=== PATIENT | male | born 1960 | race Caucasian/White ===

== ENCOUNTER → 2016-05-01 | Outpatient (CLI) | payer MEDICARE, MEDICAID ==
[~2016-05-01] MED LIST: AC325T PO; ACET-93 PO; AMOX500C2 PO; ARIP10TA2 PO; BENZ2TAB6 PO; BETH50TA PO; CALC-671 PO; CALC500T7 PO; CLAR-19 PO; DESM0.2T2 PO; DIVA-20; DIVA250T12 PO; DIVA250T2; DIVA500T15 PO; DOCU100C PO; GUAI100S PO; HYDR-3812 PO; LACT1CAP39 PO; LORA10CA PO; LORA10TA2; LUBI24CA7; NAPR500T3 PO; NF-FLON16G NSEACH; NITR-65 PO; OMEP20CA12 PO; PNV1TABL61 PO; POLY17PO23 GT; POLY255P PO; PREG25CA PO; PREG50C PO; SENN1TAB76 PO; TRIH5TAB2 PO; [UNRECOGNIZED DRUG - CODE] PO; [UNRECOGNIZED DRUG - OTHER]; [UNRECOGNIZED DRUG - OTHER] OU
--- NOTE | 2016-05-01 11:20 | Diagnostic Imaging Report ---
PROCEDURE: US Gallbladder. TECHNIQUE: Multiple real-time grayscale images were obtained over the right upper quadrant in various projections. INDICATION: Abdominal pain. FINDINGS: The pancreas is obscured. The liver demonstrate no focal mass. Hepatopedal flow in the portal vein seen. The CBD is obscured by bowel gas. The gallbladder is not seen. This is uncertain if the gallbladder is obscured or potentially related to prior cholecystectomy. The patient is unable to give a history due to the mental condition. The right kidney is 14 CM in length. Cystic areas in the right kidney are seen. These are potentially in part related to renal cysts however hydronephrosis is not ruled out. No fluid collection is noted in the upper right abdomen. IMPRESSION: 1. The gallbladder is not seen. 2. Simple appearing cystic areas in the renal pelvis are favored to be related to parapelvic cysts rather than hydronephrosis. The distinction is uncertain based on this exam however. 3. Enhanced CT scan of the abdomen is recommended to further evaluate the gallbladder area and the right kidney. Report was faxed to office of Dr Noe by molly at 11:19 am. Dictated by: Dictated on workstation # [id number]
== END ==
LOC: RAD 09:38
PROVIDERS: ATTEND Family Medicine
DX: N28.1 Cyst of kidney, acquired (principal); R10.84 Generalized abdominal pain
CPT/HCPCS: 76705

== ENCOUNTER → 2016-05-06 | Outpatient (CLI) | payer MEDICARE, MEDICAID ==
--- NOTE | 2016-05-06 13:20 | Diagnostic Imaging Report ---
PROCEDURE: CT abdomen and pelvis without contrast. TECHNIQUE: Multiple contiguous axial images were obtained through the abdomen and pelvis without the use of intravenous contrast. INDICATION: Generalized abdominal pain with nausea and vomiting. COMPARISON: None. DISCUSSION: The visualized lung bases are unremarkable. Subsegmental atelectasis is present, incidental. Normal heart size. No pleural or pericardial fluid. Contracted stone-filled gallbladder. No secondary inflammatory changes are otherwise identified by CT. Examination of the liver is somewhat limited due to respiratory motion. The liver, stomach, spleen, pancreas, and adrenal glands are unremarkable. Severe bilateral hydronephrosis and hydroureter. The urinary bladder is markedly distended. Suspect postoperative changes of the prostate gland. No renal stone identified. The aorta is normal in caliber. Marked constipation is present. No obstruction, pneumatosis, or pneumoperitoneum. No ascites or pathologically enlarged lymph nodes identified. No acute osseous abnormality identified. Postoperative changes of the right hip are incompletely viewed. IMPRESSION: 1. Severe bilateral hydronephrosis and hydroureter with distention of the urinary bladder. Recommend clinical correlation. No stone identified. 2. Marked constipation. 3. Contracted stone-filled gallbladder. Dictated by: Dictated on workstation # [id number]
== END ==
LOC: RAD 12:00
PROVIDERS: ATTEND Family Medicine
DX: R10.11 Right upper quadrant pain (principal); R74.8 Abnormal levels of other serum enzymes
CPT/HCPCS: 74176

== ENCOUNTER 2016-05-30 11:28 | Emergency (ER) | payer MEDICARE, MEDICAID ==
[~2016-05-30] VITALS: Ht 167.6 cm; Wt 83.9 kg
[~2016-05-30 11:28] MED LIST changes: -ACET-93 PO; -AMOX500C2 PO; -CLAR-19 PO; -DIVA250T12 PO; -DIVA500T15 PO; -NITR-65 PO; -OMEP20CA12 PO; -POLY255P PO
[2016-05-30] MEDS ORDERED: NS IV 1000 ML 1,000 ML IV ONE (12:32)
[2016-05-30 12:37] LABS: BASOPHILS % (AUTO) 0 % (0-10); EOSINOPHILS # (AUTO) 0.1 10^3/uL (0.0-0.3); EOSINOPHILS % (AUTO) 3 % (0-10); LYMPHOCYTES # (AUTO) 0.5 X 10^3 (1.0-4.0); LYMPHOCYTES % (AUTO) 11 % (12-44); MEAN CORPUSCULAR HEMOGLOBIN 32 PG (25-34); MEAN CORPUSCULAR HGB CONC 34 G/DL (32-36); MEAN CORPUSCULAR VOLUME 96 FL (80-99); MEAN PLATELET VOLUME 10.5 FL (7.4-10.4); MONOCYTES # (AUTO) 0.6 X 10^3 (0.0-1.0); MONOCYTES % (AUTO) 12 % (0-12); NEUTROPHILS # (AUTO) 3.5 X 10^3 (1.8-7.8); NEUTROPHILS % (AUTO) 74 % (42-75); PLATELET COUNT 144 10^3/uL (130-400); RED BLOOD COUNT 3.37 10^6/uL (4.35-5.85); RED CELL DISTRIBUTION WIDTH 13.7 % (10.0-14.5); WHITE BLOOD COUNT 4.8 10^3/uL (4.3-11.0)
--- NOTE | 2016-05-30 12:46 | ED Abdominal Pain ---
General Chief Complaint: Abdominal/GI Problems Stated Complaint: DIARRHEA/ABD PAIN FEVER Nursing Triage Note: PT STAFF REPORTS PT WAS VOMITING AND COMPLAINING OF ABDOMINAL PAIN YESTERDAY. PT DENIES ABDOMINAL PAIN OR VOMITING TODAY BUT DOES HAVE LOW GRADE FEVER. PT IS SCHEDULED FOR GALLBLADDER REMOVAL NEXT FRIDAY DUE TO POSSIBLE GALLSTONES. Sepsis Screen: Possible Sepsis Risk History of Present Illness Time Seen By Provider: 12:30 Initial Comments Evaluation for diarrhea that began yesterday evening. Last episode approximately one hour prior to arrival. Patient is scheduled to have a cholecystectomy on 06/07/[address] Beatty. In addition the caregivers report that the left foot has been swollen today. They denies injury to the foot. Timing/Duration: 12-24 Hours Severity/Quality: Moderate Location: Generalized Abdomen Radiation: No Radiation Activities at Onset: None Modifying Factors: Improves With Lying down, Improves With Resting Associated Symptoms: Denies Symptoms Allergies and Home Medications Allergies Coded Allergies: lorazepam (Unverified Adverse Reaction, Intermediate, HYPERACTIVITY, 01/25) Home Medications Acetaminophen 325 Mg Tab, 500 MG PO PRN, (Reported) [place] 650 Mg Tablet, 650 MG PO QID, (Reported) Aripiprazole 10 Mg Tablet, 10 MG PO DAILY, (Reported) Benztropine Mesylate 2 Mg Tablet, 2 MG PO BID, (Reported) Bethanechol Chloride 50 Mg Tablet, 50 MG PO Q8H, (Reported) Calcium Carbonate 200 Mg Tab.chew, 200 MG PO PRN PRN for HEARBURN, (Reported) Calcium Carbonate/Vitamin D3 1 Each Tablet, (Reported) Desmopressin Acetate 0.2 Mg Tablet, 3 TAB PO HS, (Reported) Divalproex Sodium 500 Mg Tablet., (Reported) Divalproex Sodium 250 Mg Tablet., (Reported) Docusate Sodium 100 Mg Capsule, (Reported) Fluticasone Propionate 50 Mcg/16 G [place], 2 SPRAY NS HS PRN for PRN, (Reported) Lactobacillus Rhamnosus 1 Cap Capsule, 1 CAP PO DAILY PRN for stools, (Reported) Loratadine 10 Mg Capsule, 10 MG PO HS, (Reported) Naproxen 500 Mg Tablet, 500 MG PO BID, #20 Prescribed by: TONYA BLOOD on 10/25/15 1259 Nitrofurantoin Monohyd/M-Cryst 100 Mg Capsule, 1 TAB PO BID for 7 Days, #14 Prescribed by: GENE CASTORENA on 05/30/16 1532 Pnv With Ca,No.72/Iron,Carb/Fa 1 Each Tablet, 1 EACH PO DAILY, (Reported) Polyethylene Glycol 17 Gm Pack, 17 GM GT DAILY, (Reported) Pregabalin 50 Mg Capsule, 50 MG PO BID, (Reported) Pregabalin 25 Mg Capsule, 25 MG PO HS, (Reported) Senna 1 Tab Tablet, (Reported) Trihexyphenidyl Hcl 5 Mg Tablet, 5 MG PO DAILY, (Reported) [Opcon A Opthalmic] , 2 DROPS OU PRN, (Reported) Review of Systems Constitutional: no symptoms reported, see HPI EENTM: No Symptoms Reported, See HPI Respiratory: No Symptoms Reported, See HPI Cardiovascular: See HPI Gastrointestinal: See HPI, Abdomen Distended, Abdominal Pain, Diarrhea, Nausea , Poor Appetite, Denies Vomiting Genitourinary: No Symptoms Reported, See HPI Musculoskeletal: see HPI, joint swelling (left foot) Skin: no symptoms reported, see HPI Psychiatric/Neurological: No Symptoms Reported, See HPI Endocrine: No Symptoms Reported, See HPI Hematologic/Lymphatic: No Symptoms Reported, See HPI All Other Systems Reviewed Negative Unless Noted: Yes Past Vlklhux-Bomroz-Dhywye Hx Patient Social History Alcohol Use: Denies Use Recreational Drug Use: No Smoking Status: Never a Smoker Recent Foreign Travel: No Contact w/Someone Who Travel: No Recent Infectious Disease Expo: No Recent Hopitalizations: No Immunizations Up To Date Tetanus Booster (TDap): Less than 5yrs Date of Influenza Vaccine: Jan 08, 2016 Seasonal Allergies Seasonal Allergies: Yes Surgeries HX Surgeries: Yes (SURGERY ON ALL LEFT TOES, COLONOSCOPY) Surgeries: Orthopedic Respiratory Hx Respiratory Disorders: No Cardiovascular Hx Cardiac Disorders: No Neurological Hx 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, postpolio syndrome) Neurological Disorders: Developmental Disorder, Seizure Disorder Genitourinary Hx Genitourinary Disorders: No Gastrointestinal Hx Gastrointestinal Disorders: Yes Gastrointestinal Disorders: Chronic Constipation, Chronic Diarrhea Musculoskeletal Hx Musculoskeletal Disorders: Yes (POLIO) Endocrine Hx Endocrine Disorders: No HEENT HX ENT Disorders: No Cancer Hx Cancer: No Psychosocial Hx Psychiatric Problems: Yes (MR, SEVERE ADAPTIVE BEHAVIOR DISORDER, CONVULSIONS, DELUSIONAL DISORDER) Behavioral Health Disorders: Anxiety Integumentary HX Skin/Integumentary Disorder: No Blood Transfusions Hx Blood Disorders: No Adverse Reaction to a Blood Tr: No Physical Exam Vital Signs VS - Last 72 Hours, by Label 05/30/16 12:06 Temp 99.7 Pulse 108 Resp 20 B/P (MAP) 137/87 Pulse Ox 93 Capillary Refill : Less Than 3 Seconds General Appearance: WD/WN, no apparent distress HEENT: PERRL/EOMI, normal ENT inspection, TMs normal, pharynx normal Neck: non-tender, full range of motion, supple, normal inspection Respiratory: chest non-tender, lungs clear Cardiovascular: normal peripheral pulses, regular rate, rhythm, no murmur Gastrointestinal: normal bowel sounds, non tender, soft, distended, No guarding , No rebound, No tenderness, other (negative Farfan sign) Extremities: normal range of motion, non-tender Neurologic/Psychiatric: no motor/sensory deficits, alert Skin: normal color, warm/dry, other (up to 2+ pitting edema with moderate warmth, no erythema. No lacerations, ecchymosis or abrasions present. Sensation is intact and symmetric with the right foot) Progress/Results/Core Measures Results/Orders Lab Results Laboratory Tests Test 05/30/16 12:03 05/30/16 12:20 05/30/16 14:39 Range/Units White Blood Count 4.8 4.3-11.0 10^3/uL Red Blood Count 3.37 L 4.35-5.85 10^6/uL Hemoglobin 10.8 L 13.3-17.7 G/DL Hematocrit 32 L 40-54 % Mean Corpuscular Volume 96 80-99 FL Mean Corpuscular Hemoglobin 32 25-34 PG Mean Corpuscular Hemoglobin Concent 34 32-36 G/DL Red Cell Distribution Width 13.7 10.0-14.5 % Platelet Count 144 130-400 10^3/uL Mean Platelet Volume 10.5 H 7.4-10.4 FL Neutrophils (%) (Auto) 74 42-75 % Lymphocytes (%) (Auto) 11 L 12-44 % Monocytes (%) (Auto) 12 0-12 % Eosinophils (%) (Auto) 3 0-10 % Basophils (%) (Auto) 0 0-10 % Neutrophils # (Auto) 3.5 1.8-7.8 X 10^3 Lymphocytes # (Auto) 0.5 L 1.0-4.0 X 10^3 Monocytes # (Auto) 0.6 0.0-1.0 X 10^3 Eosinophils # (Auto) 0.1 0.0-0.3 10^3/uL Basophils # (Auto) 0.0 0.0-0.1 10^3/uL Erythrocyte Sedimentation Rate 45 H 0-30 MM/HR Sodium Level 143 135-145 MMOL/L Potassium Level 3.5 L 3.6-5.0 MMOL/L Chloride Level 105 98-107 MMOL/L Carbon Dioxide Level 30 21-32 MMOL/L Anion Gap 8 5-14 MMOL/L Blood Urea Nitrogen 25 H 7-18 MG/DL Creatinine 1.41 H 0.60-1.30 MG/DL Estimat Glomerular Filtration Rate 52 BUN/Creatinine Ratio 18 Glucose Level 111 H 70-105 MG/DL Calcium Level 8.1 L 8.5-10.1 MG/DL Total Bilirubin 0.5 0.1-1.0 MG/DL Aspartate Amino Transf (AST/SGOT) 54 H 5-34 U/L Alanine Aminotransferase (ALT/SGPT) 91 H 0-55 U/L Alkaline Phosphatase 146 H 40-136 U/L C-Reactive Protein High Sensitivity 15.00 H 0.00-0.50 MG/DL Total Protein 5.8 L 6.4-8.2 G/DL Albumin 3.2 3.2-4.5 G/DL Amylase Level 59 25-125 U/L Lipase 13 8-78 U/L Urine Color YELLOW Urine Clarity CLEAR Urine pH 6 5-9 Urine Specific [place] 1.010 L 1.016-1.022 Urine Protein 1+ H NEGATIVE Urine Glucose (UA) NEGATIVE NEGATIVE Urine Ketones NEGATIVE NEGATIVE Urine Nitrite NEGATIVE NEGATIVE Urine Bilirubin NEGATIVE NEGATIVE Urine Urobilinogen NORMAL NORMAL MG/DL Urine Leukocyte Esterase 2+ H NEGATIVE Urine RBC (Auto) 1+ H NEGATIVE Urine RBC RARE /HPF Urine WBC 10-25 H /HPF Urine Squamous Epithelial Cells 2-5 /HPF Urine Crystals NONE /LPF Urine Bacteria TRACE /HPF Urine Casts NONE /LPF Urine Mucus NEGATIVE /LPF Urine Culture Indicated YES My Orders Orders - GENE CASTORENA Amylase (05/30/16 12:32) Cbc With Automated Diff (05/30/16 12:32) Comprehensive Metabolic Panel (05/30/16 12:32) Hs C Reactive Protein (05/30/16 12:32) Lipase (05/30/16 12:32) Ua Culture If Indicated (05/30/16 12:32) Erythrocyte Sedimentation Rate (05/30/16 12:32) Saline Lock/Iv-Start (05/30/16 12:32) Ns Iv 1000 Ml (Sodium Chloride 0.9%) (05/30/16 12:32) Bismuth Subsalicylate Chew Tab (Pepto-Bi (05/30/16 13:45) Foot, Left, 3 Views (05/30/16 13:53) Urine Culture (05/30/16 14:39) Ceftriaxone Injection (Rocephin Injectio (05/30/16 15:30) Medications Given in ED Current Medications Medications Dose Ordered Sig/Ewelina Route Start Time Stop Time Status Last Admin Dose Admin Bismuth Subsalicylate 1 TAB Q1H PRN PO 05/30/16 13:45 05/30/16 16:48 DC 05/30/16 14:00 262 MG Ceftriaxone Sodium 1,000 mg ONCE ONCE IV 05/30/16 15:30 05/30/16 15:31 DC 05/30/16 15:37 1,000 MG Sodium Chloride 1,000 ml @ 0 mls/hr Q0M ONCE IV 05/30/16 12:32 05/30/16 12:34 DC 05/30/16 14:04 0 MLS/HR Vital Signs/I&O Vital Sign - Last 12Hours 05/30/16 12:06 Temp 99.7 Pulse 108 Resp 20 B/P (MAP) 137/87 Pulse Ox 93 Blood Pressure Mean: 104 Progress Note : Time: 12:30 Progress Note Initial evaluation completed, recommended labs and CT abdomen/pelvis 1245 WBC 4.8, hemoglobin 10.8, hematocrit 32, ESR 45. Sodium 143, potassium 3.5 , urine 25, creatinine 1.41, estimated GFR 52 glucose 111, C-reactive protein 15 , AST 54 a LT 91 alkaline phosphatase 146, amylase 59, lipase 13 1350 Pepto-Bismol one tab by mouth for diarrhea. 1400 x-ray of the left foot show no acute changes. Patient hasn't had no episodes diarrhea since admission to the emergency department. 1500 discussed the patient's laboratory findings and exam with Dr. Noe by phone. She reports that he was recently on Levaquin for urinary tract infection and treated by Dr. Keyes. Agreed with treatment plan of Rocephin 1 g IV prior to discharge and Macrobid 100 mg by mouth twice a day for outpatient treatment. She like to have him follow up next week with her, the patient's caregivers verbalized understanding. Pt had no vomiting or diarrhea throughout his ED visit. Diagnostic Imaging Diagonstic Imaging: Xray, CT, Ultrasound Plain Films/CT/US/NM/MRI: abdomen, pelvis, other (Left foot) Comments NAME: [facility] REC#: [id number] PT STATUS: REG CLI : 1960 PHYSICIAN: SETH NOE DO ADMIT DATE: 05/06/16/RAD Signed Date of Exam: 05/06/16 CT ABDOMEN/PELVIS WO PROCEDURE: CT abdomen and pelvis without contrast. TECHNIQUE: Multiple contiguous axial images were obtained through the abdomen and pelvis without the use of intravenous contrast. INDICATION: Generalized abdominal pain with nausea and vomiting. COMPARISON: None. DISCUSSION: The visualized lung bases are unremarkable. Subsegmental atelectasis is present, incidental. Normal heart size. No pleural or pericardial fluid. Contracted stone-filled gallbladder. No secondary inflammatory changes are otherwise identified by CT. Examination of the liver is somewhat limited due to respiratory motion. The liver, stomach, spleen, pancreas, and adrenal glands are unremarkable. Severe bilateral hydronephrosis and hydroureter. The urinary bladder is markedly distended. Suspect postoperative changes of the prostate gland. No renal stone identified. The aorta is normal in caliber. Marked constipation is present. No obstruction, pneumatosis, or pneumoperitoneum. No ascites or pathologically enlarged lymph nodes identified. No acute osseous abnormality identified. Postoperative changes of the right hip are incompletely viewed. IMPRESSION: 1. Severe bilateral hydronephrosis and hydroureter with distention of the urinary bladder. Recommend clinical correlation. No stone identified. 2. Marked constipation. 3. Contracted stone-filled gallbladder. Dictated by: Dictated on workstation # [id number] Dict: 05/06/16 1314 Trans: 05/06/16 1940 [id number] Interpreted by: RASHAD PALACIOS MD Electronically signed by:RASHAD PALACIOS MD 05/06/161942 NAME: [facility] REC#: [id number] PHYSICIAN: SETH NOE DO CC: SETH NOE DO; BRADLEY NAQVI MD Page 2 of 2 RADIOLOGY REPORT VIA [facility], [facility]. [place], [place] CC: SETH NOE DO; BRADLEY NAQVI MD Page 1 of 2 RADIOLOGY REPORT NAME: [facility] REC#: [id number] PT STATUS: REG CLI : 1960 PHYSICIAN: SETH NOE DO ADMIT DATE: 05/01/16/RAD Signed Date of Exam: 05/01/16 US GALLBLADDER [id number] PROCEDURE: US Gallbladder. TECHNIQUE: Multiple real-time grayscale images were obtained over the right upper quadrant in various projections. INDICATION: Abdominal pain. FINDINGS: The pancreas is obscured. The liver demonstrate no focal mass. Hepatopedal flow in the portal vein seen. The CBD is obscured by bowel gas. The gallbladder is not seen. This is uncertain if the gallbladder is obscured or potentially related to prior cholecystectomy. The patient is unable to give a history due to the mental condition. The right kidney is 14 CM in length. Cystic areas in the right kidney are seen. These are potentially in part related to renal cysts however hydronephrosis is not ruled out. No fluid collection is noted in the upper right abdomen. IMPRESSION: 1. The gallbladder is not seen. 2. Simple appearing cystic areas in the renal pelvis are favored to be related to parapelvic cysts rather than hydronephrosis. The distinction is uncertain based on this exam however. 3. Enhanced CT scan of the abdomen is recommended to further evaluate the gallbladder area and the right kidney. Report was faxed to office of Dr Noe by franco at 11:19 am. Dictated by: Dictated on workstation # [id number] Dict: 05/01/16 1103 Trans: 05/01/16 1123 FRANCO [id number] Interpreted by: BRADLEY NAQVI MD Electronically signed by:BRADLEY NAQVI MD 05/01/16 1126 NAME: [facility] REC#: [id number] PT STATUS: REG ER : 1960 PHYSICIAN: GENE CASTORENA ADMIT DATE: 05/30/16/ER Draft Date of Exam:05/30/16 FOOT, LEFT, 3 VIEWS INDICATION: Pain. Swelling. Fever. COMPARISON: 11/10/2015. FINDINGS: Three radiographic views of the left foot were obtained. There is diffuse soft tissue swelling. Old healed oblique fracture involving the distal margins of the second metatarsal is noted. No acute-appearing bony abnormalities are identified. Joint spaces are maintained. No lytic or blastic lesions are identified. Deformity of the fifth toe is also noted, but is chronic. No unexpected radiopaque foreign bodies are seen. IMPRESSION: 1. Moderate soft tissue swelling of the left foot, but no radiographic evidence of acute fracture or dislocation. 2. Old healed fracture of the second metatarsal. Dictated on workstation # [id number] Dict: 05/30/16 1422 Trans: 05/30/16 1431 [id number] Interpreted by: BRIAN FIORE Electronically signed by: Departure Impression Impression: Primary Impression: Urinary tract infection Qualified Codes: N30.01 - Acute cystitis with hematuria Additional Impression: Diarrhea Qualified Codes: R19.7 - Diarrhea, unspecified Disposition: HOME, SELF-CARE Condition: Improved Departure-Patient Inst. Decision time for Depature: 15:00 Referrals: SETH NOE DO (PCP/Family) Primary Care Physician Patient Instructions: Gastritis (DC), Urinary Tract Infection, Adult (DC) Add. Discharge Instructions: All discharge instructions reviewed with patient and/or family. Voiced understanding. Clear liquid diet 4 hours then a bland diet for 2 days. Return to emergency department or see Dr. NOE for changes in symptoms. Follow up on May [address] Noe. Keep at Walt wrap on left foot and ankle, keep elevated. Return to emergency department or seek care if left foot becomes more swollen, red, or painful. Scripts Nitrofurantoin Monohyd/M-Cryst (Macrobid 100 mg Capsule) 100 Mg Capsule 1 TAB PO BID for 7 Days, #14 CAP Prov: GENE CASTORENA 05/30/16 Copy Copies To 1: SETH NOE DO Copies To 2: ANGELA BEATTY MD, AMY ARNP May 30, 2016 12:46
[2016-05-30 12:50] LABS: ALBUMIN 3.2 G/DL (3.2-4.5); BILIRUBIN,TOTAL 0.5 MG/DL (0.1-1.0); CALCIUM 8.1 MG/DL (8.5-10.1); CREATININE SERUM 1.41 MG/DL (0.60-1.30); POTASSIUM 3.5 MMOL/L (3.6-5.0); TOTAL PROTEIN 5.8 G/DL (6.4-8.2)
[2016-05-30 13:07] LABS: ERYTHROCYTE SEDIMENTATION RATE 45 MM/HR (0-30)
[2016-05-30] MEDS ORDERED: BISMUTH SUBSALICYLATE 262 MG (PEPTO BISMOL) TABLET PO PRN (13:45)
--- NOTE | 2016-05-30 14:32 | Diagnostic Imaging Report ---
INDICATION: Pain. Swelling. Fever. COMPARISON: 11/10/2015. FINDINGS: Three radiographic views of the left foot were obtained. There is diffuse soft tissue swelling. Old healed oblique fracture involving the distal margins of the second metatarsal is noted. No acute-appearing bony abnormalities are identified. Joint spaces are maintained. No lytic or blastic lesions are identified. Deformity of the fifth toe is also noted, but is chronic. No unexpected radiopaque foreign bodies are seen. IMPRESSION: 1. Moderate soft tissue swelling of the left foot, but no radiographic evidence of acute fracture or dislocation. 2. Old healed fracture of the second metatarsal. Dictated by: Dictated on workstation # [id number]
[2016-05-30 14:45] LABS: BILIRUBIN,URINE NEGATIVE (NEGATIVE); KETONES,URINE NEGATIVE (NEGATIVE); LEUKOCYTE ESTERASE ,URINE 2+ (NEGATIVE); NITRITE,URINE NEGATIVE (NEGATIVE); PH,URINE 6 (5-9); PROTEIN,URINE 1+ (NEGATIVE); UROBILINOGEN,URINE NORMAL (NORMAL)
[2016-05-30] MEDS ORDERED: cefTRIAXone 1 GM (ROCEPHIN) VIAL IV ONE (15:30)
[2016-05-30] MEDS ORDERED: NITR-65 PO (15:32)
[2016-05-30 16:48] VITALS: BP 120/70
--- OUTSIDE RECORDS SUMMARY | 2016-06-23 06:13 | XMS REPORT ---
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 Problem Unspecified psychosis 298.9 Active Assessment Encounter for dental examination Z01.20 Active Problem Other dysfunctions of sleep stages or arousal from sleep 307.47 Active Problem Unspecified episodic mood disorder 296.90 Active Problem Encounter for dental examination Z01.20 Active Problem Acute pain due to trauma 338.11 Active Problem Unspecified mental retardation 319 Active Problem Delusional disorder 297.1 Active Problem Impulse control disorder, unspecified 312.30 Active Medications Medication Code System Code Instructions Start Date End Date Status Dosage Depakote [facility] [address]-82 250 MG Orally Once a day 1 tablet Bethanechol Chloride [facility] [address]-44 50 MG Orally 4 times a day 1 tablet on an empty stomach Calcium 600 + D [facility] 29322-36757 600-200 MG-UNIT Orally not defined Acetaminophen [facility] [address]-84 500 mg Nov 20, 2012 1 Tablet by Oral route q4hrs prn pain Opcon-A [facility] 16324-24157 0.53392-9.315 % Nov 20, 2012 1-2 drop by opthalmac route prn redness and swelling of eyes from allergies Lyrica [facility] [address]-60 50 MG Orally Three times a day 1 capsule Polyethylene Glycol 3350 [facility] [address]-59 17 gram Apr 14, 2014 2 times per day Xanax [facility] [address]-96 1 MG Orally Once a day prior to medical appts May 27, 2014 1 tablet Lyrica [facility] 53822828653 25 MG TAKE 1 CAPSULE ORALLY EVERY EVENING 1 Plus 1 NDC 0 not defined Loratadine [facility] [address]-49 10 mg Nov 20, 2011 1 Tablet by Oral route 1 time per day Culturelle [facility] 136[address]92 Apr 14, 2014 by oral route po qd prn for healthy BMs Nystatin [facility] [address]-80 840628 UNIT/GM Externally Twice a day 1 application to affected area Trihexyphenidyl HCl [facility] [address]-93 5 MG Orally 2 times a day 1 tablet with meals Abilify [facility] [address]-92 10 MG Orally Once a day 1 tablet Ketoconazole [facility] [address]-79 2 % Externally not defined Tums [facility] [address]-43 500 MG Orally Four times a day 1 tablet Docusate Sodium [facility] [address]-47 100 mg Nov 20, 2011 1 Capsule by Oral route 2 times per day Depakote [facility] [address]-15 500 MG Orally Twice a day 1 tablet Senna-S [facility] [address]-69 Orally 2 times a day Apr 14, 2014 2 tablets fluticasone [facility] [address]-73 50 mcg/actuation Apr 14, 2014 2 Nasal [place] by Nasal route 1 time per day [facility] Procedures Procedure Coding System Code Date PROPHYLAXIS - ADULT CPT-4 D1110 Mar 16, 2015 TOPICAL FLUORIDE VARNISH CPT-4 D1206 Mar 16, 2015 PERIODIC ORAL EXAMINATION CPT-4 D0120 Mar 16, 2015 Vital Signs Date/Time: Mar 16, 2015 Blood Pressure Diastolic 82 mmHg Blood Pressure Systolic 124 mmHg Cardiac Monitoring Heart Rate 95 bpm Results No Known Results Summary Purpose eClinicalWorks Submission
--- OUTSIDE RECORDS SUMMARY | 2016-06-23 06:13 | XMS REPORT ---
Author Author ARGENTINA BARKER [facility] eClinicalWorks Address Unknown Phone Unavailable Care Team Providers Care Platen Press Feeder Name Role Phone ARGENTINA BARKER CP Unavailable Allergies, Adverse Reactions, Alerts Substance Reaction Event Type Ativan "hyper" Drug Allergy Problems Problem Type Condition Code Onset Dates Condition Status Assessment Unspecified mood [affective] disorder F39 Active Problem Unspecified psychosis 298.9 Active Problem Encounter for long-term (current) use of other medications V58.69 Active Assessment Unspecified intellectual disabilities F79 Active Assessment Psychosis F29 Active Problem Unspecified episodic mood disorder 296.90 Active Problem Delusional disorder 297.1 Active Problem Other dysfunctions of sleep stages or arousal from sleep 307.47 Active Problem Unspecified mental retardation 319 Active Problem 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 [address]-24 250 MG Orally Once a day [address] [facility] [address]-01 10 MG Orally Once a day [address] [facility] 89426993760 25 MG TAKE 1 CAPSULE ORALLY EVERY EVENING Calcium 600 + D [facility] 36906-95256 600-200 MG-UNIT Orally not defined Polyethylene Glycol 3350 [facility] [address]-43 17 gram Apr 14, 2014 2 times per day Acetaminophen [facility] [address]-81 500 mg Nov 20, 2012 1 Tablet by Oral route q4hrs prn pain Lyrica [facility] [address]-28 50 MG Orally Three times a day [address] [facility] [address]-47 1 MG Orally Once a day prior to medical appts May 27, [address] [facility] [address]-50 5 MG Orally 2 times a day 1 tablet with meals Opcon-A [facility] 00668-[address]35 0.57473-5.315 % Nov 20, 2012 1-2 drop by opthalmac route prn redness and swelling of eyes from allergies Tums [facility] [address]-70 500 MG Orally Four times a day 1 tablet 1 Plus 1 NDC [address] [facility] [address]-79598 Apr 14, 2014 by oral route po qd prn for healthy BMs fluticasone [facility] [address]-91 50 mcg/actuation Apr 14, 2014 2 Nasal [place] by Nasal route 1 time per day qHS Bethanechol Chloride [facility] [address]-43 50 MG Orally 4 times a day 1 tablet on an empty stomach Loratadine [facility] [address]-58 10 mg Nov 20, 2011 1 Tablet by Oral route 1 time per day Ketoconazole [facility] [address]-09 2 % Externally not defined Tussin [facility] [address]609-38818 100 MG/5ML Orally every 4 hrs 10 ml as needed Senna-S [facility] [address]-46 Orally 2 times a day Apr 14, [address] [facility] [address]-66 500 MG Orally Twice a day [address] [facility] [address]-97 100 mg Nov 20, 2011 1 Capsule by Oral route 2 times per day Nystatin [facility] [address]-15 725542 UNIT/GM Externally Twice a day 1 application to affected area Procedures Procedure Coding System Code Date Office Visit, Est Pt., Level 3 CPT-4 30456 Dec 27, 2014 Vital Signs Date/Time: Dec 27, 2014 Blood Pressure Systolic 120 mmHg Cardiac Monitoring Heart Rate 80 bpm Height 70 in Blood Pressure Diastolic 80 mmHg Results No Known Results Summary Purpose eClinicalWorks Submission
--- OUTSIDE RECORDS SUMMARY | 2016-06-23 06:13 | XMS REPORT ---
Author Author JOVANNY BURGOS eClinicalWorks Address Unknown Phone Unavailable Care Team Providers Care Afterschool Name Role Phone JOVANNY BURGOS CP Unavailable Allergies No Known Allergies Problems Problem Type Condition ICD-9 Code Onset Dates Condition Status Assessment Dental examination V72.2 Active Problem Unspecified psychosis 298.9 Active Problem Encounter for long-term (current) use of other medications V58.69 Active Problem Unspecified episodic mood disorder 296.90 Active Problem Delusional disorder 297.1 Active Problem Other dysfunctions of sleep stages or arousal from sleep 307.47 Active Problem Unspecified mental retardation 319 Active Problem 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
--- OUTSIDE RECORDS SUMMARY | 2016-06-23 06:13 | XMS REPORT ---
Author Author ANNA MULLER Organization eClinicalWorks Address Unknown Phone Unavailable Care Team Providers Care Program Management Manager Name Role Phone ANNA MULLER CP Unavailable Allergies No Known Allergies Problems Problem Type Condition Code Onset Dates Condition Status Problem Unspecified psychosis 298.9 Active Problem Encounter [...] trauma 338.11 Active Medications No Known Medications Results No Known Results Summary Purpose eClinicalWorks Submission
--- OUTSIDE RECORDS SUMMARY | 2016-06-23 06:13 | XMS REPORT ---
Author TERRA Crawley [facility] eClinicalWorks Address Unknown Phone Unavailable Care Team Providers Care Public Health Director Name Role Phone TERRA GRAF CP Unavailable Allergies No Known Allergies Problems Problem Type Condition Code Onset Dates Condition Status Assessment Encounter for PPD test Z11.1 Active Problem Unspecified psychosis 298.9 Active Problem Encounter for long-term (current) use of other medications V58.69 Active Assessment Encounter for immunization Z23 Active Problem Unspecified episodic mood disorder 296.90 Active Problem Delusional disorder 297.1 Active Problem Other dysfunctions of sleep stages or arousal from sleep 307.47 Active Problem Unspecified mental retardation 319 Active Problem 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
--- OUTSIDE RECORDS SUMMARY | 2016-06-23 06:13 | XMS REPORT ---
Author TERRA Crawley [facility] eClinicalWorks Address Unknown Phone Unavailable Care Team Providers Care Motorcycle Mechanic Name Role Phone TERRA GRAF CP Unavailable Allergies No Known Allergies Problems Problem Type Condition Code Onset Dates Condition Status Assessment Encounter for immunization Z23 Active Problem Unspecified psychosis 298.9 Active Problem [...] Medications Procedures Procedure Coding System Code Date SINGLE IMMUNIZATION ADMIN CPT-4 72148 Mar 13, 2015 HEP B (ADULT) CPT-4 77364 Mar 13, 2015 Results No Known Results Immunizations Vaccine Administration Date HEP B (ADULT) Mar 13, 2015 Summary Purpose eClinicalWorks Submission
--- OUTSIDE RECORDS SUMMARY | 2016-06-23 06:14 | XMS REPORT ---
Author Author ARGENTINA BARKER Organization eClinicalWorks Address Unknown Phone Unavailable Care Team Providers Care Html Web Developer Name Role Phone ARGENTINA BARKER CP Unavailable Allergies No Known Allergies Problems Problem Type Condition ICD-9 Code Onset Dates Condition Status Problem Unspecified [...]
--- OUTSIDE RECORDS SUMMARY | 2016-06-23 06:14 | XMS REPORT ---
Author Author ARGENTINA BARKER Organization eClinicalWorks Address Unknown Phone Unavailable Care Team Providers Care Civil Lawyer Name Role Phone ARGENTINA BARKER Unavailable Allergies No Known Allergies Problems Problem [...] Instructions Start Date End Date Status Dosage Lyrica NDC [address]-11 25 MG TAKE 1 CAPSULE ORALLY EVERY EVENING Lyrica NDC [address]-70 50 MG TAKE 1 CAPSULE ORALLY EVERY MORNING Results No Known Results Summary Purpose eClinicalWorks Submission
--- OUTSIDE RECORDS SUMMARY | 2016-06-23 06:14 | XMS REPORT ---
Author JOVANNY Venegas eClinicalWorks Address Unknown Phone Unavailable Care Team Providers Care Councillor [employer] Name Role Phone JOVANNY BURGOS CP Unavailable [...] Instructions Start Date End Date Status Dosage Bethanechol Chloride [facility] [address]-04 50 MG Orally 4 times a day 1 tablet on an empty stomach Benztropine Mesylate [facility] [address]-07 2 MG Orally Once a day 1 tablet at bedtime fluticasone [facility] [address]-30 50 mcg/actuation Apr 14, 2014 2 Nasal [place] by Nasal route 1 time per day qHS [place] [facility] 15[address]-26052 650 MG Orally not defined Desmopressin Acetate [facility] [address]-15 0.2 MG Orally 3 times a day 1 tablet Calcium 600 + D [facility] 72607-38213 600-200 MG-UNIT Orally not defined Abilify [facility] [address]-09 10 mg Orally Once a day 1 tablet Senna-S [facility] [address]-20 Orally 2 times a day Apr 14, [address] [facility] [address]-27 2 % Externally not defined Polyethylene Glycol 3350 [place] 0 17 gram Apr 14, 2014 2 times per day Triple Antibiotic [facility] [address]-53 5-400-5000 Externally Once a day 1 application to affected area Benadryl [facility] [address]-70 25 MG Orally every 6 hrs 1 capsule as needed Pepto-Bismol [facility] 53281-70154 262 MG Orally 8 time(s) a day 2 tablets as needed Lyrica [facility] [address]-11 25 MG [place] to sign for Dr. Link TAKE 1 CAPSULE ORALLY EVERY EVENING Lyrica [facility] [address]-69 50 MG Orally Once a day in the AM 1 capsule Gold Rosario Foot Powder Max [facility] [address]605 Externally not defined Throat Lozenges ND 0 Mouth/Throat not defined Tums [facility] [address]-99 500 MG Orally Four times a day [address] [facility] 58393050481 250 MG Orally every 24 hours one [address] [facility] 65796827845 500 MG Orally Twice a day [address] [facility] [address]-16 0.5 % Externally Twice a day 1 application to affected area Tussin [facility] 26466-27297 100 MG/5ML Orally every 4 hrs 10 ml as needed Loratadine [facility] [address]-16 10 mg Nov 20, 2011 1 Tablet by Oral route 1 time per day Xanax [facility] [address]-33 1 MG Orally Once a day prior to medical appts May 27, 2014 1 tablet Opcon-A [facility] 78788-85426 0.23804-8.315 % Nov 20, 2012 1-2 drop by opthalmac route prn redness and swelling of eyes from allergies Calamine [facility] [address]-95 Externally not defined Mucinex [facility] [address]-31 600 MG Orally every 12 hrs 1 tablet as needed Culturelle [facility] 48815-40512 Apr 14, 2014 by oral route po qd prn for healthy BMs Docusate Sodium [facility] [address]-63 100 mg Nov 20, 2011 1 Capsule by Oral route 2 times per day Acetaminophen [facility] [address]-49 500 mg Nov 20, 2012 1 Tablet by Oral route q4hrs prn pain 1 Plus 1 NDC 0 not defined Procedures Procedure Coding System Code Date TOPICAL FLUORIDE VARNISH CPT-4 D1206 Dec 12, 2015 PROPHYLAXIS - ADULT CPT-4 D1110 Dec 12, 2015 Vital Signs Date/Time: Dec 12, 2015 Blood Pressure Diastolic 78 mmHg Blood Pressure Systolic 124 mmHg Results No Known Results Summary Purpose eClinicalWorks Submission
--- OUTSIDE RECORDS SUMMARY | 2016-06-23 06:14 | XMS REPORT ---
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
--- OUTSIDE RECORDS SUMMARY | 2016-06-23 06:15 | XMS REPORT ---
Author TERRA Crawley [facility] eClinicalWorks Address Unknown Phone Unavailable Care Team Providers Care Plumbing Service Technician Name Role Phone TERRA GRAF CP Unavailable [...] System Code Date SINGLE IMMUNIZATION ADMIN CPT-4 05929 Feb 22, 2015 HEP B (PED/ADOL, 3 DOSE) CPT-4 35361 Feb 22, 2015 Results No Known Results Immunizations Vaccine Administration Date HEP B (PED/ADOL, 3 DOSE) Feb 22, 2015 Summary Purpose eClinicalWorks Submission
--- OUTSIDE RECORDS SUMMARY | 2016-06-23 06:15 | XMS REPORT ---
Author Author DONY CHAMPION Organization eClinicalWorks Address Unknown Phone Unavailable Care Team Providers Care Garment Manufacturer Name Role Phone DONY CHAMPION CP Unavailable Allergies No Known Allergies Problems [...]
--- OUTSIDE RECORDS SUMMARY | 2016-06-23 06:15 | XMS REPORT ---
Author Author ARGENTINA BARKER Organization eClinicalWorks Address Unknown Phone Unavailable Care Team Providers Care Champagne Maker Name Role Phone ARGENTINA BARKER Unavailable Allergies [...] Instructions Start Date End Date Status Dosage Abilify [facility] [address]-77 10 MG Orally Once a day 1 tablet Depakote [facility] [address]-01 250 MG Orally Once a day 1 tablet Depakote [facility] [address]-08 500 MG Orally Twice a day 1 tablet Trihexyphenidyl HCl [facility] [address]-03 5 MG Orally 2 times a day 1 tablet with meals Results No Known Results Summary Purpose eClinicalWorks Submission
--- OUTSIDE RECORDS SUMMARY | 2016-06-23 06:15 | XMS REPORT ---
Author Author DONY CHAMPION Organization eClinicalWorks Address Unknown Phone Unavailable Care Team Providers Care Ivory Carver Name Role Phone DONY CHAMPION CP Unavailable [...] Instructions Start Date End Date Status Dosage Darnell [facility] [address]-87 10 mg Orally Once a day 1 tablet Results No Known Results Summary Purpose eClinicalWorks Submission
--- OUTSIDE RECORDS SUMMARY | 2016-06-23 06:15 | XMS REPORT | Continuity of Care Document ---
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 measurement by test strip 6 5- 9 Specific gravity of urine by test strip 1.010 1.016-1.022 Urine protein assay by test strip, semi-quantitative 1+ NEGATIVE Urine glucose detection by automated test strip NEGATIVE NEGATIVE Erythrocytes detection in urine sediment by light microscopy 1+ NEGATIVE Urine ketones detection by automated test strip NEGATIVE NEGATIVE Urine nitrite detection by test strip NEGATIVE NEGATIVE Urine total bilirubin detection by test strip NEGATIVE NEGATIVE Urine urobilinogen measurement by automated test strip (mass/volume) NORMAL NORMAL Urine leukocyte esterase detection by dipstick 2+ NEGATIVE Automated urine sediment erythrocyte count by microscopy (number/high power field) RARE NRG Automated urine sediment leukocyte count by microscopy (number/high power field ) [HPF] NRG Bacteria detection in urine sediment by light microscopy TRACE NRG Squamous epithelial cells detection in urine sediment by light microscopy 2-5 NRG Crystals detection in urine sediment by light microscopy NONE NRG Casts detection in urine sediment by light microscopy NONE NRG Mucus detection in urine sediment by light microscopy NEGATIVE NRG Complete urinalysis with reflex to culture YES NRG Bacterial urine culture - 05/30/16 14:39 Bacterial urine culture FOOTNOTE NRG Methicillin resistant Staphylococcus aureus (MRSA) screening culture - 13:10 Methicillin resistant Staphylococcus aureus (MRSA) screening culture NEG NRG Encounters ACCT No. Visit Date/Time Discharge Status Pt. Type Provider Facility Loc./Unit Complaint [id number] 05/27/2014 13:13:00 05/27/2014 23: 59:59 CLS Outpatient ARGENTINA BARKER APRN [id number] 04/14/2014 13:00:00 04/14/2014 23: 59:59 CLS Outpatient ARGENTINA BARKER APRN [id number] 11/24/2013 10:27:00 11/24/2013 23: 59:59 CLS Outpatient FREDDIE WALDRON DDS [id number] 10/12/2013 14:39:00 10/12/2013 23: 59:59 CLS Outpatient ARGENTINA BARKER APRN [id number] 09/29/2013 15:03:00 09/29/2013 23: 59:59 CLS Outpatient ANNA MULLER DDS [id number] 04/29/2013 11:39:00 04/29/2013 23: 59:59 CLS Outpatient BRANDON WALDRON DDS [id number] 04/19/2013 09:36:00 04/19/2013 23: 59:59 CLS Outpatient RASHAD GAN MD [id number] 11/20/2012 12:20:00 11/20/2012 23: 59:59 CLS Outpatient DAVID ALVES DO [id number] 04/17/2012 14:26:00 04/17/2012 23: 59:59 CLS Outpatient DAVID ALVES DO [id number] 03/20/2012 12:36:00 03/20/2012 23: 59:59 CLS Outpatient DAVID ALVES DO [id number] 03/20/2012 12:36:00 03/20/2012 23: 59:59 CLS Outpatient DAVID ALVES DO [id number] 02/27/2012 09:38:00 02/27/2012 23: 59:59 CLS Outpatient [id number] 01/21/2012 11:29:00 01/21/2012 23: 59:59 CLS Outpatient [id number] 07/01/2012 18:05:00 Document Registration
--- OUTSIDE RECORDS SUMMARY | 2016-06-23 06:15 | XMS REPORT ---
Author Author DONY CHAMPION Organization [employer] Address Unknown Phone Unavailable Care Team Providers Care Center Aisle Cashier Name Role Phone DONY CHAMPION CP Unavailable [...]
== END 2016-05-30 16:48 | disposition home or self-care (01) ==
LOC: EDUNIT# 11:28 → ER 11:31
DX: N39.0 Urinary tract infection, site not specified (principal); R19.7 Diarrhea, unspecified; K80.20 Calculus of gallbladder without cholecystitis without obstruction; K59.00 Constipation, unspecified; R93.49 Abnormal radiologic findings on diagnostic imaging of other urinary organs; Z79.899 Other long term (current) drug therapy
CPT/HCPCS: 36415; 73630; 80053; 81000; 82150; 83690; 85025; 85652; 86141; 87088; 96361; 96365

== ENCOUNTER 2016-06-03 12:49 | Outpatient (CLI) | payer MEDICARE, MEDICAID ==
[~2016-06-03] VITALS: Ht 167.6 cm; Wt 81.6 kg
[~2016-06-03 12:49] MED LIST changes: +NITR-65 PO
[2016-06-03 14:13] VITALS: BP 133/82
[2016-06-03] MEDS ORDERED: DIVA500T15 PO (14:13)
[2016-06-03] MEDS ORDERED: POLY255P PO (14:13)
[2016-06-03] MEDS ORDERED: ACET-93 PO (14:13)
[2016-06-03] MEDS ORDERED: DIVA250T12 PO (14:13)
== END 2016-06-03 13:10 | disposition home or self-care (01) ==
LOC: PREOP 12:49
PROVIDERS: ATTEND Surgery
DX: Z01.818 Encounter for other preprocedural examination (principal); Z11.2 Encounter for screening for other bacterial diseases; K80.20 Calculus of gallbladder without cholecystitis without obstruction
CPT/HCPCS: 87081

== ENCOUNTER 2016-06-07 06:30 | Day surgery (SDC) | payer MEDICARE, MEDICAID ==
[~2016-06-07] VITALS: Ht 167.6 cm; Wt 81.6 kg
[~2016-06-07 06:30] MED LIST changes: +ACET-93 PO; +DIVA250T12 PO; +DIVA500T15 PO; +POLY255P PO
[2016-06-07] MEDS ORDERED: fentaNYL INJECTION 100 MCG/2 ML AMP ONE (06:56)
[2016-06-07 07:00] VITALS: BP 139/85
[2016-06-07] MEDS ORDERED: BUP/EPI 0.25% 1:200,000 (MARCAINE) 30 ML VIAL ONE (07:12)
[2016-06-07] MEDS ORDERED: metroNIDAZOLE 500 MG/100 ML IVPB (PRE-MIX) IV ONE (07:15)
[2016-06-07] MEDS ORDERED: ceFAZolin 1 GM/NS 50 ML IVPB IV ONE ×2 (07:15)
[2016-06-07] MEDS ORDERED: LACTATED RINGERS 1,000 ML IV ONE ×3 (07:15→09:47)
[2016-06-07] MEDS ORDERED: CLAR-19 PO (07:53)
[2016-06-07] MEDS ORDERED: AMOX500C2 PO (07:53)
[2016-06-07] MEDS ORDERED: OMEP20CA12 PO (07:53)
[2016-06-07] MEDS ORDERED: LACTATED RINGERS 1,000 ML IV PRN (07:55)
[2016-06-07] MEDS ORDERED: FAMOTIDINE 20MG/2ML IV (PEPCID) IV ONE (08:00)
--- NOTE | 2016-06-07 08:12 | Progress Note-Pre Operative ---
Pre-Operative Progress Note H&P Reviewed The H&P was reviewed, patient examined and no changes noted. Date H&P Reviewed: Jun 07, 2016 Time H&P Reviewed: 08:12 Pre-Operative Diagnosis: Gallstones in a contracted gallbladder ANGELA BEATTY MD Jun 07, 2016 8:12 am
[2016-06-07] MEDS ORDERED: proPOfol 200 MG/20 ML (DIPRIVAN) VIAL IV ONE (08:14)
[2016-06-07] MEDS ORDERED: LIDOCAINE PF 2% 10 ML (XYLOCAINE) AMP ONE (08:14)
[2016-06-07] MEDS ORDERED: ONDANSETRON 4 MG/2 ML (SDV) Z0FRAN ONE (08:14)
[2016-06-07] MEDS ORDERED: LIDOCAINE JELLY 2% (XYLOCAINE) 5 ML TUBE ONE (08:14)
[2016-06-07] MEDS ORDERED: ROCURONIUM 50 MG/5 ML (ZEMURON) VIAL IV ONE (08:14)
[2016-06-07] MEDS ORDERED: MIDAZOLAM 2 MG/2 ML (VERSED) VIAL ONE (08:14)
[2016-06-07] MEDS ORDERED: SEVOFLURANE (ULTANE) 15 ML INHAL SOLN ONE ×3 (08:58→09:32)
[2016-06-07] MEDS ORDERED: MEPERIDINE (DEMEROL) INJ 50 MG/ML ONE (09:28)
[2016-06-07] MEDS ORDERED: morphine INJ 10 MG/ML 1ML (SYR OR VIAL) ONE ×2 (09:28)
[2016-06-07] MEDS ORDERED: HYDR-3812 PO (09:35)
--- NOTE | 2016-06-07 09:35 | Progress Note-Post Operative ---
Post-Operative Progess Note Surgeon (s)/Proposal Editor (s) Surgeon ANGELA BEATTY MD Proposal Editor: Candie Pre-Operative Diagnosis Gallstones in a contracted gallbladder Post-Operative Diagnosis Same Post-Op Procedure Note Date of Procedure: Jun 07, 2016 Name of Procedure Performed: Lap.Cholecystectomy Description of the Procedure: See op note Findings of the Procedure Thick and contracted GB Anesthesia Type G.A Estimated blood loss (mL): Minimal Specimen(s) collected/removed Gb ANGELA BEATTY MD Jun 07, 2016 9:35 am
--- NOTE | 2016-06-07 09:37 | Discharge Inst-Simple/Standard ---
Discharge Inst-Standard Discharge Medications New, Converted or Re-Newed RX: RX on Chart Patient Instructions/Follow Up Plan of Care/Instructions/FU: Dressings off in 48 hours. Incentive spirometry. F/U in 3 weeks Activity as Tolerated: Yes Discharge Diet: No Restrictions ANGELA BEATTY MD Jun 07, 2016 9:37 am
[2016-06-07] MEDS ORDERED: MEPERIDINE (DEMEROL) INJ 50 MG/ML IVP PRN (09:45)
[2016-06-07] MEDS ORDERED: GLYCOPYRROLATE 0.2 MG/ML (ROBINUL) 2 ML VIAL ONE (09:47)
[2016-06-07] MEDS ORDERED: NEOSTIGMINE (BLOXIVERZ ) 1 MG/1ML 10 ML VIAL ONE (09:47)
[2016-06-07] MEDS: morphine INJ 10 MG/ML 1ML (SYR OR VIAL) IVP PRN ×2 (10:19→10:23)
[2016-06-07 10:30] VITALS: BP 135/83
[2016-06-07 11:00] VITALS: BP 119/79
[2016-06-07 11:30] VITALS: BP 129/84
[2016-06-07 12:25] VITALS: BP 129/84
--- NOTE | 2016-06-07 13:45 | OPERATIVE REPORT ---
PROCEDURE PHYSICIAN: ANGELA BEATTY DATE OF PROCEDURE: 06/07/2016 PREOPERATIVE DIAGNOSES: 1. Gallstones. 2. Contracted gallbladder. 3. Chronic cholecystitis. 4. Chronic hepatitis POSTOPERATIVE DIAGNOSES: 1. Gallstones. 2. Contracted gallbladder. 3. Chronic cholecystitis. 4. Chronic hepatitis OPERATION: 1. Laparoscopic cholecystectomy. 2. Wedge biopsy of liver SURGEON: Dr. Beatty. ANESTHESIA: General anesthesia. BLOOD LOSS: Minimal. FLUIDS: 1 liter of crystalloids. TYPE OF WOUND: Type II (Clean-contaminant wound). INDICATION FOR THE PROCEDURE: This gentleman was found to have a contracted gallbladder with multiple stones. Preoperative endoscopic ultrasound was negative for common duct stones. Due to ongoing symptoms, it was felt reasonable to proceed with laparoscopic cholecystectomy. Informed consent was obtained after reviewing the operative details and complications of wound infection and postoperative bile leak, with his power of collections attorney. DESCRIPTION OF THE PROCEDURE: He was supine on the operative table and general anesthesia induced. A gram of Ancef and 500 mg of Flagyl were administered intravenously as prophylaxis against wound infection. Sequential compression devices were placed around his legs, to minimize the risk of venous thrombosis. Abdomen was prepared and draped in the usual sterile manner. A subumbilical incision was made and the linea alba incised vertically. A Larsen cannula was placed and carbon dioxide insufflated, to an intra-abdominal pressure of 15 mmHg. Anatomy was visualized using a 30 laparoscope. Under direct view, I placed a 5 mm trocar over the epigastric region, followed by 2 additional 5 mm trocars along the right side of the abdomen. The patient was then turned in reverse Trendelenburg position. Omentum was densely adherent to the body of the gallbladder. The fundus was retracted cephalad and omentum by a combination of blunt dissection and harmonic scalpel. The neck of the gallbladder was then isolated and the cystic duct transected. The stump was reinforced with two separate PDS Endoloops. A similar device was placed around the neck of the gallbladder to avoid spillage of stones during dissection. Cholecystomy was then completed using harmonic scalpel. Intra-abdominal pressure was reduced to 11 mmHg, looking for bleeding from the liver. A few areas were encountered and controlled easily using cautery. At the request of the gastroenterologists, a wedge of the liver along the inferior edge was excised for biopsy. It was removed via one of the 5 mm trocars. The gallbladder was then placed in an Endo Catch bag and removed via the subumbilical trocar site. The fascia over this incision was then closed using number 1 Vicryl. The skin was closed using 4-0 Vicryl, in a subcuticular fashion. 0.25% Marcaine with epinephrine was infiltrated along the incisions, both preemptively and at the conclusion of the operation. She tolerated the procedure well, was extubated in the operating room and taken to the recovery room in a stable condition. [place], sponges, and instruments were correct at the end of the operation. Job ID: [id number] Dictated Date: 06/07/2016 09:48:06 Break And Load Operator Date: 06/07/2016 13:39:22 / emy GILL
== END 2016-06-07 12:25 | disposition home or self-care (01) ==
LOC: SDC 06:30
PROVIDERS: ATTEND Surgery
DX: K80.10 Calculus of gallbladder with chronic cholecystitis without obstruction (principal); K73.9 Chronic hepatitis, unspecified
CPT/HCPCS: 88304; 88307

== ENCOUNTER 2016-10-23 06:08 | Outpatient (CLI) | payer MEDICARE, MEDICAID ==
[~2016-10-23] VITALS: Ht 175.3 cm; Wt 81.6 kg
[~2016-10-23 06:08] MED LIST changes: +AMOX500C2 PO; +CLAR-19 PO; -NAPR500T3 PO; +NAPR500T4 PO; +OMEP20CA12 PO
[2016-10-24] MEDS ORDERED: ARIP5TAB20 PO (08:20)
== END 2016-10-23 15:00 ==
LOC: PREOP 06:08
PROVIDERS: ATTEND Surgery
DX: Z01.818 Encounter for other preprocedural examination (principal); D50.9 Iron deficiency anemia, unspecified

== ENCOUNTER 2016-10-28 07:48 | Day surgery (SDC) | payer MEDICARE, MEDICAID ==
[~2016-10-28] VITALS: Ht 175.3 cm; Wt 81.6 kg
[~2016-10-28 07:48] MED LIST changes: +ARIP5TAB20 PO; +NAPR500T3 PO; -NAPR500T4 PO
[2016-10-28] MEDS ORDERED: HURRICAINE EXT TUBE (BENZOCAINE) XX PRN (08:00)
[2016-10-28 08:09] VITALS: BP 109/78
--- NOTE | 2016-10-28 08:18 | History & Physicial ---
History of Present Illness History of Present Illness Reason for visit/HPI initially scheduled to undergo an upper endoscopy and colonoscopy, to evaluate iron deficiency anemia. It has since transpired that he did not have any bowel movements, despite completing the bowel prep. Due to his mental status and chronic constipation, it is reasonable to reschedule colonoscopy after 2 or 3 days of bowel preparation. Date of Admission Date Seen by Provider: Oct 28, 2016 Time Seen by Provider: 08:15 I consulted on this patient on 10/28/16 08:14 Attending Physician Angela Jordan MD Admitting Physician Tish Noe DO Consult Allergies and Home Medications Allergies Coded Allergies: lorazepam (Unverified Adverse Reaction, Intermediate, HYPERACTIVITY, 01/25) Home Medications Acetaminophen 500 Mg Tablet, 500 MG PO Q6H PRN for pain/fever, (Reported) [place] 650 Mg Tablet, 650 MG PO QID, (Reported) Aripiprazole 5 Mg Tablet, 5 MG PO DAILY, (Reported) Benztropine Mesylate 2 Mg Tablet, 2 MG PO BID, (Reported) Bethanechol Chloride 50 Mg Tablet, 50 MG PO ACHS, (Reported) Calcium Carbonate 200 Mg Tab.chew, 200 MG PO PRN PRN for HEARBURN, (Reported) Calcium Carbonate/Vitamin D3 1 Each Tablet, 1 TAB PO DAILY, (Reported) Desmopressin Acetate 0.2 Mg Tablet, 0.6 MG PO HS, (Reported) take 3 (.2mg) tabs Divalproex Sodium 500 Mg Tab.er.24h, 500 MG PO BID, (Reported) Docusate Sodium 100 Mg Capsule, 100 MG PO BID, (Reported) Fluticasone Propionate 50 Mcg/16 G [place], 1 SPRAY NSEACH BID, (Reported) Lactobacillus Rhamnosus 1 Cap Capsule, 1 CAP PO DAILY PRN for stools, (Reported) Loratadine 10 Mg Capsule, 10 MG PO HS, (Reported) Pnv With Ca,No.72/Iron,Carb/Fa 1 Each Tablet, 1 EACH PO DAILY, (Reported) Polyethylene Glycol 3350 255 Gm Powder, 17 GM PO BID, (Reported) Pregabalin 50 Mg Capsule, 50 MG PO DAILY, (Reported) Pregabalin 25 Mg Capsule, 25 MG PO HS, (Reported) Senna 1 Tab Tablet, 2 TAB PO BID, (Reported) Past Onxnobj-Iexfdf-Rlabib Hx Patient Social History Marrital Status: single Employed/Student: unemployed Alcohol Use: Denies Use Recreational Drug Use: No Smoking Status: Never a Smoker Recent Foreign Travel: No Contact w/other who traveled: No Recent Hopitalizations: No Recent Infectious Disease Expo: No Immunizations Up To Date Tetanus Booster (TDap): Less than 5yrs Date of Pneumonia Vaccine: Jan 23, 2015 Date of Influenza Vaccine: Dec 05, 2015 Seasonal Allergies Seasonal Allergies: Yes Surgeries Gallbladder, Orthopedic Neurological Developmental Disorder, Seizure Disorder Gastrointestinal Chronic Constipation, Chronic Diarrhea Psychosocial Behavioral Health Disorders: Anxiety Blood Transfusions Adverse Reaction to a Blood Tr: No Constitutional: no symptoms reported EENTM: no symptoms reported Respiratory: no symptoms reported Cardiovascular: no symptoms reported Gastrointestinal: no symptoms reported, constipation Genitourinary: no symptoms reported Musculoskeletal: muscle weakness Skin: no symptoms reported Psychiatric/Neurological: Emotional Problems, Pre-Existing Deficit Physical Exam Vital Signs Vital Sign - Last 12Hours 10/28/16 08:09 Temp 97.1 Pulse 80 Resp 16 B/P (MAP) 109/78 Pulse Ox 98 O2 Delivery Room Air Capillary Refill : General Appearance: Anxious HEENT: Normal ENT Inspection Neck: Normal Inspection Respiratory: Lungs Clear Cardiovascular: Regular Rate, Rhythm Gastrointestinal: Non Tender, Soft Rectal: Deferred Extremity: Normal Inspection Neurologic/Psychiatric: Other Skin: Warm/Dry Assessment/Plan Assessment and Plan gentleman with decreased mental capacity. I and deficiency anemia. Poor bowel preparation. Upper endoscopy be completed today, colonoscopy to be rescheduled. Problems: ANGELA JORDAN MD Oct 28, 2016 8:17 am
--- NOTE | 2016-10-28 08:18 | Conscious Sedation/ASA ---
Conscious Sedation Pre-Proced Time Reviewed: 08:18 ASA Class: 3 Airway Mallampati Classification: ([place] appropriate class) I. II. III, IV Lungs Heart ASA score ASA 1: a normal healthy patient ASA 2: a patient with a mild systemic disease (mid diabetes, controlled hypertension, obesity ASA 3: a patient with a severe systemic disease that limits activity (angina , COPD, prior Myocardial infarction) ASA 4: a patient with an incapacitating disease that is a constant threat to life (CHF, renal failure) ASA 5: a moribund patient not expected to survive 24 hrs. (ruptured aneurysm) ASA 6: a declared brain patient whose organs are being harvested. For emergent operations, add the letter E after the classification Grade 2 Sedation Plan: Discussed options with patient/fam Note The patient is an appropriate candidate to undergo the planned procedure, sedation, and anesthesia. The patient immediately re-assessed prior to indication. ANGELA BEATTY MD Oct 28, 2016 8:18 am
[2016-10-28] MEDS ORDERED: NS IV 500 ML 500 ML IV PRN (08:30)
[2016-10-28] MEDS ORDERED: fentaNYL INJECTION 100 MCG/2 ML AMP ONE (08:47)
[2016-10-28] MEDS ORDERED: MIDAZOLAM 2 MG/2 ML (VERSED) VIAL ONE ×3 (08:47)
[2016-10-28] MEDS: fentaNYL INJECTION 100 MCG/2 ML AMP IVP PRN ×2 (09:10→09:15)
[2016-10-28] MEDS: MIDAZOLAM 2 MG/2 ML (VERSED) VIAL IVP PRN ×3 (09:11→09:18)
--- NOTE | 2016-10-28 09:37 | Endo Procedure Record ---
Endo Procedure Report Date of Procedure Oct 28, 2016 Surgeon (s) ANGELA BEATTY MD Post Procedure/Op Diagnosis 1.grade 1 esophageal varix involving the distal esophagus with no bleeding 2. Distal gastritis 3. Proximal duodenitis Procedure Performed upper endoscopy with antral biopsy Description of Procedure Anesthesia Type: Conscious Sedation Specimen(s) collected/removed antral mucosa for H. pylori Description of the Procedure Indication for procedure: This gentleman, who is a resident at a shelter due to decreased mental capacity, was found to have iron deficiency anemia. Therefore, he was scheduled to undergo an upper endoscopy with concomitant colonoscopy. During the immediate pre-endoscopy evaluation, it became evident that she did not respond to conventional bowel preparation. Therefore, it is felt reasonable to complete the upper endoscopy today and bring him back on a subsequent date with 2-3 days of bowel preparation. Informed consent was obtained from his guardian. Description of the procedure: He was placed in left lateral decubitus position and his vital signs were monitored. Conscious sedation was achieved using Versed and fentanyl. His oropharynx was anesthetized with Cetacaine spray and the flexible gastroscope introduced down the esophagus, past the stomach, into the proximal duodenum Findings: Esophagus:Quite tortuous possibly a normal anatomic variation with 1 column of varix at the distal end. The exact significance and etiology are unclear. There was obviously no bleeding. Stomach: Mild distal gastritis. Biopsy for H. pylori was obtained. Duodenum: Changes of severe duodenitis with found along the first part. There was no bud ulceration. He tolerated the procedure well and was taken back to the nursing area in a stable condition. Impression: iron deficiency anemia. incidental small esophageal varix with no bleeding. Gastritis and duodenitis. Helicobacter status pending. Colonoscopy will be rescheduled with increased bowel preparation. Copies To: SETH CANALES XAVIER M MD Oct 28, 2016 9:37 am
--- NOTE | 2016-10-28 09:40 | Discharge Inst-Simple/Standard ---
Discharge Inst-Standard Discharge Medications New, Converted or Re-Newed RX: Other Patient Instructions/Follow Up Plan of Care/Instructions/FU: Will reschedule colonoscopy Activity as Tolerated: Yes Discharge Diet: No Restrictions ANGELA BEATTY MD Oct 28, 2016 9:40 am
[2016-10-28 09:55] VITALS: BP 92/59
[2016-10-28] MEDS ORDERED: HURRICAINE EXT TUBE (BENZOCAINE) ONE (10:13)
[2016-10-28 10:25] VITALS: BP 111/73
[2016-10-28 10:40] VITALS: BP 111/73
== END 2016-10-28 10:40 | disposition home or self-care (01) ==
LOC: ENDO 07:48
PROVIDERS: ATTEND Surgery
DX: I85.00 Esophageal varices without bleeding (principal); K29.70 Gastritis, unspecified, without bleeding; K29.80 Duodenitis without bleeding; D50.9 Iron deficiency anemia, unspecified; F89 Unspecified disorder of psychological development; G40.909 Epilepsy, unspecified, not intractable, without status epilepticus; K59.09 Other constipation; F41.9 Anxiety disorder, unspecified

== ENCOUNTER → 2017-01-13 | Outpatient (CLI) | payer MEDICARE, MEDICAID ==
--- NOTE | 2017-01-13 10:32 | Diagnostic Imaging Report ---
EXAMINATION: Upper and lower extremity pressure measurements of ankle/brachial index and pulse volume recording at the ankle. INDICATION: Swelling cold legs FINDINGS: The ankle/brachial index on the right side is 1.15, (1.15 PT, and 0.98 DP) and on the left is 1.19 (1.19 PT, and 0.93 DP). Pulse volume recording waveforms no significant dampening. IMPRESSION: No evidence of significant peripheral arterial disease.. Dictated by: Dictated on workstation # [id number]
== END ==
LOC: RAD 08:56
PROVIDERS: ATTEND Nurse Practitioner Family
DX: R22.43 Localized swelling, mass and lump, lower limb, bilateral (principal)
CPT/HCPCS: 93922

== ENCOUNTER → 2017-04-07 | Outpatient (CLI) | payer MEDICARE, MEDICAID ==
[~2017-04-07] MED LIST changes: +ACHD5005 PO; -HYDR-3812 PO; -NAPR500T3 PO; +NAPR500T4 PO
== END ==
LOC: CARD 14:34
PROVIDERS: ATTEND Internal Medicine Cardiovascular Disease
DX: R60.9 Edema, unspecified (principal)
CPT/HCPCS: 93306

== ENCOUNTER 2017-05-01 13:55 | Emergency (ER) | payer MEDICARE, MEDICAID ==
[~2017-05-01] VITALS: Ht 172.7 cm; Wt 90.7 kg
[~2017-05-01 13:55] MED LIST changes: +NAPR-915 PO; -NAPR500T4 PO
--- OUTSIDE RECORDS SUMMARY | 2017-05-01 14:15 | XMS REPORT ---
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 64354729 Problem Acute pain due to trauma 338.11 Active 804290063 Problem Unspecified mental retardation 319 Active 89867886 Problem Delusional disorders F22 Active 52367794 Problem Intellectual disability F79 Active 78713639 Problem Unspecified episodic mood disorder 296.90 Active 939433595 Problem Delusional disorder 297.1 Active 45762912 Problem Severe intellectual disability F72 Active 50606806 Problem Encounter for dental examination Z01.20 Active 604922720 ALLERGIES Substance Reaction Event Type Date Status Ativan "hyper" Drug Allergy Apr, Active SOCIAL HISTORY Never Assessed PLAN OF CARE Activity Details Follow Up 4 Months Reason: VITAL SIGNS Height 70 in 2016-04-04 Weight 179.0 lbs 2016-04-04 Heart Rate 80 bpm 2016-04-04 Respiratory Rate 20 2016-04-04 BMI 25.68 kg/m2 2016-04-04 Blood pressure systolic 120 mmHg 2016-04-04 Blood pressure diastolic 80 mmHg 2016-04-04 MEDICATIONS Medication Instructions Dosage Frequency Start Date End Date Duration Status Benztropine Mesylate 2 MG Orally Once a day 1 tablet at bedtime 24h Active Benadryl 25 MG Orally every 6 hrs 1 capsule as needed 6h Active Depakote 250 MG Orally Once a day in the evening 1 tablet Mar, 31 days Active Desmopressin Acetate 0.2 MG Orally 3 times a day 1 tablet 8h Active Gold [place] Foot Powder Max St Active Abilify 10 mg Orally Once a day 1 tablet 24h Active fluticasone 50 mcg/actuation 2 Nasal [place] by Nasal route 1 time per day qHS Apr, Active Loratadine 10 mg 1 Tablet by Oral route 1 time per day Nov, Active Ketoconazole 2 % Active Divalproex Sodium 250 MG TAKE ONE TABLET ORALLY DAILY EACH EVENING Active Xanax 1 MG Orally Once a day prior to medical appts 1 tablet May, Active Opcon-A 0.84069-1.315 % 1-2 drop by opthalmac route prn redness and swelling of eyes from allergies Nov, Active Culturelle by oral route po qd prn for healthy BMs Apr, Active Lyrica 50 MG Orally Once a day in the AM 1 capsule Active Triple Antibiotic 5-400-5000 Externally Once a day 1 application to affected area 24h Active Calamine Active [place] 650 MG Active Tums 500 MG Orally Four times a day 1 tablet 6h Active Calcium 600 + D 600-200 MG-UNIT Active Pepto-Bismol 262 MG Orally 8 time(s) a day 2 tablets as needed Active Polyethylene Glycol 3350 17 gram 2 times per day Apr, Active Mucinex 600 MG Orally every 12 hrs 1 tablet as needed 12h Active Hydrocortisone 0.5 % Externally Twice a day 1 application to affected area 12h Active Tussin 100 MG/5ML Orally every 4 hrs 10 ml as needed 4h Active Bethanechol Chloride 50 MG Orally 4 times a day 1 tablet on an empty stomach 6h Active Lyrica 25 MG TAKE 1 CAPSULE ORALLY EVERY EVENING Active Depakote 500 MG Orally Twice a day 1 tablet 12h Active Acetaminophen 500 mg 1 Tablet by Oral route q4hrs prn pain Nov, Active Throat Lozenges Active 1 Plus 1 Active Docusate Sodium 100 mg 1 Capsule by Oral route 2 times per day Nov, Active Senna-S Orally 2 times a day 2 tablets 12h Apr, Active RESULTS No Results PROCEDURES Procedure Date Ordered Result Body Site [facility] VISIT ESTABLISHED PATIENT Apr 04, 2016 IMMUNIZATIONS No Known Immunizations MEDICAL (GENERAL) HISTORY Type Description Date Medical History Moderate IDD Medical History Severe Adaptive Behavior DO Medical History Convulsions Medical History Post-Polio Syndrome Medical History Mood DO Medical History Cerebral Palsy
--- OUTSIDE RECORDS SUMMARY | 2017-05-01 14:15 | XMS REPORT ---
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 79129344 Problem Acute pain due to trauma 338.11 Active 901116273 Problem Unspecified mental retardation 319 Active 91125431 Problem Delusional disorders F22 Active 22976922 Problem Intellectual disability F79 Active 47775414 Problem Unspecified episodic mood disorder 296.90 Active 056373141 Problem Delusional disorder 297.1 Active 86148519 Problem Severe intellectual disability F72 Active 13486816 Problem Encounter for dental examination Z01.20 Active 544594625 ALLERGIES Unknown Allergies SOCIAL HISTORY No smoking Hx information available PLAN OF CARE VITAL SIGNS MEDICATIONS Medication Instructions Dosage Frequency Start Date End Date Duration Status Depakote ER 250 MG Orally every 24 hours one tablet 31 Active Depakote 500 MG Orally Twice a day 1 tablet 12h 31 Active RESULTS No Results PROCEDURES No Known procedures IMMUNIZATIONS No Known Immunizations
--- OUTSIDE RECORDS SUMMARY | 2017-05-01 14:15 | XMS REPORT ---
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 46233698 Problem Acute pain due to trauma 338.11 Active 617994330 Problem Unspecified mental retardation 319 Active 45930252 Problem Delusional disorders F22 Active 33190203 Problem Intellectual disability F79 Active 02951193 Problem Unspecified episodic mood disorder 296.90 Active 275814912 Problem Delusional disorder 297.1 Active 60099746 Problem Severe intellectual disability F72 Active 48490761 Problem Encounter for dental examination Z01.20 Active 774747080 ALLERGIES Unknown Allergies SOCIAL HISTORY No smoking Hx information available PLAN OF CARE VITAL SIGNS MEDICATIONS Unknown Medications RESULTS No Results PROCEDURES No Known procedures IMMUNIZATIONS No Known Immunizations
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
--- NOTE | 2017-05-01 14:39 | ED General ---
General Chief Complaint: Altered Mental Status Stated Complaint: WEAK,UNAWARE,DIARRHEA Nursing Triage Note: PT PRESENTS TO ED WITH COMPLAINTS OF DIAHRREA, AMS, DECREASED APPETITE X 3 DAYS. Nursing Sepsis Screen: No Definite Risk Source of Information: Caregiver Exam Limitations: No Limitations History of Present Illness Date Seen by Provider: May 01, 2017 Time Seen by Provider: 14:36 Initial Comments Mentally retarded gentleman brought to ER by caregiver with reports of reduced appetite for 3 days. He is also had some diarrhea. No diarrhea today but he did have some yesterday and the day before. No measured fevers. He's not been eating much but he does drink. Timing/Duration: 2-3 Days Severity: Moderate Associated Systoms: Loss of Appetite Allergies and Home Medications Allergies Coded Allergies: lorazepam (Unverified Adverse Reaction, Intermediate, HYPERACTIVITY, 01/25) Home Medications Acetaminophen 500 Mg Tablet, 500 MG PO Q6H PRN for pain/fever, (Reported) Union 650 Mg Tablet, 650 MG PO QID, (Reported) Aripiprazole 5 Mg Tablet, 5 MG PO DAILY, (Reported) Benztropine Mesylate 2 Mg Tablet, 2 MG PO BID, (Reported) Bethanechol Chloride 50 Mg Tablet, 50 MG PO ACHS, (Reported) Calcium Carbonate 200 Mg Tab.chew, 200 MG PO PRN PRN for HEARBURN, (Reported) Calcium Carbonate/Vitamin D3 1 Each Tablet, 1 TAB PO DAILY, (Reported) Desmopressin Acetate 0.2 Mg Tablet, 0.6 MG PO HS, (Reported) take 3 (.2mg) tabs Divalproex Sodium 500 Mg Tab.er.24h, 500 MG PO BID, (Reported) Docusate Sodium 100 Mg Capsule, 100 MG PO BID, (Reported) Fluticasone Propionate 50 Mcg/16 G [place], 1 SPRAY NSEACH BID, (Reported) Lactobacillus Rhamnosus 1 Cap Capsule, 1 CAP PO DAILY PRN for stools, (Reported) Loratadine 10 Mg Capsule, 10 MG PO HS, (Reported) Pnv With Ca,No.72/Iron,Carb/Fa 1 Each Tablet, 1 EACH PO DAILY, (Reported) Polyethylene Glycol 3350 255 Gm Powder, 17 GM PO BID, (Reported) Pregabalin 50 Mg Capsule, 50 MG PO DAILY, (Reported) Pregabalin 25 Mg Capsule, 25 MG PO HS, (Reported) Senna 1 Tab Tablet, 2 TAB PO BID, (Reported) Constitutional: see HPI, malaise, weakness EENTM: see HPI Respiratory: no symptoms reported Cardiovascular: no symptoms reported Gastrointestinal: No abdominal pain, nausea, vomiting Genitourinary: no symptoms reported Musculoskeletal: no symptoms reported Skin: no symptoms reported Psychiatric/Neurological: No Symptoms Reported Past Qgzchka-Vzeenl-Vdumzy Hx Patient Social History Alcohol Use: Denies Use Recreational Drug Use: No Smoking Status: Never a Smoker Recent Foreign Travel: No Contact w/Someone Who Travel: No Recent Infectious Disease Expo: No Recent Hopitalizations: No Immunizations Up To Date Tetanus Booster (TDap): Less than 5yrs Date of Pneumonia Vaccine: Jan 23, 2015 Date of Influenza Vaccine: Dec 05, 2015 Seasonal Allergies Seasonal Allergies: Yes Surgeries History of Surgeries: Yes (SURGERY ON ALL LEFT TOES, COLONOSCOPY) Surgeries: Gallbladder, Orthopedic Respiratory History of Respiratory Disorde: No Cardiovascular History of Cardiac Disorders: No Neurological History of Neurological Disord: Yes (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, postpolio syndrome, convulsions) Neurological Disorders: Developmental Disorder, Seizure Disorder Gastrointestinal History of Gastrointestinal Di: Yes Gastrointestinal Disorders: Chronic Constipation, Chronic Diarrhea Musculoskeletal History of Musculoskeletal Dis: Yes (POLIO) Endocrine History of Endocrine Disorders: No Cancer History of Cancer: No Psychosocial History of Psychiatric Problem: Yes (MR, SEVERE ADAPTIVE BEHAVIOR DISORDER, CONVULSIONS, DELUSIONAL DISORDER) Behavioral Health Disorders: Anxiety Integumentary History of Skin or Integumenta: No Blood Transfusions History of Blood Disorders: No Adverse Reaction to a Blood Tr: No Physical Exam Vital Signs Vital Signs - First Documented 05/01/17 14:09 Temp 98.0 Pulse 104 Resp 20 B/P (MAP) 156/103 (120) Pulse Ox 96 Capillary Refill : Less Than 3 Seconds General Appearance: No Apparent Distress, WD/WN Eyes: Bilateral Eye Normal Inspection, Bilateral Eye PERRL, Bilateral Eye EOMI HEENT: PERRL/EOMI, TMs Normal Neck: Full Range of Motion, Normal Inspection Respiratory: Normal Breath Sounds, No Accessory Muscle Use, No Respiratory Distress Cardiovascular: Normal Peripheral Pulses, Tachycardia Gastrointestinal: Normal Bowel Sounds, Non Tender, Soft Extremity: Normal Capillary Refill, Normal Inspection Neurologic/Psychiatric: Alert, Oriented x3, No Motor/Sensory Deficits Skin: Normal Color, Warm/Dry Focused Exam Evaluation Lactate Level Laboratory Tests 05/01/17 15:43: Lactic Acid Level 1.06 Lactic Acid Level Laboratory Tests Test 05/01/17 15:43 Lactic Acid Level 1.06 MMOL/L (0.50-2.00) Progress/Results/Core Measures Suspected Sepsis Recent Fever Within 48 Hours: No Infection Criteria Present: None New/Unexplained Altered Menta: No Sepsis Screen: No Definite Risk Sepsis Diagnosis: SIRS Temperature:98.0 Pulse: 104 Respiratory Rate: 20 Laboratory Tests 05/01/17 14:34: White Blood Count 18.8H Blood Pressure 156 /103 Mean: 120 Laboratory Tests 05/01/17 15:43: Lactic Acid Level 1.06 Laboratory Tests 05/01/17 14:34: Creatinine 2.45H, Platelet Count 200, Total Bilirubin 0.4 Results/Orders Lab Results Laboratory Tests Test 05/01/17 14:34 05/01/17 15:43 Range/Units White Blood Count 18.8 H 4.3-11.0 10^3/uL Red Blood Count 3.36 L 4.35-5.85 10^6/uL Hemoglobin 11.2 L 13.3-17.7 G/DL Hematocrit 32 L 40-54 % Mean Corpuscular Volume 96 80-99 FL Mean Corpuscular Hemoglobin 33 25-34 PG Mean Corpuscular Hemoglobin Concent 35 32-36 G/DL Red Cell Distribution Width 14.5 10.0-14.5 % Platelet Count 200 130-400 10^3/uL Mean Platelet Volume 9.2 7.4-10.4 FL Neutrophils (%) (Auto) 87 H 42-75 % Lymphocytes (%) (Auto) 5 L 12-44 % Monocytes (%) (Auto) 8 0-12 % Eosinophils (%) (Auto) 0 0-10 % Basophils (%) (Auto) 0 0-10 % Neutrophils # (Auto) 16.3 H 1.8-7.8 X 10^3 Lymphocytes # (Auto) 1.0 1.0-4.0 X 10^3 Monocytes # (Auto) 1.6 H 0.0-1.0 X 10^3 Eosinophils # (Auto) 0.0 0.0-0.3 10^3/uL Basophils # (Auto) 0.0 0.0-0.1 10^3/uL Neutrophils % (Manual) 69 % Lymphocytes % (Manual) 7 % Monocytes % (Manual) 9 % Eosinophils % (Manual) 0 % Basophils % (Manual) 0 % Myelocytes % 1 % Band Neutrophils 14 % Anisocytosis SLIGHT Sodium Level 139 135-145 MMOL/L Potassium Level 4.0 3.6-5.0 MMOL/L Chloride Level 104 98-107 MMOL/L Carbon Dioxide Level 19 L 21-32 MMOL/L Anion Gap 16 H 5-14 MMOL/L Blood Urea Nitrogen 55 H 7-18 MG/DL Creatinine 2.45 H 0.60-1.30 MG/DL Estimat Glomerular Filtration Rate 28 BUN/Creatinine Ratio 22 Glucose Level 139 H 70-105 MG/DL Calcium Level 8.6 8.5-10.1 MG/DL Total Bilirubin 0.4 0.1-1.0 MG/DL Aspartate Amino Transf (AST/SGOT) 48 H 5-34 U/L Alanine Aminotransferase (ALT/SGPT) 53 0-55 U/L Alkaline Phosphatase 242 H 40-136 U/L Total Protein 6.5 6.4-8.2 GM/DL Albumin 3.2 3.2-4.5 GM/DL Valproic Acid (Depakene) Level 51.5 50.0-100.0 UG/ML Urine Color YELLOW Urine Clarity SLIGHTLY CLOUDY Urine pH 6 5-9 Urine Specific Cammal 1.010 L 1.016-1.022 Urine Protein 2+ H NEGATIVE Urine Glucose (UA) NEGATIVE NEGATIVE Urine Ketones NEGATIVE NEGATIVE Urine Nitrite NEGATIVE NEGATIVE Urine Bilirubin NEGATIVE NEGATIVE Urine Urobilinogen NORMAL NORMAL MG/DL Urine Leukocyte Esterase 3+ H NEGATIVE Urine RBC (Auto) 3+ H NEGATIVE Urine RBC 2-5 H /HPF Urine WBC TNTC H /HPF Urine Crystals NONE /LPF Urine Bacteria TRACE /HPF Urine Casts NONE /LPF Urine Mucus NEGATIVE /LPF Urine Culture Indicated YES Lactic Acid Level 1.06 0.50-2.00 MMOL/L My Orders Orders - DALI MURILLO [employer] Cbc With Automated Diff (05/01/17 14:25) Comprehensive Metabolic Panel (05/01/17 14:25) Ua Culture If Indicated (05/01/17 14:25) Chest Pa/Lat (2 View) (05/01/17 14:25) Saline Lock/Iv-Start (05/01/17 14:25) Valproic Acid (05/01/17 14:28) Ondansetron Injection (Zofran Injectio (05/01/17 14:45) Ns Iv 1000 Ml (Sodium Chloride 0.9%) (05/01/17 14:45) Manual Differential (05/01/17 14:34) Ct Abdomen/Pelvis Wo (05/01/17 14:50) Blood Culture (05/01/17 15:05) Lactic Acid Analyzer (05/01/17 15:05) Catheter(Urinary) To Dependent (05/01/17 15:07) Urine Culture (05/01/17 15:43) Piperacillin Sodium/Tazobactam (Zosyn Vi (05/01/17 16:30) Medications Given in ED Current Medications Medications Dose Ordered Sig/Ewelina Route Start Time Stop Time Status Last Admin Dose Admin Ondansetron HCl 4 mg ONCE ONCE IVP 05/01/17 14:45 05/01/17 14:46 DC 05/01/17 15:29 4 MG Vital Signs/I&O Vital Sign - Last 12Hours 05/01/17 14:09 Temp 98.0 Pulse 104 Resp 20 B/P (MAP) 156/103 (120) Pulse Ox 96 Capillary Refill : Less Than 3 Seconds Blood Pressure Mean: 120 Diagnostic Imaging Diagonstic Imaging: Xray Plain Films/CT/US/NM/MRI: chest Comments NAME: JASPAL DEL [facility] REC#: [id number] PT STATUS: REG ER : 1960 PHYSICIAN: DALI MURILLO APRN ADMIT DATE: 05/01/17/ER Draft Date of Exam:05/01/17 CHEST PA/LAT (2 VIEW) INDICATION: Decreased appetite and weakness for three days. PA and lateral chest. FINDINGS: Heart size and pulmonary vascularity are normal. There is some infiltrate and/or atelectasis at the left posteromedial lung base. Right lung is clear. IMPRESSION: Patchy consolidation in the left medial lung base could be atelectasis or pneumonia. Dictated on workstation # [id number] Dict: 05/01/17 1456 Trans: 05/01/17 1500 [id number] Interpreted by: ROSA RIGGINS MD Electronically signed by: NAME: [facility] [employer] REC#: [id number] PT STATUS: REG ER : 1960 PHYSICIAN: DALI MURILLO APRN ADMIT DATE: 05/01/17/ER Signed Date of Exam:05/01/17 CT ABDOMEN/PELVIS WO PROCEDURE: CT abdomen and pelvis without contrast. TECHNIQUE: Multiple contiguous axial images were obtained through the abdomen and pelvis without the use of intravenous contrast. INDICATION: Weakness, altered mental status, diarrhea. COMPARISON: 05/06/2016. FINDINGS: There are airspace and groundglass opacities in the left lower lobe which are new since the prior study. The heart is normal in size. There is no pericardial effusion. The interventricular septum is visible. There is motion artifact in this study. No focal lesions are seen in the liver. The spleen appears normal. The pancreas appears normal, although there is diffuse mesenteric edema and it is difficult to exclude peripancreatic edema. There is severe bilateral hydronephrosis, left worse than right, with the left renal collecting system measuring up to 11.1 x 8.5 cm. There is severe bilateral hydroureter. No renal calculi are seen. The urinary bladder is markedly distended, with peripheral trabeculation, which may be from chronic outlet obstruction. No stones are seen in the bilateral ureters or bladder. Postsurgical changes are noted at the prostate. The bowel loops are nondistended without evidence of obstruction. Moderate stool is seen throughout the colon. There is mild fluid in the pelvis and abdomen. No free air is seen. There is a dysplastic appearance of the right acetabulum and remodeling of the right femoral head with lateral subluxation at the right hip, stable since the prior study. Fixation hardware is noted in the proximal right femur. No acute fracture is seen. IMPRESSION: 1. Extreme bilateral hydroureteronephrosis, left worse than right with marked distention of the urinary bladder. No stones are seen. This is worsened since May 2016. 2. Moderate stool in the colon. 3. Anemia. 4. Small amount of free fluid in the abdomen and pelvis. Dictated by: Dictated on workstation # [id number] Dict: 05/01/17 1511 Trans: 05/01/17 1534 [id number] Interpreted by: JEN VEGA MD Electronically signed by: JEN VEGA MD 05/01/17 1534 Departure Communication (Admissions) Progress Notes 1621-spoke with Dr. Keyes from urology. He recommends treating the sepsis, Henry catheter to decompress the bladder and ureters and patient can be discharged once appropriate from hospitalist standpoint to follow up with him in the outpatient setting. He may need to place a suprapubic catheter. I then spoke with Dr. Nieves who is on-call for [facility]. She recommends transferring this patient since Dr. Keyes will be unavailable until Friday. 1627- I spoke with Dr. Tabares hospitalist at [facility] who has accepted the patient Impression Impression: Primary Impression: LLL pneumonia Additional Impressions: Sepsis Bladder outlet obstruction Azotemia Disposition: XF SHT-TRM HOSP Condition: Stable Departure-Patient Inst. Referrals: SETH CANALES DO (PCP/Family) Primary Care Physician DALI MURILLO APRN May 01, 2017 14:39
[2017-05-01 14:44] LABS: BASOPHILS % (AUTO) 0 % (0-10); EOSINOPHILS % (AUTO) 0 % (0-10); HEMATOCRIT 32 % (40-54); HEMOGLOBIN 11.2 G/DL (13.3-17.7); LYMPHOCYTES % (AUTO) 5 % (12-44); MEAN CORPUSCULAR HEMOGLOBIN 33 PG (25-34); MEAN CORPUSCULAR HGB CONC 35 G/DL (32-36); MEAN CORPUSCULAR VOLUME 96 FL (80-99); MEAN PLATELET VOLUME 9.2 FL (7.4-10.4); MONOCYTES # (AUTO) 1.6 X 10^3 (0.0-1.0); MONOCYTES % (AUTO) 8 % (0-12); NEUTROPHILS # (AUTO) 16.3 X 10^3 (1.8-7.8); NEUTROPHILS % (AUTO) 87 % (42-75); PLATELET COUNT 200 10^3/uL (130-400); RED BLOOD COUNT 3.36 10^6/uL (4.35-5.85); RED CELL DISTRIBUTION WIDTH 14.5 % (10.0-14.5); WHITE BLOOD COUNT 18.8 10^3/uL (4.3-11.0)
[2017-05-01] MEDS ORDERED: NS IV 1000 ML 1,000 ML IV SCH (14:45)
[2017-05-01] MEDS ORDERED: ONDANSETRON 4 MG/2 ML (SDV) Z0FRAN IVP ONE (14:45)
--- NOTE | 2017-05-01 15:01 | Diagnostic Imaging Report ---
INDICATION: Decreased appetite and weakness for three days. PA and lateral chest. FINDINGS: Heart size and pulmonary vascularity are normal. There is some infiltrate and/or atelectasis at the left posteromedial lung base. Right lung is clear. IMPRESSION: Patchy consolidation in the left medial lung base could be atelectasis or pneumonia. Dictated by: Dictated on workstation # [id number]
[2017-05-01 15:05] LABS: ALBUMIN 3.2 GM/DL (3.2-4.5); BILIRUBIN,TOTAL 0.4 MG/DL (0.1-1.0); CALCIUM 8.6 MG/DL (8.5-10.1); CREATININE SERUM 2.45 MG/DL (0.60-1.30); TOTAL PROTEIN 6.5 GM/DL (6.4-8.2)
[2017-05-01 15:09] LABS: BAND NEUTROPHILS 14 %; BASOPHILS % (MANUAL) 0 %; EOSINOPHILS % (MANUAL) 0 %; LYMPHOCYTES % (MANUAL) 7 %; MONOCYTES % (MANUAL) 9 %; MYELOCYTES % 1 %; NEUTROPHILS % (MANUAL) 69 %
[2017-05-01 15:10] LABS: ANISOCYTOSIS SLIGHT
[2017-05-01 15:11] LABS: VALPROIC ACID 51.5 UG/ML (50.0-100.0)
--- NOTE | 2017-05-01 15:25 | Diagnostic Imaging Report ---
PROCEDURE: CT abdomen and pelvis without contrast. TECHNIQUE: Multiple contiguous axial images were obtained through the abdomen and pelvis without the use of intravenous contrast. INDICATION: Weakness, altered mental status, diarrhea. COMPARISON: 05/06/2016. FINDINGS: There are airspace and groundglass opacities in the left lower lobe which are new since the prior study. The heart is normal in size. There is no pericardial effusion. The interventricular septum is visible. There is motion artifact in this study. No focal lesions are seen in the liver. The spleen appears normal. The pancreas appears normal, although there is diffuse mesenteric edema and it is difficult to exclude peripancreatic edema. There is severe bilateral hydronephrosis, left worse than right, with the left renal collecting system measuring up to 11.1 x 8.5 cm. There is severe bilateral hydroureter. No renal calculi are seen. The urinary bladder is markedly distended, with peripheral trabeculation, which may be from chronic outlet obstruction. No stones are seen in the bilateral ureters or bladder. Postsurgical changes are noted at the prostate. The bowel loops are nondistended without evidence of obstruction. Moderate stool is seen throughout the colon. There is mild fluid in the pelvis and abdomen. No free air is seen. There is a dysplastic appearance of the right acetabulum and remodeling of the right femoral head with lateral subluxation at the right hip, stable since the prior study. Fixation hardware is noted in the proximal right femur. No acute fracture is seen. IMPRESSION: 1. Extreme bilateral hydroureteronephrosis, left worse than right with marked distention of the urinary bladder. No stones are seen. This is worsened since May 2016. 2. Moderate stool in the colon. 3. Anemia. 4. Small amount of free fluid in the abdomen and pelvis. Dictated by: Dictated on workstation # [id number]
[2017-05-01 15:57] LABS: BILIRUBIN,URINE NEGATIVE (NEGATIVE); CLARITY,URINE SLIGHTLY CLOUDY; COLOR,URINE YELLOW; GLUCOSE, URINE (UA) NEGATIVE (NEGATIVE); KETONES,URINE NEGATIVE (NEGATIVE); LEUKOCYTE ESTERASE ,URINE 3+ (NEGATIVE); NITRITE,URINE NEGATIVE (NEGATIVE); PH,URINE 6 (5-9); PROTEIN,URINE 2+ (NEGATIVE); UROBILINOGEN,URINE NORMAL (NORMAL)
[2017-05-01 16:06] LABS: BACTERIA,URINE TRACE /HPF; WBC,URINE TNTC /HPF
[2017-05-01] MEDS ORDERED: PIPERACILLIN SODIUM/TAZOBACTAM 4.5 GM in NS (IVPB) 100 ML IV ONE (16:30)
[2017-05-01 17:43] VITALS: BP 152/94
== END 2017-05-01 17:43 | disposition short-term general hospital (02) ==
LOC: EDUNIT# 13:55 → ER 13:57
DX: J18.1 Lobar pneumonia, unspecified organism (principal); A41.9 Sepsis, unspecified organism; N32.0 Bladder-neck obstruction; R79.89 Other specified abnormal findings of blood chemistry; G40.909 Epilepsy, unspecified, not intractable, without status epilepticus; G14 Postpolio syndrome; F41.9 Anxiety disorder, unspecified; F22 Delusional disorders; Z87.19 Personal history of other diseases of the digestive system; Z88.8 Allergy status to other drugs, medicaments and biological substances; Z79.52 Long term (current) use of systemic steroids
CPT/HCPCS: 36415; 51702; 71046; 74176; 80053; 80164; 81000; 83605; 85007; 85027; 87040; 87088; 87186; 96361; 96365; 96375

== ENCOUNTER 2017-06-30 15:59 | Inpatient (IN) | payer MEDICARE, MEDICAID ==
[~2017-06-30] VITALS: Ht 175.3 cm; Wt 75.4 kg
--- OUTSIDE RECORDS SUMMARY | 2017-06-30 16:05 | XMS REPORT ---
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 Active 73620860 Problem Acute pain due to trauma 338.11 Active 301054128 Problem Delusional disorders F22 Active 42605527 Problem Intellectual disability F79 Active 82894477 Problem Delusional disorder 297.1 Active 92153540 Problem Unspecified psychosis 298.9 Active 80712907 Problem Severe intellectual disability F72 Active 48993374 Problem Unspecified episodic mood disorder 296.90 Active 282150780 ALLERGIES Substance Reaction Event Type Date Status Ativan "hyper" Drug Allergy Oct, Active ENCOUNTERS Encounter Location Date Diagnosis [facility] [id number] [place] [address] [phone] Jun, [facility] [id number] [place] [address] [phone] Jun, Dental caries K02.9 [facility] [address] [place] [address] [id number] May, Encounter for dental examination Z01.20 [facility] [id number] [place] [address] [phone]- 1545 Mar, [facility] [address] [place] [address] 62851- 7198 Mar, [facility] [address] [id number], [place] [address] 2696 Mar, Severe intellectual disability F72 [facility] [id number] [place] [address] [id number] Jan, Encounter for dental examination Z01.20 [facility] [address] [id number], [place] [address] 2786 Dec, Severe intellectual disability F72 [facility] [id number] [place] [address] [id number] Nov, Encounter for dental examination Z01.20 [facility] [address] [id number] [place] [address] 97298- 8996 Oct, [facility] [address] [facility] [id number] [place] [address] 54178- 4818 Oct, Severe intellectual disability F72 [facility] [address] [facility] [id number] [place] [address] 996562- 9912 Aug, [facility] [address] [facility] [id number] [place] [address] 53277- 2845 Aug, Severe intellectual disability F72 [facility] [address] [facility] [id number] [place] [address] 19668- 7311 Aug, Severe intellectual disability F72 [facility] [address] [place] [address] [id number] Aug, Dental examination Z01.20 [facility] [address] [facility] [id number] [place] [address] 77121- 0396 Aug, Mood disorder F39 and Unspecified intellectual disabilities F79 [facility] [address] [facility] [id number] [place] [address] 701748- 8483 Apr, Mood disorder F39 ; Delusional disorders F22 and Intellectual disability F79 [facility] [address] [facility] [id number] [place] [address] 89533- 0010 Mar, [facility] [id number] [place] [address] 16263- 7696 Mar, [facility] [address] [id number], [place] [address] 5705 Mar, [facility] [address] [address] Mar, Encounter for dental examination and cleaning without abnormal findings Z01.20 [facility] [address] [address] Dec, [facility] [id number] [place] [address] [id number] Dec, Encounter for dental examination Z01.20 [facility] [address] [place] [address] 21785- 2356 Aug, Encounter for jail current azathioprine therapy Z79.899 ; Unspecified mood [affective] disorder F39 ; Encounter for long-term ( current) use of other medications V58.69 ; Delusional disorder F22 ; Unspecified intellectual disabilities F79 and 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 [facility] [address] [id number] [address] 6703 Aug, Unspecified mood [affective] disorder F39 ; Delusional disorder F22 ; Unspecified intellectual disabilities F79 and 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 [facility] [address] [id number] [phone] July, Dental examination Z01.20 [facility] [address], [place] [address] 1456 July, Encounter for immunization Z23 [facility] [address] [address] 6837 July, [facility] [id number] [place] [address] 35509- 2538 Jun, [facility] [address], [place] [address] 8261 Jun, [facility] [address], [place] [address] 0754 May, [facility] [id number] [place] [address] 12535- 1763 May, [facility] [id number] [place] [address] 03856- 5793 May, 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 ; Mood disorder F39 ; Delusional disorder F22 and Unspecified intellectual disabilities F79 [facility] [id number] [place] [address] [id number] May, Dental examination Z01.20 [facility] [id number] [place] [address] 41120- 1823 May, [facility] [id number] [place] [address] 45764- 6299 Apr, Mood disorder F39 [facility] [id number] [place] [address] 48780- 5058 Apr, [facility] [id number] [place] [address] 75114- 5973 Apr, [facility] [id number] [place] [address] 34319- 4681 Apr, [facility] [address] [place] [address] 03796- 5278 Apr, [facility] [address] [place] [address] 02605- 1722 Apr, [facility] [address] [place] [address] [id number] Mar, Encounter for dental examination Z01.20 [facility] [id number] [place] [address] 726729- 9947 11 Mar, 2015 Encounter for immunization Z23 [facility] [id number] [place] [address] 47748741- 2699 Jan, [facility] [address], [place] [address]- 6365 Jan, Encounter for immunization Z23 [facility] [id number] [place] [address] 848876- 4326 Jan, Encounter for PPD test Z11.1 and Encounter for immunization Z23 [facility] [id number] [place] [address] 312745- 1605 Jan, [facility] [id number] [place] [address] 21449- 9177 Dec, Unspecified mood [affective] disorder F39 ; Psychosis F29 and Unspecified intellectual disabilities F79 [facility] [id number] [place] [address] 082270- 9483 Dec, [facility] [address], [place] [address]- 5343 Nov, [facility] [id number] [place] [address] [id number] Oct, Dental examination V72.2 [facility] [id number] [place] [address] 12294- 2002 Aug, Unspecified psychosis 298.9 ; Unspecified episodic mood disorder 296.90 ; Delusional disorder 297.1 and Unspecified mental retardation 319 [facility] [address], [place] [address]- 9310 Jun, [facility] [id number] [place] [address] 63234- 6600 Jun, [facility] [address], [place] [address]- 4065 May, [facility] [id number] [place] [address] 743763- 9861 May, [facility] [address] 7844 May, [facility] [id number] [place] [address]- 8334 May, [facility] [address] [id number] [place] [address]- 6963 Apr, 2014 [facility] [place] [facility] [address] [id number] [place] [address]- 5314 Apr, 2014 [facility] [address] [id number] [place] [address]- 6430 Apr, 2014 [facility] [place] [facility] [address] [id number] [place] [address]- 7319 Apr, 2014 [facility] [place] [facility] [address] [id number] [place] [address]- 4931 Apr, 2014 [facility] [address] [id number] [place] [address]- 5778 Apr, 2014 [facility] [place] [facility] [address] [id number] [place] [address]- 0434 Dec, [facility] [address] [id number] [place] [address]- 4398 Oct, [facility] [address] [id number] [place] [address]- 0396 Oct, [facility] [address] [id number] [place] [address]- 9943 Oct, [facility] [place] [facility] [address] [id number] [place] [address]- 0586 Oct, [facility] [address] [id number] [place] [address]- 1382 Oct, [facility] [address] [place] [id number] Oct [facility] [place] [facility] [address] [id number] [place] [address]- 1655 Oct, [facility] [address] [id number] [place] [address]- 9389 July, [facility] [address] [id number] [place] [address]- 5494 July, [facility] [place] [facility] [address] [id number] [place] [address]- 7054 July, [facility] [place] [facility] [address] [id number] [place]60 July, [facility] [place] [facility] [address] [id number] [place] [address]- 0600 Apr, [facility] [place] [facility] [address] [id number] [place] [address]- 8400 Apr, [facility] [place] [facility] [address] [id number] [place] [address]- 8681 Apr, [facility] [place] [facility] [address] [id number] [place] [address]- 3846 Apr, [facility] [place] [facility] [address] [id number] [place] [address]- 5150 Mar, [facility] [place] [facility] [address] [id number] [place] [address]- 2314 Mar, [facility] [place] [facility] [address] [facility] [id number], [place] [address]- 2717 Jan, [facility] [place] [facility] [address] [id number], [place] [address]- 8637 Jan, [facility] [place] [facility] [address] [id number], [place] [address]- 5011 Jan, [facility] [place] [facility] [address] [id number] [place] [address]- 9857 Jan, [facility] [place] [facility] [address] [id number] [place] [address]- 2489 Jan, [facility] [place] [facility] [address] [id number], [place] [address]- 4469 Jan, [facility] [place] [facility] [address] [id number], [place] [address]- 5243 Jan, [facility] [place] [facility] [address] [id number] [place] [address]- 1587 Jan, [facility] [place] [facility] [address] [id number] [place] [address]- 6836 Jan, [facility] [place] [facility] [address] [id number] [place] [address]- 3769 Jan, [facility] [place] [facility] [address] [id number] [place] [address]- 5294 Dec, [facility] [place] [facility] [address] [id number] [place] [address]- 6932 Dec, [facility] [place] [facility] [address] [id number] [place] [address]- 4298 Dec, [facility] [place] [facility] [address] [facility] [id number] [place] [address]- 6197 Dec, [facility] [place] [facility] [address] [id number] [place] [address]- 7445 Nov, [facility] [place] [facility] [address] [facility] [id number] [place] [address]- 5581 Nov, [facility] [place] [facility] [address] [facility] [id number] [place] [address]- 4094 Oct, [facility] [place] [facility] [address] [id number] [place] [address]- 8210 Oct, [facility] [place] [facility] [address] [id number], [place] [address]- 1218 Oct, [facility] [place] [facility] [address] [id number] [place] [address]- 0143 Oct, [facility] [place] [facility] [address] [facility] [id number] [place] [address]- 2013 Oct, [facility] [place] [facility] [address] [facility] [id number] [place] [address]- 7135 Aug, [facility] [place] [facility] [address] [id number] [place] [address]- 0242 Aug, [facility] [address] [id number] [place] [address]- 1570 Aug, [facility] [place] [facility] [address] [id number] [place] [address]- 5537 Aug, [facility] [place] [facility] [address] [id number] [place] [address]- 3428 July, [facility] [place] [facility] [address] [id number] [place] [address]- 2347 July, [facility] [place] [facility] [address] [id number] [place] [address]- 2421 July, [facility] [place] [facility] [address] [id number] [place] [address]- 6799 Jun, [facility] [place] [facility] [address] [id number] [place] [address]- 8900 Jun, [facility] [place] [facility] [address] [id number] [place] [address]- 5453 May, [facility] [place] [facility] [address] [id number] [place] [address]- 9479 Apr, [facility] [place] [facility] [address] [id number] [place] [address]- 4113 Apr, [facility] [place] [facility] [address] [id number] [place] [address]- 2735 Apr, [facility] [place] [facility] [address] [id number] [place] [address]- 4453 18 Apr, 2012 [facility] [place] [facility] [address] [id number] [place] [address]84 15 Apr, 2012 [facility] [place] [facility] [address] [id number] [place] [address]- 1182 Mar, [facility] [place] [facility] [address] [id number], [place] [address]- 4575 Mar, [facility] [id number], [place] [address]- 7048 Mar, [facility] [address], [place] [address]- 7903 Mar, [facility] [id number], [place] [address]- 6964 Jan, [facility] [address] 4032 Jan, [facility] [id number], [place] [address]- 5876 Jan, [facility] [address], [place] [address]- 0830 Jan, [facility] [address], [place] [address]- 9083 Nov, [facility] [id number], [place] [address]- 8371 Oct, IMMUNIZATIONS No Known Immunizations SOCIAL HISTORY Never Assessed REASON FOR VISIT f/u [place]ow PLAN OF CARE Activity Details Follow Up 2 Months Reason: VITAL SIGNS Height 70 in 2016-10-22 Weight 194 lbs 2016-10-22 Heart Rate 84 bpm 2016-10-22 Respiratory Rate 20 2016-10-22 BMI 27.83 kg/m2 2016-10-22 Blood pressure systolic 114 mmHg 2016-10-22 Blood pressure diastolic 70 mmHg 2016-10-22 MEDICATIONS Medication Instructions Dosage Frequency Start Date End Date Duration Status Xanax 1 MG Orally Once a day prior to medical appts 1 tablet May, Active Tums 500 MG Orally Four times a day 1 tablet 6h Active Benadryl 25 MG Orally every 6 hrs 1 capsule as needed 6h Active Acetaminophen 500 mg 1 Tablet by Oral route q4hrs prn pain Nov, Active Triple Antibiotic 5-400-5000 Externally Once a day 1 application to affected area 24h Active Lyrica 25 MG TAKE 1 CAPSULE ORALLY EVERY EVENING Active Calcium 600 + D 600-200 MG-UNIT Active Throat Lozenges Active Bethanechol Chloride 50 MG Orally 4 times a day 1 tablet on an empty stomach 6h Active Lyrica 50 MG Orally Once a day in the AM 1 capsule Active Abilify 5 MG Orally everynight 1 tablet 30 days Active Depakote 500 mg Orally Twice a day 1 tablet 12h 30 days Active Chowan 650 MG Active Culturelle by oral route po qd prn for healthy BMs Apr, Active Docusate Sodium 100 mg 1 Capsule by Oral route 2 times per day Nov, Active Opcon-A 0.09934-7.315 % 1-2 drop by opthalmac route prn redness and swelling of eyes from allergies Nov, Active Loratadine 10 mg 1 Tablet by Oral route 1 time per day Nov, Active Pepto-Bismol 262 MG Orally 8 time(s) a day 2 tablets as needed Active Ketoconazole 2 % Active 1 Plus 1 Active Polyethylene Glycol 3350 17 gram 2 times per day Apr, Active Calamine Active Mucinex 600 MG Orally every 12 hrs 1 tablet as needed 12h Active Desmopressin Acetate 0.2 MG Orally 3 times a day 1 tablet 8h Active Senna-S Orally 2 times a day 2 tablets 12h Apr, Active Gold Rosario Foot Powder Max St Active fluticasone 50 mcg/actuation 2 Nasal Funk by Nasal route 1 time per day qHS Apr, Active Benztropine Mesylate 2 MG Orally twice a day 1 tablet 12h 30 days Active Hydrocortisone 0.5 % Externally Twice a day 1 application to affected area 12h Active Tussin 100 MG/5ML Orally every 4 hrs 10 ml as needed 4h Active RESULTS No Results PROCEDURES Procedure Date Ordered Result Body Site [facility] VISIT ESTABLISHED PATIENT Oct 22, 2016 PSYTX COMPLEX INTERACTIVE Oct 22, 2016 INSTRUCTIONS MEDICATIONS ADMINISTERED No Known Medications MEDICAL (GENERAL) HISTORY Type Description Date Medical History Moderate IDD Medical History Severe Adaptive Behavior DO Medical History Convulsions Medical History Post-Polio Syndrome Medical History Mood DO Medical History Cerebral Palsy Hospitalization History [facility]- Weak, Unaware and diarrhea 2017
--- OUTSIDE RECORDS SUMMARY | 2017-06-30 16:09 | XMS REPORT | Continuity of Care Document ---
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 11/20/2011 BRANDON WALDRON DDS 298.9 P PSYCHOSIS NOS 11/20/2011 BRANDON WALDRON DDS 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 11/20/2011 WHITE DDS, BRANDON Perea 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 11/20/2011 MULLER DDS, ANNA 298.9 P PSYCHOSIS NOS 11/20/2011 MULLER DDS, ANNA 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 11/20/2011 MULLER DDS, ANNA 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 11/20/2011 MJ 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, [place] 298.9 P PSYCHOSIS NOS 11/20/2011 MJ 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, [place] 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 11/20/2011 MJ 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, [place] 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 11/20/2011 WHITE DDS, FREDDIE J 298.9 P PSYCHOSIS NOS 11/20/2011 WHITE DDS, FREDDIE J 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 11/20/2011 WHITE DDS, FREDDIE J 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 11/20/2011 298.9 P PSYCHOSIS NOS 11/20/2011 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 11/20/2011 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 11/20/2011 MJ 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, [place] 298.9 P PSYCHOSIS NOS 11/20/2011 MJ 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, [place] 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 11/20/2011 MJ 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, [place] 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 11/20/2011 MJ 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, [place] 298.9 P PSYCHOSIS NOS 11/20/2011 MJ 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, [place] 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 11/20/2011 MJ 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, [place] 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 02/27/2012 V58.69 high [...] ANNA V58.69 high risk medication 02/27/2012 MJ 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, [place] V58.69 high risk medication 02/27/2012 WHITE DDS, FREDDIE J V58.69 high risk medication 02/27/2012 MJ 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, [place] V58.69 high risk medication 02/27/2012 MJ 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, [place] V58.69 high risk medication 03/20/2012 DAVID [...] ACUTE PAIN DUE TO TRAUMA 03/20/2012 MJ 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, [place] 312.30 I IMPULSE CONTROL DISORDER NOS 03/20/2012 MJCARA NELSONN, [place] 338.11 PAIN - ACUTE PAIN DUE TO TRAUMA 03/20/2012 MJ 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, [place] 312.30 I IMPULSE CONTROL DISORDER NOS 03/20/2012 MJ 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, [place] 338.11 PAIN - ACUTE PAIN DUE [...] DDSANNA 307.47 SI DYSSOMNIA NOS 07/01/2012 MJ 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, [place] 296.90 MOOD DISORDER NOS 07/01/2012 MJ 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, [place] 307.47 SI DYSSOMNIA NOS 07/01/2012 WHITE DDS, FREDDIE J 296.90 MOOD DISORDER NOS 07/01/2012 WHITE DDS, FREDDIE J 307.47 SI DYSSOMNIA NOS 07/01/2012 MJ 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, [place] 296.90 MOOD DISORDER NOS 07/01/2012 MJ 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, [place] 307.47 SI DYSSOMNIA NOS 07/01/2012 MJ 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, [place] 296.90 MOOD DISORDER NOS 07/01/2012 MJ 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, [place] 307.47 SI DYSSOMNIA NOS 04/19/2013 RASHAD GAN MD 297.1 P DELUSIONAL DIS 04/19/2013 WHITE DDS BRANDON D 297.1 P DELUSIONAL DIS 04/19/2013 YOHANA HARRISSANNA 297.1 P DELUSIONAL DIS 04/19/2013 MJ 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, [place] 297.1 P DELUSIONAL DIS 04/19/2013 WHITE DDSFREDDIE J 297.1 P DELUSIONAL DIS 04/19/2013 MJ 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, [place] 297.1 P DELUSIONAL DIS 04/19/2013 MJ 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, [place] 297.1 P DELUSIONAL DIS 01/19/2014 Ot [...] TONYA BLOOD DO Ot Y92.193 BEDROOM IN [facility] RESIDENTIAL INSTITUTION A 10/25/2015 TONYA BLOOD DO [...] TONYA BLOOD DO Ot Y92.193 BEDROOM IN [facility] RESIDENTIAL INSTITUTION A 10/26/2015 TONYA BLOOD DO [...] PAIN IN LEFT FOOT 11/13/2015 TASHIA HURLEY 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 Ot R29.6 REPEATED FALLS 11/13/2015 TASHIA HURLEY APRN Ot R60.9 EDEMA, UNSPECIFIED 11/13/2015 TASHIA HURLEY APRN Ot Z79.899 OTHER BRIQUETTING MACHINE OPERATOR (CURRENT) DRUG THERAPY 12/04/2015 TASHIA HURLEY APRN Ot M25.572 PAIN IN LEFT ANKLE AND JOINTS OF LEFT FO 12/04/2015 TASHIA HURLEY APRN Ot M79.662 PAIN IN LEFT LOWER LEG 12/04/2015 TASHIA HURLEY APRN Ot M79.672 PAIN IN LEFT FOOT 12/04/2015 TASHIA HURLEY 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 Ot R29.6 REPEATED FALLS 12/04/2015 TASHIA HURLEY APRN Ot R60.9 EDEMA, UNSPECIFIED 12/04/2015 TASHIA HURLEY APRN Ot Z79.899 OTHER BRIQUETTING MACHINE OPERATOR (CURRENT) DRUG THERAPY 12/07/2015 TASHIA HURLEY APRN Ot M25.572 PAIN IN LEFT ANKLE AND JOINTS OF LEFT FO 12/07/2015 TASHIA HURLEY 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 Ot M79.662 PAIN IN LEFT LOWER LEG 12/07/2015 TASHIA HURLEY Buck DELA CRUZ Ot M79.672 PAIN IN LEFT FOOT 12/07/2015 TASHIA HURLEY Buck DELA CRUZ Ot R29.6 REPEATED FALLS 12/07/2015 TASHIA HURLEY Buck DELA CRUZ Ot R60.9 EDEMA, UNSPECIFIED 12/07/2015 TASHIA HURLEY Buck DELA CRUZ Ot Z79.899 OTHER BRIQUETTING MACHINE OPERATOR (CURRENT) DRUG THERAPY 05/01/2016 Ot 331.9 CEREB [...] HURLEY Buck DELA CRUZ Ot Z79.899 OTHER CUSTODIAL (CURRENT) DRUG THERAPY 05/02/2016 GABINONDER DOHENRIQUETISH S Ot N28.1 CYST OF KIDNEY, ACQUIRED 05/02/2016 ORENDER DO, TISH S Ot R10.84 GENERALIZED ABDOMINAL PAIN 05/03/2016 ORENDER DO, TISH S Ot N28.1 CYST OF KIDNEY, ACQUIRED 05/03/2016 ORENDER DO, TISH S Ot R10.84 GENERALIZED ABDOMINAL PAIN 05/03/2016 ORENDER DO, TISH S Ot N28.1 CYST OF KIDNEY, ACQUIRED 05/03/2016 ORENDER DO, TISH S Ot R10.84 GENERALIZED ABDOMINAL PAIN 05/08/2016 ORENDER DO, TISH S Ot R10.11 RIGHT UPPER QUADRANT PAIN 05/08/2016 TISH NOE DO Ot R74.8 ABNORMAL LEVELS OF OTHER SERUM ENZYMES 05/23/2016 TISH NOE DO Ot N28.1 CYST OF KIDNEY, ACQUIRED 05/23/2016 TISH NOE DO Ot R10.84 GENERALIZED ABDOMINAL PAIN 05/29/2016 TISH NOE DO Ot N28.1 CYST OF KIDNEY, ACQUIRED 05/29/2016 TISH NOE DO Ot R10.84 GENERALIZED ABDOMINAL PAIN 05/30/2016 KELL, GENE JEWELRY ENAMELER Ot K59.00 CONSTIPATION, UNSPECIFIED 05/30/2016 KELL, GENE JEWELRY ENAMELER Ot K80.20 CALCULUS OF GALLBLADDER W/O CHOLECYSTITI 05/30/2016 KELL, GENE JEWELRY ENAMELER Ot N39.0 URINARY TRACT INFECTION, SITE NOT SPECIF 05/30/2016 KELL, GENE JEWELRY ENAMELER Ot R19.7 DIARRHEA, UNSPECIFIED 05/30/2016 KELL, GENE JEWELRY ENAMELER Ot R93.49 ABN RADLGC FINDINGS ON DX IMAGING OF OT 05/30/2016 KELL, GENE JEWELRY ENAMELER Ot Z79.899 OTHER BRIQUETTING MACHINE OPERATOR (CURRENT) DRUG THERAPY 05/30/2016 TISH NOE DO Ot R10.11 RIGHT UPPER QUADRANT PAIN 05/30/2016 ITSH NOE DO Ot R74.8 ABNORMAL LEVELS OF OTHER SERUM ENZYMES 05/31/2016 KELL, GENE JEWELRY ENAMELER Ot K59.00 CONSTIPATION, UNSPECIFIED 05/31/2016 KELL, GENE JEWELRY ENAMELER Ot K80.20 CALCULUS OF GALLBLADDER W/O CHOLECYSTITI 05/31/2016 KELL, GENE JEWELRY ENAMELER Ot N39.0 URINARY TRACT INFECTION, SITE NOT SPECIF 05/31/2016 KELL, GENE JEWELRY ENAMELER Ot R19.7 DIARRHEA, UNSPECIFIED 05/31/2016 KELL, GENE JEWELRY ENAMELER Ot R93.49 ABN RADLGC FINDINGS ON DX IMAGING OF OT 05/31/2016 KELL, GENE JEWELRY ENAMELER Ot Z79.899 OTHER BRIQUETTING MACHINE OPERATOR (CURRENT) DRUG THERAPY 06/01/2016 KELL, GENE JEWELRY ENAMELER Ot K59.00 CONSTIPATION, UNSPECIFIED 06/01/2016 KELL, GENE JEWELRY ENAMELER Ot K80.20 CALCULUS OF GALLBLADDER W/O CHOLECYSTITI 06/01/2016 KELL, GENE JEWELRY ENAMELER Ot N39.0 URINARY TRACT INFECTION, SITE NOT SPECIF 06/01/2016 GENE CASTORENA Ot R19.7 DIARRHEA, UNSPECIFIED 06/01/2016 GENE CASTORENA Ot R93.49 ABN RADLGC FINDINGS ON DX IMAGING OF OTH 06/01/2016 GENE CASTORENA Ot Z79.899 OTHER BRIQUETTING MACHINE OPERATOR (CURRENT) DRUG THERAPY 06/03/2016 ORENDER DO, TISH S Ot R10.11 RIGHT UPPER QUADRANT PAIN 06/03/2016 ORENDER DO, TISH S Ot R74.8 ABNORMAL LEVELS OF OTHER [...] K59.09 OTHER CONSTIPATION 01/09/2017 JASON, FATUMA R 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 Ot R22.42 LOCALIZED SWELLING, MASS AND LUMP, LEFT 01/09/2017 JASON, FATUMA R 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 Ot R22.42 LOCALIZED SWELLING, MASS AND LUMP, LEFT 01/09/2017 JASON, FATUMA R 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 Ot R22.42 LOCALIZED SWELLING, MASS AND LUMP, LEFT 01/09/2017 JASON, FATUMA R 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 Ot G57.93 UNSPECIFIED MONONEUROPATHY OF BILATERAL 01/09/2017 JASON, FATUMA R 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 Ot R22.42 LOCALIZED SWELLING, MASS AND LUMP, LEFT 01/09/2017 Ot 331.9 CEREB DEGENERATION NOS 01/09/2017 Ot 780.93 MEMORY LOSS 01/09/2017 Ot V81.5 SCREEN FOR NEPHROPATHY 01/09/2017 Ot 719.45 JOINT PAIN- PELVIS 01/09/2017 Ot 780.97 ALTERED MENTAL STATUS 01/09/2017 Ot 719.45 JOINT PAIN- PELVIS 01/09/2017 WILTON PAUL DO Ot V72.84 EXAM PRE-OPERATIVE NOS 01/09/2017 TASHIA HURLEY 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 Ot M25.572 PAIN IN LEFT ANKLE AND JOINTS OF LEFT FO 01/09/2017 TASHIA HURLEY 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 Ot M79.662 PAIN IN LEFT LOWER LEG 01/09/2017 TASHIA HURLEY 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 Ot M79.672 PAIN IN LEFT FOOT 01/09/2017 TASHIA HURLEY 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 Ot R29.6 REPEATED FALLS 01/09/2017 TASHIA HURLEY 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 Ot R60.9 EDEMA, UNSPECIFIED 01/09/2017 TASHIA HURLEY 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 Ot Z79.899 OTHER BRIQUETTING MACHINE OPERATOR (CURRENT) DRUG THERAPY 01/09/2017 TISH NOE DO Ot N28.1 CYST OF KIDNEY, ACQUIRED 01/09/2017 TISH NOE DO Ot R10.84 GENERALIZED ABDOMINAL PAIN 01/09/2017 TISH NOE DO Ot R10.11 RIGHT UPPER QUADRANT PAIN 01/09/2017 TISH NOE DO Ot R74.8 ABNORMAL LEVELS OF OTHER SERUM ENZYMES 01/09/2017 MICHELLE GOMEZON R 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 Ot G57.93 UNSPECIFIED MONONEUROPATHY OF BILATERAL 01/09/2017 JASON, FATUMA R 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 Ot R22.42 LOCALIZED SWELLING, MASS AND LUMP, LEFT 01/10/2017 JASON, FATUMA R 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 Ot G57.93 UNSPECIFIED MONONEUROPATHY OF BILATERAL 01/10/2017 JASON, FATUMA R 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 Ot R22.42 LOCALIZED SWELLING, MASS AND LUMP, LEFT 01/31/2017 JASON, FATUMA R 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 Ot R22.43 LOCALIZED SWELLING, MASS AND LUMP, LOWER 04/08/2017 MUSA COLINDRES, FLOWER Finch Ot R60.9 EDEMA, UNSPECIFIED 04/18/2017 MUSA COLINDRES, FLOWER Finch Ot R60.9 EDEMA, UNSPECIFIED 04/21/2017 MUSA COLINDRES, FLOWER Finch Ot R60.9 EDEMA, UNSPECIFIED 04/21/2017 MUSA COLINDRES, FLOWER Finch Ot R60.9 EDEMA, UNSPECIFIED 05/01/2017 DALI MURILLO APRN Ot A41.9 SEPSIS, UNSPECIFIED ORGANISM 05/01/2017 DALI MURILLO APRN Ot F22 DELUSIONAL DISORDERS 05/01/2017 DALI MURILLO APRN Ot F41.9 ANXIETY DISORDER, UNSPECIFIED 05/01/2017 DALI MURILLO APRN Ot G14 POSTPOLIO SYNDROME 05/01/2017 DALI MURILLO APRN Ot G40.909 EPILEPSY, UNSP, NOT INTRACTABLE, WITHOUT 05/01/2017 DALI MURILLO APRN Ot J18.1 LOBAR PNEUMONIA, UNSPECIFIED ORGANISM 05/01/2017 DALI MURILLO APRN Ot N32.0 BLADDER-NECK OBSTRUCTION 05/01/2017 DALI MURILLO APRN Ot R63.0 ANOREXIA 05/01/2017 DALI MURILLO APRN Ot R79.89 OTHER SPECIFIED ABNORMAL FINDINGS OF BLO 05/01/2017 DALI MURILLO APRN Ot Z79.52 CUSTODIAL (CURRENT) USE OF SYSTEMIC STER 05/01/2017 DALI MURILLO APRN Ot Z87.19 PERSONAL HISTORY OF OTHER DISEASES OF TH 05/01/2017 DALI MURILLO APRN Ot Z88.8 ALLERGY STATUS TO OTH DRUG/MEDS/BIOL SUB 05/05/2017 DALI MURILLO APRN Ot A41.9 SEPSIS, UNSPECIFIED ORGANISM 05/05/2017 DALI MURILLO APRN Ot F22 DELUSIONAL DISORDERS 05/05/2017 DALI MURILLO APRN Ot F41.9 ANXIETY DISORDER, UNSPECIFIED 05/05/2017 DALI MURILLO APRN Ot G14 POSTPOLIO SYNDROME 05/05/2017 DALI MURILLO APRN Ot G40.909 EPILEPSY, UNSP, NOT INTRACTABLE, WITHOUT 05/05/2017 DALI MURILLO APRN Ot J18.1 LOBAR PNEUMONIA, UNSPECIFIED ORGANISM 05/05/2017 DALI MURILLO APRN Ot N32.0 BLADDER-NECK OBSTRUCTION 05/05/2017 DALI MURILLO APRN Ot R63.0 ANOREXIA 05/05/2017 DALI MURILLO APRN Ot R79.89 OTHER SPECIFIED ABNORMAL FINDINGS OF BLO 05/05/2017 DALI MURILLO APRN Ot Z79.52 BRIQUETTING MACHINE OPERATOR (CURRENT) USE OF SYSTEMIC STER 05/05/2017 DALI MURILLO APRN Ot Z87.19 PERSONAL HISTORY OF OTHER DISEASES OF TH 05/05/2017 DALI MURILLO APRN Ot Z88.8 ALLERGY STATUS TO OTH DRUG/MEDS/BIOL SUB 05/07/2017 DALI MURILLO APRN Ot A41.9 SEPSIS, UNSPECIFIED ORGANISM 05/07/2017 DALI MURILLO APRN Ot F22 DELUSIONAL DISORDERS 05/07/2017 DALI MURILLO APRN Ot F41.9 ANXIETY DISORDER, UNSPECIFIED 05/07/2017 DALI MURILLO APRN Ot G14 POSTPOLIO SYNDROME 05/07/2017 DALI MURILLO APRN Ot G40.909 EPILEPSY, UNSP, NOT INTRACTABLE, WITHOUT 05/07/2017 DALI MURILLO APRN Ot J18.1 LOBAR PNEUMONIA, UNSPECIFIED ORGANISM 05/07/2017 DALI MURILLO APRN Ot N32.0 BLADDER-NECK OBSTRUCTION 05/07/2017 DALI MURILLO APRN Ot R63.0 ANOREXIA 05/07/2017 DALI MURILLO APRN Ot R79.89 OTHER SPECIFIED ABNORMAL FINDINGS OF BLO 05/07/2017 DALI MURILLO APRN Ot Z79.52 BRIQUETTING MACHINE OPERATOR (CURRENT) USE OF SYSTEMIC STER 05/07/2017 DALI MURILLO APRN Ot Z87.19 PERSONAL HISTORY OF OTHER DISEASES OF TH 05/07/2017 DALI MURILLO APRN Ot Z88.8 ALLERGY STATUS TO [facility] DRUG/MEDS/BIOL SUB 05/07/2017 FLOWER VIGIL MD Ot R60.9 EDEMA, UNSPECIFIED 05/26/2017 FLOWER VIGIL MD, Ot R60.9 EDEMA, UNSPECIFIED 06/25/2017 CATRACHO EM Ot F22 DELUSIONAL DISORDERS 06/25/2017 CATRACHO EM Ot F41.9 ANXIETY DISORDER, UNSPECIFIED 06/25/2017 CATRACHO EM Ot G14 POSTPOLIO SYNDROME 06/25/2017 CATRACHO EM Ot G40.909 EPILEPSY, UNSP, NOT INTRACTABLE, WITHOUT 06/25/2017 CATRACHO EM Ot S01.81XA LACERATION W/O FOREIGN BODY OF OTH PART 06/25/2017 CATRACHO EM Ot S09.90XA UNSPECIFIED INJURY OF HEAD, INITIAL ENCO 06/25/2017 CATRACHO EM Ot W26.8XXA CONTACT WITH OTHER SHARP OBJECT(S), NEC, 06/25/2017 CATRACHO EM Ot Z79.52 BRIQUETTING MACHINE OPERATOR (CURRENT) USE OF SYSTEMIC STER 06/25/2017 CATRACHO EM Ot Z87.19 PERSONAL HISTORY OF OTHER DISEASES OF TH 06/25/2017 CATRACHO EM Ot Z87.440 PERSONAL HISTORY OF URINARY (TRACT) INFE Procedures Code Description [place] [address] PSYCH PHARM MGMT 01/22/2012 00049 ROUTINE VENIPUNCTURE 02/27/2012 05754 LIVER PANEL (LFT) 02/27/2012 37404 LIPID PANEL 02/27/20123585469 GFR CALC (RESULT ONLY) 02/27/2012 68790 VALPROIC ACID / DEPAKOTE 02/28/2012 98340 RENAL PROFILE 02/28/2012 44133 ROUTINE VENIPUNCTURE 03/20/2012 98397 UA LONG DIP 03/20/2012 06927 CBC 03/20/2012 30462 MRI BRAIN W/O CONTRAST 04/02/2012 82891 MRI EXTREMITY, LOWER RIGHT, W/O CONTRAST 04/02/2012 27536 CMP 12/04/2012 63600 LIPID PANEL 12/04/2012 99955 VALPROIC ACID / DEPAKOTE 12/04/2012 61593 CBC 12/04/2012 79425 VALPROIC ACID / DEPAKOTE 04/26/2013 77613 CBC 04/26/2013 08402 CMP 04/26/2013 24649 CMP 10/15/2013 19961 LIPID PANEL 10/15/2013 43801 CBC 10/15/2013 48133 VALPROIC ACID / DEPAKOTE 10/15/2013 Results Test [...] Complete urinalysis with reflex to culture YES NR Comprehensive metabolic panel - 11/10/15 14:00 Serum [...] culture - 11/10/15 14:00 Bacterial urine culture [id number] NRG COLONY COUNT <10,000 NRG FTX;REPORTABLE NO [...] susceptibility test by minimum inhibitory concentration - NR Complete blood count (CBC) with automated white [...] Staphylococcus aureus (MRSA) screening culture NEG NRG Complete blood count (CBC) with automated white blood cell (WBC) differential - 05/01/17 14:34 Blood leukocytes automated count (number/volume) 18.8 10*3/uL 4.3-11.0 Blood erythrocytes automated count (number/volume) 3.36 10*6/uL 4.35-5.85 Venous blood hemoglobin measurement (mass/volume) 11.2 g/dL 13.3-17.7 Blood hematocrit (volume fraction) 32 % 40-54 Automated erythrocyte mean corpuscular volume 96 [foz_us] 80-99 Automated erythrocyte mean corpuscular hemoglobin (mass per erythrocyte) 33 pg 25-34 Automated erythrocyte mean corpuscular hemoglobin concentration measurement ( mass/volume) 35 g/dL 32-36 Automated erythrocyte distribution width ratio 14.5 % 10.0-14.5 Automated blood platelet count (count/volume) 200 10*3/uL 130-400 Automated blood platelet mean volume measurement 9.2 [foz_us] 7.4-10.4 Automated blood neutrophils/100 leukocytes 87 % 42-75 Automated blood lymphocytes/100 leukocytes 5 % 12-44 Blood monocytes/100 leukocytes 8 % 0-12 Automated blood eosinophils/100 leukocytes 0 % 0-10 Automated blood basophils/100 leukocytes 0 % 0-10 Blood neutrophils automated count (number/volume) 16.3 10*3 1.8-7.8 Blood lymphocytes automated count (number/volume) 1.0 10*3 1.0-4.0 Blood monocytes automated count (number/volume) 1.6 10*3 0.0-1.0 Automated eosinophil count 0.0 10*3/uL 0.0-0.3 Automated blood basophil count (count/volume) 0.0 10*3/uL 0.0-0.1 Comprehensive metabolic panel - 05/01/17 14:34 Serum or plasma sodium measurement (moles/volume) 139 mmol/L 135-145 Serum or plasma potassium measurement (moles/volume) 4.0 mmol/L 3.6-5.0 Serum or plasma chloride measurement (moles/volume) 104 mmol/L 98-107 Carbon dioxide 19 mmol/L 21-32 Serum or plasma anion gap determination (moles/volume) 16 mmol/L 5-14 Serum or plasma urea nitrogen measurement (mass/volume) 55 mg/dL 7-18 Serum or plasma creatinine measurement (mass/volume) 2.45 mg/dL 0.60-1.30 Serum or plasma urea nitrogen/creatinine mass ratio 22 NRG Serum or plasma creatinine measurement with calculation of estimated glomerular filtration rate 28 NRG Serum or plasma glucose measurement (mass/volume) 139 mg/dL 70-105 Serum or plasma calcium measurement (mass/volume) 8.6 mg/dL 8.5-10.1 Serum or plasma total bilirubin measurement (mass/volume) 0.4 mg/dL 0.1-1.0 Serum or plasma alkaline phosphatase measurement (enzymatic activity/volume) 242 U/L 40-136 Serum or plasma aspartate aminotransferase measurement (enzymatic activity/ volume) 48 U/L 5-34 Serum or plasma alanine aminotransferase measurement (enzymatic activity/volume ) 53 U/L 0-55 Serum or plasma protein measurement (mass/volume) 6.5 g/dL 6.4-8.2 Serum or plasma albumin measurement (mass/volume) 3.2 g/dL 3.2-4.5 Blood manual differential performed detection - 05/01/17 14:34 Blood monocytes/100 leukocytes 9 % NRG Manual blood segmented neutrophils/100 leukocytes 69 % NRG Blood band neutrophils/100 leukocytes 14 % NRG Manual blood lymphocytes/100 leukocytes 7 % NRG Manual eosinophils/100 leukocytes in nose 0 % NRG Manual blood basophils/100 leukocytes 0 % NRG Blood anisocytosis detection by light microscopy SLIGHT NRG Manual blood myelocytes/100 leukocytes 1 % NRG [id number] - 05/01/17 14:34 [id number] 51.5 ug/mL 50.0-100.0 Bacterial blood culture - 05/01/17 15:05 Bacterial blood culture NG NRG Complete urinalysis with reflex to culture - 05/01/17 15:43 Urine color determination YELLOW NRG Urine clarity determination SLIGHTLY CLOUDY NRG Urine pH measurement by test strip 6 5-9 Specific gravity of urine by test strip 1.010 1.016- 1.022 Urine protein assay by test strip, semi-quantitative 2+ NEGATIVE Urine glucose detection by automated test strip NEGATIVE NEGATIVE Erythrocytes detection in urine sediment by light microscopy 3+ NEGATIVE Urine ketones detection by automated test [...] urine sediment by light microscopy TRACE NRG Crystals detection in urine sediment by light microscopy NONE NRG Casts detection in urine sediment by light microscopy NONE NRG Mucus detection in urine sediment by light microscopy NEGATIVE NRG Complete urinalysis with reflex to culture YES NRG Blood lactic acid measurement (moles/volume) - 05/01/17 15:43 Blood lactic acid measurement (moles/volume) 1.06 mmol/L 0.50-2.00 Bacterial urine culture - 05/01/17 15:43 Bacterial urine culture [id number] NRG COLONY COUNT 10,000/ML - 100,000/ML NRG FTX;REPORTABLE SENSITIVITY REPORTED 05/02 15:50 NRG FREE TEXT ENTRY 3 MIXED PORSCHE <10,000/ML NRG Bacterial blood culture - 05/01/17 15:43 QUANTITY OF GROWTH . NRG Bacterial blood culture SEE COMMEN NRG Bacterial susceptibility panel - 05/01/17 15:43 Oxacillin susceptibility test by minimum inhibitory concentration < = NRG Gentamicin susceptibility test by minimum inhibitory concentration < = NRG Trimethoprim/sulfamethoxazole susceptibility test by minimum inhibitoryconcentration S NRG Vancomycin susceptibility test by minimum inhibitory concentration < = NRG Levofloxacin susceptibility test by minimum inhibitory concentration <= NRG Rifampin susceptibility test by minimum inhibitory concentration <= NRG Tetracycline susceptibility test by minimum inhibitory concentration <= NRG Encounters ACCT No. Visit Date/Time Discharge Status Pt. Type Provider Facility Loc./Unit Complaint [id number] 05/27/2014 13:13:00 05/27/2014 23:59:59 CLS Outpatient ARGENTINA BARKER APRN [id number] 04/14/2014 13:00:00 04/14/2014 23:59:59 CLS Outpatient ARGENTINA BARKER APRN [id number] 11/24/2013 10:27:00 11/24/2013 23:59:59 CLS Outpatient CHIVO DDFREDDIE Zamudio [id number] 10/12/2013 14:39:00 10/12/2013 23:59:59 CLS Outpatient ARGENTINA BARKER APRN [id number] 09/29/2013 15:03:00 09/29/2013 23:59:59 CLS Outpatient YOHANA DDSANNA [id number] 04/29/2013 11:39:00 04/29/2013 23:59:59 CLS Outpatient CHIVO DDBRANDON Zamudio [id number] 04/19/2013 09:36:00 04/19/2013 23:59:59 CLS Outpatient RASHAD GAN MD [id number] 11/20/2012 12:20:00 11/20/2012 23:59:59 CLS Outpatient LORIDAVID HATCH DO [id number] 04/17/2012 14:26:00 04/17/2012 23:59:59 CLS Outpatient LORIGARCIA DAVID F [id number] 03/20/2012 12:36:00 03/20/2012 23:59:59 CLS Outpatient LORIDAVID HATCH DO [id number] 03/20/2012 12:36:00 03/20/2012 23:59:59 CLS Outpatient JOSELYN DO DAVID Erick [id number] 02/27/2012 09:38:00 02/27/2012 23:59:59 CLS Outpatient [id number] 01/21/2012 11:29:00 01/21/2012 23:59:59 CLS Outpatient [id number] 07/01/2012 18:05:00 Document Registration [id number] 06/23/2017 20:05:00 06/23/2017 22:52:00 DIS Outpatient CATRACHO EM [facility] ER FALL/HEAD LAC [id number] 05/01/2017 13:57:00 05/01/2017 17:43:00 DIS Emergency DALI MURILLO APRN [facility] ER WEAK,UNAWARE,DIARRHEA [id number] 04/07/2017 14:34:00 04/07/2017 23:59:59 CLS Outpatient FLOWER VIGIL MD [facility] CARD R60.9,M79.606 [id number] 01/13/2017 08:56:00 01/13/2017 23:59:59 CLS Outpatient 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 [facility] RAD SWOLLEN ERYTHEMIC COOL LOWER EXTRMETIES [id number] 10/28/2016 07:48:00 10/28/2016 23:59:59 CLS Outpatient ANGELA BEATTY MD [facility] ENDO IRON DEFICIENCY, ANEMIA [id number] 10/23/2016 06:08:00 10/23/2016 15:00:00 DIS Outpatient ANGELA BEATTY MD [facility] PREOP IRON DEFICIENCY/ ANEMIA [id number] 06/07/2016 06:30:00 06/07/2016 12:25:00 DIS Outpatient ANGELA BEATTY MD [facility] SDC GALLSTONES [id number] 06/03/2016 12:49:00 06/03/2016 13:10:00 DIS Outpatient ANGELA BEATTY MD [facility] PREOP GALLSTONES [id number] 05/30/2016 11:31:00 05/30/2016 16:48:00 DIS Emergency GENE CASTORENAP [facility] ER DIARRHEA/ABD PAIN FEVER [id number] 05/06/2016 12:00:00 05/06/2016 23:59:59 CLS Outpatient TISH NOE DO [facility] RAD R10.11,R74.8 [id number] 05/01/2016 09:38:00 05/01/2016 23:59:59 CLS Outpatient TISH NOE DO S [facility] RAD R46.89 [id number] 11/10/2015 13:21:00 11/10/2015 23:59:59 CLS Outpatient TASHIA HURLEY 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 [facility] RAD LT FT,ANKLE AND LOWER TIB PAIN,PEDAL EDEMA [id number] 10/25/2015 22:19:00 10/25/2015 23:34:00 DIS Emergency TONYA BLOOD DO [facility] ER FOOT INJ [id number] 10/06/2015 14:22:00 10/06/2015 16:00:00 DIS Outpatient HYUN COLINDRES, KWAN Dee [facility] WOUNDCARE WOUND CARE [id number] 09/26/2015 09:54:00 09/26/2015 12:40:00 DIS Emergency LIBRADO COLINDRES, CARMEN Garcia [facility] ER COSME TO RIGHT LEG [id number] 09/17/2014 01:38:00 09/17/2014 02:29:00 DIS Emergency ERNST VENTURA MD [facility] ER FALL-LAC ABOVE LEFT EYE [id number] 01/25/2014 12:38:00 01/25/2014 15:50:00 DIS Outpatient WILTON PAUL DO [facility] SDC SCREENING [id number] 01/20/2014 07:20:00 01/20/2014 23:59:59 CLS Outpatient WILTON PAUL DO [facility] PREOP SCREENING [id number] 01/19/2014 10:57:00 Document Registration [id number] 03/31/2012 12:50:00 Document Registration [id number] 03/26/2012 12:52:00 Document Registration [id number] 07/23/2011 15:53:00 Document Registration [id number] 09/05/2009 09:09:00 Document Registration 03/201509/26/2016 09:38:58 09/26/2016 23:59:59 CLS Outpatient Tish Noe [id number] 06/04/2017 12:00:00 06/04/2017 23:59:59 CLS Outpatient Tish Noe [facility]
--- NOTE | 2017-06-30 17:42 | Diagnostic Imaging Report ---
INDICATION: Right arm swelling. FINDINGS: There are degenerative changes of the radiocarpal joint. There is no acute fracture or dislocation. There are mild degenerative changes in the elbow. Soft tissues are unremarkable. IMPRESSION: Degenerative changes of the radiocarpal joint. Dedicated wrist films are recommended. Degenerative changes of the elbow as well. Dictated by: Dictated on workstation # [id number]
--- NOTE | 2017-06-30 17:44 | Diagnostic Imaging Report ---
INDICATION: Abdominal pain. Six views were obtained. FINDINGS: Bowel gas pattern is nonspecific. There is no free air. There are no abnormal abdominal calcifications. There is a moderate amount of retained fecal material which likely reflects some degree of constipation. IMPRESSION: Moderate amount of retained fecal material likely reflecting some degree of constipation, otherwise nonspecific bowel gas pattern. No free air. Dictated by: Dictated on workstation # [id number]
--- NOTE | 2017-06-30 17:53 | Diagnostic Imaging Report ---
INDICATION: Hand swelling. Three views were obtained. FINDINGS: There are degenerative changes of the DIP and PIP joints. There is no fracture or dislocation. There appears to be mild soft tissue swelling of the PIP joints. IMPRESSION: Mild degenerative changes of the DIP and PIP joints with some soft tissue swelling of the PIP joints. No fracture or dislocation. Dictated by: Dictated on workstation # [id number]
[2017-06-30 17:57] LABS: BILIRUBIN,URINE NEGATIVE (NEGATIVE); CLARITY,URINE VERY CLOUDY; COLOR,URINE YELLOW; GLUCOSE, URINE (UA) NEGATIVE (NEGATIVE); KETONES,URINE NEGATIVE (NEGATIVE); LEUKOCYTE ESTERASE ,URINE 3+ (NEGATIVE); NITRITE,URINE NEGATIVE (NEGATIVE); PH,URINE 7 (5-9); PROTEIN,URINE 2+ (NEGATIVE); UROBILINOGEN,URINE NORMAL (NORMAL)
[2017-06-30 18:09] LABS: BACTERIA,URINE LARGE /HPF; WBC,URINE TNTC /HPF
[2017-06-30 18:14] LABS: BASOPHILS % (AUTO) 0 % (0-10); EOSINOPHILS # (AUTO) 0.1 10^3/uL (0.0-0.3); EOSINOPHILS % (AUTO) 1 % (0-10); HEMATOCRIT 29 % (40-54); HEMOGLOBIN 10.6 G/DL (13.3-17.7); LYMPHOCYTES # (AUTO) 0.8 X 10^3 (1.0-4.0); LYMPHOCYTES % (AUTO) 11 % (12-44); MEAN CORPUSCULAR HEMOGLOBIN 32 PG (25-34); MEAN CORPUSCULAR HGB CONC 37 G/DL (32-36); MEAN CORPUSCULAR VOLUME 87 FL (80-99); MEAN PLATELET VOLUME 8.5 FL (7.4-10.4); MONOCYTES # (AUTO) 0.7 X 10^3 (0.0-1.0); MONOCYTES % (AUTO) 10 % (0-12); NEUTROPHILS # (AUTO) 5.6 X 10^3 (1.8-7.8); NEUTROPHILS % (AUTO) 78 % (42-75); PLATELET COUNT 348 10^3/uL (130-400); RED BLOOD COUNT 3.32 10^6/uL (4.35-5.85); RED CELL DISTRIBUTION WIDTH 12.5 % (10.0-14.5); WHITE BLOOD COUNT 7.3 10^3/uL (4.3-11.0)
[2017-06-30 18:32] LABS: ALANINE AMINOTRANSFERASE 22 U/L (0-55); ALBUMIN 3.3 GM/DL (3.2-4.5); ALKALINE PHOSPHATASE 98 U/L (40-136); BILIRUBIN,TOTAL 0.4 MG/DL (0.1-1.0); BUN/CREATININE RATIO 15; CALCIUM 8.6 MG/DL (8.5-10.1); CARBON DIOXIDE 25 MMOL/L (21-32); CHLORIDE 77 MMOL/L (98-107); CREATININE SERUM 0.75 MG/DL (0.60-1.30); GFR ESTIMATED > 60; GLUCOSE 90 MG/DL (70-105); POTASSIUM 4.3 MMOL/L (3.6-5.0); TOTAL PROTEIN 6.3 GM/DL (6.4-8.2)
[2017-06-30 18:39] LABS: SODIUM 111 MMOL/L (135-145)
[2017-06-30] MEDS ORDERED: cefTRIAXone INJECTION 1,000 MG in NS (IVPB) 100 ML IV ONE (19:00)
--- NOTE | 2017-06-30 19:08 | ED General ---
General Chief Complaint: Neurological Problems Stated Complaint: ABNORMAL BEHAVIOR/R HAND SWELLING;CONSTIPATION Nursing Triage Note: pt brought to ed via wheelchair haven support, accompanied by journeyman powerhouse operator and staff worker. journeyman powerhouse operator states pt has been unresposive to staff, not eating, and just hasn't "been himself". journeyman powerhouse operator also states pt has right hand swelling, hasn't had a bm in 6 days, and has hx of uti. pt appears to have some developmental delays, but pt was able to state name and correctly. journeyman powerhouse operator states pt's neurological status and cognition are better at this time than they have been recently. Nursing Sepsis Screen: No Definite Risk Source of Information: Caregiver Exam Limitations: Other (PT UNABLE TO GIVE ANY RELEVANT INFORMATION--CAN ANSWER A FEW YES/NO OR 1 WORD ANSWERS) History of Present Illness Date Seen by Provider: Jun 30, 2017 Time Seen by Provider: 16:37 Initial Comments PT ARRIVES VIA POV IN A WHEELCHAIR WITH 2 CARETAKERS- FROM [facility] SUPPORT [employer] D[employer]ITAL CONTROLS TECHNICAL OFFICER REPORTS THAT PT HAS BEEN UNRESPONSIVE TO STAFF ALL DAY--AWAKE BUT WOULD NOT TALK OR RESPOND IN ANY WAY. SHE STATES HE IS BETTER NOW AND MORE HIS NORMAL SELF SHE ALSO REPORTS THAT HE HAS HAD SWELLING TO RIGHT HAND, WRIST AND FOREARM TODAY --NO KNOWN INJURY. HAS BEEN EATING ALOT OF FAST FOOD THE LAST COUPLE OF DAYS ALSO C/O CONSTIPATION X 6 DAYS--LAST BM 6 DAYS AGO ALSO REPORTS THAT URINE HAS BEEN CLOUDY--PT HAS INDWELLING MARTINS CATHETER. NORMAL URINE OUTPUT PT HAS NOT BEEN EATING TODAY BUT HAS BEEN DRINKING WATER--1 CUP EVERY HOUR-- NORMAL FOR PT ONLY THING PT VERBALIZES IS "BETTER" WHEN ASKED ANY QUESTION. DOES INTERACT A LITTLE WITH CARETAKERS AND ER STAFF PT WAS HERE 05/01/17 FOR VITO PNEUMONIA PT HERE 06/23/17 FOR HEAD INJURY WITH FOREHEAD LACERATION AFTER FALLING OFF TOILET. 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 CANALES Allergies and Home Medications Allergies Coded Allergies: lorazepam (Unverified Adverse Reaction, Intermediate, HYPERACTIVITY, 01/25) Home Medications Acetaminophen 500 Mg Tablet, 500 MG PO Q6H PRN for pain/fever, (Reported) [place] 650 Mg Tablet, 650 MG PO QID, (Reported) Aripiprazole 5 Mg Tablet, 5 MG PO DAILY, (Reported) Benztropine Mesylate 2 Mg Tablet, 2 MG PO BID, (Reported) [place] Chloride 50 Mg Tablet, 50 MG PO ACHS, (Reported) Calcium Carbonate 200 Mg Tab.chew, 200 MG PO PRN PRN for HEARBURN, (Reported) Calcium Carbonate/Vitamin D3 1 Each Tablet, 1 TAB PO DAILY, (Reported) Desmopressin Acetate 0.2 Mg Tablet, 0.6 MG PO HS, (Reported) take 3 (.2mg) tabs Divalproex Sodium 500 Mg Tab.er.24h, 500 MG PO BID, (Reported) Docusate Sodium 100 Mg Capsule, 100 MG PO BID, (Reported) Fluticasone Propionate 50 Mcg/16 G [place], 1 SPRAY NSEACH BID, (Reported) Lactobacillus Rhamnosus 1 Cap Capsule, 1 CAP PO DAILY PRN for stools, (Reported) Loratadine 10 Mg Capsule, 10 MG PO HS, (Reported) Pnv With Ca,No.72/Iron,Carb/Fa 1 Each Tablet, 1 EACH PO DAILY, (Reported) Polyethylene Glycol 3350 255 Gm Powder, 17 GM PO BID, (Reported) Pregabalin 50 Mg Capsule, 50 MG PO DAILY, (Reported) Pregabalin 25 Mg Capsule, 25 MG PO HS, (Reported) Senna 1 Tab Tablet, 2 TAB PO BID, (Reported) Patient Home Medication List Home Medication List Reviewed: Yes Review of Systems Constitutional: no symptoms reported; No fever; malaise, weakness Gastrointestinal: see HPI, constipation Genitourinary: see HPI Psychiatric/Neurological: See HPI, Pre-Existing Deficit (LEFT SIDED CONTRACTURES, MR/DEVELOPMENTAL DISABILITY) Past Yschyug-Lypzen-Kolfoo Hx Patient Social History Alcohol Use: Denies Use Recreational Drug Use: No Smoking Status: Unknown if Ever Smoked Recent Foreign Travel: No Contact w/Someone Who Travel: No Recent Infectious Disease Expo: No Recent Hopitalizations: No Physical Abuse: No Sexual Abuse: No Immunizations Up To Date Tetanus Booster (TDap): Less than 5yrs Date of Pneumonia Vaccine: Jan 23, 2015 Date of Influenza Vaccine: Dec 05, 2015 Seasonal Allergies Seasonal Allergies: Yes Past Medical History Surgeries: Yes (SURGERY ON ALL LEFT TOES; EGD/COLONOSCOPIES; RIGHT FEMUR FX/ ORIF; PROSTATE SURGERY) Gallbladder, Orthopedic Respiratory: No Cardiac: No Neurological: Yes (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, postpolio syndrome, convulsions; LEFT ARM AND LEG CONTRACTURES) Developmental Disorder, Seizure Disorder Genitourinary: Yes (INDWELLING MARTINS CATHETER FOR BLADDER OUTLET OBSTRUCTION; PRIOR PROSTATE SURGERY) Prostate Problems, UTI-Chronic Gastrointestinal: Yes (S/P MATILDE) Chronic Constipation, Chronic Diarrhea, Gall Bladder Disease Musculoskeletal: Yes (POST POLIO SYNDROME WITH LEFT SIDED CONTRACTURES, 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-- ESSENTIALLY NON-AMBULATORY; RIGHT FEMUR FX/ORIF; 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) Contracture Endocrine: No HEENT: No Cancer: No Psychosocial: Yes (MR, SEVERE ADAPTIVE BEHAVIOR DISORDER, CONVULSIONS, DELUSIONAL DISORDER) Anxiety Nursing Suicide Risk Score: 0 Integumentary: No Blood Disorders: Yes (ANEMIA) Adverse Reaction/Blood Tranf: No Physical Exam Vital Signs Vital Signs - First Documented 06/30/17 16:03 Temp 97.4 Pulse 84 Resp 12 B/P (MAP) 146/86 (106) O2 Delivery Room Air Capillary Refill : Less Than 3 Seconds General Appearance: No Apparent Distress, WD/WN, Other (OBVIOUS MR) HEENT: Other (AMBLYOPIA) Neck: Full Range of Motion, Normal Inspection, Non Tender, Supple Respiratory: Normal Breath Sounds, No Accessory Muscle Use, No Respiratory Distress Cardiovascular: Regular Rate, Rhythm, No JVD, No Murmur, Normal Peripheral Pulses, Other (MILD EDEMA OF RIGHT HAND AND WRIST AND DISTAL FOREARM. FULL ROM. NON TENDER AND NO BRUISING OR SKIN DISCOLORATION OR EVIDENCE OF TRAUMA) Gastrointestinal: Non Tender, Soft Genital/Rectal: Other (INDWELLING MARTINS CATHETER) Extremity: Normal Capillary Refill, Other (CONTRACTURES LEFT ARM AND LEG, WITH MILDER CHANGES TO RIGHT HAND AND FOOT) Neurologic/Psychiatric: Alert, Other (OBVIOUS MR, SPEECH DIFFICULT TO UNDERSTAND BUT ANSWERS A FEW QUESTIONS WITH 1 WORD ANSWERS AND ANSWERS "BETTER" TO MOST QUESTIONS. DOES INTERACT A LITTLE WITH CARETAKERS AND ER STAFF.PT IS ESSENTIALLY AT NORMAL BASELINE, PER STAFF. ) Skin: Normal Color, Warm/Dry, Other (SCABBED WOUND ABOVE RIGHT BROW, WITH MILD RESIDUAL SWELLING, NO SIGNS OF INFECTION AND NO BRUISING. ) Progress/Results/Core Measures Suspected Sepsis Recent Fever Within 48 Hours: No Infection Criteria Present: None New/Unexplained Altered Menta: Yes Sepsis Screen: No Definite Risk SIRS Temperature:97.4 Pulse: 84 Respiratory Rate: 12 Laboratory Tests 06/30/17 18:00: White Blood Count 7.3 Blood Pressure 146 /86 Mean: 106 Laboratory Tests 06/30/17 18:00: Creatinine 0.75, Platelet Count 348, Total Bilirubin 0.4 Results/Orders Lab Results Laboratory Tests Test 06/30/17 17:44 06/30/17 18:00 Range/Units Urine Color YELLOW Urine Clarity VERY CLOUDY H Urine pH 7 5-9 Urine Specific [place] 1.010 L 1.016-1.022 Urine Protein 2+ H NEGATIVE Urine Glucose (UA) NEGATIVE NEGATIVE Urine Ketones NEGATIVE NEGATIVE Urine Nitrite NEGATIVE NEGATIVE Urine Bilirubin NEGATIVE NEGATIVE Urine Urobilinogen NORMAL NORMAL MG/DL Urine Leukocyte Esterase 3+ H NEGATIVE Urine RBC (Auto) 3+ H NEGATIVE Urine RBC 5-10 H /HPF Urine WBC TNTC H /HPF Urine Squamous Epithelial Cells NONE /HPF Urine Crystals NONE /LPF Urine Bacteria LARGE H /HPF Urine Casts NONE /LPF Urine Mucus NEGATIVE /LPF Urine Culture Indicated YES White Blood Count 7.3 4.3-11.0 10^3/uL Red Blood Count 3.32 L 4.35-5.85 10^6/uL Hemoglobin 10.6 L 13.3-17.7 G/DL Hematocrit 29 L 40-54 % Mean Corpuscular Volume 87 80-99 FL Mean Corpuscular Hemoglobin 32 25-34 PG Mean Corpuscular Hemoglobin Concent 37 H 32-36 G/DL Red Cell Distribution Width 12.5 10.0-14.5 % Platelet Count 348 130-400 10^3/uL Mean Platelet Volume 8.5 7.4-10.4 FL Neutrophils (%) (Auto) 78 H 42-75 % Lymphocytes (%) (Auto) 11 L 12-44 % Monocytes (%) (Auto) 10 0-12 % Eosinophils (%) (Auto) 1 0-10 % Basophils (%) (Auto) 0 0-10 % Neutrophils # (Auto) 5.6 1.8-7.8 X 10^3 Lymphocytes # (Auto) 0.8 L 1.0-4.0 X 10^3 Monocytes # (Auto) 0.7 0.0-1.0 X 10^3 Eosinophils # (Auto) 0.1 0.0-0.3 10^3/uL Basophils # (Auto) 0.0 0.0-0.1 10^3/uL Sodium Level 111 *L 135-145 MMOL/L Potassium Level 4.3 3.6-5.0 MMOL/L Chloride Level 77 L 98-107 MMOL/L Carbon Dioxide Level 25 21-32 MMOL/L Anion Gap 9 5-14 MMOL/L Blood Urea Nitrogen 11 7-18 MG/DL Creatinine 0.75 0.60-1.30 MG/DL Estimat Glomerular Filtration Rate > 60 BUN/Creatinine Ratio 15 Glucose Level 90 70-105 MG/DL Calcium Level 8.6 8.5-10.1 MG/DL Total Bilirubin 0.4 0.1-1.0 MG/DL Aspartate Amino Transf (AST/SGOT) 20 5-34 U/L Alanine Aminotransferase (ALT/SGPT) 22 0-55 U/L Alkaline Phosphatase 98 40-136 U/L Total Protein 6.3 L 6.4-8.2 GM/DL Albumin 3.3 3.2-4.5 GM/DL Valproic Acid (Depakene) Level 56.1 50.0-100.0 UG/ML My Orders Orders - JEREMITONYA K DO Saline Lock/Iv-Start (06/30/17 16:44) Comprehensive Metabolic Panel (06/30/17 16:44) Ua Culture If Indicated (06/30/17 16:44) Forearm, Right, 2 Views (06/30/17 16:44) Hand, Right, 3 Views (06/30/17 16:44) Abdomen, Flat & Upright/Decub (06/30/17 16:44) Cbc With Automated Diff (06/30/17 16:44) Urine Culture (06/30/17 17:44) Ceftriaxone Injection (Rocephin Injectio (06/30/17 19:00) Valproic Acid (06/30/17 18:47) Ct Head Wo (06/30/17 18:51) Chest 1 View, Ap/Pa Only (06/30/17 18:52) Ekg Tracing (06/30/17 19:36) Monitor-Rhythm Ecg Trace Only (06/30/17 19:36) Medications Given in ED Current Medications Medications Dose Ordered Sig/Ewelina Route Start Time Stop Time Status Last Admin Dose Admin Ceftriaxone Sodium 1000 mg/ Sodium Chloride 100 ml @ 200 mls/hr ONCE ONCE IV 06/30/17 19:00 06/30/17 19:29 DC 06/30/17 19:34 200 MLS/HR Vital Signs/I&O 06/30/17 16:03 Temp 97.4 Pulse 84 Resp 12 B/P (MAP) 146/86 (106) O2 Delivery Room Air Capillary Refill : Less Than 3 Seconds Blood Pressure Mean: 106 Progress Note : Progress Note UNEVENTFUL ER STAY NO DETERIORATION IN PT'S CONDITION PT CONTINUES TO BE INTERACTIVE WITH CARETAKERS AND STAFF--SAYING A FEW 1-3 WORD PHRASES WITH SPEECH VERY DIFFICULT TO UNDERSTAND ECG Initial ECG Impression Date: Jun 30, 2017 Initial ECG Impression Time: 19:44 Initial ECG Rate: 80 Initial ECG Rhythm: Normal Sinus (WITH MUCH ARTIFACT--LIMITED STUDY) Diagnostic Imaging Comments XRAYS: RIGHT HAND--NO ACUTE PROCESS RIGHT WRIST--NO ACUTE PROCESS RIGHT FOREARM--NO ACUTE PROCESS ALL WITH CHRONIC DEGENERATIVE CHANGES PER RADIOLOGIST REPORTS @ 1843 CT HEAD--NO ACUTE PROCESS, SLIGHTLY DILATED VENTRICLES CXR--LEFT BASE ATELECTASIS AND/OR PNEUMONITIS PER RADIOLOGIST REPORTS @ 1939 Reviewed: Reviewed by Me Departure Communication (Admissions) 1843--SPOKE WITH DR. CANALES, ACCEPTS PT FOR ADMIT. Impression Primary Impression: Altered mental status Additional Impressions: SEVERE HYPONATREMIA UTI (urinary tract infection) Constipation POST POLIO SYNDROME WITH LEFT SIDED CONTRACTURES 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 LLL ATELECTASIS/INFILTRATE Indwelling Martins catheter present Chronic anemia Disposition: ADMITTED INPATIENT Condition: Stable Admissions Decision to Admit Reason: Admit from ER (General) Decision to Admit/Date: Jun 30, 2017 Time/Decision to Admit Time: 18:45 Departure-Patient Inst. Referrals: SETH CANALES DO (PCP/Family) Primary Care Physician TONYA BLOOD DO Jun 30, 2017 19:08
--- NOTE | 2017-06-30 19:27 | Diagnostic Imaging Report ---
PROCEDURE: CT head without contrast. TECHNIQUE: Multiple contiguous axial images were obtained through the brain without the use of intravenous contrast. INDICATION: Abnormal behavior. Comparison is made with prior examination from 06/23/2017. FINDINGS: Ventricles remain slightly dilated out of proportion to the sulci. There is no midline shift. There is no intracranial mass, hemorrhage or extra-axial fluid collection. Calvarium is intact. The sinuses and mastoid air cells are clear. IMPRESSION: No acute intracranial abnormality Stable ventricular prominence since July 23, 2011 Dictated by: Dictated on workstation # [id number]
--- NOTE | 2017-06-30 19:27 | Diagnostic Imaging Report ---
INDICATION: Abnormal behavior and shortness of breath. Comparison made with prior examination from 05/01/2017. FINDINGS: Heart size is stable. There is some left basilar subsegmental atelectasis and/or pneumonitis. There is no pleural effusion or pneumothorax. Mediastinum is unremarkable. IMPRESSION: Left basilar subsegmental atelectasis and/or pneumonitis. Dictated by: Dictated on workstation # [id number]
--- OUTSIDE RECORDS SUMMARY | 2017-06-30 19:46 | XMS REPORT | Continuity of Care Document ---
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 11/20/2011 MJ TEST DESIGNER, [place] 298.9 P PSYCHOSIS NOS 11/20/2011 MJ TEST DESIGNER, [place] 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 11/20/2011 MJ TEST DESIGNER, [place] 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 11/20/2011 WHITE DDS, FREDDIE J 298.9 P PSYCHOSIS NOS 11/20/2011 WHITE DDS, FREDDIE J 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 11/20/2011 WHITE DDS, FREDDIE J 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 11/20/2011 298.9 P PSYCHOSIS NOS 11/20/2011 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 11/20/2011 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 11/20/2011 MJ TEST DESIGNER, [place] 298.9 P PSYCHOSIS NOS 11/20/2011 MJ TEST DESIGNER, [place] 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 11/20/2011 MJ TEST DESIGNER, [place] 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 11/20/2011 MJ TEST DESIGNER, [place] 298.9 P PSYCHOSIS NOS 11/20/2011 MJ TEST DESIGNER, [place] 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 11/20/2011 MJ TEST DESIGNER, [place] 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 02/27/2012 V58.69 high [...] ANNA V58.69 high risk medication 02/27/2012 MJ TEST DESIGNER, [place] V58.69 high risk medication 02/27/2012 WHITE DDS, FREDDIE J V58.69 high risk medication 02/27/2012 MJ TEST DESIGNER, [place] V58.69 high risk medication 02/27/2012 MJ TEST DESIGNER, [place] V58.69 high risk medication 03/20/2012 DAVID [...] ACUTE PAIN DUE TO TRAUMA 03/20/2012 MJ TEST DESIGNER, [place] 312.30 I IMPULSE CONTROL DISORDER NOS 03/20/2012 MJCARA NELSONN, [place] 338.11 PAIN - ACUTE PAIN DUE TO TRAUMA 03/20/2012 MJ TEST DESIGNER, [place] 312.30 I IMPULSE CONTROL DISORDER NOS 03/20/2012 MJ TEST DESIGNER, [place] 338.11 PAIN - ACUTE PAIN DUE [...] DDSANNA 307.47 SI DYSSOMNIA NOS 07/01/2012 MJ TEST DESIGNER, [place] 296.90 MOOD DISORDER NOS 07/01/2012 MJ TEST DESIGNER, [place] 307.47 SI DYSSOMNIA NOS 07/01/2012 WHITE DDS, FREDDIE J 296.90 MOOD DISORDER NOS 07/01/2012 WHITE DDS, FREDDIE J 307.47 SI DYSSOMNIA NOS 07/01/2012 MJ TEST DESIGNER, [place] 296.90 MOOD DISORDER NOS 07/01/2012 MJ TEST DESIGNER, [place] 307.47 SI DYSSOMNIA NOS 07/01/2012 MJ TEST DESIGNER, [place] 296.90 MOOD DISORDER NOS 07/01/2012 MJ TEST DESIGNER, [place] 307.47 SI DYSSOMNIA NOS 04/19/2013 RASHAD GAN MD 297.1 P DELUSIONAL DIS 04/19/2013 WHITE DDS BRANDON D 297.1 P DELUSIONAL DIS 04/19/2013 YOHANA HARRISSANNA 297.1 P DELUSIONAL DIS 04/19/2013 MJ TEST DESIGNER, [place] 297.1 P DELUSIONAL DIS 04/19/2013 WHITE DDSFREDDIE J 297.1 P DELUSIONAL DIS 04/19/2013 MJ TEST DESIGNER, [place] 297.1 P DELUSIONAL DIS 04/19/2013 MJ TEST DESIGNER, [place] 297.1 P DELUSIONAL DIS 01/19/2014 Ot [...] TONYA BLOOD DO Ot Y92.193 BEDROOM IN [facility] RESIDENTIAL INSTITUTION A 10/25/2015 TONYA [...] TONYA BLOOD DO Ot Y92.193 BEDROOM IN [facility] RESIDENTIAL INSTITUTION A 10/26/2015 TONYA [...] PAIN IN LEFT FOOT 11/13/2015 TASHIA HURLEY TEST DESIGNER Ot R29.6 REPEATED FALLS 11/13/2015 TASHIA HURLEY APRN Ot R60.9 EDEMA, UNSPECIFIED 11/13/2015 TASHIA HURLEY APRN Ot Z79.899 OTHER YOUTH DEVELOPMENT PROFESSIONAL (CURRENT) DRUG THERAPY 12/04/2015 TASHIA HURLEY APRN Ot M25.572 PAIN IN LEFT ANKLE AND JOINTS OF LEFT FO 12/04/2015 TASHIA HURLEY APRN Ot M79.662 PAIN IN LEFT LOWER LEG 12/04/2015 TASHIA HURLEY APRN Ot M79.672 PAIN IN LEFT FOOT 12/04/2015 TASHIA HURLEY TEST DESIGNER Ot R29.6 REPEATED FALLS 12/04/2015 TASHIA HURLEY APRN Ot R60.9 EDEMA, UNSPECIFIED 12/04/2015 TASHIA HURLEY APRN Ot Z79.899 OTHER YOUTH DEVELOPMENT PROFESSIONAL (CURRENT) DRUG THERAPY 12/07/2015 TASHIA HURLEY APRN Ot M25.572 PAIN IN LEFT ANKLE AND JOINTS OF LEFT FO 12/07/2015 TASHIA HURLEY TEST DESIGNER Ot M79.662 PAIN IN LEFT LOWER LEG 12/07/2015 TASHIA HURLEY Buck DELA CRUZ Ot M79.672 PAIN IN LEFT FOOT 12/07/2015 TASHIA HURLEY Buck DELA CRUZ Ot R29.6 REPEATED FALLS 12/07/2015 TASHIA HURLEY Buck DELA CRUZ Ot R60.9 EDEMA, UNSPECIFIED 12/07/2015 TASHIA HURLEY Buck DELA CRUZ Ot Z79.899 OTHER YOUTH DEVELOPMENT PROFESSIONAL (CURRENT) DRUG THERAPY 05/01/2016 Ot 331.9 CEREB [...] HURLEY Buck DELA CRUZ Ot Z79.899 OTHER HALFWAY (CURRENT) DRUG THERAPY 05/02/2016 GABINONDER DOHENRIQUETISH S [...] R10.84 GENERALIZED ABDOMINAL PAIN 05/30/2016 KELL, GENE SAW SHARPENER Ot K59.00 CONSTIPATION, UNSPECIFIED 05/30/2016 KELL, GENE SAW SHARPENER Ot K80.20 CALCULUS OF GALLBLADDER W/O CHOLECYSTITI 05/30/2016 KELL, GENE SAW SHARPENER Ot N39.0 URINARY TRACT INFECTION, SITE NOT SPECIF 05/30/2016 KELL, GENE SAW SHARPENER Ot R19.7 DIARRHEA, UNSPECIFIED 05/30/2016 KELL, GENE SAW SHARPENER Ot R93.49 ABN RADLGC FINDINGS ON DX IMAGING OF OT 05/30/2016 KELL, GENE SAW SHARPENER Ot Z79.899 OTHER YOUTH DEVELOPMENT PROFESSIONAL (CURRENT) DRUG THERAPY 05/30/2016 TISH NOE DO Ot R10.11 RIGHT UPPER QUADRANT PAIN 05/30/2016 TISH NOE DO Ot R74.8 ABNORMAL LEVELS OF OTHER SERUM ENZYMES 05/31/2016 KELL, GENE SAW SHARPENER Ot K59.00 CONSTIPATION, UNSPECIFIED 05/31/2016 KELL, GENE SAW SHARPENER Ot K80.20 CALCULUS OF GALLBLADDER W/O CHOLECYSTITI 05/31/2016 KELL, GENE SAW SHARPENER Ot N39.0 URINARY TRACT INFECTION, SITE NOT SPECIF 05/31/2016 KELL, GENE SAW SHARPENER Ot R19.7 DIARRHEA, UNSPECIFIED 05/31/2016 KELL, GENE SAW SHARPENER Ot R93.49 ABN RADLGC FINDINGS ON DX IMAGING OF OT 05/31/2016 KELL, GENE SAW SHARPENER Ot Z79.899 OTHER YOUTH DEVELOPMENT PROFESSIONAL (CURRENT) DRUG THERAPY 06/01/2016 KELL, GENE SAW SHARPENER Ot K59.00 CONSTIPATION, UNSPECIFIED 06/01/2016 KELL, GENE SAW SHARPENER Ot K80.20 CALCULUS OF GALLBLADDER W/O CHOLECYSTITI 06/01/2016 KELL, GENE SAW SHARPENER Ot N39.0 URINARY TRACT INFECTION, SITE NOT SPECIF 06/01/2016 GENE CASTORENA Ot R19.7 DIARRHEA, UNSPECIFIED 06/01/2016 GENE CASTORENA Ot R93.49 ABN RADLGC FINDINGS ON DX IMAGING OF OTH 06/01/2016 GENE CASTORENA Ot Z79.899 OTHER YOUTH DEVELOPMENT PROFESSIONAL (CURRENT) DRUG THERAPY 06/03/2016 ORENDER DO, TISH [...] FOR SCREENING FOR OTHER BACTER 06/04/2016 ANGELA BETATY MD Ot K80.20 CALCULUS OF GALLBLADDER W/O [...] K59.09 OTHER CONSTIPATION 01/09/2017 JASON, FATUMA R TEST DESIGNER Ot R22.42 LOCALIZED SWELLING, MASS AND LUMP, LEFT 01/09/2017 JASON, FATUMA R TEST DESIGNER Ot R22.42 LOCALIZED SWELLING, MASS AND LUMP, LEFT 01/09/2017 JASON, FATUMA R TEST DESIGNER Ot R22.42 LOCALIZED SWELLING, MASS AND LUMP, LEFT 01/09/2017 JASON, FATUMA R TEST DESIGNER Ot G57.93 UNSPECIFIED MONONEUROPATHY OF BILATERAL 01/09/2017 JASON, FATUMA R TEST DESIGNER Ot R22.42 LOCALIZED SWELLING, MASS AND LUMP, LEFT 01/09/2017 Ot 331.9 CEREB DEGENERATION NOS 01/09/2017 Ot 780.93 MEMORY LOSS 01/09/2017 Ot V81.5 SCREEN FOR NEPHROPATHY 01/09/2017 Ot 719.45 JOINT PAIN- PELVIS 01/09/2017 Ot 780.97 ALTERED MENTAL STATUS 01/09/2017 Ot 719.45 JOINT PAIN- PELVIS 01/09/2017 WILTON PAUL DO Ot V72.84 EXAM PRE-OPERATIVE NOS 01/09/2017 TASHIA HURLEY TEST DESIGNER Ot M25.572 PAIN IN LEFT ANKLE AND JOINTS OF LEFT FO 01/09/2017 TASHIA HURLEY TEST DESIGNER Ot M79.662 PAIN IN LEFT LOWER LEG 01/09/2017 TASHIA HURLEY TEST DESIGNER Ot M79.672 PAIN IN LEFT FOOT 01/09/2017 TASHIA HURLEY TEST DESIGNER Ot R29.6 REPEATED FALLS 01/09/2017 TASHIA HURLEY TEST DESIGNER Ot R60.9 EDEMA, UNSPECIFIED 01/09/2017 TASHIA HURLEY TEST DESIGNER Ot Z79.899 OTHER YOUTH DEVELOPMENT PROFESSIONAL (CURRENT) DRUG THERAPY 01/09/2017 TISH NOE DO Ot N28.1 CYST OF KIDNEY, ACQUIRED 01/09/2017 TISH NOE DO Ot R10.84 GENERALIZED ABDOMINAL PAIN 01/09/2017 TISH NOE DO Ot R10.11 RIGHT UPPER QUADRANT PAIN 01/09/2017 TISH NOE DO Ot R74.8 ABNORMAL LEVELS OF OTHER SERUM ENZYMES 01/09/2017 MICHELLE GOMEZON R TEST DESIGNER Ot G57.93 UNSPECIFIED MONONEUROPATHY OF BILATERAL 01/09/2017 JASON, FATUMA R TEST DESIGNER Ot R22.42 LOCALIZED SWELLING, MASS AND LUMP, LEFT 01/10/2017 JASON, FATUMA R TEST DESIGNER Ot G57.93 UNSPECIFIED MONONEUROPATHY OF BILATERAL 01/10/2017 JASON, FATUMA R TEST DESIGNER Ot R22.42 LOCALIZED SWELLING, MASS AND LUMP, LEFT 01/31/2017 JASON, FATUMA R TEST DESIGNER Ot R22.43 LOCALIZED SWELLING, MASS AND LUMP, [...] BLO 05/01/2017 DALI MURILLO APRN Ot Z79.52 HALFWAY (CURRENT) USE OF SYSTEMIC STER 05/01/2017 DALI [...] BLO 05/05/2017 DALI MURILLO APRN Ot Z79.52 YOUTH DEVELOPMENT PROFESSIONAL (CURRENT) USE OF SYSTEMIC STER 05/05/2017 DALI [...] BLO 05/07/2017 DALI MURILLO APRN Ot Z79.52 YOUTH DEVELOPMENT PROFESSIONAL (CURRENT) USE OF SYSTEMIC STER 05/07/2017 DALI MURILLO APRN Ot Z87.19 PERSONAL HISTORY OF OTHER DISEASES OF TH 05/07/2017 DALI MURILLO APRN Ot Z88.8 ALLERGY STATUS TO [facility] DRUG/MEDS/BIOL SUB 05/07/2017 FLOWER VIGIL [...] OBJECT(S), NEC, 06/25/2017 CATRACHO EM Ot Z79.52 YOUTH DEVELOPMENT PROFESSIONAL (CURRENT) USE OF SYSTEMIC STER 06/25/2017 CATRACHO EM Ot Z87.19 PERSONAL HISTORY OF OTHER DISEASES OF TH 06/25/2017 CATRACHO EM Ot Z87.440 PERSONAL HISTORY OF URINARY (TRACT) INFE Procedures Code Description [place] [address] PSYCH PHARM MGMT 01/22/2012 26204 ROUTINE VENIPUNCTURE 02/27/2012 99878 LIVER PANEL (LFT) 02/27/2012 85100 LIPID PANEL 02/27/20123176667 GFR CALC (RESULT ONLY) 02/27/2012 93953 VALPROIC ACID / DEPAKOTE 02/28/2012 24370 RENAL PROFILE 02/28/2012 21463 ROUTINE VENIPUNCTURE 03/20/2012 00938 UA LONG DIP 03/20/2012 72523 CBC 03/20/2012 96244 MRI BRAIN W/O CONTRAST 04/02/2012 30532 MRI EXTREMITY, LOWER RIGHT, W/O CONTRAST 04/02/2012 32183 CMP 12/04/2012 78795 LIPID PANEL 12/04/2012 42560 VALPROIC ACID / DEPAKOTE 12/04/2012 31306 CBC 12/04/2012 07547 VALPROIC ACID / DEPAKOTE 04/26/2013 45795 CBC 04/26/2013 91285 CMP 04/26/2013 41968 CMP 10/15/2013 81853 LIPID PANEL 10/15/2013 89760 CBC 10/15/2013 87552 VALPROIC ACID / DEPAKOTE 10/15/2013 Results Test [...] culture - 11/10/15 14:00 Bacterial urine culture [id number] NRG COLONY COUNT <10,000 NRG FTX;REPORTABLE NO [...] Manual blood myelocytes/100 leukocytes 1 % NRG [id number] - 05/01/17 14:34 [id number] 51.5 ug/mL 50.0-100.0 Bacterial blood culture - [...] culture - 05/01/17 15:43 Bacterial urine culture [id number] NRG COLONY COUNT 10,000/ML - 100,000/ML NRG [...] test by minimum inhibitory concentration <= NRG Complete urinalysis with reflex to culture - 06/30/17 17:44 Urine color determination YELLOW NRG Urine clarity determination VERY CLOUDY NRG Urine pH measurement by test strip 7 5-9 Specific gravity of urine by test [...] detection in urine sediment by light microscopy LARGE NRG Squamous epithelial cells detection in urine sediment by light microscopy NONE NRG Crystals detection in urine sediment by light microscopy NONE NRG Casts detection in urine sediment by light microscopy NONE NRG Mucus detection in urine sediment by light microscopy NEGATIVE NRG Complete urinalysis with reflex to culture YES NRG Complete blood count (CBC) with automated white blood cell (WBC) differential - 06/30/17 18:00 Blood leukocytes automated count (number/volume) 7.3 10*3/uL 4.3-11.0 Blood erythrocytes automated count (number/volume) 3.32 10*6/uL 4.35-5.85 Venous blood hemoglobin measurement (mass/volume) 10.6 g/dL 13.3-17.7 Blood hematocrit (volume fraction) 29 % 40-54 Automated erythrocyte mean corpuscular volume 87 [foz_us] 80-99 Automated erythrocyte mean corpuscular hemoglobin (mass per erythrocyte) 32 pg 25-34 Automated erythrocyte mean corpuscular hemoglobin concentration measurement ( mass/volume) 37 g/dL 32-36 Automated erythrocyte distribution width ratio 12.5 % 10.0-14.5 Automated blood platelet count (count/volume) 348 10*3/uL 130-400 Automated blood platelet mean volume measurement 8.5 [foz_us] 7.4-10.4 Automated blood neutrophils/100 leukocytes 78 % 42-75 Automated blood lymphocytes/100 leukocytes 11 % 12-44 Blood monocytes/100 leukocytes 10 % 0-12 Automated blood eosinophils/100 leukocytes 1 % 0-10 Automated blood basophils/100 leukocytes 0 % 0-10 Blood neutrophils automated count (number/volume) 5.6 10*3 1.8-7.8 Blood lymphocytes automated count (number/volume) 0.8 10*3 1.0-4.0 Blood monocytes automated count (number/volume) 0.7 10*3 0.0-1.0 Automated eosinophil count 0.1 10*3/uL 0.0-0.3 Automated blood basophil count (count/volume) 0.0 10*3/uL 0.0-0.1 Comprehensive metabolic panel - 06/30/17 18:00 Serum or plasma sodium measurement (moles/volume) 111 mmol/L 135-145 Serum or plasma potassium measurement (moles/volume) 4.3 mmol/L 3.6-5.0 Serum or plasma chloride measurement (moles/volume) 77 mmol/L 98-107 Carbon dioxide 25 mmol/L 21-32 Serum or plasma anion gap determination (moles/volume) 9 mmol/L 5-14 Serum or plasma urea nitrogen measurement (mass/volume) 11 mg/dL 7-18 Serum or plasma creatinine measurement (mass/volume) 0.75 mg/dL 0.60-1.30 Serum or plasma urea nitrogen/creatinine mass ratio 15 NRG Serum or plasma creatinine measurement with calculation of estimated glomerular filtration rate > NRG Serum or plasma glucose measurement (mass/volume) 90 mg/dL 70-105 Serum or plasma calcium measurement (mass/volume) 8.6 mg/dL 8.5-10.1 Serum or plasma total bilirubin measurement (mass/volume) 0.4 mg/dL 0.1-1.0 Serum or plasma alkaline phosphatase measurement (enzymatic activity/volume) 98 U/L 40-136 Serum or plasma aspartate aminotransferase measurement (enzymatic activity/ volume) 20 U/L 5-34 Serum or plasma alanine aminotransferase measurement (enzymatic activity/volume ) 22 U/L 0-55 Serum or plasma protein measurement (mass/volume) 6.3 g/dL 6.4-8.2 Serum or plasma albumin measurement (mass/volume) 3.3 g/dL 3.2-4.5 [id number] - 06/30/17 18:00 [id number] 56.1 ug/mL 50.0-100.0 Encounters ACCT No. Visit Date/Time Discharge Status Pt. Type Provider Facility Loc./Unit Complaint [id number] 05/27/2014 13:13:00 05/27/2014 23:59:59 CLS Outpatient ARGENTINA BARKER APRN [id number] 04/14/2014 13:00:00 04/14/2014 23:59:59 CLS Outpatient ARGENTINA BARKER APRN [id number] 11/24/2013 10:27:00 11/24/2013 23:59:59 CLS Outpatient WHITE DDSFREDDIE [id number] 10/12/2013 14:39:00 10/12/2013 23:59:59 CLS Outpatient ARGENTINA BARKER APRN [id number] 09/29/2013 15:03:00 09/29/2013 23:59:59 CLS Outpatient YOHANA DDSANNA [id number] 04/29/2013 11:39:00 04/29/2013 23:59:59 CLS Outpatient WHITE DDSBRANDON [id number] 04/19/2013 09:36:00 04/19/2013 23:59:59 CLS Outpatient ELVIA COLINDRES, RASHAD [id number] 11/20/2012 12:20:00 11/20/2012 23:59:59 CLS Outpatient JOSELYN DO DAVID F [id number] 04/17/2012 14:26:00 04/17/2012 23:59:59 CLS Outpatient JOSELYN DO DAVID Erick [id number] 03/20/2012 12:36:00 03/20/2012 23:59:59 CLS Outpatient LORIDAVID HATCH DO [id number] 03/20/2012 12:36:00 03/20/2012 23:59:59 CLS Outpatient JOSELYN CH DAVID Erick [id number] 02/27/2012 09:38:00 02/27/2012 23:59:59 CLS Outpatient [id number] 01/21/2012 11:29:00 01/21/2012 23:59:59 CLS Outpatient [id number] 07/01/2012 18:05:00 Document Registration [id number] 06/23/2017 20:05:00 06/23/2017 22:52:00 DIS Outpatient CATRACHO EM [facility] ER FALL/HEAD LAC [id number] 05/01/2017 13:57:00 05/01/2017 17:43:00 DIS Emergency DALI MURILLO APRN [facility] ER WEAK,UNAWARE,DIARRHEA [id number] 04/07/2017 14:34:00 04/07/2017 23:59:59 CLS Outpatient FLOWER VIGIL MD [facility] CARD R60.9,M79.606 [id number] 01/13/2017 08:56:00 01/13/2017 23:59:59 CLS Outpatient FATUMA GOMEZ TEST DESIGNER [facility] RAD SWOLLEN ERYTHEMIC COOL LOWER EXTRMETIES [id number] 10/28/2016 07:48:00 10/28/2016 23:59:59 CLS Outpatient ANGELA BEATTY MD [facility] ENDO IRON DEFICIENCY, ANEMIA [id number] 10/23/2016 06:08:00 10/23/2016 15:00:00 DIS Outpatient ANGELA BEATTY MD [facility] PREOP IRON DEFICIENCY/ ANEMIA [id number] 06/07/2016 06:30:00 06/07/2016 12:25:00 DIS [facility] [id number] 06/03/2016 12:49:00 06/03/2016 13:10:00 DIS Outpatient ANGELA BEATTY MD [facility] PREOP GALLSTONES [id number] 05/30/2016 11:31:00 05/30/2016 16:48:00 DIS Emergency GENE CASTORENA [facility] ER DIARRHEA/ABD PAIN FEVER [id number] 05/06/2016 12:00:00 05/06/2016 23:59:59 CLS Outpatient TISH NOE DO [facility] RAD R10.11,R74.8 [id number] 05/01/2016 09:38:00 05/01/2016 23:59:59 CLS Outpatient TISH NOE DO S [facility] RAD R46.89 [id number] 11/10/2015 13:21:00 11/10/2015 23:59:59 CLS Outpatient MEI TASHIA N TEST DESIGNER [facility] RAD LT FT,ANKLE AND LOWER TIB PAIN,PEDAL EDEMA [id number] 10/25/2015 22:19:00 10/25/2015 23:34:00 DIS Emergency TONYA BLOOD DO [facility] ER FOOT INJ [id number] 10/06/2015 14:22:00 10/06/2015 16:00:00 DIS Outpatient KWAN PURVIS MD [facility] WOUNDCARE WOUND CARE [id number] 09/26/2015 09:54:00 09/26/2015 12:40:00 DIS Emergency LIBRADO COLINDRES, CARMEN Garcia [facility] ER COSME TO RIGHT LEG [id number] 09/17/2014 01:38:00 09/17/2014 02:29:00 DIS Emergency LORENZO COLINDRES, ERNST Cherry [facility] ER FALL-LAC ABOVE LEFT EYE [id number] 01/25/2014 12:38:00 01/25/2014 15:50:00 DIS Outpatient WILTON PAUL DO [facility] SDC SCREENING [id number] 01/20/2014 07:20:00 01/20/2014 23:59:59 CLS Outpatient WILTON PAUL DO [facility] PREOP SCREENING [id number] 06/30/2017 18:10:00 Document Registration [id number] 01/19/2014 10:57:00 Document Registration [id number] 03/31/2012 12:50:00 Document Registration [id number] 03/26/2012 12:52:00 Document Registration [id number] 07/23/2011 15:53:00 Document Registration [id number] 09/05/2009 09:09:00 Document Registration 03/201509/26/2016 09:38:58 09/26/2016 23:59:59 CLS Outpatient Tish Noe [id number] 06/04/2017 12:00:00 06/04/2017 23:59:59 CLS Outpatient Tish Noe [facility]
[2017-06-30 20:44] VITALS: BP 128/79
[2017-06-30] MEDS ORDERED: CATHETER FLUSH 10 ML SYR IV PRN (21:30)
[2017-06-30] MEDS ORDERED: FLEET ENEMA ADULT 1 EA BTL PR PRN (21:30)
[2017-06-30] MEDS: CATHETER FLUSH 10 ML SYR IV SCH (22:00)
[2017-06-30] MEDS: POLYETHYLENE GLYCOL 17 GM (MIRALAX) PACK PO SCH (22:00)
[2017-06-30] MEDS: NS IV 1000 ML 1,000 ML IV SCH (22:00)
[2017-06-30 22:44] VITALS: BP 106/72
[2017-07-01] VITALS (8 sets, daily range): BP systolic 100–121; BP diastolic 58–80
[2017-07-01] MEDS: POLYETHYLENE GLYCOL 17 GM (MIRALAX) PACK PO SCH ×4 (03:45→21:46)
[2017-07-01] MEDS: CATHETER FLUSH 10 ML SYR IV SCH ×3 (03:46→21:55)
[2017-07-01 06:16] LABS: BASOPHILS % (AUTO) 0 % (0-10); EOSINOPHILS # (AUTO) 0.1 10^3/uL (0.0-0.3); EOSINOPHILS % (AUTO) 2 % (0-10); HEMATOCRIT 29 % (40-54); HEMOGLOBIN 10.5 G/DL (13.3-17.7); LYMPHOCYTES # (AUTO) 0.7 X 10^3 (1.0-4.0); LYMPHOCYTES % (AUTO) 17 % (12-44); MEAN CORPUSCULAR HEMOGLOBIN 32 PG (25-34); MEAN CORPUSCULAR HGB CONC 37 G/DL (32-36); MEAN CORPUSCULAR VOLUME 87 FL (80-99); MEAN PLATELET VOLUME 8.8 FL (7.4-10.4); MONOCYTES # (AUTO) 0.6 X 10^3 (0.0-1.0); MONOCYTES % (AUTO) 14 % (0-12); NEUTROPHILS # (AUTO) 2.9 X 10^3 (1.8-7.8); NEUTROPHILS % (AUTO) 67 % (42-75); PLATELET COUNT 328 10^3/uL (130-400); RED BLOOD COUNT 3.31 10^6/uL (4.35-5.85); RED CELL DISTRIBUTION WIDTH 12.2 % (10.0-14.5); WHITE BLOOD COUNT 4.3 10^3/uL (4.3-11.0)
[2017-07-01 06:41] LABS: ALANINE AMINOTRANSFERASE 20 U/L (0-55); ALBUMIN 2.9 GM/DL (3.2-4.5); ALKALINE PHOSPHATASE 88 U/L (40-136); BILIRUBIN,TOTAL 0.3 MG/DL (0.1-1.0); BUN/CREATININE RATIO 15; CALCIUM 8.3 MG/DL (8.5-10.1); CARBON DIOXIDE 23 MMOL/L (21-32); CHLORIDE 85 MMOL/L (98-107); CREATININE SERUM 0.75 MG/DL (0.60-1.30); GFR ESTIMATED > 60; GLUCOSE 65 MG/DL (70-105); POTASSIUM 3.9 MMOL/L (3.6-5.0); TOTAL PROTEIN 5.4 GM/DL (6.4-8.2)
[2017-07-01 06:45] LABS: SODIUM 118 MMOL/L (135-145)
[2017-07-01] MEDS: NS IV 1000 ML 1,000 ML IV SCH (08:27)
[2017-07-01] MEDS ORDERED: [UNRECOGNIZED DRUG - CODE] PO (08:31)
[2017-07-01] MEDS ORDERED: BENZ1TAB6 PO (08:45)
[2017-07-01] MEDS ORDERED: PNV1TABL72 PO (08:45)
[2017-07-01] MEDS ORDERED: ALPR1TAB7 PO (08:45)
[2017-07-01] MEDS ORDERED: DIVA500T7 PO (08:45)
[2017-07-01] MEDS ORDERED: DOCU100C37 PO ×2 (08:45)
[2017-07-01] MEDS ORDERED: LACT1CAP40 PO (08:45)
[2017-07-01] MEDS ORDERED: PREG50CA2 PO (08:45)
[2017-07-01] MEDS ORDERED: CALC-781 PO ×2 (08:45)
[2017-07-01] MEDS ORDERED: LORA10TA7 PO (08:45)
[2017-07-01] MEDS ORDERED: CALA177S11 TP (08:45)
[2017-07-01] MEDS ORDERED: FLUT16SP22 NS (08:45)
[2017-07-01] MEDS ORDERED: SENN1TAB8 PO (08:45)
[2017-07-01] MEDS ORDERED: CALC-9 PO ×2 (08:45)
[2017-07-01] MEDS ORDERED: KETO120S11 TP (08:45)
[2017-07-01] MEDS ORDERED: NAPH15DR6 OU (08:52)
[2017-07-01] MEDS ORDERED: GUAI600T43 PO ×2 (08:52)
[2017-07-01] MEDS ORDERED: [UNRECOGNIZED DRUG - CODE] TP (08:52)
[2017-07-01] MEDS ORDERED: HYDR28CR18 TP (08:52)
[2017-07-01] MEDS ORDERED: GUAI-585 PO (08:52)
[2017-07-01] MEDS ORDERED: MENT113P2 TP (08:52)
[2017-07-01] MEDS ORDERED: DIPH25CA6 PO ×2 (08:52)
[2017-07-01] MEDS ORDERED: BISM262O27 PO (08:52)
[2017-07-01] MEDS ORDERED: [UNRECOGNIZED DRUG - CODE] MM ×2 (08:52)
[2017-07-01] MEDS ORDERED: SODIUM CHLORIDE 3% 500 ML IV SCH (12:45)
[2017-07-01] MEDS ORDERED: NON-FORMULARY MEDICATION 1 EA EA (Acetaminophen 500 MG) PO PRN (12:45)
[2017-07-01] MEDS ORDERED: ACETAMINOPHEN 500 MG TAB (TYLENOL) PO PRN (13:00)
[2017-07-01] MEDS: BENZTROPINE MESYLATE 1 MG (COGENTIN) TAB PO SCH ×2 (14:19→21:54)
[2017-07-01] MEDS: DOCUSATE SODIUM 100 MG (COLACE) CAP PO SCH ×2 (14:19→21:46)
[2017-07-01] MEDS: DIVALPROEX 500 MG DELAYED RELEASE (DEPAKOTE) TAB PO SCH ×2 (14:20→21:54)
[2017-07-01] MEDS: PREGABALIN 50 MG (LYRICA) CAP PO SCH (14:20)
[2017-07-01] MEDS: ENOXAPARIN 40 MG/0.4 ML (LOVENOX) SYR SC SCH (18:48)
[2017-07-01] MEDS: MEROPENEM 500 MG in NS (IVPB) 100 ML IV SCH ×2 (18:49→23:22)
[2017-07-01] MEDS ORDERED: NON-FORMULARY MEDICATION 1 EA EA (Benztropine Mesylate 1 MG) PO SCH (21:00)
[2017-07-01] MEDS ORDERED: DOCUSATE SODIUM PO SCH (21:00)
[2017-07-01] MEDS ORDERED: NON-FORMULARY MEDICATION 1 EA EA (Polyethylene Glycol 3350 17 GM) PO SCH (21:00)
[2017-07-01] MEDS ORDERED: cefTRIAXone 1 GM/NS 100 ML IVPB IV SCH ×2 (21:00)
[2017-07-01] MEDS ORDERED: NON-FORMULARY MEDICATION 1 EA EA (Docusate Sodium 100 MG) PO SCH (21:00)
[2017-07-01] MEDS ORDERED: SENNOSIDES PO SCH (21:00)
[2017-07-01] MEDS ORDERED: NON-FORMULARY MEDICATION 1 EA EA (Divalproex Sodium 500 MG) PO SCH (21:00)
[2017-07-01] MEDS ORDERED: NON-FORMULARY MEDICATION 1 EA EA (Aripiprazole 5 MG) PO SCH (21:00)
--- NOTE | 2017-07-01 21:06 | History & Physicial ---
History of Present Illness History of Present Illness Reason for visit/HPI This is a 57 year old mentally disabled male with a chronic indwelling winchester catheter who was brought to the emergency room for unusual behavior and constipation. He was found to be hyponatremic with a sodium of 111 and to have a UTI. He will be admitted for treatment of his UTI as well as correction of his sodium. Date of Admission Jun 30, 2017 at 19:37 Date Seen by Provider: July 01, 2017 Time Seen by Provider: 12:30 I consulted on this patient on 07/01/17 20:59 Attending Physician Tish Noe DO Admitting Physician Tish Noe DO Consult Allergies and Home Medications Allergies Coded Allergies: lorazepam (Unverified Adverse Reaction, Intermediate, HYPERACTIVITY, 01/25) Home Medications Acetaminophen 500 Mg Tablet, 500 MG PO Q6H PRN for TEMPATURE OR MILD PAIN, ( Reported) Alprazolam 1 Mg Tablet, 1 MG PO DAILY PRN for PRIOR TO MEDICAL APPOINTMENTS, ( Reported) Aripiprazole 5 Mg Tablet, 5 MG PO HS, (Reported) Benztropine Mesylate 1 Mg Tablet, 1 MG PO BID, (Reported) Bismuth Subsalicylate 262 Mg/15 Ml Oral.susp, PO UD PRN for UPSET STOMACH/ INDIGESTION, (Reported) Calamine/Zinc Oxide 177 Ml Lotion, TP UD PRN for RASH, (Reported) Calcium Carb/Magnesium Hydrox 1 Each Tab.chew, 500-1,000 MG PO UD PRN for HEARTBURN, (Reported) Calcium Carbonate/Vitamin D3 1 Each Tablet, 1 TAB PO DAILY, (Reported) Desmopressin Acetate 0.2 Mg Tablet, 0.6 MG PO HS, (Reported) TAKES 3 (0.2MG) TABLETS Diphenhydramine HCl 25 Mg Capsule, 25 MG PO UD PRN for RASH, ITCH, AND ALLERGIES , (Reported) Divalproex Sodium 500 Mg Tablet.dr, 500 MG PO BID, (Reported) Docusate Sodium 100 Mg Capsule, 100 MG PO BID, (Reported) Fluticasone Propionate 16 Gm [place].susp, 1 SPRAY NS BID, (Reported) Guaifenesin 600 Mg Tab.er.12h, 600 MG PO UD PRN for CONGESTION, (Reported) Guaifenesin/D-Methorphan Hb/PE 118 Ml Liquid, PO UD PRN for COUGH/CONGESTION, ( Reported) Hydrocortisone 28 Gm Cream..g., TP UD PRN for RASH, ITCHING, (Reported) Ketoconazole 120 Ml Shampoo, TP SuWe, (Reported) APPLY TO FACE TWICE PER WEEK, USE ON HEAD IF NEEDED L. Rhamnosus GG/Inulin 1 Each Cap.sprink, 1 CAP PO DAILY PRN for HEALTHY BMS, ( Reported) Loratadine 10 Mg Tablet, 10 MG PO HS, (Reported) Menthol 113 Gm Powder, TP UD PRN for FOOT ODOR/WETNESS, (Reported) Menthol 4.8 Mg Lozenge, MM UD PRN for THROAT PAIN, (Reported) Naphazoline HCl/Pheniramine 15 Ml Drops, 1-2 DROPS OU PRN PRN for REDNESS/ SWELLING FROM ALLERGY, (Reported) Neomycin Dinh/Bacitrac Zn/Poly 28.4 Gm Oint...g., TP UD PRN for MINOR CUTS, SCRAPES, AND SORES, (Reported) Pnv with Ca,No.72/Iron/FA 1 Each Tablet, 1 TAB PO DAILY, (Reported) Polyethylene Glycol 3350 255 Gm Powder, 17 GM PO BID, (Reported) Pregabalin 25 Mg Capsule, 25 MG PO HS, (Reported) Pregabalin 50 Mg Capsule, 50 MG PO DAILY, (Reported) Sennosides/Docusate Sodium 1 Each Tablet, 2 TAB PO BID, (Reported) Patient Home Medication List Home Medication List Reviewed: Yes Past Lpifohb-Wszdfy-Hggtqr Hx Patient Social History Alcohol Use: Denies Use Recreational Drug Use: No Smoking Status: Never a Smoker Physical Abuse Screen: No Sexual Abuse: No Recent Foreign Travel: No Contact w/other who traveled: No Recent Hopitalizations: No Recent Infectious Disease Expo: No Immunizations Up To Date Tetanus Booster (TDap): Less than 5yrs Date of Pneumonia Vaccine: Jan 23, 2015 Date of Influenza Vaccine: Dec 05, 2015 Seasonal Allergies Seasonal Allergies: Yes Surgeries Yes Gallbladder, Orthopedic Respiratory No Cardiovascular No Neurological Yes Developmental Disorder, Seizure Disorder Genitourinary Yes Prostate Problems, UTI-Chronic Gastrointestinal Yes (S/P MATILDE) Chronic Constipation, Chronic Diarrhea, Gall Bladder Disease Musculoskeletal Yes Contracture Endocrine History of Endocrine Disorders: No HEENT History of HEENT Disorders: No Cancer No Psychosocial History of Psychiatric Problem: Yes (MR, SEVERE ADAPTIVE BEHAVIOR DISORDER, CONVULSIONS, DELUSIONAL DISORDER) Behavioral Health Disorders: Anxiety Integumentary History of Skin or Integumenta: No Blood Transfusions History of Blood Disorders: Yes (ANEMIA) Adverse Reaction to a Blood Tr: No Constitutional: weakness EENTM: No see HPI, No no symptoms reported, No ear discharge, No hearing loss, No ear pain, No blurred vision, No double vision, No eye pain, No tearing, No vision loss, No dental problems, No hoarseness, No mouth pain, No mouth swelling , No epistaxis, No nose congestion, No nose pain, No throat pain, No throat swelling, No other Respiratory: No no symptoms reported, No see HPI, No cough, No dyspnea on exertion, No hemoptysis, No orthopnea, No phlegm, No short of breath, No stridor , No wheezing, No other Cardiovascular: No no symptoms reported, No see HPI, No chest pain, No edema, No Hx of Intervention, No palpitations, No syncope, No vascular heart diseas, No other Gastrointestinal: constipation Genitourinary: No no symptoms reported, No see HPI, No decreased output, No discharge, No dysuria, No frequency, No hematuria, No hesitancy, No incontinence , No nocturia, No pain, No other Musculoskeletal: muscle stiffness, muscle weakness Skin: No no symptoms reported, No see HPI, No change in color, No change in hair/nails, No dryness, No hx of skin cancer, No lesions, No lumps, No pruritus , No rash, No other Psychiatric/Neurological: Emotional Problems, Weakness Physical Exam Vital Signs Vital Signs - First Documented 06/30/17 06/30/17 16:03 20:30 Temp 97.4 Pulse 84 Resp 12 B/P (MAP) 146/86 (106) Pulse Ox 98 O2 Delivery Room Air Capillary Refill : Less Than 3 Seconds General Appearance: No Apparent Distress HEENT: Normal ENT Inspection Neck: Supple Respiratory: Lungs Clear Cardiovascular: Regular Rate, Rhythm Gastrointestinal: Normal Bowel Sounds, Non Tender, Soft Rectal: Deferred Back: No CVA Tenderness Extremity: Non Tender, No Calf Tenderness, No Pedal Edema Neurologic/Psychiatric: Abnormal Gait (with contractures of limbs), Disoriented , Motor Weakness Skin: Warm/Dry Comments Laboratory Tests 07/01/17 05:25: White Blood Count 4.3, Red Blood Count 3.31L, Hemoglobin 10.5L, Hematocrit 29L, Mean Corpuscular Volume 87, Mean Corpuscular Hemoglobin 32, Mean Corpuscular Hemoglobin Concent 37H, Red Cell Distribution Width 12.2, Platelet Count 328, Mean Platelet Volume 8.8, Neutrophils (%) (Auto) 67, Lymphocytes (%) (Auto) 17, Monocytes (%) (Auto) 14H, Eosinophils (%) (Auto) 2, Basophils (%) (Auto) 0, Neutrophils # (Auto) 2.9, Lymphocytes # (Auto) 0.7L, Monocytes # (Auto) 0.6, Eosinophils # (Auto) 0.1, Basophils # (Auto) 0.0, Sodium Level 118*L, Potassium Level 3.9, Chloride Level 85L, Carbon Dioxide Level 23, Anion Gap 10, Blood Urea Nitrogen 11, Creatinine 0.75, Estimat Glomerular Filtration Rate > 60, BUN/ Creatinine Ratio 15, Glucose Level 65L, Calcium Level 8.3L, Total Bilirubin 0.3 , Aspartate Amino Transf (AST/SGOT) 16, Alanine Aminotransferase (ALT/SGPT) 20, Alkaline Phosphatase 88, Total Protein 5.4L, Albumin 2.9L Microbiology 06/30/17 Urine Culture - Preliminary, Resulted Escherichia coli Assessment/Plan Assessment and Plan 1. Severe Hyponatremia--switch to hypertonic saline and monitor Na 2. UTI with E. coli--ESBL positive--switch to meropenem 3. Developmentally Disabled with Behavior Disorder--resume home meds 4. Constipation--resume miralax and senokot--add MOM prn 5. History of Cerebral Palsy with contractures of limbs--chronic 6. History of Seizure Disorder--resume depakote Admission Diagnosis Admission Status: Inpatient Order (span 2 midnights) Reason for Inpatient Admission: Will need IV abx for UTI and IVF for correction of Na Clinical Quality Measures DVT/VTE Risk/Contraindication: Risk Factor Score Per Nursin RFS Level Per Nursing on Admit: 4+=Very High TISH NOE DO July 01, 2017 21:05
[2017-07-01] MEDS: SENNA W/DOCUSATE (SENOKOT S) TABLET PO SCH (21:46)
[2017-07-01] MEDS: ARIPIPRAZOLE 10 MG (ABILIFY) TAB PO SCH (21:54)
[2017-07-01 22:12] LABS: SODIUM URINE 24 HOUR 28 MMOL/L
[2017-07-01] MEDS: PREGABALIN 25 MG (LYRICA) NON-STOCK STRENGTH PO SCH (22:16)
[2017-07-01 22:22] LABS: COLLECTION TIME,URINE 24 HRS; SODIUM 24 HOUR URINE 197 MMOL/24H; TOTAL VOLUME,URINE 7050 ML
[2017-07-02] VITALS: BP 121/73
[2017-07-02 03:19] VITALS: BP 107/55
[2017-07-02] MEDS: MEROPENEM 500 MG in NS (IVPB) 100 ML IV SCH ×3 (05:33→17:25)
[2017-07-02] MEDS: CATHETER FLUSH 10 ML SYR IV SCH ×2 (05:33→12:19)
[2017-07-02 06:28] LABS: BASOPHILS % (AUTO) 1 % (0-10); EOSINOPHILS % (AUTO) 1 % (0-10); HEMATOCRIT 30 % (40-54); HEMOGLOBIN 10.3 G/DL (13.3-17.7); LYMPHOCYTES # (AUTO) 0.8 X 10^3 (1.0-4.0); LYMPHOCYTES % (AUTO) 20 % (12-44); MEAN CORPUSCULAR HEMOGLOBIN 32 PG (25-34); MEAN CORPUSCULAR HGB CONC 35 G/DL (32-36); MEAN CORPUSCULAR VOLUME 91 FL (80-99); MEAN PLATELET VOLUME 8.7 FL (7.4-10.4); MONOCYTES # (AUTO) 0.7 X 10^3 (0.0-1.0); MONOCYTES % (AUTO) 17 % (0-12); NEUTROPHILS # (AUTO) 2.4 X 10^3 (1.8-7.8); NEUTROPHILS % (AUTO) 61 % (42-75); PLATELET COUNT 302 10^3/uL (130-400); RED BLOOD COUNT 3.24 10^6/uL (4.35-5.85); RED CELL DISTRIBUTION WIDTH 13.2 % (10.0-14.5)
[2017-07-02 06:47] LABS: BUN/CREATININE RATIO 14; CALCIUM 8.6 MG/DL (8.5-10.1); CARBON DIOXIDE 23 MMOL/L (21-32); CHLORIDE 110 MMOL/L (98-107); CREATININE SERUM 0.77 MG/DL (0.60-1.30); GFR ESTIMATED > 60; GLUCOSE 79 MG/DL (70-105); POTASSIUM 4.1 MMOL/L (3.6-5.0); SODIUM 141 MMOL/L (135-145)
[2017-07-02 08:00] VITALS: BP 103/57
[2017-07-02] MEDS ORDERED: PREGABALIN 50 MG (LYRICA) CAP PO SCH (09:00)
[2017-07-02] MEDS ORDERED: NON-FORMULARY MEDICATION 1 EA EA (Pregabalin (Lyrica) 50 MG) PO SCH (09:00)
[2017-07-02] MEDS: BENZTROPINE MESYLATE 1 MG (COGENTIN) TAB PO SCH ×2 (09:32→20:43)
[2017-07-02] MEDS: DOCUSATE SODIUM 100 MG (COLACE) CAP PO SCH ×2 (09:32→20:43)
[2017-07-02] MEDS: POLYETHYLENE GLYCOL 17 GM (MIRALAX) PACK PO SCH ×2 (09:32→20:43)
[2017-07-02] MEDS: DIVALPROEX 500 MG DELAYED RELEASE (DEPAKOTE) TAB PO SCH ×2 (09:32→20:43)
[2017-07-02] MEDS: SENNA W/DOCUSATE (SENOKOT S) TABLET PO SCH ×2 (09:32→20:43)
[2017-07-02] MEDS: PREGABALIN 50 MG (LYRICA) CAP PO SCH (09:45)
[2017-07-02 12:00] VITALS: BP 114/53
[2017-07-02 14:29] LABS: BUN/CREATININE RATIO 15; CALCIUM 8.6 MG/DL (8.5-10.1); CARBON DIOXIDE 25 MMOL/L (21-32); CHLORIDE 106 MMOL/L (98-107); CREATININE SERUM 0.79 MG/DL (0.60-1.30); GFR ESTIMATED > 60; GLUCOSE 130 MG/DL (70-105); POTASSIUM 4.4 MMOL/L (3.6-5.0); SODIUM 138 MMOL/L (135-145)
[2017-07-02 16:01] VITALS: BP 126/71
[2017-07-02] MEDS: ENOXAPARIN 40 MG/0.4 ML (LOVENOX) SYR SC SCH (17:21)
--- NOTE | 2017-07-02 17:43 | Progress Note (SOAP) ---
Subjective Date Seen by Provider: July 02, 2017 Time Seen by Provider: 12:55 Subjective/Events-last exam Fwup hyponatremia, ESBL positive UTI, Constipation, Developmental delays with mood disorder, cerebral palsy. Acting more like himself today--more talkative. Had BM. Objective Exam Vital Signs Date Time Temp Pulse Resp B/P (MAP) Pulse Ox O2 Delivery O2 Flow Rate FiO2 07/02/17 16:01 96.7 94 18 126/71 (89) 98 Room Air 07/02/17 12:00 97.2 92 18 114/53 (73) 100 Room Air 07/02/17 09:00 100 Room Air 07/02/17 08:00 97.6 82 18 103/57 (72) 100 Room Air 07/02/17 07:00 90 07/02/17 03:19 97.0 75 17 107/55 (72) 96 Room Air 07/02/17 01:00 83 07/02/17 00:00 98.8 92 18 121/73 (89) 100 Room Air 07/01/17 19:50 98.5 89 16 120/73 (89) 98 07/01/17 19:00 96 I & O 07/02/17 07:00 Intake Total 2980 ml Output Total 5000 ml Balance -2020 ml Capillary Refill : Less Than 3 Seconds General Appearance: No Apparent Distress Neck: Supple Respiratory: Lungs Clear Cardiovascular: Regular Rate, Rhythm Gastrointestinal: normal bowel sounds, non tender, soft Extremity: Non Tender, No Calf Tenderness, No Pedal Edema Neurologic/Psychiatric: Alert Results Lab Laboratory Tests 07/02/17 05:02: Sodium Level 141, Potassium Level 4.1, Chloride Level 110#H, Carbon Dioxide Level 23, Anion Gap 8, Blood Urea Nitrogen 11, Creatinine 0.77, Estimat Glomerular Filtration Rate > 60, BUN/Creatinine Ratio 14, Glucose Level 79, Calcium Level 8.6 07/02/17 05:52: White Blood Count 4.0L, Red Blood Count 3.24L, Hemoglobin 10.3L, Hematocrit 30L , Mean Corpuscular Volume 91, Mean Corpuscular Hemoglobin 32, Mean Corpuscular Hemoglobin Concent 35, Red Cell Distribution Width 13.2, Platelet Count 302, Mean Platelet Volume 8.7, Neutrophils (%) (Auto) 61, Lymphocytes (%) (Auto) 20, Monocytes (%) (Auto) 17H, Eosinophils (%) (Auto) 1, Basophils (%) (Auto) 1, Neutrophils # (Auto) 2.4, Lymphocytes # (Auto) 0.8L, Monocytes # (Auto) 0.7, Eosinophils # (Auto) 0.0, Basophils # (Auto) 0.0 07/02/17 13:39: Sodium Level 138, Potassium Level 4.4, Chloride Level 106, Carbon Dioxide Level 25, Anion Gap 7, Blood Urea Nitrogen 12, Creatinine 0.79, Estimat Glomerular Filtration Rate > 60, BUN/Creatinine Ratio 15, Glucose Level 130H, Calcium Level 8.6 Microbiology 06/30/17 Urine Culture - Preliminary, Resulted Escherichia coli Yeast species Gram Negative Lamin Assessment/Plan Assessment/Plan Assess & Plan/Chief Complaint 1. Hyponatremia--improved 2. UTI with ESBL positive E. coli--will need at least 5 days of meropenem so will do SWING bed eval 3. Developmental delays with mood disorder--back on home meds 4. Cerebral palsy with contractures--start PT 5. Constipation--improved Clinical Quality Measures Admission Status Admission Dx 1. Severe Hyponatremia--switch to hypertonic saline and monitor Na 2. UTI with E. coli--ESBL positive--switch to meropenem 3. Developmentally Disabled with Behavior Disorder--resume home meds 4. Constipation--resume miralax and senokot--add MOM prn 5. History of Cerebral Palsy with contractures of limbs--chronic 6. History of Seizure Disorder--resume depakote DVT/VTE Risk/Contraindication: Risk Factor Score Per Nursin RFS Level Per Nursing on Admit: 4+=Very High SETH CANALES DO July 02, 2017 17:43
[2017-07-02 20:09] VITALS: BP 120/60
[2017-07-02] MEDS: ARIPIPRAZOLE 10 MG (ABILIFY) TAB PO SCH (20:43)
[2017-07-02] MEDS: PREGABALIN 25 MG (LYRICA) NON-STOCK STRENGTH PO SCH (20:51)
[2017-07-03] VITALS: BP 124/61
[2017-07-03] MEDS: MEROPENEM 500 MG in NS (IVPB) 100 ML IV SCH ×3 (00:26→11:23)
[2017-07-03] MEDS: CATHETER FLUSH 10 ML SYR IV SCH ×3 (00:26→12:24)
[2017-07-03 05:13] VITALS: BP 128/71
[2017-07-03 06:19] LABS: BASOPHILS % (AUTO) 1 % (0-10); EOSINOPHILS # (AUTO) 0.1 10^3/uL (0.0-0.3); EOSINOPHILS % (AUTO) 3 % (0-10); HEMATOCRIT 32 % (40-54); LYMPHOCYTES % (AUTO) 23 % (12-44); MEAN CORPUSCULAR HEMOGLOBIN 32 PG (25-34); MEAN CORPUSCULAR HGB CONC 35 G/DL (32-36); MEAN CORPUSCULAR VOLUME 93 FL (80-99); MEAN PLATELET VOLUME 8.2 FL (7.4-10.4); MONOCYTES # (AUTO) 0.7 X 10^3 (0.0-1.0); MONOCYTES % (AUTO) 15 % (0-12); NEUTROPHILS # (AUTO) 2.6 X 10^3 (1.8-7.8); NEUTROPHILS % (AUTO) 58 % (42-75); PLATELET COUNT 316 10^3/uL (130-400); RED BLOOD COUNT 3.44 10^6/uL (4.35-5.85); RED CELL DISTRIBUTION WIDTH 13.1 % (10.0-14.5); WHITE BLOOD COUNT 4.4 10^3/uL (4.3-11.0)
[2017-07-03 06:52] LABS: BUN/CREATININE RATIO 16; CALCIUM 9.1 MG/DL (8.5-10.1); CARBON DIOXIDE 23 MMOL/L (21-32); CHLORIDE 103 MMOL/L (98-107); CREATININE SERUM 0.82 MG/DL (0.60-1.30); GFR ESTIMATED > 60; GLUCOSE 79 MG/DL (70-105); POTASSIUM 4.4 MMOL/L (3.6-5.0); SODIUM 137 MMOL/L (135-145)
[2017-07-03] MEDS: DOCUSATE SODIUM 100 MG (COLACE) CAP PO SCH (08:32)
[2017-07-03] MEDS: POLYETHYLENE GLYCOL 17 GM (MIRALAX) PACK PO SCH (08:32)
[2017-07-03] MEDS: PREGABALIN 50 MG (LYRICA) CAP PO SCH (08:32)
[2017-07-03] MEDS: BENZTROPINE MESYLATE 1 MG (COGENTIN) TAB PO SCH (08:32)
[2017-07-03] MEDS: SENNA W/DOCUSATE (SENOKOT S) TABLET PO SCH (08:32)
[2017-07-03] MEDS: DIVALPROEX 500 MG DELAYED RELEASE (DEPAKOTE) TAB PO SCH (08:32)
[2017-07-03 09:52] VITALS: BP 128/70
--- NOTE | 2017-07-03 10:02 | Physical Therapy Evaluation ---
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 Patient propels w/c with feet PLOF PT Evaluation-Current Subjective Patient repeats, "Don't hurt me." Caregiver present and reports this is normal. Pain Numeric Pain Scale: 0-No Pain Location: No Pain Reported Objective Patient Orientation: MR Problem Solving: Poor indwelling catheter ROM/Strength ROM Lower Extremities bilateral LE PROM WFL/bilateral foot contractures noted Strength Lower Extremities 2/5 grossly bilaterally Integumentary/Posture Integumentary refer to nursing notes Bowel Incontinence: Yes Posture bilateral UE contractures with trunk flexed posture due to sitting majority of time Neuromuscular (Tone, Coordination, Reflexes) severely diminished with all due to medical/physical history Sensory Vision: Functional Hearing: Functional Sensation Right Lower Extremit: Impaired Sensation Left Lower Extremity: Impaired Transfers Functional [place] Measure 0=Not Assessed/NA 4=Minimal Assistance 1=Total Assistance 5=Supervision or Setup 2=Maximal Assistance 6=Modified [place] 3=Moderate Assistance 7=Complete [place] Transfers (B, C, W/C) (FIM): 1 Scootin Rollin Supine to/from Sit: 1 Sit to/from Stand: 1 bed t/f WC(FIM only if WC use): 1 dependent SPT bed to recliner with patient minimally assisting with stand Gait Mode of Locomotion: Wheelchair Anticipated Mode of Locomotion: Wheelchair Balance Sitting Static: Fair Sitting Dynamic: Poor Standing Static: Poor Standing Dynamic: Poor Assessment/Needs 57 y.o. male, will be seen short term by skilled PT to address functional mobility to [facility] with 100% caregiver assist. Rehab Potential: Guarded PT [employer] Team Lead Goals Detention Goals PT [employer] Team Lead Goals Time Frame: July 11, 2017 Transfers (B,C,W/C) (FIM): 2 PT Plan Problem List Problem List: Activity Tolerance, Functional Strength, Safety, Balance, Transfer, Bed Mobility Treatment/Plan Treatment Plan: Continue Plan of Care Treatment Plan: Bed Mobility, Education, Functional Activity [place], Functional Strength, Safety, Therapeutic Exercise, Transfers Treatment Duration: July 11, 2017 Frequency: 5 times per week Estimated Hrs Per Day: .25 hour per day Patient and/or Family Agrees t: Yes Time/GCodes Time In: 825 Time Out: 850 Total Billed Treatment Time: 25 Total Billed Treatment 1 visit [facility] 25 min JOCELYN PRESSLEY PT July 03, 2017 10:02
--- NOTE | 2017-07-03 19:12 | Discharge Summary ---
Diagnosis/Chief Complaint Date of Admission Jun 30, 2017 at 19:37 Date of Discharge July 03, 2017 at 12:49 Discharge Date: July 03, 2017 Discharge Diagnosis 1. Severe Hyponatremia--improved 2. UTI with ESBL positive E. coli--requiring meropenem 3. Constipation--improved 4. Developmentally Delayed with Behavior Disorder--stable 5. Cerebral Palsy with Limb Contractures and Gait Difficulty Reason Hospital Visit This is a 57 year old mentally disabled male with a chronic indwelling winchester catheter who was brought to the emergency room for unusual behavior and constipation. He was found to be hyponatremic with a sodium of 111 and to have a UTI. He will be admitted for treatment of his UTI as well as correction of his sodium. Discharge Summary Hospital Course Hospital Course This is a 57 year old mentally disabled male with a chronic indwelling winchester catheter who was brought to the emergency room for unusual behavior and constipation. He was found to be hyponatremic with a sodium of 111 and to have a UTI. He will be admitted for treatment of his UTI as well as correction of his sodium. He was initially started on rocephin but his urine culture came back with ESBL positive E. coli so his antibiotic was switched to meropenem. He was given NS initially on admission but his sodium was still 118 so he was started on hypertonic saline and by the following day, his Na was 140 so his IVFs were helplocked. Once his sodium level was improved he was much more awake and talkative like his normal baseline. PT was started to work on strengthening as well as getting him up to the chair and a SWING bed evaluation was obtained as he was going to need at least 5 days of IV meropenem. He did qualify for SWING bed and will be transferred to SWING bed with all of his current orders. Labs Laboratory Tests 06/30/17 21:40: 07/01/17 05:25: Red Blood Count 3.31L, Hemoglobin 10.5L, Hematocrit 29L, Mean Corpuscular Hemoglobin Concent 37H, Monocytes (%) (Auto) 14H, Lymphocytes # (Auto) 0.7L, Sodium Level 118*L, Chloride Level 85L, Glucose Level 65L, Calcium Level 8.3L, Total Protein 5.4L, Albumin 2.9L 07/02/17 05:02: Chloride Level 110#H 07/02/17 05:52: Red Blood Count 3.24L, Hemoglobin 10.3L, Hematocrit 30L, Monocytes (%) (Auto) 17H, Lymphocytes # (Auto) 0.8L, White Blood Count 4.0L 07/02/17 13:39: Glucose Level 130H 07/03/17 06:00: Red Blood Count 3.44L, Hemoglobin 11.0L, Hematocrit 32L, Monocytes (%) (Auto) 15H Procedures None. Discharge Physical Examination Allergies: Coded Allergies: lorazepam (Unverified Adverse Reaction, Intermediate, HYPERACTIVITY, 01/25) Vitals & I&Os Vital Signs Date Time Temp Pulse Resp B/P (MAP) Pulse Ox O2 Delivery O2 Flow Rate FiO2 07/03/17 09:52 95.1 79 18 128/70 (89) 99 Room Air General Appearance: Alert, Oriented X3, Cooperative, No Acute Distress Respiratory: Clear to Auscultation Cardiovascular: Regular Rate Extremities: No Clubbing, No Cyanosis, No Edema Psych/Mental Status: Mood NL Discharge Home Medications Reviewed and agree with Discharge Medication list on patient's Discharge Instruction sheet Instructions to Patient/Family Please see electronic discharge instructions given to patient. Clinical Quality Measures DVT/VTE Risk/Contraindication: Risk Factor Score Per Nursin RFS Level Per Nursing on Admit: 4+=Very High SETH CANALES DO July 03, 2017 19:12
--- NOTE | 2017-07-04 11:25 | Physician Query Clarification ---
PQ-Link Infection to Dev/Proc Admission/Discharge Admission Date: Jun 30, 2017 at 19:37 Discharge Date: July 03, 2017 at 12:49 The medical record reflects the following clinical scenario: History/Risk Factors: INDWELLING WINCHESTER CATHETER Clinical Findings: UTI Treatment: IV ANTIBIOTICS Question: Can you specify if the UTI is due to/associated with indwelling winchester catheter? Please document a response below. PHYSICIAN RESPONSE Specify if infection: Yes,due to/associated with device In responding to this query, please exercise your independent professional judgment. The purpose of this communication is to more accurately reflect the complexity of your patients condition. The fact that a question is asked does not imply that any particular answer is desired or expected. Thank you for your timely response to this clarification. Requestors name: [ ] Phone # [ ] THIS PHYSICIAN QUERY FORM IS A PERMANENT PART OF THE MEDICAL RECORD [facility] July 04, 2017 11:25 SETH CANALES DO July 07, 2017 12:33
== END 2017-07-03 12:49 | disposition swing bed (61) | DRG 699 ==
LOC: EDUNIT# 15:59 → ER 16:01 → 4TH 19:37
PROVIDERS: ADMIT Family Medicine; ATTEND Family Medicine
DX: T83.511A Infection and inflammatory reaction due to indwelling urethral catheter, initial encounter (principal); E87.1 Hypo-osmolality and hyponatremia; N39.0 Urinary tract infection, site not specified; B96.20 Unspecified Escherichia coli [E. coli] as the cause of diseases classified elsewhere; R41.82 Altered mental status, unspecified; K59.00 Constipation, unspecified; J98.11 Atelectasis; R91.8 Other nonspecific abnormal finding of lung field; N32.0 Bladder-neck obstruction; M79.89 Other specified soft tissue disorders; D64.9 Anemia, unspecified; G40.909 Epilepsy, unspecified, not intractable, without status epilepticus; F79 Unspecified intellectual disabilities; F22 Delusional disorders; F41.9 Anxiety disorder, unspecified; F91.8 Other conduct disorders; H53.009 Unspecified amblyopia, unspecified eye; G14 Postpolio syndrome; G80.9 Cerebral palsy, unspecified; Z16.12 Extended spectrum beta lactamase (ESBL) resistance
CPT/HCPCS: 36415; 70450; 71045; 73090; 73130; 74019; 80048; 80053; 80164; 81000; 84300; 85025; 87077; 87088; 87186; 93005; 96365

== ENCOUNTER 2017-07-03 12:55 | Inpatient (IN) | payer MEDICARE, MEDICAID ==
[~2017-07-03] VITALS: Ht 175.3 cm; Wt 74.4 kg
[~2017-07-03 12:55] MED LIST changes: +ALPR1TAB7 PO; +BENZ1TAB6 PO; +BISM262O27 PO; +CALA177S11 TP; +CALC-781 PO; +CALC-9 PO; +DIPH25CA6 PO; +DIVA500T7 PO; +DOCU100C37 PO; +FLUT16SP22 NS; +GUAI-585 PO; +GUAI600T43 PO; +HYDR28CR18 TP; +KETO120S11 TP; +LACT1CAP40 PO; +LORA10TA7 PO; +MENT113P2 TP; +NAPH15DR6 OU; +PNV1TABL72 PO; +PREG50CA2 PO; +SENN1TAB8 PO; +[UNRECOGNIZED DRUG - CODE] MM; +[UNRECOGNIZED DRUG - CODE] TP
[2017-07-03] MEDS ORDERED: ACETAMINOPHEN 500 MG TAB (TYLENOL) PO PRN (13:00)
[2017-07-03] MEDS ORDERED: CATHETER FLUSH 10 ML SYR IV PRN (13:00)
[2017-07-03] MEDS ORDERED: FLEET ENEMA ADULT 1 EA BTL PR PRN (13:00)
--- OUTSIDE RECORDS SUMMARY | 2017-07-03 14:01 | XMS REPORT | Continuity of Care Document ---
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 11/20/2011 MJ HONING MACHINE OPERATOR PRODUCTION, [place] 298.9 P PSYCHOSIS NOS 11/20/2011 MJ HONING MACHINE OPERATOR PRODUCTION, [place] 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 11/20/2011 MJ HONING MACHINE OPERATOR PRODUCTION, [place] 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 11/20/2011 WHITE DDS, FREDDIE J 298.9 P PSYCHOSIS NOS 11/20/2011 WHITE DDS, FREDDIE J 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 11/20/2011 WHITE DDS, FREDDIE J 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 11/20/2011 298.9 P PSYCHOSIS NOS 11/20/2011 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 11/20/2011 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 11/20/2011 MJ HONING MACHINE OPERATOR PRODUCTION, [place] 298.9 P PSYCHOSIS NOS 11/20/2011 MJ HONING MACHINE OPERATOR PRODUCTION, [place] 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 11/20/2011 MJ HONING MACHINE OPERATOR PRODUCTION, [place] 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 11/20/2011 MJ HONING MACHINE OPERATOR PRODUCTION, [place] 298.9 P PSYCHOSIS NOS 11/20/2011 MJ HONING MACHINE OPERATOR PRODUCTION, [place] 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 11/20/2011 MJ HONING MACHINE OPERATOR PRODUCTION, [place] 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 02/27/2012 V58.69 high [...] ANNA V58.69 high risk medication 02/27/2012 MJ HONING MACHINE OPERATOR PRODUCTION, [place] V58.69 high risk medication 02/27/2012 WHITE DDS, FREDDIE J V58.69 high risk medication 02/27/2012 MJ HONING MACHINE OPERATOR PRODUCTION, [place] V58.69 high risk medication 02/27/2012 MJ HONING MACHINE OPERATOR PRODUCTION, [place] V58.69 high risk medication 03/20/2012 DAVID [...] ACUTE PAIN DUE TO TRAUMA 03/20/2012 MJ HONING MACHINE OPERATOR PRODUCTION, [place] 312.30 I IMPULSE CONTROL DISORDER NOS 03/20/2012 MJCARA NELSONN, [place] 338.11 PAIN - ACUTE PAIN DUE TO TRAUMA 03/20/2012 MJ HONING MACHINE OPERATOR PRODUCTION, [place] 312.30 I IMPULSE CONTROL DISORDER NOS 03/20/2012 MJ HONING MACHINE OPERATOR PRODUCTION, [place] 338.11 PAIN - ACUTE PAIN DUE [...] DDSANNA 307.47 SI DYSSOMNIA NOS 07/01/2012 MJ HONING MACHINE OPERATOR PRODUCTION, [place] 296.90 MOOD DISORDER NOS 07/01/2012 MJ HONING MACHINE OPERATOR PRODUCTION, [place] 307.47 SI DYSSOMNIA NOS 07/01/2012 WHITE DDS, FREDDIE J 296.90 MOOD DISORDER NOS 07/01/2012 WHITE DDS, FREDDIE J 307.47 SI DYSSOMNIA NOS 07/01/2012 MJ HONING MACHINE OPERATOR PRODUCTION, [place] 296.90 MOOD DISORDER NOS 07/01/2012 MJ HONING MACHINE OPERATOR PRODUCTION, [place] 307.47 SI DYSSOMNIA NOS 07/01/2012 MJ HONING MACHINE OPERATOR PRODUCTION, [place] 296.90 MOOD DISORDER NOS 07/01/2012 MJ HONING MACHINE OPERATOR PRODUCTION, [place] 307.47 SI DYSSOMNIA NOS 04/19/2013 RASHAD GAN MD 297.1 P DELUSIONAL DIS 04/19/2013 WHITE DDS BRANDON D 297.1 P DELUSIONAL DIS 04/19/2013 YOHANA HARRISSANNA 297.1 P DELUSIONAL DIS 04/19/2013 MJ HONING MACHINE OPERATOR PRODUCTION, [place] 297.1 P DELUSIONAL DIS 04/19/2013 WHITE DDSFREDDIE J 297.1 P DELUSIONAL DIS 04/19/2013 MJ HONING MACHINE OPERATOR PRODUCTION, [place] 297.1 P DELUSIONAL DIS 04/19/2013 MJ HONING MACHINE OPERATOR PRODUCTION, [place] 297.1 P DELUSIONAL DIS 01/19/2014 Ot [...] TONYA BLOOD DO Ot Y92.193 BEDROOM IN [facility] RESIDENTIAL INSTITUTION A 10/25/2015 TONYA BLOOD DO Ot Y99.8 OTHER EXTERNAL CAUSE STATUS 10/26/2015 TONYA BLOOD DO Ot S90.32XA CONTUSION OF LEFT FOOT, INITIAL ENCOUNTE 10/26/2015 TONYA BLOOD DO Ot S93.402A SPRAIN OF UNSPECIFIED LIGAMENT OF LEFT A 10/26/2015 TONYA BLODO DO, Ot S99.922A UNSPECIFIED INJURY OF LEFT FOOT, INITIAL 10/26/2015 TONYA BLOOD DO Ot W22.03XA WALKED INTO FURNITURE, INITIAL ENCOUNTER 10/26/2015 TONYA BLOOD DO Ot Y92.193 BEDROOM IN [facility] RESIDENTIAL INSTITUTION A 10/26/2015 TONYA BLOOD [...] PAIN IN LEFT FOOT 11/13/2015 TASHIA HURLEY HONING MACHINE OPERATOR PRODUCTION Ot R29.6 REPEATED FALLS 11/13/2015 TASHIA HURLEY APRN Ot R60.9 EDEMA, UNSPECIFIED 11/13/2015 TASHIA HURLEY APRN Ot Z79.899 OTHER FIXTURE BUILDER (CURRENT) DRUG THERAPY 12/04/2015 TASHIA HURLEY APRN Ot M25.572 PAIN IN LEFT ANKLE AND JOINTS OF LEFT FO 12/04/2015 TASHIA HURLEY APRN Ot M79.662 PAIN IN LEFT LOWER LEG 12/04/2015 TASHIA HURLEY APRN Ot M79.672 PAIN IN LEFT FOOT 12/04/2015 TASHIA HURLEY HONING MACHINE OPERATOR PRODUCTION Ot R29.6 REPEATED FALLS 12/04/2015 TASHIA HURLEY APRN Ot R60.9 EDEMA, UNSPECIFIED 12/04/2015 TASHIA HURLEY APRN Ot Z79.899 OTHER FIXTURE BUILDER (CURRENT) DRUG THERAPY 12/07/2015 TASHIA HURLEY APRN Ot M25.572 PAIN IN LEFT ANKLE AND JOINTS OF LEFT FO 12/07/2015 TASHIA HURLEY HONING MACHINE OPERATOR PRODUCTION Ot M79.662 PAIN IN LEFT LOWER LEG 12/07/2015 TASHIA HURLEY Buck DELA CRUZ Ot M79.672 PAIN IN LEFT FOOT 12/07/2015 TASHIA HURLEY Buck DELA CRUZ Ot R29.6 REPEATED FALLS 12/07/2015 TASHIA HURLEY Buck DELA CRUZ Ot R60.9 EDEMA, UNSPECIFIED 12/07/2015 TASHIA HURLEY Buck DELA CRUZ Ot Z79.899 OTHER FIXTURE BUILDER (CURRENT) DRUG THERAPY 05/01/2016 Ot 331.9 CEREB [...] AND JOINTS OF LEFT FO 05/01/2016 SANTA HURLYENeymar Jane APRN Ot M79.662 PAIN IN LEFT LOWER LEG 05/01/2016 TASHIA HURLEY Buck NELSONN Ot M79.672 PAIN IN LEFT FOOT 05/01/2016 TASHIA HURLEY Buck DELA CRUZ Ot R29.6 REPEATED FALLS 05/01/2016 TASHIA HURLEY Buck DELA CRUZ Ot R60.9 EDEMA, UNSPECIFIED 05/01/2016 TASHIA HURLEY Buck DELA CRUZ Ot Z79.899 OTHER ALF (CURRENT) DRUG THERAPY 05/02/2016 GABINONDER DOHENRIQUETISH S [...] R10.84 GENERALIZED ABDOMINAL PAIN 05/30/2016 KELL, GENE SPREAD CUTTER Ot K59.00 CONSTIPATION, UNSPECIFIED 05/30/2016 KELL, GENE SPREAD CUTTER Ot K80.20 CALCULUS OF GALLBLADDER W/O CHOLECYSTITI 05/30/2016 KELL, GENE SPREAD CUTTER Ot N39.0 URINARY TRACT INFECTION, SITE NOT SPECIF 05/30/2016 KELL, GENE SPREAD CUTTER Ot R19.7 DIARRHEA, UNSPECIFIED 05/30/2016 KELL, GENE SPREAD CUTTER Ot R93.49 ABN RADLGC FINDINGS ON DX IMAGING OF OT 05/30/2016 KELL, GENE SPREAD CUTTER Ot Z79.899 OTHER FIXTURE BUILDER (CURRENT) DRUG THERAPY 05/30/2016 TISH NOE DO Ot R10.11 RIGHT UPPER QUADRANT PAIN 05/30/2016 TISH NOE DO Ot R74.8 ABNORMAL LEVELS OF OTHER SERUM ENZYMES 05/31/2016 KELL, GENE SPREAD CUTTER Ot K59.00 CONSTIPATION, UNSPECIFIED 05/31/2016 KELL, GENE SPREAD CUTTER Ot K80.20 CALCULUS OF GALLBLADDER W/O CHOLECYSTITI 05/31/2016 KELL, GENE SPREAD CUTTER Ot N39.0 URINARY TRACT INFECTION, SITE NOT SPECIF 05/31/2016 KELL, GENE SPREAD CUTTER Ot R19.7 DIARRHEA, UNSPECIFIED 05/31/2016 KELL, GENE SPREAD CUTTER Ot R93.49 ABN RADLGC FINDINGS ON DX IMAGING OF OT 05/31/2016 KELL, GENE SPREAD CUTTER Ot Z79.899 OTHER FIXTURE BUILDER (CURRENT) DRUG THERAPY 06/01/2016 KELL, GENE SPREAD CUTTER Ot K59.00 CONSTIPATION, UNSPECIFIED 06/01/2016 KELL, GENE SPREAD CUTTER Ot K80.20 CALCULUS OF GALLBLADDER W/O CHOLECYSTITI 06/01/2016 KELL, GENE SPREAD CUTTER Ot N39.0 URINARY TRACT INFECTION, SITE NOT SPECIF 06/01/2016 GENE CASTORENA Ot R19.7 DIARRHEA, UNSPECIFIED 06/01/2016 GENE CASTORENA Ot R93.49 ABN RADLGC FINDINGS ON DX IMAGING OF OTH 06/01/2016 GENE CASTORENA Ot Z79.899 OTHER FIXTURE BUILDER (CURRENT) DRUG THERAPY 06/03/2016 ORENDER DO, TISH S Ot R10.11 RIGHT UPPER QUADRANT PAIN 06/03/2016 ORENDER DO, TISH S Ot R74.8 ABNORMAL LEVELS OF OTHER SERUM ENZYMES 06/03/2016 ROGERIO COLINDRES, NAGELA Martinez Ot K80.20 CALCULUS OF GALLBLADDER W/O [...] K59.09 OTHER CONSTIPATION 01/09/2017 JASON, FATUMA R HONING MACHINE OPERATOR PRODUCTION Ot R22.42 LOCALIZED SWELLING, MASS AND LUMP, LEFT 01/09/2017 JASON, FATUMA R HONING MACHINE OPERATOR PRODUCTION Ot R22.42 LOCALIZED SWELLING, MASS AND LUMP, LEFT 01/09/2017 JASON, FATUMA R HONING MACHINE OPERATOR PRODUCTION Ot R22.42 LOCALIZED SWELLING, MASS AND LUMP, LEFT 01/09/2017 JASON, FATUMA R HONING MACHINE OPERATOR PRODUCTION Ot G57.93 UNSPECIFIED MONONEUROPATHY OF BILATERAL 01/09/2017 JASON, FATUMA R HONING MACHINE OPERATOR PRODUCTION Ot R22.42 LOCALIZED SWELLING, MASS AND LUMP, LEFT 01/09/2017 Ot 331.9 CEREB DEGENERATION NOS 01/09/2017 Ot 780.93 MEMORY LOSS 01/09/2017 Ot V81.5 SCREEN FOR NEPHROPATHY 01/09/2017 Ot 719.45 JOINT PAIN- PELVIS 01/09/2017 Ot 780.97 ALTERED MENTAL STATUS 01/09/2017 Ot 719.45 JOINT PAIN- PELVIS 01/09/2017 WILTON PAUL DO Ot V72.84 EXAM PRE-OPERATIVE NOS 01/09/2017 TASHIA HURLEY HONING MACHINE OPERATOR PRODUCTION Ot M25.572 PAIN IN LEFT ANKLE AND JOINTS OF LEFT FO 01/09/2017 TASHIA HURLEY HONING MACHINE OPERATOR PRODUCTION Ot M79.662 PAIN IN LEFT LOWER LEG 01/09/2017 TASHIA HURLEY HONING MACHINE OPERATOR PRODUCTION Ot M79.672 PAIN IN LEFT FOOT 01/09/2017 TASHIA HURLEY HONING MACHINE OPERATOR PRODUCTION Ot R29.6 REPEATED FALLS 01/09/2017 TASHIA HURLEY HONING MACHINE OPERATOR PRODUCTION Ot R60.9 EDEMA, UNSPECIFIED 01/09/2017 TASHIA HURLEY HONING MACHINE OPERATOR PRODUCTION Ot Z79.899 OTHER FIXTURE BUILDER (CURRENT) DRUG THERAPY 01/09/2017 TISH NOE DO Ot N28.1 CYST OF KIDNEY, ACQUIRED 01/09/2017 TISH NOE DO Ot R10.84 GENERALIZED ABDOMINAL PAIN 01/09/2017 TISH NOE DO Ot R10.11 RIGHT UPPER QUADRANT PAIN 01/09/2017 TISH NOE DO Ot R74.8 ABNORMAL LEVELS OF OTHER SERUM ENZYMES 01/09/2017 MICHELLE GOMEZON R HONING MACHINE OPERATOR PRODUCTION Ot G57.93 UNSPECIFIED MONONEUROPATHY OF BILATERAL 01/09/2017 JASON, FATUMA R HONING MACHINE OPERATOR PRODUCTION Ot R22.42 LOCALIZED SWELLING, MASS AND LUMP, LEFT 01/10/2017 JASON, FATUMA R HONING MACHINE OPERATOR PRODUCTION Ot G57.93 UNSPECIFIED MONONEUROPATHY OF BILATERAL 01/10/2017 JASON, FATUMA R HONING MACHINE OPERATOR PRODUCTION Ot R22.42 LOCALIZED SWELLING, MASS AND LUMP, LEFT 01/31/2017 JASON, FATUMA R HONING MACHINE OPERATOR PRODUCTION Ot R22.43 LOCALIZED SWELLING, MASS AND LUMP, [...] BLO 05/01/2017 DALI MURILLO APRN Ot Z79.52 ALF (CURRENT) USE OF SYSTEMIC STER 05/01/2017 DALI [...] BLO 05/05/2017 DALI MURILLO APRN Ot Z79.52 FIXTURE BUILDER (CURRENT) USE OF SYSTEMIC STER 05/05/2017 DALI [...] BLO 05/07/2017 DALI MURILLO APRN Ot Z79.52 FIXTURE BUILDER (CURRENT) USE OF SYSTEMIC STER 05/07/2017 DALI MURILLO APRN Ot Z87.19 PERSONAL HISTORY OF OTHER DISEASES OF TH 05/07/2017 DALI MURILLO APRN Ot Z88.8 ALLERGY STATUS TO [facility] DRUG/MEDS/BIOL SUB 05/07/2017 MUSA COLINDRES, FLOWER Finch Ot R60.9 EDEMA, UNSPECIFIED 05/26/2017 FLOWER VIGIL MD Ot R60.9 EDEMA, UNSPECIFIED 06/25/2017 CATRACHO EM Ot F22 DELUSIONAL DISORDERS 06/25/2017 CATRACHO EM Ot F41.9 ANXIETY DISORDER, UNSPECIFIED 06/25/2017 CATRACHO EM Ot G14 POSTPOLIO SYNDROME 06/25/2017 CATRACHO EM Ot G40.909 EPILEPSY, UNSP, NOT INTRACTABLE, WITHOUT 06/25/2017 CATRACHO EM Ot S01.81XA LACERATION W/O FOREIGN BODY OF OTH PART 06/25/2017 CATRACHO EM Ot S09.90XA UNSPECIFIED INJURY OF HEAD, INITIAL ENCO 06/25/2017 CATRCAHO EM Ot W26.8XXA CONTACT WITH OTHER SHARP OBJECT(S), NEC, 06/25/2017 CATRACHO EM Ot Z79.52 FIXTURE BUILDER (CURRENT) USE OF SYSTEMIC STER 06/25/2017 CATRACHO EM Ot Z87.19 PERSONAL HISTORY OF OTHER DISEASES OF TH 06/25/2017 CATRACHO EM Ot Z87.440 PERSONAL HISTORY OF URINARY (TRACT) INFE 06/29/2017 CATRACHO EM Ot F22 DELUSIONAL DISORDERS 06/29/2017 CATRACHO EM Ot F41.9 ANXIETY DISORDER, UNSPECIFIED 06/29/2017 CATRACHO EM Ot G14 POSTPOLIO SYNDROME 06/29/2017 ZITA PA, CATRACHO L Ot G40.909 EPILEPSY, UNSP, NOT INTRACTABLE, WITHOUT 06/29/2017 CATRACHO EM Ot S01.81XA LACERATION W/O FOREIGN BODY OF OTH PART 06/29/2017 CATRACHO EM Ot S09.90XA UNSPECIFIED INJURY OF HEAD, INITIAL ENCO 06/29/2017 CATRACHO EM Ot W26.8XXA CONTACT WITH OTHER SHARP OBJECT(S), NEC, 06/29/2017 CATRACHO EM Ot Z79.52 ALF (CURRENT) USE OF SYSTEMIC STER 06/29/2017 CATRACHO EM Ot Z87.19 PERSONAL HISTORY OF OTHER DISEASES OF TH 06/29/2017 CATRACHO EM Ot Z87.440 PERSONAL HISTORY OF URINARY (TRACT) INFE 07/02/2017 TISH NOE DO S Ot D64.9 ANEMIA, UNSPECIFIED 07/02/2017 GABINONDER OMARI CHLINE S Ot E87.1 HYPO-OSMOLALITY AND HYPONATREMIA 07/02/2017 OMARI NOE DOLINE S Ot F22 DELUSIONAL DISORDERS 07/02/2017 GABINONDER OMARI CHLINE S Ot F41.9 ANXIETY DISORDER, UNSPECIFIED 07/02/2017 GABINONDER OMARI CHLINE S Ot F79 UNSPECIFIED INTELLECTUAL DISABILITIES 07/02/2017 ADINER OMARI CHLINE S Ot F91.8 OTHER CONDUCT DISORDERS 07/02/2017 GABINONDER OMARI CHLINE S Ot G14 POSTPOLIO SYNDROME 07/02/2017 GABINONDOMARI MIN DOLINE S Ot G40.909 EPILEPSY, UNSP, NOT INTRACTABLE, WITHOUT 07/02/2017 GABINONDER OMARI CHLINE S Ot H53.009 UNSPECIFIED AMBLYOPIA, UNSPECIFIED EYE 07/02/2017 GABINONDER HENRIQUE CHTISH S Ot J98.11 ATELECTASIS 07/02/2017 GABINONDER HENRIQUE CHTISH S Ot K59.00 CONSTIPATION, UNSPECIFIED 07/02/2017 GABINONDER HENRIQUE CHTISH S Ot M79.89 OTHER SPECIFIED SOFT TISSUE DISORDERS 07/02/2017 GABINONDER OMARI CHLINE S Ot N32.0 BLADDER-NECK OBSTRUCTION 07/02/2017 GABINONDHENRIQUE MIN DOQUELINE S Ot N39.0 URINARY TRACT INFECTION, SITE NOT SPECIF 07/02/2017 GABINONDER TISH CH Ot R41.82 ALTERED MENTAL STATUS, UNSPECIFIED 07/02/2017 GABINONDER , TISH Zamudio Ot R91.8 OTHER NONSPECIFIC ABNORMAL FINDING OF ASHA 07/03/2017 ITSH NOE DO Ot D64.9 ANEMIA, UNSPECIFIED 07/03/2017 GABINONDMECHELLE CH TISH S Ot E87.1 HYPO-OSMOLALITY AND HYPONATREMIA 07/03/2017 ALLY CH TISH S Ot F22 DELUSIONAL DISORDERS 07/03/2017 GABINONDER , TISH S Ot F41.9 ANXIETY DISORDER, UNSPECIFIED 07/03/2017 GABINONDER , TISH S Ot F79 UNSPECIFIED INTELLECTUAL DISABILITIES 07/03/2017 GABINONDMECHELLE CH, TISH S Ot F91.8 OTHER CONDUCT DISORDERS 07/03/2017 ALLY CH TISH S Ot G14 POSTPOLIO SYNDROME 07/03/2017 ALLY CH TISH S Ot G40.909 EPILEPSY, UNSP, NOT INTRACTABLE, WITHOUT 07/03/2017 GABINONDER , TISH S Ot H53.009 UNSPECIFIED AMBLYOPIA, UNSPECIFIED EYE 07/03/2017 ALLY CH TISH S Ot J98.11 ATELECTASIS 07/03/2017 ALLY CH, TISH S Ot K59.00 CONSTIPATION, UNSPECIFIED 07/03/2017 GABINONDER , TISH S Ot M79.89 OTHER SPECIFIED SOFT TISSUE DISORDERS 07/03/2017 ALLY CH TISH Zamudio Ot N32.0 BLADDER-NECK OBSTRUCTION 07/03/2017 GABINONDER , TISH S Ot N39.0 URINARY TRACT INFECTION, SITE NOT SPECIF 07/03/2017 TISH NOE DO Ot R41.82 ALTERED MENTAL STATUS, UNSPECIFIED 07/03/2017 GABINONDMECHELLE CH, TISH S Ot R91.8 OTHER NONSPECIFIC ABNORMAL FINDING OF ASHA 07/03/2017 TISH NOE DO Ot D64.9 ANEMIA, UNSPECIFIED 07/03/2017 GABINONDER , TISH S Ot E87.1 HYPO-OSMOLALITY AND HYPONATREMIA 07/03/2017 GABINONDMECHELLE CH, TISH S Ot F22 DELUSIONAL DISORDERS 07/03/2017 ADIN TISH S Ot F41.9 ANXIETY DISORDER, UNSPECIFIED 07/03/2017 ADIN TISH CH Ot F79 UNSPECIFIED INTELLECTUAL DISABILITIES 07/03/2017 GABINOARMANDO TISH S Ot F91.8 OTHER CONDUCT DISORDERS 07/03/2017 ADIN TISH S Ot G14 POSTPOLIO SYNDROME 07/03/2017 GABINOARMANDO TISH S Ot G40.909 EPILEPSY, UNSP, NOT INTRACTABLE, WITHOUT 07/03/2017 GABINOIRISH CH TISH S Ot H53.009 UNSPECIFIED AMBLYOPIA, UNSPECIFIED EYE 07/03/2017 ADIN TISH CH Ot J98.11 ATELECTASIS 07/03/2017 ADIN TISH S Ot K59.00 CONSTIPATION, UNSPECIFIED 07/03/2017 GABINOARMANDO HENRIQUETISH S Ot M79.89 OTHER SPECIFIED SOFT TISSUE DISORDERS 07/03/2017 TISH NOE DO Ot N32.0 BLADDER-NECK OBSTRUCTION 07/03/2017 ADIN TISH S Ot N39.0 URINARY TRACT INFECTION, SITE NOT SPECIF 07/03/2017 GABINOIRISH CH TISH S Ot R41.82 ALTERED MENTAL STATUS, UNSPECIFIED 07/03/2017 GABINOARMANDO TISH S Ot R91.8 OTHER NONSPECIFIC ABNORMAL FINDING OF ASHA 07/03/2017 GABINOIRISH CHHENRIQUETISH S Ot D64.9 ANEMIA, UNSPECIFIED 07/03/2017 ADIN HENRIQUE CHITSH S Ot E87.1 HYPO-OSMOLALITY AND HYPONATREMIA 07/03/2017 GABINOIRISH HENRIQUE CHTISH S Ot F22 DELUSIONAL DISORDERS 07/03/2017 GABINOARMANDO HENRIQUETISH S Ot F41.9 ANXIETY DISORDER, UNSPECIFIED 07/03/2017 ADIN TISH CH Ot F79 UNSPECIFIED INTELLECTUAL DISABILITIES 07/03/2017 ADIN TISH S Ot F91.8 OTHER CONDUCT DISORDERS 07/03/2017 GABINOARMANDO HENRIQUETISH S Ot G14 POSTPOLIO SYNDROME 07/03/2017 ADIN DO TISH S Ot G40.909 EPILEPSY, UNSP, NOT INTRACTABLE, WITHOUT 07/03/2017 TISH NOE DO Ot H53.009 UNSPECIFIED AMBLYOPIA, UNSPECIFIED EYE 07/03/2017 TISH NOE DO Ot J98.11 ATELECTASIS 07/03/2017 TISH NOE DO Ot K59.00 CONSTIPATION, UNSPECIFIED 07/03/2017 TISH NOE DO Ot M79.89 OTHER SPECIFIED SOFT TISSUE DISORDERS 07/03/2017 TISH NOE DO Ot N32.0 BLADDER-NECK OBSTRUCTION 07/03/2017 TISH NOE DO Ot N39.0 URINARY TRACT INFECTION, SITE NOT SPECIF 07/03/2017 TISH NOE DO Ot R41.82 ALTERED MENTAL STATUS, UNSPECIFIED 07/03/2017 TISH NOE DO Ot R91.8 OTHER NONSPECIFIC ABNORMAL FINDING OF ASHA Procedures Code Description [place] [address] PSYCH PHARM MGMT 01/22/2012 31290 ROUTINE VENIPUNCTURE 02/27/2012 99309 LIVER PANEL (LFT) 02/27/2012 94316 LIPID PANEL 02/27/2012 [id number] GFR CALC (RESULT ONLY) 02/27/2012 82962 VALPROIC ACID / DEPAKOTE 02/28/2012 38566 RENAL PROFILE 02/28/2012 08426 ROUTINE VENIPUNCTURE 03/20/2012 46080 UA LONG DIP 03/20/2012 71393 CBC 03/20/2012 58462 MRI BRAIN W/O CONTRAST 04/02/2012 84670 MRI EXTREMITY, LOWER RIGHT, W/O CONTRAST 04/02/2012 30265 CMP 12/04/2012 54433 LIPID PANEL 12/04/2012 18889 VALPROIC ACID / DEPAKOTE 12/04/2012 73611 CBC 12/04/2012 66147 VALPROIC ACID / DEPAKOTE 04/26/2013 41690 CBC 04/26/2013 23850 CMP 04/26/2013 26397 CMP 10/15/2013 94897 LIPID PANEL 10/15/2013 09828 CBC 10/15/2013 47727 VALPROIC ACID / DEPAKOTE 10/15/2013 Results Test [...] culture - 11/10/15 14:00 Bacterial urine culture [id number] NRG COLONY COUNT <10,000 NRG FTX;REPORTABLE NO FURTHER STUDIES UNLESS REQUESTED NRG FREE TEXT ENTRY 2 LOW COLONY COUNT NR Bacterial susceptibility panel - 11/10/15 14:00 Gentamicin [...] test by minimum inhibitory concentration - [facility] Complete blood count (CBC) with automated white [...] Manual blood myelocytes/100 leukocytes 1 % NRG [id number] - 05/01/17 14:34 [id number] 51.5 ug/mL 50.0-100.0 Bacterial blood culture - [...] culture - 05/01/17 15:43 Bacterial urine culture [id number] NRG COLONY COUNT 10,000/ML - 100,000/ML NRG [...] culture YES NRG Bacterial urine culture - 06/30/17 17:44 Bacterial urine culture [id number] NRG COLONY COUNT 10,000/ML - 100,000/ML NRG FTX;REPORTABLE PROBABLE 2ND GNR COLONY NRG FREE TEXT ENTRY 2 ISOLATION IN PROGRESS NRG FREE TEXT ENTRY 3 IDENTIFIED NRG Bacterial susceptibility panel - 06/30/17 17:44 Gentamicin susceptibility test by minimum inhibitory concentration > = NRG Trimethoprim/sulfamethoxazole susceptibility test by minimum inhibitoryconcentration >= NRG Ampicillin susceptibility test by minimum inhibitory concentration > = NRG Tobramycin susceptibility test by minimum inhibitory concentration 8 NRG Cefazolin susceptibility test by minimum inhibitory concentration > = NRG Ceftriaxone susceptibility test by minimum inhibitory concentration R NRG Ampicillin/sulbactam susceptibility test by minimum inhibitory concentration R NRG Ciprofloxacin susceptibility test by minimum inhibitory concentration >= NRG Meropenem susceptibility test by minimum inhibitory concentration < = NRG Nitrofurantoin susceptibility test by minimum inhibitory concentration <= NRG Aztreonam susceptibility test by minimum inhibitory concentration R NRG Extended spectrum beta lactamase (ESBL) producing bacteria susceptibility test by minimum inhibitory concentration + NRG Cefepime susceptibility test by minimum inhibitory concentration R NRG Amikacin susceptibility test by minimum inhibitory concentration S NRG Complete blood count (CBC) with automated [...] plasma albumin measurement (mass/volume) 3.3 g/dL 3.2-4.5 [id number] - 06/30/17 18:00 [id number] 56.1 ug/mL 50.0-100.0 24 hour urine sodium measurement (mass/time) - 06/30/17 21:40 24 hour urine specimen volume measurement 7050 mL NRG Urine collection time duration 24 h NRG 24 hour urine sodium measurement (moles/time) 197 mmol NRG Complete blood count (CBC) with automated white blood cell (WBC) differential - 07/01/17 05:25 Blood leukocytes automated count (number/volume) 4.3 10*3/uL 4.3-11.0 Blood erythrocytes automated count (number/volume) 3.31 10*6/uL 4.35-5.85 Venous blood hemoglobin measurement (mass/volume) 10.5 g/dL 13.3-17.7 Blood hematocrit (volume fraction) 29 % 40-54 Automated erythrocyte mean corpuscular volume 87 [foz_us] 80-99 Automated erythrocyte mean corpuscular hemoglobin (mass per erythrocyte) 32 pg 25-34 Automated erythrocyte mean corpuscular hemoglobin concentration measurement ( mass/volume) 37 g/dL 32-36 Automated erythrocyte distribution width ratio 12.2 % 10.0-14.5 Automated blood platelet count (count/volume) 328 10*3/uL 130-400 Automated blood platelet mean volume measurement 8.8 [foz_us] 7.4-10.4 Automated blood neutrophils/100 leukocytes 67 % 42-75 Automated blood lymphocytes/100 leukocytes 17 % 12-44 Blood monocytes/100 leukocytes 14 % 0-12 Automated blood eosinophils/100 leukocytes 2 % 0-10 Automated blood basophils/100 leukocytes 0 % 0-10 Blood neutrophils automated count (number/volume) 2.9 10*3 1.8-7.8 Blood lymphocytes automated count (number/volume) 0.7 10*3 1.0-4.0 Blood monocytes automated count (number/volume) 0.6 10*3 0.0-1.0 Automated eosinophil count 0.1 10*3/uL 0.0-0.3 Automated blood basophil count (count/volume) 0.0 10*3/uL 0.0-0.1 Comprehensive metabolic panel - 07/01/17 05:25 Serum or plasma sodium measurement (moles/volume) 118 mmol/L 135-145 Serum or plasma potassium measurement (moles/volume) 3.9 mmol/L 3.6-5.0 Serum or plasma chloride measurement (moles/volume) 85 mmol/L 98-107 Carbon dioxide 23 mmol/L 21-32 Serum or plasma anion gap determination (moles/volume) 10 mmol/L 5-14 Serum or plasma urea nitrogen measurement (mass/volume) 11 mg/dL 7-18 Serum or plasma creatinine measurement (mass/volume) 0.75 mg/dL 0.60-1.30 Serum or plasma urea nitrogen/creatinine mass ratio 15 NRG Serum or plasma creatinine measurement with calculation of estimated glomerular filtration rate > NRG Serum or plasma glucose measurement (mass/volume) 65 mg/dL 70-105 Serum or plasma calcium measurement (mass/volume) 8.3 mg/dL 8.5-10.1 Serum or plasma total bilirubin measurement (mass/volume) 0.3 mg/dL 0.1-1.0 Serum or plasma alkaline phosphatase measurement (enzymatic activity/volume) 88 U/L 40-136 Serum or plasma aspartate aminotransferase measurement (enzymatic activity/ volume) 16 U/L 5-34 Serum or plasma alanine aminotransferase measurement (enzymatic activity/volume ) 20 U/L 0-55 Serum or plasma protein measurement (mass/volume) 5.4 g/dL 6.4-8.2 Serum or plasma albumin measurement (mass/volume) 2.9 g/dL 3.2-4.5 Whole blood basic metabolic panel - 07/02/17 05:02 Serum or plasma sodium measurement (moles/volume) 141 mmol/L 135-145 Serum or plasma potassium measurement (moles/volume) 4.1 mmol/L 3.6-5.0 Serum or plasma chloride measurement (moles/volume) 110 mmol/L 98-107 Carbon dioxide 23 mmol/L 21-32 Serum or plasma anion gap determination (moles/volume) 8 mmol/L 5-14 Serum or plasma urea nitrogen measurement (mass/volume) 11 mg/dL 7-18 Serum or plasma creatinine measurement (mass/volume) 0.77 mg/dL 0.60-1.30 Serum or plasma urea nitrogen/creatinine mass ratio 14 NRG Serum or plasma creatinine measurement with calculation of estimated glomerular filtration rate > NRG Serum or plasma glucose measurement (mass/volume) 79 mg/dL 70-105 Serum or plasma calcium measurement (mass/volume) 8.6 mg/dL 8.5-10.1 Complete blood count (CBC) with automated white blood cell (WBC) differential - 07/02/17 05:52 Blood leukocytes automated count (number/volume) 4.0 10*3/uL 4.3-11.0 Blood erythrocytes automated count (number/volume) 3.24 10*6/uL 4.35-5.85 Venous blood hemoglobin measurement (mass/volume) 10.3 g/dL 13.3-17.7 Blood hematocrit (volume fraction) 30 % 40-54 Automated erythrocyte mean corpuscular volume 91 [foz_us] 80-99 Automated erythrocyte mean corpuscular hemoglobin (mass per erythrocyte) 32 pg 25-34 Automated erythrocyte mean corpuscular hemoglobin concentration measurement ( mass/volume) 35 g/dL 32-36 Automated erythrocyte distribution width ratio 13.2 % 10.0-14.5 Automated blood platelet count (count/volume) 302 10*3/uL 130-400 Automated blood platelet mean volume measurement 8.7 [foz_us] 7.4-10.4 Automated blood neutrophils/100 leukocytes 61 % 42-75 Automated blood lymphocytes/100 leukocytes 20 % 12-44 Blood monocytes/100 leukocytes 17 % 0-12 Automated blood eosinophils/100 leukocytes 1 % 0-10 Automated blood basophils/100 leukocytes 1 % 0-10 Blood neutrophils automated count (number/volume) 2.4 10*3 1.8-7.8 Blood lymphocytes automated count (number/volume) 0.8 10*3 1.0-4.0 Blood monocytes automated count (number/volume) 0.7 10*3 0.0-1.0 Automated eosinophil count 0.0 10*3/uL 0.0-0.3 Automated blood basophil count (count/volume) 0.0 10*3/uL 0.0-0.1 Whole blood basic metabolic panel - 07/02/17 13:39 Serum or plasma sodium measurement (moles/volume) 138 mmol/L 135-145 Serum or plasma potassium measurement (moles/volume) 4.4 mmol/L 3.6-5.0 Serum or plasma chloride measurement (moles/volume) 106 mmol/L 98-107 Carbon dioxide 25 mmol/L 21-32 Serum or plasma anion gap determination (moles/volume) 7 mmol/L 5-14 Serum or plasma urea nitrogen measurement (mass/volume) 12 mg/dL 7-18 Serum or plasma creatinine measurement (mass/volume) 0.79 mg/dL 0.60-1.30 Serum or plasma urea nitrogen/creatinine mass ratio 15 NRG Serum or plasma creatinine measurement with calculation of estimated glomerular filtration rate > NRG Serum or plasma glucose measurement (mass/volume) 130 mg/dL 70-105 Serum or plasma calcium measurement (mass/volume) 8.6 mg/dL 8.5-10.1 Complete blood count (CBC) with automated white blood cell (WBC) differential - 07/03/17 06:00 Blood leukocytes automated count (number/volume) 4.4 10*3/uL 4.3-11.0 Blood erythrocytes automated count (number/volume) 3.44 10*6/uL 4.35-5.85 Venous blood hemoglobin measurement (mass/volume) 11.0 g/dL 13.3-17.7 Blood hematocrit (volume fraction) 32 % 40-54 Automated erythrocyte mean corpuscular volume 93 [foz_us] 80-99 Automated erythrocyte mean corpuscular hemoglobin (mass per erythrocyte) 32 pg 25-34 Automated erythrocyte mean corpuscular hemoglobin concentration measurement ( mass/volume) 35 g/dL 32-36 Automated erythrocyte distribution width ratio 13.1 % 10.0-14.5 Automated blood platelet count (count/volume) 316 10*3/uL 130-400 Automated blood platelet mean volume measurement 8.2 [foz_us] 7.4-10.4 Automated blood neutrophils/100 leukocytes 58 % 42-75 Automated blood lymphocytes/100 leukocytes 23 % 12-44 Blood monocytes/100 leukocytes 15 % 0-12 Automated blood eosinophils/100 leukocytes 3 % 0-10 Automated blood basophils/100 leukocytes 1 % 0-10 Blood neutrophils automated count (number/volume) 2.6 10*3 1.8-7.8 Blood lymphocytes automated count (number/volume) 1.0 10*3 1.0-4.0 Blood monocytes automated count (number/volume) 0.7 10*3 0.0-1.0 Automated eosinophil count 0.1 10*3/uL 0.0-0.3 Automated blood basophil count (count/volume) 0.0 10*3/uL 0.0-0.1 Whole blood basic metabolic panel - 07/03/17 06:00 Serum or plasma sodium measurement (moles/volume) 137 mmol/L 135-145 Serum or plasma potassium measurement (moles/volume) 4.4 mmol/L 3.6-5.0 Serum or plasma chloride measurement (moles/volume) 103 mmol/L 98-107 Carbon dioxide 23 mmol/L 21-32 Serum or plasma anion gap determination (moles/volume) 11 mmol/L 5-14 Serum or plasma urea nitrogen measurement (mass/volume) 13 mg/dL 7-18 Serum or plasma creatinine measurement (mass/volume) 0.82 mg/dL 0.60-1.30 Serum or plasma urea nitrogen/creatinine mass ratio 16 NRG Serum or plasma creatinine measurement with calculation of estimated glomerular filtration rate > NRG Serum or plasma glucose measurement (mass/volume) 79 mg/dL 70-105 Serum or plasma calcium measurement (mass/volume) 9.1 mg/dL 8.5-10.1 Encounters ACCT No. Visit Date/Time Discharge Status Pt. Type Provider Facility Loc./Unit Complaint [id number] 05/27/2014 13:13:00 05/27/2014 23:59:59 CLS Outpatient ARGENTINA BARKER APRN [id number] 04/14/2014 13:00:00 04/14/2014 23:59:59 CLS Outpatient ARGENTINA BARKER APRN [id number] 11/24/2013 10:27:00 11/24/2013 23:59:59 CLS Outpatient FREDDIE WALDRON DDS [id number] 10/12/2013 14:39:00 10/12/2013 23:59:59 CLS Outpatient ARGENTINA BARKER APRN [id number] 09/29/2013 15:03:00 09/29/2013 23:59:59 CLS Outpatient ANNA MULLER DDS [id number] 04/29/2013 11:39:00 04/29/2013 23:59:59 CLS Outpatient BRANDON WALDRON DDS [id number] 04/19/2013 09:36:00 04/19/2013 23:59:59 CLS Outpatient RASHAD GAN MD [id number] 11/20/2012 12:20:00 11/20/2012 23:59:59 CLS Outpatient DAVID ALVES DO [id number] 04/17/2012 14:26:00 04/17/2012 23:59:59 CLS Outpatient DAVID ALVES DO [id number] 03/20/2012 12:36:00 03/20/2012 23:59:59 CLS Outpatient DAVID ALVES DO [id number] 03/20/2012 12:36:00 03/20/2012 23:59:59 CLS Outpatient DAVID ALVES DO [id number] 02/27/2012 09:38:00 02/27/2012 23:59:59 CLS Outpatient [id number] 01/21/2012 11:29:00 01/21/2012 23:59:59 CLS Outpatient [id number] 07/01/2012 18:05:00 Document Registration [id number] 06/30/2017 19:37:00 07/03/2017 12:49:00 DIS Inpatient TISH NOE DO [facility] 4TH HYPONATREMIA;ALTERED MENTAL STATUS;CONSTIPATION;- [id number] 06/23/2017 20:05:00 06/23/2017 22:52:00 DIS Outpatient CATRACHO EM [facility] ER FALL/HEAD LAC [id number] 05/01/2017 13:57:00 05/01/2017 17:43:00 DIS Emergency DALI MURILLO HONING MACHINE OPERATOR PRODUCTION [facility] ER WEAK,UNAWARE,DIARRHEA [id number] 04/07/2017 14:34:00 04/07/2017 23:59:59 CLS Outpatient FLOWER VIGIL MD [facility] CARD R60.9,M79.606 [id number] 01/13/2017 08:56:00 01/13/2017 23:59:59 CLS Outpatient FATUMA GOMEZ APRN [facility] RAD SWOLLEN ERYTHEMIC COOL LOWER EXTRMETIES [id number] 10/28/2016 07:48:00 10/28/2016 23:59:59 CLS Outpatient ANGELA BEATTY MD [facility] ENDO IRON DEFICIENCY, ANEMIA [id number] 10/23/2016 06:08:00 10/23/2016 15:00:00 DIS Outpatient ANGELA BEATTY MD [facility] PREOP IRON DEFICIENCY/ ANEMIA [id number] 06/07/2016 06:30:00 06/07/2016 12:25:00 DIS Outpatient ANGELA BEATTY MD [facility] SDC GALLSTONES [id number] 06/03/2016 12:49:00 06/03/2016 13:10:00 DIS Outpatient ANGELA BEATTY MD [facility] PREOP GALLSTONES [id number] 05/30/2016 11:31:00 05/30/2016 16:48:00 DIS Emergency GENE CASTORENA [facility] ER DIARRHEA/ABD PAIN FEVER [id number] 05/06/2016 12:00:00 05/06/2016 23:59:59 CLS Outpatient TISH NOE DO [facility] RAD R10.11,R74.8 [id number] 05/01/2016 09:38:00 05/01/2016 23:59:59 CLS Outpatient TISH NOE DO [facility] RAD R46.89 [id number] 11/10/2015 13:21:00 11/10/2015 23:59:59 CLS Outpatient TASHIA HURLEY HONING MACHINE OPERATOR PRODUCTION [facility] RAD LT FT,ANKLE AND LOWER TIB PAIN,PEDAL EDEMA [id number] 10/25/2015 22:19:00 10/25/2015 23:34:00 DIS Emergency JEREMI TONYA [facility] ER FOOT INJ [id number] 10/06/2015 14:22:00 10/06/2015 16:00:00 DIS Outpatient HYUN COLINDRES, KWAN Dee [facility] WOUNDCARE WOUND CARE [id number] 09/26/2015 09:54:00 09/26/2015 12:40:00 DIS Emergency LIBRADO COLINDRES, CARMEN Garcia [facility] ER COSME TO RIGHT LEG [id number] 09/17/2014 01:38:00 09/17/2014 02:29:00 DIS Emergency LORENZO COLINDRES, ERNST Cherry [facility] ER FALL-LAC ABOVE LEFT EYE [id number] 01/25/2014 12:38:00 01/25/2014 15:50:00 DIS Outpatient WILTON PAUL DO [facility] SDC SCREENING [id number] 01/20/2014 07:20:00 01/20/2014 23:59:59 CLS Outpatient WILTON PAUL DO [facility] PREOP SCREENING [id number] 07/03/2017 12:55:00 ACT Inpatient TISH NOE DO [facility] 4TH SWB,EDBL POSITIVE UTI [id number] 01/19/2014 10:57:00 Document Registration [id number] 03/31/2012 12:50:00 Document Registration [id number] 03/26/2012 12:52:00 Document Registration [id number] 07/23/2011 15:53:00 Document Registration [id number] 09/05/2009 09:09:00 Document Registration 03/201509/26/2016 09:38:58 09/26/2016 23:59:59 CLS Outpatient Tish Noe [id number] 06/04/2017 12:00:00 06/04/2017 23:59:59 CLS Outpatient Tish Noe [facility]
[2017-07-03] MEDS: MEROPENEM 500 MG in NS (IVPB) 100 ML IV SCH ×2 (17:15→23:02)
[2017-07-03] MEDS: ENOXAPARIN 40 MG/0.4 ML (LOVENOX) SYR SC SCH (17:16)
[2017-07-03 18:00] VITALS: BP 115/79
[2017-07-03] MEDS: BENZTROPINE MESYLATE 1 MG (COGENTIN) TAB PO SCH (21:00)
[2017-07-03] MEDS ORDERED: PREGABALIN 25 MG (LYRICA) NON-STOCK STRENGTH PO ONE (21:00)
[2017-07-03] MEDS: POLYETHYLENE GLYCOL 17 GM (MIRALAX) PACK PO SCH (21:00)
[2017-07-03] MEDS: SENNA W/DOCUSATE (SENOKOT S) TABLET PO SCH (21:00)
[2017-07-03] MEDS: DIVALPROEX 500 MG DELAYED RELEASE (DEPAKOTE) TAB PO SCH (21:00)
[2017-07-03] MEDS: PREGABALIN 25 MG (LYRICA) NON-STOCK STRENGTH PO SCH (21:01)
[2017-07-03] MEDS: ARIPIPRAZOLE 10 MG (ABILIFY) TAB PO SCH (21:01)
[2017-07-03] MEDS: DOCUSATE SODIUM 100 MG (COLACE) CAP PO SCH (21:01)
[2017-07-03] MEDS: CATHETER FLUSH 10 ML SYR IV SCH (21:07)
[2017-07-04] MEDS: CATHETER FLUSH 10 ML SYR IV SCH ×3 (05:06→20:23)
[2017-07-04] MEDS: MEROPENEM 500 MG in NS (IVPB) 100 ML IV SCH ×4 (05:06→23:01)
[2017-07-04 06:20] VITALS: BP 120/76
--- NOTE | 2017-07-04 09:23 | Physical Therapy Evaluation ---
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/chronic subluxation right hip/seizures/delusions Current History SWB status Reviewed History: Yes Social History Home: [facility] Prior/[facility] Prior Level of Function Functional Bowler Measure 0=Not Assessed/NA 4=Minimal Assistance 1=Total Assistance 5=Supervision or Setup 2=Maximal Assistance 6=Modified Bowler 3=Moderate Assistance 7=Complete Bowler Bed Mobility: 1 Transfers (B,C,W/C) (FIM): 1 Wheelchair Mobility: 4 Patient is non ambulatory per [facility] staffing coordinator/Patient propels w/c with feet PLOF PT Evaluation-Current Subjective Patient agrees to up in chair. Pain Numeric Pain Scale: 0-No Pain Location: No Pain Reported Objective Patient Orientation: MR Problem Solving: Poor indwelling catheter ROM/Strength ROM Lower Extremities bilateral LE PROM WFL/bilateral foot contractures Strenght Lower Extremities 2/5 grossly bilaterally Integumentary/Posture Integumentary refer to nursing notes Bowel Incontinence: Yes Posture bilateral UE contractures with trunk flexed posture due to sitting majority of time Neuromuscular (Tone, Coordination, Reflexes) severely diminished with all due to physical debility Sensory Vision: Functional Hearing: Functional Sensation Right Lower Extremit: Impaired Sensation Left Lower Extremity: Impaired Transfers Functional Bowler Measure 0=Not Assessed/NA 4=Minimal Assistance 1=Total Assistance 5=Supervision or Setup 2=Maximal Assistance 6=Modified Bowler 3=Moderate Assistance 7=Complete Bowler Transfers (B, C, W/C) (FIM): 1 Scootin Rollin Supine to/from Sit: 1 Sit to/from Stand: 1 Sit to Lying (QC): 1 Lying to Sitting/Side of Bed(Q: 1 Sit to Stand (QC): 1 Chair/Ixd-jz-Rfoct Xfer(QC): 1 dependent assist x 2 with all mobility/SPT Gait Does the Patient Walk?: No and Walking Goal NOT indicated Mode of Locomotion: Wheelchair Anticipated Mode of Locomotion: Wheelchair Balance Sitting Static: Poor Sitting Dynamic: Poor Standing Static: Poor Standing Dynamic: Poor Treatment Patient sat EOB with minimal assist x 10 minutes with PT performing PROM bilateral LE. Sit to stand transfers x 3 sets with patient not assisting at all. Dependent assist x 2 with SPT bed to recliner. Assessment/Needs 57 y.o. male, will benefit from short term skilled PT to address functional strength and mobility to improve current LOF. Patient is unable to follow simple direction to perform exercises and requires continuous instruction and tactile cues to perform activity. Rehab Potential: Guarded PT Intermediate Goals Stone Crusher Operator Goals PT Intermediate Goals Time Frame: July 11, 2017 Transfers (B,C,W/C) (FIM): 2 Sit to Lying (QC): 2 Lying-Sitting on Side/Bed(QC): 2 Sit to Stand (QC): 2 Rollin Chair/Fgk-jr-Gllyt Xfer(QC): 2 Does the Patient Walk: No and Walking Goal NOT indicated PT Plan Problem List Problem List: Activity Tolerance, Functional Strength, Safety, Balance, Transfer, Bed Mobility Treatment/Plan Treatment Plan: Continue Plan of Care Treatment Plan: Bed Mobility, Education, Functional Activity Ranulfo, Functional Strength, Safety, Therapeutic Exercise, Transfers Treatment Duration: July 11, 2017 Frequency: 5 times per week Estimated Hrs Per Day: .25 hour per day Patient and/or Family Agrees t: Yes Time/GCodes Time In: 800 Time Out: 828 Total Billed Treatment Time: 28 Total Billed Treatment 1 visit Mary 13 min FA 15 min JOCELYN PRESSLEY PT July 04, 2017 09:23
[2017-07-04] MEDS: POLYETHYLENE GLYCOL 17 GM (MIRALAX) PACK PO SCH ×2 (09:25→20:21)
[2017-07-04] MEDS: PREGABALIN 50 MG (LYRICA) CAP PO SCH (09:25)
[2017-07-04] MEDS: BENZTROPINE MESYLATE 1 MG (COGENTIN) TAB PO SCH ×2 (09:25→20:20)
[2017-07-04] MEDS: DOCUSATE SODIUM 100 MG (COLACE) CAP PO SCH ×2 (09:25→20:21)
[2017-07-04] MEDS: SENNA W/DOCUSATE (SENOKOT S) TABLET PO SCH ×2 (09:25→20:21)
[2017-07-04] MEDS: DIVALPROEX 500 MG DELAYED RELEASE (DEPAKOTE) TAB PO SCH ×2 (09:25→20:21)
--- NOTE | 2017-07-04 10:11 | Progress Note (SOAP) ---
Subjective Date Seen by Provider: July 04, 2017 Time Seen by Provider: 10:07 Subjective/Events-last exam Fwup ESBL positive E. coli UTI, Hyponatremia, Constipation, Mood disorder. Up in chair this morning--alert and talkative. Objective Exam Vital Signs Date Time Temp Pulse Resp B/P (MAP) Pulse Ox O2 Delivery O2 Flow Rate FiO2 07/04/17 06:20 98.0 77 20 120/76 (91) 99 Room Air 07/04/17 01:00 69 07/03/17 19:00 82 07/03/17 18:00 97.0 82 20 115/79 (91) 99 Room Air 07/03/17 13:00 70 I & O 07/04/17 07:00 Intake Total 595 ml Output Total 1425 ml Balance -830 ml Capillary Refill : General Appearance: No Apparent Distress Neck: Supple Respiratory: Lungs Clear Cardiovascular: Regular Rate, Rhythm Gastrointestinal: normal bowel sounds, non tender, soft Extremity: Non Tender, No Calf Tenderness, No Pedal Edema Neurologic/Psychiatric: Alert, Oriented x3 Assessment/Plan Assessment/Plan Assess & Plan/Chief Complaint 1. ESBL positive E. coli UTI--on meropenem 2. Hyponatremia--resolved 3. Constipation--improved 4. Behavior Disorder--stable, back on home meds 5. Cerebral Palsy with limb contractures and gait abnormality--PT started Clinical Quality Measures DVT/VTE Risk/Contraindication: Risk Factor Score Per Nursin SETH CANALES DO July 04, 2017 10:11 am
[2017-07-04 16:58] VITALS: BP 116/69
[2017-07-04] MEDS: ENOXAPARIN 40 MG/0.4 ML (LOVENOX) SYR SC SCH (18:36)
[2017-07-04] MEDS: ARIPIPRAZOLE 10 MG (ABILIFY) TAB PO SCH (20:20)
[2017-07-04] MEDS: PREGABALIN 25 MG (LYRICA) NON-STOCK STRENGTH PO SCH (21:00)
[2017-07-05] MEDS: MEROPENEM 500 MG in NS (IVPB) 100 ML IV SCH ×3 (05:23→17:45)
[2017-07-05] MEDS: CATHETER FLUSH 10 ML SYR IV SCH ×3 (05:24→21:33)
[2017-07-05 06:03] VITALS: BP 107/70
--- NOTE | 2017-07-05 08:03 | Progress Note-Hospitalist ---
Subjective HPI/CC On Admission Date Seen by Provider: July 05, 2017 Time Seen by Provider: 07:30 Subjective/Events-last exam Patient doing well overall Once to go home badly Meropenem as tolerated well We'll check labs in morning Bowel movement this morning Eating and drinking well Review of Systems General: Fatigue Objective Exam Vital Signs Vital Signs Date Time Temp Pulse Resp B/P (MAP) Pulse Ox O2 Delivery O2 Flow Rate FiO2 07/05/17 06:03 97.6 73 16 107/70 (82) 96 Room Air Capillary Refill : General Appearance: No Apparent Distress, WD/WN, Chronically ill Respiratory: Lungs Clear, Normal Breath Sounds Cardiovascular: Regular Rate, Rhythm, No Edema Neurologic/Psychiatric: Alert, Other (CP hx) Results/Procedures Lab Patient resulted labs reviewed. Assessment/Plan Assessment and Plan Assess & Plan/Chief Complaint Assessment per Dr Noe: 1. ESBL positive E. coli UTI--on meropenem 2. Hyponatremia--resolved 3. Constipation--improved 4. Behavior Disorder--stable, back on home meds 5. Cerebral Palsy with limb contractures and gait abnormality--PT started Plan: Abx Monitor closely Swing bed Diagnosis/Problems Diagnosis/Problems (1) UTI due to extended-spectrum beta lactamase (ESBL) producing Escherichia coli Status: Acute (2) Hyponatremia Status: Resolved (3) Constipation Status: Resolved (4) Cerebral palsy Status: Chronic Qualifiers: Cerebral palsy type: unspecified type Qualified Codes: G80.9 - Cerebral palsy, unspecified Clinical Quality Measures DVT/VTE Risk/Contraindication: Risk Factor Score Per Nursin SAMANTHA HANLEY DO July 05, 2017 08:03
[2017-07-05] MEDS: DIVALPROEX 500 MG DELAYED RELEASE (DEPAKOTE) TAB PO SCH ×2 (08:32→21:33)
[2017-07-05] MEDS: POLYETHYLENE GLYCOL 17 GM (MIRALAX) PACK PO SCH ×2 (08:32→21:33)
[2017-07-05] MEDS: PREGABALIN 50 MG (LYRICA) CAP PO SCH (08:32)
[2017-07-05] MEDS: SENNA W/DOCUSATE (SENOKOT S) TABLET PO SCH ×2 (08:32→21:35)
[2017-07-05] MEDS: DOCUSATE SODIUM 100 MG (COLACE) CAP PO SCH ×2 (08:32→21:32)
[2017-07-05] MEDS: BENZTROPINE MESYLATE 1 MG (COGENTIN) TAB PO SCH ×2 (08:32→21:33)
[2017-07-05 17:16] VITALS: BP 105/67
[2017-07-05] MEDS: ENOXAPARIN 40 MG/0.4 ML (LOVENOX) SYR SC SCH (17:43)
[2017-07-05] MEDS ORDERED: PREGABALIN 25 MG (LYRICA) NON-STOCK STRENGTH PO ONE (21:00)
[2017-07-05] MEDS: PREGABALIN 25 MG (LYRICA) NON-STOCK STRENGTH PO SCH (21:30)
[2017-07-05] MEDS: ARIPIPRAZOLE 10 MG (ABILIFY) TAB PO SCH (21:33)
[2017-07-06] MEDS: MEROPENEM 500 MG in NS (IVPB) 100 ML IV SCH ×4 (00:03→19:06)
[2017-07-06 06:00] VITALS: BP 112/69
[2017-07-06] MEDS: CATHETER FLUSH 10 ML SYR IV SCH ×3 (06:25→21:47)
[2017-07-06 07:03] LABS: BASOPHILS % (AUTO) 1 % (0-10); EOSINOPHILS # (AUTO) 0.6 10^3/uL (0.0-0.3); EOSINOPHILS % (AUTO) 10 % (0-10); HEMATOCRIT 34 % (40-54); LYMPHOCYTES % (AUTO) 18 % (12-44); MEAN CORPUSCULAR HEMOGLOBIN 32 PG (25-34); MEAN CORPUSCULAR HGB CONC 33 G/DL (32-36); MEAN CORPUSCULAR VOLUME 96 FL (80-99); MEAN PLATELET VOLUME 8.1 FL (7.4-10.4); MONOCYTES # (AUTO) 0.7 X 10^3 (0.0-1.0); MONOCYTES % (AUTO) 12 % (0-12); NEUTROPHILS # (AUTO) 3.3 X 10^3 (1.8-7.8); NEUTROPHILS % (AUTO) 59 % (42-75); PLATELET COUNT 287 10^3/uL (130-400); RED BLOOD COUNT 3.49 10^6/uL (4.35-5.85); RED CELL DISTRIBUTION WIDTH 13.5 % (10.0-14.5); WHITE BLOOD COUNT 5.5 10^3/uL (4.3-11.0)
[2017-07-06 07:29] LABS: ALANINE AMINOTRANSFERASE 37 U/L (0-55); ALBUMIN 3.5 GM/DL (3.2-4.5); ALKALINE PHOSPHATASE 138 U/L (40-136); BILIRUBIN,TOTAL 0.3 MG/DL (0.1-1.0); BUN/CREATININE RATIO 23; CALCIUM 9.1 MG/DL (8.5-10.1); CARBON DIOXIDE 29 MMOL/L (21-32); CHLORIDE 102 MMOL/L (98-107); CREATININE SERUM 0.94 MG/DL (0.60-1.30); GFR ESTIMATED > 60; GLUCOSE 82 MG/DL (70-105); POTASSIUM 4.4 MMOL/L (3.6-5.0); SODIUM 140 MMOL/L (135-145); TOTAL PROTEIN 6.2 GM/DL (6.4-8.2)
[2017-07-06] MEDS: POLYETHYLENE GLYCOL 17 GM (MIRALAX) PACK PO SCH ×2 (09:58→21:34)
[2017-07-06] MEDS: PREGABALIN 50 MG (LYRICA) CAP PO SCH (09:58)
[2017-07-06] MEDS: SENNA W/DOCUSATE (SENOKOT S) TABLET PO SCH ×2 (09:58→21:34)
[2017-07-06] MEDS: BENZTROPINE MESYLATE 1 MG (COGENTIN) TAB PO SCH ×2 (09:58→21:34)
[2017-07-06] MEDS: DOCUSATE SODIUM 100 MG (COLACE) CAP PO SCH ×2 (09:58→21:34)
[2017-07-06] MEDS: DIVALPROEX 500 MG DELAYED RELEASE (DEPAKOTE) TAB PO SCH ×2 (10:09→21:45)
--- NOTE | 2017-07-06 12:06 | Progress Note-Hospitalist ---
Subjective HPI/CC On Admission Date Seen by Provider: July 06, 2017 Time Seen by Provider: 11:00 Subjective/Events-last exam Patient doing well Once to go home Caregivers at the bedside Labs reviewed Antibiotic tolerated Review of Systems General: Fatigue Objective Exam Vital Signs Vital Signs Date Time Temp Pulse Resp B/P (MAP) Pulse Ox O2 Delivery O2 Flow Rate FiO2 07/06/17 06:00 97.4 89 18 112/69 (83) 97 Room Air Capillary Refill : General Appearance: No Apparent Distress, WD/WN, Chronically ill Respiratory: Lungs Clear, Normal Breath Sounds Cardiovascular: Regular Rate, Rhythm, No Edema Neurologic/Psychiatric: Alert, No Motor/Sensory Deficits, Normal Mood/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 Assessment/Plan Assessment and Plan Assess & Plan/Chief Complaint Assessment per Dr Noe: 1. ESBL positive E. coli UTI--on meropenem 2. Hyponatremia--resolved 3. Constipation--improved 4. Behavior Disorder--stable, back on home meds 5. Cerebral Palsy with limb contractures and gait abnormality--PT started Plan: Abx Monitor closely Swing bed Diagnosis/Problems Diagnosis/Problems (1) UTI due to extended-spectrum beta lactamase (ESBL) producing Escherichia coli Status: Acute (2) Hyponatremia Status: Resolved (3) Constipation Status: Resolved (4) Cerebral palsy Status: Chronic Qualifiers: Cerebral palsy type: unspecified type Qualified Codes: G80.9 - Cerebral palsy, unspecified Clinical Quality Measures DVT/VTE Risk/Contraindication: Risk Factor Score Per Nursin SAMANTHA HANLEY DO July 06, 2017 12:06
[2017-07-06 17:58] VITALS: BP 120/70
[2017-07-06] MEDS: ENOXAPARIN 40 MG/0.4 ML (LOVENOX) SYR SC SCH (19:06)
[2017-07-06] MEDS ORDERED: PREGABALIN 25 MG (LYRICA) NON-STOCK STRENGTH PO SCH (21:00)
[2017-07-06] MEDS: ARIPIPRAZOLE 10 MG (ABILIFY) TAB PO SCH (21:45)
[2017-07-07] MEDS: MEROPENEM 500 MG in NS (IVPB) 100 ML IV SCH ×3 (00:16→12:23)
[2017-07-07 06:11] VITALS: BP 122/70
[2017-07-07] MEDS: CATHETER FLUSH 10 ML SYR IV SCH ×2 (06:31→12:23)
[2017-07-07] MEDS: BENZTROPINE MESYLATE 1 MG (COGENTIN) TAB PO SCH (09:08)
[2017-07-07] MEDS: DIVALPROEX 500 MG DELAYED RELEASE (DEPAKOTE) TAB PO SCH (09:08)
[2017-07-07] MEDS: DOCUSATE SODIUM 100 MG (COLACE) CAP PO SCH (09:08)
[2017-07-07] MEDS: SENNA W/DOCUSATE (SENOKOT S) TABLET PO SCH (09:08)
[2017-07-07] MEDS: PREGABALIN 50 MG (LYRICA) CAP PO SCH (09:08)
[2017-07-07] MEDS: POLYETHYLENE GLYCOL 17 GM (MIRALAX) PACK PO SCH (09:08)
[2017-07-07] MEDS ORDERED: NITR-65 PO ×2 (12:29)
--- NOTE | 2017-07-07 12:31 | Discharge Inst-Simple/Standard ---
Discharge Inst-Standard Discharge Medications New, Converted or Re-Newed RX: Transmitted to Pharmacy Patient Instructions/Follow Up Plan of Care/Instructions/FU: Fwup 1 week Chem 7 in 1 week Activity as Tolerated: Yes Discharge Diet: No Restrictions SETH CANALES DO July 07, 2017 12:31 pm
--- NOTE | 2017-07-07 13:43 | Therapy Team Discharge Summary ---
Therapy Discharge Summary Discharge Recommendations Date of Discharge Physical Therapy Patient to dismiss to [facility] for continued care. Patient requires dependent assist with all mobility and per staff report, patient has been declining and requiring more assistance for a while. Patient seen x 1 session to address strengthening and transfer training. Goals were address,however, not attained. PT Residential Goals Residential Goals PT Breaker Machine Tender Goals Time Frame: July 11, 2017 Transfers (B,C,W/C) (FIM): 2 Sit to Lying (QC): 2 Lying-Sitting on Side/Bed(QC): 2 Sit to Stand (QC): 2 Rollin Chair/Syi-be-Tceyr Xfer(QC): 2 Does the Patient Walk: No and Walking Goal NOT indicated OT Breaker Machine Tender Goals Breaker Machine Tender Goals 1=Demonstrate adherence to instructed precautions during ADL tasks. 2=Patient will verbalize/demonstrate understanding of assistive devices/ modifications for ADL. 3=Patient will improve strength/tolerance for activity to enable patient to perform ADL's. JOCELYN PRESSLEY PT July 07, 2017 13:43
--- NOTE | 2017-07-15 18:45 | Discharge Summary ---
Diagnosis/Chief Complaint Date of Admission July 03, 2017 at 12:55 Date of Discharge July 07, 2017 at 13:30 Discharge Date: July 07, 2017 Discharge Diagnosis 1. UTI with ESBL positive E. coli--requiring meropenem 2. Constipation--improved 3. Developmentally Delayed with Behavior Disorder--stable 4. Cerebral Palsy with Limb Contractures and Gait Difficulty 5. Recent hyponatremia--resolved 6. Urinary Retention from Neurogenic Bladder with Chronic indwelling winchester catheter Discharge Summary Hospital Course Hospital Course This is a ally disable male with a history of cerebral palsy and chronic indwelling winchester catheter who was admitted to acute care with severe hyponatremia and urinary tract infection. His hyponatremia resolved within the first 24hrs. His DDAVP was held and his sodium remained stable the rest of his hospital stay. His urine culture did grow out ESBL positive E. coli so he was started on meropenem and required a full 5 days of meropenem so he was transferred to SWING bed. By the time of discharge his mental status was back to his baseline, his appetite was good and his constipation was improved. He remained afebrile and his WBC count was normal. Procedures None. Discharge Physical Examination Allergies: Coded Allergies: lorazepam (Unverified Adverse Reaction, Intermediate, HYPERACTIVITY, 01/25) General Appearance: Alert, Oriented X3, No Acute Distress Respiratory: Clear to Auscultation Cardiovascular: Regular Rate Abdominal: Normal Bowel Sounds, Soft, No Tenderness Extremities: No Clubbing, No Cyanosis, No Edema Neuro: Other (asymmetric gait) Psych/Mental Status: Other (developmentally disabled) Discharge Home Medications Reviewed and agree with Discharge Medication list on patient's Discharge Instruction sheet Instructions to Patient/Family Please see electronic discharge instructions given to patient. Clinical Quality Measures DVT/VTE Risk/Contraindication: Risk Factor Score Per Nursin SETH CANALES DO July 15, 2017 18:45
== END 2017-07-07 13:30 | disposition home or self-care (01) | DRG 700 ==
LOC: 4TH 12:55
PROVIDERS: ADMIT Family Medicine; ATTEND Family Medicine
DX: T83.511A Infection and inflammatory reaction due to indwelling urethral catheter, initial encounter (principal); N39.0 Urinary tract infection, site not specified; B96.20 Unspecified Escherichia coli [E. coli] as the cause of diseases classified elsewhere; K59.00 Constipation, unspecified; G80.9 Cerebral palsy, unspecified; R26.9 Unspecified abnormalities of gait and mobility; F39 Unspecified mood [affective] disorder; Z16.12 Extended spectrum beta lactamase (ESBL) resistance
CPT/HCPCS: 36415; 80053; 85025

== ENCOUNTER → 2018-09-28 | Outpatient (CLI) | payer MEDICARE, MEDICAID ==
[~2018-09-28] VITALS: Ht 175.3 cm; Wt 81.7 kg
[~2018-09-28] MED LIST changes: +CEPH-507 PO; -DESM0.2T2 PO; +DESM0.2T29 PO; +DIVA-76 PO; -DIVA500T7 PO; +HYDR-3870 PO; -KETO120S11 TP; +KETO120S2 TP; +PNV1TABL PO; -PNV1TABL72 PO; +POLY17PO31 PO; -POLY255P PO; +POLY255P16 PO; +SENN-231 PO; -SENN1TAB8 PO
== END | disposition home or self-care (01) ==
LOC: PREOP 06:25
PROVIDERS: ATTEND Urology
DX: Z01.818 Encounter for other preprocedural examination (principal)

== ENCOUNTER → 2019-10-04 | Outpatient (CLI) | payer MEDICARE, MEDICAID ==
[~2019-10-04] MED LIST changes: -ARIP5TAB20 PO; +ARIP5TAB57 PO; -CLAR-19 PO; +CLAR-31 PO; +DIPH25CA48 PO; -DIPH25CA6 PO; +KETO120S13 TP; -KETO120S2 TP; -OMEP20CA12 PO; +OMEP20CA18 PO
[2019-10-04 14:37] LABS: HEMOGLOBIN 11.9 G/DL (13.3-17.7); MEAN PLATELET VOLUME 9.6 FL (7.4-10.4); RED CELL DISTRIBUTION WIDTH 16.4 % (10.0-14.5); WHITE BLOOD COUNT 4.2 10^3/uL (4.3-11.0)
--- NOTE | 2019-10-04 14:54 | Diagnostic Imaging Report ---
INDICATION: Left foot swelling. TIME OF EXAM: 2:49 PM FINDINGS: Three views of the left foot were obtained. There is moderate soft tissue swelling along the dorsum of the foot. Metatarsals appear to be intact. Phalanges are intact. Midfoot and hindfoot are unremarkable. No fractures are seen. No soft tissue gas is detected. IMPRESSION: 1. Moderate soft tissue swelling. No other significant abnormality is seen. Report faxed to MARIANA Joiner, at 2:53 PM 10/04/2019/wero Dictated by: Dictated on workstation # [id number]
[2019-10-04 14:57] LABS: ALANINE AMINOTRANSFERASE 495 U/L (0-55); ALBUMIN 3.4 GM/DL (3.2-4.5); ALKALINE PHOSPHATASE 435 U/L (40-136); BILIRUBIN,TOTAL 0.3 MG/DL (0.1-1.0); BUN/CREATININE RATIO 19; CALCIUM 9.1 MG/DL (8.5-10.1); CARBON DIOXIDE 25 MMOL/L (21-32); CHLORIDE 103 MMOL/L (98-107); CREATININE SERUM 1.02 MG/DL (0.60-1.30); GFR ESTIMATED > 60; GLUCOSE 114 MG/DL (70-105); POTASSIUM 4.6 MMOL/L (3.6-5.0); SODIUM 139 MMOL/L (135-145); TOTAL PROTEIN 6.8 GM/DL (6.4-8.2); URIC ACID 7.5 MG/DL (2.6-7.2)
[2019-10-04 18:26] LABS: FREE T4 (FREE THYROXINE) 1.1 NG/DL (0.70-1.48)
[2019-10-06 23:40] LABS: HEPATITIS C ANTIBODY C Non-Reactive (Non-Reactive)
== END ==
LOC: RAD 14:18
PROVIDERS: ATTEND Nurse Practitioner Family
DX: R94.5 Abnormal results of liver function studies (principal); M79.605 Pain in left leg; M79.89 Other specified soft tissue disorders
CPT/HCPCS: 36415; 73630; 80053; 80074; 82150; 83690; 83880; 84439; 84443; 84550; 85027; 85379; 86060

== ENCOUNTER → 2019-10-08 | Outpatient (CLI) | payer MEDICARE, MEDICAID ==
--- NOTE | 2019-10-08 08:59 | Diagnostic Imaging Report ---
PROCEDURE: US Gallbladder. TECHNIQUE: Multiple real-time grayscale images were obtained over the right upper quadrant in various projections. INDICATION: Elevated liver enzymes. Liver is normal in size 15.6 cm. No discrete liver mass is detected. The portal vein is patent and shows normal direction of flow. Gallbladder is very limited in evaluation. Patient was unable to understand breathing instructions. In addition, overlying bowel gas obscures anatomy. No definite gallstones or evidence of gallbladder wall thickening is seen. No bile duct dilatation is identified. Pancreas unremarkable. Aorta is nonaneurysmal. IVC is patent. Right kidney was not visualized. There is no ascites. IMPRESSION: Limited study but no gross abnormality is detected. Dictated by: Dictated on workstation # [id number]
== END ==
LOC: RAD 07:40
PROVIDERS: ATTEND Family Medicine
DX: R74.8 Abnormal levels of other serum enzymes (principal)
CPT/HCPCS: 76705

== ENCOUNTER 2020-12-30 20:07 | Inpatient (IN) | payer MEDICARE, MEDICAID ==
[~2020-12-30] VITALS: Ht 180 cm; Wt 83.5 kg
[~2020-12-30 20:07] MED LIST changes: -BETH50TA PO; +BETH50TA2 PO; -POLY17PO31 PO; +POLY17PO54 PO
[2020-12-30] MEDS ORDERED: LACTATED RINGERS 1,000 ML IV ONE (20:15)
[2020-12-30 20:28] LABS: BASOPHILS % (AUTO) 0 % (0-10); EOSINOPHILS # (AUTO) 0.1 10^3/uL (0.0-0.3); EOSINOPHILS % (AUTO) 2 % (0-10); HEMATOCRIT 36 % (40-54); HEMOGLOBIN 12.7 g/dL (13.3-17.7); LYMPHOCYTES % (AUTO) 12 % (12-44); MEAN CORPUSCULAR HEMOGLOBIN 32 pg (25-34); MEAN CORPUSCULAR HGB CONC 35 g/dL (32-36); MEAN CORPUSCULAR VOLUME 91 fL (80-99); MEAN PLATELET VOLUME 9.2 fL (9.0-12.2); MONOCYTES # (AUTO) 0.6 10^3/uL (0.0-1.0); MONOCYTES % (AUTO) 7 % (0-12); NEUTROPHILS # (AUTO) 6.4 10^3/uL (1.8-7.8); NEUTROPHILS % (AUTO) 78 % (42-75); PLATELET COUNT 243 10^3/uL (130-400); WHITE BLOOD COUNT 8.2 10^3/uL (4.3-11.0)
[2020-12-30 20:41] LABS: ALBUMIN 3.5 GM/DL (3.2-4.5)
[2020-12-30 20:42] LABS: CHLORIDE 86 MMOL/L (98-107); POTASSIUM 4.1 MMOL/L (3.6-5.0)
[2020-12-30 20:43] LABS: CALCIUM 8.1 MG/DL (8.5-10.1)
[2020-12-30 20:44] LABS: GLUCOSE 99 MG/DL (70-105); TOTAL PROTEIN 6.6 GM/DL (6.4-8.2)
[2020-12-30 20:45] LABS: CARBON DIOXIDE 23 MMOL/L (21-32)
[2020-12-30 20:47] LABS: ALKALINE PHOSPHATASE 187 U/L (40-136)
[2020-12-30 20:48] LABS: CREATININE SERUM 0.76 MG/DL (0.60-1.30); GFR ESTIMATED 105
[2020-12-30 20:49] LABS: BUN/CREATININE RATIO 32
[2020-12-30 20:50] LABS: MAGNESIUM 1.5 MG/DL (1.6-2.4)
[2020-12-30 20:51] LABS: ALANINE AMINOTRANSFERASE 68 U/L (0-55); CREATINE KINASE 238 U/L (30-200)
[2020-12-30 20:55] LABS: SODIUM 120 MMOL/L (135-145)
[2020-12-30] MEDS ORDERED: NS IV 1000 ML 1,000 ML IV SCH (21:00)
[2020-12-30] MEDS ORDERED: DIAZEPAM INJ 10 MG/2 ML (VALIUM) SYR ONE (21:02)
[2020-12-30 21:05] LABS: VALPROIC ACID < 2.0 UG/ML (50.0-100.0)
[2020-12-30] MEDS ORDERED: DIAZEPAM INJ 10 MG/2 ML (VALIUM) SYR IVP ONE (21:15)
[2020-12-30] MEDS ORDERED: cefTRIAXone 1,000 MG in WATER (STERILE) FOR INJECTION 10 ML IV ONE (21:30)
[2020-12-30 21:51] LABS: BILIRUBIN,URINE NEGATIVE (NEGATIVE); CLARITY,URINE CLEAR; COLOR,URINE YELLOW; GLUCOSE, URINE (UA) NEGATIVE (NEGATIVE); KETONES,URINE NEGATIVE (NEGATIVE); LEUKOCYTE ESTERASE ,URINE 2+ (NEGATIVE); NITRITE,URINE POSITIVE (NEGATIVE); PROTEIN,URINE NEGATIVE (NEGATIVE)
[2020-12-30 21:53] LABS: BACTERIA,URINE FEW /HPF; SQUAMOUS EPITHELIAL CELL,UR 0-2 /HPF
--- NOTE | 2020-12-30 23:07 | Diagnostic Imaging Report ---
EXAMINATION: Chest radiograph, portable AP view. DATE: 12/30/2020 10:57 PM INDICATION: 60-year-old male, seizure. COMPARISON: June 30, 2017. FINDINGS: Heart size and mediastinal contours are unchanged. There is no identified pneumothorax. There are streaky opacities in the left medial lung base. There are streaky opacities in the right medial lung base. This is very similar to the comparison study. There is no identified interval focal airspace consolidation. There is no identified sizable pleural effusion. IMPRESSION: No radiographically apparent interval acute cardiopulmonary abnormality. Streaky opacities in the lung bases appear fairly similar dating back to June 30, 2017. Dictated by: Dictated on workstation # [id number]
[2020-12-30 23:40] VITALS: BP 113/92
[2020-12-31] MEDS ORDERED: D5 1/2 NS W/KCL 20 MEQ/L 1,000 ML IV SCH (00:30)
[2020-12-31] MEDS ORDERED: DIAZEPAM INJ 10 MG/2 ML (VALIUM) SYR IV PRN (00:45)
[2020-12-31] MEDS ORDERED: D5 NS 1000 ML IV SOLUTION 1,000 ML IV SCH (01:00)
--- NOTE | 2020-12-31 04:04 | ED Neurological Problem ---
General Chief Complaint: Neurological Problems Stated Complaint: RECURRENT SEIZURES,HYPONATREMIA,UTI,TOUNGUE INJ Nursing Triage Note: PATIENT ARRIVED VIA EMS. STAFF AT [facility] REPORTED TO EMS THAT PATIENT HAD A SEIZURE AT 1730 AND AGAIN AT 1920. BOTH LASTING APPROX 30-45 SEC EACH. 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 STAFF MEMBER STATES HE HAS ABOUT 1 SEIZURE A MONTH, BUT HE HAS NEVER HAD SEIZURES THIS CLOSE TOGETHER PT HAS NOT VOMITED PT HAS CHRONIC INDWELLING SUPRAPUBIC CATHETER NO BOWEL INCONTINENCE WITH SEIZURE NO TONGUE INJURY FROM SEIZURE PT WAS STARTED ON AMOXIL ON 12/28/20 FOR A DENTAL INFECTION. NO FEVER OR OTHER RECENT ILLNESS, PER [facility] MEMBER. PT HAS NOT RECEIVED COVID-19 VACCINE. PCP: DR. CANALES Allergies and Home Medications Allergies Coded Allergies: lorazepam (Unverified Adverse Reaction, Intermediate, HYPERACTIVITY, 01/25/14) Patient Home Medication List Home Medication List Reviewed: Yes Acetaminophen (Acetaminophen) 500 Mg Tablet, 500 MG PO Q6H PRN for TEMPATURE OR MILD PAIN, (Reported) Entered as Reported by: HAROLDO STONE on 06/03/16 1413 Alprazolam (Alprazolam) 1 Mg Tablet, 1 MG PO DAILY PRN for PRIOR TO MEDICAL APPOINTMENTS, (Reported) Entered as Reported by: SREE MICHELLE on 07/01/17 0845 Aripiprazole (Aripiprazole) 5 Mg Tablet, 5 MG PO HS, (Reported) Entered as Reported by: HAROLDO STONE on 10/24/16 0820 Benztropine Mesylate (Benztropine Mesylate) 1 Mg Tablet, 1 MG PO BID, (Reported) Entered as Reported by: SREE MICHELLE on 07/01/17 0845 Bismuth Subsalicylate (Pepto-Bismol) 262 Mg/15 Ml Oral.susp, PO UD PRN for UPSET STOMACH/INDIGESTION, (Reported) Entered as Reported by: SREE MICHELLE on 07/01/17 08 Calamine/Zinc Oxide (Calamine Lotion) 177 Ml Lotion, TP UD PRN for RASH, (Reported) Entered as Reported by: SREE MICHELLE on 07/01/17 08 Cephalexin (Keflex) 500 Mg Capsule, 500 MG PO BID Prescribed by: GENE BENJAMIN on 09/29/18 1326 Divalproex Sodium (Divalproex Sodium) 500 Mg Tablet.dr, 500 MG PO BID, (Reported) Entered as Reported by: SREE MICHELLE on 07/01/17 08 Fluticasone Propionate (Fluticasone Propionate) 16 Gm [place].susp, 1 SPRAY NS BID, (Reported) Entered as Reported by: SREE MICHELLE on 07/01/17 08 Guaifenesin/D-Methorphan Hb/PE (Robitussin Cough-Cold Cf Liq) 118 Ml Liquid, PO UD PRN for COUGH/CONGESTION, (Reported) Entered as Reported by: SREE MICHELLE on 07/01/17 08 Hydrocodone/Acetaminophen (Lorcet 5-325 mg Tablet) 1 Each Tablet, 1-2 EACH PO Q4-6HR PRN for PAIN-MODERATE Prescribed by: GENE BENJAMIN on 09/29/18 1326 Hydrocortisone (Cortizone-10) 28 Gm Cream..g., TP UD PRN for RASH, ITCHING, (Reported) Entered as Reported by: SREE MICHELLE on 07/01/17 08 Ketoconazole (Ketoconazole) 120 Ml Shampoo, TP SuWe, (Reported) Entered as Reported by: SREE MICHELLE on 07/01/17 0845 L. Rhamnosus GG/Inulin (Culturelle Capsule) 1 Each Cap.sprink, 1 CAP PO DAILY PRN for HEALTHY BMS, (Reported) Entered as Reported by: SREE MICHELLE on 07/01/17 0845 Loratadine (Loratadine) 10 Mg Tablet, 10 MG PO HS, (Reported) Entered as Reported by: SREE MICHELLE on 07/01/17 0845 Menthol (Gold Rosario Medicated Foot) 113 Gm Powder, TP UD PRN for FOOT ODOR/WETNESS, (Reported) Entered as Reported by: SREE MICHELLE on 07/01/17 0852 Naphazoline HCl/Pheniramine (Opcon-A Eye Drops) 15 Ml Drops, 1-2 DROPS OU PRN PRN for REDNESS/SWELLING FROM ALLERGY, (Reported) Entered as Reported by: SREE MICHELLE on 07/01/17 0852 Neomycin Dinh/Bacitrac Zn/Poly (Gnp Triple Antibiotic Ointment) 28.4 Gm Oint...g., TP UD PRN for MINOR CUTS, SCRAPES, AND SORES, (Reported) Entered as Reported by: SREE MICHELLE on 07/01/17 0852 Nitrofurantoin Monohyd/M-Cryst (Macrobid 100 mg Capsule) 100 Mg Capsule, 1 TAB PO Q48H Prescribed by: SETH CANALES on 07/07/17 1229 Pnv with Ca,No.72/Iron/FA ( Plus Tablet) 1 Each Tablet, 1 TAB PO DAILY, (Reported) Entered as Reported by: SREE MICHELLE on 07/01/17 0845 Polyethylene Glycol 3350 (Polyethylene Glycol 3350) 17 Gm Powd.pack, 17 GM PO BID, (Reported) Entered as Reported by: IRASEMA HUMPHREY on 09/28/18 1428 Pregabalin (Lyrica) 25 Mg Capsule, 25 MG PO HS, (Reported) Entered as Reported by: GIDEON CALLOWAY on 10/25/15 2258 Pregabalin (Lyrica) 50 Mg Capsule, 50 MG PO DAILY, (Reported) Entered as Reported by: SREE MICHELLE on 07/01/17 0845 Sennosides/Docusate Sodium (Senexon-S Tablet) 1 Each Tablet, 2 TAB PO BID, (Reported) Entered as Reported by: SREE MICHELLE on 07/01/17 0845 Review of Systems Review of Systems Constitutional: No fever Ears, Nose, Mouth, Throat: see HPI Respiratory: No cough, No short of breath Gastrointestinal: No vomiting Genitourinary: see HPI Psychiatric/Neurological: See HPI, Tonic Clonic Seizures Past Ayxkqam-Qfjnpo-Jnkptm Hx Patient Social History Tobacco Use?: No Smoking Status: Never a Smoker Use of E-Cig and/or Vaping dev: No Substance use?: No Alcohol Use?: No Pt feels they are or have been: No Immunizations Up To Date Tetanus Booster (TDap): Less than 5yrs PED Vaccines UTD: No Influenza Vaccine Up-to-Date: No; Not Current Seasonal Allergies Seasonal Allergies: Yes Past Medical History Surgeries: Yes Gallbladder, Orthopedic Respiratory: No Cardiac: No Neurological: Yes Developmental Disorder, Seizure Disorder Sexually Transmitted Disease: No HIV/AIDS: No Genitourinary: Yes Prostate Problems, UTI-Chronic Gastrointestinal: Yes (S/P MATILDE) Chronic Constipation, Chronic Diarrhea, Gall Bladder Disease Musculoskeletal: Yes Fractures, Contracture Endocrine: No HEENT: No Loss of Vision: Denies Hearing Impairment: Denies Cancer: No Psychosocial: Yes (MR, SEVERE ADAPTIVE BEHAVIOR DISORDER, CONVULSIONS, DELUSIONAL DISORDER) Anxiety Integumentary: No Blood Disorders: Yes (ANEMIA) Adverse Reaction/Blood Tranf: No Family Medical History PAST SURGICAL HISTORY: -SURGERY ON ALL LEFT TOES -EGD'S/COLONSCOPIES -RIGHT FEMUR FX/ORIF -PROSTATE SURGERY ADDITIONAL PMH: -POST POLIO SYNDROME WITH LEFT SIDED CONTRACTURES, 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 1.0oz. 81.330222os; 25.46 BMI Method:Stated General Appearance: WD/WN, no apparent distress, other (PT AWAKE, LOOKING AROUND, BUT IS NOT TALKING OR FOLLOWING ANY COMMANDS ON ARRIVAL. ) HEENT: other (POOR DENTITION. ) Neck: normal inspection Respiratory: normal breath sounds, no respiratory distress, no accessory muscle use Cardiovascular: regular rate, rhythm, no murmur Gastrointestinal: soft Extremities: normal capillary refill, other (CONTRACTURES OF LEFT SIDE EXTREMITIES, WITH MILDER CONTRACTURES OF RIGHT HAND AND FOOT. ) Neurologic/Psychiatric: other (AWAKE AND LOOKING AROUND, BUT NOT TALKING OR FOLLOWING ANY COMMANDS) Skin: normal color, warm/dry Progress/Results/Core Measures Results/Orders Lab Results Laboratory Tests Test 12/30/20 20:21 Range/Units White Blood Count 8.2 4.3-11.0 10^3/uL Red Blood Count 4.00 L 4.30-5.52 10^6/uL Hemoglobin 12.7 L 13.3-17.7 g/dL Hematocrit 36 L 40-54 % Mean Corpuscular Volume 91 80-99 fL Mean Corpuscular Hemoglobin 32 25-34 pg Mean Corpuscular Hemoglobin Concent 35 32-36 g/dL Red Cell Distribution Width 12.2 10.0-14.5 % Platelet Count 243 130-400 10^3/uL Mean Platelet Volume 9.2 9.0-12.2 fL Immature Granulocyte % (Auto) 1 % Neutrophils (%) (Auto) 78 H 42-75 % Lymphocytes (%) (Auto) 12 12-44 % Monocytes (%) (Auto) 7 0-12 % Eosinophils (%) (Auto) 2 0-10 % Basophils (%) (Auto) 0 0-10 % Neutrophils # (Auto) 6.4 1.8-7.8 10^3/uL Lymphocytes # (Auto) 1.0 1.0-4.0 10^3/uL Monocytes # (Auto) 0.6 0.0-1.0 10^3/uL Eosinophils # (Auto) 0.1 0.0-0.3 10^3/uL Basophils # (Auto) 0.0 0.0-0.1 10^3/uL Immature Granulocyte # (Auto) 0.0 0.0-0.1 10^3/uL Sodium Level 120 *L 135-145 MMOL/L Potassium Level 4.1 3.6-5.0 MMOL/L Chloride Level 86 L 98-107 MMOL/L Carbon Dioxide Level 23 21-32 MMOL/L Anion Gap 11 5-14 MMOL/L Blood Urea Nitrogen 24 H 7-18 MG/DL Creatinine 0.76 0.60-1.30 MG/DL Estimat Glomerular Filtration Rate 105 BUN/Creatinine Ratio 32 Glucose Level 99 70-105 MG/DL Calcium Level 8.1 L 8.5-10.1 MG/DL Corrected Calcium 8.5 8.5-10.1 MG/DL Magnesium Level 1.5 L 1.6-2.4 MG/DL Total Bilirubin 1.0 0.1-1.0 MG/DL Aspartate Amino Transf (AST/SGOT) 49 H 5-34 U/L Alanine Aminotransferase (ALT/SGPT) 68 H 0-55 U/L Alkaline Phosphatase 187 H 40-136 U/L Total Creatine Kinase 238 H 30-200 U/L Myoglobin 878.4 H 10.0-92.0 NG/ML Total Protein 6.6 6.4-8.2 GM/DL Albumin 3.5 3.2-4.5 GM/DL Valproic Acid (Depakene) Level < 2.0 L 50.0-100.0 UG/ML My Orders Orders - TONYA BLOOD DO Ed Iv/Invasive Line Start (12/30/20 20:12) Monitor-Rhythm Ecg Trace Only (12/30/20 20:12) Cbc With Automated Diff (12/30/20 20:12) Comprehensive Metabolic Panel (12/30/20 20:12) Creatine Kinase (12/30/20 20:12) Magnesium (12/30/20 20:12) Ua Culture If Indicated (12/30/20 20:12) Myoglobin Serum (12/30/20 20:12) Ed Iv/Invasive Line Start (12/30/20 20:12) Lactated Ringers (Lr 1000 Ml Iv Solution (12/30/20 20:15) Valproic Acid (12/30/20 20:20) Ed Iv/Invasive Line Start (12/30/20 20:57) Ns Iv 1000 Ml (Sodium Chloride 0.9%) (12/30/20 21:00) Levetiracetam Injection (Keppra Injectio (12/30/20 21:15) Diazepam Injection (Valium Injection) (12/30/20 21:15) Levetiracetam Injection (Keppra Injectio (12/30/20 21:02) Diazepam Injection (Valium Injection) (12/30/20 21:02) Chest 1 View, Ap/Pa Only (12/30/20 21:12) Medications Given in ED Current Medications Medications Dose Ordered Sig/Ewelina Route Start Time Stop Time Status Last Admin Dose Admin Lactated Ringer's 1,000 ml @ 0 mls/hr Q0M ONCE IV 12/30/20 20:15 12/30/20 20:16 DC 12/30/20 21:10 999 MLS/HR Levetiracetam 500 mg STK-MED ONCE IV 12/30/20 21:02 12/30/20 21:05 DC 12/30/20 21:07 500 MG Vital Signs/I&O 12/30/20 12/30/20 20:07 20:15 Temp 36.2 36.4 Pulse 75 75 Resp 22 16 B/P (MAP) 134/84 (101) 125/82 Pulse Ox 98 98 O2 Delivery Room Air Blood Pressure Mean: 73 Progress Progress Note : Progress Note PT GIVEN IV FLUIDS 2100--PT HAD FULL TONIC-CLONIC SEIZURE LASTING 45 SECONDS, PT BIT TONGUE--MOSTLY ON RIGHT SIDE SEIZURE STOPPED ON IT'S OWN BEFORE VALIUM COULD BE GIVEN--PT HAS LORAZEPAM ALLERGY GIVEN KEPPRA NO FURTHER SEIZURE ACTIVITY DURING ER STAY NO HYPOXIA AT ANY TIME NO HYPOTENSION NO FEVER NO DYSPNEA NO TACHYCARDIA Diagnostic Imaging Comments CXR--PER RADIOLOGIST REPORT AT 2308 FINDINGS: Heart size and mediastinal contours are unchanged. There is no identified pneumothorax. There are streaky opacities in the left medial lung base. There are streaky opacities in the right medial lung base. This is very similar to the comparison study. There is no identified interval focal airspace consolidation. There is no identified sizable pleural effusion. IMPRESSION: No radiographically apparent interval acute cardiopulmonary abnormality. Streaky opacities in the lung bases appear fairly similar dating back to June 30, 2017. Reviewed: Reviewed by [place] Departure Communication (Admissions) 2112--SPOKE WITH DR. BURGOS, MANAGER EDITORIAL FOR DR. CANALES. ACCEPTS PT FOR ADMIT. ORDERS NOTED. 2122--CALLED TO GIVE REPORT TO E-ICU PHYSICIAN, THEY ARE WITH A PATIENT AT THIS TIME, THEY WILL CALL BACK. Impression Primary Impression: RECURRENT SEIZURES Additional Impressions: Hyponatremia UTI WITH SUPRAPUBIC CATHETER Tongue injury RECENT DENTAL INFECTION Developmental disability Post-polio syndrome NON-AMBULATORY Dehydration Hypomagnesemia Elevated CK Elevated myoglobin level Hypocalcemia Disposition: ADMITTED INPATIENT Condition: Stable Admissions Decision to Admit Reason: Admit from ER (General) Decision to Admit/Date: Dec 30, 2020 Time/Decision to Admit Time: 21:15 Departure-Patient Inst. Referrals: SETH CANALES DO (PCP) Primary Care Physician TONYA BLOOD DO Dec 31, 2020 04:03
[2020-12-31 04:59] LABS: BASOPHILS % (AUTO) 0 % (0-10); EOSINOPHILS % (AUTO) 0 % (0-10); HEMATOCRIT 35 % (40-54); HEMOGLOBIN 12.2 g/dL (13.3-17.7); LYMPHOCYTES # (AUTO) 1.4 10^3/uL (1.0-4.0); LYMPHOCYTES % (AUTO) 12 % (12-44); MEAN CORPUSCULAR HEMOGLOBIN 31 pg (25-34); MEAN CORPUSCULAR HGB CONC 35 g/dL (32-36); MEAN CORPUSCULAR VOLUME 91 fL (80-99); MEAN PLATELET VOLUME 9.5 fL (9.0-12.2); MONOCYTES # (AUTO) 0.9 10^3/uL (0.0-1.0); MONOCYTES % (AUTO) 8 % (0-12); NEUTROPHILS % (AUTO) 79 % (42-75); PLATELET COUNT 241 10^3/uL (130-400); WHITE BLOOD COUNT 11.4 10^3/uL (4.3-11.0)
[2020-12-31 05:15] LABS: ALBUMIN 3.2 GM/DL (3.2-4.5); POTASSIUM 4.3 MMOL/L (3.6-5.0)
[2020-12-31 05:16] LABS: CALCIUM 8.3 MG/DL (8.5-10.1)
[2020-12-31 05:20] LABS: PHOSPHORUS 3.4 MG/DL (2.3-4.7)
[2020-12-31 05:21] LABS: CREATININE SERUM 0.72 MG/DL (0.60-1.30)
[2020-12-31 05:24] LABS: MAGNESIUM 1.6 MG/DL (1.6-2.4)
[2020-12-31 05:34] LABS: CREATINE KINASE MB 8.4 NG/ML (<6.6)
[2020-12-31] MEDS ORDERED: KCL 20 MEQ TAB (K-DUR) PO SCH (06:00)
[2020-12-31] MEDS ORDERED: POTASSIUM CL 10MEQ/50ML IVPB 50 ML IV SCH (06:00)
[2020-12-31] MEDS ORDERED: MAGNESIUM 1 GM/100 ML IVPB 100 ML IV SCH (06:00)
[2020-12-31] MEDS ORDERED: LEVETIRACETAM 1,000 MG/NS 100 ML IVPB IV SCH ×2 (06:00)
[2020-12-31 06:02] LABS: BILIRUBIN,TOTAL 0.6 MG/DL (0.1-1.0)
[2020-12-31] MEDS ORDERED: FLU QUADRIvalent (3YOA+) 60 mcg/0.5 ml 2021-22(AFLURIA) IM ONE (07:15)
[2020-12-31] MEDS: MAGNESIUM 1 GM/100 ML IVPB 100 ML IV SCH ×2 (08:06→10:00)
--- NOTE | 2020-12-31 10:07 | Short Stay Summary ---
History of Present Illness History of Present Illness Reason for visit/HPI PT IS A 60 Y/O MALE OF DR. NOE'Lizz WHO WAS ADMITTED FOR SEIZURE ACTIVITY. PER STAFF REPORT, THE PT WAS TAKEN OFF OF DEPAKOTE ON 09/24/2019 DUE TO ELEVATED LIVER ENZYMES. HE HAS BEEN MAINTAINED ON LYRICA ONLY FOR THE PAST YEAR. THE STAFF MEMBER WHO RESPONDED TO PHONE CALLS THIS MORNING REPORTS HE DOES NOT KNOW IF JASPAL HAS BEEN SICK, BUT PER THE PATIENT, HE VOMITED AND THAT IS WHY HE END ED UP IN THE HOSPITAL. Date of Admission Dec 30, 2020 at 21:15 Date of Discharge 12/31/2020 Time Seen by Provider: 09:25 Attending Physician Seth Noe DO Admitting Physician TOBY BURGOS MD Consult Allergies and Home Medications Allergies Coded Allergies: lorazepam (Unverified Adverse Reaction, Intermediate, HYPERACTIVITY, 01/25/14) Patient Home Medication List Home Medication List Reviewed: Yes Acetaminophen (Acetaminophen) 500 Mg Tablet, 500 MG PO Q6H PRN for TEMPATURE OR MILD PAIN, (Reported) Entered as Reported by: HAROLDO STONE on 06/03/16 1413 Last Action: Reviewed Alprazolam (Alprazolam) 1 Mg Tablet, 1 MG PO DAILY PRN for PRIOR TO MEDICAL APPOINTMENTS, (Reported) Entered as Reported by: SREE MICHELLE on 07/01/1745 Last Action: Reviewed Bismuth Subsalicylate (Pepto-Bismol) 262 Mg/15 Ml Oral.susp, PO UD PRN for UPSET STOMACH/INDIGESTION, (Reported) Entered as Reported by: SREE MICHELLE on 07/01/17 0852 Last Action: Reviewed Calamine/Zinc Oxide (Calamine Lotion) 177 Ml Lotion, TP UD PRN for RASH, (Reported) Entered as Reported by: SREE MICHELLE on 07/01/1745 Last Action: Reviewed Citalopram Hydrobromide (Citalopram HBr) 40 Mg Tablet, 40 MG PO DAILY Prescribed by: TOBY BURGOS on 12/31/20 1015 Last Action: Reviewed Cranberry Extract (Cranberry) 425 Mg Capsule, 425 MG PO BID Prescribed by: TOBY BURGOS on 12/31/20 1015 Last Action: Reviewed Fluticasone Propionate (Fluticasone Propionate) 16 Gm Babb.susp, 1 SPRAY NS BID, (Reported) Entered as Reported by: SREE MICHELLE on 07/01/17844 Last Action: Reviewed Guaifenesin/D-Methorphan Hb/PE (Robitussin Cough-Cold Cf Liq) 118 Ml Liquid, PO UD PRN for COUGH/CONGESTION, (Reported) Entered as Reported by: SREE MICHELLE on 07/01/17851 Last Action: Reviewed Hydrocortisone (Cortizone-10) 28 Gm Cream..g., TP UD PRN for RASH, ITCHING, (Reported) Entered as Reported by: SREE MICHELLE on 07/01/17851 Last Action: Reviewed Ketoconazole (Ketoconazole) 120 Ml Shampoo, TP SuWe, (Reported) Entered as Reported by: SREE MICHELLE on 07/01/17844 Last Action: Reviewed L. Rhamnosus GG/Inulin (Culturelle Capsule) 1 Each Cap.sprink, 1 CAP PO DAILY PRN for HEALTHY BMS, (Reported) Entered as Reported by: SREE MICHELLE on 07/01/17844 Last Action: Reviewed Levetiracetam (Levetiracetam) 500 Mg Tablet, 500 MG PO BID Prescribed by: TOBY BURGOS on 12/31/20 1015 Last Action: Reviewed Loratadine (Loratadine) 10 Mg Tablet, 10 MG PO HS, (Reported) Entered as Reported by: SREE MICHELLE on 07/01/17844 Last Action: Reviewed Menthol (Gold Rosario Medicated Foot) 113 Gm Powder, TP UD PRN for FOOT OD OR/WETNESS, (Reported) Entered as Reported by: SREE MICHELLE on 07/01/17851 Last Action: Reviewed Mirtazapine (Mirtazapine) 15 Mg Tablet, 15 MG PO HS Prescribed by: TOBY BURGOS on 12/31/20 1015 Last Action: Reviewed Naphazoline HCl/Pheniramine (Opcon-A Eye Drops) 15 Ml Drops, 1-2 DROPS OU PRN PRN for REDNESS/SWELLING FROM ALLERGY, (Reported) Entered as Reported by: SREE MICHELLE on 07/01/17851 Last Action: Reviewed Neomycin Dinh/Bacitrac Zn/Poly (Gnp Triple Antibiotic Ointment) 28.4 Gm Oint...g., TP UD PRN for MINOR CUTS, SCRAPES, AND SORES, (Reported) Entered as Reported by: SREE MICHELLE on 07/01/17851 Last Action: Reviewed Pnv with Ca,No.72/Iron/FA ( Plus Tablet) 1 Each Tablet, 1 TAB PO DAILY, (Reported) Entered as Reported by: SREE MICHELLE on 07/01/17844 Last Action: Reviewed Polyethylene Glycol 3350 (Polyethylene Glycol 3350) 17 Gm Powd.pack, 17 GM PO BID, (Reported) Entered as Reported by: IRASEMA HUMPHREY on 09/28/18 1428 Last Action: Reviewed Pregabalin (Lyrica) 25 Mg Capsule, 25 MG PO HS, (Reported) Entered as Reported by: GIDEON CALLOWAY on 10/25/15 2113 Last Action: Reviewed Pregabalin (Lyrica) 50 Mg Capsule, 50 MG PO DAILY, (Reported) Entered as Reported by: SREE MICHELLE on 07/01/17844 Last Action: Reviewed Sennosides/Docusate Sodium (Senexon-S Tablet) 1 Each Tablet, 2 TAB PO BID, (Reported) Entered as Reported by: SREE MICHELLE on 07/01/17844 Last Action: Reviewed Discontinued Medications Aripiprazole (Aripiprazole) 5 Mg Tablet, 5 MG PO HS, (Reported) Entered as Reported by: HAROLDO STONE on 10/24/16 0820 Benztropine Mesylate (Benztropine Mesylate) 1 Mg Tablet, 1 MG PO BID, (Reported) Entered as Reported by: SREE MICHELLE on 07/01/17844 Cephalexin (Keflex) 500 Mg Capsule, 500 MG PO BID Prescribed by: GENE BENJAMIN on 09/29/18 1326 Divalproex Sodium (Divalproex Sodium) 500 Mg Tablet.dr, 500 MG PO BID, (Reported) Entered as Reported by: SREE MICHELLE on 07/01/17844 Hydrocodone/Acetaminophen (Lorcet 5-325 mg Tablet) 1 Each Tablet, 1-2 EACH PO Q4-6HR PRN for PAIN-MODERATE Prescribed by: GENE BENJAMIN on 09/29/18 1326 Nitrofurantoin Monohyd/M-Cryst (Macrobid 100 mg Capsule) 100 Mg Capsule, 1 TAB PO Q48H Prescribed by: SETH NOE on 07/07/17 1229 Past Gnoqbop-Dgwzhy-Jkejmk Hx Patient Social History Marrital Status: single Living Status: LIVES AT [facility] Employed/Student: unemployed Smoking Status: Never a Smoker 2nd Hand Smoke Exposure: No Recent Hopitalizations: No Have you traveled recently?: No Alcohol Use?: No Pt feels they are or have been: No Immunizations Up To Date Tetanus Booster (TDap): Less than 5yrs Pediatric: No Date of Pneumonia Vaccine: Jan 23, 2015 Date of Influenza Vaccine: Dec 08, 2017 Seasonal Allergies Seasonal Allergies: Yes Surgeries Yes Gallbladder, Orthopedic Respiratory No Cardiovascular No Neurological Yes Developmental Disorder, Seizure Disorder Reproductive System Sexually Transmitted Disease: No HIV/AIDS: No Genitourinary Yes Prostate Problems, UTI-Chronic Gastrointestinal Yes (S/P MATILDE) Chronic Constipation, Chronic Diarrhea, Gall Bladder Disease Musculoskeletal Yes Fractures, Contracture Endocrine History of Endocrine Disorders: No HEENT History of HEENT Disorders: No Loss of Vision: Denies Hearing Impairment: Denies Cancer No Psychosocial History of Psychiatric Problem: Yes (MR, SEVERE ADAPTIVE BEHAVIOR DISORDER, CONVULSIONS, DELUSIONAL DISORDER) Behavioral Health Disorders: Anxiety Integumentary History of Skin or Integumenta: No Blood Transfusions History of Blood Disorders: Yes (ANEMIA) Adverse Reaction to a Blood Tr: No Reviewed Nursing Assessment Reviewed/Agree w Nursing PMH: Yes Family Medical History Other Significan Family Hx: PAST SURGICAL HISTORY: -SURGERY ON ALL LEFT TOES -EGD'S/COLONSCOPIES -RIGHT FEMUR FX/ORIF -PROSTATE SURGERY ADDITIONAL PMH: -POST POLIO SYNDROME WITH LEFT SIDED CONTRACTURES, 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--PT IS NON-AMBULATORY -RIGHT FEMUR FX/ORIF WITH 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 OF HIP -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, MINIMAL VERBAL SKILLS -SEVERE ADAPTIVE BEHAVIOR DISORDER -DELUSIONAL DISORDER -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 Review of Systems Constitutional: No chills, No fever; weakness, other (DIFFICULT TO OBTAIN, REVIEWED CHART/ER, DISCUSSED WITH STAFF, PT IS UNABLE TO ANSWER QUESTIONS RELIABLY) EENTM: No throat pain Respiratory: No cough, No dyspnea on exertion, No short of breath Cardiovascular: No chest pain Gastrointestinal: No abdominal pain; nausea, vomiting (AT FACILITY PER PATIENT) Genitourinary: no symptoms reported Musculoskeletal: muscle weakness Psychiatric/Neurological: Pre-Existing Deficit, Seizure, Weakness Physical Exam Vital Signs Vital Signs - First Documented 12/30/20 12/30/20 20:07 23:40 Temp 36.2 Pulse 75 Resp 22 B/P (MAP) 134/84 (101) Pulse Ox 98 O2 Delivery Room Air O2 Flow Rate 2.00 Capillary Refill : Less Than 3 Seconds Height, Weight, BMI Height: 5'9.00" Weight: 180lbs. 1.0oz. 81.983036bn; 25.46 BMI Method:Stated General Appearance: No Apparent Distress (PT ATTEMPTING TO GET OUT OF HIS HOSPITAL BED, INSISTING HE WANTS TO LEAVE "I WANT TO GO HOME"), WD/WN HEENT: PERRL/EOMI Neck: Supple Respiratory: Chest Non Tender, Lungs Clear, Normal Breath Sounds, No Accessory Muscle Use, No Respiratory Distress Cardiovascular: Regular Rate, Rhythm, Normal Peripheral Pulses Gastrointestinal: Normal Bowel Sounds, Non Tender, Soft Rectal: Deferred Extremity: Other (ATROPHY OF ARMS, LEGS, HANDS) Neurologic/Psychiatric: Alert, Other (ORIENTED TO PERSON, NOT PLACE OR TIME) Skin: Warm/Dry Short Stay Diagnosis Discharge Diagnosis-Short Stay Admission Diagnosis: ACUTE SEIZURE ACTIVITY HYPONATREMIA CHRONIC SEIZURE DISORDER CHRONIC PHYSICAL AND MENTAL DEBILITY DEPRESSION CHRONICALLY ELEVATED LIVER ENZYMES Final Discharge Diagnosis: ACUTE SEIZURE ACTIVITY HYPONATREMIA CHRONIC SEIZURE DISORDER CHRONIC PHYSICAL AND MENTAL DEBILITY DEPRESSION Conclusion Labs Laboratory Tests 12/30/20 20:21: White Blood Count 8.2, Red Blood Count 4.00L, Hemoglobin 12.7L, Hematocrit 36L, Mean Corpuscular Volume 91, Mean Corpuscular Hemoglobin 32, Mean Corpuscular Hemoglobin Concent 35, Red Cell Distribution Width 12.2, Platelet Count 243, Mean Platelet Volume 9.2, Immature Granulocyte % (Auto) 1, Neutrophils (%) (Auto) 78H, Lymphocytes (%) (Auto) 12, Monocytes (%) (Auto) 7, Eosinophils (%) (Auto) 2, Basophils (%) (Auto) 0, Neutrophils # (Auto) 6.4, Lymphocytes # (Auto) 1.0, Monocytes # (Auto) 0.6, Eosinophils # (Auto) 0.1, Basophils # (Auto) 0.0, Immature Granulocyte # (Auto) 0.0, Sodium Level 120*L, Potassium Level 4.1, Chloride Level 86L, Carbon Dioxide Level 23, Anion Gap 11, Blood Urea Nitrogen 24H, Creatinine 0.76, Estimat Glomerular Filtration Rate 105, BUN/Creatinine Ratio 32, Glucose Level 99, Calcium Level 8.1L, Corrected Calcium 8.5, Magnesium Level 1.5L, Total Bilirubin 1.0, Aspartate Amino Transf (AST/SGOT) 49H, Alanine Aminotransferase (ALT/SGPT) 68H, Alkaline Phosphatase 187H, Total Creatine Kinase 238H, Myoglobin 878.4H, Total Protein 6.6, Albumin 3.5, Valproic Acid (Depakene) Level < 2.0L 12/30/20 21:25: Urine Color YELLOW, Urine Clarity CLEAR, Urine pH 6.0, Urine Specific [place] <=1.005, Urine Protein NEGATIVE, Urine Glucose (UA) NEGATIVE, Urine Ketones NEGATIVE, Urine Nitrite POSITIVEH, Urine Bilirubin NEGATIVE, Urine Urobilinogen 0.2, Urine Leukocyte Esterase 2+H, Urine RBC (Auto) 1+H, Urine RBC NONE, Urine WBC 10-25H, Urine Squamous Epithelial Cells 0-2, Urine Renal Epithelial Cells NONE, Urine Crystals NONE, Urine Bacteria FEWH, Urine Casts NONE, Urine Mucus NEGATIVE, Urine Culture Indicated YES 12/30/20 21:58: SARS-CoV-2 RNA (RT-PCR) Not Detected 12/31/20 04:20: White Blood Count 11.4H, Red Blood Count 3.88L, Hemoglobin 12.2L, Hematocrit 35L , Mean Corpuscular Volume 91, Mean Corpuscular Hemoglobin 31, Mean Corpuscular Hemoglobin Concent 35, Red Cell Distribution Width 12.2, Platelet Count 241, Mean Platelet Volume 9.5, Immature Granulocyte % (Auto) 1, Neutrophils (%) (Auto) 79H, Lymphocytes (%) (Auto) 12, Monocytes (%) (Auto) 8, Eosinophils (%) (Auto) 0, Basophils (%) (Auto) 0, Neutrophils # (Auto) 9.0H, Lymphocytes # (Auto) 1.4, Monocytes # (Auto) 0.9, Eosinophils # (Auto) 0.0, Basophils # (Auto) 0.0, Immature Granulocyte # (Auto) 0.1, Sodium Level 129L, Potassium Level 4.3, Chloride Level 97L, Carbon Dioxide Level 22, Anion Gap 10, Blood Urea Nitrogen 18, Creatinine 0.72, Estimat Glomerular Filtration Rate 112, BUN/Creatinine Ratio 25, Glucose Level 123H, Calcium Level 8.3L, Corrected Calcium 8.9, Magnesium Level 1.6, Total Bilirubin 0.6, Aspartate Amino Transf (AST/SGOT) 86H, Alanine Aminotransferase (ALT/SGPT) 96H, Alkaline Phosphatase 182H, Total Creatine Kinase 361H, Myoglobin 456.6H, Total Protein 6.0L, Albumin 3.2, Phosphorus Level 3.4, Creatine Kinase MB 8.4*H Conclusion/Plan ACUTE SEIZURE ACTIVITY HYPONATREMIA CHRONIC SEIZURE DISORDER CHRONIC PHYSICAL AND MENTAL DEBILITY DEPRESSION ACUTE SEIZURE ACTIVITY - PT HAS HISTORY OF SEIZURE ACTIVITY - HE WAS TAKEN OFF OF DEPAKOTE A YEAR AGO DUE TO ELEVATED LIVER ENZYMES. - PT ON LYRICA FOR SEIZURE TREATMENT - UNCERTAIN IF THIS WILL BE ENOUGH IN THE FUTURE - RESTART ANTI-SEIZURE MEDICATION - PT HAD SUCCESS WITH KEPPRA IN THE ER WITH CESSATION OF SEIZURES - WILL START KEPPRA 500MG TWICE DAILY, AND PT TO FOLLOW UP WITH DR. NOE FOR FURTHER MEDICATION ADJUSTMENTS ON DC. HYPONATREMIA - IMPROVED WITH FLUIDS - ADVISED POWERADE DAILY - REPEAT LABS PER DR. NOE NEXT WEEK CHRONIC PHYSICAL AND MENTAL DEBILITY WITH DEPRESSION - PT DISCHARGED BACK TO [facility] TOBY BURGOS MD Dec 31, 2020 10:07
[2020-12-31] MEDS ORDERED: CITA40TA11 PO (10:15)
[2020-12-31] MEDS ORDERED: CRAN425C2 PO (10:15)
[2020-12-31] MEDS ORDERED: LEVE500T6 PO (10:15)
[2020-12-31] MEDS ORDERED: MIRT-68 PO (10:15)
--- NOTE | 2020-12-31 10:18 | Discharge Inst-Simple/Standard ---
Discharge Inst-Standard Reconcile Patient Problems Problems Reviewed?: Yes Discharge Medications New, Converted or Re-Newed RX: Transmitted to Pharmacy ([facility] - [facility] RX SENT) Patient Instructions/Follow Up Plan of Care/Instructions/FU: POWERADE OR GATORADE 12 OUNCES TWICE DAILY [address] UP [address] [facility] Activity as Tolerated: Yes Discharge Diet: Regular Diet Health Concerns: ACUTE SEIZURE ACTIVITY HYPONATREMIA CHRONIC SEIZURE DISORDER CHRONIC PHYSICAL AND MENTAL DEBILITY DEPRESSION Return to The Hospital For: ANY CONCERN FOR RECURRENT SEIZURE ACTIVITY, OR OTHER LIFETHREATENING ILLNESS OR INJURY Medication List: Active Scripts Active Levetiracetam 500 Mg Tablet 500 Mg PO BID Mirtazapine 15 Mg Tablet 15 Mg PO HS Cranberry (Cranberry Extract) 425 Mg Capsule 425 Mg PO BID Citalopram HBr (Citalopram Hydrobromide) 40 Mg Tablet 40 Mg PO DAILY Reported Polyethylene Glycol 3350 17 Gm Powd.pack 17 Gm PO BID Robitussin Cough-Cold Cf Liq (Guaifenesin/D-Methorphan Hb/PE) 118 Ml Liquid PO UD PRN Pepto-Bismol (Bismuth Subsalicylate) 262 Mg/15 Ml Oral.susp PO UD PRN Opcon-A Eye Drops (Naphazoline HCl/Pheniramine) 15 Ml Drops 1-2 Drops OU PRN PRN Cortizone-10 (Hydrocortisone) 28 Gm Cream..g. TP UD PRN Gold Rosario Medicated Foot (Menthol) 113 Gm Powder TP UD PRN Gnp Triple Antibiotic Ointment (Neomycin Dinh/Bacitrac Zn/Poly) 28.4 Gm Oint...g. TP UD PRN Calamine Lotion (Calamine/Zinc Oxide) 177 Ml Lotion TP UD PRN Alprazolam 1 Mg Tablet 1 Mg PO DAILY PRN Lyrica (Pregabalin) 50 Mg Capsule 50 Mg PO DAILY Loratadine 10 Mg Tablet 10 Mg PO HS Ketoconazole 120 Ml Shampoo TP SUWE APPLY TO FACE TWICE PER WEEK, USE ON HEAD IF NEEDED Fluticasone Propionate 16 Gm Merrick.susp 1 Merrick NS BID Culturelle Capsule (L. Rhamnosus GG/Inulin) 1 Each Cap.sprink 1 Cap PO DAILY PRN Plus Tablet (Pnv with Ca,No.72/Iron/FA) 1 Each Tablet 1 Tab PO DAILY Senexon-S Tablet (Sennosides/Docusate Sodium) 1 Each Tablet 2 Tab PO BID Aripiprazole 10 Mg Tablet 10 Mg PO HS Acetaminophen 500 Mg Tablet 500 Mg PO Q6H PRN Lyrica (Pregabalin) 25 Mg Capsule 25 Mg PO HS Lab results: Laboratory Tests Test 12/30/20 20:21 12/30/20 21:25 12/30/20 21:58 12/31/20 04:20 Range/Units White Blood Count 8.2 11.4 H 4.3-11.0 10^3/uL Red Blood Count 4.00 L 3.88 L 4.30-5.52 10^6/uL Hemoglobin 12.7 L 12.2 L 13.3-17.7 g/dL Hematocrit 36 L 35 L 40-54 % Mean Corpuscular Volume 91 91 80-99 fL Mean Corpuscular Hemoglobin 32 31 25-34 pg Mean Corpuscular Hemoglobin Concent 35 35 32-36 g/dL Red Cell Distribution Width 12.2 12.2 10.0-14.5 % Platelet Count 243 241 130-400 10^3/uL Mean Platelet Volume 9.2 9.5 9.0-12.2 fL Immature Granulocyte % (Auto) 1 1 % Neutrophils (%) (Auto) 78 H 79 H 42-75 % Lymphocytes (%) (Auto) 12 12 12-44 % Monocytes (%) (Auto) 7 8 0-12 % Eosinophils (%) (Auto) 2 0 0-10 % Basophils (%) (Auto) 0 0 0-10 % Neutrophils # (Auto) 6.4 9.0 H 1.8-7.8 10^3/uL Lymphocytes # (Auto) 1.0 1.4 1.0-4.0 10^3/uL Monocytes # (Auto) 0.6 0.9 0.0-1.0 10^3/uL Eosinophils # (Auto) 0.1 0.0 0.0-0.3 10^3/uL Basophils # (Auto) 0.0 0.0 0.0-0.1 10^3/uL Immature Granulocyte # (Auto) 0.0 0.1 0.0-0.1 10^3/uL Sodium Level 120 *L 129 L 135-145 MMOL/L Potassium Level 4.1 4.3 3.6-5.0 MMOL/L Chloride Level 86 L 97 L 98-107 MMOL/L Carbon Dioxide Level 23 22 21-32 MMOL/L Anion Gap 11 10 5-14 MMOL/L Blood Urea Nitrogen 24 H 18 7-18 MG/DL Creatinine 0.76 0.72 0.60-1.30 MG/DL Estimat Glomerular Filtration Rate 105 112 BUN/Creatinine Ratio 32 25 Glucose Level 99 123 H 70-105 MG/DL Calcium Level 8.1 L 8.3 L 8.5-10.1 MG/DL Corrected Calcium 8.5 8.9 8.5-10.1 MG/DL Magnesium Level 1.5 L 1.6 1.6-2.4 MG/DL Total Bilirubin 1.0 0.6 0.1-1.0 MG/DL Aspartate Amino Transf (AST/SGOT) 49 H 86 H 5-34 U/L Alanine Aminotransferase (ALT/SGPT) 68 H 96 H 0-55 U/L Alkaline Phosphatase 187 H 182 H 40-136 U/L Total Creatine Kinase 238 H 361 H 30-200 U/L Myoglobin 878.4 H 456.6 H 10.0-92.0 NG/ML Total Protein 6.6 6.0 L 6.4-8.2 GM/DL Albumin 3.5 3.2 3.2-4.5 GM/DL Valproic Acid (Depakene) Level < 2.0 L 50.0-100.0 UG/ML Urine Color YELLOW Urine Clarity CLEAR Urine pH 6.0 5-9 Urine Specific [place] <=1.005 1.016-1.022 Urine Protein NEGATIVE NEGATIVE Urine Glucose (UA) NEGATIVE NEGATIVE Urine Ketones NEGATIVE NEGATIVE Urine Nitrite POSITIVE H NEGATIVE Urine Bilirubin NEGATIVE NEGATIVE Urine Urobilinogen 0.2 < = 1.0 MG/DL Urine Leukocyte Esterase 2+ H NEGATIVE Urine RBC (Auto) 1+ H NEGATIVE Urine RBC NONE /HPF Urine WBC 10-25 H /HPF Urine Squamous Epithelial Cells 0-2 /HPF Urine Renal Epithelial Cells NONE /HPF Urine Crystals NONE /LPF Urine Bacteria FEW H /HPF Urine Casts NONE /LPF Urine Mucus NEGATIVE /LPF Urine Culture Indicated YES SARS-CoV-2 RNA (RT-PCR) Not Detected Not Detecte Phosphorus Level 3.4 2.3-4.7 MG/DL Creatine Kinase MB 8.4 *H <6.6 NG/ML My orders: Orders - TOBY BURGOS MD Admission Order(Inpt,Obs,Sdc) (12/30/20 23:39) Code/Resuscitation (12/30/20:39) Ambulate 08,12,20 (12/30/20 23:39) Sequential Compression Device ONCE (12/30/20 23:39) Initiate Admission Nursing Pro .admission (12/30/20 23:39) Isolation Central Supply Req (12/30/20 23:39) Eicu: Use For Provider (12/30/20 23:39) Cbc With Automated Diff (12/31/20 05:00) Comprehensive Metabolic Panel (12/31/20 05:00) Magnesium (12/31/20 05:00) Phosphorus (12/31/20 05:00) Initiate Icu Iv E-Lyte Replace (12/30/20 05:00) Teleicu (12/30/20 23:39) Potassium Chloride (Tablet) (K Dur Table (12/31/20 06:00) Magnesium 1 Gm/100 Ml Ivpb (Magnesium Dinh (12/31/20 06:00) Potassium Cl 10meq/50ml Ivpb (Kcl 10 Meq (12/31/20 06:00) Mrsa Screen (Icu,Preop,Cath) (12/30/20 23:39) Mrsa Nursing Screening/Treatme .admit (12/30/20 23:39) Neurovascular Checks Q1HR (12/30/20 00:00) Nursing Communication (Order) (12/30/20 23:39) Oxygen-Administer 07,19 (12/30/20 23:39) Oxygen Delivery Set Up (12/30/20 23:39) Creatine Kinase (12/31/20 05:00) Creatine Kinase Mb (12/31/20 05:00) Myoglobin Serum (12/31/20 05:00) Seizure Precautions (12/30/20 23:39) Levetiracetam Injection (Keppra Injectio (12/31/20 06:00) Ceftriaxone (Rocephin) (12/31/20 21:00) Diazepam Injection (Valium Injection) (12/31/20 00:45) Magnesium 1 Gm/100 Ml Ivpb (Magnesium Dinh (12/31/20 07:30) General/Regular (12/31/20 Lunch) Attending Discharge Inpt/Inobs (12/31/20 10:08) TOBY BURGOS MD Dec 31, 2020 10:18
[2020-12-31] MEDS ORDERED: cefTRIAXone 1,000 MG/SWFI 10 ML IV PUSH IV SCH ×2 (21:00)
== END 2020-12-31 13:15 | disposition short-term general hospital (02) | DRG 101 ==
LOC: EDUNIT# 20:07 → ER 20:08 → ICU 21:15
PROVIDERS: ADMIT Family Medicine; ATTEND Family Medicine
DX: G40.909 Epilepsy, unspecified, not intractable, without status epilepticus (principal); E87.1 Hypo-osmolality and hyponatremia; F89 Unspecified disorder of psychological development; Z20.822 Contact with and (suspected) exposure to COVID-19; S09.93XA Unspecified injury of face, initial encounter; E83.42 Hypomagnesemia; E83.51 Hypocalcemia; F41.9 Anxiety disorder, unspecified; F79 Unspecified intellectual disabilities; R53.81 Other malaise; F32.A Depression, unspecified; Z79.899 Other long term (current) drug therapy
CPT/HCPCS: 36415; 71045; 80053; 80164; 81000; 82550; 82553; 83735; 83874; 84100; 85025; 87077; 87081; 87088; 87186; 87636; 93041

== ENCOUNTER 2021-04-23 11:52 | Emergency (ER) | payer MEDICARE, MEDICAID ==
[~2021-04-23] VITALS: Ht 175 cm; Wt 80.0 kg
[~2021-04-23 11:52] MED LIST changes: +CITA40TA13 PO; +CRAN425C2 PO; +LEVE500T6 PO; +MIRT-68 PO
--- NOTE | 2021-04-23 12:11 | ED Neurological Problem ---
General Stated Complaint: LETHARGIC/SEIZURE LIKE ACTIVITY Source: other ([facility] staff) Exam Limitations: physical impairment History of Present Illness Date Seen by Provider: Apr 23, 2021 Time Seen by Provider: 12:09 Initial Comments Patient is a 60-year-old male with a history of seizures, hypomagnesium, hyponatremia, frequent urinary tract infections, developmental disability, CP who presents ED by staff from [facility] for increased confusion, weakness and seizures. Increased seizures over the past 7 days. According to staff patient will not typically respond and start to stare during these seizures. Last episode right before arrival. Recently switched to Keppra 500 mg twice daily by his primary care physician Dr. Noe this past January. Noted sediment in his catheter bag. Decreased urine output. Recently recovered from Covid 2 weeks ago. Up-to-date on his Covid vaccine. No fever. Normal vital signs at the facility. Concerning for increased confusion and not responding to questions. Patient on arrival asking for candy. Denies of any current chest pain, shortness of breath, vomiting, diarrhea. Allergies and Home Medications Allergies Coded Allergies: lorazepam (Unverified Adverse Reaction, Intermediate, HYPERACTIVITY, 01/25/14) Patient Home Medication List Home Medication List Reviewed: Yes Acetaminophen (Acetaminophen) 500 Mg Tablet, 500 MG PO Q6H PRN for TEMPATURE OR MILD PAIN, (Reported) Entered as Reported by: HAROLDO STONE on 06/03/16 1413 Alprazolam (Alprazolam) 1 Mg Tablet, 1 MG PO DAILY PRN for PRIOR TO MEDICAL APPOINTMENTS, (Reported) Entered as Reported by: SREE MICHELLE on 07/01/17 0845 Bismuth Subsalicylate (Pepto-Bismol) 262 Mg/15 Ml Oral.susp, PO UD PRN for UPSET STOMACH/INDIGESTION, (Reported) Entered as Reported by: SREE MICHELLE on 07/01/17 0852 Calamine/Zinc Oxide (Calamine Lotion) 177 Ml Lotion, TP UD PRN for RASH, (Reported) Entered as Reported by: SREE MICHELEL on 07/01/17 0845 Cephalexin (Cephalexin) 500 Mg Tablet, 500 MG PO TID Prescribed by: LENA BARRIENTOS on 04/23/21 1525 Citalopram Hydrobromide (Citalopram HBr) 40 Mg Tablet, 40 MG PO DAILY Prescribed by: TOBY NIEVES on 12/31/20 101 Cranberry Extract (Cranberry) 425 Mg Capsule, 425 MG PO BID Prescribed by: TOBY NIEVES on 12/31/20 101 Fluticasone Propionate (Fluticasone Propionate) 16 Gm [place].susp, 1 SPRAY NS BID, (Reported) Entered as Reported by: SREE MICHELLE on 07/01/17 0845 Guaifenesin/D-Methorphan Hb/PE (Robitussin Cough-Cold Cf Liq) 118 Ml Liquid, PO UD PRN for COUGH/CONGESTION, (Reported) Entered as Reported by: SREE MICHELLE on 07/01/17 08 Hydrocortisone (Cortizone-10) 28 Gm Cream..g., TP UD PRN for RASH, ITCHING, (Reported) Entered as Reported by: SREE MICHELLE on 07/01/17 08 Ketoconazole (Ketoconazole) 120 Ml Shampoo, TP SuWe, (Reported) Entered as Reported by: SREE MICHELLE on 07/01/17844 L. Rhamnosus GG/Inulin (Culturelle Capsule) 1 Each Cap.sprink, 1 CAP PO DAILY PRN for HEALTHY BMS, (Reported) Entered as Reported by: SREE MICHELLE on 07/01/17 08 Levetiracetam (Levetiracetam) 500 Mg Tablet, 500 MG PO BID Prescribed by: TOBY NIEVES on 12/31/20 101 Levetiracetam (Keppra) 1,000 Mg Tablet, 1,000 MG PO BID Prescribed by: LENA BARRIENTOS on 04/23/21 1525 Loratadine (Loratadine) 10 Mg Tablet, 10 MG PO HS, (Reported) Entered as Reported by: SREE MICHELLE on 07/01/17 08 Menthol (Gold Rosario Medicated Foot) 113 Gm Powder, TP UD PRN for FOOT ODOR/WETNESS, (Reported) Entered as Reported by: SREE MICHELLE on 07/01/17 08 Mirtazapine (Mirtazapine) 15 Mg Tablet, 15 MG PO HS Prescribed by: TOBY NIEVES on 12/31/20 1015 Naphazoline HCl/Pheniramine (Opcon-A Eye Drops) 15 Ml Drops, 1-2 DROPS OU PRN PRN for REDNESS/SWELLING FROM ALLERGY, (Reported) Entered as Reported by: SREE MICHELLE on 07/01/17 0852 Neomycin Dinh/Bacitrac Zn/Poly (Gnp Triple Antibiotic Ointment) 28.4 Gm Oint...g., TP UD PRN for MINOR CUTS, SCRAPES, AND SORES, (Reported) Entered as Reported by: SREE MICHELLE on 07/01/17 0852 Pnv with Ca,No.72/Iron/FA ( Plus Tablet) 1 Each Tablet, 1 TAB PO DAILY, (Reported) Entered as Reported by: SREE MICHELLE on 07/01/17 0845 Polyethylene Glycol 3350 (Polyethylene Glycol 3350) 17 Gm Powd.pack, 17 GM PO BID, (Reported) Entered as Reported by: IRASEMA HUMPHREY on 09/28/18 1428 Pregabalin (Lyrica) 25 Mg Capsule, 25 MG PO HS, (Reported) Entered as Reported by: GIDEON CALLOWAY on 10/25/15 2258 Pregabalin (Lyrica) 50 Mg Capsule, 50 MG PO DAILY, (Reported) Entered as Reported by: SREE MICHELLE on 07/01/17 0845 Sennosides/Docusate Sodium (Senexon-S Tablet) 1 Each Tablet, 2 TAB PO BID, (Reported) Entered as Reported by: SREE MICHELLE on 07/01/17 0845 Review of Systems Review of Systems Constitutional: No chills, No fever; weakness Eyes: Denies Blindness, Denies Drainage, Denies Decreased Acuity, Denies Pain, Denies Photophobia Ears, Nose, Mouth, Throat: denies ear pain, denies nose discharge, denies throat swelling Respiratory: No cough, No short of breath Cardiovascular: No chest pain, No edema Gastrointestinal: No abdominal pain, No diarrhea, No nausea, No vomiting Genitourinary: No decreased output Musculoskeletal: No back pain, No joint pain Skin: No change in color, No change in hair/nails All Other Systems Reviewed Negative Unless Noted: Yes Past Mphzrqt-Afclxp-Hmyuav Hx Immunizations Up To Date Tetanus Booster (TDap): Less than 5yrs PED Vaccines UTD: No Seasonal Allergies Seasonal Allergies: Yes Past Medical History Surgeries: Yes Gallbladder, Orthopedic Respiratory: No Cardiac: No Neurological: Yes Developmental Disorder, Seizure Disorder Sexually Transmitted Disease: No HIV/AIDS: No Genitourinary: Yes Prostate Problems, UTI-Chronic Gastrointestinal: Yes (S/P MATILDE) Chronic Constipation, Chronic Diarrhea, Gall Bladder Disease Musculoskeletal: Yes Fractures, Contracture Endocrine: No HEENT: No Loss of Vision: Denies Hearing Impairment: Denies Cancer: No Psychosocial: Yes (MR, SEVERE ADAPTIVE BEHAVIOR DISORDER, CONVULSIONS, DELUSIONAL DISORDER) Anxiety Integumentary: No Blood Disorders: Yes (ANEMIA) Adverse Reaction/Blood Tranf: No Family Medical History PAST SURGICAL HISTORY: -SURGERY ON ALL LEFT TOES -EGD'S/COLONSCOPIES -RIGHT FEMUR FX/ORIF -PROSTATE SURGERY ADDITIONAL PMH: -POST POLIO SYNDROME WITH LEFT SIDED CONTRACTURES, 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 1.0oz. 81.947141lx; 25.46 BMI Method:Stated General Appearance: no apparent distress HEENT: PERRL/EOMI, normal ENT inspection, TMs normal Neck: non-tender, full range of motion Respiratory: chest non-tender, normal breath sounds Cardiovascular: regular rate, rhythm, no edema, no gallop Gastrointestinal: normal bowel sounds, non tender, soft, no organomegaly Back: normal inspection, no CVA tenderness Extremities: normal range of motion, non-tender, normal inspection Neurologic/Psychiatric: motor weakness (Lower extremity) Skin: normal color, warm/dry Progress/Results/Core Measures Results/Orders Lab Results Laboratory Tests Test 04/23/21 12:05 Range/Units White Blood Count 8.5 4.3-11.0 10^3/uL Red Blood Count 4.23 L 4.30-5.52 10^6/uL Hemoglobin 13.5 13.3-17.7 g/dL Hematocrit 39 L 40-54 % Mean Corpuscular Volume 92 80-99 fL Mean Corpuscular Hemoglobin 32 25-34 pg Mean Corpuscular Hemoglobin Concent 35 32-36 g/dL Red Cell Distribution Width 13.4 10.0-14.5 % Platelet Count 279 130-400 10^3/uL Mean Platelet Volume 10.1 9.0-12.2 fL Immature Granulocyte % (Auto) 0 % Neutrophils (%) (Auto) 72 42-75 % Lymphocytes (%) (Auto) 17 12-44 % Monocytes (%) (Auto) 11 0-12 % Eosinophils (%) (Auto) 0 0-10 % Basophils (%) (Auto) 0 0-10 % Neutrophils # (Auto) 6.1 1.8-7.8 10^3/uL Lymphocytes # (Auto) 1.5 1.0-4.0 10^3/uL Monocytes # (Auto) 0.9 0.0-1.0 10^3/uL Eosinophils # (Auto) 0.0 0.0-0.3 10^3/uL Basophils # (Auto) 0.0 0.0-0.1 10^3/uL Immature Granulocyte # (Auto) 0.0 0.0-0.1 10^3/uL Urine Color YELLOW Urine Clarity CLEAR Urine pH 7.0 5-9 Urine Specific [place] 1.010 L 1.016-1.022 Urine Protein NEGATIVE NEGATIVE Urine Glucose (UA) NEGATIVE NEGATIVE Urine Ketones NEGATIVE NEGATIVE Urine Nitrite NEGATIVE NEGATIVE Urine Bilirubin NEGATIVE NEGATIVE Urine Urobilinogen 0.2 < = 1.0 MG/DL Urine Leukocyte Esterase 3+ H NEGATIVE Urine RBC (Auto) TRACE-I H NEGATIVE Urine RBC NONE /HPF Urine WBC 25-50 H /HPF Urine Squamous Epithelial Cells RARE /HPF Urine Crystals NONE /LPF Urine Bacteria FEW H /HPF Urine Casts NONE /LPF Urine Mucus NEGATIVE /LPF Urine Yeast FEW H /HPF Urine Culture Indicated YES Sodium Level 133 L 135-145 MMOL/L Potassium Level 4.8 3.6-5.0 MMOL/L Chloride Level 100 98-107 MMOL/L Carbon Dioxide Level 22 21-32 MMOL/L Anion Gap 11 5-14 MMOL/L Blood Urea Nitrogen 25 H 7-18 MG/DL Creatinine 0.92 0.60-1.30 MG/DL Estimat Glomerular Filtration Rate 96 BUN/Creatinine Ratio 27 Glucose Level 102 70-105 MG/DL Calcium Level 8.9 8.5-10.1 MG/DL Corrected Calcium 9.1 8.5-10.1 MG/DL Magnesium Level 2.0 1.6-2.4 MG/DL Total Bilirubin 0.4 0.1-1.0 MG/DL Aspartate Amino Transf (AST/SGOT) 52 H 5-34 U/L Alanine Aminotransferase (ALT/SGPT) 71 H 0-55 U/L Alkaline Phosphatase 238 H 40-136 U/L Total Creatine Kinase 71 30-200 U/L Troponin I < 0.028 <0.028 NG/ML Total Protein 7.5 6.4-8.2 GM/DL Albumin 3.8 3.2-4.5 GM/DL Lipase 28 8-78 U/L My Orders Orders - FIFI WILKERSON Cbc With Automated Diff (04/23/21 12:11) Comprehensive Metabolic Panel (04/23/21 12:11) Lipase (04/23/21 12:11) Magnesium (04/23/21 12:11) Ekg Tracing (04/23/21 12:11) Troponin I Graves (04/23/21 12:11) Chest 1 View, Ap/Pa Only (04/23/21 12:11) Ct Head Wo (04/23/21 12:11) Levetiracetam Level (Keppra) (04/23/21 12:11) Creatine Kinase (04/23/21 12:11) Ua Culture If Indicated (04/23/21 12:11) Urine Culture (04/23/21 12:05) Ns Iv 500 Ml (Sodium Chloride 0.9%) (04/23/21 13:13) Ceftriaxone 1 Gm Pre-Mix (Rocephin 1 Gm (04/23/21 15:10) Levetiracetam Injection (Keppra Injectio (04/23/21 15:10) Vital Signs/I&O 04/23/21 11:56 Temp 36.3 Pulse 79 Resp 18 B/P (MAP) 119/77 (91) Pulse Ox 97 Comment Sinus rhythm, abnormal lateral Q waves, prolonged QT interval, 76 bpm, QRS duration 10 EMS, QTC 531 MS Departure Communication (Admissions) Increased seizures over the past 7 days. Recently switched from 500 mg twice daily to 750 mg twice daily. Patient was given dose of Keppra 500 mg here in the ED. Patient appears at his current baseline according to staff. Possible seizure right before arrival. Patient with indwelling catheter. Concerning for UTI. Replace catheter 11 days ago. Patient was given dose of Rocephin. Normal white blood count. Afebrile. Lab work was otherwise unremarkable besides hyponatremia 133. Was given 500 mill fluid. Recently recovered from Covid 2 weeks ago. Chest x-ray negative for pneumonia, pneumothorax. CT scan of the head unremarkable. Cardiac work-up unremarkable. Patient was observed here in the ED. No acute changes. Patient was wanting candy and the currently at his normal baseline according to staff. Will increase dose to 1000 mg twice daily after talking with Dr. Nieves on-call for Dr. NOE. Recommend discharge on Keflex and to follow-up with Dr. Kendall in the office. If any acute changes return back to ED for further evaluation peer Impression Primary Impression: Seizure Additional Impression: Cystitis Disposition: HOME, SELF-CARE Condition: Stable Departure-Patient Inst. Decision time for Depature: 15:24 Referrals: SETH NOE DO (PCP/Family) Primary Care Physician Patient Instructions: Urinary Tract Infection, Adult ED Scripts Levetiracetam (Keppra) 1,000 Mg Tablet 1000 MG PO BID, #30 TAB Prov: FIFI WILKERSON 04/23/21 Cephalexin (Cephalexin) 500 Mg Tablet 500 MG PO TID for 10 Days, #30 TAB Prov: FIFI WILKERSON 04/23/21 FIFI WILKERSON Apr 23, 2021 12:10
[2021-04-23 12:23] LABS: BASOPHILS % (AUTO) 0 % (0-10); EOSINOPHILS % (AUTO) 0 % (0-10); HEMATOCRIT 39 % (40-54); HEMOGLOBIN 13.5 g/dL (13.3-17.7); LYMPHOCYTES # (AUTO) 1.5 10^3/uL (1.0-4.0); LYMPHOCYTES % (AUTO) 17 % (12-44); MEAN CORPUSCULAR HEMOGLOBIN 32 pg (25-34); MEAN CORPUSCULAR HGB CONC 35 g/dL (32-36); MEAN CORPUSCULAR VOLUME 92 fL (80-99); MEAN PLATELET VOLUME 10.1 fL (9.0-12.2); MONOCYTES # (AUTO) 0.9 10^3/uL (0.0-1.0); MONOCYTES % (AUTO) 11 % (0-12); NEUTROPHILS # (AUTO) 6.1 10^3/uL (1.8-7.8); NEUTROPHILS % (AUTO) 72 % (42-75); PLATELET COUNT 279 10^3/uL (130-400); WHITE BLOOD COUNT 8.5 10^3/uL (4.3-11.0)
[2021-04-23 12:24] LABS: BILIRUBIN,URINE NEGATIVE (NEGATIVE); CLARITY,URINE CLEAR; COLOR,URINE YELLOW; GLUCOSE, URINE (UA) NEGATIVE (NEGATIVE); KETONES,URINE NEGATIVE (NEGATIVE); LEUKOCYTE ESTERASE ,URINE 3+ (NEGATIVE); NITRITE,URINE NEGATIVE (NEGATIVE); PROTEIN,URINE NEGATIVE (NEGATIVE)
[2021-04-23 12:31] LABS: BACTERIA,URINE FEW /HPF; SQUAMOUS EPITHELIAL CELL,UR RARE /HPF; WBC,URINE 25-50 /HPF; YEAST,URINE FEW /HPF
[2021-04-23 12:35] LABS: ALBUMIN 3.8 GM/DL (3.2-4.5); CHLORIDE 100 MMOL/L (98-107); POTASSIUM 4.8 MMOL/L (3.6-5.0); SODIUM 133 MMOL/L (135-145)
[2021-04-23 12:36] LABS: CALCIUM 8.9 MG/DL (8.5-10.1)
[2021-04-23 12:37] LABS: GLUCOSE 102 MG/DL (70-105)
[2021-04-23 12:38] LABS: TOTAL PROTEIN 7.5 GM/DL (6.4-8.2)
[2021-04-23 12:39] LABS: BILIRUBIN,TOTAL 0.4 MG/DL (0.1-1.0); CARBON DIOXIDE 22 MMOL/L (21-32)
[2021-04-23 12:41] LABS: ALKALINE PHOSPHATASE 238 U/L (40-136); CREATININE SERUM 0.92 MG/DL (0.60-1.30); GFR ESTIMATED 96
[2021-04-23 12:42] LABS: BUN/CREATININE RATIO 27
[2021-04-23 12:44] LABS: ALANINE AMINOTRANSFERASE 71 U/L (0-55)
--- NOTE | 2021-04-23 12:44 | Diagnostic Imaging Report ---
INDICATION: Chest pain and confusion. COMPARISON: 12/30/2020. TECHNIQUE: Single AP view of the chest is obtained. FINDINGS: Overall heart size and pulmonary vascularity are within normal limits. There is no pneumothorax or consolidation. No definite pleural fluid is seen. IMPRESSION: No acute abnormality or significant interval change. Dictated by: Dictated on workstation # [id number]
[2021-04-23 12:45] LABS: CREATINE KINASE 71 U/L (30-200); LIPASE 28 U/L (8-78)
[2021-04-23] MEDS ORDERED: NS IV 500 ML 500 ML IV STA (13:13)
--- NOTE | 2021-04-23 13:23 | Diagnostic Imaging Report ---
PROCEDURE: CT head without contrast. TECHNIQUE: Multiple contiguous axial images were obtained through the brain without the use of intravenous contrast. Auto Exposure Controls were utilized during the CT exam to meet ALARA standards for radiation dose reduction. INDICATION: Altered mental status. COMPARISON: CT head from 06/30/2017. FINDINGS: No intracranial hyperdense hemorrhage or space-occupying mass. No hydrocephalus or midline shift. Arana-white matter differentiation is well preserved. Mild prominence of the cerebral ventricles is unchanged. No acute calvarial abnormality. Mastoid air cells are clear. There is opacification of the left sphenoid sinus. IMPRESSION: 1. No acute intracranial process. 2. Left sphenoid sinus disease. Dictated by: Dictated on workstation # [id number]
[2021-04-23] MEDS ORDERED: cefTRIAXone 1 GM PRE-MIX 50 ML IV STA (15:10)
[2021-04-23] MEDS ORDERED: LEVE100015 PO (15:25)
[2021-04-23] MEDS ORDERED: CEPH500T PO (15:25)
[2021-04-23 16:30] VITALS: BP 104/72
== END 2021-04-23 16:30 | disposition home or self-care (01) ==
LOC: EDUNIT# 11:52 → ER 11:54
DX: G40.909 Epilepsy, unspecified, not intractable, without status epilepticus (principal); N30.90 Cystitis, unspecified without hematuria; F41.9 Anxiety disorder, unspecified; Z79.899 Other long term (current) drug therapy
CPT/HCPCS: 36415; 70450; 71045; 80053; 80177; 81000; 82550; 83690; 83735; 84484; 85025; 87077; 87088; 93005

== ENCOUNTER 2021-10-27 18:19 | Emergency (ER) | payer MEDICARE, MEDICAID ==
[~2021-10-27] VITALS: Ht 175.3 cm; Wt 78.9 kg
[~2021-10-27 18:19] MED LIST changes: -BETH50TA2 PO; +BETH50TA3 PO; +CEPH500T PO; +LEVE100015 PO; +[UNRECOGNIZED DRUG - CODE] TP; -[UNRECOGNIZED DRUG - CODE] TP
[2021-10-27 18:45] LABS: BASOPHILS % (AUTO) 0 % (0-10); EOSINOPHILS # (AUTO) 0.2 10^3/uL (0.0-0.3); EOSINOPHILS % (AUTO) 2 % (0-10); HEMATOCRIT 37 % (40-54); LYMPHOCYTES % (AUTO) 13 % (12-44); MEAN CORPUSCULAR HEMOGLOBIN 32 pg (25-34); MEAN CORPUSCULAR HGB CONC 33 g/dL (32-36); MEAN CORPUSCULAR VOLUME 98 fL (80-99); MEAN PLATELET VOLUME 10.1 fL (9.0-12.2); MONOCYTES # (AUTO) 0.3 10^3/uL (0.0-1.0); MONOCYTES % (AUTO) 4 % (0-12); NEUTROPHILS # (AUTO) 6.4 10^3/uL (1.8-7.8); NEUTROPHILS % (AUTO) 81 % (42-75); PLATELET COUNT 175 10^3/uL (130-400); WHITE BLOOD COUNT 7.9 10^3/uL (4.3-11.0)
[2021-10-27 18:52] LABS: ALBUMIN 3.6 GM/DL (3.2-4.5)
[2021-10-27 18:53] LABS: CALCIUM 8.9 MG/DL (8.5-10.1)
[2021-10-27 18:54] LABS: TOTAL PROTEIN 6.9 GM/DL (6.4-8.2)
[2021-10-27 18:56] LABS: BILIRUBIN,TOTAL 0.3 MG/DL (0.1-1.0)
[2021-10-27 18:58] LABS: CREATININE SERUM 0.9 MG/DL (0.60-1.30)
[2021-10-27] MEDS ORDERED: ACETAMINOPHEN 500 MG TAB (TYLENOL) PO ONE (19:15)
[2021-10-27] MEDS ORDERED: ASPIRIN 81 MG CHEW (CHILDREN'S ASA) PO ONE (19:15)
--- NOTE | 2021-10-27 19:16 | ED Neurological Problem ---
General Chief Complaint: Neurological Problems Stated Complaint: MULTIPLE SEIZURES/CHEST PAIN Source: patient Exam Limitations: no limitations History of Present Illness Date Seen by Provider: Oct 27, 2021 Time Seen by Provider: 19:00 Initial Comments Patient to the ER by private conveyance with his caregiver with chief complaint that today started having some increased focal seizures. He has a history of focal seizures previously on 2 g of Keppra daily. He was having slowed mentation, decreased mobility so they thought maybe his Keppra levels were too high and reduced him to 500 in the morning and 1000 mg of Keppra in the evening 2 weeks ago. Now today he is having troubles with shaking in his arm, eyes rol ling back. No grand mal seizures. No specific noticed postictal period. No fevers chills tachycardia. He has a suprapubic indwelling catheter. He is due to have his catheter changed tomorrow. Allergies and Home Medications Allergies Coded Allergies: lorazepam (Unverified Adverse Reaction, Intermediate, HYPERACTIVITY, 01/25/14) Patient Home Medication List Home Medication List Reviewed: Yes Acetaminophen (Acetaminophen) 500 Mg Tablet, 500 MG PO Q6H PRN for TEMPATURE OR MILD PAIN, (Reported) Entered as Reported by: HAROLDO STONE on 06/03/16 1413 Alprazolam (Alprazolam) 1 Mg Tablet, 1 MG PO DAILY PRN for PRIOR TO MEDICAL APPOINTMENTS, (Reported) Entered as Reported by: SREE MICHELLE on 07/01/17 0845 Bismuth Subsalicylate (Pepto-Bismol) 262 Mg/15 Ml Oral.susp, PO UD PRN for UPSET STOMACH/INDIGESTION, (Reported) Entered as Reported by: SREE MICHELLE on 07/01/17 0852 Calamine/Zinc Oxide (Calamine Lotion) 177 Ml Lotion, TP UD PRN for RASH, (Reported) Entered as Reported by: SREE MICHELLE on 07/01/17 0845 Cephalexin (Cephalexin) 500 Mg Tablet, 500 MG PO TID Prescribed by: LENA BARRIENTOS on 04/23/21 1525 Citalopram Hydrobromide (Citalopram HBr) 40 Mg Tablet, 40 MG PO DAILY Prescribed by: TOBY BURGOS on 12/31/20 1015 Cranberry Extract (Cranberry) 425 Mg Capsule, 425 MG PO BID Prescribed by: TOBY BURGOS on 12/31/20 1015 Fluticasone Propionate (Fluticasone Propionate) 16 Gm [place].susp, 1 SPRAY NS BID, (Reported) Entered as Reported by: SREE MICHELLE on 07/01/17 08 Guaifenesin/D-Methorphan Hb/PE (Robitussin Cough-Cold Cf Liq) 118 Ml Liquid, PO UD PRN for COUGH/CONGESTION, (Reported) Entered as Reported by: SREE MICHELLE on 07/01/17 08 Hydrocortisone (Cortizone-10) 28 Gm Cream..g., TP UD PRN for RASH, ITCHING, (Reported) Entered as Reported by: SREE MICHELLE on 07/01/17851 Ketoconazole (Ketoconazole) 120 Ml Shampoo, TP SuWe, (Reported) Entered as Reported by: SREE MICHELLE on 07/01/17844 L. Rhamnosus GG/Inulin (Culturelle Capsule) 1 Each Cap.sprink, 1 CAP PO DAILY PRN for HEALTHY BMS, (Reported) Entered as Reported by: SREE MICHELLE on 07/01/1745 Levetiracetam (Levetiracetam) 500 Mg Tablet, 500 MG PO BID Prescribed by: TOBY BURGOS on 12/31/20 101 Levetiracetam (Keppra) 1,000 Mg Tablet, 1,000 MG PO BID Prescribed by: LENA BARRIENTOS on 04/23/21 1525 Levetiracetam (Keppra) 250 Mg Tablet, 250 MG PO DAILY Prescribed by: OCHOA SABILLON on 10/27/21 2155 Loratadine (Loratadine) 10 Mg Tablet, 10 MG PO HS, (Reported) Entered as Reported by: SREE MICHELLE on 07/01/17844 Menthol (Gold Rosario Medicated Foot) 113 Gm Powder, TP UD PRN for FOOT ODOR/WETNESS, (Reported) Entered as Reported by: SREE MICHELLE on 07/01/17 08 Mirtazapine (Mirtazapine) 15 Mg Tablet, 15 MG PO HS Prescribed by: TOBY BURGOS on 12/31/20 1015 Naphazoline HCl/Pheniramine (Opcon-A Eye Drops) 15 Ml Drops, 1-2 DROPS OU PRN PRN for REDNESS/SWELLING FROM ALLERGY, (Reported) Entered as Reported by: SREE MICHELLE on 07/01/17 08 Neomycin Dinh/Bacitrac Zn/Poly (Gnp Triple Antibiotic Ointment) 28.4 Gm Oint...g., TP UD PRN for MINOR CUTS, SCRAPES, AND SORES, (Reported) Entered as Reported by: SREE MICHELLE on 07/01/17 08 Pnv with Ca,No.72/Iron/FA ( Plus Tablet) 1 Each Tablet, 1 TAB PO DAILY, (Reported) Entered as Reported by: SREE MICHELLE on 07/01/1745 Polyethylene Glycol 3350 (Polyethylene Glycol 3350) 17 Gm Powd.pack, 17 GM PO BID, (Reported) Entered as Reported by: IRASEMA HUMPHREY on 09/28/18 1428 Pregabalin (Lyrica) 25 Mg Capsule, 25 MG PO HS, (Reported) Entered as Reported by: GIDEON CALLOWAY on 10/25/15 2258 Pregabalin (Lyrica) 50 Mg Capsule, 50 MG PO DAILY, (Reported) Entered as Reported by: SREE MICHELLE on 07/01/17 0845 Sennosides/Docusate Sodium (Senexon-S Tablet) 1 Each Tablet, 2 TAB PO BID, ( Reported) Entered as Reported by: SREE MICHELLE on 07/01/1745 Review of Systems Review of Systems Constitutional: No chills, No diaphoresis Eyes: Denies Blindness, Denies Blurred Vision Ears, Nose, Mouth, Throat: denies ear pain, denies mouth pain Respiratory: No cough, No hemoptysis, No phlegm Cardiovascular: No chest pain, No Hx of Intervention, No palpitations Gastrointestinal: No abdominal pain, No constipation, No diarrhea, No nausea, No vomiting Genitourinary: No discharge, No dysuria Musculoskeletal: No back pain, No joint pain Skin: No pruritus, No rash All Other Systems Reviewed Negative Unless Noted: Yes Past Mtfpmyg-Tmochr-Qjycjl Hx Patient Social History Tobacco Use?: No Use of E-Cig and/or Vaping dev: No Substance use?: No Immunizations Up To Date Tetanus Booster (TDap): Less than 5yrs PED Vaccines UTD: No Seasonal Allergies Seasonal Allergies: Yes Past Medical History Surgeries: Yes Gallbladder, Orthopedic Respiratory: No Cardiac: No Neurological: Yes Developmental Disorder, Seizure Disorder Sexually Transmitted Disease: No HIV/AIDS: No Genitourinary: Yes Prostate Problems, UTI-Chronic Gastrointestinal: Yes (S/P MATILDE) Chronic Constipation, Chronic Diarrhea, Gall Bladder Disease Musculoskeletal: Yes Fractures, Contracture Endocrine: No HEENT: No Loss of Vision: Denies Hearing Impairment: Denies Cancer: No Psychosocial: Yes (MR, SEVERE ADAPTIVE BEHAVIOR DISORDER, CONVULSIONS, DELUSIONAL DISORDER) Anxiety Integumentary: No Blood Disorders: Yes (ANEMIA) Adverse Reaction/Blood Tranf: No Family Medical History PAST SURGICAL HISTORY: -SURGERY ON ALL LEFT TOES -EGD'S/COLONSCOPIES -RIGHT FEMUR FX/ORIF -PROSTATE SURGERY ADDITIONAL PMH: -POST POLIO SYNDROME WITH LEFT SIDED CONTRACTURES, 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 1.0oz. 81.713246zs; 26.00 BMI Method:Stated General Appearance: WD/WN, no apparent distress HEENT: PERRL/EOMI (Disconjugate gaze), pharynx normal (Tender anterior mandibular incisors without loose teeth. No mass.) Neck: full range of motion, supple Respiratory: chest non-tender, lungs clear, normal breath sounds, no respiratory distress, no accessory muscle use Cardiovascular: normal peripheral pulses, regular rate, rhythm, no edema Gastrointestinal: normal bowel sounds, non tender, soft Extremities: normal range of motion, non-tender, normal inspection, normal capillary refill Neurologic/Psychiatric: alert, normal mood/affect, oriented x 3 Crainal Nerves: normal hearing, normal speech, PERRL Skin: normal color, warm/dry Progress/Results/Core Measures Results/Orders Lab Results Laboratory Tests Test 10/27/21 18:33 10/27/21 19:38 Range/Units White Blood Count 7.9 4.3-11.0 10^3/uL Red Blood Count 3.74 L 4.30-5.52 10^6/uL Hemoglobin 12.0 L 13.3-17.7 g/dL Hematocrit 37 L 40-54 % Mean Corpuscular Volume 98 80-99 fL Mean Corpuscular Hemoglobin 32 25-34 pg Mean Corpuscular Hemoglobin Concent 33 32-36 g/dL Red Cell Distribution Width 14.1 10.0-14.5 % Platelet Count 175 130-400 10^3/uL Mean Platelet Volume 10.1 9.0-12.2 fL Immature Granulocyte % (Auto) 0 % Neutrophils (%) (Auto) 81 H 42-75 % Lymphocytes (%) (Auto) 13 12-44 % Monocytes (%) (Auto) 4 0-12 % Eosinophils (%) (Auto) 2 0-10 % Basophils (%) (Auto) 0 0-10 % Neutrophils # (Auto) 6.4 1.8-7.8 10^3/uL Lymphocytes # (Auto) 1.0 1.0-4.0 10^3/uL Monocytes # (Auto) 0.3 0.0-1.0 10^3/uL Eosinophils # (Auto) 0.2 0.0-0.3 10^3/uL Basophils # (Auto) 0.0 0.0-0.1 10^3/uL Immature Granulocyte # (Auto) 0.0 0.0-0.1 10^3/uL Sodium Level 135 135-145 MMOL/L Potassium Level 5.0 3.6-5.0 MMOL/L Chloride Level 103 98-107 MMOL/L Carbon Dioxide Level 21 21-32 MMOL/L Anion Gap 11 5-14 MMOL/L Blood Urea Nitrogen 31 H 7-18 MG/DL Creatinine 0.90 0.60-1.30 MG/DL Estimat Glomerular Filtration Rate 98 BUN/Creatinine Ratio 34 Glucose Level 115 H 70-105 MG/DL Calcium Level 8.9 8.5-10.1 MG/DL Corrected Calcium 9.2 8.5-10.1 MG/DL Magnesium Level 2.0 1.6-2.4 MG/DL Total Bilirubin 0.3 0.1-1.0 MG/DL Aspartate Amino Transf (AST/SGOT) 33 5-34 U/L Alanine Aminotransferase (ALT/SGPT) 60 H 0-55 U/L Alkaline Phosphatase 237 H 40-136 U/L Troponin I < 0.028 <0.028 NG/ML C-Reactive Protein High Sensitivity 0.54 H 0.00-0.50 MG/DL Total Protein 6.9 6.4-8.2 GM/DL Albumin 3.6 3.2-4.5 GM/DL Urine Color YELLOW Urine Clarity SL CLOUDY Urine pH 6.0 5-9 Urine Specific Addis <=1.005 1.016-1.022 Urine Protein NEGATIVE NEGATIVE Urine Glucose (UA) NEGATIVE NEGATIVE Urine Ketones NEGATIVE NEGATIVE Urine Nitrite POSITIVE H NEGATIVE Urine Bilirubin NEGATIVE NEGATIVE Urine Urobilinogen 0.2 < = 1.0 MG/DL Urine Leukocyte Esterase 3+ H NEGATIVE Urine RBC (Auto) TRACE-I H NEGATIVE Urine RBC NONE /HPF Urine WBC 10-25 H /HPF Urine Squamous Epithelial Cells NONE /HPF Urine Renal Epithelial Cells NONE /HPF Urine Crystals NONE /LPF Urine Bacteria LARGE H /HPF Urine Casts NONE /LPF Urine Mucus NEGATIVE /LPF Urine Culture Indicated YES My Orders Orders - OCHOA SABILLON Ekg Tracing (10/27/21 18:29) Cbc With Automated Diff (10/27/21 18:39) Comprehensive Metabolic Panel (10/27/21 18:39) Hs C Reactive Protein (10/27/21 18:39) Ua Culture If Indicated (10/27/21 19:10) Troponin I [place] (10/27/21 19:10) Magnesium (10/27/21 19:10) Acetaminophen Tablet (Tylenol Tablet) (10/27/21 19:15) Aspirin Chewable Tablet (Baby Aspirin Ch (10/27/21 19:15) Ct Head Wo (10/27/21 19:10) Chest 1 View, Ap/Pa Only (10/27/21 19:18) Urine Culture (10/27/21 19:38) Medications Given in ED Current Medications Medications Dose Ordered Sig/Ewelina Route Start Time Stop Time Status Last Admin Dose Admin Acetaminophen 1,000 mg ONCE ONCE PO 10/27/21 19:15 10/27/21 19:16 DC 10/27/21 19:37 1,000 MG Aspirin 324 mg ONCE ONCE PO 10/27/21 19:15 10/27/21 19:16 DC 10/27/21 19:37 324 MG Vital Signs/I&O 10/27/21 18:23 Temp 36.0 Pulse 71 Resp 18 B/P (MAP) 93/76 (82) Pulse Ox 95 Progress Progress Note #1: Time: 19:17 Progress Note Plan is to rule out superimposed infection as a cause of increased seizure-like activity versus the decrease in her dosage. He has had an indwelling suprapubic catheter due to be changed. He is has a septic vital signs. If his labs are okay then likely this is more medication related. If his labs are off then it may be better to start him on an antibiotic before making changes to his Keppra. Progress Note #2: Time: 21:48 Progress Note The patient is had no further focal seizures since I saw him. The patient probably is not having any infectious syndromes. We will culture his urine but is felt that this is commensals. Will increase his Keppra to 750 mg in the mo rning and at thousand at night. Follow-up in [address] Noe. Initial ECG Impression Date: Oct 27, 2021 Initial ECG Impression Time: 18:42 Initial ECG Rate: 70 Initial ECG Rhythm: Normal Sinus Initial ECG Intervals: Normal Initial ECG Impression: Normal, Nonspecific Changes Comment Normal sinus rhythm without clinically relevant ST elevation or depression. Small tremulous artifact noted. Diagnostic Imaging Diagonstic Imaging: Xray Plain Films/CT/US/NM/MRI: chest Comments [facility], [place] NAME: JASPAL DEL RIO [facility] REC#: [id number] PT STATUS: REG ER : 1960 PHYSICIAN: OCHOA SABILLON MD ADMIT DATE: 10/27/21/ER Signed Date of Exam:10/27/21 CHEST 1 VIEW, AP/PA ONLY EXAMINATION: Chest radiograph, portable AP view. DATE: 10/27/2021 8:17 PM INDICATION: 61-year-old male, seizure. COMPARISON: April 23, 2021. FINDINGS: There is a nodular opacity along the right mediastinal margin which appears similar to December 30, 2020. There is no identified pneumothorax. There is no large pleural effusion. There are streaky opacities in the left lung base. There are degenerative changes of the spine. IMPRESSION: Streaky opacities in the left lung base which may relate to atelectasis and/or infiltrate. Dictated by: Dictated on workstation # [id number] Dict: 10/27/212017 Trans: 10/27/212054 [facility] [id number] Interpreted by: ABDIEL RUIZ MD Electronically signed by: ABDIEL RUIZ MD 10/27/212054 Reviewed: Reviewed by Oh Diagonstic Imaging: CT Plain Films/CT/US/NM/MRI: head Comments [facility], [place] NAME: JASPAL DEL RIO [facility] REC#: [id number] PT STATUS: REG ER : 1960 PHYSICIAN: OCHOA SABILLON MD ADMIT DATE: 10/27/21/ER Signed Date of Exam:10/27/21 CT HEAD WO PROCEDURE: CT head without contrast. TECHNIQUE: Multiple contiguous axial images were obtained through the brain without the use of intravenous contrast. Auto Exposure Controls were utilized during the CT exam to meet ALARA standards for radiation dose reduction. DATE: October 27, 2021. COMPARISON: CT head April 23, 2021. INDICATION: 61-year-old male, seizure. FINDINGS: There is nonspecific opacification in the mastoid air cells, bilaterally, without destruction of mastoid air cell septa. This also opacification in the left middle ear. The frontal sinuses are hypoplastic, bilaterally. There is no identified skull fracture. There is disproportional prominence of the ventricles relative to additional CSF spaces. There is somewhat asymmetric prominence of the sulci on the left and asymmetric prominence of the left lateral ventricle relative to the right. There is no mass effect or midline shift. There is no acute intracranial hemorrhage. There is no abnormal extra-axial fluid collection. IMPRESSION: 1. No identified interval acute intracranial abnormality. 2. Nonspecific opacification in the bilateral mastoid air cells with additional nonspecific opacification in the left middle ear. 3. Cerebral volume loss. Dictated by: Dictated on workstation # [id number] Dict: 10/27/212026 Trans: 10/27/212055 [facility] [id number] Interpreted by: ABDIEL RUIZ MD Electronically signed by: ABDIEL RUIZ MD 10/27/212055 Reviewed: Reviewed by Me Departure Impression Primary Impression: Partial seizures Disposition: HOME, SELF-CARE Condition: Stable Departure-Patient Inst. Decision time for Depature: 21:53 Referrals: SETH NOE DO (PCP/Family) Primary Care Physician Patient Instructions: Epilepsy in Adults Add. Discharge Instructions: Take your Keppra 500 in the morning along with a 250 in the morning. Continue to take the 1 g of Keppra in the evening as scheduled. Plan to follow-up in the next 2 to 4 weeks with the primary care provider to see if symptoms are improving and he is tolerating the medication. Return to the ER for fevers, other worrisome symptoms. All discharge instructions reviewed with patient and/or family. Voiced understanding. Scripts Levetiracetam (Keppra) 250 Mg Tablet 250 MG PO DAILY for 30 Days, #30 TAB 0 Refills Prov: OCHOA SABILLON 10/27/21 Copy Copies To 1: SETH NOE TITUS J Oct 27, 2021 19:16
[2021-10-27 19:44] LABS: BILIRUBIN,URINE NEGATIVE (NEGATIVE); CLARITY,URINE SL CLOUDY; COLOR,URINE YELLOW; GLUCOSE, URINE (UA) NEGATIVE (NEGATIVE); KETONES,URINE NEGATIVE (NEGATIVE); LEUKOCYTE ESTERASE ,URINE 3+ (NEGATIVE); NITRITE,URINE POSITIVE (NEGATIVE); PROTEIN,URINE NEGATIVE (NEGATIVE)
[2021-10-27 19:51] LABS: BACTERIA,URINE LARGE /HPF
--- NOTE | 2021-10-27 20:28 | Diagnostic Imaging Report ---
EXAMINATION: Chest radiograph, portable AP view. DATE: 10/27/2021 8:17 PM INDICATION: 61-year-old male, seizure. COMPARISON: April 23, 2021. FINDINGS: There is a nodular opacity along the right mediastinal margin which appears similar to December 30, 2020. There is no identified pneumothorax. There is no large pleural effusion. There are streaky opacities in the left lung base. There are degenerative changes of the spine. IMPRESSION: Streaky opacities in the left lung base which may relate to atelectasis and/or infiltrate. Dictated by: Dictated on workstation # [id number]
--- NOTE | 2021-10-27 20:32 | Diagnostic Imaging Report ---
PROCEDURE: CT head without contrast. TECHNIQUE: Multiple contiguous axial images were obtained through the brain without the use of intravenous contrast. Auto Exposure Controls were utilized during the CT exam to meet ALARA standards for radiation dose reduction. DATE: October 27, 2021. COMPARISON: CT head April 23, 2021. INDICATION: 61-year-old male, seizure. FINDINGS: There is nonspecific opacification in the mastoid air cells, bilaterally, without destruction of mastoid air cell septa. This also opacification in the left middle ear. The frontal sinuses are hypoplastic, bilaterally. There is no identified skull fracture. There is disproportional prominence of the ventricles relative to additional CSF spaces. There is somewhat asymmetric prominence of the sulci on the left and asymmetric prominence of the left lateral ventricle relative to the right. There is no mass effect or midline shift. There is no acute intracranial hemorrhage. There is no abnormal extra-axial fluid collection. IMPRESSION: 1. No identified interval acute intracranial abnormality. 2. Nonspecific opacification in the bilateral mastoid air cells with additional nonspecific opacification in the left middle ear. 3. Cerebral volume loss. Dictated by: Dictated on workstation # [id number]
[2021-10-27] MEDS ORDERED: LEVE250T18 PO (21:55)
[2021-10-27 22:16] VITALS: BP 117/79
== END 2021-10-27 22:18 | disposition home or self-care (01) ==
LOC: EDUNIT# 18:19 → ER 18:21
DX: G40.909 Epilepsy, unspecified, not intractable, without status epilepticus (principal); Z28.310 Unvaccinated for COVID-19; Z79.899 Other long term (current) drug therapy
CPT/HCPCS: 36415; 70450; 71045; 80053; 81000; 83735; 84484; 85025; 86141; 87077; 87088; 93005

== ENCOUNTER 2021-11-12 05:38 | Outpatient (CLI) | payer MEDICARE, MEDICAID ==
[~2021-11-12] VITALS: Ht 175.3 cm; Wt 79.1 kg
[~2021-11-12 05:38] MED LIST changes: +LEVE250T18 PO
== END 2021-11-12 13:35 | disposition home or self-care (01) ==
LOC: PREOP 05:38
PROVIDERS: ATTEND Specialist
DX: Z01.818 Encounter for other preprocedural examination (principal)

== ENCOUNTER 2021-11-30 05:37 | Outpatient (CLI) | payer MEDICARE, MEDICAID ==
[~2021-11-30] VITALS: Ht 175.3 cm; Wt 79.1 kg
== END 2021-11-30 15:59 | disposition home or self-care (01) ==
LOC: PREOP 05:37
PROVIDERS: ATTEND Specialist
DX: Z01.818 Encounter for other preprocedural examination (principal)

== ENCOUNTER 2021-12-07 09:58 | Day surgery (SDC) | payer MEDICARE, MEDICAID ==
[2021-12-07] VITALS (9 sets, daily range): BP systolic 73–127; BP diastolic 46–81
[~2021-12-07] VITALS: Ht 175.3 cm; Wt 79.1 kg
[2021-12-07] MEDS ORDERED: MIDAZOLAM 2 MG/2 ML (VERSED) VIAL ONE (10:05)
[2021-12-07] MEDS ORDERED: TIMOLOL MALEATE 0.5% 5 ML (TIMOPTIC) BTL OU PRN (10:15)
[2021-12-07] MEDS ORDERED: MOXIFLOXACIN OPHTH SOLN 5 MG/ML 0.3 ML SYRINGE OP ONE (10:15)
[2021-12-07] MEDS ORDERED: POVIDONE (BETADINE) OPHTH SOLN 5% 30 ML OP ONE (10:15)
[2021-12-07] MEDS ORDERED: acetaZOLAMIDE ER 500 MG CAP (DIAMOX SEQUELS) PO ONE (10:15)
[2021-12-07] MEDS: TETRACAINE 0.5% OPHTH SOLN 4 ML BTL (SINGLE DOSE ONLY) OU PRN ×4 (10:22→10:42)
[2021-12-07] MEDS: TROPICAMIDE 1% OPH SOLN (MYDRIACYL) 15 ML BTL OP SCH ×3 (10:31→10:42)
[2021-12-07] MEDS: PHENYLEPHRINE 10% OPHTH (NEO-SYN) 5 ML BTL OU SCH ×3 (10:31→10:42)
[2021-12-07] MEDS ORDERED: proPOfol 200 MG/20 ML (DIPRIVAN) VIAL IV ONE (11:05)
[2021-12-07] MEDS ORDERED: SEVOFLURANE (ULTANE) 15 ML INHAL SOLN ONE (11:06)
--- NOTE | 2021-12-07 11:25 | Ophthalmologist Pre-Op Note ---
Pre-Operative Progress Note H&P Reviewed The H&P was reviewed, patient examined and no changes noted. Date H&P Reviewed: Dec 07, 2021 Time H&P Reviewed: 10:50 Pre-Op Dx Cataract, Left Eye FLEX WITT MD Dec 07, 2021 11:25
--- NOTE | 2021-12-07 11:26 | Ophthalmology Operative Report ---
Cataract removal/placement IOL PREOPERATIVE DIAGNOSIS: Cataract Left Eye POSTOPERATIVE DIAGNOSIS: Cataract Left Eye PROCEDURE: Cataract removal and placement of posterior chamber implant, left eye SURGEON: James Witt ANESTHESIA: Topical with sedation COMPLICATIONS: None ESTIMATED BLOOD LOSS: Minimal DESCRIPTION OF PROCEDURE: After proper informed consent was obtained, the patient, a 61 male, was taken to the Operating Room and the left eye was anesthetized with tetracaine. The left eye was then prepped and draped in the usual manner. A wire lid speculum was placed. A paracentesis was made at the left hand position. Preservative free lidocaine was injected into the anterior chamber followed by viscoelastic. A clear corneal incision was made in the temporal position. A capsulorrhexis was preformed and the central nuclear and cortical material were removed. The posterior capsule was polished and an Jn 13.0 AU00T0 was placed into the capsular bag. The residual viscoelastic was aspirated and balanced saline solution was injected into the anterior chamber. Moxifloxacin was injected into the anterior chamber. The wound was checked and found to be water tight. The patient tolerated the procedure well without complications. JAMES WITT MD Dec 07, 2021 11:26
--- NOTE | 2021-12-07 14:03 | Anesthesia-General Post-Op ---
MAC Patient Condition Mental Status/LOC: Same as Preop Cardiovascular: Satisfactory Nausea/Vomiting: Absent Respiratory: Satisfactory Pain: Controlled Complications: Absent Post Op Complications Complications None Follow Up Care/Instructions Patient Instructions None needed. Anesthesiology Discharge Order Discharge Order Patient is doing well, no complaints, stable vital signs, no apparent adverse anesthesia problems. No complications reported per nursing. INDU PETERSON CRNA Dec 07, 2021 14:03
== END 2021-12-07 13:10 | disposition home or self-care (01) ==
LOC: SDC 09:58
PROVIDERS: ATTEND Specialist
DX: H26.9 Unspecified cataract (principal)
CPT/HCPCS: 66984; V2632

== ENCOUNTER 2021-12-12 17:52 | Emergency (ER) | payer MEDICARE, MEDICAID ==
[~2021-12-12] VITALS: Ht 172 cm; Wt 79.3 kg
--- NOTE | 2021-12-12 18:12 | ED Neurological Problem ---
General Chief Complaint: Neurological Problems Stated Complaint: SEIZURE Nursing Triage Note: PT PRESENTS TO ED VIA EMS FROM [facility] WHERE HE HAD A WHITNESSED SEIZURE LASTING APROX 2 MIN. PT HAS HX OF SEIZURES BUT ACCORDING TO STAFF THEY USUALLY DONT LAST THAT LONG. PT HAS BLOOD AROUND MOUTH AND EMS REPORTS PT BIT HIS TONGUE DURRING THE SEIZURE. Source: patient Exam Limitations: no limitations (KWABENA RECINOS APRN) History of Present Illness Date Seen by Provider: Dec 12, 2021 Time Seen by Provider: 18:12 Initial Comments This is a 61 yo intellectually disabled adult who was brought to ER from home via [facility] for seizure lasting approximately 2 minutes. 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 He was noted to have bitten his tongue during seizure. He is on Keppra 500mg AM and 1000mg PM, has not had evening dose today. He does have indwelling catheter that is changed weekly. No recent illness, fever, cough. (KWABENA RECINOS APRN) Allergies and Home Medications Allergies Coded Allergies: lorazepam (Verified Adverse Reaction, Intermediate, HYPERACTIVITY, 12/07/21) Patient Home Medication List Home Medication List Reviewed: Yes (KWABENA RECINOS APRN) Acetaminophen (Acetaminophen) 500 Mg Tablet, 500 MG PO Q6H PRN for TEMPATURE OR MILD PAIN, (Reported) Entered as Reported by: HAROLDO STONE on 06/03/16 1413 Alprazolam (Alprazolam) 1 Mg Tablet, 1 MG PO DAILY PRN for PRIOR TO MEDICAL APPOINTMENTS, (Reported) Entered as Reported by: SREE MICHELLE on 07/01/17 0845 Bismuth Subsalicylate (Pepto-Bismol) 262 Mg/15 Ml Oral.susp, PO UD PRN for UPSET STOMACH/INDIGESTION, (Reported) Entered as Reported by: SREE MICHELLE on 07/01/17 0852 Calamine/Zinc Oxide (Calamine Lotion) 177 Ml Lotion, TP UD PRN for RASH, (Reported) Entered as Reported by: SREE MICHELLE on 07/01/17 0845 Cephalexin (Cephalexin) 500 Mg Tablet, 500 MG PO TID Prescribed by: LENA BARRIENTOS on 04/23/21 1525 Ciprofloxacin HCl (Ciprofloxacin HCl) 500 Mg Tablet, 500 MG PO BID Prescribed by: KWABENA RECINOS on 12/12/212010 Last Action: New Order Citalopram Hydrobromide (Citalopram HBr) 40 Mg Tablet, 40 MG PO DAILY Prescribed by: TOBY BURGOS on 12/31/20 1015 Cranberry Extract (Cranberry) 425 Mg Capsule, 425 MG PO BID Prescribed by: TOBY BURGOS on 12/31/20 1015 Fluticasone Propionate (Fluticasone Propionate) 16 Gm [place].susp, 1 SPRAY NS BID, (Reported) Entered as Reported by: SREE MICHELLE on 07/01/17 0845 Guaifenesin/D-Methorphan Hb/PE (Robitussin Cough-Cold Cf Liq) 118 Ml Liquid, PO UD PRN for COUGH/CONGESTION, (Reported) Entered as Reported by: SREE MICHELLE on 07/01/17 0852 Hydrocortisone (Cortizone-10) 28 Gm Cream..g., TP UD PRN for RASH, ITCHING, (Re ported) Entered as Reported by: SREE MICHELLE on 07/01/17 0852 Ketoconazole (Ketoconazole) 120 Ml Shampoo, TP SuWe, (Reported) Entered as Reported by: SREE MICHELLE on 07/01/17 0845 L. Rhamnosus GG/Inulin (Culturelle Capsule) 1 Each Cap.sprink, 1 CAP PO DAILY PRN for HEALTHY BMS, (Reported) Entered as Reported by: SREE MICHELLE on 07/01/17 0845 Levetiracetam (Levetiracetam) 500 Mg Tablet, 500 MG PO BID Prescribed by: TOBY BURGOS on 12/31/20 1015 Levetiracetam (Keppra) 1,000 Mg Tablet, 1,000 MG PO BID Prescribed by: LENA BARRIENTOS on 04/23/21 152 Levetiracetam (Keppra) 250 Mg Tablet, 250 MG PO DAILY Prescribed by: OCHOA SABILLON on 10/27/21 2155 Loratadine (Loratadine) 10 Mg Tablet, 10 MG PO HS, (Reported) Entered as Reported by: SREE MICHELLE on 07/01/17 0845 Menthol (Gold Rosario Medicated Foot) 113 Gm Powder, TP UD PRN for FOOT ODOR/WETNESS, (Reported) Entered as Reported by: SREE MICHELLE on 07/01/17 08 Mirtazapine (Mirtazapine) 15 Mg Tablet, 15 MG PO HS Prescribed by: TOBY BURGOS on 12/31/20 1015 Naphazoline HCl/Pheniramine (Opcon-A Eye Drops) 15 Ml Drops, 1-2 DROPS OU PRN PRN for REDNESS/SWELLING FROM ALLERGY, (Reported) Entered as Reported by: SREE MICHELLE on 07/01/17 08 Neomycin Dinh/Bacitrac Zn/Poly (Gnp Triple Antibiotic Ointment) 28.4 Gm Oint...g., TP UD PRN for MINOR CUTS, SCRAPES, AND SORES, (Reported) Entered as Reported by: SREE MICHELLE on 07/01/17851 Pnv with Ca,No.72/Iron/FA ( Plus Tablet) 1 Each Tablet, 1 TAB PO DAILY, (Reported) Entered as Reported by: SREE MICHELLE on 07/01/17844 Polyethylene Glycol 3350 (Polyethylene Glycol 3350) 17 Gm Powd.pack, 17 GM PO BID, (Reported) Entered as Reported by: IRASEMA HUMPHREY on 09/28/18 1428 Pregabalin (Lyrica) 25 Mg Capsule, 25 MG PO HS, (Reported) Entered as Reported by: GIDEON CALLOWAY on 10/25/15 2258 Pregabalin (Lyrica) 50 Mg Capsule, 50 MG PO DAILY, (Reported) Entered as Reported by: SREE MICHELLE on 07/01/17 0845 Sennosides/Docusate Sodium (Senexon-S Tablet) 1 Each Tablet, 2 TAB PO BID, (Reported) Entered as Reported by: SREE MICHELLE on 07/01/17 0845 Review of Systems Review of Systems Constitutional: see HPI (KWABENA RECINOS UTILITIES OPERATOR) Past Mggqywx-Jftxfq-Oeoamf Hx Patient Social History Tobacco Use?: No Substance use?: No Alcohol Use?: No Pt feels they are or have been: No (KWABENA RECINOS UTILITIES OPERATOR) Immunizations Up To Date Tetanus Booster (TDap): Less than 5yrs PED Vaccines UTD: No (KWABENA RECINOS APRN) Seasonal Allergies Seasonal Allergies: Yes (KWABENA RECINOS APRN) Past Medical History Surgery/Hospitalization HX: PMH: MOOD DISORDER, DEPRESSION, SLEEP DISORDER, SEIZURES, CHILDHOOD POLIO, FAROESE MEASLES, MR, CONSTIPATION Surgeries: Yes Gallbladder, Orthopedic Respiratory: No Currently Using CPAP: No Currently Using BIPAP: No Cardiac: No Neurological: Yes Developmental Disorder, Seizure Disorder Sexually Transmitted Disease: No HIV/AIDS: No Genitourinary: Yes Prostate Problems, UTI-Chronic Gastrointestinal: Yes (S/P MATILDE) Chronic Constipation, Chronic Diarrhea, Gall Bladder Disease Musculoskeletal: Yes Fractures, Contracture Endocrine: No HEENT: No Loss of Vision: Denies Hearing Impairment: Denies Cancer: No Psychosocial: Yes (MR, SEVERE ADAPTIVE BEHAVIOR DISORDER, CONVULSIONS, DELUSION AL DISORDER) Anxiety Integumentary: No Blood Disorders: Yes (ANEMIA) Adverse Reaction/Blood Tranf: No (KWABENA RECINOS APRN) Family Medical History PAST SURGICAL HISTORY: -SURGERY ON ALL LEFT TOES -EGD'S/COLONSCOPIES -RIGHT FEMUR FX/ORIF -PROSTATE SURGERY ADDITIONAL PMH: -POST POLIO SYNDROME WITH LEFT SIDED CONTRACTURES, 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--PT IS NON-AMBULATORY -RIGHT FEMUR FX/ORIF WITH 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 OF HIP -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, MINIMAL VERBAL SKILLS -SEVERE ADAPTIVE BEHAVIOR DISORDER -DELUSIONAL DISORDER -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 (KWABENA RECINOS APRN) Physical Exam Vital Signs Vital Signs - First Documented 12/12/21 12/12/21 17:54 20:14 Temp 35.4 Pulse 85 Resp 18 B/P (MAP) 119/82 (94) Pulse Ox 92 O2 Delivery Room Air (CARMEN PAVON MD) Vital Signs Capillary Refill : Less Than 3 Seconds (KWABENA RECINOS APRN) Height, Weight, BMI Height: 5'9.00" Weight: 180lbs. 1.0oz. 81.683761yd; 26.00 BMI Method:Stated General Appearance: no apparent distress HEENT: PERRL/EOMI (Disconjugate gaze); No normal ENT inspection (limited, unwilling to open mouth) Neck: full range of motion, normal inspection Respiratory: lungs clear, normal breath sounds, no respiratory distress Cardiovascular: regular rate, rhythm Gastrointestinal: soft Extremities: non-tender, normal inspection; No swelling Neurologic/Psychiatric: No oriented x 3 (non verbal ); depressed affect Motor/Sensory: other (chronic bilateral and lower extremity weakness ) Skin: normal color, warm/dry (KWABENA RECINOS APRN) Progress/Results/Core Measures Results/Orders Lab Results Laboratory Tests Test 12/12/21 18:03 12/12/21 18:24 Range/Units White Blood Count 9.6 4.3-11.0 10^3/uL Red Blood Count 4.02 L 4.30-5.52 10^6/uL Hemoglobin 13.0 L 13.3-17.7 g/dL Hematocrit 40 40-54 % Mean Corpuscular Volume 98 80-99 fL Mean Corpuscular Hemoglobin 32 25-34 pg Mean Corpuscular Hemoglobin Concent 33 32-36 g/dL Red Cell Distribution Width 14.1 10.0-14.5 % Platelet Count 143 130-400 10^3/uL Mean Platelet Volume 10.9 9.0-12.2 fL Immature Granulocyte % (Auto) 2 % Neutrophils (%) (Auto) 71 42-75 % Lymphocytes (%) (Auto) 21 12-44 % Monocytes (%) (Auto) 5 0-12 % Eosinophils (%) (Auto) 2 0-10 % Basophils (%) (Auto) 0 0-10 % Neutrophils # (Auto) 6.8 1.8-7.8 10^3/uL Lymphocytes # (Auto) 2.0 1.0-4.0 10^3/uL Monocytes # (Auto) 0.4 0.0-1.0 10^3/uL Eosinophils # (Auto) 0.2 0.0-0.3 10^3/uL Basophils # (Auto) 0.0 0.0-0.1 10^3/uL Immature Granulocyte # (Auto) 0.2 H 0.0-0.1 10^3/uL Percent Immature Platelet Fraction 5.6 0.0-7.6 % Sodium Level 139 135-145 MMOL/L Potassium Level 5.1 H 3.6-5.0 MMOL/L Chloride Level 111 H 98-107 MMOL/L Carbon Dioxide Level 20 L 21-32 MMOL/L Anion Gap 8 5-14 MMOL/L Blood Urea Nitrogen 36 H 7-18 MG/DL Creatinine 0.94 0.60-1.30 MG/DL Estimat Glomerular Filtration Rate 93 BUN/Creatinine Ratio 38 Glucose Level 146 H 70-105 MG/DL Calcium Level 8.8 8.5-10.1 MG/DL Corrected Calcium 9.0 8.5-10.1 MG/DL Magnesium Level 2.2 1.6-2.4 MG/DL Total Bilirubin 0.3 0.1-1.0 MG/DL Aspartate Amino Transf (AST/SGOT) 64 H 5-34 U/L Alanine Aminotransferase (ALT/SGPT) 82 H 0-55 U/L Alkaline Phosphatase 293 H 40-136 U/L Total Protein 7.2 6.4-8.2 GM/DL Albumin 3.7 3.2-4.5 GM/DL Urine Color YELLOW Urine Clarity SL CLOUDY Urine pH 6.0 5-9 Urine Specific [place] 1.015 L 1.016-1.022 Urine Protein NEGATIVE NEGATIVE Urine Glucose (UA) NEGATIVE NEGATIVE Urine Ketones NEGATIVE NEGATIVE Urine Nitrite NEGATIVE NEGATIVE Urine Bilirubin NEGATIVE NEGATIVE Urine Urobilinogen 0.2 < = 1.0 MG/DL Urine Leukocyte Esterase 2+ H NEGATIVE Urine RBC (Auto) 1+ H NEGATIVE Urine RBC NONE /HPF Urine WBC 5-10 H /HPF Urine Squamous Epithelial Cells 2-5 /HPF Urine Renal Epithelial Cells NONE /HPF Urine Crystals NONE /LPF Urine Bacteria LARGE H /HPF Urine Casts NONE /LPF Urine Mucus NEGATIVE /LPF Urine Culture Indicated YES Influenza Type A (RT-PCR) Not Detected Not Detecte Influenza Type B (RT-PCR) Not Detected Not Detecte SARS-CoV-2 RNA (RT-PCR) Not Detected Not Detecte (CARMEN PAVON MD) Micro Results Microbiology 12/12/21 Urine Culture - Preliminary, Resulted Slight Growth Present (CARMEN PAVON MD) Vital Signs/I&O 12/12/21 12/12/21 17:54 20:14 Temp 35.4 Pulse 85 77 Resp 18 20 B/P (MAP) 119/82 (94) 109/92 Pulse Ox 92 98 O2 Delivery Room Air (CARMEN PAVON MD) Blood Pressure Mean: 94 Progress Progress Note : Progress Note Patient examined, he is sleepy but at his baseline per staff at bedside. Has not had his evening dose of Keppra, given his recent seizure we will hold oral medications and give IV. His labs are at his baseline, UTI appreciated, his previous visit he was noted to have a urinary tract infection and had increased seizure activity. We will go ahead and give Rocephin IV and Rx medication to pharmacy. No additional seizures appreciated in emergency department. He does respond his baseline to verbal stimuli. Instructed staff to return to the emergency department if he has any additional seizures, any new or concerning symptoms. Verbalized understanding. (KWABENA RECINOS APRN) Diagnostic Imaging Diagonstic Imaging: Xray Plain Films/CT/US/NM/MRI: chest Comments [facility] [place] NAME: JASPLA DEL RIO [facility] REC#: [id number] PT STATUS: REG ER : 1960 PHYSICIAN: KWABENA RECINOS APRN ADMIT DATE: 12/12/21/ER Signed Date of Exam:12/12/21 CHEST 1 VIEW, AP/PA ONLY EXAMINATION: Chest 1 view. HISTORY: Seizure. COMPARISON: 10/27/2021. FINDINGS: The lungs are hyperinflated with scattered areas of scarring. There is no edema or pneumonia. No pleural effusion or pneumothorax. Heart size is normal. IMPRESSION: Hyperinflated lungs with scattered areas of scarring. No edema or pneumonia. Dictated by: Dictated on workstation # [id number] Dict: [id number] Trans: 12/12/211936 [facility] [id number] Interpreted by: YAMILEX CHAMPION MD Electronically signed by: YAMILEX CHAMPION MD 12/12/211936 (KWABENA RECINOS APRN) Departure Impression Primary Impression: UTI (urinary tract infection) Additional Impressions: Seizure Seizure disorder Disposition: 01 HOME, SELF-CARE Condition: Improved Departure-Patient Inst. Decision time for Depature: 20:07 (KWABENA RECINOS APRN) Referrals: SETH CANALES DO (PCP/Family) Primary Care Physician Patient Instructions: Seizures Add. Discharge Instructions: Plan: 1. Given Rocephin 1 g in the emergency department tonight, will send home with prescription for additional antibiotics for his urinary tract infection. We will culture his urine and if there is any need to change antibiotics you will be notified via telephone. 2. Continue to encourage plenty of fluids to stay hydrated. 3. He was given levetiracetam 1000 mg IV in the ER, hold his evening dose tonight. I recommend holding his evening medications tonight if he is still drowsy. 4. If he has persistent recurrent seizures he may need medication adjustment, contact his primary care provider. 5. Return to the ER if he has any new, concerning, worsening symptoms. 6. He did bite his tongue, unable to examine full extent of injury due to unwillingness to open his mouth however he has no active bleeding at time of discharge. You can encourage broths or salty drinks for comfort as he is unable to swish and spit salt water. All discharge instructions reviewed with patient and/or family. Voiced understanding. Scripts Ciprofloxacin HCl (Ciprofloxacin HCl) 500 Mg Tablet 500 MG PO BID for 7 Days, #14 TAB 0 Refills Prov: KWABENA RECINOS APRN 12/12/21 ATTENDING PHYSICIAN NOTE: I was physically present as attending physician in the emergency department during the care of this patient, but I was not directly involved in the decision making or delivery of care for this patient. (CARMEN PAVON MD) KWABENA RECINOS APRN Dec 12, 2021 18:12 CARMEN PAVON MD Dec 14, 2021 15:36
[2021-12-12 18:26] LABS: ALBUMIN 3.7 GM/DL (3.2-4.5)
[2021-12-12 18:27] LABS: POTASSIUM 5.1 MMOL/L (3.6-5.0)
[2021-12-12 18:28] LABS: CALCIUM 8.8 MG/DL (8.5-10.1)
[2021-12-12 18:29] LABS: TOTAL PROTEIN 7.2 GM/DL (6.4-8.2)
[2021-12-12 18:31] LABS: BILIRUBIN,TOTAL 0.3 MG/DL (0.1-1.0)
[2021-12-12 18:32] LABS: CREATININE SERUM 0.94 MG/DL (0.60-1.30)
[2021-12-12 18:32] LABS: BILIRUBIN,URINE NEGATIVE (NEGATIVE); CLARITY,URINE SL CLOUDY; COLOR,URINE YELLOW; GLUCOSE, URINE (UA) NEGATIVE (NEGATIVE); KETONES,URINE NEGATIVE (NEGATIVE); LEUKOCYTE ESTERASE ,URINE 2+ (NEGATIVE); NITRITE,URINE NEGATIVE (NEGATIVE); PROTEIN,URINE NEGATIVE (NEGATIVE)
[2021-12-12 18:34] LABS: BASOPHILS % (AUTO) 0 % (0-10); MEAN PLATELET VOLUME 10.9 fL (9.0-12.2)
[2021-12-12 18:35] LABS: MAGNESIUM 2.2 MG/DL (1.6-2.4)
[2021-12-12 18:36] LABS: EOSINOPHILS # (AUTO) 0.2 10^3/uL (0.0-0.3); EOSINOPHILS % (AUTO) 2 % (0-10); HEMATOCRIT 40 % (40-54); LYMPHOCYTES % (AUTO) 21 % (12-44); MEAN CORPUSCULAR HEMOGLOBIN 32 pg (25-34); MEAN CORPUSCULAR HGB CONC 33 g/dL (32-36); MEAN CORPUSCULAR VOLUME 98 fL (80-99); MONOCYTES # (AUTO) 0.4 10^3/uL (0.0-1.0); MONOCYTES % (AUTO) 5 % (0-12); NEUTROPHILS # (AUTO) 6.8 10^3/uL (1.8-7.8); NEUTROPHILS % (AUTO) 71 % (42-75); PLATELET COUNT 143 10^3/uL (130-400); WHITE BLOOD COUNT 9.6 10^3/uL (4.3-11.0)
[2021-12-12 18:43] LABS: BACTERIA,URINE LARGE /HPF
--- NOTE | 2021-12-12 18:48 | Diagnostic Imaging Report ---
EXAMINATION: Chest 1 view. HISTORY: Seizure. COMPARISON: 10/27/2021. FINDINGS: The lungs are hyperinflated with scattered areas of scarring. There is no edema or pneumonia. No pleural effusion or pneumothorax. Heart size is normal. IMPRESSION: Hyperinflated lungs with scattered areas of scarring. No edema or pneumonia. Dictated by: Dictated on workstation # [id number]
[2021-12-12] MEDS ORDERED: NS IV 500 ML 500 ML IV ONE (19:30)
[2021-12-12] MEDS ORDERED: cefTRIAXone 1 GM PRE-MIX 50 ML IV ONE (19:30)
[2021-12-12] MEDS ORDERED: CIPR500T5 PO (20:11)
[2021-12-12 20:14] VITALS: BP 109/92
== END 2021-12-12 20:27 | disposition home or self-care (01) ==
LOC: EDUNIT# 17:52 → ER 17:53
DX: G40.909 Epilepsy, unspecified, not intractable, without status epilepticus (principal); N39.0 Urinary tract infection, site not specified; Z79.899 Other long term (current) drug therapy; Z20.822 Contact with and (suspected) exposure to COVID-19
CPT/HCPCS: 36415; 71045; 80053; 81000; 83735; 85025; 87088; 87636

== ENCOUNTER 2021-12-14 13:17 | Outpatient (CLI) | payer MEDICARE, MEDICAID ==
[~2021-12-14 13:17] MED LIST changes: +CIPR500T5 PO
== END 2021-12-18 12:16 | disposition home or self-care (01) ==
LOC: PREOP 13:17
PROVIDERS: ATTEND Specialist
DX: Z01.818 Encounter for other preprocedural examination (principal)

== ENCOUNTER 2021-12-21 09:48 | Inpatient (IN) | payer MEDICARE, MEDICAID ==
[~2021-12-21] VITALS: Ht 175.2 cm; Wt 88.0 kg
[2021-12-21 10:09] LABS: BILIRUBIN,URINE NEGATIVE (NEGATIVE); CLARITY,URINE CLEAR; COLOR,URINE YELLOW; GLUCOSE, URINE (UA) NEGATIVE (NEGATIVE); KETONES,URINE NEGATIVE (NEGATIVE); LEUKOCYTE ESTERASE ,URINE 2+ (NEGATIVE); NITRITE,URINE NEGATIVE (NEGATIVE); PH,URINE 8.5 (5-9); PROTEIN,URINE NEGATIVE (NEGATIVE)
[2021-12-21] MEDS ORDERED: NS IV 1000 ML 1,000 ML IV STA ×2 (10:18→11:33)
[2021-12-21] MEDS ORDERED: ACETAMINOPHEN 650 MG SUPP (TYLENOL) PR STA (10:18)
[2021-12-21 10:21] LABS: BACTERIA,URINE FEW /HPF
--- NOTE | 2021-12-21 10:24 | ED General ---
General Chief Complaint: Fever-Adult/Adol Stated Complaint: CLOUDY URINE Source of Information: Jail Records Exam Limitations: Physical Impairments History of Present Illness Date Seen by Provider: Dec 21, 2021 Time Seen by Provider: 10:12 Initial Comments This is a 61-year-old male with a history of cerebral palsy from a local long term with a chief complaint of depressed mental status. He is normally up, conversant and interactive in his wheelchair, feeds himself and was last "normal" around dinnertime yesterday evening. Staff states that he was a little sleepier than normal but did fine. Reportedly he got up once in the night to vomit. When staff went in to check on him this morning he was quite somnolent, not following commands not really opening his eyes or moving around much. No reported falls or trauma. He does have a history of seizure disorder with frequent seizures. He is maintained on Keppra currently but is being transitioned to Depakote according to staff at the bedside. He started his Depakote earlier this week. No reported sick contacts at the facility. He is not normally maintained on oxygen at the facility. He does have suprapubic indwelling catheter. Patient is not able to participate in HPI, review of systems, etc. due to current clinical condition. No staff immediately available on arrival by EMS for further history. Allergies and Home Medications Allergies Coded Allergies: lorazepam (Verified Adverse Reaction, Intermediate, HYPERACTIVITY, 12/07/21) Patient Home Medication List Home Medication List Reviewed: Yes Acetaminophen (Acetaminophen) 500 Mg Tablet, 500 MG PO Q6H PRN for PAIN-MILD (1- 4) OR TEMPATURE, (Reported) Entered as Reported by: HAROLDO STONE on 06/03/16 1413 Last Action: Reviewed Aripiprazole (Aripiprazole) 10 Mg Tablet, 10 MG PO 1999, (Reported) Entered as Reported by: MAHENDRA SANTOS on 12/21/21 1542 Last Action: Continued Ascorbic Acid (Vitamin C) 500 Mg Tablet, 500 MG PO DAILY, (Reported) Entered as Reported by: MAHENDRA SANTOS on 12/21/21 154 Last Action: Reviewed Bismuth Subsalicylate (Pepto-Bismol) 262 Mg/15 Ml Oral.susp, PO UD PRN for UPSET STOMACH/INDIGESTION, (Reported) Entered as Reported by: SREE MICHELLE on 07/01/17851 Last Action: Reviewed Calamine/Zinc Oxide (Calamine Lotion) 177 Ml Lotion, TP UD PRN for RASH, (Reported) Entered as Reported by: SREE MICHELLE on 07/01/17844 Last Action: Reviewed Ciclopirox (Ciclopirox) 8 % Solution, 1 APPLIC TP 1999, (Reported) Entered as Reported by: MAHENDRA SANTOS on 12/21/211541 Last Action: Reviewed Citalopram Hydrobromide (Citalopram HBr) 40 Mg Tablet, 40 MG PO DAILY, (Reported) Entered as Reported by: MAHENDRA SANTOS on 12/21/211541 Last Action: Converted Cranberry Extract (Cranberry) 425 Mg Capsule, 425 MG PO BID, (Reported) Entered as Reported by: MAHENDRA SANTOS on 12/21/211541 Last Action: Reviewed Divalproex Sodium (Divalproex Sodium) 250 Mg Tablet.dr, 250 MG PO BID, (Reported) Entered as Reported by: MAHENDRA SANTOS on 12/21/211541 Last Action: Continued Fluticasone Propionate (Fluticasone Propionate) 16 Gm Boyds.susp, 1 SPRAY NS BID, (Reported) Entered as Reported by: SREE MICHELLE on 07/01/17844 Last Action: Continued Guaifenesin/D-Methorphan Hb/PE (Robitussin Cough-Cold Cf Liq) 118 Ml Liquid, PO UD PRN for COUGH/CONGESTION, (Reported) Entered as Reported by: SREE MICHELLE on 07/01/17851 Last Action: Reviewed Hydrocortisone (Hydrocortisone) 1 % Cream..g., 1 APPLIC TP UD PRN for RASH AND ITCHING, (Reported) Entered as Reported by: MAHENDRA SANTOS on 12/21/211541 Last Action: Reviewed Ketoconazole (Ketoconazole) 2 % Shampoo, 1 APPLIC TOP FRI,FRI, (Reported) Entered as Reported by: MAHENDRA SANTOS on 12/21/211541 Last Action: Reviewed L. Rhamnosus GG/Inulin (Culturelle Capsule) 10 Billion Cell-200 Mg Cap.sprink, 1 CAP PO DAILY, (Reported) Entered as Reported by: SREE MICHELLE on 07/01/17844 Last Action: Converted Levetiracetam (Levetiracetam) 1,000 Mg Tablet, 1,000 MG PO 1999, (Reported) Entered as Reported by: MAHENDRA SANTOS on 12/21/211541 Last Action: Continued Levetiracetam (Levetiracetam) 500 Mg Tablet, 500 MG PO DAILY, (Reported) Entered as Reported by: MAHENDRA SANTOS on 12/21/211541 Last Action: Continued Loratadine (Loratadine) 10 Mg Tablet, 10 MG PO 1999, (Reported) Entered as Reported by: SREE MICHELLE on 07/01/17844 Last Action: Reviewed Melatonin (Melatonin) 5 Mg Tablet, 5 MG PO 1999, (Reported) Entered as Reported by: MAHENDRA SANTOS on 12/21/211541 Last Action: Converted Menthol (Gold Rosario Medicated Body) 0.8 % Powder, 1 APPLIC TP UD PRN for FOOT ODOR AND WETNESS, (Reported) Entered as Reported by: MAHENDRA SANTOS on 12/21/211541 Last Action: Reviewed Metronidazole (Metronidazole) 0.75 % Lotion, 1 APPLIC TOP 1999, (Reported) Entered as Reported by: MAHENDRA SANTOS on 12/21/211541 Last Action: Reviewed Mirtazapine (Mirtazapine) 15 Mg Tablet, 15 MG PO 1999, (Reported) Entered as Reported by: MAHENDRA SANTOS on 12/21/211541 Last Action: Converted Naphazoline HCl/Pheniramine (Opcon-A Eye Drops) 0.81136 %-0.315 % Drops, 1-2 DROPS OU UD PRN for REDNESS/SWELLING FROM ALLERGY, (Reported) Entered as Reported by: SREE MICHELLE on 07/01/17851 Last Action: Reviewed Neomycin Dinh/Bacitrac Zn/Poly (Gnp Triple Antibiotic Ointment) 28.4 Gm Oint...g., TP UD PRN for MINOR CUTS, SCRAPES, AND SORES, (Reported) Entered as Reported by: SREE MICHELLE on 07/01/17851 Last Action: Reviewed Nystatin (Nystatin) 100,000 Unit/Gram Cream..g., 1 APPLIC TOP BID PRN for SCALING RASH, (Reported) Entered as Reported by: MAHENDRA SANTOS on 12/21/211541 Last Action: Reviewed Pnv with Ca,No.72/Iron/FA ( Plus Tablet) 27 Mg Iron-1 Mg Tablet, 1 EA PO DAILY, (Reported) Entered as Reported by: MAHENDRA SANTOS on 12/21/211541 Last Action: Reviewed Polyethylene Glycol 3350 (Polyethylene Glycol 3350) 17 Gm Powd.pack, 17 GM PO BID, (Reported) Entered as Reported by: IRASEMA HUMPHREY on 09/28/18 1428 Last Action: Reviewed Prednisolone Acetate (Prednisolone Acetate) 1 % Drops.susp, 1 DROP OS QID, (Reported) Entered as Reported by: MHAENDRA SANTOS on 12/21/211541 Last Action: Continued Pregabalin (Lyrica) 25 Mg Capsule, 25 MG PO HS, (Reported) Entered as Reported by: GIDEON CALLOWAY on 10/25/15 0637 Last Action: Continued Pregabalin (Lyrica) 50 Mg Capsule, 50 MG PO DAILY, (Reported) Entered as Reported by: SREE MICHELLE on 07/01/1745 Last Action: Continued Sennosides/Docusate Sodium (Stimulant Laxative Plus Tablet) 8.6 Mg-50 Mg Tablet, 2 EA PO BID, (Reported) Entered as Reported by: MAHENDRA SANTOS on 12/21/211541 Last Action: Continued Discontinued Medications Alprazolam (Alprazolam) 1 Mg Tablet, 1 MG PO DAILY PRN for PRIOR TO MEDICAL APPOINTMENTS, (Reported) Discontinued Reason: No Longer Taking Entered as Reported by: SREE MICHELLE on 07/01/1745 Last Action: Discontinued Cephalexin (Cephalexin) 500 Mg Tablet, 500 MG PO TID Discontinued Reason: No Longer Taking Prescribed by: LENA BARRIENTOS on 04/23/21 1525 Last Action: Discontinued Ciprofloxacin HCl (Ciprofloxacin HCl) 500 Mg Tablet, 500 MG PO BID Discontinued Reason: No Longer Taking Prescribed by: KWABENA RECINOS on 12/12/212010 Last Action: Discontinued Citalopram Hydrobromide (Citalopram HBr) 40 Mg Tablet, 40 MG PO DAILY Discontinued Reason: Duplicate Order Prescribed by: TOBY BURGOS on 12/31/20 1015 Last Action: Discontinued Cranberry Extract (Cranberry) 425 Mg Capsule, 425 MG PO BID Discontinued Reason: Duplicate Order Prescribed by: TOBY BURGOS on 12/31/20 101 Last Action: Discontinued Hydrocortisone (Cortizone-10) 28 Gm Cream..g., TP UD PRN for RASH, ITCHING, (Reported) Discontinued Reason: Duplicate Order Entered as Reported by: SREE MICHELLE on 07/01/17851 Last Action: Discontinued Ketoconazole (Ketoconazole) 120 Ml Shampoo, TP SuWe, (Reported) Discontinued Reason: Duplicate Order Entered as Reported by: SREE MICHELLE on 07/01/17844 Last Action: Discontinued Levetiracetam (Levetiracetam) 500 Mg Tablet, 500 MG PO BID Discontinued Reason: No Longer Taking Prescribed by: TOBY BURGOS on 12/31/20 101 Last Action: Discontinued Levetiracetam (Keppra) 1,000 Mg Tablet, 1,000 MG PO BID Discontinued Reason: No Longer Taking Prescribed by: LENA BARRIENTOS on 04/23/21 1525 Last Action: Discontinued Levetiracetam (Keppra) 250 Mg Tablet, 250 MG PO DAILY Discontinued Reason: No Longer Taking Prescribed by: OCHOA SABILLON on 10/27/21 215 Last Action: Discontinued Menthol (Gold Rosario Medicated Foot) 113 Gm Powder, TP UD PRN for FOOT ODOR/WETNESS, (Reported) Discontinued Reason: Duplicate Order Entered as Reported by: SREE MICHELLE on 07/01/17851 Last Action: Discontinued Mirtazapine (Mirtazapine) 15 Mg Tablet, 15 MG PO HS Discontinued Reason: Duplicate Order Prescribed by: TOBY BURGOS on 12/31/20 101 Last Action: Discontinued Pnv with Ca,No.72/Iron/FA ( Plus Tablet) 1 Each Tablet, 1 TAB PO DAILY, (Reported) Discontinued Reason: Duplicate Order Entered as Reported by: SREE MICHELLE on 07/01/17844 Last Action: Discontinued Sennosides/Docusate Sodium (Senexon-S Tablet) 1 Each Tablet, 2 TAB PO BID, (Reported) Discontinued Reason: Duplicate Order Entered as Reported by: SREE MICHELLE on 07/01/17844 Last Action: Discontinued Review of Systems Review of Systems Constitutional: see HPI Unable to obtain from patient due to clinical condition/underlying cognitive disability Past Qldiivw-Dlmaoy-Pooubl Hx Immunizations Up To Date Tetanus Booster (TDap): Less than 5yrs PED Vaccines UTD: No Seasonal Allergies Seasonal Allergies: Yes Past Medical History Surgery/Hospitalization HX: PMH: MOOD DISORDER, DEPRESSION, SLEEP DISORDER, SEIZURES, CHILDHOOD POLIO, ITALIAN MEASLES, MR, CONSTIPATION Surgeries: Yes Gallbladder, Orthopedic Respiratory: No Currently Using CPAP: No Currently Using BIPAP: No Cardiac: No Neurological: Yes Developmental Disorder, Seizure Disorder Sexually Transmitted Disease: No HIV/AIDS: No Genitourinary: Yes Prostate Problems, UTI-Chronic Gastrointestinal: Yes (S/P MATILDE) Chronic Constipation, Chronic Diarrhea, Gall Bladder Disease Musculoskeletal: Yes Fractures, Contracture Endocrine: No HEENT: No Loss of Vision: Denies Hearing Impairment: Denies Cancer: No Psychosocial: Yes (MR, SEVERE ADAPTIVE BEHAVIOR DISORDER, CONVULSIONS, DELUSIONAL DISORDER) Anxiety Integumentary: No Blood Disorders: Yes (ANEMIA) Adverse Reaction/Blood Tranf: No Family Medical History PAST SURGICAL HISTORY: -SURGERY ON ALL LEFT TOES -EGD'S/COLONSCOPIES -RIGHT FEMUR FX/ORIF -PROSTATE SURGERY ADDITIONAL PMH: -POST POLIO SYNDROME WITH LEFT SIDED CONTRACTURES, 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 1.0oz. 81.037639up; 26.00 BMI Method:Stated General Appearance: No Apparent Distress, Other (somnolent, responds to noxious stimuli - eyes closed) HEENT: Other (moist oral mucosa; dental plaques - no intraoral lesions) Neck: Normal Inspection Respiratory: Lungs Clear, Normal Breath Sounds, No Accessory Muscle Use, No Respiratory Distress, Other (Oxygen sats 91% on RA - no distress) Cardiovascular: Regular Rate, Rhythm, Normal Peripheral Pulses, Tachycardia Gastrointestinal: Normal Bowel Sounds, Non Tender, Soft, Other (suprapubic catheter in place) Rectal: Other (No perirectal mass, lesions, rashes) Back: Normal Inspection Extremity: Normal Inspection, Other (contractured hands and feet - edema bilateral feet) Neurologic/Psychiatric: Other (Grimaces to noxious stimuli; on oral examination he does try to push out the tongue depressor. Protect his airway. Slightly disconjugate gaze/roving gaze pupils approximately 3 mm and equal) Skin: Normal Color, Warm/Dry, Other (small patchy scattered areas to anterior abdominal wall -= erythematous, petechial - not raised) Focused Exam Lactate Level 12/21/21 10:05: Lactic Acid Level 0.73 Lactic Acid Level Laboratory Tests Test 12/21/21 10:05 Lactic Acid Level 0.73 MMOL/L (0.50-2.00) Progress/Results/Core Measures Suspected Sepsis Recent Fever Within 48 Hours: Yes Infection Criteria Present: Suspected New Infection New/Unexplained Altered Menta: Yes Within 3hrs of presentation: Admin fluids, Admin ABX, Blood cultures prior to ABX's, Lactate level SIRS Temperature: Pulse: Respiratory Rate: Laboratory Tests 12/21/21 10:05: White Blood Count 15.9H Blood Pressure / Mean: 12/21/21 10:05: Lactic Acid Level 0.73 Laboratory Tests 12/21/21 10:05: INR Comment 1.1, Platelet Count 170, Total Bilirubin 0.5 Results/Orders Lab Results Laboratory Tests Test 12/21/21 10:02 12/21/21 10:05 12/21/21 11:17 12/21/21 11:50 Range/Units Urine Color YELLOW Urine Clarity CLEAR Urine pH 8.5 5-9 Urine Specific [place] 1.010 L 1.016-1.022 Urine Protein NEGATIVE NEGATIVE Urine Glucose (UA) NEGATIVE NEGATIVE Urine Ketones NEGATIVE NEGATIVE Urine Nitrite NEGATIVE NEGATIVE Urine Bilirubin NEGATIVE NEGATIVE Urine Urobilinogen 0.2 < = 1.0 MG/DL Urine Leukocyte Esterase 2+ H NEGATIVE Urine RBC (Auto) 3+ H NEGATIVE Urine RBC 10-25 H /HPF Urine WBC 5-10 H /HPF Urine Crystals NONE /LPF Urine Bacteria FEW H /HPF Urine Casts NONE /LPF Urine Mucus NEGATIVE /LPF Urine Culture Indicated YES White Blood Count 15.9 H 4.3-11.0 10^3/uL Red Blood Count 3.42 L 4.30-5.52 10^6/uL Hemoglobin 11.1 L 13.3-17.7 g/dL Hematocrit 32 L 40-54 % Mean Corpuscular Volume 94 80-99 fL Mean Corpuscular Hemoglobin 33 25-34 pg Mean Corpuscular Hemoglobin Concent 35 32-36 g/dL Red Cell Distribution Width 14.0 10.0-14.5 % Platelet Count 170 130-400 10^3/uL Mean Platelet Volume 10.7 9.0-12.2 fL Immature Granulocyte % (Auto) 1 % Neutrophils (%) (Auto) 83 H 42-75 % Lymphocytes (%) (Auto) 9 L 12-44 % Monocytes (%) (Auto) 6 0-12 % Eosinophils (%) (Auto) 0 0-10 % Basophils (%) (Auto) 0 0-10 % Neutrophils # (Auto) 13.2 H 1.8-7.8 10^3/uL Lymphocytes # (Auto) 1.5 1.0-4.0 10^3/uL Monocytes # (Auto) 1.0 0.0-1.0 10^3/uL Eosinophils # (Auto) 0.1 0.0-0.3 10^3/uL Basophils # (Auto) 0.0 0.0-0.1 10^3/uL Immature Granulocyte # (Auto) 0.1 0.0-0.1 10^3/uL Neutrophils % (Manual) 81 % Lymphocytes % (Manual) 8 % Monocytes % (Manual) 6 % Band Neutrophils 5 % Blood Morphology Comment NORMAL Prothrombin Time 14.6 12.2-14.7 SEC INR Comment 1.1 0.8-1.4 Activated Partial Thromboplast Time 35 24-35 SEC Sodium Level 138 135-145 MMOL/L Potassium Level 6.0 H 3.6-5.0 MMOL/L Chloride Level 108 H 98-107 MMOL/L Carbon Dioxide Level 22 21-32 MMOL/L Anion Gap 8 5-14 MMOL/L Blood Urea Nitrogen 41 H 7-18 MG/DL Creatinine 1.30 0.60-1.30 MG/DL Estimat Glomerular Filtration Rate 63 BUN/Creatinine Ratio 32 Glucose Level 74 70-105 MG/DL Lactic Acid Level 0.73 0.50-2.00 MMOL/L Calcium Level 8.1 L 8.5-10.1 MG/DL Corrected Calcium 8.9 8.5-10.1 MG/DL Total Bilirubin 0.5 0.1-1.0 MG/DL Aspartate Amino Transf (AST/SGOT) 765 H 5-34 U/L Alanine Aminotransferase (ALT/SGPT) 685 H 0-55 U/L Alkaline Phosphatase 789 H 40-136 U/L C-Reactive Protein High Sensitivity 3.84 H 0.00-0.50 MG/DL Total Protein 6.1 L 6.4-8.2 GM/DL Albumin 3.0 L 3.2-4.5 GM/DL Lipase 175 H 8-78 U/L Procalcitonin 1.32 H <0.10 NG/ML Valproic Acid (Depakene) Level 8.6 L 50.0-100.0 UG/ML Influenza Type A (RT-PCR) Not Detected Not Detecte Influenza Type B (RT-PCR) Not Detected Not Detecte SARS-CoV-2 RNA (RT-PCR) Not Detected Not Detecte Ammonia 38 H 11-32 UMOL/L Blood Gas Puncture Site RW Blood Gas Patient Temperature 37.2 Arterial Blood pH 7.44 H 7.37-7.43 Arterial Blood Partial Pressure CO2 33 L 35-45 MMHG Arterial Blood Partial Pressure O2 119 H 79-93 MMHG Arterial Blood HCO3 22 L 23-27 MMOL/L Arterial Blood Total CO2 23.1 21.0-31.0 MMOL/L Arterial Blood Oxygen Saturation 97 94-100 % Arterial Blood Base Excess -1.5 -2.5-2.5 MMOL/L Blake Test NA Blood Gas Ventilator Setting NA Blood Gas Inspired Oxygen NA Micro Results Microbiology 12/21/21 Blood Culture - Preliminary, Resulted Gram Positive Cocci in Cluster 12/21/21 Blood Culture - Preliminary, Resulted No growth 12/21/21 Urine Culture - Final, Complete NO GROWTH My Orders Orders - DARNELL RODRIGUEZ MD Ua Culture If Indicated (12/21/21 09:52) Cbc With Automated Diff (12/21/21 10:18) Comprehensive Metabolic Panel (12/21/21 10:18) Blood Culture (12/21/21 10:18) Sputum Culture (12/21/21 10:18) Protime With Inr (12/21/21 10:18) Partial Thromboplastin Time (12/21/21 10:18) Chest 1 View, Ap/Pa Only (12/21/21 10:18) Ed Iv/Invasive Line Start (12/21/21 10:18) Ed Iv/Invasive Line Start (12/21/21 10:18) Vital Signs Adult Sepsis Patie Q15M (12/21/21 10:18) O2 (12/21/21 10:18) Remove Rings In Anticipation O (12/21/21 10:18) Lactic Acid Analyzer (12/21/21 10:18) Hs C Reactive Protein (12/21/21 10:18) Procalcitonin (Pct) (12/21/21 10:18) Covid 19 Inhouse Test (12/21/21 10:18) Influenza A And B By Pcr (12/21/21 10:18) Isolation Central Supply Req (12/21/21 10:18) Ns Iv 1000 Ml (Sodium Chloride 0.9%) (12/21/21 10:18) Acetaminophen Suppository (Tylenol Suppo (12/21/21 10:18) Urine Culture (12/21/21 10:02) Manual Differential (12/21/21 10:05) Lipase (12/21/21 11:07) Valproic Acid (12/21/21 11:07) Ammonia (12/21/21 11:12) Naloxone Injection (Narcan Injection) (12/21/21 11:30) Naloxone Injection (Narcan Injection) (12/21/21 11:30) Arterial Blood Gas (12/21/21 11:24) Naloxone Injection (Narcan Injection) (12/21/21 11:23) D50w (Emergency) Syringe (Dextrose 50% 5 (12/21/21 11:45) Insulin (Regular) Human (Novolin R (Per (12/21/21 11:45) Sodium Bicarbonate 8.4% Syr (Sodium Bica (12/21/21 11:45) Ns Iv 1000 Ml (Sodium Chloride 0.9%) (12/21/21 11:33) Medications Given in ED Vital Signs/I&O 12/21/21 12/21/21 12/21/21 09:55 10:45 10:45 Temp 38.1 38.2 Pulse 111 Resp 20 B/P (MAP) 101/65 (77) Pulse Ox 93 95 O2 Delivery Room Air Nasal Cannula O2 Flow Rate 2.00 Capillary Refill : Progress Note #1: Time: 11:26 Progress Note RE-eval patient - sats 89-91% on RA, added 2L pnc. He is still a little tachy - HR 106. LFT's through the roof - this, in lijght of recently starting depakote, raises suspicion for depakote toxicity. Narcan ordered and given x4mg. Will add 2nd liter of IVF and treat his hyperkalemia as well with standard dosing. ABG is ordered. Anticipate admission to ICU for monitoring. Will wait on ammonia level and discussion with admitting provider before ordering carnitine. Progress Note #2: Time: 12:20 Progress Note Discussed with Dr. Noe. We will start some broad-spectrum antibiotics, Zosy n. No specific etiology of the fever/source of infection. He has had prior cholecystectomy. His Depakote level is nontoxic. His ABG looks good. He is a little hyperkalemic, this has been treated. He has been given 2 L of IV fluids. Tylenol suppository has brought his temperature down. No ICU beds available at this time, I talked to the electrician helper powerhouse we will put him on cardiac stepdown for the moment with seizure precautions and transition to ICU for overnight once a bed becomes available. Dr. Noe states that she will see him within 1 to 2 hours. Diagnostic Imaging Diagonstic Imaging: Xray Plain Films/CT/US/NM/MRI: chest Comments [facility] [place], [place] NAME: JASPAL DEL RIO [facility] REC#: [id number] PT STATUS: REG ER : 1960 PHYSICIAN: DARNELL RODRIGUEZ MD ADMIT DATE: 12/21/21/ER Draft Date of Exam:12/21/21 CHEST 1 VIEW, AP/PA ONLY INDICATION: Fever and altered mental status. Frontal chest obtained at 11:07 a.m. compared to 12/12/2021 Heart is borderline in size. There is central vascular congestion. There is chronic appearing increased interstitial prominence. There is no focal infiltrate or pneumothorax or pleural fluid. IMPRESSION: Cardiomegaly and mild central vascular prominence with chronic appearing increased interstitial markings. No acute consolidation or pleural fluid. Dictated on workstation # [id number] Dict: 12/21/21 1111 Trans: 12/21/21 1113 [id number] Interpreted by: HÉCTOR ANTUNEZ MD Electronically signed by: Departure Communication (Admissions) Time/Spoke to Admitting Phy: 11:[address] Noe; I will do bridge orders Impression Primary Impression: Altered mental status Qualified Codes: R40.0 - Somnolence Additional Impressions: Fever Qualified Codes: R50.9 - Fever, unspecified Transaminitis Pancreatitis Qualified Codes: K85.90 - Acute pancreatitis without necrosis or infection, unspecified Seizure disorder Disposition: ADMITTED INPATIENT Condition: Stable Admissions Decision to Admit Reason: Admit from ER (General) Decision to Admit/Date: Dec 21, 2021 Time/Decision to Admit Time: 11:01 Departure-Patient Inst. Referrals: SETH NOE DO (PCP/Family) Primary Care Physician DARNELL RODRIGUEZ MD Dec 21, 2021 10:24
[2021-12-21 10:28] LABS: BASOPHILS % (AUTO) 0 % (0-10); EOSINOPHILS # (AUTO) 0.1 10^3/uL (0.0-0.3); EOSINOPHILS % (AUTO) 0 % (0-10); HEMATOCRIT 32 % (40-54); HEMOGLOBIN 11.1 g/dL (13.3-17.7); LYMPHOCYTES # (AUTO) 1.5 10^3/uL (1.0-4.0); LYMPHOCYTES % (AUTO) 9 % (12-44); MEAN CORPUSCULAR HEMOGLOBIN 33 pg (25-34); MEAN CORPUSCULAR HGB CONC 35 g/dL (32-36); MEAN CORPUSCULAR VOLUME 94 fL (80-99); MEAN PLATELET VOLUME 10.7 fL (9.0-12.2); MONOCYTES % (AUTO) 6 % (0-12); NEUTROPHILS # (AUTO) 13.2 10^3/uL (1.8-7.8); NEUTROPHILS % (AUTO) 83 % (42-75); PLATELET COUNT 170 10^3/uL (130-400); WHITE BLOOD COUNT 15.9 10^3/uL (4.3-11.0)
[2021-12-21 10:33] LABS: INR 1.1 (0.8-1.4); PROTHROMBIN TIME PATIENT 14.6 SEC (12.2-14.7)
[2021-12-21 10:34] LABS: CALCIUM 8.1 MG/DL (8.5-10.1)
[2021-12-21 10:35] LABS: TOTAL PROTEIN 6.1 GM/DL (6.4-8.2)
[2021-12-21 10:37] LABS: BILIRUBIN,TOTAL 0.5 MG/DL (0.1-1.0)
[2021-12-21 10:39] LABS: CREATININE SERUM 1.3 MG/DL (0.60-1.30)
[2021-12-21 10:59] LABS: BAND NEUTROPHILS 5 %; LYMPHOCYTES % (MANUAL) 8 %; MONOCYTES % (MANUAL) 6 %; NEUTROPHILS % (MANUAL) 81 %
[2021-12-21 11:00] LABS: RBC MORPH NORMAL
--- NOTE | 2021-12-21 11:14 | Diagnostic Imaging Report ---
INDICATION: Fever and altered mental status. Frontal chest obtained at 11:07 a.m. compared to 12/12/2021 Heart is borderline in size. There is central vascular congestion. There is chronic appearing increased interstitial prominence. There is no focal infiltrate or pneumothorax or pleural fluid. IMPRESSION: Cardiomegaly and mild central vascular prominence with chronic appearing increased interstitial markings. No acute consolidation or pleural fluid. Dictated by: Dictated on workstation # [id number]
[2021-12-21] MEDS ORDERED: NALOXONE 2 MG/2 ML (NARCAN) SYR ONE (11:23)
[2021-12-21] MEDS ORDERED: NALOXONE 2 MG/2 ML (NARCAN) SYR IV ONE ×2 (11:30)
[2021-12-21 11:31] LABS: VALPROIC ACID 8.6 UG/ML (50.0-100.0)
[2021-12-21] MEDS ORDERED: DEXTROSE 50% 50 ML (IMS) SYR IV ONE ×3 (11:45→17:00)
[2021-12-21] MEDS ORDERED: SODIUM BICARB 8.4% 50 MEQ/50 ML (ABBOTT) SYR IV ONE (11:45)
[2021-12-21] MEDS ORDERED: inSUlin (REGULAR) HUMAN 1 UNIT/0.01 ML (CHARGE PER UNIT) SC ONE (11:45)
[2021-12-21 11:56] LABS: ABG BASE EXCESS -1.5 MMOL/L (-2.5-2.5); ABG OXYGEN SATURATION 97 % (94-100); ABG PCO2 33 MMHG (35-45); ABG PH 7.44 (7.37-7.43); ABG PO2 119 MMHG (79-93); ABG TCO2 23.1 MMOL/L (21.0-31.0)
[2021-12-21 11:58] LABS: PATIENT TEMP 37.2
[2021-12-21] MEDS ORDERED: PIPERACILLIN SODIUM/TAZOBACTAM 4.5 GM in NS (IVPB) 100 ML IV ONE (12:15)
[2021-12-21] MEDS ORDERED: ONDANSETRON 4 MG/2 ML (SDV) Z0FRAN IVP PRN (13:45)
--- NOTE | 2021-12-21 13:45 | History & Physical ---
History of Present Illness History of Present Illness Reason for visit/HPI This is a 61-year-old male with a history of cerebral palsy and developmental delays from a local residential with a chief complaint of depressed mental status. He is normally up, conversant and interactive in his wheelchair, feeds himself and was last "normal" around dinnertime yesterday evening. Staff states that he was a little sleepier than normal but did fine. Reportedly he got up on ce in the night to vomit. When staff went in to check on him this morning he was quite somnolent, not following commands not really opening his eyes or moving around much. No reported falls or trauma. He does have a history of seizure disorder with frequent seizures. He is maintained on Keppra currently but is being transitioned to Depakote according to staff at the bedside. He started his Depakote earlier this week. He has a chronic indwelling martins catheter with frequent UTIs and just finished cipro, which was prescribed at his last ER visit, yesterday. Date of Admission Dec 21, 2021 at 11:58 Date Seen by a Provider: Dec 21, 2021 Time Seen by a Provider: 13:39 I consulted on this patient on 12/21/21 13:39 Attending Physician Seth Noe DO Admitting Physician Admitting Physician: Seth Noe DO Attending Physician: Seth Noe DO Consult Allergies and Home Medications Allergies Coded Allergies: lorazepam (Verified Adverse Reaction, Intermediate, HYPERACTIVITY, 12/07/21) Patient Home Medication List Home Medication List Reviewed: Yes Acetaminophen (Acetaminophen) 500 Mg Tablet, 500 MG PO Q6H PRN for TEMPATURE OR MILD PAIN, (Reported) Entered as Reported by: HAROLDO STONE on 06/03/16 1413 Alprazolam (Alprazolam) 1 Mg Tablet, 1 MG PO DAILY PRN for PRIOR TO MEDICAL APPOINTMENTS, (Reported) Entered as Reported by: SREE MICHELLE on 07/01/17 0845 Bismuth Subsalicylate (Pepto-Bismol) 262 Mg/15 Ml Oral.susp, PO UD PRN for UPSET STOMACH/INDIGESTION, (Reported) Entered as Reported by: SREE MICHELLE on 07/01/17 0852 Calamine/Zinc Oxide (Calamine Lotion) 177 Ml Lotion, TP UD PRN for RASH, (Reported) Entered as Reported by: SREE MICHELLE on 07/01/17 0845 Cephalexin (Cephalexin) 500 Mg Tablet, 500 MG PO TID Prescribed by: LENA BARRIENTOS on 04/23/21 152 Ciprofloxacin HCl (Ciprofloxacin HCl) 500 Mg Tablet, 500 MG PO BID Prescribed by: KWABENA RECINOS on 12/12/212010 Citalopram Hydrobromide (Citalopram HBr) 40 Mg Tablet, 40 MG PO DAILY Prescribed by: TOBY BURGOS on 12/31/20 101 Cranberry Extract (Cranberry) 425 Mg Capsule, 425 MG PO BID Prescribed by: TOBY BURGOS on 12/31/20 101 Fluticasone Propionate (Fluticasone Propionate) 16 Gm [place].susp, 1 SPRAY NS BID, (Reported) Entered as Reported by: SREE MICHELLE on 07/01/17 0845 Guaifenesin/D-Methorphan Hb/PE (Robitussin Cough-Cold Cf Liq) 118 Ml Liquid, PO UD PRN for COUGH/CONGESTION, (Reported) Entered as Reported by: SREE MICHELLE on 07/01/17 0852 Hydrocortisone (Cortizone-10) 28 Gm Cream..g., TP UD PRN for RASH, ITCHING, (Reported) Entered as Reported by: SREE MICHELLE on 07/01/17 0852 Ketoconazole (Ketoconazole) 120 Ml Shampoo, TP SuWe, (Reported) Entered as Reported by: SREE MICHELLE on 07/01/17 0845 L. Rhamnosus GG/Inulin (Culturelle Capsule) 1 Each Cap.sprink, 1 CAP PO DAILY PRN for HEALTHY BMS, (Reported) Entered as Reported by: SREE MICHELLE on 07/01/17 0845 Levetiracetam (Levetiracetam) 500 Mg Tablet, 500 MG PO BID Prescribed by: TOBY BURGOS on 12/31/20 101 Levetiracetam (Keppra) 1,000 Mg Tablet, 1,000 MG PO BID Prescribed by: LENA BARRIENTOS on 04/23/21 152 Levetiracetam (Keppra) 250 Mg Tablet, 250 MG PO DAILY Prescribed by: OCHOA SABILLON on 10/27/21 215 Loratadine (Loratadine) 10 Mg Tablet, 10 MG PO HS, (Reported) Entered as Reported by: SREE MICHELLE on 07/01/17 0845 Menthol (Gold Rosario Medicated Foot) 113 Gm Powder, TP UD PRN for FOOT ODOR/WETNESS, (Reported) Entered as Reported by: SREE MICHELLE on 07/01/17 0852 Mirtazapine (Mirtazapine) 15 Mg Tablet, 15 MG PO HS Prescribed by: TOBY BURGOS on 12/31/20 1015 Naphazoline HCl/Pheniramine (Opcon-A Eye Drops) 15 Ml Drops, 1-2 DROPS OU PRN PRN for REDNESS/SWELLING FROM ALLERGY, (Reported) Entered as Reported by: SREE MICHELLE on 07/01/17 0852 Neomycin Dinh/Bacitrac Zn/Poly (Gnp Triple Antibiotic Ointment) 28.4 Gm Oint...g., TP UD PRN for MINOR CUTS, SCRAPES, AND SORES, (Reported) Entered as Reported by: SREE MICHELLE on 07/01/17 0852 Pnv with Ca,No.72/Iron/FA ( Plus Tablet) 1 Each Tablet, 1 TAB PO DAILY, (Reported) Entered as Reported by: SREE MICHELLE on 07/01/17 0845 Polyethylene Glycol 3350 (Polyethylene Glycol 3350) 17 Gm Powd.pack, 17 GM PO BID, (Reported) Entered as Reported by: IRASEMA HUMPHREY on 09/28/18 1428 Pregabalin (Lyrica) 25 Mg Capsule, 25 MG PO HS, (Reported) Entered as Reported by: GIDEON CALLOWAY on 10/25/15 2258 Pregabalin (Lyrica) 50 Mg Capsule, 50 MG PO DAILY, (Reported) Entered as Reported by: SREE MICHELLE on 07/01/17 0845 Sennosides/Docusate Sodium (Senexon-S Tablet) 1 Each Tablet, 2 TAB PO BID, (Reported) Entered as Reported by: SREE MICHELLE on 07/01/17 0845 Past Akisflv-Wswmhp-Tdevhx Hx Patient Social History Tobacco Use?: No Use of E-Cig and/or Vaping dev: No Substance use?: No Alcohol Use?: No Pt feels they are or have been: No Immunizations Up To Date Date of Influenza Vaccine: Dec 08, 2017 PED Vaccines UTD: No Date of Pneumonia Vaccine: Jan 23, 2015 Seasonal Allergies Seasonal Allergies: Yes Current Status Primary Language: Irish Preferred Spoken Language: Irish Past Medical History Surgeries: Gallbladder, Orthopedic Currently Using CPAP: No Currently Using BIPAP: No Developmental Disorder, Seizure Disorder Sexually Transmitted Disease: No HIV/AIDS: No Prostate Problems, UTI-Chronic Chronic Constipation, Chronic Diarrhea, Gall Bladder Disease Fractures, Contracture Loss of Vision: Denies Hearing Impairment: Denies Anxiety Blood Disorders: Yes (ANEMIA) Adverse Reaction/Blood Tranf: No Family Medical History PAST SURGICAL HISTORY: -SURGERY ON ALL LEFT TOES -EGD'S/COLONSCOPIES -RIGHT FEMUR FX/ORIF -PROSTATE SURGERY ADDITIONAL PMH: -POST POLIO SYNDROME WITH LEFT SIDED CONTRACTURES, 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--PT IS NON-AMBULATORY -RIGHT FEMUR FX/ORIF WITH 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 OF HIP -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, MINIMAL VERBAL SKILLS -SEVERE ADAPTIVE BEHAVIOR DISORDER -DELUSIONAL DISORDER -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 Review of Systems Constitutional: fever, malaise, weakness EENTM: No see HPI, No no symptoms reported, No ear discharge, No hearing loss, No ear pain, No blurred vision, No double vision, No eye pain, No tearing, No vision loss, No dental problems, No hoarseness, No mouth pain, No mouth swelling, No epistaxis, No nose congestion, No nose pain, No throat pain, No throat swelling, No other Respiratory: No no symptoms reported, No see HPI, No cough, No dyspnea on exertion, No hemoptysis, No orthopnea, No phlegm, No short of breath, No stridor, No wheezing, No other Cardiovascular: No no symptoms reported, No see HPI, No chest pain, No edema, No Hx of Intervention, No palpitations, No syncope, No vascular heart diseas, No other Gastrointestinal: vomiting Genitourinary: other (indwelling martins catheter, recent UTI) Musculoskeletal: muscle weakness Skin: other (left eye bruise and blisters to heel) Psychiatric/Neurological: Seizure, Weakness, Other (lethargy) Physical Exam Vital Signs Vital Signs - First Documented 12/21/21 12/21/21 09:55 10:45 Temp 38.1 Pulse 111 Resp 20 B/P (MAP) 101/65 (77) Pulse Ox 93 O2 Delivery Room Air O2 Flow Rate 2.00 Capillary Refill : Less Than 3 Seconds Height, Weight, BMI Height: 5'9.00" Weight: 180lbs. 1.0oz. 81.589520ds; 25.00 BMI Method:Stated General Appearance: Other (Somnolent--will open eyes but does not verbalize) HEENT: Other (MM dry) Respiratory: Lungs Clear Cardiovascular: Tachycardia Gastrointestinal: Normal Bowel Sounds, Non Tender, Soft, Other (suprapubic catheter) Rectal: Deferred Back: No CVA Tenderness Extremity: Non Tender, No Calf Tenderness, No Pedal Edema Neurologic/Psychiatric: Motor Weakness (chronic contractures of hands), Other (somnolent) Skin: Ecchymosis (left eyelid), Other (blisters to both heels) Comments Laboratory Tests 12/21/21 10:02: Urine Color YELLOW, Urine Clarity CLEAR, Urine pH 8.5, Urine Specific [place] 1.010L, Urine Protein NEGATIVE, Urine Glucose (UA) NEGATIVE, Urine Ketones NEGATIVE, Urine Nitrite NEGATIVE, Urine Bilirubin NEGATIVE, Urine Urobilinogen 0.2, Urine Leukocyte Esterase 2+H, Urine RBC (Auto) 3+H, Urine RBC 10-25H, Urine WBC 5-10H, Urine Crystals NONE, Urine Bacteria FEWH, Urine Casts NONE, Urine Mucus NEGATIVE, Urine Culture Indicated YES 12/21/21 10:05: White Blood Count 15.9H, Red Blood Count 3.42L, Hemoglobin 11.1L, Hematocrit 32L , Mean Corpuscular Volume 94, Mean Corpuscular Hemoglobin 33, Mean Corpuscular Hemoglobin Concent 35, Red Cell Distribution Width 14.0, Platelet Count 170, Mean Platelet Volume 10.7, Immature Granulocyte % (Auto) 1, Neutrophils (%) (Auto) 83H, Lymphocytes (%) (Auto) 9L, Monocytes (%) (Auto) 6, Eosinophils (%) (Auto) 0, Basophils (%) (Auto) 0, Neutrophils # (Auto) 13.2H, Lymphocytes # (Auto) 1.5, Monocytes # (Auto) 1.0, Eosinophils # (Auto) 0.1, Basophils # (Auto) 0.0, Immature Granulocyte # (Auto) 0.1, Neutrophils % (Manual) 81, Lymphocytes % (Manual) 8, Monocytes % (Manual) 6, Band Neutrophils 5, Blood Morphology Comment NORMAL, Prothrombin Time 14.6, INR Comment 1.1, Activated Partial Thromboplast Time 35, Sodium Level 138, Potassium Level 6.0H, Chloride Level 108H, Carbon Dioxide Level 22, Anion Gap 8, Blood Urea Nitrogen 41H, Creatinine 1.30, Estimat Glomerular Filtration Rate 63, BUN/Creatinine Ratio 32, Glucose Level 74, Lactic Acid Level 0.73, Calcium Level 8.1L, Corrected Calcium 8.9, Total Bilirubin 0.5, Aspartate Amino Transf (AST/SGOT) 765H, Alanine Aminotransferase (ALT/SGPT) 685H , Alkaline Phosphatase 789H, C-Reactive Protein High Sensitivity 3.84H, Total Protein 6.1L, Albumin 3.0L, Lipase 175H, Procalcitonin 1.32H, Valproic Acid (Depakene) Level 8.6L, Influenza Type A (RT-PCR) Not Detected, Influenza Type B (RT-PCR) Not Detected, SARS-CoV-2 RNA (RT-PCR) Not Detected 12/21/21 11:17: Ammonia 38H 12/21/21 11:50: Blood Gas Puncture Site RW, Blood Gas Patient Temperature 37.2, Arterial Blood pH 7.44H, Arterial Blood Partial Pressure CO2 33L, Arterial Blood Partial Pressure O2 119H, Arterial Blood HCO3 22L, Arterial Blood Total CO2 23.1, Arterial Blood Oxygen Saturation 97, Arterial Blood Base Excess -1.5, Blake Test NA, Blood Gas Ventilator Setting NA, Blood Gas Inspired Oxygen NA Assessment/Plan Assessment and Plan 1. Altered Mental Status--likely from infection/dehydration 2. Febrile Illness/Sepsis--given 2L of IVFs in ER--will continue with aggressive hydration, cover with zosyn until cultures available, tylenol prn, add lovenox 3. Acute Pancreatitis/Elevated Liver Enzymes--hydrate and monitor, NPO, start IV protonix, IV zofran prn 4. Hyperkalemia--treated in ER with D5 bolus and insulin 5. History of Seizure Disorder--Will give IV Keppra 500mg IV BID for now due to elevated LFTs 6. Chronic Indwelling Martins Catheter with history of recurrent UTIs--cover with zosyn, await urine and blood cultures 7. Cerebral Palsy/Developmental Delays--patient is nonambulatory but is generally verbal and interactive so expect return to baseline with hydration and treatment of infection Admission Diagnosis Admission Status: Inpatient Order (span 2 midnights) Reason for Inpatient Admission: Will need aggressive IVFs, seizure precaution, await blood cultures SETH NOE DO Dec 21, 2021 13:45
[2021-12-21] MEDS ORDERED: PANTOPRAZOLE 40 MG (PROTONIX) VIAL IV NR (14:00)
[2021-12-21] MEDS ORDERED: ACETAMINOPHEN 650 MG SUPP (TYLENOL) PR PRN (14:00)
[2021-12-21 14:58] LABS: POTASSIUM 5.1 MMOL/L (3.6-5.0)
[2021-12-21 14:59] LABS: CALCIUM 8.1 MG/DL (8.5-10.1)
[2021-12-21 15:03] LABS: CREATININE SERUM 1.19 MG/DL (0.60-1.30)
[2021-12-21] MEDS ORDERED: DEXTROSE 50% 50 ML (IMS) SYR ONE (15:19)
[2021-12-21] MEDS: ENOXAPARIN 40 MG/0.4 ML (LOVENOX) SYR SC SCH (15:24)
[2021-12-21] MEDS ORDERED: D5 1/2 NS 1000 ML IV SOLUTION 1,000 ML IV SCH (15:30)
[2021-12-21] MEDS ORDERED: LEVE500T6 PO (15:42)
[2021-12-21] MEDS ORDERED: MELA5TAB14 PO (15:42)
[2021-12-21] MEDS ORDERED: MENT113P8 TP (15:42)
[2021-12-21] MEDS ORDERED: LEVE10006 PO (15:42)
[2021-12-21] MEDS ORDERED: CRAN425C2 PO (15:42)
[2021-12-21] MEDS ORDERED: DIVA-74 PO (15:42)
[2021-12-21] MEDS ORDERED: ARIP10TA55 PO (15:42)
[2021-12-21] MEDS ORDERED: MIRT-68 PO (15:42)
[2021-12-21] MEDS ORDERED: ASCO500T17 PO (15:42)
[2021-12-21] MEDS ORDERED: PRED5DRO17 OS (15:42)
[2021-12-21] MEDS ORDERED: METR59LO TOP (15:42)
[2021-12-21] MEDS ORDERED: CICL6.6S22 TP (15:42)
[2021-12-21] MEDS ORDERED: CITA40TA13 PO (15:42)
[2021-12-21] MEDS ORDERED: KETO120S13 TOP (15:42)
[2021-12-21] MEDS ORDERED: PNV1TABL PO (15:42)
[2021-12-21] MEDS ORDERED: NYST15CR35 TOP (15:42)
[2021-12-21] MEDS ORDERED: SENN-117 PO (15:42)
[2021-12-21] MEDS ORDERED: HYDR453. TP (15:42)
[2021-12-21 15:48] VITALS: BP 101/65
[2021-12-21 16:00] VITALS: BP 113/80
[2021-12-21] MEDS ORDERED: RT-ALBUTEROL SULF 2.5 MG/3 ML PRE-MIX VIAL INH PRN (16:00)
[2021-12-21] MEDS ORDERED: FLU QUADRIvalent (6 months+) 60 mcg/0.5 ml 2022-23 (Fluzone) IM ONE (17:45)
[2021-12-21] MEDS: DEXTROSE 10% IV SOLUTION 1,000 ML IV SCH (17:57)
[2021-12-21 19:51] VITALS: BP 108/81
[2021-12-21 20:00] VITALS: BP 118/78
[2021-12-22] VITALS (7 sets, daily range): BP systolic 126–145; BP diastolic 72–92
[2021-12-22] MEDS: DEXTROSE 10% IV SOLUTION 1,000 ML IV SCH ×2 (04:31→11:49)
[2021-12-22 05:25] LABS: BASOPHILS % (AUTO) 0 % (0-10); EOSINOPHILS # (AUTO) 0.2 10^3/uL (0.0-0.3); HEMOGLOBIN 10.1 g/dL (13.3-17.7); LYMPHOCYTES % (AUTO) 26 % (12-44); MEAN CORPUSCULAR HEMOGLOBIN 32 pg (25-34)
[2021-12-22 05:27] LABS: EOSINOPHILS % (AUTO) 5 % (0-10); HEMATOCRIT 30 % (40-54); LYMPHOCYTES # (AUTO) 1.3 10^3/uL (1.0-4.0); MEAN CORPUSCULAR HGB CONC 33 g/dL (32-36); MEAN CORPUSCULAR VOLUME 97 fL (80-99); MEAN PLATELET VOLUME 10.3 fL (9.0-12.2); MONOCYTES # (AUTO) 0.4 10^3/uL (0.0-1.0); MONOCYTES % (AUTO) 8 % (0-12); NEUTROPHILS # (AUTO) 3.1 10^3/uL (1.8-7.8); NEUTROPHILS % (AUTO) 61 % (42-75); PLATELET COUNT 124 10^3/uL (130-400); WHITE BLOOD COUNT 5.2 10^3/uL (4.3-11.0)
[2021-12-22 05:41] LABS: ALBUMIN 2.9 GM/DL (3.2-4.5); POTASSIUM 4.7 MMOL/L (3.6-5.0)
[2021-12-22 05:42] LABS: CALCIUM 8.5 MG/DL (8.5-10.1)
[2021-12-22 05:44] LABS: TOTAL PROTEIN 6.4 GM/DL (6.4-8.2)
[2021-12-22 05:45] LABS: BILIRUBIN,TOTAL 0.8 MG/DL (0.1-1.0)
[2021-12-22 05:47] LABS: CREATININE SERUM 1.05 MG/DL (0.60-1.30)
[2021-12-22] MEDS ORDERED: PIPERACILLIN SODIUM/TAZOBACTAM 4.5 GM in NS (IVPB) 100 ML IV ONE (09:00)
[2021-12-22] MEDS: PANTOPRAZOLE 40 MG (PROTONIX) VIAL IV SCH (09:48)
--- NOTE | 2021-12-22 10:42 | Progress Note - Hospitalist ---
Subjective HPI/CC On Admission Date Seen by Provider: Dec 22, 2021 Subjective/Events-last exam Pt reports doing ok. NO complaints. Asks to see my watch and then asks for a watch. No other concerns or questions. Focused Exam Lactate Level 12/21/21 10:05: Lactic Acid Level 0.73 Objective Exam Vital Signs Vital Signs Date Time Temp Pulse Resp B/P (MAP) Pulse Ox O2 Delivery O2 Flow Rate FiO2 12/22/21 07:46 92 Room Air 0.00 12/22/21 07:45 37.0 81 11 139/92 (108) 12/21/21 15:48 21 Capillary Refill : Less Than 3 Seconds General Appearance: No Apparent Distress, Chronically ill Respiratory: Lungs Clear Cardiovascular: Regular Rate, Rhythm, No Murmur Neurologic/Psychiatric: Alert, Normal Mood/Affect Results/Procedures Lab Laboratory Tests 12/21/21 14:35 12/22/21 04:53 12/22/21 04:55 Patient resulted labs reviewed. Assessment/Plan Assessment and Plan Assess & Plan/Chief Complaint 1. Altered Mental Status--improves, appears to be near his baseline 2. Febrile Illness/Severe Sepsis (POA)--BP improved, await cultures, blood cultures with GPC, awaiting sensitivities, most recent Urine Culture with pseudomonas so will continue Zosyn 3. Acute Pancreatitis/Elevated Liver Enzymes--LFTs mildly improved, advance , continue IVF 4. Hyperkalemia--resolved 5. History of Seizure Disorder--Continue IV Keppra 6. Chronic Indwelling Henry Catheter with history of recurrent UTIs--cover with zosyn, await urine and blood cultures as above 7. Cerebral Palsy/Developmental Delays--patient is nonambulatory but is generally verbal and interactive, PT/OT 8. hypoglycemia- improved, change accu checks to ACHS 9. MARIS- POA, now improved with IVF DARIN FREEMAN MD Dec 22, 2021 10:42
--- NOTE | 2021-12-22 11:32 | Physical Therapy Progress Note ---
Therapy Progress Note Received PT orders, performed chart review and discussed treatment with nurse. Patient is not appropriate for Skilled Physical therapy evaluation/treatment at this time as patient is at [facility]. Before admission he was w/c bound and unable to ambulate. Patient has CP, developmental delay and per nurse does not follow commands. He lives in a fci and has caretakers that perform all ADLs for him. Patient will be D/C from PT treatment. YAMILEX MORA PT Dec 22, 2021 11:32
[2021-12-22] MEDS: ENOXAPARIN 40 MG/0.4 ML (LOVENOX) SYR SC SCH (13:56)
[2021-12-22] MEDS: prednisoLONE 1% OPTH (PRED FORTE) 5 ML BTL OS SCH ×3 (13:56→20:32)
[2021-12-22] MEDS: PIPERACILLIN SODIUM/TAZOBACTAM 4.5 GM in NS (IVPB) 100 ML IV SCH (17:15)
[2021-12-22] MEDS: MIRTAZAPINE 15 MG (REMERON) TAB PO SCH (20:32)
[2021-12-22] MEDS: PREGABALIN 25 MG (LYRICA) CAPSULE PO SCH (20:32)
[2021-12-22] MEDS: DIVALPROEX 250 MG DELAYED RELEASE (DEPAKOTE) TAB PO SCH (20:32)
[2021-12-22] MEDS: SENNA W/DOCUSATE (SENOKOT S) TABLET PO SCH (20:32)
[2021-12-22] MEDS: FLUTICASONE NASAL SPRAY (FLONASE) 16 GM BTL NS SCH (20:32)
[2021-12-22] MEDS: MELATONIN 10 MG TABLET PO SCH (20:32)
[2021-12-23] MEDS: PIPERACILLIN SODIUM/TAZOBACTAM 4.5 GM in NS (IVPB) 100 ML IV SCH ×3 (00:51→17:21)
[2021-12-23] MEDS: DEXTROSE 10% IV SOLUTION 1,000 ML IV SCH (03:09)
[2021-12-23 03:42] VITALS: BP 133/92
[2021-12-23 05:57] LABS: HEMOGLOBIN 10.3 g/dL (13.3-17.7); MEAN PLATELET VOLUME 9.9 fL (9.0-12.2); WHITE BLOOD COUNT 4.9 10^3/uL (4.3-11.0)
[2021-12-23 06:17] LABS: POTASSIUM 4.3 MMOL/L (3.6-5.0)
[2021-12-23 06:18] LABS: CALCIUM 8.7 MG/DL (8.5-10.1)
[2021-12-23 06:23] LABS: CREATININE SERUM 1.15 MG/DL (0.60-1.30)
[2021-12-23 08:00] VITALS: BP 162/82
[2021-12-23] MEDS: LACTOBACILLUS ACIDOPHILUS (PROBIOTIC) CAPSULE PO SCH (08:09)
[2021-12-23] MEDS: DIVALPROEX 250 MG DELAYED RELEASE (DEPAKOTE) TAB PO SCH ×2 (08:10→19:58)
[2021-12-23] MEDS: SENNA W/DOCUSATE (SENOKOT S) TABLET PO SCH ×2 (08:10→19:59)
[2021-12-23] MEDS: FLUTICASONE NASAL SPRAY (FLONASE) 16 GM BTL NS SCH ×2 (08:10→19:59)
[2021-12-23] MEDS: PANTOPRAZOLE 40 MG (PROTONIX) VIAL IV SCH (08:10)
[2021-12-23] MEDS: PREGABALIN 50 MG (LYRICA) CAP PO SCH (08:10)
[2021-12-23] MEDS: prednisoLONE 1% OPTH (PRED FORTE) 5 ML BTL OS SCH ×4 (08:11→19:59)
--- NOTE | 2021-12-23 10:25 | Progress Note - Hospitalist ---
Subjective HPI/CC On Admission Date Seen by Provider: Dec 23, 2021 Subjective/Events-last exam Pt reports doing well. Asks multipel times to go home. Caregiver at bedside. I explain blood culture results and need to keep one more night for further testing on it. Focused Exam Lactate Level 12/21/21 10:05: Lactic Acid Level 0.73 Objective Exam Vital Signs Vital Signs Date Time Temp Pulse Resp B/P (MAP) Pulse Ox O2 Delivery O2 Flow Rate FiO2 12/23/21 08:00 37.0 92 20 162/82 (108) 91 Room Air 12/22/21 07:46 0.00 12/21/21 15:48 21 Capillary Refill : Less Than 3 Seconds General Appearance: No Apparent Distress, WD/WN Respiratory: Lungs Clear, No Respiratory Distress Cardiovascular: Regular Rate, Rhythm, No Murmur Neurologic/Psychiatric: Alert, Oriented x3 Results/Procedures Lab Laboratory Tests 12/23/21 05:48 Patient resulted labs reviewed. Assessment/Plan Assessment and Plan Assess & Plan/Chief Complaint 1. Altered Mental Status--improvesd to his baseline 2. Febrile Illness/Severe Sepsis (POA)--BP improved, await cultures, blood cultures with GPC, awaiting ID/sensitivities, most recent Urine Culture with pseudomonas so will continue Zosyn 3. Acute Pancreatitis/Elevated Liver Enzymes--LFTs mildly improved, advance d iet, continue IVF 4. Hyperkalemia--resolved 5. History of Seizure Disorder--Continue home meds 6. Chronic Indwelling Henry Catheter with history of recurrent UTIs--cover with zosyn, await urine and blood cultures as above 7. Cerebral Palsy/Developmental Delays--patient is nonambulatory but is ge nerally verbal and interactive, PT/OT 8. hypoglycemia- decreased rate yesterday, BS ok. Will DC dextrose today and monitor for recurrent hypoglycemia 9. MARIS- resolved DARIN FREEMAN MD Dec 23, 2021 10:25
[2021-12-23 11:45] VITALS: BP 160/82
[2021-12-23] MEDS: ENOXAPARIN 40 MG/0.4 ML (LOVENOX) SYR SC SCH (13:28)
[2021-12-23 15:53] VITALS: BP 143/89
[2021-12-23 19:23] VITALS: BP 156/87
[2021-12-23] MEDS: MIRTAZAPINE 15 MG (REMERON) TAB PO SCH (19:58)
[2021-12-23] MEDS: PREGABALIN 25 MG (LYRICA) CAPSULE PO SCH (19:58)
[2021-12-23] MEDS: MELATONIN 10 MG TABLET PO SCH (19:58)
[2021-12-24 00:09] VITALS: BP 139/81
[2021-12-24] MEDS: PIPERACILLIN SODIUM/TAZOBACTAM 4.5 GM in NS (IVPB) 100 ML IV SCH ×2 (00:59→09:02)
[2021-12-24 03:59] VITALS: BP 141/82
[2021-12-24 05:57] LABS: HEMATOCRIT 34 % (40-54); HEMOGLOBIN 11.4 g/dL (13.3-17.7); MEAN CORPUSCULAR HEMOGLOBIN 33 pg (25-34); MEAN CORPUSCULAR HGB CONC 34 g/dL (32-36); MEAN CORPUSCULAR VOLUME 96 fL (80-99); MEAN PLATELET VOLUME 9.8 fL (9.0-12.2); PLATELET COUNT 148 10^3/uL (130-400); WHITE BLOOD COUNT 5.1 10^3/uL (4.3-11.0)
[2021-12-24 06:06] LABS: ALBUMIN 3.1 GM/DL (3.2-4.5); POTASSIUM 3.9 MMOL/L (3.6-5.0)
[2021-12-24 06:07] LABS: CALCIUM 8.8 MG/DL (8.5-10.1)
[2021-12-24 06:09] LABS: TOTAL PROTEIN 6.5 GM/DL (6.4-8.2)
[2021-12-24 06:10] LABS: BILIRUBIN,TOTAL 0.7 MG/DL (0.1-1.0)
[2021-12-24 06:12] LABS: CREATININE SERUM 1.18 MG/DL (0.60-1.30)
--- NOTE | 2021-12-24 07:23 | Progress Note ---
LEANNE CHANEY 12/24/21 0723: Subjective Date Seen by a Provider: Dec 24, 2021 Time Seen by a Provider: 08:00 Subjective/Events-last exam Patient is talkative and in good spirits this morning He is hungry and wants breakfast No complaints of pain this morning Fluids are currently on hold Wants to go home Labs reviewed Focused Exam Lactate Level 12/21/21 10:05: Lactic Acid Level 0.73 Objective Exam Last Set of Vital Signs Vital Signs Date Time Temp Pulse Resp B/P (MAP) Pulse Ox O2 Delivery O2 Flow Rate FiO2 12/24/21 03:59 36.6 81 16 141/82 (101) 96 Room Air 12/24/21 03:28 21 12/23/21 08:00 0.00 Capillary Refill : Less Than 3 Seconds I&O Intake and Output 12/24/21 00:00 Intake Total 970 ml Output Total 3550 ml Balance -2580 ml Intake Oral 770 ml IV Total 200 ml Output Urine Total 3550 ml General: Alert, Cooperative, No Acute Distress HEENT: Atraumatic Neck: Supple, No JVD Lungs: Clear to Auscultation Heart: Regular Rate, No Murmurs Abdomen: Normal Bowel Sounds, Soft Extremities: No Clubbing, No Cyanosis Skin: No Rashes, No Breakdown Neuro: Normal Tone, Sensation Intact Psych/Mental Status: Mental Status NL Results Lab Laboratory Tests 12/23/21 15:31: Glucometer 178H 12/23/21 20:11: Glucometer 139H 12/24/21 05:28: White Blood Count 5.1, Red Blood Count 3.49L, Hemoglobin 11.4L, Hematocrit 34L, Mean Corpuscular Volume 96, Mean Corpuscular Hemoglobin 33, Mean Corpuscular Hemoglobin Concent 34, Red Cell Distribution Width 14.0, Platelet Count 148, Mean Platelet Volume 9.8, Sodium Level 143, Potassium Level 3.9, Chloride Level 109H, Carbon Dioxide Level 22, Anion Gap 12, Blood Urea Nitrogen 18, Creatinine 1.18, Estimat Glomerular Filtration Rate 71, BUN/Creatinine Ratio 15, Glucose Level 75, Calcium Level 8.8, Corrected Calcium 9.5, Total Bilirubin 0.7, Aspartate Amino Transf (AST/SGOT) 177H, Alanine Aminotransferase (ALT/SGPT) 484H , Alkaline Phosphatase 562H, Total Protein 6.5, Albumin 3.1L Microbiology 12/21/21 Blood Culture - Preliminary, Resulted Staphylococcus hominis 12/21/21 Urine Culture - Final, Complete NO GROWTH Assessment/Plan Assessment/Plan Assess & Plan/Chief Complaint Altered Mental Status--improved to his baseline Febrile Illness/Severe Sepsis (POA)--BP improved, most recent Urine Culture with pseudomonas so will continue Zosyn Blood culture grew staph hominis-continue Zosyn Acute Pancreatitis/Elevated Liver Enzymes LFTs improved, advance diet Hyperkalemia--resolved History of Seizure Disorder Continue home meds Chronic Indwelling Henry Catheter with history of recurrent UTIs Cover with zosyn, blood cultures as above Urine culture no growth Cerebral Palsy/Developmental Delays Patient is non-ambulatory but is generally verbal and interactive Continue PT/OT Hypoglycemia Dextrose has been DC, sugars have been running lower Continue to monitor MARIS- resolved SETH CANALES DO 12/24/21 1308: Supervisory-Addendum Brief Verification & Attestation Participated in pt care: history, physical Personally performed: exam, history, supervision of care Care discussed with: Medical Student Procedures: n/a Results interpretation: Verified all documentation Patient seen and assessed. See DC summary. LEANNE CHANEY Dec 24, 2021 07:23 SETH CANALES DO Dec 24, 2021 13:08
[2021-12-24 07:50] VITALS: BP 136/76
[2021-12-24] MEDS ORDERED: DIVA500T PO (08:32)
[2021-12-24] MEDS ORDERED: AMOX-355 PO (08:32)
[2021-12-24] MEDS ORDERED: LEVE500T6 PO (08:32)
--- NOTE | 2021-12-24 08:51 | Discharge Summary ---
LEANNE CHANEY 12/24/21 0851: Diagnosis/Chief Complaint Date of Admission Dec 21, 2021 at 11:58 Date of Discharge 12-24-2021 Discharge Date: Dec 24, 2021 Admission Diagnosis Admission Diagnosis Altered mental status Somnolence Fever Acute pancreatitis without necrosis or infection, unspecified Seizure disorder Discharge Diagnosis Altered Mental Status--improved to his baseline Febrile Illness/Severe Sepsis (POA)--BP improved, most recent Urine Culture with pseudomonas so will continue Zosyn Blood culture grew staph hominis-start augmentin Acute Pancreatitis/Elevated Liver Enzymes-Much improved LFTs improved, advance diet Hyperkalemia--resolved History of Seizure Disorder Continue home meds Increase Depakote Decrease Keppra Chronic Indwelling Henry Catheter with history of recurrent UTIs Covered with zosyn, blood cultures as above Urine culture no growth Cerebral Palsy/Developmental Delays Patient is non-ambulatory but is generally verbal and interactive Continue PT/OT Hypoglycemia Dextrose has been DC, sugars have been running lower Continue to monitor MARIS- resolved Discharge Summary Hospital Course Was the Problem List Reviewed?: Yes Hospital Course Patient is a 61-year-old male with a history of cerebral palsy from a local intermediate came to the ER on 03-23-2021 with a chief complaint of depressed mental status. He is normally up, conversant and interactive in his wheelchair, feeds himself and was last "normal" around dinnertime on 12-20-2021. Staff states that he was a little sleepier than normal but did fine. Reportedly he got up once in the night to vomit. When staff went in to check on him that morning he was quite somnolent, not following commands not really opening his eyes or moving around much. No reported falls or trauma. He does have a history of seizure disorder with frequent seizures. He is maintained on Keppra currently but is being transitioned to Depakote according to staff at the bedside. He started his Depakote earlier this week. He does have suprapubic indwelling catheter. He was subsequently admitted for altered mental status, and febrile illness. His lipase and liver enzymes were elevated upon admission. He chest x-ray showed no consolidation or pleural fluid. His prior uti grew pseudomonas and was thus started on Zosyn. His currently urine culture did not grow anything but was positive for leukocytes esterase. His blood culture grew staphylococcus hominis, and was maintained on zosyn. He was given fluids to help with his acute pancreatits, which helped his LFTs and lipase decreased throughout his stay. His IV fluids where stopped on 12-23-2021 and had some lower blood sugars of 100 and 90, but nothing below that. He was not very motivated to eat during his stay but was able to. He will be discharged with a decrease his dose of keppra and a increase in his depakote. Today (12-24-2021) patient was in good spirits and had no complaints of pain. Was able to eat breakfast and was ready to go home. Labs Laboratory Tests 12/21/21 10:02: Urine Specific [place] 1.010L, Urine Leukocyte Esterase 2+H, Urine RBC (Auto) 3+H, Urine RBC 10-25H, Urine WBC 5-10H, Urine Bacteria FEWH 12/21/21 10:05: White Blood Count 15.9H, Red Blood Count 3.42L, Hemoglobin 11.1L, Hematocrit 32L , Neutrophils (%) (Auto) 83H, Lymphocytes (%) (Auto) 9L, Neutrophils # (Auto) 13.2H, Potassium Level 6.0H, Chloride Level 108H, Blood Urea Nitrogen 41H, Calcium Level 8.1L, Aspartate Amino Transf (AST/SGOT) 765H, Alanine Aminotransferase (ALT/SGPT) 685H, Alkaline Phosphatase 789H, C-Reactive Protein High Sensitivity 3.84H, Total Protein 6.1L, Albumin 3.0L, Lipase 175H, Procal citonin 1.32H, Valproic Acid (Depakene) Level 8.6L 12/21/21 11:17: Ammonia 38H 12/21/21 11:50: Arterial Blood pH 7.44H, Arterial Blood Partial Pressure CO2 33L, Arterial Blood Partial Pressure O2 119H, Arterial Blood HCO3 22L 12/21/21 14:35: Potassium Level 5.1H, Chloride Level 112H, Anion Gap 4L, Blood Urea Nitrogen 38H , Glucose Level 40*L, Calcium Level 8.1L 12/21/21 16:48: Glucometer 56*L 12/21/21 18:05: 12/22/21 00:25: 12/22/21 04:53: Red Blood Count 3.14L, Hemoglobin 10.1L, Hematocrit 30L, Platelet Count 124L 12/22/21 04:55: Chloride Level 110H, Blood Urea Nitrogen 27H, Aspartate Amino Transf (AST/SGOT) 609H, Alanine Aminotransferase (ALT/SGPT) 706#H, Alkaline Phosphatase 660H, Albumin 2.9L 12/22/21 10:37: 12/22/21 16:08: Glucometer 214H 12/23/21 01:52: 12/23/21 03:45: Glucometer 134H 12/23/21 05:35: Glucometer 124H 12/23/21 05:48: Red Blood Count 3.16L, Hemoglobin 10.3L, Hematocrit 31L, Chloride Level 109H, Blood Urea Nitrogen 21H, Glucose Level 118H 12/23/21 15:31: Glucometer 178H 12/23/21 20:11: Glucometer 139H 12/24/21 05:28: Red Blood Count 3.49L, Hemoglobin 11.4L, Hematocrit 34L, Chloride Level 109H, Aspartate Amino Transf (AST/SGOT) 177H, Alanine Aminotransferase (ALT/SGPT) 484H , Alkaline Phosphatase 562H, Albumin 3.1L Procedures None. Discharge Physical Examination Allergies: Coded Allergies: lorazepam (Verified Adverse Reaction, Intermediate, HYPERACTIVITY, 12/07/21) Vitals & I&Os Vital Signs Date Time Temp Pulse Resp B/P (MAP) Pulse Ox O2 Delivery O2 Flow Rate FiO2 12/24/21 07:50 36.1 74 18 136/76 (96) 96 Room Air 12/24/21 03:28 21 12/23/21 08:00 0.00 General Appearance: Alert, Cooperative, No Acute Distress HEENT: Atraumatic Respiratory: Clear to Auscultation Cardiovascular: Regular Rate, Normal S1 Abdominal: Normal Bowel Sounds, Soft Extremities: No Clubbing, No Cyanosis Skin: No Rashes, No Breakdown Neuro: Normal Tone, Sensation Intact Psych/Mental Status: Mental Status NL Discharge Home Medications Reviewed and agree with Discharge Medication list on patient's Discharge Instruction sheet Instructions to Patient/Family Please see electronic discharge instructions given to patient. SETH CANALES DO 12/24/21 1315: Discharge Summary Discharge Physical Examination Allergies: Coded Allergies: lorazepam (Verified Adverse Reaction, Intermediate, HYPERACTIVITY, 12/07/21) Supervisory-Addendum Brief Verification & Attestation Participated in pt care: history, physical Personally performed: exam, history, supervision of care Care discussed with: Medical Student Procedures: n/a Results interpretation: Verified all documentation Patient seen and assessed. Will DC back to intermediate on 5 more days of antibiotics as well as increasing depakote and decreasing keppra and fwup in 1 week LEANNE CHANEY Dec 24, 2021 08:51 SETH CANALES DO Dec 24, 2021 13:15
[2021-12-24 09:01] VITALS: BP 136/76
[2021-12-24] MEDS: PANTOPRAZOLE 40 MG (PROTONIX) VIAL IV SCH (09:01)
[2021-12-24] MEDS: LACTOBACILLUS ACIDOPHILUS (PROBIOTIC) CAPSULE PO SCH (09:02)
[2021-12-24] MEDS: PREGABALIN 50 MG (LYRICA) CAP PO SCH (09:02)
[2021-12-24] MEDS: DIVALPROEX 250 MG DELAYED RELEASE (DEPAKOTE) TAB PO SCH (09:02)
[2021-12-24] MEDS: FLUTICASONE NASAL SPRAY (FLONASE) 16 GM BTL NS SCH (09:02)
[2021-12-24] MEDS: SENNA W/DOCUSATE (SENOKOT S) TABLET PO SCH (09:02)
[2021-12-24] MEDS: prednisoLONE 1% OPTH (PRED FORTE) 5 ML BTL OS SCH (09:02)
[2021-12-24] MEDS ORDERED: FLU QUADRIvalent (6 months+) 60 mcg/0.5 ml 2022-23 (Fluzone) IM ONE ×2 (12:00→12:15)
[2021-12-24 12:03] VITALS: BP 133/72
[2021-12-24 13:19] VITALS: BP 133/72
--- NOTE | 2021-12-24 18:57 | Physician Query Clarification ---
Physician Query-General Query to Physician: The medical record reflects the following clinical scenario: The patient, in the setting of History/Risk factors, history of cerebral palsy and developmental delays, Sepsis with acute pancreatitis Clinical Findings Documentation of "chief complaint of depressed mental status. He is normally up, conversant and interactive in his wheelchair, feeds himself and was last "normal" around dinnertime yesterday evening.", GCS on admission per nursing 4, improved to 15 and Documentation by attending of "improved to his baseline". Treatment Sepsis treated with IV Fluids, and IV ABX IV Zosyn, neuro assessments, Question: Can you further specify Altered Mental Status per the clinical indica tors above? Please document your response in the Progress Notes or Discharge Summary. 1. Acute Metabolic Encephalopathy, present on admission now resolved 2. Other, with explanation of clinical findings 3. Clinically undetermined, no explanation for clinical findings Please clarify and document your clinical opinion in the Progress Notes and Discharge Summary including the definitive and/or presumptive diagnosis, (suspected or probable), related to the above clinical findings. Please include clinical findings supporting your diagnosis. In responding to this query, please exercise your independent professional judgment. The purpose of this communication is to more accurately reflect the complexity of your patients condition. The fact that a question is asked does not imply that any particular answer is desired or expected. Thank you for timely response to this clarification. Alix Jeffery RN, MSN Clinical Activity Leader [phone] [email or web address] PHYSICIAN RESPONSE: Based on the clinical findings in the record, please respond to the query above on this document as an addendum. Physician Response: Physician Response From Sepsis If you have questions please contact: Wound Care Nurse: Ext: Thank you for your time and cooperation. Clinical Activity Leader/Wound Care Nurse This is a permanent part of the medical record ALIX JEFFERY Dec 24, 2021 18:57 SETH CANALES DO Dec 25, 2021 12:36
== END 2021-12-24 12:45 | disposition home or self-care (01) | DRG 871 ==
LOC: EDUNIT# 09:48 → ER 09:48 → CSD 11:58 → 4TH 12-22 11:31
PROVIDERS: ADMIT Family Medicine; ATTEND Family Medicine
DX: A41.9 Sepsis, unspecified organism (principal); G93.41 Metabolic encephalopathy; K85.90 Acute pancreatitis without necrosis or infection, unspecified; N17.9 Acute kidney failure, unspecified; F32.A Depression, unspecified; G47.9 Sleep disorder, unspecified; G40.909 Epilepsy, unspecified, not intractable, without status epilepticus; F89 Unspecified disorder of psychological development; F41.9 Anxiety disorder, unspecified; Z20.822 Contact with and (suspected) exposure to COVID-19; E86.0 Dehydration; E87.5 Hyperkalemia; G80.9 Cerebral palsy, unspecified; E16.2 Hypoglycemia, unspecified; R62.50 Unspecified lack of expected normal physiological development in childhood
CPT/HCPCS: 36415; 71045; 80048; 80053; 80164; 81000; 82140; 82805; 82947; 83605; 83690; 84145; 85007; 85025; 85027; 85610; 85730; 86141; 87040; 87077; 87088; 87636; 90686

== ENCOUNTER 2021-12-30 11:07 | Emergency (ER) | payer MEDICARE, MEDICAID ==
[~2021-12-30 11:07] MED LIST changes: +AMOX-355 PO; +ARIP10TA55 PO; +ASCO500T17 PO; +CICL6.6S22 TP; +DIVA-74 PO; +DIVA500T PO; +HYDR453. TP; +KETO120S13 TOP; +LEVE10006 PO; +MELA5TAB14 PO; +MENT113P8 TP; +METR59LO TOP; +NYST15CR35 TOP; +PRED5DRO17 OS; +SENN-117 PO
--- NOTE | 2021-12-30 11:57 | ED General ---
General Chief Complaint: Neurological Problems Stated Complaint: SEIZURES Nursing Triage Note: Pt here with seizure activity; pt does have seizure hx and has been having his meds changed from Keppra to Depakote and has been recently ill with an infection. Pt is on abx. Source of Information: Caregiver, Old Records Exam Limitations: Physical Impairments History of Present Illness Date Seen by Provider: Dec 30, 2021 Time Seen by Provider: 11:45 Initial Comments Patient is a 61-year-old male with a past medical history of developmental delay, cerebral palsy, and seizure disorder who presents to the emergency department for evaluation of reported intermittent decreased level of consciousness and concern for increased seizure activity over the past few days. Patient was recently admitted to this hospital from 12/21-12/24 where he was diagnosed with bacteremia requiring IV antibiotics were transitioned to oral antibiotics upon discharge. Caregiver states patient has finished his oral antibiotics as of yesterday. She states patient has not had any return of the symptomology that led him to present prior to his previous admission. He has been seen a PCP since his discharge. He is currently being weaned off of Keppra and onto Depakote. His previous admission, patient was noted to have transaminitis. He was also hyperkalemic and had intermittent hypoglycemia during his admission. Caregiver states patient has otherwise been doing well. He has been eating and drinking without issue. Patient is currently living in a alf. Patient has not had a fever. No other symptoms outside of the intermittent decreased LOC noted. Patient is scheduled to follow-up with PCP later this week for another Depakote level to be checked. Allergies and Home Medications Allergies Coded Allergies: lorazepam (Verified Adverse Reaction, Intermediate, HYPERACTIVITY, 12/07/21) Patient Home Medication List Home Medication List Reviewed: Yes Acetaminophen (Acetaminophen) 500 Mg Tablet, 500 MG PO Q6H PRN for PAIN-MILD (1- 4) OR TEMPATURE, (Reported) Entered as Reported by: HAROLDO STONE on 06/03/16 1413 Amoxicillin/Potassium Clav (Augmentin 500-125 Tablet) 500 Mg-125 Mg Tablet, 1 EACH PO BID Prescribed by: SETH CANALES on 12/24/21 0832 Aripiprazole (Aripiprazole) 10 Mg Tablet, 10 MG PO 1999, (Reported) Entered as Reported by: MAHENDRA SANTOS on 12/21/21 1542 Bismuth Subsalicylate (Pepto-Bismol) 262 Mg/15 Ml Oral.susp, PO UD PRN for UPSET STOMACH/INDIGESTION, (Reported) Entered as Reported by: SREE MICHELLE on 07/01/17 08 Calamine/Zinc Oxide (Calamine Lotion) 177 Ml Lotion, TP UD PRN for RASH, (Reported) Entered as Reported by: SREE MICHELLE on 07/01/17 08 Ciclopirox (Ciclopirox) 8 % Solution, 1 APPLIC TP 2000, (Reported) Entered as Reported by: MAHENDRA SANTOS on 12/21/21 154 Citalopram Hydrobromide (Citalopram HBr) 40 Mg Tablet, 40 MG PO DAILY, (Reported) Entered as Reported by: MAHENDRA SANTOS on 12/21/211541 Cranberry Extract (Cranberry) 425 Mg Capsule, 425 MG PO BID, (Reported) Entered as Reported by: MAHENDRA SANTOS on 12/21/21 154 Divalproex Sodium (Depakote) 500 Mg Tablet.dr, 500 MG PO BID Prescribed by: SETH CANALES on 12/24/21 0832 Fluticasone Propionate (Fluticasone Propionate) 16 Gm Mcgregor.susp, 1 SPRAY NS BID, (Reported) Entered as Reported by: SREE MICHELLE on 07/01/17 08 Guaifenesin/D-Methorphan Hb/PE (Robitussin Cough-Cold Cf Liq) 118 Ml Liquid, PO UD PRN for COUGH/CONGESTION, (Reported) Entered as Reported by: SREE MICHELLE on 07/01/17 08 Hydrocortisone (Hydrocortisone) 1 % Cream..g., 1 APPLIC TP UD PRN for RASH AND ITCHING, (Reported) Entered as Reported by: MAHENDRA SANTOS on 12/21/21 154 Ketoconazole (Ketoconazole) 2 % Shampoo, 1 APPLIC TOP TU,FRI, (Reported) Entered as Reported by: MAHENDRA SANTOS on 12/21/21 154 L. Rhamnosus GG/Inulin (Culturelle Capsule) 10 Billion Cell-200 Mg Cap.sprink, 1 CAP PO DAILY, (Reported) Entered as Reported by: SREE MICHELLE on 07/01/17 0845 Levetiracetam (Levetiracetam) 500 Mg Tablet, 500 MG PO BID Prescribed by: SETH CANALES on 12/24/21 0832 Loratadine (Loratadine) 10 Mg Tablet, 10 MG PO 1999, (Reported) Entered as Reported by: SREE MICHELLE on 07/01/17 0845 Menthol (Gold Rosario Medicated Body) 0.8 % Powder, 1 APPLIC TP UD PRN for FOOT ODOR AND WETNESS, (Reported) Entered as Reported by: MAHENDRA SANTOS on 12/21/21 154 Metronidazole (Metronidazole) 0.75 % Lotion, 1 APPLIC TOP 1999, (Reported) Entered as Reported by: MAHENDRA SANTOS on 12/21/21 154 Mirtazapine (Mirtazapine) 15 Mg Tablet, 15 MG PO 1999, (Reported) Entered as Reported by: MAHENDRA SANTOS on 12/21/21 154 Naphazoline HCl/Pheniramine (Opcon-A Eye Drops) 0.97698 %-0.315 % Drops, 1-2 DROPS OU UD PRN for REDNESS/SWELLING FROM ALLERGY, (Reported) Entered as Reported by: SREE MICHELLE on 07/01/17 0852 Neomycin Dinh/Bacitrac Zn/Poly (Gnp Triple Antibiotic Ointment) 28.4 Gm Oint...g., TP UD PRN for MINOR CUTS, SCRAPES, AND SORES, (Reported) Entered as Reported by: SREE MICHELLE on 07/01/17 0852 Nystatin (Nystatin) 100,000 Unit/Gram Cream..g., 1 APPLIC TOP BID PRN for SCALING RASH, (Reported) Entered as Reported by: MAHENDRA SANTOS on 12/21/21 154 Pnv with Ca,No.72/Iron/FA ( Plus Tablet) 27 Mg Iron-1 Mg Tablet, 1 EA PO DAILY, (Reported) Entered as Reported by: MAHENDRA SANTOS on 12/21/21 154 Polyethylene Glycol 3350 (Polyethylene Glycol 3350) 17 Gm Powd.pack, 17 GM PO BID, (Reported) Entered as Reported by: IRASEMA HUMPHREY on 09/28/18 1428 Prednisolone Acetate (Prednisolone Acetate) 1 % Drops.susp, 1 DROP OS QID, (Reported) Entered as Reported by: MAHENDRA SANTOS on 12/21/21 154 Pregabalin (Lyrica) 50 Mg Capsule, 50 MG PO DAILY, (Reported) Entered as Reported by: SREE MICHELLE on 07/01/17 0845 Sennosides/Docusate Sodium (Stimulant Laxative Plus Tablet) 8.6 Mg-50 Mg Tablet, 2 EA PO BID, (Reported) Entered as Reported by: MAHENDRA SANTOS on 12/21/21 154 Discontinued Medications Ascorbic Acid (Vitamin C) 500 Mg Tablet, 500 MG PO DAILY, (Reported) Entered as Reported by: MAHENDRA SANTOS on 12/21/21 154 Divalproex Sodium (Divalproex Sodium) 250 Mg Tablet.dr, 250 MG PO BID, (Reported) Entered as Reported by: MAHENDRA SANTOS on 12/21/211541 Levetiracetam (Levetiracetam) 1,000 Mg Tablet, 1,000 MG PO 1999, (Reported) Entered as Reported by: MAHENDRA SANTOS on 12/21/211541 Melatonin (Melatonin) 5 Mg Tablet, 5 MG PO 1999, (Reported) Entered as Reported by: MAHENDRA SANTOS on 12/21/211541 Pregabalin (Lyrica) 25 Mg Capsule, 25 MG PO HS, (Reported) Entered as Reported by: GIDEON CALLOWAY on 10/25/15 5998 Review of Systems Review of Systems Constitutional: see HPI EENTM: no symptoms reported Respiratory: no symptoms reported Cardiovascular: no symptoms reported Gastrointestinal: no symptoms reported Genitourinary: no symptoms reported Musculoskeletal: no symptoms reported Skin: no symptoms reported Psychiatric/Neurological: See HPI Past Ihfqwfv-Oqrbbe-Dovtpm Hx Immunizations Up To Date Tetanus Booster (TDap): Less than 5yrs PED Vaccines UTD: No Seasonal Allergies Seasonal Allergies: Yes Past Medical History Surgery/Hospitalization HX: PMH: MOOD DISORDER, DEPRESSION, SLEEP DISORDER, SEIZURES, CHILDHOOD POLIO, PALESTINIAN MEASLES, MR, CONSTIPATION Surgeries: Yes Gallbladder, Orthopedic Respiratory: No Currently Using CPAP: No Currently Using BIPAP: No Cardiac: No Neurological: Yes Developmental Disorder, Seizure Disorder Sexually Transmitted Disease: No HIV/AIDS: No Genitourinary: Yes Prostate Problems, UTI-Chronic Gastrointestinal: Yes (S/P MATILDE) Chronic Constipation, Chronic Diarrhea, Gall Bladder Disease Musculoskeletal: Yes Fractures, Contracture Endocrine: No HEENT: No Loss of Vision: Denies Hearing Impairment: Denies Cancer: No Psychosocial: Yes (MR, SEVERE ADAPTIVE BEHAVIOR DISORDER, CONVULSIONS, DELUSIONAL DISORDER) Anxiety Integumentary: No Blood Disorders: Yes (ANEMIA) Adverse Reaction/Blood Tranf: No Family Medical History PAST SURGICAL HISTORY: -SURGERY ON ALL LEFT TOES -EGD'S/COLONSCOPIES -RIGHT FEMUR FX/ORIF -PROSTATE SURGERY ADDITIONAL PMH: -POST POLIO SYNDROME WITH LEFT SIDED CONTRACTURES, 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 1.0oz. 81.628919mm; 28.66 BMI Method:Stated General Appearance: No Apparent Distress, WD/WN HEENT: PERRL/EOMI, TMs Normal, Normal ENT Inspection, Pharynx Normal Neck: Full Range of Motion, Normal Inspection, Non Tender, Supple Respiratory: Chest Non Tender, Lungs Clear, Normal Breath Sounds, No Accessory Muscle Use, No Respiratory Distress Cardiovascular: Regular Rate, Rhythm, No Edema, No Gallop, No JVD, No Murmur, Normal Peripheral Pulses Gastrointestinal: Normal Bowel Sounds, No Organomegaly, No Pulsatile Mass, Non Tender, Soft Back: Normal Inspection, No Vertebral Tenderness Extremity: Normal Capillary Refill, Normal Inspection, Normal Range of Motion, Non Tender, No Calf Tenderness Neurologic/Psychiatric: Alert Skin: Normal Color, Warm/Dry (patient awake and responds to questions, suprapubic catheter in place draining clear urine to BSB) Progress/Results/Core Measures Suspected Sepsis SIRS Temperature: Pulse: 94 Respiratory Rate: 16 Laboratory Tests 12/30/21 12:20: White Blood Count 6.0 Blood Pressure 128 /77 Mean: 94 Laboratory Tests 12/30/21 12:20: Creatinine 0.85, Platelet Count 196, Total Bilirubin 0.2 Results/Orders Lab Results Laboratory Tests Test 12/30/21 12:10 12/30/21 12:20 Range/Units Urine Color YELLOW Urine Clarity CLEAR Urine pH 6.0 5-9 Urine Specific [place] <=1.005 1.016-1.022 Urine Protein NEGATIVE NEGATIVE Urine Glucose (UA) NEGATIVE NEGATIVE Urine Ketones NEGATIVE NEGATIVE Urine Nitrite NEGATIVE NEGATIVE Urine Bilirubin NEGATIVE NEGATIVE Urine Urobilinogen 0.2 < = 1.0 MG/DL Urine Leukocyte Esterase 1+ H NEGATIVE Urine RBC (Auto) NEGATIVE NEGATIVE Urine RBC RARE /HPF Urine WBC 2-5 /HPF Urine Squamous Epithelial Cells RARE /HPF Urine Crystals NONE /LPF Urine Bacteria NEGATIVE /HPF Urine Casts NONE /LPF Urine Mucus NEGATIVE /LPF Urine Culture Indicated NO White Blood Count 6.0 4.3-11.0 10^3/uL Red Blood Count 3.60 L 4.30-5.52 10^6/uL Hemoglobin 11.6 L 13.3-17.7 g/dL Hematocrit 35 L 40-54 % Mean Corpuscular Volume 97 80-99 fL Mean Corpuscular Hemoglobin 32 25-34 pg Mean Corpuscular Hemoglobin Concent 33 32-36 g/dL Red Cell Distribution Width 13.9 10.0-14.5 % Platelet Count 196 130-400 10^3/uL Mean Platelet Volume 9.6 9.0-12.2 fL Immature Granulocyte % (Auto) 1 % Neutrophils (%) (Auto) 63 42-75 % Lymphocytes (%) (Auto) 23 12-44 % Monocytes (%) (Auto) 8 0-12 % Eosinophils (%) (Auto) 5 0-10 % Basophils (%) (Auto) 1 0-10 % Neutrophils # (Auto) 3.8 1.8-7.8 10^3/uL Lymphocytes # (Auto) 1.4 1.0-4.0 10^3/uL Monocytes # (Auto) 0.5 0.0-1.0 10^3/uL Eosinophils # (Auto) 0.3 0.0-0.3 10^3/uL Basophils # (Auto) 0.0 0.0-0.1 10^3/uL Immature Granulocyte # (Auto) 0.0 0.0-0.1 10^3/uL Sodium Level 139 135-145 MMOL/L Potassium Level 5.0 3.6-5.0 MMOL/L Chloride Level 104 98-107 MMOL/L Carbon Dioxide Level 25 21-32 MMOL/L Anion Gap 10 5-14 MMOL/L Blood Urea Nitrogen 26 H 7-18 MG/DL Creatinine 0.85 0.60-1.30 MG/DL Estimat Glomerular Filtration Rate 100 BUN/Creatinine Ratio 31 Glucose Level 80 70-105 MG/DL Calcium Level 8.8 8.5-10.1 MG/DL Corrected Calcium 9.4 8.5-10.1 MG/DL Total Bilirubin 0.2 0.1-1.0 MG/DL Aspartate Amino Transf (AST/SGOT) 44 H 5-34 U/L Alanine Aminotransferase (ALT/SGPT) 141 H 0-55 U/L Alkaline Phosphatase 399 H 40-136 U/L Total Protein 6.4 6.4-8.2 GM/DL Albumin 3.2 3.2-4.5 GM/DL Lipase 33 8-78 U/L Valproic Acid (Depakene) Level 59.1 50.0-100.0 UG/ML My Orders Orders - JAYDON CASILLAS APRN Cbc With Automated Diff (12/30/21 11:54) Comprehensive Metabolic Panel (12/30/21 11:54) Lipase (12/30/21 11:54) Iv/Invasive Line Insertion .IV INSERT (12/30/21 11:54) Ua Culture If Indicated (12/30/21 11:54) Valproic Acid (12/30/21 11:54) Vital Signs/I&O 12/30/21 11:37 Temp 34.6 Pulse 94 Resp 16 B/P (MAP) 128/77 (94) Pulse Ox 94 O2 Delivery Room Air Capillary Refill : Less Than 3 Seconds Blood Pressure Mean: 94 Progress Note : Progress Note Patient is nontoxic and well-hydrated on exam. Vital signs are relatively reassuring. Patient is somewhat hypothermic however this temperature was checked axillary. He has warm and dry skin. He is awake and answers questions appropriately although he is difficult to understand. His caregiver states he is much more like his baseline now compared to how he was earlier today when he was seemingly more sleepy and less responsive. Staff at the alf have not noticed any specific seizure activity but they do state he does have episodic periods of not responding like normal and then being very tired thereafter. His exam is overall reassuring without any focal abnormalities. Laboratory evaluation very unremarkable. Patient has no leukocytosis. Patient does have mild transaminitis that is markedly improved from his previous admission. Lipase is no longer elevated. Depakote levels are within therapeutic range. He is not hypoglycemic. He has remained awake for the entirety of his ED visit. No indication for further diagnostic studies or admission at this time. It is possible that patient may be having an increased frequency of [place] or partial seizures that could be causing the episodic symptomology. Discussed importance of close follow-up with PCP in 24 to 48 hours if possible. Strict return precautions for urgent symptomology discussed. Caregiver verbalized understanding. Departure Impression Primary Impression: Increasing frequency of seizure activity Additional Impression: Decreased alertness Disposition: 01 HOME, SELF-CARE Condition: Improved Departure-Patient Inst. Decision time for Depature: 13:00 Referrals: SETH CANALES DO (PCP/Family) Primary Care Physician Patient Instructions: Seizures, Adult (DC) Add. Discharge Instructions: Follow-up with PCP in the next 24-48 hours if possible. If symptoms markedly worsen please return to the ED for further evaluation. All discharge instructions reviewed with patient and/or family. Voiced understanding. JAYDON CASILLAS APRN Dec 30, 2021 11:57
[2021-12-30 12:17] LABS: BILIRUBIN,URINE NEGATIVE (NEGATIVE); CLARITY,URINE CLEAR; COLOR,URINE YELLOW; GLUCOSE, URINE (UA) NEGATIVE (NEGATIVE); KETONES,URINE NEGATIVE (NEGATIVE); LEUKOCYTE ESTERASE ,URINE 1+ (NEGATIVE); NITRITE,URINE NEGATIVE (NEGATIVE); PROTEIN,URINE NEGATIVE (NEGATIVE)
[2021-12-30 12:29] LABS: BASOPHILS % (AUTO) 1 % (0-10); EOSINOPHILS # (AUTO) 0.3 10^3/uL (0.0-0.3); EOSINOPHILS % (AUTO) 5 % (0-10); HEMATOCRIT 35 % (40-54); HEMOGLOBIN 11.6 g/dL (13.3-17.7); LYMPHOCYTES # (AUTO) 1.4 10^3/uL (1.0-4.0); LYMPHOCYTES % (AUTO) 23 % (12-44); MEAN CORPUSCULAR HEMOGLOBIN 32 pg (25-34); MEAN CORPUSCULAR HGB CONC 33 g/dL (32-36); MEAN CORPUSCULAR VOLUME 97 fL (80-99); MEAN PLATELET VOLUME 9.6 fL (9.0-12.2); MONOCYTES # (AUTO) 0.5 10^3/uL (0.0-1.0); MONOCYTES % (AUTO) 8 % (0-12); NEUTROPHILS # (AUTO) 3.8 10^3/uL (1.8-7.8); NEUTROPHILS % (AUTO) 63 % (42-75); PLATELET COUNT 196 10^3/uL (130-400)
[2021-12-30 12:29] LABS: BACTERIA,URINE NEGATIVE /HPF; RBC,URINE RARE /HPF; SQUAMOUS EPITHELIAL CELL,UR RARE /HPF
[2021-12-30 12:40] LABS: ALBUMIN 3.2 GM/DL (3.2-4.5)
[2021-12-30 12:41] LABS: CALCIUM 8.8 MG/DL (8.5-10.1)
[2021-12-30 12:43] LABS: TOTAL PROTEIN 6.4 GM/DL (6.4-8.2)
[2021-12-30 12:44] LABS: BILIRUBIN,TOTAL 0.2 MG/DL (0.1-1.0)
[2021-12-30 12:46] LABS: CREATININE SERUM 0.85 MG/DL (0.60-1.30)
[2021-12-30 12:55] LABS: VALPROIC ACID 59.1 UG/ML (50.0-100.0)
[2021-12-30 13:16] VITALS: BP 128/77
== END 2021-12-30 13:17 | disposition home or self-care (01) ==
LOC: EDUNIT# 11:07 → ER 11:09
DX: G40.909 Epilepsy, unspecified, not intractable, without status epilepticus (principal); R74.01 Elevation of levels of liver transaminase levels
CPT/HCPCS: 36415; 80053; 80164; 81000; 83690; 85025

== ENCOUNTER 2022-01-07 12:37 | Inpatient (IN) | payer MEDICARE, MEDICAID ==
[~2022-01-07] VITALS: Ht 175.3 cm; Wt 80.0 kg
[2022-01-07] MEDS ORDERED: DEXTROSE 50% 50 ML (IMS) SYR IV ONE (13:15)
[2022-01-07 13:20] LABS: BASOPHILS % (AUTO) 1 % (0-10); EOSINOPHILS # (AUTO) 0.1 10^3/uL (0.0-0.3); EOSINOPHILS % (AUTO) 2 % (0-10); HEMATOCRIT 38 % (40-54); HEMOGLOBIN 12.4 g/dL (13.3-17.7); LYMPHOCYTES # (AUTO) 1.3 10^3/uL (1.0-4.0); LYMPHOCYTES % (AUTO) 18 % (12-44); MEAN CORPUSCULAR HEMOGLOBIN 32 pg (25-34); MEAN CORPUSCULAR HGB CONC 32 g/dL (32-36); MEAN CORPUSCULAR VOLUME 99 fL (80-99); MEAN PLATELET VOLUME 10.1 fL (9.0-12.2); MONOCYTES # (AUTO) 0.7 10^3/uL (0.0-1.0); MONOCYTES % (AUTO) 10 % (0-12); NEUTROPHILS # (AUTO) 5.2 10^3/uL (1.8-7.8); NEUTROPHILS % (AUTO) 70 % (42-75); PLATELET COUNT 248 10^3/uL (130-400); WHITE BLOOD COUNT 7.5 10^3/uL (4.3-11.0)
[2022-01-07 13:22] LABS: ALBUMIN 3.3 GM/DL (3.2-4.5)
[2022-01-07 13:23] LABS: POTASSIUM 5.3 MMOL/L (3.6-5.0)
[2022-01-07 13:24] LABS: CALCIUM 9.2 MG/DL (8.5-10.1)
[2022-01-07 13:25] LABS: TOTAL PROTEIN 6.8 GM/DL (6.4-8.2)
[2022-01-07 13:27] LABS: BILIRUBIN,TOTAL 0.6 MG/DL (0.1-1.0)
[2022-01-07 13:29] LABS: CREATININE SERUM 1.15 MG/DL (0.60-1.30)
[2022-01-07 13:37] LABS: VALPROIC ACID 2.3 UG/ML (50.0-100.0)
[2022-01-07 13:45] LABS: BILIRUBIN,URINE NEGATIVE (NEGATIVE); CLARITY,URINE CLEAR; COLOR,URINE YELLOW; GLUCOSE, URINE (UA) NEGATIVE (NEGATIVE); KETONES,URINE 2+ (NEGATIVE); LEUKOCYTE ESTERASE ,URINE 1+ (NEGATIVE); NITRITE,URINE POSITIVE (NEGATIVE); PH,URINE 5.5 (5-9); PROTEIN,URINE NEGATIVE (NEGATIVE)
[2022-01-07] MEDS ORDERED: NS IV 1000 ML 1,000 ML IV SCH (13:45)
--- NOTE | 2022-01-07 13:46 | ED General ---
General Chief Complaint: COVID19 Suspect/Confirmed Stated Complaint: COUGH Nursing Triage Note: PT TO ED WITH CAREGIVER WITH C/O DEEP COUGH AND DECREASED APPETITE SINCE FRIDAY. PT REPORTS HE IS NORMALLY A TWO PERSON ASSIST, BUT IS ABLE TO HELP STAND. PT HAS NOT BEEN TALKING MUCH OVER THE LAST FEW DAYS AND STAYED IN BED YESTERDAY AND TODAY. Source of Information: Patient, Family, Long-Term Records Exam Limitations: Physical Impairments History of Present Illness Date Seen by Provider: Jan 07, 2022 Time Seen by Provider: 12:52 Initial Comments This 61-year-old gentleman is a resident of a [facility] senior living and is brought to the emergency room by a staff member due to a deep productive cough and lethargy over the past 48 hours. He is not responding as usual and is not talking. No fever, vomiting or diarrhea. He is severely debilitated from polio and other comorbidities. BS was 45 during assessment and level of alertne ss improved after D50. He was still not at baseline according to staff. He had an admission and ER visit in December for altered mental status and frequent seizures. He was taken off of Depakote and placed on higher doses of Keppra. He currently takes Keppra 1000 mg twice daily. No seizure activity has been observed the last 2 days. He has a suprapubic catheter. Dr. Noe is his primary care provider. There is bruising noted on his left lateral hip but staff is not aware of any trauma. Allergies and Home Medications Allergies Coded Allergies: lorazepam (Verified Adverse Reaction, Intermediate, HYPERACTIVITY, 12/07/21) Patient Home Medication List Home Medication List Reviewed: Yes Acetaminophen (Acetaminophen) 500 Mg Tablet, 500 MG PO Q6H PRN for PAIN-MILD (1- 4) OR TEMPATURE, (Reported) Entered as Reported by: HAROLDO STONE on 06/03/16 1413 Amoxicillin/Potassium Clav (Augmentin 500-125 Tablet) 500 Mg-125 Mg Tablet, 1 EACH PO BID Prescribed by: SETH NOE on 12/24/21 0832 Aripiprazole (Aripiprazole) 10 Mg Tablet, 10 MG PO 1999, (Reported) Entered as Reported by: MAHENDRA SANTOS on 12/21/21 1542 Bismuth Subsalicylate (Pepto-Bismol) 262 Mg/15 Ml Oral.susp, PO UD PRN for UPSET STOMACH/INDIGESTION, (Reported) Entered as Reported by: SREE MICHELLE on 07/01/17 08 Calamine/Zinc Oxide (Calamine Lotion) 177 Ml Lotion, TP UD PRN for RASH, (Reported) Entered as Reported by: SREE MICHELLE on 07/01/17 08 Ciclopirox (Ciclopirox) 8 % Solution, 1 APPLIC TP 2000, (Reported) Entered as Reported by: MAHENDRA SANTOS on 12/21/21 154 Citalopram Hydrobromide (Citalopram HBr) 40 Mg Tablet, 40 MG PO DAILY, (Reported) Entered as Reported by: MAHENDRA SANTOS on 12/21/211541 Cranberry Extract (Cranberry) 425 Mg Capsule, 425 MG PO BID, (Reported) Entered as Reported by: MAHENDRA SANTOS on 12/21/211541 Divalproex Sodium (Depakote) 500 Mg Tablet.dr, 500 MG PO BID Prescribed by: SETH NOE on 12/24/21 08 Fluticasone Propionate (Fluticasone Propionate) [address] [place] [address]susp, 1 SPRAY NS BID, (Reported) Entered as Reported by: SREE MICHELLE on 07/01/17 08 Guaifenesin/D-Methorphan Hb/PE (Robitussin Cough-Cold Cf Liq) 118 Ml Liquid, PO UD PRN for COUGH/CONGESTION, (Reported) Entered as Reported by: SREE MICHELLE on 07/01/17 08 Hydrocortisone (Hydrocortisone) 1 % Cream..g., 1 APPLIC TP UD PRN for RASH AND ITCHING, (Reported) Entered as Reported by: MAHENDRA SANTOS on 12/21/21 154 Ketoconazole (Ketoconazole) 2 % Shampoo, 1 APPLIC TOP FRI,FRI, (Reported) Entered as Reported by: MAHENDRA SANTOS on 12/21/21 154 L. Rhamnosus GG/Inulin (Culturelle Capsule) 10 Billion Cell-200 Mg Cap.sprink, 1 CAP PO DAILY, (Reported) Entered as Reported by: SREE MICHELLE on 07/01/17 08 Levetiracetam (Levetiracetam) 500 Mg Tablet, 500 MG PO BID Prescribed by: SETH NOE on 12/24/21 0832 Loratadine (Loratadine) 10 Mg Tablet, 10 MG PO 1999, (Reported) Entered as Reported by: SREE MICHELLE on 07/01/17 0845 Menthol (Gold Rosario Medicated Body) 0.8 % Powder, 1 APPLIC TP UD PRN for FOOT ODOR AND WETNESS, (Reported) Entered as Reported by: MAHENDRA SANTOS on 12/21/21 154 Metronidazole (Metronidazole) 0.75 % Lotion, 1 APPLIC TOP 1999, (Reported) Entered as Reported by: MAHENDRA SANTOS on 12/21/21 154 Mirtazapine (Mirtazapine) 15 Mg Tablet, 15 MG PO 1999, (Reported) Entered as Reported by: MAHENDRA SANTOS on 12/21/211541 Naphazoline HCl/Pheniramine (Opcon-A Eye Drops) 0.52601 %-0.315 % Drops, 1-2 DROPS OU UD PRN for REDNESS/SWELLING FROM ALLERGY, (Reported) Entered as Reported by: SREE MICHELLE on 07/01/17 0852 Neomycin Dinh/Bacitrac Zn/Poly (Gnp Triple Antibiotic Ointment) 28.4 Gm Oint...g., TP UD PRN for MINOR CUTS, SCRAPES, AND SORES, (Reported) Entered as Reported by: SREE MICHELLE on 07/01/17 0852 Nystatin (Nystatin) 100,000 Unit/Gram Cream..g., 1 APPLIC TOP BID PRN for SCALING RASH, (Reported) Entered as Reported by: MAHENDRA SANTOS on 12/21/21 154 Pnv with Ca,No.72/Iron/FA ( Plus Tablet) 27 Mg Iron-1 Mg Tablet, 1 EA PO DAILY, (Reported) Entered as Reported by: MAHENDRA SANTOS on 12/21/21 154 Polyethylene Glycol 3350 (Polyethylene Glycol 3350) 17 Gm Powd.pack, 17 GM PO BID, (Reported) Entered as Reported by: IRASEMA HUMPHREY on 09/28/18 1428 Prednisolone Acetate (Prednisolone Acetate) 1 % Drops.susp, 1 DROP OS QID, (Reported) Entered as Reported by: MAHENDRA SANTOS on 12/21/21 1542 Pregabalin (Lyrica) 50 Mg Capsule, 50 MG PO DAILY, (Reported) Entered as Reported by: SREE MICHELLE on 07/01/17 0845 Sennosides/Docusate Sodium (Stimulant Laxative Plus Tablet) 8.6 Mg-50 Mg Tablet, 2 EA PO BID, (Reported) Entered as Reported by: MAHENDRA SANTOS on 12/21/21 1542 Review of Systems Review of Systems Constitutional: see HPI EENTM: no symptoms reported Respiratory: see HPI Cardiovascular: no symptoms reported Gastrointestinal: other (Poor oral intake) Genitourinary: see HPI Musculoskeletal: no symptoms reported Skin: no symptoms reported Psychiatric/Neurological: See HPI Hematologic/Lymphatic: No Symptoms Reported Immunological/Allergic: no symptoms reported Past Lagpyih-Iwobls-Dsfhaz Hx Patient Social History Tobacco Use?: No Use of E-Cig and/or Vaping dev: No Substance use?: No Alcohol Use?: No Pt feels they are or have been: No Immunizations Up To Date Tetanus Booster (TDap): Less than 5yrs PED Vaccines UTD: No Influenza Vaccine Up-to-Date: Yes; Up-to-Date Seasonal Allergies Seasonal Allergies: Yes Past Medical History Surgery/Hospitalization HX: PMH: MOOD DISORDER, DEPRESSION, SLEEP DISORDER, SEIZURES, CHILDHOOD POLIO, KINYARWANDA MEASLES, MR, CONSTIPATION Surgeries: Yes Eye Surgery (Cataracts), Gallbladder, Orthopedic Respiratory: No Currently Using CPAP: No Currently Using BIPAP: No Cardiac: No Neurological: Yes (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) Developmental Disorder, Seizure Disorder Sexually Transmitted Disease: No HIV/AIDS: No Genitourinary: Yes Prostate Problems, UTI-Chronic Gastrointestinal: Yes (S/P MATILDE) Chronic Constipation, Chronic Diarrhea, Gall Bladder Disease Musculoskeletal: Yes Fractures, Contracture Endocrine: No HEENT: No Loss of Vision: Denies Hearing Impairment: Denies Cancer: No Psychosocial: Yes (MR, SEVERE ADAPTIVE BEHAVIOR DISORDER, CONVULSIONS, DELUSIONAL DISORDER) Anxiety Integumentary: No Blood Disorders: Yes (ANEMIA) Adverse Reaction/Blood Tranf: No Family Medical History PAST SURGICAL HISTORY: -SURGERY ON ALL LEFT TOES -EGD'S/COLONSCOPIES -RIGHT FEMUR FX/ORIF -PROSTATE SURGERY ADDITIONAL PMH: -POST POLIO SYNDROME WITH LEFT SIDED CONTRACTURES, 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 1.0oz. 81.603771rv; 26.00 BMI Method:Stated General Appearance: No Apparent Distress, Other (Lethargic) HEENT: PERRL/EOMI, Normal ENT Inspection, Pharynx Normal, Other (Strabismus) Neck: Normal Inspection Respiratory: No Accessory Muscle Use, No Respiratory Distress, Decreased Breath Sounds, Rhonci; No Wheezing Cardiovascular: Regular Rate, Rhythm, No Edema, Normal Peripheral Pulses Gastrointestinal: Normal Bowel Sounds, Non Tender, Soft Extremity: Non Tender, No Pedal Edema, Other (Bruising on the left hip) Neurologic/Psychiatric: Other (Decreased level of alertness. Minimal movement of extremities. Alertness improving after D50. Severe debility is at baseline from history of polio and measles) Skin: Normal Color, Warm/Dry, Ecchymosis (left hip) Progress/Results/Core Measures Suspected Sepsis SIRS Temperature: Pulse: 83 Respiratory Rate: 13 Laboratory Tests 01/07/22 13:00: White Blood Count 7.5 Blood Pressure 123 /80 Mean: 94 Laboratory Tests 01/07/22 13:00: Creatinine 1.15, INR Comment 1.0, Platelet Count 248, Total Bilirubin 0.6 Results/Orders Lab Results Laboratory Tests Test 01/07/22 13:00 01/07/22 13:05 01/07/22 13:14 01/07/22 13:46 Range/Units White Blood Count 7.5 4.3-11.0 10^3/uL Red Blood Count 3.90 L 4.30-5.52 10^6/uL Hemoglobin 12.4 L 13.3-17.7 g/dL Hematocrit 38 L 40-54 % Mean Corpuscular Volume 99 80-99 fL Mean Corpuscular Hemoglobin 32 25-34 pg Mean Corpuscular Hemoglobin Concent 32 32-36 g/dL Red Cell Distribution Width 14.4 10.0-14.5 % Platelet Count 248 130-400 10^3/uL Mean Platelet Volume 10.1 9.0-12.2 fL Immature Granulocyte % (Auto) 1 % Neutrophils (%) (Auto) 70 42-75 % Lymphocytes (%) (Auto) 18 12-44 % Monocytes (%) (Auto) 10 0-12 % Eosinophils (%) (Auto) 2 0-10 % Basophils (%) (Auto) 1 0-10 % Neutrophils # (Auto) 5.2 1.8-7.8 10^3/uL Lymphocytes # (Auto) 1.3 1.0-4.0 10^3/uL Monocytes # (Auto) 0.7 0.0-1.0 10^3/uL Eosinophils # (Auto) 0.1 0.0-0.3 10^3/uL Basophils # (Auto) 0.0 0.0-0.1 10^3/uL Immature Granulocyte # (Auto) 0.1 0.0-0.1 10^3/uL Prothrombin Time 13.3 12.2-14.7 SEC INR Comment 1.0 0.8-1.4 Activated Partial Thromboplast Time 39 H 24-35 SEC Urine Color YELLOW Urine Clarity CLEAR Urine pH 5.5 5-9 Urine Specific [place] 1.020 1.016-1.022 Urine Protein NEGATIVE NEGATIVE Urine Glucose (UA) NEGATIVE NEGATIVE Urine Ketones 2+ H NEGATIVE Urine Nitrite POSITIVE H NEGATIVE Urine Bilirubin NEGATIVE NEGATIVE Urine Urobilinogen 0.2 < = 1.0 MG/DL Urine Leukocyte Esterase 1+ H NEGATIVE Urine RBC (Auto) NEGATIVE NEGATIVE Urine RBC NONE /HPF Urine WBC 2-5 /HPF Urine Squamous Epithelial Cells NONE /HPF Urine Crystals NONE /LPF Urine Bacteria FEW H /HPF Urine Casts NONE /LPF Urine Mucus NEGATIVE /LPF Urine Culture Indicated YES Sodium Level 140 135-145 MMOL/L Potassium Level 5.3 H 3.6-5.0 MMOL/L Chloride Level 103 98-107 MMOL/L Carbon Dioxide Level 22 21-32 MMOL/L Anion Gap 15 H 5-14 MMOL/L Blood Urea Nitrogen 25 H 7-18 MG/DL Creatinine 1.15 0.60-1.30 MG/DL Estimat Glomerular Filtration Rate 73 BUN/Creatinine Ratio 22 Glucose Level 43 *L 70-105 MG/DL Calcium Level 9.2 8.5-10.1 MG/DL Corrected Calcium 9.8 8.5-10.1 MG/DL Magnesium Level 1.7 1.6-2.4 MG/DL Total Bilirubin 0.6 0.1-1.0 MG/DL Aspartate Amino Transf (AST/SGOT) 37 H 5-34 U/L Alanine Aminotransferase (ALT/SGPT) 56 H 0-55 U/L Alkaline Phosphatase 297 H 40-136 U/L Myoglobin 405.9 H 10.0-92.0 NG/ML Troponin I < 0.028 <0.028 NG/ML C-Reactive Protein High Sensitivity 3.97 H 0.00-0.50 MG/DL Total Protein 6.8 6.4-8.2 GM/DL Albumin 3.3 3.2-4.5 GM/DL Valproic Acid (Depakene) Level 2.3 L 50.0-100.0 UG/ML Glucometer 45 *L 154 H 70-110 MG/DL Influenza Type A (RT-PCR) Not Detected Not Detecte Influenza Type B (RT-PCR) Not Detected Not Detecte SARS-CoV-2 RNA (RT-PCR) Not Detected Not Detecte My Orders Orders - CARMEN PAVON MD D50w (Emergency) Syringe (Dextrose 50% 5 (01/07/22 13:15) Cbc With Automated Diff (01/07/22 13:13) Comprehensive Metabolic Panel (01/07/22 13:13) Hs C Reactive Protein (01/07/22 13:13) Ua Culture If Indicated (01/07/22 13:13) Valproic Acid (01/07/22 13:13) Covid 19 Inhouse Test (01/07/22 13:14) Influenza A And B By Pcr (01/07/22 13:14) Chest 1 View, Ap/Pa Only (01/07/22 13:19) Pelvis With Left Hip 2-3 Views (01/07/22 13:19) Accucheck Stat ONCE (01/07/22 13:43) Accucheck Stat ONCE (01/07/22 13:43) Ns Iv 1000 Ml (Sodium Chloride 0.9%) (01/07/22 13:45) Magnesium (01/07/22 13:43) Ekg Tracing (01/07/22 13:43) Myoglobin Serum (01/07/22 13:43) Protime With Inr (01/07/22 13:43) Partial Thromboplastin Time (01/07/22 13:43) Monitor-Rhythm Ecg Trace Only (01/07/22 13:43) Lipid Panel (01/08/22 06:00) Troponin I [place] (01/07/22 13:43) Urine Culture (01/07/22 13:00) D5 1/2 Ns 1000 Ml Iv Solution (Dextrose (01/07/22 14:15) Ceftriaxone 1 Gm Pre-Mix (Rocephin 1 Gm (01/07/22 15:34) Medications Given in ED Current Medications Medications Dose Ordered Sig/Ewelina Route Start Time Stop Time Status Last Admin Dose Admin Dextrose 50 ml ONCE ONCE IV 01/07/22 13:15 01/07/22 13:16 DC 01/07/22 13:11 50 ML Dextrose/Sodium Chloride 1,000 ml @ 200 mls/hr Q5H ONCE IV 01/07/22 14:15 01/07/22 19:14 01/07/22 14:34 200 MLS/HR Vital Signs/I&O 01/07/22 12:50 Temp 35.9 Pulse 83 Resp 13 B/P (MAP) 123/80 (94) Pulse Ox 94 O2 Delivery Room Air Capillary Refill : Less Than 3 Seconds Blood Pressure Mean: 94 Progress Note : Progress Note Blood sugar was checked on initial assessment, and he was found to be hypoglycemic. D50 was administered with notable improvement in his mental status. However, he was still not back to baseline. No definite source of infection was identified but urinalysis was weakly suggestive of pyuria. Patient also had a productive cough without evidence of pneumonia on chest x- ray. Rocephin was given for these possible etiologies of his altered mental status. He was hydrated with a liter of normal saline followed by D5 half- normal saline at 200 mL/h. Admission was appropriate to monitor the status of his blood sugars and mental status during treatment. Patient also complained of chest pain to nursing staff. He reported this started at home. Troponin and EKG were unremarkable. ECG Initial ECG Impression Date: Jan 07, 2022 Initial ECG Impression Time: 14:32 Initial ECG Rate: 78 Initial ECG Rhythm: Normal Sinus Initial ECG Intervals: Normal Initial ECG Impression: Normal Comment Normal sinus rhythm with no ST elevation or depression. No abnormal intervals or axis deviation. Diagnostic Imaging Diagonstic Imaging: Xray Plain Films/CT/US/NM/MRI: chest Comments NAME: [facility] REC#: [id number] PT STATUS: REG ER : 1960 PHYSICIAN: CARMEN PAVON MD ADMIT DATE: 01/07/22/ER Signed Date of Exam:01/07/22 CHEST 1 VIEW, AP/PA ONLY Indication: Cough Portable chest 2:20 PM Heart size and pulmonary vascularity are normal. Lungs are clear. There are no effusions or pneumothoraces. IMPRESSION: No acute abnormalities in the chest Dictated by: Dictated on workstation # [id number] Dict: 01/07/22 1428 Trans: 01/07/22 142 TCB [id number] Interpreted by: ROSA RIGGINS MD Electronically signed by: ROSA RIGGINS MD 01/07/22 1425 Diagonstic Imaging: Xray Plain Films/CT/US/NM/MRI: pelvis, hip Comments NAME: [facility] REC#: [id number] PT STATUS: REG ER : 1960 PHYSICIAN: CARMEN PAVON MD ADMIT DATE: 01/07/22/ER Signed Date of Exam:01/07/22 PELVIS WITH LEFT HIP 2-3 VIEWS INDICATION: Left hip pain AP view pelvis and 2 views of left hip show postsurgical changes from internal fixation of the right hip with chronic superior subluxation. There are degenerative changes of left hip with flattening of the dome of left femoral head. There is no acute fracture seen. IMPRESSION: No acute abnormality seen in the pelvis or left hip. Dictated by: Dictated on workstation # [id number] Dict: 01/07/22 1435 Trans: 01/07/22 1455 CVB [id number] Interpreted by: ROSA RIGGINS MD Electronically signed by: ROSA RIGGINS MD 01/07/22 1450 Departure Communication (Admissions) Time/Spoke to Admitting Phy: 15:35 Dr. Noe Impression Primary Impression: Altered mental status Qualified Codes: R41.82 - Altered mental status, unspecified Additional Impressions: Cough Qualified Codes: R05.1 - Acute cough Hypoglycemia Urinary tract infection Qualified Codes: N39.0 - Urinary tract infection, site not specified Chest pain Qualified Codes: R07.9 - Chest pain, unspecified Disposition: ADMITTED INPATIENT Condition: Improved Admissions Decision to Admit Reason: Admit from ER (General) Decision to Admit/Date: Jan 07, 2022 Time/Decision to Admit Time: 15:35 Departure-Patient Inst. Referrals: SETH NOE DO (PCP) Primary Care Physician Copy Copies To 1: SETH NOE JOSHUA T MD Jan 07, 2022 13:46
[2022-01-07 13:58] LABS: BACTERIA,URINE FEW /HPF; PROTHROMBIN TIME PATIENT 13.3 SEC (12.2-14.7)
[2022-01-07 14:05] LABS: MAGNESIUM 1.7 MG/DL (1.6-2.4)
[2022-01-07] MEDS ORDERED: D5 1/2 NS 1000 ML IV SOLUTION 1,000 ML IV ONE (14:15)
--- NOTE | 2022-01-07 14:30 | Diagnostic Imaging Report ---
Indication: Cough Portable chest 2:20 PM Heart size and pulmonary vascularity are normal. Lungs are clear. There are no effusions or pneumothoraces. IMPRESSION: No acute abnormalities in the chest Dictated by: Dictated on workstation # [id number]
--- NOTE | 2022-01-07 14:39 | Diagnostic Imaging Report ---
INDICATION: Left hip pain AP view pelvis and 2 views of left hip show postsurgical changes from internal fixation of the right hip with chronic superior subluxation. There are degenerative changes of left hip with flattening of the dome of left femoral head. There is no acute fracture seen. IMPRESSION: No acute abnormality seen in the pelvis or left hip. Dictated by: Dictated on workstation # [id number]
[2022-01-07] MEDS ORDERED: cefTRIAXone 1 GM PRE-MIX 50 ML IV STA (15:34)
[2022-01-07 17:00] VITALS: BP 138/80
[2022-01-07] MEDS ORDERED: RT-ALBUTEROL SULF 2.5 MG/3 ML PRE-MIX VIAL INH PRN (17:00)
[2022-01-07 17:11] VITALS: BP 123/80
[2022-01-07] MEDS ORDERED: ONDANSETRON 4 MG/2 ML (SDV) Z0FRAN IV PRN (17:30)
[2022-01-07] MEDS: LEVETIRACETAM 1,000 MG/NS 100 ML IVPB IV SCH ×2 (18:48)
[2022-01-07 19:16] VITALS: BP 160/91
[2022-01-07] MEDS: RT-ALBUTEROL SULF 2.5 MG/3 ML PRE-MIX VIAL INH SCH (20:33)
[2022-01-08] VITALS (7 sets, daily range): BP systolic 93–159; BP diastolic 54–89
[2022-01-08] MEDS: RT-ALBUTEROL SULF 2.5 MG/3 ML PRE-MIX VIAL INH SCH ×4 (02:44→21:45)
[2022-01-08] MEDS: D5 1/2 NS 1000 ML IV SOLUTION 1,000 ML IV SCH ×6 (03:03→23:09)
[2022-01-08 05:51] LABS: BASOPHILS % (AUTO) 1 % (0-10); EOSINOPHILS # (AUTO) 0.1 10^3/uL (0.0-0.3); EOSINOPHILS % (AUTO) 3 % (0-10); HEMATOCRIT 34 % (40-54); HEMOGLOBIN 11.1 g/dL (13.3-17.7); LYMPHOCYTES # (AUTO) 1.1 10^3/uL (1.0-4.0); LYMPHOCYTES % (AUTO) 25 % (12-44); MEAN CORPUSCULAR HEMOGLOBIN 32 pg (25-34); MEAN CORPUSCULAR HGB CONC 33 g/dL (32-36); MEAN CORPUSCULAR VOLUME 97 fL (80-99); MEAN PLATELET VOLUME 9.8 fL (9.0-12.2); MONOCYTES # (AUTO) 0.6 10^3/uL (0.0-1.0); MONOCYTES % (AUTO) 14 % (0-12); NEUTROPHILS # (AUTO) 2.6 10^3/uL (1.8-7.8); NEUTROPHILS % (AUTO) 57 % (42-75); PLATELET COUNT 210 10^3/uL (130-400); WHITE BLOOD COUNT 4.6 10^3/uL (4.3-11.0)
[2022-01-08] MEDS: LEVETIRACETAM 1,000 MG/NS 100 ML IVPB IV SCH ×4 (05:55→17:42)
[2022-01-08 05:57] LABS: POTASSIUM 4.5 MMOL/L (3.6-5.0)
[2022-01-08 05:59] LABS: CALCIUM 8.8 MG/DL (8.5-10.1)
[2022-01-08 06:03] LABS: CREATININE SERUM 0.96 MG/DL (0.60-1.30)
[2022-01-08] MEDS: CEFEPIME 1,000 MG/NS 50 ML IVPB IV SCH ×6 (08:09→20:13)
--- NOTE | 2022-01-08 08:51 | Diagnostic Imaging Report ---
INDICATION: Cough, upper respiratory infection. UTI EXAMINATION: Chest 01/08/2022 COMPARISON: 01/07/2022. FINDINGS: The heart is stable. Pulmonary vasculature unremarkable. There are no infiltrates or effusions. No pneumothorax. IMPRESSION: 1. Unremarkable chest. Dictated by: Dictated on workstation # [id number]
[2022-01-08] MEDS ORDERED: PREG25CA19 PO (11:33)
[2022-01-08] MEDS ORDERED: WITC1MED3 TP (11:33)
[2022-01-08] MEDS ORDERED: ASCO-262 PO (11:33)
[2022-01-08] MEDS ORDERED: LAMO100T5 PO (11:52)
[2022-01-08] MEDS ORDERED: LEVE10006 PO (12:01)
[2022-01-08] MEDS ORDERED: PANTOPRAZOLE 40 MG (PROTONIX) VIAL IV NR (13:15)
--- NOTE | 2022-01-08 14:15 | Speech Therapy Progress Note ---
Therapy Progress Note The clinician received contact from Radiology regarding a modified barium swallow for this patient. At this time, speech pathology does not have an order for the modified (two orders are placed at the time of a modified barium swallow- one for radiology and one for speech pathology). The RN for the patient was contacted and stated the physician does request a modified barium swallow, not a clinical bedside swallowing evaluation. The speech pathologist requested placement of an order for speech pathology to complete the modified barium swallow. Additionally, speech pathology scheduled the evaluation for 929 on 01/09/2022 (first available). As the patient will not be evaluated at bedside by the clinician, if the patient is inappropriate for completion (lethargy, decreased cooperation, agitation, etc), please contact the speech pathologist for rescheduling. Thank you. IRASEMA MCKEON Jan 08, 2022 14:15
[2022-01-08] MEDS ORDERED: cefTRIAXone 1 GM/50 ML (PRE-MIX) IV SCH (17:00)
--- NOTE | 2022-01-08 19:08 | History & Physical ---
History of Present Illness History of Present Illness Reason for visit/HPI This is a 61 year old developmentally disabled male with a history of seizure disorder who was brought to the emergency room by data support specialist from his fdc due to lethargy and cough for 48hrs. He was noted to be hypoglycemic with a blood sugar of 43. He was also found to be dehydrated with a UTI and URI. The staff reports that he does cough a lot with eating and may have had an asp iration episode a few nights ago while eating in bed. He was given IV dextrose in the emergency room adn will be admitted on IVFs of D51/2NS. He will also be treated with cefepime for both UTI and URI etiology. His flu and COVID swabs are negative. Date of Admission Jan 07, 2022 at 15:42 Date Seen by a Provider: Jan 08, 2022 Time Seen by a Provider: 12:45 I consulted on this patient on 01/08/22 19:02 Attending Physician Seth Noe DO Admitting Physician Admitting Physician: Seth Noe DO Attending Physician: Seth Noe DO Consult Allergies and Home Medications Allergies Coded Allergies: lorazepam (Verified Adverse Reaction, Intermediate, HYPERACTIVITY, 12/07/21) Patient Home Medication List Home Medication List Reviewed: Yes Acetaminophen (Acetaminophen) 500 Mg Tablet, 500 MG PO Q6H PRN for PAIN-MILD (1- 4) OR TEMPATURE, (Reported) Entered as Reported by: HAROLDO STONE on 06/03/16 1413 Last Action: Reviewed Aripiprazole (Aripiprazole) 10 Mg Tablet, 10 MG PO 2100, (Reported) Entered as Reported by: MAHENDRA SANTOS on 12/21/21 1542 Last Action: Reviewed Ascorbate Calcium (Vitamin C) 500 Mg Tablet, 500 MG PO DAILY, (Reported) Entered as Reported by: MAHENDRA SANTOS on 01/08/22 1133 Last Action: Reviewed Bismuth Subsalicylate (Pepto-Bismol) 262 Mg/15 Ml Oral.susp, PO UD PRN for UPSET STOMACH/INDIGESTION, (Reported) Entered as Reported by: SREE MICHELLE on 07/01/17 0808 Last Action: Reviewed Calamine/Zinc Oxide (Calamine Lotion) 177 Ml Lotion, TP UD PRN for RASH, (Reported) Entered as Reported by: SREE MICHELLE on 07/01/17844 Last Action: Reviewed Ciclopirox (Ciclopirox) 8 % Solution, 1 APPLIC TP 2100, (Reported) Entered as Reported by: MAHENDRA SANTOS on 12/21/211541 Last Action: Reviewed Citalopram Hydrobromide (Citalopram HBr) 40 Mg Tablet, 40 MG PO DAILY, (Reported) Entered as Reported by: MAHENDRA SANTOS on 12/21/211541 Last Action: Reviewed Cranberry Extract (Cranberry) 425 Mg Capsule, 425 MG PO BID, (Reported) Entered as Reported by: MAHENDRA SANTOS on 12/21/211541 Last Action: Reviewed Fluticasone Propionate (Fluticasone Propionate) 16 Gm [place].susp, 1 SPRAY NS BID, (Reported) Entered as Reported by: SREE MICHELLE on 07/01/17844 Last Action: Reviewed Guaifenesin/D-Methorphan Hb/PE (Robitussin Cough-Cold Cf Liq) 118 Ml Liquid, PO UD PRN for COUGH/CONGESTION, (Reported) Entered as Reported by: SREE MICHELLE on 07/01/17851 Last Action: Reviewed Hydrocortisone (Hydrocortisone) 1 % Cream..g., 1 APPLIC TP UD PRN for RASH AND ITCHING, (Reported) Entered as Reported by: MAHENDRA SANTOS on 12/21/211541 Last Action: Reviewed Ketoconazole (Ketoconazole) 2 % Shampoo, 1 APPLIC TOP TWICE WEEKLY, (Reported) Entered as Reported by: MAHENDRA SANTOS on 12/21/211541 Last Action: Reviewed L. Rhamnosus GG/Inulin (Culturelle Capsule) 10 Billion Cell-200 Mg Cap.sprink, 1 CAP PO DAILY, (Reported) Entered as Reported by: SREE MICHELLE on 07/01/17844 Last Action: Reviewed Lamotrigine (Lamotrigine) 100 Mg Tablet, 100 MG PO DAILY, (Reported) Entered as Reported by: MAHENDRA SANTOS on 01/08/221151 Last Action: Reviewed Levetiracetam (Levetiracetam) 1,000 Mg Tablet, 1,000 MG PO BID, (Reported) Entered as Reported by: MAHENDRA SANTOS on 01/08/22 1201 Last Action: Reviewed Loratadine (Loratadine) 10 Mg Tablet, 10 MG PO 2100, (Reported) Entered as Reported by: SREE MICHELLE on 07/01/17844 Last Action: Reviewed Menthol (Gold Rosario Medicated Body) 0.8 % Powder, 1 APPLIC TP UD PRN for FOOT ODOR AND WETNESS, (Reported) Entered as Reported by: MAHENDRA SANTOS on 12/21/211541 Last Action: Reviewed Metronidazole (Metronidazole) 0.75 % Lotion, 1 APPLIC TOP 2100, (Reported) Entered as Reported by: MAHENDRA SANTOS on 12/21/211541 Last Action: Reviewed Mirtazapine (Mirtazapine) 15 Mg Tablet, 15 MG PO 2100, (Reported) Entered as Reported by: MAHENDRA SANTOS on 12/21/211541 Last Action: Reviewed Naphazoline HCl/Pheniramine (Opcon-A Eye Drops) 0.37774 %-0.315 % Drops, 1-2 DROPS OU UD PRN for REDNESS/SWELLING FROM ALLERGY, (Reported) Entered as Reported by: SREE MICHELLE on 07/01/17851 Last Action: Reviewed Neomycin Dinh/Bacitrac Zn/Poly (Gnp Triple Antibiotic Ointment) 28.4 Gm Oint...g., TP UD PRN for MINOR CUTS, SCRAPES, AND SORES, (Reported) Entered as Reported by: SREE MICHELLE on 07/01/17851 Last Action: Reviewed Nystatin (Nystatin) 100,000 Unit/Gram Cream..g., 1 APPLIC TOP BID PRN for SCALING RASH, (Reported) Entered as Reported by: MAHENDRA SANTOS on 12/21/211541 Last Action: Reviewed Pnv with Ca,No.72/Iron/FA ( Plus Tablet) 27 Mg Iron-1 Mg Tablet, 1 EA PO DAILY, (Reported) Entered as Reported by: MAHENDRA SANTOS on 12/21/211541 Last Action: Reviewed Polyethylene Glycol 3350 (Polyethylene Glycol 3350) 17 Gm Powd.pack, 17 GM PO BID, (Reported) Entered as Reported by: IRASEMA HUMPHREY on 09/28/18 1989 Last Action: Reviewed Sennosides/Docusate Sodium (Stimulant Laxative Plus Tablet) 8.6 Mg-50 Mg Tablet, 2 EA PO BID, (Reported) Entered as Reported by: MAHENDRA SANTOS on 12/21/211541 Last Action: Reviewed [place] (Tucks) 50 % Med..pad, 1 EACH TP QID PRN for HEMMORRHOID DISCOMFORT, (Reported) Entered as Reported by: MAHENDRA SANTOS on 01/08/221132 Last Action: Reviewed Discontinued Medications Amoxicillin/Potassium Clav (Augmentin 500-125 Tablet) 500 Mg-125 Mg Tablet, 1 EACH PO BID Discontinued Reason: No Longer Taking Prescribed by: SETH NOE on 12/24/21831 Last Action: Discontinued Divalproex Sodium (Depakote) 500 Mg Tablet.dr, 500 MG PO BID Discontinued Reason: No Longer Taking Prescribed by: SETH NOE on 12/24/21831 Last Action: Discontinued Levetiracetam (Levetiracetam) 500 Mg Tablet, 500 MG PO BID Discontinued Reason: Duplicate Order Prescribed by: SETH NOE on 12/24/21831 Last Action: Discontinued Prednisolone Acetate (Prednisolone Acetate) 1 % Drops.susp, 1 DROP OS QID, (Reported) Discontinued Reason: No Longer Taking Entered as Reported by: MAHENDRA SANTOS on 12/21/211541 Last Action: Discontinued Past Vjlltgy-Hlmqmx-Usjchy Hx Patient Social History Tobacco Use?: No Use of E-Cig and/or Vaping dev: No Substance use?: No Alcohol Use?: No Pt feels they are or have been: No Immunizations Up To Date Date of Influenza Vaccine: Dec 08, 2017 Tetanus Booster (TDap): More Than 5 Years Hepatitis B: Yes PED Vaccines UTD: No Date of Pneumonia Vaccine: Jan 23, 2015 Seasonal Allergies Seasonal Allergies: Yes Current Status Communicates: Verbally Primary Language: Afghan Preferred Spoken Language: Afghan Is interpretation needed?: No Past Medical History Surgeries: Eye Surgery (Cataracts), Gallbladder, Orthopedic Currently Using CPAP: No Currently Using BIPAP: No Developmental Disorder, Seizure Disorder Sexually Transmitted Disease: No HIV/AIDS: No Prostate Problems, UTI-Chronic Chronic Constipation, Chronic Diarrhea, Gall Bladder Disease Fractures, Contracture Loss of Vision: Denies Hearing Impairment: Denies Anxiety Blood Disorders: Yes (ANEMIA) Adverse Reaction/Blood Tranf: No Family Medical History PAST SURGICAL HISTORY: -SURGERY ON ALL LEFT TOES -EGD'S/COLONSCOPIES -RIGHT FEMUR FX/ORIF -PROSTATE SURGERY ADDITIONAL PMH: -POST POLIO SYNDROME WITH LEFT SIDED CONTRACTURES, 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--PT IS NON-AMBULATORY -RIGHT FEMUR FX/ORIF WITH 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 OF HIP -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, MINIMAL VERBAL SKILLS -SEVERE ADAPTIVE BEHAVIOR DISORDER -DELUSIONAL DISORDER -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 1.0oz. 81.990117bg; 26.03 BMI Method:Stated General Appearance: No Apparent Distress HEENT: Normal ENT Inspection Neck: Supple Respiratory: Decreased Breath Sounds Cardiovascular: Regular Rate, Rhythm Gastrointestinal: Normal Bowel Sounds, Non Tender, Soft Rectal: Deferred Back: No CVA Tenderness Extremity: Non Tender, No Calf Tenderness, No Pedal Edema Neurologic/Psychiatric: Alert Skin: Warm/Dry Assessment/Plan Assessment and Plan 1. Altered Mental Status--likely from dehydration, hypoglycemia and infection 2. Hypoglycemia/Dehydration--admit and hydrate with D51/2NS--monitor blood sugar 3. Cough/Possible aspiration--cover with cefepime for both URI etiology and UTI 4. UTI/Chronic Indwelling Martins Catheter/History of recurrent UTIs--cefepime 5. Seizure Disorder--resume IV Keppra Admission Diagnosis Admission Status: Inpatient Order (span 2 midnights) Reason for Inpatient Admission: Will need IVFs and IV abx for at least 48hrs SETH NOE DO Jan 08, 2022 19:08
[2022-01-09] MEDS: CEFEPIME 1,000 MG/NS 50 ML IVPB IV SCH ×2 (02:40)
[2022-01-09 03:24] VITALS: BP 157/86
[2022-01-09 06:05] LABS: POTASSIUM 4.2 MMOL/L (3.6-5.0)
[2022-01-09 06:06] LABS: CALCIUM 8.8 MG/DL (8.5-10.1)
[2022-01-09 06:08] LABS: TOTAL PROTEIN 6.2 GM/DL (6.4-8.2)
[2022-01-09 06:09] LABS: BILIRUBIN,TOTAL 0.5 MG/DL (0.1-1.0)
[2022-01-09 06:11] LABS: CREATININE SERUM 0.99 MG/DL (0.60-1.30)
[2022-01-09] MEDS: LEVETIRACETAM 1,000 MG/NS 100 ML IVPB IV SCH ×4 (06:22→17:26)
[2022-01-09] MEDS: D5 1/2 NS 1000 ML IV SOLUTION 1,000 ML IV SCH ×3 (06:42→22:10)
[2022-01-09 07:36] VITALS: BP 157/77
[2022-01-09] MEDS: RT-ALBUTEROL SULF 2.5 MG/3 ML PRE-MIX VIAL INH SCH ×2 (08:18→15:12)
[2022-01-09] MEDS ORDERED: cefTRIAXone 1 GM PRE-MIX 50 ML IV SCH (09:00)
[2022-01-09] MEDS ORDERED: MEROPENEM 1,000 MG in NS (IVPB) 100 ML IV SCH (10:00)
[2022-01-09] MEDS: PANTOPRAZOLE 40 MG (PROTONIX) VIAL IV SCH (10:11)
[2022-01-09] MEDS: MEROPENEM 500 MG/NS 100 ML IVPB IV SCH ×6 (10:12→22:10)
--- NOTE | 2022-01-09 10:20 | Speech Therapy Progress Note ---
Therapy Progress Note Speech pathology has completed the modified barium swallow evaluation at this time. The recommendations are below with a full, detailed report to follow. The RN has been contacted with the results. Recommendations: - MM5 (Minced and Moist, previously known as Dysphagia Two) with moderately thick liquids (previously known as honey-thick liquids), as tolerated. - Fully upright and alert for P.O. intake. - Full feeding support and supervision. - Small, single bites and sips. - Monitor for s/s of suspected aspiration with P.O. intake. If demonstrated, contact the referring physician or the treating speech pathologist. - As the patient is unable to consistently follow verbal instructions provided by the clinician for swallowing strategies, maneuvers, or exercises, the patient is not appropriate for skilled speech pathology intervention at this time and will be discharged from services. IRASEMA MCKEON Jan 09, 2022 10:20
--- NOTE | 2022-01-09 10:37 | ST Mod Barium Swallow ---
Speech Evaluation-General Medical Diagnosis Altered Mental Status Onset Date: Jan 07, 2022 Therapy Diagnosis Therapy Diagnosis: Oropharyngeal Dysphagia Precautions Precautions: Fall, Pressure Ulcer, Aspiration, Seizure Precautions/Isolations: Contact Isolation, Aspiration, Seizure, Fall Prevention, Pressure Ulcer Referral Referring Physician: Dr. Noe Reason for Referral: Evaluation/Treatment Medical History Current History The patient is a 61 year old male with a past medical history of a seizure disorder, chronic UTI, post polio syndrome (left sided contracture), developmental disabilities (minimally verbal), and cerebral palsy, who presented to [facility] from his long-term with complaints of increased lethargy and cough. Per staff, the patient does display a cough throughout P.O. intake and may have experienced an aspiration event recently. The patient was found to have a UTI and URI. CXR: 01/08/2022: Unremarkable chest. Social History Home: [facility] Speech Mod Barium Swallow Prior Level of Function Per chart review, the patient was previously consuming a regular consistency diet with thin liquids. At this time, the patient is receiving a clear liquid diet (thin liquids). Due to the patient's developmental disability, he is unable to provide additional information regarding his prior level of intake. Oral Motor Skills Dentition Comments: The patient displays sparse, natural dentition. Voluntary Cough: Yes Can Clear Throat Volitionally: Yes Textures-Lateral View Lateral View Food Presentation: [place] Liquid via Spoon, Honey Liquid via Spoon, Pureed Solids, Regular Solids Oral Phase Labial Closure: Mild Impairment Bolus Formation Pooling L/R: Moderate Impairment Bolus Formation Placement: Mild Impairment Mastication Rotary Chew: Moderate Impairment A/P Lingual Propulsion: Minimal Impairment Lingual Movement: Minimal Impairment Oral Phase Residue: Mild Impairment The patient displayed a moderate impairment of the oral phase of the swallow function. The patient was able to appropriately draw material from the teaspoon. Mild anterior bolus loss was appreciated from the right labial side with the patient's secretions throughout the study. Disorganized bolus formation and placement were visualized, as well as, multiple lingual pumping attempts to transfer the bolus material posterior in the oral cavity. Prolonged mastication was present with solid consistencies tested. Piece meal deglutition was observed with all consistencies. Complete posterior bolus loss of all consistencies, with pooling visualized in the pyriform sinuses prior to initiation of the pharyngeal swallow. Pharyngeal Phase Swallow Response: Moderate Impairment Base of Tongue: No Impairment (WFL) Epiglottic Movement: No Impairment (WFL) Laryngeal Elevation: No Impairment (WFL) Vallecular Residue: Mild Pharyngeal Wall Residue: Mild Piriform Sinus Residue: Mild Laryngeal Penetration: Moderate (Mildly thick (nectar)) Aspiration Observations: Mild (Mildly thick (nectar)) The patient displayed a moderate impairment to the pharyngeal phase of the swallow function. Onset of the pharyngeal swallow occurred as bolus material reached and pooled in the pyriform sinuses. Upon initiation of the pharyngeal swallow, mildly thick (nectar-thick liquid) flowed from the pyriform sinuses, displaying deep laryngeal penetration and aspiration during the swallow. A significantly delayed cough was displayed by the patient which did minimize the aspirate from the proximal trachea, however, a mild amount remained lining the anterior surface. No laryngeal penetration or aspiration occurred with moderately thick liquids (honey-thick), puree, or solid consistencies tested. Intact hyo-laryngeal excursion, laryngeal elevation, epiglottic inversion, base of tongue retraction, and pharyngeal contractions were appreciated. Minimal residual material was visualized coating the pharyngeal structures following the initial swallow. Adequate and timely clearance of bolus material throughout the cricopharyngeal region was visualized. Summary/Impressions The patient displayed moderate oropharyngeal dysphagia characterized by decreased labial and lingual coordination and a delayed onset of the pharyngeal swallow. Overall, the disorganization of the swallow function resulted in deep laryngeal penetration and aspiration of mildly thick liquids (nectar-thick) during the swallow. A significantly delayed cough was displayed by the patient which did minimize the aspirate from the proximal trachea, however, a mild amount remained lining the anterior surface. No laryngeal penetration or aspiration occurred with moderately thick liquids (honey-thick), puree, or solid consistencies tested. Recommendations: - MM5 (Minced and Moist, previously known as Dysphagia Two) with moderately thick liquids (previously known as honey-thick liquids), as tolerated. - Fully upright and alert for P.O. intake. - Full feeding support and supervision. - Small, single bites and sips. - Monitor for s/s of suspected aspiration with P.O. intake. If demonstrated, contact the referring physician or the treating speech pathologist. - As the patient is unable to consistently follow verbal instructions provided by the clinician for swallowing strategies, maneuvers, or exercises, the patient is not appropriate for skilled speech pathology intervention at this time and will be discharged from services. The RN was contacted with the results and placed the appropriate diet consistency in the patient's medical chart following the assessment. Speech-Plan Treatment Plan Speech Therapy Treatment Plan: Discontinue ST Treatment Duration: Jan 09, 2022 Frequency: 1 time per week Estimated Hrs Per Day: .5 hour per day Rehab Potential: Poor Safety Risks/Education Teaching Recipient: Patient Teaching Methods: Discussion Response to Teaching: Unable to Comprehend Education Topics Provided: Results, Recommendations, Plan of Care Discharge Recommendations 24 Hour Supervision Time Speech Therapy Time In: 09:30 Speech Therapy Time Out: 10:00 DATE: Jan 09, 2022 Total Billed Time: 30 Billed Treatment Time 1, MOD, DYST IRASEMA MCKEON Jan 09, 2022 10:37
[2022-01-09 11:23] VITALS: BP 131/83
--- NOTE | 2022-01-09 11:38 | Diagnostic Imaging Report ---
EXAMINATION: Modified barium swallow. INDICATION: Difficulty swallowing. This study was performed in the presence of the speech pathologistBlessing. There are no prior studies available for comparison. FINDINGS: Initially, the patient was given nectar consistency barium to swallow. He immediately aspirated. The aspiration did produce a significantly delayed cough. The patient was subsequently given barium in honey consistency applesauce and on a solid cracker. He was able to swallow these materials without aspiration or penetration, but there was considerable spillover of the ingested material. IMPRESSION: The swallowing mechanism is compromised as there was aspiration with the nectar consistency barium. There was also a significantly delayed cough with the aspiration. Dictated by: Dictated on workstation # [id number]
[2022-01-09 16:00] VITALS: BP 113/79
--- NOTE | 2022-01-09 18:56 | Progress Note ---
Subjective Date Seen by a Provider: Jan 09, 2022 Time Seen by a Provider: 08:30 Subjective/Events-last exam Fwup hypoglycemia, UTI, dehydration, seizure disorder. Awake and more alert today. Awaiting swallow evaluation. Objective Exam Vital Signs Date Time Temp Pulse Resp B/P (MAP) Pulse Ox O2 Delivery O2 Flow Rate FiO2 01/09/22 16:00 37.0 98 16 113/79 (90) 95 Room Air 01/09/22 15:12 96 Room Air 01/09/22 13:13 86 01/09/22 11:23 36.6 88 18 131/83 (99) 94 Room Air 01/09/22 09:29 95 Room Air 01/09/22 08:18 95 Room Air 01/09/22 07:36 36.8 91 16 157/77 (103) 98 Room Air 01/09/22 07:04 92 01/09/22 03:24 36.5 91 16 157/86 (109) 95 Room Air 01/09/22 01:00 90 01/08/22 23:37 36.3 92 16 149/89 (109) 100 Room Air 01/08/22 21:45 96 Room Air 01/08/22 20:00 92 Room Air 01/08/22 19:13 36.4 99 16 122/73 (89) 100 Room Air 01/08/22 19:00 100 I & O 01/09/22 07:00 Intake Total 2730 ml Output Total 3975 ml Balance -1245 ml Capillary Refill : Less Than 3 Seconds General Appearance: No Apparent Distress Neck: Supple Respiratory: Lungs Clear Cardiovascular: Regular Rate, Rhythm Gastrointestinal: normal bowel sounds, non tender, soft Extremity: Non Tender, No Calf Tenderness, No Pedal Edema Neurologic/Psychiatric: Alert Results Lab Laboratory Tests 01/08/22 19:15: Glucometer 243H 01/08/22 23:43: Glucometer 140H 01/09/22 03:27: Glucometer 105 01/09/22 05:42: Sodium Level 138, Potassium Level 4.2, Chloride Level 105, Carbon Dioxide Level 23, Anion Gap 10, Blood Urea Nitrogen 13, Creatinine 0.99, Estimat Glomerular Filtration Rate 88, BUN/Creatinine Ratio 13, Glucose Level 131H, Calcium Level 8.8, Corrected Calcium 9.6, Total Bilirubin 0.5, Aspartate Amino Transf (AST/SGOT) 28, Alanine Aminotransferase (ALT/SGPT) 48, Alkaline Phosphatase 282H , Total Protein 6.2L, Albumin 3.0L 01/09/22 07:36: Glucometer 135H 01/09/22 11:22: Glucometer 133H 01/09/22 16:26: Glucometer 177H Microbiology 01/07/22 Urine Culture - Final, Complete Escherichia coli Assessment/Plan Assessment/Plan Assess & Plan/Chief Complaint 1. Hypoglycemia--resolved 2. Dehydration--improved 3. UTI--growing out ESBLpositive E. coli--switch to meropenem 4. Seizure Disorder--on Ketracyra 5. Dysphagia--Modified Barium Swallow today Clinical Quality Measures Admission Status Admission Dx 1. Altered Mental Status--likely from dehydration, hypoglycemia and infection 2. Hypoglycemia/Dehydration--admit and hydrate with D51/2NS--monitor blood sugar 3. Cough/Possible aspiration--cover with cefepime for both URI etiology and UTI 4. UTI/Chronic Indwelling Henry Catheter/History of recurrent UTIs--cefepime 5. Seizure Disorder--resume IV SETH Wylie DO Jan 09, 2022 18:56
[2022-01-09 20:10] VITALS: BP 146/84
[2022-01-10] VITALS: BP 139/85
[2022-01-10] MEDS: RT-ALBUTEROL SULF 2.5 MG/3 ML PRE-MIX VIAL INH SCH ×5 (01:03→21:28)
[2022-01-10 04:00] VITALS: BP 128/71
[2022-01-10] MEDS: MEROPENEM 500 MG/NS 100 ML IVPB IV SCH ×8 (05:21→22:13)
[2022-01-10] MEDS: D5 1/2 NS 1000 ML IV SOLUTION 1,000 ML IV SCH ×3 (05:23→18:18)
[2022-01-10] MEDS: LEVETIRACETAM 1,000 MG/NS 100 ML IVPB IV SCH ×4 (05:23→18:18)
[2022-01-10 08:01] VITALS: BP 102/51
[2022-01-10] MEDS: PANTOPRAZOLE 40 MG (PROTONIX) VIAL IV SCH (09:09)
[2022-01-10 11:32] VITALS: BP 115/59
[2022-01-10 15:55] VITALS: BP 123/79
--- NOTE | 2022-01-10 17:56 | Progress Note ---
Subjective Date Seen by a Provider: Jan 10, 2022 Time Seen by a Provider: 12:00 Subjective/Events-last exam Fwup UTI, AMS, Hypoglycemia, Dehdyration, Sepsis, Seizure Disorder. Resting in bed. Objective Exam Vital Signs Date Time Temp Pulse Resp B/P (MAP) Pulse Ox O2 Delivery O2 Flow Rate FiO2 01/10/22 16:41 94 Room Air 01/10/22 15:55 36.6 89 18 123/79 (94) 96 Room Air 01/10/22 13:15 81 01/10/22 11:32 36.5 88 18 115/59 (77) 93 Room Air 01/10/22 08:01 36.3 92 18 102/51 (68) 92 Room Air 01/10/22 08:00 Room Air 01/10/22 07:47 92 Room Air 01/10/22 07:39 77 01/10/22 04:00 37.3 65 16 128/71 (90) 92 Room Air 01/10/22 02:57 96 Room Air 01/10/22 00:37 74 01/10/22 00:00 37.2 89 18 139/85 (103) 94 Room Air 01/09/22 20:10 37.0 98 18 146/84 (104) 94 Room Air 01/09/22 20:00 92 Room Air 01/09/22 19:11 106 01/09/22 18:55 93 Room Air I & O 01/10/22 07:00 Intake Total 1170 ml Output Total 3050 ml Balance -1880 ml Capillary Refill : Less Than 3 Seconds General Appearance: No Apparent Distress Respiratory: Lungs Clear Cardiovascular: Regular Rate, Rhythm Gastrointestinal: normal bowel sounds, non tender, soft Extremity: Non Tender, No Calf Tenderness, No Pedal Edema Neurologic/Psychiatric: Alert, Oriented x3 Skin: Warm/Dry Results Lab Laboratory Tests 01/09/22 19:42: Glucometer 143H 01/10/22 06:21: Glucometer 111H 01/10/22 08:07: Glucometer 121H 01/10/22 15:54: Glucometer 102 Microbiology 01/07/22 Urine Culture - Final, Complete Escherichia coli Assessment/Plan Assessment/Plan Assess & Plan/Chief Complaint 1. Hypoglycemia--resolved 2. Dehydration--improved 3. UTI--growing out ESBLpositive E. coli--on meropenem 4. Seizure Disorder--on Keppra 5. Dysphagia--Modified Barium Swallow done yesterday and started on Dysphagia diet Plan Dc for tomorrow Clinical Quality Measures Admission Status Admission Dx 1. Altered Mental Status--likely from dehydration, hypoglycemia and infection 2. Hypoglycemia/Dehydration--admit and hydrate with D51/2NS--monitor blood sugar 3. Cough/Possible aspiration--cover with cefepime for both URI etiology and UTI 4. UTI/Chronic Indwelling Henry Catheter/History of recurrent UTIs--cefepime 5. Seizure Disorder--resume IV SETH Wylie DO Jan 10, 2022 17:56
[2022-01-10] MEDS ORDERED: MIRTAZAPINE 15 MG (REMERON) TAB PO SCH (21:00)
[2022-01-10] MEDS ORDERED: NON-FORMULARY MEDICATION 1 EA EA (Mirtazapine 15 MG) PO SCH (21:00)
[2022-01-11] MEDS: D5 1/2 NS 1000 ML IV SOLUTION 1,000 ML IV SCH ×2 (01:49→08:40)
[2022-01-11] MEDS: RT-ALBUTEROL SULF 2.5 MG/3 ML PRE-MIX VIAL INH SCH ×2 (03:14→10:00)
[2022-01-11] MEDS: MEROPENEM 500 MG/NS 100 ML IVPB IV SCH ×4 (04:00→10:05)
[2022-01-11] MEDS: LEVETIRACETAM 1,000 MG/NS 100 ML IVPB IV SCH ×2 (06:28)
[2022-01-11 08:13] VITALS: BP 178/81
[2022-01-11] MEDS ORDERED: NON-FORMULARY MEDICATION 1 EA EA (Citalopram Hydrobromide (Citalopram HBr) 40 MG) PO SCH (09:00)
[2022-01-11] MEDS: PANTOPRAZOLE 40 MG (PROTONIX) VIAL IV SCH (09:16)
[2022-01-11] MEDS ORDERED: OMEP40CA6 PO (10:11)
[2022-01-11] MEDS ORDERED: NITR-65 PO (10:12)
[2022-01-11] MEDS ORDERED: NITROFURANTOIN 100 MG (MACROBID) CAPSULE PO NR (10:30)
[2022-01-11 11:48] VITALS: BP 143/76
--- NOTE | 2022-01-11 13:01 | Discharge Summary ---
Diagnosis/Chief Complaint Date of Admission Jan 09, 2022 at 13:05 Date of Discharge Discharge Date: Jan 11, 2022 Discharge Diagnosis 1. Hypoglycemia--resolved 2. Dehydration--improved 3. UTI--growing out ESBLpositive E. coli--switched to oral macrobid 4. Seizure Disorder--on Keppra 5. Dysphagia--on dyshagia 1 diet Reason Hospital Visit This is a 61 year old developmentally disabled male with a history of seizure disorder who was brought to the emergency room by credit support counselor from his nursing home due to lethargy and cough for 48hrs. He was noted to be hypoglycemic with a blood sugar of 43. He was also found to be dehydrated with a UTI and URI. The staff reports that he does cough a lot with eating and may have had an aspiration episode a few nights ago while eating in bed. He was given IV dextrose in the emergency room adn will be admitted on IVFs of D51/2NS. He will also be treated with cefepime for both UTI and URI etiology. His flu and COVID swabs are negative. Discharge Summary Hospital Course Was the Problem List Reviewed?: Yes Hospital Course This is a 61 year old developmentally disabled male with a history of seizure disorder who was brought to the emergency room by credit support counselor from his nursing home due to lethargy and cough for 48hrs. He was noted to be hypoglycemic with a blood sugar of 43. He was also found to be dehydrated with a UTI and URI. The staff reports that he does cough a lot with eating and may have had an aspiration episode a few nights ago while eating in bed. He was given IV dextrose in the emergency room adn will be admitted on IVFs of D51/2NS. He will also be treated with cefepime for both UTI and URI etiology. His flu and COVID swabs are negative. He was admitted to the medical floor. He was treated with IV maxipime, however, his urine culture came back ESBL positive E. Coli so he was switched to meropenem. His blood sugar stabilized after admission. By the time of discharge he is awake and alert and back to his baseline. He pulled out his IV and removed his holter monitor and would not allow staff to restart an IV. He was switched to oral keppra and oral macrobid on the morning of discharge due to pulling out his IV. He did undergo a swallow evaluation with speech therapy and is on a dysphagia 1 diet with honey consistency liquids. He will be discharged back to his nursing home on oral macrobid, oral keppra and the dysphagia 1 diet. He will follow up with me in my office in 1 week. Labs Laboratory Tests 01/08/22 15:55: Glucometer 131H 01/08/22 19:15: Glucometer 243H 01/08/22 23:43: Glucometer 140H 01/09/22 03:27: 01/09/22 05:42: Glucose Level 131H, Alkaline Phosphatase 282H, Total Protein 6.2L, Albumin 3.0L 01/09/22 07:36: Glucometer 135H 01/09/22 11:22: Glucometer 133H 01/09/22 16:26: Glucometer 177H 01/09/22 19:42: Glucometer 143H 01/10/22 06:21: Glucometer 111H 01/10/22 08:07: Glucometer 121H 01/10/22 15:54: 01/11/22 08:10: 01/11/22 11:34: Glucometer 146H Procedures None. Discharge Physical Examination Allergies: Coded Allergies: lorazepam (Verified Adverse Reaction, Intermediate, HYPERACTIVITY, 12/07/21) Vitals & I&Os Vital Signs Date Time Temp Pulse Resp B/P (MAP) Pulse Ox O2 Delivery O2 Flow Rate FiO2 01/11/22 11:48 36.8 89 18 143/76 (98) 95 Room Air 01/11/22 03:14 0.00 01/07/22 17:11 21 General Appearance: Alert Respiratory: Clear to Auscultation Cardiovascular: Regular Rate Abdominal: Normal Bowel Sounds, Soft, No Tenderness Psych/Mental Status: Mental Status NL (back to baseline) Discharge Home Medications Reviewed and agree with Discharge Medication list on patient's Discharge Instruction sheet Instructions to Patient/Family Please see electronic discharge instructions given to patient. SETH CANALES DO Jan 11, 2022 13:01
[2022-01-12] MEDS ORDERED: PANTOPRAZOLE 40 MG (PROTONIX) TAB PO SCH (09:00)
== END 2022-01-11 13:10 | disposition home or self-care (01) | DRG 699 ==
LOC: EDUNIT# 12:37 → ER 12:39 → UNDOADMOB 15:42 → 4TH 15:42 → ER 16:32 → OBSVTOIN 01-09 13:05
PROVIDERS: ADMIT Family Medicine; ATTEND Family Medicine
DX: T83.518A Infection and inflammatory reaction due to other urinary catheter, initial encounter (principal); N39.0 Urinary tract infection, site not specified; Z16.12 Extended spectrum beta lactamase (ESBL) resistance; E16.2 Hypoglycemia, unspecified; G40.909 Epilepsy, unspecified, not intractable, without status epilepticus; J06.9 Acute upper respiratory infection, unspecified; E86.0 Dehydration; R13.12 Dysphagia, oropharyngeal phase; F79 Unspecified intellectual disabilities; N32.0 Bladder-neck obstruction; Z20.822 Contact with and (suspected) exposure to COVID-19; M24.541 Contracture, right hand; M24.574 Contracture, right foot; M16.7 Other unilateral secondary osteoarthritis of hip; M24.451 Recurrent dislocation, right hip; B91 Sequelae of poliomyelitis; B96.20 Unspecified Escherichia coli [E. coli] as the cause of diseases classified elsewhere; Z79.52 Long term (current) use of systemic steroids
CPT/HCPCS: 36415; 71045; 74230; 80048; 80053; 80164; 81000; 82947; 83735; 83874; 84484; 85025; 85610; 85730; 86141; 87077; 87088; 87186; 87636; 93005; 93041; 94640; 94760; G0378

== ENCOUNTER → 2022-01-15 | Outpatient (CLI) | payer MEDICARE, MEDICAID ==
[~2022-01-15] MED LIST changes: +ASCO-262 PO; +LAMO100T5 PO; +OMEP40CA6 PO; +PREG25CA19 PO; +WITC1MED3 TP
== END | disposition home or self-care (01) ==
LOC: PREOP 05:29
PROVIDERS: ATTEND Specialist
DX: Z01.818 Encounter for other preprocedural examination (principal)

== ENCOUNTER 2022-01-18 11:20 | Day surgery (SDC) | payer MEDICARE, MEDICAID ==
[~2022-01-18] VITALS: Ht 175.3 cm; Wt 80.0 kg
[2022-01-18] VITALS (8 sets, daily range): BP systolic 71–135; BP diastolic 42–84
[2022-01-18] MEDS ORDERED: POVIDONE (BETADINE) OPHTH SOLN 5% 30 ML OP ONE (12:00)
[2022-01-18] MEDS ORDERED: TIMOLOL MALEATE 0.5% 5 ML (TIMOPTIC) BTL OU PRN (12:00)
[2022-01-18] MEDS ORDERED: MOXIFLOXACIN OPHTH SOLN 5 MG/ML 0.3 ML SYRINGE OP ONE (12:00)
[2022-01-18] MEDS: TETRACAINE 0.5% OPHTH SOLN 4 ML BTL (SINGLE DOSE ONLY) OU PRN ×4 (12:08→12:26)
[2022-01-18] MEDS: TROPICAMIDE 1% OPH SOLN (MYDRIACYL) 15 ML BTL OP SCH ×3 (12:15→12:26)
[2022-01-18] MEDS ORDERED: LACTATED RINGERS 1,000 ML IV ONE (12:15)
[2022-01-18] MEDS: PHENYLEPHRINE 10% OPHTH (NEO-SYN) 5 ML BTL OU SCH ×3 (12:15→12:26)
[2022-01-18] MEDS ORDERED: acetaZOLAMIDE ER 500 MG CAP (DIAMOX SEQUELS) PO ONE (13:00)
--- NOTE | 2022-01-18 13:08 | Ophthalmologist Pre-Op Note ---
Pre-Operative Progress Note H&P Reviewed The H&P was reviewed, patient examined and no changes noted. Date H&P Reviewed: Jan 18, 2022 Time H&P Reviewed: 13:08 Pre-Op Dx Cataract, Right Eye FLEX WITT MD Jan 18, 2022 13:08
--- NOTE | 2022-01-18 13:38 | Ophthalmology Operative Report ---
Cataract removal/placement IOL PREOPERATIVE DIAGNOSIS: Cataract Right Eye POSTOPERATIVE DIAGNOSIS: Cataract Right Eye PROCEDURE: Cataract removal and placement of posterior chamber implant, right eye SURGEON: James Witt ANESTHESIA: Topical with sedation COMPLICATIONS: None ESTIMATED BLOOD LOSS: Minimal DESCRIPTION OF PROCEDURE: After proper informed consent was obtained, the patient, a 61 male, was taken to the Operating Room and the right eye was anesthetized with tetracaine. The right eye was then prepped and draped in the usual manner. A wire lid speculum was placed. A paracentesis was made at the left hand position. Preservative free lidocaine was injected into the anterior chamber followed by viscoelastic. A clear corneal incision was made in the temporal position. A capsulorrhexis was preformed and the central nuclear and cortical material were removed. The posterior capsule was polished and Jn [id number] 13.0 IOL was placed into the capsular bag. The residual viscoelastic was aspirated and balanced saline solution was injected into the anterior chamber. Moxifloxacin was injected into the anterior chamber. The wound was checked and found to be water tight. The patient tolerated the procedure well without complications. JAMES WITT MD Jan 18, 2022 13:38
--- NOTE | 2022-01-18 14:09 | Anesthesia-General Post-Op ---
MAC Patient Condition Mental Status/LOC: Same as Preop Cardiovascular: Satisfactory Nausea/Vomiting: Absent Respiratory: Satisfactory Pain: Controlled Complications: Absent Post Op Complications Complications None Follow Up Care/Instructions Patient Instructions None needed. Anesthesiology Discharge Order Discharge Order Patient is doing well, no complaints, stable vital signs, no apparent adverse anesthesia problems. No complications reported per nursing. JERZY RODRIGUEZ CRNA Jan 18, 2022 14:09
== END 2022-01-18 15:20 | disposition home or self-care (01) ==
LOC: SDC 11:20
PROVIDERS: ATTEND Specialist
DX: H25.9 Unspecified age-related cataract (principal)
CPT/HCPCS: 66984; V2632

== ENCOUNTER 2022-01-25 08:10 | Emergency (ER) | payer MEDICARE, MEDICAID ==
[~2022-01-25] VITALS: Ht 175 cm; Wt 80.0 kg
[2022-01-25 09:06] LABS: BASOPHILS % (AUTO) 1 % (0-10); EOSINOPHILS # (AUTO) 0.1 10^3/uL (0.0-0.3); EOSINOPHILS % (AUTO) 4 % (0-10); HEMATOCRIT 35 % (40-54); HEMOGLOBIN 11.8 g/dL (13.3-17.7); LYMPHOCYTES # (AUTO) 0.8 10^3/uL (1.0-4.0); LYMPHOCYTES % (AUTO) 22 % (12-44); MEAN CORPUSCULAR HEMOGLOBIN 32 pg (25-34); MEAN CORPUSCULAR HGB CONC 34 g/dL (32-36); MEAN CORPUSCULAR VOLUME 96 fL (80-99); MEAN PLATELET VOLUME 9.7 fL (9.0-12.2); MONOCYTES # (AUTO) 0.3 10^3/uL (0.0-1.0); MONOCYTES % (AUTO) 8 % (0-12); NEUTROPHILS # (AUTO) 2.3 10^3/uL (1.8-7.8); NEUTROPHILS % (AUTO) 65 % (42-75); PLATELET COUNT 179 10^3/uL (130-400); WHITE BLOOD COUNT 3.5 10^3/uL (4.3-11.0)
[2022-01-25 09:07] LABS: BILIRUBIN,URINE NEGATIVE (NEGATIVE); CLARITY,URINE CLEAR; COLOR,URINE YELLOW; GLUCOSE, URINE (UA) NEGATIVE (NEGATIVE); KETONES,URINE NEGATIVE (NEGATIVE); LEUKOCYTE ESTERASE ,URINE TRACE (NEGATIVE); NITRITE,URINE NEGATIVE (NEGATIVE); PH,URINE 5.5 (5-9); PROTEIN,URINE NEGATIVE (NEGATIVE)
--- NOTE | 2022-01-25 09:09 | Diagnostic Imaging Report ---
Indication: Cough, seizure Frontal chest obtained at 8:52 a.m. and compared with 01/08/2022. Heart and mediastinal silhouette are normal in appearance. The lungs are clear. There is no pneumothorax or pleural fluid. IMPRESSION: No acute process in the chest. Dictated by: Dictated on workstation # [id number]
--- NOTE | 2022-01-25 09:11 | Diagnostic Imaging Report ---
EXAMINATION: Abdomen 1 view HISTORY: abdomen pain COMPARISON: 06/30/2017 FINDINGS: There is a moderate amount of gas and stool throughout the colon. Nonobstructive bowel gas pattern. No radiopaque foreign body. The lung bases are clear. Degenerative changes of the hips and spine. Osseous structures are otherwise intact. Surgical and congenital or degenerative changes of the right hip. IMPRESSION: Moderate stool burden without other acute abnormality in the abdomen. Dictated by: Dictated on workstation # [id number]
[2022-01-25 09:32] LABS: BACTERIA,URINE FEW /HPF; WBC,URINE 0-2 /HPF
[2022-01-25 09:50] LABS: ALBUMIN 3.2 GM/DL (3.2-4.5); POTASSIUM 4.6 MMOL/L (3.6-5.0)
[2022-01-25 09:51] LABS: CALCIUM 9.1 MG/DL (8.5-10.1)
[2022-01-25 09:52] LABS: TOTAL PROTEIN 6.6 GM/DL (6.4-8.2)
[2022-01-25 09:54] LABS: BILIRUBIN,TOTAL 0.3 MG/DL (0.1-1.0)
[2022-01-25 09:56] LABS: CREATININE SERUM 0.82 MG/DL (0.60-1.30)
[2022-01-25 10:19] LABS: TSH (THYROID ANALYZER) 4.93 UIU/ML (0.35-4.94)
[2022-01-25] MEDS ORDERED: LEVE500T99 PO (11:34)
--- NOTE | 2022-01-25 11:34 | ED Neurological Problem ---
General Chief Complaint: Neurological Problems Stated Complaint: SEIZURE Nursing Triage Note: PT OUT OF CAR BY STAFF, PT IS A CLIENT OF [facility] AND PT HAS HAD A SEIZURE THAT STAFF STATES LASTED 5 MIN. NO FALL OR INJURY FROM SEIZURE PT WAS SITTING UP IN CHAIR, STAFF STATES HANDS STARTED SHAKING, HEAD TURNED IN SHOULDER, NOT ALERT AND DROOLING, PT IS AWAKE AND ALERT AT THIS X. PT HAS MR BUT WHEN ASKED IF DOING OK SHOOK HIS HEAD YES. NO POSTICTAL ACT NOTED. PT IS TOTAL LIFT. PT HAS A MARTINS CATH IN PLACE Allergies and Home Medications Allergies Coded Allergies: lorazepam (Verified Adverse Reaction, Intermediate, HYPERACTIVITY, 12/07/21) Patient Home Medication List Acetaminophen (Acetaminophen) 500 Mg Tablet, 500 MG PO Q6H PRN for PAIN-MILD (1- 4) OR TEMPATURE, (Reported) Entered as Reported by: HAROLDO STONE on 06/03/16 1413 Aripiprazole (Aripiprazole) 10 Mg Tablet, 10 MG PO 2100, (Reported) Entered as Reported by: MAHENDRA SANTOS on 12/21/21 1542 Ascorbate Calcium (Vitamin C) 500 Mg Tablet, 500 MG PO DAILY, (Reported) Entered as Reported by: MAHENDRA SANTOS on 01/08/22 1133 Bismuth Subsalicylate (Pepto-Bismol) 262 Mg/15 Ml Oral.susp, PO UD PRN for UPSET STOMACH/INDIGESTION, (Reported) Entered as Reported by: SREE MICHELLE on 07/01/17 0852 Calamine/Zinc Oxide (Calamine Lotion) 177 Ml Lotion, TP UD PRN for RASH, (Reported) Entered as Reported by: SREE MICHELLE on 07/01/17 0845 Ciclopirox (Ciclopirox) 8 % Solution, 1 APPLIC TP 2100, (Reported) Entered as Reported by: MAHENDRA SANTOS on 12/21/21 1542 Citalopram Hydrobromide (Citalopram HBr) 40 Mg Tablet, 40 MG PO DAILY, (Reported) Entered as Reported by: MAHENDRA SANTOS on 12/21/21 1542 Cranberry Extract (Cranberry) 425 Mg Capsule, 425 MG PO BID, (Reported) Entered as Reported by: MAHENDRA SANTOS on 12/21/21 1542 Fluticasone Propionate (Fluticasone Propionate) 16 Gm [place].susp, 1 SPRAY NS BID, (Reported) Entered as Reported by: SREE MICHELLE on 07/01/17 0845 Guaifenesin/D-Methorphan Hb/PE (Robitussin Cough-Cold Cf Liq) 118 Ml Liquid, PO UD PRN for COUGH/CONGESTION, (Reported) Entered as Reported by: SREE MICHELLE on 07/01/17 0852 Hydrocortisone (Hydrocortisone) 1 % Cream..g., 1 APPLIC TP UD PRN for RASH AND ITCHING, (Reported) Entered as Reported by: MAHENDRA SANTOS on 12/21/21 154 Ketoconazole (Ketoconazole) 2 % Shampoo, 1 APPLIC TOP TWICE WEEKLY, (Reported) Entered as Reported by: MAHENDRA SANTOS on 12/21/21 154 L. Rhamnosus GG/Inulin (Culturelle Capsule) 10 Billion Cell-200 Mg Cap.sprink, 1 CAP PO DAILY, (Reported) Entered as Reported by: SREE MICHELLE on 07/01/17 0845 Levetiracetam (Levetiracetam) 1,000 Mg Tablet, 1,000 MG PO BID, (Reported) Entered as Reported by: MAHENDRA SANTOS on 01/08/22 1201 Loratadine (Loratadine) 10 Mg Tablet, 10 MG PO 2100, (Reported) Entered as Reported by: SREE MICHELLE on 07/01/17 08 Menthol (Gold Rosario Medicated Body) 0.8 % Powder, 1 APPLIC TP UD PRN for FOOT ODOR AND WETNESS, (Reported) Entered as Reported by: MAHENDRA SANTOS on 12/21/21 154 Metronidazole (Metronidazole) 0.75 % Lotion, 1 APPLIC TOP 2100, (Reported) Entered as Reported by: MAHENDRA SANTOS on 12/21/21 154 Mirtazapine (Mirtazapine) 15 Mg Tablet, 15 MG PO 2100, (Reported) Entered as Reported by: MAHENDRA SANTOS on 12/21/21 154 Naphazoline HCl/Pheniramine (Opcon-A Eye Drops) 0.24918 %-0.315 % Drops, 1-2 DROPS OU UD PRN for REDNESS/SWELLING FROM ALLERGY, (Reported) Entered as Reported by: SREE MICHELLE on 07/01/17 0852 Neomycin Dinh/Bacitrac Zn/Poly (Gnp Triple Antibiotic Ointment) 28.4 Gm Oint...g., TP UD PRN for MINOR CUTS, SCRAPES, AND SORES, (Reported) Entered as Reported by: SREE MICHELLE on 07/01/17 0852 Nitrofurantoin Monohyd/M-Cryst (Macrobid 100 mg Capsule) 100 Mg Capsule, 1 TAB PO BID Prescribed by: SETH CANLAES on 01/11/22 1012 Nystatin (Nystatin) 100,000 Unit/Gram Cream..g., 1 APPLIC TOP BID PRN for SCALING RASH, (Reported) Entered as Reported by: MAHENDRA SANTOS on 12/21/21 1542 Omeprazole (Omeprazole) 40 Mg Capsule.dr, 40 MG PO DAILY Prescribed by: SETH CANALES on 01/11/22 1011 Pnv with Ca,No.72/Iron/FA ( Plus Tablet) 27 Mg Iron-1 Mg Tablet, 1 EA PO DAILY, (Reported) Entered as Reported by: MAHENDRA SANTOS on 12/21/21 1542 Polyethylene Glycol 3350 (Polyethylene Glycol 3350) 17 Gm Powd.pack, 17 GM PO BID, (Reported) Entered as Reported by: IRASEMA HUMPHREY on 09/28/18 1428 Sennosides/Docusate Sodium (Stimulant Laxative Plus Tablet) 8.6 Mg-50 Mg Tablet, 2 EA PO BID, (Reported) Entered as Reported by: MAHENDRA SANTOS on 12/21/21 1542 [place] (Andrew) 50 % Med..pad, 1 EACH TP QID PRN for HEMMORRHOID DISCOMFORT, (Reported) Entered as Reported by: MAHENDRA SANTOS on 01/08/22 1133 Past Mepckzv-Ocncve-Ooswbx Hx Patient Social History Tobacco Use?: No Use of E-Cig and/or Vaping dev: No Substance use?: No Alcohol Use?: No Pt feels they are or have been: No Immunizations Up To Date Tetanus Booster (TDap): Less than 5yrs PED Vaccines UTD: No Seasonal Allergies Seasonal Allergies: Yes Past Medical History Surgery/Hospitalization HX: PMH: MOOD DISORDER, DEPRESSION, SLEEP DISORDER, SEIZURES, CHILDHOOD POLIO, CHINESE MEASLES, MR, CONSTIPATION Surgeries: Yes Eye Surgery, Gallbladder, Orthopedic Respiratory: No Currently Using CPAP: No Currently Using BIPAP: No Cardiac: No Neurological: Yes (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) Developmental Disorder, Seizure Disorder Sexually Transmitted Disease: No HIV/AIDS: No Genitourinary: Yes Prostate Problems, UTI-Chronic Gastrointestinal: Yes (S/P MATILDE) Chronic Constipation, Chronic Diarrhea, Gall Bladder Disease Musculoskeletal: Yes Fractures, Contracture Endocrine: No HEENT: No Loss of Vision: Denies Hearing Impairment: Denies Cancer: No Psychosocial: Yes (MR, SEVERE ADAPTIVE BEHAVIOR DISORDER, CONVULSIONS, DELUSIONAL DISORDER) Anxiety Integumentary: No Blood Disorders: Yes (ANEMIA) Adverse Reaction/Blood Tranf: No Family Medical History PAST SURGICAL HISTORY: -SURGERY ON ALL LEFT TOES -EGD'S/COLONSCOPIES -RIGHT FEMUR FX/ORIF -PROSTATE SURGERY ADDITIONAL PMH: -POST POLIO SYNDROME WITH LEFT SIDED CONTRACTURES, 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 1.0oz. 81.830730ls; 26.00 BMI Method:Stated Progress/Results/Core Measures Results/Orders Lab Results Laboratory Tests Test 01/25/22 08:55 01/25/22 08:59 01/25/22 09:36 Range/Units White Blood Count 3.5 L 4.3-11.0 10^3/uL Red Blood Count 3.67 L 4.30-5.52 10^6/uL Hemoglobin 11.8 L 13.3-17.7 g/dL Hematocrit 35 L 40-54 % Mean Corpuscular Volume 96 80-99 fL Mean Corpuscular Hemoglobin 32 25-34 pg Mean Corpuscular Hemoglobin Concent 34 32-36 g/dL Red Cell Distribution Width 14.4 10.0-14.5 % Platelet Count 179 130-400 10^3/uL Mean Platelet Volume 9.7 9.0-12.2 fL Immature Granulocyte % (Auto) 1 % Neutrophils (%) (Auto) 65 42-75 % Lymphocytes (%) (Auto) 22 12-44 % Monocytes (%) (Auto) 8 0-12 % Eosinophils (%) (Auto) 4 0-10 % Basophils (%) (Auto) 1 0-10 % Neutrophils # (Auto) 2.3 1.8-7.8 10^3/uL Lymphocytes # (Auto) 0.8 L 1.0-4.0 10^3/uL Monocytes # (Auto) 0.3 0.0-1.0 10^3/uL Eosinophils # (Auto) 0.1 0.0-0.3 10^3/uL Basophils # (Auto) 0.0 0.0-0.1 10^3/uL Immature Granulocyte # (Auto) 0.0 0.0-0.1 10^3/uL Urine Color YELLOW Urine Clarity CLEAR Urine pH 5.5 5-9 Urine Specific [place] >=1.030 1.016-1.022 Urine Protein NEGATIVE NEGATIVE Urine Glucose (UA) NEGATIVE NEGATIVE Urine Ketones NEGATIVE NEGATIVE Urine Nitrite NEGATIVE NEGATIVE Urine Bilirubin NEGATIVE NEGATIVE Urine Urobilinogen 0.2 < = 1.0 MG/DL Urine Leukocyte Esterase TRACE H NEGATIVE Urine RBC (Auto) NEGATIVE NEGATIVE Urine RBC NONE /HPF Urine WBC 0-2 /HPF Urine Crystals NONE /LPF Urine Bacteria FEW H /HPF Urine Casts NONE /LPF Urine Mucus NEGATIVE /LPF Urine Culture Indicated YES Sodium Level 139 135-145 MMOL/L Potassium Level 4.6 3.6-5.0 MMOL/L Chloride Level 106 98-107 MMOL/L Carbon Dioxide Level 24 21-32 MMOL/L Anion Gap 9 5-14 MMOL/L Blood Urea Nitrogen 23 H 7-18 MG/DL Creatinine 0.82 0.60-1.30 MG/DL Estimat Glomerular Filtration Rate 101 BUN/Creatinine Ratio 28 Glucose Level 79 70-105 MG/DL Calcium Level 9.1 8.5-10.1 MG/DL Corrected Calcium 9.7 8.5-10.1 MG/DL Magnesium Level 2.0 1.6-2.4 MG/DL Total Bilirubin 0.3 0.1-1.0 MG/DL Aspartate Amino Transf (AST/SGOT) 30 5-34 U/L Alanine Aminotransferase (ALT/SGPT) 60 H 0-55 U/L Alkaline Phosphatase 281 H 40-136 U/L Total Protein 6.6 6.4-8.2 GM/DL Albumin 3.2 3.2-4.5 GM/DL TSH [place] Testing 4.93 0.35-4.94 UIU/ML My Orders Orders - CARMEN PAVON MD Cbc With Automated Diff (01/25/22 08:41) Comprehensive Metabolic Panel (01/25/22 08:41) Magnesium (01/25/22 08:41) Thyroid Analyzer (01/25/22 08:41) Ua Culture If Indicated (01/25/22 08:41) Chest 1 View, Ap/Pa Only (01/25/22 08:41) Abdomen/Kub 1[place] (01/25/22 08:41) Ed Iv/Invasive Line Start (01/25/22 08:43) Urine Culture (01/25/22 08:59) Levetiracetam Tablet (Keppra Tablet) (01/25/22 11:30) Vital Signs/I&O 01/25/22 08:10 Temp 36.6 Pulse 68 Resp 18 B/P (MAP) 117/89 (98) Pulse Ox 97 O2 Delivery Room Air Blood Pressure Mean: 98 Departure Impression Primary Impression: Seizure Disposition: 01 HOME, SELF-CARE Condition: Improved Departure-Patient Inst. Decision time for Depature: 11:32 Referrals: SETH CANALES DO (PCP/Family) Primary Care Physician Patient Instructions: Seizures, Adult ED Add. Discharge Instructions: Because seizures seem to be uncontrolled at this time, I suggest continuing to titrate up on Keppra dosing. Continue taking Keppra 1000 mg morning and evening. Add Keppra 500 mg at noon. Follow-up with the primary care provider soon as possible. There is a moderate amount of stool in the colon on x-ray. This may be bordering on constipation. Treatment with MiraLAX or stool softener such as Colace would be acceptable to help with bowel movements. Return to care if symptoms are worsening despite following these instructions. All discharge instructions reviewed with patient and/or family. Voiced unde rstanding. Scripts Levetiracetam (Keppra) 500 Mg Tablet 500 MG PO DAILY, #30 TAB Take at noon in addition to the Keppra 1000 mg morning and evening. Prov: CARMEN PAVON MD 01/25/22 CARMEN PAVON MD Jan 25, 2022 11:34
[2022-01-25 11:42] VITALS: BP 117/89
== END 2022-01-25 11:42 | disposition home or self-care (01) ==
LOC: EDUNIT# 08:10 → ER 08:12
DX: G40.909 Epilepsy, unspecified, not intractable, without status epilepticus (principal)
CPT/HCPCS: 36415; 71045; 74018; 80053; 81000; 83735; 84443; 85025; 87077; 87088; 87186; 99283

== ENCOUNTER → 2022-02-04 | Outpatient (CLI) | payer MEDICARE, MEDICAID ==
[~2022-02-04] MED LIST changes: +LEVE500T99 PO
--- NOTE | 2022-02-04 15:51 | Diagnostic Imaging Report ---
INDICATION: CONSTIPATION ABDOMINAL DISTENTION COMPARISON: 01/25/2022 FINDINGS: 2 frontal radiographic views of the abdomen were obtained and demonstrate nondistended loops of small bowel. There is no large collection of free peritoneal air. Moderate air and stool are seen scattered throughout the colon. No unexpected extraosseous calcifications or radiopaque foreign bodies are seen. Bony structures show no gross acute abnormalities. IMPRESSION: 1. Nonobstructed small bowel gas pattern. 2. Moderate colonic air and stool. Please correlate for constipation Dictated by: Dictated on workstation # [id number]
== END ==
LOC: RAD 15:26
PROVIDERS: ATTEND Family Medicine
DX: K59.00 Constipation, unspecified (principal); R14.0 Abdominal distension (gaseous)
CPT/HCPCS: 74018

== ENCOUNTER 2022-02-09 19:29 | Emergency (ER) | payer MEDICARE, MEDICAID ==
[~2022-02-09] VITALS: Ht 170.2 cm; Wt 77.0 kg
[2022-02-09] MEDS ORDERED: NS IV 1000 ML 1,000 ML IV SCH (19:45)
[2022-02-09] MEDS ORDERED: ONDANSETRON 4 MG/2 ML (SDV) Z0FRAN IVP ONE (19:45)
--- NOTE | 2022-02-09 19:45 | ED General ---
General Chief Complaint: Neurological Problems Stated Complaint: SEIZURE Nursing Triage Note: PT TO [facility] FROM [facility]. EMS REPORTS PT EXPERIENCED APPROX 5 MIN SEIZURE. PT'S KEPPRA DOSE HAS RECENTLY BEEN CHANGED, PT ALERT, VOMITING DURING TRIAGE. CC EMS INITIATED 22G L HAND SL PATENT UPON ARRIVAL TO ED. Source of Information: Patient Exam Limitations: No Limitations History of Present Illness Date Seen by Provider: Feb 09, 2022 Time Seen by Provider: 19:30 Initial Comments Here by EMS with report of seizure lasting 5 minutes tonight. Patient has known seizures and he is on Keppra but that dose is apparently been changed down recently and has had more seizure problems since. EMS was summoned due to the seizure and he did bite his tongue. Have initiated a 22-gauge IV to the left hand. They did note that he was coughing in route and his O2 saturations were 88%. They did put him on O2 via nasal cannula at 6 L and that brought it up into the low 90s. Patient coughing and vomiting on arrival. He is essentially nonverbal and is unable to provide any history or answer any questions but does say he is sick. Does not seem to be any pain. O2 saturation improved on 2 L after suctioning on arrival. Now in the upper 90s. No report of recent illness. Timing/Duration: 1/2 Hour Severity: Moderate Associated Systoms: Cough, Seizure Allergies and Home Medications Allergies Coded Allergies: lorazepam (Verified Adverse Reaction, Intermediate, HYPERACTIVITY, 12/07/21) Patient Home Medication List Home Medication List Reviewed: Yes Acetaminophen (Acetaminophen) 500 Mg Tablet, 500 MG PO Q6H PRN for PAIN-MILD (1- 4) OR TEMPATURE, (Reported) Entered as Reported by: HAROLDO STONE on 06/03/16 1413 Aripiprazole (Aripiprazole) 10 Mg Tablet, 10 MG PO 2100, (Reported) Entered as Reported by: MAHENDRA SANTOS on 12/21/21 1542 Ascorbate Calcium (Vitamin C) 500 Mg Tablet, 500 MG PO DAILY, (Reported) Entered as Reported by: MAHENDRA SANTOS on 01/08/22 1133 Bismuth Subsalicylate (Pepto-Bismol) 262 Mg/15 Ml Oral.susp, PO UD PRN for UPSET STOMACH/INDIGESTION, (Reported) Entered as Reported by: SREE MICHELLE on 07/01/17 08 Calamine/Zinc Oxide (Calamine Lotion) 177 Ml Lotion, TP UD PRN for RASH, (Reported) Entered as Reported by: SREE MICHELLE on 07/01/17 0845 Ciclopirox (Ciclopirox) 8 % Solution, 1 APPLIC TP 2100, (Reported) Entered as Reported by: MAHENDRA SANTOS on 12/21/21 154 Citalopram Hydrobromide (Citalopram HBr) 40 Mg Tablet, 40 MG PO DAILY, (Reported) Entered as Reported by: MAHENDRA SANTOS on 12/21/21 154 Cranberry Extract (Cranberry) 425 Mg Capsule, 425 MG PO BID, (Reported) Entered as Reported by: MAHENDRA SANTOS on 12/21/21 154 Fluticasone Propionate (Fluticasone Propionate) 16 Gm [place].susp, 1 SPRAY NS BID, (Reported) Entered as Reported by: SREE MICHELLE on 07/01/17 08 Guaifenesin/D-Methorphan Hb/PE (Robitussin Cough-Cold Cf Liq) 118 Ml Liquid, PO UD PRN for COUGH/CONGESTION, (Reported) Entered as Reported by: SREE MICHELLE on 07/01/17 08 Hydrocortisone (Hydrocortisone) 1 % Cream..g., 1 APPLIC TP UD PRN for RASH AND ITCHING, (Reported) Entered as Reported by: MAHENDRA SANTOS on 12/21/21 154 Ketoconazole (Ketoconazole) 2 % Shampoo, 1 APPLIC TOP TWICE WEEKLY, (Reported) Entered as Reported by: MAHENDRA SANTOS on 12/21/21 154 L. Rhamnosus GG/Inulin (Culturelle Capsule) 10 Billion Cell-200 Mg Cap.sprink, 1 CAP PO DAILY, (Reported) Entered as Reported by: SREE MICHELLE on 07/01/17 08 Levetiracetam (Levetiracetam) 1,000 Mg Tablet, 1,000 MG PO BID, (Reported) Entered as Reported by: MAHENDRA SANTOS on 01/08/22 1201 Levetiracetam (Keppra) 500 Mg Tablet, 500 MG PO DAILY Prescribed by: CARMEN KING on 01/25/22 1134 Loratadine (Loratadine) 10 Mg Tablet, 10 MG PO 2100, (Reported) Entered as Reported by: SREE MICHELLE on 07/01/17 0845 Menthol (Gold Rosario Medicated Body) 0.8 % Powder, 1 APPLIC TP UD PRN for FOOT ODOR AND WETNESS, (Reported) Entered as Reported by: MAHENDRA SANTOS on 12/21/21 154 Metronidazole (Metronidazole) 0.75 % Lotion, 1 APPLIC TOP 2100, (Reported) Entered as Reported by: MAHENDRA SANTOS on 12/21/21 154 Mirtazapine (Mirtazapine) 15 Mg Tablet, 15 MG PO 2100, (Reported) Entered as Reported by: MAHENDRA SANTOS on 12/21/21 154 Naphazoline HCl/Pheniramine (Opcon-A Eye Drops) 0.26065 %-0.315 % Drops, 1-2 DROPS OU UD PRN for REDNESS/SWELLING FROM ALLERGY, (Reported) Entered as Reported by: SREE MICHELLE on 07/01/17 0852 Neomycin Dinh/Bacitrac Zn/Poly (Gnp Triple Antibiotic Ointment) 28.4 Gm Oint...g., TP UD PRN for MINOR CUTS, SCRAPES, AND SORES, (Reported) Entered as Reported by: SREE MICHELLE on 07/01/17 0852 Nitrofurantoin Monohyd/M-Cryst (Macrobid 100 mg Capsule) 100 Mg Capsule, 1 TAB PO BID Prescribed by: SETH NOE on 01/11/22 1012 Nystatin (Nystatin) 100,000 Unit/Gram Cream..g., 1 APPLIC TOP BID PRN for SCALING RASH, (Reported) Entered as Reported by: MAHENDRA SANTOS on 12/21/21 154 Omeprazole (Omeprazole) 40 Mg Capsule.dr, 40 MG PO DAILY Prescribed by: SETH NOE on 01/11/22 1011 Pnv with Ca,No.72/Iron/FA ( Plus Tablet) 27 Mg Iron-1 Mg Tablet, 1 EA PO DAILY, (Reported) Entered as Reported by: MAHENDRA SANTOS on 12/21/21 154 Polyethylene Glycol 3350 (Polyethylene Glycol 3350) 17 Gm Powd.pack, 17 GM PO BID, (Reported) Entered as Reported by: IRASEMA HUMPHREY on 09/28/18 1428 Sennosides/Docusate Sodium (Stimulant Laxative Plus Tablet) 8.6 Mg-50 Mg Tablet, 2 EA PO BID, (Reported) Entered as Reported by: MAHENDRA SANTOS on 12/21/21 1542 [place] Locke (Tucks) 50 % Med..pad, 1 EACH TP QID PRN for HEMMORRHOID DISCOMFORT, (Reported) Entered as Reported by: MAHENDRA SANTOS on 01/08/22 1133 Review of Systems Review of Systems Constitutional: see HPI; No fever Respiratory: cough Gastrointestinal: vomiting Psychiatric/Neurological: Seizure Unable to complete review of systems due to underlying MR. 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) Developmental Disorder, Seizure Disorder Sexually Transmitted Disease: No HIV/AIDS: No Genitourinary: Yes Prostate Problems, UTI-Chronic Gastrointestinal: Yes (S/P MATILDE) Chronic Constipation, Chronic Diarrhea, Gall Bladder Disease Musculoskeletal: Yes Fractures, Contracture Endocrine: No HEENT: No Loss of Vision: Denies Hearing Impairment: Denies Cancer: No Psychosocial: Yes (MR, SEVERE ADAPTIVE BEHAVIOR DISORDER, CONVULSIONS, DELUSIONAL DISORDER) Anxiety Nursing Suicide Risk Notes: UNABLE TO ASSESS PT RISK D/T MENTAL STATUS Integumentary: No Blood Disorders: Yes (ANEMIA) Adverse Reaction/Blood Tranf: No Family Medical History Reviewed Nursing Family Hx PAST SURGICAL HISTORY: -SURGERY ON ALL LEFT TOES -EGD'S/COLONSCOPIES -RIGHT FEMUR FX/ORIF -PROSTATE SURGERY ADDITIONAL PMH: -POST POLIO SYNDROME WITH LEFT SIDED CONTRACTURES, 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--PT IS NON-AMBULATORY -RIGHT FEMUR FX/ORIF WITH 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 OF HIP -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, MINIMAL VERBAL SKILLS -SEVERE ADAPTIVE BEHAVIOR DISORDER -DELUSIONAL DISORDER -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 Physical Exam-Suspected Sepsis Physical Exam Vital Signs Vital Signs - First Documented 02/09/22 19:30 Temp 36.4 Pulse 103 Resp 24 B/P (MAP) 155/116 (129) Pulse Ox 98 O2 Delivery Nasal Cannula O2 Flow Rate 2.00 Capillary Refill : Less Than 3 Seconds Blood Pressure Mean: 129 Height, Weight, BMI Height: 5'9.00" Weight: 180lbs. 1.0oz. 81.410729jd; 26.00 BMI Method:Stated General Appearance: WD/WN, Mild Distress HEENT: PERRL/EOMI, Pharynx Normal Neck: Non Tender, Supple Respiratory: Crackles (Few bilateral basilar); No Wheezing Cardiovascular: No Murmur, Tachycardia Gastrointestinal: Non Tender, Soft Back: No CVA Tenderness, Other (Contractures hands and feet) Extremity: Pedal Edema (1-2+ bilateral lower extremities up to mid tibia), Other (Contractures noted and limited movement of lower extremities and to a lesser extent the upper extremities) Neurologic/Psychiatric: Alert, Other (Coughing and awake. Patient is vomiting. Minimal verbal at baseline.) Skin: normal color, warm/dry; No rash Focused Exam Lactate Level 02/09/22 20:55: Lactic Acid Level 1.39 Lactic Acid Level Laboratory Tests Test 02/09/22 20:55 Lactic Acid Level 1.39 MMOL/L (0.50-2.00) Progress/Results/Core Measures Suspected Sepsis SIRS Temperature: Pulse: 103 Respiratory Rate: 24 Laboratory Tests 02/09/22 19:35: White Blood Count 6.8 Blood Pressure 155 /116 Mean: 129 02/09/22 20:55: Lactic Acid Level 1.39 Laboratory Tests 02/09/22 19:35: INR Comment 0.9, Platelet Count 190 02/09/22 20:55: Creatinine 0.90, Total Bilirubin 0.3 Results/Orders Lab Results Laboratory Tests Test 02/09/22 19:35 02/09/22 19:40 02/09/22 20:55 Range/Units White Blood Count 6.8 4.3-11.0 10^3/uL Red Blood Count 3.54 L 4.30-5.52 10^6/uL Hemoglobin 11.5 L 13.3-17.7 g/dL Hematocrit 35 L 40-54 % Mean Corpuscular Volume 98 80-99 fL Mean Corpuscular Hemoglobin 33 25-34 pg Mean Corpuscular Hemoglobin Concent 33 32-36 g/dL Red Cell Distribution Width 14.4 10.0-14.5 % Platelet Count 190 130-400 10^3/uL Mean Platelet Volume 10.2 9.0-12.2 fL Immature Granulocyte % (Auto) 1 % Neutrophils (%) (Auto) 51 42-75 % Lymphocytes (%) (Auto) 40 12-44 % Monocytes (%) (Auto) 7 0-12 % Eosinophils (%) (Auto) 2 0-10 % Basophils (%) (Auto) 0 0-10 % Neutrophils # (Auto) 3.4 1.8-7.8 10^3/uL Lymphocytes # (Auto) 2.7 1.0-4.0 10^3/uL Monocytes # (Auto) 0.5 0.0-1.0 10^3/uL Eosinophils # (Auto) 0.1 0.0-0.3 10^3/uL Basophils # (Auto) 0.0 0.0-0.1 10^3/uL Immature Granulocyte # (Auto) 0.1 0.0-0.1 10^3/uL Prothrombin Time 12.2 12.2-14.7 SEC INR Comment 0.9 0.8-1.4 Activated Partial Thromboplast Time 30 24-35 SEC Influenza Type A (RT-PCR) Not Detected Not Detecte Influenza Type B (RT-PCR) Not Detected Not Detecte SARS-CoV-2 RNA (RT-PCR) Not Detected Not Detecte Sodium Level 139 135-145 MMOL/L Potassium Level 4.7 3.6-5.0 MMOL/L Chloride Level 102 98-107 MMOL/L Carbon Dioxide Level 25 21-32 MMOL/L Anion Gap 12 5-14 MMOL/L Blood Urea Nitrogen 22 H 7-18 MG/DL Creatinine 0.90 0.60-1.30 MG/DL Estimat Glomerular Filtration Rate 98 BUN/Creatinine Ratio 24 Glucose Level 112 H 70-105 MG/DL Lactic Acid Level 1.39 0.50-2.00 MMOL/L Calcium Level 8.7 8.5-10.1 MG/DL Corrected Calcium 9.2 8.5-10.1 MG/DL Total Bilirubin 0.3 0.1-1.0 MG/DL Aspartate Amino Transf (AST/SGOT) 69 H 5-34 U/L Alanine Aminotransferase (ALT/SGPT) 87 H 0-55 U/L Alkaline Phosphatase 426 H 40-136 U/L C-Reactive Protein High Sensitivity 3.05 H 0.00-0.50 MG/DL Total Protein 6.8 6.4-8.2 GM/DL Albumin 3.4 3.2-4.5 GM/DL Procalcitonin 0.06 <0.10 NG/ML My Orders Orders - ROSA AVILA MD Cbc With Automated Diff (02/09/22 19:37) Blood Culture (02/09/22 19:37) Sputum Culture (02/09/22:37) Protime With Inr (02/09/22:37) Partial Thromboplastin Time (02/09/22:37) Chest 1 View, Ap/Pa Only (02/09/22 19:37) Ed Iv/Invasive Line Start (02/09/22 19:37) Ed Iv/Invasive Line Start (02/09/22 19:37) Vital Signs Adult Sepsis Patie Q15M (02/09/22 19:37) O2 (02/09/22 19:37) Remove Rings In Anticipation O (02/09/22 19:37) Influenza A And B By Pcr (02/09/22 19:37) Covid 19 Inhouse Test (02/09/22 19:37) Levetiracetam Injection (Keppra Injectio (02/09/22 19:37) Ns Iv 1000 Ml (Sodium Chloride 0.9%) (02/09/22 19:45) Ondansetron Injection (Zofran Injectio (02/09/22 19:45) Levetiracetam Level (Keppra) (02/09/22 20:09) Comprehensive Metabolic Panel (02/09/22 UNK) Hs C Reactive Protein (02/09/22 UNK) Procalcitonin (Pct) (02/09/22 UNK) Lactic Acid Analyzer (02/09/22 UNK) Medications Given in ED Current Medications Medications Dose Ordered Sig/Ewelina Route Start Time Stop Time Status Last Admin Dose Admin Ondansetron HCl 4 mg ONCE ONCE IVP 02/09/22 19:45 02/09/22 19:46 DC 02/09/22 19:49 4 MG Vital Signs/I&O 02/09/22 19:30 Temp 36.4 Pulse 103 Resp 24 B/P (MAP) 155/116 (129) Pulse Ox 98 O2 Delivery Nasal Cannula O2 Flow Rate 2.00 Capillary Refill : Less Than 3 Seconds Blood Pressure Mean: 129 Progress Note : Progress Note Seen and evaluated. IV by EMS. We will check CBC, CMP, CRP and procalcitonin as well as COVID and influenza. We will check chest x-ray. Normal saline 500 mL bolus, Zofran 4 mg IV and Keppra 500 mg IV ordered. Patient is on 2 L via nasal cannula and is at 99%. He is coughing and gagging but that is improved with oral suctioning. 2100: No new seizures. Chest x-ray negative on my interpretation pending final results. We have DC'd the oxygen. Monitor patient. 0: We have monitored the patient throughout the stay. O2 sats 100% on room air. His coughing has resolved. No new seizures. We do have Keppra level pending which is a send out. I will send a copy of the chart to Dr. Noe to follow that. No indication for admission or transfer at this point. He is in an assisted living situation. He does have care attendance with him. Believe he is safe for home now. Discharged back to home with return precautions. morgue attendant verbalized understanding instructions and agreement with plan. Diagnostic Imaging Diagonstic Imaging: Xray Plain Films/CT/US/NM/MRI: chest Comments Single view chest x-ray shows no acute findings on my interpretation. See radiology report below [facility], [place] NAME: JASPAL DEL [facility]IO [facility] REC#: [id number] PT STATUS: REG ER : 1960 PHYSICIAN: ROSA AVILA MD ADMIT DATE: 02/09/22/ER Signed Date of Exam:12/10/22 CHEST 1 VIEW, AP/PA ONLY INDICATION: Cough. COMPARISON: Prior examination from 01/25/2022. FINDINGS: The heart size, mediastinal configuration, and pulmonary vascularity are within normal limits. There is no pleural effusion, pneumothorax, or pneumonia. The osseous structures are unremarkable. IMPRESSION: No acute cardiopulmonary abnormality. Dictated by: Dictated on workstation # [id number] Dict: 02/09/222022 Trans: 02/09/222028 [id number] Interpreted by: BALJEET JIMÉNEZ MD Electronically signed by: BALJEET JIMÉNEZ MD 02/09/222028 Departure Impression Primary Impression: Seizure Additional Impression: Vomiting Qualified Codes: R11.10 - Vomiting, unspecified Disposition: HOME, SELF-CARE Condition: Improved Departure-Patient Inst. Decision time for Depature: 22:04 Referrals: SETH NOE DO (PCP/Family) Primary Care Physician Patient Instructions: Seizures, Adult ED, Nausea and Vomiting, Adult Add. Discharge Instructions: All discharge instructions reviewed with patient and/or family. Voiced understanding. Continue home medications as previously prescribed. Follow-up with Dr. Noe on Friday. Call her office for appointment and to discuss medication adjustment. Let her know that there is a Keppra level pending from the hospital that she can follow-up on. Return for repeat seizures, breathing problems, weakness, vomiting, fever or other concerns as needed. Copy Copies To 1: SETH NOE TIMOTHY D MD Feb 09, 2022 19:45
[2022-02-09 19:49] LABS: BASOPHILS % (AUTO) 0 % (0-10); EOSINOPHILS # (AUTO) 0.1 10^3/uL (0.0-0.3); EOSINOPHILS % (AUTO) 2 % (0-10); HEMATOCRIT 35 % (40-54); HEMOGLOBIN 11.5 g/dL (13.3-17.7); LYMPHOCYTES # (AUTO) 2.7 10^3/uL (1.0-4.0); LYMPHOCYTES % (AUTO) 40 % (12-44); MEAN CORPUSCULAR HEMOGLOBIN 33 pg (25-34); MEAN CORPUSCULAR HGB CONC 33 g/dL (32-36); MEAN CORPUSCULAR VOLUME 98 fL (80-99); MEAN PLATELET VOLUME 10.2 fL (9.0-12.2); MONOCYTES # (AUTO) 0.5 10^3/uL (0.0-1.0); MONOCYTES % (AUTO) 7 % (0-12); NEUTROPHILS # (AUTO) 3.4 10^3/uL (1.8-7.8); NEUTROPHILS % (AUTO) 51 % (42-75); PLATELET COUNT 190 10^3/uL (130-400); WHITE BLOOD COUNT 6.8 10^3/uL (4.3-11.0)
[2022-02-09 19:59] LABS: INR 0.9 (0.8-1.4); PROTHROMBIN TIME PATIENT 12.2 SEC (12.2-14.7)
--- NOTE | 2022-02-09 20:28 | Diagnostic Imaging Report ---
INDICATION: Cough. COMPARISON: Prior examination from 01/25/2022. FINDINGS: The heart size, mediastinal configuration, and pulmonary vascularity are within normal limits. There is no pleural effusion, pneumothorax, or pneumonia. The osseous structures are unremarkable. IMPRESSION: No acute cardiopulmonary abnormality. Dictated by: Dictated on workstation # [id number]
[2022-02-09 21:22] LABS: ALBUMIN 3.4 GM/DL (3.2-4.5); BILIRUBIN,TOTAL 0.3 MG/DL (0.1-1.0); CALCIUM 8.7 MG/DL (8.5-10.1); CREATININE SERUM 0.9 MG/DL (0.60-1.30); POTASSIUM 4.7 MMOL/L (3.6-5.0); TOTAL PROTEIN 6.8 GM/DL (6.4-8.2)
[2022-02-09 22:24] VITALS: BP 159/118
== END 2022-02-09 22:24 | disposition home or self-care (01) ==
LOC: EDUNIT# 19:29 → ER 19:32
DX: G40.909 Epilepsy, unspecified, not intractable, without status epilepticus (principal); R11.10 Vomiting, unspecified; Z79.899 Other long term (current) drug therapy; Z20.822 Contact with and (suspected) exposure to COVID-19
CPT/HCPCS: 36415; 71045; 80053; 80177; 83605; 84145; 85025; 85610; 85730; 86141; 87040; 87636

== ENCOUNTER → 2022-02-20 | Outpatient (CLI) | payer MEDICARE, MEDICAID ==
--- NOTE | 2022-02-20 08:47 | Diagnostic Imaging Report ---
PROCEDURE: US Hepatic (Liver). TECHNIQUE: Multiple real-time grayscale images were obtained over the right upper quadrant in various projections. INDICATION: Elevated liver enzymes. FINDINGS: Liver is normal in size at 14.5 cm. Portal vein is patent and shows normal direction of flow. No liver mass is identified. Gallbladder is surgically absent. No definite biliary ductal dilatation is seen. Pancreas was obscured by overlying bowel gas. Aorta is nonaneurysmal. IVC is patent. Right kidney is without calculi or hydronephrosis. There is no ascites. IMPRESSION: Status post cholecystectomy. No significant abnormality is detected. Dictated by: Dictated on workstation # [id number]
== END ==
LOC: RAD 07:15
PROVIDERS: ATTEND Family Medicine
DX: R74.8 Abnormal levels of other serum enzymes (principal); Z90.49 Acquired absence of other specified parts of digestive tract
CPT/HCPCS: 76705

== ENCOUNTER 2022-03-16 12:37 | Inpatient (IN) | payer MEDICARE, MEDICAID ==
[~2022-03-16] VITALS: Ht 175.2 cm; Wt 85.9 kg
[2022-03-16] MEDS ORDERED: NS IV 1000 ML 1,000 ML ONE (12:57)
[2022-03-16 13:14] LABS: BASOPHILS # (AUTO) 0.1 10^3/uL (0.0-0.1); BASOPHILS % (AUTO) 0 % (0-10); EOSINOPHILS % (AUTO) 0 % (0-10); HEMATOCRIT 31 % (40-54); HEMOGLOBIN 10.3 g/dL (13.3-17.7); LYMPHOCYTES # (AUTO) 1.1 10^3/uL (1.0-4.0); LYMPHOCYTES % (AUTO) 6 % (12-44); MEAN CORPUSCULAR HEMOGLOBIN 33 pg (25-34); MEAN CORPUSCULAR HGB CONC 34 g/dL (32-36); MEAN CORPUSCULAR VOLUME 97 fL (80-99); MEAN PLATELET VOLUME 10.6 fL (9.0-12.2); MONOCYTES # (AUTO) 0.7 10^3/uL (0.0-1.0); MONOCYTES % (AUTO) 4 % (0-12); NEUTROPHILS # (AUTO) 18.5 10^3/uL (1.8-7.8); NEUTROPHILS % (AUTO) 90 % (42-75); PLATELET COUNT 169 10^3/uL (130-400); WHITE BLOOD COUNT 20.5 10^3/uL (4.3-11.0)
[2022-03-16] MEDS ORDERED: NS IV 1000 ML 1,000 ML IV SCH ×3 (13:15→14:30)
[2022-03-16 13:23] LABS: PROTHROMBIN TIME PATIENT 13.7 SEC (12.2-14.7)
[2022-03-16 13:33] LABS: ALANINE AMINOTRANSFERASE 34 U/L (0-55); ALBUMIN 3.1 GM/DL (3.2-4.5); ALKALINE PHOSPHATASE 298 U/L (40-136); BILIRUBIN,TOTAL 0.5 MG/DL (0.1-1.0); BUN/CREATININE RATIO 17; CALCIUM 8.7 MG/DL (8.5-10.1); CARBON DIOXIDE 23 MMOL/L (21-32); CHLORIDE 106 MMOL/L (98-107); CREATININE SERUM 1.29 MG/DL (0.60-1.30); GFR ESTIMATED 64; GLUCOSE 80 MG/DL (70-105); POTASSIUM 4.9 MMOL/L (3.6-5.0); SODIUM 139 MMOL/L (135-145); TOTAL PROTEIN 6.2 GM/DL (6.4-8.2)
--- NOTE | 2022-03-16 13:39 | Diagnostic Imaging Report ---
EXAMINATION: Chest 1 view HISTORY: Altered mental status. Possible seizure. COMPARISON: 02/09/2022. FINDINGS: Patchy and consolidative opacities are seen in the left apex. Additional opacities are seen in the lung bases. No pleural effusion or pneumothorax. Stable cardiac silhouette. IMPRESSION: 1. Patchy and consolidative opacities in the left upper lobe with additional opacities in the lung bases. Findings are concerning for multifocal pneumonia. Dictated by: Dictated on workstation # [id number]
[2022-03-16] MEDS ORDERED: NOREPINEPHRINE 8 MG/250 ML 250 ML IV STA (13:59)
[2022-03-16] MEDS ORDERED: CEFEPIME INJECTION 1,000 MG in NS (IVPB) 50 ML IV ONE (14:00)
[2022-03-16 14:02] LABS: ANISOCYTOSIS SLIGHT; BAND NEUTROPHILS 26 %; BASOPHILS % (MANUAL) 0 %; EOSINOPHILS % (MANUAL) 0 %; LYMPHOCYTES % (MANUAL) 6 %; MONOCYTES % (MANUAL) 1 %; NEUTROPHILS % (MANUAL) 65 %; POLYCHROMASIA SLIGHT
--- NOTE | 2022-03-16 14:16 | ED General ---
General Chief Complaint: Neurological Problems Stated Complaint: SEIZURE Nursing Triage Note: CAREGIVER STATES THE PATIENT HAS HAD A CHANGE IN MENTAL STATUS THIS MORNING SINCE HE WOKE UP, IS CONCERNED THAT HE MAY HAVE HAD A SEIZURE AT SOME POINT LAST NIGHT. PT APPARENTLY DID NOT SLEEP ALL NIGHT AND IS NOW NOT DRINKING OR EATING ANYTHING, HAS BEEN VERY LETHARGIC THIS AM. NORMALLY THE PATIENT CAN EAT AND DRINK NORMALLY AND IS YELLING AND TALKING. HAD FEVER THIS AM AND WAS GIVEN TYLENOL History of Present Illness Date Seen by Provider: Mar 16, 2022 Time Seen by Provider: 12:41 Initial Comments 61 year old male brought by caregiver at [facility]. Concerned that he had seizures through the night or this morning, but none were witnessed. He may have vomited but again unwitnessed. Night staff reports he yelled a lot, he was sleeping when this tech arrived, so she let him rest. Patient is non-verbal. B/P this am was 120/70, he was able to stand. Fever of 102 this am, was given Tylenol and is afebrile now. He has been more lethargic over the last hour and was brought here. Concern his b/p is 78/50. Spoke to NORBERTO Owens and he is to continue as full code. Timing/Duration: 4-6 Hours Associated Systoms: No Cough; Fever/Chills (earlier today) Allergies and Home Medications Allergies Coded Allergies: lorazepam (Verified Adverse Reaction, Intermediate, HYPERACTIVITY, 12/07/21) Patient Home Medication List Home Medication List Reviewed: Yes Acetaminophen (Acetaminophen) 500 Mg Tablet, 500 MG PO Q6H PRN for PAIN-MILD (1- 4) OR TEMPATURE, (Reported) Entered as Reported by: HAROLDO STONE on 06/03/16 1413 Aripiprazole (Aripiprazole) 10 Mg Tablet, 10 MG PO 2100, (Reported) Entered as Reported by: MAHENDRA SANTOS on 12/21/21 1542 Ascorbate Calcium (Vitamin C) 500 Mg Tablet, 500 MG PO DAILY, (Reported) Entered as Reported by: MAHENDRA SANTOS on 01/08/22 1133 Bismuth Subsalicylate (Pepto-Bismol) 262 Mg/15 Ml Oral.susp, PO UD PRN for UPSET STOMACH/INDIGESTION, (Reported) Entered as Reported by: SREE MICHELLE on 07/01/17 0852 Calamine/Zinc Oxide (Calamine Lotion) 177 Ml Lotion, TP UD PRN for RASH, (Reported) Entered as Reported by: SREE MICHELLE on 07/01/17 0845 Ciclopirox (Ciclopirox) 8 % Solution, 1 APPLIC TP 2100, (Reported) Entered as Reported by: MAHENDRA SANTOS on 12/21/21 154 Citalopram Hydrobromide (Citalopram HBr) 40 Mg Tablet, 40 MG PO DAILY, (Reported) Entered as Reported by: MAHENDRA SANTOS on 12/21/21 154 Cranberry Extract (Cranberry) 425 Mg Capsule, 425 MG PO BID, (Reported) Entered as Reported by: MAHENDRA SANTOS on 12/21/21 154 Fluticasone Propionate (Fluticasone Propionate) 16 Gm [place].susp, 1 SPRAY NS BID, (Reported) Entered as Reported by: SREE MICHELLE on 07/01/17 08 Guaifenesin/D-Methorphan Hb/PE (Robitussin Cough-Cold Cf Liq) 118 Ml Liquid, PO UD PRN for COUGH/CONGESTION, (Reported) Entered as Reported by: SREE MICHELLE on 07/01/17 08 Hydrocortisone (Hydrocortisone) 1 % Cream..g., 1 APPLIC TP UD PRN for RASH AND ITCHING, (Reported) Entered as Reported by: MAHENDRA SANTOS on 12/21/21 154 Ketoconazole (Ketoconazole) 2 % Shampoo, 1 APPLIC TOP TWICE WEEKLY, (Reported) Entered as Reported by: MAHENDRA SANTOS on 12/21/21 154 L. Rhamnosus GG/Inulin (Culturelle Capsule) 10 Billion Cell-200 Mg Cap.sprink, 1 CAP PO DAILY, (Reported) Entered as Reported by: SREE MICHELLE on 07/01/17 0845 Levetiracetam (Levetiracetam) 1,000 Mg Tablet, 1,000 MG PO BID, (Reported) Entered as Reported by: MAHENDRA SANTOS on 01/08/22 1201 Levetiracetam (Keppra) 500 Mg Tablet, 500 MG PO DAILY Prescribed by: CARMEN KING on 01/25/22 1134 Loratadine (Loratadine) 10 Mg Tablet, 10 MG PO 2100, (Reported) Entered as Reported by: SREE MICHELLE on 07/01/17 0845 Menthol (Gold Rosario Medicated Body) 0.8 % Powder, 1 APPLIC TP UD PRN for FOOT ODOR AND WETNESS, (Reported) Entered as Reported by: MAHENDRA SANTOS on 12/21/21 154 Metronidazole (Metronidazole) 0.75 % Lotion, 1 APPLIC TOP 2100, (Reported) Entered as Reported by: MAHENDRA SANTOS on 12/21/21 154 Mirtazapine (Mirtazapine) 15 Mg Tablet, 15 MG PO 2100, (Reported) Entered as Reported by: MAHENDRA SANTOS on 12/21/21 154 Naphazoline HCl/Pheniramine (Opcon-A Eye Drops) 0.15050 %-0.315 % Drops, 1-2 DROPS OU UD PRN for REDNESS/SWELLING FROM ALLERGY, (Reported) Entered as Reported by: SREE MICHELLE on 07/01/17 0852 Neomycin Dinh/Bacitrac Zn/Poly (Gnp Triple Antibiotic Ointment) 28.4 Gm Oint...g., TP UD PRN for MINOR CUTS, SCRAPES, AND SORES, (Reported) Entered as Reported by: SREE MICHELLE on 07/01/17 0852 Nitrofurantoin Monohyd/M-Cryst (Macrobid 100 mg Capsule) 100 Mg Capsule, 1 TAB PO BID Prescribed by: SETH NOE on 01/11/22 1012 Nystatin (Nystatin) 100,000 Unit/Gram Cream..g., 1 APPLIC TOP BID PRN for SCALING RASH, (Reported) Entered as Reported by: MAHENDRA SANTOS on 12/21/21 154 Omeprazole (Omeprazole) 40 Mg Capsule.dr, 40 MG PO DAILY Prescribed by: SETH NOE on 01/11/22 1011 Pnv with Ca,No.72/Iron/FA ( Plus Tablet) 27 Mg Iron-1 Mg Tablet, 1 EA PO DAILY, (Reported) Entered as Reported by: MAHENDRA SANTOS on 12/21/21 154 Polyethylene Glycol 3350 (Polyethylene Glycol 3350) 17 Gm Powd.pack, 17 GM PO BID, (Reported) Entered as Reported by: IRASEMA HUMPHREY on 09/28/18 1428 Sennosides/Docusate Sodium (Stimulant Laxative Plus Tablet) 8.6 Mg-50 Mg Tablet, 2 EA PO BID, (Reported) Entered as Reported by: MAHENDRA SANTOS on 12/21/21 1542 [place] (Tucks) 50 % Med..pad, 1 EACH TP QID PRN for HEMMORRHOID DISCOMFORT, (Reported) Entered as Reported by: MAHENDRA SANTOS on 01/08/22 1133 Review of Systems Review of Systems Constitutional: see HPI, fever, weakness EENTM: see HPI Respiratory: no symptoms reported, see HPI Cardiovascular: no symptoms reported, see HPI Gastrointestinal: see HPI, vomiting (possibly through the night) Genitourinary: see HPI, other (suprapubic catheter) Skin: no symptoms reported, see HPI Psychiatric/Neurological: See HPI, Seizure (not witnessed) All Other Systems Reviewed Negative Unless Noted: Yes Past Iuvdehg-Gfhoec-Ntiwqc Hx Patient Social History Tobacco Use?: No Substance use?: No Alcohol Use?: No Pt feels they are or have been: No Immunizations Up To Date Tetanus Booster (TDap): Less than 5yrs PED Vaccines UTD: No Seasonal Allergies Seasonal Allergies: Yes Past Medical History Surgery/Hospitalization HX: PMH: MOOD DISORDER, DEPRESSION, SLEEP DISORDER, SEIZURES, CHILDHOOD POLIO, LEBANESE MEASLES, MR, CONSTIPATION, CHF Surgeries: Yes Eye Surgery, Gallbladder, Orthopedic Respiratory: No Currently Using CPAP: No Currently Using BIPAP: No Cardiac: No Neurological: Yes (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) Developmental Disorder, Seizure Disorder Sexually Transmitted Disease: No HIV/AIDS: No Genitourinary: Yes Prostate Problems, UTI-Chronic Gastrointestinal: Yes (S/P MATILDE) Chronic Constipation, Chronic Diarrhea, Gall Bladder Disease Musculoskeletal: Yes Fractures, Contracture Endocrine: No HEENT: No Loss of Vision: Denies Hearing Impairment: Denies Cancer: No Psychosocial: Yes (MR, SEVERE ADAPTIVE BEHAVIOR DISORDER, CONVULSIONS, DELUSIONAL DISORDER) Anxiety Integumentary: No Blood Disorders: Yes (ANEMIA) Adverse Reaction/Blood Tranf: No Family Medical History Reviewed Nursing Family Hx PAST SURGICAL HISTORY: -SURGERY ON ALL LEFT TOES -EGD'S/COLONSCOPIES -RIGHT FEMUR FX/ORIF -PROSTATE SURGERY ADDITIONAL PMH: -POST POLIO SYNDROME WITH LEFT SIDED CONTRACTURES, 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--PT IS NON-AMBULATORY -RIGHT FEMUR FX/ORIF WITH 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 1.0oz. 81.422823jo; 26.00 BMI Method:Stated General Appearance: WD/WN, Mild Distress Eyes: Bilateral Eye Normal Inspection, Bilateral Eye PERRL HEENT: PERRL/EOMI, TMs Normal, Normal ENT Inspection, Pharynx Normal Neck: Limited Range of Motion (held in flexed position) Respiratory: Chest Non Tender, No Accessory Muscle Use, No Respiratory Distress, Decreased Breath Sounds Cardiovascular: Regular Rate, Rhythm, No Murmur, Normal Peripheral Pulses Gastrointestinal: Normal Bowel Sounds, Non Tender, Soft, Distended; No Tenderness Back: Normal Inspection; No No CVA Tenderness, No No Vertebral Tenderness Extremity: Normal Capillary Refill, Normal Inspection, Pedal Edema (support stockings in place) Neurologic/Psychiatric: Alert (eyes open, follows voice. Does not follow simple commands. ), Normal Mood/Affect (at baseline per caregiver ) Skin: normal color, warm/dry; No rash, No ulcerations Focused Exam Lactate Level 03/16/22 12:57: Lactic Acid Level 0.86 Time of Focused Exam: 14:00 Respiratory: Chest Non Tender, No Accessory Muscle Use, Decreased Breath Sounds Cardiovascular: Regular Rate, Rhythm, No Murmur, Normal Peripheral Pulses Capillary Refill: Less Than 3 Seconds Skin: normal color, warm/dry Lactic Acid Level Laboratory Tests Test 03/16/22 12:57 Lactic Acid Level 0.86 MMOL/L (0.50-2.00) Within 3hrs of presentation: Admin fluids, Admin 30ml/kg IBW due to BMI>30, Admin ABX, Blood cultures prior to ABX's, Focus exam, Lactate level, Vasopressin therapy Progress/Results/Core Measures Suspected Sepsis Recent Fever Within 48 Hours: Yes Infection Criteria Present: Suspected New Infection Within 3hrs of presentation: Admin fluids, Admin 30ml/kg IBW due to BMI>30, Admin ABX, Blood cultures prior to ABX's, Focus exam, Lactate level, Vasopressin therapy SIRS Temperature: Pulse: 81 Respiratory Rate: 16 Laboratory Tests 03/16/22 12:57: White Blood Count 20.5H Blood Pressure 67 /30 Mean: 42 03/16/22 12:57: Lactic Acid Level 0.86 Laboratory Tests 03/16/22 12:57: Creatinine 1.29, INR Comment 1.0, Platelet Count 169, Total Bilirubin 0.5 Results/Orders Lab Results Laboratory Tests Test 03/16/22 12:57 03/16/22 13:06 03/16/22 15:35 Range/Units White Blood Count 20.5 H 4.3-11.0 10^3/uL Red Blood Count 3.16 L 4.30-5.52 10^6/uL Hemoglobin 10.3 L 13.3-17.7 g/dL Hematocrit 31 L 40-54 % Mean Corpuscular Volume 97 80-99 fL Mean Corpuscular Hemoglobin 33 25-34 pg Mean Corpuscular Hemoglobin Concent 34 32-36 g/dL Red Cell Distribution Width 15.3 H 10.0-14.5 % Platelet Count 169 130-400 10^3/uL Mean Platelet Volume 10.6 9.0-12.2 fL Immature Granulocyte % (Auto) 0 % Neutrophils (%) (Auto) 90 H 42-75 % Lymphocytes (%) (Auto) 6 L 12-44 % Monocytes (%) (Auto) 4 0-12 % Eosinophils (%) (Auto) 0 0-10 % Basophils (%) (Auto) 0 0-10 % Neutrophils # (Auto) 18.5 H 1.8-7.8 10^3/uL Lymphocytes # (Auto) 1.1 1.0-4.0 10^3/uL Monocytes # (Auto) 0.7 0.0-1.0 10^3/uL Eosinophils # (Auto) 0.0 0.0-0.3 10^3/uL Basophils # (Auto) 0.1 0.0-0.1 10^3/uL Immature Granulocyte # (Auto) 0.1 0.0-0.1 10^3/uL Neutrophils % (Manual) 65 % Lymphocytes % (Manual) 6 % Monocytes % (Manual) 1 % Eosinophils % (Manual) 0 % Basophils % (Manual) 0 % Band Neutrophils 26 % Polychromasia SLIGHT Anisocytosis SLIGHT Prothrombin Time 13.7 12.2-14.7 SEC INR Comment 1.0 0.8-1.4 Activated Partial Thromboplast Time 39 H 24-35 SEC Sodium Level 139 135-145 MMOL/L Potassium Level 4.9 3.6-5.0 MMOL/L Chloride Level 106 98-107 MMOL/L Carbon Dioxide Level 23 21-32 MMOL/L Anion Gap 10 5-14 MMOL/L Blood Urea Nitrogen 22 H 7-18 MG/DL Creatinine 1.29 0.60-1.30 MG/DL Estimat Glomerular Filtration Rate 64 BUN/Creatinine Ratio 17 Glucose Level 80 70-105 MG/DL Lactic Acid Level 0.86 0.50-2.00 MMOL/L Calcium Level 8.7 8.5-10.1 MG/DL Corrected Calcium 9.4 8.5-10.1 MG/DL Total Bilirubin 0.5 0.1-1.0 MG/DL Aspartate Amino Transf (AST/SGOT) 31 5-34 U/L Alanine Aminotransferase (ALT/SGPT) 34 0-55 U/L Alkaline Phosphatase 298 H 40-136 U/L Troponin I < 0.028 <0.028 NG/ML Total Protein 6.2 L 6.4-8.2 GM/DL Albumin 3.1 L 3.2-4.5 GM/DL Influenza Type A (RT-PCR) Not Detected Not Detecte Influenza Type B (RT-PCR) Not Detected Not Detecte SARS-CoV-2 RNA (RT-PCR) Not Detected Not Detecte Urine Color YELLOW Urine Clarity SL CLOUDY Urine pH 6.0 5-9 Urine Specific [place] <=1.005 1.016-1.022 Urine Protein NEGATIVE NEGATIVE Urine Glucose (UA) NEGATIVE NEGATIVE Urine Ketones NEGATIVE NEGATIVE Urine Nitrite POSITIVE H NEGATIVE Urine Bilirubin NEGATIVE NEGATIVE Urine Urobilinogen 0.2 < = 1.0 MG/DL Urine Leukocyte Esterase 3+ H NEGATIVE Urine RBC (Auto) 1+ H NEGATIVE Urine RBC 0-2 /HPF Urine WBC 50-100 H /HPF Urine Crystals NONE /LPF Urine Bacteria LARGE H /HPF Urine Casts NONE /LPF Urine Mucus NEGATIVE /LPF Urine Culture Indicated YES My Orders Orders - KELLGENE Scanlon Ns Iv 1000 Ml (Sodium Chloride 0.9%) (03/16/22 12:57) Cbc With Automated Diff (03/16/22 13:02) Comprehensive Metabolic Panel (03/16/22 13:02) Blood Culture (03/16/22 13:02) Urinalysis (03/16/22 13:02) Urine Culture (03/16/22 13:02) Protime With Inr (03/16/22 13:02) Partial Thromboplastin Time (03/16/22 13:02) Chest 1 View, Ap/Pa Only (03/16/22 13:02) Ed Iv/Invasive Line Start (03/16/22 13:02) Troponin I Michael (03/16/22 13:02) Vital Signs Adult Sepsis Patie Q15M (03/16/22 13:02) O2 (03/16/22 13:02) Lactic Acid Analyzer (03/16/22 13:02) Influenza A And B By Pcr (03/16/22 13:02) Ns Iv 1000 Ml (Sodium Chloride 0.9%) (03/16/22 13:15) Covid 19 Inhouse Test (03/16/22 13:02) Manual Differential (03/16/22 12:57) Ed Iv/Invasive Line Start (03/16/22 13:21) Ns Iv 1000 Ml (Sodium Chloride 0.9%) (03/16/22 13:30) Cefepime Injection (Maxipime Injection) (03/16/22 14:00) Norepinephrine 8 Mg/250 Ml (Norepinephri (03/16/22 13:59) Prolactin (03/16/22 14:04) Procalcitonin (Pct) (03/16/22 14:04) Ed Iv/Invasive Line Start (03/16/22 14:27) Ns Iv 1000 Ml (Sodium Chloride 0.9%) (03/16/22 14:30) Urine Culture (03/16/22 15:35) Vital Signs/I&O 03/16/22 03/16/22 03/16/22 03/16/22 12:41 14:25 15:09 15:24 Temp 35.4 Pulse 81 75 76 Resp 16 B/P (MAP) 67/30 (42) 70/45 111/64 Pulse Ox 90 96 95 O2 Delivery Room Air Room Air Room Air 03/16/22 03/16/22 03/16/22 03/16/22 15:30 15:42 15:42 15:48 Temp 35.4 Pulse 77 78 78 81 Resp 14 B/P (MAP) 119/62 (81) 119/62 Pulse Ox 94 90 O2 Delivery Room Air FiO2 21 03/16/22 03/16/22 03/16/22 16:00 16:00 16:10 Temp 36.2 Pulse 74 73 Resp 15 B/P (MAP) 104/65 (78) 104/65 Pulse Ox 94 O2 Delivery Room Air Capillary Refill : Blood Pressure Mean: 42 Progress Note : Time: 12:41 Progress Note sepsis protocol, start NS 1 L IV. Monitor B/P. Spoke to Dr. Braxton, central line will be placed for pressors. [address] Noe, agreeable with plan of care, will update as labs become available. Hx of recurrent UTIs and aspiration, swallow study in Nov. Possibly aspirated through night. 1315 start 2nd liter of NS. No change in B/P70-80/30-40s. No fever and not tachy. [address], elizabeth start Norepi drip, BP labile 70-80/30-50. Continues with no fever and Pulse 70-80, not taking any cardiac meds to control HR. Cefepime for antibiotic coverage. Catheter clamped since he arrived, no urine to send for UA/Culture. 1430 B/P improved 110/70 at starting rate. Will not titrate. Receiving NS at 175/hr. Spoke to Dr. Noe, agreeable with ICU admission. Diagnostic Imaging Diagonstic Imaging: Xray Plain Films/CT/US/NM/MRI: chest Comments NAME: JASPAL DEL RIO MED REC#: [id number] PT STATUS: REG ER : 1960 PHYSICIAN: GENE CASTORENAP ADMIT DATE: 03/16/22/ER Signed Date of Exam:03/16/22 CHEST 1 VIEW, AP/PA ONLY EXAMINATION: Chest 1 view HISTORY: Altered mental status. Possible seizure. COMPARISON: 02/09/2022. FINDINGS: Patchy and consolidative opacities are seen in the left apex. Additional opacities are seen in the lung bases. No pleural effusion or pneumothorax. Stable cardiac silhouette. IMPRESSION: 1. Patchy and consolidative opacities in the left upper lobe with additional opacities in the lung bases. Findings are concerning for multifocal pneumonia. Dictated by: Dictated on workstation # [id number] Dict: 03/16/22 1337 Trans: 03/16/22 1354 [facility] [id number] Interpreted by: MARTIN CHOWDHURY DO Electronically signed by: MARTIN CHOWDHURY DO 03/16/22 1354 Departure Impression Primary Impression: Sepsis Qualified Codes: A41.9 - Sepsis, unspecified organism Additional Impressions: Pneumonia Qualified Codes: J69.0 - Pneumonitis due to inhalation of food and vomit Seizure disorder Disposition: ADMITTED INPATIENT Condition: Critical Admissions Decision to Admit/Date: Mar 16, 2022 Time/Decision to Admit Time: 13:15 Departure-Patient Inst. Referrals: SETH NOE DO (PCP/Family) Primary Care Physician Copy Copies To 1: SETH NOE AMY ARNP Mar 16, 2022 14:16
[2022-03-16 15:48] VITALS: BP 67/30
[2022-03-16 15:56] LABS: BILIRUBIN,URINE NEGATIVE (NEGATIVE); CLARITY,URINE SL CLOUDY; COLOR,URINE YELLOW; GLUCOSE, URINE (UA) NEGATIVE (NEGATIVE); KETONES,URINE NEGATIVE (NEGATIVE); LEUKOCYTE ESTERASE ,URINE 3+ (NEGATIVE); NITRITE,URINE POSITIVE (NEGATIVE); PROTEIN,URINE NEGATIVE (NEGATIVE)
[2022-03-16 15:59] LABS: BACTERIA,URINE LARGE /HPF; RBC,URINE 0-2 /HPF; WBC,URINE 50-100 /HPF
[2022-03-16] MEDS ORDERED: EPINEPHrine 1 MG INJECTION 4 MG in NS (IVPB) 248 ML IV SCH (16:00)
--- NOTE | 2022-03-16 16:07 | Tele-ICU Consult ---
History of Present Illness History of Present Illness Date Seen by Provider: Mar 16, 2022 Time Seen by Provider: 16:05 Date of Admission (Tele-ICU Physician , consultation as per request of PCP Service provided via interactive audio and video telecommunications E-CARE system to a patient admitted to ICU bed in [facility]. Available chart/ vitals / labs / Images reviewed H&P is from ER notes Patient's information available about PMH, Shx, Fhx allergy reviewed inEMR. ROS as per chart and RN report Now in ICU, hemodynamically stable Video assessment done using teleICU camera, rest of exam as per RN Discussed with RN. Consultants: Hospital course: A/P SEPSIS WITH SHOCK - received 2 L in ER - on levo , to wean - presumed PNA PNA - presumed aspiration with Sz - cont rocephin and z amax Dysphagia, known -aspiration with the nectar consistency barium - resume mofified diet Sx dz - to resume keppra Anemia - no bleeding , follow s/p suprapubic cathetr - UA pending, making urine Lines : fem line 03/16 , (Central Line Necessity Reviewed) Martins: SPB in place OG: Nutrition: npo Analgesia: Anxiety/ delirium VTE Prophylaxis: hep Stress Ulcer Prophylaxis: ppi Plans in collaboration with bedside consultants and IM MDs. Discussed with RN to reach out if any questions or concerns A total of33 minutes of critical care time was devoted to this patient today, required to treat and/or prevent further deterioration of critical care condition ( as above ) . I am remotely monitoring this patient from another state. I am unable to do the bedside exam, and history/physical and pertinent information is taken from other notes in the computer and bedside staff. . Allergies and Home Medications Allergies Coded Allergies: lorazepam (Verified Adverse Reaction, Intermediate, HYPERACTIVITY, 12/07/21) Home Medications Acetaminophen 500 Mg Tablet, 500 MG PO Q6H PRN for PAIN-MILD (1-4) OR TEMPATURE, (Reported) Aripiprazole 10 Mg Tablet, 10 MG PO 2100, (Reported) Ascorbate Calcium 500 Mg Tablet, 500 MG PO DAILY, (Reported) Bismuth Subsalicylate 262 Mg/15 Ml Oral.susp, PO UD PRN for UPSET STOMACH/INDIGESTION, (Reported) Calamine/Zinc Oxide 177 Ml Lotion, TP UD PRN for RASH, (Reported) Ciclopirox 8 % Solution, 1 APPLIC TP 2100, (Reported) APPLY TO AFFECTED TOENAILS Citalopram Hydrobromide 40 Mg Tablet, 40 MG PO DAILY, (Reported) Cranberry Extract 425 Mg Capsule, 425 MG PO BID, (Reported) Fluticasone Propionate 16 Gm [place].susp, 1 SPRAY NS BID, (Reported) Guaifenesin/D-Methorphan Hb/PE 118 Ml Liquid, PO UD PRN for COUGH/CONGESTION, (R eported) Hydrocortisone 1 % Cream..g., 1 APPLIC TP UD PRN for RASH AND ITCHING, (Reported) Ketoconazole 2 % Shampoo, 1 APPLIC TOP TWICE WEEKLY, (Reported) APPLY TO FACE L. Rhamnosus GG/Inulin 10 Billion Cell-200 Mg Cap.sprink, 1 CAP PO DAILY, (Reported) Levetiracetam 1,000 Mg Tablet, 1,000 MG PO BID, (Reported) Levetiracetam 500 Mg Tablet, 500 MG PO DAILY Take at noon in addition to the Keppra 1000 mg morning and evening. Prescribed by: CARMEN KING on 01/25/22 1134 Loratadine 10 Mg Tablet, 10 MG PO 2100, (Reported) Menthol 0.8 % Powder, 1 APPLIC TP UD PRN for FOOT ODOR AND WETNESS, (Reported) Metronidazole 0.75 % Lotion, 1 APPLIC TOP 2100, (Reported) APPLY TO FACE Mirtazapine 15 Mg Tablet, 15 MG PO 2100, (Reported) Naphazoline HCl/Pheniramine 0.10210 %-0.315 % Drops, 1-2 DROPS OU UD PRN for REDNESS/SWELLING FROM ALLERGY, (Reported) Neomycin Dinh/Bacitrac Zn/Poly 28.4 Gm Oint...g., TP UD PRN for MINOR CUTS, SCRAPES, AND SORES, (Reported) Nitrofurantoin Monohyd/M-Cryst 100 Mg Capsule, 1 TAB PO BID Prescribed by: SETH CANALES on 01/11/22 1012 Nystatin 100,000 Unit/Gram Cream..g., 1 APPLIC TOP BID PRN for SCALING RASH, (Reported) Omeprazole 40 Mg Capsule.dr, 40 MG PO DAILY Prescribed by: SETH CANALES on 01/11/22 1011 Pnv with Ca,No.72/Iron/FA 27 Mg Iron-1 Mg Tablet, 1 EA PO DAILY, (Reported) Polyethylene Glycol 3350 17 Gm Powd.pack, 17 GM PO BID, (Reported) Sennosides/Docusate Sodium 8.6 Mg-50 Mg Tablet, 2 EA PO BID, (Reported) Witch [place] 50 % Med..pad, 1 EACH TP QID PRN for HEMMORRHOID DISCOMFORT, (Reported) Past Medical/Social/Family Hx Patient Social History Tobacco Use?: No Substance use?: No Alcohol Use?: No Pt stated abuse/neglect: No Immunizations Up To Date Influenza Vaccine Up-to-Date: No; Not Current Tetanus Booster (TDap): More Than 5 Years Hepatitis B: Yes TB Skin Test: Negative Date of Pneumonia Vaccine: Jan 23, 2015 Current Status Advance Directives: Yes Advance Directive Location: Copy placed in chart Communicates: Verbally Primary Language: Croatian Preferred Spoken Language: Croatian Is interpretation needed?: No Sensory deficits: Vision impairment Implanted or Applied Medical D: None Family Medical History Family Hx: PAST SURGICAL HISTORY: -SURGERY ON ALL LEFT TOES -EGD'S/COLONSCOPIES -RIGHT FEMUR FX/ORIF -PROSTATE SURGERY ADDITIONAL PMH: -POST POLIO SYNDROME WITH LEFT SIDED CONTRACTURES, 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 1.0oz. 81.078348od; 25.41 BMI Method:Stated Respiratory: Decreased Breath Sounds Cardiovascular: Other Peripheral Pulses: 1+ Femoral (L) Skin: normal color Lactic Acid Level Laboratory Tests Test 03/16/22 12:57 Lactic Acid Level 0.86 MMOL/L (0.50-2.00) Within 3hrs of presentation: Admin fluids, Admin 30ml/kg IBW due to BMI>30, Admin ABX, Blood cultures prior to ABX's, Focus exam, Lactate level, Vasopressin therapy Exam Exam Patient acknowledged, consented, and participated in this virtual visit which was conducted using real time audio/video Vital Signs Date Time Temp Pulse Resp B/P (MAP) Pulse Ox O2 Delivery O2 Flow Rate FiO2 03/16/22 16:00 36.2 03/16/22 15:48 35.4 81 90 21 03/16/22 15:42 78 119/62 03/16/22 15:42 78 03/16/22 15:30 77 14 119/62 (81) 94 Room Air 03/16/22 15:24 76 111/64 95 Room Air 03/16/22 14:25 75 70/45 03/16/22 12:41 35.4 81 16 67/30 (42) 90 Room Air Height & Weight Height: 5'9.00" Weight: 180lbs. 1.0oz. 81.520301bw; 25.41 BMI Method:Stated General Appearance: No Apparent Distress Results Lab Laboratory Tests 03/16/22 12:57 Assessment/Plan Assessment/Plan 1 CARMEN DENISE MD Mar 16, 2022 16:07
[2022-03-16] MEDS: VASOPRESSIN INJECTION 20 UNIT in NS (IVPB) 100 ML IV SCH (16:10)
[2022-03-16] MEDS: NOREPINEPHRINE 8 MG/250 ML 250 ML IV SCH (16:10)
[2022-03-16] MEDS: NS IV 1000 ML 1,000 ML IV SCH ×2 (16:11→22:48)
[2022-03-16] MEDS: AZITHROMYCIN INJECTION 500 MG in NS (IVPB) 250 ML IV SCH (16:14)
[2022-03-16] MEDS ORDERED: PREG50CA65 PO (16:44)
[2022-03-16] MEDS ORDERED: LAMO100T5 PO (16:44)
[2022-03-16] MEDS ORDERED: RT-ALBUTEROL SULF 2.5 MG/3 ML PRE-MIX VIAL INH PRN (17:00)
[2022-03-16] MEDS ORDERED: NS IV 500 ML 500 ML IV PRN (17:00)
[2022-03-16] MEDS: inSUlin ASPART (NovoLOG) 1 UNIT/0.01 ML (CHARGE PER UNIT) SC SCH (17:50)
[2022-03-16] MEDS: cefTRIAXone 1 GM PRE-MIX 50 ML IV SCH (21:22)
[2022-03-16] MEDS: RT-ALBUTEROL SULF 2.5 MG/3 ML PRE-MIX VIAL INH SCH (21:38)
[2022-03-17] MEDS: VASOPRESSIN INJECTION 20 UNIT in NS (IVPB) 100 ML IV SCH ×2 (03:07→14:16)
[2022-03-17 05:25] LABS: BASOPHILS % (AUTO) 0 % (0-10); EOSINOPHILS # (AUTO) 0.1 10^3/uL (0.0-0.3); EOSINOPHILS % (AUTO) 1 % (0-10); HEMATOCRIT 27 % (40-54); LYMPHOCYTES # (AUTO) 1.2 10^3/uL (1.0-4.0); LYMPHOCYTES % (AUTO) 10 % (12-44); MEAN CORPUSCULAR HEMOGLOBIN 32 pg (25-34); MEAN CORPUSCULAR HGB CONC 33 g/dL (32-36); MEAN CORPUSCULAR VOLUME 98 fL (80-99); MEAN PLATELET VOLUME 10.8 fL (9.0-12.2); MONOCYTES # (AUTO) 0.5 10^3/uL (0.0-1.0); MONOCYTES % (AUTO) 4 % (0-12); NEUTROPHILS # (AUTO) 10.4 10^3/uL (1.8-7.8); NEUTROPHILS % (AUTO) 85 % (42-75); PLATELET COUNT 114 10^3/uL (130-400); WHITE BLOOD COUNT 12.3 10^3/uL (4.3-11.0)
[2022-03-17 05:35] LABS: POTASSIUM 4.7 MMOL/L (3.6-5.0)
[2022-03-17 05:36] LABS: CALCIUM 8.5 MG/DL (8.5-10.1)
[2022-03-17 05:40] LABS: CREATININE SERUM 1.05 MG/DL (0.60-1.30); PHOSPHORUS 3.1 MG/DL (2.3-4.7)
[2022-03-17 05:42] LABS: MAGNESIUM 1.9 MG/DL (1.6-2.4)
[2022-03-17] MEDS: NS IV 1000 ML 1,000 ML IV SCH ×3 (05:45→18:43)
[2022-03-17] MEDS: POTASSIUM CL 10MEQ/50ML IVPB 50 ML IV SCH (06:00)
[2022-03-17] MEDS: KCL 20 MEQ TAB (K-DUR) PO SCH (06:00)
[2022-03-17] MEDS: MAGNESIUM 1 GM/100 ML IVPB 100 ML IV SCH (06:00)
[2022-03-17] MEDS: inSUlin ASPART (NovoLOG) 1 UNIT/0.01 ML (CHARGE PER UNIT) SC SCH ×5 (06:00→23:31)
[2022-03-17] MEDS: PANTOPRAZOLE 40 MG (PROTONIX) VIAL IVP SCH (08:07)
[2022-03-17] MEDS: RT-ALBUTEROL SULF 2.5 MG/3 ML PRE-MIX VIAL INH SCH ×2 (08:26→21:52)
[2022-03-17] MEDS: NOREPINEPHRINE 8 MG/250 ML 250 ML IV SCH (09:07)
--- NOTE | 2022-03-17 09:28 | Tele-ICU Progress Note ---
Subjective Date Seen by a Provider: Mar 17, 2022 Subjective/Events-last exam This virtual visit was conducted using real time audio/video. Thank you for asking us to see this patient for respiratory insufficiency due to asp pna. Also septic shock, UTI. Recent events: Now off Levo. BC + for GPC. PMH: Developmentally disabled, behavioral disorder, seizure disorder. PE: Appears comfortable. VSS. O2 sat 96% on RA. HEENT: No obvious masses, adenopathy or JVD. Chest: clear to auscultation. CV: RRR S1 S2 No murmur or added sounds. Abd: Non-tender. Bowel sounds Y. : Unremarkable. Suprapubic cath. RAIL DIRECTOR/psychiatric: Grossly intact. No obvious focal findings. Extremities: 1+ edema. Capillary refill < 3 seconds. Skin: unremarkable. Results: Elevated WCC 12.3, improving. Decreased Hb 9.0. CXR: VITO infilt. Available chart/ vitals / labs / images reviewed. Video assessment done using teleICU camera, rest of exam as per RN. A/P: Critical Care: critically ill, but improving patient. Cont.abx, PPI, Hep., Keppra, SSI. Discussed with RN Rama. Asked RN to reach out to eICU if any questions or concerns later. Time spent with patient/coordination of care with other health professionals (mins): 20 Sepsis Event Evaluation Height, Weight, BMI Height: 5'9.00" Weight: 180lbs. 1.0oz. 81.814562gx; 28.83 BMI Method:Stated Focused Exam Lactate Level 03/16/22 12:57: Lactic Acid Level 0.86 Time of Focused Exam: 14:00 Exam Exam Patient acknowledged, consented, and participated in this virtual visit which was conducted using real time audio/video Vital Signs Date Time Temp Pulse Resp B/P (MAP) Pulse Ox O2 Delivery O2 Flow Rate FiO2 03/17/22 09:00 98 14 147/84 (105) 95 Room Air 03/17/22 08:27 100 Room Air 03/17/22 08:00 87 18 122/67 (85) 93 Room Air 03/17/22 07:26 36.8 96 23 139/73 (95) 94 Room Air 03/17/22 07:00 99 03/17/22 07:00 96 18 139/73 (95) 97 Room Air 03/17/22 06:00 89 9 131/79 (96) 95 Room Air 03/17/22 05:00 73 16 127/69 (88) 91 Room Air 03/17/22 04:00 36.1 03/17/22 04:00 78 15 146/77 (100) 97 Room Air 03/17/22 04:00 96 Room Air 03/17/22 03:00 80 11 131/81 (98) 97 Room Air 03/17/22 02:00 79 15 133/83 (100) 97 Room Air 03/17/22 01:00 77 03/17/22 01:00 73 12 125/75 (92) 99 Room Air 03/17/22 00:15 74 133/82 03/17/22 00:00 77 14 132/81 (98) 99 Room Air 03/17/22 00:00 35.9 03/16/22 23:59 97 Room Air 03/16/22 23:00 80 12 131/79 (96) 99 Room Air 03/16/22 22:00 83 32 122/74 (90) 97 Room Air 03/16/22 21:38 98 Room Air 03/16/22 21:00 70 13 123/75 (91) 95 Room Air 03/16/22 20:00 36.3 03/16/22 20:00 95 Room Air 03/16/22 20:00 73 14 120/75 (90) 95 Room Air 03/16/22 19:00 79 8 106/68 (81) 95 Room Air 03/16/22 19:00 76 03/16/22 18:00 69 14 98/61 (73) 98 Room Air 03/16/22 17:00 75 14 89/55 (66) 97 Room Air 03/16/22 16:10 73 104/65 03/16/22 16:00 36.2 03/16/22 16:00 74 15 104/65 (78) 94 Room Air 03/16/22 15:48 35.4 81 90 21 03/16/22 15:42 78 119/62 03/16/22 15:42 78 03/16/22 15:30 77 14 119/62 (81) 94 Room Air 03/16/22 15:24 76 111/64 95 Room Air 03/16/22 15:09 96 Room Air 03/16/22 14:25 75 70/45 03/16/22 12:41 35.4 81 16 67/30 (42) 90 Room Air I & O 03/17/22 07:00 Intake Total 5070 ml Output Total 1780 ml Balance 3290 ml Height & Weight Height: 5'9.00" Weight: 180lbs. 1.0oz. 81.351622vu; 28.83 BMI Method:Stated General Appearance: WD/WN, Mild Distress HEENT: PERRL/EOMI, TMs Normal, Normal ENT Inspection, Pharynx Normal Neck: Limited Range of Motion (held in flexed position) Respiratory: Chest Non Tender, No Accessory Muscle Use, Decreased Breath Sounds Cardiovascular: Regular Rate, Rhythm, No Murmur, Normal Peripheral Pulses Capillary Refill: Less Than 3 Seconds Peripheral Pulses: 1+ Femoral (L) Extremity: Normal Capillary Refill, Normal Inspection, Pedal Edema (support stockings in place) Neurologic/Psychiatric: Alert (eyes open, follows voice. Does not follow simple commands. ), Normal Mood/Affect (at baseline per caregiver ) Results Lab Laboratory Tests 03/16/22 12:57 03/17/22 05:15 Assessment/Plan Assessment/Plan See free text. Critical Care: Critically Ill Patient NICOLAS FLYNN MD Mar 17, 2022 09:28
[2022-03-17] MEDS ORDERED: ONDANSETRON 4 MG/2 ML (SDV) Z0FRAN IVP PRN (11:15)
--- NOTE | 2022-03-17 13:31 | History & Physical ---
History of Present Illness History of Present Illness Reason for visit/HPI This is a 61 year old male with a history of developmental disabilities and seizures who was brought to the emergency room after having a night of yelling out. There was concern by his residential staff that he may have aspirated. Upon examination in the emergency room he was found to be hypotensive with septic shock. He had a central line placed and was started on a norepinephrine drip as well as aggressive IVFs. His CXR did show a left upper lobe infiltrate and there was also concern about underlying UTI due to his chronic indwelling martins catheter. He was given a dose of cefepime in the ER. He will be admitted to the ICU on a norepinephrine drip as well as rocephin and zithromax. He will be continued on keppra and his lamictal will also be restarted. Date of Admission Mar 16, 2022 at 13:00 Date Seen by a Provider: Mar 17, 2022 Time Seen by a Provider: 11:25 I consulted on this patient on 03/17/22 13:26 Attending Physician Seth Noe DO Admitting Physician Admitting Physician: Seth Noe DO Attending Physician: Seth Noe DO Consult Allergies and Home Medications Allergies Coded Allergies: lorazepam (Verified Adverse Reaction, Intermediate, HYPERACTIVITY, 12/07/21) Patient Home Medication List Home Medication List Reviewed: Yes Acetaminophen (Acetaminophen) 500 Mg Tablet, 500 MG PO Q6H PRN for PAIN-MILD (1- 4) OR TEMPATURE, (Reported) Entered as Reported by: HAROLDO STONE on 06/03/16 1413 Last Action: Reviewed Aripiprazole (Aripiprazole) 10 Mg Tablet, 10 MG PO 2100, (Reported) Entered as Reported by: MAHENDRA SANTOS on 12/21/21 1542 Last Action: Reviewed Bismuth Subsalicylate (Pepto-Bismol) 262 Mg/15 Ml Oral.susp, PO UD PRN for UPSET STOMACH/INDIGESTION, (Reported) Entered as Reported by: SREE MICHELLE on 07/01/17 1951 Last Action: Reviewed Calamine/Zinc Oxide (Calamine Lotion) 177 Ml Lotion, TP UD PRN for RASH, (Reported) Entered as Reported by: SREE MICHELLE on 07/01/17844 Last Action: Reviewed Ciclopirox (Ciclopirox) 8 % Solution, 1 APPLIC TP 2100, (Reported) Entered as Reported by: MAHENDRA SANTOS on 12/21/211541 Last Action: Reviewed Citalopram Hydrobromide (Citalopram HBr) 40 Mg Tablet, 40 MG PO DAILY, (Reported) Entered as Reported by: MAHENDRA SANTOS on 12/21/211541 Last Action: Reviewed Cranberry Extract (Cranberry) 425 Mg Capsule, 425 MG PO BID, (Reported) Entered as Reported by: MAHENDRA SANTOS on 12/21/211541 Last Action: Reviewed Fluticasone Propionate (Fluticasone Propionate) 16 Gm [place].susp, 1 SPRAY NS BID, (Reported) Entered as Reported by: SREE MICHELLE on 07/01/17844 Last Action: Reviewed Guaifenesin/D-Methorphan Hb/PE (Robitussin Cough-Cold Cf Liq) 118 Ml Liquid, PO UD PRN for COUGH/CONGESTION, (Reported) Entered as Reported by: SREE MICHELLE on 07/01/17851 Last Action: Reviewed Hydrocortisone (Hydrocortisone) 1 % Cream..g., 1 APPLIC TP UD PRN for RASH AND ITCHING, (Reported) Entered as Reported by: MAHENDRA SANTOS on 12/21/211541 Last Action: Reviewed Ketoconazole (Ketoconazole) 2 % Shampoo, 1 APPLIC TOP TWICE WEEKLY, (Reported) Entered as Reported by: MAHENDRA SANTOS on 12/21/211541 Last Action: Reviewed L. Rhamnosus GG/Inulin (Culturelle Capsule) 10 Billion Cell-200 Mg Cap.sprink, 1 CAP PO DAILY, (Reported) Entered as Reported by: SREE MICHELLE on 07/01/17844 Last Action: Reviewed Lamotrigine (Lamotrigine) 100 Mg Tablet, 100 MG PO BID, (Reported) Entered as Reported by: JUANITA VILLAGRAN on 03/16/22 1644 Last Action: Reviewed Levetiracetam (Levetiracetam) 1,000 Mg Tablet, 1,000 MG PO BID, (Reported) Entered as Reported by: MAHENDRA SANTOS on 01/08/22 1201 Last Action: Reviewed Loratadine (Loratadine) 10 Mg Tablet, 10 MG PO 2100, (Reported) Entered as Reported by: SREE MICHELLE on 07/01/17844 Last Action: Reviewed Menthol (Gold Rosario Medicated Body) 0.8 % Powder, 1 APPLIC TP UD PRN for FOOT ODOR AND WETNESS, (Reported) Entered as Reported by: MAHENDRA SANTOS on 12/21/211541 Last Action: Reviewed Metronidazole (Metronidazole) 0.75 % Lotion, 1 APPLIC TOP 2100, (Reported) Entered as Reported by: MAHENDRA SANTOS on 12/21/211541 Last Action: Reviewed Mirtazapine (Mirtazapine) 15 Mg Tablet, 15 MG PO 2100, (Reported) Entered as Reported by: MAHENDRA SANTOS on 12/21/211541 Last Action: Reviewed Naphazoline HCl/Pheniramine (Opcon-A Eye Drops) 0.92469 %-0.315 % Drops, 1-2 DROPS OU UD PRN for REDNESS/SWELLING FROM ALLERGY, (Reported) Entered as Reported by: SREE MICHELLE on 07/01/17851 Last Action: Reviewed Neomycin Dinh/Bacitrac Zn/Poly (Gnp Triple Antibiotic Ointment) 28.4 Gm Oint...g., TP UD PRN for MINOR CUTS, SCRAPES, AND SORES, (Reported) Entered as Reported by: SREE MICHELLE on 07/01/17851 Last Action: Reviewed Nystatin (Nystatin) 100,000 Unit/Gram Cream..g., 1 APPLIC TOP BID PRN for SCALING RASH, (Reported) Entered as Reported by: MAEHNDRA SANTOS on 12/21/211541 Last Action: Reviewed Omeprazole (Omeprazole) 40 Mg Capsule.dr, 40 MG PO DAILY Prescribed by: SETH NOE on 01/11/22 1011 Last Action: Reviewed Pnv with Ca,No.72/Iron/FA ( Plus Tablet) 27 Mg Iron-1 Mg Tablet, 1 EA PO DAILY, (Reported) Entered as Reported by: MAHENDRA SANTOS on 12/21/211541 Last Action: Reviewed Polyethylene Glycol 3350 (Polyethylene Glycol 3350) 17 Gm Powd.pack, 17 GM PO BID, (Reported) Entered as Reported by: IRASEMA HUMPHREY on 09/28/18 1428 Last Action: Reviewed Pregabalin (Pregabalin) 50 Mg Capsule, 50 MG PO DAILY, (Reported) Entered as Reported by: JUANITA VILLAGRAN on 03/16/22 1644 Last Action: Reviewed Sennosides/Docusate Sodium (Stimulant Laxative Plus Tablet) 8.6 Mg-50 Mg Tablet, 2 EA PO BID, (Reported) Entered as Reported by: MAHENDRA SANTOS on 12/21/21 1542 Last Action: Reviewed [place] (Tucks) 50 % Med..pad, 1 EACH TP QID PRN for HEMMORRHOID DISCOMFORT, (Reported) Entered as Reported by: MAHENDRA SANTOS on 01/08/22 113 Last Action: Reviewed Discontinued Medications Ascorbate Calcium (Vitamin C) 500 Mg Tablet, 500 MG PO DAILY, (Reported) Discontinued Reason: No Longer Taking Entered as Reported by: MAHENDRA SANTOS on 01/08/22 113 Last Action: Discontinued Levetiracetam (Keppra) 500 Mg Tablet, 500 MG PO DAILY Discontinued Reason: No Longer Taking Prescribed by: CARMEN KING on 01/25/22 1134 Last Action: Discontinued Nitrofurantoin Monohyd/M-Cryst (Macrobid 100 mg Capsule) 100 Mg Capsule, 1 TAB PO BID Discontinued Reason: No Longer Taking Prescribed by: SETH NOE on 01/11/22 1012 Last Action: Discontinued Past Nwbwnyn-Bojuiu-Ttqvtc Hx Patient Social History Tobacco Use?: No Substance use?: No Alcohol Use?: No Pt feels they are or have been: No Immunizations Up To Date Date of Influenza Vaccine: Dec 24, 2021 Tetanus Booster (TDap): More Than 5 Years Hepatitis B: Yes PED Vaccines UTD: No Date of Pneumonia Vaccine: Jan 23, 2015 Seasonal Allergies Seasonal Allergies: Yes Current Status Advance Directives: Yes Advance Directive Location: Copy placed in chart Communicates: Verbally Primary Language: Icelandic Preferred Spoken Language: Icelandic Is interpretation needed?: No Sensory deficits: Vision impairment Implanted or Applied Medical D: None Past Medical History Surgeries: Eye Surgery, Gallbladder, Orthopedic Currently Using CPAP: No Currently Using BIPAP: No Developmental Disorder, Seizure Disorder Sexually Transmitted Disease: No HIV/AIDS: No Prostate Problems, UTI-Chronic Chronic Constipation, Chronic Diarrhea, Gall Bladder Disease Fractures, Contracture Loss of Vision: Denies Hearing Impairment: Denies Anxiety Blood Disorders: Yes (ANEMIA) Adverse Reaction/Blood Tranf: No Family Medical History Reviewed Nursing Family Hx PAST SURGICAL HISTORY: -SURGERY ON ALL LEFT TOES -EGD'S/COLONSCOPIES -RIGHT FEMUR FX/ORIF -PROSTATE SURGERY ADDITIONAL PMH: -POST POLIO SYNDROME WITH LEFT SIDED CONTRACTURES, 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--PT IS NON-AMBULATORY -RIGHT FEMUR FX/ORIF WITH 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 OF HIP -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, MINIMAL VERBAL SKILLS -SEVERE ADAPTIVE BEHAVIOR DISORDER -DELUSIONAL DISORDER -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 Review of Systems Constitutional: weakness EENTM: No see HPI, No no symptoms reported, No ear discharge, No hearing loss, No ear pain, No blurred vision, No double vision, No eye pain, No tearing, No vision loss, No dental problems, No hoarseness, No mouth pain, No mouth swelling, No epistaxis, No nose congestion, No nose pain, No throat pain, No throat swelling, No other Respiratory: phlegm Cardiovascular: No no symptoms reported, No see HPI, No chest pain, No edema, No Hx of Intervention, No palpitations, No syncope, No vascular heart diseas, No other Gastrointestinal: constipation Genitourinary: other (chronic martins catheter) Musculoskeletal: muscle weakness Psychiatric/Neurological: Pre-Existing Deficit Physical Exam Vital Signs Vital Signs - First Documented 03/16/22 03/16/22 12:41 15:48 Temp 35.4 Pulse 81 Resp 16 B/P (MAP) 67/30 (42) Pulse Ox 90 O2 Delivery Room Air FiO2 21 Capillary Refill : Less Than 3 Seconds Height, Weight, BMI Height: 5'9.00" Weight: 180lbs. 1.0oz. 81.720935zy; 28.83 BMI Method:Stated General Appearance: No Apparent Distress HEENT: Normal ENT Inspection Neck: Supple Respiratory: Lungs Clear Cardiovascular: Regular Rate, Rhythm Gastrointestinal: Normal Bowel Sounds, Non Tender, Distended Rectal: Deferred Back: No CVA Tenderness Extremity: Non Tender, No Calf Tenderness, No Pedal Edema Neurologic/Psychiatric: Alert Skin: Warm/Dry Comments Laboratory Tests 03/16/22 15:35: Urine Color YELLOW, Urine Clarity SL CLOUDY, Urine pH 6.0, Urine Specific [place] <=1.005, Urine Protein NEGATIVE, Urine Glucose (UA) NEGATIVE, Urine Ketones NEGATIVE, Urine Nitrite POSITIVEH, Urine Bilirubin NEGATIVE, Urine Urobilinogen 0.2, Urine Leukocyte Esterase 3+H, Urine RBC (Auto) 1+H, Urine RBC 0-2, Urine WBC 50-100H, Urine Crystals NONE, Urine Bacteria LARGEH, Urine Casts NONE, Urine Mucus NEGATIVE, Urine Culture Indicated YES 03/16/22 17:47: Glucometer 86 03/16/22 21:30: Procalcitonin 5.96H, Prolactin [Pending] 03/16/22 23:51: Glucometer 117H 03/17/22 05:15: White Blood Count 12.3H, Red Blood Count 2.79L, Hemoglobin 9.0L, Hematocrit 27L, Mean Corpuscular Volume 98, Mean Corpuscular Hemoglobin 32, Mean Corpuscular Hemoglobin Concent 33, Red Cell Distribution Width 15.6H, Platelet Count 114L, Mean Platelet Volume 10.8, Immature Granulocyte % (Auto) 0, Neutrophils (%) (Auto) 85H, Lymphocytes (%) (Auto) 10L, Monocytes (%) (Auto) 4, Eosinophils (%) (Auto) 1, Basophils (%) (Auto) 0, Neutrophils # (Auto) 10.4H, Lymphocytes # (Auto) 1.2, Monocytes # (Auto) 0.5, Eosinophils # (Auto) 0.1, Basophils # (Auto) 0.0, Immature Granulocyte # (Auto) 0.0, Sodium Level 141, Potassium Level 4.7, Chloride Level 112H, Carbon Dioxide Level 20L, Anion Gap 9, Blood Urea Nitrogen 18, Creatinine 1.05, Estimat Glomerular Filtration Rate 82, BUN/Creatinine Ratio 17, Glucose Level 55*L, Calcium Level 8.5, Phosphorus Level 3.1, Magnesium Level 1.9 03/17/22 06:32: Glucometer 82 03/17/22 11:21: Glucometer 49*L 03/17/22 11:52: Glucometer 114H Microbiology 03/16/22 Urine Culture - Preliminary, Resulted Gram Negative Bacillus 1 03/16/22 Blood Culture - Preliminary, Resulted Gram Positive Cocci in Chains Gram Negative Bacillus 1 Assessment/Plan Assessment and Plan 1. Septic Shock--admitted to ICU on norephinephrine drip and IVFs--BP improved and is currently off norephinephrine 2. Left Sided Pneumonia--on rocephin/zithromax 3. History of recurrent UTIs with chronic indwelling martins catheter--above antibiotics until urine culture obtained 4. Seizure Disorder--restart Keppra and Lamictal 5. Developmental Delays/Behavior Disorder--resume home meds 6. Aspiration Risk--patient had swallow study done back in January and will be started on a Mixed Moist 5 diet with moderately thickened liquids Admission Diagnosis Admission Status: Inpatient Order (span 2 midnights) Reason for Inpatient Admission: Will need at least 48hrs of IV abx SETH NOE DO Mar 17, 2022 13:31
[2022-03-17] MEDS ORDERED: SENNA W/DOCUSATE (SENOKOT S) TABLET PO NR (14:00)
[2022-03-17] MEDS: AZITHROMYCIN INJECTION 500 MG in NS (IVPB) 250 ML IV SCH (16:09)
[2022-03-17] MEDS: cefTRIAXone 1 GM PRE-MIX 50 ML IV SCH (20:20)
[2022-03-17] MEDS: SENNA W/DOCUSATE (SENOKOT S) TABLET PO SCH (20:21)
[2022-03-17] MEDS: ACETAMINOPHEN 325 MG TABLET PO PRN (20:21)
[2022-03-18] MEDS: VASOPRESSIN INJECTION 20 UNIT in NS (IVPB) 100 ML IV SCH ×2 (01:21→12:37)
[2022-03-18] MEDS: NS IV 1000 ML 1,000 ML IV SCH ×3 (02:10→15:17)
[2022-03-18] MEDS: NOREPINEPHRINE 8 MG/250 ML 250 ML IV SCH (02:12)
[2022-03-18 03:55] LABS: MEAN CORPUSCULAR VOLUME 99 fL (80-99)
[2022-03-18 03:57] LABS: BASOPHILS % (AUTO) 1 % (0-10); EOSINOPHILS # (AUTO) 0.1 10^3/uL (0.0-0.3); EOSINOPHILS % (AUTO) 2 % (0-10); HEMATOCRIT 25 % (40-54); HEMOGLOBIN 8.2 g/dL (13.3-17.7); LYMPHOCYTES # (AUTO) 1.4 10^3/uL (1.0-4.0); LYMPHOCYTES % (AUTO) 24 % (12-44); MEAN CORPUSCULAR HEMOGLOBIN 32 pg (25-34); MEAN CORPUSCULAR HGB CONC 32 g/dL (32-36); MEAN PLATELET VOLUME 10.2 fL (9.0-12.2); MONOCYTES # (AUTO) 0.4 10^3/uL (0.0-1.0); MONOCYTES % (AUTO) 8 % (0-12); NEUTROPHILS # (AUTO) 3.8 10^3/uL (1.8-7.8); NEUTROPHILS % (AUTO) 66 % (42-75); PLATELET COUNT 106 10^3/uL (130-400); WHITE BLOOD COUNT 5.7 10^3/uL (4.3-11.0)
[2022-03-18 04:24] LABS: POTASSIUM 4.3 MMOL/L (3.6-5.0)
[2022-03-18 04:25] LABS: CALCIUM 8.5 MG/DL (8.5-10.1)
[2022-03-18 04:29] LABS: PHOSPHORUS 3.5 MG/DL (2.3-4.7)
[2022-03-18 04:30] LABS: CREATININE SERUM 1.09 MG/DL (0.60-1.30)
[2022-03-18 04:32] LABS: MAGNESIUM 1.8 MG/DL (1.6-2.4)
[2022-03-18] MEDS: inSUlin ASPART (NovoLOG) 1 UNIT/0.01 ML (CHARGE PER UNIT) SC SCH ×4 (06:00→23:41)
[2022-03-18] MEDS: KCL 20 MEQ TAB (K-DUR) PO SCH (06:00)
[2022-03-18] MEDS: POTASSIUM CL 10MEQ/50ML IVPB 50 ML IV SCH (06:00)
[2022-03-18] MEDS: MAGNESIUM 1 GM/100 ML IVPB 100 ML IV SCH (06:00)
[2022-03-18] MEDS: RT-ALBUTEROL SULF 2.5 MG/3 ML PRE-MIX VIAL INH SCH ×2 (07:35→21:06)
[2022-03-18] MEDS: PANTOPRAZOLE 40 MG (PROTONIX) VIAL IVP SCH (08:12)
[2022-03-18] MEDS: SENNA W/DOCUSATE (SENOKOT S) TABLET PO SCH ×2 (08:12→20:16)
[2022-03-18] MEDS ORDERED: polyethylene glycoL POWDER 17 GM (MIRALAX) PACK PO NR (10:30)
--- NOTE | 2022-03-18 10:34 | Tele-ICU Progress Note ---
Subjective Date Seen by a Provider: Mar 18, 2022 Time Seen by a Provider: 10:34 Subjective/Events-last exam (Tele-ICU Physician , Progress Note ) Service provided via interactive audio and video telecommunications E-CARE system to a patient admitted to ICU bed in [facility]. Patient is seen today due to persistent need of ICU care Available chart/ vitals / labs / Images reviewed Video assessment done using teleICU camera, rest of exam as per RN Discussed with RN Events overnight : Afebrile hemodynamically stable Respiratory - I/O = Drips: Pressors- no Consultants: Hospital course: A/P Hypoxia - itermittent - ? mucous plug., ? miccroaspiration - refused O2 , recovered spontaneously - increase br dailator SEPSIS WITH SHOCK - levo OFF , - stop IVF PNA - presumed aspiration with Sz - cont rocephin and z amax Dysphagia, known -aspiration with the nectar consistency barium / 22 - resume mofified diet Sx dz - to resume keppra Anemia - no bleeding - ? delutional ? follow s/p suprapubic catheter - UA pending, making urine Thrombocytopenia - delutional suspected - will not start w/up no , stop IVF - follow Lines : fem line 03/16 , (Central Line Necessity Reviewed) Henry: SPB in place OG: Nutrition: npo Analgesia: Anxiety/ delirium VTE Prophylaxis: emory Stress Ulcer Prophylaxis: ppi Plans in collaboration with bedside consultants and IM MDs. Discussed with RN to reach out if any questions or concerns A total of 25 minutes of critical care time was devoted to this patient today, required to treat and/or prevent further deterioration of critical care condition ( as above ) . I am remotely monitoring this patient from another state. I am unable to do the bedside exam, and history/physical and pertinent information is taken from other notes in the computer and bedside staff. . Sepsis Event Evaluation Height, Weight, BMI Height: 5'9.00" Weight: 180lbs. 1.0oz. 81.288276ro; 29.25 BMI Method:Stated Focused Exam Lactate Level 03/16/22 12:57: Lactic Acid Level 0.86 Time of Focused Exam: 14:00 Exam Exam Patient acknowledged, consented, and participated in this virtual visit which was conducted using real time audio/video Vital Signs Date Time Temp Pulse Resp B/P (MAP) Pulse Ox O2 Delivery O2 Flow Rate FiO2 03/18/22 09:00 87 22 146/106 (119) 91 Room Air 03/18/22 08:00 90 Room Air 03/18/22 08:00 82 16 157/95 (115) 90 Room Air 03/18/22 07:50 37.0 03/18/22 07:35 92 Room Air 03/18/22 07:01 85 03/18/22 07:00 87 15 157/93 (114) 89 Room Air 03/18/22 06:00 80 21 148/91 (110) 90 Room Air 03/18/22 05:00 85 26 163/92 (115) Room Air 03/18/22 04:00 93 Room Air 03/18/22 04:00 37.1 03/18/22 04:00 81 15 146/83 (104) 91 Room Air 03/18/22 03:00 84 19 132/86 (101) 89 Room Air 03/18/22 02:00 85 22 136/81 (99) 88 Room Air 03/18/22 01:00 86 03/18/22 01:00 86 21 127/71 (89) Room Air 03/18/22 00:00 90 11 127/74 (91) Room Air 03/17/22 23:59 38.0 03/17/22 23:59 90 Room Air 03/17/22 23:00 94 19 124/72 (89) 89 Room Air 03/17/22 22:00 98 27 124/77 (93) 95 Room Air 03/17/22 21:56 96 Room Air 03/17/22 21:00 98 26 122/73 (89) 92 Room Air 03/17/22 20:51 38.0 03/17/22 20:21 38.2 03/17/22 20:00 92 Room Air 03/17/22 20:00 101 26 121/68 (85) 91 Room Air 03/17/22 19:50 38.2 03/17/22 19:00 102 03/17/22 19:00 102 20 127/65 (85) 91 Room Air 03/17/22 18:00 100 22 142/87 (105) 92 Room Air 03/17/22 17:00 98 22 127/77 (94) 92 Room Air 03/17/22 16:22 37.8 03/17/22 16:00 93 24 130/72 (91) 93 Room Air 03/17/22 15:59 38.0 03/17/22 15:57 93 Room Air 03/17/22 15:00 98 25 126/73 (90) 93 Room Air 03/17/22 14:00 90 20 104/65 (78) 90 Room Air 03/17/22 13:00 102 23 124/73 (90) 94 Room Air 03/17/22 12:43 92 03/17/22 12:00 95 20 125/63 (83) 92 Room Air 03/17/22 11:49 95 Room Air 03/17/22 11:16 36.8 03/17/22 11:00 92 20 128/82 (97) 96 Room Air I & O 03/18/22 06:59 Intake Total 4805 ml Output Total 2900 ml Balance 1905 ml Height & Weight Height: 5'9.00" Weight: 180lbs. 1.0oz. 81.348535zj; 29.25 BMI Method:Stated General Appearance: No Apparent Distress HEENT: Normal ENT Inspection Neck: Supple Respiratory: Lungs Clear Cardiovascular: Regular Rate, Rhythm Capillary Refill: Less Than 3 Seconds Peripheral Pulses: 1+ Femoral (L) Extremity: Non Tender, No Calf Tenderness, No Pedal Edema Neurologic/Psychiatric: Alert Skin: Warm/Dry Results Lab Laboratory Tests 03/16/22 12:57 03/17/22 05:15 03/18/22 03:48 Assessment/Plan Assessment/Plan 1 CARMEN DENISE MD Mar 18, 2022 10:34
[2022-03-18] MEDS ORDERED: OMEP40CA6 PO (11:43)
[2022-03-18] MEDS: ENOXAPARIN 40 MG/0.4 ML (LOVENOX) SYR SC SCH (12:55)
[2022-03-18] MEDS: AZITHROMYCIN INJECTION 500 MG in NS (IVPB) 250 ML IV SCH (16:22)
--- NOTE | 2022-03-18 17:52 | Progress Note ---
Subjective Date Seen by a Provider: Mar 18, 2022 Time Seen by a Provider: 08:35 Subjective/Events-last exam Fwup septic shock, pneumonia, recurrent UTIs with chronic indwelling winchester catheter, seizure disorder, devevelopmental delays with behavior disorder. Sitting up in bed asking to go home. Oxygen saturation high 80s on RA. Focused Exam Lactate Level 03/16/22 12:57: Lactic Acid Level 0.86 Time of Focused Exam: 14:00 Objective Exam Vital Signs Date Time Temp Pulse Resp B/P (MAP) Pulse Ox O2 Delivery O2 Flow Rate FiO2 03/18/22 16:03 Room Air 03/18/22 14:00 79 13 175/108 (130) 92 Room Air 03/18/22 13:26 81 03/18/22 13:00 86 23 158/114 (129) 91 Room Air 03/18/22 12:37 87 146/106 03/18/22 12:00 37.3 03/18/22 12:00 93 Room Air 03/18/22 12:00 77 17 164/99 (120) 91 Room Air 03/18/22 11:00 84 17 172/110 (130) 92 Room Air 03/18/22 10:00 94 26 183/102 (129) 91 Room Air 03/18/22 09:00 87 22 146/106 (119) 91 Room Air 03/18/22 08:00 90 Room Air 03/18/22 08:00 82 16 157/95 (115) 90 Room Air 03/18/22 07:50 37.0 03/18/22 07:35 92 Room Air 03/18/22 07:01 85 03/18/22 07:00 87 15 157/93 (114) 89 Room Air 03/18/22 06:00 80 21 148/91 (110) 90 Room Air 03/18/22 05:00 85 26 163/92 (115) Room Air 03/18/22 04:00 93 Room Air 03/18/22 04:00 37.1 03/18/22 04:00 81 15 146/83 (104) 91 Room Air 03/18/22 03:00 84 19 132/86 (101) 89 Room Air 03/18/22 02:00 85 22 136/81 (99) 88 Room Air 03/18/22 01:00 86 03/18/22 01:00 86 21 127/71 (89) Room Air 03/18/22 00:00 90 11 127/74 (91) Room Air 03/17/22 23:59 38.0 03/17/22 23:59 90 Room Air 03/17/22 23:00 94 19 124/72 (89) 89 Room Air 03/17/22 22:00 98 27 124/77 (93) 95 Room Air 03/17/22 21:56 96 Room Air 03/17/22 21:00 98 26 122/73 (89) 92 Room Air 03/17/22 20:51 38.0 03/17/22 20:21 38.2 03/17/22 20:00 92 Room Air 03/17/22 20:00 101 26 121/68 (85) 91 Room Air 03/17/22 19:50 38.2 03/17/22 19:00 102 03/17/22 19:00 102 20 127/65 (85) 91 Room Air 03/17/22 18:00 100 22 142/87 (105) 92 Room Air I & O 03/18/22 07:00 Intake Total 4805 ml Output Total 2900 ml Balance 1905 ml Capillary Refill : Less Than 3 Seconds General Appearance: Mild Distress Neck: Supple Respiratory: Decreased Breath Sounds (can't follow command to take deep breaths) Cardiovascular: Regular Rate, Rhythm Gastrointestinal: non tender, soft, distended Extremity: Non Tender, No Calf Tenderness, No Pedal Edema Neurologic/Psychiatric: Alert Skin: Warm/Dry Results Lab Laboratory Tests 03/17/22 20:53: Glucometer 113H 03/17/22 23:28: Glucometer 101 03/18/22 03:48: White Blood Count 5.7, Red Blood Count 2.56L, Hemoglobin 8.2L, Hematocrit 25L, Mean Corpuscular Volume 99, Mean Corpuscular Hemoglobin 32, Mean Corpuscular Hemoglobin Concent 32, Red Cell Distribution Width 15.5H, Platelet Count 106L, Mean Platelet Volume 10.2, Immature Granulocyte % (Auto) 1, Neutrophils (%) (Auto) 66, Lymphocytes (%) (Auto) 24, Monocytes (%) (Auto) 8, Eosinophils (%) (Auto) 2, Basophils (%) (Auto) 1, Neutrophils # (Auto) 3.8, Lymphocytes # (Auto) 1.4, Monocytes # (Auto) 0.4, Eosinophils # (Auto) 0.1, Basophils # (Auto) 0.0, Immature Granulocyte # (Auto) 0.1, Percent Immature Platelet Fraction 3.1, Sodium Level 143, Potassium Level 4.3, Chloride Level 115H, Carbon Dioxide Level 18L, Anion Gap 10, Blood Urea Nitrogen 18, Creatinine 1.09, Estimat Glomerular Filtration Rate 78, BUN/Creatinine Ratio 17, Glucose Level 74, Calcium Level 8.5, Phosphorus Level 3.5, Magnesium Level 1.8 03/18/22 10:50: Glucometer 171H Microbiology 03/16/22 Urine Culture - Preliminary, Resulted Klebsiella oxytoca Enterobacter cloacae complex Susceptibility To Follow 03/16/22 MRSA Screen - Final, Complete MRSA not isolated 03/16/22 Blood Culture - Preliminary, Resulted Enterococcus faecalis Escherichia coli Susceptibility To Follow Staphylococcus caprae No Susceptibility Performed Assessment/Plan Assessment/Plan Assess & Plan/Chief Complaint 1. Septic Shock--improved, off pressors and BP stable 2. Pneumonia/Recurrent UTIs with chronic indwelling winchester catheter--on ro cephin/zithromax, preliminary cultures growing out Klebsiella oxytoca and Enterobacter cloacae in urine and Enterococcus facaelis, E coli and Staph caprae in blood 3. Seizure Disorder--back on keppra/lamictal 4. Hypoxia--patient became combative when nursing attempted oxygen via NC 5. Developmental Delays with Behavior Disorder--resume abilify 6. Will move to medical floor if oxygen sat stabilizes Clinical Quality Measures Admission Status Admission Dx 1. Septic Shock--admitted to ICU on norephinephrine drip and IVFs--BP improved and is currently off norephinephrine 2. Left Sided Pneumonia--on rocephin/zithromax 3. History of recurrent UTIs with chronic indwelling winchester catheter--above antibiotics until urine culture obtained 4. Seizure Disorder--restart Keppra and Lamictal 5. Developmental Delays/Behavior Disorder--resume home meds 6. Aspiration Risk--patient had swallow study done back in January and will be started on a Mixed Moist 5 diet with moderately thickened liquids SETH CANALES DO Mar 18, 2022 17:52
[2022-03-18] MEDS ORDERED: MEROPENEM 1,000 MG in NS (IVPB) 100 ML IV SCH (18:00)
[2022-03-18] MEDS: MEROPENEM 500 MG/NS 100 ML IVPB IV SCH ×4 (18:54→23:40)
[2022-03-18 19:50] VITALS: BP 155/80
[2022-03-18] MEDS ORDERED: polyethylene glycoL POWDER 17 GM (MIRALAX) PACK PO SCH (21:00)
[2022-03-18 23:12] VITALS: BP 152/74
[2022-03-19 03:41] VITALS: BP 155/87
[2022-03-19] MEDS: inSUlin ASPART (NovoLOG) 1 UNIT/0.01 ML (CHARGE PER UNIT) SC SCH ×4 (05:39→23:26)
[2022-03-19] MEDS: MEROPENEM 500 MG/NS 100 ML IVPB IV SCH ×8 (05:39→23:26)
[2022-03-19 05:50] LABS: HEMOGLOBIN 9.6 g/dL (13.3-17.7); MEAN CORPUSCULAR VOLUME 97 fL (80-99)
[2022-03-19 05:52] LABS: BASOPHILS % (AUTO) 0 % (0-10); EOSINOPHILS # (AUTO) 0.1 10^3/uL (0.0-0.3); EOSINOPHILS % (AUTO) 1 % (0-10); HEMATOCRIT 29 % (40-54); LYMPHOCYTES # (AUTO) 1.2 10^3/uL (1.0-4.0); LYMPHOCYTES % (AUTO) 16 % (12-44); MEAN CORPUSCULAR HEMOGLOBIN 32 pg (25-34); MEAN CORPUSCULAR HGB CONC 33 g/dL (32-36); MONOCYTES # (AUTO) 0.5 10^3/uL (0.0-1.0); MONOCYTES % (AUTO) 7 % (0-12); NEUTROPHILS # (AUTO) 5.5 10^3/uL (1.8-7.8); NEUTROPHILS % (AUTO) 75 % (42-75); PLATELET COUNT 144 10^3/uL (130-400); WHITE BLOOD COUNT 7.3 10^3/uL (4.3-11.0)
[2022-03-19 06:07] LABS: POTASSIUM 4.1 MMOL/L (3.6-5.0)
[2022-03-19] MEDS: POTASSIUM CL 10MEQ/50ML IVPB 50 ML IV SCH (06:08)
[2022-03-19] MEDS: KCL 20 MEQ TAB (K-DUR) PO SCH (06:09)
[2022-03-19 06:12] LABS: PHOSPHORUS 3.9 MG/DL (2.3-4.7)
[2022-03-19 06:14] LABS: MAGNESIUM 1.7 MG/DL (1.6-2.4)
[2022-03-19] MEDS: MAGNESIUM 1 GM/100 ML IVPB 100 ML IV SCH ×3 (06:20→08:51)
[2022-03-19 07:33] VITALS: BP 170/92
[2022-03-19] MEDS: PANTOPRAZOLE 40 MG (PROTONIX) VIAL IVP SCH (08:46)
[2022-03-19] MEDS: SENNA W/DOCUSATE (SENOKOT S) TABLET PO SCH ×2 (08:46→20:55)
[2022-03-19] MEDS: RT-ALBUTEROL SULF 2.5 MG/3 ML PRE-MIX VIAL INH SCH ×2 (09:58→22:25)
[2022-03-19] MEDS: NS IV 1000 ML 1,000 ML IV SCH (11:19)
[2022-03-19 11:24] VITALS: BP 170/91
[2022-03-19] MEDS: ENOXAPARIN 40 MG/0.4 ML (LOVENOX) SYR SC SCH (14:44)
[2022-03-19 16:00] VITALS: BP 172/95
--- NOTE | 2022-03-19 17:07 | Progress Note ---
Subjective Date Seen by a Provider: Mar 19, 2022 Time Seen by a Provider: 12:45 Subjective/Events-last exam Fwup septic shock, pneumonia, recurrent UTIs with chronic indwelling winchester catheter, seizure disorder, devevelopmental delays with behavior disorder. Patient keeps asking to go home. Caregiver states he is not sleeping well at night so tired today. Focused Exam Time of Focused Exam: 14:00 Objective Exam Vital Signs Date Time Temp Pulse Resp B/P (MAP) Pulse Ox O2 Delivery O2 Flow Rate FiO2 03/19/22 16:00 36.7 96 18 172/95 (120) 90 Room Air 03/19/22 11:24 36.7 94 18 170/91 (117) 91 Room Air 03/19/22 09:58 99 90 21 03/19/22 09:58 90 Room Air 03/19/22 08:00 Room Air 03/19/22 07:33 36.6 87 18 170/92 (118) 92 Room Air 03/19/22 03:41 36.4 76 16 155/87 (109) 92 Room Air 03/18/22 23:12 36.8 89 16 152/74 (100) 92 Room Air 03/18/22 21:06 94 Room Air 03/18/22 20:20 Room Air 03/18/22 19:50 36.3 77 16 155/80 (105) 91 Room Air I & O 03/19/22 07:00 Intake Total 2080 ml Output Total 2250 ml Balance -170 ml Capillary Refill : Less Than 3 Seconds General Appearance: No Apparent Distress Respiratory: Lungs Clear, Decreased Breath Sounds Cardiovascular: Regular Rate, Rhythm Gastrointestinal: normal bowel sounds, non tender, distended Extremity: Non Tender, No Calf Tenderness, No Pedal Edema Neurologic/Psychiatric: Alert Results Lab Laboratory Tests 03/18/22 18:20: Glucometer 128H 03/18/22 23:41: Glucometer 100 03/19/22 05:34: Glucometer 93 03/19/22 05:40: White Blood Count 7.3, Red Blood Count 3.03L, Hemoglobin 9.6L, Hematocrit 29L, Mean Corpuscular Volume 97, Mean Corpuscular Hemoglobin 32, Mean Corpuscular Hemoglobin Concent 33, Red Cell Distribution Width 15.3H, Platelet Count 144, Mean Platelet Volume 10.0, Immature Granulocyte % (Auto) 2, Neutrophils (%) (Auto) 75, Lymphocytes (%) (Auto) 16, Monocytes (%) (Auto) 7, Eosinophils (%) (Auto) 1, Basophils (%) (Auto) 0, Neutrophils # (Auto) 5.5, Lymphocytes # (Auto) 1.2, Monocytes # (Auto) 0.5, Eosinophils # (Auto) 0.1, Basophils # (Auto) 0.0, Immature Granulocyte # (Auto) 0.1, Percent Immature Platelet Fraction 3.0, Sodium Level 142, Potassium Level 4.1, Chloride Level 111H, Carbon Dioxide Level 19L, Anion Gap 12, Blood Urea Nitrogen 18, Creatinine 1.00, Estimat Glomerular Filtration Rate 87, BUN/Creatinine Ratio 18, Glucose Level 92, Calcium Level 9.0, Phosphorus Level 3.9, Magnesium Level 1.7 03/19/22 11:22: Glucometer 139H Microbiology 03/16/22 Urine Culture - Final, Complete Klebsiella oxytoca Enterobacter cloacae complex 03/16/22 MRSA Screen - Final, Complete MRSA not isolated 03/16/22 Blood Culture - Preliminary, Resulted Enterococcus faecalis Escherichia coli Staphylococcus caprae Assessment/Plan Assessment/Plan Assess & Plan/Chief Complaint 1. Septic Shock--improved, off pressors and BP stable 2. Pneumonia/Recurrent UTIs with chronic indwelling winchester catheter--on meropenem, culture growing out Klebsiella oxytoca and Enterobacter cloacae in urine and Enterococcus facaelis, Resitant E coli and Staph caprae in blood, explained to event set up specialist that he needs at least 5 full days of IV meropenem due to resistant E coli in blood culture so that will be through Friday 3. Seizure Disorder--back on keppra/lamictal 4. Hypoxia--improved 5. Developmental Delays with Behavior Disorder--abilify restarted 6. Insomnia--will give trazadone to see if helps 7. Constipation--chronic, some mild distention this morning so will increase senokot-S and miralax to BID dosing as well Clinical Quality Measures Admission Status Admission Dx 1. Septic Shock--admitted to ICU on norephinephrine drip and IVFs--BP improved and is currently off norephinephrine 2. Left Sided Pneumonia--on rocephin/zithromax 3. History of recurrent UTIs with chronic indwelling winchester catheter--above antibiotics until urine culture obtained 4. Seizure Disorder--restart Keppra and Lamictal 5. Developmental Delays/Behavior Disorder--resume home meds 6. Aspiration Risk--patient had swallow study done back in January and will be started on a Mixed Moist 5 diet with moderately thickened liquids SETH CANALES DO Mar 19, 2022 17:07
[2022-03-19] MEDS: AZITHROMYCIN INJECTION 500 MG in NS (IVPB) 250 ML IV SCH (17:15)
[2022-03-19 19:28] VITALS: BP 171/92
[2022-03-19] MEDS: traZODone 50 MG (DESYREL) TAB PO SCH (20:55)
[2022-03-19] MEDS: polyethylene glycoL POWDER 17 GM (MIRALAX) PACK PO SCH (20:55)
[2022-03-20 00:08] VITALS: BP 144/82
[2022-03-20 03:31] VITALS: BP 143/78
[2022-03-20] MEDS: inSUlin ASPART (NovoLOG) 1 UNIT/0.01 ML (CHARGE PER UNIT) SC SCH ×3 (05:30→18:18)
[2022-03-20] MEDS: MEROPENEM 500 MG/NS 100 ML IVPB IV SCH ×8 (05:30→23:55)
[2022-03-20 05:36] LABS: BASOPHILS % (AUTO) 0 % (0-10); EOSINOPHILS # (AUTO) 0.1 10^3/uL (0.0-0.3); EOSINOPHILS % (AUTO) 2 % (0-10); HEMATOCRIT 29 % (40-54); LYMPHOCYTES # (AUTO) 1.3 10^3/uL (1.0-4.0); LYMPHOCYTES % (AUTO) 19 % (12-44); MEAN CORPUSCULAR HEMOGLOBIN 33 pg (25-34); MEAN CORPUSCULAR HGB CONC 34 g/dL (32-36); MEAN CORPUSCULAR VOLUME 95 fL (80-99); MEAN PLATELET VOLUME 9.6 fL (9.0-12.2); MONOCYTES # (AUTO) 0.6 10^3/uL (0.0-1.0); MONOCYTES % (AUTO) 9 % (0-12); NEUTROPHILS # (AUTO) 4.8 10^3/uL (1.8-7.8); NEUTROPHILS % (AUTO) 68 % (42-75); PLATELET COUNT 150 10^3/uL (130-400)
[2022-03-20 05:50] LABS: POTASSIUM 3.7 MMOL/L (3.6-5.0)
[2022-03-20 05:51] LABS: CALCIUM 8.8 MG/DL (8.5-10.1)
[2022-03-20] MEDS: KCL 20 MEQ TAB (K-DUR) PO SCH (05:52)
[2022-03-20] MEDS: POTASSIUM CL 10MEQ/50ML IVPB 50 ML IV SCH (05:52)
[2022-03-20 05:55] LABS: PHOSPHORUS 3.5 MG/DL (2.3-4.7)
[2022-03-20 05:56] LABS: CREATININE SERUM 0.86 MG/DL (0.60-1.30)
[2022-03-20 05:59] LABS: MAGNESIUM 1.7 MG/DL (1.6-2.4)
[2022-03-20] MEDS: MAGNESIUM 1 GM/100 ML IVPB 100 ML IV SCH ×3 (06:02→08:53)
[2022-03-20] MEDS: RT-ALBUTEROL SULF 2.5 MG/3 ML PRE-MIX VIAL INH SCH ×2 (07:04→21:53)
[2022-03-20 07:37] VITALS: BP 148/78
--- NOTE | 2022-03-20 08:12 | Diagnostic Imaging Report ---
EXAMINATION: Chest 2 view HISTORY: Pneumonia COMPARISON: 03/16/2022 FINDINGS: There has been progression of the moderate bilateral airspace opacities. There are small bilateral pleural effusions. No pneumothorax. Heart size is normal. IMPRESSION: 1. Progression of moderate bilateral airspace opacities. Dictated by: Dictated on workstation # [id number]
[2022-03-20] MEDS: SENNA W/DOCUSATE (SENOKOT S) TABLET PO SCH ×2 (08:53→21:18)
[2022-03-20] MEDS: PANTOPRAZOLE 40 MG (PROTONIX) VIAL IVP SCH (08:53)
[2022-03-20] MEDS: polyethylene glycoL POWDER 17 GM (MIRALAX) PACK PO SCH ×2 (08:53→21:18)
[2022-03-20] MEDS: busPIRone 5 MG (BUSPAR) TAB PO SCH ×2 (10:41→21:17)
[2022-03-20 11:29] VITALS: BP 140/75
[2022-03-20] MEDS: ENOXAPARIN 40 MG/0.4 ML (LOVENOX) SYR SC SCH (13:31)
[2022-03-20] MEDS: NS IV 1000 ML 1,000 ML IV SCH ×2 (15:04→21:24)
[2022-03-20 15:35] VITALS: BP 135/81
[2022-03-20] MEDS: AZITHROMYCIN INJECTION 500 MG in NS (IVPB) 250 ML IV SCH (17:05)
[2022-03-20 19:29] VITALS: BP 156/89
[2022-03-20] MEDS: traZODone 50 MG (DESYREL) TAB PO SCH (21:18)
--- NOTE | 2022-03-20 23:12 | Progress Note ---
Subjective Subjective Date Seen by Provider: Mar 20, 2022 Time Seen by Provider: 09:00 Pt states that he wants to go home. He apparently perpetrated self abuse and was hitting at himself this morning/last night. Staff reprots that they feel as if he has been choking on his medications frequently at the longterm. Review of Systems General: No Chills; Fatigue, Malaise Pulmonary: Dyspnea, Cough Cardiovascular: Orthopnea; No: Chest Pain Gastrointestinal: Nausea, Abdominal Pain Genitourinary: No Dysuria Neurological: Weakness; No: Confusion All Other Systems Reviewed All Other Systems Reviewed: Yes Objective Exam Vital Signs Vital Signs Date Time Temp Pulse Resp B/P (MAP) Pulse Ox O2 Delivery O2 Flow Rate FiO2 03/20/22 21:54 94 Room Air 03/20/22 19:29 37.4 93 19 156/89 (111) 92 Room Air 03/20/22 15:35 36.4 88 16 135/81 (99) 92 Room Air 03/20/22 11:29 36.6 89 18 140/75 (96) 92 Room Air 03/20/22 08:00 Room Air 03/20/22 07:37 36.6 85 20 148/78 (101) 90 Room Air 03/20/22 07:05 92 Room Air 03/20/22 03:31 36.9 89 18 143/78 (99) 92 Room Air 03/20/22 00:08 36.8 88 18 144/82 (102) 92 Room Air I & O 03/20/22 07:00 Intake Total 1295 ml Output Total 2125 ml Balance -830 ml General Appearance: No Apparent Distress Eyes: Bilateral Eye Normal Inspection, Bilateral Eye PERRL HEENT: Normal ENT Inspection Neck: Supple Respiratory: Lungs Clear, Decreased Breath Sounds Cardiovascular: Regular Rate, Rhythm Gastrointestinal: Normal Bowel Sounds, Non Tender, Distended Rectal: Deferred Back: No CVA Tenderness Extremity: Non Tender, No Calf Tenderness, No Pedal Edema Neurologic/Psychiatric: Alert Skin: Warm/Dry Results Lab Laboratory Tests 03/19/22 23:24: Glucometer 147H 03/20/22 05:27: Glucometer 105 03/20/22 05:30: White Blood Count 7.0, Red Blood Count 3.07L, Hemoglobin 10.0L, Hematocrit 29L, Mean Corpuscular Volume 95, Mean Corpuscular Hemoglobin 33, Mean Corpuscular Hemoglobin Concent 34, Red Cell Distribution Width 15.1H, Platelet Count 150, Mean Platelet Volume 9.6, Immature Granulocyte % (Auto) 2, Neutrophils (%) (Auto) 68, Lymphocytes (%) (Auto) 19, Monocytes (%) (Auto) 9, Eosinophils (%) (Auto) 2, Basophils (%) (Auto) 0, Neutrophils # (Auto) 4.8, Lymphocytes # (Auto) 1.3, Monocytes # (Auto) 0.6, Eosinophils # (Auto) 0.1, Basophils # (Auto) 0.0, Immature Granulocyte # (Auto) 0.2H, Sodium Level 140, Potassium Level 3.7, Chloride Level 108H, Carbon Dioxide Level 19L, Anion Gap 13, Blood Urea Nitrogen 17, Creatinine 0.86, Estimat Glomerular Filtration Rate 100, BUN/Creatinine Ratio 20, Glucose Level 105, Calcium Level 8.8, Phosphorus Level 3.5, Magnesium Level 1.7 03/20/22 11:15: Glucometer 141H Microbiology 03/16/22 Urine Culture - Final, Complete Klebsiella oxytoca Enterobacter cloacae complex 03/16/22 MRSA Screen - Final, Complete MRSA not isolated 03/16/22 Blood Culture - Final, Complete Enterococcus faecalis Escherichia coli Staphylococcus caprae Assessment/Plan Assessment/Plan Assessment and Plan Septic Shock urinary tract infection - recurrent, hx of multiorganism infection with extensive resistance pattern Pneumonia Indwelling winchester Seizure disorder Dysphagia Developmental disorder/delay. Pt was taken off of pressors, out of ICU to 4th floor, continue with supportive care and monitoring. Recurrent UTI - multidrug resistant pt to be on current antibiotic regimen of Meropenem for another 3 days. Seizure d/o - having dysphagia - change from keppra pills to liquid Keppra. Developmental delay, bipolar mood d/o TOBY BURGOS MD Mar 20, 2022 23:12
[2022-03-21 00:01] VITALS: BP 121/76
[2022-03-21] MEDS: inSUlin ASPART (NovoLOG) 1 UNIT/0.01 ML (CHARGE PER UNIT) SC SCH ×4 (00:40→18:07)
[2022-03-21 03:23] VITALS: BP 127/76
[2022-03-21 03:36] LABS: BASOPHILS % (AUTO) 0 % (0-10); EOSINOPHILS # (AUTO) 0.5 10^3/uL (0.0-0.3); EOSINOPHILS % (AUTO) 10 % (0-10); HEMATOCRIT 28 % (40-54); HEMOGLOBIN 9.5 g/dL (13.3-17.7); LYMPHOCYTES # (AUTO) 1.3 10^3/uL (1.0-4.0); LYMPHOCYTES % (AUTO) 27 % (12-44); MEAN CORPUSCULAR HEMOGLOBIN 33 pg (25-34); MEAN CORPUSCULAR HGB CONC 34 g/dL (32-36); MEAN CORPUSCULAR VOLUME 96 fL (80-99); MEAN PLATELET VOLUME 9.8 fL (9.0-12.2); MONOCYTES # (AUTO) 0.5 10^3/uL (0.0-1.0); MONOCYTES % (AUTO) 11 % (0-12); NEUTROPHILS # (AUTO) 2.3 10^3/uL (1.8-7.8); NEUTROPHILS % (AUTO) 50 % (42-75); PLATELET COUNT 161 10^3/uL (130-400); WHITE BLOOD COUNT 4.6 10^3/uL (4.3-11.0)
[2022-03-21 03:39] LABS: CALCIUM 8.5 MG/DL (8.5-10.1)
[2022-03-21 03:43] LABS: CREATININE SERUM 0.8 MG/DL (0.60-1.30); PHOSPHORUS 4.1 MG/DL (2.3-4.7)
[2022-03-21 03:46] LABS: MAGNESIUM 1.8 MG/DL (1.6-2.4)
[2022-03-21] MEDS: KCL 20 MEQ TAB (K-DUR) PO SCH (05:19)
[2022-03-21] MEDS: MAGNESIUM 1 GM/100 ML IVPB 100 ML IV SCH (05:19)
[2022-03-21] MEDS: POTASSIUM CL 10MEQ/50ML IVPB 50 ML IV SCH (05:19)
[2022-03-21] MEDS: MEROPENEM 500 MG/NS 100 ML IVPB IV SCH ×8 (05:25→23:11)
[2022-03-21] MEDS: RT-ALBUTEROL SULF 2.5 MG/3 ML PRE-MIX VIAL INH SCH (07:27)
[2022-03-21 08:00] VITALS: BP 133/84
[2022-03-21] MEDS: polyethylene glycoL POWDER 17 GM (MIRALAX) PACK PO SCH ×2 (08:36→20:03)
[2022-03-21] MEDS: busPIRone 5 MG (BUSPAR) TAB PO SCH ×2 (08:37→20:03)
[2022-03-21] MEDS: SENNA W/DOCUSATE (SENOKOT S) TABLET PO SCH ×2 (08:37→20:03)
[2022-03-21] MEDS: PANTOPRAZOLE 40 MG (PROTONIX) TAB PO SCH (08:37)
--- NOTE | 2022-03-21 08:54 | Progress Note ---
Subjective Subjective Date Seen by Provider: Mar 21, 2022 Time Seen by Provider: 08:50 Pt's caregiver state that he is much better today compared to yesterday after starting on the buspirone. She notes that he still has not had a bowel movement, he is more distended, belched a lot yesterday on the commode, she also notes that he is much more himself, talking more, seems happier Review of Systems General: No Chills; Appetite (improved) Pulmonary: Dyspnea, Cough Cardiovascular: Orthopnea; No: Chest Pain Gastrointestinal: Nausea, Abdominal Pain, Constipation Genitourinary: No Dysuria Neurological: Weakness, Confusion (chronic) All Other Systems Reviewed All Other Systems Reviewed: Yes Objective Exam Vital Signs Vital Signs Date Time Temp Pulse Resp B/P (MAP) Pulse Ox O2 Delivery O2 Flow Rate FiO2 03/21/22 07:32 90 Room Air 03/21/22 03:23 36.4 82 18 127/76 (93) 91 Room Air 03/21/22 00:01 36.3 81 18 121/76 (91) 92 Room Air 03/20/22 21:54 94 Room Air 03/20/22 21:20 Room Air 03/20/22 19:29 37.4 93 19 156/89 (111) 92 Room Air 03/20/22 15:35 36.4 88 16 135/81 (99) 92 Room Air 03/20/22 11:29 36.6 89 18 140/75 (96) 92 Room Air I & O 03/21/22 06:59 Intake Total 735 ml Output Total 1780 ml Balance -1045 ml General Appearance: No Apparent Distress Eyes: Bilateral Eye Normal Inspection, Bilateral Eye PERRL HEENT: Normal ENT Inspection Neck: Supple Respiratory: Lungs Clear, Decreased Breath Sounds Cardiovascular: Regular Rate, Rhythm Gastrointestinal: Normal Bowel Sounds, Non Tender, Distended (tympanitic) Rectal: Deferred Back: No CVA Tenderness Extremity: Non Tender, No Calf Tenderness, No Pedal Edema Neurologic/Psychiatric: Alert Skin: Warm/Dry Results Lab Laboratory Tests 03/20/22 11:15: Glucometer 141H 03/21/22 00:01: Glucometer 119H 03/21/22 03:22: White Blood Count 4.6, Red Blood Count 2.92L, Hemoglobin 9.5L, Hematocrit 28L, Mean Corpuscular Volume 96, Mean Corpuscular Hemoglobin 33, Mean Corpuscular Hemoglobin Concent 34, Red Cell Distribution Width 15.1H, Platelet Count 161, Mean Platelet Volume 9.8, Immature Granulocyte % (Auto) 2, Neutrophils (%) (Auto) 50, Lymphocytes (%) (Auto) 27, Monocytes (%) (Auto) 11, Eosinophils (%) (Auto) 10, Basophils (%) (Auto) 0, Neutrophils # (Auto) 2.3, Lymphocytes # (Auto) 1.3, Monocytes # (Auto) 0.5, Eosinophils # (Auto) 0.5H, Basophils # (Auto) 0.0, Immature Granulocyte # (Auto) 0.1, Sodium Level 141, Potassium Level 4.0, Chloride Level 109H, Carbon Dioxide Level 21, Anion Gap 11, Blood Urea Nitrogen 16, Creatinine 0.80, Estimat Glomerular Filtration Rate 102, BUN/Creatinine Ratio 20, Glucose Level 91, Calcium Level 8.5, Phosphorus Level 4.1, Magnesium Level 1.8 Microbiology 03/16/22 Urine Culture - Final, Complete Klebsiella oxytoca Enterobacter cloacae complex 03/16/22 MRSA Screen - Final, Complete MRSA not isolated 03/16/22 Blood Culture - Final, Complete Enterococcus faecalis Escherichia coli Staphylococcus caprae Assessment/Plan Assessment/Plan Assessment and Plan Septic Shock urinary tract infection - recurrent, hx of multiorganism infection with extensive resistance pattern Pneumonia Indwelling winchester Seizure disorder Dysphagia Developmental disorder/delay. Pt was taken off of pressors, out of ICU to 4th floor, continue with supportive care and monitoring. Recurrent UTI - multidrug resistant pt to be on current antibiotic regimen of Meropenem for another 2 days. - discussed with pharmacist - may be able to get Steve out on IV ertapenem for a few more days as outpatient for completion of treatment Seizure d/o - having dysphagia - changed from keppra pills to liquid Keppra. mood changes - added buspirone with improved symptoms. Constipation with bloating - added simethicone, dulcolax suppository and will monitor output Developmental delay, bipolar mood d/o TOBY BURGOS MD Mar 21, 2022 08:54
[2022-03-21] MEDS ORDERED: ERTA1VIA4 IV (09:54)
[2022-03-21] MEDS ORDERED: BISACODYL 10 MG SUPP (DULCOLAX) PR NR (10:00)
[2022-03-21 12:16] VITALS: BP 141/88
[2022-03-21] MEDS: SIMETHICONE 80 MG (MYLICON) CHEW PO SCH ×4 (12:19→20:03)
[2022-03-21] MEDS: ENOXAPARIN 40 MG/0.4 ML (LOVENOX) SYR SC SCH (13:16)
[2022-03-21 15:22] VITALS: BP 119/68
[2022-03-21 19:23] VITALS: BP 130/63
[2022-03-21] MEDS: traZODone 50 MG (DESYREL) TAB PO SCH (20:03)
[2022-03-22 00:23] VITALS: BP 127/75
[2022-03-22] MEDS: inSUlin ASPART (NovoLOG) 1 UNIT/0.01 ML (CHARGE PER UNIT) SC SCH ×4 (00:43→21:15)
[2022-03-22 03:28] LABS: BASOPHILS % (AUTO) 1 % (0-10); EOSINOPHILS # (AUTO) 0.6 10^3/uL (0.0-0.3); EOSINOPHILS % (AUTO) 10 % (0-10); HEMATOCRIT 30 % (40-54); LYMPHOCYTES # (AUTO) 1.7 10^3/uL (1.0-4.0); LYMPHOCYTES % (AUTO) 29 % (12-44); MEAN CORPUSCULAR HEMOGLOBIN 33 pg (25-34); MEAN CORPUSCULAR HGB CONC 34 g/dL (32-36); MEAN CORPUSCULAR VOLUME 96 fL (80-99); MEAN PLATELET VOLUME 9.6 fL (9.0-12.2); MONOCYTES # (AUTO) 0.7 10^3/uL (0.0-1.0); MONOCYTES % (AUTO) 11 % (0-12); NEUTROPHILS # (AUTO) 2.8 10^3/uL (1.8-7.8); NEUTROPHILS % (AUTO) 48 % (42-75); PLATELET COUNT 215 10^3/uL (130-400); WHITE BLOOD COUNT 5.8 10^3/uL (4.3-11.0)
[2022-03-22 03:41] LABS: CALCIUM 8.6 MG/DL (8.5-10.1)
[2022-03-22 03:45] LABS: PHOSPHORUS 4.2 MG/DL (2.3-4.7)
[2022-03-22 03:46] LABS: CREATININE SERUM 0.83 MG/DL (0.60-1.30)
[2022-03-22 03:48] LABS: MAGNESIUM 1.7 MG/DL (1.6-2.4)
[2022-03-22] MEDS: POTASSIUM CL 10MEQ/50ML IVPB 50 ML IV SCH (03:57)
[2022-03-22] MEDS: MAGNESIUM 1 GM/100 ML IVPB 100 ML IV SCH ×3 (04:15→06:29)
[2022-03-22] MEDS: KCL 20 MEQ TAB (K-DUR) PO SCH (04:27)
[2022-03-22] MEDS: MEROPENEM 500 MG/NS 100 ML IVPB IV SCH ×8 (05:19→23:39)
--- NOTE | 2022-03-22 07:19 | Progress Note ---
Subjective Subjective Date Seen by Provider: Mar 22, 2022 Time Seen by Provider: 07:17 Patient is being followed up for Septic shock, UTI, Pneumonia, Seizure Disorder, and Developmental Delay. Today patient is awake. He is a bit irritated. Nurse reports he did not sleep at all last night. He was talking to himself all night. Review of Systems General: No Chills; Appetite (improved) Pulmonary: Dyspnea, Cough Cardiovascular: Orthopnea; No: Chest Pain Gastrointestinal: Nausea, Abdominal Pain, Constipation Genitourinary: No Dysuria Neurological: Weakness, Confusion (chronic) All Other Systems Reviewed All Other Systems Reviewed: Yes Objective Exam Vital Signs Vital Signs Date Time Temp Pulse Resp B/P (MAP) Pulse Ox O2 Delivery O2 Flow Rate FiO2 03/22/22 00:23 36.6 81 20 127/75 (92) 92 Room Air 03/21/22 20:05 Room Air 03/21/22 19:23 36.6 82 20 130/63 (85) 93 Room Air 03/21/22 18:33 99 90 21 03/21/22 15:22 36.0 80 20 119/68 (85) 92 Room Air 03/21/22 12:16 36.3 77 19 141/88 (105) 94 Room Air 03/21/22 08:00 36.0 77 19 133/84 (100) 93 Room Air 03/21/22 08:00 Room Air 03/21/22 07:32 90 Room Air I & O 03/22/22 07:00 Intake Total 1672 ml Output Total 2100 ml Balance -428 ml General Appearance: No Apparent Distress Eyes: Bilateral Eye Normal Inspection, Bilateral Eye PERRL HEENT: Normal ENT Inspection Neck: Supple Respiratory: Lungs Clear, Decreased Breath Sounds Cardiovascular: Regular Rate, Rhythm Gastrointestinal: Normal Bowel Sounds, Non Tender, Distended (tympanitic) Rectal: Deferred Back: No CVA Tenderness Extremity: Non Tender, No Calf Tenderness, No Pedal Edema Neurologic/Psychiatric: Alert Skin: Warm/Dry Results Lab Laboratory Tests 03/21/22 11:34: Glucometer 104 03/21/22 18:05: Glucometer 120H 03/22/22 00:23: Glucometer 91 03/22/22 03:15: White Blood Count 5.8, Red Blood Count 3.07L, Hemoglobin 10.0L, Hematocrit 30L, Mean Corpuscular Volume 96, Mean Corpuscular Hemoglobin 33, Mean Corpuscular Hemoglobin Concent 34, Red Cell Distribution Width 15.1H, Platelet Count 215, Mean Platelet Volume 9.6, Immature Granulocyte % (Auto) 2, Neutrophils (%) (Auto) 48, Lymphocytes (%) (Auto) 29, Monocytes (%) (Auto) 11, Eosinophils (%) (Auto) 10, Basophils (%) (Auto) 1, Neutrophils # (Auto) 2.8, Lymphocytes # (Auto) 1.7, Monocytes # (Auto) 0.7, Eosinophils # (Auto) 0.6H, Basophils # (Auto) 0.0, Immature Granulocyte # (Auto) 0.1, Sodium Level 137, Potassium Level 4.0, Chloride Level 106, Carbon Dioxide Level 21, Anion Gap 10, Blood Urea Nitrogen 16, Creatinine 0.83, Estimat Glomerular Filtration Rate 101, BUN/Creatinine Ratio 19, Glucose Level 95, Calcium Level 8.6, Phosphorus Level 4.2, Magnesium Level 1.7 Microbiology 03/16/22 Urine Culture - Final, Complete Klebsiella oxytoca Enterobacter cloacae complex 03/16/22 MRSA Screen - Final, Complete MRSA not isolated 03/16/22 Blood Culture - Final, Complete Enterococcus faecalis Escherichia coli Staphylococcus caprae Assessment/Plan Assessment/Plan Assessment and Plan Septic Shock urinary tract infection - recurrent, hx of multiorganism infection with extensive resistance pattern Pneumonia Indwelling winchester Seizure disorder Dysphagia Developmental disorder/delay. Pt was taken off of pressors, out of ICU to 4th floor, continue with supportive care and monitoring. Recurrent UTI - multidrug resistant pt to be on current antibiotic regimen of Meropenem for another day. - discussed with pharmacist - may be able to get Steve out on IV ertapenem for a few more days as outpatient for completion of treatment Seizure d/o - having dysphagia - changed from keppra pills to liquid Keppra. mood changes - added buspirone with improved symptoms. Constipation with bloating - added simethicone, dulcolax suppository and will monitor output Developmental delay, bipolar mood d/o Supervisory-Addendum Brief Verification & Attestation Participated in pt care: history, MDM, physical Personally performed: exam, history, MDM, supervision of care Care discussed with: Medical Student Procedures: n/a Results interpretation: Verified all documentation Septic Shock urinary tract infection - recurrent, hx of multiorganism infection with extensive resistance pattern Pneumonia Indwelling winchester Seizure disorder Dysphagia Developmental disorder/delay. Pt was taken off of pressors, out of ICU to 4th floor, continue with supportive care and monitoring. Recurrent UTI - multidrug resistant pt to be on current antibiotic regimen of M eropenem for another 2 days. - discussed with pharmacist - Pt unable to get the IV antibiotics outpatient fast enough to make any sense getting the pt out of the hospital (earliest delivery would be Friday). Seizure d/o - having dysphagia - changed from keppra pills to liquid Keppra. mood changes - added buspirone with improved symptoms. Constipation with bloating - added simethicone, dulcolax suppository and pt had excellent output per staff report. Developmental delay, bipolar mood d/o KENDALL MARTINEZ Mar 22, 2022 07:19 TOBY BURGOS MD Mar 22, 2022 17:28
[2022-03-22 08:30] VITALS: BP 148/93
[2022-03-22] MEDS: SIMETHICONE 80 MG (MYLICON) CHEW PO SCH ×4 (08:47→20:00)
[2022-03-22] MEDS: SENNA W/DOCUSATE (SENOKOT S) TABLET PO SCH ×2 (08:47→20:01)
[2022-03-22] MEDS: ACETAMINOPHEN 325 MG TABLET PO PRN (08:47)
[2022-03-22] MEDS: busPIRone 5 MG (BUSPAR) TAB PO SCH ×2 (08:47→20:01)
[2022-03-22] MEDS: PANTOPRAZOLE 40 MG (PROTONIX) TAB PO SCH (08:47)
[2022-03-22] MEDS: polyethylene glycoL POWDER 17 GM (MIRALAX) PACK PO SCH ×2 (08:48→20:02)
[2022-03-22] MEDS: NS IV 1000 ML 1,000 ML IV SCH (13:59)
[2022-03-22] MEDS: ENOXAPARIN 40 MG/0.4 ML (LOVENOX) SYR SC SCH (13:59)
[2022-03-22 15:43] VITALS: BP 122/77
[2022-03-22] MEDS ORDERED: inSUlin ASPART (NovoLOG) 1 UNIT/0.01 ML (CHARGE PER UNIT) SC SCH (16:00)
[2022-03-22] MEDS: traZODone 50 MG (DESYREL) TAB PO SCH (20:01)
[2022-03-23 00:08] VITALS: BP 131/76
[2022-03-23 04:29] VITALS: BP 127/82
[2022-03-23] MEDS: MEROPENEM 500 MG/NS 100 ML IVPB IV SCH ×8 (05:21→23:58)
[2022-03-23] MEDS: inSUlin ASPART (NovoLOG) 1 UNIT/0.01 ML (CHARGE PER UNIT) SC SCH ×4 (05:29→21:26)
[2022-03-23 06:52] LABS: CALCIUM 8.7 MG/DL (8.5-10.1); CREATININE SERUM 0.79 MG/DL (0.60-1.30); MAGNESIUM 1.9 MG/DL (1.6-2.4); PHOSPHORUS 4.2 MG/DL (2.3-4.7)
[2022-03-23] MEDS: POTASSIUM CL 10MEQ/50ML IVPB 50 ML IV SCH (06:59)
[2022-03-23] MEDS: MAGNESIUM 1 GM/100 ML IVPB 100 ML IV SCH (07:00)
[2022-03-23] MEDS: KCL 20 MEQ TAB (K-DUR) PO SCH (07:02)
[2022-03-23 07:29] VITALS: BP 94/53
[2022-03-23] MEDS: SENNA W/DOCUSATE (SENOKOT S) TABLET PO SCH ×2 (09:42→21:26)
[2022-03-23] MEDS: SIMETHICONE 80 MG (MYLICON) CHEW PO SCH ×4 (09:43→21:26)
[2022-03-23] MEDS: polyethylene glycoL POWDER 17 GM (MIRALAX) PACK PO SCH ×2 (09:43→21:26)
[2022-03-23] MEDS: PANTOPRAZOLE 40 MG (PROTONIX) TAB PO SCH (09:43)
[2022-03-23] MEDS: busPIRone 5 MG (BUSPAR) TAB PO SCH ×2 (09:43→21:26)
[2022-03-23 11:41] VITALS: BP 124/79
[2022-03-23] MEDS: ENOXAPARIN 40 MG/0.4 ML (LOVENOX) SYR SC SCH (13:30)
--- NOTE | 2022-03-23 13:53 | Progress Note - Hospitalist ---
Subjective HPI/CC On Admission Date Seen by Provider: Mar 23, 2022 Time Seen by Provider: 11:20 Subjective/Events-last exam He is laying in bed. He asks if he is going home today. He showed me his balloons. Focused Exam Time of Focused Exam: 14:00 Objective Exam Vital Signs Vital Signs Date Time Temp Pulse Resp B/P (MAP) Pulse Ox O2 Delivery O2 Flow Rate FiO2 03/23/22 11:41 36.3 77 18 124/79 (94) 92 Room Air 03/21/22 18:33 21 Capillary Refill : Less Than 3 Seconds General Appearance: No Apparent Distress, Chronically ill Respiratory: Lungs Clear, No Respiratory Distress Cardiovascular: Regular Rate, Rhythm, No Murmur Gastrointestinal: Normal Bowel Sounds, Soft Extremity: Normal Inspection, No Pedal Edema Neurologic/Psychiatric: Alert, Normal Mood/Affect Skin: Normal Color, Warm/Dry Results/Procedures Lab Laboratory Tests 03/23/22 06:05 Patient resulted labs reviewed. Imaging: Reviewed Imaging Report Assessment/Plan Assessment and Plan Assess & Plan/Chief Complaint Septic Shock, resolved Klebsiella and Enterobacter UTI ESBL E coli bacteremia Pneumonia Indwelling winchester catheter Seizure disorder Dysphagia Developmental disorder/delay. Continue Merrem Repeat blood culture to ensure clearance from port Diagnosis/Problems Diagnosis/Problems (1) Septic shock Status: Resolved Resolution Date/Time: 03/23/22 @ 14:00 (2) Infection due to ESBL-producing Escherichia coli Status: Acute (3) Bacteremia Status: Acute (4) UTI due to Klebsiella species Status: Acute (5) Infection due to Enterobacter cloacae Status: Acute (6) Pneumonia Status: Acute Qualifiers: Pneumonia type: aspiration pneumonia Aspiration pneumonia type: due to vomit Laterality: left Lung location: upper lobe of lung Qualified Codes: J69.0 - Pneumonitis due to inhalation of food and vomit (7) Seizure disorder Status: Chronic (8) Developmental disability Status: Chronic BUTCH AMBRIZ MD Mar 23, 2022 13:53
[2022-03-23 15:39] VITALS: BP 134/69
[2022-03-23] MEDS: NS IV 1000 ML 1,000 ML IV SCH (16:38)
[2022-03-23] MEDS: traZODone 50 MG (DESYREL) TAB PO SCH (21:26)
[2022-03-24 00:14] VITALS: BP 102/60
[2022-03-24] MEDS: NS IV 1000 ML 1,000 ML IV SCH (02:06)
[2022-03-24 04:02] VITALS: BP 121/68
[2022-03-24] MEDS: MEROPENEM 500 MG/NS 100 ML IVPB IV SCH ×8 (05:18→23:46)
[2022-03-24] MEDS: inSUlin ASPART (NovoLOG) 1 UNIT/0.01 ML (CHARGE PER UNIT) SC SCH ×4 (05:29→21:21)
[2022-03-24 07:13] LABS: CALCIUM 8.7 MG/DL (8.5-10.1); CREATININE SERUM 0.78 MG/DL (0.60-1.30); MAGNESIUM 1.8 MG/DL (1.6-2.4); PHOSPHORUS 4.1 MG/DL (2.3-4.7); POTASSIUM 4.1 MMOL/L (3.6-5.0)
[2022-03-24 07:20] VITALS: BP 124/76
[2022-03-24] MEDS: MAGNESIUM 1 GM/100 ML IVPB 100 ML IV SCH (07:23)
[2022-03-24] MEDS: KCL 20 MEQ TAB (K-DUR) PO SCH (07:23)
[2022-03-24] MEDS: POTASSIUM CL 10MEQ/50ML IVPB 50 ML IV SCH (07:23)
[2022-03-24] MEDS: SIMETHICONE 80 MG (MYLICON) CHEW PO SCH ×4 (08:38→21:21)
[2022-03-24] MEDS: SENNA W/DOCUSATE (SENOKOT S) TABLET PO SCH ×2 (08:38→21:21)
[2022-03-24] MEDS: polyethylene glycoL POWDER 17 GM (MIRALAX) PACK PO SCH ×2 (08:38→21:21)
[2022-03-24] MEDS: PANTOPRAZOLE 40 MG (PROTONIX) TAB PO SCH (08:38)
[2022-03-24] MEDS: busPIRone 5 MG (BUSPAR) TAB PO SCH ×2 (08:38→21:21)
[2022-03-24] MEDS: ENOXAPARIN 40 MG/0.4 ML (LOVENOX) SYR SC SCH (13:58)
[2022-03-24 15:57] VITALS: BP 131/72
--- NOTE | 2022-03-24 17:31 | Progress Note - Hospitalist ---
Subjective HPI/CC On Admission Date Seen by Provider: Mar 24, 2022 Time Seen by Provider: 11:40 Subjective/Events-last exam He appears happy. He has no complaints. He gave us a thumbs up. Focused Exam Time of Focused Exam: 14:00 Objective Exam Vital Signs Vital Signs Date Time Temp Pulse Resp B/P (MAP) Pulse Ox O2 Delivery O2 Flow Rate FiO2 03/24/22 15:57 36.0 69 18 131/72 (91) 95 Room Air 03/21/22 18:33 21 Capillary Refill : Less Than 3 Seconds General Appearance: No Apparent Distress, WD/WN Respiratory: Lungs Clear, No Respiratory Distress Cardiovascular: Regular Rate, Rhythm, No Murmur Gastrointestinal: Normal Bowel Sounds, Soft Extremity: Normal Inspection, No Pedal Edema Neurologic/Psychiatric: Alert, Disoriented, Other (spasticity) Skin: Normal Color, Warm/Dry Results/Procedures Lab Laboratory Tests 03/24/22 06:24 Patient resulted labs reviewed. Imaging: Reviewed Imaging Report Assessment/Plan Assessment and Plan Assess & Plan/Chief Complaint Septic Shock, resolved Klebsiella and Enterobacter UTI ESBL E coli bacteremia Pneumonia Indwelling winchester catheter Seizure disorder Dysphagia Developmental disorder/delay. Continue Merrem Repeat blood cultures no growth Diagnosis/Problems Diagnosis/Problems (1) Septic shock Status: Resolved Resolution Date/Time: 03/23/22 @ 14:00 (2) Infection due to ESBL-producing Escherichia coli Status: Acute (3) Bacteremia Status: Acute (4) UTI due to Klebsiella species Status: Acute (5) Infection due to Enterobacter cloacae Status: Acute (6) Pneumonia Status: Acute Qualifiers: Pneumonia type: aspiration pneumonia Aspiration pneumonia type: due to vomit Laterality: left Lung location: upper lobe of lung Qualified Codes: J69.0 - Pneumonitis due to inhalation of food and vomit (7) Seizure disorder Status: Chronic (8) Developmental disability Status: Chronic BUTCH AMBRIZ MD Mar 24, 2022 17:31
[2022-03-24 19:40] VITALS: BP 117/66
[2022-03-24] MEDS: traZODone 50 MG (DESYREL) TAB PO SCH (21:21)
[2022-03-24 23:39] VITALS: BP 134/70
[2022-03-25 04:21] VITALS: BP 121/67
[2022-03-25] MEDS: MEROPENEM 500 MG/NS 100 ML IVPB IV SCH ×4 (05:41→11:20)
[2022-03-25] MEDS: inSUlin ASPART (NovoLOG) 1 UNIT/0.01 ML (CHARGE PER UNIT) SC SCH ×2 (05:42→11:12)
[2022-03-25 05:48] LABS: CREATININE SERUM 0.8 MG/DL (0.60-1.30); MAGNESIUM 1.9 MG/DL (1.6-2.4); PHOSPHORUS 4.2 MG/DL (2.3-4.7); POTASSIUM 4.1 MMOL/L (3.6-5.0)
[2022-03-25] MEDS: POTASSIUM CL 10MEQ/50ML IVPB 50 ML IV SCH (06:11)
[2022-03-25] MEDS: MAGNESIUM 1 GM/100 ML IVPB 100 ML IV SCH (06:12)
[2022-03-25] MEDS: KCL 20 MEQ TAB (K-DUR) PO SCH (06:12)
[2022-03-25 07:12] VITALS: BP 137/65
[2022-03-25] MEDS: PANTOPRAZOLE 40 MG (PROTONIX) TAB PO SCH (07:48)
[2022-03-25] MEDS: SIMETHICONE 80 MG (MYLICON) CHEW PO SCH (07:48)
[2022-03-25] MEDS: SENNA W/DOCUSATE (SENOKOT S) TABLET PO SCH (07:48)
[2022-03-25] MEDS: polyethylene glycoL POWDER 17 GM (MIRALAX) PACK PO SCH (07:48)
[2022-03-25] MEDS: busPIRone 5 MG (BUSPAR) TAB PO SCH (07:48)
--- NOTE | 2022-03-25 08:34 | Discharge Summary ---
Diagnosis/Chief Complaint Date of Admission Mar 16, 2022 at 13:00 Date of Discharge Discharge Date: Mar 25, 2022 Discharge Time: 10:30 Admission Diagnosis Admission Diagnosis Septic Shock urinary tract infection - recurrent, hx of multiorganism infection with extensive resistance pattern Pneumonia Indwelling w[place]ster Seizure disorder Dysphagia Developmental disorder/delay. Bipolar mood disorder Contractures of hands/feet Discharge Diagnosis Septic Shock urinary tract infection - recurrent, hx of multiorganism infection with extensive resistance pattern Pneumonia Indwelling winchester Seizure disorder Dysphagia Developmental disorder/delay. 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 There was concern by his senior living staff that he may have aspirated. Upon examination in the emergency room he was found to be hypotensive with se ptic shock. He had a central line placed and was started on a norepinephrine drip as well as aggressive IVFs. His CXR did show a left upper lobe infiltrate and there was also concern about underlying UTI due to his chronic indwelling winchester catheter. He was given a dose of cefepime in the ER. He will be admitted to the ICU on a norepinephrine drip as well as rocephin and zithromax. He will be continued on keppra and his lamictal will also be restarted. Discharge Summary Discharge Physical Examination Allergies: Coded Allergies: lorazepam (Verified Adverse Reaction, Intermediate, HYPERACTIVITY, 12/07/21) Vitals & I&Os Vital Signs Date Time Temp Pulse Resp B/P (MAP) Pulse Ox O2 Delivery O2 Flow Rate FiO2 03/25/22 13:30 36.3 78 18 137/65 96 Room Air 03/21/22 18:33 21 General Appearance: Alert, Cooperative Respiratory: Clear to Auscultation, Normal Air Movement Cardiovascular: Regular Rate Abdominal: Normal Bowel Sounds, Soft, No Tenderness Extremities: No Cyanosis Skin: No Significant Lesion Neuro: Other (chronic developmental cognitive and physical debility with contractures of hands and feet, garbled speech) Hospital Course Was the Problem List Reviewed?: Yes Septic Shock urinary tract infection - recurrent, hx of multiorganism infection with extensive resistance pattern Pneumonia Indwelling w[place]ster Seizure disorder Dysphagia Developmental disorder/delay. 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 Recurrent UTI - multidrug resistant pt to be on current antibiotic regimen of Meropenem with completion of antibiotic therapy on 03/24/22. Seizure d/o - having dysphagia - changed from keppra pills to liquid Keppra - He is tolerating the liquid keppra without choking as was witnessed on the Keppra tablets (unable to cut or crush the keppra) mood changes - added buspirone with improved symptoms. Constipation with bloating - added simethicone, dulcolax suppository and his bloating has improved. Developmental delay, bipolar mood d/o - continue home regimen. Discharge to his facility with chronic indwelling winchester catheter with home health ordered - for labs and therapy. Pending Labs Discharge Condition at discharge improved Instructions to patient/family Please see electronic discharge instructions given to patient. Discharge Medications Reviewed and agree with Discharge Medication list on patient's Discharge Instruction sheet TOBY BURGOS MD Mar 25, 2022 08:34
[2022-03-25] MEDS ORDERED: BUSP5TAB59 PO (10:16)
[2022-03-25] MEDS ORDERED: LEVETIRACETAM PO (10:16)
[2022-03-25] MEDS ORDERED: SIME80TA16 PO (10:16)
--- NOTE | 2022-03-25 10:19 | D/C HH Face to Face Order ---
D/C Face to Face Orders Reconcile Patient Problems Problems Reviewed?: Yes Instructions for Patient Via [employer], Patient Instructions/FollowUp: [address] CANALES'S OFFICE Physician to follow Patient: ALLY Discharge Diet for Home: other diet (DIET TOLERATED AT HOME) Patient Problems: SEIZURE DISORDER DEVELOPMENTAL DISORDER RECURRENT URINARY TRACT INFECTION RECENT HX SEPSIS FROM UTI Patient Data-Allergies,Ht & Wt Patient Allergies: Coded Allergies: lorazepam (Verified Adverse Reaction, Intermediate, HYPERACTIVITY, 12/07/21) Height (Feet): 5 Height (Inches): 9.00 Weight (Pounds): 180 Weight (Ounces): 1.0 Home Health Need/Face to Face Date of Face to Face: Mar 25, 2022 Clinical Findings: Generalized weakness and fatigue, Non or partial weight bearing I have seen Pt [id number]: Yes Discharged To: Home Diagnosis/Conditions: SEIZURE DISORDER DEVELOPMENTAL DISORDER RECURRENT URINARY TRACT INFECTION RECENT HX SEPSIS FROM UTI Patient is Homebound due to: CognItive deficits, Non-weight bearing Homebound Status Due to the above stated illness, injury or surgical procedure (medical condition or diagnosis) and associated clinical findings, the patient is homebound because of his/her inability to leave home except with aid of a supportive device and/or person AND leaving the home requires a considerable and taxing effort or is medically contraindicated. Pt req the following assistanc: Wheelchair Home Health Nursing Orders Home Health Services Order: Nursing Services, Physical Therapy-Evaluate & Treat THERAPY FOR STRENGTHENING/RANGE OF MOTION NURSING FOR CHECK OF LABS, CBC, CMP, KEPPRA LEVEL IN 2 WKS FROM [facility] Therapy Line Start Date: Mar 16, 2022 Therapy Orders Therapy Orders: PT to assess for OT Therapy Specific Orders: Increase strength/endurance, Provider maintenance therapy Certify Stmt I certify that this patient is under my care and that I, a nurse practitioner or a physician; a medical research assistant working with me, had a face to face encounter that - meets the physician face to face encounter requirements with this patient as dated. TOBY BURGOS MD Mar 25, 2022 10:18
[2022-03-25 13:30] VITALS: BP 137/65
== END 2022-03-25 13:33 | disposition home health service (06) | DRG 698 ==
LOC: EDUNIT# 12:37 → ER 12:38 → ICU 13:00 → 4TH 03-18 14:55
PROVIDERS: ADMIT Family Medicine; ATTEND Family Medicine
DX: T83.511A Infection and inflammatory reaction due to indwelling urethral catheter, initial encounter (principal); A41.1 Sepsis due to other specified staphylococcus; A41.51 Sepsis due to Escherichia coli [E. coli]; A41.81 Sepsis due to Enterococcus; R65.21 Severe sepsis with septic shock; J69.0 Pneumonitis due to inhalation of food and vomit; Z16.12 Extended spectrum beta lactamase (ESBL) resistance; F72 Severe intellectual disabilities; R13.10 Dysphagia, unspecified; Z20.822 Contact with and (suspected) exposure to COVID-19; D64.9 Anemia, unspecified; F31.9 Bipolar disorder, unspecified; D69.6 Thrombocytopenia, unspecified; G40.909 Epilepsy, unspecified, not intractable, without status epilepticus; F41.9 Anxiety disorder, unspecified; B91 Sequelae of poliomyelitis; M24.541 Contracture, right hand; M24.574 Contracture, right foot; N32.0 Bladder-neck obstruction; K59.00 Constipation, unspecified; G47.00 Insomnia, unspecified; H54.7 Unspecified visual loss; B96.1 Klebsiella pneumoniae [K. pneumoniae] as the cause of diseases classified elsewhere; Z88.8 Allergy status to other drugs, medicaments and biological substances
CPT/HCPCS: 36415; 71045; 71046; 80048; 80053; 81000; 82947; 83605; 83735; 84100; 84145; 84146; 84484; 85007; 85025; 85027; 85610; 85730; 87040; 87077; 87081; 87088; 87184; 87186; 87636; 94640; 94760; 96361; 96365; 96367; 96368

== ENCOUNTER 2022-04-01 19:27 | Emergency (ER) | payer MEDICARE, MEDICAID ==
[~2022-04-01 19:27] MED LIST changes: +BUSP5TAB59 PO; +ERTA1VIA4 IV; +LEVETIRACETAM PO; +PREG50CA65 PO; +SIME80TA16 PO
[2022-04-01] MEDS ORDERED: SUCCINYLCHOLINE INJ 20 MG/1 ML 10 ML VIAL INJ ONE (19:29)
[2022-04-01] MEDS ORDERED: MIDAZOLAM 5 MG/5 ML (VERSED) VIAL IJ ONE (19:29)
[2022-04-01] MEDS ORDERED: LACTATED RINGERS 1,000 ML IV ONE (19:45)
[2022-04-01] MEDS: LIDOCAINE UROJET 2% GEL 10 ML PKG TOP ONE ×2 (19:53→20:12)
[2022-04-01 19:58] LABS: LYMPHOCYTES # (AUTO) 1.9 10^3/uL (1.0-4.0); MEAN CORPUSCULAR VOLUME 100 fL (80-99)
[2022-04-01 20:00] LABS: BASOPHILS % (AUTO) 1 % (0-10); EOSINOPHILS # (AUTO) 0.1 10^3/uL (0.0-0.3); EOSINOPHILS % (AUTO) 2 % (0-10); HEMATOCRIT 33 % (40-54); HEMOGLOBIN 10.5 g/dL (13.3-17.7); LYMPHOCYTES % (AUTO) 34 % (12-44); MEAN CORPUSCULAR HEMOGLOBIN 32 pg (25-34); MEAN CORPUSCULAR HGB CONC 32 g/dL (32-36); MEAN PLATELET VOLUME 10.1 fL (9.0-12.2); MONOCYTES # (AUTO) 0.4 10^3/uL (0.0-1.0); MONOCYTES % (AUTO) 6 % (0-12); NEUTROPHILS # (AUTO) 3.2 10^3/uL (1.8-7.8); NEUTROPHILS % (AUTO) 57 % (42-75); PLATELET COUNT 269 10^3/uL (130-400); WHITE BLOOD COUNT 5.6 10^3/uL (4.3-11.0)
--- NOTE | 2022-04-01 20:11 | ED General ---
General Chief Complaint: Neurological Problems Stated Complaint: SEIZURE Nursing Triage Note: TO ED VIA [facility] FROM [facility] TYPE LIVING SITUATION AFTER HE HAD A SEIZURE. PT HAS HX OF SEIZURES AND HAS BEEN SEEN IN THIS ER MX TIMES FOR SAME COMPLAINTS. PT JUST RELEASED FROM THIS HOSPITAL 03/25/22. Source of Information: Old Records (ALL PMH IS FROM OLD RECORDS) Exam Limitations: Other (PT IS NON-VERBAL) History of Present Illness Date Seen by Provider: Apr 01, 2022 Time Seen by Provider: 19:33 Initial Comments PT ARRIVES VIA EMS FROM [facility] PT HAS LONGSTANDING HISTORY OF SEIZURES, AND TONIGHT AFTER HE SHOWERED, HE HAD A SEIZURE NO DETAILS OF SEIZURE ARE KNOWN NO OTHER INFORMATION IS AVAILABLE AT THIS TIME PT WAS HOSPITALIZED FROM 03/16/22-03/25/22 FOR SEIZURE WITH SEPSIS, UTI AND ASPIRATION PNEUMONIA PT'S BASELINE--MINIMAL VERBALIZATION, M.R., NON-MOBILE WITH CONTRACTURES, POST- POLIO SYNDROME. THERE IS A CAREGIVER THAT ARRIVES, AND ONLY INFORMATION THAT CAREGIVER CAN GIVES IS THAT HE WAS SITTING ON A SHOWER CHAIR WHEN HE HAD SEIZURE. NO OTHER DETAILS ARE KNOWN. PCP: DR. CANALES Allergies and Home Medications Allergies Coded Allergies: lorazepam (Verified Adverse Reaction, Intermediate, HYPERACTIVITY, 12/07/21) Patient Home Medication List Home Medication List Reviewed: Yes Acetaminophen (Acetaminophen) 500 Mg Tablet, 500 MG PO Q6H PRN for PAIN-MILD (1- 4) OR TEMPATURE, (Reported) Entered as Reported by: HAROLDO STONE on 06/03/16 1413 Aripiprazole (Aripiprazole) 10 Mg Tablet, 10 MG PO HS, (Reported) Entered as Reported by: MAHENDRA SANTOS on 12/21/21 1542 Bismuth Subsalicylate (Pepto-Bismol) 262 Mg/15 Ml Oral.susp, PO UD PRN for UPSET STOMACH/INDIGESTION, (Reported) Entered as Reported by: SREE MICHELLE on 07/01/17 0852 Buspirone HCl (Buspirone HCl) 5 Mg Tablet, 5 MG PO BID Prescribed by: TOBY BURGOS on 03/25/22 1016 Calamine/Zinc Oxide (Calamine Lotion) 177 Ml Lotion, TP UD PRN for RASH, (Reported) Entered as Reported by: SREE MICHELLE on 07/01/17844 Ciclopirox (Ciclopirox) 8 % Solution, 1 APPLIC TP HS, (Reported) Entered as Reported by: MAHENDRA SANTOS on 12/21/211541 Citalopram Hydrobromide (Citalopram HBr) 40 Mg Tablet, 40 MG PO DAILY, (Reported) Entered as Reported by: MAHENDRA SANTOS on 12/21/211541 Cranberry Extract (Cranberry) 425 Mg Capsule, 425 MG PO BID, (Reported) Entered as Reported by: MAHENDRA SANTOS on 12/21/211541 Fluticasone Propionate (Fluticasone Propionate) 16 Gm Dale.susp, 1 SPRAY NS BI D, (Reported) Entered as Reported by: SREE MICHELLE on 07/01/17844 Guaifenesin/D-Methorphan Hb/PE (Robitussin Cough-Cold Cf Liq) 118 Ml Liquid, PO UD PRN for COUGH/CONGESTION, (Reported) Entered as Reported by: SREE MICHELLE on 07/01/17851 Hydrocortisone (Hydrocortisone) 1 % Cream..g., 1 APPLIC TP UD PRN for RASH AND ITCHING, (Reported) Entered as Reported by: MAHENDRA SANTOS on 12/21/211541 Ketoconazole (Ketoconazole) 2 % Shampoo, 1 APPLIC TOP TWICE WEEKLY, (Reported) Entered as Reported by: MAHENDRA SANTOS on 12/21/211541 L. Rhamnosus GG/Inulin (Culturelle Capsule) 10 Billion Cell-200 Mg Cap.sprink, 1 CAP PO DAILY, (Reported) Entered as Reported by: SREE MICHELLE on 07/01/17844 Loratadine (Loratadine) 10 Mg Tablet, 10 MG PO HS, (Reported) Entered as Reported by: SREE MICHELLE on 07/01/17844 Menthol (Gold Rosario Medicated Body) 0.8 % Powder, 1 APPLIC TP UD PRN for FOOT ODOR AND WETNESS, (Reported) Entered as Reported by: MAHENDRA SANTOS on 12/21/211541 Metronidazole (Metronidazole) 0.75 % Lotion, 1 APPLIC TOP HS PRN for SKIN IRRITATION, (Reported) Entered as Reported by: MAHENDRA SANTOS on 12/21/211541 Mirtazapine (Mirtazapine) 15 Mg Tablet, 15 MG PO HS, (Reported) Entered as Reported by: MAHENDRA SANTOS on 12/21/21 154 Naphazoline HCl/Pheniramine (Opcon-A Eye Drops) 0.67120 %-0.315 % Drops, 1-2 DROPS OU UD PRN for REDNESS/SWELLING FROM ALLERGY, (Reported) Entered as Reported by: SREE MICHELLE on 07/01/17 0852 Neomycin Dinh/Bacitrac Zn/Poly (Gnp Triple Antibiotic Ointment) 28.4 Gm Oint...g., TP UD PRN for MINOR CUTS, SCRAPES, AND SORES, (Reported) Entered as Reported by: SREE MICHELLE on 07/01/17851 Nystatin (Nystatin) 100,000 Unit/Gram Cream..g., 1 APPLIC TOP BID PRN for SCALING RASH, (Reported) Entered as Reported by: MAHENDRA SANTOS on 12/21/21 154 Omeprazole (Omeprazole) 40 Mg Capsule.dr, 40 MG PO DAILY, (Reported) Entered as Reported by: MAHENDRA SANTOS on 03/18/22 1143 Pnv with Ca,No.72/Iron/FA ( Plus Tablet) 27 Mg Iron-1 Mg Tablet, 1 EA PO DAILY, (Reported) Entered as Reported by: MAHENDRA SANTOS on 12/21/21 154 Polyethylene Glycol 3350 (Polyethylene Glycol 3350) 17 Gm Powd.pack, 17 GM PO BID, (Reported) Entered as Reported by: IRASEMA HUMPHREY on 09/28/18 1428 Pregabalin (Pregabalin) 50 Mg Capsule, 50 MG PO DAILY, (Reported) Entered as Reported by: JUANITA VILLAGRAN on 03/16/22 1644 Sennosides/Docusate Sodium (Stimulant Laxative Plus Tablet) 8.6 Mg-50 Mg Tablet, 2 EA PO BID, (Reported) Entered as Reported by: MAHENDRA SANTOS on 12/21/21 154 Simethicone (Simethicone) 80 Mg Tab.chew, 80 MG PO PCHS Prescribed by: TOBY BURGOS on 03/25/22 1016 [place] Locke (Andrew) 50 % Med..pad, 1 EACH TP QID PRN for HEMMORRHOID DISCOMFORT, (Reported) Entered as Reported by: MAHENDRA SANTOS on 01/08/22 1133 [LevETIRAcetam ORAL SOLUTION] 100 MG/ML SOLN, 1,000 MG PO BID Prescribed by: TOBY BURGOS on 03/25/22 1016 Review of Systems Review of Systems Constitutional: see HPI Psychiatric/Neurological: See HPI Past Rwlcymw-Scngxz-Jcapqq Hx Immunizations Up To Date Tetanus Booster (TDap): Less than 5yrs PED Vaccines UTD: No Seasonal Allergies Seasonal Allergies: Yes Past Medical History Surgery/Hospitalization HX: PMH: MOOD DISORDER, DEPRESSION, SLEEP DISORDER, SEIZURES, CHILDHOOD POLIO, BANGLADESHI MEASLES, MR, CONSTIPATION, CHF Surgeries: Yes Eye Surgery, Gallbladder, Orthopedic Respiratory: No Currently Using CPAP: No Currently Using BIPAP: No Neurological: Yes (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;MR; POST POLIO) Developmental Disorder, Seizure Disorder Sexually Transmitted Disease: No HIV/AIDS: No Genitourinary: Yes Prostate Problems, UTI-Chronic Gastrointestinal: Yes (S/P MATILDE) Chronic Constipation, Chronic Diarrhea, Gall Bladder Disease Musculoskeletal: Yes (CONTRACTURES OF HANDS AND FEET; NON-AMBULATORY) Fractures, Contracture Endocrine: No HEENT: No Loss of Vision: Denies Hearing Impairment: Denies Cancer: No Psychosocial: Yes (MR, SEVERE ADAPTIVE BEHAVIOR DISORDER, CONVULSIONS, DELUSIONAL DISORDER) Anxiety Integumentary: No Blood Disorders: Yes (ANEMIA) Adverse Reaction/Blood Tranf: No Family Medical History PAST SURGICAL HISTORY: -SURGERY ON ALL LEFT TOES -EGD'S/COLONSCOPIES -RIGHT FEMUR FX/ORIF -PROSTATE SURGERY ADDITIONAL PMH: -POST POLIO SYNDROME WITH LEFT SIDED CONTRACTURES, 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 1.0oz. 81.307843kf; 27.98 BMI Method:Stated General Appearance: No Apparent Distress, WD/WN, Other (PT MAKING GUTTERAL NOISES. NOT ANSWERING QUESTIONS OR FOLLOWING COMMADS, PT DOES SLOWLY OPEN EYES TO VOICE; PT WITH GENERALIZED CONTRACTURES, AND HEAD AND BODY ARE SIDEBENT TO RIGHT) HEENT: Other (DOES APPEAR TO HAVE MINOR ABRASIONS TO TONGUE AND INSIDE OF LOWER LIP. NO ACTIVE BLEEDING AT THIS TIME. ) Neck: Normal Inspection Respiratory: Normal Breath Sounds, No Accessory Muscle Use, No Respiratory Distress Cardiovascular: Regular Rate, Rhythm, No Murmur Gastrointestinal: Soft, Other (SUPRAPUBIC CATHETER IN PLACE) Extremity: Pedal Edema (3+ EDEMA TO FEET AND LOWER LEGS, WITH SOME EDEMA TO HANDS), Other (SEVERE FLEXION CONTRACTURES OF ALL EXTREMITES, LEFT > RIGHT SIDE, AND OF TRUNK AND NECK) Neurologic/Psychiatric: Other ( ABOVE. ) Skin: Normal Color, Warm/Dry, Other (NO EXTERNAL EVIDENCE OF TRAUMA ANYWHERE; DOES HAVE SOME ERYTHEMA WITH POSSIBLE EARLY BLISTERING TO HEELS. ) Focused Exam Sepsis Stage: Sepsis Reason for ruling out sepsis: POSSIBLE Possible Source: Other (URINARY AND PULMONARY) Lactate Level 04/01/22 21:31: Lactic Acid Level 4.49*H 04/01/22 23:19: Lactic Acid Level 1.62 Time of Focused Exam: 20:55 Respiratory: Normal Breath Sounds, No Accessory Muscle Use, No Respiratory Distress Cardiovascular: Regular Rate, Rhythm, No Murmur Capillary Refill: Less Than 3 Seconds Skin: normal color, warm/dry Lactic Acid Level Laboratory Tests Test 04/01/22 21:31 04/01/22 23:19 Lactic Acid Level 4.49 MMOL/L (0.50-2.00) *H 1.62 MMOL/L (0.50-2.00) Within 3hrs of presentation: Admin fluids, Admin ABX, Blood cultures prior to ABX's, Focus exam, Lactate level Procedures/Interventions Date of ETT Placement: Apr 01, 2022 Intubation Method: orotracheal Medications: Propofol, Succinylcholine, Versed Positive End Tide CO2: Yes Breath Sounds after Intubation: bilateral-equal Intubation Complications: no complications Post Intubation Xray: Yes SEE NURSING NOTES FOR DETAILS. DIFFICULT INTUBATION DUE TO PT'S CONTRACTURES, WITH HEAD AND NECK SIDEBENT TO RIGHT Progress/Results/Core Measures Suspected Sepsis SIRS Temperature: Pulse: 80 Respiratory Rate: 16 Laboratory Tests 04/01/22 19:39: White Blood Count 5.6 Blood Pressure 138 /106 Mean: 117 04/01/22 21:31: Lactic Acid Level 4.49*H 04/01/22 23:19: Lactic Acid Level 1.62 Laboratory Tests 04/01/22 19:39: Creatinine 0.82, Platelet Count 269, Total Bilirubin 0.3 04/01/22 19:46: INR Comment 0.9 Results/Orders Lab Results Laboratory Tests Test 04/01/22 19:36 04/01/22 19:39 04/01/22 19:46 04/01/22 21:31 Range/Units Urine Color YELLOW Urine Clarity CLOUDY Urine pH 5.5 5-9 Urine Specific [place] >=1.030 1.016-1.022 Urine Protein 2+ H NEGATIVE Urine Glucose (UA) NEGATIVE NEGATIVE Urine Ketones NEGATIVE NEGATIVE Urine Nitrite POSITIVE H NEGATIVE Urine Bilirubin NEGATIVE NEGATIVE Urine Urobilinogen 0.2 < = 1.0 MG/DL Urine Leukocyte Esterase 3+ H NEGATIVE Urine RBC (Auto) TRACE-I H NEGATIVE Urine RBC 25-50 H /HPF Urine WBC TNTC H /HPF Urine Crystals NONE /LPF Urine Bacteria MODERATE H /HPF Urine Casts NONE /LPF Urine Mucus NEGATIVE /LPF Urine Culture Indicated YES White Blood Count 5.6 4.3-11.0 10^3/uL Red Blood Count 3.27 L 4.30-5.52 10^6/uL Hemoglobin 10.5 L 13.3-17.7 g/dL Hematocrit 33 L 40-54 % Mean Corpuscular Volume 100 H 80-99 fL Mean Corpuscular Hemoglobin 32 25-34 pg Mean Corpuscular Hemoglobin Concent 32 32-36 g/dL Red Cell Distribution Width 14.6 H 10.0-14.5 % Platelet Count 269 130-400 10^3/uL Mean Platelet Volume 10.1 9.0-12.2 fL Immature Granulocyte % (Auto) 1 % Neutrophils (%) (Auto) 57 42-75 % Lymphocytes (%) (Auto) 34 12-44 % Monocytes (%) (Auto) 6 0-12 % Eosinophils (%) (Auto) 2 0-10 % Basophils (%) (Auto) 1 0-10 % Neutrophils # (Auto) 3.2 1.8-7.8 10^3/uL Lymphocytes # (Auto) 1.9 1.0-4.0 10^3/uL Monocytes # (Auto) 0.4 0.0-1.0 10^3/uL Eosinophils # (Auto) 0.1 0.0-0.3 10^3/uL Basophils # (Auto) 0.0 0.0-0.1 10^3/uL Immature Granulocyte # (Auto) 0.1 0.0-0.1 10^3/uL Percent Immature Platelet Fraction 2.7 0.0-7.6 % Sodium Level 137 135-145 MMOL/L Potassium Level 4.6 3.6-5.0 MMOL/L Chloride Level 105 98-107 MMOL/L Carbon Dioxide Level 19 L 21-32 MMOL/L Anion Gap 13 5-14 MMOL/L Blood Urea Nitrogen 18 7-18 MG/DL Creatinine 0.82 0.60-1.30 MG/DL Estimat Glomerular Filtration Rate 101 BUN/Creatinine Ratio 22 Glucose Level 172 H 70-105 MG/DL Calcium Level 8.4 L 8.5-10.1 MG/DL Corrected Calcium 9.2 8.5-10.1 MG/DL Magnesium Level 2.3 1.6-2.4 MG/DL Total Bilirubin 0.3 0.1-1.0 MG/DL Aspartate Amino Transf (AST/SGOT) 30 5-34 U/L Alanine Aminotransferase (ALT/SGPT) 39 0-55 U/L Alkaline Phosphatase 335 H 40-136 U/L Total Creatine Kinase 48 30-200 U/L Creatine Kinase MB 6.7 *H <6.6 NG/ML Myoglobin 106.2 H 10.0-92.0 NG/ML Troponin I < 0.028 <0.028 NG/ML B-Type Natriuretic Peptide 116.2 H <100.0 PG/ML Total Protein 6.6 6.4-8.2 GM/DL Albumin 3.0 L 3.2-4.5 GM/DL Prothrombin Time 12.3 12.2-14.7 SEC INR Comment 0.9 0.8-1.4 Activated Partial Thromboplast Time 23 L 24-35 SEC Lactic Acid Level 4.49 *H 0.50-2.00 MMOL/L Test 1/30/23 21:37 04/01/22 22:37 04/01/22 23:19 Range/Units Influenza Type A (RT-PCR) Not Detected Not Detecte Influenza Type B (RT-PCR) Not Detected Not Detecte SARS-CoV-2 RNA (RT-PCR) Not Detected Not Detecte Blood Gas Puncture Site RIGHT RADIAL Blood Gas Patient Temperature 33.5 Arterial Blood pH 7.42 7.37-7.43 Arterial Blood Partial Pressure CO2 37 35-45 MMHG Arterial Blood Partial Pressure O2 241 H 79-93 MMHG Arterial Blood HCO3 25 23-27 MMOL/L Arterial Blood Total CO2 26.3 21.0-31.0 MMOL/L Arterial Blood Oxygen Saturation 100 94-100 % Arterial Blood Base Excess 0.3 -2.5-2.5 MMOL/L Blake Test YES-POS Blood Gas Ventilator Setting YES Blood Gas Inspired Oxygen 100% Lactic Acid Level 1.62 0.50-2.00 MMOL/L My Orders Orders - TONYA BLOOD DO Cbc With Automated Diff (04/01/22 19:36) Comprehensive Metabolic Panel (04/01/22 19:36) Creatine Kinase (04/01/22 19:36) Creatine Kinase Mb (04/01/22 19:36) Magnesium (04/01/22 19:36) Ua Culture If Indicated (04/01/22 19:36) Myoglobin Serum (04/01/22 19:36) Monitor-Rhythm Ecg Trace Only (04/01/22 19:36) Ed Iv/Invasive Line Start (04/01/22 19:36) Lactated Ringers (Lr 1000 Ml Iv Solution (04/01/22 19:45) Levetiracetam Injection (Keppra Injectio (04/01/22 21:00) Lidocaine 2% (Urojet) (Xylocaine Urojet) (04/01/22 19:45) Chest 1 View, Ap/Pa Only (04/01/22 19:39) Levetiracetam Injection (Keppra Injectio (04/01/22 19:45) Diazepam Injection (Valium Injection) (04/01/22 20:30) Diazepam Injection (Valium Injection) (04/01/22 20:31) Ekg Tracing (04/01/22 20:38) O2 (04/01/22 20:38) Urine Culture (04/01/22 19:36) Blood Culture (04/01/22 20:56) Protime With Inr (04/01/22 20:56) Partial Thromboplastin Time (04/01/22 20:56) Ed Iv/Invasive Line Start (04/01/22 20:56) Vital Signs Adult Sepsis Patie Q15M (04/01/22 20:56) O2 (04/01/22 20:56) Remove Rings In Anticipation O (04/01/22 20:56) Lactic Acid Analyzer (04/01/22 20:56) Cefepime Injection (Maxipime Injection) (04/01/22 21:00) Ed Iv/Invasive Line Start (04/01/22 20:56) Ns Iv 1000 Ml (Sodium Chloride 0.9%) (04/01/22 21:00) Meropenem (Merrem 1000 Mg) (04/01/22 21:15) Fosphenytoin Injection (Cerebyx Injectio (04/01/22 21:15) Chest 1 View, Ap/Pa Only (04/01/22 21:33) Propofol Drip (Icu) (Diprivan Drip (Icu) (04/01/22 21:45) Covid 19 Inhouse Test (04/01/22 21:36) Influenza A And B By Pcr (04/01/22 21:36) Isolation Central Supply Req (04/01/22 21:36) Ng Tube Insert & Assessment (04/01/22 21:37) Bnp Marin (04/01/22 21:52) Troponin I Michael (04/01/22 21:52) Furosemide Injection (Lasix Injection) (04/01/22 22:00) Arterial Blood Gas (04/01/22 22:24) Norepinephrine 8 Mg/250 Ml (Norepinephri (04/01/22 23:00) Medications Given in ED Current Medications Medications Dose Ordered Sig/Ewelina Route Start Time Stop Time Status Last Admin Dose Admin Diazepam 5 mg ONCE ONCE IVP 04/01/22 20:30 04/01/22 20:31 DC 04/01/22 20:40 5 MG Furosemide 80 mg ONCE ONCE IVP 04/01/22 22:00 04/01/22 22:01 DC 04/01/22 21:58 80 MG Lactated Ringer's 1,000 ml @ 0 mls/hr Q0M ONCE IV 04/01/22 19:45 04/01/22 19:46 DC 04/01/22 19:53 999 MLS/HR Levetiracetam 1000 mg/Sodium Chloride 110 ml @ 440 mls/hr ONCE ONCE IV 04/01/22 19:45 04/01/22 19:59 DC 04/01/22 19:53 440 MLS/HR Meropenem 1000 mg/ Sodium Chloride 100 ml @ 200 mls/hr ONCE ONCE IV 04/01/22 21:15 04/01/22 21:44 DC 04/01/22 21:52 200 MLS/HR Vital Signs/I&O 04/01/22 04/01/22 04/01/22 04/01/22 19:29 19:29 20:31 21:54 Temp 33.8 Pulse 80 92 Resp 16 B/P (MAP) 138/106 (117) Pulse Ox 97 O2 Delivery Room Air Room Air OxyMask O2 Flow Rate 10.00 04/01/22 04/01/22 04/01/22 04/02/22 22:12 23:21 23:29 00:16 Temp 34.3 36.3 Pulse 90 86 56 Resp 21 B/P (MAP) 88/60 125/66 (85) Pulse Ox 94 O2 Delivery Mechanical Ventilator O2 Flow Rate 80.00 FiO2 100 04/02/22 04/02/22 01:05 01:44 Temp 36.3 36.7 Pulse 70 91 Resp 20 B/P (MAP) 115/62 (79) 109/79 Pulse Ox 97 99 O2 Delivery FI02 Mechanical Ventilator O2 Flow Rate 80.00 80.00 04/02/22 00:00 Intake Total 2210 ml Output Total 250 ml Balance 1960 ml Capillary Refill : Less Than 3 Seconds Blood Pressure Mean: 117 Progress Note : Progress Note O2 SATS UPPER 90'S-100% ON ROOM AIR ON ARRIVAL NO HYPOTENSION OR TACHYCARDIA ON ARRIVAL NO FEVER--TEMP IS LOW--91 DEGREES F NO DYSPNEA ALL PMH IS FROM OLD RECORDS, WHICH WERE REVIEWED--INCLUDING PRIOR ER VISITS, ADMITS, H&P'S, CONSULTS, TESTS/PROCEDURES, AND DISCHARGE SUMMARIES PT HAS BEEN A FULL CODE ON ALL PRIOR ADMITS, INCLUDING THE ADMIT THIS MONTH. PT HAS A LEGAL GUARDIAN. GIVEN: -IV FLUIDS -KEPPRA -VALIUM GIVEN AFTER SEIZURES X 2 DOSES -RSI MEDICATIONS, AND PROPOFOL DRIP -LASIX FOR FLUID OVERLOAD -MEROPENEM FOR UTI WITH HX OF MULTIPLE DRUG RESISTANT ORGANISMS NOTED ON MOST RECENT URINE CULTURE. WELL FOR PNEUMONIA -LEVOPHED DRIP 2029--PT HAD FULL TONIC-CLONIC SEIZURE THAT LASTED LESS THAN 1 MINUTE DID HAVE DROP IN O2 SATS DOWN TO 68%--NASAL TRUMPET PLACED IN RIGHT NARE, AND PLACED ON O2 NRB AT 15L AND O2 SATS UP TO 98% 2100--PT HAD ANOTHER SEIZURE, LASTING 1 1/2 MINUTES. PT'S SATS DROPPED AGAIN TO 60'S, AND REQUIRED BAGGING. PT REQUIRED INTUBATION AT THIS POINT. SEPSIS PROTOCOL WAS INITIATED, AND PT HAS SUSPECTED SEPSIS, BASED ON HYPOTHERMIA, ELEVATED LACTIC ACID, IN PRESENCE OF UTI AND PNEUMONIA PT WAS FOUND TO BE IN CHF ON FIRST CXR, PT WAS GIVEN FLUIDS BUT NOT AGGRESSIVELY, AND GIVEN LASIX AFTER INTUBATION, BP SLOWLY TRENDED DOWNWARD, AND PT WAS STARTED ON LEVOPHED. COMPLEX MANAGEMENT, DUE TO MULTIPLE ISSUES AND CO-MORBIDITIES. OVERALL PROGNOSIS IS GUARDED AT THIS TIME, PT'S BASELINE FUNCTION IS LOW WITH IMMOBILITY, CONTRACTURES, WITH SEVERE MR, AND ESSENTIALLY NON-VERBAL. VITALS AT TIME OF TRANSFER: HR 89, BP 115/62, O2 SAT 100% ON VENTILATOR CAREGIVER WAS HERE FOR NEARLY ALL OF PT'S VISIT, AND WAS UPDATED ON PT'S CONDITION THROUGHOUT ER STAY. ECG Initial ECG Impression Date: Apr 01, 2022 Initial ECG Impression Time: 21:40 Initial ECG Rate: 83 Initial ECG Rhythm: Normal Sinus Initial ECG Impression: Nonspecific Changes Initial ECG Comparisson: Unchanged (NO CHANGE FROM 01/14/22) Comment INTERPRETED BY ME Diagnostic Imaging Comments CXR--PER RADIOLOGIST REPORT AT 2150 FINDINGS: There is cardiomegaly. There is moderate central pulmonary venous congestion. There is no pleural effusion or pneumothorax. IMPRESSION: Cardiomegaly and moderate central pulmonary venous congestion. CXR POST INTUBATION--PER RADIOLOGIST REPORT AT 2204 FINDINGS: The endotracheal tube has its tip at the thoracic inlet. Nasogastric tube is below the diaphragm. There is cardiomegaly. There is venous congestion. There is a right upper lobe infiltrate. IMPRESSION: The endotracheal tube appears to be at the thoracic inlet within the nasogastric tube below the diaphragm. Cardiomegaly and some venous congestion with a right upper lobe infiltrate suspect for pneumonia. Reviewed: Reviewed by Me Critical Care Note Critical Care Start Time: 19:33 Stop Time: 01:12 Total Time (minutes) 310 Departure Communication (Admissions) 2058--SPOKE WITH DR. CANALES, ACCEPTS PT FOR ADMIT 2106--CALLED E-ICU PHYSICIAN, WHO RECOMMENDS TRANSFER TO HIGHER LEVEL OF CARE WITH NEUROLOGY SERVICES 2109--SPOKE WITH DR. CANALES, AND SHE AGREES WITH TRANSFER. 2124--HAVE JUST BEEN INFORMED THAT WE NO LONGER HAVE ANY ICU BEDS HERE, SO PT WILL REQUIRE TRANSFER REGARDLESS. 2132--CALLED [facility]. THEY WILL PAGE TECHNOLOGY PROGRAM MANAGER AND CALL BACK. 2217--[facility] CALLED BACK. THEIR TECHNOLOGY PROGRAM MANAGER AND NEUROLOGIST DECLINE, AND ADVISE HIGHER LEVEL OF CARE THAT CAN PROVIDE CONTINUOUS EEG MONITORING. [facility] DOES NOT HAVE IN-HOUSE NEUROLOGIST AT THIS TIME. 2218--CALLED [facility]. THEY WILL CALL BACK. 2309--[facility] CALLED BACK FOR ADDITIONAL INFORMATION ABOUT PT, THEY WILL CALL BACK. 2348--[facility] CALLED BACK. DR. MADY MAYES HAS ACCEPTED PT FOR ADMIT/TRANSFER. [facility] CONTACTED FOR TRANSPORT 2355--[facility] WILL NOT BE ABLE TO TRANSPORT PATIENT UNTIL SOMETIME TOMORROW MORNING. 2358--[facility] BEING CONTACTED AT THIS TIME. 0017--[facility] WILL BE HERE TO TRANSPORT PATIENT. ETA 39 MINUTES. 0059--CALLED NUMBER FOR [employer] [facility], PT'S GUARDIAN, MESSAGE LEFT ON MACHINE 0112--[facility] HERE. 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 Referrals: SETH CANALES DO (PCP/Family) Primary Care Physician TONYA BLOOD DO Apr 01, 2022 20:11
[2022-04-01 20:27] LABS: BILIRUBIN,URINE NEGATIVE (NEGATIVE); CLARITY,URINE CLOUDY; COLOR,URINE YELLOW; GLUCOSE, URINE (UA) NEGATIVE (NEGATIVE); KETONES,URINE NEGATIVE (NEGATIVE); LEUKOCYTE ESTERASE ,URINE 3+ (NEGATIVE); NITRITE,URINE POSITIVE (NEGATIVE); PH,URINE 5.5 (5-9); PROTEIN,URINE 2+ (NEGATIVE)
[2022-04-01 20:48] LABS: BILIRUBIN,TOTAL 0.3 MG/DL (0.1-1.0); CALCIUM 8.4 MG/DL (8.5-10.1); CREATININE SERUM 0.82 MG/DL (0.60-1.30); MAGNESIUM 2.3 MG/DL (1.6-2.4); POTASSIUM 4.6 MMOL/L (3.6-5.0); TOTAL PROTEIN 6.6 GM/DL (6.4-8.2)
[2022-04-01 20:55] LABS: BACTERIA,URINE MODERATE /HPF; RBC,URINE 25-50 /HPF; WBC,URINE TNTC /HPF
[2022-04-01] MEDS ORDERED: CEFEPIME INJECTION 1,000 MG in NS (IVPB) 50 ML IV ONE (21:00)
[2022-04-01] MEDS ORDERED: NS IV 1000 ML 1,000 ML IV SCH (21:00)
--- NOTE | 2022-04-01 21:12 | Diagnostic Imaging Report ---
INDICATION: Cough and seizure. COMPARISON is made with prior exam of 03/16/2022 FINDINGS: There is cardiomegaly. There is moderate central pulmonary venous congestion. There is no pleural effusion or pneumothorax. IMPRESSION: Cardiomegaly and moderate central pulmonary venous congestion. Dictated by: Dictated on workstation # [id number]
[2022-04-01 21:14] LABS: INR 0.9 (0.8-1.4); PROTHROMBIN TIME PATIENT 12.3 SEC (12.2-14.7)
[2022-04-01] MEDS ORDERED: MEROPENEM 1,000 MG in NS (IVPB) 100 ML IV ONE (21:15)
[2022-04-01] MEDS ORDERED: FOSPHENYTOIN 50 MG/ML 2 ML (cereBYX) VIAL IV ONE (21:15)
[2022-04-01 21:22] LABS: CREATINE KINASE MB 6.7 NG/ML (<6.6)
[2022-04-01] MEDS ORDERED: PROPOFOL DRIP (ICU) 100 ML IV SCH (21:45)
[2022-04-01] MEDS ORDERED: FUROSEMIDE 40 MG/4 ML INJ (LASIX) IVP ONE (22:00)
--- NOTE | 2022-04-01 22:04 | Diagnostic Imaging Report ---
INDICATION: Intubation. FINDINGS: The endotracheal tube has its tip at the thoracic inlet. Nasogastric tube is below the diaphragm. There is cardiomegaly. There is venous congestion. There is a right upper lobe infiltrate. IMPRESSION: The endotracheal tube appears to be at the thoracic inlet within the nasogastric tube below the diaphragm. Cardiomegaly and some venous congestion with a right upper lobe infiltrate suspect for pneumonia. Dictated by: Dictated on workstation # [id number]
[2022-04-01 22:43] LABS: ABG BASE EXCESS 0.3 MMOL/L (-2.5-2.5); ABG OXYGEN SATURATION 100 % (94-100); ABG PCO2 37 MMHG (35-45); ABG PH 7.42 (7.37-7.43); ABG PO2 241 MMHG (79-93); ABG TCO2 26.3 MMOL/L (21.0-31.0); ALLENS TEST YES-POS; INSPIRED O2 100%; PATIENT TEMP 33.5; VENTILATOR YES
[2022-04-01] MEDS ORDERED: NOREPINEPHRINE 8 MG/250 ML 250 ML IV SCH (23:00)
[2022-04-02 01:44] VITALS: BP 109/79
== END 2022-04-02 01:55 | disposition short-term general hospital (02) ==
LOC: EDUNIT# 19:27 → ER 19:28
DX: G40.401 Other generalized epilepsy and epileptic syndromes, not intractable, with status epilepticus (principal); A41.9 Sepsis, unspecified organism; J96.00 Acute respiratory failure, unspecified whether with hypoxia or hypercapnia; I50.9 Heart failure, unspecified; J18.9 Pneumonia, unspecified organism; N39.0 Urinary tract infection, site not specified; D64.9 Anemia, unspecified; G14 Postpolio syndrome; I95.9 Hypotension, unspecified; F79 Unspecified intellectual disabilities; R73.9 Hyperglycemia, unspecified; M62.40 Contracture of muscle, unspecified site; Z88.8 Allergy status to other drugs, medicaments and biological substances; Z20.822 Contact with and (suspected) exposure to COVID-19
CPT/HCPCS: 31500; 36415; 71045; 80053; 81000; 82550; 82553; 82805; 83605; 83735; 83874; 83880; 84484; 85025; 85610; 85730; 87040; 87077; 87088; 87636; 93005; 93041; 94002; 99291

== ENCOUNTER 2022-07-03 07:06 | Inpatient (IN) | payer MEDICARE, MEDICAID ==
[~2022-07-03] VITALS: Ht 180 cm; Wt 83.3 kg
[~2022-07-03 07:06] MED LIST changes: -BENZ1TAB6 PO; +BENZ1TAB74 PO; +BENZ2TAB PO; -BENZ2TAB6 PO; +DIPH-1122 PO; -DIPH25CA48 PO
[2022-07-03] MEDS ORDERED: levETIRAcetam 1000 mg/NS 100ml 100 ML IV STA (07:15)
[2022-07-03] MEDS ORDERED: RT-ALBUTEROL/IPRATROPIUM 3 ML (DUONEB) VIAL ONE (07:42)
--- NOTE | 2022-07-03 09:20 | Diagnostic Imaging Report ---
CHEST 1 VIEW, AP/PA ONLY Indication: Shortness of air Comparison: 04/01/2022 Findings: Right basilar heterogeneous consolidations have developed. Retrocardiac opacities are also present in the left lung base. No pleural effusion or pneumothorax. Heart is normal in size. Mediastinal contours are normal. Impression: 1. New bibasilar pulmonary opacities could be due to atelectasis, multifocal pneumonia or aspiration. Dictated by: Dictated on workstation # [id number]
--- NOTE | 2022-07-03 11:04 | ED General ---
General Chief Complaint: Respiratory Problems Stated Complaint: SOA Nursing Triage Note: AR[facility]IVED VIA EMS FROM [facility]. FOUND WITH SHALLOW RESP AND EMS CALLED. FIRE REPORTS A SEIZURE UPON THEIR ARRIVAL. EMS REPORTS A PULSE OX LOW 80'S ON ROOM AIR ET 90'S WITH A NRB. UPON ARRIVAL PT POSTICTAL ET NO RESPONSE WHEN TALKED TO. Source of Information: EMS, Old Records Exam Limitations: Physical Impairments History of Present Illness Date Seen by Provider: July 03, 2022 Time Seen by Provider: 07:08 Initial Comments This 62-year-old gentleman is a patient of [place] who presents to the emergency room via EMS after having a seizure this morning. He is hypoxic with oxygen saturation in the 80s on room air after the seizure. O2 saturations resuscitated to the 90s with a nonrebreather mask. He is quite postictal at th is time. No recent acute illnesses were reported but it is noted in the patient's chart that he started Augmentin yesterday. Patient does have a significant history of prior seizures and admissions to the hospital. He has significant disabilities and has a suprapubic catheter. Fingerstick blood sugar was 73 for EMS. Allergies and Home Medications Allergies Coded Allergies: lorazepam (Verified Adverse Reaction, Intermediate, HYPERACTIVITY, 12/07/21) Patient Home Medication List Home Medication List Reviewed: Yes Acetaminophen (Acetaminophen) 500 Mg Tablet, 500 MG PO Q6H PRN for PAIN-MILD (1- 4) OR TEMPATURE, (Reported) Entered as Reported by: HAROLDO STONE on 06/03/16 1413 Aripiprazole (Aripiprazole) 10 Mg Tablet, 10 MG PO HS, (Reported) Entered as Reported by: MAHENDRA SANTOS on 12/21/21 1542 Bismuth Subsalicylate (Pepto-Bismol) 262 Mg/15 Ml Oral.susp, PO UD PRN for UPSET STOMACH/INDIGESTION, (Reported) Entered as Reported by: SREE MICHELLE on 07/01/17 0852 Buspirone HCl (Buspirone HCl) 5 Mg Tablet, 5 MG PO BID Prescribed by: TOBY BURGOS on 03/25/22 1016 Calamine/Zinc Oxide (Calamine Lotion) 177 Ml Lotion, TP UD PRN for RASH, (Reported) Entered as Reported by: SREE MICHELLE on 07/01/17844 Ciclopirox (Ciclopirox) 8 % Solution, 1 APPLIC TP HS, (Reported) Entered as Reported by: MAHENDRA SANTOS on 12/21/211541 Citalopram Hydrobromide (Citalopram HBr) 40 Mg Tablet, 40 MG PO DAILY, (Reported) Entered as Reported by: MAHENDRA SANTOS on 12/21/211541 Cranberry Extract (Cranberry) 425 Mg Capsule, 425 MG PO BID, (Reported) Entered as Reported by: MAHENDRA SANTOS on 12/21/211541 Fluticasone Propionate (Fluticasone Propionate) 16 Gm [place].susp, 1 SPRAY NS BID, (Reported) Entered as Reported by: SREE MICHELLE on 07/01/17844 Guaifenesin/D-Methorphan Hb/PE (Robitussin Cough-Cold Cf Liq) 118 Ml Liquid, PO UD PRN for COUGH/CONGESTION, (Reported) Entered as Reported by: SREE MICHELLE on 07/01/17851 Hydrocortisone (Hydrocortisone) 1 % Cream..g., 1 APPLIC TP UD PRN for RASH AND ITCHING, (Reported) Entered as Reported by: MAHENDRA SANTOS on 12/21/211541 Ketoconazole (Ketoconazole) 2 % Shampoo, 1 APPLIC TOP TWICE WEEKLY, (Reported) Entered as Reported by: MAHENDRA SANTOS on 12/21/211541 L. Rhamnosus GG/Inulin (Culturelle Capsule) 10 Billion Cell-200 Mg Cap.sprink, 1 CAP PO DAILY, (Reported) Entered as Reported by: SREE MICHELLE on 07/01/17844 Loratadine (Loratadine) 10 Mg Tablet, 10 MG PO HS, (Reported) Entered as Reported by: SREE MICHELLE on 07/01/17844 Menthol (Gold Rosario Medicated Body) 0.8 % Powder, 1 APPLIC TP UD PRN for FOOT ODOR AND WETNESS, (Reported) Entered as Reported by: MAHENDRA SANTOS on 12/21/211541 Metronidazole (Metronidazole) 0.75 % Lotion, 1 APPLIC TOP HS PRN for SKIN IRRITATION, (Reported) Entered as Reported by: MAHENDRA SANTOS on 10/21/22 1542 Mirtazapine (Mirtazapine) 15 Mg Tablet, 15 MG PO HS, (Reported) Entered as Reported by: MAHENDRA SANTOS on 12/21/21 1542 Naphazoline HCl/Pheniramine (Opcon-A Eye Drops) 0.56685 %-0.315 % Drops, 1-2 DROPS OU UD PRN for REDNESS/SWELLING FROM ALLERGY, (Reported) Entered as Reported by: SREE MICHELLE on 07/01/17 0852 Neomycin Dinh/Bacitrac Zn/Poly (Gnp Triple Antibiotic Ointment) 28.4 Gm Oint...g., TP UD PRN for MINOR CUTS, SCRAPES, AND SORES, (Reported) Entered as Reported by: SREE MICHELLE on 07/01/17 0852 Nystatin (Nystatin) 100,000 Unit/Gram Cream..g., 1 APPLIC TOP BID PRN for SCALING RASH, (Reported) Entered as Reported by: MAHENDRA SANTOS on 12/21/21 1542 Omeprazole (Omeprazole) 40 Mg Capsule.dr, 40 MG PO DAILY, (Reported) Entered as Reported by: MAHENDRA SANTOS on 03/18/22 1143 Pnv with Ca,No.72/Iron/FA ( Plus Tablet) 27 Mg Iron-1 Mg Tablet, 1 EA PO DAILY, (Reported) Entered as Reported by: MAHENDRA SANTOS on 12/21/21 1542 Polyethylene Glycol 3350 (Polyethylene Glycol 3350) 17 Gm Powd.pack, 17 GM PO BID, (Reported) Entered as Reported by: IRASEMA HUMPHREY on 09/28/18 1428 Pregabalin (Pregabalin) 50 Mg Capsule, 50 MG PO DAILY, (Reported) Entered as Reported by: JUANITA VILLAGRAN on 03/16/22 1644 Sennosides/Docusate Sodium (Stimulant Laxative Plus Tablet) 8.6 Mg-50 Mg Tablet, 2 EA PO BID, (Reported) Entered as Reported by: MAHENDRA SANTOS on 12/21/21 1542 Simethicone (Simethicone) 80 Mg Tab.chew, 80 MG PO PCHS Prescribed by: TOBY BURGOS on 03/25/22 1016 [place] (Tucks) 50 % Med..pad, 1 EACH TP QID PRN for HEMMORRHOID DISCOMFORT, (Reported) Entered as Reported by: MAHENDRA SANTOS on 01/08/22 1133 [LevETIRAcetam ORAL SOLUTION] 100 MG/ML SOLN, 1,000 MG PO BID Prescribed by: TOBY BURGOS on 03/25/22 1016 Review of Systems Review of Systems EENTM: no symptoms reported Respiratory: see HPI Cardiovascular: no symptoms reported Gastrointestinal: no symptoms reported Genitourinary: see HPI Musculoskeletal: no symptoms reported Skin: no symptoms reported Psychiatric/Neurological: See HPI Hematologic/Lymphatic: No Symptoms Reported Past Zojqtez-Nqqfmj-Pozjgv Hx Patient Social History Smokeless Tobacco Frequency: Unknown if Ever Used Use of E-Cig and/or Vaping [place]: Unknown if Ever Used Alcohol Use?: Unable to obtain Immunizations Up To Date Tetanus Booster (TDap): Less than 5yrs PED Vaccines UTD: No Seasonal Allergies Seasonal Allergies: Yes Past Medical History Surgery/Hospitalization HX: PMH: MOOD DISORDER, DEPRESSION, SLEEP DISORDER, SEIZURES, CHILDHOOD POLIO, [facility] [employer] MEASLES, MR, CONSTIPATION, CHF Surgeries: Yes Eye Surgery, Gallbladder, Orthopedic Respiratory: No Currently Using CPAP: No Currently Using BIPAP: No Neurological: Yes (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;MR; PO ST POLIO) Developmental Disorder, Seizure Disorder Sexually Transmitted Disease: No HIV/AIDS: No Genitourinary: Yes Prostate Problems, UTI-Chronic Gastrointestinal: Yes (S/P MATILDE) Chronic Constipation, Chronic Diarrhea, Gall Bladder Disease Musculoskeletal: Yes (CONTRACTURES OF HANDS AND FEET; NON-AMBULATORY) Fractures, Contracture Endocrine: No HEENT: No Loss of Vision: Denies Hearing Impairment: Denies Cancer: No Psychosocial: Yes (MR, SEVERE ADAPTIVE BEHAVIOR DISORDER, CONVULSIONS, DELUSIONAL DISORDER) Anxiety Integumentary: No Blood Disorders: Yes (ANEMIA) Adverse Reaction/Blood Tranf: No Family Medical History PAST SURGICAL HISTORY: -SURGERY ON ALL LEFT TOES -EGD'S/COLONSCOPIES -RIGHT FEMUR FX/ORIF -PROSTATE SURGERY ADDITIONAL PMH: -POST POLIO SYNDROME WITH LEFT SIDED CONTRACTURES, 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--PT IS NON-AMBULATORY -RIGHT FEMUR FX/ORIF WITH 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 OF HIP -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, MINIMAL VERBAL SKILLS -SEVERE ADAPTIVE BEHAVIOR DISORDER -DELUSIONAL DISORDER -CHRONIC INDWELLING SUPRAPUBIC CATHETER FOR BLADDER OUTLET OBSTRUCTION Physical Exam-Suspected Sepsis Physical Exam Vital Signs Vital Signs - First Documented 07/03/22 07/03/22 07/03/22 07:06 07:36 11:56 Temp 35.2 Pulse 105 Resp 16 B/P (MAP) 102/96 (98) Pulse Ox 89 O2 Delivery Non Rebreather O2 Flow Rate 15.00 FiO2 100 Capillary Refill : Less Than 3 Seconds Blood Pressure Mean: 98 Height, Weight, BMI Height: 5'9.00" Weight: 180lbs. 1.0oz. 81.245119tz; 24.00 BMI Method:Stated Focused Exam Lactate Level 07/03/22 07:32: Procedures/Interventions Date of ETT Placement: Apr 01, 2022 Time of ETT Placement: 2126 Progress/Results/Core Measures Suspected Sepsis SIRS Temperature: Pulse: 105 Respiratory Rate: 16 Laboratory Tests 07/03/22 07:12: White Blood Count 8.0 Blood Pressure 102 /96 Mean: 98 07/03/22 07:32: Laboratory Tests 07/03/22 07:12: Platelet Count 108L 07/03/22 07:32: Creatinine 0.89, INR Comment 1.0, Total Bilirubin 0.4 Results/Orders Lab Results Laboratory Tests Test 07/03/22 07:12 07/03/22 07:32 07/03/22 11:35 Range/Units White Blood Count 8.0 4.3-11.0 10^3/uL Red Blood Count 3.93 L 4.30-5.52 10^6/uL Hemoglobin 12.6 L 13.3-17.7 g/dL Hematocrit 37 L 40-54 % Mean Corpuscular Volume 95 80-99 fL Mean Corpuscular Hemoglobin 32 25-34 pg Mean Corpuscular Hemoglobin Concent 34 32-36 g/dL Red Cell Distribution Width 15.9 H 10.0-14.5 % Platelet Count 108 L 130-400 10^3/uL Mean Platelet Volume 11.5 9.0-12.2 fL Immature Granulocyte % (Auto) 0 % Neutrophils (%) (Auto) 94 H 42-75 % Lymphocytes (%) (Auto) 4 L 12-44 % Monocytes (%) (Auto) 2 0-12 % Eosinophils (%) (Auto) 0 0-10 % Basophils (%) (Auto) 0 0-10 % Neutrophils # (Auto) 7.6 1.8-7.8 10^3/uL Lymphocytes # (Auto) 0.3 L 1.0-4.0 10^3/uL Monocytes # (Auto) 0.1 0.0-1.0 10^3/uL Eosinophils # (Auto) 0.0 0.0-0.3 10^3/uL Basophils # (Auto) 0.0 0.0-0.1 10^3/uL Immature Granulocyte # (Auto) 0.0 0.0-0.1 10^3/uL Neutrophils % (Manual) 71 % Lymphocytes % (Manual) 2 % Monocytes % (Manual) 2 % Metamyelocytes % 4 % Band Neutrophils 21 % Toxic Granulation 1+ Percent Immature Platelet Fraction 7.7 H 0.0-7.6 % Anisocytosis SLIGHT Glucometer 82 70-110 MG/DL Prothrombin Time 13.8 12.2-14.7 SEC INR Comment 1.0 0.8-1.4 Activated Partial Thromboplast Time 49 H 24-35 SEC D-Dimer 2.25 H 0.00-0.49 UG/ML Sodium Level 144 135-145 MMOL/L Potassium Level 4.3 3.6-5.0 MMOL/L Chloride Level 107 98-107 MMOL/L Carbon Dioxide Level 26 21-32 MMOL/L Anion Gap 11 5-14 MMOL/L Blood Urea Nitrogen 23 H 7-18 MG/DL Creatinine 0.89 0.60-1.30 MG/DL Estimat Glomerular Filtration Rate 98 BUN/Creatinine Ratio 26 Glucose Level 83 70-105 MG/DL Calcium Level 8.9 8.5-10.1 MG/DL Corrected Calcium 9.5 8.5-10.1 MG/DL Magnesium Level 1.7 1.6-2.4 MG/DL Total Bilirubin 0.4 0.1-1.0 MG/DL Aspartate Amino Transf (AST/SGOT) 51 H 5-34 U/L Alanine Aminotransferase (ALT/SGPT) 54 0-55 U/L Alkaline Phosphatase 368 H 40-136 U/L C-Reactive Protein High Sensitivity 12.93 H 0.00-0.50 MG/DL B-Type Natriuretic Peptide 137.4 H <100.0 PG/ML Total Protein 6.5 6.4-8.2 GM/DL Albumin 3.3 3.2-4.5 GM/DL Urine Color YELLOW Urine Clarity CLEAR Urine pH 5.5 5-9 Urine Specific [place] 1.025 H 1.016-1.022 Urine Protein TRACE H NEGATIVE Urine Glucose (UA) NEGATIVE NEGATIVE Urine Ketones NEGATIVE NEGATIVE Urine Nitrite POSITIVE H NEGATIVE Urine Bilirubin NEGATIVE NEGATIVE Urine Urobilinogen 0.2 < = 1.0 MG/DL Urine Leukocyte Esterase 2+ H NEGATIVE Urine RBC (Auto) TRACE-I H NEGATIVE Urine RBC 0-2 /HPF Urine WBC 50-100 H /HPF Urine Squamous Epithelial Cells RARE /HPF Urine Crystals NONE /LPF Urine Bacteria MODERATE H /HPF Urine Casts NONE /LPF Urine Mucus NEGATIVE /LPF Urine Culture Indicated YES My Orders Orders - CARMEN PAVON MD [facility] [place] (07/03/22 07:12) Cbc With Automated Diff (07/03/22 07:12) Comprehensive Metabolic Panel (07/03/22 07:12) Hs C Reactive Protein (07/03/22 07:12) Magnesium (07/03/22 07:12) Ua Culture If Indicated (07/03/22 07:12) Accucheck Stat ONCE (07/03/22 07:12) Chest 1 View, Ap/Pa Only (07/03/22 07:15) Levetiracetam 1000 Mg/Ns 100ml (Keppra I (07/03/22 07:15) Levetiracetam Injection (Keppra Injectio (07/03/22 07:15) Albuterol/Ipra Inhalation Soln (Duoneb I (07/03/22 07:42) Fibrin Degradation Products (07/03/22 11:09) Manual Differential (07/03/22 07:12) Urine Culture (07/03/22 11:35) Blood Culture (07/03/22 12:01) Sputum Culture (07/03/22 12:01) Protime With Inr (07/03/22 12:01) Partial Thromboplastin Time (07/03/22 12:01) Vital Signs Adult Sepsis Patie Q15M (07/03/22 12:01) O2 (07/03/22 12:01) Remove Rings In Anticipation O (07/03/22 12:01) Lactic Acid Analyzer (07/03/22 12:01) Ceftriaxone Iv/Im (Rocephin Iv/Im) (07/03/22 12:01) Ct Angio Chest W (R/O Pe) (07/03/22 12:01) Iohexol Injection (Omnipaque 350 Mg/Ml 1 (07/03/22 12:15) Received Contrast (Hold Metformin- Contr (07/03/22 12:15) Ns (Ivpb) (Sodium Chloride 0.9% Ivpb Bag (07/03/22 12:15) Lactated Ringers (Lr 1000 Ml Iv Solution (07/03/22 12:15) Medications Given in ED Current Medications Medications Dose Ordered Sig/Ewelina Route Start Time Stop Time Status Last Admin Dose Admin Albuterol/ Ipratropium 3 ml STK-MED ONCE .ROUTE 07/03/22 07:42 07/03/22 09:05 DC 07/03/22 07:36 3 ML Lactated Ringer's 1,000 ml @ 0 mls/hr Q0M ONCE IV 07/03/22 12:15 07/03/22 12:16 DC 07/03/22 12:39 0 MLS/HR Vital Signs/I&O 07/03/22 07/03/22 07/03/22 07:06 07:36 11:56 Temp 35.2 Pulse 105 Resp 16 B/P (MAP) 102/96 (98) Pulse Ox 89 85 97 O2 Delivery Non Rebreather Non Rebreather Vapotherm O2 Flow Rate 15.00 40.00 FiO2 100 Capillary Refill : Less Than 3 Seconds Blood Pressure Mean: 98 Point of Care Testing Finger Stick Blood Glucose: 82 Blood Glucose Action Taken: RN notified Progress Note : Time: 12:48 Departure Communication (Admissions) Time/Spoke to Admitting Phy: 12:07 Dr. Noe Impression Primary Impression: Acute respiratory failure Qualified Codes: J96.01 - Acute respiratory failure with hypoxia Additional Impressions: Sepsis Qualified Codes: A41.9 - Sepsis, unspecified organism Urinary tract infection Qualified Codes: N39.0 - Urinary tract infection, site not specified Seizure Elevated d-dimer Disposition: ADMITTED INPATIENT Condition: Improved Admissions Decision to Admit Reason: Admit from ER (General) Decision to Admit/Date: July 03, 2022 Time/Decision to Admit Time: 12:07 Departure-Patient Inst. Referrals: SETH NOE DO (PCP/Family) Primary Care Physician CARMEN PAVON MD July 03, 2022 11:04
[2022-07-03 11:24] LABS: ALBUMIN 3.3 GM/DL (3.2-4.5); BILIRUBIN,TOTAL 0.4 MG/DL (0.1-1.0); CALCIUM 8.9 MG/DL (8.5-10.1); CREATININE SERUM 0.89 MG/DL (0.60-1.30); MAGNESIUM 1.7 MG/DL (1.6-2.4); POTASSIUM 4.3 MMOL/L (3.6-5.0); TOTAL PROTEIN 6.5 GM/DL (6.4-8.2)
[2022-07-03 11:39] LABS: BAND NEUTROPHILS 21 %; BASOPHILS % (AUTO) 0 % (0-10); EOSINOPHILS % (AUTO) 0 % (0-10); HEMATOCRIT 37 % (40-54); HEMOGLOBIN 12.6 g/dL (13.3-17.7); LYMPHOCYTES # (AUTO) 0.3 10^3/uL (1.0-4.0); LYMPHOCYTES % (AUTO) 4 % (12-44); LYMPHOCYTES % (MANUAL) 2 %; MEAN CORPUSCULAR HEMOGLOBIN 32 pg (25-34); MEAN CORPUSCULAR HGB CONC 34 g/dL (32-36); MEAN CORPUSCULAR VOLUME 95 fL (80-99); MEAN PLATELET VOLUME 11.5 fL (9.0-12.2); METAMYELOCYTES % 4 %; MONOCYTES # (AUTO) 0.1 10^3/uL (0.0-1.0); MONOCYTES % (AUTO) 2 % (0-12); MONOCYTES % (MANUAL) 2 %; NEUTROPHILS # (AUTO) 7.6 10^3/uL (1.8-7.8); NEUTROPHILS % (AUTO) 94 % (42-75); NEUTROPHILS % (MANUAL) 71 %; PLATELET COUNT 108 10^3/uL (130-400)
[2022-07-03 11:40] LABS: ANISOCYTOSIS SLIGHT; TOXIC GRANULATION/VACUOLAZATIO 1+
[2022-07-03 11:50] LABS: BILIRUBIN,URINE NEGATIVE (NEGATIVE); CLARITY,URINE CLEAR; COLOR,URINE YELLOW; GLUCOSE, URINE (UA) NEGATIVE (NEGATIVE); KETONES,URINE NEGATIVE (NEGATIVE); LEUKOCYTE ESTERASE ,URINE 2+ (NEGATIVE); NITRITE,URINE POSITIVE (NEGATIVE); PH,URINE 5.5 (5-9); PROTEIN,URINE TRACE (NEGATIVE)
[2022-07-03 11:54] LABS: BACTERIA,URINE MODERATE /HPF; RBC,URINE 0-2 /HPF; SQUAMOUS EPITHELIAL CELL,UR RARE /HPF; WBC,URINE 50-100 /HPF
[2022-07-03] MEDS ORDERED: cefTRIAXone IV/IM 1,000 MG in NS (IVPB) 50 ML IV STA (12:01)
[2022-07-03] MEDS ORDERED: IOHEXOL 350 MG/ML 100 ML (OMNIPAQUE 350) VIAL IV ONE (12:15)
[2022-07-03] MEDS ORDERED: HOLD METFORMIN - RECEIVED CONTRAST 20 ML VIAL IV SCH (12:15)
[2022-07-03] MEDS ORDERED: LACTATED RINGERS 1,000 ML IV ONE (12:15)
[2022-07-03] MEDS ORDERED: NS 100 ML (IVPB) BAG IV ONE (12:15)
[2022-07-03 12:22] LABS: PROTHROMBIN TIME PATIENT 13.8 SEC (12.2-14.7)
--- OUTSIDE RECORDS SUMMARY | 2022-07-03 13:14 | XMS REPORT ---
Author Author [facility] Address Unknown Phone Unavailable Care Team Providers Care Sisal Picker Name Role Phone DEB AVILEZ Unavailable PROBLEMS Type Condition ICD9-CM Code [id number] Code Onset Dates Condition S tatus W/U Status Risk SNOMED Code Notes Problem Mood disorder F39 confirmed [id number] Problem Neurocognitive disorder, unspecified F99 confirmed [id number] Problem Delusional disorders F22 confirmed [id number] Problem Severe intellectual disability F72 confir med [id number] Problem Intellectual disability F79 confirmed [id number] ALLERGIES Allergen (clinical drug ingredient) Drug/Non Drug Allergy do cumented on EMR Reaction Allergy Type Onset Date Status lorazepam Ativan([facility] Code:[address]-56) "hyper" Drug Allergy Active ENCOUNTERS from 1962 to 2022-06-26 Encounter Location Date Provider Diagnosis [facility] [address] [facility] [id number], [place] [address] July, DEB AVILEZ IMMUNIZATIONS Vaccine Route Administration Date Status PRIVATE HEP B (PEDS/ADOLESCENT, 3-DOSE) IM Intramuscular Jan Administered PRIVATE HEP B (ADULT) IM Intramuscular Jan 23, 2015 Administ ered PRIVATE PCV 13 (PREVNAR) IM Intramuscular Jan 23, 2015 Admin istered PRIVATE HEP B (ADULT) IM Intramuscular July 24, 2015 Administe red PRIVATE HEP B (ADULT) IM Intramuscular Mar 13, 2015 Administ ered SOCIAL HISTORY Sex Assigned At : Social History Observation Description Sex Assigned At Unknown Alcohol Screen (Audit-C) Question Answer Notes Did you have a drink containing alcohol in the past year? No Points 0 Interpretation Negative Drug and Alcohol (Do not use) Question Answer Notes Total Score: 0 Interpretation: No problems reported REASON FOR REFERRAL No Information VITAL SIGNS No information MEDICATIONS Medication SIG (Take, Route, Frequency, Duration) Notes Start Da te End Date Status Magic Mouthwash Dip cotton swab into medicat ion Apply medicated swab to sore areas of the mouth to numb the pain As needed for 7 days Dec, Active PrePLUS 27-1 MG 1 tablet Orally Once a day for 30 day(s) Active Vitamin C 500 MG 1 tablet Orally Once a day Active Acetaminophen 500 mg 1 Tablet by Oral route q4hrs prn pain PRN Nov, Active Calamine Externally PRN Active Senna Plus 8.6-50 MG 2 capsules Orally twice a day Active Cranberry 425 MG [address] Wali Aviles tinavin Triple Antibiotic 5-400-5000 1 application to affected area Externally Once a day PRN Active Mirtazapine 15 MG TAKE 1 TABLET BY MOUTH DAILY AT BEDTIME for 31 Active Opcon-A 0.61054-6.315 % 1-2 drop by opthalmac route prn redness and swelling of eyes from allergies PRN Nov, Active Gold Rosario Foot Powder Max St Externally PRN Active Amoxicillin 500 MG 1 capsule Orally Twice a day for 10 day(s) Dec, Active Senexon-S 8.6-50 MG 2 tablets Orally twice a day for constipation Active Culturelle by oral route po qd prn for healthy BMs PRN Apr, Active Pepto-Bismol 262 MG 2 tablets as needed Orally 8 time(s) a day PRN Active Robitussin Cough/Cold CF Active Pregabalin 50 MG 1 capsule Orally Twice a day Active Hydrocortisone 1 % 1 application Externally Once a day Active Polyethylene Glycol 3350 17 gram 2 times per day Apr, 015 Active fluticasone 50 mcg/actuation 2 Nasal [place] by Nasal route 1 time per day qHS Apr, Active Loratadine 10 mg 1 Tablet by Oral route 1 time per day Nov, Active Ketoconazole 2 % Externally 1x a week Active Citalopram Hydrobromide 40 MG TAKE ONE TABLET BY MOUTH ONCE DAILY for 31 Active ARIPiprazole 10 MG TAKE 1 TABLET BY MOUTH DAILY AT BEDTIME for 31 Active Lyrica 25 MG 1 capsule Orally Once a day in the AM Active PROCEDURES No Information RESULTS No Results REASON FOR VISIT Refill MEDICAL (GENERAL) HISTORY Type Description Date Medical History Severe ID Medical History Convulsions Medical History Post-Polio Syndrome Medical History Mood DO Medical History Cerebral Palsy Medical History shingles Surgical History super pubic catheter 2019 Hospitalization History [facility]- Weak, Unaware and d iarrhea 05/01/2017 Goals Section No Information Health Concerns No Information MEDICAL EQUIPMENT No Information MENTAL STATUS No Information FUNCTIONAL STATUS No Information ASSESSMENTS No Information PLAN OF TREATMENT Medication Medication Name Sig Start Date Stop Date Citalopram Hydrobromide 40 MG TAKE ONE TABLET BY MOUTH ONCE CAPRICE Y for 31 ARIPiprazole 10 MG TAKE 1 TABLET BY MOUTH DAILY AT BEDTIME for 3 1 Amoxicillin 500 MG 1 capsule Orally Twice a day for 10 day(s) Dec, Mirtazapine 15 MG TAKE 1 TABLET BY MOUTH DAILY AT BEDTIME for 31 Magic Mouthwash Dip cotton swab into medicat ion Apply medicated swab to sore areas of the mouth to numb the pain As needed for 7 days Dec, Insurance Providers Payer Name Payer Address Payer Phone Insured Name Patient Relati onship to Insured Coverage Start Date Coverage End Date Subscriber Number Group Nu mber [employer] [facility] [address] [address] [facility] [phone] Steve Diez Self - patient is the insured [id number] [employer] MEDICARE Part A [address] [facility] [phone] Steve Diez Self - patient is the insured [id number]
--- OUTSIDE RECORDS SUMMARY | 2022-07-03 13:14 | XMS REPORT | Clinical Summary ---
Author Author [facility] Organization [facility] Address Unknown Phone Unavailable Care Team Providers Care Drywall Stripper Helper Name Role Phone Tish Noe MD PCP Source Comments Some departments are not documenting in the electronic medical record. If you d o not see the information that you expected, contact Release of Information in [facility] [employer] Information Management department at [phone] for further assistan ce in locating additional records.[facility] Allergies Comments Active Allergy Reactions Severity Noted Date Hyperactivity Lorazepam SEE COMMENTS Low 04/02/2022 Seasonal Allergies UNKNOWN Low 04/02/2022 Medications End Date Status Medication Sig Dispensed Refills Start Date Active ARIPiprazole (ABILIFY) 10 Take 10 mg by 0 mg tablet mouth at bedtime daily. Active busPIRone (BUSPAR) 5 mg Take 5 mg by 0 tablet mouth twice daily. Active ciclopirox (PENLAC) 8 % Apply 0 topical solution topically to affected area at bedtime daily. Apply to affected toenails every night or 8 hours before washing. Active citalopram (CELEXA) 40 mg Take 40 mg by 0 tablet mouth daily. Active Cranberry Extract 425 mg Take 1 0 cap capsule by mouth twice daily. Active lactobacillus rhamnosus Take 1 0 (GG) (CULTURELLE) 10 capsule by billion cell capsule mouth daily. Active fluticasone propionate Apply 1 spray 0 (FLONASE) 50 to each mcg/actuation nasal nostril as spray, suspension directed twice daily. Shake bottle gently before using. Active ketoconazole (NIZORAL) 2 Apply 0 % topical shampoo topically to affected area once. Apply to face twice pre week. Sundays and Wednesdays. Active loratadine (CLARITIN) 10 Take 10 mg by 0 mg tablet mouth every morning. Active metroNIDAZOLE Apply 0 (METROLOTION) 0.75 % lotn topically to affected area. Apply topically every evening to face. Active mirtazapine (REMERON) 15 Take 15 mg by 0 mg tablet mouth at bedtime daily. Active omeprazole DR (PRILOSEC) Take 40 mg by 0 40 mg capsule mouth daily before breakfast. Active polyethylene glycol 3350 Take 17 g by 0 (MIRALAX) 17 g packet mouth daily. Drink 17 grams mixed into 8 ozs of juice or water twice a day. Active pregabalin (LYRICA) 50 mg Take 50 mg by 0 capsule mouth daily. Active senna/docusate Take 2 0 (SENOKOT-S) 8.6/50 mg tablets by tablet mouth twice daily. Active simethicone (MYLICON) 80 Chew 80 mg by 0 mg chew tablet mouth every 6 hours as needed for Flatulence. After each meal and at bedtime. Active vitamins, w/iron Take 1 tablet 0 & folate 27-1 mg tablet by mouth daily. Active acetaminophen (TYLENOL Take 500 mg 0 EXTRA STRENGTH) 500 mg by mouth tablet every 6 hours as needed for Pain. Max of 4,000 mg of acetaminophen in 24 hours. Active calamine lotn topical Apply 0 lotion topically to affected area as Needed. Use as directed for rash. Active diphenhydrAMINE HCL Take 25 mg by 0 (BENADRYL) 25 mg capsule mouth every 6 hours as needed. Active neomycin/bacitracin/polym Apply 0 yxinB (NEOSPORIN) topically to 3.5-400-5,000 affected area [id number]-[id number]-vhleg/g topical twice daily. ointment Use as directed for minor cuts, scrapes and sores as needed. Active Menthol (MEDICATED FOOT Apply 0 POWDER(MENTHOL)) 1 % powd topically to affected area. Use as directed for foot odor and wetness. Active hydrocortisone Apply 0 (CORTIZONE-10) 1 % topically to topical cream affected area. Use as directed for rash and itching as needed. Active nystatin (MYCOSTATIN) Apply 0 100,000 unit/g topical topically to cream affected area twice daily. Apply topically twice a day to lateral foot josie for two weeks and as need for scaling rash. Active Naphazoline-Pheniramine Place into 0 (OPCON-A) 0.02983-6.315 % or around drop eye(s). Instill 2 drops in each eye as needed. Active bismuth subsalicylate Use as 0 (PEPTO-BISMOL) 262 mg directed for chewable tablet upset stomach and indigestion as needed. Active guaifenesin/DM/pseudoephe Take by 0 drine (ROBITUSSIN-CF PO) mouth. Use as directed pre package as needed for cough and congestion. Active Witch Cornelia 50 % padm Apply 0 topically to affected area. Apply four times a day as needed as directed. Active levETIRAcetam (KEPPRA) Take 15 mL by 473 mL 3 0 100 mg/mL oral solution mouth twice 3 daily. Take 15 mL (1500 mg) by mouth twice a day. Active Problems Problem Noted Date Seizure disorder 04/11/2022 Mood disorder 04/02/2022 Developmental delay 04/02/2022 Chronic heart failure 04/02/2022 GERD (gastroesophageal reflux disease) 04/02/2022 Bladder outlet obstruction 04/02/2022 Suprapubic catheter 04/02/2022 Resolved Problems Problem Noted Date Resolved Date Seizure 04/02/2022 04/11/2022 Severe sepsis 04/02/2022 04/08/2022 Acute respiratory failure with hypoxia 04/02/2022 04/08/2022 Urinary tract infection associated with cystostomy catheter 04/02/2022 04/11/2022 Shock 04/02/2022 04/08/2022 Encounters Care Team Description Date Type Specialty Herberth Smallwood DO Sharpe, Matthew R, MD Thomas, Laura A, MD Mood disorder (HCC) 04/02/2022 Hospital Intensive Care - Encounter 04/11/2022 from Last 3 Months Medical History Medical History Date Comments Mood disorder (HCC) Depression Sleep disorder Seizures (HCC) History of poliomyelitis Heart failure (HCC) Post-polio syndrome UTI (urinary tract infection) Developmental delay Bladder outlet obstruction Suprapubic catheter ([facility]) Social History Date Tobacco Use Types Packs/Day Years Used Smoking Tobacco: Never Assessed Sex Assigned at Date Recorded Male 04/05/2022 9:48 AM [employer]OTHERM[employer] POWERPLANT MECHANIC HELPER Obstetrics History Last Filed Vital Signs Reading Time Taken Comments Vital Sign 98/72 04/11/2022 12:19 PM [employer]OTHER[employer] POWERPLANT MECHANIC HELPER Blood Pressure 79 04/11/2022 8:00 AM GEOTHERMAL POWERPLANT MECHANIC HELPER Pulse 37 C (98.6 F) 04/11/2022 8:00 AM [employer]OTHERM[employer] POWERPLANT MECHANIC HELPER Temperature - - Respiratory Rate 97% 04/11/2022 12:19 PM [employer]OTHERM[employer] POWERPLANT MECHANIC HELPER Oxygen Saturation - - Inhaled Oxygen Concentration 81.7 kg (180 lb 1.9 oz) 04/07/2022 1:00 AM [employer]OTHER[employer] POWERPLANT MECHANIC HELPER Weight 167.6 cm (5' 6") 04/02/2022 3:16 AM GEOTHERMAL POWERPLANT MECHANIC HELPER estimate Height 29.07 04/02/2022 3:16 AM [employer]OTHER[employer] POWERPLANT MECHANIC HELPER Body Mass Index Plan of Treatment Health Maintenance Due Date Last Done Comments MEDICARE ANNUAL WELLNESS 1960 VISIT COVID-19 VACCINE (#1) 1962 PNEUMOCOCCAL VACCINE 0-64 1968 01/23/2015 YRS (1 - PCV) HIV SCREENING 1977 HEPATITIS C SCREENING 1980 PHYSICAL (COMPREHENSIVE) 1980 EXAM COLORECTAL CANCER 05/22/2007 SCREENING SHINGLES RECOMBINANT 2012 VACCINE (1 of 2) DEPRESSION SCREENING 03/03/2022 DTAP/TDAP VACCINES (2 - 09/17/2024 09/17/2014 Td or Tdap) INFLUENZA VACCINE Completed 12/24/2021 Procedures Comments Procedure Name Priority Date/Time Associated Diag nosis HC CBC,AUTOMATED Routine 04/11/2022 2:30 AM GEOTHERMAL POWERPLANT MECHANIC HELPER HC COMPREHENSIVE Routine 04/11/2022 METABOLIC PANEL 2:30 AM GEOTHERM[employer] POWERPLANT MECHANIC HELPER HC PHOSPHOROUS, SERUM Routine 04/11/2022 (PO4CT) 2:30 AM GEOTHERMAL POWERPLANT MECHANIC HELPER HC MAGNESIUM (MGCT) Routine 04/11/2022 2:30 AM GEOTHERMAL POWERPLANT MECHANIC HELPER SWALLOW MOTION SERIES Routine 04/10/2022 10:44 AM GEOTHERMAL POWERPLANT MECHANIC HELPER HC COMPREHENSIVE Routine 04/10/2022 METABOLIC PANEL 3:46 AM GEOTHERMAL POWERPLANT MECHANIC HELPER HC CBC W/ AUTOMATED DIFF Routine 04/10/2022 3:46 AM GEOTHERMAL POWERPLANT MECHANIC HELPER HC PHOSPHOROUS, SERUM Routine 04/10/2022 (PO4CT) 3:46 AM GEOTHERMAL POWERPLANT MECHANIC HELPER HC MAGNESIUM (MGCT) Routine 04/10/2022 3:46 AM GEOTHERMAL POWERPLANT MECHANIC HELPER HC COMPREHENSIVE Routine 04/09/2022 METABOLIC PANEL 2:43 AM GEOTHERMAL POWERPLANT MECHANIC HELPER HC CBC W/ AUTOMATED DIFF Routine 04/09/2022 2:43 AM GEOTHERMAL POWERPLANT MECHANIC HELPER HC PHOSPHOROUS, SERUM Routine 04/09/2022 (PO4CT) 2:43 AM GEOTHERMAL POWERPLANT MECHANIC HELPER HC MAGNESIUM (MGCT) Routine 04/09/2022 2:43 AM GEOTHERMAL POWERPLANT MECHANIC HELPER HC COMPREHENSIVE Routine 04/08/2022 METABOLIC PANEL 2:06 AM GEOTHERMAL POWERPLANT MECHANIC HELPER HC CBC W/ AUTOMATED DIFF Routine 04/08/2022 2:06 AM GEOTHERMAL POWERPLANT MECHANIC HELPER HC PHOSPHOROUS, SERUM Routine 04/08/2022 (PO4CT) 2:06 AM GEOTHERMAL POWERPLANT MECHANIC HELPER HC MAGNESIUM (MGCT) Routine 04/08/2022 2:06 AM GEOTHERMAL POWERPLANT MECHANIC HELPER HC COMPREHENSIVE Routine 04/07/2022 METABOLIC PANEL 1:56 AM GEOTHERMAL POWERPLANT MECHANIC HELPER HC CBC W/ AUTOMATED DIFF Routine 04/07/2022 1:56 AM GEOTHERMAL POWERPLANT MECHANIC HELPER HC PHOSPHOROUS, SERUM Routine 04/07/2022 (PO4CT) 1:56 AM GEOTHERMAL POWERPLANT MECHANIC HELPER HC MAGNESIUM (MGCT) Routine 04/07/2022 1:56 AM GEOTHERMAL POWERPLANT MECHANIC HELPER FEEDING TUBE PLCMNT Routine 04/06/2022 (ABD/CHEST LMTD) 2:01 PM GEOTHERMAL POWERPLANT MECHANIC HELPER HC COMPREHENSIVE Routine 04/06/2022 METABOLIC PANEL 2:10 AM GEOTHERMAL POWERPLANT MECHANIC HELPER HC CBC W/ AUTOMATED DIFF Routine 04/06/2022 2:10 AM GEOTHERMAL POWERPLANT MECHANIC HELPER HC BLOOD Routine 04/06/2022 GASES;(CALCULATED 02) 2:10 AM GEOTHERMAL POWERPLANT MECHANIC HELPER HC PHOSPHOROUS, SERUM Routine 04/06/2022 (PO4CT) 2:10 AM GEOTHERMAL POWERPLANT MECHANIC HELPER HC MAGNESIUM (MGCT) Routine 04/06/2022 2:10 AM GEOTHERMAL POWERPLANT MECHANIC HELPER HC BLOOD Routine 04/05/2022 GASES;(CALCULATED 02) 10:56 AM GEOTHERMAL POWERPLANT MECHANIC HELPER POC GLUCOSE 04/05/2022 3:04 AM GEOTHERMAL POWERPLANT MECHANIC HELPER HC BLOOD Routine 04/05/2022 GASES;(CALCULATED 02) 3:03 AM GEOTHERMAL POWERPLANT MECHANIC HELPER HC PHOSPHOROUS, SERUM Routine 04/05/2022 (PO4CT) 3:03 AM GEOTHERMAL POWERPLANT MECHANIC HELPER HC MAGNESIUM (MGCT) Routine 04/05/2022 3:03 AM GEOTHERMAL POWERPLANT MECHANIC HELPER HC COMPREHENSIVE Routine 04/05/2022 METABOLIC PANEL 3:03 AM GEOTHERMAL POWERPLANT MECHANIC HELPER HC CBC W/ AUTOMATED DIFF Routine 04/05/2022 3:03 AM GEOTHERMAL POWERPLANT MECHANIC HELPER from Last 3 Months Results * (ABNORMAL) PHOSPHORUS CELLULAR THERAPEUTICS (04/11/2022 2:30 AM GEOTHERMAL POWERPLANT MECHANIC HELPER) Only the most recent of 7 results within the time period is included. Pathologist Signature Component Value Ref Test Method Analysis Performed A t Range Time Phosphorus 5.0 (H) 2.0 - 04/11/2022 [facility] DEPT PAT H AND 4.5 3:18 AM LAB MEDICINE MG/DL GEOTHER[employer] POWERPLANT MECHANIC HELPER Anatomical Location / Laterality Collection Method / Volume Radha ection Time Received Time Specimen (Source) BLOOD / Unknown 04/11/2022 2:30 AM GEOTHER[employer]AL POWERPLANT MECHANIC HELPER 04/11/19 23 2:36 AM GEOTHERMAL POWERPLANT MECHANIC HELPER Herberth Smallwood LABORATORY ORDERABLES DO City/State/ZIP Code Phone Number Performing [place] [address] [facility] AND [address] [facility] LAB MEDICINE * MAGNESIUM CELLULAR THERAPEUTICS (04/11/2022 2:30 AM GEOTHERMAL POWERPLANT MECHANIC HELPER) Only the most recent of 7 results within the time period is included. Pathologist Signature Component Value Ref Test Method Analysis Performed A t Range Time Magnesium 2.0 1.6 - 04/11/2022 [facility] DEPT PAT H AND 2.6 3:18 AM LAB MEDICINE mg/dL GEOTHERMAL POWERPLANT MECHANIC HELPER Anatomical Location / Laterality Collection Method / Volume Radha ection Time Received Time Specimen (Source) BLOOD / Unknown 04/11/2022 2:30 AM GEOTHERMAL POWERPLANT MECHANIC HELPER 04/11/19 2:36 AM GEOTHERMAL POWERPLANT MECHANIC HELPER Herberth Smallwood LABORATORY ORDERABLES DO City/State/ZIP Code Phone Number [place]forming [place] [address] [facility] DEPT PATH AND [address] [facility]. LAB MEDICINE * (ABNORMAL) CBC (04/11/2022 2:30 AM GEOTHERMAL POWERPLANT MECHANIC HELPER) Pathologist Signature Component Value Ref Test Method Analysis Performed A t Range Time White Blood Cells 7.6 4.5 - 04/11/2022 [facility] DE PT PATH AND 11.0 2:54 AM LAB MEDICINE K/UL GEOTHER[employer] POWERPLANT MECHANIC HELPER RBC 3.21 (L) 4.4 - 04/11/2022 [facility] DEPT PAT H AND 5.5 M/UL 2:54 AM LAB MEDICINE [employer] POWERPLANT MECHANIC HELPER Hemoglobin 10.5 (L) 13.5 - 04/11/2022 [facility] DEPT PAT H AND 16.5 2:54 AM LAB MEDICINE GM/DL [employer]OWERPLANT MECHANIC HELPER Hematocrit 31.1 (L) 40 - 50 04/11/2022 [facility] DEPT PAT H AND % 2:54 AM LAB MEDICINE GEOTHER[employer]AL POWERPLANT MECHANIC HELPER MCV 97.1 80 - 100 04/11/2022 [facility] DEPT PAT H AND FL 2:54 AM LAB MEDICINE [employer]OTHER[employer] POWERPLANT MECHANIC HELPER MCH 32.6 26 - 34 04/11/2022 [facility] DEPT PAT H AND PG 2:54 AM LAB MEDICINE GEOTHERMAL POWERPLANT MECHANIC HELPER MCHC 33.6 32.0 - 04/11/2022 [facility] DEPT PAT H AND 36.0 2:54 AM LAB MEDICINE G/DL GEOTHERMAL POWERPLANT MECHANIC HELPER RDW 14.9 11 - 15 04/11/2022 [facility] DEPT PAT H AND % 2:54 AM LAB MEDICINE GEOTHERMAL POWERPLANT MECHANIC HELPER Platelet Count 317 150 - 04/11/2022 [facility] DEPT PATH AND 400 K/UL 2:54 AM LAB MEDICINE GEOTHERMAL POWERPLANT MECHANIC HELPER MPV 7.5 7 - 11 04/11/2022 [facility] DEPT PAT H AND FL 2:54 AM LAB MEDICINE GEOTHERMAL POWERPLANT MECHANIC HELPER Anatomical Location / Laterality Collection Method / Volume Radha ection Time Received Time Specimen (Source) BLOOD / Unknown 04/11/2022 2:30 AM GEOTHERMAL POWERPLANT MECHANIC HELPER 04/11/19 2:36 AM GEOTHERMAL POWERPLANT MECHANIC HELPER Karma M Krahl LABORATORY ORDERABLES MERCHANDISE MARKER-TRAUMA MANAGER City/State/ZIP Code Phone Number [place]forming [place] [address] [facility] DEPT PATH AND [address] [facility] LAB MEDICINE * (ABNORMAL) COMPREHENSIVE METABOLIC PANEL (04/11/2022 2:30 AM GEOTHERMAL POWERPLANT MECHANIC HELPER) Only the most recent of 7 results within the time period is included. Pathologist Signature Component Value Ref Test Method Analysis Performed A t Range Time Sodium 135 (L) 137 - 04/11/2022 [facility] DEPT PAT H AND 147 3:18 AM LAB MEDICINE MMOL/L GEOTHER[employer] POWERPLANT MECHANIC HELPER Potassium 4.0 3.5 - 04/11/2022 [facility] DEPT PAT H AND 5.1 3:18 AM LAB MEDICINE MMOL/L GEOTHERMAL POWERPLANT MECHANIC HELPER Chloride 97 (L) 98 - 110 04/11/2022 [facility] DEPT PAT H AND MMOL/L 3:18 AM LAB MEDICINE GEOTHERMAL POWERPLANT MECHANIC HELPER Glucose 92 70 - 100 04/11/2022 [facility] DEPT PAT H AND MG/DL 3:18 AM LAB MEDICINE GEOTHERMAL POWERPLANT MECHANIC HELPER Blood Urea Nitrogen 30 (H) 7 - 25 04/11/2022 [facility] DEPT PATH AND MG/DL 3:18 AM LAB MEDICINE GEOTHERMAL POWERPLANT MECHANIC HELPER Creatinine 0.87 0.4 - 04/11/2022 [facility] DEPT PAT H AND 1.24 3:18 AM LAB MEDICINE MG/DL GEOTHERMAL POWERPLANT MECHANIC HELPER Calcium 9.2 8.5 - 04/11/2022 [facility] DEPT PAT H AND 10.6 3:18 AM LAB MEDICINE MG/DL GEOTHERMAL POWERPLANT MECHANIC HELPER Total Protein 7.2 6.0 - 04/11/2022 [facility] DEPT P ATH AND 8.0 G/DL 3:18 AM LAB MEDICINE GEOTHERMAL POWERPLANT MECHANIC HELPER Total Bilirubin 0.5 0.3 - 04/11/2022 [facility] DEPT PATH AND 1.2 3:18 AM LAB MEDICINE MG/DL GEOTHERMAL POWERPLANT MECHANIC HELPER Albumin 3.6 3.5 - 04/11/2022 [facility] DEPT PAT H AND 5.0 G/DL 3:18 AM LAB MEDICINE GEOTHERMAL POWERPLANT MECHANIC HELPER Alk Phosphatase 372 (H) 25 - 110 04/11/2022 [facility] DEPT PATH AND U/L 3:18 AM LAB MEDICINE GEOTHERMAL POWERPLANT MECHANIC HELPER AST (SGOT) 21 7 - 40 04/11/2022 [facility] DEPT PAT H AND U/L 3:18 AM LAB MEDICINE GEOTHERMAL POWERPLANT MECHANIC HELPER CO2 28 21 - 30 04/11/2022 [facility] DEPT PAT H AND MMOL/L 3:18 AM LAB MEDICINE GEOTHERMAL POWERPLANT MECHANIC HELPER ALT (SGPT) 26 7 - 56 04/11/2022 [facility] DEPT PAT H AND U/L 3:18 AM LAB MEDICINE GEOTHERMAL POWERPLANT MECHANIC HELPER Anion Gap 10 3 - 12 04/11/2022 [facility] DEPT PAT H AND 3:18 AM LAB MEDICINE GEOTHERMAL POWERPLANT MECHANIC HELPER eGFR >60 >60 04/11/2022 [facility] DEPT PAT H AND mL/min 3:18 AM LAB MEDICINE GEOTHERMAL POWERPLANT MECHANIC HELPER Comment: eGFR calculated using the CKD-[id number]_R equation Anatomical Location / Laterality Collection Method / Volume Radha ection Time Received Time Specimen (Source) BLOOD / Unknown 04/11/2022 2:30 AM GEOTHERMAL POWERPLANT MECHANIC HELPER 04/11/19 2:36 AM GEOTHERMAL POWERPLANT MECHANIC HELPER Karma M Adolfo LABORATORY ORDERABLES MERCHANDISE MARKER-TRAUMA MANAGER City/State/ZIP Code Phone Number [place]forming [place] [address] [facility] DEPT PATH AND [address] [facility] LAB MEDICINE * SWALLOW MOTION SERIES (04/10/2022 10:44 AM GEOTHERMAL POWERPLANT MECHANIC HELPER) Modality Anatomical Region Laterality Radio Fluoroscopy NECK Anatomical Location / Laterality Collection Method / Volume Radha ection Time Received Time Specimen (Source) 04/10/2022 11:07 AM GEOTHERMAL POWERPLANT MECHANIC HELPER Impressions 04/10/2022 11:13 AM GEOTHERMAL POWERPLANT MECHANIC HELPER 1. No evidence of laryngeal penetration or aspiration with all tested consistencies of barium. 2. Please see separately dictated report from the Department of Speech Pathology for further description. By my electronic signature, I attest that I have personally reviewed the images for this examination and formulated the interpretations and opinions expressed in this report Finalized by Janelle Cassidy M.D. on 04/10/2022 11:13 AM. Dictated by Francisco J Nix MD on 04/10/2022 11:07 AM. Narrative 04/10/2022 11:13 AM GEOTHERMAL POWERPLANT MECHANIC HELPER SWALLOW MOTION SERIES CLINICAL HISTORY: Dysphagia. TECHNIQUE: The procedure was performed in conjunction with members of the department of speech pathology. Video fluoroscopy was performed during swallowing of various consistencies of barium. The patient tolerated the procedure well and left the department in stable condition. TOTAL FLUOROSCOPY TIME:102 seconds FINDINGS: No evidence of laryngeal penetration or aspiration with all tested consistencies of barium. Procedure Note Janelle Cassidy MD - 04/10/2022 SWALLOW MOTION SERIES CLINICAL HISTORY: Dysphagia. TECHNIQUE: The procedure was performed in conjunction with members of the department of speech pathology. Video fluoroscopy was performed during swallowing of various consistencies of barium. The patient tolerated the procedure well and left the department in stable condition. TOTAL FLUOROSCOPY TIME:102 seconds FINDINGS: No evidence of laryngeal penetration or aspiration with all tested consistencies of barium. IMPRESSION 1. No evidence of laryngeal penetration or aspiration with all tested consistencies of barium. 2. Please see separately dictated report from the Department of Speech Pathology for further description. By my electronic signature, I attest that I have personally reviewed the images for this examination and formulated the interpretations and opinions expressed in this report Finalized by Janelle Cassidy M.D. on 04/10/2022 11:13 AM. Dictated by Francisco J Nix MD on 04/10/2022 11:07 AM. Karma Mata FLUOROSCOPY ORDERABLES MERCHANDISE MARKER-TRAUMA MANAGER * (ABNORMAL) CBC AND DIFF (04/10/2022 3:46 AM GEOTHERMAL POWERPLANT MECHANIC HELPER) Only the most recent of 6 results within the time period is included. Pathologist Signature Component Value Ref Test Method Analysis Performed A t Range Time White Blood Cells 6.8 4.5 - 04/10/2022 [facility] DE PT PATH AND 11.0 4:20 AM LAB MEDICINE K/UL GEOTHERMAL POWERPLANT MECHANIC HELPER RBC 3.24 (L) 4.4 - 04/10/2022 [facility] DEPT PAT H AND 5.5 M/UL 4:20 AM LAB MEDICINE GEOTHERMAL POWERPLANT MECHANIC HELPER Hemoglobin 10.6 (L) 13.5 - 04/10/2022 [facility] DEPT PAT H AND 16.5 4:20 AM LAB MEDICINE GM/DL GEOTHERMAL POWERPLANT MECHANIC HELPER Hematocrit 31.5 (L) 40 - 50 04/10/2022 [facility] DEPT PAT H AND % 4:20 AM LAB MEDICINE GEOTHERMAL POWERPLANT MECHANIC HELPER MCV 97.3 80 - 100 04/10/2022 [facility] DEPT PAT H AND FL 4:20 AM LAB MEDICINE GEOTHERMAL POWERPLANT MECHANIC HELPER MCH 32.8 26 - 34 04/10/2022 [facility] DEPT PAT H AND PG 4:20 AM LAB MEDICINE GEOTHERMAL POWERPLANT MECHANIC HELPER MCHC 33.7 32.0 - 04/10/2022 [facility] DEPT PAT H AND 36.0 4:20 AM LAB MEDICINE G/DL GEOTHERMAL POWERPLANT MECHANIC HELPER RDW 15.1 (H) 11 - 15 04/10/2022 [facility] DEPT PAT H AND % 4:20 AM LAB MEDICINE GEOTHERMAL POWERPLANT MECHANIC HELPER Platelet Count 373 150 - 04/10/2022 [facility] DEPT PATH AND 400 K/UL 4:20 AM LAB MEDICINE GEOTHERMAL POWERPLANT MECHANIC HELPER MPV 7.7 7 - 11 04/10/2022 [facility] DEPT PAT H AND FL 4:20 AM LAB MEDICINE GEOTHERMAL POWERPLANT MECHANIC HELPER Nucleated RBCs 1 K/UL 04/10/2022 [facility] DEPT PATH AND 7:02 AM LAB MEDICINE GEOTHERMAL POWERPLANT MECHANIC HELPER Segmented 58 41 - 77 04/10/2022 [facility] DEPT PAT H AND Neutrophils % 7:02 AM LAB MEDICINE GEOTHERMAL POWERPLANT MECHANIC HELPER Lymphocytes 29 24 - 44 04/10/2022 [facility] DEPT PAT H AND % 7:02 AM LAB MEDICINE GEOTHERMAL POWERPLANT MECHANIC HELPER Monocytes 9 4 - 12 % 04/10/2022 [facility] DEPT PAT H AND 7:02 AM LAB MEDICINE GEOTHERMAL POWERPLANT MECHANIC HELPER Eosinophil 1 0 - 5 % 04/10/2022 [facility] DEPT PAT H AND 7:02 AM LAB MEDICINE GEOTHERMAL POWERPLANT MECHANIC HELPER Metamyelocyte 1 % 04/10/2022 [facility] DEPT P ATH AND 7:02 AM LAB MEDICINE GEOTHERMAL POWERPLANT MECHANIC HELPER Myelocyte 2 % 04/10/2022 [facility] DEPT PAT H AND 7:02 AM LAB MEDICINE GEOTHERMAL POWERPLANT MECHANIC HELPER ANISO PRESENT 04/10/2022 [facility] DEPT PATH AND 7:02 AM LAB MEDICINE GEOTHERMAL POWERPLANT MECHANIC HELPER Platelet Estimate NORMAL 04/10/2022 [facility] DEPT P ATH AND 7:02 AM LAB MEDICINE GEOTHERMAL POWERPLANT MECHANIC HELPER Absolute Neutrophil 3.94 1.8 - 04/10/2022 [facility] DEPT PATH AND Count Manual 7.0 K/UL 7:02 AM LAB MEDICINE GEOTHERMAL POWERPLANT MECHANIC HELPER Anatomical Location / Laterality Collection Method / Volume Radha ection Time Received Time Specimen (Source) BLOOD / Unknown 04/10/2022 3:46 AM GEOTHERMAL POWERPLANT MECHANIC HELPER 04/10/19 4:01 AM GEOTHERMAL POWERPLANT MECHANIC HELPER Karma Mata LABORATORY ORDERABLES MERCHANDISE MARKER-TRAUMA MANAGER City/State/ZIP Code Phone Number [place] [address] [facility] DEPT PATH AND [address] [facility] LAB MEDICINE * FEEDING TUBE PLCMNT (ABD/CHEST LMTD) (04/06/2022 2:01 PM GEOTHERMAL POWERPLANT MECHANIC HELPER) Modality Anatomical Region Laterality Computed Radiography CHEST, Abdomen Anatomical Location / Laterality Collection Method / Volume Radha ection Time Received Time Specimen (Source) 04/06/2022 3:06 PM GEOTHERMAL POWERPLANT MECHANIC HELPER Impressions 04/06/2022 3:07 PM GEOTHERMAL POWERPLANT MECHANIC HELPER FINDINGS/IMPRESSION: Feeding tube appears coiled on itself within the stomach. Stylette remains. Scattered bowel gas without evidence of small bowel obstruction. Right convex curvature of the lumbar spine. Finalized by Percy Segura MD on 04/06/2022 3:07 PM. Dictated by Percy Segura MD on 04/06/2022 3:06 PM. Narrative 04/06/2022 3:07 PM GEOTHERMAL POWERPLANT MECHANIC HELPER FEEDING TUBE PLCMNT (ABD/CHEST LMTD) Clinical Indication: Post Feeding Tube Placement. Comparison: Chest radiograph 04/04/2021 Procedure Note Percy Segura MD - 04/06/2022 FEEDING TUBE PLCMNT (ABD/CHEST LMTD) Clinical Indication: Post Feeding Tube Placement. Comparison: Chest radiograph 04/04/2021 IMPRESSION FINDINGS/IMPRESSION: Feeding tube appears coiled on itself within the stomach. Stylette remains. Scattered bowel gas without evidence of small bowel obstruction. Right convex curvature of the lumbar spine. Finalized by Percy Segura MD on 04/06/2022 3:07 PM. Dictated by Percy Segura MD on 04/06/2022 3:06 PM. [facility] ORDERABL ES MERCHANDISE MARKER-TRAUMA MANAGER * (ABNORMAL) BLOOD GASES, PERIPHERAL VENOUS (04/06/2022 2:10 AM GEOTHERMAL POWERPLANT MECHANIC HELPER) Only the most recent of 3 results within the time period is included. Pathologist Signature Component Value Ref Test Method Analysis Performed A t Range Time pH-Venous 7.42 (H) 7.30 - 04/06/2022 [facility] DEPT PAT H AND 7.40 2:20 AM LAB MEDICINE GEOTHERMAL POWERPLANT MECHANIC HELPER PCO2-Venous 48 36 - 50 04/06/2022 [facility] DEPT PAT H AND [facility] 2:20 AM LAB MEDICINE GEOTHERMAL POWERPLANT MECHANIC HELPER PO2-Venous 77 (H) 33 - 48 04/06/2022 [facility] DEPT PAT H AND [facility] 2:20 AM LAB MEDICINE GEOTHERMAL POWERPLANT MECHANIC HELPER Base Excess-Venous 6.0 MMOL/L 04/06/2022 [facility] D EPT PATH AND 2:20 AM LAB MEDICINE GEOTHERMAL POWERPLANT MECHANIC HELPER O2 Sat-Venous 94.8 (H) 55 - 71 04/06/2022 [facility] DEPT P ATH AND % 2:20 AM LAB MEDICINE GEOTHERMAL POWERPLANT MECHANIC HELPER [id number] 29.8 MMOL/L 04/06/2022 [facility] DEPT PATH AND 2:20 AM LAB MEDICINE GEOTHERMAL POWERPLANT MECHANIC HELPER Anatomical Location / Laterality Collection Method / Volume Radha ection Time Received Time Specimen (Source) BLOOD / Unknown 04/06/2022 2:10 AM GEOTHERMAL POWERPLANT MECHANIC HELPER 04/06/19 2:18 AM GEOTHERMAL POWERPLANT MECHANIC HELPER Blood, Venous Brian Schmitt OTHER LABORATORY MERCHANDISE MARKER-TRAUMA MANAGER City/State/ZIP Code Phone Number [place] [address] [facility] DEPT PATH AND [address] LAB MEDICINE * (ABNORMAL) POC GLUCOSE (04/05/2022 3:04 AM GEOTHERMAL POWERPLANT MECHANIC HELPER) Pathologist Signature Component Value Ref Test Method Analysis Performed A t Range Time Glucose, POC 113 (H) 70 - 100 04/05/2022 [facility] DEPT PA TH AND MG/DL 3:08 AM LAB MEDICINE POC GEOTHERMAL POWERPLANT MECHANIC HELPER Anatomical Location / Laterality Collection Method / Volume Radha ection Time Received Time Specimen (Source) 04/05/2022 3:04 AM GEOTHERMAL POWERPLANT MECHANIC HELPER 04/05/19 3:08 AM GEOTHERMAL POWERPLANT MECHANIC HELPER Eliezer Camacho MD OTHER LABORATORY City/State/ZIP Code Phone Number Performing [place] [address] [facility] AND [address] LAB MEDICINE POC from Last 3 Months Insurance Type Payer Benefit Subscriber ID Effective Phone Address Plan / Dates Group Medicare MEDICARE MEDICARE [id number] 1982-P [phone] [address] [place] [address] [employer] MEDICAID [employer] [id number] 2018-P [phone] [address] [place] [id number] [place] [phone] Advance Directives Date Inactivated Comments Code Status Date Activated 04/11/2022 4:36 PM Full Code 04/02/2022 7:58 AM Comments Question Answer Provider has No, more discussion needed discussed Code Status w/Patient or Family? Date Inactivated Comments Code Status Date Activated 04/02/2022 7:58 AM Full Code 04/02/2022 4:17 AM Comments Question Answer Provider has No, more discussion needed discussed Code Status w/Patient or Family? 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
--- NOTE | 2022-07-03 13:15 | Diagnostic Imaging Report ---
TECHNIQUE: CTA of the chest was performed with contrast bolus timing optimized for evaluation of the pulmonary arteries. 3-D reformats were obtained and reviewed. Dose reduction techniques were utilized. COMPARISON: Chest radiograph performed earlier the same date. Reason for exam: Respiratory failure. Shortness of breath. FINDINGS: This is a suboptimal CTA of the chest. No large central pulmonary emboli are seen. The heart size is normal. No pericardial effusion. No evidence of dissection or aneurysm in the thoracic aorta. Mildly prominent mediastinal lymph nodes are seen. Consolidative opacities are seen in the lung bases. Small bilateral pleural effusions are seen. No pneumothorax. No central endobronchial obstructing lesions. No acute osseous abnormalities are seen in the chest. The upper abdomen is unremarkable. IMPRESSION: 1. Suboptimal CTA of the chest. No central pulmonary emboli are seen. No evidence of right heart strain. 2. Consolidative opacities in the lung bases with small bilateral pleural effusions. Dictated by: Dictated on workstation # [id number]
--- OUTSIDE RECORDS SUMMARY | 2022-07-03 13:15 | XMS REPORT | CCD ---
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 Inactive OUT OF REFILLS Lyrica 50 mg capsule RxNorm: 523976 Capsule(s) Oral GM E 1 CAPSULE BY MOUTH EACH MORNING 02/10/2020 06/12/2020 Inactive Lyrica 25 mg capsule RxNorm: 772391 TAKE 1 CAPSULE BY M OUTH DAILY AT BEDTIME Capsule(s) Oral 02/10/2020 06/08/2020 Inactive Senna-S 8.6 mg-50 mg tablet RxNorm: 900046 TAKE 2 TABLETS BY MO UT TWICE DAILY 01/13/2020 04/09/2020 Inactive PLEASE NEW RX+REFILL S FOR 31 DAYS. THANKS Miralax 17 gram oral powder packet RxNorm: 408786 TAKE 17 GRAMS MIXED INTO 8 OZS. OF JUICE OR WATER TWICE DAILY 01/10/2020 06/26/2020 Inactive OUT OF REFILLS Miralax 17 gram oral powder packet RxNorm: 643818 TAKE 17 GRAMS MIXED INTO 8 OZS. OF JUICE OR WATER TWICE DAILY 12/15/2019 01/09/2020 Inactive OUT OF REFILLS ketoconazole 2 % shampoo RxNorm: 578187 APPLY TO FACE TWICE PER WEE K 12/09/2019 03/21/2020 Inactive OUT OF REFILLS Plus 27 mg-1 mg tablet RxNorm: 1 Tablet(s) PO Q D 1 Tablet(s) Oral QD 11/17/2019 05/09/2020 Inactive loratadine 10 mg tablet RxNorm: 352903 TAKE 1 TABLET BY MOUTH DAILY 11/17/2019 04/09/2020 Inactive PLEASE NEW RX+REFILLS FOR 31 DAYS. THANKS Lyrica 50 mg capsule RxNorm: 314801 Capsule(s) Oral GM E 1 CAPSULE BY MOUTH EACH MORNING 10/18/2019 02/08/2020 Inactive Lyrica 25 mg capsule RxNorm: 493193 TAKE 1 CAPSULE BY OUTH DAILY AT BEDTIME Capsule(s) Oral 10/18/2019 02/13/2020 Inactive Senna-S 8.6 mg-50 mg tablet RxNorm: 204693 TAKE 2 TABLETS BY [facility] TWICE DAILY 10/18/2019 01/12/2020 Inactive PLEASE NEW RX+REFILL S FOR 31 DAYS. THANKS Bactrim DS 800 mg-160 mg tablet RxNorm: 129009 1 Tablet(s) Oral two times a day 10/04/2019 10/10/2019 Inactive Vitamin C 500 mg tablet RxNorm: 428915 1 Tablet(s) Oral QD 09/22/19 20 12/31/2021 Inactive citalopram 10 mg tablet RxNorm: 040098 1 Tablet(s) Oral QD 09/22/19 20 02/04/2021 Inactive omeprazole 40 mg capsule,delayed release RxNorm: 521530 1 Capsule(s) Oral QD for reflux 08/16/2019 09/21/2019 Inactive Clindagel 1 % topical gel, once daily RxNorm: 883294 Ap plication Topical QPM to face rash or prn for rosacea 07/21/2019 12/13/2020 Inactive loratadine 10 mg tablet RxNorm: 937780 TAKE 1 TABLET BY MOUTH DAILY 07/19/2019 11/15/2019 Inactive PLEASE NEW RX+REFILLS FOR 31 DAYS. THANKS Senna-S 8.6 mg-50 mg tablet RxNorm: 777219 TAKE 2 TABLETS BY MO UTH TWICE A DAY 07/19/2019 10/17/2019 Inactive PLEASE NEW RX+REFILL S FOR 31 DAYS. THANKS fluticasone propionate 50 mcg/actuation nasal spray,suspensi on RxNorm: 5853578 USE 1 SPRAY IN EACH NOSTRIL TWICE DAILY 07/01/2019 06/05/2020 Inactive OUT OF REFILLS Lyrica 50 mg capsule RxNorm: 189881 Capsule(s) Oral GM E 1 CAPSULE BY MOUTH EACH MORNING 06/16/2019 10/16/2019 Inactive Lyrica 25 mg capsule RxNorm: 129933 TAKE 1 CAPSULE BY M OUTH DAILY AT BEDTIME Capsule(s) Oral 06/16/2019 10/12/2019 Inactive Plus 27 mg-1 mg tablet RxNorm: 1 Tablet(s) PO Q D 1 Tablet(s) Oral QD 2019 11/16/2019 Inactive triamcinolone acetonide 0.025 % topical cream RxNorm: 945030 4 1 Application Topical two times a day apply thin layer to cheeks 05/03/2019 0 Inactive Lyrica 50 mg capsule RxNorm: 487143 Capsule(s) TAKE 1 C APSULE BY MOUTH EACH MORNING 02/22/2019 06/25/2019 Inactive Lyrica 25 mg capsule RxNorm: 557574 TAKE 1 CAPSULE BY MOUTH DOMINICK LY AT BEDTIME 02/22/2019 06/21/2019 Inactive loratadine 10 mg tablet RxNorm: 735758 TAKE 1 TABLET BY MOUTH DAILY 01/21/2019 03/23/2019 Inactive PLEASE NEW RX+REFILLS FOR 31 DAYS. THANKS Senna-S 8.6 mg-50 mg tablet RxNorm: 415743 TAKE 2 TABLETS BY [facility] TWICE A DAY 01/21/2019 07/18/2019 Inactive PLEASE NEW RX+REFILL S FOR 31 DAYS. THANKS Macrobid 100 mg capsule RxNorm: 345511 1 Capsule(s) Oral two ti mes a day 01/11/2019 01/10/2019 Inactive Macrobid 100 mg capsule RxNorm: 262187 1 Capsule(s) Oral two ti mes a day 01/11/2019 01/21/2019 Inactive Cipro 250 mg tablet RxNorm: 423035 1 Tablet(s) Oral two times a day 01/05/2019 01/12/2019 Inactive Senna-S 8.6 mg-50 mg tablet RxNorm: 320287 TAKE 2 TABLETS BY [facility] TWICE A DAY 12/21/2018 01/20/2019 Inactive NEED A NEW RX+REFILL S PLEASE FOR 31 DAYS. THANKS Plus 27 mg-1 mg tablet RxNorm: 1 Tablet(s) PO QD 11/0205/20/2019 Inactive doxycycline hyclate 100 mg capsule RxNorm: 0616914 1 Cap edison(s) Oral two times a day 11/23/2018 11/30/2018 Inactive doxycycline hyclate 100 mg capsule RxNorm: 1859675 1 Cap edison(s) Oral two times a day 11/23/2018 11/22/2018 Inactive loratadine 10 mg tablet RxNorm: 361458 1 Tablet(s) PO QD 11/23/201803/22/2018 Inactive doxycycline hyclate 100 mg capsule RxNorm: 9000191 1 Cap edison(s) Oral two times a day 11/23/2018 11/22/2018 Inactive Macrobid 100 mg capsule RxNorm: 968895 1 Capsule(s) PO BID 11/05/1911/10/2018 Inactive Macrobid 100 mg capsule RxNorm: 510522 1 Capsule(s) PO BID 11/05/1911/03/2018 Inactive Bactrim DS 800 mg-160 mg tablet RxNorm: 564431 1 Tablet(s) PO BID 0 10/29/2018 10/28/2018 Inactive Bactrim DS 800 mg-160 mg tablet RxNorm: 655482 1 Tablet(s) PO BID 0 10/29/2018 11/03/2018 Inactive Miralax 17 gram oral powder packet RxNorm: 526526 TAKE 17 GRAMS MIXED INTO 8 OZS. OF JUICE OR WATER TWICE DAILY 10/15/2018 01/15/2019 Inactive OUT OF REFILLS fluconazole 100 mg tablet RxNorm: 950735 1 Tablet(s) PO QD 10/13/19 19 10/18/2018 Inactive clotrimazole-betamethasone 1 %-0.05 % topical cream RxNorm: 411654 Application TOP BID to foot rash for 1-2 weeks 10/12/2018 09/21/2019 Inactive fluticasone propionate 50 mcg/actuation nasal spray,suspensi on RxNorm: 3190542 USE 1 SPRAY IN EACH NOSTRIL TWICE DAILY 09/01/2018 12/29/2018 Inactive Senna-S 8.6 mg-50 mg tablet RxNorm: 936897 TAKE 2 TABLETS BY [facility] TWICE A DAY 08/19/2018 12/20/2018 Inactive nystatin 100,000 unit/gram topical cream RxNorm: 247089 1 Gram( s) TOP BID 08/10/2018 08/09/2018 Inactive acyclovir 800 mg tablet RxNorm: 672800 1 Tablet(s) PO 5x day 201808/09/2018 Inactive nystatin 100,000 unit/gram topical cream RxNorm: 207641 1 Gram( s) TOP BID 08/10/2018 08/19/2018 Inactive acyclovir 800 mg tablet RxNorm: 866511 1 Tablet(s) PO 5x day 201808/16/2018 Inactive Miralax 17 gram oral powder packet RxNorm: 175511 TAKE 17 GRAMS MIXED INTO 8 OZS. OF JUICE OR WATER TWICE DAILY 07/31/2018 10/14/2018 Inactive Lyrica 25 mg capsule RxNorm: 534361 TAKE 1 CAPSULE BY MOUTH DOMINICK LY AT BEDTIME 07/16/2018 08/14/2018 Inactive nystatin 100,000 unit/gram topical powder RxNorm: 825553 1 Application TOP BID to upper thighs for 14 days 06/29/2018 07/12/2018 Inactive nystatin 100,000 unit/gram topical powder RxNorm: 954241 1 Application TOP BID to upper thighs for 14 days 06/29/2018 06/28/2018 Inactive Plus 27 mg-1 mg tablet RxNorm: 1 Tablet(s) PO QD 06/0111/22/2018 Inactive loratadine 10 mg tablet RxNorm: 282024 1 Tablet(s) PO QD 06/16/2018 0 11/22/2018 Inactive Miralax 17 gram oral powder packet RxNorm: 905315 TAKE 17 GRAMS MIXED INTO 8 OZS. OF JUICE OR WATER TWICE DAILY 05/19/2018 07/30/2018 Inactive ketoconazole 2 % shampoo RxNorm: 908770 APPLY TO FACE TWICE PER WEE K 05/04/2018 11/29/2018 Inactive Macrobid 100 mg capsule RxNorm: 466435 1 Capsule(s) PO BID 04/17/1904/16/2018 Inactive Macrobid 100 mg capsule RxNorm: 928864 1 Capsule(s) PO BID 04/17/1904/26/2018 Inactive Zithromax Z-Vu 250 mg tablet RxNorm: 791151 Tablet(s) PO As Di rected 02/26/2018 03/02/2018 Inactive Tessalon Perles 100 mg capsule RxNorm: 433488 1 Capsule (s) PO TID as needed for cough 02/26/2018 01/04/2019 Inactive Senna-S 8.6 mg-50 mg tablet RxNorm: 866104 2 Tablet(s) PO BID 02/1608/14/2018 Inactive Miralax 17 gram oral powder packet RxNorm: 145355 TAKE 17 GRAMS MIXED INTO 8 OZS. OF JUICE OR WATER TWICE DAILY 01/08/2018 04/10/2018 Inactive Miralax 17 gram oral powder packet RxNorm: 831381 1 Tab let(s) PO BID TAKE 17 GRAMS MIXED INTO 8 OZS. OF JUICE OR WATER TWICE DAILY 11/17/20172017 Inactive Miralax 17 gram oral powder packet RxNorm: 250999 1 Tab let(s) PO QD TAKE 17 GRAMS MIXED INTO 8 OZS. OF JUICE OR WATER once DAILY 11/04/2017 021 Inactive polymyxin B sulfate 10,000 unit-trimethoprim 1 mg/mL eye bandar ps RxNorm: 204779 2 Drop(s) ophthalmic (eye) Q4H while awake 10/29/2017 11/04/2017 Inactiv e Lyrica 25 mg capsule RxNorm: 040625 TAKE 1 CAPSULE BY MOUTH EAC H EVENING 10/20/2017 07/16/2018 Inactive Senna-S 8.6 mg-50 mg tablet RxNorm: 351283 2 Tablet(s) PO BID 10/2002/15/2018 Inactive Lyrica 50 mg capsule RxNorm: 333826 TAKE 1 CAPSULE BY MOUTH EAC H MORNING 10/20/2017 01/20/2018 Inactive loratadine 10 mg tablet RxNorm: 443516 Tablet(s) TAKE 1 TABLET BY MOUTH DAILY 10/20/2017 06/16/2018 Inactive Plus 27 mg-1 mg tablet RxNorm: Tablet(s) TAKE 1 TABLET BY MOUTH DAILY 10/20/2017 06/16/2018 Inactive nystatin 100,000 unit/gram topical cream RxNorm: 972394 Gram(s) TOP BID for 2 weeks 09/16/2017 09/21/2019 Inactive loratadine 10 mg tablet RxNorm: 875216 TAKE 1 TABLET BY MOUTH DAILY 08/18/2017 10/20/2017 Inactive Plus 27 mg-1 mg tablet RxNorm: TAKE 1 TABLET BY MOUTH DAILY 08/18/2017 10/20/2017 Inactive Miralax 17 gram oral powder packet RxNorm: 391189 1 Tab let(s) PO BID TAKE 17 GRAMS MIXED INTO 8 OZS. OF JUICE OR WATER TWICE DAILY 06/13/20172017 Inactive Miralax 17 gram oral powder packet RxNorm: 765038 1 Tab let(s) PO BID TAKE 17 GRAMS MIXED INTO 8 OZS. OF JUICE OR WATER TWICE DAILY 06/13/20172020 Inactive doxycycline hyclate 100 mg capsule RxNorm: 8380461 1 Capsule(s) PO BID 06/06/2017 06/05/2017 Inactive Cipro 250 mg tablet RxNorm: 223119 1 Tablet(s) PO BID 06/06/201706/01 Inactive Cipro 250 mg tablet RxNorm: 450963 1 Tablet(s) PO BID 06/06/201707/2017 Inactive doxycycline hyclate 100 mg capsule RxNorm: 6800701 1 Capsule(s) PO BID 06/06/2017 06/12/2017 Inactive Senna-S 8.6 mg-50 mg tablet RxNorm: 609271 2 Tablet(s) PO BID 05/1910/20/2017 Inactive Miralax 17 gram oral powder packet RxNorm: 140014 1 Tab let(s) PO BID TAKE 17 GRAMS MIXED INTO 8 OZS. OF JUICE OR WATER TWICE DAILY 01/06/20172017 Inactive Senna-S 8.6 mg-50 mg tablet RxNorm: 330622 2 Tablet(s) PO BID 12/1105/19/2017 Inactive Abilify 5 mg tablet RxNorm: 791852 1 Tablet(s) PO QHS 11/21/201612/01 Inactive docusate sodium 100 mg capsule RxNorm: 7115762 1 Capsule(s) PO BID 09/17/2016 09/21/2019 Inactive [AttnRPh: Saving apply/adjud icate RxGRP:SG20 RxBIN:[id number] RxPCN: ID#:[id number]] loratadine 10 mg tablet RxNorm: 874721 1 Tablet(s) PO QD 09/17/2016 0 08/17/2017 Inactive [AttnRPh: Saving apply/adjudicate RxGRP: SG20 RxBIN:[id number] RxPCN: ID#:[id number]] Plus 27 mg-1 mg tablet RxNorm: 1 Tablet(s) PO QD 08/3108/17/2017 Inactive [AttnRPh: Saving apply/adjud icate RxGRP:SG20 RxBIN:[id number] RxPCN: ID#:[id number]] Calcium + D 600 mg (1,500 mg)-200 unit tablet RxNorm: 321647 1 Tablet(s) PO QD 09/17/2016 09/21/2019 Inactive ketoconazole 2 % shampoo RxNorm: 592098 APPLY TO FACE TWICE PER WEE K 08/26/2016 02/21/2017 Inactive fluticasone propionate 50 mcg/actuation nasal spray,suspensi on RxNorm: 2111133 [place] USE 1 SPRAY IN EACH NOSTRIL TWICE A DAY 07/30/2016 01/25/2017 In active Miralax 17 gram oral powder packet RxNorm: 520873 TAKE 17 GRAMS MIXED INTO 8 OZS. OF JUICE OR WATER TWICE DAILY 07/30/2016 01/06/2017 Inactive Senna-S 8.6 mg-50 mg tablet RxNorm: 375116 2 Tablet(s) PO BID 07/1512/10/2016 Inactive Lyrica 50 mg capsule RxNorm: 133040 TAKE 1 CAPSULE BY MOUTH EAC H MORNING 07/11/2016 08/09/2016 Inactive Miralax 17 gram oral powder packet RxNorm: 374797 TAKE 17 GRAMS MIXED INTO 8 OZS. OF JUICE OR WATER TWICE DAILY 07/04/2016 07/29/2016 Inactive Miralax 17 gram oral powder packet RxNorm: 135205 TAKE 17 GRAMS MIXED INTO 8 OZS. OF JUICE OR WATER TWICE DAILY 07/04/2016 08/03/2016 Inactive Miralax 17 gram oral powder packet RxNorm: 343077 TAKE 17 GRAMS MIXED INTO 8 OZS. OF JUICE OR WATER TWICE DAILY 06/13/2016 07/03/2016 Inactive benztropine 2 mg tablet RxNorm: 704932 1 Tablet(s) PO BID 04/15/2016 09/21/2019 Inactive ketoconazole 2 % shampoo RxNorm: 340008 APPLY TO FACE TWICE PER WEE K 04/01/2016 08/25/2016 Inactive ketoconazole 2 % shampoo RxNorm: 744321 APPLY TO FACE TWICE PER WEE K 04/01/2016 12/13/2020 Inactive Miralax 17 gram oral powder packet RxNorm: 722731 TAKE 17 GRAMS MIXED INTO 8 OZS. OF JUICE OR WATER TWICE DAILY 03/29/2016 06/12/2016 Inactive calcium carbonate 600 mg calcium (1,500 mg)-vit D3 1,0 00 unit capsule RxNorm: 5237310 1 Capsule(s) PO QD 03/15/2016 09/17/2016 Inactive fluticasone 50 mcg/actuation nasal spray,suspension RxNorm: 2915786 [place] USE 1 SPRAY IN EACH NOSTRIL TWICE A DAY 03/04/2016 07/29/2016 Inactive Miralax 17 gram oral powder packet RxNorm: 922662 1 Uni t Dose PO BID in 6-8oz water daily 02/28/2016 03/28/2016 Inactive attnrph: saving apply/adjudicate rxgrp:sg20 rxbin:[id number] rxpcn:ht id#:[id number] Senna-S 8.6 mg-50 mg tablet RxNorm: 343886 TAKE TWO TABLETS ORA EVELINA TWICE A DAY 01/18/2016 07/15/2016 Inactive ketoconazole 2 % shampoo RxNorm: 262290 APPLY TO FACE TWICE PER WEE K 12/04/2015 03/31/2016 Inactive benztropine 2 mg tablet RxNorm: 257848 1 Tablet(s) PO BID 11/20/2015 04/14/2016 Inactive cefuroxime axetil 250 mg tablet RxNorm: 976542 1 Tablet(s) PO BID 0 11/13/2015 11/19/2015 Inactive cefuroxime axetil 250 mg tablet RxNorm: 205543 1 Tablet(s) PO BID 0 11/13/2015 11/12/2015 Inactive ketoconazole 2 % shampoo RxNorm: 355334 APPLY TO FACE TWICE PER WEE K 11/08/2015 12/03/2015 Inactive loratadine 10 mg tablet RxNorm: 565631 1 Tablet(s) PO QD 10/16/2015 0 09/16/2016 Inactive [AttnRPh: Saving apply/adjudicate RxGRP: SG20 RxBIN:[id number] RxPCN: ID#:[id number]] docusate sodium 100 mg capsule RxNorm: 9739218 1 Capsule(s) PO BID 10/16/2015 09/17/2016 Inactive [AttnRPh: Saving apply/adjud icate RxGRP:SG20 RxBIN:[id number] RxPCN:HT ID#:[id number]] Plus 27 mg-1 mg tablet RxNorm: 1 Tablet(s) PO QD 10/0109/16/2016 Inactive [AttnRPh: Saving apply/adjud icate RxGRP:SG20 RxBIN:[id number] RxPCN:HT ID#:[id number]] Miralax 17 gram oral powder packet RxNorm: 070995 1 Uni t Dose PO BID in 6-8oz water daily 09/29/2015 09/28/2015 Inactive attnrph: saving apply/adjudicate rxgrp:sg20 rxbin:[id number] rxpcn:ht id#:[id number] fluticasone 50 mcg/actuation nasal spray,suspension RxNorm: 8446592 USE 1 SPRAY IN EACH NOSTRIL TWICE A DAY 09/12/2015 03/04/2016 Inactive benztropine 2 mg tablet RxNorm: 315422 1 Tablet(s) PO BID 09/11/2015 11/20/2015 Inactive benztropine 2 mg tablet RxNorm: 116674 1 Tablet(s) PO BID 07/25/2015 09/10/2015 Inactive ketoconazole 2 % shampoo RxNorm: 435252 APPLY TO FACE TWICE PER WEE K 07/24/2015 11/07/2015 Inactive Senna-S 8.6 mg-50 mg tablet RxNorm: 769973 TAKE TWO TABLETS ORA LLY TWICE A DAY 07/13/2015 01/14/2016 Inactive ketoconazole 2 % shampoo RxNorm: 220749 APPLY TO FACE TWICE PER WEE K 06/30/2015 07/23/2015 Inactive Miralax 17 gram oral powder packet RxNorm: 507746 1 Uni t Dose PO BID in 6-8oz water daily 06/19/2015 09/29/2015 Inactive attnrph: saving apply/adjudicate rxgrp:sg20 rxbin:[id number] rxpcn: id#:[id number] fluticasone 50 mcg/actuation nasal spray,suspension RxNorm: 362732 1 [place] NASAL BID 05/29/2015 09/11/2015 Inactive Opcon-A 0.67206 %-0.315 % eye drops RxNorm: 8519189 2 Drop(s) OP H PRN as needed 04/26/2015 04/25/2015 Inactive Culturelle 10 billion cell capsule RxNorm: 044403 1 Capsule(s) PO QD prn 04/26/2015 09/21/2019 Inactive calcium carbonate-vitamin D3 600 mg (1,500 mg)-1,000 u nit capsule RxNorm: 7245090 1 Capsule(s) PO QD 04/24/2015 07/06/2015 Inactive Senna-S 8.6 mg-50 mg tablet RxNorm: 315338 TAKE TWO TABLETS ORA LLY TWICE A DAY 04/24/2015 07/12/2015 Inactive ketoconazole 2 % shampoo RxNorm: 506982 1 Application TOP twice weekly to face 04/11/2015 06/29/2015 Inactive Senna-S 8.6 mg-50 mg tablet RxNorm: 917966 2 Tablet(s) PO QD TAKE 2 TABLETS ORALLY TWICE A DAY 01/20/2015 04/23/2015 Inactive out of refill s Miralax 17 gram oral powder packet RxNorm: 193097 1 Uni t Dose PO BID in 6-8oz water daily 11/21/2014 12/13/2020 Inactive attnrph: saving apply/adjudicate rxgrp:sg20 rxbin:[id number] rxpcn:ht id#:[id number] Flonase Allergy Relief 50 mcg/actuation nasal spray,suspensi on RxNorm: 2 [place] NASAL QHS 11/21/2014 07/22/2016 Inactive azithromycin 250 mg tablet RxNorm: 612522 2 Tablet(s) P O on day one, then one tablet on days 2 - 5 11/18/2014 12/20/2014 Inactive azithromycin 250 mg tablet RxNorm: 284277 2 Tablet(s) P O on day one, then one tablet on days 2 - 5 11/17/2014 11/17/2014 Inactive fluticasone 50 mcg/actuation nasal spray,suspension RxNorm: 667247 1 [place] NASAL BID 11/09/2014 11/08/2014 Inactive Plus 27 mg-1 mg tablet RxNorm: 1 Tablet(s) PO QD 10/0110/13/2015 Inactive [AttnRPh: Saving apply/adjud icate RxGRP:SG20 RxBIN:[id number] RxPCN:HT ID#:[id number]] Plus 27 mg-1 mg tablet RxNorm: 1 Tablet(s) PO QD 09/0110/18/2014 Inactive [AttnRPh: Saving apply/adjud icate RxGRP:SG20 RxBIN:[id number] RxPCN:HT ID#:[id number]] nystatin-triamcinolone 100,000 unit/g-0.1 % topical cream RxNorm : 8163544 BID 09/26/2014 10/09/2014 Inactive docusate sodium 100 mg capsule RxNorm: 6776589 1 Capsule(s) PO BID 09/26/2014 10/15/2015 Inactive [AttnRPh: Saving apply/adjud icate RxGRP:SG20 RxBIN:[id number] RxPCN:HT ID#:[id number]] trihexyphenidyl 2 mg tablet RxNorm: 062555 1 Tablet(s) PO BID 09/2612/20/2014 Inactive Miralax 17 gram oral powder packet RxNorm: 576280 1 Uni t Dose PO BID in 6-8oz water daily 09/26/2014 11/20/2014 Inactive attnrph: saving apply/adjudicate rxgrp:sg20 rxbin:[id number] rxpcn:ht id#:[id number] loratadine 10 mg tablet RxNorm: 724170 Tablet(s) 1 Tabl et(s) PO QD 1 Tablet(s) PO QD 09/26/2014 10/16/2015 Inactive [AttnRPh: Saving apply/adjudicate RxGRP:SG20 RxBIN:[id number] RxPCN:HT ID#:[id number]] ketoconazole 2 % shampoo RxNorm: 376789 1 BIW lather and rinse after 10 min 09/26/2014 04/10/2015 Inactive Calcium + D 600 mg (1,500 mg)-200 unit tablet RxNorm: 952735 1 Tablet(s) PO QD 09/26/2014 09/19/2015 Inactive Senna-S 8.6 mg-50 mg tablet RxNorm: 965081 2 Tablet(s) PO QD TAKE 2 TABLETS ORALLY TWICE A DAY 09/26/2014 01/19/2015 Inactive out of refill s Senna-S 8.6 mg-50 mg tablet RxNorm: 122480 2 Tablet(s) PO QD TAKE 2 TABLETS ORALLY TWICE A DAY 07/20/2014 09/25/2014 Inactive out of refill s [AttnRPh: Saving apply/adjudicate RxGRP:SG20 RxBIN:[id number] RxPCN:HT ID#:[id number]] loratadine 10 mg tablet RxNorm: 019568 1 Tablet(s) PO QD 1 Tabl et(s) PO QD 04/25/2014 09/25/2014 Inactive [AttnRPh: Saving deyanira ly/adjudicate RxGRP:SG20 RxBIN:[id number] RxPCN:HT ID#:[id number]] docusate sodium 100 mg capsule RxNorm: 7536310 1 Capsule(s) PO BID 04/04/2014 09/25/2014 Inactive [AttnRPh: Saving apply/adjud icate RxGRP:SG20 RxBIN:[id number] RxPCN:HT ID#:[id number]] Senna-S 8.6 mg-50 mg tablet RxNorm: 481041 2 Tablet(s) PO QD TAKE 2 TABLETS ORALLY TWICE A DAY 03/15/2014 07/19/2014 Inactive OUT OF REFILL S [AttnRPh: Saving apply/adjudicate RxGRP:SG20 RxBIN:[id number] RxPCN:HT ID#:[id number]] nystatin 100,000 unit/gram topical cream RxNorm: 908048 Applica tion TOP BID 03/15/2014 07/22/2016 Inactive [AttnRPh: Saving deyanira ly/adjudicate RxGRP:SG20 RxBIN:[id number] RxPCN:HT ID#:[id number]] Miralax 17 gram oral powder packet RxNorm: 238035 1 Uni t Dose PO BID in 6-8oz water daily 03/15/2014 09/25/2014 Inactive AttnRPh: Saving apply/adjudicate RxGRP:SG20 RxBIN:[id number] RxPCN: ID#:[id number] [AttnRPh: Saving apply/adjudicate RxGRP:SG20 RxBIN:[id number] RxPCN:HT ID#:[id number]] Senna-S 8.6 mg-50 mg tablet RxNorm: 897141 2 Tablet(s) PO QD TAKE 2 TABLETS ORALLY TWICE A DAY 03/09/2014 03/14/2014 Inactive OUT OF REFILL S loratadine 10 mg tablet RxNorm: 103206 1 Tablet(s) PO QD 1 Tabl et(s) PO QD 10/28/2013 04/24/2014 Inactive [AttnRPh: Saving deyanira ly/adjudicate RxGRP:SG20 RxBIN:[id number] RxPCN:HT ID#:[id number]] docusate sodium 100 mg capsule RxNorm: 4546410 1 Capsule(s) PO BID 10/21/2013 04/03/2014 Inactive [AttnRPh: Saving apply/adjud icate RxGRP:SG20 RxBIN:[id number] RxPCN: ID#:[id number]] Plus 27 mg-1 mg tablet RxNorm: 1 Tablet(s) PO QD 06/201309/25/2014 Inactive [AttnRPh: Saving apply/adjud icate RxGRP:SG20 RxBIN:[id number] RxPCN: ID#:[id number]] Calcium + D 600 mg (1,500)-200 unit tablet RxNorm: 705700 1 Tab let(s) PO QD 09/21/2013 09/25/2014 Inactive loratadine 10 mg tablet RxNorm: 147774 1 Tablet(s) PO QD 1 Tabl et(s) PO QD 07/06/2013 10/28/2013 Inactive docusate sodium 100 mg capsule RxNorm: 8248732 1 Capsule(s) PO BID 04/12/2013 10/21/2013 Inactive Senna-S 8.6 mg-50 mg tablet RxNorm: 567407 2 Tablet(s) PO BID 01/0503/09/2014 Inactive loratadine 10 mg tablet RxNorm: 225928 1 Tablet(s) PO QD 01/04/2013 0 07/06/2013 Inactive Senna-S 8.6 mg-50 mg tablet RxNorm: 958834 2 Tablet(s) PO BID 01/0401/04/2013 Inactive loratadine 10 mg tablet RxNorm: 0120374 1 Tablet(s) PO QD 10/05/2012 01/04/2013 Inactive Senna-S 8.6 mg-50 mg tablet RxNorm: 027186 2 Tablet(s) PO BID 10/0501/04/2013 Inactive Calcium + D 600 mg (1,500)-200 unit tablet RxNorm: 154108 1 Tab let(s) PO QD 09/11/2012 09/21/2013 Inactive docusate sodium 100 mg capsule RxNorm: 4072426 1 Capsule(s) PO BID 09/10/2012 03/08/2013 Inactive Plus 27 mg-1 mg tablet RxNorm: 1 Tablet(s) PO QD 08/3109/04/2013 Inactive Senna-S 8.6 mg-50 mg tablet RxNorm: 944272 2 Tablet(s) PO BID 09/1010/04/2012 Inactive loratadine 10 mg tablet RxNorm: 1616675 1 Tablet(s) PO QD 09/10/2012 09/09/2012 Active divalproex ER 500 mg tablet,extended release 24 hr RxNorm: 1 956239 1 Tablet(s) PO BID 09/10/2012 09/21/2019 Inactive Nasonex 50 mcg/actuation [place] RxNorm: 354669 1 [place] NASAL BID 07/22/2016 Inactive Depakote 500 mg tablet,delayed release RxNorm: 2024230 1 Tablet( s) PO BID 08/10/2012 12/20/2014 Inactive loratadine 10 mg tablet RxNorm: 7447138 1 Tablet(s) PO QD 06/29/2012 09/09/2012 Inactive docusate sodium 100 mg capsule RxNorm: 3581812 1 Capsule(s) PO BID 06/29/2012 09/09/2012 Inactive divalproex 250 mg tablet,delayed release RxNorm: 5874274 1 Table t(s) PO QPM 06/08/2012 09/21/2019 Inactive Depakote 500 mg tablet,delayed release RxNorm: 1914315 1 Tablet( s) PO BID 04/13/2012 07/11/2012 Inactive Senna-S 8.6 mg-50 mg tablet RxNorm: 981164 2 Tablet(s) PO BID 03/1604/14/2012 Inactive Plus 27 mg-1 mg tablet RxNorm: 1 Tablet(s) PO QD 01/3109/09/2012 Inactive divalproex ER 500 mg tablet,extended release 24 hr RxNorm: 1 002263 1 Tablet(s) PO BID 02/10/2012 04/09/2012 Inactive divalproex 250 mg tablet,delayed release RxNorm: 3864743 1 Table t(s) PO QPM 09/30/2011 04/26/2012 Inactive Nasonex 50 mcg/actuation [place] RxNorm: 6456134 1 [place] NASAL BID 03/13/2012 Inactive Depakote 500 mg tablet,delayed release RxNorm: 7068081 1 Tablet( s) PO BID 08/14/2011 02/09/2012 Inactive divalproex ER 500 mg tablet,extended release 24 hr RxNorm: 1 012916 1 Tablet(s) PO BID 06/17/2011 08/15/2011 Inactive Benadryl 25 mg Cap RxNorm: 5219904 1 Capsule(s) PO QHS as needed for sinus drainage. May cause drowsiness. 05/23/2011 11/29/2013 Inactive divalproex ER 500 mg 24 hr Tab RxNorm: 1327392 1 Tablet(s) PO BID 0 04/15/2011 06/13/2011 Inactive Nasonex 50 mcg/actuation [place] RxNorm: 3849717 1 [place] NASAL BID 09/15/2011 Inactive Amitiza 24 mcg Cap RxNorm: 764689 1 Capsule(s) PO BID 03/19/201105/01 Inactive Sennalax-S 8.6 mg-50 mg Tab RxNorm: 973613 2 Tablet(s) PO BID 03/1907/16/2011 Inactive Nasonex 50 mcg/Actuation [place] RxNorm: 4155091 1 [place] NASAL BID 03/24/2011 Inactive divalproex 250 mg Tab, Delayed Release RxNorm: 3086415 1 Tablet( s) PO QPM 02/27/2011 09/24/2011 Inactive Plus 27 mg-1 mg tablet RxNorm: 1 Tablet(s) PO QD 02/0105/20/2011 Inactive divalproex ER 500 mg 24 hr Tab RxNorm: 4030662 1 Tablet(s) PO BID 1 04/15/2010 04/12/2011 Inactive Amitiza 24 mcg Cap RxNorm: 833649 1 Capsule(s) PO BID 01/14/201103/03 Inactive Nasonex 50 mcg/Actuation [place] RxNorm: 7590766 1 [place] NASAL BID 03/16/2011 Inactive Depakote 500 mg Tab RxNorm: 2462840 1 Tablet(s) PO BID 09/18/2010 Inactive divalproex 250 mg Tab, Delayed Release RxNorm: 4201739 1 Tablet( s) PO QPM 07/31/2010 02/25/2011 Inactive Amitiza 24 mcg Cap RxNorm: 795307 1 Capsule(s) PO BID 06/19/201001/01 Inactive divalproex ER 500 mg 24 hr Tab RxNorm: 3973699 1 Tablet(s) PO BID 0 03/27/2010 09/22/2010 Inactive Amitiza 24 mcg Cap RxNorm: 969419 1 Capsule(s) PO BID 03/20/201006/01 Inactive Sennalax-S 8.6 mg-50 mg Tab RxNorm: 685260 2 Tablet(s) PO BID 03/2007/17/2010 Inactive divalproex 250 mg Tab, Delayed Release RxNorm: 1046578 1 Tablet( s) PO QPM 03/06/2010 07/30/2010 Inactive Amitiza 24 mcg Cap RxNorm: 574971 1 Capsule(s) PO BID 12/27/200903/03 Inactive Abilify 5 mg Tab RxNorm: 383724 1 Tablet(s) PO QD 12/13/2009 01/01/20 10 Inactive Abilify 5 mg Tab RxNorm: 557532 1 Tablet(s) PO QD 11/23/2009 12/13/19 10 Inactive Nasonex 50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 10/04/2013 Visit Plan: Continue current meds and in crease fiber daily Change dulcolax to miralax and increase water intake 04/27/2013 Appointment: Tish Noe WPtel: [address] [place], [place] [phone] Annual Well Visit 04/27/2013 Patient Education: Patient Medication Summary Completed 04/27/2013 Patient Education: [facility] - Saving AutoInj - 18+ - Dynamic Portal ID Completed 04/27/2013 Appointment: Tish Noe WPtel: [address] [place], [place] [phone] ACUTE ILLNESS 04/22/2013 Visit Plan: Rx written for wheelchair an d depends Continue current meds Pt has labs q 6mos 04/06/2013 Appointment: Tish Noe WPtel: [address] [place], [place] [phone] 04/01 hung up when tried to verify ACUTE ILLNESS 04/06/2013 Patient Education: Patient Medication Summary Completed 04/06/2013 Appointment: Tish Noe WPtel: [address] [place] [phone] Insurance coverage issues left without being seen ACUTE ILLNESS 12/30/2012 Appointment: Tish Noe WPtel: [address] [place], [place] [phone] FOLLOW UP 03/31/2012 Appointment: Tish Noe WPtel: [phone] [place] Tried to reach to reschedule; no working phone numbers 02/27 mailed letter to patient /2 - rescheduled appt 01/14/13 - will call back and reschedule when [employer] goes into effect New Have called moved appt up FOLLOW UP 03/16/2012 Visit Plan: Continue current meds 12/02/2011 Appointment: Tish Noe WPtel: [phone] CHECK UP 12/02/2011 Patient Education: Patient Medication Summary Completed 12/02/2011 Visit Plan: No evidence of parkinson's t remor on exam--discussed parkinson's symptoms with direct sales representative 10/01/2011 Appointment: Tish Noe WPtel: [address] [place], [place] [phone] FOLLOW UP 10/01/2011 Patient Education: Patient Medication Summary Completed 10/01/2011 Visit Plan: Proceed with hearing evaluat ion Proceed with repeat CT of head DC Amitiza 07/22/2011 Appointment: Tish Noe WPtel: [address] [place], [place] [phone] ACUTE ILLNESS 07/22/2011 Patient Education: Patient Medication Summary Completed 07/22/2011 Visit Plan: will continue Loratidine. an d will use Azithromycin. Will notify if no improvement. Benadryl at bedtime PRN. 05/23/2011 Appointment: Kiley Wilson WPtel: [address] [place], [place] [phone] ACUTE ILLNESS 05/23/2011 Patient Education: Patient Medication Summary Completed 05/23/2011 Visit Plan: Continue claritin Add Z-pack 11/22/2010 Appointment: Tish Noe WPtel: [address] [place], [place] [phone] FOLLOW UP 11/22/2010 Patient Education: Patient Medication Summary Completed 11/22/2010 Appointment: Tish Noetel: [address] [place], [place] [phone] [facility] 08/03/2010 Patient Education: Patient Medication Summary Completed 08/03/2010 Appointment: Tish Noe WPtel: [address] [place], [place] [phone] [facility] 07/23/2010 Patient Education: Patient Medication Summary Completed 07/23/2010 Visit Plan: Cont current meds Repeat lab in 6mos 05/24/2010 Appointment: Tish Noetel: [address] [place], [place] [phone] FOLLOW UP 05/24/2010 Patient Education: Patient Medication Summary Completed 05/24/2010 Appointment: Tish Noe WPtel: [address] [place], [place] [phone] [facility] 01/01/2010 Patient Education: Patient Medication Summary Completed 01/01/2010 Appointment: Tish Noetel: [address] [place], [place] [phone] FOLLOW UP 11/23/2009 Patient Education: Patient Medication Summary Completed 11/23/2009 Visit Plan: Check CMP, CBC, TSH, Free T4 , Depakote level, Vit D, B12, Lipids Start Abilify 5mg QD See Psych 10/24/2009 Appointment: Tish Noe WPtel: [address] [place], [place] [phone] ESTABLISHED PATIENT 10/24/2009 Patient Education: Patient Medication Summary Completed 10/24/2009 Visit Plan: Caregiver present states the pt. has not complained of pain or other symptoms. Swelling is present on left upper cheek. Caregiver states the pt. has eaten normally over the last few days. Pt. reports pain with eating. Instructed cardiac care unit nurse to seek re-eval if symptoms persist or fever appears. OTC Tylenol or Motrin for discomfort recommended. 06/23/2009 Appointment: Kiley Wilson WPtel: [phone] ACUTE ILLNESS 06/23/2009 Patient Education: Patient Medication Summary Completed 06/23/2009 Referral: Yajaira Corea WPtel: [phone] [address] [place] Referral Initiated Referral: Gilbert Covarrubias WPtel: [address] [address] [place] Referral Initiated Referral: Earl Jordan WPtel: [address] Referral Initiated Instructions Comment Date . Supportive care. Rest, Fluids, Tyleno l/Motrin prn fever or bodyaches. Notify if worsening symptoms. 02/26/2018 . Supportive care. Rest, Fluids, Tyleno l/Motrin prn fever or bodyaches. Notify if worsening symptoms. 03/25/2017 . Check CBC, CMP, Depakote, TSH, Free T4 , B12 and UA Dr. Covarrubias has started Levaquin Will need CT scan if does not improve or WATKINS persists 12/20/2015 . Proceed with lightweight wheelchair Proceed with PT 12/04/2015 . Sign at check out for ER records Discussed POC with Dr Noe - labs to be done - cbc, cmp, depakote level, UA Will repeat imaging for ankle, foot and tib/fib to re-evaluate his continued pain complaints Will call with results 11/08/2015 . Continue current meds Check fasting lab next month 10/18/2015 . Continue current meds Fwup with Dr. Rashid and Wali as scheduled Fasting lab and fwup in 6mos 07/05/2015 . Patient to see Dr. Rashid next week Continue current meds Due for repeat lab in 03/28/2015 . Continue current meds Check lab 12/21/2014 . Z-vu Robitussin DM every 4 hours as needed for cough Resume daily anti-histamine Monitor for fever or increased SOB Follow-up if symptoms worsen. 11/17/2014 . Ketoconazole shampoo to scalp twice we ekly as directed Nystatin/triamcinolone cream to facial rash bid x 14-21 days. Follow-up if no improvement Refill routine medications. 09/26/2014 . Continue current meds and observe stools 04/13/2014 . Increase miralax to BID dosing Continue other meds Check lab then fwup in 1mo 03/15/2014 . Increase loratadine to 10mg po BID for 2weeks then decrease back to once daily Tussin prn for cough Notify if worsens or persists 11/30/2013 . Continue current meds Stomach much better per staff since addition of miralax and decreasing spicy foods 10/05/2013 . Continue current meds and increase fib er daily Change dulcolax to miralax and increase water intake 04/27/2013 . Rx written for wheelchair and depends Continue current meds Pt has labs q 6mos 04/06/2013 . Continue current meds 12/02/2011 . No evidence of parkinson's tremor on e xam--discussed parkinson's symptoms with direct sales representative 10/01/2011 . Proceed with hearing evaluation Proceed with repeat CT of head DC Amitiza 07/22/2011 . will continue Loratidine. and will use Azithromycin. Will notify if no improvement. Benadryl at bedtime PRN. 05/23/2011 . Continue claritin Add Z-pack 11/22/2010 . Cont current meds Repeat lab in 6mos 05/24/2010 . Check CMP, CBC, TSH, Free T4, Depakote level, Vit D, B12, Lipids Start Abilify 5mg QD See Psych 10/24/2009 . Caregiver present states the pt. has n ot complained of pain or other symptoms. Swelling is present on left upper cheek. Caregiver states the pt. has eaten normally over the last few days. Pt. reports pain with eating. Instructed cardiac care unit nurse to seek re-eval if symptoms persist or fever appears. OTC Tylenol or Motrin for discomfort recommended. 06/23/2009 Medical Equipment No Medical Equipment data Health Concerns Section Health Concerns data not found Goals Section Goals data not found Interventions Section Interventions data not found Health Status Evaluations/Outcomes Section Health Status Evaluations/Outcomes data not found Advance Directives No Advance Directive data
--- OUTSIDE RECORDS SUMMARY | 2022-07-03 13:15 | XMS REPORT | CCD ---
Author Author Steve Noe D.O. Organization [facility] Address [address] [place] [address] Phone Care Team Providers Care Environmental Analyst Name Role Phone Tish [facility]e D[facility] PP Unavailable CCM Unavailable Summary Purpose Interface Exchange Insurance Providers Payer name Policy type / Coverage type Covered republican ID Effective Begin Date Effective End Date WPS MEDICARE PART B [place] Medicare Part B [id number] 2018 Unknown AETNA [facility] Medicare Part B [id number] Unknown Family history Father Diagnosis Age At Onset *Denies any medical problems Unknown Mother Diagnosis Age At Onset *Denies any medical problems Unknown Social History Social History Element Codes Description Effective Dates Tobacco history SNOMED CT: 541345074 Never smoker 11/17/2014 Marital status Unknown Single [...] Start Date Stop Date Status Fill Instructions Keppra 100 mg/mL oral solution RxNorm: 940144 Take 15 M illiliter(s) Oral two times a day 07/01/2022 12/27/2022 Active levofloxacin 500 mg tablet RxNorm: 259028 Take 1 Tablet(s) Oral QD 06/25/2022 07/01/2022 Inactive levofloxacin 500 mg tablet RxNorm: 890461 1 Tablet(s) Oral QD 06/2506/25/2022 Inactive polyethylene glycol 3350 17 gram/dose oral powder RxNorm: 87 6193 DRINK 17 GRAMS MIXED INTO 8 OZS. OF JUICE OR WATER TWICE DAILY 06/24/2022 08/22/2022 Active loratadine 10 mg tablet RxNorm: 458297 TAKE 1 TABLET BY MOUTH DAILY 06/12/2022 12/14/2022 Active PLEASE NEW RX+REFILLS FOR 31 DAYS THANKS Twyla 10 billion cell capsule RxNorm: 493603 Take 1 Capsul e(s) Oral QD 06/06/2022 08/04/2022 Active tetracycline 500 mg capsule RxNorm: 133180 Take 1 Capsu le(s) Oral four times a day 2022 05/30/2022 Inactive tetracycline 500 mg capsule RxNorm: 919307 1 Capsule(s) Oral fo ur times a day 2022 2022 Inactive Macrobid 100 mg capsule RxNorm: 017206 Take 1 Capsule(s) Oral t wo times a day 05/20/2022 05/20/2022 Inactive Macrobid 100 mg capsule RxNorm: 533329 1 Capsule(s) Oral two ti mes a day 05/20/2022 05/20/2022 Inactive pregabalin 50 mg capsule RxNorm: 320896 Take 1 Capsule(s) Oral QAM 05/15/2022 05/15/2022 Inactive Stimulant Laxative Plus 8.6 mg-50 mg tablet RxNorm: 875546 TAKE 2 TABLETS BY MOUTH TWICE DAILY 05/13/2022 08/13/2022 Active PLEASE NEW RX+ REFILLS FOR 31 DAYS THANKS Cipro 250 mg tablet RxNorm: 863171 Take 1 Tablet(s) Oral two ti mes a day 04/29/2022 05/08/2022 Inactive Cipro 250 mg tablet RxNorm: 603257 1 Tablet(s) Oral two times a day 04/29/2022 04/29/2022 Inactive Keppra 100 mg/mL oral solution RxNorm: 363850 Take 15 M illiliter(s) Oral two times a day 04/22/2022 04/22/2022 Inactive omeprazole 40 mg capsule,delayed release RxNorm: 567784 Take 1 Capsule(s) Oral QD 04/15/2022 10/11/2022 Active RX QTT LEFT NOT ENOUGH FOR 93 DAYS PLEASE NEW RX+REFILLS THANKS ketoconazole 2 % shampoo RxNorm: 926843 APPLY TO FACE TWICE PER WEE K 04/10/2022 05/09/2022 Inactive ciclopirox 8 % topical solution RxNorm: 071730 APPLY TO AFFECTED TOENAILS EVERY NIGHT AT BEDTIME OR 8 HOURS BEFORE WASHING 03/26/2022 04/24/2022 Inact dalia aripiprazole 10 mg tablet RxNorm: 451892 Take 1 Tablet(s) Oral HS 0 03/25/2022 05/25/2022 Inactive RX NEED A NEW RX+REF ILLS FOR 93 DAYS THANKS mirtazapine 15 mg tablet RxNorm: 231712 Take 1 Tablet(s) Oral HS 05/25/2022 Inactive RX NEED A NEW RX+REF ILLS FOR 93 DAYS THANKS citalopram 40 mg tablet RxNorm: 185786 Take 1 Tablet(s) Oral QD 05/25/2022 Inactive RX NEED A NEW RX+REF ILLS FOR 93 DAYS THANKS polyethylene glycol 3350 17 gram/dose oral powder RxNorm: 87 6193 DRINK 17 GRAMS MIXED INTO 8 OZS. OF JUICE OR WATER TWICE DAILY 03/25/2022 06/22/2022 Inactive Keppra 100 mg/mL oral solution RxNorm: 283796 Take 10 M illiliter(s) Oral two times a day 03/25/2022 03/25/2022 Inactive Keppra 100 mg/mL oral solution RxNorm: 493396 Take 10 M illiliter(s) Oral two times a day 03/25/2022 04/21/2022 Inactive lamotrigine 100 mg tablet RxNorm: 004043 Take 1 Tablet(s) Oral two times a day 03/18/2022 04/21/2022 Inactive PLEASE NEW RX+REFIIL S FOR 93 DAYS THANKS PrePlus 27 mg iron-1 mg tablet RxNorm: Take 1 Tablet(s) Oral Q D 03/13/2022 03/19/2023 Active PLEASE NEW RX+REFIILS FOR 93 DAYS THANKS loratadine 10 mg tablet RxNorm: 545819 Take 1 Tablet(s) Oral QD 05/20/2022 Inactive Lamictal 100 mg tablet RxNorm: 121953 Take 1 Tablet(s) Oral two times a day 02/20/2022 02/20/2022 Inactive Keppra 1,000 mg tablet RxNorm: 101499 Take 1 Tablet(s) Oral two times a day 02/18/2022 04/21/2022 Inactive loratadine 10 mg tablet RxNorm: 028272 TAKE 1 TABLET BY MOUTH 2 TIMES DAILY Take 1 Tablet(s) Oral two times a day 02/18/2022 02/19/2022 Inactive PLEASE NEW RX+REFILLS FOR 31 DAYS THANKS cephalexin 500 mg capsule RxNorm: 336163 Take 1 Capsule (s) Oral three times a day 02/18/2022 02/24/2022 Inactive fluticasone propionate 50 mcg/actuation nasal spray,suspensi on RxNorm: 6506949 SPRAY 1 SPRAY INTO EACH NOSTRIL TWICE DAILY 02/12/2022 08/10/2022 Acti ve omeprazole 40 mg capsule,delayed release RxNorm: 611192 Take 1 Capsule(s) Oral QD 02/12/2022 02/12/2022 Inactive Patient reques ts 90 days supply Stimulant Laxative Plus 8.6 mg-50 mg tablet RxNorm: 107698 TAKE 2 TABLETS BY MOUTH TWICE DAILY 02/12/2022 04/21/2022 Inactive PLEASE NEW RX+ REFILLS FOR 31 DAYS THANKS Lamictal 100 mg tablet RxNorm: 500779 Take 1 Tablet(s) Oral two times a day 02/11/2022 02/11/2022 Inactive Lamictal 100 mg tablet RxNorm: 338803 1 Tablet(s) Oral two time s a day 02/11/2022 02/11/2022 Inactive omeprazole 40 mg capsule,delayed release RxNorm: 535288 Take 1 Capsule(s) Oral QD 02/07/2022 02/07/2022 Inactive Patient reques ts 90 days supply Culturelle 10 billion cell capsule RxNorm: 492477 Take 1 Capsul e(s) Oral QD 02/05/2022 02/05/2022 Inactive Keppra 500 mg tablet RxNorm: 692582 Take 1 Tablet(s) Oral QD 202102/17/2022 Inactive Benadryl Allergy 25 mg tablet RxNorm: 6846319 Take 1 Tab let(s) Oral Every 6 hours as needed for hives 01/17/2022 No Stop Date Active pregabalin 50 mg capsule RxNorm: 815011 Take 1 Capsule(s) Oral QAM 01/01/2022 02/04/2022 Inactive pregabalin 25 mg capsule RxNorm: 635928 Take 1 Capsule(s) Oral QAM 01/01/2022 01/01/2022 Inactive Lamictal 100 mg tablet RxNorm: 370764 Take 1 Tablet(s) Oral QD 03/202102/04/2022 Inactive levetiracetam 250 mg tablet RxNorm: 474563 Take 1 Table t(s) Oral two times a day 01/01/2022 01/01/2022 Inactive Keppra 1,000 mg tablet RxNorm: 160789 Take 1 Tablet(s) Oral two times a day replaces 500mg dose 01/01/2022 02/17/2022 Inactive Depakote 500 mg tablet,delayed release RxNorm: 9401474 T willi 1 Tablet(s) Oral two times a day 01/01/2022 01/01/2022 Inactive Augmentin 500 mg-125 mg tablet RxNorm: 739094 1 Tablet(s) Oral two times a day 12/25/2021 12/25/2021 Inactive Augmentin 500 mg-125 mg tablet RxNorm: 001474 Take 1 Ta blet(s) Oral two times a day 12/25/2021 12/29/2021 Inactive Depakote 250 mg tablet,delayed release RxNorm: 7683621 T willi 1 Tablet(s) Oral two times a day for seizure 12/17/2021 12/31/2021 Inactive pregabalin 50 mg capsule RxNorm: 713358 TAKE 1 CAPSULE BY MOUTH EACH MORNING 12/12/2021 12/31/2021 Inactive PLEASE NEW RX+REFILL S FOR 31 DAYS. THANKS pregabalin 25 mg capsule RxNorm: 719641 Take 1 Capsule(s) Oral two times a day 12/12/2021 12/31/2021 Inactive loratadine 10 mg tablet RxNorm: 648199 TAKE 1 TABLET BY MOUTH DAILY 12/08/2021 12/08/2021 Inactive PLEASE NEW RX+REFILLS FOR 31 DAYS THANKS fluticasone propionate 50 mcg/actuation nasal spray,suspensi on RxNorm: 6809433 SPRAY 1 SPRAY INTO EACH NOSTRIL TWICE DAILY 12/04/2021 12/04/2021 Inac tive levetiracetam 1,000 mg tablet RxNorm: 806375 Take 1 Tablet(s) O ral QPM 12/04/2021 12/11/2021 Inactive levetiracetam 750 mg tablet RxNorm: 832779 Take 1 Tablet(s) Oral QA M 12/04/2021 12/11/2021 Inactive levetiracetam 750 mg tablet RxNorm: 205322 Take 1 Tablet(s) Oral QA M 11/26/2021 11/26/2021 Inactive levetiracetam 1,000 mg tablet RxNorm: 807243 Take 1 Tablet(s) O ral QPM 11/26/2021 11/26/2021 Inactive levetiracetam 750 mg tablet RxNorm: 012340 Take 1 Tablet(s) Oral QA M 11/26/2021 12/31/2021 Inactive levetiracetam 1,000 mg tablet RxNorm: 611681 Take 1 Tablet(s) O ral QPM 11/26/2021 12/31/2021 Inactive levetiracetam 750 mg tablet RxNorm: 427148 Take 1 Tablet(s) Oral QA M 11/19/2021 11/26/2021 Inactive melatonin 5 mg tablet RxNorm: 613705 TAKE 1 TABLET BY M OUTH DAILY IN THE EVENING NEEDED FOR SLEEP 11/06/2021 11/06/2021 Inactive melatonin 5 mg tablet RxNorm: 777466 Take 1 Tablet(s) O ral every night at bedtime 11/06/2021 12/31/2021 Inactive Senna Plus 8.6 mg-50 mg tablet RxNorm: 406436 Take 1 Ta blet(s) Oral two times a day 10/16/2021 11/14/2021 Inactive nystatin 100,000 unit/gram topical cream RxNorm: 209335 Apply Application Topical two times a day to lateral foot rash for 2 weeks and as needed for scaling rash 10/16/2021 No Stop Date Active metronidazole 0.75 % lotion RxNorm: 010539 Take Application Top ical QPM to face 10/16/2021 No Stop Date Active pregabalin 25 mg capsule RxNorm: 526039 Take 1 Capsule(s) Oral two times a day 10/16/2021 12/12/2021 Inactive levetiracetam 1,000 mg tablet RxNorm: 304071 Take 1 Tablet(s) O ral QPM 10/16/2021 10/16/2021 Inactive RX QTY LEFT NOT ENOU GH FOR 31 DAYS PLEASE NEW RX+REFILLS THANKS Keppra 500 mg tablet RxNorm: 341765 Take 1 Tablet(s) Or al QAM replaces 1000mg AM dose 10/16/2021 11/26/2021 Inactive polyethylene glycol 3350 17 gram/dose oral powder RxNorm: 87 6193 DRINK 17 GRAMS MIXED INTO 8 OZS. OF JUICE OR WATER TWICE DAILY 10/12/2021 10/12/2021 Inactive ketoconazole 2 % shampoo RxNorm: 477086 APPLY TO FACE TWICE PER WEE K 09/19/2021 09/19/2021 Inactive PrePlus 27 mg iron-1 mg tablet RxNorm: Take 1 Tablet(s) Oral Q D 09/12/2021 11/10/2021 Inactive RX QTY LEFT NOT ENOUGH FOR 9 3 DAYS PLEASE NEW RX+REFILLS THANKS Shantelllle 10 billion cell capsule RxNorm: 553838 Take 1 Capsul e(s) Oral QD 09/10/2021 09/10/2021 Inactive Stimulant Laxative Plus 8.6 mg-50 mg tablet RxNorm: 764291 TAKE 2 TABLETS BY MOUTH TWICE DAILY 08/14/2021 10/15/2021 Inactive PLEASE NEW RX+ REFILLS FOR 31 DAYS THANKS pregabalin 50 mg capsule RxNorm: 890695 TAKE 1 CAPSULE BY MOUTH EACH MORNING 07/15/2021 10/15/2021 Inactive PLEASE NEW RX+REFILL S FOR 31 DAYS. THANKS pregabalin 25 mg capsule RxNorm: 869266 Take 1 Capsule(s) Oral HS 0 07/15/2021 10/15/2021 Inactive PLEASE NEW RX+REFILLS FOR 31 DAYS. THANKS levetiracetam 1,000 mg tablet RxNorm: 828764 Take 1 Tab let(s) Oral two times a day 06/11/2021 10/15/2021 Inactive RX QTY LEFT NOT ENOUGH FOR 31 DAYS PLEASE NEW RX+REFILLS THANKS loratadine 10 mg tablet RxNorm: 817420 TAKE 1 TABLET BY MOUTH DAILY 06/11/2021 06/11/2021 Inactive PLEASE NEW RX+REFILLS FOR 31 DAYS. THANKS Keppra 1,000 mg tablet RxNorm: 195395 Take 1 Tablet(s) Oral two times a day 05/08/2021 05/08/2021 Inactive Keppra 1,000 mg tablet RxNorm: 596490 Take 1 Tablet(s) Oral two times a day 05/08/2021 05/07/2021 Inactive ciclopirox 8 % topical solution RxNorm: 588739 Take Top ical QD to the affected area(s)preferably at bedtime or 8 hours before washing--to toenails 05/08/2021 10/15/2021 Inactive melatonin 5 mg capsule RxNorm: 736760 Take 1 Capsule(s) Oral QPM as needed for sleep 04/25/2021 10/21/2021 Inactive polyethylene glycol 3350 17 gram/dose oral powder RxNorm: 87 6193 DRINK 17 GRAMS MIXED INTO 8 OZS. OF JUICE OR WATER TWICE DAILY 04/24/2021 04/24/2021 Inactive Culturelle 10 billion cell capsule RxNorm: 758066 Take 1 Capsul e(s) Oral QD 04/16/2021 04/16/2021 Inactive pregabalin 25 mg capsule RxNorm: 726357 Take 1 Capsule(s) Oral HS 0 04/13/2021 04/13/2021 Inactive PLEASE NEW RX+REFILLS FOR 31 DAYS. THANKS pregabalin 50 mg capsule RxNorm: 293844 TAKE 1 CAPSULE BY MOUTH EACH MORNING 04/13/2021 04/13/2021 Inactive PLEASE NEW RX+REFILL S FOR 31 DAYS. THANKS fluticasone propionate 50 mcg/actuation nasal spray,suspensi on RxNorm: 2248259 SPRAY 1 SPRAY INTO EACH NOSTRIL TWICE DAILY 03/13/2021 03/13/2021 Inac tive polyethylene glycol 3350 17 gram/dose oral powder RxNorm: 87 6193 DRINK 17 GRAMS MIXED INTO 8 OZS. OF JUICE OR WATER TWICE DAILY 03/05/2021 04/03/2021 Inactive Gavilax 17 gram/dose oral powder RxNorm: 888802 DRINK 1 7 GRAMS MIXED INTO 8 OZS. OF JUICE OR WATER TWICE DAILY 02/27/2021 02/27/2021 Inactive Stimulant Laxative Plus 8.6 mg-50 mg tablet RxNorm: 466180 TAKE 2 TABLETS BY MOUTH TWICE DAILY 02/16/2021 02/16/2021 Inactive Tucks (witch juanita) 50 % topical pads RxNorm: 384370 Ta ke Application Topical four times a day as needed 02/05/2021 No Stop Date Active citalopram 40 mg tablet RxNorm: 534723 Take 1 Tablet(s) Oral QD 08/202003/25/2022 Inactive Culturelle 10 billion cell capsule RxNorm: 899560 Take 1 Capsul e(s) Oral QD 02/05/2021 04/16/2021 Inactive melatonin 5 mg capsule RxNorm: 811293 Take 1 Capsule(s) Oral QPM as needed for sleep 02/05/2021 02/05/2021 Inactive Keppra 750 mg tablet RxNorm: 772689 Take 1 Tablet(s) Or al two times a day replaces 500mg dose 02/05/2021 05/07/2021 Inactive Keppra 500 mg tablet RxNorm: 467950 Take 1 Tablet(s) Oral two t imes a day 01/17/2021 02/04/2021 Inactive Keppra 500 mg tablet RxNorm: 235134 Take 1 Tablet(s) Oral two t imes a day 01/17/2021 01/17/2021 Inactive Culturelle 10 billion cell capsule RxNorm: 117963 Take 1 Capsule(s) Oral QD as needed 01/16/2021 02/04/2021 Inactive levofloxacin 250 mg tablet RxNorm: 470493 Take 1 Tablet(s) Oral QD 01/04/2021 01/13/2021 Inactive cranberry 450 mg tablet RxNorm: Take 1 Tablet(s) Oral tw o times a day 12/14/2020 No Stop Date Active Gold Rosario Medicated 0.8 %-5 % topical powder RxNorm: 498431 Top ical as needed 12/14/2020 No Stop Date Active hydrocortisone 1 % topical cream RxNorm: 231941 Topical as needed 1 No Stop Date Active Gavilax 17 gram/dose oral powder RxNorm: 947298 Give 17 Gram(s) Oral two times a day in 8 ounces of juice/water 12/14/2020 10/15/2021 Inactive Culturelle 10 billion cell capsule RxNorm: 107309 Take 1 Capsule(s) Oral QD as needed 12/14/2020 01/16/2021 Inactive mirtazapine 15 mg tablet RxNorm: 168174 Take 1 Tablet(s ) Oral every night at bedtime 12/14/2020 03/25/2022 Inactive aripiprazole 10 mg tablet RxNorm: 604263 Take 1 Tablet(s) Oral QD 1 03/25/2022 Inactive pregabalin 25 mg capsule RxNorm: 294904 Take 1 Capsule(s) Oral HS 1 12/13/2020 Inactive loratadine 10 mg tablet RxNorm: 319762 TAKE 1 TABLET BY MOUTH DAILY 12/13/2020 12/13/2020 Inactive pregabalin 50 mg capsule RxNorm: 199425 TAKE 1 CAPSULE BY MOUTH EACH MORNING 12/13/2020 12/13/2020 Inactive Gavilax 17 gram/dose oral powder RxNorm: 544930 DRINK 1 7 GRAMS MIXED INTO 8 OZS. OF JUICE OR WATER TWICE DAILY 12/05/2020 12/13/2020 Inactive fluticasone propionate 50 mcg/actuation nasal spray,suspensi on RxNorm: 9369342 USE 1 SPRAY IN EACH NOSTRIL TWICE DAILY 11/16/2020 11/16/2020 Inactive pregabalin 25 mg capsule RxNorm: 163850 Take 1 Capsule(s) Oral HS 0 11/12/2020 11/12/2020 Inactive pregabalin 50 mg capsule RxNorm: 516576 TAKE 1 CAPSULE BY MOUTH EACH MORNING 11/12/2020 11/12/2020 Inactive Gavilax 17 gram/dose oral powder RxNorm: 921059 DRINK 1 7 GRAMS MIXED INTO 8 OZS. OF JUICE OR WATER TWICE DAILY 10/16/2020 11/14/2020 Inactive PrePlus 27 mg iron-1 mg tablet RxNorm: Take 1 Tablet(s) Oral Q D 10/12/2020 11/11/2020 Inactive pregabalin 50 mg capsule RxNorm: 023709 TAKE 1 CAPSULE BY MOUTH EACH MORNING 10/12/2020 10/12/2020 Inactive Stimulant Laxative Plus 8.6 mg-50 mg tablet RxNorm: 173301 TAKE 2 TABLETS BY MOUTH TWICE DAILY 10/12/2020 10/12/2020 Inactive pregabalin 25 mg capsule RxNorm: 769729 Take 1 Capsule(s) Oral HS 0 10/12/2020 10/12/2020 Inactive loratadine 10 mg tablet RxNorm: 220515 TAKE 1 TABLET BY MOUTH DAILY 09/12/2020 09/12/2020 Inactive ketoconazole 2 % shampoo RxNorm: 854214 1 Application T opical twice weekly to face 07/20/2020 07/20/2020 Inactive OUT OF REFILLS Senna-S 8.6 mg-50 mg tablet RxNorm: 360293 TAKE 2 TABLETS BY [facility] TWICE DAILY 07/17/2020 07/17/2020 Inactive PLEASE NEW RX+REFILL S FOR 31 DAYS. THANKS Miralax 17 gram oral powder packet RxNorm: 948225 TAKE 17 GRAMS MIXED INTO 8 OZS. OF JUICE OR WATER TWICE DAILY 06/27/2020 12/13/2020 Inactive OUT OF REFILLS Lyrica 25 mg capsule RxNorm: 115962 TAKE 1 CAPSULE BY M OUTH DAILY AT BEDTIME Capsule(s) Oral 06/14/2020 06/14/2020 Inactive Lyrica 50 mg capsule RxNorm: 616077 Capsule(s) Oral GM E 1 CAPSULE BY MOUTH EACH MORNING 06/14/2020 06/14/2020 Inactive fluticasone propionate 50 mcg/actuation nasal spray,suspensi on RxNorm: 2638837 1 [place] Nasal two times a day 06/06/2020 06/06/2020 Inactive OUT OF REFILLS Plus 27 mg-1 mg tablet RxNorm: 1 Tablet(s) PO Q D 1 Tablet(s) Oral QD 05/10/2020 10/15/2021 Inactive Senna-S 8.6 mg-50 mg tablet RxNorm: 774394 TAKE 2 TABLETS BY MO UTH TWICE DAILY 04/10/2020 07/11/2020 Inactive PLEASE NEW RX+REFILL S FOR 31 DAYS. THANKS loratadine 10 mg tablet RxNorm: 358110 TAKE 1 TABLET BY MOUTH DAILY 04/10/2020 04/10/2020 Inactive PLEASE NEW RX+REFILLS FOR 31 DAYS. THANKS ketoconazole 2 % shampoo RxNorm: 012576 1 Application T opical twice weekly to face 03/22/2020 07/19/2020 Inactive OUT OF REFILLS Lyrica 50 mg capsule RxNorm: 789189 Capsule(s) Oral GM E 1 CAPSULE BY MOUTH EACH MORNING 02/10/2020 06/12/2020 Inactive Lyrica 25 mg capsule RxNorm: 086508 TAKE 1 CAPSULE BY M OUTH DAILY AT BEDTIME Capsule(s) Oral 02/10/2020 06/08/2020 Inactive Senna-S 8.6 mg-50 mg tablet RxNorm: 790950 TAKE 2 TABLETS BY MO UTH TWICE DAILY 01/13/2020 04/09/2020 Inactive PLEASE NEW RX+REFILL S FOR 31 DAYS. THANKS Miralax 17 gram oral powder packet RxNorm: 083274 TAKE 17 GRAMS MIXED INTO 8 OZS. OF JUICE OR WATER TWICE DAILY 01/10/2020 06/26/2020 Inactive OUT OF REFILLS Miralax 17 gram oral powder packet RxNorm: 382593 TAKE 17 GRAMS MIXED INTO 8 OZS. OF JUICE OR WATER TWICE DAILY 12/15/2019 01/09/2020 Inactive OUT OF REFILLS ketoconazole 2 % shampoo RxNorm: 044226 APPLY TO FACE TWICE PER WEE K 12/09/2019 03/21/2020 Inactive OUT OF REFILLS Plus 27 mg-1 mg tablet RxNorm: 1 Tablet(s) PO Q D 1 Tablet(s) Oral QD 11/17/2019 05/09/2020 Inactive loratadine 10 mg tablet RxNorm: 842401 TAKE 1 TABLET BY MOUTH DAILY 11/17/2019 04/09/2020 Inactive PLEASE NEW RX+REFILLS FOR 31 DAYS. THANKS Lyrica 50 mg capsule RxNorm: 945558 Capsule(s) Oral GM E 1 CAPSULE BY MOUTH EACH MORNING 10/18/2019 02/08/2020 Inactive Lyrica 25 mg capsule RxNorm: 107675 TAKE 1 CAPSULE BY M OUT DAILY AT BEDTIME Capsule(s) Oral 10/18/2019 02/13/2020 Inactive Senna-S 8.6 mg-50 mg tablet RxNorm: 530694 TAKE 2 TABLETS BY MO UTH TWICE DAILY 10/18/2019 01/12/2020 Inactive PLEASE NEW RX+REFILL S FOR 31 DAYS. THANKS Bactrim DS 800 mg-160 mg tablet RxNorm: 140602 1 Tablet(s) Oral two times a day 10/04/2019 10/10/2019 Inactive Vitamin C 500 mg tablet RxNorm: 950228 1 Tablet(s) Oral QD 09/22/1912/31/2021 Inactive citalopram 10 mg tablet RxNorm: 179934 1 Tablet(s) Oral QD 09/22/1902/04/2021 Inactive omeprazole 40 mg capsule,delayed release RxNorm: 621991 1 Capsule(s) Oral QD for reflux 08/16/2019 09/21/2019 Inactive Clindagel 1 % topical gel, once daily RxNorm: 061656 Ap plication Topical QPM to face rash or prn for rosacea 07/21/2019 12/13/2020 Inactive loratadine 10 mg tablet RxNorm: 147385 TAKE 1 TABLET BY MOUTH DAILY 07/19/2019 11/15/2019 Inactive PLEASE NEW RX+REFILLS FOR 31 DAYS. THANKS Senna-S 8.6 mg-50 mg tablet RxNorm: 080950 TAKE 2 TABLETS BY MO [facility] TWICE A DAY 07/19/2019 10/17/2019 Inactive PLEASE NEW RX+REFILL S FOR 31 DAYS. THANKS fluticasone propionate 50 mcg/actuation nasal spray,suspensi on RxNorm: 8160572 USE 1 SPRAY IN EACH NOSTRIL TWICE DAILY 07/01/2019 06/05/2020 Inactive OUT OF REFILLS Lyrica 50 mg capsule RxNorm: 664454 Capsule(s) Oral GM E 1 CAPSULE BY MOUTH EACH MORNING 06/16/2019 10/16/2019 Inactive Lyrica 25 mg capsule RxNorm: 980074 TAKE 1 CAPSULE BY M OUT DAILY AT BEDTIME Capsule(s) Oral 06/16/2019 10/12/2019 Inactive Plus 27 mg-1 mg tablet RxNorm: 1 Tablet(s) PO Q D 1 Tablet(s) Oral QD 2019 11/16/2019 Inactive triamcinolone acetonide 0.025 % topical cream RxNorm: 886709 4 1 Application Topical two times a day apply thin layer to cheeks 05/03/2019 0 Inactive Lyrica 50 mg capsule RxNorm: 647991 Capsule(s) TAKE 1 C APSULE BY MOUTH EACH MORNING 02/22/2019 06/25/2019 Inactive Lyrica 25 mg capsule RxNorm: 611656 TAKE 1 CAPSULE BY MOUTH DOMINICK LY AT BEDTIME 02/22/2019 06/21/2019 Inactive loratadine 10 mg tablet RxNorm: 896984 TAKE 1 TABLET BY MOUTH DAILY 01/21/2019 03/23/2019 Inactive PLEASE NEW RX+REFILLS FOR 31 DAYS. THANKS Senna-S 8.6 mg-50 mg tablet RxNorm: 561196 TAKE 2 TABLETS BY MO [facility] TWICE A DAY 01/21/2019 07/18/2019 Inactive PLEASE NEW RX+REFILL S FOR 31 DAYS. THANKS Macrobid 100 mg capsule RxNorm: 861961 1 Capsule(s) Oral two ti mes a day 01/11/2019 01/10/2019 Inactive Macrobid 100 mg capsule RxNorm: 104392 1 Capsule(s) Oral two ti mes a day 01/11/2019 01/21/2019 Inactive Cipro 250 mg tablet RxNorm: 928307 1 Tablet(s) Oral two times a day 01/05/2019 01/12/2019 Inactive Senna-S 8.6 mg-50 mg tablet RxNorm: 964114 TAKE 2 TABLETS BY [facility] TWICE A DAY 12/21/2018 01/20/2019 Inactive NEED A NEW RX+REFILL S PLEASE FOR 31 DAYS. THANKS Plus 27 mg-1 mg tablet RxNorm: 1 Tablet(s) PO QD 11/0205/20/2019 Inactive doxycycline hyclate 100 mg capsule RxNorm: 5337174 1 Cap edison(s) Oral two times a day 11/23/2018 11/30/2018 Inactive doxycycline hyclate 100 mg capsule RxNorm: 7641501 1 Cap edison(s) Oral two times a day 11/23/2018 11/22/2018 Inactive loratadine 10 mg tablet RxNorm: 035493 1 Tablet(s) PO QD 11/23/201803/22/2018 Inactive doxycycline hyclate 100 mg capsule RxNorm: 9372354 1 Cap edison(s) Oral two times a day 11/23/2018 11/22/2018 Inactive Macrobid 100 mg capsule RxNorm: 141600 1 Capsule(s) PO BID 11/05/1911/10/2018 Inactive Macrobid 100 mg capsule RxNorm: 764129 1 Capsule(s) PO BID 11/05/1911/03/2018 Inactive Bactrim DS 800 mg-160 mg tablet RxNorm: 673562 1 Tablet(s) PO BID 0 10/29/2018 10/28/2018 Inactive Bactrim DS 800 mg-160 mg tablet RxNorm: 144375 1 Tablet(s) PO BID 0 10/29/2018 11/03/2018 Inactive Miralax 17 gram oral powder packet RxNorm: 033838 TAKE 17 GRAMS MIXED INTO 8 OZS. OF JUICE OR WATER TWICE DAILY 10/15/2018 01/15/2019 Inactive OUT OF REFILLS fluconazole 100 mg tablet RxNorm: 136556 1 Tablet(s) PO QD 10/13/19 10/18/2018 Inactive clotrimazole-betamethasone 1 %-0.05 % topical cream RxNorm: 703637 Application TOP BID to foot rash for 1-2 weeks 10/12/2018 09/21/2019 Inactive fluticasone propionate 50 mcg/actuation nasal spray,suspensi on RxNorm: 0352850 USE 1 SPRAY IN EACH NOSTRIL TWICE DAILY 09/01/2018 12/29/2018 Inactive Senna-S 8.6 mg-50 mg tablet RxNorm: 405440 TAKE 2 TABLETS BY [facility] TWICE A DAY 08/19/2018 12/20/2018 Inactive nystatin 100,000 unit/gram topical cream RxNorm: 378420 1 Gram( s) TOP BID 08/10/2018 08/09/2018 Inactive acyclovir 800 mg tablet RxNorm: 578248 1 Tablet(s) PO 5x day 201808/09/2018 Inactive nystatin 100,000 unit/gram topical cream RxNorm: 050451 1 Gram( s) TOP BID 08/10/2018 08/19/2018 Inactive acyclovir 800 mg tablet RxNorm: 192359 1 Tablet(s) PO 5x day 201808/16/2018 Inactive Miralax 17 gram oral powder packet RxNorm: 135544 TAKE 17 GRAMS MIXED INTO 8 OZS. OF JUICE OR WATER TWICE DAILY 07/31/2018 10/14/2018 Inactive Lyrica 25 mg capsule RxNorm: 570434 TAKE 1 CAPSULE BY MOUTH DOMINICK LY AT BEDTIME 07/16/2018 08/14/2018 Inactive nystatin 100,000 unit/gram topical powder RxNorm: 056537 1 Application TOP BID to upper thighs for 14 days 06/29/2018 07/12/2018 Inactive nystatin 100,000 unit/gram topical powder RxNorm: 278376 1 Application TOP BID to upper thighs for 14 days 06/29/2018 06/28/2018 Inactive Plus 27 mg-1 mg tablet RxNorm: 1 Tablet(s) PO QD 06/0111/22/2018 Inactive loratadine 10 mg tablet RxNorm: 532449 1 Tablet(s) PO QD 06/16/2018 0 11/22/2018 Inactive Miralax 17 gram oral powder packet RxNorm: 657041 TAKE 17 GRAMS MIXED INTO 8 OZS. OF JUICE OR WATER TWICE DAILY 05/19/2018 07/30/2018 Inactive ketoconazole 2 % shampoo RxNorm: 591266 APPLY TO FACE TWICE PER WEE K 05/04/2018 11/29/2018 Inactive Macrobid 100 mg capsule RxNorm: 779608 1 Capsule(s) PO BID 04/17/1904/16/2018 Inactive Macrobid 100 mg capsule RxNorm: 665728 1 Capsule(s) PO BID 04/17/1904/26/2018 Inactive Zithromax Z-Vu 250 mg tablet RxNorm: 954169 Tablet(s) PO As Di rected 02/26/2018 03/02/2018 Inactive Tessalon Perles 100 mg capsule RxNorm: 116882 1 Capsule (s) PO TID as needed for cough 02/26/2018 01/04/2019 Inactive Senna-S 8.6 mg-50 mg tablet RxNorm: 368338 2 Tablet(s) PO BID 02/1608/14/2018 Inactive Miralax 17 gram oral powder packet RxNorm: 956210 TAKE 17 GRAMS MIXED INTO 8 OZS. OF JUICE OR WATER TWICE DAILY 01/08/2018 04/10/2018 Inactive Miralax 17 gram oral powder packet RxNorm: 574714 1 Tab let(s) PO BID TAKE 17 GRAMS MIXED INTO 8 OZS. OF JUICE OR WATER TWICE DAILY 11/17/20172017 Inactive Miralax 17 gram oral powder packet RxNorm: 375008 1 Tab let(s) PO QD TAKE 17 GRAMS MIXED INTO 8 OZS. OF JUICE OR WATER once DAILY 11/04/2017 021 Inactive polymyxin B sulfate 10,000 unit-trimethoprim 1 mg/mL eye bandar ps RxNorm: 615553 2 Drop(s) ophthalmic (eye) Q4H while awake 10/29/2017 11/04/2017 Inactiv e Lyrica 25 mg capsule RxNorm: 618353 TAKE 1 CAPSULE BY MOUTH EAC H EVENING 10/20/2017 07/16/2018 Inactive Senna-S 8.6 mg-50 mg tablet RxNorm: 288849 2 Tablet(s) PO BID 10/2002/15/2018 Inactive Lyrica 50 mg capsule RxNorm: 212068 TAKE 1 CAPSULE BY MOUTH EAC H MORNING 10/20/2017 01/20/2018 Inactive loratadine 10 mg tablet RxNorm: 449443 Tablet(s) TAKE 1 TABLET BY MOUTH DAILY 10/20/2017 06/16/2018 Inactive Plus 27 mg-1 mg tablet RxNorm: Tablet(s) TAKE 1 TABLET BY MOUTH DAILY 10/20/2017 06/16/2018 Inactive nystatin 100,000 unit/gram topical cream RxNorm: 267403 Gram(s) TOP BID for 2 weeks 09/16/2017 09/21/2019 Inactive loratadine 10 mg tablet RxNorm: 588558 TAKE 1 TABLET BY MOUTH DAILY 08/18/2017 10/20/2017 Inactive Plus 27 mg-1 mg tablet RxNorm: TAKE 1 TABLET BY MOUTH DAILY 08/18/2017 10/20/2017 Inactive Miralax 17 gram oral powder packet RxNorm: 741686 1 Tab let(s) PO BID TAKE 17 GRAMS MIXED INTO 8 OZS. OF JUICE OR WATER TWICE DAILY 06/13/20172017 Inactive Miralax 17 gram oral powder packet RxNorm: 690842 1 Tab let(s) PO BID TAKE 17 GRAMS MIXED INTO 8 OZS. OF JUICE OR WATER TWICE DAILY 06/13/20172020 Inactive doxycycline hyclate 100 mg capsule RxNorm: 5747834 1 Capsule(s) PO BID 06/06/2017 06/05/2017 Inactive Cipro 250 mg tablet RxNorm: 403743 1 Tablet(s) PO BID 06/06/201706/01 Inactive Cipro 250 mg tablet RxNorm: 767024 1 Tablet(s) PO BID 06/06/20170 07/2017 Inactive doxycycline hyclate 100 mg capsule RxNorm: 0972534 1 Capsule(s) PO BID 06/06/2017 06/12/2017 Inactive Senna-S 8.6 mg-50 mg tablet RxNorm: 076199 2 Tablet(s) PO BID 05/1910/20/2017 Inactive Miralax 17 gram oral powder packet RxNorm: 715660 1 Tab let(s) PO BID TAKE 17 GRAMS MIXED INTO 8 OZS. OF JUICE OR WATER TWICE DAILY 01/06/20172017 Inactive Senna-S 8.6 mg-50 mg tablet RxNorm: 364111 2 Tablet(s) PO BID 12/1105/19/2017 Inactive Abilify 5 mg tablet RxNorm: 509418 1 Tablet(s) PO QHS 11/21/201612/01 Inactive docusate sodium 100 mg capsule RxNorm: 1181325 1 Capsule(s) PO BID 09/17/2016 09/21/2019 Inactive [AttnRPh: Saving apply/adjud icate RxGRP:SG20 RxBIN:[id number] RxPCN:HT ID#:[id number]] loratadine 10 mg tablet RxNorm: 070248 1 Tablet(s) PO QD 09/17/2016 0 08/17/2017 Inactive [AttnRPh: Saving apply/adjudicate RxGRP: SG20 RxBIN:[id number] RxPCN:HT ID#:[id number]] Plus 27 mg-1 mg tablet RxNorm: 1 Tablet(s) PO QD 08/3108/17/2017 Inactive [AttnRPh: Saving apply/adjud icate RxGRP:SG20 RxBIN:[id number] RxPCN:HT ID#:[id number]] Calcium + D 600 mg (1,500 mg)-200 unit tablet RxNorm: 693547 1 Tablet(s) PO QD 09/17/2016 09/21/2019 Inactive ketoconazole 2 % shampoo RxNorm: 720435 APPLY TO FACE TWICE PER WEE K 08/26/2016 02/21/2017 Inactive fluticasone propionate 50 mcg/actuation nasal spray,suspensi on RxNorm: 1023817 [facility] USE 1 SPRAY IN EACH NOSTRIL TWICE A DAY 07/30/2016 01/25/2017 In active Miralax 17 gram oral powder packet RxNorm: 839526 TAKE 17 GRAMS MIXED INTO 8 OZS. OF JUICE OR WATER TWICE DAILY 07/30/2016 01/06/2017 Inactive Senna-S 8.6 mg-50 mg tablet RxNorm: 830647 2 Tablet(s) PO BID 07/1512/10/2016 Inactive Lyrica 50 mg capsule RxNorm: 921877 TAKE 1 CAPSULE BY MOUTH EAC H MORNING 07/11/2016 08/09/2016 Inactive Miralax 17 gram oral powder packet RxNorm: 660172 TAKE 17 GRAMS MIXED INTO 8 OZS. OF JUICE OR WATER TWICE DAILY 07/04/2016 07/29/2016 Inactive Miralax 17 gram oral powder packet RxNorm: 323796 TAKE 17 GRAMS MIXED INTO 8 OZS. OF JUICE OR WATER TWICE DAILY 07/04/2016 08/03/2016 Inactive Miralax 17 gram oral powder packet RxNorm: 594785 TAKE 17 GRAMS MIXED INTO 8 OZS. OF JUICE OR WATER TWICE DAILY 06/13/2016 07/03/2016 Inactive benztropine 2 mg tablet RxNorm: 223820 1 Tablet(s) PO BID 04/15/2016 09/21/2019 Inactive ketoconazole 2 % shampoo RxNorm: 709491 APPLY TO FACE TWICE PER WEE K 04/01/2016 08/25/2016 Inactive ketoconazole 2 % shampoo RxNorm: 683558 APPLY TO FACE TWICE PER WEE K 04/01/2016 12/13/2020 Inactive Miralax 17 gram oral powder packet RxNorm: 545569 TAKE 17 GRAMS MIXED INTO 8 OZS. OF JUICE OR WATER TWICE DAILY 03/29/2016 06/12/2016 Inactive calcium carbonate 600 mg calcium (1,500 mg)-vit D3 1,0 00 unit capsule RxNorm: 7794072 1 Capsule(s) PO QD 03/15/2016 09/17/2016 Inactive fluticasone 50 mcg/actuation nasal spray,suspension RxNorm: 1417351 [facility] USE 1 SPRAY IN EACH NOSTRIL TWICE A DAY 03/04/2016 07/29/2016 Inactive Miralax 17 gram oral powder packet RxNorm: 578222 1 Uni t Dose PO BID in 6-8oz water daily 02/28/2016 03/28/2016 Inactive attnrph: saving apply/adjudicate rxgrp:sg20 rxbin:[id number] rxpcn: id#:[id number] Senna-S 8.6 mg-50 mg tablet RxNorm: 640028 TAKE TWO TABLETS ORA LLY TWICE A DAY 01/18/2016 07/15/2016 Inactive ketoconazole 2 % shampoo RxNorm: 027890 APPLY TO FACE TWICE PER WEE K 12/04/2015 03/31/2016 Inactive benztropine 2 mg tablet RxNorm: 519561 1 Tablet(s) PO BID 11/20/2015 04/14/2016 Inactive cefuroxime axetil 250 mg tablet RxNorm: 662361 1 Tablet(s) PO BID 0 11/13/2015 11/19/2015 Inactive cefuroxime axetil 250 mg tablet RxNorm: 439655 1 Tablet(s) PO BID 0 11/13/2015 11/12/2015 Inactive ketoconazole 2 % shampoo RxNorm: 473718 APPLY TO FACE TWICE PER SADIE K 11/08/2015 12/03/2015 Inactive loratadine 10 mg tablet RxNorm: 610938 1 Tablet(s) PO QD 10/16/2015 0 09/16/2016 Inactive [AttnRPh: Saving apply/adjudicate RxGRP: SG20 RxBIN:[id number] RxPCN:HT ID#:[id number]] docusate sodium 100 mg capsule RxNorm: 4054587 1 Capsule(s) PO BID 10/16/2015 09/17/2016 Inactive [AttnRPh: Saving apply/adjud icate RxGRP:SG20 RxBIN:[id number] RxPCN:HT ID#:[id number]] Plus 27 mg-1 mg tablet RxNorm: 1 Tablet(s) PO QD 10/0109/16/2016 Inactive [AttnRPh: Saving apply/adjud icate RxGRP:SG20 RxBIN:[id number] RxPCN:HT ID#:[id number]] Miralax 17 gram oral powder packet RxNorm: 195917 1 Uni t Dose PO BID in 6-8oz water daily 09/29/2015 09/28/2015 Inactive attnrph: saving apply/adjudicate rxgrp:sg20 rxbin:[id number] rxpcn:ht id#:[id number] fluticasone 50 mcg/actuation nasal spray,suspension RxNorm: 3409789 USE 1 SPRAY IN EACH NOSTRIL TWICE A DAY 09/12/2015 03/04/2016 Inactive benztropine 2 mg tablet RxNorm: 869664 1 Tablet(s) PO BID 09/11/2015 11/20/2015 Inactive benztropine 2 mg tablet RxNorm: 109581 1 Tablet(s) PO BID 07/25/2015 09/10/2015 Inactive ketoconazole 2 % shampoo RxNorm: 052731 APPLY TO FACE TWICE PER WEE K 07/24/2015 11/07/2015 Inactive Senna-S 8.6 mg-50 mg tablet RxNorm: 417833 TAKE TWO TABLETS ORA LLY TWICE A DAY 07/13/2015 01/14/2016 Inactive ketoconazole 2 % shampoo RxNorm: 440339 APPLY TO FACE TWICE PER WEE K 06/30/2015 07/23/2015 Inactive Miralax 17 gram oral powder packet RxNorm: 386484 1 Uni t Dose PO BID in 6-8oz water daily 06/19/2015 09/29/2015 Inactive attnrph: saving apply/adjudicate rxgrp:sg20 rxbin:[id number] rxpcn: id#:[id number] fluticasone 50 mcg/actuation nasal spray,suspension RxNorm: 030955 1 [facility] NASAL BID 05/29/2015 09/11/2015 Inactive Opcon-A 0.69920 %-0.315 % eye drops RxNorm: 6637454 2 Drop(s) OP H PRN as needed 04/26/2015 04/25/2015 Inactive Culturelle 10 billion cell capsule RxNorm: 335164 1 Capsule(s) PO QD prn 04/26/2015 09/21/2019 Inactive calcium carbonate-vitamin D3 600 mg (1,500 mg)-1,000 u nit capsule RxNorm: 0071966 1 Capsule(s) PO QD 04/24/2015 07/06/2015 Inactive Senna-S 8.6 mg-50 mg tablet RxNorm: 767556 TAKE TWO TABLETS ORA LLY TWICE A DAY 04/24/2015 07/12/2015 Inactive ketoconazole 2 % shampoo RxNorm: 837265 1 Application TOP twice weekly to face 04/11/2015 06/29/2015 Inactive Senna-S 8.6 mg-50 mg tablet RxNorm: 432888 2 Tablet(s) PO QD TAKE 2 TABLETS ORALLY TWICE A DAY 01/20/2015 04/23/2015 Inactive out of refill s Miralax 17 gram oral powder packet RxNorm: 694245 1 Uni t Dose PO BID in 6-8oz water daily 11/21/2014 12/13/2020 Inactive attnrph: saving apply/adjudicate rxgrp:sg20 rxbin:[id number] rxpcn: id#:[id number] Flonase Allergy Relief 50 mcg/actuation nasal spray,suspensi on RxNorm: 2 [facility] NASAL QHS 11/21/2014 07/22/2016 Inactive azithromycin 250 mg tablet RxNorm: 236174 2 Tablet(s) P O on day one, then one tablet on days 2 - 5 11/18/2014 12/20/2014 Inactive azithromycin 250 mg tablet RxNorm: 861326 2 Tablet(s) P O on day one, then one tablet on days 2 - 5 11/17/2014 11/17/2014 Inactive fluticasone 50 mcg/actuation nasal spray,suspension RxNorm: 056929 1 [facility] NASAL BID 11/09/2014 11/08/2014 Inactive Plus 27 mg-1 mg tablet RxNorm: 1 Tablet(s) PO QD 10/0110/13/2015 Inactive [AttnRPh: Saving apply/adjud icate RxGRP:SG20 RxBIN:[id number] RxPCN: ID#:[id number]] Plus 27 mg-1 mg tablet RxNorm: 1 Tablet(s) PO QD 09/0110/18/2014 Inactive [AttnRPh: Saving apply/adjud icate RxGRP:SG20 RxBIN:[id number] RxPCN:HT ID#:[id number]] nystatin-triamcinolone 100,000 unit/g-0.1 % topical cream RxNorm : 2008167 BID 09/26/2014 10/09/2014 Inactive docusate sodium 100 mg capsule RxNorm: 1762800 1 Capsule(s) PO BID 09/26/2014 10/15/2015 Inactive [AttnRPh: Saving apply/adjud icate RxGRP:SG20 RxBIN:[id number] RxPCN:HT ID#:[id number]] trihexyphenidyl 2 mg tablet RxNorm: 016276 1 Tablet(s) PO BID 09/2612/20/2014 Inactive Miralax 17 gram oral powder packet RxNorm: 388699 1 Uni t Dose PO BID in 6-8oz water daily 09/26/2014 11/20/2014 Inactive attnrph: saving apply/adjudicate rxgrp:sg20 rxbin:[id number] rxpcn:ht id#:[id number] loratadine 10 mg tablet RxNorm: 035739 Tablet(s) 1 Tabl et(s) PO QD 1 Tablet(s) PO QD 09/26/2014 10/16/2015 Inactive [AttnRPh: Saving apply/adjudicate RxGRP:SG20 RxBIN:289863 RxPCN:HT ID#:[id number]] ketoconazole 2 % shampoo RxNorm: 900609 1 BIW lather and rinse after 10 min 09/26/2014 04/10/2015 Inactive Calcium + D 600 mg (1,500 mg)-200 unit tablet RxNorm: 541513 1 Tablet(s) PO QD 09/26/2014 09/19/2015 Inactive Senna-S 8.6 mg-50 mg tablet RxNorm: 994694 2 Tablet(s) PO QD TAKE 2 TABLETS ORALLY TWICE A DAY 09/26/2014 01/19/2015 Inactive out of refill s Senna-S 8.6 mg-50 mg tablet RxNorm: 260073 2 Tablet(s) PO QD TAKE 2 TABLETS ORALLY TWICE A DAY 07/20/2014 09/25/2014 Inactive out of refill s [AttnRPh: Saving apply/adjudicate RxGRP:SG20 RxBIN:[id number] RxPCN:HT ID#:[id number]] loratadine 10 mg tablet RxNorm: 383707 1 Tablet(s) PO QD 1 Tabl et(s) PO QD 04/25/2014 09/25/2014 Inactive [AttnRPh: Saving deyanira ly/adjudicate RxGRP:SG20 RxBIN:[id number] RxPCN:HT ID#:[id number]] docusate sodium 100 mg capsule RxNorm: 9830785 1 Capsule(s) PO BID 04/04/2014 09/25/2014 Inactive [AttnRPh: Saving apply/adjud icate RxGRP:SG20 RxBIN:[id number] RxPCN:HT ID#:[id number]] Senna-S 8.6 mg-50 mg tablet RxNorm: 726867 2 Tablet(s) PO QD TAKE 2 TABLETS ORALLY TWICE A DAY 03/15/2014 07/19/2014 Inactive OUT OF REFILL S [AttnRPh: Saving apply/adjudicate RxGRP:SG20 RxBIN:[id number] RxPCN:HT ID#:[id number]] nystatin 100,000 unit/gram topical cream RxNorm: 306608 Applica tion TOP BID 03/15/2014 07/22/2016 Inactive [AttnRPh: Saving deyanira ly/adjudicate RxGRP:SG20 RxBIN:[id number] RxPCN:HT ID#:[id number]] Miralax 17 gram oral powder packet RxNorm: 701993 1 Uni t Dose PO BID in 6-8oz water daily 03/15/2014 09/25/2014 Inactive AttnRPh: Saving apply/adjudicate RxGRP:SG20 RxBIN:[id number] RxPCN:HT ID#:[id number] [AttnRPh: Saving apply/adjudicate RxGRP:SG20 RxBIN:265308 RxPCN:HT ID#:[id number]] Senna-S 8.6 mg-50 mg tablet RxNorm: 542638 2 Tablet(s) PO QD TAKE 2 TABLETS ORALLY TWICE A DAY 03/09/2014 03/14/2014 Inactive OUT OF REFILL S loratadine 10 mg tablet RxNorm: 886229 1 Tablet(s) PO QD 1 Tabl et(s) PO QD 10/28/2013 04/24/2014 Inactive [AttnRPh: Saving deyanira ly/adjudicate RxGRP:SG20 RxBIN:665461 RxPCN:HT ID#:[id number]] docusate sodium 100 mg capsule RxNorm: 5791759 1 Capsule(s) PO BID 10/21/2013 04/03/2014 Inactive [AttnRPh: Saving apply/adjud icate RxGRP:SG20 RxBIN:912421 RxPCN:HT ID#:[id number]] Plus 27 mg-1 mg tablet RxNorm: 1 Tablet(s) PO QD 06/201309/25/2014 Inactive [AttnRPh: Saving apply/adjud icate RxGRP:SG20 RxBIN:840306 RxPCN:HT ID#:[id number]] Calcium + D 600 mg (1,500)-200 unit tablet RxNorm: 449125 1 Tab let(s) PO QD 09/21/2013 09/25/2014 Inactive loratadine 10 mg tablet RxNorm: 320861 1 Tablet(s) PO QD 1 Tabl et(s) PO QD 07/06/2013 10/28/2013 Inactive docusate sodium 100 mg capsule RxNorm: 9366006 1 Capsule(s) PO BID 04/12/2013 10/21/2013 Inactive Senna-S 8.6 mg-50 mg tablet RxNorm: 481934 2 Tablet(s) PO BID 01/0503/09/2014 Inactive loratadine 10 mg tablet RxNorm: 011871 1 Tablet(s) PO QD 01/04/2013 0 07/06/2013 Inactive Senna-S 8.6 mg-50 mg tablet RxNorm: 182991 2 Tablet(s) PO BID 01/0401/04/2013 Inactive loratadine 10 mg tablet RxNorm: 9242921 1 Tablet(s) PO QD 10/05/2012 01/04/2013 Inactive Senna-S 8.6 mg-50 mg tablet RxNorm: 512161 2 Tablet(s) PO BID 10/0501/04/2013 Inactive Calcium + D 600 mg (1,500)-200 unit tablet RxNorm: 115463 1 Tab let(s) PO QD 09/11/2012 09/21/2013 Inactive docusate sodium 100 mg capsule RxNorm: 0051030 1 Capsule(s) PO BID 09/10/2012 03/08/2013 Inactive Plus 27 mg-1 mg tablet RxNorm: 1 Tablet(s) PO QD 08/3109/04/2013 Inactive Senna-S 8.6 mg-50 mg tablet RxNorm: 676571 2 Tablet(s) PO BID 09/1010/04/2012 Inactive loratadine 10 mg tablet RxNorm: 4029799 1 Tablet(s) PO QD 09/10/2012 09/09/2012 Active divalproex ER 500 mg tablet,extended release 24 hr RxNorm: 1 080630 1 Tablet(s) PO BID 09/10/2012 09/21/2019 Inactive Nasonex 50 mcg/actuation [facility] RxNorm: 473289 1 [facility] NASAL BID 07/22/2016 Inactive Depakote 500 mg tablet,delayed release RxNorm: 4355735 1 Tablet( s) PO BID 08/10/2012 12/20/2014 Inactive loratadine 10 mg tablet RxNorm: 5441191 1 Tablet(s) PO QD 06/29/2012 09/09/2012 Inactive docusate sodium 100 mg capsule RxNorm: 6598270 1 Capsule(s) PO BID 06/29/2012 09/09/2012 Inactive divalproex 250 mg tablet,delayed release RxNorm: 1671274 1 Table t(s) PO QPM 06/08/2012 09/21/2019 Inactive Depakote 500 mg tablet,delayed release RxNorm: 7722402 1 Tablet( s) PO BID 04/13/2012 07/11/2012 Inactive Senna-S 8.6 mg-50 mg tablet RxNorm: 315947 2 Tablet(s) PO BID 03/1604/14/2012 Inactive Plus 27 mg-1 mg tablet RxNorm: 1 Tablet(s) PO QD 01/3109/09/2012 Inactive divalproex ER 500 mg tablet,extended release 24 hr RxNorm: 1 367873 1 Tablet(s) PO BID 02/10/2012 04/09/2012 Inactive divalproex 250 mg tablet,delayed release RxNorm: 8345336 1 Table t(s) PO QPM 09/30/2011 04/26/2012 Inactive Nasonex 50 mcg/actuation [facility] RxNorm: 9485356 1 [facility] NASAL BID 03/13/2012 Inactive Depakote 500 mg tablet,delayed release RxNorm: 0915781 1 Tablet( s) PO BID 08/14/2011 02/09/2012 Inactive divalproex ER 500 mg tablet,extended release 24 hr RxNorm: 1 907011 1 Tablet(s) PO BID 06/17/2011 08/15/2011 Inactive Benadryl 25 mg Cap RxNorm: 6639273 1 Capsule(s) PO QHS as needed for sinus drainage. May cause drowsiness. 05/23/2011 11/29/2013 Inactive divalproex ER 500 mg 24 hr Tab RxNorm: 3332990 1 Tablet(s) PO BID 0 04/15/2011 06/13/2011 Inactive Nasonex 50 mcg/actuation [facility] RxNorm: 8615284 1 [facility] NASAL BID 09/15/2011 Inactive Amitiza 24 mcg Cap RxNorm: 836408 1 Capsule(s) PO BID 03/19/201105/01 Inactive Sennalax-S 8.6 mg-50 mg Tab RxNorm: 391625 2 Tablet(s) PO BID 03/1907/16/2011 Inactive Nasonex 50 mcg/Actuation [facility] RxNorm: 8860484 1 [facility] NASAL BID 03/24/2011 Inactive divalproex 250 mg Tab, Delayed Release RxNorm: 8192044 1 Tablet( s) PO QPM 02/27/2011 09/24/2011 Inactive Plus 27 mg-1 mg tablet RxNorm: 1 Tablet(s) PO QD 02/0105/20/2011 Inactive divalproex ER 500 mg 24 hr Tab RxNorm: 7001678 1 Tablet(s) PO BID 1 04/15/2010 04/12/2011 Inactive Amitiza 24 mcg Cap RxNorm: 046720 1 Capsule(s) PO BID 01/14/201103/03 Inactive Nasonex 50 mcg/Actuation [facility] RxNorm: 1015423 1 [facility] NASAL BID 03/16/2011 Inactive Depakote 500 mg Tab RxNorm: 3478060 1 Tablet(s) PO BID 09/18/2010 Inactive divalproex 250 mg Tab, Delayed Release RxNorm: 4711883 1 Tablet( s) PO QPM 07/31/2010 02/25/2011 Inactive Amitiza 24 mcg Cap RxNorm: 120295 1 Capsule(s) PO BID 06/19/201001/01 Inactive divalproex ER 500 mg 24 hr Tab RxNorm: 8337456 1 Tablet(s) PO BID 0 03/27/2010 09/22/2010 Inactive Amitiza 24 mcg Cap RxNorm: 948714 1 Capsule(s) PO BID 03/20/201006/01 Inactive Sennalax-S 8.6 mg-50 mg Tab RxNorm: 798896 2 Tablet(s) PO BID 03/2007/17/2010 Inactive divalproex 250 mg Tab, Delayed Release RxNorm: 3385251 1 Tablet( s) PO QPM 03/06/2010 07/30/2010 Inactive Amitiza 24 mcg Cap RxNorm: 499118 1 Capsule(s) PO BID 12/27/200903/03 Inactive Abilify 5 mg Tab RxNorm: 953929 1 Tablet(s) PO QD 12/13/2009 01/01/20 10 Inactive Abilify 5 mg Tab RxNorm: 225041 1 Tablet(s) PO QD 11/23/2009 12/13/19 10 Inactive Nasonex 50 mcg/Actuation [facility] RxNorm: 2551162 1 [facility] NASAL BID 11/06/2009 Active Divalproex 250 mg Tab, Delayed Release RxNorm: 1149218 1 Tablet( s) PO QHS 10/26/2009 12/31/2009 Inactive Divalproex 250 mg Tab, Delayed Release RxNorm: 5575796 1 Tablet( s) PO QHS 10/26/2009 10/25/2009 Inactive Fluoxetine 10 mg Tab RxNorm: 812955 1 Tablet(s) PO QD 10/26/200912/03 Inactive Abilify 5 mg Tab RxNorm: 323647 1 Tablet(s) PO QD 10/24/2009 11/23/19 10 Inactive Amitiza 24 mcg Cap RxNorm: 494191 1 Capsule(s) PO BID 09/28/200910/02 Inactive divalproex SR 500 mg 24 hr Tab RxNorm: 1127066 1 Tablet(s) PO BID 0 08/31/2009 10/29/2009 Inactive Divalproex SR 500 mg 24 hr Tab RxNorm: 0462087 1 Tablet(s) PO BID 0 08/23/2009 08/30/2009 Inactive Sennalax-S 8.6 mg-50 mg Tab RxNorm: 537493 2 Tablet(s) PO BID 08/1709/15/2009 Inactive Divalproex SR 500 mg 24 hr Tab RxNorm: 3734829 1 Tablet(s) PO BID 0 07/20/2009 08/18/2009 Inactive Clindamycin 300 mg Cap RxNorm: 409303 1 Capsule(s) PO BID 06/23/2009 06/29/2009 Inactive Tylenol Extra Strength 500 mg Tab RxNorm: 537912 Tablet(s) PO PRN Active Pepto-Bismol 262 mg chewable tablet RxNorm: 622437 Tablet(s) PO as needed 07/07/2015 Active Robitussin Cough-Congestion 100 mg/5 mL syrup RxNorm: 594992 Milliliter(s) PO as needed 07/07/2015 Active alprazolam 1 mg tablet RxNorm: 447870 1 Tablet(s) PO QD as needed 0 07/07/2015 12/13/2020 Inactive Opcon-A 0.71922 %-0.315 % Eye Drops RxNorm: 4898160 Drop(s) OPH PRN 04/26/2015 04/25/2015 Inactive Amitiza 24 mcg Cap RxNorm: 232633 1 Capsule(s) PO BID 09/28/200909/01 Inactive Depakote 250 mg Tab RxNorm: 2024151 1 Tablet(s) PO QPM 01/01/2010 Inactive fluticasone 50 mcg/actuation nasal spray,suspension RxNorm: 402605 1 [facility] NASAL BID 11/09/2014 11/08/2014 Inactive Mucinex 600 mg tablet, extended release RxNorm: 701109 Tablet(s ) PO as needed 07/07/2015 12/13/2020 Inactive Depakote 500 mg Tab RxNorm: 7606597 1 Tablet(s) PO BID 09/18/2010 Inactive Ketoconazole 2 % Shampoo RxNorm: 172177 1 TOP PRN 09/26/2014 015 Inactive alfalfa 650 mg tablet RxNorm: 397477 1 Tablet(s) PO QID 09/22/2019 Inactive Culturelle 10 billion cell capsule RxNorm: 562133 Capsule(s) PO as needed 09/22/2019 09/21/2019 Inactive bethanechol chloride 50 mg tablet RxNorm: 277068 1 Tablet(s) PO AC & HS 09/22/2019 09/21/2019 Inactive loratadine 10 mg tablet RxNorm: 6602474 1 Tablet(s) PO QD 06/29/2012 06/28/2012 Inactive Senna Concentrate Oral RxNorm: Oral 03/20/2010 03/20/2010 Inact dalia desmopressin 0.2 mg tablet RxNorm: 204360 3 Tablet(s) PO QHS 201707/13/2017 Inactive Fluoxetine 10 mg Tab RxNorm: 465586 1 Tablet(s) PO QD 10/26/200910/02 Inactive azithromycin 250 mg Tab RxNorm: 461683 Tablet(s) PO gm e 2 tablets on day one and one tablet on days 2-5. 10/01/2011 09/30/2011 Inactive Lyrica 25 mg capsule RxNorm: 120071 1 Capsule(s) PO QPM 10/20/2017 Inactive docusate sodium 100 mg capsule RxNorm: 7793544 1 Capsule(s) PO BID 06/29/2012 06/28/2012 Inactive Senna-S 8.6 mg-50 mg tablet RxNorm: 593554 Tablet(s) PO 03/16/2012 Inactive Zithromax Z-Vu 250 mg Tab RxNorm: 316586 Tablet(s) PO 10/01/2011 Inactive as directed ketoconazole 2 % shampoo RxNorm: 272079 1 Application TOP twice weekly to face 04/11/2015 04/10/2015 Inactive Abilify 10 mg Tab RxNorm: 074933 1 Tablet(s) PO QD 11/21/2016 017 Inactive Lyrica 50 mg capsule RxNorm: 838822 1 Capsule(s) PO QAM 07/11/2016 Inactive divalproex 250 mg Tab, Delayed Release RxNorm: 3804503 1 Tablet( s) PO QPM 03/06/2010 03/05/2010 Inactive Flonase 50 mcg/Actuation Nasal [facility] RxNorm: 3923576 1 [facility] JOSE AL BID 11/22/2010 11/21/2010 Inactive Cerovite Advanced Formula Oral RxNorm: Oral 12/02/2011 12/01/19 12 Inactive trihexyphenidyl 2 mg tablet RxNorm: 595886 1 Tablet(s) PO BID 09/2609/25/2014 Inactive Culturelle 10 billion cell Cap RxNorm: 138983 1 Capsule(s) PO QD pr n 04/26/2015 04/25/2015 Inactive Flonase Allergy Relief 50 mcg/actuation nasal spray,suspensi on RxNorm: 2 [facility] NASAL QHS 11/21/2014 11/20/2014 Inactive trihexyphenidyl 5 mg tablet RxNorm: 434009 1 Tablet(s) PO BID 09/2109/21/2019 Inactive Amitiza 24 mcg Cap RxNorm: 653304 1 Capsule(s) PO QAM 12/27/200912/02 Inactive Milk of Magnesia 400 mg/5 mL oral suspension RxNorm: 500623 30 Milliliter(s) PO QD as needed 06/30/2017 12/13/2020 Inactive Miralax 17 gram oral powder packet RxNorm: 189048 1 Uni t Dose PO QD in 6-8oz water daily 03/15/2014 03/14/2014 Inactive AttnRPh: Saving apply/adjudicate RxGRP:SG20 RxBIN:[id number] RxPCN: ID#:[id number] Calcium + D 600 mg (1,500)-200 unit tablet RxNorm: 144454 1 Tab let(s) PO QD 09/11/2012 09/10/2012 Inactive Flonase 50 mcg/actuation nasal spray,suspension RxNorm: 8963 23 2 [facility] NASAL QHS 11/09/2014 11/09/2014 Inactive Benadryl 25 mg capsule RxNorm: 4454789 Capsule(s) PO as needed 08/201512/13/2020 Inactive Nasonex 50 mcg/Actuation [facility] RxNorm: 0664069 1 NASAL PRN 010 11/06/2009 Inactive benztropine 2 mg tablet RxNorm: 996827 1 Tablet(s) PO BID 07/25/2015 07/24/2015 Inactive Lamisil AT 1 % topical cream RxNorm: 988009 1 Applicati on TOP BID for 2-4 weeks for athletes foot 07/07/2015 07/06/2015 Inactive Medication Administered No Medication Administered data Immunizations Vaccine Codes Dose Date Status Influenza (Adult) CVX: 141 11/23/2009 Results Observation Observation Code Item Item Code Result Date S ervice Location CANCEL [id number] CANCEL FOOTNOTE 07/25/2010 Unknown Procedures Procedure Codes Date URINALYSIS NONAUTO W/O SCOPE CPT-4: 41504 10/04/2019 [facility] URINE CULTURE/ COLONY COUNT CPT-4: 96794 10/04/19 20 PPPS, subseq visit CPT-4: G0439 09/22/2019 [facility] URINE CULTURE/ COLONY COUNT CPT-4: 68472 01/06/20 19 URINALYSIS NONAUTO W/O SCOPE CPT-4: 11965 01/05/2019 URINALYSIS NONAUTO W/O SCOPE CPT-4: 04864 10/29/2018 [facility] URINE CULTURE/ COLONY COUNT CPT-4: 81343 10/30/19 19 PPPS, subseq visit CPT-4: G0439 09/17/2018 PPPS, subseq visit CPT-4: G0439 08/25/2017 PPPS, subseq visit CPT-4: G0439 03/28/2015 PRESCRIP TRANSMIT VIA ERX SY CPT-4: G8553 11/17/2014 DESTRUCT PREMALG LESION (Cryosurgery) CPT-4: 63803 PRESCRIP TRANSMIT VIA ERX SY CPT-4: G8553 09/26/2014 PRESCRIP TRANSMIT VIA ERX SY CPT-4: G8553 03/15/2014 PPPS, subseq visit CPT-4: G0439 04/27/2013 PRESCRIP TRANSMIT VIA ERX SY CPT-4: G8553 05/23/2011 PRESCRIP TRANSMIT VIA ERX SY CPT-4: G8553 11/22/2010 [facility] URINE CULTURE/ COLONY COUNT CPT-4: 14829 08/04/19 11 [facility] URINE CULTURE/ COLONY COUNT CPT-4: 27918 07/24/19 11 URINALYSIS NONAUTO W/O SCOPE CPT-4: 14425 07/23/2010 IMMUNIZATION ADMIN CPT-4: 69284 01/01/2010 TDAP VACCINE 7 YRS/> IM CPT-4: 07248 01/01/2010 FLU VACCINE 3 YRS & > IM UP 64 CPT-4: 10794 0 ADMIN INFLUENZA VIRUS VAC CPT-4: G0008 11/23/2009 PRESCRIP TRANSMIT VIA ERX SY CPT-4: G8553 11/23/2009 Vital Signs Date Vital 04/22/2022 Blood Pressure 1: 126/74 Code: 8480-6 Heart Rate 1: 75 bpm Respiratory Rate: 20 bpm SpO2: 96% Temperature: 36.3 (C) / 97.3 (F) We ight: 174 lbs Code: 03923-7 02/18/2022 Blood Pressure 1: 130/72 Code: 8480-6 Heart Rate 1: 72 bpm Height: 5'9" Code: 8302-2 SpO2: 95% Temperature: 36.3 (C) / 97.3 (F) 02/04/2022 Blood Pressure 1: 117/68 Code: 8480-6 Heart Rate 1: 51 bpm Height: Code: 8302-2 SpO2: 100% Temperature: 35.9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 increase water intake 04/27/2013 Appointment: Tish Noe WPtel: [address] [place], [place] [phone] Annual Well Visit 04/27/2013 Patient Education: Patient Medication Summary Completed 04/27/2013 Patient Education: [facility] - Saving AutoInj - 18+ - Dynamic Portal ID Completed 04/27/2013 Appointment: Tish Noe WPtel: [address] [place], [place] [phone] ACUTE ILLNESS 04/22/2013 Visit Plan: Rx written for wheelchair an d depends Continue current meds Pt has labs q 6mos 04/06/2013 Appointment: Tish Noe WPtel: [address] [place], [place] [phone] 04/01 hung up when tried to verify ACUTE ILLNESS 04/06/2013 Patient Education: Patient Medication Summary Completed 04/06/2013 Appointment: Tish Noe WPtel: [address] [place], [place] [phone] Insurance coverage issues left without being seen ACUTE ILLNESS 12/30/2012 Appointment: Tish Noe WPtel: [address] [place], [place] [phone] FOLLOW UP 03/31/2012 Appointment: Tish Noe WPtel: [address] [place], [place] [phone] Tried to reach to reschedule; no working phone numbers 02/27 mailed letter to patient /2 - rescheduled appt 01/14/13 - will call back and reschedule when [employer] goes into effect New Have called moved appt up FOLLOW UP 03/16/2012 Visit Plan: Continue current meds 12/02/2011 Appointment: Tish Noe WPtel: [address] [place], [place] [phone] CHECK UP 12/02/2011 Patient Education: Patient Medication Summary Completed 12/02/2011 Visit Plan: No evidence of parkinson's t remor on exam--discussed parkinson's symptoms with engineering designer 10/01/2011 Appointment: Tish Noe WPtel: [address] [place], [place] [phone] FOLLOW UP 10/01/2011 Patient Education: Patient Medication Summary Completed 10/01/2011 Visit Plan: Proceed with hearing evaluat ion Proceed with repeat CT of head DC Amitiza 07/22/2011 Appointment: Tish Noe WPtel: [address] [place], [place] [phone] ACUTE ILLNESS 07/22/2011 Patient Education: Patient Medication Summary Completed 07/22/2011 Visit Plan: will continue Loratidine. an d will use Azithromycin. Will notify if no improvement. Benadryl at bedtime PRN. 05/23/2011 Appointment: Kiley Wilson WPtel: [address] [place], [place] [phone] ACUTE ILLNESS 05/23/2011 Patient Education: Patient Medication Summary Completed 05/23/2011 Visit Plan: Continue claritin Add Z-pack 11/22/2010 Appointment: Tish Noe WPtel: [address] [place], [place] [phone] FOLLOW UP 11/22/2010 Patient Education: Patient Medication Summary Completed 11/22/2010 Appointment: Tish Noe WPtel: [address] [place], [place] [phone] [facility] 08/03/2010 Patient Education: Patient Medication Summary Completed 08/03/2010 Appointment: Tish Noe WPtel: [address] [place], [place] [phone] [facility] 07/23/2010 Patient Education: Patient Medication Summary Completed 07/23/2010 Visit Plan: Cont current meds Repeat lab in 6mos 05/24/2010 Appointment: Tish Noe WPtel: [address] [place], [place] [phone] FOLLOW UP 05/24/2010 Patient Education: Patient Medication Summary Completed 05/24/2010 Appointment: Tish Noe WPtel: [address] [place], [place] [phone] [facility] 01/01/2010 Patient Education: Patient Medication Summary Completed 01/01/2010 Appointment: Tish Noe WPtel: [address] [place], [place] [phone] FOLLOW UP 11/23/2009 Patient Education: Patient Medication Summary Completed 11/23/2009 Visit Plan: Check CMP, CBC, TSH, Free T4 , Depakote level, Vit D, B12, Lipids Start Abilify 5mg QD See Psych 10/24/2009 Appointment: Tish Noe WPtel: [address] [place], [place] [phone] ESTABLISHED PATIENT 10/24/2009 Patient Education: Patient Medication Summary Completed 10/24/2009 Visit Plan: Caregiver present states the pt. has not complained of pain or other symptoms. Swelling is present on left upper cheek. Caregiver states the pt. has eaten normally over the last few days. Pt. reports pain with eating. Instructed intensive care unit registered nurse to seek re-eval if symptoms persist or fever appears. OTC Tylenol or Motrin for discomfort recommended. 06/23/2009 Appointment: Kiley Wilson WPtel: [address] [place], [place] [phone] ACUTE ILLNESS 06/23/2009 Patient Education: Patient Medication Summary Completed 06/23/2009 Referral: Yajaira Corea WPtel: [phone] [id number] [place] Referral Initiated Referral: Gilbert Covarrubias WPtel: [phone] [id number] [place] Referral Initiated Referral: Earl Jordan WPtel: [address] [id number] [place] Referral Initiated Instructions Comment Date . Supportive [...] tremor on e xam--discussed parkinson's symptoms with engineering designer 10/01/2011 . Proceed with hearing evaluation Proceed [...] days. Pt. reports pain with eating. Instructed intensive care unit registered nurse to seek re-eval if symptoms persist [...]
--- OUTSIDE RECORDS SUMMARY | 2022-07-03 13:16 | XMS REPORT | CCD ---
Author Author Steve Noe D.O. Organization [facility] Address [address] [place] [address] Phone Care Team Providers Care Chlorinator Name Role Phone Tish Noe D.O., PP Unavailable CCM Unavailable Summary Purpose Interface Exchange Insurance Providers Payer name Policy type / Coverage type Covered republican ID Effective Begin Date Effective End Date WPS MEDICARE PART B [place] Medicare Part B [id number] [address] [facility] Medicare Part B [id number] Unknown Family history Father Diagnosis Age At Onset *Denies any medical problems Unknown Mother Diagnosis Age At Onset *Denies any medical problems Unknown Social History Social History Element Codes Description Effective Dates Tobacco history SNOMED CT: 792544612 Never smoker 11/17/2014 Marital status Unknown Single [...] Start Date Stop Date Status Fill Instructions levofloxacin 500 mg tablet RxNorm: 440138 Take 1 Tablet(s) Oral QD 06/25/2022 07/01/2022 Active levofloxacin 500 mg tablet RxNorm: 400537 1 Tablet(s) Oral QD 06/2506/25/2022 Inactive polyethylene glycol 3350 17 gram/dose oral powder RxNorm: 87 6193 DRINK 17 GRAMS MIXED INTO 8 OZS. OF JUICE OR WATER TWICE DAILY 06/24/2022 08/22/2022 Active loratadine 10 mg tablet RxNorm: 407289 TAKE 1 TABLET BY MOUTH DAILY 06/12/2022 12/14/2022 Active PLEASE NEW RX+REFILLS FOR 31 DAYS THANKS Culturelle 10 billion cell capsule RxNorm: 582960 Take 1 Capsul e(s) Oral QD 06/06/2022 08/04/2022 Active tetracycline 500 mg capsule RxNorm: 003935 Take 1 Capsu le(s) Oral four times a day 2022 05/30/2022 Inactive tetracycline 500 mg capsule RxNorm: 192489 1 Capsule(s) Oral fo ur times a day 2022 2022 Inactive Macrobid 100 mg capsule RxNorm: 826614 Take 1 Capsule(s) Oral t wo times a day 05/20/2022 05/20/2022 Inactive Macrobid 100 mg capsule RxNorm: 912437 1 Capsule(s) Oral two ti mes a day 05/20/2022 05/20/2022 Inactive pregabalin 50 mg capsule RxNorm: 016599 Take 1 Capsule(s) Oral QAM 05/15/2022 05/15/2022 Inactive Stimulant Laxative Plus 8.6 mg-50 mg tablet RxNorm: 103697 TAKE 2 TABLETS BY MOUTH TWICE DAILY 05/13/2022 08/13/2022 Active PLEASE NEW RX+ REFILLS FOR 31 DAYS THANKS Cipro 250 mg tablet RxNorm: 370860 Take 1 Tablet(s) Oral two ti mes a day 04/29/2022 05/08/2022 Inactive Cipro 250 mg tablet RxNorm: 161911 1 Tablet(s) Oral two times a day 04/29/2022 04/29/2022 Inactive Keppra 100 mg/mL oral solution RxNorm: 959689 Take 15 M illiliter(s) Oral two times a day 04/22/2022 08/19/2022 Active omeprazole 40 mg capsule,delayed release RxNorm: 694411 Take 1 Capsule(s) Oral QD 04/15/2022 10/11/2022 Active RX QTT LEFT NOT ENOUGH FOR 93 DAYS PLEASE NEW RX+REFILLS THANKS ketoconazole 2 % shampoo RxNorm: 396077 APPLY TO FACE TWICE PER WEE K 04/10/2022 05/09/2022 Inactive ciclopirox 8 % topical solution RxNorm: 976456 APPLY TO AFFECTED TOENAILS EVERY NIGHT AT BEDTIME OR 8 HOURS BEFORE WASHING 03/26/2022 04/24/2022 Inact dalia aripiprazole 10 mg tablet RxNorm: 813486 Take 1 Tablet(s) Oral HS 0 03/25/2022 05/25/2022 Inactive RX NEED A NEW RX+REF ILLS FOR 93 DAYS THANKS mirtazapine 15 mg tablet RxNorm: 006404 Take 1 Tablet(s) Oral HS 05/25/2022 Inactive RX NEED A NEW RX+REF ILLS FOR 93 DAYS THANKS citalopram 40 mg tablet RxNorm: 093688 Take 1 Tablet(s) Oral QD 05/25/2022 Inactive RX NEED A NEW RX+REF ILLS FOR 93 DAYS THANKS polyethylene glycol 3350 17 gram/dose oral powder RxNorm: 87 6193 DRINK 17 GRAMS MIXED INTO 8 OZS. OF JUICE OR WATER TWICE DAILY 03/25/2022 06/22/2022 Inactive Keppra 100 mg/mL oral solution RxNorm: 594287 Take 10 M illiliter(s) Oral two times a day 03/25/2022 03/25/2022 Inactive Keppra 100 mg/mL oral solution RxNorm: 849811 Take 10 M illiliter(s) Oral two times a day 03/25/2022 04/21/2022 Inactive lamotrigine 100 mg tablet RxNorm: 589317 Take 1 Tablet(s) Oral two times a day 03/18/2022 04/21/2022 Inactive PLEASE NEW RX+REFIIL S FOR 93 DAYS THANKS PrePlus 27 mg iron-1 mg tablet RxNorm: Take 1 Tablet(s) Oral Q D 03/13/2022 03/19/2023 Active PLEASE NEW RX+REFIILS FOR 93 DAYS THANKS loratadine 10 mg tablet RxNorm: 956229 Take 1 Tablet(s) Oral QD 05/20/2022 Inactive Lamictal 100 mg tablet RxNorm: 256755 Take 1 Tablet(s) Oral two times a day 02/20/2022 02/20/2022 Inactive Keppra 1,000 mg tablet RxNorm: 266152 Take 1 Tablet(s) Oral two times a day 02/18/2022 04/21/2022 Inactive loratadine 10 mg tablet RxNorm: 854479 TAKE 1 TABLET BY MOUTH 2 TIMES DAILY Take 1 Tablet(s) Oral two times a day 02/18/2022 02/19/2022 Inactive PLEASE NEW RX+REFILLS FOR 31 DAYS THANKS cephalexin 500 mg capsule RxNorm: 873281 Take 1 Capsule (s) Oral three times a day 02/18/2022 02/24/2022 Inactive fluticasone propionate 50 mcg/actuation nasal spray,suspensi on RxNorm: 4408464 SPRAY 1 SPRAY INTO EACH NOSTRIL TWICE DAILY 02/12/2022 08/10/2022 Acti ve omeprazole 40 mg capsule,delayed release RxNorm: 471874 Take 1 Capsule(s) Oral QD 02/12/2022 02/12/2022 Inactive Patient reques ts 90 days supply Stimulant Laxative Plus 8.6 mg-50 mg tablet RxNorm: 348952 TAKE 2 TABLETS BY MOUTH TWICE DAILY 02/12/2022 04/21/2022 Inactive PLEASE NEW RX+ REFILLS FOR 31 DAYS THANKS Lamictal 100 mg tablet RxNorm: 699576 Take 1 Tablet(s) Oral two times a day 02/11/2022 02/11/2022 Inactive Lamictal 100 mg tablet RxNorm: 084050 1 Tablet(s) Oral two time s a day 02/11/2022 02/11/2022 Inactive omeprazole 40 mg capsule,delayed release RxNorm: 540516 Take 1 Capsule(s) Oral QD 02/07/2022 02/07/2022 Inactive Patient reques ts 90 days supply Culturelle 10 billion cell capsule RxNorm: 637236 Take 1 Capsul e(s) Oral QD 02/05/2022 02/05/2022 Inactive Keppra 500 mg tablet RxNorm: 866223 Take 1 Tablet(s) Oral QD 202102/17/2022 Inactive Benadryl Allergy 25 mg tablet RxNorm: 0396410 Take 1 Tab let(s) Oral Every 6 hours as needed for hives 01/17/2022 No Stop Date Active pregabalin 50 mg capsule RxNorm: 695814 Take 1 Capsule(s) Oral QAM 01/01/2022 02/04/2022 Inactive pregabalin 25 mg capsule RxNorm: 011354 Take 1 Capsule(s) Oral QAM 01/01/2022 01/01/2022 Inactive Lamictal 100 mg tablet RxNorm: 940824 Take 1 Tablet(s) Oral QD 03/202102/04/2022 Inactive levetiracetam 250 mg tablet RxNorm: 849803 Take 1 Table t(s) Oral two times a day 01/01/2022 01/01/2022 Inactive Keppra 1,000 mg tablet RxNorm: 939207 Take 1 Tablet(s) Oral two times a day replaces 500mg dose 01/01/2022 02/17/2022 Inactive Depakote 500 mg tablet,delayed release RxNorm: 4860534 T willi 1 Tablet(s) Oral two times a day 01/01/2022 01/01/2022 Inactive Augmentin 500 mg-125 mg tablet RxNorm: 521215 1 Tablet(s) Oral two times a day 12/25/2021 12/25/2021 Inactive Augmentin 500 mg-125 mg tablet RxNorm: 205110 Take 1 Ta blet(s) Oral two times a day 12/25/2021 12/29/2021 Inactive Depakote 250 mg tablet,delayed release RxNorm: 7262228 T willi 1 Tablet(s) Oral two times a day for seizure 12/17/2021 12/31/2021 Inactive pregabalin 50 mg capsule RxNorm: 851688 TAKE 1 CAPSULE BY MOUTH EACH MORNING 12/12/2021 12/31/2021 Inactive PLEASE NEW RX+REFILL S FOR 31 DAYS. THANKS pregabalin 25 mg capsule RxNorm: 573698 Take 1 Capsule(s) Oral two times a day 12/12/2021 12/31/2021 Inactive loratadine 10 mg tablet RxNorm: 744535 TAKE 1 TABLET BY MOUTH DAILY 12/08/2021 12/08/2021 Inactive PLEASE NEW RX+REFILLS FOR 31 DAYS THANKS fluticasone propionate 50 mcg/actuation nasal spray,suspensi on RxNorm: 0527167 SPRAY 1 SPRAY INTO EACH NOSTRIL TWICE DAILY 12/04/2021 12/04/2021 Inac tive levetiracetam 1,000 mg tablet RxNorm: 599868 Take 1 Tablet(s) O ral QPM 12/04/2021 12/11/2021 Inactive levetiracetam 750 mg tablet RxNorm: 815932 Take 1 Tablet(s) Oral QA M 12/04/2021 12/11/2021 Inactive levetiracetam 750 mg tablet RxNorm: 908586 Take 1 Tablet(s) Oral QA M 11/26/2021 11/26/2021 Inactive levetiracetam 1,000 mg tablet RxNorm: 713447 Take 1 Tablet(s) O ral QPM 11/26/2021 11/26/2021 Inactive levetiracetam 750 mg tablet RxNorm: 964423 Take 1 Tablet(s) Oral QA M 11/26/2021 12/31/2021 Inactive levetiracetam 1,000 mg tablet RxNorm: 951879 Take 1 Tablet(s) O ral QPM 11/26/2021 12/31/2021 Inactive levetiracetam 750 mg tablet RxNorm: 764669 Take 1 Tablet(s) Oral QA M 11/19/2021 11/26/2021 Inactive melatonin 5 mg tablet RxNorm: 687501 TAKE 1 TABLET BY M OUTH DAILY IN THE EVENING NEEDED FOR SLEEP 11/06/2021 11/06/2021 Inactive melatonin 5 mg tablet RxNorm: 945377 Take 1 Tablet(s) O ral every night at bedtime 11/06/2021 12/31/2021 Inactive Senna Plus 8.6 mg-50 mg tablet RxNorm: 185161 Take 1 Ta blet(s) Oral two times a day 10/16/2021 11/14/2021 Inactive nystatin 100,000 unit/gram topical cream RxNorm: 040039 Apply Application Topical two times a day to lateral foot rash for 2 weeks and as needed for scaling rash 10/16/2021 No Stop Date Active metronidazole 0.75 % lotion RxNorm: 806796 Take Application Top ical QPM to face 10/16/2021 No Stop Date Active pregabalin 25 mg capsule RxNorm: 195115 Take 1 Capsule(s) Oral two times a day 10/16/2021 12/12/2021 Inactive levetiracetam 1,000 mg tablet RxNorm: 475006 Take 1 Tablet(s) O ral QPM 10/16/2021 10/16/2021 Inactive RX QTY LEFT NOT ENOU GH FOR 31 DAYS PLEASE NEW RX+REFILLS THANKS Keppra 500 mg tablet RxNorm: 412166 Take 1 Tablet(s) Or al QAM replaces 1000mg AM dose 10/16/2021 11/26/2021 Inactive polyethylene glycol 3350 17 gram/dose oral powder RxNorm: 87 6193 DRINK 17 GRAMS MIXED INTO 8 OZS. OF JUICE OR WATER TWICE DAILY 10/12/2021 10/12/2021 Inactive ketoconazole 2 % shampoo RxNorm: 200303 APPLY TO FACE TWICE PER WEE K 09/19/2021 09/19/2021 Inactive PrePlus 27 mg iron-1 mg tablet RxNorm: Take 1 Tablet(s) Oral Q D 09/12/2021 11/10/2021 Inactive RX QTY LEFT NOT ENOUGH FOR 9 3 DAYS PLEASE NEW RX+REFILLS THANKS Culturelle 10 billion cell capsule RxNorm: 271775 Take 1 Capsul e(s) Oral QD 09/10/2021 09/10/2021 Inactive Stimulant Laxative Plus 8.6 mg-50 mg tablet RxNorm: 666892 TAKE 2 TABLETS BY MOUTH TWICE DAILY 08/14/2021 10/15/2021 Inactive PLEASE NEW RX+ REFILLS FOR 31 DAYS THANKS pregabalin 50 mg capsule RxNorm: 019541 TAKE 1 CAPSULE BY MOUTH EACH MORNING 07/15/2021 10/15/2021 Inactive PLEASE NEW RX+REFILL S FOR 31 DAYS. THANKS pregabalin 25 mg capsule RxNorm: 340270 Take 1 Capsule(s) Oral HS 0 07/15/2021 10/15/2021 Inactive PLEASE NEW RX+REFILLS FOR 31 DAYS. THANKS levetiracetam 1,000 mg tablet RxNorm: 362283 Take 1 Tab let(s) Oral two times a day 06/11/2021 10/15/2021 Inactive RX QTY LEFT NOT ENOUGH FOR 31 DAYS PLEASE NEW RX+REFILLS THANKS loratadine 10 mg tablet RxNorm: 712327 TAKE 1 TABLET BY MOUTH DAILY 06/11/2021 06/11/2021 Inactive PLEASE NEW RX+REFILLS FOR 31 DAYS. THANKS Keppra 1,000 mg tablet RxNorm: 883537 Take 1 Tablet(s) Oral two times a day 05/08/2021 05/08/2021 Inactive Keppra 1,000 mg tablet RxNorm: 291176 Take 1 Tablet(s) Oral two times a day 05/08/2021 05/07/2021 Inactive ciclopirox 8 % topical solution RxNorm: 270782 Take Top ical QD to the affected area(s)preferably at bedtime or 8 hours before washing--to toenails 05/08/2021 10/15/2021 Inactive melatonin 5 mg capsule RxNorm: 657578 Take 1 Capsule(s) Oral QPM as needed for sleep 04/25/2021 10/21/2021 Inactive polyethylene glycol 3350 17 gram/dose oral powder RxNorm: 87 6193 DRINK 17 GRAMS MIXED INTO 8 OZS. OF JUICE OR WATER TWICE DAILY 04/24/2021 04/24/2021 Inactive Culturelle 10 billion cell capsule RxNorm: 941124 Take 1 Capsul e(s) Oral QD 04/16/2021 04/16/2021 Inactive pregabalin 25 mg capsule RxNorm: 161123 Take 1 Capsule(s) Oral HS 0 04/13/2021 04/13/2021 Inactive PLEASE NEW RX+REFILLS FOR 31 DAYS. THANKS pregabalin 50 mg capsule RxNorm: 088420 TAKE 1 CAPSULE BY MOUTH EACH MORNING 04/13/2021 04/13/2021 Inactive PLEASE NEW RX+REFILL S FOR 31 DAYS. THANKS fluticasone propionate 50 mcg/actuation nasal spray,suspensi on RxNorm: 4792771 SPRAY 1 SPRAY INTO EACH NOSTRIL TWICE DAILY 03/13/2021 03/13/2021 Inac tive polyethylene glycol 3350 17 gram/dose oral powder RxNorm: 87 6193 DRINK 17 GRAMS MIXED INTO 8 OZS. OF JUICE OR WATER TWICE DAILY 03/05/2021 04/03/2021 Inactive Gavilax 17 gram/dose oral powder RxNorm: 842830 DRINK 1 7 GRAMS MIXED INTO 8 OZS. OF JUICE OR WATER TWICE DAILY 02/27/2021 02/27/2021 Inactive Stimulant Laxative Plus 8.6 mg-50 mg tablet RxNorm: 067908 TAKE 2 TABLETS BY MOUTH TWICE DAILY 02/16/2021 02/16/2021 Inactive Tucks (diana grant) 50 % topical pads RxNorm: 017401 Ta ke Application Topical four times a day as needed 02/05/2021 No Stop Date Active citalopram 40 mg tablet RxNorm: 388996 Take 1 Tablet(s) Oral QD 08/202003/25/2022 Inactive Culturelle 10 billion cell capsule RxNorm: 227937 Take 1 Capsul e(s) Oral QD 02/05/2021 04/16/2021 Inactive melatonin 5 mg capsule RxNorm: 744207 Take 1 Capsule(s) Oral QPM as needed for sleep 02/05/2021 02/05/2021 Inactive Keppra 750 mg tablet RxNorm: 595805 Take 1 Tablet(s) Or al two times a day replaces 500mg dose 02/05/2021 05/07/2021 Inactive Keppra 500 mg tablet RxNorm: 450183 Take 1 Tablet(s) Oral two t imes a day 01/17/2021 02/04/2021 Inactive Keppra 500 mg tablet RxNorm: 020437 Take 1 Tablet(s) Oral two t imes a day 01/17/2021 01/17/2021 Inactive Culturelle 10 billion cell capsule RxNorm: 527569 Take 1 Capsule(s) Oral QD as needed 01/16/2021 02/04/2021 Inactive levofloxacin 250 mg tablet RxNorm: 763599 Take 1 Tablet(s) Oral QD 01/04/2021 01/13/2021 Inactive cranberry 450 mg tablet RxNorm: Take 1 Tablet(s) Oral tw o times a day 12/14/2020 No Stop Date Active Gold Rosario Medicated 0.8 %-5 % topical powder RxNorm: 941810 Top ical as needed 12/14/2020 No Stop Date Active hydrocortisone 1 % topical cream RxNorm: 703151 Topical as needed 1 No Stop Date Active Gavilax 17 gram/dose oral powder RxNorm: 401801 Give 17 Gram(s) Oral two times a day in 8 ounces of juice/water 12/14/2020 10/15/2021 Inactive Culturelle 10 billion cell capsule RxNorm: 003044 Take 1 Capsule(s) Oral QD as needed 12/14/2020 01/16/2021 Inactive mirtazapine 15 mg tablet RxNorm: 265661 Take 1 Tablet(s ) Oral every night at bedtime 12/14/2020 03/25/2022 Inactive aripiprazole 10 mg tablet RxNorm: 896381 Take 1 Tablet(s) Oral QD 1 03/25/2022 Inactive pregabalin 25 mg capsule RxNorm: 248469 Take 1 Capsule(s) Oral HS 1 12/13/2020 Inactive loratadine 10 mg tablet RxNorm: 159172 TAKE 1 TABLET BY MOUTH DAILY 12/13/2020 12/13/2020 Inactive pregabalin 50 mg capsule RxNorm: 718311 TAKE 1 CAPSULE BY MOUTH EACH MORNING 12/13/2020 12/13/2020 Inactive Gavilax 17 gram/dose oral powder RxNorm: 121484 DRINK 1 7 GRAMS MIXED INTO 8 OZS. OF JUICE OR WATER TWICE DAILY 12/05/2020 12/13/2020 Inactive fluticasone propionate 50 mcg/actuation nasal spray,suspensi on RxNorm: 7745943 USE 1 SPRAY IN EACH NOSTRIL TWICE DAILY 11/16/2020 11/16/2020 Inactive pregabalin 25 mg capsule RxNorm: 278788 Take 1 Capsule(s) Oral HS 0 11/12/2020 11/12/2020 Inactive pregabalin 50 mg capsule RxNorm: 292264 TAKE 1 CAPSULE BY MOUTH EACH MORNING 11/12/2020 11/12/2020 Inactive Gavilax 17 gram/dose oral powder RxNorm: 769235 DRINK 1 7 GRAMS MIXED INTO 8 OZS. OF JUICE OR WATER TWICE DAILY 10/16/2020 11/14/2020 Inactive PrePlus 27 mg iron-1 mg tablet RxNorm: Take 1 Tablet(s) Oral Q D 10/12/2020 11/11/2020 Inactive pregabalin 50 mg capsule RxNorm: 493484 TAKE 1 CAPSULE BY MOUTH EACH MORNING 10/12/2020 10/12/2020 Inactive Stimulant Laxative Plus 8.6 mg-50 mg tablet RxNorm: 863377 TAKE 2 TABLETS BY MOUTH TWICE DAILY 10/12/2020 10/12/2020 Inactive pregabalin 25 mg capsule RxNorm: 132448 Take 1 Capsule(s) Oral HS 0 10/12/2020 10/12/2020 Inactive loratadine 10 mg tablet RxNorm: 217565 TAKE 1 TABLET BY MOUTH DAILY 09/12/2020 09/12/2020 Inactive ketoconazole 2 % shampoo RxNorm: 592084 1 Application T opical twice weekly to face 07/20/2020 07/20/2020 Inactive OUT OF REFILLS Senna-S 8.6 mg-50 mg tablet RxNorm: 921893 TAKE 2 TABLETS BY MO [facility] TWICE DAILY 07/17/2020 07/17/2020 Inactive PLEASE NEW RX+REFILL S FOR 31 DAYS. THANKS Miralax 17 gram oral powder packet RxNorm: 409007 TAKE 17 GRAMS MIXED INTO 8 OZS. OF JUICE OR WATER TWICE DAILY 06/27/2020 12/13/2020 Inactive OUT OF REFILLS Lyrica 25 mg capsule RxNorm: 319854 TAKE 1 CAPSULE BY M OUTH DAILY AT BEDTIME Capsule(s) Oral 06/14/2020 06/14/2020 Inactive Lyrica 50 mg capsule RxNorm: 960305 Capsule(s) Oral GM E 1 CAPSULE BY MOUTH EACH MORNING 06/14/2020 06/14/2020 Inactive fluticasone propionate 50 mcg/actuation nasal spray,suspensi on RxNorm: 6099981 1 [place] Nasal two times a day 06/06/2020 06/06/2020 Inactive OUT OF REFILLS Plus 27 mg-1 mg tablet RxNorm: 1 Tablet(s) PO Q D 1 Tablet(s) Oral QD 05/10/2020 10/15/2021 Inactive Senna-S 8.6 mg-50 mg tablet RxNorm: 438160 TAKE 2 TABLETS BY MO UTH TWICE DAILY 04/10/2020 07/11/2020 Inactive PLEASE NEW RX+REFILL S FOR 31 DAYS. THANKS loratadine 10 mg tablet RxNorm: 917189 TAKE 1 TABLET BY MOUTH DAILY 04/10/2020 04/10/2020 Inactive PLEASE NEW RX+REFILLS FOR 31 DAYS. THANKS ketoconazole 2 % shampoo RxNorm: 265435 1 Application T opical twice weekly to face 03/22/2020 07/19/2020 Inactive OUT OF REFILLS Lyrica 50 mg capsule RxNorm: 286197 Capsule(s) Oral GM E 1 CAPSULE BY MOUTH EACH MORNING 02/10/2020 06/12/2020 Inactive Lyrica 25 mg capsule RxNorm: 077699 TAKE 1 CAPSULE BY M OUTH DAILY AT BEDTIME Capsule(s) Oral 02/10/2020 06/08/2020 Inactive Senna-S 8.6 mg-50 mg tablet RxNorm: 795700 TAKE 2 TABLETS BY MO UTH TWICE DAILY 01/13/2020 04/09/2020 Inactive PLEASE NEW RX+REFILL S FOR 31 DAYS. THANKS Miralax 17 gram oral powder packet RxNorm: 398714 TAKE 17 GRAMS MIXED INTO 8 OZS. OF JUICE OR WATER TWICE DAILY 01/10/2020 06/26/2020 Inactive OUT OF REFILLS Miralax 17 gram oral powder packet RxNorm: 938176 TAKE 17 GRAMS MIXED INTO 8 OZS. OF JUICE OR WATER TWICE DAILY 12/15/2019 01/09/2020 Inactive OUT OF REFILLS ketoconazole 2 % shampoo RxNorm: 618832 APPLY TO FACE TWICE PER WEE K 12/09/2019 03/21/2020 Inactive OUT OF REFILLS Plus 27 mg-1 mg tablet RxNorm: 1 Tablet(s) PO Q D 1 Tablet(s) Oral QD 11/17/2019 05/09/2020 Inactive loratadine 10 mg tablet RxNorm: 613852 TAKE 1 TABLET BY MOUTH DAILY 11/17/2019 04/09/2020 Inactive PLEASE NEW RX+REFILLS FOR 31 DAYS. THANKS Lyrica 50 mg capsule RxNorm: 096396 Capsule(s) Oral GM E 1 CAPSULE BY MOUTH EACH MORNING 10/18/2019 02/08/2020 Inactive Lyrica 25 mg capsule RxNorm: 205154 TAKE 1 CAPSULE BY M OUTH DAILY AT BEDTIME Capsule(s) Oral 10/18/2019 02/13/2020 Inactive Senna-S 8.6 mg-50 mg tablet RxNorm: 004549 TAKE 2 TABLETS BY MO UTH TWICE DAILY 10/18/2019 01/12/2020 Inactive PLEASE NEW RX+REFILL S FOR 31 DAYS. THANKS Bactrim DS 800 mg-160 mg tablet RxNorm: 765491 1 Tablet(s) Oral two times a day 10/04/2019 10/10/2019 Inactive Vitamin C 500 mg tablet RxNorm: 598750 1 Tablet(s) Oral QD 09/22/19 20 12/31/2021 Inactive citalopram 10 mg tablet RxNorm: 369025 1 Tablet(s) Oral QD 09/22/19 20 02/04/2021 Inactive omeprazole 40 mg capsule,delayed release RxNorm: 172557 1 Capsule(s) Oral QD for reflux 08/16/2019 09/21/2019 Inactive Clindagel 1 % topical gel, once daily RxNorm: 265033 Ap plication Topical QPM to face rash or prn for rosacea 07/21/2019 12/13/2020 Inactive loratadine 10 mg tablet RxNorm: 426286 TAKE 1 TABLET BY MOUTH DAILY 07/19/2019 11/15/2019 Inactive PLEASE NEW RX+REFILLS FOR 31 DAYS. THANKS Senna-S 8.6 mg-50 mg tablet RxNorm: 894612 TAKE 2 TABLETS BY [facility] TWICE A DAY 07/19/2019 10/17/2019 Inactive PLEASE NEW RX+REFILL S FOR 31 DAYS. THANKS fluticasone propionate 50 mcg/actuation nasal spray,suspensi on RxNorm: 2147061 USE 1 SPRAY IN EACH NOSTRIL TWICE DAILY 07/01/2019 06/05/2020 Inactive OUT OF REFILLS Lyrica 50 mg capsule RxNorm: 896822 Capsule(s) Oral GM E 1 CAPSULE BY MOUTH EACH MORNING 06/16/2019 10/16/2019 Inactive Lyrica 25 mg capsule RxNorm: 798966 TAKE 1 CAPSULE BY OUT DAILY AT BEDTIME Capsule(s) Oral 06/16/2019 10/12/2019 Inactive Plus 27 mg-1 mg tablet RxNorm: 1 Tablet(s) PO Q D 1 Tablet(s) Oral QD 2019 11/16/2019 Inactive triamcinolone acetonide 0.025 % topical cream RxNorm: 292937 4 1 Application Topical two times a day apply thin layer to cheeks 05/03/2019 0 Inactive Lyrica 50 mg capsule RxNorm: 171851 Capsule(s) TAKE 1 C APSULE BY MOUTH EACH MORNING 02/22/2019 06/25/2019 Inactive Lyrica 25 mg capsule RxNorm: 703680 TAKE 1 CAPSULE BY MOUTH DOMINICK LY AT BEDTIME 02/22/2019 06/21/2019 Inactive loratadine 10 mg tablet RxNorm: 611643 TAKE 1 TABLET BY MOUTH DAILY 01/21/2019 03/23/2019 Inactive PLEASE NEW RX+REFILLS FOR 31 DAYS. THANKS Senna-S 8.6 mg-50 mg tablet RxNorm: 019867 TAKE 2 TABLETS BY [facility] TWICE A DAY 01/21/2019 07/18/2019 Inactive PLEASE NEW RX+REFILL S FOR 31 DAYS. THANKS Macrobid 100 mg capsule RxNorm: 009149 1 Capsule(s) Oral two ti mes a day 01/11/2019 01/10/2019 Inactive Macrobid 100 mg capsule RxNorm: 499283 1 Capsule(s) Oral two ti mes a day 01/11/2019 01/21/2019 Inactive Cipro 250 mg tablet RxNorm: 458467 1 Tablet(s) Oral two times a day 01/05/2019 01/12/2019 Inactive Senna-S 8.6 mg-50 mg tablet RxNorm: 183151 TAKE 2 TABLETS BY [facility] TWICE A DAY 12/21/2018 01/20/2019 Inactive NEED A NEW RX+REFILL S PLEASE FOR 31 DAYS. THANKS Plus 27 mg-1 mg tablet RxNorm: 1 Tablet(s) PO QD 11/0205/20/2019 Inactive doxycycline hyclate 100 mg capsule RxNorm: 5203598 1 Cap edison(s) Oral two times a day 11/23/2018 11/30/2018 Inactive doxycycline hyclate 100 mg capsule RxNorm: 0621156 1 Cap edison(s) Oral two times a day 11/23/2018 11/22/2018 Inactive loratadine 10 mg tablet RxNorm: 270942 1 Tablet(s) PO QD 11/23/201803/22/2018 Inactive doxycycline hyclate 100 mg capsule RxNorm: 2033917 1 Cap edison(s) Oral two times a day 11/23/2018 11/22/2018 Inactive Macrobid 100 mg capsule RxNorm: 454681 1 Capsule(s) PO BID 11/05/1911/10/2018 Inactive Macrobid 100 mg capsule RxNorm: 567043 1 Capsule(s) PO BID 11/05/1911/03/2018 Inactive Bactrim DS 800 mg-160 mg tablet RxNorm: 193741 1 Tablet(s) PO BID 0 10/29/2018 10/28/2018 Inactive Bactrim DS 800 mg-160 mg tablet RxNorm: 448331 1 Tablet(s) PO BID 0 10/29/2018 11/03/2018 Inactive Miralax 17 gram oral powder packet RxNorm: 848975 TAKE 17 GRAMS MIXED INTO 8 OZS. OF JUICE OR WATER TWICE DAILY 10/15/2018 01/15/2019 Inactive OUT OF REFILLS fluconazole 100 mg tablet RxNorm: 811923 1 Tablet(s) PO QD 10/13/19 19 10/18/2018 Inactive clotrimazole-betamethasone 1 %-0.05 % topical cream RxNorm: 084895 Application TOP BID to foot rash for 1-2 weeks 10/12/2018 09/21/2019 Inactive fluticasone propionate 50 mcg/actuation nasal spray,suspensi on RxNorm: 1076505 USE 1 SPRAY IN EACH NOSTRIL TWICE DAILY 09/01/2018 12/29/2018 Inactive Senna-S 8.6 mg-50 mg tablet RxNorm: 104448 TAKE 2 TABLETS BY [facility] TWICE A DAY 08/19/2018 12/20/2018 Inactive nystatin 100,000 unit/gram topical cream RxNorm: 562245 1 Gram( s) TOP BID 08/10/2018 08/09/2018 Inactive acyclovir 800 mg tablet RxNorm: 234256 1 Tablet(s) PO 5x day 201808/09/2018 Inactive nystatin 100,000 unit/gram topical cream RxNorm: 467758 1 Gram( s) TOP BID 08/10/2018 08/19/2018 Inactive acyclovir 800 mg tablet RxNorm: 309588 1 Tablet(s) PO 5x day 201808/16/2018 Inactive Miralax 17 gram oral powder packet RxNorm: 841273 TAKE 17 GRAMS MIXED INTO 8 OZS. OF JUICE OR WATER TWICE DAILY 07/31/2018 10/14/2018 Inactive Lyrica 25 mg capsule RxNorm: 534991 TAKE 1 CAPSULE BY MOUTH DOMINICK LY AT BEDTIME 07/16/2018 08/14/2018 Inactive nystatin 100,000 unit/gram topical powder RxNorm: 346505 1 Application TOP BID to upper thighs for 14 days 06/29/2018 07/12/2018 Inactive nystatin 100,000 unit/gram topical powder RxNorm: 730688 1 Application TOP BID to upper thighs for 14 days 06/29/2018 06/28/2018 Inactive Plus 27 mg-1 mg tablet RxNorm: 1 Tablet(s) PO QD 06/0111/22/2018 Inactive loratadine 10 mg tablet RxNorm: 750375 1 Tablet(s) PO QD 06/16/2018 0 11/22/2018 Inactive Miralax 17 gram oral powder packet RxNorm: 375483 TAKE 17 GRAMS MIXED INTO 8 OZS. OF JUICE OR WATER TWICE DAILY 05/19/2018 07/30/2018 Inactive ketoconazole 2 % shampoo RxNorm: 315135 APPLY TO FACE TWICE PER WEE K 05/04/2018 11/29/2018 Inactive Macrobid 100 mg capsule RxNorm: 208240 1 Capsule(s) PO BID 04/17/19 19 04/16/2018 Inactive Macrobid 100 mg capsule RxNorm: 740285 1 Capsule(s) PO BID 04/17/19 19 04/26/2018 Inactive Zithromax Z-Vu 250 mg tablet RxNorm: 727252 Tablet(s) PO As Di rected 02/26/2018 03/02/2018 Inactive Tessalon Perles 100 mg capsule RxNorm: 877730 1 Capsule (s) PO TID as needed for cough 02/26/2018 01/04/2019 Inactive Senna-S 8.6 mg-50 mg tablet RxNorm: 995753 2 Tablet(s) PO BID 02/1608/14/2018 Inactive Miralax 17 gram oral powder packet RxNorm: 042168 TAKE 17 GRAMS MIXED INTO 8 OZS. OF JUICE OR WATER TWICE DAILY 01/08/2018 04/10/2018 Inactive Miralax 17 gram oral powder packet RxNorm: 923421 1 Tab let(s) PO BID TAKE 17 GRAMS MIXED INTO 8 OZS. OF JUICE OR WATER TWICE DAILY 11/17/20172017 Inactive Miralax 17 gram oral powder packet RxNorm: 550684 1 Tab let(s) PO QD TAKE 17 GRAMS MIXED INTO 8 OZS. OF JUICE OR WATER once DAILY 11/04/2017 021 Inactive polymyxin B sulfate 10,000 unit-trimethoprim 1 mg/mL eye bandar ps RxNorm: 228107 2 Drop(s) ophthalmic (eye) Q4H while awake 10/29/2017 11/04/2017 Inactiv e Lyrica 25 mg capsule RxNorm: 718811 TAKE 1 CAPSULE BY MOUTH EAC H EVENING 10/20/2017 07/16/2018 Inactive Senna-S 8.6 mg-50 mg tablet RxNorm: 746462 2 Tablet(s) PO BID 10/2002/15/2018 Inactive Lyrica 50 mg capsule RxNorm: 143210 TAKE 1 CAPSULE BY MOUTH EAC H MORNING 10/20/2017 01/20/2018 Inactive loratadine 10 mg tablet RxNorm: 186330 Tablet(s) TAKE 1 TABLET BY MOUTH DAILY 10/20/2017 06/16/2018 Inactive Plus 27 mg-1 mg tablet RxNorm: Tablet(s) TAKE 1 TABLET BY MOUTH DAILY 10/20/2017 06/16/2018 Inactive nystatin 100,000 unit/gram topical cream RxNorm: 509368 Gram(s) TOP BID for 2 weeks 09/16/2017 09/21/2019 Inactive loratadine 10 mg tablet RxNorm: 338388 TAKE 1 TABLET BY MOUTH DAILY 08/18/2017 10/20/2017 Inactive Plus 27 mg-1 mg tablet RxNorm: TAKE 1 TABLET BY MOUTH DAILY 08/18/2017 10/20/2017 Inactive Miralax 17 gram oral powder packet RxNorm: 197102 1 Tab let(s) PO BID TAKE 17 GRAMS MIXED INTO 8 OZS. OF JUICE OR WATER TWICE DAILY 06/13/20172017 Inactive Miralax 17 gram oral powder packet RxNorm: 407847 1 Tab let(s) PO BID TAKE 17 GRAMS MIXED INTO 8 OZS. OF JUICE OR WATER TWICE DAILY 06/13/20172020 Inactive doxycycline hyclate 100 mg capsule RxNorm: 3424269 1 Capsule(s) PO BID 06/06/2017 06/05/2017 Inactive Cipro 250 mg tablet RxNorm: 437285 1 Tablet(s) PO BID 06/06/201706/01 Inactive Cipro 250 mg tablet RxNorm: 257160 1 Tablet(s) PO BID 06/06/201707/2017 Inactive doxycycline hyclate 100 mg capsule RxNorm: 5653056 1 Capsule(s) PO BID 06/06/2017 06/12/2017 Inactive Senna-S 8.6 mg-50 mg tablet RxNorm: 012276 2 Tablet(s) PO BID 05/1910/20/2017 Inactive Miralax 17 gram oral powder packet RxNorm: 879520 1 Tab let(s) PO BID TAKE 17 GRAMS MIXED INTO 8 OZS. OF JUICE OR WATER TWICE DAILY 01/06/20172017 Inactive Senna-S 8.6 mg-50 mg tablet RxNorm: 230098 2 Tablet(s) PO BID 12/1105/19/2017 Inactive Abilify 5 mg tablet RxNorm: 098840 1 Tablet(s) PO QHS 11/21/201612/01 Inactive docusate sodium 100 mg capsule RxNorm: 8360466 1 Capsule(s) PO BID 09/17/2016 09/21/2019 Inactive [AttnRPh: Saving apply/adjud icate RxGRP:SG20 RxBIN:[id number] RxPCN:HT ID#:[id number]] loratadine 10 mg tablet RxNorm: 203923 1 Tablet(s) PO QD 09/17/2016 0 08/17/2017 Inactive [AttnRPh: Saving apply/adjudicate RxGRP: SG20 RxBIN:[id number] RxPCN:HT ID#:[id number]] Plus 27 mg-1 mg tablet RxNorm: 1 Tablet(s) PO QD 08/3108/17/2017 Inactive [AttnRPh: Saving apply/adjud icate RxGRP:SG20 RxBIN:[id number] RxPCN:HT ID#:[id number]] Calcium + D 600 mg (1,500 mg)-200 unit tablet RxNorm: 994650 1 Tablet(s) PO QD 09/17/2016 09/21/2019 Inactive ketoconazole 2 % shampoo RxNorm: 907609 APPLY TO FACE TWICE PER WEE K 08/26/2016 02/21/2017 Inactive fluticasone propionate 50 mcg/actuation nasal spray,suspensi on RxNorm: 1308462 [facility] USE 1 SPRAY IN EACH NOSTRIL TWICE A DAY 07/30/2016 01/25/2017 In active Miralax 17 gram oral powder packet RxNorm: 249477 TAKE 17 GRAMS MIXED INTO 8 OZS. OF JUICE OR WATER TWICE DAILY 07/30/2016 01/06/2017 Inactive Senna-S 8.6 mg-50 mg tablet RxNorm: 358469 2 Tablet(s) PO BID 07/1512/10/2016 Inactive Lyrica 50 mg capsule RxNorm: 849191 TAKE 1 CAPSULE BY MOUTH EAC H MORNING 07/11/2016 08/09/2016 Inactive Miralax 17 gram oral powder packet RxNorm: 395860 TAKE 17 GRAMS MIXED INTO 8 OZS. OF JUICE OR WATER TWICE DAILY 07/04/2016 07/29/2016 Inactive Miralax 17 gram oral powder packet RxNorm: 033029 TAKE 17 GRAMS MIXED INTO 8 OZS. OF JUICE OR WATER TWICE DAILY 07/04/2016 08/03/2016 Inactive Miralax 17 gram oral powder packet RxNorm: 036364 TAKE 17 GRAMS MIXED INTO 8 OZS. OF JUICE OR WATER TWICE DAILY 06/13/2016 07/03/2016 Inactive benztropine 2 mg tablet RxNorm: 776592 1 Tablet(s) PO BID 04/15/2016 09/21/2019 Inactive ketoconazole 2 % shampoo RxNorm: 797113 APPLY TO FACE TWICE PER WEE K 04/01/2016 08/25/2016 Inactive ketoconazole 2 % shampoo RxNorm: 188553 APPLY TO FACE TWICE PER WEE K 04/01/2016 12/13/2020 Inactive Miralax 17 gram oral powder packet RxNorm: 269067 TAKE 17 GRAMS MIXED INTO 8 OZS. OF JUICE OR WATER TWICE DAILY 03/29/2016 06/12/2016 Inactive calcium carbonate 600 mg calcium (1,500 mg)-vit D3 1,0 00 unit capsule RxNorm: 1095380 1 Capsule(s) PO QD 03/15/2016 09/17/2016 Inactive fluticasone 50 mcg/actuation nasal spray,suspension RxNorm: 0286763 [facility] USE 1 SPRAY IN EACH NOSTRIL TWICE A DAY 03/04/2016 07/29/2016 Inactive Miralax 17 gram oral powder packet RxNorm: 686258 1 Uni t Dose PO BID in 6-8oz water daily 02/28/2016 03/28/2016 Inactive attnrph: saving apply/adjudicate rxgrp:sg20 rxbin:[id number] rxpcn: id#:[id number] Senna-S 8.6 mg-50 mg tablet RxNorm: 438150 TAKE TWO TABLETS ORA LLY TWICE A DAY 01/18/2016 07/15/2016 Inactive ketoconazole 2 % shampoo RxNorm: 422518 APPLY TO FACE TWICE PER WEE K 12/04/2015 03/31/2016 Inactive benztropine 2 mg tablet RxNorm: 977777 1 Tablet(s) PO BID 11/20/2015 04/14/2016 Inactive cefuroxime axetil 250 mg tablet RxNorm: 308780 1 Tablet(s) PO BID 0 11/13/2015 11/19/2015 Inactive cefuroxime axetil 250 mg tablet RxNorm: 987129 1 Tablet(s) PO BID 0 11/13/2015 11/12/2015 Inactive ketoconazole 2 % shampoo RxNorm: 666313 APPLY TO FACE TWICE PER WEE K 11/08/2015 12/03/2015 Inactive loratadine 10 mg tablet RxNorm: 364361 1 Tablet(s) PO QD 10/16/2015 0 09/16/2016 Inactive [AttnRPh: Saving apply/adjudicate RxGRP: SG20 RxBIN:[id number] RxPCN: ID#:[id number]] docusate sodium 100 mg capsule RxNorm: 6274481 1 Capsule(s) PO BID 10/16/2015 09/17/2016 Inactive [AttnRPh: Saving apply/adjud icate RxGRP:SG20 RxBIN:[id number] RxPCN: ID#:[id number]] Plus 27 mg-1 mg tablet RxNorm: 1 Tablet(s) PO QD 10/0109/16/2016 Inactive [AttnRPh: Saving apply/adjud icate RxGRP:SG20 RxBIN:[id number] RxPCN: ID#:[id number]] Miralax 17 gram oral powder packet RxNorm: 512100 1 Uni t Dose PO BID in 6-8oz water daily 09/29/2015 09/28/2015 Inactive attnrph: saving apply/adjudicate rxgrp:sg20 rxbin:[id number] rxpcn: id#:[id number] fluticasone 50 mcg/actuation nasal spray,suspension RxNorm: 8184939 USE 1 SPRAY IN EACH NOSTRIL TWICE A DAY 09/12/2015 03/04/2016 Inactive benztropine 2 mg tablet RxNorm: 312228 1 Tablet(s) PO BID 09/11/2015 11/20/2015 Inactive benztropine 2 mg tablet RxNorm: 684473 1 Tablet(s) PO BID 07/25/2015 09/10/2015 Inactive ketoconazole 2 % shampoo RxNorm: 649992 APPLY TO FACE TWICE PER WEE K 07/24/2015 11/07/2015 Inactive Senna-S 8.6 mg-50 mg tablet RxNorm: 257022 TAKE TWO TABLETS ORA LLY TWICE A DAY 07/13/2015 01/14/2016 Inactive ketoconazole 2 % shampoo RxNorm: 761000 APPLY TO FACE TWICE PER WEE K 06/30/2015 07/23/2015 Inactive Miralax 17 gram oral powder packet RxNorm: 033674 1 Uni t Dose PO BID in 6-8oz water daily 06/19/2015 09/29/2015 Inactive attnrph: saving apply/adjudicate rxgrp:sg20 rxbin:[id number] rxpcn: id#:[id number] fluticasone 50 mcg/actuation nasal spray,suspension RxNorm: 851959 1 [facility] NASAL BID 05/29/2015 09/11/2015 Inactive Opcon-A 0.80549 %-0.315 % eye drops RxNorm: 9312395 2 Drop(s) OP H PRN as needed 04/26/2015 04/25/2015 Inactive Culturelle 10 billion cell capsule RxNorm: 780945 1 Capsule(s) PO QD prn 04/26/2015 09/21/2019 Inactive calcium carbonate-vitamin D3 600 mg (1,500 mg)-1,000 u nit capsule RxNorm: 1400806 1 Capsule(s) PO QD 04/24/2015 07/06/2015 Inactive Senna-S 8.6 mg-50 mg tablet RxNorm: 578854 TAKE TWO TABLETS ORA LLY TWICE A DAY 04/24/2015 07/12/2015 Inactive ketoconazole 2 % shampoo RxNorm: 878468 1 Application TOP twice weekly to face 04/11/2015 06/29/2015 Inactive Senna-S 8.6 mg-50 mg tablet RxNorm: 696053 2 Tablet(s) PO QD TAKE 2 TABLETS ORALLY TWICE A DAY 01/20/2015 04/23/2015 Inactive out of refill s Miralax 17 gram oral powder packet RxNorm: 831536 1 Uni t Dose PO BID in 6-8oz water daily 11/21/2014 12/13/2020 Inactive attnrph: saving apply/adjudicate rxgrp:sg20 rxbin:[id number] rxpcn: id#:[id number] Flonase Allergy Relief 50 mcg/actuation nasal spray,suspensi on RxNorm: 2 [facility] NASAL QHS 11/21/2014 07/22/2016 Inactive azithromycin 250 mg tablet RxNorm: 059700 2 Tablet(s) P O on day one, then one tablet on days 2 - 5 11/18/2014 12/20/2014 Inactive azithromycin 250 mg tablet RxNorm: 826960 2 Tablet(s) P O on day one, then one tablet on days 2 - 5 11/17/2014 11/17/2014 Inactive fluticasone 50 mcg/actuation nasal spray,suspension RxNorm: 579163 1 [facility] NASAL BID 11/09/2014 11/08/2014 Inactive Plus 27 mg-1 mg tablet RxNorm: 1 Tablet(s) PO QD 10/0110/13/2015 Inactive [AttnRPh: Saving apply/adjud icate RxGRP:SG20 RxBIN:[id number] RxPCN: ID#:[id number]] Plus 27 mg-1 mg tablet RxNorm: 1 Tablet(s) PO QD 09/0110/18/2014 Inactive [AttnRPh: Saving apply/adjud icate RxGRP:SG20 RxBIN:284702 RxPCN: ID#:[id number]] nystatin-triamcinolone 100,000 unit/g-0.1 % topical cream RxNorm : 7354746 BID 09/26/2014 10/09/2014 Inactive docusate sodium 100 mg capsule RxNorm: 7656151 1 Capsule(s) PO BID 09/26/2014 10/15/2015 Inactive [AttnRPh: Saving apply/adjud icate RxGRP:SG20 RxBIN:596135 RxPCN:HT ID#:[id number]] trihexyphenidyl 2 mg tablet RxNorm: 454661 1 Tablet(s) PO BID 09/2612/20/2014 Inactive Miralax 17 gram oral powder packet RxNorm: 126492 1 Uni t Dose PO BID in 6-8oz water daily 09/26/2014 11/20/2014 Inactive attnrph: saving apply/adjudicate rxgrp:sg20 rxbin:339757 rxpcn: id#:[id number] loratadine 10 mg tablet RxNorm: 509113 Tablet(s) 1 Tabl et(s) PO QD 1 Tablet(s) PO QD 09/26/2014 10/16/2015 Inactive [AttnRPh: Saving apply/adjudicate RxGRP:SG20 RxBIN:[id number] RxPCN:HT ID#:[id number]] ketoconazole 2 % shampoo RxNorm: 521136 1 BIW lather and rinse after 10 min 09/26/2014 04/10/2015 Inactive Calcium + D 600 mg (1,500 mg)-200 unit tablet RxNorm: 388803 1 Tablet(s) PO QD 09/26/2014 09/19/2015 Inactive Senna-S 8.6 mg-50 mg tablet RxNorm: 586843 2 Tablet(s) PO QD TAKE 2 TABLETS ORALLY TWICE A DAY 09/26/2014 01/19/2015 Inactive out of refill s Senna-S 8.6 mg-50 mg tablet RxNorm: 465620 2 Tablet(s) PO QD TAKE 2 TABLETS ORALLY TWICE A DAY 07/20/2014 09/25/2014 Inactive out of refill s [AttnRPh: Saving apply/adjudicate RxGRP:SG20 RxBIN:[id number] RxPCN: ID#:[id number]] loratadine 10 mg tablet RxNorm: 029126 1 Tablet(s) PO QD 1 Tabl et(s) PO QD 04/25/2014 09/25/2014 Inactive [AttnRPh: Saving deyanira ly/adjudicate RxGRP:SG20 RxBIN:[id number] RxPCN: ID#:[id number]] docusate sodium 100 mg capsule RxNorm: 1851032 1 Capsule(s) PO BID 04/04/2014 09/25/2014 Inactive [AttnRPh: Saving apply/adjud icate RxGRP:SG20 RxBIN:519972 RxPCN:HT ID#:[id number]] Senna-S 8.6 mg-50 mg tablet RxNorm: 426078 2 Tablet(s) PO QD TAKE 2 TABLETS ORALLY TWICE A DAY 03/15/2014 07/19/2014 Inactive OUT OF REFILL S [AttnRPh: Saving apply/adjudicate RxGRP:SG20 RxBIN:828494 RxPCN:HT ID#:[id number]] nystatin 100,000 unit/gram topical cream RxNorm: 500055 Applica tion TOP BID 03/15/2014 07/22/2016 Inactive [AttnRPh: Saving deyanira ly/adjudicate RxGRP:SG20 RxBIN:[id number] RxPCN:HT ID#:[id number]] Miralax 17 gram oral powder packet RxNorm: 217722 1 Uni t Dose PO BID in 6-8oz water daily 03/15/2014 09/25/2014 Inactive AttnRPh: Saving apply/adjudicate RxGRP:SG20 RxBIN:147231 RxPCN:HT ID#:[id number] [AttnRPh: Saving apply/adjudicate RxGRP:SG20 RxBIN:209384 RxPCN:HT ID#:[id number]] Senna-S 8.6 mg-50 mg tablet RxNorm: 329091 2 Tablet(s) PO QD TAKE 2 TABLETS ORALLY TWICE A DAY 03/09/2014 03/14/2014 Inactive OUT OF REFILL S loratadine 10 mg tablet RxNorm: 393152 1 Tablet(s) PO QD 1 Tabl et(s) PO QD 10/28/2013 04/24/2014 Inactive [AttnRPh: Saving deyanira ly/adjudicate RxGRP:SG20 RxBIN:138498 RxPCN:HT ID#:[id number]] docusate sodium 100 mg capsule RxNorm: 9611256 1 Capsule(s) PO BID 10/21/2013 04/03/2014 Inactive [AttnRPh: Saving apply/adjud icate RxGRP:SG20 RxBIN:[id number] RxPCN:HT ID#:[id number]] Plus 27 mg-1 mg tablet RxNorm: 1 Tablet(s) PO QD 06/201309/25/2014 Inactive [AttnRPh: Saving apply/adjud icate RxGRP:SG20 RxBIN:100038 RxPCN:HT ID#:[id number]] Calcium + D 600 mg (1,500)-200 unit tablet RxNorm: 161676 1 Tab let(s) PO QD 09/21/2013 09/25/2014 Inactive loratadine 10 mg tablet RxNorm: 741637 1 Tablet(s) PO QD 1 Tabl et(s) PO QD 07/06/2013 10/28/2013 Inactive docusate sodium 100 mg capsule RxNorm: 7008528 1 Capsule(s) PO BID 04/12/2013 10/21/2013 Inactive Senna-S 8.6 mg-50 mg tablet RxNorm: 049683 2 Tablet(s) PO BID 01/0503/09/2014 Inactive loratadine 10 mg tablet RxNorm: 503875 1 Tablet(s) PO QD 01/04/2013 0 07/06/2013 Inactive Senna-S 8.6 mg-50 mg tablet RxNorm: 882803 2 Tablet(s) PO BID 01/0401/04/2013 Inactive loratadine 10 mg tablet RxNorm: 1563774 1 Tablet(s) PO QD 10/05/2012 01/04/2013 Inactive Senna-S 8.6 mg-50 mg tablet RxNorm: 135074 2 Tablet(s) PO BID 10/0501/04/2013 Inactive Calcium + D 600 mg (1,500)-200 unit tablet RxNorm: 901953 1 Tab let(s) PO QD 09/11/2012 09/21/2013 Inactive docusate sodium 100 mg capsule RxNorm: 9008059 1 Capsule(s) PO BID 09/10/2012 03/08/2013 Inactive Plus 27 mg-1 mg tablet RxNorm: 1 Tablet(s) PO QD 08/3109/04/2013 Inactive Senna-S 8.6 mg-50 mg tablet RxNorm: 290661 2 Tablet(s) PO BID 09/1010/04/2012 Inactive loratadine 10 mg tablet RxNorm: 6220612 1 Tablet(s) PO QD 09/10/2012 09/09/2012 Active divalproex ER 500 mg tablet,extended release 24 hr RxNorm: 1 648423 1 Tablet(s) PO BID 09/10/2012 09/21/2019 Inactive Nasonex 50 mcg/actuation [facility] RxNorm: 859966 1 [facility] NASAL BID 07/22/2016 Inactive Depakote 500 mg tablet,delayed release RxNorm: 2874258 1 Tablet( s) PO BID 08/10/2012 12/20/2014 Inactive loratadine 10 mg tablet RxNorm: 6228199 1 Tablet(s) PO QD 06/29/2012 09/09/2012 Inactive docusate sodium 100 mg capsule RxNorm: 4723853 1 Capsule(s) PO BID 06/29/2012 09/09/2012 Inactive divalproex 250 mg tablet,delayed release RxNorm: 3183137 1 Table t(s) PO QPM 06/08/2012 09/21/2019 Inactive Depakote 500 mg tablet,delayed release RxNorm: 3282670 1 Tablet( s) PO BID 04/13/2012 07/11/2012 Inactive Senna-S 8.6 mg-50 mg tablet RxNorm: 251471 2 Tablet(s) PO BID 03/1604/14/2012 Inactive Plus 27 mg-1 mg tablet RxNorm: 1 Tablet(s) PO QD 01/3109/09/2012 Inactive divalproex ER 500 mg tablet,extended release 24 hr RxNorm: 1 651087 1 Tablet(s) PO BID 02/10/2012 04/09/2012 Inactive divalproex 250 mg tablet,delayed release RxNorm: 5921145 1 Table t(s) PO QPM 09/30/2011 04/26/2012 Inactive Nasonex 50 mcg/actuation [facility] RxNorm: 8027466 1 [facility] NASAL BID 03/13/2012 Inactive Depakote 500 mg tablet,delayed release RxNorm: 8324016 1 Tablet( s) PO BID 08/14/2011 02/09/2012 Inactive divalproex ER 500 mg tablet,extended release 24 hr RxNorm: 1 624827 1 Tablet(s) PO BID 06/17/2011 08/15/2011 Inactive Benadryl 25 mg Cap RxNorm: 6619390 1 Capsule(s) PO QHS as needed for sinus drainage. May cause drowsiness. 05/23/2011 11/29/2013 Inactive divalproex ER 500 mg 24 hr Tab RxNorm: 8091562 1 Tablet(s) PO BID 0 04/15/2011 06/13/2011 Inactive Nasonex 50 mcg/actuation [facility] RxNorm: 5435871 1 [facility] NASAL BID 09/15/2011 Inactive Amitiza 24 mcg Cap RxNorm: 948523 1 Capsule(s) PO BID 03/19/201105/01 Inactive Sennalax-S 8.6 mg-50 mg Tab RxNorm: 774880 2 Tablet(s) PO BID 03/1907/16/2011 Inactive Nasonex 50 mcg/Actuation [facility] RxNorm: 0092208 1 [facility] NASAL BID 03/24/2011 Inactive divalproex 250 mg Tab, Delayed Release RxNorm: 8953649 1 Tablet( s) PO QPM 02/27/2011 09/24/2011 Inactive Plus 27 mg-1 mg tablet RxNorm: 1 Tablet(s) PO QD 02/0105/20/2011 Inactive divalproex ER 500 mg 24 hr Tab RxNorm: 3801324 1 Tablet(s) PO BID 1 04/15/2010 04/12/2011 Inactive Amitiza 24 mcg Cap RxNorm: 252289 1 Capsule(s) PO BID 01/14/201103/03 Inactive Nasonex 50 mcg/Actuation [facility] RxNorm: 8030653 1 [facility] NASAL BID 03/16/2011 Inactive Depakote 500 mg Tab RxNorm: 3105893 1 Tablet(s) PO BID 09/18/2010 Inactive divalproex 250 mg Tab, Delayed Release RxNorm: 1472675 1 Tablet( s) PO QPM 07/31/2010 02/25/2011 Inactive Amitiza 24 mcg Cap RxNorm: 892520 1 Capsule(s) PO BID 06/19/201001/01 Inactive divalproex ER 500 mg 24 hr Tab RxNorm: 6438627 1 Tablet(s) PO BID 0 03/27/2010 09/22/2010 Inactive Amitiza 24 mcg Cap RxNorm: 364361 1 Capsule(s) PO BID 03/20/201006/01 Inactive Sennalax-S 8.6 mg-50 mg Tab RxNorm: 011730 2 Tablet(s) PO BID 03/2007/17/2010 Inactive divalproex 250 mg Tab, Delayed Release RxNorm: 3599896 1 Tablet( s) PO QPM 03/06/2010 07/30/2010 Inactive Amitiza 24 mcg Cap RxNorm: 679654 1 Capsule(s) PO BID 12/27/200903/03 Inactive Abilify 5 mg Tab RxNorm: 789895 1 Tablet(s) PO QD 12/13/2009 01/01/20 10 Inactive Abilify 5 mg Tab RxNorm: 314721 1 Tablet(s) PO QD 11/23/2009 12/13/19 10 Inactive Nasonex 50 mcg/Actuation [facility] RxNorm: 0152593 1 [facility] NASAL BID 11/06/2009 Active Divalproex 250 mg Tab, Delayed Release RxNorm: 3440057 1 Tablet( s) PO QHS 10/26/2009 12/31/2009 Inactive Divalproex 250 mg Tab, Delayed Release RxNorm: 5820791 1 Tablet( s) PO QHS 10/26/2009 10/25/2009 Inactive Fluoxetine 10 mg Tab RxNorm: 286345 1 Tablet(s) PO QD 10/26/200912/03 Inactive Abilify 5 mg Tab RxNorm: 720791 1 Tablet(s) PO QD 10/24/2009 11/23/19 10 Inactive Amitiza 24 mcg Cap RxNorm: 044204 1 Capsule(s) PO BID 09/28/200910/02 Inactive divalproex SR 500 mg 24 hr Tab RxNorm: 2865699 1 Tablet(s) PO BID 0 08/31/2009 10/29/2009 Inactive Divalproex SR 500 mg 24 hr Tab RxNorm: 5100815 1 Tablet(s) PO BID 0 08/23/2009 08/30/2009 Inactive Sennalax-S 8.6 mg-50 mg Tab RxNorm: 313225 2 Tablet(s) PO BID 08/1709/15/2009 Inactive Divalproex SR 500 mg 24 hr Tab RxNorm: 0211624 1 Tablet(s) PO BID 0 07/20/2009 08/18/2009 Inactive Clindamycin 300 mg Cap RxNorm: 861819 1 Capsule(s) PO BID 06/23/2009 06/29/2009 Inactive Tylenol Extra Strength 500 mg Tab RxNorm: 092821 Tablet(s) PO PRN Active Pepto-Bismol 262 mg chewable tablet RxNorm: 268309 Tablet(s) PO as needed 07/07/2015 Active Robitussin Cough-Congestion 100 mg/5 mL syrup RxNorm: 153968 Milliliter(s) PO as needed 07/07/2015 Active alprazolam 1 mg tablet RxNorm: 618032 1 Tablet(s) PO QD as needed 0 07/07/2015 12/13/2020 Inactive Opcon-A 0.31689 %-0.315 % Eye Drops RxNorm: 4618009 Drop(s) OPH PRN 04/26/2015 04/25/2015 Inactive Amitiza 24 mcg Cap RxNorm: 900819 1 Capsule(s) PO BID 09/28/200909/01 Inactive Depakote 250 mg Tab RxNorm: 2739765 1 Tablet(s) PO QPM 01/01/2010 Inactive fluticasone 50 mcg/actuation nasal spray,suspension RxNorm: 965454 1 [facility] NASAL BID 11/09/2014 11/08/2014 Inactive Mucinex 600 mg tablet, extended release RxNorm: 744232 Tablet(s ) PO as needed 07/07/2015 12/13/2020 Inactive Depakote 500 mg Tab RxNorm: 3559578 1 Tablet(s) PO BID 09/18/2010 Inactive Ketoconazole 2 % Shampoo RxNorm: 293948 1 TOP PRN 09/26/2014 015 Inactive alfalfa 650 mg tablet RxNorm: 403883 1 Tablet(s) PO QID 09/22/2019 Inactive Culturelle 10 billion cell capsule RxNorm: 918822 Capsule(s) PO as needed 09/22/2019 09/21/2019 Inactive bethanechol chloride 50 mg tablet RxNorm: 229336 1 Tablet(s) PO AC & HS 09/22/2019 09/21/2019 Inactive loratadine 10 mg tablet RxNorm: 9129536 1 Tablet(s) PO QD 06/29/2012 06/28/2012 Inactive Senna Concentrate Oral RxNorm: Oral 03/20/2010 03/20/2010 Inact dalia desmopressin 0.2 mg tablet RxNorm: 725098 3 Tablet(s) PO QHS 201707/13/2017 Inactive Fluoxetine 10 mg Tab RxNorm: 467097 1 Tablet(s) PO QD 10/26/200910/02 Inactive azithromycin 250 mg Tab RxNorm: 983236 Tablet(s) PO gm e 2 tablets on day one and one tablet on days 2-5. 10/01/2011 09/30/2011 Inactive Lyrica 25 mg capsule RxNorm: 178921 1 Capsule(s) PO QPM 10/20/2017 Inactive docusate sodium 100 mg capsule RxNorm: 2010377 1 Capsule(s) PO BID 06/29/2012 06/28/2012 Inactive Senna-S 8.6 mg-50 mg tablet RxNorm: 740380 Tablet(s) PO 03/16/2012 Inactive Zithromax Z-Vu 250 mg Tab RxNorm: 228374 Tablet(s) PO 10/01/2011 Inactive as directed ketoconazole 2 % shampoo RxNorm: 552137 1 Application TOP twice weekly to face 04/11/2015 04/10/2015 Inactive Abilify 10 mg Tab RxNorm: 567722 1 Tablet(s) PO QD 11/21/2016 017 Inactive Lyrica 50 mg capsule RxNorm: 970227 1 Capsule(s) PO QAM 07/11/2016 Inactive divalproex 250 mg Tab, Delayed Release RxNorm: 1790080 1 Tablet( s) PO QPM 03/06/2010 03/05/2010 Inactive Flonase 50 mcg/Actuation Nasal [facility] RxNorm: 9421575 1 [facility] JOSE AL BID 11/22/2010 11/21/2010 Inactive Cerovite Advanced Formula Oral RxNorm: Oral 12/02/2011 12/01/19 12 Inactive trihexyphenidyl 2 mg tablet RxNorm: 636984 1 Tablet(s) PO BID 09/2609/25/2014 Inactive Culturelle 10 billion cell Cap RxNorm: 382122 1 Capsule(s) PO QD pr n 04/26/2015 04/25/2015 Inactive Flonase Allergy Relief 50 mcg/actuation nasal spray,suspensi on RxNorm: 2 [facility] NASAL QHS 11/21/2014 11/20/2014 Inactive trihexyphenidyl 5 mg tablet RxNorm: 878386 1 Tablet(s) PO BID 09/2109/21/2019 Inactive Amitiza 24 mcg Cap RxNorm: 639924 1 Capsule(s) PO QAM 12/27/200912/02 Inactive Milk of Magnesia 400 mg/5 mL oral suspension RxNorm: 695577 30 Milliliter(s) PO QD as needed 06/30/2017 12/13/2020 Inactive Miralax 17 gram oral powder packet RxNorm: 162949 1 Uni t Dose PO QD in 6-8oz water daily 03/15/2014 03/14/2014 Inactive AttnRPh: Saving apply/adjudicate RxGRP:SG20 RxBIN:[id number] RxPCN: ID#:[id number] Calcium + D 600 mg (1,500)-200 unit tablet RxNorm: 642700 1 Tab let(s) PO QD 09/11/2012 09/10/2012 Inactive Flonase 50 mcg/actuation nasal spray,suspension RxNorm: 8963 23 2 [facility] NASAL QHS 11/09/2014 11/09/2014 Inactive Benadryl 25 mg capsule RxNorm: 9854962 Capsule(s) PO as needed 05/08/201512/13/2020 Inactive Nasonex 50 mcg/Actuation [facility] RxNorm: 4439912 1 NASAL PRN 010 11/06/2009 Inactive benztropine 2 mg tablet RxNorm: 959422 1 Tablet(s) PO BID 07/25/2015 07/24/2015 Inactive Lamisil AT 1 % topical cream RxNorm: 621002 1 Applicati on TOP BID for 2-4 weeks for athletes foot 07/07/2015 07/06/2015 Inactive Medication Administered No Medication Administered data Immunizations Vaccine Codes Dose Date Status Influenza (Adult) CVX: 141 11/23/2009 Results Observation Observation Code Item Item Code Result Date S ervice Location CANCEL [id number] CANCEL FOOTNOTE 07/25/2010 Unknown Procedures Procedure Codes Date URINALYSIS NONAUTO W/O SCOPE CPT-4: 70587 10/04/2019 [facility] URINE CULTURE/ COLONY COUNT CPT-4: 82463 10/04/19 20 PPPS, subseq visit CPT-4: G0439 09/22/2019 [facility] URINE CULTURE/ COLONY COUNT CPT-4: 26901 01/06/20 19 URINALYSIS NONAUTO W/O SCOPE CPT-4: 99837 01/05/2019 URINALYSIS NONAUTO W/O SCOPE CPT-4: 83607 10/29/2018 [facility] URINE CULTURE/ COLONY COUNT CPT-4: 54882 10/30/19 19 PPPS, subseq visit CPT-4: G0439 09/17/2018 PPPS, subseq visit CPT-4: G0439 08/25/2017 PPPS, subseq visit CPT-4: G0439 03/28/2015 PRESCRIP TRANSMIT VIA ERX SY CPT-4: G8553 11/17/2014 DESTRUCT PREMALG LESION (Cryosurgery) CPT-4: 45439 PRESCRIP TRANSMIT VIA ERX SY CPT-4: G8553 09/26/2014 PRESCRIP TRANSMIT VIA ERX SY CPT-4: G8553 03/15/2014 PPPS, subseq visit CPT-4: G0439 04/27/2013 PRESCRIP TRANSMIT VIA ERX SY CPT-4: G8553 05/23/2011 PRESCRIP TRANSMIT VIA ERX SY CPT-4: G8553 11/22/2010 [facility] URINE CULTURE/ COLONY COUNT CPT-4: 74645 08/04/19 11 [facility] URINE CULTURE/ COLONY COUNT CPT-4: 69379 07/24/19 11 URINALYSIS NONAUTO W/O SCOPE CPT-4: 54290 07/23/2010 IMMUNIZATION ADMIN CPT-4: 60495 01/01/2010 TDAP VACCINE 7 YRS/> IM CPT-4: 56983 01/01/2010 FLU VACCINE 3 YRS & > IM UP 64 CPT-4: 32592 0 ADMIN INFLUENZA VIRUS VAC CPT-4: G0008 11/23/2009 PRESCRIP TRANSMIT VIA ERX SY CPT-4: G8553 11/23/2009 Vital Signs Date Vital 04/22/2022 Blood Pressure 1: 126/74 Code: 8480-6 Heart Rate 1: 75 bpm Respiratory Rate: 20 bpm SpO2: 96% Temperature: 36.3 (C) / 97.3 (F) We ight: 174 lbs Code: 25434-0 02/18/2022 Blood Pressure 1: 130/72 Code: 8480-6 Heart Rate 1: 72 bpm Height: 5'9" Code: 8302-2 SpO2: 95% Temperature: 36.3 (C) / 97.3 (F) 02/04/2022 Blood Pressure 1: 117/68 Code: 8480-6 Heart Rate 1: 51 bpm Height: Code: 8302-2 SpO2: 100% Temperature: 35.9 (C) / 96.7 (F) Weight: Code: 53300-8 01/17/2022 Blood Pressure 1: 113/71 Code: 8480-6 BMI: 25.7 Code: 57460-4 Heart Rate 1: 64 bpm Height: 5'9" Code: 8302-2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 04/27/2013 Patient Education: Patient Medication Summary Completed 04/27/2013 Patient Education: [facility] - Saving AutoInj - 18+ - Dynamic Portal ID Completed 04/27/2013 Appointment: Tish Noe WPtel: [address] [place], [place] [phone] ACUTE ILLNESS 04/22/2013 Visit Plan: Rx written for wheelchair an d depends Continue current meds Pt has labs q 6mos 04/06/2013 Appointment: Tish Noe WPtel: [address] [place], [place] [phone] 04/01 hung up when tried to verify ACUTE ILLNESS 04/06/2013 Patient Education: Patient Medication Summary Completed 04/06/2013 Appointment: Tish Noe WPtel: [address] [place], [place] [phone] Insurance coverage issues left without being seen ACUTE ILLNESS 12/30/2012 Appointment: Tish Noe WPtel: [address] [place], [place] [phone] FOLLOW UP 03/31/2012 Appointment: Tish Noe WPtel: [address] [place], [place] [phone] [place] Tried to reach to reschedule; no working phone numbers 02/27 mailed letter to patient /2 - rescheduled appt 01/14/13 - will call back and reschedule when [employer] goes into effect New Have called moved appt up FOLLOW UP 03/16/2012 Visit Plan: Continue current meds 12/02/2011 Appointment: Tish Noe WPtel: [address] [place], [place] [phone] CHECK UP 12/02/2011 Patient Education: Patient Medication Summary Completed 12/02/2011 Visit Plan: No evidence of parkinson's t remor on exam--discussed parkinson's symptoms with dog license officer supervisor 10/01/2011 Appointment: Tish Noe WPtel: [address] [place], [place] [phone] FOLLOW UP 10/01/2011 Patient Education: Patient Medication Summary Completed 10/01/2011 Visit Plan: Proceed with hearing evaluat ion Proceed with repeat CT of head DC Amitiza 07/22/2011 Appointment: Tish Noe WPtel: [address] [place], [place] [phone] ACUTE ILLNESS 07/22/2011 Patient Education: Patient Medication Summary Completed 07/22/2011 Visit Plan: will continue Loratidine. an d will use Azithromycin. Will notify if no improvement. Benadryl at bedtime PRN. 05/23/2011 Appointment: Kiley Wilson WPtel: [address] [place], [place] [phone] ACUTE ILLNESS 05/23/2011 Patient Education: Patient Medication Summary Completed 05/23/2011 Visit Plan: Continue claritin Add Z-pack 11/22/2010 Appointment: Tish Noe WPtel: [address] [place], [place] [phone] FOLLOW UP 11/22/2010 Patient Education: Patient Medication Summary Completed 11/22/2010 Appointment: Tish Noe WPtel: [address] [place], [place] [phone] UA 08/03/2010 Patient Education: Patient Medication Summary Completed 08/03/2010 Appointment: Tish Noe WPtel: [address] [place], [place] [phone] UA 07/23/2010 Patient Education: Patient Medication Summary Completed 07/23/2010 Visit Plan: Cont current meds Repeat lab in 6mos 05/24/2010 Appointment: Tish Noe WPtel: [address] [place], [place] [phone] FOLLOW UP 05/24/2010 Patient Education: Patient Medication Summary Completed 05/24/2010 Appointment: Tish Noe WPtel: [address] [place], [place] [phone] SPORTS PHYSICAL 01/01/2010 Patient Education: Patient Medication Summary Completed 01/01/2010 Appointment: Tish Noe WPtel: [address] [place], [place] [phone] FOLLOW UP 11/23/2009 Patient Education: Patient Medication Summary Completed 11/23/2009 Visit Plan: Check CMP, CBC, TSH, Free T4 , Depakote level, Vit D, B12, Lipids Start Abilify 5mg QD See Psych 10/24/2009 Appointment: Tish Noe WPtel: [address] [place], [place] [phone] ESTABLISHED PATIENT 10/24/2009 Patient Education: Patient Medication Summary Completed 10/24/2009 Visit Plan: Caregiver present states the pt. has not complained of pain or other symptoms. Swelling is present on left upper cheek. Caregiver states the pt. has eaten normally over the last few days. Pt. reports pain with eating. Instructed care asst to seek re-eval if symptoms persist or fever appears. OTC Tylenol or Motrin for discomfort recommended. 06/23/2009 Appointment: Kiley Wilson WPtel: [address] [place] [address] ACUTE ILLNESS 06/23/2009 Patient Education: Patient Medication Summary Completed 06/23/2009 Referral: Yajaira Corea WPtel: [address] [place] [address] Referral Initiated Referral: Gilbert Covarrubias WPtel: [phone] [id number] [place] Referral Initiated Referral: Jordan, Earl Richter WPtel: [phone] [id number] [place] Referral Initiated Instructions Comment Date . [...] tremor on e xam--discussed parkinson's symptoms with dog license officer supervisor 10/01/2011 . Proceed with hearing evaluation Proceed [...] days. Pt. reports pain with eating. Instructed care asst to seek re-eval if symptoms persist or [...]
--- OUTSIDE RECORDS SUMMARY | 2022-07-03 13:16 | XMS REPORT | CCD ---
Author Author Steve Noe D.O. Organization TISH NOE DO [facility] Address [address] [place] [address] Phone Care Team Providers Care Manipulative Therapy Specialist Name Role Phone Tish Noe D.O., PP Unavailable CCM Unavailable Summary Purpose Interface Exchange Insurance Providers Payer name Policy type / Coverage type Covered alliance party ID Effective Begin Date Effective End Date WPS MEDICARE PART B [place] Medicare Part B [id number] 2018 Unknown AETNA [facility] Medicare Part B [id number] Unknown Family history Father Diagnosis Age At Onset *Denies any medical problems Unknown Mother Diagnosis Age At Onset *Denies any medical problems Unknown Social History Social History Element Codes Description Effective Dates Tobacco history SNOMED CT: 194661403 Never smoker 11/17/2014 Marital status Unknown Single [...] Start Date Stop Date Status Fill Instructions polyethylene glycol 3350 17 gram/dose oral powder RxNorm: 87 6193 DRINK 17 GRAMS MIXED INTO 8 OZS. OF JUICE OR WATER TWICE DAILY 06/24/2022 08/22/2022 Active loratadine 10 mg tablet RxNorm: 758841 TAKE 1 TABLET BY MOUTH DAILY 06/12/2022 12/14/2022 Active PLEASE NEW RX+REFILLS FOR 31 DAYS THANKS Culturelle 10 billion cell capsule RxNorm: 667727 Take 1 Capsul e(s) Oral QD 06/06/2022 08/04/2022 Active tetracycline 500 mg capsule RxNorm: 074530 Take 1 Capsu le(s) Oral four times a day 2022 05/30/2022 Inactive tetracycline 500 mg capsule RxNorm: 378917 1 Capsule(s) Oral fo ur times a day 2022 2022 Inactive Macrobid 100 mg capsule RxNorm: 946119 Take 1 Capsule(s) Oral t wo times a day 05/20/2022 05/20/2022 Inactive Macrobid 100 mg capsule RxNorm: 335449 1 Capsule(s) Oral two ti mes a day 05/20/2022 05/20/2022 Inactive pregabalin 50 mg capsule RxNorm: 603106 Take 1 Capsule(s) Oral QAM 05/15/2022 05/15/2022 Inactive Stimulant Laxative Plus 8.6 mg-50 mg tablet RxNorm: 601537 TAKE 2 TABLETS BY MOUTH TWICE DAILY 05/13/2022 08/13/2022 Active PLEASE NEW RX+ REFILLS FOR 31 DAYS THANKS Cipro 250 mg tablet RxNorm: 395657 Take 1 Tablet(s) Oral two ti mes a day 04/29/2022 05/08/2022 Inactive Cipro 250 mg tablet RxNorm: 156377 1 Tablet(s) Oral two times a day 04/29/2022 04/29/2022 Inactive Keppra 100 mg/mL oral solution RxNorm: 973170 Take 15 M illiliter(s) Oral two times a day 04/22/2022 08/19/2022 Active omeprazole 40 mg capsule,delayed release RxNorm: 688658 Take 1 Capsule(s) Oral QD 04/15/2022 10/11/2022 Active RX QTT LEFT NOT ENOUGH FOR 93 DAYS PLEASE NEW RX+REFILLS THANKS ketoconazole 2 % shampoo RxNorm: 903715 APPLY TO FACE TWICE PER WEE K 04/10/2022 05/09/2022 Inactive ciclopirox 8 % topical solution RxNorm: 015897 APPLY TO AFFECTED TOENAILS EVERY NIGHT AT BEDTIME OR 8 HOURS BEFORE WASHING 03/26/2022 04/24/2022 Inact dalia aripiprazole 10 mg tablet RxNorm: 105033 Take 1 Tablet(s) Oral HS 0 03/25/2022 05/25/2022 Inactive RX NEED A NEW RX+REF ILLS FOR 93 DAYS THANKS mirtazapine 15 mg tablet RxNorm: 243299 Take 1 Tablet(s) Oral HS 05/25/2022 Inactive RX NEED A NEW RX+REF ILLS FOR 93 DAYS THANKS citalopram 40 mg tablet RxNorm: 183992 Take 1 Tablet(s) Oral QD 05/25/2022 Inactive RX NEED A NEW RX+REF ILLS FOR 93 DAYS THANKS polyethylene glycol 3350 17 gram/dose oral powder RxNorm: 87 6193 DRINK 17 GRAMS MIXED INTO 8 OZS. OF JUICE OR WATER TWICE DAILY 03/25/2022 06/22/2022 Inactive Keppra 100 mg/mL oral solution RxNorm: 433204 Take 10 M illiliter(s) Oral two times a day 03/25/2022 03/25/2022 Inactive Keppra 100 mg/mL oral solution RxNorm: 819458 Take 10 M illiliter(s) Oral two times a day 03/25/2022 04/21/2022 Inactive lamotrigine 100 mg tablet RxNorm: 920446 Take 1 Tablet(s) Oral two times a day 03/18/2022 04/21/2022 Inactive PLEASE NEW RX+REFIIL S FOR 93 DAYS THANKS PrePlus 27 mg iron-1 mg tablet RxNorm: Take 1 Tablet(s) Oral Q D 03/13/2022 03/19/2023 Active PLEASE NEW RX+REFIILS FOR 93 DAYS THANKS loratadine 10 mg tablet RxNorm: 145698 Take 1 Tablet(s) Oral QD 05/20/2022 Inactive Lamictal 100 mg tablet RxNorm: 345204 Take 1 Tablet(s) Oral two times a day 02/20/2022 02/20/2022 Inactive Keppra 1,000 mg tablet RxNorm: 543548 Take 1 Tablet(s) Oral two times a day 02/18/2022 04/21/2022 Inactive loratadine 10 mg tablet RxNorm: 734373 TAKE 1 TABLET BY MOUTH 2 TIMES DAILY Take 1 Tablet(s) Oral two times a day 02/18/2022 02/19/2022 Inactive PLEASE NEW RX+REFILLS FOR 31 DAYS THANKS cephalexin 500 mg capsule RxNorm: 292620 Take 1 Capsule (s) Oral three times a day 02/18/2022 02/24/2022 Inactive fluticasone propionate 50 mcg/actuation nasal spray,suspensi on RxNorm: 8050687 SPRAY 1 SPRAY INTO EACH NOSTRIL TWICE DAILY 02/12/2022 08/10/2022 Acti ve omeprazole 40 mg capsule,delayed release RxNorm: 401449 Take 1 Capsule(s) Oral QD 02/12/2022 02/12/2022 Inactive Patient reques ts 90 days supply Stimulant Laxative Plus 8.6 mg-50 mg tablet RxNorm: 086881 TAKE 2 TABLETS BY MOUTH TWICE DAILY 02/12/2022 04/21/2022 Inactive PLEASE NEW RX+ REFILLS FOR 31 DAYS THANKS Lamictal 100 mg tablet RxNorm: 275537 Take 1 Tablet(s) Oral two times a day 02/11/2022 02/11/2022 Inactive Lamictal 100 mg tablet RxNorm: 580467 1 Tablet(s) Oral two time s a day 02/11/2022 02/11/2022 Inactive omeprazole 40 mg capsule,delayed release RxNorm: 599970 Take 1 Capsule(s) Oral QD 02/07/2022 02/07/2022 Inactive Patient reques ts 90 days supply Culturelle 10 billion cell capsule RxNorm: 390227 Take 1 Capsul e(s) Oral QD 02/05/2022 02/05/2022 Inactive Keppra 500 mg tablet RxNorm: 242497 Take 1 Tablet(s) Oral QD 202102/17/2022 Inactive Benadryl Allergy 25 mg tablet RxNorm: 0447251 Take 1 Tab let(s) Oral Every 6 hours as needed for hives 01/17/2022 No Stop Date Active pregabalin 50 mg capsule RxNorm: 944317 Take 1 Capsule(s) Oral QAM 01/01/2022 02/04/2022 Inactive pregabalin 25 mg capsule RxNorm: 485218 Take 1 Capsule(s) Oral QAM 01/01/2022 01/01/2022 Inactive Lamictal 100 mg tablet RxNorm: 442759 Take 1 Tablet(s) Oral QD 03/202102/04/2022 Inactive levetiracetam 250 mg tablet RxNorm: 517629 Take 1 Table t(s) Oral two times a day 01/01/2022 01/01/2022 Inactive Keppra 1,000 mg tablet RxNorm: 966014 Take 1 Tablet(s) Oral two times a day replaces 500mg dose 01/01/2022 02/17/2022 Inactive Depakote 500 mg tablet,delayed release RxNorm: 0251794 T willi 1 Tablet(s) Oral two times a day 01/01/2022 01/01/2022 Inactive Augmentin 500 mg-125 mg tablet RxNorm: 975455 1 Tablet(s) Oral two times a day 12/25/2021 12/25/2021 Inactive Augmentin 500 mg-125 mg tablet RxNorm: 393275 Take 1 Ta blet(s) Oral two times a day 12/25/2021 12/29/2021 Inactive Depakote 250 mg tablet,delayed release RxNorm: 9516852 T willi 1 Tablet(s) Oral two times a day for seizure 12/17/2021 12/31/2021 Inactive pregabalin 50 mg capsule RxNorm: 194986 TAKE 1 CAPSULE BY MOUTH EACH MORNING 12/12/2021 12/31/2021 Inactive PLEASE NEW RX+REFILL S FOR 31 DAYS. THANKS pregabalin 25 mg capsule RxNorm: 410178 Take 1 Capsule(s) Oral two times a day 12/12/2021 12/31/2021 Inactive loratadine 10 mg tablet RxNorm: 210077 TAKE 1 TABLET BY MOUTH DAILY 12/08/2021 12/08/2021 Inactive PLEASE NEW RX+REFILLS FOR 31 DAYS THANKS fluticasone propionate 50 mcg/actuation nasal spray,suspensi on RxNorm: 1321639 SPRAY 1 SPRAY INTO EACH NOSTRIL TWICE DAILY 12/04/2021 12/04/2021 Inac tive levetiracetam 1,000 mg tablet RxNorm: 963497 Take 1 Tablet(s) O ral QPM 12/04/2021 12/11/2021 Inactive levetiracetam 750 mg tablet RxNorm: 171926 Take 1 Tablet(s) Oral QA M 12/04/2021 12/11/2021 Inactive levetiracetam 750 mg tablet RxNorm: 208315 Take 1 Tablet(s) Oral QA M 11/26/2021 11/26/2021 Inactive levetiracetam 1,000 mg tablet RxNorm: 718820 Take 1 Tablet(s) O ral QPM 11/26/2021 11/26/2021 Inactive levetiracetam 750 mg tablet RxNorm: 123552 Take 1 Tablet(s) Oral QA M 11/26/2021 12/31/2021 Inactive levetiracetam 1,000 mg tablet RxNorm: 175526 Take 1 Tablet(s) O ral QPM 11/26/2021 12/31/2021 Inactive levetiracetam 750 mg tablet RxNorm: 739472 Take 1 Tablet(s) Oral QA M 11/19/2021 11/26/2021 Inactive melatonin 5 mg tablet RxNorm: 238935 TAKE 1 TABLET BY M OUTH DAILY IN THE EVENING NEEDED FOR SLEEP 11/06/2021 11/06/2021 Inactive melatonin 5 mg tablet RxNorm: 032622 Take 1 Tablet(s) O ral every night at bedtime 11/06/2021 12/31/2021 Inactive Senna Plus 8.6 mg-50 mg tablet RxNorm: 034298 Take 1 Ta blet(s) Oral two times a day 10/16/2021 11/14/2021 Inactive nystatin 100,000 unit/gram topical cream RxNorm: 116414 Apply Application Topical two times a day to lateral foot rash for 2 weeks and as needed for scaling rash 10/16/2021 No Stop Date Active metronidazole 0.75 % lotion RxNorm: 328829 Take Application Top ical QPM to face 10/16/2021 No Stop Date Active pregabalin 25 mg capsule RxNorm: 475389 Take 1 Capsule(s) Oral two times a day 10/16/2021 12/12/2021 Inactive levetiracetam 1,000 mg tablet RxNorm: 761155 Take 1 Tablet(s) O ral QPM 10/16/2021 10/16/2021 Inactive RX QTY LEFT NOT ENOU GH FOR 31 DAYS PLEASE NEW RX+REFILLS THANKS Keppra 500 mg tablet RxNorm: 633931 Take 1 Tablet(s) Or al QAM replaces 1000mg AM dose 10/16/2021 11/26/2021 Inactive polyethylene glycol 3350 17 gram/dose oral powder RxNorm: 87 6193 DRINK 17 GRAMS MIXED INTO 8 OZS. OF JUICE OR WATER TWICE DAILY 10/12/2021 10/12/2021 Inactive ketoconazole 2 % shampoo RxNorm: 855352 APPLY TO FACE TWICE PER WEE K 09/19/2021 09/19/2021 Inactive PrePlus 27 mg iron-1 mg tablet RxNorm: Take 1 Tablet(s) Oral Q D 09/12/2021 11/10/2021 Inactive RX QTY LEFT NOT ENOUGH FOR 9 3 DAYS PLEASE NEW RX+REFILLS THANKS Culturelle 10 billion cell capsule RxNorm: 995000 Take 1 Capsul e(s) Oral QD 09/10/2021 09/10/2021 Inactive Stimulant Laxative Plus 8.6 mg-50 mg tablet RxNorm: 067781 TAKE 2 TABLETS BY MOUTH TWICE DAILY 08/14/2021 10/15/2021 Inactive PLEASE NEW RX+ REFILLS FOR 31 DAYS THANKS pregabalin 50 mg capsule RxNorm: 542447 TAKE 1 CAPSULE BY MOUTH EACH MORNING 07/15/2021 10/15/2021 Inactive PLEASE NEW RX+REFILL S FOR 31 DAYS. THANKS pregabalin 25 mg capsule RxNorm: 417337 Take 1 Capsule(s) Oral HS 0 07/15/2021 10/15/2021 Inactive PLEASE NEW RX+REFILLS FOR 31 DAYS. THANKS levetiracetam 1,000 mg tablet RxNorm: 511306 Take 1 Tab let(s) Oral two times a day 06/11/2021 10/15/2021 Inactive RX QTY LEFT NOT ENOUGH FOR 31 DAYS PLEASE NEW RX+REFILLS THANKS loratadine 10 mg tablet RxNorm: 879943 TAKE 1 TABLET BY MOUTH DAILY 06/11/2021 06/11/2021 Inactive PLEASE NEW RX+REFILLS FOR 31 DAYS. THANKS Keppra 1,000 mg tablet RxNorm: 831875 Take 1 Tablet(s) Oral two times a day 05/08/2021 05/08/2021 Inactive Keppra 1,000 mg tablet RxNorm: 597608 Take 1 Tablet(s) Oral two times a day 05/08/2021 05/07/2021 Inactive ciclopirox 8 % topical solution RxNorm: 386114 Take Top ical QD to the affected area(s)preferably at bedtime or 8 hours before washing--to toenails 05/08/2021 10/15/2021 Inactive melatonin 5 mg capsule RxNorm: 689815 Take 1 Capsule(s) Oral QPM as needed for sleep 04/25/2021 10/21/2021 Inactive polyethylene glycol 3350 17 gram/dose oral powder RxNorm: 87 6193 DRINK 17 GRAMS MIXED INTO 8 OZS. OF JUICE OR WATER TWICE DAILY 04/24/2021 04/24/2021 Inactive Culturelle 10 billion cell capsule RxNorm: 776618 Take 1 Capsul e(s) Oral QD 04/16/2021 04/16/2021 Inactive pregabalin 25 mg capsule RxNorm: 096544 Take 1 Capsule(s) Oral HS 0 04/13/2021 04/13/2021 Inactive PLEASE NEW RX+REFILLS FOR 31 DAYS. THANKS pregabalin 50 mg capsule RxNorm: 508604 TAKE 1 CAPSULE BY MOUTH EACH MORNING 04/13/2021 04/13/2021 Inactive PLEASE NEW RX+REFILL S FOR 31 DAYS. THANKS fluticasone propionate 50 mcg/actuation nasal spray,suspensi on RxNorm: 7338967 SPRAY 1 SPRAY INTO EACH NOSTRIL TWICE DAILY 03/13/2021 03/13/2021 Inac tive polyethylene glycol 3350 17 gram/dose oral powder RxNorm: 87 6193 DRINK 17 GRAMS MIXED INTO 8 OZS. OF JUICE OR WATER TWICE DAILY 03/05/2021 04/03/2021 Inactive Gavilax 17 gram/dose oral powder RxNorm: 943846 DRINK 1 7 GRAMS MIXED INTO 8 OZS. OF JUICE OR WATER TWICE DAILY 02/27/2021 02/27/2021 Inactive Stimulant Laxative Plus 8.6 mg-50 mg tablet RxNorm: 870823 TAKE 2 TABLETS BY MOUTH TWICE DAILY 02/16/2021 02/16/2021 Inactive Tucks (diana grant) 50 % topical pads RxNorm: 143436 Ta ke Application Topical four times a day as needed 02/05/2021 No Stop Date Active citalopram 40 mg tablet RxNorm: 221852 Take 1 Tablet(s) Oral QD 08/202003/25/2022 Inactive Culturelle 10 billion cell capsule RxNorm: 508014 Take 1 Capsul e(s) Oral QD 02/05/2021 04/16/2021 Inactive melatonin 5 mg capsule RxNorm: 648402 Take 1 Capsule(s) Oral QPM as needed for sleep 02/05/2021 02/05/2021 Inactive Keppra 750 mg tablet RxNorm: 912727 Take 1 Tablet(s) Or al two times a day replaces 500mg dose 02/05/2021 05/07/2021 Inactive Keppra 500 mg tablet RxNorm: 525627 Take 1 Tablet(s) Oral two t imes a day 01/17/2021 02/04/2021 Inactive Keppra 500 mg tablet RxNorm: 099943 Take 1 Tablet(s) Oral two t imes a day 01/17/2021 01/17/2021 Inactive Culturelle 10 billion cell capsule RxNorm: 956078 Take 1 Capsule(s) Oral QD as needed 01/16/2021 02/04/2021 Inactive levofloxacin 250 mg tablet RxNorm: 788309 Take 1 Tablet(s) Oral QD 01/04/2021 01/13/2021 Inactive cranberry 450 mg tablet RxNorm: Take 1 Tablet(s) Oral tw o times a day 12/14/2020 No Stop Date Active Gold Rosario Medicated 0.8 %-5 % topical powder RxNorm: 088790 Top ical as needed 12/14/2020 No Stop Date Active hydrocortisone 1 % topical cream RxNorm: 851273 Topical as needed 1 No Stop Date Active Gavilax 17 gram/dose oral powder RxNorm: 940667 Give 17 Gram(s) Oral two times a day in 8 ounces of juice/water 12/14/2020 10/15/2021 Inactive Culturelle 10 billion cell capsule RxNorm: 280009 Take 1 Capsule(s) Oral QD as needed 12/14/2020 01/16/2021 Inactive mirtazapine 15 mg tablet RxNorm: 275199 Take 1 Tablet(s ) Oral every night at bedtime 12/14/2020 03/25/2022 Inactive aripiprazole 10 mg tablet RxNorm: 737198 Take 1 Tablet(s) Oral QD 1 03/25/2022 Inactive pregabalin 25 mg capsule RxNorm: 777896 Take 1 Capsule(s) Oral HS 1 12/13/2020 Inactive loratadine 10 mg tablet RxNorm: 036884 TAKE 1 TABLET BY MOUTH DAILY 12/13/2020 12/13/2020 Inactive pregabalin 50 mg capsule RxNorm: 931737 TAKE 1 CAPSULE BY MOUTH EACH MORNING 12/13/2020 12/13/2020 Inactive Gavilax 17 gram/dose oral powder RxNorm: 481212 DRINK 1 7 GRAMS MIXED INTO 8 OZS. OF JUICE OR WATER TWICE DAILY 12/05/2020 12/13/2020 Inactive fluticasone propionate 50 mcg/actuation nasal spray,suspensi on RxNorm: 4004065 USE 1 SPRAY IN EACH NOSTRIL TWICE DAILY 11/16/2020 11/16/2020 Inactive pregabalin 25 mg capsule RxNorm: 397005 Take 1 Capsule(s) Oral HS 0 11/12/2020 11/12/2020 Inactive pregabalin 50 mg capsule RxNorm: 960794 TAKE 1 CAPSULE BY MOUTH EACH MORNING 11/12/2020 11/12/2020 Inactive Gavilax 17 gram/dose oral powder RxNorm: 857507 DRINK 1 7 GRAMS MIXED INTO 8 OZS. OF JUICE OR WATER TWICE DAILY 10/16/2020 11/14/2020 Inactive PrePlus 27 mg iron-1 mg tablet RxNorm: Take 1 Tablet(s) Oral Q D 10/12/2020 11/11/2020 Inactive pregabalin 50 mg capsule RxNorm: 156181 TAKE 1 CAPSULE BY MOUTH EACH MORNING 10/12/2020 10/12/2020 Inactive Stimulant Laxative Plus 8.6 mg-50 mg tablet RxNorm: 099790 TAKE 2 TABLETS BY MOUTH TWICE DAILY 10/12/2020 10/12/2020 Inactive pregabalin 25 mg capsule RxNorm: 586811 Take 1 Capsule(s) Oral HS 0 10/12/2020 10/12/2020 Inactive loratadine 10 mg tablet RxNorm: 337122 TAKE 1 TABLET BY MOUTH DAILY 09/12/2020 09/12/2020 Inactive ketoconazole 2 % shampoo RxNorm: 179049 1 Application T opical twice weekly to face 07/20/2020 07/20/2020 Inactive OUT OF REFILLS Senna-S 8.6 mg-50 mg tablet RxNorm: 388852 TAKE 2 TABLETS BY MO UTH TWICE DAILY 07/17/2020 07/17/2020 Inactive PLEASE NEW RX+REFILL S FOR 31 DAYS. THANKS Miralax 17 gram oral powder packet RxNorm: 115527 TAKE 17 GRAMS MIXED INTO 8 OZS. OF JUICE OR WATER TWICE DAILY 06/27/2020 12/13/2020 Inactive OUT OF REFILLS Lyrica 25 mg capsule RxNorm: 405115 TAKE 1 CAPSULE BY M OUTH DAILY AT BEDTIME Capsule(s) Oral 06/14/2020 06/14/2020 Inactive Lyrica 50 mg capsule RxNorm: 958614 Capsule(s) Oral GM E 1 CAPSULE BY MOUTH EACH MORNING 06/14/2020 06/14/2020 Inactive fluticasone propionate 50 mcg/actuation nasal spray,suspensi on RxNorm: 1430931 1 [place] Nasal two times a day 06/06/2020 06/06/2020 Inactive OUT OF REFILLS Plus 27 mg-1 mg tablet RxNorm: 1 Tablet(s) PO Q D 1 Tablet(s) Oral QD 05/10/2020 10/15/2021 Inactive Senna-S 8.6 mg-50 mg tablet RxNorm: 700525 TAKE 2 TABLETS BY MO [facility] TWICE DAILY 04/10/2020 07/11/2020 Inactive PLEASE NEW RX+REFILL S FOR 31 DAYS. THANKS loratadine 10 mg tablet RxNorm: 158981 TAKE 1 TABLET BY MOUTH DAILY 04/10/2020 04/10/2020 Inactive PLEASE NEW RX+REFILLS FOR 31 DAYS. THANKS ketoconazole 2 % shampoo RxNorm: 549923 1 Application T opical twice weekly to face 03/22/2020 07/19/2020 Inactive OUT OF REFILLS Lyrica 50 mg capsule RxNorm: 448101 Capsule(s) Oral GM E 1 CAPSULE BY MOUTH EACH MORNING 02/10/2020 06/12/2020 Inactive Lyrica 25 mg capsule RxNorm: 224234 TAKE 1 CAPSULE BY [facility] DAILY AT BEDTIME Capsule(s) Oral 02/10/2020 06/08/2020 Inactive Senna-S 8.6 mg-50 mg tablet RxNorm: 773075 TAKE 2 TABLETS BY MO [facility] TWICE DAILY 01/13/2020 04/09/2020 Inactive PLEASE NEW RX+REFILL S FOR 31 DAYS. THANKS Miralax 17 gram oral powder packet RxNorm: 110523 TAKE 17 GRAMS MIXED INTO 8 OZS. OF JUICE OR WATER TWICE DAILY 01/10/2020 06/26/2020 Inactive OUT OF REFILLS Miralax 17 gram oral powder packet RxNorm: 667817 TAKE 17 GRAMS MIXED INTO 8 OZS. OF JUICE OR WATER TWICE DAILY 12/15/2019 01/09/2020 Inactive OUT OF REFILLS ketoconazole 2 % shampoo RxNorm: 916380 APPLY TO FACE TWICE PER WEE K 12/09/2019 03/21/2020 Inactive OUT OF REFILLS Plus 27 mg-1 mg tablet RxNorm: 1 Tablet(s) PO Q D 1 Tablet(s) Oral QD 11/17/2019 05/09/2020 Inactive loratadine 10 mg tablet RxNorm: 009496 TAKE 1 TABLET BY MOUTH DAILY 11/17/2019 04/09/2020 Inactive PLEASE NEW RX+REFILLS FOR 31 DAYS. THANKS Lyrica 50 mg capsule RxNorm: 291984 Capsule(s) Oral GM E 1 CAPSULE BY MOUTH EACH MORNING 10/18/2019 02/08/2020 Inactive Lyrica 25 mg capsule RxNorm: 835322 TAKE 1 CAPSULE BY OUTH DAILY AT BEDTIME Capsule(s) Oral 10/18/2019 02/13/2020 Inactive Senna-S 8.6 mg-50 mg tablet RxNorm: 310640 TAKE 2 TABLETS BY MO [place] TWICE DAILY 10/18/2019 01/12/2020 Inactive PLEASE NEW RX+REFILL S FOR 31 DAYS. THANKS Bactrim DS 800 mg-160 mg tablet RxNorm: 101130 1 Tablet(s) Oral two times a day 10/04/2019 10/10/2019 Inactive Vitamin C 500 mg tablet RxNorm: 706896 1 Tablet(s) Oral QD 09/22/19 20 12/31/2021 Inactive citalopram 10 mg tablet RxNorm: 200340 1 Tablet(s) Oral QD 09/22/19 20 02/04/2021 Inactive omeprazole 40 mg capsule,delayed release RxNorm: 362176 1 Capsule(s) Oral QD for reflux 08/16/2019 09/21/2019 Inactive Clindagel 1 % topical gel, once daily RxNorm: 647334 Ap plication Topical QPM to face rash or prn for rosacea 07/21/2019 12/13/2020 Inactive loratadine 10 mg tablet RxNorm: 911216 TAKE 1 TABLET BY MOUTH DAILY 07/19/2019 11/15/2019 Inactive PLEASE NEW RX+REFILLS FOR 31 DAYS. THANKS Senna-S 8.6 mg-50 mg tablet RxNorm: 136776 TAKE 2 TABLETS BY MO UT TWICE A DAY 07/19/2019 10/17/2019 Inactive PLEASE NEW RX+REFILL S FOR 31 DAYS. THANKS fluticasone propionate 50 mcg/actuation nasal spray,suspensi on RxNorm: 7925256 USE 1 SPRAY IN EACH NOSTRIL TWICE DAILY 07/01/2019 06/05/2020 Inactive OUT OF REFILLS Lyrica 50 mg capsule RxNorm: 300142 Capsule(s) Oral GM E 1 CAPSULE BY MOUTH EACH MORNING 06/16/2019 10/16/2019 Inactive Lyrica 25 mg capsule RxNorm: 237744 TAKE 1 CAPSULE BY M OUTH DAILY AT BEDTIME Capsule(s) Oral 06/16/2019 10/12/2019 Inactive Plus 27 mg-1 mg tablet RxNorm: 1 Tablet(s) PO Q D 1 Tablet(s) Oral QD 2019 11/16/2019 Inactive triamcinolone acetonide 0.025 % topical cream RxNorm: 014176 4 1 Application Topical two times a day apply thin layer to cheeks 05/03/2019 0 Inactive Lyrica 50 mg capsule RxNorm: 191269 Capsule(s) TAKE 1 C APSULE BY MOUTH EACH MORNING 02/22/2019 06/25/2019 Inactive Lyrica 25 mg capsule RxNorm: 565793 TAKE 1 CAPSULE BY MOUTH DOMINICK LY AT BEDTIME 02/22/2019 06/21/2019 Inactive loratadine 10 mg tablet RxNorm: 259874 TAKE 1 TABLET BY MOUTH DAILY 01/21/2019 03/23/2019 Inactive PLEASE NEW RX+REFILLS FOR 31 DAYS. THANKS Senna-S 8.6 mg-50 mg tablet RxNorm: 730453 TAKE 2 TABLETS BY [facility] TWICE A DAY 01/21/2019 07/18/2019 Inactive PLEASE NEW RX+REFILL S FOR 31 DAYS. THANKS Macrobid 100 mg capsule RxNorm: 256893 1 Capsule(s) Oral two ti mes a day 01/11/2019 01/10/2019 Inactive Macrobid 100 mg capsule RxNorm: 555368 1 Capsule(s) Oral two ti mes a day 01/11/2019 01/21/2019 Inactive Cipro 250 mg tablet RxNorm: 455692 1 Tablet(s) Oral two times a day 01/05/2019 01/12/2019 Inactive Senna-S 8.6 mg-50 mg tablet RxNorm: 128972 TAKE 2 TABLETS BY MO [facility] TWICE A DAY 12/21/2018 01/20/2019 Inactive NEED A NEW RX+REFILL S PLEASE FOR 31 DAYS. THANKS Plus 27 mg-1 mg tablet RxNorm: 1 Tablet(s) PO QD 11/0205/20/2019 Inactive doxycycline hyclate 100 mg capsule RxNorm: 3775216 1 Cap edison(s) Oral two times a day 11/23/2018 11/30/2018 Inactive doxycycline hyclate 100 mg capsule RxNorm: 3269437 1 Cap edison(s) Oral two times a day 11/23/2018 11/22/2018 Inactive loratadine 10 mg tablet RxNorm: 318907 1 Tablet(s) PO QD 11/23/2018 1 03/22/2018 Inactive doxycycline hyclate 100 mg capsule RxNorm: 4558783 1 Cap edison(s) Oral two times a day 11/23/2018 11/22/2018 Inactive Macrobid 100 mg capsule RxNorm: 274159 1 Capsule(s) PO BID 11/05/1911/10/2018 Inactive Macrobid 100 mg capsule RxNorm: 017059 1 Capsule(s) PO BID 11/05/19 19 11/03/2018 Inactive Bactrim DS 800 mg-160 mg tablet RxNorm: 730893 1 Tablet(s) PO BID 0 10/29/2018 10/28/2018 Inactive Bactrim DS 800 mg-160 mg tablet RxNorm: 458483 1 Tablet(s) PO BID 0 10/29/2018 11/03/2018 Inactive Miralax 17 gram oral powder packet RxNorm: 288658 TAKE 17 GRAMS MIXED INTO 8 OZS. OF JUICE OR WATER TWICE DAILY 10/15/2018 01/15/2019 Inactive OUT OF REFILLS fluconazole 100 mg tablet RxNorm: 882833 1 Tablet(s) PO QD 10/13/19 19 10/18/2018 Inactive clotrimazole-betamethasone 1 %-0.05 % topical cream RxNorm: 421682 Application TOP BID to foot rash for 1-2 weeks 10/12/2018 09/21/2019 Inactive fluticasone propionate 50 mcg/actuation nasal spray,suspensi on RxNorm: 3795493 USE 1 SPRAY IN EACH NOSTRIL TWICE DAILY 09/01/2018 12/29/2018 Inactive Senna-S 8.6 mg-50 mg tablet RxNorm: 894775 TAKE 2 TABLETS BY [facility] TWICE A DAY 08/19/2018 12/20/2018 Inactive nystatin 100,000 unit/gram topical cream RxNorm: 088471 1 Gram( s) TOP BID 08/10/2018 08/09/2018 Inactive acyclovir 800 mg tablet RxNorm: 094842 1 Tablet(s) PO 5x day 201808/09/2018 Inactive nystatin 100,000 unit/gram topical cream RxNorm: 640544 1 Gram( s) TOP BID 08/10/2018 08/19/2018 Inactive acyclovir 800 mg tablet RxNorm: 081484 1 Tablet(s) PO 5x day 201808/16/2018 Inactive Miralax 17 gram oral powder packet RxNorm: 409276 TAKE 17 GRAMS MIXED INTO 8 OZS. OF JUICE OR WATER TWICE DAILY 07/31/2018 10/14/2018 Inactive Lyrica 25 mg capsule RxNorm: 320627 TAKE 1 CAPSULE BY MOUTH DOMINICK LY AT BEDTIME 07/16/2018 08/14/2018 Inactive nystatin 100,000 unit/gram topical powder RxNorm: 981754 1 Application TOP BID to upper thighs for 14 days 06/29/2018 07/12/2018 Inactive nystatin 100,000 unit/gram topical powder RxNorm: 381977 1 Application TOP BID to upper thighs for 14 days 06/29/2018 06/28/2018 Inactive Plus 27 mg-1 mg tablet RxNorm: 1 Tablet(s) PO QD 06/0111/22/2018 Inactive loratadine 10 mg tablet RxNorm: 955384 1 Tablet(s) PO QD 06/16/2018 0 11/22/2018 Inactive Miralax 17 gram oral powder packet RxNorm: 499300 TAKE 17 GRAMS MIXED INTO 8 OZS. OF JUICE OR WATER TWICE DAILY 05/19/2018 07/30/2018 Inactive ketoconazole 2 % shampoo RxNorm: 537999 APPLY TO FACE TWICE PER WEE K 05/04/2018 11/29/2018 Inactive Macrobid 100 mg capsule RxNorm: 551766 1 Capsule(s) PO BID 04/17/19 19 04/16/2018 Inactive Macrobid 100 mg capsule RxNorm: 337662 1 Capsule(s) PO BID 04/17/1904/26/2018 Inactive Zithromax Z-Vu 250 mg tablet RxNorm: 051532 Tablet(s) PO As Di rected 02/26/2018 03/02/2018 Inactive Tessaljasvir Perles 100 mg capsule RxNorm: 771988 1 Capsule (s) PO TID as needed for cough 02/26/2018 01/04/2019 Inactive Senna-S 8.6 mg-50 mg tablet RxNorm: 072588 2 Tablet(s) PO BID 02/1608/14/2018 Inactive Miralax 17 gram oral powder packet RxNorm: 701828 TAKE 17 GRAMS MIXED INTO 8 OZS. OF JUICE OR WATER TWICE DAILY 01/08/2018 04/10/2018 Inactive Miralax 17 gram oral powder packet RxNorm: 643365 1 Tab let(s) PO BID TAKE 17 GRAMS MIXED INTO 8 OZS. OF JUICE OR WATER TWICE DAILY 11/17/20172017 Inactive Miralax 17 gram oral powder packet RxNorm: 248628 1 Tab let(s) PO QD TAKE 17 GRAMS MIXED INTO 8 OZS. OF JUICE OR WATER once DAILY 11/04/2017 021 Inactive polymyxin B sulfate 10,000 unit-trimethoprim 1 mg/mL eye bandar ps RxNorm: 736238 2 Drop(s) ophthalmic (eye) Q4H while awake 10/29/2017 11/04/2017 Inactiv e Lyrica 25 mg capsule RxNorm: 776619 TAKE 1 CAPSULE BY MOUTH EAC H EVENING 10/20/2017 07/16/2018 Inactive Senna-S 8.6 mg-50 mg tablet RxNorm: 710681 2 Tablet(s) PO BID 10/2002/15/2018 Inactive Lyrica 50 mg capsule RxNorm: 122800 TAKE 1 CAPSULE BY MOUTH EAC H MORNING 10/20/2017 01/20/2018 Inactive loratadine 10 mg tablet RxNorm: 623835 Tablet(s) TAKE 1 TABLET BY MOUTH DAILY 10/20/2017 06/16/2018 Inactive Plus 27 mg-1 mg tablet RxNorm: Tablet(s) TAKE 1 TABLET BY MOUTH DAILY 10/20/2017 06/16/2018 Inactive nystatin 100,000 unit/gram topical cream RxNorm: 602730 Gram(s) TOP BID for 2 weeks 09/16/2017 09/21/2019 Inactive loratadine 10 mg tablet RxNorm: 969106 TAKE 1 TABLET BY MOUTH DAILY 08/18/2017 10/20/2017 Inactive Plus 27 mg-1 mg tablet RxNorm: TAKE 1 TABLET BY MOUTH DAILY 08/18/2017 10/20/2017 Inactive Miralax 17 gram oral powder packet RxNorm: 716139 1 Tab let(s) PO BID TAKE 17 GRAMS MIXED INTO 8 OZS. OF JUICE OR WATER TWICE DAILY 06/13/20172017 Inactive Miralax 17 gram oral powder packet RxNorm: 366432 1 Tab let(s) PO BID TAKE 17 GRAMS MIXED INTO 8 OZS. OF JUICE OR WATER TWICE DAILY 06/13/20172020 Inactive doxycycline hyclate 100 mg capsule RxNorm: 8650975 1 Capsule(s) PO BID 06/06/2017 06/05/2017 Inactive Cipro 250 mg tablet RxNorm: 646419 1 Tablet(s) PO BID 06/06/201706/01 Inactive Cipro 250 mg tablet RxNorm: 414312 1 Tablet(s) PO BID 06/06/201707/2017 Inactive doxycycline hyclate 100 mg capsule RxNorm: 7734868 1 Capsule(s) PO BID 06/06/2017 06/12/2017 Inactive Senna-S 8.6 mg-50 mg tablet RxNorm: 350809 2 Tablet(s) PO BID 05/1910/20/2017 Inactive Miralax 17 gram oral powder packet RxNorm: 618736 1 Tab let(s) PO BID TAKE 17 GRAMS MIXED INTO 8 OZS. OF JUICE OR WATER TWICE DAILY 01/06/20172017 Inactive Senna-S 8.6 mg-50 mg tablet RxNorm: 824213 2 Tablet(s) PO BID 12/1105/19/2017 Inactive Abilify 5 mg tablet RxNorm: 395934 1 Tablet(s) PO QHS 11/21/201612/01 Inactive docusate sodium 100 mg capsule RxNorm: 1995478 1 Capsule(s) PO BID 09/17/2016 09/21/2019 Inactive [AttnRPh: Saving apply/adjud icate RxGRP:SG20 RxBIN:[id number] RxPCN:HT ID#:[id number]] loratadine 10 mg tablet RxNorm: 745905 1 Tablet(s) PO QD 09/17/2016 0 08/17/2017 Inactive [AttnRPh: Saving apply/adjudicate RxGRP: SG20 RxBIN:[id number] RxPCN:HT ID#:[id number]] Plus 27 mg-1 mg tablet RxNorm: 1 Tablet(s) PO QD 08/3108/17/2017 Inactive [AttnRPh: Saving apply/adjud icate RxGRP:SG20 RxBIN:[id number] RxPCN:HT ID#:[id number]] Calcium + D 600 mg (1,500 mg)-200 unit tablet RxNorm: 369888 1 Tablet(s) PO QD 09/17/2016 09/21/2019 Inactive ketoconazole 2 % shampoo RxNorm: 021064 APPLY TO FACE TWICE PER WEE K 08/26/2016 02/21/2017 Inactive fluticasone propionate 50 mcg/actuation nasal spray,suspensi on RxNorm: 7857673 [place] USE 1 SPRAY IN EACH NOSTRIL TWICE A DAY 07/30/2016 01/25/2017 In active Miralax 17 gram oral powder packet RxNorm: 128586 TAKE 17 GRAMS MIXED INTO 8 OZS. OF JUICE OR WATER TWICE DAILY 07/30/2016 01/06/2017 Inactive Senna-S 8.6 mg-50 mg tablet RxNorm: 514797 2 Tablet(s) PO BID 07/1512/10/2016 Inactive Lyrica 50 mg capsule RxNorm: 907653 TAKE 1 CAPSULE BY MOUTH EAC H MORNING 07/11/2016 08/09/2016 Inactive Miralax 17 gram oral powder packet RxNorm: 840133 TAKE 17 GRAMS MIXED INTO 8 OZS. OF JUICE OR WATER TWICE DAILY 07/04/2016 07/29/2016 Inactive Miralax 17 gram oral powder packet RxNorm: 108060 TAKE 17 GRAMS MIXED INTO 8 OZS. OF JUICE OR WATER TWICE DAILY 07/04/2016 08/03/2016 Inactive Miralax 17 gram oral powder packet RxNorm: 711771 TAKE 17 GRAMS MIXED INTO 8 OZS. OF JUICE OR WATER TWICE DAILY 06/13/2016 07/03/2016 Inactive benztropine 2 mg tablet RxNorm: 958288 1 Tablet(s) PO BID 04/15/2016 09/21/2019 Inactive ketoconazole 2 % shampoo RxNorm: 562284 APPLY TO FACE TWICE PER WEE K 04/01/2016 08/25/2016 Inactive ketoconazole 2 % shampoo RxNorm: 448865 APPLY TO FACE TWICE PER WEE K 04/01/2016 12/13/2020 Inactive Miralax 17 gram oral powder packet RxNorm: 077275 TAKE 17 GRAMS MIXED INTO 8 OZS. OF JUICE OR WATER TWICE DAILY 03/29/2016 06/12/2016 Inactive calcium carbonate 600 mg calcium (1,500 mg)-vit D3 1,0 00 unit capsule RxNorm: 9414886 1 Capsule(s) PO QD 03/15/2016 09/17/2016 Inactive fluticasone 50 mcg/actuation nasal spray,suspension RxNorm: 2538152 [place] USE 1 SPRAY IN EACH NOSTRIL TWICE A DAY 03/04/2016 07/29/2016 Inactive Miralax 17 gram oral powder packet RxNorm: 999602 1 Uni t Dose PO BID in 6-8oz water daily 02/28/2016 03/28/2016 Inactive attnrph: saving apply/adjudicate rxgrp:sg20 rxbin:[id number] rxpcn: id#:[id number] Senna-S 8.6 mg-50 mg tablet RxNorm: 026091 TAKE TWO TABLETS ORA LLY TWICE A DAY 01/18/2016 07/15/2016 Inactive ketoconazole 2 % shampoo RxNorm: 190554 APPLY TO FACE TWICE PER WEE K 12/04/2015 03/31/2016 Inactive benztropine 2 mg tablet RxNorm: 099718 1 Tablet(s) PO BID 11/20/2015 04/14/2016 Inactive cefuroxime axetil 250 mg tablet RxNorm: 207209 1 Tablet(s) PO BID 0 11/13/2015 11/19/2015 Inactive cefuroxime axetil 250 mg tablet RxNorm: 996716 1 Tablet(s) PO BID 0 11/13/2015 11/12/2015 Inactive ketoconazole 2 % shampoo RxNorm: 578305 APPLY TO FACE TWICE PER WEE K 11/08/2015 12/03/2015 Inactive loratadine 10 mg tablet RxNorm: 504033 1 Tablet(s) PO QD 10/16/2015 0 09/16/2016 Inactive [AttnRPh: Saving apply/adjudicate RxGRP: SG20 RxBIN:[id number] RxPCN:HT ID#:[id number]] docusate sodium 100 mg capsule RxNorm: 5793663 1 Capsule(s) PO BID 10/16/2015 09/17/2016 Inactive [AttnRPh: Saving apply/adjud icate RxGRP:SG20 RxBIN:[id number] RxPCN:HT ID#:[id number]] Plus 27 mg-1 mg tablet RxNorm: 1 Tablet(s) PO QD 10/0109/16/2016 Inactive [AttnRPh: Saving apply/adjud icate RxGRP:SG20 RxBIN:[id number] RxPCN:HT ID#:[id number]] Miralax 17 gram oral powder packet RxNorm: 640791 1 Uni t Dose PO BID in 6-8oz water daily 09/29/2015 09/28/2015 Inactive attnrph: saving apply/adjudicate rxgrp:sg20 rxbin:[id number] rxpcn: id#:[id number] fluticasone 50 mcg/actuation nasal spray,suspension RxNorm: 1327749 USE 1 SPRAY IN EACH NOSTRIL TWICE A DAY 09/12/2015 03/04/2016 Inactive benztropine 2 mg tablet RxNorm: 245068 1 Tablet(s) PO BID 09/11/2015 11/20/2015 Inactive benztropine 2 mg tablet RxNorm: 109124 1 Tablet(s) PO BID 07/25/2015 09/10/2015 Inactive ketoconazole 2 % shampoo RxNorm: 945823 APPLY TO FACE TWICE PER WEE K 07/24/2015 11/07/2015 Inactive Senna-S 8.6 mg-50 mg tablet RxNorm: 587969 TAKE TWO TABLETS ORA LLY TWICE A DAY 07/13/2015 01/14/2016 Inactive ketoconazole 2 % shampoo RxNorm: 850834 APPLY TO FACE TWICE PER WEE K 06/30/2015 07/23/2015 Inactive Miralax 17 gram oral powder packet RxNorm: 936507 1 Uni t Dose PO BID in 6-8oz water daily 06/19/2015 09/29/2015 Inactive attnrph: saving apply/adjudicate rxgrp:sg20 rxbin:[id number] rxpcn:ht id#:[id number] fluticasone 50 mcg/actuation nasal spray,suspension RxNorm: 837017 1 [place] NASAL BID 05/29/2015 09/11/2015 Inactive Opcon-A 0.80992 %-0.315 % eye drops RxNorm: 6553609 2 Drop(s) OP H PRN as needed 04/26/2015 04/25/2015 Inactive Culturelle 10 billion cell capsule RxNorm: 076730 1 Capsule(s) PO QD prn 04/26/2015 09/21/2019 Inactive calcium carbonate-vitamin D3 600 mg (1,500 mg)-1,000 u nit capsule RxNorm: 8877476 1 Capsule(s) PO QD 04/24/2015 07/06/2015 Inactive Senna-S 8.6 mg-50 mg tablet RxNorm: 147425 TAKE TWO TABLETS ORA LLY TWICE A DAY 04/24/2015 07/12/2015 Inactive ketoconazole 2 % shampoo RxNorm: 415527 1 Application TOP twice weekly to face 04/11/2015 06/29/2015 Inactive Senna-S 8.6 mg-50 mg tablet RxNorm: 019704 2 Tablet(s) PO QD TAKE 2 TABLETS ORALLY TWICE A DAY 01/20/2015 04/23/2015 Inactive out of refill s Miralax 17 gram oral powder packet RxNorm: 048016 1 Uni t Dose PO BID in 6-8oz water daily 11/21/2014 12/13/2020 Inactive attnrph: saving apply/adjudicate rxgrp:sg20 rxbin:967174 rxpcn:ht id#:[id number] Flonase Allergy Relief 50 mcg/actuation nasal spray,suspensi on RxNorm: 2 [place] NASAL QHS 11/21/2014 07/22/2016 Inactive azithromycin 250 mg tablet RxNorm: 999135 2 Tablet(s) P O on day one, then one tablet on days 2 - 5 11/18/2014 12/20/2014 Inactive azithromycin 250 mg tablet RxNorm: 331297 2 Tablet(s) P O on day one, then one tablet on days 2 - 5 11/17/2014 11/17/2014 Inactive fluticasone 50 mcg/actuation nasal spray,suspension RxNorm: 078678 1 [place] NASAL BID 11/09/2014 11/08/2014 Inactive Plus 27 mg-1 mg tablet RxNorm: 1 Tablet(s) PO QD 10/0110/13/2015 Inactive [AttnRPh: Saving apply/adjud icate RxGRP:SG20 RxBIN:[id number] RxPCN: ID#:[id number]] Plus 27 mg-1 mg tablet RxNorm: 1 Tablet(s) PO QD 09/0110/18/2014 Inactive [AttnRPh: Saving apply/adjud icate RxGRP:SG20 RxBIN:[id number] RxPCN: ID#:[id number]] nystatin-triamcinolone 100,000 unit/g-0.1 % topical cream RxNorm : 1375795 BID 09/26/2014 10/09/2014 Inactive docusate sodium 100 mg capsule RxNorm: 8606350 1 Capsule(s) PO BID 09/26/2014 10/15/2015 Inactive [AttnRPh: Saving apply/adjud icate RxGRP:SG20 RxBIN:[id number] RxPCN:HT ID#:[id number]] trihexyphenidyl 2 mg tablet RxNorm: 529758 1 Tablet(s) PO BID 09/2612/20/2014 Inactive Miralax 17 gram oral powder packet RxNorm: 032625 1 Uni t Dose PO BID in 6-8oz water daily 09/26/2014 11/20/2014 Inactive attnrph: saving apply/adjudicate rxgrp:sg20 rxbin:[id number] rxpcn: id#:[id number] loratadine 10 mg tablet RxNorm: 526724 Tablet(s) 1 Tabl et(s) PO QD 1 Tablet(s) PO QD 09/26/2014 10/16/2015 Inactive [AttnRPh: Saving apply/adjudicate RxGRP:SG20 RxBIN:[id number] RxPCN:HT ID#:[id number]] ketoconazole 2 % shampoo RxNorm: 517874 1 BIW lather and rinse after 10 min 09/26/2014 04/10/2015 Inactive Calcium + D 600 mg (1,500 mg)-200 unit tablet RxNorm: 832658 1 Tablet(s) PO QD 09/26/2014 09/19/2015 Inactive Senna-S 8.6 mg-50 mg tablet RxNorm: 420572 2 Tablet(s) PO QD TAKE 2 TABLETS ORALLY TWICE A DAY 09/26/2014 01/19/2015 Inactive out of refill s Senna-S 8.6 mg-50 mg tablet RxNorm: 473997 2 Tablet(s) PO QD TAKE 2 TABLETS ORALLY TWICE A DAY 07/20/2014 09/25/2014 Inactive out of refill s [AttnRPh: Saving apply/adjudicate RxGRP:SG20 RxBIN:[id number] RxPCN:HT ID#:[id number]] loratadine 10 mg tablet RxNorm: 885896 1 Tablet(s) PO QD 1 Tabl et(s) PO QD 04/25/2014 09/25/2014 Inactive [AttnRPh: Saving deyanira ly/adjudicate RxGRP:SG20 RxBIN:[id number] RxPCN:HT ID#:[id number]] docusate sodium 100 mg capsule RxNorm: 7288098 1 Capsule(s) PO BID 04/04/2014 09/25/2014 Inactive [AttnRPh: Saving apply/adjud icate RxGRP:SG20 RxBIN:[id number] RxPCN:HT ID#:[id number]] Senna-S 8.6 mg-50 mg tablet RxNorm: 130294 2 Tablet(s) PO QD TAKE 2 TABLETS ORALLY TWICE A DAY 03/15/2014 07/19/2014 Inactive OUT OF REFILL S [AttnRPh: Saving apply/adjudicate RxGRP:SG20 RxBIN:517261 RxPCN:HT ID#:[id number]] nystatin 100,000 unit/gram topical cream RxNorm: 778782 Applica tion TOP BID 03/15/2014 07/22/2016 Inactive [AttnRPh: Saving deyanira ly/adjudicate RxGRP:SG20 RxBIN:034351 RxPCN:HT ID#:[id number]] Miralax 17 gram oral powder packet RxNorm: 072476 1 Uni t Dose PO BID in 6-8oz water daily 03/15/2014 09/25/2014 Inactive AttnRPh: Saving apply/adjudicate RxGRP:SG20 RxBIN:055936 RxPCN:HT ID#:[id number] [AttnRPh: Saving apply/adjudicate RxGRP:SG20 RxBIN:489101 RxPCN:HT ID#:[id number]] Senna-S 8.6 mg-50 mg tablet RxNorm: 568431 2 Tablet(s) PO QD TAKE 2 TABLETS ORALLY TWICE A DAY 03/09/2014 03/14/2014 Inactive OUT OF REFILL S loratadine 10 mg tablet RxNorm: 765768 1 Tablet(s) PO QD 1 Tabl et(s) PO QD 10/28/2013 04/24/2014 Inactive [AttnRPh: Saving deyanira ly/adjudicate RxGRP:SG20 RxBIN:803060 RxPCN:HT ID#:[id number]] docusate sodium 100 mg capsule RxNorm: 2902892 1 Capsule(s) PO BID 10/21/2013 04/03/2014 Inactive [AttnRPh: Saving apply/adjud icate RxGRP:SG20 RxBIN:794114 RxPCN:HT ID#:[id number]] Plus 27 mg-1 mg tablet RxNorm: 1 Tablet(s) PO QD 06/201309/25/2014 Inactive [AttnRPh: Saving apply/adjud icate RxGRP:SG20 RxBIN:584187 RxPCN:HT ID#:[id number]] Calcium + D 600 mg (1,500)-200 unit tablet RxNorm: 884297 1 Tab let(s) PO QD 09/21/2013 09/25/2014 Inactive loratadine 10 mg tablet RxNorm: 531729 1 Tablet(s) PO QD 1 Tabl et(s) PO QD 07/06/2013 10/28/2013 Inactive docusate sodium 100 mg capsule RxNorm: 6589522 1 Capsule(s) PO BID 04/12/2013 10/21/2013 Inactive Senna-S 8.6 mg-50 mg tablet RxNorm: 052992 2 Tablet(s) PO BID 01/0503/09/2014 Inactive loratadine 10 mg tablet RxNorm: 522364 1 Tablet(s) PO QD 01/04/2013 0 07/06/2013 Inactive Senna-S 8.6 mg-50 mg tablet RxNorm: 077507 2 Tablet(s) PO BID 01/0401/04/2013 Inactive loratadine 10 mg tablet RxNorm: 2154592 1 Tablet(s) PO QD 10/05/2012 01/04/2013 Inactive Senna-S 8.6 mg-50 mg tablet RxNorm: 964050 2 Tablet(s) PO BID 10/0501/04/2013 Inactive Calcium + D 600 mg (1,500)-200 unit tablet RxNorm: 740067 1 Tab let(s) PO QD 09/11/2012 09/21/2013 Inactive docusate sodium 100 mg capsule RxNorm: 5966555 1 Capsule(s) PO BID 09/10/2012 03/08/2013 Inactive Plus 27 mg-1 mg tablet RxNorm: 1 Tablet(s) PO QD 08/3109/04/2013 Inactive Senna-S 8.6 mg-50 mg tablet RxNorm: 063946 2 Tablet(s) PO BID 09/1010/04/2012 Inactive loratadine 10 mg tablet RxNorm: 9530713 1 Tablet(s) PO QD 09/10/2012 09/09/2012 Active divalproex ER 500 mg tablet,extended release 24 hr RxNorm: 1 710159 1 Tablet(s) PO BID 09/10/2012 09/21/2019 Inactive Nasonex 50 mcg/actuation [place] RxNorm: 583073 1 [place] NASAL BID 07/22/2016 Inactive Depakote 500 mg tablet,delayed release RxNorm: 7316696 1 Tablet( s) PO BID 08/10/2012 12/20/2014 Inactive loratadine 10 mg tablet RxNorm: 4929639 1 Tablet(s) PO QD 06/29/2012 09/09/2012 Inactive docusate sodium 100 mg capsule RxNorm: 8524883 1 Capsule(s) PO BID 06/29/2012 09/09/2012 Inactive divalproex 250 mg tablet,delayed release RxNorm: 7870948 1 Table t(s) PO QPM 06/08/2012 09/21/2019 Inactive Depakote 500 mg tablet,delayed release RxNorm: 8863153 1 Tablet( s) PO BID 04/13/2012 07/11/2012 Inactive Senna-S 8.6 mg-50 mg tablet RxNorm: 308112 2 Tablet(s) PO BID 03/1604/14/2012 Inactive Plus 27 mg-1 mg tablet RxNorm: 1 Tablet(s) PO QD 01/3109/09/2012 Inactive divalproex ER 500 mg tablet,extended release 24 hr RxNorm: 1 275956 1 Tablet(s) PO BID 02/10/2012 04/09/2012 Inactive divalproex 250 mg tablet,delayed release RxNorm: 0403810 1 Table t(s) PO QPM 09/30/2011 04/26/2012 Inactive Nasonex 50 mcg/actuation [place] RxNorm: 6139333 1 [place] NASAL BID 03/13/2012 Inactive Depakote 500 mg tablet,delayed release RxNorm: 8213922 1 Tablet( s) PO BID 08/14/2011 02/09/2012 Inactive divalproex ER 500 mg tablet,extended release 24 hr RxNorm: 1 924833 1 Tablet(s) PO BID 06/17/2011 08/15/2011 Inactive Benadryl 25 mg Cap RxNorm: 8330533 1 Capsule(s) PO QHS as needed for sinus drainage. May cause drowsiness. 05/23/2011 11/29/2013 Inactive divalproex ER 500 mg 24 hr Tab RxNorm: 6937346 1 Tablet(s) PO BID 0 04/15/2011 06/13/2011 Inactive Nasonex 50 mcg/actuation [place] RxNorm: 5010893 1 [place] NASAL BID 09/15/2011 Inactive Amitiza 24 mcg Cap RxNorm: 003368 1 Capsule(s) PO BID 03/19/201105/01 Inactive Sennalax-S 8.6 mg-50 mg Tab RxNorm: 477325 2 Tablet(s) PO BID 03/1907/16/2011 Inactive Nasonex 50 mcg/Actuation [place] RxNorm: 6477814 1 [place] NASAL BID 03/24/2011 Inactive divalproex 250 mg Tab, Delayed Release RxNorm: 4919112 1 Tablet( s) PO QPM 02/27/2011 09/24/2011 Inactive Plus 27 mg-1 mg tablet RxNorm: 1 Tablet(s) PO QD 02/0105/20/2011 Inactive divalproex ER 500 mg 24 hr Tab RxNorm: 9262425 1 Tablet(s) PO BID 1 04/15/2010 04/12/2011 Inactive Amitiza 24 mcg Cap RxNorm: 893808 1 Capsule(s) PO BID 01/14/201103/03 Inactive Nasonex 50 mcg/Actuation [place] RxNorm: 6693693 1 [place] NASAL BID 03/16/2011 Inactive Depakote 500 mg Tab RxNorm: 4058267 1 Tablet(s) PO BID 09/18/2010 Inactive divalproex 250 mg Tab, Delayed Release RxNorm: 0964726 1 Tablet( s) PO QPM 07/31/2010 02/25/2011 Inactive Amitiza 24 mcg Cap RxNorm: 811685 1 Capsule(s) PO BID 06/19/201001/01 Inactive divalproex ER 500 mg 24 hr Tab RxNorm: 8286362 1 Tablet(s) PO BID 0 03/27/2010 09/22/2010 Inactive Amitiza 24 mcg Cap RxNorm: 205153 1 Capsule(s) PO BID 03/20/201006/01 Inactive Sennalax-S 8.6 mg-50 mg Tab RxNorm: 371436 2 Tablet(s) PO BID 03/2007/17/2010 Inactive divalproex 250 mg Tab, Delayed Release RxNorm: 8679422 1 Tablet( s) PO QPM 03/06/2010 07/30/2010 Inactive Amitiza 24 mcg Cap RxNorm: 298269 1 Capsule(s) PO BID 12/27/200903/03 Inactive Abilify 5 mg Tab RxNorm: 273780 1 Tablet(s) PO QD 12/13/2009 01/01/20 10 Inactive Abilify 5 mg Tab RxNorm: 880963 1 Tablet(s) PO QD 11/23/2009 12/13/19 10 Inactive Nasonex 50 mcg/Actuation [place] RxNorm: 2327320 1 [place] NASAL BID 11/06/2009 Active Divalproex 250 mg Tab, Delayed Release RxNorm: 0184678 1 Tablet( s) PO QHS 10/26/2009 12/31/2009 Inactive Divalproex 250 mg Tab, Delayed Release RxNorm: 2343826 1 Tablet( s) PO QHS 10/26/2009 10/25/2009 Inactive Fluoxetine 10 mg Tab RxNorm: 443315 1 Tablet(s) PO QD 10/26/200912/03 Inactive Abilify 5 mg Tab RxNorm: 916051 1 Tablet(s) PO QD 10/24/2009 11/23/19 10 Inactive Amitiza 24 mcg Cap RxNorm: 295922 1 Capsule(s) PO BID 09/28/200910/02 Inactive divalproex SR 500 mg 24 hr Tab RxNorm: 3718409 1 Tablet(s) PO BID 0 08/31/2009 10/29/2009 Inactive Divalproex SR 500 mg 24 hr Tab RxNorm: 0586699 1 Tablet(s) PO BID 0 08/23/2009 08/30/2009 Inactive Sennalax-S 8.6 mg-50 mg Tab RxNorm: 438711 2 Tablet(s) PO BID 08/1709/15/2009 Inactive Divalproex SR 500 mg 24 hr Tab RxNorm: 9347247 1 Tablet(s) PO BID 0 07/20/2009 08/18/2009 Inactive Clindamycin 300 mg Cap RxNorm: 113913 1 Capsule(s) PO BID 06/23/2009 06/29/2009 Inactive Tylenol Extra Strength 500 mg Tab RxNorm: 128299 Tablet(s) PO PRN Active Pepto-Bismol 262 mg chewable tablet RxNorm: 091045 Tablet(s) PO as needed 07/07/2015 Active Robitussin Cough-Congestion 100 mg/5 mL syrup RxNorm: 574952 Milliliter(s) PO as needed 07/07/2015 Active alprazolam 1 mg tablet RxNorm: 769817 1 Tablet(s) PO QD as needed 0 07/07/2015 12/13/2020 Inactive Opcon-A 0.55746 %-0.315 % Eye Drops RxNorm: 0655964 Drop(s) OPH PRN 04/26/2015 04/25/2015 Inactive Amitiza 24 mcg Cap RxNorm: 056577 1 Capsule(s) PO BID 09/28/200909/01 Inactive Depakote 250 mg Tab RxNorm: 5937088 1 Tablet(s) PO QPM 01/01/2010 Inactive fluticasone 50 mcg/actuation nasal spray,suspension RxNorm: 060706 1 [place] NASAL BID 11/09/2014 11/08/2014 Inactive Mucinex 600 mg tablet, extended release RxNorm: 137204 Tablet(s ) PO as needed 07/07/2015 12/13/2020 Inactive Depakote 500 mg Tab RxNorm: 7510238 1 Tablet(s) PO BID 09/18/2010 Inactive Ketoconazole 2 % Shampoo RxNorm: 924661 1 TOP PRN 09/26/2014 015 Inactive alfalfa 650 mg tablet RxNorm: 506220 1 Tablet(s) PO QID 09/22/2019 Inactive Culturelle 10 billion cell capsule RxNorm: 659246 Capsule(s) PO as needed 09/22/2019 09/21/2019 Inactive bethanechol chloride 50 mg tablet RxNorm: 277158 1 Tablet(s) PO AC & HS 09/22/2019 09/21/2019 Inactive loratadine 10 mg tablet RxNorm: 9220304 1 Tablet(s) PO QD 06/29/2012 06/28/2012 Inactive Senna Concentrate Oral RxNorm: Oral 03/20/2010 03/20/2010 Inact dalia desmopressin 0.2 mg tablet RxNorm: 940093 3 Tablet(s) PO QHS 201707/13/2017 Inactive Fluoxetine 10 mg Tab RxNorm: 378349 1 Tablet(s) PO QD 10/26/200910/02 Inactive azithromycin 250 mg Tab RxNorm: 347436 Tablet(s) PO gm e 2 tablets on day one and one tablet on days 2-5. 10/01/2011 09/30/2011 Inactive Lyrica 25 mg capsule RxNorm: 021799 1 Capsule(s) PO QPM 10/20/2017 Inactive docusate sodium 100 mg capsule RxNorm: 8860590 1 Capsule(s) PO BID 06/29/2012 06/28/2012 Inactive Senna-S 8.6 mg-50 mg tablet RxNorm: 654682 Tablet(s) PO 03/16/2012 Inactive Zithromax Z-Vu 250 mg Tab RxNorm: 012397 Tablet(s) PO 10/01/2011 Inactive as directed ketoconazole 2 % shampoo RxNorm: 174281 1 Application TOP twice weekly to face 04/11/2015 04/10/2015 Inactive Abilify 10 mg Tab RxNorm: 605777 1 Tablet(s) PO QD 11/21/2016 017 Inactive Lyrica 50 mg capsule RxNorm: 898179 1 Capsule(s) PO QAM 07/11/2016 Inactive divalproex 250 mg Tab, Delayed Release RxNorm: 1381034 1 Tablet( s) PO QPM 03/06/2010 03/05/2010 Inactive Flonase 50 mcg/Actuation Nasal [place] RxNorm: 4530648 1 [place] JOSE AL BID 11/22/2010 11/21/2010 Inactive Cerovite Advanced Formula Oral RxNorm: Oral 12/02/2011 12/01/19 12 Inactive trihexyphenidyl 2 mg tablet RxNorm: 324935 1 Tablet(s) PO BID 09/2609/25/2014 Inactive Culturelle 10 billion cell Cap RxNorm: 445073 1 Capsule(s) PO QD pr n 04/26/2015 04/25/2015 Inactive Flonase Allergy Relief 50 mcg/actuation nasal spray,suspensi on RxNorm: 2 [place] NASAL QHS 11/21/2014 11/20/2014 Inactive trihexyphenidyl 5 mg tablet RxNorm: 267704 1 Tablet(s) PO BID 09/2109/21/2019 Inactive Amitiza 24 mcg Cap RxNorm: 873943 1 Capsule(s) PO QAM 12/27/200912/02 Inactive Milk of Magnesia 400 mg/5 mL oral suspension RxNorm: 652322 30 Milliliter(s) PO QD as needed 06/30/2017 12/13/2020 Inactive Miralax 17 gram oral powder packet RxNorm: 323572 1 Uni t Dose PO QD in 6-8oz water daily 03/15/2014 03/14/2014 Inactive AttnRPh: Saving apply/adjudicate RxGRP:SG20 RxBIN:[id number] RxPCN: ID#:[id number] Calcium + D 600 mg (1,500)-200 unit tablet RxNorm: 447607 1 Tab let(s) PO QD 09/11/2012 09/10/2012 Inactive Flonase 50 mcg/actuation nasal spray,suspension RxNorm: 8963 23 2 [place] NASAL QHS 11/09/2014 11/09/2014 Inactive Benadryl 25 mg capsule RxNorm: 6726854 Capsule(s) PO as needed 08/201512/13/2020 Inactive Nasonex 50 mcg/Actuation [place] RxNorm: 5551301 1 NASAL PRN 010 11/06/2009 Inactive benztropine 2 mg tablet RxNorm: 591469 1 Tablet(s) PO BID 07/25/2015 07/24/2015 Inactive Lamisil AT 1 % topical cream RxNorm: 568616 1 Applicati on TOP BID for 2-4 weeks for athletes foot 07/07/2015 07/06/2015 Inactive Medication Administered No Medication Administered data Immunizations Vaccine Codes Dose Date Status Influenza (Adult) CVX: 141 11/23/2009 Results Observation Observation Code Item Item Code Result Date S ervice Location CANCEL [id number] CANCEL FOOTNOTE 07/25/2010 Unknown Procedures Procedure Codes Date URINALYSIS NONAUTO W/O SCOPE CPT-4: 79390 10/04/2019 [facility] URINE CULTURE/ COLONY COUNT CPT-4: 12285 10/04/19 20 PPPS, subseq visit CPT-4: G0439 09/22/2019 [facility] URINE CULTURE/ COLONY COUNT CPT-4: 70619 01/06/20 19 URINALYSIS NONAUTO W/O SCOPE CPT-4: 92699 01/05/2019 URINALYSIS NONAUTO W/O SCOPE CPT-4: 39311 10/29/2018 [facility] URINE CULTURE/ COLONY COUNT CPT-4: 27354 10/30/19 19 PPPS, subseq visit CPT-4: G0439 09/17/2018 PPPS, subseq visit CPT-4: G0439 08/25/2017 PPPS, subseq visit CPT-4: G0439 03/28/2015 PRESCRIP TRANSMIT VIA ERX SY CPT-4: G8553 11/17/2014 DESTRUCT PREMALG LESION (Cryosurgery) CPT-4: 79107 PRESCRIP TRANSMIT VIA ERX SY CPT-4: G8553 09/26/2014 PRESCRIP TRANSMIT VIA ERX SY CPT-4: G8553 03/15/2014 PPPS, subseq visit CPT-4: G0439 04/27/2013 PRESCRIP TRANSMIT VIA ERX SY CPT-4: G8553 05/23/2011 PRESCRIP TRANSMIT VIA ERX SY CPT-4: G8553 11/22/2010 RML URINE CULTURE/ COLONY COUNT CPT-4: 79756 08/04/19 11 [facility] URINE CULTURE/ COLONY COUNT CPT-4: 29346 07/24/19 11 URINALYSIS NONAUTO W/O SCOPE CPT-4: 98702 07/23/2010 IMMUNIZATION ADMIN CPT-4: 08861 01/01/2010 TDAP VACCINE 7 YRS/> IM CPT-4: 32046 01/01/2010 FLU VACCINE 3 YRS & > IM UP 64 CPT-4: 79796 0 ADMIN INFLUENZA VIRUS VAC CPT-4: G0008 11/23/2009 PRESCRIP TRANSMIT VIA ERX SY CPT-4: G8553 11/23/2009 Vital Signs Date Vital 04/22/2022 Blood Pressure 1: 126/74 Code: 8480-6 Heart Rate 1: 75 bpm Respiratory Rate: 20 bpm SpO2: 96% Temperature: 36.3 (C) / 97.3 (F) We ight: 174 lbs Code: 73894-9 02/18/2022 Blood Pressure 1: 130/72 Code: 8480-6 Heart Rate 1: 72 bpm Height: 5'9" Code: 8302-2 SpO2: 95% Temperature: 36.3 (C) / 97.3 (F) 02/04/2022 Blood Pressure 1: 117/68 Code: 8480-6 Heart Rate 1: 51 bpm Height: Code: 8302-2 SpO2: 100% Temperature: 35.9 (C) / 96.7 (F) Weight: Code: 06004-3 01/17/2022 Blood Pressure 1: 113/71 Code: 8480-6 BMI: 25.7 Code: 26165-3 Heart Rate 1: 64 bpm Height: 5'9" Code: 8302-2 SpO2: 99% Temperature: 3 6.3 (C) / 97.3 (F) Weight: 174 lbs Code: 75025-7 01/01/2022 Blood Pressure 1: 132/74 Code: 8480-6 BMI: 25.7 Code: 04295-6 Heart Rate 1: 66 bpm Height: 5'9"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 [facility] - Saving AutoInj - 18+ - Dynamic Portal ID Completed 04/27/2013 Appointment: Tish Noe WPtel: [address] [place], [place] [phone] ACUTE ILLNESS 04/22/2013 Visit Plan: Rx written for wheelchair an d depends Continue current meds Pt has labs q 6mos 04/06/2013 Appointment: Tish Noe WPtel: [address] [place], [place] [phone] 04/01 hung up when tried to verify ACUTE ILLNESS 04/06/2013 Patient Education: Patient Medication Summary Completed 04/06/2013 Appointment: Tish Noe WPtel: [address] [place] [phone] Insurance coverage issues left without being seen ACUTE ILLNESS 12/30/2012 Appointment: Tish Noe WPtel: [address] [place], [place] [phone] FOLLOW UP 03/31/2012 Appointment: Tish Noe WPtel: [address] [place], [place] [phone] Tried to reach to reschedule; no working phone numbers 02/27 mailed letter to patient /2 - rescheduled appt 01/14/13 - will call back and reschedule when [employer] goes into effect New Have called moved appt up FOLLOW UP 03/16/2012 Visit Plan: Continue current meds 12/02/2011 Appointment: Tish Noe WPtel: [phone] CHECK UP 12/02/2011 Patient Education: Patient Medication Summary Completed 12/02/2011 Visit Plan: No evidence of parkinson's t remor on exam--discussed parkinson's symptoms with coal pulverizing operator 10/01/2011 Appointment: Tish Noe WPtel: [address] [place], [place] [phone] FOLLOW UP 10/01/2011 Patient Education: Patient Medication Summary Completed 10/01/2011 Visit Plan: Proceed with hearing evaluat ion Proceed with repeat CT of head DC Amitiza 07/22/2011 Appointment: Tish Noe WPtel: [address] [place], [place] [phone] ACUTE ILLNESS 07/22/2011 Patient Education: Patient Medication Summary Completed 07/22/2011 Visit Plan: will continue Loratidine. an d will use Azithromycin. Will notify if no improvement. Benadryl at bedtime PRN. 05/23/2011 Appointment: Kiley Wilson WPtel: [address] [place], [place] [phone] ACUTE ILLNESS 05/23/2011 Patient Education: Patient Medication Summary Completed 05/23/2011 Visit Plan: Continue claritin Add Z-pack 11/22/2010 Appointment: Tish Noe WPtel: [address] [place], [place] [phone] FOLLOW UP 11/22/2010 Patient Education: Patient Medication Summary Completed 11/22/2010 Appointment: Tish Noe WPtel: [address] [place], [place] [phone] [facility] 08/03/2010 Patient Education: Patient Medication Summary Completed 08/03/2010 Appointment: Tish Noe WPtel: [address] [place], [place] [phone] [facility] 07/23/2010 Patient Education: Patient Medication Summary Completed 07/23/2010 Visit Plan: Cont current meds Repeat lab in 6mos 05/24/2010 Appointment: Tish Noe WPtel: [address] [place], [place] [phone] FOLLOW UP 05/24/2010 Patient Education: Patient Medication Summary Completed 05/24/2010 Appointment: Tish Noe WPtel: [address] [place], [place] [phone] [facility] 01/01/2010 Patient Education: Patient Medication Summary Completed 01/01/2010 Appointment: Tish Noe WPtel: [address] [place], [place] [phone] FOLLOW UP 11/23/2009 Patient Education: Patient Medication Summary Completed 11/23/2009 Visit Plan: Check CMP, CBC, TSH, Free T4 , Depakote level, Vit D, B12, Lipids Start Abilify 5mg QD See Psych 10/24/2009 Appointment: Tish Noe WPtel: [address] [place], [place] [phone] ESTABLISHED PATIENT 10/24/2009 Patient Education: Patient Medication Summary Completed 10/24/2009 Visit Plan: Caregiver present states the pt. has not complained of pain or other symptoms. Swelling is present on left upper cheek. Caregiver states the pt. has eaten normally over the last few days. Pt. reports pain with eating. Instructed care specialist to seek re-eval if symptoms persist or fever appears. OTC Tylenol or Motrin for discomfort recommended. 06/23/2009 Appointment: Kiley Wilson WPtel: [address] [place], [place] [phone] ACUTE ILLNESS 06/23/2009 Patient Education: Patient Medication Summary Completed 06/23/2009 Referral: Yajaira Corea WPtel: [facility] [place] [address] [place] Referral Initiated Referral: Gilbert Covarrubias WPtel: [address] [place] [address] [place] Referral Initiated Referral: Earl Jordan WPtel: [phone] [place] [address] [place] Referral Initiated Instructions Comment Date . [...] tremor on e xam--discussed parkinson's symptoms with coal pulverizing operator 10/01/2011 . Proceed with hearing evaluation Proceed [...] Pt. reports pain with eating. Instructed care specialist to seek re-eval if symptoms persist or [...]
--- OUTSIDE RECORDS SUMMARY | 2022-07-03 13:17 | XMS REPORT | CCD ---
Author Author Steve Noe D.O. Organization [facility] Address [address] [place] [address] Phone Care Team Providers Care Program Evaluation Consultant Name Role Phone [facility] PP Unavailable CCM Unavailable Summary Purpose Interface Exchange Insurance Providers Payer name Policy type / Coverage type Covered libertarian ID Effective Begin Date Effective End Date WPS MEDICARE PART B [place] Medicare Part B [id number] 2018 Unknown AETNA [facility] Medicare Part B [id number] Unknown Family history Father Diagnosis Age At Onset *Denies any medical problems Unknown Mother Diagnosis Age At Onset *Denies any medical problems Unknown Social History Social History Element Codes Description Effective Dates Tobacco history SNOMED CT: 646454061 Never smoker 11/17/2014 Marital status Unknown Single [...] Start Date Stop Date Status Fill Instructions tetracycline 500 mg capsule RxNorm: 772952 Take 1 Capsu le(s) Oral four times a day 2022 05/30/2022 Active tetracycline 500 mg capsule RxNorm: 633346 1 Capsule(s) Oral fo ur times a day 2022 2022 Inactive Macrobid 100 mg capsule RxNorm: 868364 Take 1 Capsule(s) Oral t wo times a day 05/20/2022 05/20/2022 Inactive Macrobid 100 mg capsule RxNorm: 062799 1 Capsule(s) Oral two ti mes a day 05/20/2022 05/20/2022 Inactive pregabalin 50 mg capsule RxNorm: 563165 Take 1 Capsule(s) Oral QAM 05/15/2022 05/15/2022 Inactive Stimulant Laxative Plus 8.6 mg-50 mg tablet RxNorm: 813359 TAKE 2 TABLETS BY MOUTH TWICE DAILY 05/13/2022 08/13/2022 Active PLEASE NEW RX+ REFILLS FOR 31 DAYS THANKS Cipro 250 mg tablet RxNorm: 973707 Take 1 Tablet(s) Oral two ti mes a day 04/29/2022 05/08/2022 Inactive Cipro 250 mg tablet RxNorm: 109683 1 Tablet(s) Oral two times a day 04/29/2022 04/29/2022 Inactive Keppra 100 mg/mL oral solution RxNorm: 955188 Take 15 M illiliter(s) Oral two times a day 04/22/2022 08/19/2022 Active omeprazole 40 mg capsule,delayed release RxNorm: 500032 Take 1 Capsule(s) Oral QD 04/15/2022 10/11/2022 Active RX QTT LEFT NOT ENOUGH FOR 93 DAYS PLEASE NEW RX+REFILLS THANKS ketoconazole 2 % shampoo RxNorm: 125712 APPLY TO FACE TWICE PER WEE K 04/10/2022 05/09/2022 Inactive ciclopirox 8 % topical solution RxNorm: 094532 APPLY TO AFFECTED TOENAILS EVERY NIGHT AT BEDTIME OR 8 HOURS BEFORE WASHING 03/26/2022 04/24/2022 Inact dalia aripiprazole 10 mg tablet RxNorm: 269237 Take 1 Tablet(s) Oral HS 0 03/25/2022 05/25/2022 Active RX NEED A NEW RX+REF ILLS FOR 93 DAYS THANKS mirtazapine 15 mg tablet RxNorm: 363386 Take 1 Tablet(s) Oral HS 05/25/2022 Active RX NEED A NEW RX+REF ILLS FOR 93 DAYS THANKS polyethylene glycol 3350 17 gram/dose oral powder RxNorm: 87 6193 DRINK 17 GRAMS MIXED INTO 8 OZS. OF JUICE OR WATER TWICE DAILY 03/25/2022 06/22/2022 Active citalopram 40 mg tablet RxNorm: 691930 Take 1 Tablet(s) Oral QD 05/25/2022 Active RX NEED A NEW RX+REF ILLS FOR 93 DAYS THANKS Keppra 100 mg/mL oral solution RxNorm: 236040 Take 10 M illiliter(s) Oral two times a day 03/25/2022 03/25/2022 Inactive Keppra 100 mg/mL oral solution RxNorm: 017400 Take 10 M illiliter(s) Oral two times a day 03/25/2022 04/21/2022 Inactive lamotrigine 100 mg tablet RxNorm: 978807 Take 1 Tablet(s) Oral two times a day 03/18/2022 04/21/2022 Inactive PLEASE NEW RX+REFIIL S FOR 93 DAYS THANKS PrePlus 27 mg iron-1 mg tablet RxNorm: Take 1 Tablet(s) Oral Q D 03/13/2022 03/19/2023 Active PLEASE NEW RX+REFIILS FOR 93 DAYS THANKS loratadine 10 mg tablet RxNorm: 204190 Take 1 Tablet(s) Oral QD 12/ 05/20/2022 Inactive Lamictal 100 mg tablet RxNorm: 865515 Take 1 Tablet(s) Oral two times a day 02/20/2022 02/20/2022 Inactive Keppra 1,000 mg tablet RxNorm: 964015 Take 1 Tablet(s) Oral two times a day 02/18/2022 04/21/2022 Inactive loratadine 10 mg tablet RxNorm: 480390 TAKE 1 TABLET BY MOUTH 2 TIMES DAILY Take 1 Tablet(s) Oral two times a day 02/18/2022 02/19/2022 Inactive PLEASE NEW RX+REFILLS FOR 31 DAYS THANKS cephalexin 500 mg capsule RxNorm: 404509 Take 1 Capsule (s) Oral three times a day 02/18/2022 02/24/2022 Inactive fluticasone propionate 50 mcg/actuation nasal spray,suspensi on RxNorm: 3671729 SPRAY 1 SPRAY INTO EACH NOSTRIL TWICE DAILY 02/12/2022 08/10/2022 Acti ve omeprazole 40 mg capsule,delayed release RxNorm: 043168 Take 1 Capsule(s) Oral QD 02/12/2022 02/12/2022 Inactive Patient reques ts 90 days supply Stimulant Laxative Plus 8.6 mg-50 mg tablet RxNorm: 526181 TAKE 2 TABLETS BY MOUTH TWICE DAILY 02/12/2022 04/21/2022 Inactive PLEASE NEW RX+ REFILLS FOR 31 DAYS THANKS Lamictal 100 mg tablet RxNorm: 807138 Take 1 Tablet(s) Oral two times a day 02/11/2022 02/11/2022 Inactive Lamictal 100 mg tablet RxNorm: 260825 1 Tablet(s) Oral two time s a day 02/11/2022 02/11/2022 Inactive omeprazole 40 mg capsule,delayed release RxNorm: 174250 Take 1 Capsule(s) Oral QD 02/07/2022 02/07/2022 Inactive Patient reques ts 90 days supply Culturelle 10 billion cell capsule RxNorm: 619283 Take 1 Capsul e(s) Oral QD 02/05/2022 04/05/2022 Inactive Keppra 500 mg tablet RxNorm: 820670 Take 1 Tablet(s) Oral QD 12/05/ 2022 02/17/2022 Inactive Benadryl Allergy 25 mg tablet RxNorm: 9956540 Take 1 Tab let(s) Oral Every 6 hours as needed for hives 01/17/2022 No Stop Date Active pregabalin 50 mg capsule RxNorm: 275726 Take 1 Capsule(s) Oral QAM 01/01/2022 02/04/2022 Inactive pregabalin 25 mg capsule RxNorm: 583290 Take 1 Capsule(s) Oral QAM 01/01/2022 01/01/2022 Inactive Lamictal 100 mg tablet RxNorm: 796469 Take 1 Tablet(s) Oral QD 03/202102/04/2022 Inactive levetiracetam 250 mg tablet RxNorm: 264498 Take 1 Table t(s) Oral two times a day 01/01/2022 01/01/2022 Inactive Keppra 1,000 mg tablet RxNorm: 327217 Take 1 Tablet(s) Oral two times a day replaces 500mg dose 01/01/2022 02/17/2022 Inactive Depakote 500 mg tablet,delayed release RxNorm: 5591886 T willi 1 Tablet(s) Oral two times a day 01/01/2022 01/01/2022 Inactive Augmentin 500 mg-125 mg tablet RxNorm: 234054 1 Tablet(s) Oral two times a day 12/25/2021 12/25/2021 Inactive Augmentin 500 mg-125 mg tablet RxNorm: 788022 Take 1 Ta blet(s) Oral two times a day 12/25/2021 12/29/2021 Inactive Depakote 250 mg tablet,delayed release RxNorm: 6067352 T willi 1 Tablet(s) Oral two times a day for seizure 12/17/2021 12/31/2021 Inactive pregabalin 50 mg capsule RxNorm: 707380 TAKE 1 CAPSULE BY MOUTH EACH MORNING 12/12/2021 12/31/2021 Inactive PLEASE NEW RX+REFILL S FOR 31 DAYS. THANKS pregabalin 25 mg capsule RxNorm: 754254 Take 1 Capsule(s) Oral two times a day 12/12/2021 12/31/2021 Inactive loratadine 10 mg tablet RxNorm: 117315 TAKE 1 TABLET BY MOUTH DAILY 12/08/2021 12/08/2021 Inactive PLEASE NEW RX+REFILLS FOR 31 DAYS THANKS fluticasone propionate 50 mcg/actuation nasal spray,suspensi on RxNorm: 0361622 SPRAY 1 SPRAY INTO EACH NOSTRIL TWICE DAILY 12/04/2021 12/04/2021 Inac tive levetiracetam 1,000 mg tablet RxNorm: 850085 Take 1 Tablet(s) O ral QPM 12/04/2021 12/11/2021 Inactive levetiracetam 750 mg tablet RxNorm: 405344 Take 1 Tablet(s) Oral QA M 12/04/2021 12/11/2021 Inactive levetiracetam 750 mg tablet RxNorm: 363863 Take 1 Tablet(s) Oral QA M 11/26/2021 11/26/2021 Inactive levetiracetam 1,000 mg tablet RxNorm: 090771 Take 1 Tablet(s) O ral QPM 11/26/2021 11/26/2021 Inactive levetiracetam 750 mg tablet RxNorm: 807222 Take 1 Tablet(s) Oral QA M 11/26/2021 12/31/2021 Inactive levetiracetam 1,000 mg tablet RxNorm: 002374 Take 1 Tablet(s) O ral QPM 11/26/2021 12/31/2021 Inactive levetiracetam 750 mg tablet RxNorm: 623646 Take 1 Tablet(s) Oral QA M 11/19/2021 11/26/2021 Inactive melatonin 5 mg tablet RxNorm: 159090 TAKE 1 TABLET BY M OUTH DAILY IN THE EVENING NEEDED FOR SLEEP 11/06/2021 11/06/2021 Inactive melatonin 5 mg tablet RxNorm: 589843 Take 1 Tablet(s) O ral every night at bedtime 11/06/2021 12/31/2021 Inactive Senna Plus 8.6 mg-50 mg tablet RxNorm: 875127 Take 1 Ta blet(s) Oral two times a day 10/16/2021 11/14/2021 Inactive nystatin 100,000 unit/gram topical cream RxNorm: 577529 Apply Application Topical two times a day to lateral foot rash for 2 weeks and as needed for scaling rash 10/16/2021 No Stop Date Active metronidazole 0.75 % lotion RxNorm: 548885 Take Application Top ical QPM to face 10/16/2021 No Stop Date Active pregabalin 25 mg capsule RxNorm: 302512 Take 1 Capsule(s) Oral two times a day 10/16/2021 12/12/2021 Inactive levetiracetam 1,000 mg tablet RxNorm: 109456 Take 1 Tablet(s) O ral QPM 10/16/2021 10/16/2021 Inactive RX QTY LEFT NOT ENOU GH FOR 31 DAYS PLEASE NEW RX+REFILLS THANKS Keppra 500 mg tablet RxNorm: 208624 Take 1 Tablet(s) Or al QAM replaces 1000mg AM dose 10/16/2021 11/26/2021 Inactive polyethylene glycol 3350 17 gram/dose oral powder RxNorm: 87 6193 DRINK 17 GRAMS MIXED INTO 8 OZS. OF JUICE OR WATER TWICE DAILY 10/12/2021 10/12/2021 Inactive ketoconazole 2 % shampoo RxNorm: 035953 APPLY TO FACE TWICE PER WEE K 09/19/2021 09/19/2021 Inactive PrePlus 27 mg iron-1 mg tablet RxNorm: Take 1 Tablet(s) Oral Q D 09/12/2021 11/10/2021 Inactive RX QTY LEFT NOT ENOUGH FOR 9 3 DAYS PLEASE NEW RX+REFILLS THANKS Culturelle 10 billion cell capsule RxNorm: 182733 Take 1 Capsul e(s) Oral QD 09/10/2021 09/10/2021 Inactive Stimulant Laxative Plus 8.6 mg-50 mg tablet RxNorm: 440617 TAKE 2 TABLETS BY MOUTH TWICE DAILY 08/14/2021 10/15/2021 Inactive PLEASE NEW RX+ REFILLS FOR 31 DAYS THANKS pregabalin 50 mg capsule RxNorm: 193875 TAKE 1 CAPSULE BY MOUTH EACH MORNING 07/15/2021 10/15/2021 Inactive PLEASE NEW RX+REFILL S FOR 31 DAYS. THANKS pregabalin 25 mg capsule RxNorm: 706389 Take 1 Capsule(s) Oral HS 0 07/15/2021 10/15/2021 Inactive PLEASE NEW RX+REFILLS FOR 31 DAYS. THANKS levetiracetam 1,000 mg tablet RxNorm: 532734 Take 1 Tab let(s) Oral two times a day 06/11/2021 10/15/2021 Inactive RX QTY LEFT NOT ENOUGH FOR 31 DAYS PLEASE NEW RX+REFILLS THANKS loratadine 10 mg tablet RxNorm: 596889 TAKE 1 TABLET BY MOUTH DAILY 06/11/2021 06/11/2021 Inactive PLEASE NEW RX+REFILLS FOR 31 DAYS. THANKS Keppra 1,000 mg tablet RxNorm: 983431 Take 1 Tablet(s) Oral two times a day 05/08/2021 05/08/2021 Inactive Keppra 1,000 mg tablet RxNorm: 981560 Take 1 Tablet(s) Oral two times a day 05/08/2021 05/07/2021 Inactive ciclopirox 8 % topical solution RxNorm: 195497 Take Top ical QD to the affected area(s)preferably at bedtime or 8 hours before washing--to toenails 05/08/2021 10/15/2021 Inactive melatonin 5 mg capsule RxNorm: 773686 Take 1 Capsule(s) Oral QPM as needed for sleep 04/25/2021 10/21/2021 Inactive polyethylene glycol 3350 17 gram/dose oral powder RxNorm: 87 6193 DRINK 17 GRAMS MIXED INTO 8 OZS. OF JUICE OR WATER TWICE DAILY 04/24/2021 04/24/2021 Inactive Culturelle 10 billion cell capsule RxNorm: 689003 Take 1 Capsul e(s) Oral QD 04/16/2021 04/16/2021 Inactive pregabalin 25 mg capsule RxNorm: 955103 Take 1 Capsule(s) Oral HS 0 04/13/2021 04/13/2021 Inactive PLEASE NEW RX+REFILLS FOR 31 DAYS. THANKS pregabalin 50 mg capsule RxNorm: 632610 TAKE 1 CAPSULE BY MOUTH EACH MORNING 04/13/2021 04/13/2021 Inactive PLEASE NEW RX+REFILL S FOR 31 DAYS. THANKS fluticasone propionate 50 mcg/actuation nasal spray,suspensi on RxNorm: 5024216 SPRAY 1 SPRAY INTO EACH NOSTRIL TWICE DAILY 03/13/2021 03/13/2021 Inac tive polyethylene glycol 3350 17 gram/dose oral powder RxNorm: 87 6193 DRINK 17 GRAMS MIXED INTO 8 OZS. OF JUICE OR WATER TWICE DAILY 03/05/2021 04/03/2021 Inactive Gavilax 17 gram/dose oral powder RxNorm: 609819 DRINK 1 7 GRAMS MIXED INTO 8 OZS. OF JUICE OR WATER TWICE DAILY 02/27/2021 02/27/2021 Inactive Stimulant Laxative Plus 8.6 mg-50 mg tablet RxNorm: 412186 TAKE 2 TABLETS BY MOUTH TWICE DAILY 02/16/2021 02/16/2021 Inactive Tucks (diana juanita) 50 % topical pads RxNorm: 721670 Ta ke Application Topical four times a day as needed 02/05/2021 No Stop Date Active citalopram 40 mg tablet RxNorm: 765373 Take 1 Tablet(s) Oral QD 08/202003/25/2022 Inactive Culturelle 10 billion cell capsule RxNorm: 532975 Take 1 Capsul e(s) Oral QD 02/05/2021 04/16/2021 Inactive melatonin 5 mg capsule RxNorm: 155326 Take 1 Capsule(s) Oral QPM as needed for sleep 02/05/2021 02/05/2021 Inactive Keppra 750 mg tablet RxNorm: 989431 Take 1 Tablet(s) Or al two times a day replaces 500mg dose 02/05/2021 05/07/2021 Inactive Keppra 500 mg tablet RxNorm: 144165 Take 1 Tablet(s) Oral two t imes a day 01/17/2021 02/04/2021 Inactive Keppra 500 mg tablet RxNorm: 121957 Take 1 Tablet(s) Oral two t imes a day 01/17/2021 01/17/2021 Inactive Culturelle 10 billion cell capsule RxNorm: 633245 Take 1 Capsule(s) Oral QD as needed 01/16/2021 02/04/2021 Inactive levofloxacin 250 mg tablet RxNorm: 344695 Take 1 Tablet(s) Oral QD 01/04/2021 01/13/2021 Inactive cranberry 450 mg tablet RxNorm: Take 1 Tablet(s) Oral tw o times a day 12/14/2020 No Stop Date Active Gold Rosario Medicated 0.8 %-5 % topical powder RxNorm: 204967 Top ical as needed 12/14/2020 No Stop Date Active hydrocortisone 1 % topical cream RxNorm: 002854 Topical as needed 1 No Stop Date Active Gavilax 17 gram/dose oral powder RxNorm: 343442 Give 17 Gram(s) Oral two times a day in 8 ounces of juice/water 12/14/2020 10/15/2021 Inactive Culturelle 10 billion cell capsule RxNorm: 877458 Take 1 Capsule(s) Oral QD as needed 12/14/2020 01/16/2021 Inactive mirtazapine 15 mg tablet RxNorm: 262049 Take 1 Tablet(s ) Oral every night at bedtime 12/14/2020 03/25/2022 Inactive aripiprazole 10 mg tablet RxNorm: 962595 Take 1 Tablet(s) Oral QD 1 03/25/2022 Inactive pregabalin 25 mg capsule RxNorm: 851330 Take 1 Capsule(s) Oral HS 1 12/13/2020 Inactive loratadine 10 mg tablet RxNorm: 100475 TAKE 1 TABLET BY MOUTH DAILY 12/13/2020 12/13/2020 Inactive pregabalin 50 mg capsule RxNorm: 357122 TAKE 1 CAPSULE BY MOUTH EACH MORNING 12/13/2020 12/13/2020 Inactive Gavilax 17 gram/dose oral powder RxNorm: 691420 DRINK 1 7 GRAMS MIXED INTO 8 OZS. OF JUICE OR WATER TWICE DAILY 12/05/2020 12/13/2020 Inactive fluticasone propionate 50 mcg/actuation nasal spray,suspensi on RxNorm: 8332053 USE 1 SPRAY IN EACH NOSTRIL TWICE DAILY 11/16/2020 11/16/2020 Inactive pregabalin 25 mg capsule RxNorm: 560844 Take 1 Capsule(s) Oral HS 0 11/12/2020 11/12/2020 Inactive pregabalin 50 mg capsule RxNorm: 991725 TAKE 1 CAPSULE BY MOUTH EACH MORNING 11/12/2020 11/12/2020 Inactive Gavilax 17 gram/dose oral powder RxNorm: 277289 DRINK 1 7 GRAMS MIXED INTO 8 OZS. OF JUICE OR WATER TWICE DAILY 10/16/2020 11/14/2020 Inactive PrePlus 27 mg iron-1 mg tablet RxNorm: Take 1 Tablet(s) Oral Q D 10/12/2020 11/11/2020 Inactive pregabalin 50 mg capsule RxNorm: 016349 TAKE 1 CAPSULE BY MOUTH EACH MORNING 10/12/2020 10/12/2020 Inactive Stimulant Laxative Plus 8.6 mg-50 mg tablet RxNorm: 479602 TAKE 2 TABLETS BY MOUTH TWICE DAILY 10/12/2020 10/12/2020 Inactive pregabalin 25 mg capsule RxNorm: 967548 Take 1 Capsule(s) Oral HS 0 10/12/2020 10/12/2020 Inactive loratadine 10 mg tablet RxNorm: 052639 TAKE 1 TABLET BY MOUTH DAILY 09/12/2020 09/12/2020 Inactive ketoconazole 2 % shampoo RxNorm: 513408 1 Application T opical twice weekly to face 07/20/2020 07/20/2020 Inactive OUT OF REFILLS Senna-S 8.6 mg-50 mg tablet RxNorm: 260080 TAKE 2 TABLETS BY MO UTH TWICE DAILY 07/17/2020 07/17/2020 Inactive PLEASE NEW RX+REFILL S FOR 31 DAYS. THANKS Miralax 17 gram oral powder packet RxNorm: 233995 TAKE 17 GRAMS MIXED INTO 8 OZS. OF JUICE OR WATER TWICE DAILY 06/27/2020 12/13/2020 Inactive OUT OF REFILLS Lyrica 25 mg capsule RxNorm: 440990 TAKE 1 CAPSULE BY M OUTH DAILY AT BEDTIME Capsule(s) Oral 06/14/2020 06/14/2020 Inactive Lyrica 50 mg capsule RxNorm: 596945 Capsule(s) Oral GM E 1 CAPSULE BY MOUTH EACH MORNING 06/14/2020 06/14/2020 Inactive fluticasone propionate 50 mcg/actuation nasal spray,suspensi on RxNorm: 7532759 1 [place] Nasal two times a day 06/06/2020 06/06/2020 Inactive OUT OF REFILLS Plus 27 mg-1 mg tablet RxNorm: 1 Tablet(s) PO Q D 1 Tablet(s) Oral QD 05/10/2020 10/15/2021 Inactive Senna-S 8.6 mg-50 mg tablet RxNorm: 987403 TAKE 2 TABLETS BY MO [facility] TWICE DAILY 04/10/2020 07/11/2020 Inactive PLEASE NEW RX+REFILL S FOR 31 DAYS. THANKS loratadine 10 mg tablet RxNorm: 879579 TAKE 1 TABLET BY MOUTH DAILY 04/10/2020 04/10/2020 Inactive PLEASE NEW RX+REFILLS FOR 31 DAYS. THANKS ketoconazole 2 % shampoo RxNorm: 652569 1 Application T opical twice weekly to face 03/22/2020 07/19/2020 Inactive OUT OF REFILLS Lyrica 50 mg capsule RxNorm: 298654 Capsule(s) Oral GM E 1 CAPSULE BY MOUTH EACH MORNING 02/10/2020 06/12/2020 Inactive Lyrica 25 mg capsule RxNorm: 682331 TAKE 1 CAPSULE BY [facility] DAILY AT BEDTIME Capsule(s) Oral 02/10/2020 06/08/2020 Inactive Senna-S 8.6 mg-50 mg tablet RxNorm: 895930 TAKE 2 TABLETS BY [facility] TWICE DAILY 01/13/2020 04/09/2020 Inactive PLEASE NEW RX+REFILL S FOR 31 DAYS. THANKS Miralax 17 gram oral powder packet RxNorm: 512750 TAKE 17 GRAMS MIXED INTO 8 OZS. OF JUICE OR WATER TWICE DAILY 01/10/2020 06/26/2020 Inactive OUT OF REFILLS Miralax 17 gram oral powder packet RxNorm: 553151 TAKE 17 GRAMS MIXED INTO 8 OZS. OF JUICE OR WATER TWICE DAILY 12/15/2019 01/09/2020 Inactive OUT OF REFILLS ketoconazole 2 % shampoo RxNorm: 733173 APPLY TO FACE TWICE PER WEE K 12/09/2019 03/21/2020 Inactive OUT OF REFILLS Plus 27 mg-1 mg tablet RxNorm: 1 Tablet(s) PO Q D 1 Tablet(s) Oral QD 11/17/2019 05/09/2020 Inactive loratadine 10 mg tablet RxNorm: 209810 TAKE 1 TABLET BY MOUTH DAILY 11/17/2019 04/09/2020 Inactive PLEASE NEW RX+REFILLS FOR 31 DAYS. THANKS Lyrica 50 mg capsule RxNorm: 864720 Capsule(s) Oral GM E 1 CAPSULE BY MOUTH EACH MORNING 10/18/2019 02/08/2020 Inactive Lyrica 25 mg capsule RxNorm: 033131 TAKE 1 CAPSULE BY M OUTH DAILY AT BEDTIME Capsule(s) Oral 10/18/2019 02/13/2020 Inactive Senna-S 8.6 mg-50 mg tablet RxNorm: 036239 TAKE 2 TABLETS BY MO UTH TWICE DAILY 10/18/2019 01/12/2020 Inactive PLEASE NEW RX+REFILL S FOR 31 DAYS. THANKS Bactrim DS 800 mg-160 mg tablet RxNorm: 988255 1 Tablet(s) Oral two times a day 10/04/2019 10/10/2019 Inactive Vitamin C 500 mg tablet RxNorm: 668559 1 Tablet(s) Oral QD 09/22/1912/31/2021 Inactive citalopram 10 mg tablet RxNorm: 144475 1 Tablet(s) Oral QD 09/22/1902/04/2021 Inactive omeprazole 40 mg capsule,delayed release RxNorm: 812295 1 Capsule(s) Oral QD for reflux 08/16/2019 09/21/2019 Inactive Clindagel 1 % topical gel, once daily RxNorm: 954069 Ap plication Topical QPM to face rash or prn for rosacea 07/21/2019 12/13/2020 Inactive loratadine 10 mg tablet RxNorm: 051397 TAKE 1 TABLET BY MOUTH DAILY 07/19/2019 11/15/2019 Inactive PLEASE NEW RX+REFILLS FOR 31 DAYS. THANKS Senna-S 8.6 mg-50 mg tablet RxNorm: 626168 TAKE 2 TABLETS BY [facility] TWICE A DAY 07/19/2019 10/17/2019 Inactive PLEASE NEW RX+REFILL S FOR 31 DAYS. THANKS fluticasone propionate 50 mcg/actuation nasal spray,suspensi on RxNorm: 1695753 USE 1 SPRAY IN EACH NOSTRIL TWICE DAILY 07/01/2019 06/05/2020 Inactive OUT OF REFILLS Lyrica 50 mg capsule RxNorm: 316018 Capsule(s) Oral GM E 1 CAPSULE BY MOUTH EACH MORNING 06/16/2019 10/16/2019 Inactive Lyrica 25 mg capsule RxNorm: 981200 TAKE 1 CAPSULE BY M OUTH DAILY AT BEDTIME Capsule(s) Oral 06/16/2019 10/12/2019 Inactive Plus 27 mg-1 mg tablet RxNorm: 1 Tablet(s) PO Q D 1 Tablet(s) Oral QD 2019 11/16/2019 Inactive triamcinolone acetonide 0.025 % topical cream RxNorm: 210386 4 1 Application Topical two times a day apply thin layer to cheeks 05/03/2019 0 Inactive Lyrica 50 mg capsule RxNorm: 984123 Capsule(s) TAKE 1 C APSULE BY MOUTH EACH MORNING 02/22/2019 06/25/2019 Inactive Lyrica 25 mg capsule RxNorm: 879204 TAKE 1 CAPSULE BY MOUTH DOMINICK LY AT BEDTIME 02/22/2019 06/21/2019 Inactive loratadine 10 mg tablet RxNorm: 769145 TAKE 1 TABLET BY MOUTH DAILY 01/21/2019 03/23/2019 Inactive PLEASE NEW RX+REFILLS FOR 31 DAYS. THANKS Senna-S 8.6 mg-50 mg tablet RxNorm: 879900 TAKE 2 TABLETS BY MO [place] TWICE A DAY 01/21/2019 07/18/2019 Inactive PLEASE NEW RX+REFILL S FOR 31 DAYS. THANKS Macrobid 100 mg capsule RxNorm: 344517 1 Capsule(s) Oral two ti mes a day 01/11/2019 01/10/2019 Inactive Macrobid 100 mg capsule RxNorm: 007582 1 Capsule(s) Oral two ti mes a day 01/11/2019 01/21/2019 Inactive Cipro 250 mg tablet RxNorm: 741847 1 Tablet(s) Oral two times a day 01/05/2019 01/12/2019 Inactive Senna-S 8.6 mg-50 mg tablet RxNorm: 233203 TAKE 2 TABLETS BY [facility] TWICE A DAY 12/21/2018 01/20/2019 Inactive NEED A NEW RX+REFILL S PLEASE FOR 31 DAYS. THANKS Plus 27 mg-1 mg tablet RxNorm: 1 Tablet(s) PO QD 11/0205/20/2019 Inactive doxycycline hyclate 100 mg capsule RxNorm: 6819664 1 Cap edison(s) Oral two times a day 11/23/2018 11/30/2018 Inactive doxycycline hyclate 100 mg capsule RxNorm: 5751391 1 Cap edison(s) Oral two times a day 11/23/2018 11/22/2018 Inactive loratadine 10 mg tablet RxNorm: 983469 1 Tablet(s) PO QD 11/23/2018 1 03/22/2018 Inactive doxycycline hyclate 100 mg capsule RxNorm: 8500258 1 Cap edsion(s) Oral two times a day 11/23/2018 11/22/2018 Inactive Macrobid 100 mg capsule RxNorm: 514824 1 Capsule(s) PO BID 11/05/1911/10/2018 Inactive Macrobid 100 mg capsule RxNorm: 225798 1 Capsule(s) PO BID 11/05/1911/03/2018 Inactive Bactrim DS 800 mg-160 mg tablet RxNorm: 829296 1 Tablet(s) PO BID 0 10/29/2018 10/28/2018 Inactive Bactrim DS 800 mg-160 mg tablet RxNorm: 718110 1 Tablet(s) PO BID 0 10/29/2018 11/03/2018 Inactive Miralax 17 gram oral powder packet RxNorm: 680758 TAKE 17 GRAMS MIXED INTO 8 OZS. OF JUICE OR WATER TWICE DAILY 10/15/2018 01/15/2019 Inactive OUT OF REFILLS fluconazole 100 mg tablet RxNorm: 502751 1 Tablet(s) PO QD 10/13/19 19 10/18/2018 Inactive clotrimazole-betamethasone 1 %-0.05 % topical cream RxNorm: 390028 Application TOP BID to foot rash for 1-2 weeks 10/12/2018 09/21/2019 Inactive fluticasone propionate 50 mcg/actuation nasal spray,suspensi on RxNorm: 5430662 USE 1 SPRAY IN EACH NOSTRIL TWICE DAILY 09/01/2018 12/29/2018 Inactive Senna-S 8.6 mg-50 mg tablet RxNorm: 608683 TAKE 2 TABLETS BY [facility] TWICE A DAY 08/19/2018 12/20/2018 Inactive nystatin 100,000 unit/gram topical cream RxNorm: 637426 1 Gram( s) TOP BID 08/10/2018 08/09/2018 Inactive acyclovir 800 mg tablet RxNorm: 069711 1 Tablet(s) PO 5x day 201808/09/2018 Inactive nystatin 100,000 unit/gram topical cream RxNorm: 105119 1 Gram( s) TOP BID 08/10/2018 08/19/2018 Inactive acyclovir 800 mg tablet RxNorm: 419219 1 Tablet(s) PO 5x day 201808/16/2018 Inactive Miralax 17 gram oral powder packet RxNorm: 338689 TAKE 17 GRAMS MIXED INTO 8 OZS. OF JUICE OR WATER TWICE DAILY 07/31/2018 10/14/2018 Inactive Lyrica 25 mg capsule RxNorm: 763672 TAKE 1 CAPSULE BY MOUTH DOMINICK LY AT BEDTIME 07/16/2018 08/14/2018 Inactive nystatin 100,000 unit/gram topical powder RxNorm: 148273 1 Application TOP BID to upper thighs for 14 days 06/29/2018 07/12/2018 Inactive nystatin 100,000 unit/gram topical powder RxNorm: 629150 1 Application TOP BID to upper thighs for 14 days 06/29/2018 06/28/2018 Inactive Plus 27 mg-1 mg tablet RxNorm: 1 Tablet(s) PO QD 06/0111/22/2018 Inactive loratadine 10 mg tablet RxNorm: 164163 1 Tablet(s) PO QD 06/16/2018 0 11/22/2018 Inactive Miralax 17 gram oral powder packet RxNorm: 143503 TAKE 17 GRAMS MIXED INTO 8 OZS. OF JUICE OR WATER TWICE DAILY 05/19/2018 07/30/2018 Inactive ketoconazole 2 % shampoo RxNorm: 636719 APPLY TO FACE TWICE PER WEE K 05/04/2018 11/29/2018 Inactive Macrobid 100 mg capsule RxNorm: 342478 1 Capsule(s) PO BID 04/17/19 19 04/16/2018 Inactive Macrobid 100 mg capsule RxNorm: 605244 1 Capsule(s) PO BID 04/17/19 19 04/26/2018 Inactive Zithromax Z-Vu 250 mg tablet RxNorm: 414062 Tablet(s) PO As Di rected 02/26/2018 03/02/2018 Inactive Tessalon Perles 100 mg capsule RxNorm: 323191 1 Capsule (s) PO TID as needed for cough 02/26/2018 01/04/2019 Inactive Senna-S 8.6 mg-50 mg tablet RxNorm: 752556 2 Tablet(s) PO BID 02/1608/14/2018 Inactive Miralax 17 gram oral powder packet RxNorm: 221747 TAKE 17 GRAMS MIXED INTO 8 OZS. OF JUICE OR WATER TWICE DAILY 01/08/2018 04/10/2018 Inactive Miralax 17 gram oral powder packet RxNorm: 139297 1 Tab let(s) PO BID TAKE 17 GRAMS MIXED INTO 8 OZS. OF JUICE OR WATER TWICE DAILY 11/17/20172017 Inactive Miralax 17 gram oral powder packet RxNorm: 841646 1 Tab let(s) PO QD TAKE 17 GRAMS MIXED INTO 8 OZS. OF JUICE OR WATER once DAILY 11/04/2017 021 Inactive polymyxin B sulfate 10,000 unit-trimethoprim 1 mg/mL eye bandar ps RxNorm: 829235 2 Drop(s) ophthalmic (eye) Q4H while awake 10/29/2017 11/04/2017 Inactiv e Lyrica 25 mg capsule RxNorm: 056865 TAKE 1 CAPSULE BY MOUTH EAC H EVENING 10/20/2017 07/16/2018 Inactive Senna-S 8.6 mg-50 mg tablet RxNorm: 390433 2 Tablet(s) PO BID 10/2002/15/2018 Inactive Lyrica 50 mg capsule RxNorm: 030344 TAKE 1 CAPSULE BY MOUTH EAC H MORNING 10/20/2017 01/20/2018 Inactive loratadine 10 mg tablet RxNorm: 221578 Tablet(s) TAKE 1 TABLET BY MOUTH DAILY 10/20/2017 06/16/2018 Inactive Plus 27 mg-1 mg tablet RxNorm: Tablet(s) TAKE 1 TABLET BY MOUTH DAILY 10/20/2017 06/16/2018 Inactive nystatin 100,000 unit/gram topical cream RxNorm: 393233 Gram(s) TOP BID for 2 weeks 09/16/2017 09/21/2019 Inactive loratadine 10 mg tablet RxNorm: 060217 TAKE 1 TABLET BY MOUTH DAILY 08/18/2017 10/20/2017 Inactive Plus 27 mg-1 mg tablet RxNorm: TAKE 1 TABLET BY MOUTH DAILY 08/18/2017 10/20/2017 Inactive Miralax 17 gram oral powder packet RxNorm: 475888 1 Tab let(s) PO BID TAKE 17 GRAMS MIXED INTO 8 OZS. OF JUICE OR WATER TWICE DAILY 06/13/20172017 Inactive Miralax 17 gram oral powder packet RxNorm: 855867 1 Tab let(s) PO BID TAKE 17 GRAMS MIXED INTO 8 OZS. OF JUICE OR WATER TWICE DAILY 06/13/20172020 Inactive doxycycline hyclate 100 mg capsule RxNorm: 7275625 1 Capsule(s) PO BID 06/06/2017 06/05/2017 Inactive Cipro 250 mg tablet RxNorm: 033081 1 Tablet(s) PO BID 06/06/201706/01 Inactive Cipro 250 mg tablet RxNorm: 259190 1 Tablet(s) PO BID 06/06/201707/2017 Inactive doxycycline hyclate 100 mg capsule RxNorm: 0221774 1 Capsule(s) PO BID 06/06/2017 06/12/2017 Inactive Senna-S 8.6 mg-50 mg tablet RxNorm: 043610 2 Tablet(s) PO BID 05/1910/20/2017 Inactive Miralax 17 gram oral powder packet RxNorm: 741983 1 Tab let(s) PO BID TAKE 17 GRAMS MIXED INTO 8 OZS. OF JUICE OR WATER TWICE DAILY 01/06/20172017 Inactive Senna-S 8.6 mg-50 mg tablet RxNorm: 994951 2 Tablet(s) PO BID 12/1105/19/2017 Inactive Abilify 5 mg tablet RxNorm: 756888 1 Tablet(s) PO QHS 11/21/201612/01 Inactive docusate sodium 100 mg capsule RxNorm: 3766233 1 Capsule(s) PO BID 09/17/2016 09/21/2019 Inactive [AttnRPh: Saving apply/adjud icate RxGRP:SG20 RxBIN:[id number] RxPCN:HT ID#:[id number]] loratadine 10 mg tablet RxNorm: 816805 1 Tablet(s) PO QD 09/17/2016 0 08/17/2017 Inactive [AttnRPh: Saving apply/adjudicate RxGRP: SG20 RxBIN:[id number] RxPCN:HT ID#:[id number]] Plus 27 mg-1 mg tablet RxNorm: 1 Tablet(s) PO QD 08/3108/17/2017 Inactive [AttnRPh: Saving apply/adjud icate RxGRP:SG20 RxBIN:[id number] RxPCN: ID#:[id number]] Calcium + D 600 mg (1,500 mg)-200 unit tablet RxNorm: 135186 1 Tablet(s) PO QD 09/17/2016 09/21/2019 Inactive ketoconazole 2 % shampoo RxNorm: 221423 APPLY TO FACE TWICE PER WEE K 08/26/2016 02/21/2017 Inactive fluticasone propionate 50 mcg/actuation nasal spray,suspensi on RxNorm: 8698095 [place] USE 1 SPRAY IN EACH NOSTRIL TWICE A DAY 07/30/2016 01/25/2017 In active Miralax 17 gram oral powder packet RxNorm: 238774 TAKE 17 GRAMS MIXED INTO 8 OZS. OF JUICE OR WATER TWICE DAILY 07/30/2016 01/06/2017 Inactive Senna-S 8.6 mg-50 mg tablet RxNorm: 592822 2 Tablet(s) PO BID 07/1512/10/2016 Inactive Lyrica 50 mg capsule RxNorm: 210448 TAKE 1 CAPSULE BY MOUTH EAC H MORNING 07/11/2016 08/09/2016 Inactive Miralax 17 gram oral powder packet RxNorm: 522249 TAKE 17 GRAMS MIXED INTO 8 OZS. OF JUICE OR WATER TWICE DAILY 07/04/2016 07/29/2016 Inactive Miralax 17 gram oral powder packet RxNorm: 853790 TAKE 17 GRAMS MIXED INTO 8 OZS. OF JUICE OR WATER TWICE DAILY 07/04/2016 08/03/2016 Inactive Miralax 17 gram oral powder packet RxNorm: 735792 TAKE 17 GRAMS MIXED INTO 8 OZS. OF JUICE OR WATER TWICE DAILY 06/13/2016 07/03/2016 Inactive benztropine 2 mg tablet RxNorm: 779744 1 Tablet(s) PO BID 04/15/2016 09/21/2019 Inactive ketoconazole 2 % shampoo RxNorm: 996677 APPLY TO FACE TWICE PER WEE K 04/01/2016 08/25/2016 Inactive ketoconazole 2 % shampoo RxNorm: 905851 APPLY TO FACE TWICE PER WEE K 04/01/2016 12/13/2020 Inactive Miralax 17 gram oral powder packet RxNorm: 514452 TAKE 17 GRAMS MIXED INTO 8 OZS. OF JUICE OR WATER TWICE DAILY 03/29/2016 06/12/2016 Inactive calcium carbonate 600 mg calcium (1,500 mg)-vit D3 1,0 00 unit capsule RxNorm: 0065125 1 Capsule(s) PO QD 03/15/2016 09/17/2016 Inactive fluticasone 50 mcg/actuation nasal spray,suspension RxNorm: 9860782 [place] USE 1 SPRAY IN EACH NOSTRIL TWICE A DAY 03/04/2016 07/29/2016 Inactive Miralax 17 gram oral powder packet RxNorm: 887768 1 Uni t Dose PO BID in 6-8oz water daily 02/28/2016 03/28/2016 Inactive attnrph: saving apply/adjudicate rxgrp:sg20 rxbin:[id number] rxpcn: id#:[id number] Senna-S 8.6 mg-50 mg tablet RxNorm: 208485 TAKE TWO TABLETS ORA LLY TWICE A DAY 01/18/2016 07/15/2016 Inactive ketoconazole 2 % shampoo RxNorm: 974778 APPLY TO FACE TWICE PER WEE K 12/04/2015 03/31/2016 Inactive benztropine 2 mg tablet RxNorm: 591689 1 Tablet(s) PO BID 11/20/2015 04/14/2016 Inactive cefuroxime axetil 250 mg tablet RxNorm: 366833 1 Tablet(s) PO BID 0 11/13/2015 11/19/2015 Inactive cefuroxime axetil 250 mg tablet RxNorm: 490100 1 Tablet(s) PO BID 0 11/13/2015 11/12/2015 Inactive ketoconazole 2 % shampoo RxNorm: 213568 APPLY TO FACE TWICE PER WEE K 11/08/2015 12/03/2015 Inactive loratadine 10 mg tablet RxNorm: 107857 1 Tablet(s) PO QD 10/16/2015 0 09/16/2016 Inactive [AttnRPh: Saving apply/adjudicate RxGRP: SG20 RxBIN:[id number] RxPCN:HT ID#:[id number]] docusate sodium 100 mg capsule RxNorm: 1088960 1 Capsule(s) PO BID 10/16/2015 09/17/2016 Inactive [AttnRPh: Saving apply/adjud icate RxGRP:SG20 RxBIN:014565 RxPCN:HT ID#:[id number]] Plus 27 mg-1 mg tablet RxNorm: 1 Tablet(s) PO QD 10/0109/16/2016 Inactive [AttnRPh: Saving apply/adjud icate RxGRP:SG20 RxBIN:116954 RxPCN:HT ID#:[id number]] Miralax 17 gram oral powder packet RxNorm: 062160 1 Uni t Dose PO BID in 6-8oz water daily 09/29/2015 09/28/2015 Inactive attnrph: saving apply/adjudicate rxgrp:sg20 rxbin:198575 rxpcn:ht id#:[id number] fluticasone 50 mcg/actuation nasal spray,suspension RxNorm: 0769747 USE 1 SPRAY IN EACH NOSTRIL TWICE A DAY 09/12/2015 03/04/2016 Inactive benztropine 2 mg tablet RxNorm: 381794 1 Tablet(s) PO BID 09/11/2015 11/20/2015 Inactive benztropine 2 mg tablet RxNorm: 467791 1 Tablet(s) PO BID 07/25/2015 09/10/2015 Inactive ketoconazole 2 % shampoo RxNorm: 691176 APPLY TO FACE TWICE PER WEE K 07/24/2015 11/07/2015 Inactive Senna-S 8.6 mg-50 mg tablet RxNorm: 429214 TAKE TWO TABLETS ORA LLY TWICE A DAY 07/13/2015 01/14/2016 Inactive ketoconazole 2 % shampoo RxNorm: 123255 APPLY TO FACE TWICE PER WEE K 06/30/2015 07/23/2015 Inactive Miralax 17 gram oral powder packet RxNorm: 644023 1 Uni t Dose PO BID in 6-8oz water daily 06/19/2015 09/29/2015 Inactive attnrph: saving apply/adjudicate rxgrp:sg20 rxbin:[id number] rxpcn:ht id#:[id number] fluticasone 50 mcg/actuation nasal spray,suspension RxNorm: 393826 1 [place] NASAL BID 05/29/2015 09/11/2015 Inactive Opcon-A 0.93964 %-0.315 % eye drops RxNorm: 5118557 2 Drop(s) OP H PRN as needed 04/26/2015 04/25/2015 Inactive Culturelle 10 billion cell capsule RxNorm: 520200 1 Capsule(s) PO QD prn 04/26/2015 09/21/2019 Inactive calcium carbonate-vitamin D3 600 mg (1,500 mg)-1,000 u nit capsule RxNorm: 5518089 1 Capsule(s) PO QD 04/24/2015 07/06/2015 Inactive Senna-S 8.6 mg-50 mg tablet RxNorm: 536282 TAKE TWO TABLETS ORA LLY TWICE A DAY 04/24/2015 07/12/2015 Inactive ketoconazole 2 % shampoo RxNorm: 678439 1 Application TOP twice weekly to face 04/11/2015 06/29/2015 Inactive Senna-S 8.6 mg-50 mg tablet RxNorm: 601464 2 Tablet(s) PO QD TAKE 2 TABLETS ORALLY TWICE A DAY 01/20/2015 04/23/2015 Inactive out of refill s Miralax 17 gram oral powder packet RxNorm: 453127 1 Uni t Dose PO BID in 6-8oz water daily 11/21/2014 12/13/2020 Inactive attnrph: saving apply/adjudicate rxgrp:sg20 rxbin:[id number] rxpcn: id#:[id number] Flonase Allergy Relief 50 mcg/actuation nasal spray,suspensi on RxNorm: 2 [place] NASAL QHS 11/21/2014 07/22/2016 Inactive azithromycin 250 mg tablet RxNorm: 013818 2 Tablet(s) P O on day one, then one tablet on days 2 - 5 11/18/2014 12/20/2014 Inactive azithromycin 250 mg tablet RxNorm: 036437 2 Tablet(s) P O on day one, then one tablet on days 2 - 5 11/17/2014 11/17/2014 Inactive fluticasone 50 mcg/actuation nasal spray,suspension RxNorm: 555724 1 [place] NASAL BID 11/09/2014 11/08/2014 Inactive Plus 27 mg-1 mg tablet RxNorm: 1 Tablet(s) PO QD 10/0110/13/2015 Inactive [AttnRPh: Saving apply/adjud icate RxGRP:SG20 RxBIN:[id number] RxPCN:HT ID#:[id number]] Plus 27 mg-1 mg tablet RxNorm: 1 Tablet(s) PO QD 09/0110/18/2014 Inactive [AttnRPh: Saving apply/adjud icate RxGRP:SG20 RxBIN:634932 RxPCN:HT ID#:[id number]] nystatin-triamcinolone 100,000 unit/g-0.1 % topical cream RxNorm : 3495480 BID 09/26/2014 10/09/2014 Inactive docusate sodium 100 mg capsule RxNorm: 7802839 1 Capsule(s) PO BID 09/26/2014 10/15/2015 Inactive [AttnRPh: Saving apply/adjud icate RxGRP:SG20 RxBIN:[id number] RxPCN:HT ID#:[id number]] trihexyphenidyl 2 mg tablet RxNorm: 880826 1 Tablet(s) PO BID 09/2612/20/2014 Inactive Miralax 17 gram oral powder packet RxNorm: 491314 1 Uni t Dose PO BID in 6-8oz water daily 09/26/2014 11/20/2014 Inactive attnrph: saving apply/adjudicate rxgrp:sg20 rxbin:748004 rxpcn:ht id#:[id number] loratadine 10 mg tablet RxNorm: 626780 Tablet(s) 1 Tabl et(s) PO QD 1 Tablet(s) PO QD 09/26/2014 10/16/2015 Inactive [AttnRPh: Saving apply/adjudicate RxGRP:SG20 RxBIN:[id number] RxPCN:HT ID#:[id number]] ketoconazole 2 % shampoo RxNorm: 400299 1 BIW lather and rinse after 10 min 09/26/2014 04/10/2015 Inactive Calcium + D 600 mg (1,500 mg)-200 unit tablet RxNorm: 238208 1 Tablet(s) PO QD 09/26/2014 09/19/2015 Inactive Senna-S 8.6 mg-50 mg tablet RxNorm: 758427 2 Tablet(s) PO QD TAKE 2 TABLETS ORALLY TWICE A DAY 09/26/2014 01/19/2015 Inactive out of refill s Senna-S 8.6 mg-50 mg tablet RxNorm: 759620 2 Tablet(s) PO QD TAKE 2 TABLETS ORALLY TWICE A DAY 07/20/2014 09/25/2014 Inactive out of refill s [AttnRPh: Saving apply/adjudicate RxGRP:SG20 RxBIN:575018 RxPCN:HT ID#:[id number]] loratadine 10 mg tablet RxNorm: 515969 1 Tablet(s) PO QD 1 Tabl et(s) PO QD 04/25/2014 09/25/2014 Inactive [AttnRPh: Saving deyanira ly/adjudicate RxGRP:SG20 RxBIN:678295 RxPCN:HT ID#:[id number]] docusate sodium 100 mg capsule RxNorm: 0375342 1 Capsule(s) PO BID 04/04/2014 09/25/2014 Inactive [AttnRPh: Saving apply/adjud icate RxGRP:SG20 RxBIN:798093 RxPCN:HT ID#:[id number]] Senna-S 8.6 mg-50 mg tablet RxNorm: 941737 2 Tablet(s) PO QD TAKE 2 TABLETS ORALLY TWICE A DAY 03/15/2014 07/19/2014 Inactive OUT OF REFILL S [AttnRPh: Saving apply/adjudicate RxGRP:SG20 RxBIN:240970 RxPCN:HT ID#:[id number]] nystatin 100,000 unit/gram topical cream RxNorm: 941022 Applica tion TOP BID 03/15/2014 07/22/2016 Inactive [AttnRPh: Saving deyanira ly/adjudicate RxGRP:SG20 RxBIN:881544 RxPCN:HT ID#:[id number]] Miralax 17 gram oral powder packet RxNorm: 501611 1 Uni t Dose PO BID in 6-8oz water daily 03/15/2014 09/25/2014 Inactive AttnRPh: Saving apply/adjudicate RxGRP:SG20 RxBIN:534603 RxPCN:HT ID#:[id number] [AttnRPh: Saving apply/adjudicate RxGRP:SG20 RxBIN:343339 RxPCN: ID#:[id number]] Senna-S 8.6 mg-50 mg tablet RxNorm: 922990 2 Tablet(s) PO QD TAKE 2 TABLETS ORALLY TWICE A DAY 03/09/2014 03/14/2014 Inactive OUT OF REFILL S loratadine 10 mg tablet RxNorm: 005681 1 Tablet(s) PO QD 1 Tabl et(s) PO QD 10/28/2013 04/24/2014 Inactive [AttnRPh: Saving deyanira ly/adjudicate RxGRP:SG20 RxBIN:694397 RxPCN:HT ID#:[id number]] docusate sodium 100 mg capsule RxNorm: 4740484 1 Capsule(s) PO BID 10/21/2013 04/03/2014 Inactive [AttnRPh: Saving apply/adjud icate RxGRP:SG20 RxBIN:622327 RxPCN:HT ID#:[id number]] Plus 27 mg-1 mg tablet RxNorm: 1 Tablet(s) PO QD 06/201309/25/2014 Inactive [AttnRPh: Saving apply/adjud icate RxGRP:SG20 RxBIN:219106 RxPCN: ID#:[id number]] Calcium + D 600 mg (1,500)-200 unit tablet RxNorm: 995261 1 Tab let(s) PO QD 09/21/2013 09/25/2014 Inactive loratadine 10 mg tablet RxNorm: 344610 1 Tablet(s) PO QD 1 Tabl et(s) PO QD 07/06/2013 10/28/2013 Inactive docusate sodium 100 mg capsule RxNorm: 2351365 1 Capsule(s) PO BID 04/12/2013 10/21/2013 Inactive Senna-S 8.6 mg-50 mg tablet RxNorm: 519267 2 Tablet(s) PO BID 01/0503/09/2014 Inactive loratadine 10 mg tablet RxNorm: 452472 1 Tablet(s) PO QD 01/04/2013 0 07/06/2013 Inactive Senna-S 8.6 mg-50 mg tablet RxNorm: 938184 2 Tablet(s) PO BID 01/0401/04/2013 Inactive loratadine 10 mg tablet RxNorm: 0180054 1 Tablet(s) PO QD 10/05/2012 01/04/2013 Inactive Senna-S 8.6 mg-50 mg tablet RxNorm: 680976 2 Tablet(s) PO BID 10/0501/04/2013 Inactive Calcium + D 600 mg (1,500)-200 unit tablet RxNorm: 378010 1 Tab let(s) PO QD 09/11/2012 09/21/2013 Inactive docusate sodium 100 mg capsule RxNorm: 4995074 1 Capsule(s) PO BID 09/10/2012 03/08/2013 Inactive Plus 27 mg-1 mg tablet RxNorm: 1 Tablet(s) PO QD 08/3109/04/2013 Inactive Senna-S 8.6 mg-50 mg tablet RxNorm: 419961 2 Tablet(s) PO BID 09/1010/04/2012 Inactive loratadine 10 mg tablet RxNorm: 9971213 1 Tablet(s) PO QD 09/10/2012 09/09/2012 Active divalproex ER 500 mg tablet,extended release 24 hr RxNorm: 1 757334 1 Tablet(s) PO BID 09/10/2012 09/21/2019 Inactive Nasonex 50 mcg/actuation [place] RxNorm: 478420 1 [place] NASAL BID 07/22/2016 Inactive Depakote 500 mg tablet,delayed release RxNorm: 3362062 1 Tablet( s) PO BID 08/10/2012 12/20/2014 Inactive loratadine 10 mg tablet RxNorm: 6775475 1 Tablet(s) PO QD 06/29/2012 09/09/2012 Inactive docusate sodium 100 mg capsule RxNorm: 2250399 1 Capsule(s) PO BID 06/29/2012 09/09/2012 Inactive divalproex 250 mg tablet,delayed release RxNorm: 7983396 1 Table t(s) PO QPM 06/08/2012 09/21/2019 Inactive Depakote 500 mg tablet,delayed release RxNorm: 4165583 1 Tablet( s) PO BID 04/13/2012 07/11/2012 Inactive Senna-S 8.6 mg-50 mg tablet RxNorm: 002673 2 Tablet(s) PO BID 03/1604/14/2012 Inactive Plus 27 mg-1 mg tablet RxNorm: 1 Tablet(s) PO QD 01/3109/09/2012 Inactive divalproex ER 500 mg tablet,extended release 24 hr RxNorm: 1 451383 1 Tablet(s) PO BID 02/10/2012 04/09/2012 Inactive divalproex 250 mg tablet,delayed release RxNorm: 0240647 1 Table t(s) PO QPM 09/30/2011 04/26/2012 Inactive Nasonex 50 mcg/actuation [place] RxNorm: 1111994 1 [place] NASAL BID 03/13/2012 Inactive Depakote 500 mg tablet,delayed release RxNorm: 1262352 1 Tablet( s) PO BID 08/14/2011 02/09/2012 Inactive divalproex ER 500 mg tablet,extended release 24 hr RxNorm: 1 222641 1 Tablet(s) PO BID 06/17/2011 08/15/2011 Inactive Benadryl 25 mg Cap RxNorm: 6445337 1 Capsule(s) PO QHS as needed for sinus drainage. May cause drowsiness. 05/23/2011 11/29/2013 Inactive divalproex ER 500 mg 24 hr Tab RxNorm: 6694332 1 Tablet(s) PO BID 0 04/15/2011 06/13/2011 Inactive Nasonex 50 mcg/actuation [place] RxNorm: 0207024 1 [place] NASAL BID 09/15/2011 Inactive Amitiza 24 mcg Cap RxNorm: 522615 1 Capsule(s) PO BID 03/19/201105/01 Inactive Sennalax-S 8.6 mg-50 mg Tab RxNorm: 021500 2 Tablet(s) PO BID 03/1907/16/2011 Inactive Nasonex 50 mcg/Actuation [place] RxNorm: 3201418 1 [place] NASAL BID 03/24/2011 Inactive divalproex 250 mg Tab, Delayed Release RxNorm: 7931906 1 Tablet( s) PO QPM 02/27/2011 09/24/2011 Inactive Plus 27 mg-1 mg tablet RxNorm: 1 Tablet(s) PO QD 02/0105/20/2011 Inactive divalproex ER 500 mg 24 hr Tab RxNorm: 4737935 1 Tablet(s) PO BID 1 04/15/2010 04/12/2011 Inactive Amitiza 24 mcg Cap RxNorm: 042838 1 Capsule(s) PO BID 01/14/201103/03 Inactive Nasonex 50 mcg/Actuation [place] RxNorm: 3744401 1 [place] NASAL BID 03/16/2011 Inactive Depakote 500 mg Tab RxNorm: 9314907 1 Tablet(s) PO BID 09/18/2010 Inactive divalproex 250 mg Tab, Delayed Release RxNorm: 3748952 1 Tablet( s) PO QPM 07/31/2010 02/25/2011 Inactive Amitiza 24 mcg Cap RxNorm: 687327 1 Capsule(s) PO BID 06/19/201001/01 Inactive divalproex ER 500 mg 24 hr Tab RxNorm: 4510581 1 Tablet(s) PO BID 0 03/27/2010 09/22/2010 Inactive Amitiza 24 mcg Cap RxNorm: 754065 1 Capsule(s) PO BID 03/20/201006/01 Inactive Sennalax-S 8.6 mg-50 mg Tab RxNorm: 717859 2 Tablet(s) PO BID 03/2007/17/2010 Inactive divalproex 250 mg Tab, Delayed Release RxNorm: 8723881 1 Tablet( s) PO QPM 03/06/2010 07/30/2010 Inactive Amitiza 24 mcg Cap RxNorm: 000653 1 Capsule(s) PO BID 12/27/200903/03 Inactive Abilify 5 mg Tab RxNorm: 565728 1 Tablet(s) PO QD 12/13/2009 01/01/20 10 Inactive Abilify 5 mg Tab RxNorm: 119271 1 Tablet(s) PO QD 11/23/2009 12/13/19 10 Inactive Nasonex 50 mcg/Actuation [place] RxNorm: 2813093 1 [place] NASAL BID 11/06/2009 Active Divalproex 250 mg Tab, Delayed Release RxNorm: 8858975 1 Tablet( s) PO QHS 10/26/2009 12/31/2009 Inactive Divalproex 250 mg Tab, Delayed Release RxNorm: 1460881 1 Tablet( s) PO QHS 10/26/2009 10/25/2009 Inactive Fluoxetine 10 mg Tab RxNorm: 801907 1 Tablet(s) PO QD 10/26/200912/03 Inactive Abilify 5 mg Tab RxNorm: 274472 1 Tablet(s) PO QD 10/24/2009 11/23/19 Inactive Amitiza 24 mcg Cap RxNorm: 188605 1 Capsule(s) PO BID 09/28/200910/02 Inactive divalproex SR 500 mg 24 hr Tab RxNorm: 7824493 1 Tablet(s) PO BID 0 08/31/2009 10/29/2009 Inactive Divalproex SR 500 mg 24 hr Tab RxNorm: 0713202 1 Tablet(s) PO BID 0 08/23/2009 08/30/2009 Inactive Sennalax-S 8.6 mg-50 mg Tab RxNorm: 086139 2 Tablet(s) PO BID 08/1709/15/2009 Inactive Divalproex SR 500 mg 24 hr Tab RxNorm: 4927101 1 Tablet(s) PO BID 0 07/20/2009 08/18/2009 Inactive Clindamycin 300 mg Cap RxNorm: 542201 1 Capsule(s) PO BID 06/23/2009 06/29/2009 Inactive Tylenol Extra Strength 500 mg Tab RxNorm: 586567 Tablet(s) PO PRN Active Pepto-Bismol 262 mg chewable tablet RxNorm: 632226 Tablet(s) PO as needed 07/07/2015 Active Robitussin Cough-Congestion 100 mg/5 mL syrup RxNorm: 342407 Milliliter(s) PO as needed 07/07/2015 Active alprazolam 1 mg tablet RxNorm: 875249 1 Tablet(s) PO QD as needed 0 07/07/2015 12/13/2020 Inactive Opcon-A 0.02278 %-0.315 % Eye Drops RxNorm: 9878064 Drop(s) OPH PRN 04/26/2015 04/25/2015 Inactive Amitiza 24 mcg Cap RxNorm: 339032 1 Capsule(s) PO BID 09/28/200909/01 Inactive Depakote 250 mg Tab RxNorm: 6143982 1 Tablet(s) PO QPM 01/01/2010 Inactive fluticasone 50 mcg/actuation nasal spray,suspension RxNorm: 643628 1 [place] NASAL BID 11/09/2014 11/08/2014 Inactive Mucinex 600 mg tablet, extended release RxNorm: 507060 Tablet(s ) PO as needed 07/07/2015 12/13/2020 Inactive Depakote 500 mg Tab RxNorm: 8224420 1 Tablet(s) PO BID 09/18/2010 Inactive Ketoconazole 2 % Shampoo RxNorm: 353492 1 TOP PRN 09/26/2014 015 Inactive alfalfa 650 mg tablet RxNorm: 164252 1 Tablet(s) PO QID 09/22/2019 Inactive Culturelle 10 billion cell capsule RxNorm: 142534 Capsule(s) PO as needed 09/22/2019 09/21/2019 Inactive bethanechol chloride 50 mg tablet RxNorm: 857667 1 Tablet(s) PO AC & HS 09/22/2019 09/21/2019 Inactive loratadine 10 mg tablet RxNorm: 5198750 1 Tablet(s) PO QD 06/29/2012 06/28/2012 Inactive Senna Concentrate Oral RxNorm: Oral 03/20/2010 03/20/2010 Inact dalia desmopressin 0.2 mg tablet RxNorm: 707269 3 Tablet(s) PO QHS 201707/13/2017 Inactive Fluoxetine 10 mg Tab RxNorm: 967426 1 Tablet(s) PO QD 10/26/200910/02 Inactive azithromycin 250 mg Tab RxNorm: 741848 Tablet(s) PO gm e 2 tablets on day one and one tablet on days 2-5. 10/01/2011 09/30/2011 Inactive Lyrica 25 mg capsule RxNorm: 657934 1 Capsule(s) PO QPM 10/20/2017 Inactive docusate sodium 100 mg capsule RxNorm: 0534602 1 Capsule(s) PO BID 06/29/2012 06/28/2012 Inactive Senna-S 8.6 mg-50 mg tablet RxNorm: 240627 Tablet(s) PO 03/16/2012 Inactive Zithromax Z-Vu 250 mg Tab RxNorm: 672623 Tablet(s) PO 10/01/2011 Inactive as directed ketoconazole 2 % shampoo RxNorm: 580705 1 Application TOP twice weekly to face 04/11/2015 04/10/2015 Inactive Abilify 10 mg Tab RxNorm: 133900 1 Tablet(s) PO QD 11/21/2016 017 Inactive Lyrica 50 mg capsule RxNorm: 908777 1 Capsule(s) PO QAM 07/11/2016 Inactive divalproex 250 mg Tab, Delayed Release RxNorm: 5489865 1 Tablet( s) PO QPM 03/06/2010 03/05/2010 Inactive Flonase 50 mcg/Actuation Nasal [place] RxNorm: 1416737 1 [place] JOSE AL BID 11/22/2010 11/21/2010 Inactive Cerovite Advanced Formula Oral RxNorm: Oral 12/02/2011 12/01/19 Inactive trihexyphenidyl 2 mg tablet RxNorm: 285048 1 Tablet(s) PO BID 09/2609/25/2014 Inactive Culturelle 10 billion cell Cap RxNorm: 187113 1 Capsule(s) PO QD pr n 04/26/2015 04/25/2015 Inactive Flonase Allergy Relief 50 mcg/actuation nasal spray,suspensi on RxNorm: 2 [place] NASAL QHS 11/21/2014 11/20/2014 Inactive trihexyphenidyl 5 mg tablet RxNorm: 657467 1 Tablet(s) PO BID 09/2109/21/2019 Inactive Amitiza 24 mcg Cap RxNorm: 791949 1 Capsule(s) PO QAM 12/27/200912/02 Inactive Milk of Magnesia 400 mg/5 mL oral suspension RxNorm: 647993 30 Milliliter(s) PO QD as needed 06/30/2017 12/13/2020 Inactive Miralax 17 gram oral powder packet RxNorm: 377026 1 Uni t Dose PO QD in 6-8oz water daily 03/15/2014 03/14/2014 Inactive AttnRPh: Saving apply/adjudicate RxGRP:SG20 RxBIN:[id number] RxPCN: ID#:[id number] Calcium + D 600 mg (1,500)-200 unit tablet RxNorm: 830592 1 Tab let(s) PO QD 09/11/2012 09/10/2012 Inactive Flonase 50 mcg/actuation nasal spray,suspension RxNorm: 8963 23 2 [place] NASAL QHS 11/09/2014 11/09/2014 Inactive Benadryl 25 mg capsule RxNorm: 0587363 Capsule(s) PO as needed 08/201512/13/2020 Inactive Nasonex 50 mcg/Actuation [place] RxNorm: 5202725 1 NASAL PRN 010 11/06/2009 Inactive benztropine 2 mg tablet RxNorm: 015244 1 Tablet(s) PO BID 07/25/2015 07/24/2015 Inactive Lamisil AT 1 % topical cream RxNorm: 553646 1 Applicati on TOP BID for 2-4 weeks for athletes foot 07/07/2015 07/06/2015 Inactive Medication Administered No Medication Administered data Immunizations Vaccine Codes Dose Date Status Influenza (Adult) CVX: 141 11/23/2009 Results Observation Observation Code Item Item Code Result Date S ervice Location CANCEL [id number] CANCEL FOOTNOTE 07/25/2010 Unknown Procedures Procedure Codes Date URINALYSIS NONAUTO W/O SCOPE CPT-4: 92631 10/04/2019 [facility] URINE CULTURE/ COLONY COUNT CPT-4: 57027 10/04/19 20 PPPS, subseq visit CPT-4: G0439 09/22/2019 [facility] URINE CULTURE/ COLONY COUNT CPT-4: 33869 01/06/20 19 URINALYSIS NONAUTO W/O SCOPE CPT-4: 91623 01/05/2019 URINALYSIS NONAUTO W/O SCOPE CPT-4: 49621 10/29/2018 [facility] URINE CULTURE/ COLONY COUNT CPT-4: 90961 10/30/19 19 PPPS, subseq visit CPT-4: G0439 09/17/2018 PPPS, subseq visit CPT-4: G0439 08/25/2017 PPPS, subseq visit CPT-4: G0439 03/28/2015 PRESCRIP TRANSMIT VIA ERX SY CPT-4: G8553 11/17/2014 DESTRUCT PREMALG LESION (Cryosurgery) CPT-4: 35967 PRESCRIP TRANSMIT VIA ERX SY CPT-4: G8553 09/26/2014 PRESCRIP TRANSMIT VIA ERX SY CPT-4: G8553 03/15/2014 PPPS, subseq visit CPT-4: G0439 04/27/2013 PRESCRIP TRANSMIT VIA ERX SY CPT-4: G8553 05/23/2011 PRESCRIP TRANSMIT VIA ERX SY CPT-4: G8553 11/22/2010 R[facility] URINE CULTURE/ COLONY COUNT CPT-4: 39256 08/04/19 11 RML URINE CULTURE/ COLONY COUNT CPT-4: 39486 07/24/19 11 URINALYSIS NONAUTO W/O SCOPE CPT-4: 38723 07/23/2010 IMMUNIZATION ADMIN CPT-4: 68599 01/01/2010 TDAP VACCINE 7 YRS/> IM CPT-4: 33152 01/01/2010 FLU VACCINE 3 YRS & > IM UP 64 CPT-4: 77444 0 ADMIN INFLUENZA VIRUS VAC CPT-4: G0008 11/23/2009 PRESCRIP TRANSMIT VIA ERX SY CPT-4: G8553 11/23/2009 Vital Signs Date Vital 04/22/2022 Blood Pressure 1: 126/74 Code: 8480-6 Heart Rate 1: 75 bpm Respiratory Rate: 20 bpm SpO2: 96% Temperature: 36.3 (C) / 97.3 (F) We ight: 174 lbs Code: 73795-4 02/18/2022 Blood Pressure 1: 130/72 Code: 8480-6 Heart Rate 1: 72 bpm Height: 5'9" Code: 8302-2 SpO2: 95% Temperature: 36.3 (C) / 97.3 (F) 02/04/2022 Blood Pressure 1: 117/68 Code: 8480-6 Heart Rate 1: 51 bpm Height: Code: 8302-2 SpO2: 100% Temperature: 35.9 (C) / 96.7 (F) Weight: Code: 63325-2 01/17/2022 Blood Pressure 1: 113/71 Code: 8480-6 BMI: 25.7 Code: 88093-1 Heart Rate 1: 64 bpm Height: 5'9" Code: 8302-2 SpO2: 99% Temperature: 3 6.3 (C) / 97.3 (F) Weight: 174 lbs Code: 71181-9 01/01/2022 Blood Pressure 1: 132/74 Code: 8480-6 BMI: 25.7 Code: 29286-2 Heart Rate 1: 66 bpm Height: 5'9" Code: 8302-2 SpO2: 98% Temperature: 3 6.6 (C) / 97.8 (F) Weight: 174 lbs Code: 87250-5 12/17/2021 Blood Pressure 1: 110/68 Code: 8480-6 BMI: 25.7 Code: 25005-0 Heart Rate 1: 59 bpm Height: 5'9" Code: 8302-2 SpO2: 100% Temperature: 3 6.2 (C) / 97.1 (F) Weight: 174 lbs Code: 59248-2 11/19/2021 Blood Pressure 1: 114/68 Code: 8480-6 Heart Rate 1: 60 bpm Respiratory Rate: 16 bpm SpO2: 96% Temperature: 36.7 (C) / 98.1 (F) We ight: 206 lbs Code: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 01/14/13 - will call back and reschedule when [employer] goes into effect New Have called moved appt up FOLLOW UP 03/16/2012 Visit Plan: Continue current meds 12/02/2011 Appointment: Tish Noetel: [address] [place], [place] [phone] CHECK UP 12/02/2011 Patient Education: Patient Medication Summary Completed 12/02/2011 Visit Plan: No evidence of parkinson's t remor on exam--discussed parkinson's symptoms with 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 10/01/2011 Appointment: Tish Noetel: [address] [place], [place] [phone] FOLLOW UP 10/01/2011 Patient Education: Patient Medication Summary Completed 10/01/2011 Visit Plan: Proceed with hearing evaluat ion Proceed with repeat CT of head DC Amitiza 07/22/2011 Appointment: Tish Noetel: [phone] ACUTE ILLNESS 07/22/2011 Patient Education: Patient Medication Summary Completed 07/22/2011 Visit Plan: will continue Loratidine. an d will use Azithromycin. Will notify if no improvement. Benadryl at bedtime PRN. 05/23/2011 Appointment: Kiley Wilson WPtel: [address] [place], [place] [phone] ACUTE ILLNESS 05/23/2011 Patient Education: Patient Medication Summary Completed 05/23/2011 Visit Plan: Continue claritin Add Z-pack 11/22/2010 Appointment: Tish Noe WPtel: [address] [place], [place] [phone] FOLLOW UP 11/22/2010 Patient Education: Patient Medication Summary Completed 11/22/2010 Appointment: Tish Noe WPtel: [address] [place], [place] [phone] [facility] 08/03/2010 Patient Education: Patient Medication Summary Completed 08/03/2010 Appointment: Tish Noe WPtel: [address] [place], [place] [phone] [facility] 07/23/2010 Patient Education: Patient Medication Summary Completed 07/23/2010 Visit Plan: Cont current meds Repeat lab in 6mos 05/24/2010 Appointment: Tish Noe WPtel: [address] [place], [place] [phone] FOLLOW UP 05/24/2010 Patient Education: Patient Medication Summary Completed 05/24/2010 Appointment: Tish Noe WPtel: [address] [place], [place] [phone] [facility] 01/01/2010 Patient Education: Patient Medication Summary Completed 01/01/2010 Appointment: Tish Noe WPtel: [address] [place], [place] [phone] FOLLOW UP 11/23/2009 Patient Education: Patient Medication Summary Completed 11/23/2009 Visit Plan: Check CMP, CBC, TSH, Free T4 , Depakote level, Vit D, B12, Lipids Start Abilify 5mg QD See Psych 10/24/2009 Appointment: Tish Noe WPtel: [address] [place] [address] ESTABLISHED PATIENT 10/24/2009 Patient Education: Patient Medication Summary Completed 10/24/2009 Visit Plan: Caregiver present states the pt. has not complained of pain or other symptoms. Swelling is present on left upper cheek. Caregiver states the pt. has eaten normally over the last few days. Pt. reports pain with eating. Instructed associate director career services to seek re-eval if symptoms persist or fever appears. OTC Tylenol or Motrin for discomfort recommended. 06/23/2009 Appointment: Kiley Wilson WPtel: [address] [place] [address] ACUTE ILLNESS 06/23/2009 Patient Education: Patient Medication Summary Completed 06/23/2009 Referral: Yajaira Corea WPtel: [address] [place] [address] Referral Initiated Referral: Gilbert Covarrubias WPtel: [address] [place] [address] Referral Initiated Referral: Earl Jordan WPtel: [address] [facility] [address] Referral Initiated Instructions Comment Date . Supportive [...] tremor on e xam--discussed parkinson's symptoms with 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 10/01/2011 . Proceed with hearing evaluation Proceed with repeat CT of head DC Stanleyza 07/22/2011 . will continue Loratidine. and will [...] days. Pt. reports pain with eating. Instructed associate director career services to seek re-eval if symptoms persist or [...]
--- OUTSIDE RECORDS SUMMARY | 2022-07-03 13:17 | XMS REPORT | CCD ---
Author Author Steve Noe D.O. Organization [facility] Address [address] [place] [address] Phone Care Team Providers Care Health Screener Name Role Phone Tish Noe D.O., PP Unavailable CCM Unavailable Summary Purpose Interface Exchange Insurance Providers Payer name Policy type / Coverage type Covered libertarian ID Effective Begin Date Effective End Date WPS MEDICARE PART B [place] Medicare Part B [id number] 2018 Unknown [employer] [facility] Medicare Part B [id number] Unknown Family history Father Diagnosis Age At Onset *Denies any medical problems Unknown Mother Diagnosis Age At Onset *Denies any medical problems Unknown Social History Social History Element Codes Description Effective Dates Tobacco history SNOMED CT: 373857728 Never smoker 11/17/2014 Marital status Unknown Single [...] Start Date Stop Date Status Fill Instructions loratadine 10 mg tablet RxNorm: 103818 TAKE 1 TABLET BY MOUTH DAILY 06/12/2022 12/14/2022 Active PLEASE NEW RX+REFILLS FOR 31 DAYS THANKS Culturelle 10 billion cell capsule RxNorm: 590961 Take 1 Capsul e(s) Oral QD 06/06/2022 08/04/2022 Active tetracycline 500 mg capsule RxNorm: 607802 Take 1 Capsu le(s) Oral four times a day 2022 05/30/2022 Inactive tetracycline 500 mg capsule RxNorm: 614433 1 Capsule(s) Oral fo ur times a day 2022 2022 Inactive Macrobid 100 mg capsule RxNorm: 005961 Take 1 Capsule(s) Oral t wo times a day 05/20/2022 05/20/2022 Inactive Macrobid 100 mg capsule RxNorm: 319183 1 Capsule(s) Oral two ti mes a day 05/20/2022 05/20/2022 Inactive pregabalin 50 mg capsule RxNorm: 840376 Take 1 Capsule(s) Oral QAM 05/15/2022 05/15/2022 Inactive Stimulant Laxative Plus 8.6 mg-50 mg tablet RxNorm: 807378 TAKE 2 TABLETS BY MOUTH TWICE DAILY 05/13/2022 08/13/2022 Active PLEASE NEW RX+ REFILLS FOR 31 DAYS THANKS Cipro 250 mg tablet RxNorm: 671076 Take 1 Tablet(s) Oral two ti mes a day 04/29/2022 05/08/2022 Inactive Cipro 250 mg tablet RxNorm: 533871 1 Tablet(s) Oral two times a day 04/29/2022 04/29/2022 Inactive Keppra 100 mg/mL oral solution RxNorm: 245252 Take 15 M illiliter(s) Oral two times a day 04/22/2022 08/19/2022 Active omeprazole 40 mg capsule,delayed release RxNorm: 607855 Take 1 Capsule(s) Oral QD 04/15/2022 10/11/2022 Active RX QTT LEFT NOT ENOUGH FOR 93 DAYS PLEASE NEW RX+REFILLS THANKS ketoconazole 2 % shampoo RxNorm: 567270 APPLY TO FACE TWICE PER WEE K 04/10/2022 05/09/2022 Inactive ciclopirox 8 % topical solution RxNorm: 664645 APPLY TO AFFECTED TOENAILS EVERY NIGHT AT BEDTIME OR 8 HOURS BEFORE WASHING 03/26/2022 04/24/2022 Inact dalia aripiprazole 10 mg tablet RxNorm: 732907 Take 1 Tablet(s) Oral HS 0 03/25/2022 05/25/2022 Inactive RX NEED A NEW RX+REF ILLS FOR 93 DAYS THANKS mirtazapine 15 mg tablet RxNorm: 782562 Take 1 Tablet(s) Oral HS 05/25/2022 Inactive RX NEED A NEW RX+REF ILLS FOR 93 DAYS THANKS polyethylene glycol 3350 17 gram/dose oral powder RxNorm: 87 6193 DRINK 17 GRAMS MIXED INTO 8 OZS. OF JUICE OR WATER TWICE DAILY 03/25/2022 06/22/2022 Active citalopram 40 mg tablet RxNorm: 526943 Take 1 Tablet(s) Oral QD 05/25/2022 Inactive RX NEED A NEW RX+REF ILLS FOR 93 DAYS THANKS Keppra 100 mg/mL oral solution RxNorm: 835528 Take 10 M illiliter(s) Oral two times a day 03/25/2022 03/25/2022 Inactive Keppra 100 mg/mL oral solution RxNorm: 897715 Take 10 M illiliter(s) Oral two times a day 03/25/2022 04/21/2022 Inactive lamotrigine 100 mg tablet RxNorm: 011734 Take 1 Tablet(s) Oral two times a day 03/18/2022 04/21/2022 Inactive PLEASE NEW RX+REFIIL S FOR 93 DAYS THANKS PrePlus 27 mg iron-1 mg tablet RxNorm: Take 1 Tablet(s) Oral Q D 03/13/2022 03/19/2023 Active PLEASE NEW RX+REFIILS FOR 93 DAYS THANKS loratadine 10 mg tablet RxNorm: 195840 Take 1 Tablet(s) Oral QD 05/20/2022 Inactive Lamictal 100 mg tablet RxNorm: 971699 Take 1 Tablet(s) Oral two times a day 02/20/2022 02/20/2022 Inactive Keppra 1,000 mg tablet RxNorm: 771329 Take 1 Tablet(s) Oral two times a day 02/18/2022 04/21/2022 Inactive loratadine 10 mg tablet RxNorm: 153132 TAKE 1 TABLET BY MOUTH 2 TIMES DAILY Take 1 Tablet(s) Oral two times a day 02/18/2022 02/19/2022 Inactive PLEASE NEW RX+REFILLS FOR 31 DAYS THANKS cephalexin 500 mg capsule RxNorm: 089012 Take 1 Capsule (s) Oral three times a day 02/18/2022 02/24/2022 Inactive fluticasone propionate 50 mcg/actuation nasal spray,suspensi on RxNorm: 0495722 SPRAY 1 SPRAY INTO EACH NOSTRIL TWICE DAILY 02/12/2022 08/10/2022 Acti ve omeprazole 40 mg capsule,delayed release RxNorm: 157525 Take 1 Capsule(s) Oral QD 02/12/2022 02/12/2022 Inactive Patient reques ts 90 days supply Stimulant Laxative Plus 8.6 mg-50 mg tablet RxNorm: 773083 TAKE 2 TABLETS BY MOUTH TWICE DAILY 02/12/2022 04/21/2022 Inactive PLEASE NEW RX+ REFILLS FOR 31 DAYS THANKS Lamictal 100 mg tablet RxNorm: 933719 Take 1 Tablet(s) Oral two times a day 02/11/2022 02/11/2022 Inactive Lamictal 100 mg tablet RxNorm: 745425 1 Tablet(s) Oral two time s a day 02/11/2022 02/11/2022 Inactive omeprazole 40 mg capsule,delayed release RxNorm: 323802 Take 1 Capsule(s) Oral QD 02/07/2022 02/07/2022 Inactive Patient reques ts 90 days supply Culturelle 10 billion cell capsule RxNorm: 581779 Take 1 Capsul e(s) Oral QD 02/05/2022 02/05/2022 Inactive Keppra 500 mg tablet RxNorm: 231809 Take 1 Tablet(s) Oral QD 202102/17/2022 Inactive Benadryl Allergy 25 mg tablet RxNorm: 1912695 Take 1 Tab let(s) Oral Every 6 hours as needed for hives 01/17/2022 No Stop Date Active pregabalin 50 mg capsule RxNorm: 084672 Take 1 Capsule(s) Oral QAM 01/01/2022 02/04/2022 Inactive pregabalin 25 mg capsule RxNorm: 864006 Take 1 Capsule(s) Oral QAM 01/01/2022 01/01/2022 Inactive Lamictal 100 mg tablet RxNorm: 992557 Take 1 Tablet(s) Oral QD 03/202102/04/2022 Inactive levetiracetam 250 mg tablet RxNorm: 955967 Take 1 Table t(s) Oral two times a day 01/01/2022 01/01/2022 Inactive Keppra 1,000 mg tablet RxNorm: 331187 Take 1 Tablet(s) Oral two times a day replaces 500mg dose 01/01/2022 02/17/2022 Inactive Depakote 500 mg tablet,delayed release RxNorm: 6041280 T willi 1 Tablet(s) Oral two times a day 01/01/2022 01/01/2022 Inactive Augmentin 500 mg-125 mg tablet RxNorm: 689123 1 Tablet(s) Oral two times a day 12/25/2021 12/25/2021 Inactive Augmentin 500 mg-125 mg tablet RxNorm: 416654 Take 1 Ta blet(s) Oral two times a day 12/25/2021 12/29/2021 Inactive Depakote 250 mg tablet,delayed release RxNorm: 2270283 T willi 1 Tablet(s) Oral two times a day for seizure 12/17/2021 12/31/2021 Inactive pregabalin 50 mg capsule RxNorm: 161051 TAKE 1 CAPSULE BY MOUTH EACH MORNING 12/12/2021 12/31/2021 Inactive PLEASE NEW RX+REFILL S FOR 31 DAYS. THANKS pregabalin 25 mg capsule RxNorm: 978221 Take 1 Capsule(s) Oral two times a day 12/12/2021 12/31/2021 Inactive loratadine 10 mg tablet RxNorm: 450466 TAKE 1 TABLET BY MOUTH DAILY 12/08/2021 12/08/2021 Inactive PLEASE NEW RX+REFILLS FOR 31 DAYS THANKS fluticasone propionate 50 mcg/actuation nasal spray,suspensi on RxNorm: 6209900 SPRAY 1 SPRAY INTO EACH NOSTRIL TWICE DAILY 12/04/2021 12/04/2021 Inac tive levetiracetam 1,000 mg tablet RxNorm: 970622 Take 1 Tablet(s) O ral QPM 12/04/2021 12/11/2021 Inactive levetiracetam 750 mg tablet RxNorm: 912296 Take 1 Tablet(s) Oral QA M 12/04/2021 12/11/2021 Inactive levetiracetam 750 mg tablet RxNorm: 735072 Take 1 Tablet(s) Oral QA M 11/26/2021 11/26/2021 Inactive levetiracetam 1,000 mg tablet RxNorm: 277275 Take 1 Tablet(s) O ral QPM 11/26/2021 11/26/2021 Inactive levetiracetam 750 mg tablet RxNorm: 315734 Take 1 Tablet(s) Oral QA M 11/26/2021 12/31/2021 Inactive levetiracetam 1,000 mg tablet RxNorm: 787571 Take 1 Tablet(s) O ral QPM 11/26/2021 12/31/2021 Inactive levetiracetam 750 mg tablet RxNorm: 610955 Take 1 Tablet(s) Oral QA M 11/19/2021 11/26/2021 Inactive melatonin 5 mg tablet RxNorm: 716392 TAKE 1 TABLET BY M OUTH DAILY IN THE EVENING NEEDED FOR SLEEP 11/06/2021 11/06/2021 Inactive melatonin 5 mg tablet RxNorm: 221127 Take 1 Tablet(s) O ral every night at bedtime 11/06/2021 12/31/2021 Inactive Senna Plus 8.6 mg-50 mg tablet RxNorm: 308645 Take 1 Ta blet(s) Oral two times a day 10/16/2021 11/14/2021 Inactive nystatin 100,000 unit/gram topical cream RxNorm: 309446 Apply Application Topical two times a day to lateral foot rash for 2 weeks and as needed for scaling rash 10/16/2021 No Stop Date Active metronidazole 0.75 % lotion RxNorm: 965124 Take Application Top ical QPM to face 10/16/2021 No Stop Date Active pregabalin 25 mg capsule RxNorm: 067077 Take 1 Capsule(s) Oral two times a day 10/16/2021 12/12/2021 Inactive levetiracetam 1,000 mg tablet RxNorm: 995905 Take 1 Tablet(s) O ral QPM 10/16/2021 10/16/2021 Inactive RX QTY LEFT NOT ENOU GH FOR 31 DAYS PLEASE NEW RX+REFILLS THANKS Keppra 500 mg tablet RxNorm: 728853 Take 1 Tablet(s) Or al QAM replaces 1000mg AM dose 10/16/2021 11/26/2021 Inactive polyethylene glycol 3350 17 gram/dose oral powder RxNorm: 87 6193 DRINK 17 GRAMS MIXED INTO 8 OZS. OF JUICE OR WATER TWICE DAILY 10/12/2021 10/12/2021 Inactive ketoconazole 2 % shampoo RxNorm: 490274 APPLY TO FACE TWICE PER WEE K 09/19/2021 09/19/2021 Inactive PrePlus 27 mg iron-1 mg tablet RxNorm: Take 1 Tablet(s) Oral Q D 09/12/2021 11/10/2021 Inactive RX QTY LEFT NOT ENOUGH FOR 9 3 DAYS PLEASE NEW RX+REFILLS THANKS Culturelle 10 billion cell capsule RxNorm: 330175 Take 1 Capsul e(s) Oral QD 09/10/2021 09/10/2021 Inactive Stimulant Laxative Plus 8.6 mg-50 mg tablet RxNorm: 963068 TAKE 2 TABLETS BY MOUTH TWICE DAILY 08/14/2021 10/15/2021 Inactive PLEASE NEW RX+ REFILLS FOR 31 DAYS THANKS pregabalin 50 mg capsule RxNorm: 699147 TAKE 1 CAPSULE BY MOUTH EACH MORNING 07/15/2021 10/15/2021 Inactive PLEASE NEW RX+REFILL S FOR 31 DAYS. THANKS pregabalin 25 mg capsule RxNorm: 180471 Take 1 Capsule(s) Oral HS 0 07/15/2021 10/15/2021 Inactive PLEASE NEW RX+REFILLS FOR 31 DAYS. THANKS levetiracetam 1,000 mg tablet RxNorm: 506263 Take 1 Tab let(s) Oral two times a day 06/11/2021 10/15/2021 Inactive RX QTY LEFT NOT ENOUGH FOR 31 DAYS PLEASE NEW RX+REFILLS THANKS loratadine 10 mg tablet RxNorm: 006271 TAKE 1 TABLET BY MOUTH DAILY 06/11/2021 06/11/2021 Inactive PLEASE NEW RX+REFILLS FOR 31 DAYS. THANKS Keppra 1,000 mg tablet RxNorm: 247393 Take 1 Tablet(s) Oral two times a day 05/08/2021 05/08/2021 Inactive Keppra 1,000 mg tablet RxNorm: 252144 Take 1 Tablet(s) Oral two times a day 05/08/2021 05/07/2021 Inactive ciclopirox 8 % topical solution RxNorm: 312010 Take Top ical QD to the affected area(s)preferably at bedtime or 8 hours before washing--to toenails 05/08/2021 10/15/2021 Inactive melatonin 5 mg capsule RxNorm: 963006 Take 1 Capsule(s) Oral QPM as needed for sleep 04/25/2021 10/21/2021 Inactive polyethylene glycol 3350 17 gram/dose oral powder RxNorm: 87 6193 DRINK 17 GRAMS MIXED INTO 8 OZS. OF JUICE OR WATER TWICE DAILY 04/24/2021 04/24/2021 Inactive Culturelle 10 billion cell capsule RxNorm: 105815 Take 1 Capsul e(s) Oral QD 04/16/2021 04/16/2021 Inactive pregabalin 25 mg capsule RxNorm: 677365 Take 1 Capsule(s) Oral HS 0 04/13/2021 04/13/2021 Inactive PLEASE NEW RX+REFILLS FOR 31 DAYS. THANKS pregabalin 50 mg capsule RxNorm: 138817 TAKE 1 CAPSULE BY MOUTH EACH MORNING 04/13/2021 04/13/2021 Inactive PLEASE NEW RX+REFILL S FOR 31 DAYS. THANKS fluticasone propionate 50 mcg/actuation nasal spray,suspensi on RxNorm: 4788838 SPRAY 1 SPRAY INTO EACH NOSTRIL TWICE DAILY 03/13/2021 03/13/2021 Inac tive polyethylene glycol 3350 17 gram/dose oral powder RxNorm: 87 6193 DRINK 17 GRAMS MIXED INTO 8 OZS. OF JUICE OR WATER TWICE DAILY 03/05/2021 04/03/2021 Inactive Gavilax 17 gram/dose oral powder RxNorm: 153188 DRINK 1 7 GRAMS MIXED INTO 8 OZS. OF JUICE OR WATER TWICE DAILY 02/27/2021 02/27/2021 Inactive Stimulant Laxative Plus 8.6 mg-50 mg tablet RxNorm: 129294 TAKE 2 TABLETS BY MOUTH TWICE DAILY 02/16/2021 02/16/2021 Inactive Tucks (witch juanita) 50 % topical pads RxNorm: 681197 Ta ke Application Topical four times a day as needed 02/05/2021 No Stop Date Active citalopram 40 mg tablet RxNorm: 751245 Take 1 Tablet(s) Oral QD 08/202003/25/2022 Inactive Culturelle 10 billion cell capsule RxNorm: 044483 Take 1 Capsul e(s) Oral QD 02/05/2021 04/16/2021 Inactive melatonin 5 mg capsule RxNorm: 889501 Take 1 Capsule(s) Oral QPM as needed for sleep 02/05/2021 02/05/2021 Inactive Keppra 750 mg tablet RxNorm: 307735 Take 1 Tablet(s) Or al two times a day replaces 500mg dose 02/05/2021 05/07/2021 Inactive Keppra 500 mg tablet RxNorm: 500960 Take 1 Tablet(s) Oral two t imes a day 01/17/2021 02/04/2021 Inactive Keppra 500 mg tablet RxNorm: 950337 Take 1 Tablet(s) Oral two t imes a day 01/17/2021 01/17/2021 Inactive Culturelle 10 billion cell capsule RxNorm: 052938 Take 1 Capsule(s) Oral QD as needed 01/16/2021 02/04/2021 Inactive levofloxacin 250 mg tablet RxNorm: 309100 Take 1 Tablet(s) Oral QD 01/04/2021 01/13/2021 Inactive cranberry 450 mg tablet RxNorm: Take 1 Tablet(s) Oral tw o times a day 12/14/2020 No Stop Date Active Gold Rosario Medicated 0.8 %-5 % topical powder RxNorm: 343719 Top ical as needed 12/14/2020 No Stop Date Active hydrocortisone 1 % topical cream RxNorm: 463739 Topical as needed 1 No Stop Date Active Gavilax 17 gram/dose oral powder RxNorm: 755596 Give 17 Gram(s) Oral two times a day in 8 ounces of juice/water 12/14/2020 10/15/2021 Inactive Culturelle 10 billion cell capsule RxNorm: 899018 Take 1 Capsule(s) Oral QD as needed 12/14/2020 01/16/2021 Inactive mirtazapine 15 mg tablet RxNorm: 618916 Take 1 Tablet(s ) Oral every night at bedtime 12/14/2020 03/25/2022 Inactive aripiprazole 10 mg tablet RxNorm: 928099 Take 1 Tablet(s) Oral QD 1 03/25/2022 Inactive pregabalin 25 mg capsule RxNorm: 002568 Take 1 Capsule(s) Oral HS 1 12/13/2020 Inactive loratadine 10 mg tablet RxNorm: 843442 TAKE 1 TABLET BY MOUTH DAILY 12/13/2020 12/13/2020 Inactive pregabalin 50 mg capsule RxNorm: 235091 TAKE 1 CAPSULE BY MOUTH EACH MORNING 12/13/2020 12/13/2020 Inactive Gavilax 17 gram/dose oral powder RxNorm: 306440 DRINK 1 7 GRAMS MIXED INTO 8 OZS. OF JUICE OR WATER TWICE DAILY 12/05/2020 12/13/2020 Inactive fluticasone propionate 50 mcg/actuation nasal spray,suspensi on RxNorm: 0551610 USE 1 SPRAY IN EACH NOSTRIL TWICE DAILY 11/16/2020 11/16/2020 Inactive pregabalin 25 mg capsule RxNorm: 051657 Take 1 Capsule(s) Oral HS 0 11/12/2020 11/12/2020 Inactive pregabalin 50 mg capsule RxNorm: 408828 TAKE 1 CAPSULE BY MOUTH EACH MORNING 11/12/2020 11/12/2020 Inactive Gavilax 17 gram/dose oral powder RxNorm: 186384 DRINK 1 7 GRAMS MIXED INTO 8 OZS. OF JUICE OR WATER TWICE DAILY 10/16/2020 11/14/2020 Inactive PrePlus 27 mg iron-1 mg tablet RxNorm: Take 1 Tablet(s) Oral Q D 10/12/2020 11/11/2020 Inactive pregabalin 50 mg capsule RxNorm: 655624 TAKE 1 CAPSULE BY MOUTH EACH MORNING 10/12/2020 10/12/2020 Inactive Stimulant Laxative Plus 8.6 mg-50 mg tablet RxNorm: 073397 TAKE 2 TABLETS BY MOUTH TWICE DAILY 10/12/2020 10/12/2020 Inactive pregabalin 25 mg capsule RxNorm: 662585 Take 1 Capsule(s) Oral HS 0 10/12/2020 10/12/2020 Inactive loratadine 10 mg tablet RxNorm: 638750 TAKE 1 TABLET BY MOUTH DAILY 09/12/2020 09/12/2020 Inactive ketoconazole 2 % shampoo RxNorm: 885366 1 Application T opical twice weekly to face 07/20/2020 07/20/2020 Inactive OUT OF REFILLS Senna-S 8.6 mg-50 mg tablet RxNorm: 415393 TAKE 2 TABLETS BY MO UTH TWICE DAILY 07/17/2020 07/17/2020 Inactive PLEASE NEW RX+REFILL S FOR 31 DAYS. THANKS Miralax 17 gram oral powder packet RxNorm: 068080 TAKE 17 GRAMS MIXED INTO 8 OZS. OF JUICE OR WATER TWICE DAILY 06/27/2020 12/13/2020 Inactive OUT OF REFILLS Lyrica 25 mg capsule RxNorm: 919404 TAKE 1 CAPSULE BY M OUTH DAILY AT BEDTIME Capsule(s) Oral 06/14/2020 06/14/2020 Inactive Lyrica 50 mg capsule RxNorm: 655710 Capsule(s) Oral GM E 1 CAPSULE BY MOUTH EACH MORNING 06/14/2020 06/14/2020 Inactive fluticasone propionate 50 mcg/actuation nasal spray,suspensi on RxNorm: 6861170 [address] Nasal two times a day 06/06/2020 06/06/2020 Inactive OUT OF REFILLS Plus 27 mg-1 mg tablet RxNorm: 1 Tablet(s) PO Q D 1 Tablet(s) Oral QD 05/10/2020 10/15/2021 Inactive Senna-S 8.6 mg-50 mg tablet RxNorm: 029805 TAKE 2 TABLETS BY [facility] TWICE DAILY 04/10/2020 07/11/2020 Inactive PLEASE NEW RX+REFILL S FOR 31 DAYS. THANKS loratadine 10 mg tablet RxNorm: 608617 TAKE 1 TABLET BY MOUTH DAILY 04/10/2020 04/10/2020 Inactive PLEASE NEW RX+REFILLS FOR 31 DAYS. THANKS ketoconazole 2 % shampoo RxNorm: 118857 1 Application T opical twice weekly to face 03/22/2020 07/19/2020 Inactive OUT OF REFILLS Lyrica 50 mg capsule RxNorm: 861051 Capsule(s) Oral GM E 1 CAPSULE BY MOUTH EACH MORNING 02/10/2020 06/12/2020 Inactive Lyrica 25 mg capsule RxNorm: 715928 TAKE 1 CAPSULE BY [facility] DAILY AT BEDTIME Capsule(s) Oral 02/10/2020 06/08/2020 Inactive Senna-S 8.6 mg-50 mg tablet RxNorm: 918711 TAKE 2 TABLETS BY [facility] TWICE DAILY 01/13/2020 04/09/2020 Inactive PLEASE NEW RX+REFILL S FOR 31 DAYS. THANKS Miralax 17 gram oral powder packet RxNorm: 206157 TAKE 17 GRAMS MIXED INTO 8 OZS. OF JUICE OR WATER TWICE DAILY 01/10/2020 06/26/2020 Inactive OUT OF REFILLS Miralax 17 gram oral powder packet RxNorm: 369717 TAKE 17 GRAMS MIXED INTO 8 OZS. OF JUICE OR WATER TWICE DAILY 12/15/2019 01/09/2020 Inactive OUT OF REFILLS ketoconazole 2 % shampoo RxNorm: 013634 APPLY TO FACE TWICE PER WEE K 12/09/2019 03/21/2020 Inactive OUT OF REFILLS Plus 27 mg-1 mg tablet RxNorm: 1 Tablet(s) PO Q D 1 Tablet(s) Oral QD 11/17/2019 05/09/2020 Inactive loratadine 10 mg tablet RxNorm: 945018 TAKE 1 TABLET BY MOUTH DAILY 11/17/2019 04/09/2020 Inactive PLEASE NEW RX+REFILLS FOR 31 DAYS. THANKS Lyrica 50 mg capsule RxNorm: 131508 Capsule(s) Oral GM E 1 CAPSULE BY MOUTH EACH MORNING 10/18/2019 02/08/2020 Inactive Lyrica 25 mg capsule RxNorm: 794036 TAKE 1 CAPSULE BY M OUTH DAILY AT BEDTIME Capsule(s) Oral 10/18/2019 02/13/2020 Inactive Senna-S 8.6 mg-50 mg tablet RxNorm: 749132 TAKE 2 TABLETS BY MO [place] TWICE DAILY 10/18/2019 01/12/2020 Inactive PLEASE NEW RX+REFILL S FOR 31 DAYS. THANKS Bactrim DS 800 mg-160 mg tablet RxNorm: 084083 1 Tablet(s) Oral two times a day 10/04/2019 10/10/2019 Inactive Vitamin C 500 mg tablet RxNorm: 427917 1 Tablet(s) Oral QD 09/22/19 20 12/31/2021 Inactive citalopram 10 mg tablet RxNorm: 439675 1 Tablet(s) Oral QD 09/22/19 20 02/04/2021 Inactive omeprazole 40 mg capsule,delayed release RxNorm: 119850 1 Capsule(s) Oral QD for reflux 08/16/2019 09/21/2019 Inactive Clindagel 1 % topical gel, once daily RxNorm: 450910 Ap plication Topical QPM to face rash or prn for rosacea 07/21/2019 12/13/2020 Inactive loratadine 10 mg tablet RxNorm: 799929 TAKE 1 TABLET BY MOUTH DAILY 07/19/2019 11/15/2019 Inactive PLEASE NEW RX+REFILLS FOR 31 DAYS. THANKS Senna-S 8.6 mg-50 mg tablet RxNorm: 761530 TAKE 2 TABLETS BY MO UTH TWICE A DAY 07/19/2019 10/17/2019 Inactive PLEASE NEW RX+REFILL S FOR 31 DAYS. THANKS fluticasone propionate 50 mcg/actuation nasal spray,suspensi on RxNorm: 9654484 USE 1 SPRAY IN EACH NOSTRIL TWICE DAILY 07/01/2019 06/05/2020 Inactive OUT OF REFILLS Lyrica 50 mg capsule RxNorm: 267633 Capsule(s) Oral GM E 1 CAPSULE BY MOUTH EACH MORNING 06/16/2019 10/16/2019 Inactive Lyrica 25 mg capsule RxNorm: 001129 TAKE 1 CAPSULE BY M OUTH DAILY AT BEDTIME Capsule(s) Oral 06/16/2019 10/12/2019 Inactive Plus 27 mg-1 mg tablet RxNorm: 1 Tablet(s) PO Q D 1 Tablet(s) Oral QD 2019 11/16/2019 Inactive triamcinolone acetonide 0.025 % topical cream RxNorm: 470410 4 1 Application Topical two times a day apply thin layer to cheeks 05/03/2019 0 Inactive Lyrica 50 mg capsule RxNorm: 213292 Capsule(s) TAKE 1 C APSULE BY MOUTH EACH MORNING 02/22/2019 06/25/2019 Inactive Lyrica 25 mg capsule RxNorm: 071691 TAKE 1 CAPSULE BY MOUTH DOMINICK LY AT BEDTIME 02/22/2019 06/21/2019 Inactive loratadine 10 mg tablet RxNorm: 042843 TAKE 1 TABLET BY MOUTH DAILY 01/21/2019 03/23/2019 Inactive PLEASE NEW RX+REFILLS FOR 31 DAYS. THANKS Senna-S 8.6 mg-50 mg tablet RxNorm: 423889 TAKE 2 TABLETS BY MO UTH TWICE A DAY 01/21/2019 07/18/2019 Inactive PLEASE NEW RX+REFILL S FOR 31 DAYS. THANKS Macrobid 100 mg capsule RxNorm: 605556 1 Capsule(s) Oral two ti mes a day 01/11/2019 01/10/2019 Inactive Macrobid 100 mg capsule RxNorm: 974632 1 Capsule(s) Oral two ti mes a day 01/11/2019 01/21/2019 Inactive Cipro 250 mg tablet RxNorm: 738628 1 Tablet(s) Oral two times a day 01/05/2019 01/12/2019 Inactive Senna-S 8.6 mg-50 mg tablet RxNorm: 252412 TAKE 2 TABLETS BY MO UTH TWICE A DAY 12/21/2018 01/20/2019 Inactive NEED A NEW RX+REFILL S PLEASE FOR 31 DAYS. THANKS Plus 27 mg-1 mg tablet RxNorm: 1 Tablet(s) PO QD 11/0205/20/2019 Inactive doxycycline hyclate 100 mg capsule RxNorm: 3205285 1 Cap edison(s) Oral two times a day 11/23/2018 11/30/2018 Inactive doxycycline hyclate 100 mg capsule RxNorm: 5884230 1 Cap edison(s) Oral two times a day 11/23/2018 11/22/2018 Inactive loratadine 10 mg tablet RxNorm: 478285 1 Tablet(s) PO QD 11/23/201803/22/2018 Inactive doxycycline hyclate 100 mg capsule RxNorm: 7248336 1 Cap edison(s) Oral two times a day 11/23/2018 11/22/2018 Inactive Macrobid 100 mg capsule RxNorm: 455551 1 Capsule(s) PO BID 11/05/1911/10/2018 Inactive Macrobid 100 mg capsule RxNorm: 838712 1 Capsule(s) PO BID 11/05/1911/03/2018 Inactive Bactrim DS 800 mg-160 mg tablet RxNorm: 700607 1 Tablet(s) PO BID 0 10/29/2018 10/28/2018 Inactive Bactrim DS 800 mg-160 mg tablet RxNorm: 144415 1 Tablet(s) PO BID 0 10/29/2018 11/03/2018 Inactive Miralax 17 gram oral powder packet RxNorm: 231199 TAKE 17 GRAMS MIXED INTO 8 OZS. OF JUICE OR WATER TWICE DAILY 10/15/2018 01/15/2019 Inactive OUT OF REFILLS fluconazole 100 mg tablet RxNorm: 086174 1 Tablet(s) PO QD 10/13/1910/18/2018 Inactive clotrimazole-betamethasone 1 %-0.05 % topical cream RxNorm: 397058 Application TOP BID to foot rash for 1-2 weeks 10/12/2018 09/21/2019 Inactive fluticasone propionate 50 mcg/actuation nasal spray,suspensi on RxNorm: 0877011 USE 1 SPRAY IN EACH NOSTRIL TWICE DAILY 09/01/2018 12/29/2018 Inactive Senna-S 8.6 mg-50 mg tablet RxNorm: 455916 TAKE 2 TABLETS BY [facility] TWICE A DAY 08/19/2018 12/20/2018 Inactive nystatin 100,000 unit/gram topical cream RxNorm: 487947 1 Gram( s) TOP BID 08/10/2018 08/09/2018 Inactive acyclovir 800 mg tablet RxNorm: 308745 1 Tablet(s) PO 5x day 201808/09/2018 Inactive nystatin 100,000 unit/gram topical cream RxNorm: 728735 1 Gram( s) TOP BID 08/10/2018 08/19/2018 Inactive acyclovir 800 mg tablet RxNorm: 027701 1 Tablet(s) PO 5x day 201808/16/2018 Inactive Miralax 17 gram oral powder packet RxNorm: 883513 TAKE 17 GRAMS MIXED INTO 8 OZS. OF JUICE OR WATER TWICE DAILY 07/31/2018 10/14/2018 Inactive Lyrica 25 mg capsule RxNorm: 048184 TAKE 1 CAPSULE BY MOUTH DOMINICK LY AT BEDTIME 07/16/2018 08/14/2018 Inactive nystatin 100,000 unit/gram topical powder RxNorm: 841945 1 Application TOP BID to upper thighs for 14 days 06/29/2018 07/12/2018 Inactive nystatin 100,000 unit/gram topical powder RxNorm: 754390 1 Application TOP BID to upper thighs for 14 days 06/29/2018 06/28/2018 Inactive Plus 27 mg-1 mg tablet RxNorm: 1 Tablet(s) PO QD 06/0111/22/2018 Inactive loratadine 10 mg tablet RxNorm: 085850 1 Tablet(s) PO QD 06/16/2018 0 11/22/2018 Inactive Miralax 17 gram oral powder packet RxNorm: 930248 TAKE 17 GRAMS MIXED INTO 8 OZS. OF JUICE OR WATER TWICE DAILY 05/19/2018 07/30/2018 Inactive ketoconazole 2 % shampoo RxNorm: 275885 APPLY TO FACE TWICE PER WEE K 05/04/2018 11/29/2018 Inactive Macrobid 100 mg capsule RxNorm: 942265 1 Capsule(s) PO BID 04/17/1904/16/2018 Inactive Macrobid 100 mg capsule RxNorm: 007306 1 Capsule(s) PO BID 04/17/1904/26/2018 Inactive Zithromax Z-Vu 250 mg tablet RxNorm: 175192 Tablet(s) PO As Di rected 02/26/2018 03/02/2018 Inactive Tessalon Perles 100 mg capsule RxNorm: 686545 1 Capsule (s) PO TID as needed for cough 02/26/2018 01/04/2019 Inactive Senna-S 8.6 mg-50 mg tablet RxNorm: 964547 2 Tablet(s) PO BID 02/1608/14/2018 Inactive Miralax 17 gram oral powder packet RxNorm: 254362 TAKE 17 GRAMS MIXED INTO 8 OZS. OF JUICE OR WATER TWICE DAILY 01/08/2018 04/10/2018 Inactive Miralax 17 gram oral powder packet RxNorm: 802477 1 Tab let(s) PO BID TAKE 17 GRAMS MIXED INTO 8 OZS. OF JUICE OR WATER TWICE DAILY 11/17/20172017 Inactive Miralax 17 gram oral powder packet RxNorm: 330507 1 Tab let(s) PO QD TAKE 17 GRAMS MIXED INTO 8 OZS. OF JUICE OR WATER once DAILY 11/04/2017 021 Inactive polymyxin B sulfate 10,000 unit-trimethoprim 1 mg/mL eye bandar ps RxNorm: 236842 2 Drop(s) ophthalmic (eye) Q4H while awake 10/29/2017 11/04/2017 Inactiv e Lyrica 25 mg capsule RxNorm: 864333 TAKE 1 CAPSULE BY MOUTH EAC H EVENING 10/20/2017 07/16/2018 Inactive Senna-S 8.6 mg-50 mg tablet RxNorm: 150403 2 Tablet(s) PO BID 10/2002/15/2018 Inactive Lyrica 50 mg capsule RxNorm: 931821 TAKE 1 CAPSULE BY MOUTH EAC H MORNING 10/20/2017 01/20/2018 Inactive loratadine 10 mg tablet RxNorm: 836752 Tablet(s) TAKE 1 TABLET BY MOUTH DAILY 10/20/2017 06/16/2018 Inactive Plus 27 mg-1 mg tablet RxNorm: Tablet(s) TAKE 1 TABLET BY MOUTH DAILY 10/20/2017 06/16/2018 Inactive nystatin 100,000 unit/gram topical cream RxNorm: 236342 Gram(s) TOP BID for 2 weeks 09/16/2017 09/21/2019 Inactive loratadine 10 mg tablet RxNorm: 073385 TAKE 1 TABLET BY MOUTH DAILY 08/18/2017 10/20/2017 Inactive Plus 27 mg-1 mg tablet RxNorm: TAKE 1 TABLET BY MOUTH DAILY 08/18/2017 10/20/2017 Inactive Miralax 17 gram oral powder packet RxNorm: 440621 1 Tab let(s) PO BID TAKE 17 GRAMS MIXED INTO 8 OZS. OF JUICE OR WATER TWICE DAILY 06/13/20172017 Inactive Miralax 17 gram oral powder packet RxNorm: 524977 1 Tab let(s) PO BID TAKE 17 GRAMS MIXED INTO 8 OZS. OF JUICE OR WATER TWICE DAILY 06/13/20172020 Inactive doxycycline hyclate 100 mg capsule RxNorm: 8698125 1 Capsule(s) PO BID 06/06/2017 06/05/2017 Inactive Cipro 250 mg tablet RxNorm: 198017 1 Tablet(s) PO BID 06/06/201706/01 Inactive Cipro 250 mg tablet RxNorm: 710272 1 Tablet(s) PO BID 06/06/201707/2017 Inactive doxycycline hyclate 100 mg capsule RxNorm: 1148288 1 Capsule(s) PO BID 06/06/2017 06/12/2017 Inactive Senna-S 8.6 mg-50 mg tablet RxNorm: 733788 2 Tablet(s) PO BID 05/1910/20/2017 Inactive Miralax 17 gram oral powder packet RxNorm: 760921 1 Tab let(s) PO BID TAKE 17 GRAMS MIXED INTO 8 OZS. OF JUICE OR WATER TWICE DAILY 01/06/20172017 Inactive Senna-S 8.6 mg-50 mg tablet RxNorm: 389051 2 Tablet(s) PO BID 12/1105/19/2017 Inactive Abilify 5 mg tablet RxNorm: 399383 1 Tablet(s) PO QHS 11/21/201612/01 Inactive docusate sodium 100 mg capsule RxNorm: 0073170 1 Capsule(s) PO BID 09/17/2016 09/21/2019 Inactive [AttnRPh: Saving apply/adjud icate RxGRP:SG20 RxBIN:[id number] RxPCN: ID#:[id number]] loratadine 10 mg tablet RxNorm: 344515 1 Tablet(s) PO QD 09/17/2016 0 08/17/2017 Inactive [AttnRPh: Saving apply/adjudicate RxGRP: SG20 RxBIN:[id number] RxPCN: ID#:[id number]] Plus 27 mg-1 mg tablet RxNorm: 1 Tablet(s) PO QD 08/3108/17/2017 Inactive [AttnRPh: Saving apply/adjud icate RxGRP:SG20 RxBIN:[id number] RxPCN: ID#:[id number]] Calcium + D 600 mg (1,500 mg)-200 unit tablet RxNorm: 320864 1 Tablet(s) PO QD 09/17/2016 09/21/2019 Inactive ketoconazole 2 % shampoo RxNorm: 596504 APPLY TO FACE TWICE PER WEE K 08/26/2016 02/21/2017 Inactive fluticasone propionate 50 mcg/actuation nasal spray,suspensi on RxNorm: 1916423 [address] USE 1 SPRAY IN EACH NOSTRIL TWICE A DAY 07/30/2016 01/25/2017 In active Miralax 17 gram oral powder packet RxNorm: 402451 TAKE 17 GRAMS MIXED INTO 8 OZS. OF JUICE OR WATER TWICE DAILY 07/30/2016 01/06/2017 Inactive Senna-S 8.6 mg-50 mg tablet RxNorm: 766796 2 Tablet(s) PO BID 07/1512/10/2016 Inactive Lyrica 50 mg capsule RxNorm: 636255 TAKE 1 CAPSULE BY MOUTH EAC H MORNING 07/11/2016 08/09/2016 Inactive Miralax 17 gram oral powder packet RxNorm: 643190 TAKE 17 GRAMS MIXED INTO 8 OZS. OF JUICE OR WATER TWICE DAILY 07/04/2016 07/29/2016 Inactive Miralax 17 gram oral powder packet RxNorm: 289678 TAKE 17 GRAMS MIXED INTO 8 OZS. OF JUICE OR WATER TWICE DAILY 07/04/2016 08/03/2016 Inactive Miralax 17 gram oral powder packet RxNorm: 067826 TAKE 17 GRAMS MIXED INTO 8 OZS. OF JUICE OR WATER TWICE DAILY 06/13/2016 07/03/2016 Inactive benztropine 2 mg tablet RxNorm: 208670 1 Tablet(s) PO BID 04/15/2016 09/21/2019 Inactive ketoconazole 2 % shampoo RxNorm: 751139 APPLY TO FACE TWICE PER WEE K 04/01/2016 08/25/2016 Inactive ketoconazole 2 % shampoo RxNorm: 732063 APPLY TO FACE TWICE PER WEE K 04/01/2016 12/13/2020 Inactive Miralax 17 gram oral powder packet RxNorm: 331347 TAKE 17 GRAMS MIXED INTO 8 OZS. OF JUICE OR WATER TWICE DAILY 03/29/2016 06/12/2016 Inactive calcium carbonate 600 mg calcium (1,500 mg)-vit D3 1,0 00 unit capsule RxNorm: 5201780 1 Capsule(s) PO QD 03/15/2016 09/17/2016 Inactive fluticasone 50 mcg/actuation nasal spray,suspension RxNorm: 9504875 [address] USE 1 SPRAY IN EACH NOSTRIL TWICE A DAY 03/04/2016 07/29/2016 Inactive Miralax 17 gram oral powder packet RxNorm: 716263 1 Uni t Dose PO BID in 6-8oz water daily 02/28/2016 03/28/2016 Inactive attnrph: saving apply/adjudicate rxgrp:sg20 rxbin:[id number] rxpcn: id#:[id number] Senna-S 8.6 mg-50 mg tablet RxNorm: 959469 TAKE TWO TABLETS ORA LLY TWICE A DAY 01/18/2016 07/15/2016 Inactive ketoconazole 2 % shampoo RxNorm: 511387 APPLY TO FACE TWICE PER WEE K 12/04/2015 03/31/2016 Inactive benztropine 2 mg tablet RxNorm: 847921 1 Tablet(s) PO BID 11/20/2015 04/14/2016 Inactive cefuroxime axetil 250 mg tablet RxNorm: 862841 1 Tablet(s) PO BID 0 11/13/2015 11/19/2015 Inactive cefuroxime axetil 250 mg tablet RxNorm: 537184 1 Tablet(s) PO BID 0 11/13/2015 11/12/2015 Inactive ketoconazole 2 % shampoo RxNorm: 322827 APPLY TO FACE TWICE PER WEE K 11/08/2015 12/03/2015 Inactive loratadine 10 mg tablet RxNorm: 085586 1 Tablet(s) PO QD 10/16/2015 0 09/16/2016 Inactive [AttnRPh: Saving apply/adjudicate RxGRP: SG20 RxBIN:[id number] RxPCN: ID#:[id number]] docusate sodium 100 mg capsule RxNorm: 9560293 1 Capsule(s) PO BID 10/16/2015 09/17/2016 Inactive [AttnRPh: Saving apply/adjud icate RxGRP:SG20 RxBIN:[id number] RxPCN:HT ID#:[id number]] Plus 27 mg-1 mg tablet RxNorm: 1 Tablet(s) PO QD 10/0109/16/2016 Inactive [AttnRPh: Saving apply/adjud icate RxGRP:SG20 RxBIN:[id number] RxPCN: ID#:[id number]] Miralax 17 gram oral powder packet RxNorm: 959436 1 Uni t Dose PO BID in 6-8oz water daily 09/29/2015 09/28/2015 Inactive attnrph: saving apply/adjudicate rxgrp:sg20 rxbin:[id number] rxpcn: id#:[id number] fluticasone 50 mcg/actuation nasal spray,suspension RxNorm: 7287317 USE 1 SPRAY IN EACH NOSTRIL TWICE A DAY 09/12/2015 03/04/2016 Inactive benztropine 2 mg tablet RxNorm: 072173 1 Tablet(s) PO BID 09/11/2015 11/20/2015 Inactive benztropine 2 mg tablet RxNorm: 588830 1 Tablet(s) PO BID 07/25/2015 09/10/2015 Inactive ketoconazole 2 % shampoo RxNorm: 122555 APPLY TO FACE TWICE PER WEE K 07/24/2015 11/07/2015 Inactive Senna-S 8.6 mg-50 mg tablet RxNorm: 885481 TAKE TWO TABLETS ORA LLY TWICE A DAY 07/13/2015 01/14/2016 Inactive ketoconazole 2 % shampoo RxNorm: 503164 APPLY TO FACE TWICE PER WEE K 06/30/2015 07/23/2015 Inactive Miralax 17 gram oral powder packet RxNorm: 716715 1 Uni t Dose PO BID in 6-8oz water daily 06/19/2015 09/29/2015 Inactive attnrph: saving apply/adjudicate rxgrp:sg20 rxbin:[id number] rxpcn: id#:[id number] fluticasone 50 mcg/actuation nasal spray,suspension RxNorm: 251454 [address] NASAL BID 05/29/2015 09/11/2015 Inactive Opcon-A 0.97988 %-0.315 % eye drops RxNorm: 4741935 2 Drop(s) OP H PRN as needed 04/26/2015 04/25/2015 Inactive Culturelle 10 billion cell capsule RxNorm: 355009 1 Capsule(s) PO QD prn 04/26/2015 09/21/2019 Inactive calcium carbonate-vitamin D3 600 mg (1,500 mg)-1,000 u nit capsule RxNorm: 6106900 1 Capsule(s) PO QD 04/24/2015 07/06/2015 Inactive Senna-S 8.6 mg-50 mg tablet RxNorm: 757925 TAKE TWO TABLETS ORA LLY TWICE A DAY 04/24/2015 07/12/2015 Inactive ketoconazole 2 % shampoo RxNorm: 769241 1 Application TOP twice weekly to face 04/11/2015 06/29/2015 Inactive Senna-S 8.6 mg-50 mg tablet RxNorm: 288918 2 Tablet(s) PO QD TAKE 2 TABLETS ORALLY TWICE A DAY 01/20/2015 04/23/2015 Inactive out of refill s Miralax 17 gram oral powder packet RxNorm: 729116 1 Uni t Dose PO BID in 6-8oz water daily 11/21/2014 12/13/2020 Inactive attnrph: saving apply/adjudicate rxgrp:sg20 rxbin:085495 rxpcn: id#:[id number] Flonase Allergy Relief 50 mcg/actuation nasal spray,suspensi on RxNorm: [address] NASAL QHS 11/21/2014 07/22/2016 Inactive azithromycin 250 mg tablet RxNorm: 266814 2 Tablet(s) P O on day one, then one tablet on days 2 - 5 11/18/2014 12/20/2014 Inactive azithromycin 250 mg tablet RxNorm: 271064 2 Tablet(s) P O on day one, then one tablet on days 2 - 5 11/17/2014 11/17/2014 Inactive fluticasone 50 mcg/actuation nasal spray,suspension RxNorm: 619236 [address] NASAL BID 11/09/2014 11/08/2014 Inactive Plus 27 mg-1 mg tablet RxNorm: 1 Tablet(s) PO QD 10/0110/13/2015 Inactive [AttnRPh: Saving apply/adjud icate RxGRP:SG20 RxBIN:[id number] RxPCN:HT ID#:[id number]] Plus 27 mg-1 mg tablet RxNorm: 1 Tablet(s) PO QD 09/0110/18/2014 Inactive [AttnRPh: Saving apply/adjud icate RxGRP:SG20 RxBIN:[id number] RxPCN:HT ID#:[id number]] nystatin-triamcinolone 100,000 unit/g-0.1 % topical cream RxNorm : 2127126 BID 09/26/2014 10/09/2014 Inactive docusate sodium 100 mg capsule RxNorm: 6463317 1 Capsule(s) PO BID 09/26/2014 10/15/2015 Inactive [AttnRPh: Saving apply/adjud icate RxGRP:SG20 RxBIN:[id number] RxPCN:HT ID#:[id number]] trihexyphenidyl 2 mg tablet RxNorm: 169165 1 Tablet(s) PO BID 09/2612/20/2014 Inactive Miralax 17 gram oral powder packet RxNorm: 820630 1 Uni t Dose PO BID in 6-8oz water daily 09/26/2014 11/20/2014 Inactive attnrph: saving apply/adjudicate rxgrp:sg20 rxbin:818139 rxpcn:ht id#:[id number] loratadine 10 mg tablet RxNorm: 883730 Tablet(s) 1 Tabl et(s) PO QD 1 Tablet(s) PO QD 09/26/2014 10/16/2015 Inactive [AttnRPh: Saving apply/adjudicate RxGRP:SG20 RxBIN:[id number] RxPCN:HT ID#:[id number]] ketoconazole 2 % shampoo RxNorm: 417607 1 BIW lather and rinse after 10 min 09/26/2014 04/10/2015 Inactive Calcium + D 600 mg (1,500 mg)-200 unit tablet RxNorm: 104215 1 Tablet(s) PO QD 09/26/2014 09/19/2015 Inactive Senna-S 8.6 mg-50 mg tablet RxNorm: 819179 2 Tablet(s) PO QD TAKE 2 TABLETS ORALLY TWICE A DAY 09/26/2014 01/19/2015 Inactive out of refill s Senna-S 8.6 mg-50 mg tablet RxNorm: 700314 2 Tablet(s) PO QD TAKE 2 TABLETS ORALLY TWICE A DAY 07/20/2014 09/25/2014 Inactive out of refill s [AttnRPh: Saving apply/adjudicate RxGRP:SG20 RxBIN:[id number] RxPCN: ID#:[id number]] loratadine 10 mg tablet RxNorm: 659959 1 Tablet(s) PO QD 1 Tabl et(s) PO QD 04/25/2014 09/25/2014 Inactive [AttnRPh: Saving deyanira ly/adjudicate RxGRP:SG20 RxBIN:166348 RxPCN:HT ID#:[id number]] docusate sodium 100 mg capsule RxNorm: 2328554 1 Capsule(s) PO BID 04/04/2014 09/25/2014 Inactive [AttnRPh: Saving apply/adjud icate RxGRP:SG20 RxBIN:994725 RxPCN:HT ID#:[id number]] Senna-S 8.6 mg-50 mg tablet RxNorm: 250982 2 Tablet(s) PO QD TAKE 2 TABLETS ORALLY TWICE A DAY 03/15/2014 07/19/2014 Inactive OUT OF REFILL S [AttnRPh: Saving apply/adjudicate RxGRP:SG20 RxBIN:384279 RxPCN:HT ID#:[id number]] nystatin 100,000 unit/gram topical cream RxNorm: 740330 Applica tion TOP BID 03/15/2014 07/22/2016 Inactive [AttnRPh: Saving deyanira ly/adjudicate RxGRP:SG20 RxBIN:[id number] RxPCN:HT ID#:[id number]] Miralax 17 gram oral powder packet RxNorm: 727698 1 Uni t Dose PO BID in 6-8oz water daily 03/15/2014 09/25/2014 Inactive AttnRPh: Saving apply/adjudicate RxGRP:SG20 RxBIN:[id number] RxPCN:HT ID#:[id number] [AttnRPh: Saving apply/adjudicate RxGRP:SG20 RxBIN:107726 RxPCN:HT ID#:[id number]] Senna-S 8.6 mg-50 mg tablet RxNorm: 023457 2 Tablet(s) PO QD TAKE 2 TABLETS ORALLY TWICE A DAY 03/09/2014 03/14/2014 Inactive OUT OF REFILL S loratadine 10 mg tablet RxNorm: 925694 1 Tablet(s) PO QD 1 Tabl et(s) PO QD 10/28/2013 04/24/2014 Inactive [AttnRPh: Saving deyanira ly/adjudicate RxGRP:SG20 RxBIN:189698 RxPCN:HT ID#:[id number]] docusate sodium 100 mg capsule RxNorm: 6335279 1 Capsule(s) PO BID 10/21/2013 04/03/2014 Inactive [AttnRPh: Saving apply/adjud icate RxGRP:SG20 RxBIN:[id number] RxPCN:HT ID#:[id number]] Plus 27 mg-1 mg tablet RxNorm: 1 Tablet(s) PO QD 06/201309/25/2014 Inactive [AttnRPh: Saving apply/adjud icate RxGRP:SG20 RxBIN:513169 RxPCN:HT ID#:[id number]] Calcium + D 600 mg (1,500)-200 unit tablet RxNorm: 660465 1 Tab let(s) PO QD 09/21/2013 09/25/2014 Inactive loratadine 10 mg tablet RxNorm: 174876 1 Tablet(s) PO QD 1 Tabl et(s) PO QD 07/06/2013 10/28/2013 Inactive docusate sodium 100 mg capsule RxNorm: 9799845 1 Capsule(s) PO BID 04/12/2013 10/21/2013 Inactive Senna-S 8.6 mg-50 mg tablet RxNorm: 675698 2 Tablet(s) PO BID 01/0503/09/2014 Inactive loratadine 10 mg tablet RxNorm: 966232 1 Tablet(s) PO QD 01/04/2013 0 07/06/2013 Inactive Senna-S 8.6 mg-50 mg tablet RxNorm: 275969 2 Tablet(s) PO BID 01/0401/04/2013 Inactive loratadine 10 mg tablet RxNorm: 8594986 1 Tablet(s) PO QD 10/05/2012 01/04/2013 Inactive Senna-S 8.6 mg-50 mg tablet RxNorm: 490055 2 Tablet(s) PO BID 10/0501/04/2013 Inactive Calcium + D 600 mg (1,500)-200 unit tablet RxNorm: 444541 1 Tab let(s) PO QD 09/11/2012 09/21/2013 Inactive docusate sodium 100 mg capsule RxNorm: 4859438 1 Capsule(s) PO BID 09/10/2012 03/08/2013 Inactive Plus 27 mg-1 mg tablet RxNorm: 1 Tablet(s) PO QD 08/3109/04/2013 Inactive Senna-S 8.6 mg-50 mg tablet RxNorm: 899574 2 Tablet(s) PO BID 09/1010/04/2012 Inactive loratadine 10 mg tablet RxNorm: 0667273 1 Tablet(s) PO QD 09/10/2012 09/09/2012 Active divalproex ER 500 mg tablet,extended release 24 hr RxNorm: 1 810615 1 Tablet(s) PO BID 09/10/2012 09/21/2019 Inactive Nasonex 50 mcg/actuation [address] RxNorm: 479799 [address] NASAL BID 07/22/2016 Inactive Depakote 500 mg tablet,delayed release RxNorm: 4715712 1 Tablet( s) PO BID 08/10/2012 12/20/2014 Inactive loratadine 10 mg tablet RxNorm: 9445213 1 Tablet(s) PO QD 06/29/2012 09/09/2012 Inactive docusate sodium 100 mg capsule RxNorm: 1200522 1 Capsule(s) PO BID 06/29/2012 09/09/2012 Inactive divalproex 250 mg tablet,delayed release RxNorm: 8359967 1 Table t(s) PO QPM 06/08/2012 09/21/2019 Inactive Depakote 500 mg tablet,delayed release RxNorm: 4137443 1 Tablet( s) PO BID 04/13/2012 07/11/2012 Inactive Senna-S 8.6 mg-50 mg tablet RxNorm: 917327 2 Tablet(s) PO BID 03/1604/14/2012 Inactive Plus 27 mg-1 mg tablet RxNorm: 1 Tablet(s) PO QD 01/3109/09/2012 Inactive divalproex ER 500 mg tablet,extended release 24 hr RxNorm: 1 661347 1 Tablet(s) PO BID 02/10/2012 04/09/2012 Inactive divalproex 250 mg tablet,delayed release RxNorm: 2930296 1 Table t(s) PO QPM 09/30/2011 04/26/2012 Inactive Nasonex 50 mcg/actuation [address] RxNorm: 1204087 [address] NASAL BID 03/13/2012 Inactive Depakote 500 mg tablet,delayed release RxNorm: 5871398 1 Tablet( s) PO BID 08/14/2011 02/09/2012 Inactive divalproex ER 500 mg tablet,extended release 24 hr RxNorm: 1 216253 1 Tablet(s) PO BID 06/17/2011 08/15/2011 Inactive Benadryl 25 mg Cap RxNorm: 7708793 1 Capsule(s) PO QHS as needed for sinus drainage. May cause drowsiness. 05/23/2011 11/29/2013 Inactive divalproex ER 500 mg 24 hr Tab RxNorm: 2111628 1 Tablet(s) PO BID 0 04/15/2011 06/13/2011 Inactive Nasonex 50 mcg/actuation [address] RxNorm: 6434470 [address] NASAL BID 09/15/2011 Inactive Amitiza 24 mcg Cap RxNorm: 296311 1 Capsule(s) PO BID 03/19/201105/01 Inactive Sennalax-S 8.6 mg-50 mg Tab RxNorm: 141586 2 Tablet(s) PO BID 03/1907/16/2011 Inactive Nasonex 50 mcg/Actuation [address] RxNorm: 2299927 [address] NASAL BID 03/24/2011 Inactive divalproex 250 mg Tab, Delayed Release RxNorm: 5570270 1 Tablet( s) PO QPM 02/27/2011 09/24/2011 Inactive Plus 27 mg-1 mg tablet RxNorm: 1 Tablet(s) PO QD 02/0105/20/2011 Inactive divalproex ER 500 mg 24 hr Tab RxNorm: 1142294 1 Tablet(s) PO BID 1 04/15/2010 04/12/2011 Inactive Amitiza 24 mcg Cap RxNorm: 708922 1 Capsule(s) PO BID 01/14/201103/03 Inactive Nasonex 50 mcg/Actuation [address] RxNorm: 9591291 [address] NASAL BID 03/16/2011 Inactive Depakote 500 mg Tab RxNorm: 4487483 1 Tablet(s) PO BID 09/18/2010 Inactive divalproex 250 mg Tab, Delayed Release RxNorm: 6776520 1 Tablet( s) PO QPM 07/31/2010 02/25/2011 Inactive Amitiza 24 mcg Cap RxNorm: 584749 1 Capsule(s) PO BID 06/19/201001/01 Inactive divalproex ER 500 mg 24 hr Tab RxNorm: 2152291 1 Tablet(s) PO BID 0 03/27/2010 09/22/2010 Inactive Amitiza 24 mcg Cap RxNorm: 792214 1 Capsule(s) PO BID 03/20/201006/01 Inactive Sennalax-S 8.6 mg-50 mg Tab RxNorm: 304877 2 Tablet(s) PO BID 03/2007/17/2010 Inactive divalproex 250 mg Tab, Delayed Release RxNorm: 2322688 1 Tablet( s) PO QPM 03/06/2010 07/30/2010 Inactive Amitiza 24 mcg Cap RxNorm: 834653 1 Capsule(s) PO BID 12/27/200903/03 Inactive Abilify 5 mg Tab RxNorm: 798656 1 Tablet(s) PO QD 12/13/2009 01/01/20 Inactive Abilify 5 mg Tab RxNorm: 248898 1 Tablet(s) PO QD 11/23/2009 12/13/19 10 Inactive Nasonex 50 mcg/Actuation [address] RxNorm: 7135269 [address] NASAL BID 11/06/2009 Active Divalproex 250 mg Tab, Delayed Release RxNorm: 7611748 1 Tablet( s) PO QHS 10/26/2009 12/31/2009 Inactive Divalproex 250 mg Tab, Delayed Release RxNorm: 7548032 1 Tablet( s) PO QHS 10/26/2009 10/25/2009 Inactive Fluoxetine 10 mg Tab RxNorm: 288448 1 Tablet(s) PO QD 10/26/200912/03 Inactive Abilify 5 mg Tab RxNorm: 361038 1 Tablet(s) PO QD 10/24/2009 11/23/19 10 Inactive Amitiza 24 mcg Cap RxNorm: 253192 1 Capsule(s) PO BID 09/28/200910/02 Inactive divalproex SR 500 mg 24 hr Tab RxNorm: 6191408 1 Tablet(s) PO BID 0 08/31/2009 10/29/2009 Inactive Divalproex SR 500 mg 24 hr Tab RxNorm: 3841977 1 Tablet(s) PO BID 0 08/23/2009 08/30/2009 Inactive Sennalax-S 8.6 mg-50 mg Tab RxNorm: 228883 2 Tablet(s) PO BID 08/1709/15/2009 Inactive Divalproex SR 500 mg 24 hr Tab RxNorm: 1719886 1 Tablet(s) PO BID 0 07/20/2009 08/18/2009 Inactive Clindamycin 300 mg Cap RxNorm: 688253 1 Capsule(s) PO BID 06/23/2009 06/29/2009 Inactive Tylenol Extra Strength 500 mg Tab RxNorm: 699471 Tablet(s) PO PRN Active Pepto-Bismol 262 mg chewable tablet RxNorm: 814805 Tablet(s) PO as needed 07/07/2015 Active Robitussin Cough-Congestion 100 mg/5 mL syrup RxNorm: 132100 Milliliter(s) PO as needed 07/07/2015 Active alprazolam 1 mg tablet RxNorm: 350037 1 Tablet(s) PO QD as needed 0 07/07/2015 12/13/2020 Inactive Opcon-A 0.69007 %-0.315 % Eye Drops RxNorm: 2973169 Drop(s) OPH PRN 04/26/2015 04/25/2015 Inactive Amitiza 24 mcg Cap RxNorm: 586194 1 Capsule(s) PO BID 09/28/200909/01 Inactive Depakote 250 mg Tab RxNorm: 9450038 1 Tablet(s) PO QPM 01/01/2010 Inactive fluticasone 50 mcg/actuation nasal spray,suspension RxNorm: 095653 [address] NASAL BID 11/09/2014 11/08/2014 Inactive Mucinex 600 mg tablet, extended release RxNorm: 275647 Tablet(s ) PO as needed 07/07/2015 12/13/2020 Inactive Depakote 500 mg Tab RxNorm: 0547867 1 Tablet(s) PO BID 09/18/2010 Inactive Ketoconazole 2 % Shampoo RxNorm: 100488 1 TOP PRN 09/26/2014 015 Inactive alfalfa 650 mg tablet RxNorm: 288446 1 Tablet(s) PO QID 09/22/2019 Inactive Culturelle 10 billion cell capsule RxNorm: 022598 Capsule(s) PO as needed 09/22/2019 09/21/2019 Inactive bethanechol chloride 50 mg tablet RxNorm: 464399 1 Tablet(s) PO AC & HS 09/22/2019 09/21/2019 Inactive loratadine 10 mg tablet RxNorm: 6110922 1 Tablet(s) PO QD 06/29/2012 06/28/2012 Inactive Senna Concentrate Oral RxNorm: Oral 03/20/2010 03/20/2010 Inact dalia desmopressin 0.2 mg tablet RxNorm: 366194 3 Tablet(s) PO QHS 201707/13/2017 Inactive Fluoxetine 10 mg Tab RxNorm: 793538 1 Tablet(s) PO QD 10/26/200910/02 Inactive azithromycin 250 mg Tab RxNorm: 457689 Tablet(s) PO gm e 2 tablets on day one and one tablet on days 2-5. 10/01/2011 09/30/2011 Inactive Lyrica 25 mg capsule RxNorm: 769019 1 Capsule(s) PO QPM 10/20/2017 Inactive docusate sodium 100 mg capsule RxNorm: 8005969 1 Capsule(s) PO BID 06/29/2012 06/28/2012 Inactive Senna-S 8.6 mg-50 mg tablet RxNorm: 341989 Tablet(s) PO 03/16/2012 Inactive Zithromax Z-Vu 250 mg Tab RxNorm: 681873 Tablet(s) PO 10/01/2011 Inactive as directed ketoconazole 2 % shampoo RxNorm: 314477 1 Application TOP twice weekly to face 04/11/2015 04/10/2015 Inactive Abilify 10 mg Tab RxNorm: 238320 1 Tablet(s) PO QD 11/21/2016 017 Inactive Lyrica 50 mg capsule RxNorm: 827962 1 Capsule(s) PO QAM 07/11/2016 Inactive divalproex 250 mg Tab, Delayed Release RxNorm: 9538835 1 Tablet( s) PO QPM 03/06/2010 03/05/2010 Inactive Flonase 50 mcg/Actuation Nasal [address] RxNorm: 0371310 [address] JOES AL BID 11/22/2010 11/21/2010 Inactive Cerovite Advanced Formula Oral RxNorm: Oral 12/02/2011 12/01/19 12 Inactive trihexyphenidyl 2 mg tablet RxNorm: 811918 1 Tablet(s) PO BID 09/2609/25/2014 Inactive Culturelle 10 billion cell Cap RxNorm: 320583 1 Capsule(s) PO QD pr n 04/26/2015 04/25/2015 Inactive Flonase Allergy Relief 50 mcg/actuation nasal spray,suspensi on RxNorm: [address] NASAL QHS 11/21/2014 11/20/2014 Inactive trihexyphenidyl 5 mg tablet RxNorm: 263546 1 Tablet(s) PO BID 09/2109/21/2019 Inactive Amitiza 24 mcg Cap RxNorm: 453420 1 Capsule(s) PO QAM 12/27/200912/02 Inactive Milk of Magnesia 400 mg/5 mL oral suspension RxNorm: 233902 30 Milliliter(s) PO QD as needed 06/30/2017 12/13/2020 Inactive Miralax 17 gram oral powder packet RxNorm: 680673 1 Uni t Dose PO QD in 6-8oz water daily 03/15/2014 03/14/2014 Inactive AttnRPh: Saving apply/adjudicate RxGRP:SG20 RxBIN:[id number] RxPCN: ID#:[id number] Calcium + D 600 mg (1,500)-200 unit tablet RxNorm: 140805 1 Tab let(s) PO QD 09/11/2012 09/10/2012 Inactive Flonase 50 mcg/actuation nasal spray,suspension RxNorm: [address] NASAL QHS 11/09/2014 11/09/2014 Inactive Benadryl 25 mg capsule RxNorm: 5530920 Capsule(s) PO as needed 08/201512/13/2020 Inactive Nasonex 50 mcg/Actuation [address] RxNorm: 2480105 1 NASAL PRN 010 11/06/2009 Inactive benztropine 2 mg tablet RxNorm: 734687 1 Tablet(s) PO BID 07/25/2015 07/24/2015 Inactive Lamisil AT 1 % topical cream RxNorm: 985379 1 Applicati on TOP BID for 2-4 weeks for athletes foot 07/07/2015 07/06/2015 Inactive Medication Administered No Medication Administered data Immunizations Vaccine Codes Dose Date Status Influenza (Adult) CVX: 141 11/23/2009 Results Observation Observation Code Item Item Code Result Date S ervice Location CANCEL [id number] CANCEL FOOTNOTE 07/25/2010 Unknown Procedures Procedure Codes Date URINALYSIS NONAUTO W/O SCOPE CPT-4: 23830 10/04/2019 [facility] URINE CULTURE/ COLONY COUNT CPT-4: 12347 10/04/19 20 PPPS, subseq visit CPT-4: G0439 09/22/2019 [facility] URINE CULTURE/ COLONY COUNT CPT-4: 99487 01/06/20 19 URINALYSIS NONAUTO W/O SCOPE CPT-4: 52392 01/05/2019 URINALYSIS NONAUTO W/O SCOPE CPT-4: 61910 10/29/2018 [facility] URINE CULTURE/ COLONY COUNT CPT-4: 81131 10/30/19 19 PPPS, subseq visit CPT-4: G0439 09/17/2018 PPPS, subseq visit CPT-4: G0439 08/25/2017 PPPS, subseq visit CPT-4: G0439 03/28/2015 PRESCRIP TRANSMIT VIA ERX SY CPT-4: G8553 11/17/2014 DESTRUCT PREMALG LESION (Cryosurgery) CPT-4: 82228 PRESCRIP TRANSMIT VIA ERX SY CPT-4: G8553 09/26/2014 PRESCRIP TRANSMIT VIA ERX SY CPT-4: G8553 03/15/2014 PPPS, subseq visit CPT-4: G0439 04/27/2013 PRESCRIP TRANSMIT VIA ERX SY CPT-4: G8553 05/23/2011 PRESCRIP TRANSMIT VIA ERX SY CPT-4: G8553 11/22/2010 R[facility] URINE CULTURE/ COLONY COUNT CPT-4: 66520 08/04/19 11 RML URINE CULTURE/ COLONY COUNT CPT-4: 72985 07/24/19 11 URINALYSIS NONAUTO W/O SCOPE CPT-4: 37434 07/23/2010 IMMUNIZATION ADMIN CPT-4: 08611 01/01/2010 TDAP VACCINE 7 YRS/> IM CPT-4: 66349 01/01/2010 FLU VACCINE 3 YRS & > IM UP 64 CPT-4: 45852 0 ADMIN INFLUENZA VIRUS VAC CPT-4: G0008 11/23/2009 PRESCRIP TRANSMIT VIA ERX SY CPT-4: G8553 11/23/2009 Vital Signs Date Vital 04/22/2022 Blood Pressure 1: 126/74 Code: 8480-6 Heart Rate 1: 75 bpm Respiratory Rate: 20 bpm SpO2: 96% Temperature: 36.3 (C) / 97.3 (F) We ight: 174 lbs Code: 07594-6 02/18/2022 Blood Pressure 1: 130/72 Code: 8480-6 Heart Rate 1: 72 bpm Height: 5'9" Code: 8302-2 SpO2: 95% Temperature: 36.3 (C) / 97.3 (F) 02/04/2022 Blood Pressure 1: 117/68 Code: 8480-6 Heart Rate 1: 51 bpm Height: Code: 8302-2 SpO2: 100% Temperature: 35.9 (C) / 96.7 (F) Weight: Code: 08307-6 01/17/2022 Blood Pressure 1: 113/71 Code: 8480-6 BMI: 25.7 Code: 58343-8 Heart Rate 1: 64 bpm Height: 5'9" Code: 8302-2 SpO2: 99% Temperature: 3 6.3 (C) / 97.3 (F) Weight: 174 lbs Code: 30945-5 01/01/2022 Blood Pressure 1: 132/74 Code: 8480-6 BMI: 25.7 Code: 91684-7 Heart Rate 1: 66 bpm Height: 5'9" Code: 8302-2 SpO2: 98% Temperature: 3 6.6 (C) / 97.8 (F) Weight: 174 lbs Code: 82410-3 12/17/2021 Blood Pressure 1: 110/68 Code: 8480-6 BMI: 25.7 Code: 56674-3 Heart Rate 1: 59 bpm Height: 5'9" Code: 8302-2 SpO2: 100%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 Education: Patient Medication Summary Completed 05/23/2011 Visit Plan: Continue claritin Add Z-pack 11/22/2010 Appointment: Tish Noe WPtel: [address] [place], [place] [phone] FOLLOW UP 11/22/2010 Patient Education: Patient Medication Summary Completed 11/22/2010 Appointment: Tish Noe WPtel: [address] [place], [place] [phone] [facility] 08/03/2010 Patient Education: Patient Medication Summary Completed 08/03/2010 Appointment: Tish Noe WPtel: [address] [place], [place] [phone] [facility] 07/23/2010 Patient Education: Patient Medication Summary Completed 07/23/2010 Visit Plan: Cont current meds Repeat lab in 6mos 05/24/2010 Appointment: Tish Noe WPtel: [address] [place], [place] [phone] FOLLOW UP 05/24/2010 Patient Education: Patient Medication Summary Completed 05/24/2010 Appointment: Tish Noe WPtel: [address] [place], [place] [phone] [facility] 01/01/2010 Patient Education: Patient Medication Summary Completed 01/01/2010 Appointment: Tish Noe WPtel: [address] [place], [place] [phone] FOLLOW UP 11/23/2009 Patient Education: Patient Medication Summary Completed 11/23/2009 Visit Plan: Check CMP, CBC, TSH, Free T4 , Depakote level, Vit D, B12, Lipids Start Abilify 5mg QD See Psych 10/24/2009 Appointment: Tish Noe WPtel: [address] [place], [place] [phone] ESTABLISHED PATIENT 10/24/2009 Patient Education: Patient Medication Summary Completed 10/24/2009 Visit Plan: Caregiver present states the pt. has not complained of pain or other symptoms. Swelling is present on left upper cheek. Caregiver states the pt. has eaten normally over the last few days. Pt. reports pain with eating. Instructed medicare coordinator to seek re-eval if symptoms persist or fever appears. OTC Tylenol or Motrin for discomfort recommended. 06/23/2009 Appointment: Kiley Wilson WPtel: [address] [place] [phone] ACUTE ILLNESS 06/23/2009 Patient Education: Patient Medication Summary Completed 06/23/2009 Referral: Yajaira Corea WPtel: [address] [place] [address] [place] Referral Initiated Referral: Gilbert Covarrubias WPtel: [address] [place] [address] [place] Referral Initiated Referral: Earl Jordan WPtel: [phone] [place] [id number] [place] Referral Initiated Instructions Comment Date . [...] tremor on e xam--discussed parkinson's symptoms with concession manager 10/01/2011 . Proceed with hearing evaluation Proceed [...] days. Pt. reports pain with eating. Instructed medicare coordinator to seek re-eval if symptoms persist or [...]
--- OUTSIDE RECORDS SUMMARY | 2022-07-03 13:17 | XMS REPORT | CCD ---
Author Author Steve Noe D.O. Organization [facility] Address [address] [place] [address] Phone Care Team Providers Care Wind Up Operator Name Role Phone Tish Noe D.O., PP Unavailable CCM Unavailable Summary Purpose Interface Exchange Insurance Providers Payer name Policy type / Coverage type Covered green party ID Effective Begin Date Effective End Date WPS MEDICARE PART B [place] Medicare Part B [id number] 2018 Unknown AETNA [facility] Medicare Part B [id number] Unknown Family history Father Diagnosis Age At Onset *Denies any medical problems Unknown Mother Diagnosis Age At Onset *Denies any medical problems Unknown Social History Social History Element Codes Description Effective Dates Tobacco history SNOMED CT: 778456939 Never smoker 11/17/2014 Marital status Unknown Single [...] Start Date Stop Date Status Fill Instructions Culturelle 10 billion cell capsule RxNorm: 238667 Take 1 Capsul e(s) Oral QD 06/06/2022 08/04/2022 Active tetracycline 500 mg capsule RxNorm: 519614 Take 1 Capsu le(s) Oral four times a day 2022 05/30/2022 Inactive tetracycline 500 mg capsule RxNorm: 288915 1 Capsule(s) Oral fo ur times a day 2022 2022 Inactive Macrobid 100 mg capsule RxNorm: 036457 Take 1 Capsule(s) Oral t wo times a day 05/20/2022 05/20/2022 Inactive Macrobid 100 mg capsule RxNorm: 053301 1 Capsule(s) Oral two ti mes a day 05/20/2022 05/20/2022 Inactive pregabalin 50 mg capsule RxNorm: 693957 Take 1 Capsule(s) Oral QAM 05/15/2022 05/15/2022 Inactive Stimulant Laxative Plus 8.6 mg-50 mg tablet RxNorm: 853963 TAKE 2 TABLETS BY MOUTH TWICE DAILY 05/13/2022 08/13/2022 Active PLEASE NEW RX+ REFILLS FOR 31 DAYS THANKS Cipro 250 mg tablet RxNorm: 510424 Take 1 Tablet(s) Oral two ti mes a day 04/29/2022 05/08/2022 Inactive Cipro 250 mg tablet RxNorm: 783767 1 Tablet(s) Oral two times a day 04/29/2022 04/29/2022 Inactive Keppra 100 mg/mL oral solution RxNorm: 191088 Take 15 M illiliter(s) Oral two times a day 04/22/2022 08/19/2022 Active omeprazole 40 mg capsule,delayed release RxNorm: 101478 Take 1 Capsule(s) Oral QD 04/15/2022 10/11/2022 Active RX QTT LEFT NOT ENOUGH FOR 93 DAYS PLEASE NEW RX+REFILLS THANKS ketoconazole 2 % shampoo RxNorm: 663802 APPLY TO FACE TWICE PER WEE K 04/10/2022 05/09/2022 Inactive ciclopirox 8 % topical solution RxNorm: 983309 APPLY TO AFFECTED TOENAILS EVERY NIGHT AT BEDTIME OR 8 HOURS BEFORE WASHING 03/26/2022 04/24/2022 Inact dalia aripiprazole 10 mg tablet RxNorm: 190109 Take 1 Tablet(s) Oral HS 0 03/25/2022 05/25/2022 Inactive RX NEED A NEW RX+REF ILLS FOR 93 DAYS THANKS mirtazapine 15 mg tablet RxNorm: 447008 Take 1 Tablet(s) Oral HS 05/25/2022 Inactive RX NEED A NEW RX+REF ILLS FOR 93 DAYS THANKS polyethylene glycol 3350 17 gram/dose oral powder RxNorm: 87 6193 DRINK 17 GRAMS MIXED INTO 8 OZS. OF JUICE OR WATER TWICE DAILY 03/25/2022 06/22/2022 Active citalopram 40 mg tablet RxNorm: 024984 Take 1 Tablet(s) Oral QD 05/25/2022 Inactive RX NEED A NEW RX+REF ILLS FOR 93 DAYS THANKS Keppra 100 mg/mL oral solution RxNorm: 206100 Take 10 M illiliter(s) Oral two times a day 03/25/2022 03/25/2022 Inactive Keppra 100 mg/mL oral solution RxNorm: 406028 Take 10 M illiliter(s) Oral two times a day 03/25/2022 04/21/2022 Inactive lamotrigine 100 mg tablet RxNorm: 012194 Take 1 Tablet(s) Oral two times a day 03/18/2022 04/21/2022 Inactive PLEASE NEW RX+REFIIL S FOR 93 DAYS THANKS PrePlus 27 mg iron-1 mg tablet RxNorm: Take 1 Tablet(s) Oral Q D 03/13/2022 03/19/2023 Active PLEASE NEW RX+REFIILS FOR 93 DAYS THANKS loratadine 10 mg tablet RxNorm: 972026 Take 1 Tablet(s) Oral QD 05/20/2022 Inactive Lamictal 100 mg tablet RxNorm: 378950 Take 1 Tablet(s) Oral two times a day 02/20/2022 02/20/2022 Inactive Keppra 1,000 mg tablet RxNorm: 959425 Take 1 Tablet(s) Oral two times a day 02/18/2022 04/21/2022 Inactive loratadine 10 mg tablet RxNorm: 047206 TAKE 1 TABLET BY MOUTH 2 TIMES DAILY Take 1 Tablet(s) Oral two times a day 02/18/2022 02/19/2022 Inactive PLEASE NEW RX+REFILLS FOR 31 DAYS THANKS cephalexin 500 mg capsule RxNorm: 151135 Take 1 Capsule (s) Oral three times a day 02/18/2022 02/24/2022 Inactive fluticasone propionate 50 mcg/actuation nasal spray,suspensi on RxNorm: 1630336 SPRAY 1 SPRAY INTO EACH NOSTRIL TWICE DAILY 02/12/2022 08/10/2022 Acti ve omeprazole 40 mg capsule,delayed release RxNorm: 507376 Take 1 Capsule(s) Oral QD 02/12/2022 02/12/2022 Inactive Patient reques ts 90 days supply Stimulant Laxative Plus 8.6 mg-50 mg tablet RxNorm: 904051 TAKE 2 TABLETS BY MOUTH TWICE DAILY 02/12/2022 04/21/2022 Inactive PLEASE NEW RX+ REFILLS FOR 31 DAYS THANKS Lamictal 100 mg tablet RxNorm: 301475 Take 1 Tablet(s) Oral two times a day 02/11/2022 02/11/2022 Inactive Lamictal 100 mg tablet RxNorm: 882879 1 Tablet(s) Oral two time s a day 02/11/2022 02/11/2022 Inactive omeprazole 40 mg capsule,delayed release RxNorm: 501235 Take 1 Capsule(s) Oral QD 02/07/2022 02/07/2022 Inactive Patient reques ts 90 days supply Culturelle 10 billion cell capsule RxNorm: 156795 Take 1 Capsul e(s) Oral QD 02/05/2022 02/05/2022 Inactive Keppra 500 mg tablet RxNorm: 822488 Take 1 Tablet(s) Oral QD 202102/17/2022 Inactive Benadryl Allergy 25 mg tablet RxNorm: 3796306 Take 1 Tab let(s) Oral Every 6 hours as needed for hives 01/17/2022 No Stop Date Active pregabalin 50 mg capsule RxNorm: 818047 Take 1 Capsule(s) Oral QAM 01/01/2022 02/04/2022 Inactive pregabalin 25 mg capsule RxNorm: 702211 Take 1 Capsule(s) Oral QAM 01/01/2022 01/01/2022 Inactive Lamictal 100 mg tablet RxNorm: 029258 Take 1 Tablet(s) Oral QD 03/202102/04/2022 Inactive levetiracetam 250 mg tablet RxNorm: 557783 Take 1 Table t(s) Oral two times a day 01/01/2022 01/01/2022 Inactive Keppra 1,000 mg tablet RxNorm: 462067 Take 1 Tablet(s) Oral two times a day replaces 500mg dose 01/01/2022 02/17/2022 Inactive Depakote 500 mg tablet,delayed release RxNorm: 5793343 T willi 1 Tablet(s) Oral two times a day 01/01/2022 01/01/2022 Inactive Augmentin 500 mg-125 mg tablet RxNorm: 378594 1 Tablet(s) Oral two times a day 12/25/2021 12/25/2021 Inactive Augmentin 500 mg-125 mg tablet RxNorm: 311758 Take 1 Ta blet(s) Oral two times a day 12/25/2021 12/29/2021 Inactive Depakote 250 mg tablet,delayed release RxNorm: 0478087 T willi 1 Tablet(s) Oral two times a day for seizure 12/17/2021 12/31/2021 Inactive pregabalin 50 mg capsule RxNorm: 880930 TAKE 1 CAPSULE BY MOUTH EACH MORNING 12/12/2021 12/31/2021 Inactive PLEASE NEW RX+REFILL S FOR 31 DAYS. THANKS pregabalin 25 mg capsule RxNorm: 662683 Take 1 Capsule(s) Oral two times a day 12/12/2021 12/31/2021 Inactive loratadine 10 mg tablet RxNorm: 356520 TAKE 1 TABLET BY MOUTH DAILY 12/08/2021 12/08/2021 Inactive PLEASE NEW RX+REFILLS FOR 31 DAYS THANKS fluticasone propionate 50 mcg/actuation nasal spray,suspensi on RxNorm: 0824353 SPRAY 1 SPRAY INTO EACH NOSTRIL TWICE DAILY 12/04/2021 12/04/2021 Inac tive levetiracetam 1,000 mg tablet RxNorm: 217145 Take 1 Tablet(s) O ral QPM 12/04/2021 12/11/2021 Inactive levetiracetam 750 mg tablet RxNorm: 206655 Take 1 Tablet(s) Oral QA M 12/04/2021 12/11/2021 Inactive levetiracetam 750 mg tablet RxNorm: 922638 Take 1 Tablet(s) Oral QA M 11/26/2021 11/26/2021 Inactive levetiracetam 1,000 mg tablet RxNorm: 356216 Take 1 Tablet(s) O ral QPM 11/26/2021 11/26/2021 Inactive levetiracetam 750 mg tablet RxNorm: 229035 Take 1 Tablet(s) Oral QA M 11/26/2021 12/31/2021 Inactive levetiracetam 1,000 mg tablet RxNorm: 340378 Take 1 Tablet(s) O ral QPM 11/26/2021 12/31/2021 Inactive levetiracetam 750 mg tablet RxNorm: 655171 Take 1 Tablet(s) Oral QA M 11/19/2021 11/26/2021 Inactive melatonin 5 mg tablet RxNorm: 830081 TAKE 1 TABLET BY M OUTH DAILY IN THE EVENING NEEDED FOR SLEEP 11/06/2021 11/06/2021 Inactive melatonin 5 mg tablet RxNorm: 694210 Take 1 Tablet(s) O ral every night at bedtime 11/06/2021 12/31/2021 Inactive Senna Plus 8.6 mg-50 mg tablet RxNorm: 008453 Take 1 Ta blet(s) Oral two times a day 10/16/2021 11/14/2021 Inactive nystatin 100,000 unit/gram topical cream RxNorm: 487509 Apply Application Topical two times a day to lateral foot rash for 2 weeks and as needed for scaling rash 10/16/2021 No Stop Date Active metronidazole 0.75 % lotion RxNorm: 550935 Take Application Top ical QPM to face 10/16/2021 No Stop Date Active pregabalin 25 mg capsule RxNorm: 065435 Take 1 Capsule(s) Oral two times a day 10/16/2021 12/12/2021 Inactive levetiracetam 1,000 mg tablet RxNorm: 054619 Take 1 Tablet(s) O ral QPM 10/16/2021 10/16/2021 Inactive RX QTY LEFT NOT ENOU GH FOR 31 DAYS PLEASE NEW RX+REFILLS THANKS Keppra 500 mg tablet RxNorm: 679719 Take 1 Tablet(s) Or al QAM replaces 1000mg AM dose 10/16/2021 11/26/2021 Inactive polyethylene glycol 3350 17 gram/dose oral powder RxNorm: 87 6193 DRINK 17 GRAMS MIXED INTO 8 OZS. OF JUICE OR WATER TWICE DAILY 10/12/2021 10/12/2021 Inactive ketoconazole 2 % shampoo RxNorm: 573222 APPLY TO FACE TWICE PER WEE K 09/19/2021 09/19/2021 Inactive PrePlus 27 mg iron-1 mg tablet RxNorm: Take 1 Tablet(s) Oral Q D 09/12/2021 11/10/2021 Inactive RX QTY LEFT NOT ENOUGH FOR 9 3 DAYS PLEASE NEW RX+REFILLS THANKS Culturelle 10 billion cell capsule RxNorm: 256534 Take 1 Capsul e(s) Oral QD 09/10/2021 09/10/2021 Inactive Stimulant Laxative Plus 8.6 mg-50 mg tablet RxNorm: 452862 TAKE 2 TABLETS BY MOUTH TWICE DAILY 08/14/2021 10/15/2021 Inactive PLEASE NEW RX+ REFILLS FOR 31 DAYS THANKS pregabalin 50 mg capsule RxNorm: 267201 TAKE 1 CAPSULE BY MOUTH EACH MORNING 07/15/2021 10/15/2021 Inactive PLEASE NEW RX+REFILL S FOR 31 DAYS. THANKS pregabalin 25 mg capsule RxNorm: 609227 Take 1 Capsule(s) Oral HS 0 07/15/2021 10/15/2021 Inactive PLEASE NEW RX+REFILLS FOR 31 DAYS. THANKS levetiracetam 1,000 mg tablet RxNorm: 062380 Take 1 Tab let(s) Oral two times a day 06/11/2021 10/15/2021 Inactive RX QTY LEFT NOT ENOUGH FOR 31 DAYS PLEASE NEW RX+REFILLS THANKS loratadine 10 mg tablet RxNorm: 833434 TAKE 1 TABLET BY MOUTH DAILY 06/11/2021 06/11/2021 Inactive PLEASE NEW RX+REFILLS FOR 31 DAYS. THANKS Keppra 1,000 mg tablet RxNorm: 738029 Take 1 Tablet(s) Oral two times a day 05/08/2021 05/08/2021 Inactive Keppra 1,000 mg tablet RxNorm: 289618 Take 1 Tablet(s) Oral two times a day 05/08/2021 05/07/2021 Inactive ciclopirox 8 % topical solution RxNorm: 220818 Take Top ical QD to the affected area(s)preferably at bedtime or 8 hours before washing--to toenails 05/08/2021 10/15/2021 Inactive melatonin 5 mg capsule RxNorm: 442561 Take 1 Capsule(s) Oral QPM as needed for sleep 04/25/2021 10/21/2021 Inactive polyethylene glycol 3350 17 gram/dose oral powder RxNorm: 87 6193 DRINK 17 GRAMS MIXED INTO 8 OZS. OF JUICE OR WATER TWICE DAILY 04/24/2021 04/24/2021 Inactive Culturelle 10 billion cell capsule RxNorm: 668011 Take 1 Capsul e(s) Oral QD 04/16/2021 04/16/2021 Inactive pregabalin 25 mg capsule RxNorm: 105412 Take 1 Capsule(s) Oral HS 0 04/13/2021 04/13/2021 Inactive PLEASE NEW RX+REFILLS FOR 31 DAYS. THANKS pregabalin 50 mg capsule RxNorm: 736859 TAKE 1 CAPSULE BY MOUTH EACH MORNING 04/13/2021 04/13/2021 Inactive PLEASE NEW RX+REFILL S FOR 31 DAYS. THANKS fluticasone propionate 50 mcg/actuation nasal spray,suspensi on RxNorm: 3838092 SPRAY 1 SPRAY INTO EACH NOSTRIL TWICE DAILY 03/13/2021 03/13/2021 Inac tive polyethylene glycol 3350 17 gram/dose oral powder RxNorm: 87 6193 DRINK 17 GRAMS MIXED INTO 8 OZS. OF JUICE OR WATER TWICE DAILY 03/05/2021 04/03/2021 Inactive Gavilax 17 gram/dose oral powder RxNorm: 003737 DRINK 1 7 GRAMS MIXED INTO 8 OZS. OF JUICE OR WATER TWICE DAILY 02/27/2021 02/27/2021 Inactive Stimulant Laxative Plus 8.6 mg-50 mg tablet RxNorm: 763599 TAKE 2 TABLETS BY MOUTH TWICE DAILY 02/16/2021 02/16/2021 Inactive Tucks (witch juanita) 50 % topical pads RxNorm: 471426 Ta ke Application Topical four times a day as needed 02/05/2021 No Stop Date Active citalopram 40 mg tablet RxNorm: 059996 Take 1 Tablet(s) Oral QD 08/202003/25/2022 Inactive Culturelle 10 billion cell capsule RxNorm: 434769 Take 1 Capsul e(s) Oral QD 02/05/2021 04/16/2021 Inactive melatonin 5 mg capsule RxNorm: 761144 Take 1 Capsule(s) Oral QPM as needed for sleep 02/05/2021 02/05/2021 Inactive Keppra 750 mg tablet RxNorm: 274019 Take 1 Tablet(s) Or al two times a day replaces 500mg dose 02/05/2021 05/07/2021 Inactive Keppra 500 mg tablet RxNorm: 321579 Take 1 Tablet(s) Oral two t imes a day 01/17/2021 02/04/2021 Inactive Keppra 500 mg tablet RxNorm: 702776 Take 1 Tablet(s) Oral two t imes a day 01/17/2021 01/17/2021 Inactive Culturelle 10 billion cell capsule RxNorm: 507664 Take 1 Capsule(s) Oral QD as needed 01/16/2021 02/04/2021 Inactive levofloxacin 250 mg tablet RxNorm: 049800 Take 1 Tablet(s) Oral QD 01/04/2021 01/13/2021 Inactive cranberry 450 mg tablet RxNorm: Take 1 Tablet(s) Oral tw o times a day 12/14/2020 No Stop Date Active Gold Rosario Medicated 0.8 %-5 % topical powder RxNorm: 776692 Top ical as needed 12/14/2020 No Stop Date Active hydrocortisone 1 % topical cream RxNorm: 315563 Topical as needed 1 No Stop Date Active Gavilax 17 gram/dose oral powder RxNorm: 235965 Give 17 Gram(s) Oral two times a day in 8 ounces of juice/water 12/14/2020 10/15/2021 Inactive Culturelle 10 billion cell capsule RxNorm: 868224 Take 1 Capsule(s) Oral QD as needed 12/14/2020 01/16/2021 Inactive mirtazapine 15 mg tablet RxNorm: 096921 Take 1 Tablet(s ) Oral every night at bedtime 12/14/2020 03/25/2022 Inactive aripiprazole 10 mg tablet RxNorm: 583800 Take 1 Tablet(s) Oral QD 1 03/25/2022 Inactive pregabalin 25 mg capsule RxNorm: 544477 Take 1 Capsule(s) Oral HS 1 12/13/2020 Inactive loratadine 10 mg tablet RxNorm: 994734 TAKE 1 TABLET BY MOUTH DAILY 12/13/2020 12/13/2020 Inactive pregabalin 50 mg capsule RxNorm: 487030 TAKE 1 CAPSULE BY MOUTH EACH MORNING 12/13/2020 12/13/2020 Inactive Gavilax 17 gram/dose oral powder RxNorm: 359085 DRINK 1 7 GRAMS MIXED INTO 8 OZS. OF JUICE OR WATER TWICE DAILY 12/05/2020 12/13/2020 Inactive fluticasone propionate 50 mcg/actuation nasal spray,suspensi on RxNorm: 8507689 USE 1 SPRAY IN EACH NOSTRIL TWICE DAILY 11/16/2020 11/16/2020 Inactive pregabalin 25 mg capsule RxNorm: 690020 Take 1 Capsule(s) Oral HS 0 11/12/2020 11/12/2020 Inactive pregabalin 50 mg capsule RxNorm: 692459 TAKE 1 CAPSULE BY MOUTH EACH MORNING 11/12/2020 11/12/2020 Inactive Gavilax 17 gram/dose oral powder RxNorm: 718590 DRINK 1 7 GRAMS MIXED INTO 8 OZS. OF JUICE OR WATER TWICE DAILY 10/16/2020 11/14/2020 Inactive PrePlus 27 mg iron-1 mg tablet RxNorm: Take 1 Tablet(s) Oral Q D 10/12/2020 11/11/2020 Inactive pregabalin 50 mg capsule RxNorm: 146436 TAKE 1 CAPSULE BY MOUTH EACH MORNING 10/12/2020 10/12/2020 Inactive Stimulant Laxative Plus 8.6 mg-50 mg tablet RxNorm: 181627 TAKE 2 TABLETS BY MOUTH TWICE DAILY 10/12/2020 10/12/2020 Inactive pregabalin 25 mg capsule RxNorm: 389740 Take 1 Capsule(s) Oral HS 0 10/12/2020 10/12/2020 Inactive loratadine 10 mg tablet RxNorm: 474955 TAKE 1 TABLET BY MOUTH DAILY 09/12/2020 09/12/2020 Inactive ketoconazole 2 % shampoo RxNorm: 006812 1 Application T opical twice weekly to face 07/20/2020 07/20/2020 Inactive OUT OF REFILLS Senna-S 8.6 mg-50 mg tablet RxNorm: 412877 TAKE 2 TABLETS BY MO UTH TWICE DAILY 07/17/2020 07/17/2020 Inactive PLEASE NEW RX+REFILL S FOR 31 DAYS. THANKS Miralax 17 gram oral powder packet RxNorm: 325832 TAKE 17 GRAMS MIXED INTO 8 OZS. OF JUICE OR WATER TWICE DAILY 06/27/2020 12/13/2020 Inactive OUT OF REFILLS Lyrica 25 mg capsule RxNorm: 371230 TAKE 1 CAPSULE BY M OUTH DAILY AT BEDTIME Capsule(s) Oral 06/14/2020 06/14/2020 Inactive Lyrica 50 mg capsule RxNorm: 387000 Capsule(s) Oral GM E 1 CAPSULE BY MOUTH EACH MORNING 06/14/2020 06/14/2020 Inactive fluticasone propionate 50 mcg/actuation nasal spray,suspensi on RxNorm: 1400729 1 [place] Nasal two times a day 06/06/2020 06/06/2020 Inactive OUT OF REFILLS Plus 27 mg-1 mg tablet RxNorm: 1 Tablet(s) PO Q D 1 Tablet(s) Oral QD 05/10/2020 10/15/2021 Inactive Senna-S 8.6 mg-50 mg tablet RxNorm: 563965 TAKE 2 TABLETS BY MO UTH TWICE DAILY 04/10/2020 07/11/2020 Inactive PLEASE NEW RX+REFILL S FOR 31 DAYS. THANKS loratadine 10 mg tablet RxNorm: 165319 TAKE 1 TABLET BY MOUTH DAILY 04/10/2020 04/10/2020 Inactive PLEASE NEW RX+REFILLS FOR 31 DAYS. THANKS ketoconazole 2 % shampoo RxNorm: 506394 1 Application T opical twice weekly to face 03/22/2020 07/19/2020 Inactive OUT OF REFILLS Lyrica 50 mg capsule RxNorm: 689583 Capsule(s) Oral GM E 1 CAPSULE BY MOUTH EACH MORNING 02/10/2020 06/12/2020 Inactive Lyrica 25 mg capsule RxNorm: 353310 TAKE 1 CAPSULE BY OUTH DAILY AT BEDTIME Capsule(s) Oral 02/10/2020 06/08/2020 Inactive Senna-S 8.6 mg-50 mg tablet RxNorm: 738985 TAKE 2 TABLETS BY MO RUST TWICE DAILY 01/13/2020 04/09/2020 Inactive PLEASE NEW RX+REFILL S FOR 31 DAYS. THANKS Miralax 17 gram oral powder packet RxNorm: 244316 TAKE 17 GRAMS MIXED INTO 8 OZS. OF JUICE OR WATER TWICE DAILY 01/10/2020 06/26/2020 Inactive OUT OF REFILLS Miralax 17 gram oral powder packet RxNorm: 299045 TAKE 17 GRAMS MIXED INTO 8 OZS. OF JUICE OR WATER TWICE DAILY 12/15/2019 01/09/2020 Inactive OUT OF REFILLS ketoconazole 2 % shampoo RxNorm: 099962 APPLY TO FACE TWICE PER WEE K 12/09/2019 03/21/2020 Inactive OUT OF REFILLS Plus 27 mg-1 mg tablet RxNorm: 1 Tablet(s) PO Q D 1 Tablet(s) Oral QD 11/17/2019 05/09/2020 Inactive loratadine 10 mg tablet RxNorm: 963457 TAKE 1 TABLET BY MOUTH DAILY 11/17/2019 04/09/2020 Inactive PLEASE NEW RX+REFILLS FOR 31 DAYS. THANKS Lyrica 50 mg capsule RxNorm: 798032 Capsule(s) Oral GM E 1 CAPSULE BY MOUTH EACH MORNING 10/18/2019 02/08/2020 Inactive Lyrica 25 mg capsule RxNorm: 629712 TAKE 1 CAPSULE BY [facility] DAILY AT BEDTIME Capsule(s) Oral 10/18/2019 02/13/2020 Inactive Senna-S 8.6 mg-50 mg tablet RxNorm: 749577 TAKE 2 TABLETS BY [facility] TWICE DAILY 10/18/2019 01/12/2020 Inactive PLEASE NEW RX+REFILL S FOR 31 DAYS. THANKS Bactrim DS 800 mg-160 mg tablet RxNorm: 148159 1 Tablet(s) Oral two times a day 10/04/2019 10/10/2019 Inactive Vitamin C 500 mg tablet RxNorm: 350825 1 Tablet(s) Oral QD 09/22/1912/31/2021 Inactive citalopram 10 mg tablet RxNorm: 051816 1 Tablet(s) Oral QD 09/22/1902/04/2021 Inactive omeprazole 40 mg capsule,delayed release RxNorm: 231640 1 Capsule(s) Oral QD for reflux 08/16/2019 09/21/2019 Inactive Clindagel 1 % topical gel, once daily RxNorm: 682258 Ap plication Topical QPM to face rash or prn for rosacea 07/21/2019 12/13/2020 Inactive loratadine 10 mg tablet RxNorm: 613468 TAKE 1 TABLET BY MOUTH DAILY 07/19/2019 11/15/2019 Inactive PLEASE NEW RX+REFILLS FOR 31 DAYS. THANKS Senna-S 8.6 mg-50 mg tablet RxNorm: 933314 TAKE 2 TABLETS BY [facility] TWICE A DAY 07/19/2019 10/17/2019 Inactive PLEASE NEW RX+REFILL S FOR 31 DAYS. THANKS fluticasone propionate 50 mcg/actuation nasal spray,suspensi on RxNorm: 3858977 USE 1 SPRAY IN EACH NOSTRIL TWICE DAILY 07/01/2019 06/05/2020 Inactive OUT OF REFILLS Lyrica 50 mg capsule RxNorm: 378419 Capsule(s) Oral GM E 1 CAPSULE BY MOUTH EACH MORNING 06/16/2019 10/16/2019 Inactive Lyrica 25 mg capsule RxNorm: 611158 TAKE 1 CAPSULE BY [facility] DAILY AT BEDTIME Capsule(s) Oral 06/16/2019 10/12/2019 Inactive Plus 27 mg-1 mg tablet RxNorm: 1 Tablet(s) PO Q D 1 Tablet(s) Oral QD 2019 11/16/2019 Inactive triamcinolone acetonide 0.025 % topical cream RxNorm: 247051 4 1 Application Topical two times a day apply thin layer to cheeks 05/03/2019 0 Inactive Lyrica 50 mg capsule RxNorm: 388608 Capsule(s) TAKE 1 C APSULE BY MOUTH EACH MORNING 02/22/2019 06/25/2019 Inactive Lyrica 25 mg capsule RxNorm: 688384 TAKE 1 CAPSULE BY MOUTH DOMINICK LY AT BEDTIME 02/22/2019 06/21/2019 Inactive loratadine 10 mg tablet RxNorm: 677324 TAKE 1 TABLET BY MOUTH DAILY 01/21/2019 03/23/2019 Inactive PLEASE NEW RX+REFILLS FOR 31 DAYS. THANKS Senna-S 8.6 mg-50 mg tablet RxNorm: 835142 TAKE 2 TABLETS BY MO UT TWICE A DAY 01/21/2019 07/18/2019 Inactive PLEASE NEW RX+REFILL S FOR 31 DAYS. THANKS Macrobid 100 mg capsule RxNorm: 660530 1 Capsule(s) Oral two ti mes a day 01/11/2019 01/10/2019 Inactive Macrobid 100 mg capsule RxNorm: 176315 1 Capsule(s) Oral two ti mes a day 01/11/2019 01/21/2019 Inactive Cipro 250 mg tablet RxNorm: 294796 1 Tablet(s) Oral two times a day 01/05/2019 01/12/2019 Inactive Senna-S 8.6 mg-50 mg tablet RxNorm: 233064 TAKE 2 TABLETS BY MO UT TWICE A DAY 12/21/2018 01/20/2019 Inactive NEED A NEW RX+REFILL S PLEASE FOR 31 DAYS. THANKS Plus 27 mg-1 mg tablet RxNorm: 1 Tablet(s) PO QD 11/0205/20/2019 Inactive doxycycline hyclate 100 mg capsule RxNorm: 6797462 1 Cap edison(s) Oral two times a day 11/23/2018 11/30/2018 Inactive doxycycline hyclate 100 mg capsule RxNorm: 6481410 1 Cap edison(s) Oral two times a day 11/23/2018 11/22/2018 Inactive loratadine 10 mg tablet RxNorm: 915807 1 Tablet(s) PO QD 11/23/2018 1 03/22/2018 Inactive doxycycline hyclate 100 mg capsule RxNorm: 0026158 1 Cap edison(s) Oral two times a day 11/23/2018 11/22/2018 Inactive Macrobid 100 mg capsule RxNorm: 931333 1 Capsule(s) PO BID 11/05/19 19 11/10/2018 Inactive Macrobid 100 mg capsule RxNorm: 085382 1 Capsule(s) PO BID 11/05/19 19 11/03/2018 Inactive Bactrim DS 800 mg-160 mg tablet RxNorm: 414838 1 Tablet(s) PO BID 0 10/29/2018 10/28/2018 Inactive Bactrim DS 800 mg-160 mg tablet RxNorm: 728848 1 Tablet(s) PO BID 0 10/29/2018 11/03/2018 Inactive Miralax 17 gram oral powder packet RxNorm: 582457 TAKE 17 GRAMS MIXED INTO 8 OZS. OF JUICE OR WATER TWICE DAILY 10/15/2018 01/15/2019 Inactive OUT OF REFILLS fluconazole 100 mg tablet RxNorm: 393346 1 Tablet(s) PO QD 10/13/19 19 10/18/2018 Inactive clotrimazole-betamethasone 1 %-0.05 % topical cream RxNorm: 519225 Application TOP BID to foot rash for 1-2 weeks 10/12/2018 09/21/2019 Inactive fluticasone propionate 50 mcg/actuation nasal spray,suspensi on RxNorm: 3754349 USE 1 SPRAY IN EACH NOSTRIL TWICE DAILY 09/01/2018 12/29/2018 Inactive Senna-S 8.6 mg-50 mg tablet RxNorm: 037165 TAKE 2 TABLETS BY [facility] TWICE A DAY 08/19/2018 12/20/2018 Inactive nystatin 100,000 unit/gram topical cream RxNorm: 484026 1 Gram( s) TOP BID 08/10/2018 08/09/2018 Inactive acyclovir 800 mg tablet RxNorm: 642429 1 Tablet(s) PO 5x day 201808/09/2018 Inactive nystatin 100,000 unit/gram topical cream RxNorm: 113548 1 Gram( s) TOP BID 08/10/2018 08/19/2018 Inactive acyclovir 800 mg tablet RxNorm: 766916 1 Tablet(s) PO 5x day 201808/16/2018 Inactive Miralax 17 gram oral powder packet RxNorm: 824097 TAKE 17 GRAMS MIXED INTO 8 OZS. OF JUICE OR WATER TWICE DAILY 07/31/2018 10/14/2018 Inactive Lyrica 25 mg capsule RxNorm: 362159 TAKE 1 CAPSULE BY MOUTH DOMINICK LY AT BEDTIME 07/16/2018 08/14/2018 Inactive nystatin 100,000 unit/gram topical powder RxNorm: 593073 1 Application TOP BID to upper thighs for 14 days 06/29/2018 07/12/2018 Inactive nystatin 100,000 unit/gram topical powder RxNorm: 395708 1 Application TOP BID to upper thighs for 14 days 06/29/2018 06/28/2018 Inactive Plus 27 mg-1 mg tablet RxNorm: 1 Tablet(s) PO QD 06/0111/22/2018 Inactive loratadine 10 mg tablet RxNorm: 163278 1 Tablet(s) PO QD 06/16/2018 0 11/22/2018 Inactive Miralax 17 gram oral powder packet RxNorm: 763359 TAKE 17 GRAMS MIXED INTO 8 OZS. OF JUICE OR WATER TWICE DAILY 05/19/2018 07/30/2018 Inactive ketoconazole 2 % shampoo RxNorm: 580035 APPLY TO FACE TWICE PER WEE K 05/04/2018 11/29/2018 Inactive Macrobid 100 mg capsule RxNorm: 026739 1 Capsule(s) PO BID 04/17/1904/16/2018 Inactive Macrobid 100 mg capsule RxNorm: 885326 1 Capsule(s) PO BID 04/17/1904/26/2018 Inactive Zithromax Z-Vu 250 mg tablet RxNorm: 510278 Tablet(s) PO As Di rected 02/26/2018 03/02/2018 Inactive Tessalon Perles 100 mg capsule RxNorm: 614950 1 Capsule (s) PO TID as needed for cough 02/26/2018 01/04/2019 Inactive Senna-S 8.6 mg-50 mg tablet RxNorm: 832439 2 Tablet(s) PO BID 02/1608/14/2018 Inactive Miralax 17 gram oral powder packet RxNorm: 849937 TAKE 17 GRAMS MIXED INTO 8 OZS. OF JUICE OR WATER TWICE DAILY 01/08/2018 04/10/2018 Inactive Miralax 17 gram oral powder packet RxNorm: 386097 1 Tab let(s) PO BID TAKE 17 GRAMS MIXED INTO 8 OZS. OF JUICE OR WATER TWICE DAILY 11/17/20172017 Inactive Miralax 17 gram oral powder packet RxNorm: 946287 1 Tab let(s) PO QD TAKE 17 GRAMS MIXED INTO 8 OZS. OF JUICE OR WATER once DAILY 11/04/2017 021 Inactive polymyxin B sulfate 10,000 unit-trimethoprim 1 mg/mL eye bandar ps RxNorm: 487970 2 Drop(s) ophthalmic (eye) Q4H while awake 10/29/2017 11/04/2017 Inactiv e Lyrica 25 mg capsule RxNorm: 866014 TAKE 1 CAPSULE BY MOUTH EAC H EVENING 10/20/2017 07/16/2018 Inactive Senna-S 8.6 mg-50 mg tablet RxNorm: 990062 2 Tablet(s) PO BID 10/2002/15/2018 Inactive Lyrica 50 mg capsule RxNorm: 635310 TAKE 1 CAPSULE BY MOUTH EAC H MORNING 10/20/2017 01/20/2018 Inactive loratadine 10 mg tablet RxNorm: 744833 Tablet(s) TAKE 1 TABLET BY MOUTH DAILY 10/20/2017 06/16/2018 Inactive Plus 27 mg-1 mg tablet RxNorm: Tablet(s) TAKE 1 TABLET BY MOUTH DAILY 10/20/2017 06/16/2018 Inactive nystatin 100,000 unit/gram topical cream RxNorm: 750234 Gram(s) TOP BID for 2 weeks 09/16/2017 09/21/2019 Inactive loratadine 10 mg tablet RxNorm: 211747 TAKE 1 TABLET BY MOUTH DAILY 08/18/2017 10/20/2017 Inactive Plus 27 mg-1 mg tablet RxNorm: TAKE 1 TABLET BY MOUTH DAILY 08/18/2017 10/20/2017 Inactive Miralax 17 gram oral powder packet RxNorm: 104864 1 Tab let(s) PO BID TAKE 17 GRAMS MIXED INTO 8 OZS. OF JUICE OR WATER TWICE DAILY 06/13/20172017 Inactive Miralax 17 gram oral powder packet RxNorm: 233921 1 Tab let(s) PO BID TAKE 17 GRAMS MIXED INTO 8 OZS. OF JUICE OR WATER TWICE DAILY 06/13/20172020 Inactive doxycycline hyclate 100 mg capsule RxNorm: 1268196 1 Capsule(s) PO BID 06/06/2017 06/05/2017 Inactive Cipro 250 mg tablet RxNorm: 884868 1 Tablet(s) PO BID 06/06/201706/01 Inactive Cipro 250 mg tablet RxNorm: 979766 1 Tablet(s) PO BID 06/06/201707/2017 Inactive doxycycline hyclate 100 mg capsule RxNorm: 8614666 1 Capsule(s) PO BID 06/06/2017 06/12/2017 Inactive Senna-S 8.6 mg-50 mg tablet RxNorm: 357395 2 Tablet(s) PO BID 05/1910/20/2017 Inactive Miralax 17 gram oral powder packet RxNorm: 318312 1 Tab let(s) PO BID TAKE 17 GRAMS MIXED INTO 8 OZS. OF JUICE OR WATER TWICE DAILY 01/06/20172017 Inactive Senna-S 8.6 mg-50 mg tablet RxNorm: 087415 2 Tablet(s) PO BID 12/1105/19/2017 Inactive Abilify 5 mg tablet RxNorm: 997027 1 Tablet(s) PO QHS 11/21/201612/01 Inactive docusate sodium 100 mg capsule RxNorm: 1915709 1 Capsule(s) PO BID 09/17/2016 09/21/2019 Inactive [AttnRPh: Saving apply/adjud icate RxGRP:SG20 RxBIN:[id number] RxPCN: ID#:[id number]] loratadine 10 mg tablet RxNorm: 615094 1 Tablet(s) PO QD 09/17/2016 0 08/17/2017 Inactive [AttnRPh: Saving apply/adjudicate RxGRP: SG20 RxBIN:[id number] RxPCN: ID#:[id number]] Plus 27 mg-1 mg tablet RxNorm: 1 Tablet(s) PO QD 08/3108/17/2017 Inactive [AttnRPh: Saving apply/adjud icate RxGRP:SG20 RxBIN:[id number] RxPCN:HT ID#:[id number]] Calcium + D 600 mg (1,500 mg)-200 unit tablet RxNorm: 100418 1 Tablet(s) PO QD 09/17/2016 09/21/2019 Inactive ketoconazole 2 % shampoo RxNorm: 352895 APPLY TO FACE TWICE PER WEE K 08/26/2016 02/21/2017 Inactive fluticasone propionate 50 mcg/actuation nasal spray,suspensi on RxNorm: 9947884 [place] USE 1 SPRAY IN EACH NOSTRIL TWICE A DAY 07/30/2016 01/25/2017 In active Miralax 17 gram oral powder packet RxNorm: 299583 TAKE 17 GRAMS MIXED INTO 8 OZS. OF JUICE OR WATER TWICE DAILY 07/30/2016 01/06/2017 Inactive Senna-S 8.6 mg-50 mg tablet RxNorm: 539060 2 Tablet(s) PO BID 07/1512/10/2016 Inactive Lyrica 50 mg capsule RxNorm: 381094 TAKE 1 CAPSULE BY MOUTH EAC H MORNING 07/11/2016 08/09/2016 Inactive Miralax 17 gram oral powder packet RxNorm: 978192 TAKE 17 GRAMS MIXED INTO 8 OZS. OF JUICE OR WATER TWICE DAILY 07/04/2016 07/29/2016 Inactive Miralax 17 gram oral powder packet RxNorm: 934482 TAKE 17 GRAMS MIXED INTO 8 OZS. OF JUICE OR WATER TWICE DAILY 07/04/2016 08/03/2016 Inactive Miralax 17 gram oral powder packet RxNorm: 562244 TAKE 17 GRAMS MIXED INTO 8 OZS. OF JUICE OR WATER TWICE DAILY 06/13/2016 07/03/2016 Inactive benztropine 2 mg tablet RxNorm: 616143 1 Tablet(s) PO BID 04/15/2016 09/21/2019 Inactive ketoconazole 2 % shampoo RxNorm: 849881 APPLY TO FACE TWICE PER WEE K 04/01/2016 08/25/2016 Inactive ketoconazole 2 % shampoo RxNorm: 037774 APPLY TO FACE TWICE PER WEE K 04/01/2016 12/13/2020 Inactive Miralax 17 gram oral powder packet RxNorm: 074126 TAKE 17 GRAMS MIXED INTO 8 OZS. OF JUICE OR WATER TWICE DAILY 03/29/2016 06/12/2016 Inactive calcium carbonate 600 mg calcium (1,500 mg)-vit D3 1,0 00 unit capsule RxNorm: 8464849 1 Capsule(s) PO QD 03/15/2016 09/17/2016 Inactive fluticasone 50 mcg/actuation nasal spray,suspension RxNorm: 5426886 [place] USE 1 SPRAY IN EACH NOSTRIL TWICE A DAY 03/04/2016 07/29/2016 Inactive Miralax 17 gram oral powder packet RxNorm: 825787 1 Uni t Dose PO BID in 6-8oz water daily 02/28/2016 03/28/2016 Inactive attnrph: saving apply/adjudicate rxgrp:sg20 rxbin:[id number] rxpcn: id#:[id number] Senna-S 8.6 mg-50 mg tablet RxNorm: 080720 TAKE TWO TABLETS ORA LLY TWICE A DAY 01/18/2016 07/15/2016 Inactive ketoconazole 2 % shampoo RxNorm: 412434 APPLY TO FACE TWICE PER WEE K 12/04/2015 03/31/2016 Inactive benztropine 2 mg tablet RxNorm: 253782 1 Tablet(s) PO BID 11/20/2015 04/14/2016 Inactive cefuroxime axetil 250 mg tablet RxNorm: 586024 1 Tablet(s) PO BID 0 11/13/2015 11/19/2015 Inactive cefuroxime axetil 250 mg tablet RxNorm: 379335 1 Tablet(s) PO BID 0 11/13/2015 11/12/2015 Inactive ketoconazole 2 % shampoo RxNorm: 846946 APPLY TO FACE TWICE PER WEE K 11/08/2015 12/03/2015 Inactive loratadine 10 mg tablet RxNorm: 870521 1 Tablet(s) PO QD 10/16/2015 0 09/16/2016 Inactive [AttnRPh: Saving apply/adjudicate RxGRP: SG20 RxBIN:[id number] RxPCN:HT ID#:[id number]] docusate sodium 100 mg capsule RxNorm: 2761584 1 Capsule(s) PO BID 10/16/2015 09/17/2016 Inactive [AttnRPh: Saving apply/adjud icate RxGRP:SG20 RxBIN:[id number] RxPCN:HT ID#:[id number]] Plus 27 mg-1 mg tablet RxNorm: 1 Tablet(s) PO QD 10/0109/16/2016 Inactive [AttnRPh: Saving apply/adjud icate RxGRP:SG20 RxBIN:469114 RxPCN:HT ID#:[id number]] Miralax 17 gram oral powder packet RxNorm: 724840 1 Uni t Dose PO BID in 6-8oz water daily 09/29/2015 09/28/2015 Inactive attnrph: saving apply/adjudicate rxgrp:sg20 rxbin:[id number] rxpcn: id#:[id number] fluticasone 50 mcg/actuation nasal spray,suspension RxNorm: 4835924 USE 1 SPRAY IN EACH NOSTRIL TWICE A DAY 09/12/2015 03/04/2016 Inactive benztropine 2 mg tablet RxNorm: 144448 1 Tablet(s) PO BID 09/11/2015 11/20/2015 Inactive benztropine 2 mg tablet RxNorm: 044875 1 Tablet(s) PO BID 07/25/2015 09/10/2015 Inactive ketoconazole 2 % shampoo RxNorm: 282836 APPLY TO FACE TWICE PER WEE K 07/24/2015 11/07/2015 Inactive Senna-S 8.6 mg-50 mg tablet RxNorm: 017059 TAKE TWO TABLETS ORA LLY TWICE A DAY 07/13/2015 01/14/2016 Inactive ketoconazole 2 % shampoo RxNorm: 191522 APPLY TO FACE TWICE PER WEE K 06/30/2015 07/23/2015 Inactive Miralax 17 gram oral powder packet RxNorm: 423707 1 Uni t Dose PO BID in 6-8oz water daily 06/19/2015 09/29/2015 Inactive attnrph: saving apply/adjudicate rxgrp:sg20 rxbin:[id number] rxpcn:ht id#:[id number] fluticasone 50 mcg/actuation nasal spray,suspension RxNorm: 476451 1 [place] NASAL BID 05/29/2015 09/11/2015 Inactive Opcon-A 0.48967 %-0.315 % eye drops RxNorm: 3215588 2 Drop(s) OP H PRN as needed 04/26/2015 04/25/2015 Inactive Culturelle 10 billion cell capsule RxNorm: 670319 1 Capsule(s) PO QD prn 04/26/2015 09/21/2019 Inactive calcium carbonate-vitamin D3 600 mg (1,500 mg)-1,000 u nit capsule RxNorm: 7121700 1 Capsule(s) PO QD 04/24/2015 07/06/2015 Inactive Senna-S 8.6 mg-50 mg tablet RxNorm: 986554 TAKE TWO TABLETS ORA LLY TWICE A DAY 04/24/2015 07/12/2015 Inactive ketoconazole 2 % shampoo RxNorm: 468079 1 Application TOP twice weekly to face 04/11/2015 06/29/2015 Inactive Senna-S 8.6 mg-50 mg tablet RxNorm: 064551 2 Tablet(s) PO QD TAKE 2 TABLETS ORALLY TWICE A DAY 01/20/2015 04/23/2015 Inactive out of refill s Miralax 17 gram oral powder packet RxNorm: 289744 1 Uni t Dose PO BID in 6-8oz water daily 11/21/2014 12/13/2020 Inactive attnrph: saving apply/adjudicate rxgrp:sg20 rxbin:678772 rxpcn: id#:[id number] Flonase Allergy Relief 50 mcg/actuation nasal spray,suspensi on RxNorm: 2 [place] NASAL QHS 11/21/2014 07/22/2016 Inactive azithromycin 250 mg tablet RxNorm: 051247 2 Tablet(s) P O on day one, then one tablet on days 2 - 5 11/18/2014 12/20/2014 Inactive azithromycin 250 mg tablet RxNorm: 284998 2 Tablet(s) P O on day one, then one tablet on days 2 - 5 11/17/2014 11/17/2014 Inactive fluticasone 50 mcg/actuation nasal spray,suspension RxNorm: 063033 1 [place] NASAL BID 11/09/2014 11/08/2014 Inactive Plus 27 mg-1 mg tablet RxNorm: 1 Tablet(s) PO QD 10/0110/13/2015 Inactive [AttnRPh: Saving apply/adjud icate RxGRP:SG20 RxBIN:[id number] RxPCN:HT ID#:[id number]] Plus 27 mg-1 mg tablet RxNorm: 1 Tablet(s) PO QD 09/0110/18/2014 Inactive [AttnRPh: Saving apply/adjud icate RxGRP:SG20 RxBIN:[id number] RxPCN:HT ID#:[id number]] nystatin-triamcinolone 100,000 unit/g-0.1 % topical cream RxNorm : 2599962 BID 09/26/2014 10/09/2014 Inactive docusate sodium 100 mg capsule RxNorm: 2708782 1 Capsule(s) PO BID 09/26/2014 10/15/2015 Inactive [AttnRPh: Saving apply/adjud icate RxGRP:SG20 RxBIN:[id number] RxPCN:HT ID#:[id number]] trihexyphenidyl 2 mg tablet RxNorm: 656116 1 Tablet(s) PO BID 09/2612/20/2014 Inactive Miralax 17 gram oral powder packet RxNorm: 795663 1 Uni t Dose PO BID in 6-8oz water daily 09/26/2014 11/20/2014 Inactive attnrph: saving apply/adjudicate rxgrp:sg20 rxbin:457145 rxpcn:ht id#:[id number] loratadine 10 mg tablet RxNorm: 869973 Tablet(s) 1 Tabl et(s) PO QD 1 Tablet(s) PO QD 09/26/2014 10/16/2015 Inactive [AttnRPh: Saving apply/adjudicate RxGRP:SG20 RxBIN:622339 RxPCN:HT ID#:[id number]] ketoconazole 2 % shampoo RxNorm: 170526 1 BIW lather and rinse after 10 min 09/26/2014 04/10/2015 Inactive Calcium + D 600 mg (1,500 mg)-200 unit tablet RxNorm: 306790 1 Tablet(s) PO QD 09/26/2014 09/19/2015 Inactive Senna-S 8.6 mg-50 mg tablet RxNorm: 633137 2 Tablet(s) PO QD TAKE 2 TABLETS ORALLY TWICE A DAY 09/26/2014 01/19/2015 Inactive out of refill s Senna-S 8.6 mg-50 mg tablet RxNorm: 606643 2 Tablet(s) PO QD TAKE 2 TABLETS ORALLY TWICE A DAY 07/20/2014 09/25/2014 Inactive out of refill s [AttnRPh: Saving apply/adjudicate RxGRP:SG20 RxBIN:[id number] RxPCN: ID#:[id number]] loratadine 10 mg tablet RxNorm: 942930 1 Tablet(s) PO QD 1 Tabl et(s) PO QD 04/25/2014 09/25/2014 Inactive [AttnRPh: Saving deyanira ly/adjudicate RxGRP:SG20 RxBIN:475703 RxPCN: ID#:[id number]] docusate sodium 100 mg capsule RxNorm: 1382956 1 Capsule(s) PO BID 04/04/2014 09/25/2014 Inactive [AttnRPh: Saving apply/adjud icate RxGRP:SG20 RxBIN:501262 RxPCN: ID#:[id number]] Senna-S 8.6 mg-50 mg tablet RxNorm: 564913 2 Tablet(s) PO QD TAKE 2 TABLETS ORALLY TWICE A DAY 03/15/2014 07/19/2014 Inactive OUT OF REFILL S [AttnRPh: Saving apply/adjudicate RxGRP:SG20 RxBIN:091255 RxPCN: ID#:[id number]] nystatin 100,000 unit/gram topical cream RxNorm: 248479 Applica tion TOP BID 03/15/2014 07/22/2016 Inactive [AttnRPh: Saving deyanira ly/adjudicate RxGRP:SG20 RxBIN:970754 RxPCN: ID#:[id number]] Miralax 17 gram oral powder packet RxNorm: 284390 1 Uni t Dose PO BID in 6-8oz water daily 03/15/2014 09/25/2014 Inactive AttnRPh: Saving apply/adjudicate RxGRP:SG20 RxBIN:[id number] RxPCN:HT ID#:[id number] [AttnRPh: Saving apply/adjudicate RxGRP:SG20 RxBIN:924773 RxPCN:HT ID#:[id number]] Senna-S 8.6 mg-50 mg tablet RxNorm: 763584 2 Tablet(s) PO QD TAKE 2 TABLETS ORALLY TWICE A DAY 03/09/2014 03/14/2014 Inactive OUT OF REFILL S loratadine 10 mg tablet RxNorm: 270521 1 Tablet(s) PO QD 1 Tabl et(s) PO QD 10/28/2013 04/24/2014 Inactive [AttnRPh: Saving deyanira ly/adjudicate RxGRP:SG20 RxBIN:693231 RxPCN:HT ID#:[id number]] docusate sodium 100 mg capsule RxNorm: 7718986 1 Capsule(s) PO BID 10/21/2013 04/03/2014 Inactive [AttnRPh: Saving apply/adjud icate RxGRP:SG20 RxBIN:071091 RxPCN:HT ID#:[id number]] Plus 27 mg-1 mg tablet RxNorm: 1 Tablet(s) PO QD 06/201309/25/2014 Inactive [AttnRPh: Saving apply/adjud icate RxGRP:SG20 RxBIN:833843 RxPCN: ID#:[id number]] Calcium + D 600 mg (1,500)-200 unit tablet RxNorm: 033609 1 Tab let(s) PO QD 09/21/2013 09/25/2014 Inactive loratadine 10 mg tablet RxNorm: 151710 1 Tablet(s) PO QD 1 Tabl et(s) PO QD 07/06/2013 10/28/2013 Inactive docusate sodium 100 mg capsule RxNorm: 4147833 1 Capsule(s) PO BID 04/12/2013 10/21/2013 Inactive Senna-S 8.6 mg-50 mg tablet RxNorm: 164692 2 Tablet(s) PO BID 01/0503/09/2014 Inactive loratadine 10 mg tablet RxNorm: 805408 1 Tablet(s) PO QD 01/04/2013 0 07/06/2013 Inactive Senna-S 8.6 mg-50 mg tablet RxNorm: 044703 2 Tablet(s) PO BID 01/0401/04/2013 Inactive loratadine 10 mg tablet RxNorm: 3998806 1 Tablet(s) PO QD 10/05/2012 01/04/2013 Inactive Senna-S 8.6 mg-50 mg tablet RxNorm: 702666 2 Tablet(s) PO BID 10/0501/04/2013 Inactive Calcium + D 600 mg (1,500)-200 unit tablet RxNorm: 520343 1 Tab let(s) PO QD 09/11/2012 09/21/2013 Inactive docusate sodium 100 mg capsule RxNorm: 7998736 1 Capsule(s) PO BID 09/10/2012 03/08/2013 Inactive Plus 27 mg-1 mg tablet RxNorm: 1 Tablet(s) PO QD 08/3109/04/2013 Inactive Senna-S 8.6 mg-50 mg tablet RxNorm: 279512 2 Tablet(s) PO BID 09/1010/04/2012 Inactive loratadine 10 mg tablet RxNorm: 7933499 1 Tablet(s) PO QD 09/10/2012 09/09/2012 Active divalproex ER 500 mg tablet,extended release 24 hr RxNorm: 1 890528 1 Tablet(s) PO BID 09/10/2012 09/21/2019 Inactive Nasonex 50 mcg/actuation [place] RxNorm: 063660 1 [place] NASAL BID 07/22/2016 Inactive Depakote 500 mg tablet,delayed release RxNorm: 4875352 1 Tablet( s) PO BID 08/10/2012 12/20/2014 Inactive loratadine 10 mg tablet RxNorm: 5997957 1 Tablet(s) PO QD 06/29/2012 09/09/2012 Inactive docusate sodium 100 mg capsule RxNorm: 9521838 1 Capsule(s) PO BID 06/29/2012 09/09/2012 Inactive divalproex 250 mg tablet,delayed release RxNorm: 5703149 1 Table t(s) PO QPM 06/08/2012 09/21/2019 Inactive Depakote 500 mg tablet,delayed release RxNorm: 3607651 1 Tablet( s) PO BID 04/13/2012 07/11/2012 Inactive Senna-S 8.6 mg-50 mg tablet RxNorm: 849123 2 Tablet(s) PO BID 03/1604/14/2012 Inactive Plus 27 mg-1 mg tablet RxNorm: 1 Tablet(s) PO QD 01/3109/09/2012 Inactive divalproex ER 500 mg tablet,extended release 24 hr RxNorm: 1 338781 1 Tablet(s) PO BID 02/10/2012 04/09/2012 Inactive divalproex 250 mg tablet,delayed release RxNorm: 4391281 1 Table t(s) PO QPM 09/30/2011 04/26/2012 Inactive Nasonex 50 mcg/actuation [place] RxNorm: 0441213 1 [place] NASAL BID 03/13/2012 Inactive Depakote 500 mg tablet,delayed release RxNorm: 3916659 1 Tablet( s) PO BID 08/14/2011 02/09/2012 Inactive divalproex ER 500 mg tablet,extended release 24 hr RxNorm: 1 126496 1 Tablet(s) PO BID 06/17/2011 08/15/2011 Inactive Benadryl 25 mg Cap RxNorm: 0056787 1 Capsule(s) PO QHS as needed for sinus drainage. May cause drowsiness. 05/23/2011 11/29/2013 Inactive divalproex ER 500 mg 24 hr Tab RxNorm: 6205244 1 Tablet(s) PO BID 0 04/15/2011 06/13/2011 Inactive Nasonex 50 mcg/actuation [place] RxNorm: 9165297 1 [place] NASAL BID 09/15/2011 Inactive Amitiza 24 mcg Cap RxNorm: 005319 1 Capsule(s) PO BID 03/19/201105/01 Inactive Sennalax-S 8.6 mg-50 mg Tab RxNorm: 667230 2 Tablet(s) PO BID 03/1907/16/2011 Inactive Nasonex 50 mcg/Actuation [place] RxNorm: 7893875 1 [place] NASAL BID 03/24/2011 Inactive divalproex 250 mg Tab, Delayed Release RxNorm: 2767550 1 Tablet( s) PO QPM 02/27/2011 09/24/2011 Inactive Plus 27 mg-1 mg tablet RxNorm: 1 Tablet(s) PO QD 02/0105/20/2011 Inactive divalproex ER 500 mg 24 hr Tab RxNorm: 9405017 1 Tablet(s) PO BID 1 04/15/2010 04/12/2011 Inactive Amitiza 24 mcg Cap RxNorm: 238599 1 Capsule(s) PO BID 01/14/201103/03 Inactive Nasonex 50 mcg/Actuation [place] RxNorm: 6001174 1 [place] NASAL BID 03/16/2011 Inactive Depakote 500 mg Tab RxNorm: 1919599 1 Tablet(s) PO BID 09/18/2010 Inactive divalproex 250 mg Tab, Delayed Release RxNorm: 7539918 1 Tablet( s) PO QPM 07/31/2010 02/25/2011 Inactive Amitiza 24 mcg Cap RxNorm: 366139 1 Capsule(s) PO BID 06/19/201001/01 Inactive divalproex ER 500 mg 24 hr Tab RxNorm: 8958795 1 Tablet(s) PO BID 0 03/27/2010 09/22/2010 Inactive Amitiza 24 mcg Cap RxNorm: 022593 1 Capsule(s) PO BID 03/20/201006/01 Inactive Sennalax-S 8.6 mg-50 mg Tab RxNorm: 204889 2 Tablet(s) PO BID 03/2007/17/2010 Inactive divalproex 250 mg Tab, Delayed Release RxNorm: 1483085 1 Tablet( s) PO QPM 03/06/2010 07/30/2010 Inactive Amitiza 24 mcg Cap RxNorm: 040496 1 Capsule(s) PO BID 12/27/200903/03 Inactive Abilify 5 mg Tab RxNorm: 151417 1 Tablet(s) PO QD 12/13/2009 01/01/20 10 Inactive Abilify 5 mg Tab RxNorm: 870733 1 Tablet(s) PO QD 11/23/2009 12/13/19 10 Inactive Nasonex 50 mcg/Actuation [place] RxNorm: 5247471 1 [place] NASAL BID 11/06/2009 Active Divalproex 250 mg Tab, Delayed Release RxNorm: 8497763 1 Tablet( s) PO QHS 10/26/2009 12/31/2009 Inactive Divalproex 250 mg Tab, Delayed Release RxNorm: 2314263 1 Tablet( s) PO QHS 10/26/2009 10/25/2009 Inactive Fluoxetine 10 mg Tab RxNorm: 630731 1 Tablet(s) PO QD 10/26/200912/03 Inactive Abilify 5 mg Tab RxNorm: 943609 1 Tablet(s) PO QD 10/24/2009 11/23/19 Inactive Amitiza 24 mcg Cap RxNorm: 830829 1 Capsule(s) PO BID 09/28/200910/02 Inactive divalproex SR 500 mg 24 hr Tab RxNorm: 0440328 1 Tablet(s) PO BID 0 08/31/2009 10/29/2009 Inactive Divalproex SR 500 mg 24 hr Tab RxNorm: 8457920 1 Tablet(s) PO BID 0 08/23/2009 08/30/2009 Inactive Sennalax-S 8.6 mg-50 mg Tab RxNorm: 524632 2 Tablet(s) PO BID 08/1709/15/2009 Inactive Divalproex SR 500 mg 24 hr Tab RxNorm: 1849918 1 Tablet(s) PO BID 0 07/20/2009 08/18/2009 Inactive Clindamycin 300 mg Cap RxNorm: 951812 1 Capsule(s) PO BID 06/23/2009 06/29/2009 Inactive Tylenol Extra Strength 500 mg Tab RxNorm: 893727 Tablet(s) PO PRN Active Pepto-Bismol 262 mg chewable tablet RxNorm: 280537 Tablet(s) PO as needed 07/07/2015 Active Robitussin Cough-Congestion 100 mg/5 mL syrup RxNorm: 676884 Milliliter(s) PO as needed 07/07/2015 Active alprazolam 1 mg tablet RxNorm: 100130 1 Tablet(s) PO QD as needed 0 07/07/2015 12/13/2020 Inactive Opcon-A 0.86279 %-0.315 % Eye Drops RxNorm: 3456523 Drop(s) OPH PRN 04/26/2015 04/25/2015 Inactive Amitiza 24 mcg Cap RxNorm: 765131 1 Capsule(s) PO BID 09/28/200909/01 Inactive Depakote 250 mg Tab RxNorm: 3333647 1 Tablet(s) PO QPM 01/01/2010 Inactive fluticasone 50 mcg/actuation nasal spray,suspension RxNorm: 313240 1 [place] NASAL BID 11/09/2014 11/08/2014 Inactive Mucinex 600 mg tablet, extended release RxNorm: 113017 Tablet(s ) PO as needed 07/07/2015 12/13/2020 Inactive Depakote 500 mg Tab RxNorm: 1424184 1 Tablet(s) PO BID 09/18/2010 Inactive Ketoconazole 2 % Shampoo RxNorm: 794892 1 TOP PRN 09/26/2014 015 Inactive alfalfa 650 mg tablet RxNorm: 236020 1 Tablet(s) PO QID 09/22/2019 Inactive Culturelle 10 billion cell capsule RxNorm: 165138 Capsule(s) PO as needed 09/22/2019 09/21/2019 Inactive bethanechol chloride 50 mg tablet RxNorm: 706416 1 Tablet(s) PO AC & HS 09/22/2019 09/21/2019 Inactive loratadine 10 mg tablet RxNorm: 4645666 1 Tablet(s) PO QD 06/29/2012 06/28/2012 Inactive Senna Concentrate Oral RxNorm: Oral 03/20/2010 03/20/2010 Inact dalia desmopressin 0.2 mg tablet RxNorm: 476104 3 Tablet(s) PO QHS 201707/13/2017 Inactive Fluoxetine 10 mg Tab RxNorm: 737333 1 Tablet(s) PO QD 10/26/200910/02 Inactive azithromycin 250 mg Tab RxNorm: 417072 Tablet(s) PO gm e 2 tablets on day one and one tablet on days 2-5. 10/01/2011 09/30/2011 Inactive Lyrica 25 mg capsule RxNorm: 350315 1 Capsule(s) PO QPM 10/20/2017 Inactive docusate sodium 100 mg capsule RxNorm: 7258242 1 Capsule(s) PO BID 06/29/2012 06/28/2012 Inactive Senna-S 8.6 mg-50 mg tablet RxNorm: 331045 Tablet(s) PO 03/16/2012 Inactive Zithromax Z-Vu 250 mg Tab RxNorm: 577753 Tablet(s) PO 10/01/2011 Inactive as directed ketoconazole 2 % shampoo RxNorm: 063908 1 Application TOP twice weekly to face 04/11/2015 04/10/2015 Inactive Abilify 10 mg Tab RxNorm: 592485 1 Tablet(s) PO QD 11/21/2016 017 Inactive Lyrica 50 mg capsule RxNorm: 421518 1 Capsule(s) PO QAM 07/11/2016 Inactive divalproex 250 mg Tab, Delayed Release RxNorm: 9443448 1 Tablet( s) PO QPM 03/06/2010 03/05/2010 Inactive Flonase 50 mcg/Actuation Nasal [place] RxNorm: 3800520 1 [place] JOSE AL BID 11/22/2010 11/21/2010 Inactive Cerovite Advanced Formula Oral RxNorm: Oral 12/02/2011 12/01/19 12 Inactive trihexyphenidyl 2 mg tablet RxNorm: 004248 1 Tablet(s) PO BID 09/2609/25/2014 Inactive Culturelle 10 billion cell Cap RxNorm: 350156 1 Capsule(s) PO QD pr n 04/26/2015 04/25/2015 Inactive Flonase Allergy Relief 50 mcg/actuation nasal spray,suspensi on RxNorm: 2 [place] NASAL QHS 11/21/2014 11/20/2014 Inactive trihexyphenidyl 5 mg tablet RxNorm: 944153 1 Tablet(s) PO BID 09/2109/21/2019 Inactive Amitiza 24 mcg Cap RxNorm: 114492 1 Capsule(s) PO QAM 12/27/200912/02 Inactive Milk of Magnesia 400 mg/5 mL oral suspension RxNorm: 005881 30 Milliliter(s) PO QD as needed 06/30/2017 12/13/2020 Inactive Miralax 17 gram oral powder packet RxNorm: 184661 1 Uni t Dose PO QD in 6-8oz water daily 03/15/2014 03/14/2014 Inactive AttnRPh: Saving apply/adjudicate RxGRP:SG20 RxBIN:[id number] RxPCN:HT ID#:[id number] Calcium + D 600 mg (1,500)-200 unit tablet RxNorm: 729761 1 Tab let(s) PO QD 09/11/2012 09/10/2012 Inactive Flonase 50 mcg/actuation nasal spray,suspension RxNorm: 8963 23 2 [place] NASAL QHS 11/09/2014 11/09/2014 Inactive Benadryl 25 mg capsule RxNorm: 2921701 Capsule(s) PO as needed 08/201512/13/2020 Inactive Nasonex 50 mcg/Actuation [place] RxNorm: 4492204 1 NASAL PRN 010 11/06/2009 Inactive benztropine 2 mg tablet RxNorm: 000510 1 Tablet(s) PO BID 07/25/2015 07/24/2015 Inactive Lamisil AT 1 % topical cream RxNorm: 565276 1 Applicati on TOP BID for 2-4 weeks for athletes foot 07/07/2015 07/06/2015 Inactive Medication Administered No Medication Administered data Immunizations Vaccine Codes Dose Date Status Influenza (Adult) CVX: 141 11/23/2009 Results Observation Observation Code Item Item Code Result Date S ervice Location CANCEL [id number] CANCEL FOOTNOTE 07/25/2010 Unknown Procedures Procedure Codes Date URINALYSIS NONAUTO W/O SCOPE CPT-4: 07931 10/04/2019 [facility] URINE CULTURE/ COLONY COUNT CPT-4: 76089 10/04/19 20 PPPS, subseq visit CPT-4: G0439 09/22/2019 [facility] URINE CULTURE/ COLONY COUNT CPT-4: 84223 01/06/20 19 URINALYSIS NONAUTO W/O SCOPE CPT-4: 55067 01/05/2019 URINALYSIS NONAUTO W/O SCOPE CPT-4: 70250 10/29/2018 [facility] URINE CULTURE/ COLONY COUNT CPT-4: 55619 10/30/19 19 PPPS, subseq visit CPT-4: G0439 09/17/2018 PPPS, subseq visit CPT-4: G0439 08/25/2017 PPPS, subseq visit CPT-4: G0439 03/28/2015 PRESCRIP TRANSMIT VIA ERX SY CPT-4: G8553 11/17/2014 DESTRUCT PREMALG LESION (Cryosurgery) CPT-4: 24493 PRESCRIP TRANSMIT VIA ERX SY CPT-4: G8553 09/26/2014 PRESCRIP TRANSMIT VIA ERX SY CPT-4: G8553 03/15/2014 PPPS, subseq visit CPT-4: G0439 04/27/2013 PRESCRIP TRANSMIT VIA ERX SY CPT-4: G8553 05/23/2011 PRESCRIP TRANSMIT VIA ERX SY CPT-4: G8553 11/22/2010 [facility] URINE CULTURE/ COLONY COUNT CPT-4: 69013 08/04/19 11 [facility] URINE CULTURE/ COLONY COUNT CPT-4: 46645 07/24/19 11 URINALYSIS NONAUTO W/O SCOPE CPT-4: 52678 07/23/2010 IMMUNIZATION ADMIN CPT-4: 96426 01/01/2010 TDAP VACCINE 7 YRS/> IM CPT-4: 06201 01/01/2010 FLU VACCINE 3 YRS & > IM UP 64 CPT-4: 53106 0 ADMIN INFLUENZA VIRUS VAC CPT-4: G0008 11/23/2009 PRESCRIP TRANSMIT VIA ERX SY CPT-4: G8553 11/23/2009 Vital Signs Date Vital 04/22/2022 Blood Pressure 1: 126/74 Code: 8480-6 Heart Rate 1: 75 bpm Respiratory Rate: 20 bpm SpO2: 96% Temperature: 36.3 (C) / 97.3 (F) We ight: 174 lbs Code: 73777-0 02/18/2022 Blood Pressure 1: 130/72 Code: 8480-6 Heart Rate 1: 72 bpm Height: 5'9" Code: 8302-2 SpO2: 95% Temperature: 36.3 (C) / 97.3 (F) 02/04/2022 Blood Pressure 1: 117/68 Code: 8480-6 Heart Rate 1: 51 bpm Height: Code: 8302-2 SpO2: 100% Temperature: 35.9 (C) / 96.7 (F) Weight: Code: 29090-4 01/17/2022 Blood Pressure 1: 113/71 Code: 8480-6 BMI: 25.7 Code: 85098-1 Heart Rate 1: 64 bpm Height: 5'9" Code: 8302-2 SpO2: 99% Temperature: 3 6.3 (C) / 97.3 (F) Weight: 174 lbs Code: 89467-6 01/01/2022 Blood Pressure 1: 132/74 Code: 8480-6 BMI: 25.7 Code: 85641-0 Heart Rate 1: 66 bpm Height: 5'9" Code: 8302-2 SpO2: 98% Temperature: 3 6.6 (C) / 97.8 (F) Weight: 174 lbs Code: 29493-9 12/17/2021 Blood Pressure 1: 110/68 Code: 8480-6 BMI: 25.7 Code: 76764-4 Heart Rate 1: 59 bpm Height: 5'9" Code: 8302-2 SpO2: 100% Temperature: 3 6.2 (C) / 97.1 (F) Weight: 174 lbs Code: 98104-5 11/19/2021 Blood Pressure 1: 114/68 Code: 8480-6 Heart Rate 1: 60 bpm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 [place], [place] [phone] CHECK UP 12/02/2011 Patient Education: Patient Medication Summary Completed 12/02/2011 Visit Plan: No evidence of parkinson's t remor on exam--discussed parkinson's symptoms with hardwood floor refinisher 10/01/2011 Appointment: Tish Noetel: [phone] [phone] FOLLOW UP 10/01/2011 Patient Education: Patient Medication Summary Completed 10/01/2011 Visit Plan: Proceed with hearing evaluat ion Proceed with repeat CT of head DC Amitiza 07/22/2011 Appointment: Tish Noe WPtel: [address] [place], [place] [phone] ACUTE ILLNESS 07/22/2011 Patient Education: Patient Medication Summary Completed 07/22/2011 Visit Plan: will continue Loratidine. an d will use Azithromycin. Will notify if no improvement. Benadryl at bedtime PRN. 05/23/2011 Appointment: Kiley Wilson WPtel: [address] [place], [place] [phone] ACUTE ILLNESS 05/23/2011 Patient Education: Patient Medication Summary Completed 05/23/2011 Visit Plan: Continue claritin Add Z-pack 11/22/2010 Appointment: Tish Noe WPtel: [address] [place], [place] [phone] FOLLOW UP 11/22/2010 Patient Education: Patient Medication Summary Completed 11/22/2010 Appointment: Tish Noe WPtel: [address] [place], [place] [phone] [facility] 08/03/2010 Patient Education: Patient Medication Summary Completed 08/03/2010 Appointment: Tish Noe WPtel: [address] [place], [place] [phone] [facility] 07/23/2010 Patient Education: Patient Medication Summary Completed 07/23/2010 Visit Plan: Cont current meds Repeat lab in 6mos 05/24/2010 Appointment: Tish Noe WPtel: [address] [place], [place] [phone] FOLLOW UP 05/24/2010 Patient Education: Patient Medication Summary Completed 05/24/2010 Appointment: Tish Noe WPtel: [address] [place], [place] [phone] [facility] 01/01/2010 Patient Education: Patient Medication Summary Completed 01/01/2010 Appointment: Tish Noe WPtel: [address] [place], [place] [phone] FOLLOW UP 11/23/2009 Patient Education: Patient Medication Summary Completed 11/23/2009 Visit Plan: Check CMP, CBC, TSH, Free T4 , Depakote level, Vit D, B12, Lipids Start Abilify 5mg QD See Psych 10/24/2009 Appointment: Tish Noe WPtel: [address] [place], [place] [phone] ESTABLISHED PATIENT 10/24/2009 Patient Education: Patient Medication Summary Completed 10/24/2009 Visit Plan: Caregiver present states the pt. has not complained of pain or other symptoms. Swelling is present on left upper cheek. Caregiver states the pt. has eaten normally over the last few days. Pt. reports pain with eating. Instructed geriatric personal care aide to seek re-eval if symptoms persist or fever appears. OTC Tylenol or Motrin for discomfort recommended. 06/23/2009 Appointment: Kiley Wilson WPtel: [address] [place] [phone] ACUTE ILLNESS 06/23/2009 Patient Education: Patient Medication Summary Completed 06/23/2009 Referral: Yajaira Corea WPtel: [address] [place] [address] [place] Referral Initiated Referral: Gilbert Covarrubias WPtel: [phone] [place] [address] [place] Referral Initiated Referral: Earl Jordan WPtel: [phone] [place] [address] [place] Referral Initiated Instructions Comment Date . [...] tremor on e xam--discussed parkinson's symptoms with hardwood floor refinisher 10/01/2011 . Proceed with hearing evaluation Proceed [...] days. Pt. reports pain with eating. Instructed geriatric personal care aide to seek re-eval if symptoms persist or [...]
--- OUTSIDE RECORDS SUMMARY | 2022-07-03 13:18 | XMS REPORT | CCD ---
Author Author Steve Noe D.O. 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 Role Phone T[facility] D[facility] PP Unavailable CCM Unavailable Summary Purpose Interface Exchange Insurance Providers Payer name Policy type / Coverage type Covered democrat ID Effective Begin Date Effective End Date WPS MEDICARE PART B [place] Medicare Part B [id number] 2018 Unknown AETNA [facility] Medicare Part B [id number] Unknown Family history Father Diagnosis Age At Onset *Denies any medical problems Unknown Mother Diagnosis Age At Onset *Denies any medical problems Unknown Social History Social History Element Codes Description Effective Dates Tobacco history SNOMED CT: 715095520 Never smoker 11/17/2014 Marital status Unknown Single [...] Start Date Stop Date Status Fill Instructions pregabalin 50 mg capsule RxNorm: 595370 Take 1 Capsule(s) Oral QAM 05/15/2022 05/15/2022 Inactive Stimulant Laxative Plus 8.6 mg-50 mg tablet RxNorm: 527853 TAKE 2 TABLETS BY MOUTH TWICE DAILY 05/13/2022 08/13/2022 Active PLEASE NEW RX+ REFILLS FOR 31 DAYS THANKS Cipro 250 mg tablet RxNorm: 980274 Take 1 Tablet(s) Oral two ti mes a day 04/29/2022 05/08/2022 Inactive Cipro 250 mg tablet RxNorm: 674291 1 Tablet(s) Oral two times a day 04/29/2022 04/29/2022 Inactive Keppra 100 mg/mL oral solution RxNorm: 491419 Take 15 M illiliter(s) Oral two times a day 04/22/2022 08/19/2022 Active omeprazole 40 mg capsule,delayed release RxNorm: 694050 Take 1 Capsule(s) Oral QD 04/15/2022 10/11/2022 Active RX QTT LEFT NOT ENOUGH FOR 93 DAYS PLEASE NEW RX+REFILLS THANKS ketoconazole 2 % shampoo RxNorm: 391772 APPLY TO FACE TWICE PER WEE K 04/10/2022 05/09/2022 Inactive ciclopirox 8 % topical solution RxNorm: 091399 APPLY TO AFFECTED TOENAILS EVERY NIGHT AT BEDTIME OR 8 HOURS BEFORE WASHING 03/26/2022 04/24/2022 Inact dalia aripiprazole 10 mg tablet RxNorm: 254215 Take 1 Tablet(s) Oral HS 0 03/25/2022 05/25/2022 Active RX NEED A NEW RX+REF ILLS FOR 93 DAYS THANKS mirtazapine 15 mg tablet RxNorm: 682343 Take 1 Tablet(s) Oral HS 05/25/2022 Active RX NEED A NEW RX+REF ILLS FOR 93 DAYS THANKS polyethylene glycol 3350 17 gram/dose oral powder RxNorm: 87 6193 DRINK 17 GRAMS MIXED INTO 8 OZS. OF JUICE OR WATER TWICE DAILY 03/25/2022 06/22/2022 Active citalopram 40 mg tablet RxNorm: 214313 Take 1 Tablet(s) Oral QD 05/25/2022 Active RX NEED A NEW RX+REF ILLS FOR 93 DAYS THANKS Keppra 100 mg/mL oral solution RxNorm: 043200 Take 10 M illiliter(s) Oral two times a day 03/25/2022 03/25/2022 Inactive Keppra 100 mg/mL oral solution RxNorm: 422067 Take 10 M illiliter(s) Oral two times a day 03/25/2022 04/21/2022 Inactive lamotrigine 100 mg tablet RxNorm: 331481 Take 1 Tablet(s) Oral two times a day 03/18/2022 04/21/2022 Inactive PLEASE NEW RX+REFIIL S FOR 93 DAYS THANKS PrePlus 27 mg iron-1 mg tablet RxNorm: Take 1 Tablet(s) Oral Q D 03/13/2022 03/19/2023 Active PLEASE NEW RX+REFIILS FOR 93 DAYS THANKS loratadine 10 mg tablet RxNorm: 735855 Take 1 Tablet(s) Oral QD 05/20/2022 Active Lamictal 100 mg tablet RxNorm: 851732 Take 1 Tablet(s) Oral two times a day 02/20/2022 02/20/2022 Inactive Keppra 1,000 mg tablet RxNorm: 498200 Take 1 Tablet(s) Oral two times a day 02/18/2022 04/21/2022 Inactive loratadine 10 mg tablet RxNorm: 999142 TAKE 1 TABLET BY MOUTH 2 TIMES DAILY Take 1 Tablet(s) Oral two times a day 02/18/2022 02/19/2022 Inactive PLEASE NEW RX+REFILLS FOR 31 DAYS THANKS cephalexin 500 mg capsule RxNorm: 669110 Take 1 Capsule (s) Oral three times a day 02/18/2022 02/24/2022 Inactive fluticasone propionate 50 mcg/actuation nasal spray,suspensi on RxNorm: 6532637 SPRAY 1 SPRAY INTO EACH NOSTRIL TWICE DAILY 02/12/2022 08/10/2022 Acti ve omeprazole 40 mg capsule,delayed release RxNorm: 403539 Take 1 Capsule(s) Oral QD 02/12/2022 02/12/2022 Inactive Patient reques ts 90 days supply Stimulant Laxative Plus 8.6 mg-50 mg tablet RxNorm: 719969 TAKE 2 TABLETS BY MOUTH TWICE DAILY 02/12/2022 04/21/2022 Inactive PLEASE NEW RX+ REFILLS FOR 31 DAYS THANKS Lamictal 100 mg tablet RxNorm: 896463 Take 1 Tablet(s) Oral two times a day 02/11/2022 02/11/2022 Inactive Lamictal 100 mg tablet RxNorm: 404499 1 Tablet(s) Oral two time s a day 02/11/2022 02/11/2022 Inactive omeprazole 40 mg capsule,delayed release RxNorm: 947356 Take 1 Capsule(s) Oral QD 02/07/2022 02/07/2022 Inactive Patient reques ts 90 days supply Culturelle 10 billion cell capsule RxNorm: 529309 Take 1 Capsul e(s) Oral QD 02/05/2022 04/05/2022 Inactive Keppra 500 mg tablet RxNorm: 461475 Take 1 Tablet(s) Oral QD 202102/17/2022 Inactive Benadryl Allergy 25 mg tablet RxNorm: 1804484 Take 1 Tab let(s) Oral Every 6 hours as needed for hives 01/17/2022 No Stop Date Active pregabalin 50 mg capsule RxNorm: 278363 Take 1 Capsule(s) Oral QAM 01/01/2022 02/04/2022 Inactive pregabalin 25 mg capsule RxNorm: 242462 Take 1 Capsule(s) Oral QAM 01/01/2022 01/01/2022 Inactive Lamictal 100 mg tablet RxNorm: 279834 Take 1 Tablet(s) Oral QD 03/202102/04/2022 Inactive levetiracetam 250 mg tablet RxNorm: 776300 Take 1 Table t(s) Oral two times a day 01/01/2022 01/01/2022 Inactive Keppra 1,000 mg tablet RxNorm: 765381 Take 1 Tablet(s) Oral two times a day replaces 500mg dose 01/01/2022 02/17/2022 Inactive Depakote 500 mg tablet,delayed release RxNorm: 7845150 T willi 1 Tablet(s) Oral two times a day 01/01/2022 01/01/2022 Inactive Augmentin 500 mg-125 mg tablet RxNorm: 585035 1 Tablet(s) Oral two times a day 12/25/2021 12/25/2021 Inactive Augmentin 500 mg-125 mg tablet RxNorm: 090652 Take 1 Ta blet(s) Oral two times a day 12/25/2021 12/29/2021 Inactive Depakote 250 mg tablet,delayed release RxNorm: 5672690 T willi 1 Tablet(s) Oral two times a day for seizure 12/17/2021 12/31/2021 Inactive pregabalin 50 mg capsule RxNorm: 083949 TAKE 1 CAPSULE BY MOUTH EACH MORNING 12/12/2021 12/31/2021 Inactive PLEASE NEW RX+REFILL S FOR 31 DAYS. THANKS pregabalin 25 mg capsule RxNorm: 846303 Take 1 Capsule(s) Oral two times a day 12/12/2021 12/31/2021 Inactive loratadine 10 mg tablet RxNorm: 561978 TAKE 1 TABLET BY MOUTH DAILY 12/08/2021 12/08/2021 Inactive PLEASE NEW RX+REFILLS FOR 31 DAYS THANKS fluticasone propionate 50 mcg/actuation nasal spray,suspensi on RxNorm: 7946861 SPRAY 1 SPRAY INTO EACH NOSTRIL TWICE DAILY 12/04/2021 12/04/2021 Inac tive levetiracetam 1,000 mg tablet RxNorm: 030241 Take 1 Tablet(s) O ral QPM 12/04/2021 12/11/2021 Inactive levetiracetam 750 mg tablet RxNorm: 307855 Take 1 Tablet(s) Oral QA M 12/04/2021 12/11/2021 Inactive levetiracetam 750 mg tablet RxNorm: 438948 Take 1 Tablet(s) Oral QA M 11/26/2021 11/26/2021 Inactive levetiracetam 1,000 mg tablet RxNorm: 061115 Take 1 Tablet(s) O ral QPM 11/26/2021 11/26/2021 Inactive levetiracetam 750 mg tablet RxNorm: 998873 Take 1 Tablet(s) Oral QA M 11/26/2021 12/31/2021 Inactive levetiracetam 1,000 mg tablet RxNorm: 743271 Take 1 Tablet(s) O ral QPM 11/26/2021 12/31/2021 Inactive levetiracetam 750 mg tablet RxNorm: 195126 Take 1 Tablet(s) Oral QA M 11/19/2021 11/26/2021 Inactive melatonin 5 mg tablet RxNorm: 961876 TAKE 1 TABLET BY M OUTH DAILY IN THE EVENING NEEDED FOR SLEEP 11/06/2021 11/06/2021 Inactive melatonin 5 mg tablet RxNorm: 347925 Take 1 Tablet(s) O ral every night at bedtime 11/06/2021 12/31/2021 Inactive Senna Plus 8.6 mg-50 mg tablet RxNorm: 075909 Take 1 Ta blet(s) Oral two times a day 10/16/2021 11/14/2021 Inactive nystatin 100,000 unit/gram topical cream RxNorm: 071668 Apply Application Topical two times a day to lateral foot rash for 2 weeks and as needed for scaling rash 10/16/2021 No Stop Date Active metronidazole 0.75 % lotion RxNorm: 104943 Take Application Top ical QPM to face 10/16/2021 No Stop Date Active pregabalin 25 mg capsule RxNorm: 317044 Take 1 Capsule(s) Oral two times a day 10/16/2021 12/12/2021 Inactive levetiracetam 1,000 mg tablet RxNorm: 588899 Take 1 Tablet(s) O ral QPM 10/16/2021 10/16/2021 Inactive RX QTY LEFT NOT ENOU GH FOR 31 DAYS PLEASE NEW RX+REFILLS THANKS Keppra 500 mg tablet RxNorm: 121806 Take 1 Tablet(s) Or al QAM replaces 1000mg AM dose 10/16/2021 11/26/2021 Inactive polyethylene glycol 3350 17 gram/dose oral powder RxNorm: 87 6193 DRINK 17 GRAMS MIXED INTO 8 OZS. OF JUICE OR WATER TWICE DAILY 10/12/2021 10/12/2021 Inactive ketoconazole 2 % shampoo RxNorm: 140690 APPLY TO FACE TWICE PER WEE K 09/19/2021 09/19/2021 Inactive PrePlus 27 mg iron-1 mg tablet RxNorm: Take 1 Tablet(s) Oral Q D 09/12/2021 11/10/2021 Inactive RX QTY LEFT NOT ENOUGH FOR 9 3 DAYS PLEASE NEW RX+REFILLS THANKS Culturelle 10 billion cell capsule RxNorm: 538660 Take 1 Capsul e(s) Oral QD 09/10/2021 09/10/2021 Inactive Stimulant Laxative Plus 8.6 mg-50 mg tablet RxNorm: 669547 TAKE 2 TABLETS BY MOUTH TWICE DAILY 08/14/2021 10/15/2021 Inactive PLEASE NEW RX+ REFILLS FOR 31 DAYS THANKS pregabalin 50 mg capsule RxNorm: 218502 TAKE 1 CAPSULE BY MOUTH EACH MORNING 07/15/2021 10/15/2021 Inactive PLEASE NEW RX+REFILL S FOR 31 DAYS. THANKS pregabalin 25 mg capsule RxNorm: 814603 Take 1 Capsule(s) Oral HS 0 07/15/2021 10/15/2021 Inactive PLEASE NEW RX+REFILLS FOR 31 DAYS. THANKS levetiracetam 1,000 mg tablet RxNorm: 251324 Take 1 Tab let(s) Oral two times a day 06/11/2021 10/15/2021 Inactive RX QTY LEFT NOT ENOUGH FOR 31 DAYS PLEASE NEW RX+REFILLS THANKS loratadine 10 mg tablet RxNorm: 356998 TAKE 1 TABLET BY MOUTH DAILY 06/11/2021 06/11/2021 Inactive PLEASE NEW RX+REFILLS FOR 31 DAYS. THANKS Keppra 1,000 mg tablet RxNorm: 131065 Take 1 Tablet(s) Oral two times a day 05/08/2021 05/08/2021 Inactive Keppra 1,000 mg tablet RxNorm: 150395 Take 1 Tablet(s) Oral two times a day 05/08/2021 05/07/2021 Inactive ciclopirox 8 % topical solution RxNorm: 250621 Take Top ical QD to the affected area(s)preferably at bedtime or 8 hours before washing--to toenails 05/08/2021 10/15/2021 Inactive melatonin 5 mg capsule RxNorm: 919150 Take 1 Capsule(s) Oral QPM as needed for sleep 04/25/2021 10/21/2021 Inactive polyethylene glycol 3350 17 gram/dose oral powder RxNorm: 87 6193 DRINK 17 GRAMS MIXED INTO 8 OZS. OF JUICE OR WATER TWICE DAILY 04/24/2021 04/24/2021 Inactive Culturelle 10 billion cell capsule RxNorm: 242876 Take 1 Capsul e(s) Oral QD 04/16/2021 04/16/2021 Inactive pregabalin 25 mg capsule RxNorm: 254324 Take 1 Capsule(s) Oral HS 0 04/13/2021 04/13/2021 Inactive PLEASE NEW RX+REFILLS FOR 31 DAYS. THANKS pregabalin 50 mg capsule RxNorm: 720971 TAKE 1 CAPSULE BY MOUTH EACH MORNING 04/13/2021 04/13/2021 Inactive PLEASE NEW RX+REFILL S FOR 31 DAYS. THANKS fluticasone propionate 50 mcg/actuation nasal spray,suspensi on RxNorm: 1153269 SPRAY 1 SPRAY INTO EACH NOSTRIL TWICE DAILY 03/13/2021 03/13/2021 Inac tive polyethylene glycol 3350 17 gram/dose oral powder RxNorm: 87 6193 DRINK 17 GRAMS MIXED INTO 8 OZS. OF JUICE OR WATER TWICE DAILY 03/05/2021 04/03/2021 Inactive Gavilax 17 gram/dose oral powder RxNorm: 700446 DRINK 1 7 GRAMS MIXED INTO 8 OZS. OF JUICE OR WATER TWICE DAILY 02/27/2021 02/27/2021 Inactive Stimulant Laxative Plus 8.6 mg-50 mg tablet RxNorm: 011009 TAKE 2 TABLETS BY MOUTH TWICE DAILY 02/16/2021 02/16/2021 Inactive Tucks (witch juanita) 50 % topical pads RxNorm: 096680 Ta ke Application Topical four times a day as needed 02/05/2021 No Stop Date Active citalopram 40 mg tablet RxNorm: 265717 Take 1 Tablet(s) Oral QD 08/202003/25/2022 Inactive Culturelle 10 billion cell capsule RxNorm: 648791 Take 1 Capsul e(s) Oral QD 02/05/2021 04/16/2021 Inactive melatonin 5 mg capsule RxNorm: 966457 Take 1 Capsule(s) Oral QPM as needed for sleep 02/05/2021 02/05/2021 Inactive Keppra 750 mg tablet RxNorm: 074278 Take 1 Tablet(s) Or al two times a day replaces 500mg dose 02/05/2021 05/07/2021 Inactive Keppra 500 mg tablet RxNorm: 046202 Take 1 Tablet(s) Oral two t imes a day 01/17/2021 02/04/2021 Inactive Keppra 500 mg tablet RxNorm: 511277 Take 1 Tablet(s) Oral two t imes a day 01/17/2021 01/17/2021 Inactive Culturelle 10 billion cell capsule RxNorm: 329068 Take 1 Capsule(s) Oral QD as needed 01/16/2021 02/04/2021 Inactive levofloxacin 250 mg tablet RxNorm: 398220 Take 1 Tablet(s) Oral QD 01/04/2021 01/13/2021 Inactive cranberry 450 mg tablet RxNorm: Take 1 Tablet(s) Oral tw o times a day 12/14/2020 No Stop Date Active Gold Rosario Medicated 0.8 %-5 % topical powder RxNorm: 169052 Top ical as needed 12/14/2020 No Stop Date Active hydrocortisone 1 % topical cream RxNorm: 420352 Topical as needed 1 No Stop Date Active Gavilax 17 gram/dose oral powder RxNorm: 700898 Give 17 Gram(s) Oral two times a day in 8 ounces of juice/water 12/14/2020 10/15/2021 Inactive Culturelle 10 billion cell capsule RxNorm: 002915 Take 1 Capsule(s) Oral QD as needed 12/14/2020 01/16/2021 Inactive mirtazapine 15 mg tablet RxNorm: 459723 Take 1 Tablet(s ) Oral every night at bedtime 12/14/2020 03/25/2022 Inactive aripiprazole 10 mg tablet RxNorm: 130386 Take 1 Tablet(s) Oral QD 1 03/25/2022 Inactive pregabalin 25 mg capsule RxNorm: 345480 Take 1 Capsule(s) Oral HS 1 12/13/2020 Inactive loratadine 10 mg tablet RxNorm: 982647 TAKE 1 TABLET BY MOUTH DAILY 12/13/2020 12/13/2020 Inactive pregabalin 50 mg capsule RxNorm: 488964 TAKE 1 CAPSULE BY MOUTH EACH MORNING 12/13/2020 12/13/2020 Inactive Gavilax 17 gram/dose oral powder RxNorm: 417043 DRINK 1 7 GRAMS MIXED INTO 8 OZS. OF JUICE OR WATER TWICE DAILY 12/05/2020 12/13/2020 Inactive fluticasone propionate 50 mcg/actuation nasal spray,suspensi on RxNorm: 9087772 USE 1 SPRAY IN EACH NOSTRIL TWICE DAILY 11/16/2020 11/16/2020 Inactive pregabalin 25 mg capsule RxNorm: 927077 Take 1 Capsule(s) Oral HS 0 11/12/2020 11/12/2020 Inactive pregabalin 50 mg capsule RxNorm: 557789 TAKE 1 CAPSULE BY MOUTH EACH MORNING 11/12/2020 11/12/2020 Inactive Gavilax 17 gram/dose oral powder RxNorm: 395711 DRINK 1 7 GRAMS MIXED INTO 8 OZS. OF JUICE OR WATER TWICE DAILY 10/16/2020 11/14/2020 Inactive PrePlus 27 mg iron-1 mg tablet RxNorm: Take 1 Tablet(s) Oral Q D 10/12/2020 11/11/2020 Inactive pregabalin 50 mg capsule RxNorm: 807838 TAKE 1 CAPSULE BY MOUTH EACH MORNING 10/12/2020 10/12/2020 Inactive Stimulant Laxative Plus 8.6 mg-50 mg tablet RxNorm: 768493 TAKE 2 TABLETS BY MOUTH TWICE DAILY 10/12/2020 10/12/2020 Inactive pregabalin 25 mg capsule RxNorm: 892086 Take 1 Capsule(s) Oral HS 0 10/12/2020 10/12/2020 Inactive loratadine 10 mg tablet RxNorm: 519564 TAKE 1 TABLET BY MOUTH DAILY 09/12/2020 09/12/2020 Inactive ketoconazole 2 % shampoo RxNorm: 503000 1 Application T opical twice weekly to face 07/20/2020 07/20/2020 Inactive OUT OF REFILLS Senna-S 8.6 mg-50 mg tablet RxNorm: 838299 TAKE 2 TABLETS BY [facility] TWICE DAILY 07/17/2020 07/17/2020 Inactive PLEASE NEW RX+REFILL S FOR 31 DAYS. THANKS Miralax 17 gram oral powder packet RxNorm: 071358 TAKE 17 GRAMS MIXED INTO 8 OZS. OF JUICE OR WATER TWICE DAILY 06/27/2020 12/13/2020 Inactive OUT OF REFILLS Lyrica 25 mg capsule RxNorm: 196397 TAKE 1 CAPSULE BY OUTH DAILY AT BEDTIME Capsule(s) Oral 06/14/2020 06/14/2020 Inactive Lyrica 50 mg capsule RxNorm: 183482 Capsule(s) Oral GM E 1 CAPSULE BY MOUTH EACH MORNING 06/14/2020 06/14/2020 Inactive fluticasone propionate 50 mcg/actuation nasal spray,suspensi on RxNorm: 3164071 1 [place] Nasal two times a day 06/06/2020 06/06/2020 Inactive OUT OF REFILLS Plus 27 mg-1 mg tablet RxNorm: 1 Tablet(s) PO Q D 1 Tablet(s) Oral QD 05/10/2020 10/15/2021 Inactive Senna-S 8.6 mg-50 mg tablet RxNorm: 698065 TAKE 2 TABLETS BY [facility] TWICE DAILY 04/10/2020 07/11/2020 Inactive PLEASE NEW RX+REFILL S FOR 31 DAYS. THANKS loratadine 10 mg tablet RxNorm: 628054 TAKE 1 TABLET BY MOUTH DAILY 04/10/2020 04/10/2020 Inactive PLEASE NEW RX+REFILLS FOR 31 DAYS. THANKS ketoconazole 2 % shampoo RxNorm: 819317 1 Application T opical twice weekly to face 03/22/2020 07/19/2020 Inactive OUT OF REFILLS Lyrica 50 mg capsule RxNorm: 948053 Capsule(s) Oral GM E 1 CAPSULE BY MOUTH EACH MORNING 02/10/2020 06/12/2020 Inactive Lyrica 25 mg capsule RxNorm: 478810 TAKE 1 CAPSULE BY M OUTH DAILY AT BEDTIME Capsule(s) Oral 02/10/2020 06/08/2020 Inactive Senna-S 8.6 mg-50 mg tablet RxNorm: 739148 TAKE 2 TABLETS BY MO UTH TWICE DAILY 01/13/2020 04/09/2020 Inactive PLEASE NEW RX+REFILL S FOR 31 DAYS. THANKS Miralax 17 gram oral powder packet RxNorm: 868016 TAKE 17 GRAMS MIXED INTO 8 OZS. OF JUICE OR WATER TWICE DAILY 01/10/2020 06/26/2020 Inactive OUT OF REFILLS Miralax 17 gram oral powder packet RxNorm: 481408 TAKE 17 GRAMS MIXED INTO 8 OZS. OF JUICE OR WATER TWICE DAILY 12/15/2019 01/09/2020 Inactive OUT OF REFILLS ketoconazole 2 % shampoo RxNorm: 417902 APPLY TO FACE TWICE PER WEE K 12/09/2019 03/21/2020 Inactive OUT OF REFILLS Plus 27 mg-1 mg tablet RxNorm: 1 Tablet(s) PO Q D 1 Tablet(s) Oral QD 11/17/2019 05/09/2020 Inactive loratadine 10 mg tablet RxNorm: 220527 TAKE 1 TABLET BY MOUTH DAILY 11/17/2019 04/09/2020 Inactive PLEASE NEW RX+REFILLS FOR 31 DAYS. THANKS Lyrica 50 mg capsule RxNorm: 321438 Capsule(s) Oral GM E 1 CAPSULE BY MOUTH EACH MORNING 10/18/2019 02/08/2020 Inactive Lyrica 25 mg capsule RxNorm: 259549 TAKE 1 CAPSULE BY M OUTH DAILY AT BEDTIME Capsule(s) Oral 10/18/2019 02/13/2020 Inactive Senna-S 8.6 mg-50 mg tablet RxNorm: 764709 TAKE 2 TABLETS BY MO UTH TWICE DAILY 10/18/2019 01/12/2020 Inactive PLEASE NEW RX+REFILL S FOR 31 DAYS. THANKS Bactrim DS 800 mg-160 mg tablet RxNorm: 329310 1 Tablet(s) Oral two times a day 10/04/2019 10/10/2019 Inactive Vitamin C 500 mg tablet RxNorm: 828890 1 Tablet(s) Oral QD 09/22/1912/31/2021 Inactive citalopram 10 mg tablet RxNorm: 504180 1 Tablet(s) Oral QD 09/22/19 20 02/04/2021 Inactive omeprazole 40 mg capsule,delayed release RxNorm: 961784 1 Capsule(s) Oral QD for reflux 08/16/2019 09/21/2019 Inactive Clindagel 1 % topical gel, once daily RxNorm: 050393 Ap plication Topical QPM to face rash or prn for rosacea 07/21/2019 12/13/2020 Inactive loratadine 10 mg tablet RxNorm: 510379 TAKE 1 TABLET BY MOUTH DAILY 07/19/2019 11/15/2019 Inactive PLEASE NEW RX+REFILLS FOR 31 DAYS. THANKS Senna-S 8.6 mg-50 mg tablet RxNorm: 547508 TAKE 2 TABLETS BY MO UTH TWICE A DAY 07/19/2019 10/17/2019 Inactive PLEASE NEW RX+REFILL S FOR 31 DAYS. THANKS fluticasone propionate 50 mcg/actuation nasal spray,suspensi on RxNorm: 0230584 USE 1 SPRAY IN EACH NOSTRIL TWICE DAILY 07/01/2019 06/05/2020 Inactive OUT OF REFILLS Lyrica 50 mg capsule RxNorm: 051372 Capsule(s) Oral GM E 1 CAPSULE BY MOUTH EACH MORNING 06/16/2019 10/16/2019 Inactive Lyrica 25 mg capsule RxNorm: 388331 TAKE 1 CAPSULE BY M OUTH DAILY AT BEDTIME Capsule(s) Oral 06/16/2019 10/12/2019 Inactive Plus 27 mg-1 mg tablet RxNorm: 1 Tablet(s) PO Q D 1 Tablet(s) Oral QD 2019 11/16/2019 Inactive triamcinolone acetonide 0.025 % topical cream RxNorm: 613092 4 1 Application Topical two times a day apply thin layer to cheeks 05/03/2019 0 Inactive Lyrica 50 mg capsule RxNorm: 957829 Capsule(s) TAKE 1 C APSULE BY MOUTH EACH MORNING 02/22/2019 06/25/2019 Inactive Lyrica 25 mg capsule RxNorm: 928106 TAKE 1 CAPSULE BY MOUTH DOMINICK LY AT BEDTIME 02/22/2019 06/21/2019 Inactive loratadine 10 mg tablet RxNorm: 425773 TAKE 1 TABLET BY MOUTH DAILY 01/21/2019 03/23/2019 Inactive PLEASE NEW RX+REFILLS FOR 31 DAYS. THANKS Senna-S 8.6 mg-50 mg tablet RxNorm: 669615 TAKE 2 TABLETS BY MO UT TWICE A DAY 01/21/2019 07/18/2019 Inactive PLEASE NEW RX+REFILL S FOR 31 DAYS. THANKS Macrobid 100 mg capsule RxNorm: 656506 1 Capsule(s) Oral two ti mes a day 01/11/2019 01/10/2019 Inactive Macrobid 100 mg capsule RxNorm: 168246 1 Capsule(s) Oral two ti mes a day 01/11/2019 01/21/2019 Inactive Cipro 250 mg tablet RxNorm: 098784 1 Tablet(s) Oral two times a day 01/05/2019 01/12/2019 Inactive Senna-S 8.6 mg-50 mg tablet RxNorm: 494862 TAKE 2 TABLETS BY [facility] TWICE A DAY 12/21/2018 01/20/2019 Inactive NEED A NEW RX+REFILL S PLEASE FOR 31 DAYS. THANKS Plus 27 mg-1 mg tablet RxNorm: 1 Tablet(s) PO QD 11/0205/20/2019 Inactive doxycycline hyclate 100 mg capsule RxNorm: 5158102 1 Cap edison(s) Oral two times a day 11/23/2018 11/30/2018 Inactive doxycycline hyclate 100 mg capsule RxNorm: 5312530 1 Cap edison(s) Oral two times a day 11/23/2018 11/22/2018 Inactive loratadine 10 mg tablet RxNorm: 374744 1 Tablet(s) PO QD 11/23/201803/22/2018 Inactive doxycycline hyclate 100 mg capsule RxNorm: 6684514 1 Cap edison(s) Oral two times a day 11/23/2018 11/22/2018 Inactive Macrobid 100 mg capsule RxNorm: 379987 1 Capsule(s) PO BID 11/05/1911/10/2018 Inactive Macrobid 100 mg capsule RxNorm: 248700 1 Capsule(s) PO BID 11/05/1911/03/2018 Inactive Bactrim DS 800 mg-160 mg tablet RxNorm: 953658 1 Tablet(s) PO BID 0 10/29/2018 10/28/2018 Inactive Bactrim DS 800 mg-160 mg tablet RxNorm: 232506 1 Tablet(s) PO BID 0 10/29/2018 11/03/2018 Inactive Miralax 17 gram oral powder packet RxNorm: 220740 TAKE 17 GRAMS MIXED INTO 8 OZS. OF JUICE OR WATER TWICE DAILY 10/15/2018 01/15/2019 Inactive OUT OF REFILLS fluconazole 100 mg tablet RxNorm: 535446 1 Tablet(s) PO QD 10/13/19 19 10/18/2018 Inactive clotrimazole-betamethasone 1 %-0.05 % topical cream RxNorm: 303425 Application TOP BID to foot rash for 1-2 weeks 10/12/2018 09/21/2019 Inactive fluticasone propionate 50 mcg/actuation nasal spray,suspensi on RxNorm: 6808090 USE 1 SPRAY IN EACH NOSTRIL TWICE DAILY 09/01/2018 12/29/2018 Inactive Senna-S 8.6 mg-50 mg tablet RxNorm: 776810 TAKE 2 TABLETS BY [facility] TWICE A DAY 08/19/2018 12/20/2018 Inactive nystatin 100,000 unit/gram topical cream RxNorm: 747552 1 Gram( s) TOP BID 08/10/2018 08/09/2018 Inactive acyclovir 800 mg tablet RxNorm: 141416 1 Tablet(s) PO 5x day 201808/09/2018 Inactive nystatin 100,000 unit/gram topical cream RxNorm: 630109 1 Gram( s) TOP BID 08/10/2018 08/19/2018 Inactive acyclovir 800 mg tablet RxNorm: 673032 1 Tablet(s) PO 5x day 201808/16/2018 Inactive Miralax 17 gram oral powder packet RxNorm: 339135 TAKE 17 GRAMS MIXED INTO 8 OZS. OF JUICE OR WATER TWICE DAILY 07/31/2018 10/14/2018 Inactive Lyrica 25 mg capsule RxNorm: 753110 TAKE 1 CAPSULE BY MOUTH DOMINICK LY AT BEDTIME 07/16/2018 08/14/2018 Inactive nystatin 100,000 unit/gram topical powder RxNorm: 484127 1 Application TOP BID to upper thighs for 14 days 06/29/2018 07/12/2018 Inactive nystatin 100,000 unit/gram topical powder RxNorm: 912361 1 Application TOP BID to upper thighs for 14 days 06/29/2018 06/28/2018 Inactive Plus 27 mg-1 mg tablet RxNorm: 1 Tablet(s) PO QD 06/0111/22/2018 Inactive loratadine 10 mg tablet RxNorm: 461850 1 Tablet(s) PO QD 06/16/2018 0 11/22/2018 Inactive Miralax 17 gram oral powder packet RxNorm: 309040 TAKE 17 GRAMS MIXED INTO 8 OZS. OF JUICE OR WATER TWICE DAILY 05/19/2018 07/30/2018 Inactive ketoconazole 2 % shampoo RxNorm: 893882 APPLY TO FACE TWICE PER WEE K 05/04/2018 11/29/2018 Inactive Macrobid 100 mg capsule RxNorm: 745377 1 Capsule(s) PO BID 04/17/1904/16/2018 Inactive Macrobid 100 mg capsule RxNorm: 917214 1 Capsule(s) PO BID 04/17/1904/26/2018 Inactive Zithromax Z-Vu 250 mg tablet RxNorm: 334152 Tablet(s) PO As Di rected 02/26/2018 03/02/2018 Inactive Tessalon Perles 100 mg capsule RxNorm: 806921 1 Capsule (s) PO TID as needed for cough 02/26/2018 01/04/2019 Inactive Senna-S 8.6 mg-50 mg tablet RxNorm: 933873 2 Tablet(s) PO BID 02/1608/14/2018 Inactive Miralax 17 gram oral powder packet RxNorm: 483247 TAKE 17 GRAMS MIXED INTO 8 OZS. OF JUICE OR WATER TWICE DAILY 01/08/2018 04/10/2018 Inactive Miralax 17 gram oral powder packet RxNorm: 435466 1 Tab let(s) PO BID TAKE 17 GRAMS MIXED INTO 8 OZS. OF JUICE OR WATER TWICE DAILY 11/17/20172017 Inactive Miralax 17 gram oral powder packet RxNorm: 390866 1 Tab let(s) PO QD TAKE 17 GRAMS MIXED INTO 8 OZS. OF JUICE OR WATER once DAILY 11/04/2017 021 Inactive polymyxin B sulfate 10,000 unit-trimethoprim 1 mg/mL eye bandar ps RxNorm: 623971 2 Drop(s) ophthalmic (eye) Q4H while awake 10/29/2017 11/04/2017 Inactiv e Lyrica 25 mg capsule RxNorm: 738640 TAKE 1 CAPSULE BY MOUTH EAC H EVENING 10/20/2017 07/16/2018 Inactive Senna-S 8.6 mg-50 mg tablet RxNorm: 101763 2 Tablet(s) PO BID 10/2002/15/2018 Inactive Lyrica 50 mg capsule RxNorm: 408425 TAKE 1 CAPSULE BY MOUTH EAC H MORNING 10/20/2017 01/20/2018 Inactive loratadine 10 mg tablet RxNorm: 073188 Tablet(s) TAKE 1 TABLET BY MOUTH DAILY 10/20/2017 06/16/2018 Inactive Plus 27 mg-1 mg tablet RxNorm: Tablet(s) TAKE 1 TABLET BY MOUTH DAILY 10/20/2017 06/16/2018 Inactive nystatin 100,000 unit/gram topical cream RxNorm: 742615 Gram(s) TOP BID for 2 weeks 09/16/2017 09/21/2019 Inactive loratadine 10 mg tablet RxNorm: 693580 TAKE 1 TABLET BY MOUTH DAILY 08/18/2017 10/20/2017 Inactive Plus 27 mg-1 mg tablet RxNorm: TAKE 1 TABLET BY MOUTH DAILY 08/18/2017 10/20/2017 Inactive Miralax 17 gram oral powder packet RxNorm: 636486 1 Tab let(s) PO BID TAKE 17 GRAMS MIXED INTO 8 OZS. OF JUICE OR WATER TWICE DAILY 06/13/20172017 Inactive Miralax 17 gram oral powder packet RxNorm: 075947 1 Tab let(s) PO BID TAKE 17 GRAMS MIXED INTO 8 OZS. OF JUICE OR WATER TWICE DAILY 06/13/20172020 Inactive doxycycline hyclate 100 mg capsule RxNorm: 6583388 1 Capsule(s) PO BID 06/06/2017 06/05/2017 Inactive Cipro 250 mg tablet RxNorm: 326342 1 Tablet(s) PO BID 06/06/201706/01 Inactive Cipro 250 mg tablet RxNorm: 003456 1 Tablet(s) PO BID 06/06/2017 0407/2017 Inactive doxycycline hyclate 100 mg capsule RxNorm: 3776696 1 Capsule(s) PO BID 06/06/2017 06/12/2017 Inactive Senna-S 8.6 mg-50 mg tablet RxNorm: 132045 2 Tablet(s) PO BID 05/1910/20/2017 Inactive Miralax 17 gram oral powder packet RxNorm: 895552 1 Tab let(s) PO BID TAKE 17 GRAMS MIXED INTO 8 OZS. OF JUICE OR WATER TWICE DAILY 01/06/20172017 Inactive Senna-S 8.6 mg-50 mg tablet RxNorm: 692803 2 Tablet(s) PO BID 12/1105/19/2017 Inactive Abilify 5 mg tablet RxNorm: 882280 1 Tablet(s) PO QHS 11/21/201612/01 Inactive docusate sodium 100 mg capsule RxNorm: 5702512 1 Capsule(s) PO BID 09/17/2016 09/21/2019 Inactive [AttnRPh: Saving apply/adjud icate RxGRP:SG20 RxBIN:[id number] RxPCN:HT ID#:[id number]] loratadine 10 mg tablet RxNorm: 996832 1 Tablet(s) PO QD 09/17/2016 0 08/17/2017 Inactive [AttnRPh: Saving apply/adjudicate RxGRP: SG20 RxBIN:[id number] RxPCN:HT ID#:[id number]] Plus 27 mg-1 mg tablet RxNorm: 1 Tablet(s) PO QD 08/3108/17/2017 Inactive [AttnRPh: Saving apply/adjud icate RxGRP:SG20 RxBIN:[id number] RxPCN:HT ID#:[id number]] Calcium + D 600 mg (1,500 mg)-200 unit tablet RxNorm: 444221 1 Tablet(s) PO QD 09/17/2016 09/21/2019 Inactive ketoconazole 2 % shampoo RxNorm: 666196 APPLY TO FACE TWICE PER WEE K 08/26/2016 02/21/2017 Inactive fluticasone propionate 50 mcg/actuation nasal spray,suspensi on RxNorm: 0818433 [place] USE 1 SPRAY IN EACH NOSTRIL TWICE A DAY 07/30/2016 01/25/2017 In active Miralax 17 gram oral powder packet RxNorm: 689611 TAKE 17 GRAMS MIXED INTO 8 OZS. OF JUICE OR WATER TWICE DAILY 07/30/2016 01/06/2017 Inactive Senna-S 8.6 mg-50 mg tablet RxNorm: 818474 2 Tablet(s) PO BID 07/1512/10/2016 Inactive Lyrica 50 mg capsule RxNorm: 103928 TAKE 1 CAPSULE BY MOUTH EAC H MORNING 07/11/2016 08/09/2016 Inactive Miralax 17 gram oral powder packet RxNorm: 207872 TAKE 17 GRAMS MIXED INTO 8 OZS. OF JUICE OR WATER TWICE DAILY 07/04/2016 07/29/2016 Inactive Miralax 17 gram oral powder packet RxNorm: 402808 TAKE 17 GRAMS MIXED INTO 8 OZS. OF JUICE OR WATER TWICE DAILY 07/04/2016 08/03/2016 Inactive Miralax 17 gram oral powder packet RxNorm: 391602 TAKE 17 GRAMS MIXED INTO 8 OZS. OF JUICE OR WATER TWICE DAILY 06/13/2016 07/03/2016 Inactive benztropine 2 mg tablet RxNorm: 332711 1 Tablet(s) PO BID 04/15/2016 09/21/2019 Inactive ketoconazole 2 % shampoo RxNorm: 085018 APPLY TO FACE TWICE PER WEE K 04/01/2016 08/25/2016 Inactive ketoconazole 2 % shampoo RxNorm: 513402 APPLY TO FACE TWICE PER WEE K 04/01/2016 12/13/2020 Inactive Miralax 17 gram oral powder packet RxNorm: 820329 TAKE 17 GRAMS MIXED INTO 8 OZS. OF JUICE OR WATER TWICE DAILY 03/29/2016 06/12/2016 Inactive calcium carbonate 600 mg calcium (1,500 mg)-vit D3 1,0 00 unit capsule RxNorm: 0700490 1 Capsule(s) PO QD 03/15/2016 09/17/2016 Inactive fluticasone 50 mcg/actuation nasal spray,suspension RxNorm: 5245069 [place] USE 1 SPRAY IN EACH NOSTRIL TWICE A DAY 03/04/2016 07/29/2016 Inactive Miralax 17 gram oral powder packet RxNorm: 421443 1 Uni t Dose PO BID in 6-8oz water daily 02/28/2016 03/28/2016 Inactive attnrph: saving apply/adjudicate rxgrp:sg20 rxbin:[id number] rxpcn: id#:[id number] Senna-S 8.6 mg-50 mg tablet RxNorm: 328293 TAKE TWO TABLETS ORA LLY TWICE A DAY 01/18/2016 07/15/2016 Inactive ketoconazole 2 % shampoo RxNorm: 491489 APPLY TO FACE TWICE PER WEE K 12/04/2015 03/31/2016 Inactive benztropine 2 mg tablet RxNorm: 908409 1 Tablet(s) PO BID 11/20/2015 04/14/2016 Inactive cefuroxime axetil 250 mg tablet RxNorm: 473158 1 Tablet(s) PO BID 0 11/13/2015 11/19/2015 Inactive cefuroxime axetil 250 mg tablet RxNorm: 616591 1 Tablet(s) PO BID 0 11/13/2015 11/12/2015 Inactive ketoconazole 2 % shampoo RxNorm: 209670 APPLY TO FACE TWICE PER WEE K 11/08/2015 12/03/2015 Inactive loratadine 10 mg tablet RxNorm: 261780 1 Tablet(s) PO QD 10/16/2015 0 09/16/2016 Inactive [AttnRPh: Saving apply/adjudicate RxGRP: SG20 RxBIN:[id number] RxPCN: ID#:[id number]] docusate sodium 100 mg capsule RxNorm: 5879610 1 Capsule(s) PO BID 10/16/2015 09/17/2016 Inactive [AttnRPh: Saving apply/adjud icate RxGRP:SG20 RxBIN:[id number] RxPCN:HT ID#:[id number]] Plus 27 mg-1 mg tablet RxNorm: 1 Tablet(s) PO QD 10/0109/16/2016 Inactive [AttnRPh: Saving apply/adjud icate RxGRP:SG20 RxBIN:[id number] RxPCN:HT ID#:[id number]] Miralax 17 gram oral powder packet RxNorm: 192755 1 Uni t Dose PO BID in 6-8oz water daily 09/29/2015 09/28/2015 Inactive attnrph: saving apply/adjudicate rxgrp:sg20 rxbin:[id number] rxpcn: id#:[id number] fluticasone 50 mcg/actuation nasal spray,suspension RxNorm: 6908438 USE 1 SPRAY IN EACH NOSTRIL TWICE A DAY 09/12/2015 03/04/2016 Inactive benztropine 2 mg tablet RxNorm: 475331 1 Tablet(s) PO BID 09/11/2015 11/20/2015 Inactive benztropine 2 mg tablet RxNorm: 874925 1 Tablet(s) PO BID 07/25/2015 09/10/2015 Inactive ketoconazole 2 % shampoo RxNorm: 625670 APPLY TO FACE TWICE PER WEE K 07/24/2015 11/07/2015 Inactive Senna-S 8.6 mg-50 mg tablet RxNorm: 502977 TAKE TWO TABLETS ORA LLY TWICE A DAY 07/13/2015 01/14/2016 Inactive ketoconazole 2 % shampoo RxNorm: 155083 APPLY TO FACE TWICE PER WEE K 06/30/2015 07/23/2015 Inactive Miralax 17 gram oral powder packet RxNorm: 446726 1 Uni t Dose PO BID in 6-8oz water daily 06/19/2015 09/29/2015 Inactive attnrph: saving apply/adjudicate rxgrp:sg20 rxbin:[id number] rxpcn: id#:[id number] fluticasone 50 mcg/actuation nasal spray,suspension RxNorm: 637860 1 [place] NASAL BID 05/29/2015 09/11/2015 Inactive Opcon-A 0.52685 %-0.315 % eye drops RxNorm: 8333968 2 Drop(s) OP H PRN as needed 04/26/2015 04/25/2015 Inactive Culturelle 10 billion cell capsule RxNorm: 539550 1 Capsule(s) PO QD prn 04/26/2015 09/21/2019 Inactive calcium carbonate-vitamin D3 600 mg (1,500 mg)-1,000 u nit capsule RxNorm: 8514892 1 Capsule(s) PO QD 04/24/2015 07/06/2015 Inactive Senna-S 8.6 mg-50 mg tablet RxNorm: 313333 TAKE TWO TABLETS ORA LLY TWICE A DAY 04/24/2015 07/12/2015 Inactive ketoconazole 2 % shampoo RxNorm: 390412 1 Application TOP twice weekly to face 04/11/2015 06/29/2015 Inactive Senna-S 8.6 mg-50 mg tablet RxNorm: 903164 2 Tablet(s) PO QD TAKE 2 TABLETS ORALLY TWICE A DAY 01/20/2015 04/23/2015 Inactive out of refill s Miralax 17 gram oral powder packet RxNorm: 703565 1 Uni t Dose PO BID in 6-8oz water daily 11/21/2014 12/13/2020 Inactive attnrph: saving apply/adjudicate rxgrp:sg20 rxbin:034842 rxpcn: id#:[id number] Flonase Allergy Relief 50 mcg/actuation nasal spray,suspensi on RxNorm: 2 [place] NASAL QHS 11/21/2014 07/22/2016 Inactive azithromycin 250 mg tablet RxNorm: 667909 2 Tablet(s) P O on day one, then one tablet on days 2 - 5 11/18/2014 12/20/2014 Inactive azithromycin 250 mg tablet RxNorm: 834580 2 Tablet(s) P O on day one, then one tablet on days 2 - 5 11/17/2014 11/17/2014 Inactive fluticasone 50 mcg/actuation nasal spray,suspension RxNorm: 269051 1 [place] NASAL BID 11/09/2014 11/08/2014 Inactive Plus 27 mg-1 mg tablet RxNorm: 1 Tablet(s) PO QD 10/0110/13/2015 Inactive [AttnRPh: Saving apply/adjud icate RxGRP:SG20 RxBIN:[id number] RxPCN:HT ID#:[id number]] Plus 27 mg-1 mg tablet RxNorm: 1 Tablet(s) PO QD 09/0110/18/2014 Inactive [AttnRPh: Saving apply/adjud icate RxGRP:SG20 RxBIN:[id number] RxPCN:HT ID#:[id number]] nystatin-triamcinolone 100,000 unit/g-0.1 % topical cream RxNorm : 9497036 BID 09/26/2014 10/09/2014 Inactive docusate sodium 100 mg capsule RxNorm: 4120634 1 Capsule(s) PO BID 09/26/2014 10/15/2015 Inactive [AttnRPh: Saving apply/adjud icate RxGRP:SG20 RxBIN:[id number] RxPCN: ID#:[id number]] trihexyphenidyl 2 mg tablet RxNorm: 076353 1 Tablet(s) PO BID 09/2612/20/2014 Inactive Miralax 17 gram oral powder packet RxNorm: 887816 1 Uni t Dose PO BID in 6-8oz water daily 09/26/2014 11/20/2014 Inactive attnrph: saving apply/adjudicate rxgrp:sg20 rxbin:738140 rxpcn: id#:[id number] loratadine 10 mg tablet RxNorm: 283437 Tablet(s) 1 Tabl et(s) PO QD 1 Tablet(s) PO QD 09/26/2014 10/16/2015 Inactive [AttnRPh: Saving apply/adjudicate RxGRP:SG20 RxBIN:[id number] RxPCN:HT ID#:[id number]] ketoconazole 2 % shampoo RxNorm: 396542 1 BIW lather and rinse after 10 min 09/26/2014 04/10/2015 Inactive Calcium + D 600 mg (1,500 mg)-200 unit tablet RxNorm: 027236 1 Tablet(s) PO QD 09/26/2014 09/19/2015 Inactive Senna-S 8.6 mg-50 mg tablet RxNorm: 294978 2 Tablet(s) PO QD TAKE 2 TABLETS ORALLY TWICE A DAY 09/26/2014 01/19/2015 Inactive out of refill s Senna-S 8.6 mg-50 mg tablet RxNorm: 611718 2 Tablet(s) PO QD TAKE 2 TABLETS ORALLY TWICE A DAY 07/20/2014 09/25/2014 Inactive out of refill s [AttnRPh: Saving apply/adjudicate RxGRP:SG20 RxBIN:[id number] RxPCN:HT ID#:[id number]] loratadine 10 mg tablet RxNorm: 100167 1 Tablet(s) PO QD 1 Tabl et(s) PO QD 04/25/2014 09/25/2014 Inactive [AttnRPh: Saving deyanira ly/adjudicate RxGRP:SG20 RxBIN:078770 RxPCN:HT ID#:[id number]] docusate sodium 100 mg capsule RxNorm: 4143696 1 Capsule(s) PO BID 04/04/2014 09/25/2014 Inactive [AttnRPh: Saving apply/adjud icate RxGRP:SG20 RxBIN:047490 RxPCN:HT ID#:[id number]] Senna-S 8.6 mg-50 mg tablet RxNorm: 429086 2 Tablet(s) PO QD TAKE 2 TABLETS ORALLY TWICE A DAY 03/15/2014 07/19/2014 Inactive OUT OF REFILL S [AttnRPh: Saving apply/adjudicate RxGRP:SG20 RxBIN:980881 RxPCN:HT ID#:[id number]] nystatin 100,000 unit/gram topical cream RxNorm: 797259 Applica tion TOP BID 03/15/2014 07/22/2016 Inactive [AttnRPh: Saving deyanira ly/adjudicate RxGRP:SG20 RxBIN:080435 RxPCN:HT ID#:[id number]] Miralax 17 gram oral powder packet RxNorm: 930298 1 Uni t Dose PO BID in 6-8oz water daily 03/15/2014 09/25/2014 Inactive AttnRPh: Saving apply/adjudicate RxGRP:SG20 RxBIN:804708 RxPCN:HT ID#:[id number] [AttnRPh: Saving apply/adjudicate RxGRP:SG20 RxBIN:084674 RxPCN:HT ID#:[id number]] Senna-S 8.6 mg-50 mg tablet RxNorm: 338427 2 Tablet(s) PO QD TAKE 2 TABLETS ORALLY TWICE A DAY 03/09/2014 03/14/2014 Inactive OUT OF REFILL S loratadine 10 mg tablet RxNorm: 390561 1 Tablet(s) PO QD 1 Tabl et(s) PO QD 10/28/2013 04/24/2014 Inactive [AttnRPh: Saving deyanira ly/adjudicate RxGRP:SG20 RxBIN:226747 RxPCN:HT ID#:[id number]] docusate sodium 100 mg capsule RxNorm: 6187695 1 Capsule(s) PO BID 10/21/2013 04/03/2014 Inactive [AttnRPh: Saving apply/adjud icate RxGRP:SG20 RxBIN:765892 RxPCN: ID#:[id number]] Plus 27 mg-1 mg tablet RxNorm: 1 Tablet(s) PO QD 06/201309/25/2014 Inactive [AttnRPh: Saving apply/adjud icate RxGRP:SG20 RxBIN:756410 RxPCN: ID#:[id number]] Calcium + D 600 mg (1,500)-200 unit tablet RxNorm: 711347 1 Tab let(s) PO QD 09/21/2013 09/25/2014 Inactive loratadine 10 mg tablet RxNorm: 213003 1 Tablet(s) PO QD 1 Tabl et(s) PO QD 07/06/2013 10/28/2013 Inactive docusate sodium 100 mg capsule RxNorm: 8647843 1 Capsule(s) PO BID 04/12/2013 10/21/2013 Inactive Senna-S 8.6 mg-50 mg tablet RxNorm: 501827 2 Tablet(s) PO BID 01/0503/09/2014 Inactive loratadine 10 mg tablet RxNorm: 255963 1 Tablet(s) PO QD 01/04/2013 0 07/06/2013 Inactive Senna-S 8.6 mg-50 mg tablet RxNorm: 836833 2 Tablet(s) PO BID 01/0401/04/2013 Inactive loratadine 10 mg tablet RxNorm: 5550374 1 Tablet(s) PO QD 10/05/2012 01/04/2013 Inactive Senna-S 8.6 mg-50 mg tablet RxNorm: 236881 2 Tablet(s) PO BID 10/0501/04/2013 Inactive Calcium + D 600 mg (1,500)-200 unit tablet RxNorm: 011927 1 Tab let(s) PO QD 09/11/2012 09/21/2013 Inactive docusate sodium 100 mg capsule RxNorm: 3864660 1 Capsule(s) PO BID 09/10/2012 03/08/2013 Inactive Plus 27 mg-1 mg tablet RxNorm: 1 Tablet(s) PO QD 08/3109/04/2013 Inactive Senna-S 8.6 mg-50 mg tablet RxNorm: 993911 2 Tablet(s) PO BID 09/1010/04/2012 Inactive loratadine 10 mg tablet RxNorm: 3832185 1 Tablet(s) PO QD 09/10/2012 09/09/2012 Active divalproex ER 500 mg tablet,extended release 24 hr RxNorm: 1 624035 1 Tablet(s) PO BID 09/10/2012 09/21/2019 Inactive Nasonex 50 mcg/actuation [place] RxNorm: 283867 1 [place] NASAL BID 07/22/2016 Inactive Depakote 500 mg tablet,delayed release RxNorm: 0072251 1 Tablet( s) PO BID 08/10/2012 12/20/2014 Inactive loratadine 10 mg tablet RxNorm: 6152043 1 Tablet(s) PO QD 06/29/2012 09/09/2012 Inactive docusate sodium 100 mg capsule RxNorm: 7942670 1 Capsule(s) PO BID 06/29/2012 09/09/2012 Inactive divalproex 250 mg tablet,delayed release RxNorm: 2983228 1 Table t(s) PO QPM 06/08/2012 09/21/2019 Inactive Depakote 500 mg tablet,delayed release RxNorm: 9855056 1 Tablet( s) PO BID 04/13/2012 07/11/2012 Inactive Senna-S 8.6 mg-50 mg tablet RxNorm: 349347 2 Tablet(s) PO BID 03/1604/14/2012 Inactive Plus 27 mg-1 mg tablet RxNorm: 1 Tablet(s) PO QD 01/3109/09/2012 Inactive divalproex ER 500 mg tablet,extended release 24 hr RxNorm: 1 032873 1 Tablet(s) PO BID 02/10/2012 04/09/2012 Inactive divalproex 250 mg tablet,delayed release RxNorm: 8882803 1 Table t(s) PO QPM 09/30/2011 04/26/2012 Inactive Nasonex 50 mcg/actuation [place] RxNorm: 9318199 1 [place] NASAL BID 03/13/2012 Inactive Depakote 500 mg tablet,delayed release RxNorm: 4907062 1 Tablet( s) PO BID 08/14/2011 02/09/2012 Inactive divalproex ER 500 mg tablet,extended release 24 hr RxNorm: 1 049638 1 Tablet(s) PO BID 06/17/2011 08/15/2011 Inactive Benadryl 25 mg Cap RxNorm: 0791629 1 Capsule(s) PO QHS as needed for sinus drainage. May cause drowsiness. 05/23/2011 11/29/2013 Inactive divalproex ER 500 mg 24 hr Tab RxNorm: 3139854 1 Tablet(s) PO BID 0 04/15/2011 06/13/2011 Inactive Nasonex 50 mcg/actuation [place] RxNorm: 2968079 1 [place] NASAL BID 09/15/2011 Inactive Amitiza 24 mcg Cap RxNorm: 667471 1 Capsule(s) PO BID 03/19/201105/01 Inactive Sennalax-S 8.6 mg-50 mg Tab RxNorm: 046340 2 Tablet(s) PO BID 03/1907/16/2011 Inactive Nasonex 50 mcg/Actuation [place] RxNorm: 2302520 1 [place] NASAL BID 03/24/2011 Inactive divalproex 250 mg Tab, Delayed Release RxNorm: 9149831 1 Tablet( s) PO QPM 02/27/2011 09/24/2011 Inactive Plus 27 mg-1 mg tablet RxNorm: 1 Tablet(s) PO QD 02/0105/20/2011 Inactive divalproex ER 500 mg 24 hr Tab RxNorm: 4051948 1 Tablet(s) PO BID 1 04/15/2010 04/12/2011 Inactive Amitiza 24 mcg Cap RxNorm: 200974 1 Capsule(s) PO BID 01/14/201103/03 Inactive Nasonex 50 mcg/Actuation [place] RxNorm: 4458989 1 [place] NASAL BID 03/16/2011 Inactive Depakote 500 mg Tab RxNorm: 0006061 1 Tablet(s) PO BID 09/18/2010 Inactive divalproex 250 mg Tab, Delayed Release RxNorm: 3714295 1 Tablet( s) PO QPM 07/31/2010 02/25/2011 Inactive Amitiza 24 mcg Cap RxNorm: 905058 1 Capsule(s) PO BID 06/19/201001/01 Inactive divalproex ER 500 mg 24 hr Tab RxNorm: 9635762 1 Tablet(s) PO BID 0 03/27/2010 09/22/2010 Inactive Amitiza 24 mcg Cap RxNorm: 613339 1 Capsule(s) PO BID 03/20/201006/01 Inactive Sennalax-S 8.6 mg-50 mg Tab RxNorm: 029018 2 Tablet(s) PO BID 03/2007/17/2010 Inactive divalproex 250 mg Tab, Delayed Release RxNorm: 5772366 1 Tablet( s) PO QPM 03/06/2010 07/30/2010 Inactive Amitiza 24 mcg Cap RxNorm: 772695 1 Capsule(s) PO BID 12/27/200903/03 Inactive Abilify 5 mg Tab RxNorm: 920294 1 Tablet(s) PO QD 12/13/2009 01/01/20 10 Inactive Abilify 5 mg Tab RxNorm: 484873 1 Tablet(s) PO QD 11/23/2009 12/13/19 10 Inactive Nasonex 50 mcg/Actuation [place] RxNorm: 6463625 1 [place] NASAL BID 11/06/2009 Active Divalproex 250 mg Tab, Delayed Release RxNorm: 2117144 1 Tablet( s) PO QHS 10/26/2009 12/31/2009 Inactive Divalproex 250 mg Tab, Delayed Release RxNorm: 2476520 1 Tablet( s) PO QHS 10/26/2009 10/25/2009 Inactive Fluoxetine 10 mg Tab RxNorm: 278790 1 Tablet(s) PO QD 10/26/200912/03 Inactive Abilify 5 mg Tab RxNorm: 847134 1 Tablet(s) PO QD 10/24/2009 11/23/19 10 Inactive Amitiza 24 mcg Cap RxNorm: 216165 1 Capsule(s) PO BID 09/28/200910/02 Inactive divalproex SR 500 mg 24 hr Tab RxNorm: 0930541 1 Tablet(s) PO BID 0 08/31/2009 10/29/2009 Inactive Divalproex SR 500 mg 24 hr Tab RxNorm: 4109365 1 Tablet(s) PO BID 0 08/23/2009 08/30/2009 Inactive Sennalax-S 8.6 mg-50 mg Tab RxNorm: 070986 2 Tablet(s) PO BID 08/1709/15/2009 Inactive Divalproex SR 500 mg 24 hr Tab RxNorm: 1685953 1 Tablet(s) PO BID 0 07/20/2009 08/18/2009 Inactive Clindamycin 300 mg Cap RxNorm: 817841 1 Capsule(s) PO BID 06/23/2009 06/29/2009 Inactive Tylenol Extra Strength 500 mg Tab RxNorm: 204604 Tablet(s) PO PRN Active Pepto-Bismol 262 mg chewable tablet RxNorm: 753456 Tablet(s) PO as needed 07/07/2015 Active Robitussin Cough-Congestion 100 mg/5 mL syrup RxNorm: 419401 Milliliter(s) PO as needed 07/07/2015 Active alprazolam 1 mg tablet RxNorm: 433612 1 Tablet(s) PO QD as needed 0 07/07/2015 12/13/2020 Inactive Opcon-A 0.71886 %-0.315 % Eye Drops RxNorm: 4618953 Drop(s) OPH PRN 04/26/2015 04/25/2015 Inactive Amitiza 24 mcg Cap RxNorm: 545156 1 Capsule(s) PO BID 09/28/200909/01 Inactive Depakote 250 mg Tab RxNorm: 2405978 1 Tablet(s) PO QPM 01/01/2010 Inactive fluticasone 50 mcg/actuation nasal spray,suspension RxNorm: 175669 1 [place] NASAL BID 11/09/2014 11/08/2014 Inactive Mucinex 600 mg tablet, extended release RxNorm: 087062 Tablet(s ) PO as needed 07/07/2015 12/13/2020 Inactive Depakote 500 mg Tab RxNorm: 1239569 1 Tablet(s) PO BID 09/18/2010 Inactive Ketoconazole 2 % Shampoo RxNorm: 755354 1 TOP PRN 09/26/2014 015 Inactive alfalfa 650 mg tablet RxNorm: 225364 1 Tablet(s) PO QID 09/22/2019 Inactive Culturelle 10 billion cell capsule RxNorm: 647626 Capsule(s) PO as needed 09/22/2019 09/21/2019 Inactive bethanechol chloride 50 mg tablet RxNorm: 875861 1 Tablet(s) PO AC & HS 09/22/2019 09/21/2019 Inactive loratadine 10 mg tablet RxNorm: 5393217 1 Tablet(s) PO QD 06/29/2012 06/28/2012 Inactive Senna Concentrate Oral RxNorm: Oral 03/20/2010 03/20/2010 Inact dalia desmopressin 0.2 mg tablet RxNorm: 088561 3 Tablet(s) PO QHS 201707/13/2017 Inactive Fluoxetine 10 mg Tab RxNorm: 950256 1 Tablet(s) PO QD 10/26/200910/02 Inactive azithromycin 250 mg Tab RxNorm: 097969 Tablet(s) PO gm e 2 tablets on day one and one tablet on days 2-5. 10/01/2011 09/30/2011 Inactive Lyrica 25 mg capsule RxNorm: 586303 1 Capsule(s) PO QPM 10/20/2017 Inactive docusate sodium 100 mg capsule RxNorm: 1846048 1 Capsule(s) PO BID 06/29/2012 06/28/2012 Inactive Senna-S 8.6 mg-50 mg tablet RxNorm: 015068 Tablet(s) PO 03/16/2012 Inactive Zithromax Z-Vu 250 mg Tab RxNorm: 519331 Tablet(s) PO 10/01/2011 Inactive as directed ketoconazole 2 % shampoo RxNorm: 693783 1 Application TOP twice weekly to face 04/11/2015 04/10/2015 Inactive Abilify 10 mg Tab RxNorm: 514370 1 Tablet(s) PO QD 11/21/2016 017 Inactive Lyrica 50 mg capsule RxNorm: 934048 1 Capsule(s) PO QAM 07/11/2016 Inactive divalproex 250 mg Tab, Delayed Release RxNorm: 0292332 1 Tablet( s) PO QPM 03/06/2010 03/05/2010 Inactive Flonase 50 mcg/Actuation Nasal [place] RxNorm: 6102834 1 [place] JOSE AL BID 11/22/2010 11/21/2010 Inactive Cerovite Advanced Formula Oral RxNorm: Oral 12/02/2011 12/01/19 Inactive trihexyphenidyl 2 mg tablet RxNorm: 053009 1 Tablet(s) PO BID 09/2609/25/2014 Inactive Culturelle 10 billion cell Cap RxNorm: 084568 1 Capsule(s) PO QD pr n 04/26/2015 04/25/2015 Inactive Flonase Allergy Relief 50 mcg/actuation nasal spray,suspensi on RxNorm: 2 [place] NASAL QHS 11/21/2014 11/20/2014 Inactive trihexyphenidyl 5 mg tablet RxNorm: 456099 1 Tablet(s) PO BID 09/2109/21/2019 Inactive Amitiza 24 mcg Cap RxNorm: 467303 1 Capsule(s) PO QAM 12/27/200912/02 Inactive Milk of Magnesia 400 mg/5 mL oral suspension RxNorm: 520341 30 Milliliter(s) PO QD as needed 06/30/2017 12/13/2020 Inactive Miralax 17 gram oral powder packet RxNorm: 554221 1 Uni t Dose PO QD in 6-8oz water daily 03/15/2014 03/14/2014 Inactive AttnRPh: Saving apply/adjudicate RxGRP:SG20 RxBIN:[id number] RxPCN: ID#:[id number] Calcium + D 600 mg (1,500)-200 unit tablet RxNorm: 129306 1 Tab let(s) PO QD 09/11/2012 09/10/2012 Inactive Flonase 50 mcg/actuation nasal spray,suspension RxNorm: 8963 23 2 [place] NASAL QHS 11/09/2014 11/09/2014 Inactive Benadryl 25 mg capsule RxNorm: 5930036 Capsule(s) PO as needed 08/201512/13/2020 Inactive Nasonex 50 mcg/Actuation [place] RxNorm: 2736233 1 NASAL PRN 010 11/06/2009 Inactive benztropine 2 mg tablet RxNorm: 913218 1 Tablet(s) PO BID 07/25/2015 07/24/2015 Inactive Lamisil AT 1 % topical cream RxNorm: 039714 1 Applicati on TOP BID for 2-4 weeks for athletes foot 07/07/2015 07/06/2015 Inactive Medication Administered No Medication Administered data Immunizations Vaccine Codes Dose Date Status Influenza (Adult) CVX: 141 11/23/2009 Results Observation Observation Code Item Item Code Result Date S ervice Location CANCEL [id number] CANCEL FOOTNOTE 07/25/2010 Unknown Procedures Procedure Codes Date URINALYSIS NONAUTO W/O SCOPE CPT-4: 57714 10/04/2019 [facility] URINE CULTURE/ COLONY COUNT CPT-4: 11750 10/04/19 20 PPPS, subseq visit CPT-4: G0439 09/22/2019 [facility] URINE CULTURE/ COLONY COUNT CPT-4: 25228 01/06/20 19 URINALYSIS NONAUTO W/O SCOPE CPT-4: 42790 01/05/2019 URINALYSIS NONAUTO W/O SCOPE CPT-4: 63009 10/29/2018 [facility] URINE CULTURE/ COLONY COUNT CPT-4: 98551 10/30/19 19 PPPS, subseq visit CPT-4: G0439 09/17/2018 PPPS, subseq visit CPT-4: G0439 08/25/2017 PPPS, subseq visit CPT-4: G0439 03/28/2015 PRESCRIP TRANSMIT VIA ERX SY CPT-4: G8553 11/17/2014 DESTRUCT PREMALG LESION (Cryosurgery) CPT-4: 51733 PRESCRIP TRANSMIT VIA ERX SY CPT-4: G8553 09/26/2014 PRESCRIP TRANSMIT VIA ERX SY CPT-4: G8553 03/15/2014 PPPS, subseq visit CPT-4: G0439 04/27/2013 PRESCRIP TRANSMIT VIA ERX SY CPT-4: G8553 05/23/2011 PRESCRIP TRANSMIT VIA ERX SY CPT-4: G8553 11/22/2010 RML URINE CULTURE/ COLONY COUNT CPT-4: 95758 08/04/19 11 RML URINE CULTURE/ COLONY COUNT CPT-4: 79541 07/24/19 11 URINALYSIS NONAUTO W/O SCOPE CPT-4: 90010 07/23/2010 IMMUNIZATION ADMIN CPT-4: 14160 01/01/2010 TDAP VACCINE 7 YRS/> IM CPT-4: 94922 01/01/2010 FLU VACCINE 3 YRS & > IM UP 64 CPT-4: 95212 0 ADMIN INFLUENZA VIRUS VAC CPT-4: G0008 11/23/2009 PRESCRIP TRANSMIT VIA ERX SY CPT-4: G8553 11/23/2009 Vital Signs Date Vital 04/22/2022 Blood Pressure 1: 126/74 Code: 8480-6 Heart Rate 1: 75 bpm Respiratory Rate: 20 bpm SpO2: 96% Temperature: 36.3 (C) / 97.3 (F) We ight: 174 lbs Code: 59640-4 02/18/2022 Blood Pressure 1: 130/72 Code: 8480-6 Heart Rate 1: 72 bpm Height: 5'9" Code: 8302-2 SpO2: 95% Temperature: 36.3 (C) / 97.3 (F) 02/04/2022 Blood Pressure 1: 117/68 Code: 8480-6 Heart Rate 1: 51 bpm Height: Code: 8302-2 SpO2: 100% Temperature: 35.9 (C) / 96.7 (F) Weight: Code: 80894-0 01/17/2022 Blood Pressure 1: 113/71 Code: 8480-6 BMI: 25.7 Code: 11903-6 Heart Rate 1: 64 bpm Height: 5'9" Code: 8302-2 SpO2: 99% Temperature: 3 6.3 (C) / 97.3 (F) Weight: 174 lbs Code: 27287-8 01/01/2022 Blood Pressure 1: 132/74 Code: 8480-6 BMI: 25.7 Code: 84546-9 Heart Rate 1: 66 bpm Height: 5'9" Code: 8302-2 SpO2: 98% Temperature: 3 6.6 (C) / 97.8 (F) Weight: 174 lbs Code: 22314-2 12/17/2021 Blood Pressure 1: 110/68 Code: 8480-6 BMI: 25.7 Code: 88697-4 Heart Rate 1: 59 bpm Height: 5'9" Code: 8302-2 SpO2: 100% Temperature: 3 6.2 (C) / 97.1 (F) Weight: 174 lbs Code: 77631-6 11/19/2021 Blood Pressure 1: 114/68 Code: 8480-6 Heart Rate 1: 60 bpm Respiratory Rate: 16 bpm SpO2: 96% Temperature: 36.7 (C) / 98.1 (F) We ight: 206 lbs Code: 34743-2 10/16/2021 Blood Pressure 1: 124/80 Code: 8480-6 Heart Rate 1: 76 bpm Respiratory Rate: 20 bpm SpO2: 95% Temperature: 36.8 (C) / 98.2 (F) We ight: 179 lbs 8 oz Code: 18407-7 07/10/2021 Blood Pressure 1: 122/68 Code: 8480-6 [...] 97.8 (F) We ight: 171 lbs Code: 05806-7 05/16/2020 Blood Pressure 1: 122/70 Code: 8480-6 Heart Rate 1: 87 bpm Respiratory Rate: 17 bpm SpO2: 97% Temperature: 36.4 (C) / 97.5 (F) We ight: 260 lbs Code: 49699-8 10/04/2019 Blood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 Azithromycin. Will notify if no improvement. Benadryl at bedtime PRN. 05/23/2011 Appointment: Kiley Wilson WPtel: [address] [place], [place] [phone] ACUTE ILLNESS 05/23/2011 Patient Education: Patient Medication Summary Completed 05/23/2011 Visit Plan: Continue claritin Add Z-pack 11/22/2010 Appointment: Tish Noe WPtel: [address] [place], [place] [phone] [place] [address] FOLLOW UP 11/22/2010 Patient Education: Patient Medication Summary Completed 11/22/2010 Appointment: Tish Noe WPtel: [address] [place], [place] [phone] [facility] 08/03/2010 Patient Education: Patient Medication Summary Completed 08/03/2010 Appointment: Tish Noe WPtel: [address] [place], [place] [phone] [place] [address] 07/23/2010 Patient Education: Patient Medication Summary Completed 07/23/2010 Visit Plan: Cont current meds Repeat lab in 6mos 05/24/2010 Appointment: Tish Noe WPtel: [address] [place] [address] FOLLOW UP 05/24/2010 Patient Education: Patient Medication Summary Completed 05/24/2010 Appointment: Tish Noe WPtel: [address] [place], [place] [phone] [facility] 01/01/2010 Patient Education: Patient Medication Summary Completed 01/01/2010 Appointment: Tish Noe WPtel: [address] [place], [place] [phone] FOLLOW UP 11/23/2009 Patient Education: Patient Medication Summary Completed 11/23/2009 Visit Plan: Check CMP, CBC, TSH, Free T4 , Depakote level, Vit D, B12, Lipids Start Abilify 5mg QD See Psych 10/24/2009 Appointment: Tish Noe WPtel: [address] [place], [place] [phone] ESTABLISHED PATIENT 10/24/2009 Patient Education: Patient Medication Summary Completed 10/24/2009 Visit Plan: Caregiver present states the pt. has not complained of pain or other symptoms. Swelling is present on left upper cheek. Caregiver states the pt. has eaten normally over the last few days. Pt. reports pain with eating. Instructed family day care provider to seek re-eval if symptoms persist or fever appears. OTC Tylenol or Motrin for discomfort recommended. 06/23/2009 Appointment: Kiley Wilson WPtel: [phone] [id number] ACUTE ILLNESS 06/23/2009 Patient Education: Patient Medication Summary Completed 06/23/2009 Referral: Yajaira Corea WPtel: [phone] [facility] [place] [address] [place] Referral Initiated Referral: Gilbert Covarrubias WPtel: [phone] Referral Initiated Referral: Earl Jordan WPtel: [phone] Referral Initiated Instructions Comment Date . 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 Proceed with hearing evaluation [...] days. Pt. reports pain with eating. Instructed family day care provider to seek re-eval if symptoms persist or [...]
--- OUTSIDE RECORDS SUMMARY | 2022-07-03 13:18 | XMS REPORT | CCD ---
Author Author Steve Noe D.O. Organization [facility] Address [address] [place] [address] Phone Care Team Providers Care Laminating Machine Feeder Name Role Phone Tish Noe D.O., PP Unavailable CCM Unavailable Summary Purpose Interface Exchange Insurance Providers Payer name Policy type / Coverage type Covered libertarian ID Effective Begin Date Effective End Date WPS MEDIC[place] PART B [place] Medicare Part B [id number] 2018 Unknown [employer]ETNA [facility] Medicare Part B [id number] Unknown Family history Father Diagnosis Age At Onset *Denies any medical problems Unknown Mother Diagnosis Age At Onset *Denies any medical problems Unknown Social History Social History Element Codes Description Effective Dates Tobacco history SNOMED CT: 326923153 Never smoker 11/17/2014 Marital status Unknown Single [...] Start Date Stop Date Status Fill Instructions Macrobid 100 mg capsule RxNorm: 801389 Take 1 Capsule(s) Oral t wo times a day 05/20/2022 05/29/2022 Active Macrobid 100 mg capsule RxNorm: 516293 1 Capsule(s) Oral two ti mes a day 05/20/2022 05/20/2022 Inactive pregabalin 50 mg capsule RxNorm: 225718 Take 1 Capsule(s) Oral QAM 05/15/2022 05/15/2022 Inactive Stimulant Laxative Plus 8.6 mg-50 mg tablet RxNorm: 596343 TAKE 2 TABLETS BY MOUTH TWICE DAILY 05/13/2022 08/13/2022 Active PLEASE NEW RX+ REFILLS FOR 31 DAYS THANKS Cipro 250 mg tablet RxNorm: 490022 Take 1 Tablet(s) Oral two ti mes a day 04/29/2022 05/08/2022 Inactive Cipro 250 mg tablet RxNorm: 010910 1 Tablet(s) Oral two times a day 04/29/2022 04/29/2022 Inactive Keppra 100 mg/mL oral solution RxNorm: 833374 Take 15 M illiliter(s) Oral two times a day 04/22/2022 08/19/2022 Active omeprazole 40 mg capsule,delayed release RxNorm: 713319 Take 1 Capsule(s) Oral QD 04/15/2022 10/11/2022 Active RX QTT LEFT NOT ENOUGH FOR 93 DAYS PLEASE NEW RX+REFILLS THANKS ketoconazole 2 % shampoo RxNorm: 657105 APPLY TO FACE TWICE PER WEE K 04/10/2022 05/09/2022 Inactive ciclopirox 8 % topical solution RxNorm: 033078 APPLY TO AFFECTED TOENAILS EVERY NIGHT AT BEDTIME OR 8 HOURS BEFORE WASHING 03/26/2022 04/24/2022 Inact dalia aripiprazole 10 mg tablet RxNorm: 981714 Take 1 Tablet(s) Oral HS 0 03/25/2022 05/25/2022 Active RX NEED A NEW RX+REF ILLS FOR 93 DAYS THANKS mirtazapine 15 mg tablet RxNorm: 076717 Take 1 Tablet(s) Oral HS 05/25/2022 Active RX NEED A NEW RX+REF ILLS FOR 93 DAYS THANKS polyethylene glycol 3350 17 gram/dose oral powder RxNorm: 87 6193 DRINK 17 GRAMS MIXED INTO 8 OZS. OF JUICE OR WATER TWICE DAILY 03/25/2022 06/22/2022 Active citalopram 40 mg tablet RxNorm: 798895 Take 1 Tablet(s) Oral QD 05/25/2022 Active RX NEED A NEW RX+REF ILLS FOR 93 DAYS THANKS Keppra 100 mg/mL oral solution RxNorm: 533904 Take 10 M illiliter(s) Oral two times a day 03/25/2022 03/25/2022 Inactive Keppra 100 mg/mL oral solution RxNorm: 313043 Take 10 M illiliter(s) Oral two times a day 03/25/2022 04/21/2022 Inactive lamotrigine 100 mg tablet RxNorm: 857611 Take 1 Tablet(s) Oral two times a day 03/18/2022 04/21/2022 Inactive PLEASE NEW RX+REFIIL S FOR 93 DAYS THANKS PrePlus 27 mg iron-1 mg tablet RxNorm: Take 1 Tablet(s) Oral Q D 03/13/2022 03/19/2023 Active PLEASE NEW RX+REFIILS FOR 93 DAYS THANKS loratadine 10 mg tablet RxNorm: 765883 Take 1 Tablet(s) Oral QD 05/20/2022 Inactive Lamictal 100 mg tablet RxNorm: 442120 Take 1 Tablet(s) Oral two times a day 02/20/2022 02/20/2022 Inactive Keppra 1,000 mg tablet RxNorm: 907154 Take 1 Tablet(s) Oral two times a day 02/18/2022 04/21/2022 Inactive loratadine 10 mg tablet RxNorm: 387489 TAKE 1 TABLET BY MOUTH 2 TIMES DAILY Take 1 Tablet(s) Oral two times a day 02/18/2022 02/19/2022 Inactive PLEASE NEW RX+REFILLS FOR 31 DAYS THANKS cephalexin 500 mg capsule RxNorm: 926562 Take 1 Capsule (s) Oral three times a day 02/18/2022 02/24/2022 Inactive fluticasone propionate 50 mcg/actuation nasal spray,suspensi on RxNorm: 2723596 SPRAY 1 SPRAY INTO EACH NOSTRIL TWICE DAILY 02/12/2022 08/10/2022 Acti ve omeprazole 40 mg capsule,delayed release RxNorm: 750784 Take 1 Capsule(s) Oral QD 02/12/2022 02/12/2022 Inactive Patient reques ts 90 days supply Stimulant Laxative Plus 8.6 mg-50 mg tablet RxNorm: 227311 TAKE 2 TABLETS BY MOUTH TWICE DAILY 02/12/2022 04/21/2022 Inactive PLEASE NEW RX+ REFILLS FOR 31 DAYS THANKS Lamictal 100 mg tablet RxNorm: 349097 Take 1 Tablet(s) Oral two times a day 02/11/2022 02/11/2022 Inactive Lamictal 100 mg tablet RxNorm: 855950 1 Tablet(s) Oral two time s a day 02/11/2022 02/11/2022 Inactive omeprazole 40 mg capsule,delayed release RxNorm: 656763 Take 1 Capsule(s) Oral QD 02/07/2022 02/07/2022 Inactive Patient reques ts 90 days supply Culturelle 10 billion cell capsule RxNorm: 564352 Take 1 Capsul e(s) Oral QD 02/05/2022 04/05/2022 Inactive Keppra 500 mg tablet RxNorm: 569788 Take 1 Tablet(s) Oral QD 202102/17/2022 Inactive Benadryl Allergy 25 mg tablet RxNorm: 9104572 Take 1 Tab let(s) Oral Every 6 hours as needed for hives 01/17/2022 No Stop Date Active pregabalin 50 mg capsule RxNorm: 906356 Take 1 Capsule(s) Oral QAM 01/01/2022 02/04/2022 Inactive pregabalin 25 mg capsule RxNorm: 099012 Take 1 Capsule(s) Oral QAM 01/01/2022 01/01/2022 Inactive Lamictal 100 mg tablet RxNorm: 722572 Take 1 Tablet(s) Oral QD 03/202102/04/2022 Inactive levetiracetam 250 mg tablet RxNorm: 349826 Take 1 Table t(s) Oral two times a day 01/01/2022 01/01/2022 Inactive Keppra 1,000 mg tablet RxNorm: 408887 Take 1 Tablet(s) Oral two times a day replaces 500mg dose 01/01/2022 02/17/2022 Inactive Depakote 500 mg tablet,delayed release RxNorm: 0096032 T willi 1 Tablet(s) Oral two times a day 01/01/2022 01/01/2022 Inactive Augmentin 500 mg-125 mg tablet RxNorm: 563918 1 Tablet(s) Oral two times a day 12/25/2021 12/25/2021 Inactive Augmentin 500 mg-125 mg tablet RxNorm: 679845 Take 1 Ta blet(s) Oral two times a day 12/25/2021 12/29/2021 Inactive Depakote 250 mg tablet,delayed release RxNorm: 3328814 T willi 1 Tablet(s) Oral two times a day for seizure 12/17/2021 12/31/2021 Inactive pregabalin 50 mg capsule RxNorm: 348132 TAKE 1 CAPSULE BY MOUTH EACH MORNING 12/12/2021 12/31/2021 Inactive PLEASE NEW RX+REFILL S FOR 31 DAYS. THANKS pregabalin 25 mg capsule RxNorm: 908068 Take 1 Capsule(s) Oral two times a day 12/12/2021 12/31/2021 Inactive loratadine 10 mg tablet RxNorm: 960251 TAKE 1 TABLET BY MOUTH DAILY 12/08/2021 12/08/2021 Inactive PLEASE NEW RX+REFILLS FOR 31 DAYS THANKS fluticasone propionate 50 mcg/actuation nasal spray,suspensi on RxNorm: 2768703 SPRAY 1 SPRAY INTO EACH NOSTRIL TWICE DAILY 12/04/2021 12/04/2021 Inac tive levetiracetam 1,000 mg tablet RxNorm: 730050 Take 1 Tablet(s) O ral QPM 12/04/2021 12/11/2021 Inactive levetiracetam 750 mg tablet RxNorm: 173015 Take 1 Tablet(s) Oral QA M 12/04/2021 12/11/2021 Inactive levetiracetam 750 mg tablet RxNorm: 060725 Take 1 Tablet(s) Oral QA M 11/26/2021 11/26/2021 Inactive levetiracetam 1,000 mg tablet RxNorm: 153481 Take 1 Tablet(s) O ral QPM 11/26/2021 11/26/2021 Inactive levetiracetam 750 mg tablet RxNorm: 929542 Take 1 Tablet(s) Oral QA M 11/26/2021 12/31/2021 Inactive levetiracetam 1,000 mg tablet RxNorm: 463550 Take 1 Tablet(s) O ral QPM 11/26/2021 12/31/2021 Inactive levetiracetam 750 mg tablet RxNorm: 138983 Take 1 Tablet(s) Oral QA M 11/19/2021 11/26/2021 Inactive melatonin 5 mg tablet RxNorm: 525341 TAKE 1 TABLET BY M OUTH DAILY IN THE EVENING NEEDED FOR SLEEP 11/06/2021 11/06/2021 Inactive melatonin 5 mg tablet RxNorm: 025558 Take 1 Tablet(s) O ral every night at bedtime 11/06/2021 12/31/2021 Inactive Senna Plus 8.6 mg-50 mg tablet RxNorm: 394474 Take 1 Ta blet(s) Oral two times a day 10/16/2021 11/14/2021 Inactive nystatin 100,000 unit/gram topical cream RxNorm: 947031 Apply Application Topical two times a day to lateral foot rash for 2 weeks and as needed for scaling rash 10/16/2021 No Stop Date Active metronidazole 0.75 % lotion RxNorm: 292725 Take Application Top ical QPM to face 10/16/2021 No Stop Date Active pregabalin 25 mg capsule RxNorm: 905332 Take 1 Capsule(s) Oral two times a day 10/16/2021 12/12/2021 Inactive levetiracetam 1,000 mg tablet RxNorm: 965165 Take 1 Tablet(s) O ral QPM 10/16/2021 10/16/2021 Inactive RX QTY LEFT NOT ENOU GH FOR 31 DAYS PLEASE NEW RX+REFILLS THANKS Keppra 500 mg tablet RxNorm: 187764 Take 1 Tablet(s) Or al QAM replaces 1000mg AM dose 10/16/2021 11/26/2021 Inactive polyethylene glycol 3350 17 gram/dose oral powder RxNorm: 87 6193 DRINK 17 GRAMS MIXED INTO 8 OZS. OF JUICE OR WATER TWICE DAILY 10/12/2021 10/12/2021 Inactive ketoconazole 2 % shampoo RxNorm: 794765 APPLY TO FACE TWICE PER WEE K 09/19/2021 09/19/2021 Inactive PrePlus 27 mg iron-1 mg tablet RxNorm: Take 1 Tablet(s) Oral Q D 09/12/2021 11/10/2021 Inactive RX QTY LEFT NOT ENOUGH FOR 9 3 DAYS PLEASE NEW RX+REFILLS THANKS Culturelle 10 billion cell capsule RxNorm: 677098 Take 1 Capsul e(s) Oral QD 09/10/2021 09/10/2021 Inactive Stimulant Laxative Plus 8.6 mg-50 mg tablet RxNorm: 074563 TAKE 2 TABLETS BY MOUTH TWICE DAILY 08/14/2021 10/15/2021 Inactive PLEASE NEW RX+ REFILLS FOR 31 DAYS THANKS pregabalin 50 mg capsule RxNorm: 906666 TAKE 1 CAPSULE BY MOUTH EACH MORNING 07/15/2021 10/15/2021 Inactive PLEASE NEW RX+REFILL S FOR 31 DAYS. THANKS pregabalin 25 mg capsule RxNorm: 615789 Take 1 Capsule(s) Oral HS 0 07/15/2021 10/15/2021 Inactive PLEASE NEW RX+REFILLS FOR 31 DAYS. THANKS levetiracetam 1,000 mg tablet RxNorm: 575339 Take 1 Tab let(s) Oral two times a day 06/11/2021 10/15/2021 Inactive RX QTY LEFT NOT ENOUGH FOR 31 DAYS PLEASE NEW RX+REFILLS THANKS loratadine 10 mg tablet RxNorm: 270344 TAKE 1 TABLET BY MOUTH DAILY 06/11/2021 06/11/2021 Inactive PLEASE NEW RX+REFILLS FOR 31 DAYS. THANKS Keppra 1,000 mg tablet RxNorm: 410186 Take 1 Tablet(s) Oral two times a day 05/08/2021 05/08/2021 Inactive Keppra 1,000 mg tablet RxNorm: 340103 Take 1 Tablet(s) Oral two times a day 05/08/2021 05/07/2021 Inactive ciclopirox 8 % topical solution RxNorm: 995117 Take Top ical QD to the affected area(s)preferably at bedtime or 8 hours before washing--to toenails 05/08/2021 10/15/2021 Inactive melatonin 5 mg capsule RxNorm: 887129 Take 1 Capsule(s) Oral QPM as needed for sleep 04/25/2021 10/21/2021 Inactive polyethylene glycol 3350 17 gram/dose oral powder RxNorm: 87 6193 DRINK 17 GRAMS MIXED INTO 8 OZS. OF JUICE OR WATER TWICE DAILY 04/24/2021 04/24/2021 Inactive Culturelle 10 billion cell capsule RxNorm: 024244 Take 1 Capsul e(s) Oral QD 04/16/2021 04/16/2021 Inactive pregabalin 25 mg capsule RxNorm: 923137 Take 1 Capsule(s) Oral HS 0 04/13/2021 04/13/2021 Inactive PLEASE NEW RX+REFILLS FOR 31 DAYS. THANKS pregabalin 50 mg capsule RxNorm: 525047 TAKE 1 CAPSULE BY MOUTH EACH MORNING 04/13/2021 04/13/2021 Inactive PLEASE NEW RX+REFILL S FOR 31 DAYS. THANKS fluticasone propionate 50 mcg/actuation nasal spray,suspensi on RxNorm: 7085142 SPRAY 1 SPRAY INTO EACH NOSTRIL TWICE DAILY 03/13/2021 03/13/2021 Inac tive polyethylene glycol 3350 17 gram/dose oral powder RxNorm: 87 6193 DRINK 17 GRAMS MIXED INTO 8 OZS. OF JUICE OR WATER TWICE DAILY 03/05/2021 04/03/2021 Inactive Gavilax 17 gram/dose oral powder RxNorm: 677854 DRINK 1 7 GRAMS MIXED INTO 8 OZS. OF JUICE OR WATER TWICE DAILY 02/27/2021 02/27/2021 Inactive Stimulant Laxative Plus 8.6 mg-50 mg tablet RxNorm: 691966 TAKE 2 TABLETS BY MOUTH TWICE DAILY 02/16/2021 02/16/2021 Inactive Tucks (diana grant) 50 % topical pads RxNorm: 268377 Ta ke Application Topical four times a day as needed 02/05/2021 No Stop Date Active citalopram 40 mg tablet RxNorm: 093033 Take 1 Tablet(s) Oral QD 08/202003/25/2022 Inactive Culturelle 10 billion cell capsule RxNorm: 089427 Take 1 Capsul e(s) Oral QD 02/05/2021 04/16/2021 Inactive melatonin 5 mg capsule RxNorm: 941915 Take 1 Capsule(s) Oral QPM as needed for sleep 02/05/2021 02/05/2021 Inactive Keppra 750 mg tablet RxNorm: 784767 Take 1 Tablet(s) Or al two times a day replaces 500mg dose 02/05/2021 05/07/2021 Inactive Keppra 500 mg tablet RxNorm: 767012 Take 1 Tablet(s) Oral two t imes a day 01/17/2021 02/04/2021 Inactive Keppra 500 mg tablet RxNorm: 916587 Take 1 Tablet(s) Oral two t imes a day 01/17/2021 01/17/2021 Inactive Culturelle 10 billion cell capsule RxNorm: 476099 Take 1 Capsule(s) Oral QD as needed 01/16/2021 02/04/2021 Inactive levofloxacin 250 mg tablet RxNorm: 340382 Take 1 Tablet(s) Oral QD 01/04/2021 01/13/2021 Inactive cranberry 450 mg tablet RxNorm: Take 1 Tablet(s) Oral tw o times a day 12/14/2020 No Stop Date Active Gold Rosario Medicated 0.8 %-5 % topical powder RxNorm: 317147 Top ical as needed 12/14/2020 No Stop Date Active hydrocortisone 1 % topical cream RxNorm: 858765 Topical as needed 1 No Stop Date Active Gavilax 17 gram/dose oral powder RxNorm: 525201 Give 17 Gram(s) Oral two times a day in 8 ounces of juice/water 12/14/2020 10/15/2021 Inactive Culturelle 10 billion cell capsule RxNorm: 294359 Take 1 Capsule(s) Oral QD as needed 12/14/2020 01/16/2021 Inactive mirtazapine 15 mg tablet RxNorm: 582353 Take 1 Tablet(s ) Oral every night at bedtime 12/14/2020 03/25/2022 Inactive aripiprazole 10 mg tablet RxNorm: 977193 Take 1 Tablet(s) Oral QD 1 03/25/2022 Inactive pregabalin 25 mg capsule RxNorm: 204820 Take 1 Capsule(s) Oral HS 1 12/13/2020 Inactive loratadine 10 mg tablet RxNorm: 028265 TAKE 1 TABLET BY MOUTH DAILY 12/13/2020 12/13/2020 Inactive pregabalin 50 mg capsule RxNorm: 750632 TAKE 1 CAPSULE BY MOUTH EACH MORNING 12/13/2020 12/13/2020 Inactive Gavilax 17 gram/dose oral powder RxNorm: 781383 DRINK 1 7 GRAMS MIXED INTO 8 OZS. OF JUICE OR WATER TWICE DAILY 12/05/2020 12/13/2020 Inactive fluticasone propionate 50 mcg/actuation nasal spray,suspensi on RxNorm: 8317124 USE 1 SPRAY IN EACH NOSTRIL TWICE DAILY 11/16/2020 11/16/2020 Inactive pregabalin 25 mg capsule RxNorm: 307682 Take 1 Capsule(s) Oral HS 0 11/12/2020 11/12/2020 Inactive pregabalin 50 mg capsule RxNorm: 396795 TAKE 1 CAPSULE BY MOUTH EACH MORNING 11/12/2020 11/12/2020 Inactive Gavilax 17 gram/dose oral powder RxNorm: 484060 DRINK 1 7 GRAMS MIXED INTO 8 OZS. OF JUICE OR WATER TWICE DAILY 10/16/2020 11/14/2020 Inactive PrePlus 27 mg iron-1 mg tablet RxNorm: Take 1 Tablet(s) Oral Q D 10/12/2020 11/11/2020 Inactive pregabalin 50 mg capsule RxNorm: 149311 TAKE 1 CAPSULE BY MOUTH EACH MORNING 10/12/2020 10/12/2020 Inactive Stimulant Laxative Plus 8.6 mg-50 mg tablet RxNorm: 181090 TAKE 2 TABLETS BY MOUTH TWICE DAILY 10/12/2020 10/12/2020 Inactive pregabalin 25 mg capsule RxNorm: 458443 Take 1 Capsule(s) Oral HS 0 10/12/2020 10/12/2020 Inactive loratadine 10 mg tablet RxNorm: 560852 TAKE 1 TABLET BY MOUTH DAILY 09/12/2020 09/12/2020 Inactive ketoconazole 2 % shampoo RxNorm: 364537 1 Application T opical twice weekly to face 07/20/2020 07/20/2020 Inactive OUT OF REFILLS Senna-S 8.6 mg-50 mg tablet RxNorm: 255752 TAKE 2 TABLETS BY MO UT TWICE DAILY 07/17/2020 07/17/2020 Inactive PLEASE NEW RX+REFILL S FOR 31 DAYS. THANKS Miralax 17 gram oral powder packet RxNorm: 063239 TAKE 17 GRAMS MIXED INTO 8 OZS. OF JUICE OR WATER TWICE DAILY 06/27/2020 12/13/2020 Inactive OUT OF REFILLS Lyrica 25 mg capsule RxNorm: 033879 TAKE 1 CAPSULE BY OUT DAILY AT BEDTIME Capsule(s) Oral 06/14/2020 06/14/2020 Inactive Lyrica 50 mg capsule RxNorm: 617244 Capsule(s) Oral GM E 1 CAPSULE BY MOUTH EACH MORNING 06/14/2020 06/14/2020 Inactive fluticasone propionate 50 mcg/actuation nasal spray,suspensi on RxNorm: 5830143 1 [place] Nasal two times a day 06/06/2020 06/06/2020 Inactive OUT OF REFILLS Plus 27 mg-1 mg tablet RxNorm: 1 Tablet(s) PO Q D 1 Tablet(s) Oral QD 05/10/2020 10/15/2021 Inactive Senna-S 8.6 mg-50 mg tablet RxNorm: 266452 TAKE 2 TABLETS BY MO UT TWICE DAILY 04/10/2020 07/11/2020 Inactive PLEASE NEW RX+REFILL S FOR 31 DAYS. THANKS loratadine 10 mg tablet RxNorm: 930142 TAKE 1 TABLET BY MOUTH DAILY 04/10/2020 04/10/2020 Inactive PLEASE NEW RX+REFILLS FOR 31 DAYS. THANKS ketoconazole 2 % shampoo RxNorm: 710286 1 Application T opical twice weekly to face 03/22/2020 07/19/2020 Inactive OUT OF REFILLS Lyrica 50 mg capsule RxNorm: 379129 Capsule(s) Oral GM E 1 CAPSULE BY MOUTH EACH MORNING 02/10/2020 06/12/2020 Inactive Lyrica 25 mg capsule RxNorm: 563652 TAKE 1 CAPSULE BY M OUTH DAILY AT BEDTIME Capsule(s) Oral 02/10/2020 06/08/2020 Inactive Senna-S 8.6 mg-50 mg tablet RxNorm: 215208 TAKE 2 TABLETS BY MO UTH TWICE DAILY 01/13/2020 04/09/2020 Inactive PLEASE NEW RX+REFILL S FOR 31 DAYS. THANKS Miralax 17 gram oral powder packet RxNorm: 992106 TAKE 17 GRAMS MIXED INTO 8 OZS. OF JUICE OR WATER TWICE DAILY 01/10/2020 06/26/2020 Inactive OUT OF REFILLS Miralax 17 gram oral powder packet RxNorm: 925344 TAKE 17 GRAMS MIXED INTO 8 OZS. OF JUICE OR WATER TWICE DAILY 12/15/2019 01/09/2020 Inactive OUT OF REFILLS ketoconazole 2 % shampoo RxNorm: 629590 APPLY TO FACE TWICE PER WEE K 12/09/2019 03/21/2020 Inactive OUT OF REFILLS Plus 27 mg-1 mg tablet RxNorm: 1 Tablet(s) PO Q D 1 Tablet(s) Oral QD 11/17/2019 05/09/2020 Inactive loratadine 10 mg tablet RxNorm: 123898 TAKE 1 TABLET BY MOUTH DAILY 11/17/2019 04/09/2020 Inactive PLEASE NEW RX+REFILLS FOR 31 DAYS. THANKS Lyrica 50 mg capsule RxNorm: 572451 Capsule(s) Oral GM E 1 CAPSULE BY MOUTH EACH MORNING 10/18/2019 02/08/2020 Inactive Lyrica 25 mg capsule RxNorm: 221202 TAKE 1 CAPSULE BY M OUTH DAILY AT BEDTIME Capsule(s) Oral 10/18/2019 02/13/2020 Inactive Senna-S 8.6 mg-50 mg tablet RxNorm: 128898 TAKE 2 TABLETS BY MO UTH TWICE DAILY 10/18/2019 01/12/2020 Inactive PLEASE NEW RX+REFILL S FOR 31 DAYS. THANKS Bactrim DS 800 mg-160 mg tablet RxNorm: 637181 1 Tablet(s) Oral two times a day 10/04/2019 10/10/2019 Inactive Vitamin C 500 mg tablet RxNorm: 755382 1 Tablet(s) Oral QD 09/22/1912/31/2021 Inactive citalopram 10 mg tablet RxNorm: 893572 1 Tablet(s) Oral QD 09/22/1902/04/2021 Inactive omeprazole 40 mg capsule,delayed release RxNorm: 025456 1 Capsule(s) Oral QD for reflux 08/16/2019 09/21/2019 Inactive Clindagel 1 % topical gel, once daily RxNorm: 575999 Ap plication Topical QPM to face rash or prn for rosacea 07/21/2019 12/13/2020 Inactive loratadine 10 mg tablet RxNorm: 570247 TAKE 1 TABLET BY MOUTH DAILY 07/19/2019 11/15/2019 Inactive PLEASE NEW RX+REFILLS FOR 31 DAYS. THANKS Senna-S 8.6 mg-50 mg tablet RxNorm: 560590 TAKE 2 TABLETS BY [facility] TWICE A DAY 07/19/2019 10/17/2019 Inactive PLEASE NEW RX+REFILL S FOR 31 DAYS. THANKS fluticasone propionate 50 mcg/actuation nasal spray,suspensi on RxNorm: 4267385 USE 1 SPRAY IN EACH NOSTRIL TWICE DAILY 07/01/2019 06/05/2020 Inactive OUT OF REFILLS Lyrica 50 mg capsule RxNorm: 669787 Capsule(s) Oral GM E 1 CAPSULE BY MOUTH EACH MORNING 06/16/2019 10/16/2019 Inactive Lyrica 25 mg capsule RxNorm: 612196 TAKE 1 CAPSULE BY M OUTH DAILY AT BEDTIME Capsule(s) Oral 06/16/2019 10/12/2019 Inactive Plus 27 mg-1 mg tablet RxNorm: 1 Tablet(s) PO Q D 1 Tablet(s) Oral QD 2019 11/16/2019 Inactive triamcinolone acetonide 0.025 % topical cream RxNorm: 331239 4 1 Application Topical two times a day apply thin layer to cheeks 05/03/2019 0 Inactive Lyrica 50 mg capsule RxNorm: 316132 Capsule(s) TAKE 1 C APSULE BY MOUTH EACH MORNING 02/22/2019 06/25/2019 Inactive Lyrica 25 mg capsule RxNorm: 763486 TAKE 1 CAPSULE BY MOUTH DOMINICK LY AT BEDTIME 02/22/2019 06/21/2019 Inactive loratadine 10 mg tablet RxNorm: 031569 TAKE 1 TABLET BY MOUTH DAILY 01/21/2019 03/23/2019 Inactive PLEASE NEW RX+REFILLS FOR 31 DAYS. THANKS Senna-S 8.6 mg-50 mg tablet RxNorm: 386127 TAKE 2 TABLETS BY MO UTH TWICE A DAY 01/21/2019 07/18/2019 Inactive PLEASE NEW RX+REFILL S FOR 31 DAYS. THANKS Macrobid 100 mg capsule RxNorm: 795434 1 Capsule(s) Oral two ti mes a day 01/11/2019 01/10/2019 Inactive Macrobid 100 mg capsule RxNorm: 468234 1 Capsule(s) Oral two ti mes a day 01/11/2019 01/21/2019 Inactive Cipro 250 mg tablet RxNorm: 032143 1 Tablet(s) Oral two times a day 01/05/2019 01/12/2019 Inactive Senna-S 8.6 mg-50 mg tablet RxNorm: 739329 TAKE 2 TABLETS BY MO UT TWICE A DAY 12/21/2018 01/20/2019 Inactive NEED A NEW RX+REFILL S PLEASE FOR 31 DAYS. THANKS Plus 27 mg-1 mg tablet RxNorm: 1 Tablet(s) PO QD 11/0205/20/2019 Inactive doxycycline hyclate 100 mg capsule RxNorm: 2522550 1 Cap edison(s) Oral two times a day 11/23/2018 11/30/2018 Inactive doxycycline hyclate 100 mg capsule RxNorm: 7646607 1 Cap edison(s) Oral two times a day 11/23/2018 11/22/2018 Inactive loratadine 10 mg tablet RxNorm: 710051 1 Tablet(s) PO QD 11/23/2018 1 03/22/2018 Inactive doxycycline hyclate 100 mg capsule RxNorm: 3541157 1 Cap edison(s) Oral two times a day 11/23/2018 11/22/2018 Inactive Macrobid 100 mg capsule RxNorm: 776324 1 Capsule(s) PO BID 11/05/19 19 11/10/2018 Inactive Macrobid 100 mg capsule RxNorm: 232379 1 Capsule(s) PO BID 11/05/19 19 11/03/2018 Inactive Bactrim DS 800 mg-160 mg tablet RxNorm: 627101 1 Tablet(s) PO BID 0 10/29/2018 10/28/2018 Inactive Bactrim DS 800 mg-160 mg tablet RxNorm: 388755 1 Tablet(s) PO BID 0 10/29/2018 11/03/2018 Inactive Miralax 17 gram oral powder packet RxNorm: 910366 TAKE 17 GRAMS MIXED INTO 8 OZS. OF JUICE OR WATER TWICE DAILY 10/15/2018 01/15/2019 Inactive OUT OF REFILLS fluconazole 100 mg tablet RxNorm: 304960 1 Tablet(s) PO QD 10/13/1910/18/2018 Inactive clotrimazole-betamethasone 1 %-0.05 % topical cream RxNorm: 949331 Application TOP BID to foot rash for 1-2 weeks 10/12/2018 09/21/2019 Inactive fluticasone propionate 50 mcg/actuation nasal spray,suspensi on RxNorm: 2853547 USE 1 SPRAY IN EACH NOSTRIL TWICE DAILY 09/01/2018 12/29/2018 Inactive Senna-S 8.6 mg-50 mg tablet RxNorm: 800043 TAKE 2 TABLETS BY [facility] TWICE A DAY 08/19/2018 12/20/2018 Inactive nystatin 100,000 unit/gram topical cream RxNorm: 959177 1 Gram( s) TOP BID 08/10/2018 08/09/2018 Inactive acyclovir 800 mg tablet RxNorm: 337871 1 Tablet(s) PO 5x day 201808/09/2018 Inactive nystatin 100,000 unit/gram topical cream RxNorm: 508923 1 Gram( s) TOP BID 08/10/2018 08/19/2018 Inactive acyclovir 800 mg tablet RxNorm: 877095 1 Tablet(s) PO 5x day 201808/16/2018 Inactive Miralax 17 gram oral powder packet RxNorm: 570869 TAKE 17 GRAMS MIXED INTO 8 OZS. OF JUICE OR WATER TWICE DAILY 07/31/2018 10/14/2018 Inactive Lyrica 25 mg capsule RxNorm: 147040 TAKE 1 CAPSULE BY MOUTH DOMINICK LY AT BEDTIME 07/16/2018 08/14/2018 Inactive nystatin 100,000 unit/gram topical powder RxNorm: 463931 1 Application TOP BID to upper thighs for 14 days 06/29/2018 07/12/2018 Inactive nystatin 100,000 unit/gram topical powder RxNorm: 016954 1 Application TOP BID to upper thighs for 14 days 06/29/2018 06/28/2018 Inactive Plus 27 mg-1 mg tablet RxNorm: 1 Tablet(s) PO QD 06/0111/22/2018 Inactive loratadine 10 mg tablet RxNorm: 151594 1 Tablet(s) PO QD 06/16/2018 0 11/22/2018 Inactive Miralax 17 gram oral powder packet RxNorm: 517374 TAKE 17 GRAMS MIXED INTO 8 OZS. OF JUICE OR WATER TWICE DAILY 05/19/2018 07/30/2018 Inactive ketoconazole 2 % shampoo RxNorm: 438493 APPLY TO FACE TWICE PER WEE K 05/04/2018 11/29/2018 Inactive Macrobid 100 mg capsule RxNorm: 254532 1 Capsule(s) PO BID 04/17/1904/16/2018 Inactive Macrobid 100 mg capsule RxNorm: 282710 1 Capsule(s) PO BID 04/17/19 19 04/26/2018 Inactive Zithromax Z-Vu 250 mg tablet RxNorm: 015785 Tablet(s) PO As Di rected 02/26/2018 03/02/2018 Inactive Tessalon Perles 100 mg capsule RxNorm: 561334 1 Capsule (s) PO TID as needed for cough 02/26/2018 01/04/2019 Inactive Senna-S 8.6 mg-50 mg tablet RxNorm: 956083 2 Tablet(s) PO BID 02/1608/14/2018 Inactive Miralax 17 gram oral powder packet RxNorm: 367197 TAKE 17 GRAMS MIXED INTO 8 OZS. OF JUICE OR WATER TWICE DAILY 01/08/2018 04/10/2018 Inactive Miralax 17 gram oral powder packet RxNorm: 873273 1 Tab let(s) PO BID TAKE 17 GRAMS MIXED INTO 8 OZS. OF JUICE OR WATER TWICE DAILY 11/17/20172017 Inactive Miralax 17 gram oral powder packet RxNorm: 563513 1 Tab let(s) PO QD TAKE 17 GRAMS MIXED INTO 8 OZS. OF JUICE OR WATER once DAILY 11/04/2017 Inactive polymyxin B sulfate 10,000 unit-trimethoprim 1 mg/mL eye bandar ps RxNorm: 346964 2 Drop(s) ophthalmic (eye) Q4H while awake 10/29/2017 11/04/2017 Inactiv e Lyrica 25 mg capsule RxNorm: 408645 TAKE 1 CAPSULE BY MOUTH EAC H EVENING 10/20/2017 07/16/2018 Inactive Senna-S 8.6 mg-50 mg tablet RxNorm: 698529 2 Tablet(s) PO BID 10/2002/15/2018 Inactive Lyrica 50 mg capsule RxNorm: 544140 TAKE 1 CAPSULE BY MOUTH EAC H MORNING 10/20/2017 01/20/2018 Inactive loratadine 10 mg tablet RxNorm: 076712 Tablet(s) TAKE 1 TABLET BY MOUTH DAILY 10/20/2017 06/16/2018 Inactive Plus 27 mg-1 mg tablet RxNorm: Tablet(s) TAKE 1 TABLET BY MOUTH DAILY 10/20/2017 06/16/2018 Inactive nystatin 100,000 unit/gram topical cream RxNorm: 288102 Gram(s) TOP BID for 2 weeks 09/16/2017 09/21/2019 Inactive loratadine 10 mg tablet RxNorm: 746827 TAKE 1 TABLET BY MOUTH DAILY 08/18/2017 10/20/2017 Inactive Plus 27 mg-1 mg tablet RxNorm: TAKE 1 TABLET BY MOUTH DAILY 08/18/2017 10/20/2017 Inactive Miralax 17 gram oral powder packet RxNorm: 603011 1 Tab let(s) PO BID TAKE 17 GRAMS MIXED INTO 8 OZS. OF JUICE OR WATER TWICE DAILY 06/13/20172017 Inactive Miralax 17 gram oral powder packet RxNorm: 401468 1 Tab let(s) PO BID TAKE 17 GRAMS MIXED INTO 8 OZS. OF JUICE OR WATER TWICE DAILY 06/13/20172020 Inactive doxycycline hyclate 100 mg capsule RxNorm: 9325522 1 Capsule(s) PO BID 06/06/2017 06/05/2017 Inactive Cipro 250 mg tablet RxNorm: 901393 1 Tablet(s) PO BID 06/06/201706/01 Inactive Cipro 250 mg tablet RxNorm: 977286 1 Tablet(s) PO BID 06/06/201707/2017 Inactive doxycycline hyclate 100 mg capsule RxNorm: 2479699 1 Capsule(s) PO BID 06/06/2017 06/12/2017 Inactive Senna-S 8.6 mg-50 mg tablet RxNorm: 624302 2 Tablet(s) PO BID 05/1910/20/2017 Inactive Miralax 17 gram oral powder packet RxNorm: 726071 1 Tab let(s) PO BID TAKE 17 GRAMS MIXED INTO 8 OZS. OF JUICE OR WATER TWICE DAILY 01/06/20172017 Inactive Senna-S 8.6 mg-50 mg tablet RxNorm: 259930 2 Tablet(s) PO BID 12/1105/19/2017 Inactive Abilify 5 mg tablet RxNorm: 215032 1 Tablet(s) PO QHS 11/21/201612/01 Inactive docusate sodium 100 mg capsule RxNorm: 6035186 1 Capsule(s) PO BID 09/17/2016 09/21/2019 Inactive [AttnRPh: Saving apply/adjud icate RxGRP:SG20 RxBIN:[id number] RxPCN:HT ID#:[id number]] loratadine 10 mg tablet RxNorm: 850026 1 Tablet(s) PO QD 09/17/2016 0 08/17/2017 Inactive [AttnRPh: Saving apply/adjudicate RxGRP: SG20 RxBIN:[id number] RxPCN:HT ID#:[id number]] Plus 27 mg-1 mg tablet RxNorm: 1 Tablet(s) PO QD 08/3108/17/2017 Inactive [AttnRPh: Saving apply/adjud icate RxGRP:SG20 RxBIN:[id number] RxPCN:HT ID#:[id number]] Calcium + D 600 mg (1,500 mg)-200 unit tablet RxNorm: 560799 1 Tablet(s) PO QD 09/17/2016 09/21/2019 Inactive ketoconazole 2 % shampoo RxNorm: 604387 APPLY TO FACE TWICE PER WEE K 08/26/2016 02/21/2017 Inactive fluticasone propionate 50 mcg/actuation nasal spray,suspensi on RxNorm: 9604575 [place] USE 1 SPRAY IN EACH NOSTRIL TWICE A DAY 07/30/2016 01/25/2017 In active Miralax 17 gram oral powder packet RxNorm: 057629 TAKE 17 GRAMS MIXED INTO 8 OZS. OF JUICE OR WATER TWICE DAILY 07/30/2016 01/06/2017 Inactive Senna-S 8.6 mg-50 mg tablet RxNorm: 313497 2 Tablet(s) PO BID 07/1512/10/2016 Inactive Lyrica 50 mg capsule RxNorm: 485213 TAKE 1 CAPSULE BY MOUTH EAC H MORNING 07/11/2016 08/09/2016 Inactive Miralax 17 gram oral powder packet RxNorm: 364729 TAKE 17 GRAMS MIXED INTO 8 OZS. OF JUICE OR WATER TWICE DAILY 07/04/2016 07/29/2016 Inactive Miralax 17 gram oral powder packet RxNorm: 486170 TAKE 17 GRAMS MIXED INTO 8 OZS. OF JUICE OR WATER TWICE DAILY 07/04/2016 08/03/2016 Inactive Miralax 17 gram oral powder packet RxNorm: 549892 TAKE 17 GRAMS MIXED INTO 8 OZS. OF JUICE OR WATER TWICE DAILY 06/13/2016 07/03/2016 Inactive benztropine 2 mg tablet RxNorm: 303700 1 Tablet(s) PO BID 04/15/2016 09/21/2019 Inactive ketoconazole 2 % shampoo RxNorm: 395545 APPLY TO FACE TWICE PER WEE K 04/01/2016 08/25/2016 Inactive ketoconazole 2 % shampoo RxNorm: 665539 APPLY TO FACE TWICE PER WEE K 04/01/2016 12/13/2020 Inactive Miralax 17 gram oral powder packet RxNorm: 165093 TAKE 17 GRAMS MIXED INTO 8 OZS. OF JUICE OR WATER TWICE DAILY 03/29/2016 06/12/2016 Inactive calcium carbonate 600 mg calcium (1,500 mg)-vit D3 1,0 00 unit capsule RxNorm: 8883450 1 Capsule(s) PO QD 03/15/2016 09/17/2016 Inactive fluticasone 50 mcg/actuation nasal spray,suspension RxNorm: 9375218 [place] USE 1 SPRAY IN EACH NOSTRIL TWICE A DAY 03/04/2016 07/29/2016 Inactive Miralax 17 gram oral powder packet RxNorm: 134098 1 Uni t Dose PO BID in 6-8oz water daily 02/28/2016 03/28/2016 Inactive attnrph: saving apply/adjudicate rxgrp:sg20 rxbin:[id number] rxpcn:ht id#:[id number] Senna-S 8.6 mg-50 mg tablet RxNorm: 336787 TAKE TWO TABLETS ORA LLY TWICE A DAY 01/18/2016 07/15/2016 Inactive ketoconazole 2 % shampoo RxNorm: 832063 APPLY TO FACE TWICE PER WEE K 12/04/2015 03/31/2016 Inactive benztropine 2 mg tablet RxNorm: 849820 1 Tablet(s) PO BID 11/20/2015 04/14/2016 Inactive cefuroxime axetil 250 mg tablet RxNorm: 330201 1 Tablet(s) PO BID 0 11/13/2015 11/19/2015 Inactive cefuroxime axetil 250 mg tablet RxNorm: 847639 1 Tablet(s) PO BID 0 11/13/2015 11/12/2015 Inactive ketoconazole 2 % shampoo RxNorm: 711485 APPLY TO FACE TWICE PER WEE K 11/08/2015 12/03/2015 Inactive loratadine 10 mg tablet RxNorm: 152991 1 Tablet(s) PO QD 10/16/2015 0 09/16/2016 Inactive [AttnRPh: Saving apply/adjudicate RxGRP: SG20 RxBIN:[id number] RxPCN:HT ID#:[id number]] docusate sodium 100 mg capsule RxNorm: 2810068 1 Capsule(s) PO BID 10/16/2015 09/17/2016 Inactive [AttnRPh: Saving apply/adjud icate RxGRP:SG20 RxBIN:617336 RxPCN:HT ID#:[id number]] Plus 27 mg-1 mg tablet RxNorm: 1 Tablet(s) PO QD 10/0109/16/2016 Inactive [AttnRPh: Saving apply/adjud icate RxGRP:SG20 RxBIN:[id number] RxPCN: ID#:[id number]] Miralax 17 gram oral powder packet RxNorm: 899181 1 Uni t Dose PO BID in 6-8oz water daily 09/29/2015 09/28/2015 Inactive attnrph: saving apply/adjudicate rxgrp:sg20 rxbin:138906 rxpcn:ht id#:[id number] fluticasone 50 mcg/actuation nasal spray,suspension RxNorm: 0023364 USE 1 SPRAY IN EACH NOSTRIL TWICE A DAY 09/12/2015 03/04/2016 Inactive benztropine 2 mg tablet RxNorm: 955112 1 Tablet(s) PO BID 09/11/2015 11/20/2015 Inactive benztropine 2 mg tablet RxNorm: 648861 1 Tablet(s) PO BID 07/25/2015 09/10/2015 Inactive ketoconazole 2 % shampoo RxNorm: 813171 APPLY TO FACE TWICE PER WEE K 07/24/2015 11/07/2015 Inactive Senna-S 8.6 mg-50 mg tablet RxNorm: 937280 TAKE TWO TABLETS ORA LLY TWICE A DAY 07/13/2015 01/14/2016 Inactive ketoconazole 2 % shampoo RxNorm: 650113 APPLY TO FACE TWICE PER WEE K 06/30/2015 07/23/2015 Inactive Miralax 17 gram oral powder packet RxNorm: 205969 1 Uni t Dose PO BID in 6-8oz water daily 06/19/2015 09/29/2015 Inactive attnrph: saving apply/adjudicate rxgrp:sg20 rxbin:[id number] rxpcn:ht id#:[id number] fluticasone 50 mcg/actuation nasal spray,suspension RxNorm: 145787 1 [place] NASAL BID 05/29/2015 09/11/2015 Inactive Opcon-A 0.52889 %-0.315 % eye drops RxNorm: 7154572 2 Drop(s) OP H PRN as needed 04/26/2015 04/25/2015 Inactive Culturelle 10 billion cell capsule RxNorm: 043204 1 Capsule(s) PO QD prn 04/26/2015 09/21/2019 Inactive calcium carbonate-vitamin D3 600 mg (1,500 mg)-1,000 u nit capsule RxNorm: 1784068 1 Capsule(s) PO QD 04/24/2015 07/06/2015 Inactive Senna-S 8.6 mg-50 mg tablet RxNorm: 266612 TAKE TWO TABLETS ORA LLY TWICE A DAY 04/24/2015 07/12/2015 Inactive ketoconazole 2 % shampoo RxNorm: 432546 1 Application TOP twice weekly to face 04/11/2015 06/29/2015 Inactive Senna-S 8.6 mg-50 mg tablet RxNorm: 669555 2 Tablet(s) PO QD TAKE 2 TABLETS ORALLY TWICE A DAY 01/20/2015 04/23/2015 Inactive out of refill s Miralax 17 gram oral powder packet RxNorm: 455844 1 Uni t Dose PO BID in 6-8oz water daily 11/21/2014 12/13/2020 Inactive attnrph: saving apply/adjudicate rxgrp:sg20 rxbin:[id number] rxpcn: id#:[id number] Flonase Allergy Relief 50 mcg/actuation nasal spray,suspensi on RxNorm: 2 [place] NASAL QHS 11/21/2014 07/22/2016 Inactive azithromycin 250 mg tablet RxNorm: 040426 2 Tablet(s) P O on day one, then one tablet on days 2 - 5 11/18/2014 12/20/2014 Inactive azithromycin 250 mg tablet RxNorm: 171879 2 Tablet(s) P O on day one, then one tablet on days 2 - 5 11/17/2014 11/17/2014 Inactive fluticasone 50 mcg/actuation nasal spray,suspension RxNorm: 521792 1 [place] NASAL BID 11/09/2014 11/08/2014 Inactive Plus 27 mg-1 mg tablet RxNorm: 1 Tablet(s) PO QD 10/0110/13/2015 Inactive [AttnRPh: Saving apply/adjud icate RxGRP:SG20 RxBIN:[id number] RxPCN: ID#:[id number]] Plus 27 mg-1 mg tablet RxNorm: 1 Tablet(s) PO QD 09/0110/18/2014 Inactive [AttnRPh: Saving apply/adjud icate RxGRP:SG20 RxBIN:[id number] RxPCN: ID#:[id number]] nystatin-triamcinolone 100,000 unit/g-0.1 % topical cream RxNorm : 8311259 BID 09/26/2014 10/09/2014 Inactive docusate sodium 100 mg capsule RxNorm: 1238226 1 Capsule(s) PO BID 09/26/2014 10/15/2015 Inactive [AttnRPh: Saving apply/adjud icate RxGRP:SG20 RxBIN:[id number] RxPCN: ID#:[id number]] trihexyphenidyl 2 mg tablet RxNorm: 939567 1 Tablet(s) PO BID 09/2612/20/2014 Inactive Miralax 17 gram oral powder packet RxNorm: 035873 1 Uni t Dose PO BID in 6-8oz water daily 09/26/2014 11/20/2014 Inactive attnrph: saving apply/adjudicate rxgrp:sg20 rxbin:890840 rxpcn: id#:[id number] loratadine 10 mg tablet RxNorm: 953642 Tablet(s) 1 Tabl et(s) PO QD 1 Tablet(s) PO QD 09/26/2014 10/16/2015 Inactive [AttnRPh: Saving apply/adjudicate RxGRP:SG20 RxBIN:206504 RxPCN: ID#:[id number]] ketoconazole 2 % shampoo RxNorm: 573523 1 BIW lather and rinse after 10 min 09/26/2014 04/10/2015 Inactive Calcium + D 600 mg (1,500 mg)-200 unit tablet RxNorm: 951531 1 Tablet(s) PO QD 09/26/2014 09/19/2015 Inactive Senna-S 8.6 mg-50 mg tablet RxNorm: 241062 2 Tablet(s) PO QD TAKE 2 TABLETS ORALLY TWICE A DAY 09/26/2014 01/19/2015 Inactive out of refill s Senna-S 8.6 mg-50 mg tablet RxNorm: 252905 2 Tablet(s) PO QD TAKE 2 TABLETS ORALLY TWICE A DAY 07/20/2014 09/25/2014 Inactive out of refill s [AttnRPh: Saving apply/adjudicate RxGRP:SG20 RxBIN:974524 RxPCN:HT ID#:[id number]] loratadine 10 mg tablet RxNorm: 560704 1 Tablet(s) PO QD 1 Tabl et(s) PO QD 04/25/2014 09/25/2014 Inactive [AttnRPh: Saving deyanira ly/adjudicate RxGRP:SG20 RxBIN:992239 RxPCN:HT ID#:[id number]] docusate sodium 100 mg capsule RxNorm: 9050089 1 Capsule(s) PO BID 04/04/2014 09/25/2014 Inactive [AttnRPh: Saving apply/adjud icate RxGRP:SG20 RxBIN:197842 RxPCN:HT ID#:[id number]] Senna-S 8.6 mg-50 mg tablet RxNorm: 694954 2 Tablet(s) PO QD TAKE 2 TABLETS ORALLY TWICE A DAY 03/15/2014 07/19/2014 Inactive OUT OF REFILL S [AttnRPh: Saving apply/adjudicate RxGRP:SG20 RxBIN:825779 RxPCN:HT ID#:[id number]] nystatin 100,000 unit/gram topical cream RxNorm: 347947 Applica tion TOP BID 03/15/2014 07/22/2016 Inactive [AttnRPh: Saving deyanira ly/adjudicate RxGRP:SG20 RxBIN:954146 RxPCN:HT ID#:[id number]] Miralax 17 gram oral powder packet RxNorm: 091768 1 Uni t Dose PO BID in 6-8oz water daily 03/15/2014 09/25/2014 Inactive AttnRPh: Saving apply/adjudicate RxGRP:SG20 RxBIN:[id number] RxPCN:HT ID#:[id number] [AttnRPh: Saving apply/adjudicate RxGRP:SG20 RxBIN:586100 RxPCN:HT ID#:[id number]] Senna-S 8.6 mg-50 mg tablet RxNorm: 461005 2 Tablet(s) PO QD TAKE 2 TABLETS ORALLY TWICE A DAY 03/09/2014 03/14/2014 Inactive OUT OF REFILL S loratadine 10 mg tablet RxNorm: 662539 1 Tablet(s) PO QD 1 Tabl et(s) PO QD 10/28/2013 04/24/2014 Inactive [AttnRPh: Saving deyanira ly/adjudicate RxGRP:SG20 RxBIN:252006 RxPCN:HT ID#:[id number]] docusate sodium 100 mg capsule RxNorm: 9288532 1 Capsule(s) PO BID 10/21/2013 04/03/2014 Inactive [AttnRPh: Saving apply/adjud icate RxGRP:SG20 RxBIN:888486 RxPCN:HT ID#:[id number]] Plus 27 mg-1 mg tablet RxNorm: 1 Tablet(s) PO QD 06/201309/25/2014 Inactive [AttnRPh: Saving apply/adjud icate RxGRP:SG20 RxBIN:370551 RxPCN:HT ID#:[id number]] Calcium + D 600 mg (1,500)-200 unit tablet RxNorm: 641455 1 Tab let(s) PO QD 09/21/2013 09/25/2014 Inactive loratadine 10 mg tablet RxNorm: 527988 1 Tablet(s) PO QD 1 Tabl et(s) PO QD 07/06/2013 10/28/2013 Inactive docusate sodium 100 mg capsule RxNorm: 1836968 1 Capsule(s) PO BID 04/12/2013 10/21/2013 Inactive Senna-S 8.6 mg-50 mg tablet RxNorm: 479394 2 Tablet(s) PO BID 01/0503/09/2014 Inactive loratadine 10 mg tablet RxNorm: 764229 1 Tablet(s) PO QD 01/04/2013 0 07/06/2013 Inactive Senna-S 8.6 mg-50 mg tablet RxNorm: 779109 2 Tablet(s) PO BID 01/0401/04/2013 Inactive loratadine 10 mg tablet RxNorm: 7632231 1 Tablet(s) PO QD 10/05/2012 01/04/2013 Inactive Senna-S 8.6 mg-50 mg tablet RxNorm: 395487 2 Tablet(s) PO BID 10/0501/04/2013 Inactive Calcium + D 600 mg (1,500)-200 unit tablet RxNorm: 919060 1 Tab let(s) PO QD 09/11/2012 09/21/2013 Inactive docusate sodium 100 mg capsule RxNorm: 6870382 1 Capsule(s) PO BID 09/10/2012 03/08/2013 Inactive Plus 27 mg-1 mg tablet RxNorm: 1 Tablet(s) PO QD 08/3109/04/2013 Inactive Senna-S 8.6 mg-50 mg tablet RxNorm: 965526 2 Tablet(s) PO BID 09/1010/04/2012 Inactive loratadine 10 mg tablet RxNorm: 6784589 1 Tablet(s) PO QD 09/10/2012 09/09/2012 Active divalproex ER 500 mg tablet,extended release 24 hr RxNorm: 1 364203 1 Tablet(s) PO BID 09/10/2012 09/21/2019 Inactive Nasonex 50 mcg/actuation [place] RxNorm: 570310 1 [place] NASAL BID 07/22/2016 Inactive Depakote 500 mg tablet,delayed release RxNorm: 8068490 1 Tablet( s) PO BID 08/10/2012 12/20/2014 Inactive loratadine 10 mg tablet RxNorm: 3405864 1 Tablet(s) PO QD 06/29/2012 09/09/2012 Inactive docusate sodium 100 mg capsule RxNorm: 5671603 1 Capsule(s) PO BID 06/29/2012 09/09/2012 Inactive divalproex 250 mg tablet,delayed release RxNorm: 5871441 1 Table t(s) PO QPM 06/08/2012 09/21/2019 Inactive Depakote 500 mg tablet,delayed release RxNorm: 5427521 1 Tablet( s) PO BID 04/13/2012 07/11/2012 Inactive Senna-S 8.6 mg-50 mg tablet RxNorm: 533249 2 Tablet(s) PO BID 03/1604/14/2012 Inactive Plus 27 mg-1 mg tablet RxNorm: 1 Tablet(s) PO QD 01/3109/09/2012 Inactive divalproex ER 500 mg tablet,extended release 24 hr RxNorm: 1 077016 1 Tablet(s) PO BID 02/10/2012 04/09/2012 Inactive divalproex 250 mg tablet,delayed release RxNorm: 0117749 1 Table t(s) PO QPM 09/30/2011 04/26/2012 Inactive Nasonex 50 mcg/actuation [place] RxNorm: 9327372 1 [place] NASAL BID 03/13/2012 Inactive Depakote 500 mg tablet,delayed release RxNorm: 7164978 1 Tablet( s) PO BID 08/14/2011 02/09/2012 Inactive divalproex ER 500 mg tablet,extended release 24 hr RxNorm: 1 766651 1 Tablet(s) PO BID 06/17/2011 08/15/2011 Inactive Benadryl 25 mg Cap RxNorm: 4472424 1 Capsule(s) PO QHS as needed for sinus drainage. May cause drowsiness. 05/23/2011 11/29/2013 Inactive divalproex ER 500 mg 24 hr Tab RxNorm: 8406187 1 Tablet(s) PO BID 0 04/15/2011 06/13/2011 Inactive Nasonex 50 mcg/actuation [place] RxNorm: 0356248 1 [place] NASAL BID 09/15/2011 Inactive Amitiza 24 mcg Cap RxNorm: 247937 1 Capsule(s) PO BID 03/19/201105/01 Inactive Sennalax-S 8.6 mg-50 mg Tab RxNorm: 789211 2 Tablet(s) PO BID 03/1907/16/2011 Inactive Nasonex 50 mcg/Actuation [place] RxNorm: 9007895 1 [place] NASAL BID 03/24/2011 Inactive divalproex 250 mg Tab, Delayed Release RxNorm: 5606257 1 Tablet( s) PO QPM 02/27/2011 09/24/2011 Inactive Plus 27 mg-1 mg tablet RxNorm: 1 Tablet(s) PO QD 02/0105/20/2011 Inactive divalproex ER 500 mg 24 hr Tab RxNorm: 4832569 1 Tablet(s) PO BID 1 04/15/2010 04/12/2011 Inactive Amitiza 24 mcg Cap RxNorm: 297571 1 Capsule(s) PO BID 01/14/201103/03 Inactive Nasonex 50 mcg/Actuation [place] RxNorm: 6614122 1 [place] NASAL BID 03/16/2011 Inactive Depakote 500 mg Tab RxNorm: 3154390 1 Tablet(s) PO BID 09/18/2010 Inactive divalproex 250 mg Tab, Delayed Release RxNorm: 3240841 1 Tablet( s) PO QPM 07/31/2010 02/25/2011 Inactive Amitiza 24 mcg Cap RxNorm: 837224 1 Capsule(s) PO BID 06/19/201001/01 Inactive divalproex ER 500 mg 24 hr Tab RxNorm: 1139424 1 Tablet(s) PO BID 0 03/27/2010 09/22/2010 Inactive Amitiza 24 mcg Cap RxNorm: 445001 1 Capsule(s) PO BID 03/20/201006/01 Inactive Sennalax-S 8.6 mg-50 mg Tab RxNorm: 521988 2 Tablet(s) PO BID 03/2007/17/2010 Inactive divalproex 250 mg Tab, Delayed Release RxNorm: 6380578 1 Tablet( s) PO QPM 03/06/2010 07/30/2010 Inactive Amitiza 24 mcg Cap RxNorm: 897563 1 Capsule(s) PO BID 12/27/200903/03 Inactive Abilify 5 mg Tab RxNorm: 566110 1 Tablet(s) PO QD 12/13/2009 01/01/20 10 Inactive Abilify 5 mg Tab RxNorm: 230117 1 Tablet(s) PO QD 11/23/2009 12/13/19 10 Inactive Nasonex 50 mcg/Actuation [place] RxNorm: 7364154 1 [place] NASAL BID 11/06/2009 Active Divalproex 250 mg Tab, Delayed Release RxNorm: 1271361 1 Tablet( s) PO QHS 10/26/2009 12/31/2009 Inactive Divalproex 250 mg Tab, Delayed Release RxNorm: 4866106 1 Tablet( s) PO QHS 10/26/2009 10/25/2009 Inactive Fluoxetine 10 mg Tab RxNorm: 091524 1 Tablet(s) PO QD 10/26/200912/03 Inactive Abilify 5 mg Tab RxNorm: 670696 1 Tablet(s) PO QD 10/24/2009 11/23/19 Inactive Amitiza 24 mcg Cap RxNorm: 107488 1 Capsule(s) PO BID 09/28/200910/02 Inactive divalproex SR 500 mg 24 hr Tab RxNorm: 9945101 1 Tablet(s) PO BID 0 08/31/2009 10/29/2009 Inactive Divalproex SR 500 mg 24 hr Tab RxNorm: 0799865 1 Tablet(s) PO BID 0 08/23/2009 08/30/2009 Inactive Sennalax-S 8.6 mg-50 mg Tab RxNorm: 339525 2 Tablet(s) PO BID 08/1709/15/2009 Inactive Divalproex SR 500 mg 24 hr Tab RxNorm: 0150215 1 Tablet(s) PO BID 0 07/20/2009 08/18/2009 Inactive Clindamycin 300 mg Cap RxNorm: 329113 1 Capsule(s) PO BID 06/23/2009 06/29/2009 Inactive Tylenol Extra Strength 500 mg Tab RxNorm: 690816 Tablet(s) PO PRN Active Pepto-Bismol 262 mg chewable tablet RxNorm: 120446 Tablet(s) PO as needed 07/07/2015 Active Robitussin Cough-Congestion 100 mg/5 mL syrup RxNorm: 065955 Milliliter(s) PO as needed 07/07/2015 Active alprazolam 1 mg tablet RxNorm: 001990 1 Tablet(s) PO QD as needed 0 07/07/2015 12/13/2020 Inactive Opcon-A 0.33404 %-0.315 % Eye Drops RxNorm: 8598521 Drop(s) OPH PRN 04/26/2015 04/25/2015 Inactive Amitiza 24 mcg Cap RxNorm: 701590 1 Capsule(s) PO BID 09/28/200909/01 Inactive Depakote 250 mg Tab RxNorm: 4425916 1 Tablet(s) PO QPM 01/01/2010 Inactive fluticasone 50 mcg/actuation nasal spray,suspension RxNorm: 478038 1 [place] NASAL BID 11/09/2014 11/08/2014 Inactive Mucinex 600 mg tablet, extended release RxNorm: 156419 Tablet(s ) PO as needed 07/07/2015 12/13/2020 Inactive Depakote 500 mg Tab RxNorm: 3459592 1 Tablet(s) PO BID 09/18/2010 Inactive Ketoconazole 2 % Shampoo RxNorm: 939841 1 TOP PRN 09/26/2014 015 Inactive alfalfa 650 mg tablet RxNorm: 454579 1 Tablet(s) PO QID 09/22/2019 Inactive Culturelle 10 billion cell capsule RxNorm: 654059 Capsule(s) PO as needed 09/22/2019 09/21/2019 Inactive bethanechol chloride 50 mg tablet RxNorm: 419039 1 Tablet(s) PO AC & HS 09/22/2019 09/21/2019 Inactive loratadine 10 mg tablet RxNorm: 2373044 1 Tablet(s) PO QD 06/29/2012 06/28/2012 Inactive Senna Concentrate Oral RxNorm: Oral 03/20/2010 03/20/2010 Inact dalia desmopressin 0.2 mg tablet RxNorm: 424708 3 Tablet(s) PO QHS 201707/13/2017 Inactive Fluoxetine 10 mg Tab RxNorm: 219581 1 Tablet(s) PO QD 10/26/200910/02 Inactive azithromycin 250 mg Tab RxNorm: 145325 Tablet(s) PO gm e 2 tablets on day one and one tablet on days 2-5. 10/01/2011 09/30/2011 Inactive Lyrica 25 mg capsule RxNorm: 217127 1 Capsule(s) PO QPM 10/20/2017 Inactive docusate sodium 100 mg capsule RxNorm: 8945717 1 Capsule(s) PO BID 06/29/2012 06/28/2012 Inactive Senna-S 8.6 mg-50 mg tablet RxNorm: 717603 Tablet(s) PO 03/16/2012 Inactive Zithromax Z-Vu 250 mg Tab RxNorm: 221823 Tablet(s) PO 10/01/2011 Inactive as directed ketoconazole 2 % shampoo RxNorm: 840996 1 Application TOP twice weekly to face 04/11/2015 04/10/2015 Inactive Abilify 10 mg Tab RxNorm: 371898 1 Tablet(s) PO QD 11/21/2016 017 Inactive Lyrica 50 mg capsule RxNorm: 164109 1 Capsule(s) PO QAM 07/11/2016 Inactive divalproex 250 mg Tab, Delayed Release RxNorm: 7289547 1 Tablet( s) PO QPM 03/06/2010 03/05/2010 Inactive Flonase 50 mcg/Actuation Nasal [place] RxNorm: 9076263 1 [place] JOSE AL BID 11/22/2010 11/21/2010 Inactive Cerovite Advanced Formula Oral RxNorm: Oral 12/02/2011 12/01/19 Inactive trihexyphenidyl 2 mg tablet RxNorm: 273232 1 Tablet(s) PO BID 09/2609/25/2014 Inactive Culturelle 10 billion cell Cap RxNorm: 118863 1 Capsule(s) PO QD pr n 04/26/2015 04/25/2015 Inactive Flonase Allergy Relief 50 mcg/actuation nasal spray,suspensi on RxNorm: 2 [place] NASAL QHS 11/21/2014 11/20/2014 Inactive trihexyphenidyl 5 mg tablet RxNorm: 104423 1 Tablet(s) PO BID 09/2109/21/2019 Inactive Amitiza 24 mcg Cap RxNorm: 882065 1 Capsule(s) PO QAM 12/27/200912/02 Inactive Milk of Magnesia 400 mg/5 mL oral suspension RxNorm: 898465 30 Milliliter(s) PO QD as needed 06/30/2017 12/13/2020 Inactive Miralax 17 gram oral powder packet RxNorm: 995961 1 Uni t Dose PO QD in 6-8oz water daily 03/15/2014 03/14/2014 Inactive AttnRPh: Saving apply/adjudicate RxGRP:SG20 RxBIN:[id number] RxPCN:HT ID#:[id number] Calcium + D 600 mg (1,500)-200 unit tablet RxNorm: 954228 1 Tab let(s) PO QD 09/11/2012 09/10/2012 Inactive Flonase 50 mcg/actuation nasal spray,suspension RxNorm: 8963 23 2 [place] NASAL QHS 11/09/2014 11/09/2014 Inactive Benadryl 25 mg capsule RxNorm: 0117348 Capsule(s) PO as needed 08/201512/13/2020 Inactive Nasonex 50 mcg/Actuation [place] RxNorm: 0625177 1 NASAL PRN 010 11/06/2009 Inactive benztropine 2 mg tablet RxNorm: 165007 1 Tablet(s) PO BID 07/25/2015 07/24/2015 Inactive Lamisil AT 1 % topical cream RxNorm: 099572 1 Applicati on TOP BID for 2-4 weeks for athletes foot 07/07/2015 07/06/2015 Inactive Medication Administered No Medication Administered data Immunizations Vaccine Codes Dose Date Status Influenza (Adult) CVX: 141 11/23/2009 Results Observation Observation Code Item Item Code Result Date S ervice Location CANCEL [id number] CANCEL FOOTNOTE 07/25/2010 Unknown Procedures Procedure Codes Date URINALYSIS NONAUTO W/O SCOPE CPT-4: 97078 10/04/2019 [facility] URINE CULTURE/ COLONY COUNT CPT-4: 25881 10/04/19 20 PPPS, subseq visit CPT-4: G0439 09/22/2019 [facility] URINE CULTURE/ COLONY COUNT CPT-4: 18002 01/06/20 19 URINALYSIS NONAUTO W/O SCOPE CPT-4: 78104 01/05/2019 URINALYSIS NONAUTO W/O SCOPE CPT-4: 93106 10/29/2018 RML URINE CULTURE/ COLONY COUNT CPT-4: 44067 10/30/19 19 PPPS, subseq visit CPT-4: G0439 09/17/2018 PPPS, subseq visit CPT-4: G0439 08/25/2017 PPPS, subseq visit CPT-4: G0439 03/28/2015 PRESCRIP TRANSMIT VIA ERX SY CPT-4: G8553 11/17/2014 DESTRUCT PREMALG LESION (Cryosurgery) CPT-4: 58302 PRESCRIP TRANSMIT VIA ERX SY CPT-4: G8553 09/26/2014 PRESCRIP TRANSMIT VIA ERX SY CPT-4: G8553 03/15/2014 PPPS, subseq visit CPT-4: G0439 04/27/2013 PRESCRIP TRANSMIT VIA ERX SY CPT-4: G8553 05/23/2011 PRESCRIP TRANSMIT VIA ERX SY CPT-4: G8553 11/22/2010 RML URINE CULTURE/ COLONY COUNT CPT-4: 99500 08/04/19 11 RML URINE CULTURE/ COLONY COUNT CPT-4: 01340 07/24/19 11 URINALYSIS NONAUTO W/O SCOPE CPT-4: 29515 07/23/2010 IMMUNIZATION ADMIN CPT-4: 18872 01/01/2010 TDAP VACCINE 7 YRS/> IM CPT-4: 88354 01/01/2010 FLU VACCINE 3 YRS & > IM UP 64 CPT-4: 77987 0 ADMIN INFLUENZA VIRUS VAC CPT-4: G0008 11/23/2009 PRESCRIP TRANSMIT VIA ERX SY CPT-4: G8553 11/23/2009 Vital Signs Date Vital 04/22/2022 Blood Pressure 1: 126/74 Code: 8480-6 Heart Rate 1: 75 bpm Respiratory Rate: 20 bpm SpO2: 96% Temperature: 36.3 (C) / 97.3 (F) We ight: 174 lbs Code: 16056-2 02/18/2022 Blood Pressure 1: 130/72 Code: 8480-6 Heart Rate 1: 72 bpm Height: 5'9" Code: 8302-2 SpO2: 95% Temperature: 36.3 (C) / 97.3 (F) 02/04/2022 Blood Pressure 1: 117/68 Code: 8480-6 Heart Rate 1: 51 bpm Height: Code: 8302-2 SpO2: 100% Temperature: 35.9 (C) / 96.7 (F) Weight: Code: 84416-1 01/17/2022 Blood Pressure 1: 113/71 Code: 8480-6 BMI: 25.7 Code: 57397-1 Heart Rate 1: 64 bpm Height: 5'9" Code: 8302-2 SpO2: 99% Temperature: 3 6.3 (C) / 97.3 (F) Weight: 174 lbs Code: 60908-3 01/01/2022 Blood Pressure 1: 132/74 Code: 8480-6 BMI: 25.7 Code: 41757-4 Heart Rate 1: 66 bpm Height: 5'9" Code: 8302-2 SpO2: 98% Temperature: 3 6.6 (C) / 97.8 (F) Weight: 174 lbs Code: 36754-6 12/17/2021 Blood Pressure 1: 110/68 Code: 8480-6 BMI: 25.7 Code: 34829-5 Heart Rate 1: 59 bpm Height: 5'9" Code: 8302-2 SpO2: 100% Temperature: 3 6.2 (C) / 97.1 (F) Weight: 174 lbs Code: 67254-5 11/19/2021 Blood Pressure 1: 114/68 Code: 8480-6 Heart Rate 1: 60 bpm Respiratory Rate: 16 bpm SpO2: 96% Temperature: 36.7 (C) / 98.1 (F) We ight: 206 lbs Code: 39856-2 10/16/2021 Blood Pressure 1: 124/80 Code: 8480-6 Heart Rate 1: 76 bpm Respiratory Rate: 20 bpm SpO2: 95% Temperature: 36.8 (C) / 98.2 (F) We ight: 179 lbs 8 oz Code: 05461-3 07/10/2021 Blood Pressure 1: 122/68 Code: 8480-6 [...] 97.8 (F) We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 Completed 12/02/2011 Visit Plan: No evidence of parkinson's t remor on exam--discussed parkinson's symptoms with steel fixer 10/01/2011 Appointment: Tish Noetel: [address] [place], [place] [phone] FOLLOW UP 10/01/2011 Patient Education: Patient Medication Summary Completed 10/01/2011 Visit Plan: Proceed with hearing evaluat ion Proceed with repeat CT of head DC Amitiza 07/22/2011 Appointment: Tish Noe WPtel: [facility] [phone] ACUTE ILLNESS 07/22/2011 Patient Education: Patient Medication Summary Completed 07/22/2011 Visit Plan: will continue Loratidine. an d will use Azithromycin. Will notify if no improvement. Brianl at bedtime PRN. 05/23/2011 Appointment: Kiley Wilson WPtel: [address] [place], [place] [phone] ACUTE ILLNESS 05/23/2011 Patient Education: Patient Medication Summary Completed 05/23/2011 Visit Plan: Continue claritin Add Z-pack 11/22/2010 Appointment: Tish Noe WPtel: [address] [place], [place] [phone] FOLLOW UP 11/22/2010 Patient Education: Patient Medication Summary Completed 11/22/2010 Appointment: Tish Noe WPtel: [address] [place], [place] [phone] [facility] 08/03/2010 Patient Education: Patient Medication Summary Completed 08/03/2010 Appointment: Tish Noe WPtel: [address] [place], [place] [phone] [facility] 07/23/2010 Patient Education: Patient Medication Summary Completed 07/23/2010 Visit Plan: Cont current meds Repeat lab in 6mos 05/24/2010 Appointment: Tish Noe WPtel: [address] [place], [place] [phone] FOLLOW UP 05/24/2010 Patient Education: Patient Medication Summary Completed 05/24/2010 Appointment: Tish Noe WPtel: [address] [place], [place] [phone] [facility] 01/01/2010 Patient Education: Patient Medication Summary Completed 01/01/2010 Appointment: Tish Noe WPtel: [address] [place], [place] [phone] FOLLOW UP 11/23/2009 Patient Education: Patient Medication Summary Completed 11/23/2009 Visit Plan: Check CMP, CBC, TSH, Free T4 , Depakote level, Vit D, B12, Lipids Start Abilify 5mg QD See Psych 10/24/2009 Appointment: Tish Noe WPtel: [phone] [phone] ESTABLISHED PATIENT 10/24/2009 Patient Education: Patient Medication Summary Completed 10/24/2009 Visit Plan: Caregiver present states the pt. has not complained of pain or other symptoms. Swelling is present on left upper cheek. Caregiver states the pt. has eaten normally over the last few days. Pt. reports pain with eating. Instructed caretaker to seek re-eval if symptoms persist or fever appears. OTC Tylenol or Motrin for discomfort recommended. 06/23/2009 Appointment: Kiley Wilson WPtel: [address] [place] [phone] ACUTE ILLNESS 06/23/2009 Patient Education: Patient Medication Summary Completed 06/23/2009 Referral: Yajaira Corea WPtel: [phone] Referral Initiated Referral: Gilbert Covarrubias WPtel: [phone] Referral Initiated Referral: Earl Jordan WPtel: [phone] Referral Initiated Instructions Comment Date . [...] tremor on e xam--discussed parkinson's symptoms with steel fixer 10/01/2011 . Proceed with hearing evaluation Proceed [...] days. Pt. reports pain with eating. Instructed caretaker to seek re-eval if symptoms persist or [...]
--- OUTSIDE RECORDS SUMMARY | 2022-07-03 13:19 | XMS REPORT | CCD ---
Author Author Steve Noe D.O. Organization [facility] Address [address] [place] [address] Phone Care Team Providers Care Dryerman/Woman Name Role Phone [facility] PP Unavailable CCM Unavailable Summary Purpose Interface Exchange Insurance Providers Payer name Policy type / Coverage type Covered libertarian ID Effective Begin Date Effective End Date WPS MEDICARE PART B [place] Medicare Part B [id number] 2018 Unknown [facility]ETNA [facility] Medicare Part B [id number] Unknown Family history Father Diagnosis Age At Onset *Denies any medical problems Unknown Mother Diagnosis Age At Onset *Denies any medical problems Unknown Social History Social History Element Codes Description Effective Dates Tobacco history SNOMED CT: 181074565 Never smoker 11/17/2014 Marital status Unknown Single [...] Start Date Stop Date Status Fill Instructions Stimulant Laxative Plus 8.6 mg-50 mg tablet RxNorm: 730681 TAKE 2 TABLETS BY MOUTH TWICE DAILY 05/13/2022 08/13/2022 Active PLEASE NEW RX+ REFILLS FOR 31 DAYS THANKS Cipro 250 mg tablet RxNorm: 094378 Take 1 Tablet(s) Oral two ti mes a day 04/29/2022 05/08/2022 Inactive Cipro 250 mg tablet RxNorm: 475698 1 Tablet(s) Oral two times a day 04/29/2022 04/29/2022 Inactive Keppra 100 mg/mL oral solution RxNorm: 848317 Take 15 M illiliter(s) Oral two times a day 04/22/2022 08/19/2022 Active omeprazole 40 mg capsule,delayed release RxNorm: 141295 Take 1 Capsule(s) Oral QD 04/15/2022 10/11/2022 Active RX QTT LEFT NOT ENOUGH FOR 93 DAYS PLEASE NEW RX+REFILLS THANKS ketoconazole 2 % shampoo RxNorm: 469192 APPLY TO FACE TWICE PER WEE K 04/10/2022 05/09/2022 Inactive ciclopirox 8 % topical solution RxNorm: 612523 APPLY TO AFFECTED TOENAILS EVERY NIGHT AT BEDTIME OR 8 HOURS BEFORE WASHING 03/26/2022 04/24/2022 Inact dalia aripiprazole 10 mg tablet RxNorm: 257542 Take 1 Tablet(s) Oral HS 0 03/25/2022 05/25/2022 Active RX NEED A NEW RX+REF ILLS FOR 93 DAYS THANKS mirtazapine 15 mg tablet RxNorm: 042264 Take 1 Tablet(s) Oral HS 05/25/2022 Active RX NEED A NEW RX+REF ILLS FOR 93 DAYS THANKS polyethylene glycol 3350 17 gram/dose oral powder RxNorm: 87 6193 DRINK 17 GRAMS MIXED INTO 8 OZS. OF JUICE OR WATER TWICE DAILY 03/25/2022 06/22/2022 Active citalopram 40 mg tablet RxNorm: 021354 Take 1 Tablet(s) Oral QD 05/25/2022 Active RX NEED A NEW RX+REF ILLS FOR 93 DAYS THANKS Keppra 100 mg/mL oral solution RxNorm: 696823 Take 10 M illiliter(s) Oral two times a day 03/25/2022 03/25/2022 Inactive Keppra 100 mg/mL oral solution RxNorm: 296320 Take 10 M illiliter(s) Oral two times a day 03/25/2022 04/21/2022 Inactive lamotrigine 100 mg tablet RxNorm: 621391 Take 1 Tablet(s) Oral two times a day 03/18/2022 04/21/2022 Inactive PLEASE NEW RX+REFIIL S FOR 93 DAYS THANKS PrePlus 27 mg iron-1 mg tablet RxNorm: Take 1 Tablet(s) Oral Q D 03/13/2022 03/19/2023 Active PLEASE NEW RX+REFIILS FOR 93 DAYS THANKS loratadine 10 mg tablet RxNorm: 343556 Take 1 Tablet(s) Oral QD 05/20/2022 Active Lamictal 100 mg tablet RxNorm: 668948 Take 1 Tablet(s) Oral two times a day 02/20/2022 02/20/2022 Inactive Keppra 1,000 mg tablet RxNorm: 415077 Take 1 Tablet(s) Oral two times a day 02/18/2022 04/21/2022 Inactive loratadine 10 mg tablet RxNorm: 096530 TAKE 1 TABLET BY MOUTH 2 TIMES DAILY Take 1 Tablet(s) Oral two times a day 02/18/2022 02/19/2022 Inactive PLEASE NEW RX+REFILLS FOR 31 DAYS THANKS cephalexin 500 mg capsule RxNorm: 628952 Take 1 Capsule (s) Oral three times a day 02/18/2022 02/24/2022 Inactive fluticasone propionate 50 mcg/actuation nasal spray,suspensi on RxNorm: 4518333 SPRAY 1 SPRAY INTO EACH NOSTRIL TWICE DAILY 02/12/2022 08/10/2022 Acti ve omeprazole 40 mg capsule,delayed release RxNorm: 556618 Take 1 Capsule(s) Oral QD 02/12/2022 02/12/2022 Inactive Patient reques ts 90 days supply Stimulant Laxative Plus 8.6 mg-50 mg tablet RxNorm: 063876 TAKE 2 TABLETS BY MOUTH TWICE DAILY 02/12/2022 04/21/2022 Inactive PLEASE NEW RX+ REFILLS FOR 31 DAYS THANKS Lamictal 100 mg tablet RxNorm: 309533 Take 1 Tablet(s) Oral two times a day 02/11/2022 02/11/2022 Inactive Lamictal 100 mg tablet RxNorm: 227109 1 Tablet(s) Oral two time s a day 02/11/2022 02/11/2022 Inactive omeprazole 40 mg capsule,delayed release RxNorm: 912730 Take 1 Capsule(s) Oral QD 02/07/2022 02/07/2022 Inactive Patient reques ts 90 days supply Culturelle 10 billion cell capsule RxNorm: 146912 Take 1 Capsul e(s) Oral QD 02/05/2022 04/05/2022 Inactive Keppra 500 mg tablet RxNorm: 808466 Take 1 Tablet(s) Oral QD 202102/17/2022 Inactive Benadryl Allergy 25 mg tablet RxNorm: 0198090 Take 1 Tab let(s) Oral Every 6 hours as needed for hives 01/17/2022 No Stop Date Active pregabalin 50 mg capsule RxNorm: 110809 Take 1 Capsule(s) Oral QAM 01/01/2022 02/04/2022 Inactive pregabalin 25 mg capsule RxNorm: 900963 Take 1 Capsule(s) Oral QAM 01/01/2022 01/01/2022 Inactive Lamictal 100 mg tablet RxNorm: 540301 Take 1 Tablet(s) Oral QD 03/202102/04/2022 Inactive levetiracetam 250 mg tablet RxNorm: 815810 Take 1 Table t(s) Oral two times a day 01/01/2022 01/01/2022 Inactive Keppra 1,000 mg tablet RxNorm: 261421 Take 1 Tablet(s) Oral two times a day replaces 500mg dose 01/01/2022 02/17/2022 Inactive Depakote 500 mg tablet,delayed release RxNorm: 8720386 T willi 1 Tablet(s) Oral two times a day 01/01/2022 01/01/2022 Inactive Augmentin 500 mg-125 mg tablet RxNorm: 510220 1 Tablet(s) Oral two times a day 12/25/2021 12/25/2021 Inactive Augmentin 500 mg-125 mg tablet RxNorm: 616574 Take 1 Ta blet(s) Oral two times a day 12/25/2021 12/29/2021 Inactive Depakote 250 mg tablet,delayed release RxNorm: 2674390 T willi 1 Tablet(s) Oral two times a day for seizure 12/17/2021 12/31/2021 Inactive pregabalin 50 mg capsule RxNorm: 590451 TAKE 1 CAPSULE BY MOUTH EACH MORNING 12/12/2021 12/31/2021 Inactive PLEASE NEW RX+REFILL S FOR 31 DAYS. THANKS pregabalin 25 mg capsule RxNorm: 055941 Take 1 Capsule(s) Oral two times a day 12/12/2021 12/31/2021 Inactive loratadine 10 mg tablet RxNorm: 727203 TAKE 1 TABLET BY MOUTH DAILY 12/08/2021 12/08/2021 Inactive PLEASE NEW RX+REFILLS FOR 31 DAYS THANKS fluticasone propionate 50 mcg/actuation nasal spray,suspensi on RxNorm: 0584083 SPRAY 1 SPRAY INTO EACH NOSTRIL TWICE DAILY 12/04/2021 12/04/2021 Inac tive levetiracetam 1,000 mg tablet RxNorm: 844039 Take 1 Tablet(s) O ral QPM 12/04/2021 12/11/2021 Inactive levetiracetam 750 mg tablet RxNorm: 048719 Take 1 Tablet(s) Oral QA M 12/04/2021 12/11/2021 Inactive levetiracetam 750 mg tablet RxNorm: 943431 Take 1 Tablet(s) Oral QA M 11/26/2021 11/26/2021 Inactive levetiracetam 1,000 mg tablet RxNorm: 852289 Take 1 Tablet(s) O ral QPM 11/26/2021 11/26/2021 Inactive levetiracetam 750 mg tablet RxNorm: 397124 Take 1 Tablet(s) Oral QA M 11/26/2021 12/31/2021 Inactive levetiracetam 1,000 mg tablet RxNorm: 782441 Take 1 Tablet(s) O ral QPM 11/26/2021 12/31/2021 Inactive levetiracetam 750 mg tablet RxNorm: 905339 Take 1 Tablet(s) Oral QA M 11/19/2021 11/26/2021 Inactive melatonin 5 mg tablet RxNorm: 569235 TAKE 1 TABLET BY M OUTH DAILY IN THE EVENING NEEDED FOR SLEEP 11/06/2021 11/06/2021 Inactive melatonin 5 mg tablet RxNorm: 741215 Take 1 Tablet(s) O ral every night at bedtime 11/06/2021 12/31/2021 Inactive Senna Plus 8.6 mg-50 mg tablet RxNorm: 205448 Take 1 Ta blet(s) Oral two times a day 10/16/2021 11/14/2021 Inactive nystatin 100,000 unit/gram topical cream RxNorm: 734864 Apply Application Topical two times a day to lateral foot rash for 2 weeks and as needed for scaling rash 10/16/2021 No Stop Date Active metronidazole 0.75 % lotion RxNorm: 954294 Take Application Top ical QPM to face 10/16/2021 No Stop Date Active pregabalin 25 mg capsule RxNorm: 739525 Take 1 Capsule(s) Oral two times a day 10/16/2021 12/12/2021 Inactive levetiracetam 1,000 mg tablet RxNorm: 438608 Take 1 Tablet(s) O ral QPM 10/16/2021 10/16/2021 Inactive RX QTY LEFT NOT ENOU GH FOR 31 DAYS PLEASE NEW RX+REFILLS THANKS Keppra 500 mg tablet RxNorm: 317085 Take 1 Tablet(s) Or al QAM replaces 1000mg AM dose 10/16/2021 11/26/2021 Inactive polyethylene glycol 3350 17 gram/dose oral powder RxNorm: 87 6193 DRINK 17 GRAMS MIXED INTO 8 OZS. OF JUICE OR WATER TWICE DAILY 10/12/2021 10/12/2021 Inactive ketoconazole 2 % shampoo RxNorm: 339044 APPLY TO FACE TWICE PER WEE K 09/19/2021 09/19/2021 Inactive PrePlus 27 mg iron-1 mg tablet RxNorm: Take 1 Tablet(s) Oral Q D 09/12/2021 11/10/2021 Inactive RX QTY LEFT NOT ENOUGH FOR 9 3 DAYS PLEASE NEW RX+REFILLS THANKS Culturelle 10 billion cell capsule RxNorm: 285571 Take 1 Capsul e(s) Oral QD 09/10/2021 09/10/2021 Inactive Stimulant Laxative Plus 8.6 mg-50 mg tablet RxNorm: 192126 TAKE 2 TABLETS BY MOUTH TWICE DAILY 08/14/2021 10/15/2021 Inactive PLEASE NEW RX+ REFILLS FOR 31 DAYS THANKS pregabalin 50 mg capsule RxNorm: 246550 TAKE 1 CAPSULE BY MOUTH EACH MORNING 07/15/2021 10/15/2021 Inactive PLEASE NEW RX+REFILL S FOR 31 DAYS. THANKS pregabalin 25 mg capsule RxNorm: 132567 Take 1 Capsule(s) Oral HS 0 07/15/2021 10/15/2021 Inactive PLEASE NEW RX+REFILLS FOR 31 DAYS. THANKS levetiracetam 1,000 mg tablet RxNorm: 771146 Take 1 Tab let(s) Oral two times a day 06/11/2021 10/15/2021 Inactive RX QTY LEFT NOT ENOUGH FOR 31 DAYS PLEASE NEW RX+REFILLS THANKS loratadine 10 mg tablet RxNorm: 303107 TAKE 1 TABLET BY MOUTH DAILY 06/11/2021 06/11/2021 Inactive PLEASE NEW RX+REFILLS FOR 31 DAYS. THANKS Keppra 1,000 mg tablet RxNorm: 341661 Take 1 Tablet(s) Oral two times a day 05/08/2021 05/08/2021 Inactive Keppra 1,000 mg tablet RxNorm: 691901 Take 1 Tablet(s) Oral two times a day 05/08/2021 05/07/2021 Inactive ciclopirox 8 % topical solution RxNorm: 983411 Take Top ical QD to the affected area(s)preferably at bedtime or 8 hours before washing--to toenails 05/08/2021 10/15/2021 Inactive melatonin 5 mg capsule RxNorm: 630113 Take 1 Capsule(s) Oral QPM as needed for sleep 04/25/2021 10/21/2021 Inactive polyethylene glycol 3350 17 gram/dose oral powder RxNorm: 87 6193 DRINK 17 GRAMS MIXED INTO 8 OZS. OF JUICE OR WATER TWICE DAILY 04/24/2021 04/24/2021 Inactive Culturelle 10 billion cell capsule RxNorm: 250560 Take 1 Capsul e(s) Oral QD 04/16/2021 04/16/2021 Inactive pregabalin 25 mg capsule RxNorm: 654444 Take 1 Capsule(s) Oral HS 0 04/13/2021 04/13/2021 Inactive PLEASE NEW RX+REFILLS FOR 31 DAYS. THANKS pregabalin 50 mg capsule RxNorm: 386169 TAKE 1 CAPSULE BY MOUTH EACH MORNING 04/13/2021 04/13/2021 Inactive PLEASE NEW RX+REFILL S FOR 31 DAYS. THANKS fluticasone propionate 50 mcg/actuation nasal spray,suspensi on RxNorm: 6498184 SPRAY 1 SPRAY INTO EACH NOSTRIL TWICE DAILY 03/13/2021 03/13/2021 Inac tive polyethylene glycol 3350 17 gram/dose oral powder RxNorm: 87 6193 DRINK 17 GRAMS MIXED INTO 8 OZS. OF JUICE OR WATER TWICE DAILY 03/05/2021 04/03/2021 Inactive Gavilax 17 gram/dose oral powder RxNorm: 739622 DRINK 1 7 GRAMS MIXED INTO 8 OZS. OF JUICE OR WATER TWICE DAILY 02/27/2021 02/27/2021 Inactive Stimulant Laxative Plus 8.6 mg-50 mg tablet RxNorm: 494491 TAKE 2 TABLETS BY MOUTH TWICE DAILY 02/16/2021 02/16/2021 Inactive Tucks (diana juanita) 50 % topical pads RxNorm: 054854 Ta ke Application Topical four times a day as needed 02/05/2021 No Stop Date Active citalopram 40 mg tablet RxNorm: 264773 Take 1 Tablet(s) Oral QD 08/202003/25/2022 Inactive Culturelle 10 billion cell capsule RxNorm: 513075 Take 1 Capsul e(s) Oral QD 02/05/2021 04/16/2021 Inactive melatonin 5 mg capsule RxNorm: 072113 Take 1 Capsule(s) Oral QPM as needed for sleep 02/05/2021 02/05/2021 Inactive Keppra 750 mg tablet RxNorm: 654365 Take 1 Tablet(s) Or al two times a day replaces 500mg dose 02/05/2021 05/07/2021 Inactive Keppra 500 mg tablet RxNorm: 762002 Take 1 Tablet(s) Oral two t imes a day 01/17/2021 02/04/2021 Inactive Keppra 500 mg tablet RxNorm: 178019 Take 1 Tablet(s) Oral two t imes a day 01/17/2021 01/17/2021 Inactive Culturelle 10 billion cell capsule RxNorm: 932860 Take 1 Capsule(s) Oral QD as needed 01/16/2021 02/04/2021 Inactive levofloxacin 250 mg tablet RxNorm: 196304 Take 1 Tablet(s) Oral QD 01/04/2021 01/13/2021 Inactive cranberry 450 mg tablet RxNorm: Take 1 Tablet(s) Oral tw o times a day 12/14/2020 No Stop Date Active Gold Rosario Medicated 0.8 %-5 % topical powder RxNorm: 146397 Top ical as needed 12/14/2020 No Stop Date Active hydrocortisone 1 % topical cream RxNorm: 766250 Topical as needed 1 No Stop Date Active Gavilax 17 gram/dose oral powder RxNorm: 678132 Give 17 Gram(s) Oral two times a day in 8 ounces of juice/water 12/14/2020 10/15/2021 Inactive Culturelle 10 billion cell capsule RxNorm: 930016 Take 1 Capsule(s) Oral QD as needed 12/14/2020 01/16/2021 Inactive mirtazapine 15 mg tablet RxNorm: 098436 Take 1 Tablet(s ) Oral every night at bedtime 12/14/2020 03/25/2022 Inactive aripiprazole 10 mg tablet RxNorm: 742611 Take 1 Tablet(s) Oral QD 1 03/25/2022 Inactive pregabalin 25 mg capsule RxNorm: 306115 Take 1 Capsule(s) Oral HS 1 12/13/2020 Inactive loratadine 10 mg tablet RxNorm: 934488 TAKE 1 TABLET BY MOUTH DAILY 12/13/2020 12/13/2020 Inactive pregabalin 50 mg capsule RxNorm: 236860 TAKE 1 CAPSULE BY MOUTH EACH MORNING 12/13/2020 12/13/2020 Inactive Gavilax 17 gram/dose oral powder RxNorm: 638530 DRINK 1 7 GRAMS MIXED INTO 8 OZS. OF JUICE OR WATER TWICE DAILY 12/05/2020 12/13/2020 Inactive fluticasone propionate 50 mcg/actuation nasal spray,suspensi on RxNorm: 1573785 USE 1 SPRAY IN EACH NOSTRIL TWICE DAILY 11/16/2020 11/16/2020 Inactive pregabalin 25 mg capsule RxNorm: 687006 Take 1 Capsule(s) Oral HS 0 11/12/2020 11/12/2020 Inactive pregabalin 50 mg capsule RxNorm: 042325 TAKE 1 CAPSULE BY MOUTH EACH MORNING 11/12/2020 11/12/2020 Inactive Gavilax 17 gram/dose oral powder RxNorm: 930489 DRINK 1 7 GRAMS MIXED INTO 8 OZS. OF JUICE OR WATER TWICE DAILY 10/16/2020 11/14/2020 Inactive PrePlus 27 mg iron-1 mg tablet RxNorm: Take 1 Tablet(s) Oral Q D 10/12/2020 11/11/2020 Inactive pregabalin 50 mg capsule RxNorm: 045947 TAKE 1 CAPSULE BY MOUTH EACH MORNING 10/12/2020 10/12/2020 Inactive Stimulant Laxative Plus 8.6 mg-50 mg tablet RxNorm: 211560 TAKE 2 TABLETS BY MOUTH TWICE DAILY 10/12/2020 10/12/2020 Inactive pregabalin 25 mg capsule RxNorm: 028148 Take 1 Capsule(s) Oral HS 0 10/12/2020 10/12/2020 Inactive loratadine 10 mg tablet RxNorm: 527576 TAKE 1 TABLET BY MOUTH DAILY 09/12/2020 09/12/2020 Inactive ketoconazole 2 % shampoo RxNorm: 575565 1 Application T opical twice weekly to face 07/20/2020 07/20/2020 Inactive OUT OF REFILLS Senna-S 8.6 mg-50 mg tablet RxNorm: 374814 TAKE 2 TABLETS BY MO UTH TWICE DAILY 07/17/2020 07/17/2020 Inactive PLEASE NEW RX+REFILL S FOR 31 DAYS. THANKS Miralax 17 gram oral powder packet RxNorm: 337175 TAKE 17 GRAMS MIXED INTO 8 OZS. OF JUICE OR WATER TWICE DAILY 06/27/2020 12/13/2020 Inactive OUT OF REFILLS Lyrica 25 mg capsule RxNorm: 825404 TAKE 1 CAPSULE BY M OUTH DAILY AT BEDTIME Capsule(s) Oral 06/14/2020 06/14/2020 Inactive Lyrica 50 mg capsule RxNorm: 906539 Capsule(s) Oral GM E 1 CAPSULE BY MOUTH EACH MORNING 06/14/2020 06/14/2020 Inactive fluticasone propionate 50 mcg/actuation nasal spray,suspensi on RxNorm: 9416999 1 [place] Nasal two times a day 06/06/2020 06/06/2020 Inactive OUT OF REFILLS Plus 27 mg-1 mg tablet RxNorm: 1 Tablet(s) PO Q D 1 Tablet(s) Oral QD 05/10/2020 10/15/2021 Inactive Senna-S 8.6 mg-50 mg tablet RxNorm: 067471 TAKE 2 TABLETS BY MO UT TWICE DAILY 04/10/2020 07/11/2020 Inactive PLEASE NEW RX+REFILL S FOR 31 DAYS. THANKS loratadine 10 mg tablet RxNorm: 121291 TAKE 1 TABLET BY MOUTH DAILY 04/10/2020 04/10/2020 Inactive PLEASE NEW RX+REFILLS FOR 31 DAYS. THANKS ketoconazole 2 % shampoo RxNorm: 544006 1 Application T opical twice weekly to face 03/22/2020 07/19/2020 Inactive OUT OF REFILLS Lyrica 50 mg capsule RxNorm: 522897 Capsule(s) Oral GM E 1 CAPSULE BY MOUTH EACH MORNING 02/10/2020 06/12/2020 Inactive Lyrica 25 mg capsule RxNorm: 618557 TAKE 1 CAPSULE BY M OUTH DAILY AT BEDTIME Capsule(s) Oral 02/10/2020 06/08/2020 Inactive Senna-S 8.6 mg-50 mg tablet RxNorm: 993463 TAKE 2 TABLETS BY MO UT TWICE DAILY 01/13/2020 04/09/2020 Inactive PLEASE NEW RX+REFILL S FOR 31 DAYS. THANKS Miralax 17 gram oral powder packet RxNorm: 117710 TAKE 17 GRAMS MIXED INTO 8 OZS. OF JUICE OR WATER TWICE DAILY 01/10/2020 06/26/2020 Inactive OUT OF REFILLS Miralax 17 gram oral powder packet RxNorm: 042118 TAKE 17 GRAMS MIXED INTO 8 OZS. OF JUICE OR WATER TWICE DAILY 12/15/2019 01/09/2020 Inactive OUT OF REFILLS ketoconazole 2 % shampoo RxNorm: 918960 APPLY TO FACE TWICE PER WEE K 12/09/2019 03/21/2020 Inactive OUT OF REFILLS Plus 27 mg-1 mg tablet RxNorm: 1 Tablet(s) PO Q D 1 Tablet(s) Oral QD 11/17/2019 05/09/2020 Inactive loratadine 10 mg tablet RxNorm: 763073 TAKE 1 TABLET BY MOUTH DAILY 11/17/2019 04/09/2020 Inactive PLEASE NEW RX+REFILLS FOR 31 DAYS. THANKS Lyrica 50 mg capsule RxNorm: 953715 Capsule(s) Oral GM E 1 CAPSULE BY MOUTH EACH MORNING 10/18/2019 02/08/2020 Inactive Lyrica 25 mg capsule RxNorm: 245801 TAKE 1 CAPSULE BY M OUTH DAILY AT BEDTIME Capsule(s) Oral 10/18/2019 02/13/2020 Inactive Senna-S 8.6 mg-50 mg tablet RxNorm: 100423 TAKE 2 TABLETS BY [facility] TWICE DAILY 10/18/2019 01/12/2020 Inactive PLEASE NEW RX+REFILL S FOR 31 DAYS. THANKS Bactrim DS 800 mg-160 mg tablet RxNorm: 291685 1 Tablet(s) Oral two times a day 10/04/2019 10/10/2019 Inactive Vitamin C 500 mg tablet RxNorm: 684430 1 Tablet(s) Oral QD 09/22/19 20 12/31/2021 Inactive citalopram 10 mg tablet RxNorm: 118482 1 Tablet(s) Oral QD 09/22/19 20 02/04/2021 Inactive omeprazole 40 mg capsule,delayed release RxNorm: 694894 1 Capsule(s) Oral QD for reflux 08/16/2019 09/21/2019 Inactive Clindagel 1 % topical gel, once daily RxNorm: 396361 Ap plication Topical QPM to face rash or prn for rosacea 07/21/2019 12/13/2020 Inactive loratadine 10 mg tablet RxNorm: 597431 TAKE 1 TABLET BY MOUTH DAILY 07/19/2019 11/15/2019 Inactive PLEASE NEW RX+REFILLS FOR 31 DAYS. THANKS Senna-S 8.6 mg-50 mg tablet RxNorm: 525422 TAKE 2 TABLETS BY MO UTH TWICE A DAY 07/19/2019 10/17/2019 Inactive PLEASE NEW RX+REFILL S FOR 31 DAYS. THANKS fluticasone propionate 50 mcg/actuation nasal spray,suspensi on RxNorm: 2501575 USE 1 SPRAY IN EACH NOSTRIL TWICE DAILY 07/01/2019 06/05/2020 Inactive OUT OF REFILLS Lyrica 50 mg capsule RxNorm: 566250 Capsule(s) Oral GM E 1 CAPSULE BY MOUTH EACH MORNING 06/16/2019 10/16/2019 Inactive Lyrica 25 mg capsule RxNorm: 918192 TAKE 1 CAPSULE BY M OUTH DAILY AT BEDTIME Capsule(s) Oral 06/16/2019 10/12/2019 Inactive Plus 27 mg-1 mg tablet RxNorm: 1 Tablet(s) PO Q D 1 Tablet(s) Oral QD 2019 11/16/2019 Inactive triamcinolone acetonide 0.025 % topical cream RxNorm: 919882 4 1 Application Topical two times a day apply thin layer to cheeks 05/03/2019 0 Inactive Lyrica 50 mg capsule RxNorm: 887233 Capsule(s) TAKE 1 C APSULE BY MOUTH EACH MORNING 02/22/2019 06/25/2019 Inactive Lyrica 25 mg capsule RxNorm: 267900 TAKE 1 CAPSULE BY MOUTH DOMINICK LY AT BEDTIME 02/22/2019 06/21/2019 Inactive loratadine 10 mg tablet RxNorm: 961840 TAKE 1 TABLET BY MOUTH DAILY 01/21/2019 03/23/2019 Inactive PLEASE NEW RX+REFILLS FOR 31 DAYS. THANKS Senna-S 8.6 mg-50 mg tablet RxNorm: 550176 TAKE 2 TABLETS BY MO UT TWICE A DAY 01/21/2019 07/18/2019 Inactive PLEASE NEW RX+REFILL S FOR 31 DAYS. THANKS Macrobid 100 mg capsule RxNorm: 773946 1 Capsule(s) Oral two ti mes a day 01/11/2019 01/10/2019 Inactive Macrobid 100 mg capsule RxNorm: 317186 1 Capsule(s) Oral two ti mes a day 01/11/2019 01/21/2019 Inactive Cipro 250 mg tablet RxNorm: 072128 1 Tablet(s) Oral two times a day 01/05/2019 01/12/2019 Inactive Senna-S 8.6 mg-50 mg tablet RxNorm: 423511 TAKE 2 TABLETS BY [facility] TWICE A DAY 12/21/2018 01/20/2019 Inactive NEED A NEW RX+REFILL S PLEASE FOR 31 DAYS. THANKS Plus 27 mg-1 mg tablet RxNorm: 1 Tablet(s) PO QD 11/0205/20/2019 Inactive doxycycline hyclate 100 mg capsule RxNorm: 8665658 1 Cap edison(s) Oral two times a day 11/23/2018 11/30/2018 Inactive doxycycline hyclate 100 mg capsule RxNorm: 6596619 1 Cap edison(s) Oral two times a day 11/23/2018 11/22/2018 Inactive loratadine 10 mg tablet RxNorm: 722949 1 Tablet(s) PO QD 11/23/201803/22/2018 Inactive doxycycline hyclate 100 mg capsule RxNorm: 5867250 1 Cap edison(s) Oral two times a day 11/23/2018 11/22/2018 Inactive Macrobid 100 mg capsule RxNorm: 166800 1 Capsule(s) PO BID 11/05/1911/10/2018 Inactive Macrobid 100 mg capsule RxNorm: 149778 1 Capsule(s) PO BID 11/05/1911/03/2018 Inactive Bactrim DS 800 mg-160 mg tablet RxNorm: 628225 1 Tablet(s) PO BID 0 10/29/2018 10/28/2018 Inactive Bactrim DS 800 mg-160 mg tablet RxNorm: 261103 1 Tablet(s) PO BID 0 10/29/2018 11/03/2018 Inactive Miralax 17 gram oral powder packet RxNorm: 359344 TAKE 17 GRAMS MIXED INTO 8 OZS. OF JUICE OR WATER TWICE DAILY 10/15/2018 01/15/2019 Inactive OUT OF REFILLS fluconazole 100 mg tablet RxNorm: 161089 1 Tablet(s) PO QD 10/13/19 19 10/18/2018 Inactive clotrimazole-betamethasone 1 %-0.05 % topical cream RxNorm: 266339 Application TOP BID to foot rash for 1-2 weeks 10/12/2018 09/21/2019 Inactive fluticasone propionate 50 mcg/actuation nasal spray,suspensi on RxNorm: 3655698 USE 1 SPRAY IN EACH NOSTRIL TWICE DAILY 09/01/2018 12/29/2018 Inactive Senna-S 8.6 mg-50 mg tablet RxNorm: 714931 TAKE 2 TABLETS BY [facility] TWICE A DAY 08/19/2018 12/20/2018 Inactive nystatin 100,000 unit/gram topical cream RxNorm: 886096 1 Gram( s) TOP BID 08/10/2018 08/09/2018 Inactive acyclovir 800 mg tablet RxNorm: 776837 1 Tablet(s) PO 5x day 201808/09/2018 Inactive nystatin 100,000 unit/gram topical cream RxNorm: 114231 1 Gram( s) TOP BID 08/10/2018 08/19/2018 Inactive acyclovir 800 mg tablet RxNorm: 141382 1 Tablet(s) PO 5x day 201808/16/2018 Inactive Miralax 17 gram oral powder packet RxNorm: 928936 TAKE 17 GRAMS MIXED INTO 8 OZS. OF JUICE OR WATER TWICE DAILY 07/31/2018 10/14/2018 Inactive Lyrica 25 mg capsule RxNorm: 260783 TAKE 1 CAPSULE BY MOUTH DOMINICK LY AT BEDTIME 07/16/2018 08/14/2018 Inactive nystatin 100,000 unit/gram topical powder RxNorm: 054084 1 Application TOP BID to upper thighs for 14 days 06/29/2018 07/12/2018 Inactive nystatin 100,000 unit/gram topical powder RxNorm: 581489 1 Application TOP BID to upper thighs for 14 days 06/29/2018 06/28/2018 Inactive Plus 27 mg-1 mg tablet RxNorm: 1 Tablet(s) PO QD 06/0111/22/2018 Inactive loratadine 10 mg tablet RxNorm: 365105 1 Tablet(s) PO QD 06/16/2018 0 11/22/2018 Inactive Miralax 17 gram oral powder packet RxNorm: 383116 TAKE 17 GRAMS MIXED INTO 8 OZS. OF JUICE OR WATER TWICE DAILY 05/19/2018 07/30/2018 Inactive ketoconazole 2 % shampoo RxNorm: 989483 APPLY TO FACE TWICE PER WEE K 05/04/2018 11/29/2018 Inactive Macrobid 100 mg capsule RxNorm: 955344 1 Capsule(s) PO BID 04/17/1904/16/2018 Inactive Macrobid 100 mg capsule RxNorm: 452271 1 Capsule(s) PO BID 04/17/1904/26/2018 Inactive Zithromax Z-Vu 250 mg tablet RxNorm: 223723 Tablet(s) PO As Di rected 02/26/2018 03/02/2018 Inactive Tessalon Perles 100 mg capsule RxNorm: 256991 1 Capsule (s) PO TID as needed for cough 02/26/2018 01/04/2019 Inactive Senna-S 8.6 mg-50 mg tablet RxNorm: 518406 2 Tablet(s) PO BID 02/1608/14/2018 Inactive Miralax 17 gram oral powder packet RxNorm: 528683 TAKE 17 GRAMS MIXED INTO 8 OZS. OF JUICE OR WATER TWICE DAILY 01/08/2018 04/10/2018 Inactive Miralax 17 gram oral powder packet RxNorm: 489743 1 Tab let(s) PO BID TAKE 17 GRAMS MIXED INTO 8 OZS. OF JUICE OR WATER TWICE DAILY 11/17/20172017 Inactive Miralax 17 gram oral powder packet RxNorm: 119541 1 Tab let(s) PO QD TAKE 17 GRAMS MIXED INTO 8 OZS. OF JUICE OR WATER once DAILY 11/04/2017 021 Inactive polymyxin B sulfate 10,000 unit-trimethoprim 1 mg/mL eye bandar ps RxNorm: 063433 2 Drop(s) ophthalmic (eye) Q4H while awake 10/29/2017 11/04/2017 Inactiv e Lyrica 25 mg capsule RxNorm: 320510 TAKE 1 CAPSULE BY MOUTH EAC H EVENING 10/20/2017 07/16/2018 Inactive Senna-S 8.6 mg-50 mg tablet RxNorm: 078301 2 Tablet(s) PO BID 10/2002/15/2018 Inactive Lyrica 50 mg capsule RxNorm: 513953 TAKE 1 CAPSULE BY MOUTH EAC H MORNING 10/20/2017 01/20/2018 Inactive loratadine 10 mg tablet RxNorm: 168655 Tablet(s) TAKE 1 TABLET BY MOUTH DAILY 10/20/2017 06/16/2018 Inactive Plus 27 mg-1 mg tablet RxNorm: Tablet(s) TAKE 1 TABLET BY MOUTH DAILY 10/20/2017 06/16/2018 Inactive nystatin 100,000 unit/gram topical cream RxNorm: 999357 Gram(s) TOP BID for 2 weeks 09/16/2017 09/21/2019 Inactive loratadine 10 mg tablet RxNorm: 494405 TAKE 1 TABLET BY MOUTH DAILY 08/18/2017 10/20/2017 Inactive Plus 27 mg-1 mg tablet RxNorm: TAKE 1 TABLET BY MOUTH DAILY 08/18/2017 10/20/2017 Inactive Miralax 17 gram oral powder packet RxNorm: 809116 1 Tab let(s) PO BID TAKE 17 GRAMS MIXED INTO 8 OZS. OF JUICE OR WATER TWICE DAILY 06/13/20172017 Inactive Miralax 17 gram oral powder packet RxNorm: 425760 1 Tab let(s) PO BID TAKE 17 GRAMS MIXED INTO 8 OZS. OF JUICE OR WATER TWICE DAILY 06/13/20172020 Inactive doxycycline hyclate 100 mg capsule RxNorm: 3220954 1 Capsule(s) PO BID 06/06/2017 06/05/2017 Inactive Cipro 250 mg tablet RxNorm: 449790 1 Tablet(s) PO BID 06/06/201706/01 Inactive Cipro 250 mg tablet RxNorm: 080311 1 Tablet(s) PO BID 06/06/201707/2017 Inactive doxycycline hyclate 100 mg capsule RxNorm: 9889460 1 Capsule(s) PO BID 06/06/2017 06/12/2017 Inactive Senna-S 8.6 mg-50 mg tablet RxNorm: 756180 2 Tablet(s) PO BID 05/1910/20/2017 Inactive Miralax 17 gram oral powder packet RxNorm: 430994 1 Tab let(s) PO BID TAKE 17 GRAMS MIXED INTO 8 OZS. OF JUICE OR WATER TWICE DAILY 01/06/20172017 Inactive Senna-S 8.6 mg-50 mg tablet RxNorm: 834884 2 Tablet(s) PO BID 12/1105/19/2017 Inactive Abilify 5 mg tablet RxNorm: 429611 1 Tablet(s) PO QHS 11/21/201612/01 Inactive docusate sodium 100 mg capsule RxNorm: 4086487 1 Capsule(s) PO BID 09/17/2016 09/21/2019 Inactive [AttnRPh: Saving apply/adjud icate RxGRP:SG20 RxBIN:[id number] RxPCN: ID#:[id number]] loratadine 10 mg tablet RxNorm: 719264 1 Tablet(s) PO QD 09/17/2016 0 08/17/2017 Inactive [AttnRPh: Saving apply/adjudicate RxGRP: SG20 RxBIN:[id number] RxPCN: ID#:[id number]] Plus 27 mg-1 mg tablet RxNorm: 1 Tablet(s) PO QD 08/3108/17/2017 Inactive [AttnRPh: Saving apply/adjud icate RxGRP:SG20 RxBIN:[id number] RxPCN: ID#:[id number]] Calcium + D 600 mg (1,500 mg)-200 unit tablet RxNorm: 808242 1 Tablet(s) PO QD 09/17/2016 09/21/2019 Inactive ketoconazole 2 % shampoo RxNorm: 726045 APPLY TO FACE TWICE PER WEE K 08/26/2016 02/21/2017 Inactive fluticasone propionate 50 mcg/actuation nasal spray,suspensi on RxNorm: 4934764 [place] USE 1 SPRAY IN EACH NOSTRIL TWICE A DAY 07/30/2016 01/25/2017 In active Miralax 17 gram oral powder packet RxNorm: 447457 TAKE 17 GRAMS MIXED INTO 8 OZS. OF JUICE OR WATER TWICE DAILY 07/30/2016 01/06/2017 Inactive Senna-S 8.6 mg-50 mg tablet RxNorm: 335223 2 Tablet(s) PO BID 07/1512/10/2016 Inactive Lyrica 50 mg capsule RxNorm: 946724 TAKE 1 CAPSULE BY MOUTH EAC H MORNING 07/11/2016 08/09/2016 Inactive Miralax 17 gram oral powder packet RxNorm: 450544 TAKE 17 GRAMS MIXED INTO 8 OZS. OF JUICE OR WATER TWICE DAILY 07/04/2016 07/29/2016 Inactive Miralax 17 gram oral powder packet RxNorm: 131574 TAKE 17 GRAMS MIXED INTO 8 OZS. OF JUICE OR WATER TWICE DAILY 07/04/2016 08/03/2016 Inactive Miralax 17 gram oral powder packet RxNorm: 076342 TAKE 17 GRAMS MIXED INTO 8 OZS. OF JUICE OR WATER TWICE DAILY 06/13/2016 07/03/2016 Inactive benztropine 2 mg tablet RxNorm: 831989 1 Tablet(s) PO BID 04/15/2016 09/21/2019 Inactive ketoconazole 2 % shampoo RxNorm: 726176 APPLY TO FACE TWICE PER WEE K 04/01/2016 08/25/2016 Inactive ketoconazole 2 % shampoo RxNorm: 804151 APPLY TO FACE TWICE PER WEE K 04/01/2016 12/13/2020 Inactive Miralax 17 gram oral powder packet RxNorm: 036811 TAKE 17 GRAMS MIXED INTO 8 OZS. OF JUICE OR WATER TWICE DAILY 03/29/2016 06/12/2016 Inactive calcium carbonate 600 mg calcium (1,500 mg)-vit D3 1,0 00 unit capsule RxNorm: 3486227 1 Capsule(s) PO QD 03/15/2016 09/17/2016 Inactive fluticasone 50 mcg/actuation nasal spray,suspension RxNorm: 0899475 [place] USE 1 SPRAY IN EACH NOSTRIL TWICE A DAY 03/04/2016 07/29/2016 Inactive Miralax 17 gram oral powder packet RxNorm: 464299 1 Uni t Dose PO BID in 6-8oz water daily 02/28/2016 03/28/2016 Inactive attnrph: saving apply/adjudicate rxgrp:sg20 rxbin:[id number] rxpcn: id#:[id number] Senna-S 8.6 mg-50 mg tablet RxNorm: 527374 TAKE TWO TABLETS ORA LLY TWICE A DAY 01/18/2016 07/15/2016 Inactive ketoconazole 2 % shampoo RxNorm: 859124 APPLY TO FACE TWICE PER WEE K 12/04/2015 03/31/2016 Inactive benztropine 2 mg tablet RxNorm: 693339 1 Tablet(s) PO BID 11/20/2015 04/14/2016 Inactive cefuroxime axetil 250 mg tablet RxNorm: 123419 1 Tablet(s) PO BID 0 11/13/2015 11/19/2015 Inactive cefuroxime axetil 250 mg tablet RxNorm: 028137 1 Tablet(s) PO BID 0 11/13/2015 11/12/2015 Inactive ketoconazole 2 % shampoo RxNorm: 342154 APPLY TO FACE TWICE PER WEE K 11/08/2015 12/03/2015 Inactive loratadine 10 mg tablet RxNorm: 154068 1 Tablet(s) PO QD 10/16/2015 0 09/16/2016 Inactive [AttnRPh: Saving apply/adjudicate RxGRP: SG20 RxBIN:[id number] RxPCN: ID#:[id number]] docusate sodium 100 mg capsule RxNorm: 4466938 1 Capsule(s) PO BID 10/16/2015 09/17/2016 Inactive [AttnRPh: Saving apply/adjud icate RxGRP:SG20 RxBIN:[id number] RxPCN:HT ID#:[id number]] Plus 27 mg-1 mg tablet RxNorm: 1 Tablet(s) PO QD 10/0109/16/2016 Inactive [AttnRPh: Saving apply/adjud icate RxGRP:SG20 RxBIN:[id number] RxPCN:HT ID#:[id number]] Miralax 17 gram oral powder packet RxNorm: 700771 1 Uni t Dose PO BID in 6-8oz water daily 09/29/2015 09/28/2015 Inactive attnrph: saving apply/adjudicate rxgrp:sg20 rxbin:[id number] rxpcn:ht id#:[id number] fluticasone 50 mcg/actuation nasal spray,suspension RxNorm: 7068614 USE 1 SPRAY IN EACH NOSTRIL TWICE A DAY 09/12/2015 03/04/2016 Inactive benztropine 2 mg tablet RxNorm: 042092 1 Tablet(s) PO BID 09/11/2015 11/20/2015 Inactive benztropine 2 mg tablet RxNorm: 959408 1 Tablet(s) PO BID 07/25/2015 09/10/2015 Inactive ketoconazole 2 % shampoo RxNorm: 150315 APPLY TO FACE TWICE PER WEE K 07/24/2015 11/07/2015 Inactive Senna-S 8.6 mg-50 mg tablet RxNorm: 177319 TAKE TWO TABLETS ORA LLY TWICE A DAY 07/13/2015 01/14/2016 Inactive ketoconazole 2 % shampoo RxNorm: 273789 APPLY TO FACE TWICE PER WEE K 06/30/2015 07/23/2015 Inactive Miralax 17 gram oral powder packet RxNorm: 082672 1 Uni t Dose PO BID in 6-8oz water daily 06/19/2015 09/29/2015 Inactive attnrph: saving apply/adjudicate rxgrp:sg20 rxbin:525695 rxn: id#:[id number] fluticasone 50 mcg/actuation nasal spray,suspension RxNorm: 518479 1 [place] NASAL BID 05/29/2015 09/11/2015 Inactive Opcon-A 0.08696 %-0.315 % eye drops RxNorm: 6713704 2 Drop(s) OP H PRN as needed 04/26/2015 04/25/2015 Inactive Culturelle 10 billion cell capsule RxNorm: 357859 1 Capsule(s) PO QD prn 04/26/2015 09/21/2019 Inactive calcium carbonate-vitamin D3 600 mg (1,500 mg)-1,000 u nit capsule RxNorm: 9847523 1 Capsule(s) PO QD 04/24/2015 07/06/2015 Inactive Senna-S 8.6 mg-50 mg tablet RxNorm: 791193 TAKE TWO TABLETS ORA LLY TWICE A DAY 04/24/2015 07/12/2015 Inactive ketoconazole 2 % shampoo RxNorm: 401566 1 Application TOP twice weekly to face 04/11/2015 06/29/2015 Inactive Senna-S 8.6 mg-50 mg tablet RxNorm: 843682 2 Tablet(s) PO QD TAKE 2 TABLETS ORALLY TWICE A DAY 01/20/2015 04/23/2015 Inactive out of refill s Miralax 17 gram oral powder packet RxNorm: 315917 1 Uni t Dose PO BID in 6-8oz water daily 11/21/2014 12/13/2020 Inactive attnrph: saving apply/adjudicate rxgrp:sg20 rxbin:[id number] rxpcn: id#:[id number] Flonase Allergy Relief 50 mcg/actuation nasal spray,suspensi on RxNorm: 2 [place] NASAL QHS 11/21/2014 07/22/2016 Inactive azithromycin 250 mg tablet RxNorm: 347082 2 Tablet(s) P O on day one, then one tablet on days 2 - 5 11/18/2014 12/20/2014 Inactive azithromycin 250 mg tablet RxNorm: 215565 2 Tablet(s) P O on day one, then one tablet on days 2 - 5 11/17/2014 11/17/2014 Inactive fluticasone 50 mcg/actuation nasal spray,suspension RxNorm: 863305 1 [place] NASAL BID 11/09/2014 11/08/2014 Inactive Plus 27 mg-1 mg tablet RxNorm: 1 Tablet(s) PO QD 10/0110/13/2015 Inactive [AttnRPh: Saving apply/adjud icate RxGRP:SG20 RxBIN:[id number] RxPCN:HT ID#:[id number]] Plus 27 mg-1 mg tablet RxNorm: 1 Tablet(s) PO QD 09/0110/18/2014 Inactive [AttnRPh: Saving apply/adjud icate RxGRP:SG20 RxBIN:[id number] RxPCN:HT ID#:[id number]] nystatin-triamcinolone 100,000 unit/g-0.1 % topical cream RxNorm : 8217112 BID 09/26/2014 10/09/2014 Inactive docusate sodium 100 mg capsule RxNorm: 5725575 1 Capsule(s) PO BID 09/26/2014 10/15/2015 Inactive [AttnRPh: Saving apply/adjud icate RxGRP:SG20 RxBIN:[id number] RxPCN:HT ID#:[id number]] trihexyphenidyl 2 mg tablet RxNorm: 968226 1 Tablet(s) PO BID 09/2612/20/2014 Inactive Miralax 17 gram oral powder packet RxNorm: 053787 1 Uni t Dose PO BID in 6-8oz water daily 09/26/2014 11/20/2014 Inactive attnrph: saving apply/adjudicate rxgrp:sg20 rxbin:424470 rxpcn:ht id#:[id number] loratadine 10 mg tablet RxNorm: 203500 Tablet(s) 1 Tabl et(s) PO QD 1 Tablet(s) PO QD 09/26/2014 10/16/2015 Inactive [AttnRPh: Saving apply/adjudicate RxGRP:SG20 RxBIN:[id number] RxPCN:HT ID#:[id number]] ketoconazole 2 % shampoo RxNorm: 054461 1 BIW lather and rinse after 10 min 09/26/2014 04/10/2015 Inactive Calcium + D 600 mg (1,500 mg)-200 unit tablet RxNorm: 425254 1 Tablet(s) PO QD 09/26/2014 09/19/2015 Inactive Senna-S 8.6 mg-50 mg tablet RxNorm: 856839 2 Tablet(s) PO QD TAKE 2 TABLETS ORALLY TWICE A DAY 09/26/2014 01/19/2015 Inactive out of refill s Senna-S 8.6 mg-50 mg tablet RxNorm: 876319 2 Tablet(s) PO QD TAKE 2 TABLETS ORALLY TWICE A DAY 07/20/2014 09/25/2014 Inactive out of refill s [AttnRPh: Saving apply/adjudicate RxGRP:SG20 RxBIN:[id number] RxPCN:HT ID#:[id number]] loratadine 10 mg tablet RxNorm: 264227 1 Tablet(s) PO QD 1 Tabl et(s) PO QD 04/25/2014 09/25/2014 Inactive [AttnRPh: Saving deyanira ly/adjudicate RxGRP:SG20 RxBIN:[id number] RxPCN:HT ID#:[id number]] docusate sodium 100 mg capsule RxNorm: 7987861 1 Capsule(s) PO BID 04/04/2014 09/25/2014 Inactive [AttnRPh: Saving apply/adjud icate RxGRP:SG20 RxBIN:767781 RxPCN:HT ID#:[id number]] Senna-S 8.6 mg-50 mg tablet RxNorm: 768690 2 Tablet(s) PO QD TAKE 2 TABLETS ORALLY TWICE A DAY 03/15/2014 07/19/2014 Inactive OUT OF REFILL S [AttnRPh: Saving apply/adjudicate RxGRP:SG20 RxBIN:814550 RxPCN:HT ID#:[id number]] nystatin 100,000 unit/gram topical cream RxNorm: 364706 Applica tion TOP BID 03/15/2014 07/22/2016 Inactive [AttnRPh: Saving deyanira ly/adjudicate RxGRP:SG20 RxBIN:740955 RxPCN:HT ID#:[id number]] Miralax 17 gram oral powder packet RxNorm: 324352 1 Uni t Dose PO BID in 6-8oz water daily 03/15/2014 09/25/2014 Inactive AttnRPh: Saving apply/adjudicate RxGRP:SG20 RxBIN:[id number] RxPCN:HT ID#:[id number] [AttnRPh: Saving apply/adjudicate RxGRP:SG20 RxBIN:[id number] RxPCN:HT ID#:[id number]] Senna-S 8.6 mg-50 mg tablet RxNorm: 045084 2 Tablet(s) PO QD TAKE 2 TABLETS ORALLY TWICE A DAY 03/09/2014 03/14/2014 Inactive OUT OF REFILL S loratadine 10 mg tablet RxNorm: 449509 1 Tablet(s) PO QD 1 Tabl et(s) PO QD 10/28/2013 04/24/2014 Inactive [AttnRPh: Saving deyanira ly/adjudicate RxGRP:SG20 RxBIN:156248 RxPCN:HT ID#:[id number]] docusate sodium 100 mg capsule RxNorm: 5117769 1 Capsule(s) PO BID 10/21/2013 04/03/2014 Inactive [AttnRPh: Saving apply/adjud icate RxGRP:SG20 RxBIN:[id number] RxPCN: ID#:[id number]] Plus 27 mg-1 mg tablet RxNorm: 1 Tablet(s) PO QD 06/201309/25/2014 Inactive [AttnRPh: Saving apply/adjud icate RxGRP:SG20 RxBIN:090369 RxPCN:HT ID#:[id number]] Calcium + D 600 mg (1,500)-200 unit tablet RxNorm: 462556 1 Tab let(s) PO QD 09/21/2013 09/25/2014 Inactive loratadine 10 mg tablet RxNorm: 641513 1 Tablet(s) PO QD 1 Tabl et(s) PO QD 07/06/2013 10/28/2013 Inactive docusate sodium 100 mg capsule RxNorm: 3537837 1 Capsule(s) PO BID 04/12/2013 10/21/2013 Inactive Senna-S 8.6 mg-50 mg tablet RxNorm: 965763 2 Tablet(s) PO BID 01/0503/09/2014 Inactive loratadine 10 mg tablet RxNorm: 242175 1 Tablet(s) PO QD 01/04/2013 0 07/06/2013 Inactive Senna-S 8.6 mg-50 mg tablet RxNorm: 319533 2 Tablet(s) PO BID 01/0401/04/2013 Inactive loratadine 10 mg tablet RxNorm: 6698462 1 Tablet(s) PO QD 10/05/2012 01/04/2013 Inactive Senna-S 8.6 mg-50 mg tablet RxNorm: 338500 2 Tablet(s) PO BID 10/0501/04/2013 Inactive Calcium + D 600 mg (1,500)-200 unit tablet RxNorm: 928215 1 Tab let(s) PO QD 09/11/2012 09/21/2013 Inactive docusate sodium 100 mg capsule RxNorm: 8852040 1 Capsule(s) PO BID 09/10/2012 03/08/2013 Inactive Plus 27 mg-1 mg tablet RxNorm: 1 Tablet(s) PO QD 08/3109/04/2013 Inactive Senna-S 8.6 mg-50 mg tablet RxNorm: 117395 2 Tablet(s) PO BID 09/1010/04/2012 Inactive loratadine 10 mg tablet RxNorm: 5984048 1 Tablet(s) PO QD 09/10/2012 09/09/2012 Active divalproex ER 500 mg tablet,extended release 24 hr RxNorm: 1 091960 1 Tablet(s) PO BID 09/10/2012 09/21/2019 Inactive Nasonex 50 mcg/actuation [place] RxNorm: 082804 1 [place] NASAL BID 07/22/2016 Inactive Depakote 500 mg tablet,delayed release RxNorm: 6230110 1 Tablet( s) PO BID 08/10/2012 12/20/2014 Inactive loratadine 10 mg tablet RxNorm: 8014316 1 Tablet(s) PO QD 06/29/2012 09/09/2012 Inactive docusate sodium 100 mg capsule RxNorm: 8565078 1 Capsule(s) PO BID 06/29/2012 09/09/2012 Inactive divalproex 250 mg tablet,delayed release RxNorm: 1749105 1 Table t(s) PO QPM 06/08/2012 09/21/2019 Inactive Depakote 500 mg tablet,delayed release RxNorm: 2947736 1 Tablet( s) PO BID 04/13/2012 07/11/2012 Inactive Senna-S 8.6 mg-50 mg tablet RxNorm: 350473 2 Tablet(s) PO BID 03/1604/14/2012 Inactive Plus 27 mg-1 mg tablet RxNorm: 1 Tablet(s) PO QD 01/3109/09/2012 Inactive divalproex ER 500 mg tablet,extended release 24 hr RxNorm: 1 186945 1 Tablet(s) PO BID 02/10/2012 04/09/2012 Inactive divalproex 250 mg tablet,delayed release RxNorm: 0632413 1 Table t(s) PO QPM 09/30/2011 04/26/2012 Inactive Nasonex 50 mcg/actuation [place] RxNorm: 5750753 1 [place] NASAL BID 03/13/2012 Inactive Depakote 500 mg tablet,delayed release RxNorm: 9904476 1 Tablet( s) PO BID 08/14/2011 02/09/2012 Inactive divalproex ER 500 mg tablet,extended release 24 hr RxNorm: 1 714629 1 Tablet(s) PO BID 06/17/2011 08/15/2011 Inactive Benadryl 25 mg Cap RxNorm: 5497423 1 Capsule(s) PO QHS as needed for sinus drainage. May cause drowsiness. 05/23/2011 11/29/2013 Inactive divalproex ER 500 mg 24 hr Tab RxNorm: 1181854 1 Tablet(s) PO BID 0 04/15/2011 06/13/2011 Inactive Nasonex 50 mcg/actuation [place] RxNorm: 0696451 1 [place] NASAL BID 09/15/2011 Inactive Amitiza 24 mcg Cap RxNorm: 063650 1 Capsule(s) PO BID 03/19/201105/01 Inactive Sennalax-S 8.6 mg-50 mg Tab RxNorm: 648571 2 Tablet(s) PO BID 03/1907/16/2011 Inactive Nasonex 50 mcg/Actuation [place] RxNorm: 5991986 1 [place] NASAL BID 03/24/2011 Inactive divalproex 250 mg Tab, Delayed Release RxNorm: 8000343 1 Tablet( s) PO QPM 02/27/2011 09/24/2011 Inactive Plus 27 mg-1 mg tablet RxNorm: 1 Tablet(s) PO QD 02/0105/20/2011 Inactive divalproex ER 500 mg 24 hr Tab RxNorm: 3802264 1 Tablet(s) PO BID 1 04/15/2010 04/12/2011 Inactive Amitiza 24 mcg Cap RxNorm: 956263 1 Capsule(s) PO BID 01/14/201103/03 Inactive Nasonex 50 mcg/Actuation [place] RxNorm: 0996726 1 [place] NASAL BID 03/16/2011 Inactive Depakote 500 mg Tab RxNorm: 4749679 1 Tablet(s) PO BID 09/18/2010 Inactive divalproex 250 mg Tab, Delayed Release RxNorm: 1618642 1 Tablet( s) PO QPM 07/31/2010 02/25/2011 Inactive Amitiza 24 mcg Cap RxNorm: 109573 1 Capsule(s) PO BID 06/19/201001/01 Inactive divalproex ER 500 mg 24 hr Tab RxNorm: 6954078 1 Tablet(s) PO BID 0 03/27/2010 09/22/2010 Inactive Amitiza 24 mcg Cap RxNorm: 956447 1 Capsule(s) PO BID 03/20/201006/01 Inactive Sennalax-S 8.6 mg-50 mg Tab RxNorm: 568827 2 Tablet(s) PO BID 03/2007/17/2010 Inactive divalproex 250 mg Tab, Delayed Release RxNorm: 4130354 1 Tablet( s) PO QPM 03/06/2010 07/30/2010 Inactive Amitiza 24 mcg Cap RxNorm: 345029 1 Capsule(s) PO BID 12/27/200903/03 Inactive Abilify 5 mg Tab RxNorm: 529071 1 Tablet(s) PO QD 12/13/2009 01/01/20 10 Inactive Abilify 5 mg Tab RxNorm: 962762 1 Tablet(s) PO QD 11/23/2009 12/13/19 10 Inactive Nasonex 50 mcg/Actuation [place] RxNorm: 1907941 1 [place] NASAL BID 11/06/2009 Active Divalproex 250 mg Tab, Delayed Release RxNorm: 6857824 1 Tablet( s) PO QHS 10/26/2009 12/31/2009 Inactive Divalproex 250 mg Tab, Delayed Release RxNorm: 5647342 1 Tablet( s) PO QHS 10/26/2009 10/25/2009 Inactive Fluoxetine 10 mg Tab RxNorm: 372620 1 Tablet(s) PO QD 10/26/200912/03 Inactive Abilify 5 mg Tab RxNorm: 942877 1 Tablet(s) PO QD 10/24/2009 11/23/19 10 Inactive Amitiza 24 mcg Cap RxNorm: 088834 1 Capsule(s) PO BID 09/28/200910/02 Inactive divalproex SR 500 mg 24 hr Tab RxNorm: 1220841 1 Tablet(s) PO BID 0 08/31/2009 10/29/2009 Inactive Divalproex SR 500 mg 24 hr Tab RxNorm: 3567199 1 Tablet(s) PO BID 0 08/23/2009 08/30/2009 Inactive Sennalax-S 8.6 mg-50 mg Tab RxNorm: 072575 2 Tablet(s) PO BID 08/1709/15/2009 Inactive Divalproex SR 500 mg 24 hr Tab RxNorm: 1898207 1 Tablet(s) PO BID 0 07/20/2009 08/18/2009 Inactive Clindamycin 300 mg Cap RxNorm: 582036 1 Capsule(s) PO BID 06/23/2009 06/29/2009 Inactive Tylenol Extra Strength 500 mg Tab RxNorm: 443804 Tablet(s) PO PRN Active Pepto-Bismol 262 mg chewable tablet RxNorm: 171555 Tablet(s) PO as needed 07/07/2015 Active Robitussin Cough-Congestion 100 mg/5 mL syrup RxNorm: 906796 Milliliter(s) PO as needed 07/07/2015 Active alprazolam 1 mg tablet RxNorm: 701590 1 Tablet(s) PO QD as needed 0 07/07/2015 12/13/2020 Inactive Opcon-A 0.27682 %-0.315 % Eye Drops RxNorm: 1524258 Drop(s) OPH PRN 04/26/2015 04/25/2015 Inactive Amitiza 24 mcg Cap RxNorm: 167985 1 Capsule(s) PO BID 09/28/200909/01 Inactive Depakote 250 mg Tab RxNorm: 2539834 1 Tablet(s) PO QPM 01/01/2010 Inactive fluticasone 50 mcg/actuation nasal spray,suspension RxNorm: 867192 1 [place] NASAL BID 11/09/2014 11/08/2014 Inactive Mucinex 600 mg tablet, extended release RxNorm: 908579 Tablet(s ) PO as needed 07/07/2015 12/13/2020 Inactive Depakote 500 mg Tab RxNorm: 1229785 1 Tablet(s) PO BID 09/18/2010 Inactive Ketoconazole 2 % Shampoo RxNorm: 772515 1 TOP PRN 09/26/2014 015 Inactive alfalfa 650 mg tablet RxNorm: 483520 1 Tablet(s) PO QID 09/22/2019 Inactive Culturelle 10 billion cell capsule RxNorm: 934461 Capsule(s) PO as needed 09/22/2019 09/21/2019 Inactive bethanechol chloride 50 mg tablet RxNorm: 203424 1 Tablet(s) PO AC & HS 09/22/2019 09/21/2019 Inactive loratadine 10 mg tablet RxNorm: 7561340 1 Tablet(s) PO QD 06/29/2012 06/28/2012 Inactive Senna Concentrate Oral RxNorm: Oral 03/20/2010 03/20/2010 Inact dalia desmopressin 0.2 mg tablet RxNorm: 124076 3 Tablet(s) PO QHS 201707/13/2017 Inactive Fluoxetine 10 mg Tab RxNorm: 337022 1 Tablet(s) PO QD 10/26/200910/02 Inactive azithromycin 250 mg Tab RxNorm: 874412 Tablet(s) PO gm e 2 tablets on day one and one tablet on days 2-5. 10/01/2011 09/30/2011 Inactive Lyrica 25 mg capsule RxNorm: 304192 1 Capsule(s) PO QPM 10/20/2017 Inactive docusate sodium 100 mg capsule RxNorm: 8551988 1 Capsule(s) PO BID 06/29/2012 06/28/2012 Inactive Senna-S 8.6 mg-50 mg tablet RxNorm: 553345 Tablet(s) PO 03/16/2012 Inactive Zithromax Z-Vu 250 mg Tab RxNorm: 608279 Tablet(s) PO 10/01/2011 Inactive as directed ketoconazole 2 % shampoo RxNorm: 091090 1 Application TOP twice weekly to face 04/11/2015 04/10/2015 Inactive Abilify 10 mg Tab RxNorm: 738315 1 Tablet(s) PO QD 11/21/2016 017 Inactive Lyrica 50 mg capsule RxNorm: 877553 1 Capsule(s) PO QAM 07/11/2016 Inactive divalproex 250 mg Tab, Delayed Release RxNorm: 9379159 1 Tablet( s) PO QPM 03/06/2010 03/05/2010 Inactive Flonase 50 mcg/Actuation Nasal [place] RxNorm: 2676453 1 [place] JOSE AL BID 11/22/2010 11/21/2010 Inactive Cerovite Advanced Formula Oral RxNorm: Oral 12/02/2011 12/01/19 Inactive trihexyphenidyl 2 mg tablet RxNorm: 783056 1 Tablet(s) PO BID 09/2609/25/2014 Inactive Culturelle 10 billion cell Cap RxNorm: 989778 1 Capsule(s) PO QD pr n 04/26/2015 04/25/2015 Inactive Flonase Allergy Relief 50 mcg/actuation nasal spray,suspensi on RxNorm: 2 [place] NASAL QHS 11/21/2014 11/20/2014 Inactive trihexyphenidyl 5 mg tablet RxNorm: 193602 1 Tablet(s) PO BID 09/2109/21/2019 Inactive Amitiza 24 mcg Cap RxNorm: 950830 1 Capsule(s) PO QAM 12/27/200912/02 Inactive Milk of Magnesia 400 mg/5 mL oral suspension RxNorm: 488584 30 Milliliter(s) PO QD as needed 06/30/2017 12/13/2020 Inactive Miralax 17 gram oral powder packet RxNorm: 399059 1 Uni t Dose PO QD in 6-8oz water daily 03/15/2014 03/14/2014 Inactive AttnRPh: Saving apply/adjudicate RxGRP:SG20 RxBIN:[id number] RxPCN: ID#:[id number] Calcium + D 600 mg (1,500)-200 unit tablet RxNorm: 902498 1 Tab let(s) PO QD 09/11/2012 09/10/2012 Inactive Flonase 50 mcg/actuation nasal spray,suspension RxNorm: 8963 23 2 [place] NASAL QHS 11/09/2014 11/09/2014 Inactive Benadryl 25 mg capsule RxNorm: 1253993 Capsule(s) PO as needed 05/0 08/201512/13/2020 Inactive Nasonex 50 mcg/Actuation [place] RxNorm: 3620091 1 NASAL PRN 010 11/06/2009 Inactive benztropine 2 mg tablet RxNorm: 341468 1 Tablet(s) PO BID 07/25/2015 07/24/2015 Inactive Lamisil AT 1 % topical cream RxNorm: 226183 1 Applicati on TOP BID for 2-4 weeks for athletes foot 07/07/2015 07/06/2015 Inactive Medication Administered No Medication Administered data Immunizations Vaccine Codes Dose Date Status Influenza (Adult) CVX: 141 11/23/2009 Results Observation Observation Code Item Item Code Result Date S ervice Location CANCEL [id number] CANCEL FOOTNOTE 07/25/2010 Unknown Procedures Procedure Codes Date URINALYSIS NONAUTO W/O SCOPE CPT-4: 83679 10/04/2019 [facility] URINE CULTURE/ COLONY COUNT CPT-4: 11125 10/04/19 20 PPPS, subseq visit CPT-4: G0439 09/22/2019 [facility] URINE CULTURE/ COLONY COUNT CPT-4: 46709 01/06/20 19 URINALYSIS NONAUTO W/O SCOPE CPT-4: 83848 01/05/2019 URINALYSIS NONAUTO W/O SCOPE CPT-4: 97830 10/29/2018 [facility] URINE CULTURE/ COLONY COUNT CPT-4: 47505 10/30/19 19 PPPS, subseq visit CPT-4: G0439 09/17/2018 PPPS, subseq visit CPT-4: G0439 08/25/2017 PPPS, subseq visit CPT-4: G0439 03/28/2015 PRESCRIP TRANSMIT VIA ERX SY CPT-4: G8553 11/17/2014 DESTRUCT PREMALG LESION (Cryosurgery) CPT-4: 81580 PRESCRIP TRANSMIT VIA ERX SY CPT-4: G8553 09/26/2014 PRESCRIP TRANSMIT VIA ERX SY CPT-4: G8553 03/15/2014 PPPS, subseq visit CPT-4: G0439 04/27/2013 PRESCRIP TRANSMIT VIA ERX SY CPT-4: G8553 05/23/2011 PRESCRIP TRANSMIT VIA ERX SY CPT-4: G8553 11/22/2010 RML URINE CULTURE/ COLONY COUNT CPT-4: 90886 08/04/19 11 RML URINE CULTURE/ COLONY COUNT CPT-4: 96178 07/24/19 11 URINALYSIS NONAUTO W/O SCOPE CPT-4: 91454 07/23/2010 IMMUNIZATION ADMIN CPT-4: 25775 01/01/2010 TDAP VACCINE 7 YRS/> IM CPT-4: 72596 01/01/2010 FLU VACCINE 3 YRS & > IM UP 64 CPT-4: 87025 0 ADMIN INFLUENZA VIRUS VAC CPT-4: G0008 11/23/2009 PRESCRIP TRANSMIT VIA ERX SY CPT-4: G8553 11/23/2009 Vital Signs Date Vital 04/22/2022 Blood Pressure 1: 126/74 Code: 8480-6 Heart Rate 1: 75 bpm Respiratory Rate: 20 bpm SpO2: 96% Temperature: 36.3 (C) / 97.3 (F) We ight: 174 lbs Code: 91112-2 02/18/2022 Blood Pressure 1: 130/72 Code: 8480-6 Heart Rate 1: 72 bpm Height: 5'9" Code: 8302-2 SpO2: 95% Temperature: 36.3 (C) / 97.3 (F) 02/04/2022 Blood Pressure 1: 117/68 Code: 8480-6 Heart Rate 1: 51 bpm Height: Code: 8302-2 SpO2: 100% Temperature: 35.9 (C) / 96.7 (F) Weight: Code: 57999-7 01/17/2022 Blood Pressure 1: 113/71 Code: 8480-6 BMI: 25.7 Code: 29842-3 Heart Rate 1: 64 bpm Height: 5'9" Code: 8302-2 SpO2: 99% Temperature: 3 6.3 (C) / 97.3 (F) Weight: 174 lbs Code: 21951-8 01/01/2022 Blood Pressure 1: 132/74 Code: 8480-6 BMI: 25.7 Code: 52561-9 Heart Rate 1: 66 bpm Height: 5'9" Code: 8302-2 SpO2: 98% Temperature: 3 6.6 (C) / 97.8 (F) Weight: 174 lbs Code: 25387-5 12/17/2021 Blood Pressure 1: 110/68 Code: 8480-6 BMI: 25.7 Code: 58740-7 Heart Rate 1: 59 bpm Height: 5'9" Code: 8302-2 SpO2: 100% Temperature: 3 6.2 (C) / 97.1 (F) Weight: 174 lbs Code: 73198-2 11/19/2021 Blood Pressure 1: 114/68 Code: 8480-6 Heart Rate 1: 60 bpm Respiratory Rate: 16 bpm SpO2: 96% Temperature: 36.7 (C) / 98.1 (F) We ight: 206 lbs Code: 64486-6 10/16/2021 Blood Pressure 1: 124/80 Code: 8480-6 Heart Rate 1: 76 bpm Respiratory Rate: 20 bpm SpO2: 95% Temperature: 36.8 (C) / 98.2 (F) We ight: 179 lbs 8 oz Code: 17818-3 07/10/2021 Blood Pressure 1: 122/68 Code: 8480-6 [...] 97.8 (F) We ight: 171 lbs Code: 94679-0 05/16/2020 Blood Pressure 1: 122/70 Code: 8480-6 Heart Rate 1: 87 bpm Respiratory Rate: 17 bpm SpO2: 97% Temperature: 36.4 (C) / 97.5 (F) We ight: 260 lbs Code: 60747-2 10/04/2019 Blood Pressure 1: 134/69 Code: 8480-6 Heart Rate 1: 67 bpm Respiratory Rate: 24 bpm SpO2: 96% Temperature: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 Completed 11/23/2009 Visit Plan: Check CMP, CBC, TSH, Free T4 , Depakote level, Vit D, B12, Lipids Start Abilify 5mg QD See Psych 10/24/2009 Appointment: Tish Noe WPtel: [address] [place], [place] [phone] ESTABLISHED PATIENT 10/24/2009 Patient Education: Patient Medication Summary Completed 10/24/2009 Visit Plan: Caregiver present states the pt. has not complained of pain or other symptoms. Swelling is present on left upper cheek. Caregiver states the pt. has eaten normally over the last few days. Pt. reports pain with eating. Instructed home health care case manager to seek re-eval if symptoms persist or fever appears. OTC Tylenol or Motrin for discomfort recommended. 06/23/2009 Appointment: Kiley Wilson WPtel: [phone] ACUTE ILLNESS 06/23/2009 Patient Education: Patient Medication Summary Completed 06/23/2009 Referral: Yajaira Corea WPtel: [phone] [address] [place] Referral Initiated Referral: Gilbert Covarrubias WPtel: [phone] Referral Initiated Referral: Earl Jordan WPtel: [phone] Referral Initiated Instructions Comment Date . [...] tremor on e xam--discussed parkinson's symptoms with concrete form setter and finisher 10/01/2011 . Proceed with hearing evaluation Proceed [...] days. Pt. reports pain with eating. Instructed home health care case manager to seek re-eval if symptoms persist or [...]
[2022-07-03 13:21] VITALS: BP 123/102
[2022-07-03] MEDS ORDERED: ONDANSETRON 4 MG/2 ML (SDV) Z0FRAN IV PRN (13:45)
[2022-07-03] MEDS: LACTATED RINGERS 1,000 ML IV SCH ×2 (13:58→20:28)
[2022-07-03 15:49] VITALS: BP 122/102
[2022-07-03] MEDS ORDERED: LEVE100S16 PO (16:04)
[2022-07-03] MEDS ORDERED: DIPH25TA65 PO (16:04)
[2022-07-03] MEDS ORDERED: PNV PO (16:04)
[2022-07-03] MEDS ORDERED: AMOX1TAB11 PO (16:04)
[2022-07-03] MEDS ORDERED: SIME80TA16 PO (16:04)
[2022-07-03] MEDS ORDERED: BUSP5TAB59 PO (16:04)
--- NOTE | 2022-07-03 19:02 | History & Physical ---
History of Present Illness History of Present Illness Reason for visit/HPI This is a 62 year old mentally and developly disabled male with a history of seizure disorder and recurrent UTIs due to a chronic indwelling winchester catheter who was brought to the emergency room via EMS after sustaining a seizure and then becoming hypoxic. He was found to be in a postictal state with oxygen saturation in the 80s. He has been placed on vapotherm and given IV keppra. He also has a UTI. He will be admitted to the medical floor with vapotherm, IVFs, IV antibiotics and IV keppra. Date of Admission July 03, 2022 at 12:55 Date Seen by a Provider: July 03, 2022 Time Seen by a Provider: 18:56 I consulted on this patient on 07/03/22 18:56 Attending Physician Seth Noe DO Admitting Physician Admitting Physician: Seth Noe DO Attending Physician: Seth Noe DO Consult Allergies and Home Medications Allergies Coded Allergies: lorazepam (Verified Adverse Reaction, Intermediate, HYPERACTIVITY, 12/07/21) Patient Home Medication List Home Medication List Reviewed: Yes Acetaminophen (Acetaminophen) 500 Mg Tablet, 500 MG PO Q6H PRN for PAIN-MILD (1- 4) OR TEMPATURE, (Reported) Entered as Reported by: HAROLDO STONE on 06/03/16 1413 Last Action: Reviewed Amoxicillin/Potassium Clav (Amox Tr-K Clv 500-125 mg Tab) 500 Mg-125 Mg Tablet, 500 MG PO BID, (Reported) Entered as Reported by: MAHENDRA SANTOS on 07/03/22 1604 Last Action: Reviewed Aripiprazole (Aripiprazole) 10 Mg Tablet, 10 MG PO HS, (Reported) Entered as Reported by: MAHENDRA SANTOS on 12/21/21 1462 Last Action: Reviewed Bismuth Subsalicylate (Pepto-Bismol) 262 Mg/15 Ml Oral.susp, PO UD PRN for UPSET STOMACH/INDIGESTION, (Reported) Entered as Reported by: SREE MICHELLE on 07/01/17 7619 Last Action: Reviewed Buspirone HCl (Buspirone HCl) 5 Mg Tablet, 5 MG PO BID, (Reported) Entered as Reported by: MAHENDRA SANTOS on 5/3/23 1604 Last Action: Reviewed Calamine/Zinc Oxide (Calamine Lotion) 177 Ml Lotion, TP UD PRN for RASH, (Reported) Entered as Reported by: SREE MICHELLE on 07/01/17844 Last Action: Reviewed Ciclopirox (Ciclopirox) 8 % Solution, 1 APPLIC TP HS, (Reported) Entered as Reported by: MAHENDRA SANTOS on 12/21/211541 Last Action: Reviewed Citalopram Hydrobromide (Citalopram HBr) 40 Mg Tablet, 40 MG PO DAILY, (Reported) Entered as Reported by: MAHENDRA SANTOS on 12/21/211541 Last Action: Reviewed Cranberry Extract (Cranberry) 425 Mg Capsule, 425 MG PO BID, (Reported) Entered as Reported by: MAHENDRA SANTOS on 12/21/211541 Last Action: Reviewed Diphenhydramine HCl (Benadryl Allergy) 25 Mg Tablet, 25 MG PO Q6H PRN for HIVES, (Reported) Entered as Reported by: MAHENDRA SANTOS on 07/03/221603 Last Action: Reviewed Fluticasone Propionate (Fluticasone Propionate) 16 Gm Liberty.susp, 1 SPRAY NS BID, (Reported) Entered as Reported by: SREE MICHELLE on 07/01/17844 Last Action: Reviewed Guaifenesin/D-Methorphan Hb/PE (Robitussin Cough-Cold Cf Liq) 50 Mg-5 Mg-2.5 Mg/5 Ml Liquid, PO UD PRN for COUGH/CONGESTION, (Reported) Entered as Reported by: SREE MICHELLE on 07/01/17851 Last Action: Reviewed Hydrocortisone (Hydrocortisone) 1 % Cream..g., 1 APPLIC TP UD PRN for RASH AND ITCHING, (Reported) Entered as Reported by: MAHENDRA SANTOS on 12/21/211541 Last Action: Reviewed Ketoconazole (Ketoconazole) 2 % Shampoo, 1 APPLIC TOP GROSSMAN,WE, (Reported) Entered as Reported by: MAHENDRA SANTOS on 12/21/211541 Last Action: Reviewed L. Rhamnosus GG/Inulin (Culturelle Capsule) 10 Billion Cell-200 Mg Cap.sprink, 1 CAP PO DAILY, (Reported) Entered as Reported by: SREE MICHELLE on 07/01/17844 Last Action: Reviewed Levetiracetam (Keppra) 100 Mg/Ml Solution, 15 ML PO BID, (Reported) Entered as Reported by: MAHENDRA SANTOS on 07/03/22 1604 Last Action: Reviewed Loratadine (Loratadine) 10 Mg Tablet, 10 MG PO HS, (Reported) Entered as Reported by: SREE MICHELLE on 07/01/17844 Last Action: Reviewed Menthol (Gold Rosario Medicated Body) 0.8 % Powder, 1 APPLIC TP UD PRN for FOOT ODOR AND WETNESS, (Reported) Entered as Reported by: MAHENDRA SANTOS on 12/21/211541 Last Action: Reviewed Metronidazole (Metronidazole) 0.75 % Lotion, 1 APPLIC TOP HS, (Reported) Entered as Reported by: MAHENDRA SANTOS on 12/21/211541 Last Action: Reviewed Mirtazapine (Mirtazapine) 15 Mg Tablet, 15 MG PO HS, (Reported) Entered as Reported by: MAHENDRA SANTOS on 12/21/211541 Last Action: Reviewed Naphazoline HCl/Pheniramine (Opcon-A Eye Drops) 0.93607 %-0.315 % Drops, 1-2 D ROPS OU UD PRN for REDNESS/SWELLING FROM ALLERGY, (Reported) Entered as Reported by: SREE MICHELLE on 07/01/17851 Last Action: Reviewed Neomycin Grossman/Bacitrac Zn/Poly (Gnp Triple Antibiotic Ointment) 28.4 Gm Oint...g., TP UD PRN for MINOR CUTS, SCRAPES, AND SORES, (Reported) Entered as Reported by: SREE MICHELLE on 07/01/17851 Last Action: Reviewed Nystatin (Nystatin) 100,000 Unit/Gram Cream..g., 1 APPLIC TOP BID PRN for SCALING RASH, (Reported) Entered as Reported by: MAHENDRA SANTOS on 12/21/211541 Last Action: Reviewed Omeprazole (Omeprazole) 40 Mg Capsule.dr, 40 MG PO DAILY, (Reported) Entered as Reported by: MAHENDRA SANTOS on 03/18/22 1143 Last Action: Reviewed Pnv,Calcium 72/Iron/Folic Acid (Westab Plus Tablet) 27 Mg Iron-1 Mg Tablet, 1 EACH PO DAILY, (Reported) Entered as Reported by: MAHENDRA SANTOS on 07/03/22 1604 Last Action: Reviewed Polyethylene Glycol 3350 (Polyethylene Glycol 3350) 17 Gm Powd.pack, 17 GM PO BID, (Reported) Entered as Reported by: IRASEMA HUMPHREY on 09/28/18 1428 Last Action: Reviewed Pregabalin (Pregabalin) 50 Mg Capsule, 50 MG PO DAILY, (Reported) Entered as Reported by: JUANITA VILLAGRAN on 03/16/22 1644 Last Action: Reviewed Sennosides/Docusate Sodium (Stimulant Laxative Plus Tablet) 8.6 Mg-50 Mg Tablet, 2 EA PO BID, (Reported) Entered as Reported by: MAHENDRA SANTOS on 12/21/21 154 Last Action: Reviewed Simethicone (Simethicone) 80 Mg Tab.chew, 80 MG PO QIDPCHS, (Reported) Entered as Reported by: MAHENDRA SANTOS on 07/03/22 1604 Last Action: Reviewed Venice Locke (Andrew) 50 % Med..pad, 1 EACH TP QID PRN for HEMMORRHOID DISCOMFORT, (Reported) Entered as Reported by: MAHENDRA SANTOS on 01/08/22 1133 Last Action: Reviewed Discontinued Medications Buspirone HCl (Buspirone HCl) 5 Mg Tablet, 5 MG PO BID Discontinued Reason: Duplicate Order Prescribed by: TOBY BURGOS on 03/25/22 1016 Last Action: Discontinued Pnv with Ca,No.72/Iron/FA ( Plus Tablet) 27 Mg Iron-1 Mg Tablet, 1 EA PO DAILY, (Reported) Discontinued Reason: Duplicate Order Entered as Reported by: MAHENDRA SANTOS on 12/21/21 1542 Last Action: Discontinued Simethicone (Simethicone) 80 Mg Tab.chew, 80 MG PO PCHS Discontinued Reason: Duplicate Order Prescribed by: TOBY BURGOS on 03/25/22 1016 Last Action: Discontinued [LevETIRAcetam ORAL SOLUTION] 100 MG/ML SOLN, 1,000 MG PO BID Discontinued Reason: No Longer Taking Prescribed by: TOBY BURGOS on 03/25/22 1016 Last Action: Discontinued Past Cwrqmqj-Uvohpk-Tnnsve Hx Patient Social History Tobacco Use?: No Smoking Status: Former Smoker Smokeless Tobacco Frequency: Unknown if Ever Used Use of E-Cig and/or Vaping dev: No Use of E-Cig and/or Vaping [place]: Unknown if Ever Used Substance use?: No Alcohol Use?: No Pt feels they are or have been: No Immunizations Up To Date Date of Influenza Vaccine: Dec 24, 2021 Tetanus Booster (TDap): More Than 5 Years Hepatitis B: Yes PED Vaccines UTD: No Date of Pneumonia Vaccine: Jan 23, 2015 Seasonal Allergies Seasonal Allergies: Yes Current Status Advance Directives: No Communicates: Verbally Primary Language: Tunisian Preferred Spoken Language: Tunisian Implanted or Applied Medical D: None Past Medical History Surgeries: Eye Surgery, Gallbladder, Orthopedic Currently Using CPAP: No Currently Using BIPAP: No Developmental Disorder, Seizure Disorder Sexually Transmitted Disease: No HIV/AIDS: No Prostate Problems, UTI-Chronic Chronic Constipation, Chronic Diarrhea, Gall Bladder Disease Fractures, Contracture Loss of Vision: Denies Hearing Impairment: Denies Anxiety Blood Disorders: Yes (ANEMIA) Adverse Reaction/Blood Tranf: No Family Medical History PAST SURGICAL HISTORY: -SURGERY ON ALL LEFT TOES -EGD'S/COLONSCOPIES -RIGHT FEMUR FX/ORIF -PROSTATE SURGERY ADDITIONAL PMH: -POST POLIO SYNDROME WITH LEFT SIDED CONTRACTURES, 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--PT IS NON-AMBULATORY -RIGHT FEMUR FX/ORIF WITH 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 OF HIP -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, MINIMAL VERBAL SKILLS -SEVERE ADAPTIVE BEHAVIOR DISORDER -DELUSIONAL DISORDER -CHRONIC INDWELLING SUPRAPUBIC CATHETER FOR BLADDER OUTLET OBSTRUCTION Review of Systems Constitutional: malaise EENTM: No see HPI, No no symptoms reported, No ear discharge, No hearing loss, No ear pain, No blurred vision, No double vision, No eye pain, No tearing, No vision loss, No dental problems, No hoarseness, No mouth pain, No mouth swelling, No epistaxis, No nose congestion, No nose pain, No throat pain, No throat swelling, No other Respiratory: other (hypoxic) Cardiovascular: No no symptoms reported, No see HPI, No chest pain, No edema, No Hx of Intervention, No palpitations, No syncope, No vascular heart diseas, No other Gastrointestinal: No RUQ, No LUQ, No RLQ, No LLQ, No no symptoms reported, No see HPI, No abdominal pain, No constipation, No diarrhea, No dysphagia, No hematemesis, No heartburn, No jaundice, No loss of appetite, No melena, No nausea, No vomiting, No other Genitourinary: other (recurrent UTIs) Musculoskeletal: muscle weakness Skin: No no symptoms reported, No see HPI, No change in color, No change in hair/nails, No dryness, No hx of skin cancer, No lesions, No lumps, No pruritus, No rash, No other Psychiatric/Neurological: Emotional Problems, Seizure, Weakness Physical Exam Vital Signs Vital Signs - First Documented 07/03/22 07/03/22 07/03/22 07:06 07:36 11:56 Temp 35.2 Pulse 105 Resp 16 B/P (MAP) 102/96 (98) Pulse Ox 89 O2 Delivery Non Rebreather O2 Flow Rate 15.00 FiO2 100 Capillary Refill : Less Than 3 Seconds Height, Weight, BMI Height: 5'9.00" Weight: 180lbs. 1.0oz. 81.289667ue; 23.67 BMI Method:Stated General Appearance: Other (Lethargic on vapotherm) HEENT: Other (MM dry) Neck: Supple Respiratory: Lungs Clear, Decreased Breath Sounds Cardiovascular: Regular Rate, Rhythm Gastrointestinal: Normal Bowel Sounds, Soft Extremity: Non Tender, No Calf Tenderness, No Pedal Edema Neurologic/Psychiatric: Other (lethargic) Skin: Warm/Dry Comments Laboratory Tests 07/03/22 07:12: White Blood Count 8.0, Red Blood Count 3.93L, Hemoglobin 12.6L, Hematocrit 37L, Mean Corpuscular Volume 95, Mean Corpuscular Hemoglobin 32, Mean Corpuscular Hemoglobin Concent 34, Red Cell Distribution Width 15.9H, Platelet Count 108L, Mean Platelet Volume 11.5, Immature Granulocyte % (Auto) 0, Neutrophils (%) (Auto) 94H, Lymphocytes (%) (Auto) 4L, Monocytes (%) (Auto) 2, Eosinophils (%) (Auto) 0, Basophils (%) (Auto) 0, Neutrophils # (Auto) 7.6, Lymphocytes # (Auto) 0.3L, Monocytes # (Auto) 0.1, Eosinophils # (Auto) 0.0, Basophils # (Auto) 0.0, Immature Granulocyte # (Auto) 0.0, Neutrophils % (Manual) 71, Lymphocytes % (Manual) 2, Monocytes % (Manual) 2, Metamyelocytes % 4, Band Neutrophils 21, Toxic Granulation 1+, Percent Immature Platelet Fraction 7.7H, Anisocytosis SLIGHT, Glucometer 82 07/03/22 07:32: Prothrombin Time 13.8, INR Comment 1.0, Activated Partial Thromboplast Time 49H, D-Dimer 2.25H, Sodium Level 144, Potassium Level 4.3, Chloride Level 107, Carbon Dioxide Level 26, Anion Gap 11, Blood Urea Nitrogen 23H, Creatinine 0.89, Estimat Glomerular Filtration Rate 98, BUN/Creatinine Ratio 26, Glucose Level 83, Calcium Level 8.9, Corrected Calcium 9.5, Magnesium Level 1.7, Total Bilirubin 0.4, Aspartate Amino Transf (AST/SGOT) 51H, Alanine Aminotransferase (ALT/SGPT) 54, Alkaline Phosphatase 368H, C-Reactive Protein High Sensitivity 12.93H, B-Type Natriuretic Peptide 137.4H, Total Protein 6.5, Albumin 3.3 07/03/22 11:35: Urine Color YELLOW, Urine Clarity CLEAR, Urine pH 5.5, Urine Specific Ulysses 1.025H, Urine Protein TRACEH, Urine Glucose (UA) NEGATIVE, Urine Ketones NEGATIVE, Urine Nitrite POSITIVEH, Urine Bilirubin NEGATIVE, Urine Urobilinogen 0.2, Urine Leukocyte Esterase 2+H, Urine RBC (Auto) TRACE-IH, Urine RBC 0-2, Urine WBC 50-100H, Urine Squamous Epithelial Cells RARE, Urine Crystals NONE, Urine Bacteria MODERATEH, Urine Casts NONE, Urine Mucus NEGATIVE, Urine Culture Indicated YES 07/03/22 13:21: Lactic Acid Level 1.19 Assessment/Plan Assessment and Plan 1. Acute Respiratory Failure with Hypoxia--on vapotherm 2. Seizure with Post-Ictal State--IV keppra 3. UTI with Sepsis--on IV rocephin and IVFs 4. Chronic Indwelling Winchester Catheter with history of recurrent UTIs 5. History of cerebral palsy--wheelchair bound Admission Diagnosis Admission Status: Inpatient Order (span 2 midnights) Reason for Inpatient Admission: Will need vapotherm and IV abx and IV kepprs SETH NOE DO July 03, 2022 19:02
[2022-07-03 19:47] VITALS: BP 110/78
[2022-07-03 23:51] VITALS: BP 99/63
[2022-07-04 04:00] VITALS: BP 112/66
[2022-07-04] MEDS: LACTATED RINGERS 1,000 ML IV SCH (04:06)
[2022-07-04 04:45] LABS: HEMATOCRIT 29 % (40-54); HEMOGLOBIN 9.7 g/dL (13.3-17.7); MEAN CORPUSCULAR HEMOGLOBIN 32 pg (25-34); MEAN CORPUSCULAR HGB CONC 34 g/dL (32-36); MEAN CORPUSCULAR VOLUME 95 fL (80-99); MEAN PLATELET VOLUME 11.4 fL (9.0-12.2); PLATELET COUNT 90 10^3/uL (130-400); WHITE BLOOD COUNT 11.9 10^3/uL (4.3-11.0)
[2022-07-04 04:51] LABS: ALBUMIN 2.7 GM/DL (3.2-4.5)
[2022-07-04 04:53] LABS: CALCIUM 8.8 MG/DL (8.5-10.1)
[2022-07-04 04:54] LABS: TOTAL PROTEIN 5.7 GM/DL (6.4-8.2)
[2022-07-04 04:56] LABS: BILIRUBIN,TOTAL 0.6 MG/DL (0.1-1.0)
[2022-07-04 04:58] LABS: CREATININE SERUM 1.13 MG/DL (0.60-1.30)
[2022-07-04] MEDS ORDERED: D5 1/2 NS 1000 ML IV SOLUTION 1,000 ML IV ONE (05:23)
[2022-07-04] MEDS ORDERED: DEXTROSE 50% 50 ML (IMS) SYR ONE (05:25)
[2022-07-04] MEDS: D5 1/2 NS 1000 ML IV SOLUTION 1,000 ML IV SCH ×2 (05:27→15:41)
[2022-07-04] MEDS ORDERED: DEXTROSE 50% 50 ML (IMS) SYR IV ONE (05:30)
[2022-07-04 07:40] VITALS: BP 100/68
[2022-07-04] MEDS: PANTOPRAZOLE 40 MG (PROTONIX) VIAL IV SCH (08:07)
[2022-07-04] MEDS ORDERED: cefTRIAXone 1 GM/NS 50 ML IVPB IV SCH ×2 (09:00)
[2022-07-04] MEDS ORDERED: MEROPENEM 1,000 MG in NS (IVPB) 100 ML IV SCH ×2 (09:30→18:00)
[2022-07-04 11:40] VITALS: BP 108/78
[2022-07-04 16:00] VITALS: BP 102/65
--- NOTE | 2022-07-04 17:45 | Progress Note ---
Subjective Date Seen by a Provider: July 04, 2022 Time Seen by a Provider: 08:25 Subjective/Events-last exam Fwup acute respiratory failure, UTI with sepsis, seizure with postictal state. Still lethargic on vapotherm. His blood sugar was 37 this morning so given D50 and IVFs changed to D5 1/2 NS. Focused Exam Lactate Level 07/03/22 13:21: Lactic Acid Level 1.19 Objective Exam Vital Signs Date Time Temp Pulse Resp B/P (MAP) Pulse Ox O2 Delivery O2 Flow Rate FiO2 07/04/22 16:00 37.2 114 23 102/65 (77) 93 Nasal Cannula 07/04/22 12:52 117 07/04/22 11:40 37.2 115 16 108/78 (88) 91 Vapotherm 60.00 07/04/22 08:00 97 Vapotherm 30.00 65 07/04/22 07:40 37.0 114 18 100/68 (79) 92 Vapotherm 60.00 07/04/22 07:26 86 Vapotherm 25.00 60 07/04/22 07:00 110 07/04/22 04:00 36.8 109 10 112/66 (81) 95 Vapotherm 30.00 60.00 07/04/22 02:40 93 Vapotherm 25.00 60 07/04/22 01:00 113 07/03/22 23:51 36.9 110 16 99/63 (75) 96 Vapotherm 30.00 60.00 07/03/22 23:01 97 Vapotherm 30.00 65 07/03/22 21:31 Vapotherm 25.00 60 07/03/22 19:47 105 19 110/78 (89) 97 30.00 65.00 07/03/22 19:22 95 Vapotherm 25.00 65 07/03/22 19:00 106 I & O 07/04/22 06:59 Intake Total 1000 ml Output Total 900 ml Balance 100 ml Capillary Refill : Less Than 3 Seconds General Appearance: Other (lethargic) Respiratory: Lungs Clear Cardiovascular: Tachycardia Gastrointestinal: normal bowel sounds, soft Extremity: Non Tender, No Calf Tenderness, Pedal Edema (feet) Neurologic/Psychiatric: Other (sleeping/lethargic) Results Lab Laboratory Tests 07/04/22 04:30: White Blood Count 11.9H, Red Blood Count 3.02L, Hemoglobin 9.7#L, Hematocrit 29L , Mean Corpuscular Volume 95, Mean Corpuscular Hemoglobin 32, Mean Corpuscular Hemoglobin Concent 34, Red Cell Distribution Width 16.0H, Platelet Count 90L, Mean Platelet Volume 11.4, Sodium Level 145, Potassium Level 4.0, Chloride Level 108H, Carbon Dioxide Level 23, Anion Gap 14, Blood Urea Nitrogen 29H, Creatinine 1.13, Estimat Glomerular Filtration Rate 74, BUN/Creatinine Ratio 26, Glucose Level 37*L, Calcium Level 8.8, Corrected Calcium 9.8, Total Bilirubin 0.6, Aspartate Amino Transf (AST/SGOT) 91H, Alanine Aminotransferase (ALT/SGPT) 65H, Alkaline Phosphatase 415H, Total Protein 5.7L, Albumin 2.7L 07/04/22 05:49: Glucometer 147H 07/04/22 10:54: Glucometer 74 07/04/22 15:46: Glucometer 101 Microbiology 07/03/22 Urine Culture - Preliminary, Resulted Escherichia coli 07/03/22 Blood Culture - Preliminary, Resulted No growth Assessment/Plan Assessment/Plan Assess & Plan/Chief Complaint 1. Acute Respiratory Failure with Hypoxia--on Vapotherm 2. Acute UTI with Sepsis--change to IV meropenem due to ongoing hypotension, tachycardia, lethargy and history of resistant organisms on culture 3. Seizure with Postictal state--on IV Keppra Clinical Quality Measures Admission Status Admission Dx 1. Acute Respiratory Failure with Hypoxia--on vapotherm 2. Seizure with Post-Ictal State--IV keppra 3. UTI with Sepsis--on IV rocephin and IVFs 4. 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 History of cerebral palsy--wheelchair bound SETH CANALES DO July 04, 2022 17:45
[2022-07-04] MEDS: ENOXAPARIN 40 MG/0.4 ML (LOVENOX) SYR SC SCH (19:38)
[2022-07-04] MEDS: MEROPENEM 1,000 MG in NS (IVPB) 100 ML IV SCH (19:39)
[2022-07-04 19:56] VITALS: BP 123/74
[2022-07-05 00:07] VITALS: BP 126/71
[2022-07-05] MEDS: D5 1/2 NS 1000 ML IV SOLUTION 1,000 ML IV SCH ×3 (01:34→21:45)
[2022-07-05] MEDS: MEROPENEM 1,000 MG in NS (IVPB) 100 ML IV SCH ×3 (01:34→17:55)
[2022-07-05 04:00] VITALS: BP 131/71
[2022-07-05 04:57] LABS: HEMOGLOBIN 8.8 g/dL (13.3-17.7)
[2022-07-05 04:59] LABS: MEAN PLATELET VOLUME 11.4 fL (9.0-12.2); WHITE BLOOD COUNT 5.8 10^3/uL (4.3-11.0)
[2022-07-05 05:18] LABS: ALBUMIN 2.6 GM/DL (3.2-4.5); POTASSIUM 3.5 MMOL/L (3.6-5.0)
[2022-07-05 05:19] LABS: CALCIUM 8.5 MG/DL (8.5-10.1)
[2022-07-05 05:20] LABS: TOTAL PROTEIN 5.5 GM/DL (6.4-8.2)
[2022-07-05 05:22] LABS: BILIRUBIN,TOTAL 0.7 MG/DL (0.1-1.0)
[2022-07-05 05:24] LABS: CREATININE SERUM 1.06 MG/DL (0.60-1.30)
[2022-07-05 08:00] VITALS: BP 134/87
[2022-07-05] MEDS: PANTOPRAZOLE 40 MG (PROTONIX) VIAL IV SCH (08:56)
--- NOTE | 2022-07-05 09:14 | Progress Note ---
Subjective Date Seen by a Provider: July 05, 2022 Time Seen by a Provider: 09:13 Subjective/Events-last exam Fwup acute respiratory failure, UTI with sepsis, seizure with postictal state. Still lethargic on vapotherm. Focused Exam Lactate Level 07/03/22 13:21: Lactic Acid Level 1.19 Objective Exam Vital Signs Date Time Temp Pulse Resp B/P (MAP) Pulse Ox O2 Delivery O2 Flow Rate FiO2 07/05/22 08:00 36.8 84 16 134/87 (103) 99 Vapotherm 07/05/22 07:00 89 07/05/22 06:48 99 Vapotherm 25.00 55 07/05/22 05:59 37.1 Vapotherm 25.00 55.00 07/05/22 04:00 105 35 131/71 (91) 93 Vapotherm 30.00 60.00 07/05/22 02:39 98 Vapotherm 25.00 55 07/05/22 01:00 102 07/05/22 00:07 37.1 104 26 126/71 (89) 96 Vapotherm 30.00 60.00 07/04/22 21:22 94 Vapotherm 30.00 60 07/04/22 20:00 94 Vapotherm 30.00 60 07/04/22 19:56 36.5 106 12 123/74 (90) 100 60.00 07/04/22 19:00 110 07/04/22 18:56 93 Vapotherm 30.00 60 07/04/22 16:00 37.2 114 23 102/65 (77) 93 Nasal Cannula 07/04/22 12:52 117 07/04/22 11:40 37.2 115 16 108/78 (88) 91 Vapotherm 60.00 I & O 07/05/22 07:00 Intake Total 1100 ml Output Total 1450 ml Balance -350 ml Capillary Refill : Less Than 3 Seconds General Appearance: No Apparent Distress Respiratory: Lungs Clear Cardiovascular: Regular Rate, Rhythm Gastrointestinal: normal bowel sounds, soft Neurologic/Psychiatric: Other (lethargic) Results Lab Laboratory Tests 07/04/22 10:54: Glucometer 74 07/04/22 15:46: Glucometer 101 07/04/22 20:39: Glucometer 109 07/05/22 04:47: White Blood Count 5.8, Red Blood Count 2.77L, Hemoglobin 8.8L, Hematocrit 26L, Mean Corpuscular Volume 95, Mean Corpuscular Hemoglobin 32, Mean Corpuscular Hemoglobin Concent 34, Red Cell Distribution Width 15.8H, Platelet Count 83L, Mean Platelet Volume 11.4, Percent Immature Platelet Fraction 4.5, Sodium Level 142, Potassium Level 3.5L, Chloride Level 109H, Carbon Dioxide Level 22, Anion Gap 11, Blood Urea Nitrogen 24H, Creatinine 1.06, Estimat Glomerular Filtration Rate 80, BUN/Creatinine Ratio 23, Glucose Level 101, Calcium Level 8.5, Corrected Calcium 9.6, Total Bilirubin 0.7, Aspartate Amino Transf (AST/SGOT) 96H, Alanine Aminotransferase (ALT/SGPT) 75H, Alkaline Phosphatase 567H, Total Protein 5.5L, Albumin 2.6L Microbiology 07/03/22 Urine Culture - Preliminary, Resulted Escherichia coli 07/03/22 Blood Culture - Preliminary, Resulted No growth Assessment/Plan Assessment/Plan Assess & Plan/Chief Complaint 1. Acute Respiratory Failure with Hypoxia--on Vapotherm 2. Acute UTI with Sepsis--change to IV meropenem yesterday due to ongoing hypotension, tachycardia, lethargy and history of resistant organisms on culture, will give another 24hrs with this and see if patient starts to wake up 3. Seizure with Postictal state--on IV Keppra Clinical Quality Measures Admission Status Admission Dx 1. Acute Respiratory Failure with Hypoxia--on vapotherm 2. Seizure with Post-Ictal State--IV keppra 3. UTI with Sepsis--on IV rocephin and IVFs 4. 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 History of cerebral palsy--wheelchair bound SETH CANALES DO July 05, 2022 09:14
[2022-07-05 12:00] VITALS: BP 128/68
[2022-07-05] MEDS: LORazepam INJ 2 MG/ML (ATIVAN) VIAL IV PRN (13:41)
[2022-07-05] MEDS ORDERED: levETIRAcetam 1000 mg/NS 100ml 100 ML IV ONE (14:00)
[2022-07-05 15:28] VITALS: BP 87/64
[2022-07-05] MEDS: ENOXAPARIN 40 MG/0.4 ML (LOVENOX) SYR SC SCH (17:55)
[2022-07-05] MEDS: levETIRAcetam 1000 mg/NS 100ml 100 ML IV SCH (20:03)
[2022-07-06] VITALS: BP 141/90
[2022-07-06] MEDS: MEROPENEM 1,000 MG in NS (IVPB) 100 ML IV SCH ×3 (02:13→17:41)
[2022-07-06 04:00] VITALS: BP 149/92
[2022-07-06 04:34] LABS: HEMOGLOBIN 9.6 g/dL (13.3-17.7)
[2022-07-06 04:36] LABS: MEAN PLATELET VOLUME 11.6 fL (9.0-12.2); WHITE BLOOD COUNT 6.8 10^3/uL (4.3-11.0)
[2022-07-06 04:44] LABS: ALBUMIN 2.7 GM/DL (3.2-4.5); POTASSIUM 3.5 MMOL/L (3.6-5.0)
[2022-07-06 04:45] LABS: CALCIUM 8.8 MG/DL (8.5-10.1)
[2022-07-06 04:46] LABS: TOTAL PROTEIN 5.8 GM/DL (6.4-8.2)
[2022-07-06 04:48] LABS: BILIRUBIN,TOTAL 0.9 MG/DL (0.1-1.0)
[2022-07-06 04:50] LABS: CREATININE SERUM 0.85 MG/DL (0.60-1.30)
[2022-07-06 07:41] VITALS: BP 141/98
--- NOTE | 2022-07-06 07:55 | Progress Note ---
Subjective Date Seen by a Provider: July 06, 2022 Time Seen by a Provider: 07:52 Subjective/Events-last exam Fwup acute respiratory failure, UTI with sepsis, seizure with postictal state. Was having seizures yesterday. Awake this morning. Focused Exam Lactate Level 07/03/22 13:21: Lactic Acid Level 1.19 Objective Exam Vital Signs Date Time Temp Pulse Resp B/P (MAP) Pulse Ox O2 Delivery O2 Flow Rate FiO2 07/06/22 07:43 High Flow N/C 4.00 07/06/22 07:41 36.4 96 13 141/98 (112) 95 Nasal Cannula 5.00 07/06/22 07:00 98 07/06/22 04:00 36.2 07/06/22 04:00 94 11 149/92 (111) 90 High Flow N/C 5.00 07/06/22 02:34 96 Nasal Cannula 5.00 07/06/22 01:00 100 07/06/22 00:00 37.0 89 24 141/90 (107) 99 High Flow N/C 5.00 07/05/22 21:48 High Flow N/C 5.00 07/05/22 21:46 95 Vapotherm 15.00 30 07/05/22 20:00 100 Vapotherm 15.00 30 07/05/22 19:41 Vapotherm 15.00 30.00 07/05/22 19:00 80 07/05/22 18:39 Vapotherm 25.00 40.00 07/05/22 18:23 100 Vapotherm 30.00 60 07/05/22 15:28 36.2 68 14 87/64 (72) 100 High Flow N/C 30.00 07/05/22 13:40 75 Nasal Cannula 5.00 07/05/22 13:00 77 07/05/22 12:00 36.6 91 20 128/68 (88) 89 Nasal Cannula 10.00 07/05/22 10:25 High Flow N/C 5.00 07/05/22 10:16 100 Vapotherm 25.00 55 07/05/22 08:00 100 High Flow N/C 5.00 07/05/22 08:00 36.8 84 16 134/87 (103) 99 Vapotherm I & O 07/06/22 07:00 Intake Total 1200 ml Output Total 930 ml Balance 270 ml Capillary Refill : Less Than 3 Seconds General Appearance: No Apparent Distress Respiratory: Lungs Clear Cardiovascular: Regular Rate, Rhythm Gastrointestinal: normal bowel sounds, non tender, soft Extremity: Non Tender, No Calf Tenderness, No Pedal Edema Neurologic/Psychiatric: Alert, Oriented x3 Skin: Warm/Dry Results Lab Laboratory Tests 07/05/22 10:34: Glucometer 99 07/05/22 16:33: Glucometer 143H 07/05/22 20:42: Glucometer 108 07/06/22 04:15: White Blood Count 6.8, Red Blood Count 2.99L, Hemoglobin 9.6L, Hematocrit 28L, Mean Corpuscular Volume 95, Mean Corpuscular Hemoglobin 32, Mean Corpuscular Hemoglobin Concent 34, Red Cell Distribution Width 15.7H, Platelet Count 93L, Mean Platelet Volume 11.6, Percent Immature Platelet Fraction 6.5, Sodium Level 142, Potassium Level 3.5L, Chloride Level 109H, Carbon Dioxide Level 21, Anion Gap 12, Blood Urea Nitrogen 21H, Creatinine 0.85, Estimat Glomerular Filtration Rate 99, BUN/Creatinine Ratio 25, Glucose Level 97, Calcium Level 8.8, Corrected Calcium 9.8, Total Bilirubin 0.9, Aspartate Amino Transf (AST/SGOT) 80H, Alanine Aminotransferase (ALT/SGPT) 80H, Alkaline Phosphatase 646H, Total Protein 5.8L, Albumin 2.7L Microbiology 07/03/22 Urine Culture - Final, Complete Escherichia coli See Comments 07/03/22 Blood Culture - Preliminary, Resulted No growth Assessment/Plan Assessment/Plan Assess & Plan/Chief Complaint 1. Acute Respiratory Failure with Hypoxia--on Vapotherm 2. Acute UTI with Sepsis--change to IV meropenem due to ongoing hypotension, tachycardia, lethargy and history of resistant organisms on culture, will give another 24hrs with this and see if patient starts to wake up 3. Seizure with Postictal state--on IV Keppra Clinical Quality Measures Admission Status Admission Dx 1. Acute Respiratory Failure with Hypoxia--on vapotherm 2. Seizure with Post-Ictal State--IV keppra 3. UTI with Sepsis--on IV rocephin and IVFs 4. 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 History of cerebral palsy--wheelchair bound SETH CANALES DO July 06, 2022 07:55
[2022-07-06] MEDS: levETIRAcetam 1000 mg/NS 100ml 100 ML IV SCH ×2 (08:42→20:48)
[2022-07-06] MEDS: D5 1/2 NS 1000 ML IV SOLUTION 1,000 ML IV SCH ×3 (08:42→20:48)
[2022-07-06] MEDS: PANTOPRAZOLE 40 MG (PROTONIX) VIAL IV SCH (09:10)
[2022-07-06] MEDS: POTASSIUM CL 10MEQ/50ML IVPB 50 ML IV SCH ×2 (11:05→12:39)
[2022-07-06 11:34] VITALS: BP 134/78
[2022-07-06 15:26] VITALS: BP 157/83
[2022-07-06] MEDS: ENOXAPARIN 40 MG/0.4 ML (LOVENOX) SYR SC SCH (17:41)
[2022-07-06 19:12] VITALS: BP 133/77
[2022-07-07] VITALS (7 sets, daily range): BP systolic 122–136; BP diastolic 67–79
[2022-07-07] MEDS: MEROPENEM 1,000 MG in NS (IVPB) 100 ML IV SCH ×3 (05:19→17:53)
[2022-07-07 06:04] LABS: ALBUMIN 2.5 GM/DL (3.2-4.5); BILIRUBIN,TOTAL 0.8 MG/DL (0.1-1.0); CALCIUM 8.1 MG/DL (8.5-10.1); CREATININE SERUM 0.74 MG/DL (0.60-1.30); POTASSIUM 3.3 MMOL/L (3.6-5.0); TOTAL PROTEIN 5.4 GM/DL (6.4-8.2)
[2022-07-07] MEDS: D5 1/2 NS 1000 ML IV SOLUTION 1,000 ML IV SCH ×2 (08:01→19:39)
[2022-07-07] MEDS: levETIRAcetam 1000 mg/NS 100ml 100 ML IV SCH ×2 (08:04→20:35)
[2022-07-07] MEDS: PANTOPRAZOLE 40 MG (PROTONIX) VIAL IV SCH (08:06)
--- NOTE | 2022-07-07 09:15 | Progress Note ---
Subjective Date Seen by a Provider: July 07, 2022 Time Seen by a Provider: 09:13 Subjective/Events-last exam Fwup acute respiratory failure, UTI with sepsis, seizure with postictal state. No further seizures. Groggy this morning but yesterday was awake yelling for people if no on was in the room. Objective Exam Vital Signs Date Time Temp Pulse Resp B/P (MAP) Pulse Ox O2 Delivery O2 Flow Rate FiO2 07/07/22 07:59 89 07/07/22 07:45 36.7 89 18 136/72 (93) 92 High Flow N/C 5.00 07/07/22 06:59 High Flow N/C 3.50 07/07/22 06:51 93 High Flow N/C 4.50 07/07/22 04:00 85 16 129/78 (95) 93 High Flow N/C 5.00 07/07/22 02:20 High Flow N/C 4.00 07/07/22 01:00 89 07/07/22 00:23 83 20 130/78 (95) 97 High Flow N/C 5.00 07/06/22 19:30 High Flow N/C 5.00 07/06/22 19:12 36.9 88 20 133/77 (95) 97 High Flow N/C 5.00 07/06/22 19:00 92 07/06/22 15:26 36.8 88 18 157/83 (107) 95 High Flow N/C 5.00 07/06/22 12:37 88 07/06/22 11:34 37.0 81 20 134/78 (96) 96 High Flow N/C 5.00 I & O 07/07/22 06:59 Intake Total 0 ml Output Total 1325 ml Balance -1325 ml Capillary Refill : Less Than 3 Seconds General Appearance: No Apparent Distress Respiratory: Lungs Clear Cardiovascular: Regular Rate, Rhythm Gastrointestinal: normal bowel sounds, soft Extremity: Non Tender, No Calf Tenderness, No Pedal Edema Neurologic/Psychiatric: Other (lethargic) Results Lab Laboratory Tests 07/06/22 10:17: Glucometer 76 07/06/22 15:25: Glucometer 112H 07/06/22 21:10: Glucometer 104 07/07/22 05:17: Sodium Level 140, Potassium Level 3.3L, Chloride Level 108H, Carbon Dioxide Level 23, Anion Gap 9, Blood Urea Nitrogen 17, Creatinine 0.74, Estimat Glomerular Filtration Rate 104, BUN/Creatinine Ratio 23, Glucose Level 104, Calcium Level 8.1L, Corrected Calcium 9.3, Total Bilirubin 0.8, Aspartate Amino Transf (AST/SGOT) 31, Alanine Aminotransferase (ALT/SGPT) 53, Alkaline Phosphatase 524H, Total Protein 5.4L, Albumin 2.5L 07/07/22 06:12: Glucometer 91 Microbiology 07/03/22 Urine Culture - Final, Complete Escherichia coli See Comments 07/03/22 Blood Culture - Preliminary, Resulted No growth Assessment/Plan Assessment/Plan Assess & Plan/Chief Complaint 1. Acute Respiratory Failure with Hypoxia--on Vapotherm 2. Acute UTI with Sepsis--on IV meropenem 3. Seizure with Postictal state--on IV Keppra 4. Hypokalemia--replace potassium, check magnesium level Clinical Quality Measures Admission Status Admission Dx 1. Acute Respiratory Failure with Hypoxia--on vapotherm 2. Seizure with Post-Ictal State--IV keppra 3. UTI with Sepsis--on IV rocephin and IVFs 4. 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 History of cerebral palsy--wheelchair bound SETH CANALES DO July 07, 2022 09:15
[2022-07-07] MEDS: POTASSIUM CL 10MEQ/50ML IVPB 50 ML IV SCH ×4 (11:45→16:51)
[2022-07-07] MEDS: ENOXAPARIN 40 MG/0.4 ML (LOVENOX) SYR SC SCH (16:52)
[2022-07-08] VITALS (8 sets, daily range): BP systolic 93–134; BP diastolic 55–77
[2022-07-08] MEDS: MEROPENEM 1,000 MG in NS (IVPB) 100 ML IV SCH ×3 (02:13→17:58)
[2022-07-08] MEDS: D5 1/2 NS 1000 ML IV SOLUTION 1,000 ML IV SCH ×2 (05:15→21:43)
[2022-07-08 06:43] LABS: ALBUMIN 2.4 GM/DL (3.2-4.5); BILIRUBIN,TOTAL 0.7 MG/DL (0.1-1.0); CREATININE SERUM 0.7 MG/DL (0.60-1.30); POTASSIUM 3.5 MMOL/L (3.6-5.0); TOTAL PROTEIN 5.2 GM/DL (6.4-8.2)
[2022-07-08] MEDS: levETIRAcetam 1000 mg/NS 100ml 100 ML IV SCH ×2 (08:11→19:50)
[2022-07-08] MEDS: PANTOPRAZOLE 40 MG (PROTONIX) VIAL IV SCH (08:11)
[2022-07-08] MEDS ORDERED: POTASSIUM CL 10MEQ/50ML IVPB 50 ML IV SCH (08:30)
--- NOTE | 2022-07-08 08:34 | Progress Note ---
Subjective Date Seen by a Provider: July 08, 2022 Time Seen by a Provider: 08:31 Subjective/Events-last exam Fwup acute respiratory failure, UTI with sepsis, seizure with postictal state. No further seizures. Groggy yesterday and today. Objective Exam Vital Signs Date Time Temp Pulse Resp B/P (MAP) Pulse Ox O2 Delivery O2 Flow Rate FiO2 07/08/22 08:02 36.6 88 18 134/75 (94) 92 Nasal Cannula 5.00 07/08/22 07:26 87 07/08/22 03:37 36.7 81 20 133/77 (95) 97 High Flow N/C 5.00 07/08/22 01:00 89 07/07/22 23:48 36.9 88 20 128/79 (95) 94 High Flow N/C 5.00 07/07/22 21:24 High Flow N/C 3.00 07/07/22 20:00 High Flow N/C 5.00 07/07/22 19:32 36.7 85 20 134/76 (95) 91 High Flow N/C 5.00 07/07/22 19:00 88 07/07/22 15:17 36.9 88 20 126/77 (93) 90 High Flow N/C 5.00 07/07/22 14:47 High Flow N/C 3.00 07/07/22 14:44 92 High Flow N/C 3.50 07/07/22 13:51 93 07/07/22 11:45 36.9 91 18 122/67 (85) 92 High Flow N/C 5.00 07/07/22 09:51 94 High Flow N/C 3.50 07/07/22 09:00 High Flow N/C 5.00 I & O 07/08/22 07:00 Intake Total 2600 ml Output Total 2525 ml Balance 75 ml Capillary Refill : Less Than 3 Seconds General Appearance: No Apparent Distress Respiratory: Lungs Clear Cardiovascular: Regular Rate, Rhythm Gastrointestinal: normal bowel sounds, soft Neurologic/Psychiatric: Other (lethargic) Results Lab Laboratory Tests 07/07/22 10:17: Glucometer 98 07/07/22 15:20: Glucometer 111H 07/07/22 21:16: Glucometer 98 07/08/22 05:01: Sodium Level 141, Potassium Level 3.5L, Chloride Level 106, Carbon Dioxide Level 26, Anion Gap 9, Blood Urea Nitrogen 13, Creatinine 0.70, Estimat Glomerular Filtration Rate 105, BUN/Creatinine Ratio 19, Glucose Level 98, Calcium Level 8.0L, Corrected Calcium 9.3, Total Bilirubin 0.7, Aspartate Amino Transf (AST/SGOT) 17, Alanine Aminotransferase (ALT/SGPT) 36, Alkaline Phosphatase 474H , Total Protein 5.2L, Albumin 2.4L 07/08/22 05:14: Glucometer 103 Microbiology 07/03/22 Urine Culture - Final, Complete Escherichia coli See Comments 07/03/22 Blood Culture - Preliminary, Resulted No growth Assessment/Plan Assessment/Plan Assess & Plan/Chief Complaint 1. Acute Respiratory Failure with Hypoxia--on Vapotherm 2. Acute UTI with Sepsis--on IV meropenem, proceed with TPN 3. Seizure with Postictal state--on IV Keppra 4. Hypokalemia--replace potassium 5. Hypomagnesemia--replace magnesium Clinical Quality Measures Admission Status Admission Dx 1. Acute Respiratory Failure with Hypoxia--on vapotherm 2. Seizure with Post-Ictal State--IV keppra 3. UTI with Sepsis--on IV rocephin and IVFs 4. 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 History of cerebral palsy--wheelchair bound SETH CANALES DO July 08, 2022 08:33
[2022-07-08] MEDS ORDERED: MAGNESIUM 1 GM/100 ML IVPB 100 ML IV SCH (08:45)
[2022-07-08 09:29] LABS: MAGNESIUM 1.4 MG/DL (1.6-2.4); PHOSPHORUS 3.2 MG/DL (2.3-4.7)
[2022-07-08] MEDS: MAGNESIUM 1 GM/100 ML IVPB 100 ML IV SCH ×8 (10:21→17:38)
[2022-07-08] MEDS: POTASSIUM CL 10MEQ/50ML IVPB 50 ML IV SCH ×2 (10:21→11:55)
[2022-07-08] MEDS: POTASSIUM CL 10 MEQ/50 ML IVPB (PRE-MIX) IV SCH ×3 (11:04→12:09)
[2022-07-08] MEDS: ENOXAPARIN 40 MG/0.4 ML (LOVENOX) SYR SC SCH (17:57)
[2022-07-09] MEDS: MEROPENEM 1,000 MG in NS (IVPB) 100 ML IV SCH ×2 (02:11→17:49)
[2022-07-09 04:00] VITALS: BP 107/62
[2022-07-09 05:47] LABS: HEMATOCRIT 28 % (40-54); HEMOGLOBIN 9.5 g/dL (13.3-17.7); MEAN CORPUSCULAR HEMOGLOBIN 32 pg (25-34); MEAN CORPUSCULAR HGB CONC 34 g/dL (32-36); MEAN CORPUSCULAR VOLUME 94 fL (80-99); MEAN PLATELET VOLUME 10.4 fL (9.0-12.2); PLATELET COUNT 192 10^3/uL (130-400)
[2022-07-09 06:04] LABS: ALBUMIN 2.4 GM/DL (3.2-4.5); BILIRUBIN,TOTAL 0.7 MG/DL (0.1-1.0); CALCIUM 7.8 MG/DL (8.5-10.1); CREATININE SERUM 0.75 MG/DL (0.60-1.30); MAGNESIUM 2.4 MG/DL (1.6-2.4); PHOSPHORUS 3.1 MG/DL (2.3-4.7); TOTAL PROTEIN 5.4 GM/DL (6.4-8.2)
[2022-07-09 08:07] VITALS: BP_SYST 88; BP_SYST 99; BP_DIAS 50; BP_DIAS 57
[2022-07-09] MEDS: D5 1/2 NS 1000 ML IV SOLUTION 1,000 ML IV SCH ×2 (08:35→15:53)
[2022-07-09] MEDS: PANTOPRAZOLE 40 MG (PROTONIX) VIAL IV SCH (08:36)
[2022-07-09] MEDS: levETIRAcetam 1000 mg/NS 100ml 100 ML IV SCH ×2 (08:36→21:30)
[2022-07-09 11:42] VITALS: BP 116/57
--- NOTE | 2022-07-09 12:41 | Diagnostic Imaging Report ---
EXAMINATION: CHEST 1 VIEW, AP/PA ONLY. INDICATION: Coarse lung sounds. COMPARISON: 07/03/2022. FINDINGS: Increasing right basilar consolidations. Small layering right pleural effusion. No pneumothorax. Stable normal heart size. IMPRESSION: Increasing right basilar consolidations which may be due to worsening pneumonia. Dictated by: Dictated on workstation # [id number]
[2022-07-09 16:31] VITALS: BP 116/58
--- NOTE | 2022-07-09 16:32 | Diagnostic Imaging Report ---
EXAMINATION: Abdomen, one view. HISTORY: Abdominal pain. COMPARISON: 02/04/2022. FINDINGS: Small and large bowel loops are mildly dilated. No free air. IMPRESSION: 1. Mildly dilated loops of large and small bowel favored to represent an ileus. Dictated by: Dictated on workstation # [id number]
[2022-07-09] MEDS ORDERED: [UNRECOGNIZED DRUG - OTHER] IV SCH ×11 (17:00)
[2022-07-09] MEDS ORDERED: SODIUM ACETATE IV SCH ×11 (17:00)
[2022-07-09] MEDS ORDERED: SODIUM CHLORIDE IV SCH ×11 (17:00)
[2022-07-09] MEDS: ENOXAPARIN 40 MG/0.4 ML (LOVENOX) SYR SC SCH (17:11)
[2022-07-09] MEDS: 1/2 NS IV SOLUTION 1,000 ML IV SCH (17:20)
[2022-07-09] MEDS ORDERED: BISACODYL 10 MG SUPP (DULCOLAX) PR NR (17:30)
[2022-07-09] MEDS ORDERED: ANIDULAFUNGIN INJECTION 200 MG in NS (IVPB) 250 ML IV NR (17:30)
--- NOTE | 2022-07-09 17:54 | Progress Note ---
Subjective Date Seen by a Provider: July 09, 2022 Time Seen by a Provider: 17:50 Subjective/Events-last exam Fwup acute respiratory failure, UTI with sepsis, seizure with postictal state. Opens eyes but still not trying to talk. Lungs coarse. Objective Exam Vital Signs Date Time Temp Pulse Resp B/P (MAP) Pulse Ox O2 Delivery O2 Flow Rate FiO2 07/09/22 16:31 36.9 76 18 116/58 (77) 93 High Flow N/C 4.00 07/09/22 11:42 36.2 68 18 116/57 (76) 94 High Flow N/C 4.00 07/09/22 08:07 36.8 80 18 99/57 (71) 93 Nasal Cannula 4.00 07/09/22 08:00 High Flow N/C 5.00 07/09/22 04:00 37.0 81 20 107/62 (77) 92 High Flow N/C 5.00 07/08/22 23:28 36.8 80 18 128/60 (82) 93 High Flow N/C 3.00 07/08/22 20:59 80 18 102/55 (71) 95 High Flow N/C 3.00 07/08/22 20:00 High Flow N/C 5.00 07/08/22 19:12 36.7 80 18 93/57 (69) 95 High Flow N/C 3.00 07/08/22 19:11 High Flow N/C 3.00 07/08/22 19:00 36.7 80 18 93/57 (69) 95 High Flow N/C 3.00 I & O 07/09/22 07:00 Intake Total 0 ml Output Total 2550 ml Balance -2550 ml Capillary Refill : Less Than 3 Seconds General Appearance: No Apparent Distress Respiratory: Crackles Cardiovascular: Regular Rate, Rhythm Gastrointestinal: soft, distended Extremity: Non Tender, No Calf Tenderness, No Pedal Edema Neurologic/Psychiatric: Other (lethargic) Results Lab Laboratory Tests 07/08/22 21:16: Glucometer 123H 07/09/22 05:26: Glucometer 101 07/09/22 05:35: White Blood Count 6.0, Red Blood Count 2.98L, Hemoglobin 9.5L, Hematocrit 28L, Mean Corpuscular Volume 94, Mean Corpuscular Hemoglobin 32, Mean Corpuscular Hemoglobin Concent 34, Red Cell Distribution Width 15.1H, Platelet Count 192, Mean Platelet Volume 10.4, Sodium Level 138, Potassium Level 4.0, Chloride Level 103, Carbon Dioxide Level 26, Anion Gap 9, Blood Urea Nitrogen 12, Creatinine 0.75, Estimat Glomerular Filtration Rate 103, BUN/Creatinine Ratio 16, Glucose Level 101, Calcium Level 7.8L, Corrected Calcium 9.1, Phosphorus Level 3.1, Magn esium Level 2.4, Total Bilirubin 0.7, Aspartate Amino Transf (AST/SGOT) 15, Alanine Aminotransferase (ALT/SGPT) 27, Alkaline Phosphatase 422H, Total Protein 5.4L, Albumin 2.4L, Triglycerides Level 118 Microbiology 07/03/22 Urine Culture - Final, Complete Escherichia coli See Comments 07/03/22 Blood Culture - Final, Complete No growth Assessment/Plan Assessment/Plan Assess & Plan/Chief Complaint 1. Acute Respiratory Failure with Hypoxia--on Vapotherm 2. Acute UTI with Sepsis--on IV meropenem, proceed with TPN, PICC line today 3. Seizure with Postictal state--on IV Keppra 4. Hypokalemia--replace potassium 5. Hypomagnesemia--replace magnesium 6. Coarse lungs/Distended Abdomen--proceed with CXR and Abdominal X-ray 7. Lethargy--check CT of head 8. Will likely need feeding tube if patient does not start to eat/drink/take pills--will discuss with guardian Clinical Quality Measures Admission Status Admission Dx 1. Acute Respiratory Failure with Hypoxia--on vapotherm 2. Seizure with Post-Ictal State--IV keppra 3. UTI with Sepsis--on IV rocephin and IVFs 4. 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 History of cerebral palsy--wheelchair bound SETH CANALES DO July 09, 2022 17:54
[2022-07-09] MEDS ORDERED: MEROPENEM 500 MG/NS 100 ML IVPB IV SCH ×2 (18:00)
[2022-07-09 20:07] VITALS: BP 124/59
[2022-07-09 23:18] VITALS: BP 128/79
[2022-07-10] MEDS: MEROPENEM 1,000 MG in NS (IVPB) 100 ML IV SCH ×3 (01:29→17:28)
[2022-07-10 03:19] VITALS: BP 144/84
[2022-07-10 04:42] LABS: ALBUMIN 2.4 GM/DL (3.2-4.5); POTASSIUM 3.8 MMOL/L (3.6-5.0)
[2022-07-10 04:43] LABS: CALCIUM 8.3 MG/DL (8.5-10.1)
[2022-07-10 04:44] LABS: TOTAL PROTEIN 5.6 GM/DL (6.4-8.2)
[2022-07-10 04:46] LABS: BILIRUBIN,TOTAL 0.5 MG/DL (0.1-1.0)
[2022-07-10 04:47] LABS: PHOSPHORUS 3.5 MG/DL (2.3-4.7)
[2022-07-10 04:48] LABS: CREATININE SERUM 0.7 MG/DL (0.60-1.30)
[2022-07-10 04:51] LABS: MAGNESIUM 1.9 MG/DL (1.6-2.4)
[2022-07-10 07:46] VITALS: BP 155/90
--- NOTE | 2022-07-10 08:35 | Progress Note ---
Subjective Date Seen by a Provider: July 10, 2022 Time Seen by a Provider: 08:32 Subjective/Events-last exam Fwup acute respiratory failure, UTI with sepsis, seizure with postictal state. Awake today and trying to talk. Objective Exam Vital Signs Date Time Temp Pulse Resp B/P (MAP) Pulse Ox O2 Delivery O2 Flow Rate FiO2 07/10/22 08:08 High Flow N/C 3.00 07/10/22 08:02 96 High Flow N/C 5.00 07/10/22 07:46 36.2 75 18 155/90 (111) 97 Nasal Cannula 4.00 07/10/22 03:19 36.1 69 20 144/84 (104) 96 High Flow N/C 5.00 07/09/22 23:18 36.0 77 18 128/79 (95) 95 High Flow N/C 5.00 07/09/22 20:07 36.5 72 18 124/59 (80) 95 High Flow N/C 4.00 07/09/22 20:00 High Flow N/C 4.00 07/09/22 19:20 High Flow N/C 4.00 07/09/22 16:31 36.9 76 18 116/58 (77) 93 High Flow N/C 4.00 07/09/22 11:42 36.2 68 18 116/57 (76) 94 High Flow N/C 4.00 I & O 07/10/22 07:00 Intake Total 350 ml Output Total 1925 ml Balance -1575 ml Capillary Refill : Less Than 3 Seconds General Appearance: No Apparent Distress Respiratory: Lungs Clear, Decreased Breath Sounds Cardiovascular: Regular Rate, Rhythm Gastrointestinal: normal bowel sounds, non tender, soft, distended Extremity: Non Tender, No Calf Tenderness, Pedal Edema (tops of feet) Neurologic/Psychiatric: Alert Results Lab Laboratory Tests 07/09/22 18:50: Glucometer 143H 07/09/22 23:21: Glucometer 151H 07/10/22 04:24: Sodium Level 140, Potassium Level 3.8, Chloride Level 103, Carbon Dioxide Level 25, Anion Gap 12, Blood Urea Nitrogen 14, Creatinine 0.70, Estimat Glomerular Filtration Rate 105, BUN/Creatinine Ratio 20, Glucose Level 122H, Calcium Level 8.3L, Corrected Calcium 9.6, Phosphorus Level 3.5, Magnesium Level 1.9, Total Bilirubin 0.5, Aspartate Amino Transf (AST/SGOT) 11, Alanine Aminotransferase (ALT/SGPT) 23, Alkaline Phosphatase 349H, Total Protein 5.6L, Albumin 2.4L 07/10/22 05:54: Glucometer 133H Microbiology 07/03/22 Urine Culture - Final, Complete Escherichia coli See Comments 07/03/22 Blood Culture - Final, Complete No growth Assessment/Plan Assessment/Plan Assess & Plan/Chief Complaint 1. Acute Respiratory Failure with Hypoxia--on NC 2. Acute UTI with Sepsis--on IV meropenem, TPN started 3. Seizure with Postictal state--on IV Keppra 4. Hypokalemia-on TPN 5. Hypomagnesemia--on TPN 6. Coarse lungs/Distended Abdomen--Infiltrate in RLL on CXR and ileus on abdominal x-ray 7. Lethargy--check CT of head this morning--is waking up and trying to talk this morning 8. Will likely need feeding tube if patient does not start to eat/drink/take pills--will discuss with guardian Clinical Quality Measures Admission Status Admission Dx 1. Acute Respiratory Failure with Hypoxia--on vapotherm 2. Seizure with Post-Ictal State--IV keppra 3. UTI with Sepsis--on IV rocephin and IVFs 4. 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 History of cerebral palsy--wheelchair bound SETH CANALES DO July 10, 2022 08:35
[2022-07-10] MEDS: levETIRAcetam 1000 mg/NS 100ml 100 ML IV SCH ×2 (08:47→20:35)
[2022-07-10] MEDS: PANTOPRAZOLE 40 MG (PROTONIX) VIAL IV SCH (08:47)
[2022-07-10] MEDS ORDERED: BISACODYL 10 MG SUPP (DULCOLAX) PR NR (09:00)
--- NOTE | 2022-07-10 10:23 | Diagnostic Imaging Report ---
CLINICAL INDICATION: Patient is mentally challenged. Patient with altered mental status. EXAM: Axial CT scan of the brain without IV contrast with coronal and sagittal reformatted images. Auto Exposure Controls were utilized during the CT exam to meet ALARA standards for radiation dose reduction. Patient had trouble holding still during the exam. COMPARISON: Head CT without contrast dated 10/27/2021. FINDINGS: There is skull streak artifact which obscures portions of the brainstem, posterior fossa, and portions of the brain near the skull. The temporal lobes, especially the right side, are significantly obscured by low density in the region limiting evaluation. There is no evidence of acute cerebral infarct, intracranial hemorrhage, or gross mass effect. There is brain parenchymal volume loss seen. There is normal clayton-white matter distinction. There is no significant midline shift or herniation. There is no evidence of hydrocephalus. The basal cisterns are unremarkable. The skull, extracranial soft tissue, and orbits are unremarkable. The paranasal sinuses are unremarkable. There is consolidation of both mastoid air cells and also fluid in both middle ear regions. IMPRESSION: 1: There is significant skull streak artifact and motion artifact limiting evaluation of the brain parenchyma, especially the temporal lobes and portions of the brain near the skull. 2: There is no gross acute intracranial process. 3: There is consolidation/fluid involving both mastoid air cells and also the middle ear regions which may be related to otomastoiditis or effusions. Dictated by: Dictated on workstation # [id number]
[2022-07-10] MEDS: 1/2 NS IV SOLUTION 1,000 ML IV SCH ×2 (11:29→16:00)
[2022-07-10 11:56] VITALS: BP 160/85
[2022-07-10 15:46] VITALS: BP 118/64
[2022-07-10] MEDS ORDERED: SODIUM CHLORIDE IV SCH ×11 (17:00)
[2022-07-10] MEDS ORDERED: SODIUM ACETATE IV SCH ×11 (17:00)
[2022-07-10] MEDS ORDERED: [UNRECOGNIZED DRUG - OTHER] IV SCH ×11 (17:00)
[2022-07-10] MEDS: ENOXAPARIN 40 MG/0.4 ML (LOVENOX) SYR SC SCH (17:28)
[2022-07-10 20:14] VITALS: BP 115/59
[2022-07-10 23:48] VITALS: BP 121/61
[2022-07-11] MEDS: MEROPENEM 1,000 MG in NS (IVPB) 100 ML IV SCH ×3 (01:11→17:27)
[2022-07-11 03:33] VITALS: BP 124/71
[2022-07-11 05:54] LABS: ALBUMIN 2.4 GM/DL (3.2-4.5); POTASSIUM 4.5 MMOL/L (3.6-5.0)
[2022-07-11 05:56] LABS: CALCIUM 8.2 MG/DL (8.5-10.1)
[2022-07-11 05:57] LABS: TOTAL PROTEIN 5.6 GM/DL (6.4-8.2)
[2022-07-11 05:59] LABS: BILIRUBIN,TOTAL 0.4 MG/DL (0.1-1.0)
[2022-07-11 06:00] LABS: CREATININE SERUM 0.65 MG/DL (0.60-1.30); PHOSPHORUS 3.6 MG/DL (2.3-4.7)
[2022-07-11 06:03] LABS: MAGNESIUM 1.7 MG/DL (1.6-2.4)
[2022-07-11 07:32] VITALS: BP 129/61
[2022-07-11] MEDS: levETIRAcetam 1000 mg/NS 100ml 100 ML IV SCH ×2 (08:43→20:58)
[2022-07-11] MEDS: PANTOPRAZOLE 40 MG (PROTONIX) VIAL IV SCH (08:43)
[2022-07-11 11:35] VITALS: BP 114/58
[2022-07-11 15:29] VITALS: BP 117/67
[2022-07-11] MEDS ORDERED: SODIUM CHLORIDE IV SCH ×11 (17:00)
[2022-07-11] MEDS ORDERED: [UNRECOGNIZED DRUG - OTHER] IV SCH ×11 (17:00)
[2022-07-11] MEDS ORDERED: SODIUM ACETATE IV SCH ×11 (17:00)
[2022-07-11] MEDS: ENOXAPARIN 40 MG/0.4 ML (LOVENOX) SYR SC SCH (17:32)
[2022-07-11] MEDS: 1/2 NS IV SOLUTION 1,000 ML IV SCH (17:35)
--- NOTE | 2022-07-11 17:37 | Progress Note ---
Subjective Date Seen by a Provider: July 11, 2022 Time Seen by a Provider: 08:20 Subjective/Events-last exam Fwup acute respiratory failure, UTI with sepsis, seizure with postictal state. Awake today and talking. Objective Exam Vital Signs Date Time Temp Pulse Resp B/P (MAP) Pulse Ox O2 Delivery O2 Flow Rate FiO2 07/11/22 15:29 37.3 83 20 117/67 (84) 95 Nasal Cannula 4.00 07/11/22 11:35 37.4 84 18 114/58 (76) 91 High Flow N/C 4.00 07/11/22 08:00 High Flow N/C 4.00 07/11/22 07:32 36.9 80 18 129/61 (83) 93 High Flow N/C 4.00 07/11/22 03:33 36.3 83 18 124/71 (88) 96 High Flow N/C 4.00 4.00 07/10/22 23:48 36.3 78 18 121/61 (81) 96 High Flow N/C 4.00 4.00 07/10/22 20:30 High Flow N/C 4.00 07/10/22 20:14 36.3 77 18 115/59 (77) 95 High Flow N/C 4.00 I & O 07/11/22 07:00 Intake Total 0 ml Output Total 2650 ml Balance -2650 ml Capillary Refill : Less Than 3 Seconds General Appearance: No Apparent Distress Neck: Supple Respiratory: Lungs Clear Cardiovascular: Regular Rate, Rhythm Gastrointestinal: normal bowel sounds, non tender, soft Neurologic/Psychiatric: Alert Results Lab Laboratory Tests 07/10/22 18:14: Glucometer 149H 07/10/22 23:52: Glucometer 156H 07/11/22 05:40: Sodium Level 137, Potassium Level 4.5, Chloride Level 104, Carbon Dioxide Level 26, Anion Gap 7, Blood Urea Nitrogen 19H, Creatinine 0.65, Estimat Glomerular Filtration Rate 108, BUN/Creatinine Ratio 29, Glucose Level 106H, Calcium Level 8.2L, Corrected Calcium 9.5, Phosphorus Level 3.6, Magnesium Level 1.7, Total Bilirubin 0.4, Aspartate Amino Transf (AST/SGOT) 15, Alanine Aminotransferase (ALT/SGPT) 20, Alkaline Phosphatase 294H, Total Protein 5.6L, Albumin 2.4L 07/11/22 11:50: Glucometer 134H Microbiology 07/03/22 Urine Culture - Final, Complete Escherichia coli See Comments 07/03/22 Blood Culture - Final, Complete No growth Assessment/Plan Assessment/Plan Assess & Plan/Chief Complaint 1. Acute Respiratory Failure with Hypoxia--on NC 2. Acute UTI with Sepsis--on IV meropenem, TPN started 3. Seizure with Postictal state--on IV Keppra 4. Hypokalemia-on TPN 5. Hypomagnesemia--on TPN 6. Coarse lungs/Distended Abdomen--Infiltrate in RLL on CXR and ileus on abdominal x-ray, repeat X-rays in AM 7. Lethargy--CT of head shows no 8. Will likely need feeding tube if patient does not start to eat/drink/take pills--will discuss with guardian Clinical Quality Measures Admission Status Admission Dx 1. Acute Respiratory Failure with Hypoxia--on vapotherm 2. Seizure with Post-Ictal State--IV keppra 3. UTI with Sepsis--on IV rocephin and IVFs 4. 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 History of cerebral palsy--wheelchair bound SETH CANALES DO July 11, 2022 17:37
[2022-07-11 19:34] VITALS: BP 112/67
[2022-07-12] VITALS (7 sets, daily range): BP systolic 100–125; BP diastolic 46–72
[2022-07-12] MEDS: MEROPENEM 1,000 MG in NS (IVPB) 100 ML IV SCH ×3 (01:17→17:10)
[2022-07-12 04:34] LABS: BASOPHILS % (AUTO) 0 % (0-10); EOSINOPHILS # (AUTO) 0.2 10^3/uL (0.0-0.3); EOSINOPHILS % (AUTO) 5 % (0-10); HEMATOCRIT 30 % (40-54); HEMOGLOBIN 9.7 g/dL (13.3-17.7); LYMPHOCYTES # (AUTO) 1.4 10^3/uL (1.0-4.0); LYMPHOCYTES % (AUTO) 28 % (12-44); MEAN CORPUSCULAR HEMOGLOBIN 32 pg (25-34); MEAN CORPUSCULAR HGB CONC 33 g/dL (32-36); MEAN CORPUSCULAR VOLUME 97 fL (80-99); MEAN PLATELET VOLUME 9.6 fL (9.0-12.2); MONOCYTES # (AUTO) 0.4 10^3/uL (0.0-1.0); MONOCYTES % (AUTO) 9 % (0-12); NEUTROPHILS # (AUTO) 2.8 10^3/uL (1.8-7.8); NEUTROPHILS % (AUTO) 57 % (42-75); PLATELET COUNT 402 10^3/uL (130-400); WHITE BLOOD COUNT 4.9 10^3/uL (4.3-11.0)
--- NOTE | 2022-07-12 08:27 | Progress Note ---
Subjective Date Seen by a Provider: July 12, 2022 Subjective/Events-last exam Fwup acute respiratory failure, UTI with sepsis, seizure with postictal state. Awake and asking for Dr. Garsia. Objective Exam Vital Signs Date Time Temp Pulse Resp B/P (MAP) Pulse Ox O2 Delivery O2 Flow Rate FiO2 07/12/22 08:15 36.1 79 20 113/70 (84) 92 High Flow N/C 4.00 07/12/22 07:16 95 High Flow N/C 4.00 07/12/22 03:22 36.1 77 16 124/72 (89) 95 High Flow N/C 4.00 07/12/22 00:33 36.2 80 16 121/72 (88) 97 Room Air 07/11/22 20:00 High Flow N/C 4.00 07/11/22 19:34 36.7 80 20 112/67 (82) 98 Nasal Cannula 2.00 07/11/22 15:29 37.3 83 20 117/67 (84) 95 Nasal Cannula 4.00 07/11/22 11:35 37.4 84 18 114/58 (76) 91 High Flow N/C 4.00 I & O 07/12/22 06:59 Intake Total 2850 ml Output Total 4975 ml Balance -2125 ml Capillary Refill : Less Than 3 Seconds General Appearance: No Apparent Distress Respiratory: Lungs Clear Cardiovascular: Regular Rate, Rhythm Gastrointestinal: normal bowel sounds, non tender, soft Extremity: Non Tender, No Calf Tenderness Neurologic/Psychiatric: Alert Results Lab Laboratory Tests 07/11/22 11:50: Glucometer 134H 07/11/22 17:33: Glucometer 127H 07/12/22 00:22: Glucometer 132H 07/12/22 04:25: White Blood Count 4.9, Red Blood Count 3.05L, Hemoglobin 9.7L, Hematocrit 30L, Mean Corpuscular Volume 97, Mean Corpuscular Hemoglobin 32, Mean Corpuscular Hemoglobin Concent 33, Red Cell Distribution Width 15.2H, Platelet Count 402H, Mean Platelet Volume 9.6, Immature Granulocyte % (Auto) 1, Neutrophils (%) (Auto) 57, Lymphocytes (%) (Auto) 28, Monocytes (%) (Auto) 9, Eosinophils (%) (Auto) 5, Basophils (%) (Auto) 0, Neutrophils # (Auto) 2.8, Lymphocytes # (Auto) 1.4, Monocytes # (Auto) 0.4, Eosinophils # (Auto) 0.2, Basophils # (Auto) 0.0, Immature Granulocyte # (Auto) 0.0 07/12/22 05:49: Glucometer 124H Microbiology 07/03/22 Urine Culture - Final, Complete Escherichia coli See Comments 07/03/22 Blood Culture - Final, Complete No growth Assessment/Plan Assessment/Plan Assess & Plan/Chief Complaint 1. Acute Respiratory Failure with Hypoxia--on NC 2. Acute UTI with Sepsis--on IV meropenem, TPN started 3. Seizure with Postictal state--on IV Keppra 4. Hypokalemia-on TPN 5. Hypomagnesemia--on TPN 6. Coarse lungs/Distended Abdomen--Infiltrate in RLL on CXR and ileus on abdominal x-ray, repeat CXR today 7. Lethargy--CT of head shows no acute process 8. Will likely need feeding tube if patient does not start to eat/drink/take pills--will discuss with guardian--will do bedside swallow evaluation since is more awake/alert Clinical Quality Measures Admission Status Admission Dx 1. Acute Respiratory Failure with Hypoxia--on vapotherm 2. Seizure with Post-Ictal State--IV keppra 3. UTI with Sepsis--on IV rocephin and IVFs 4. 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 History of cerebral palsy--wheelchair bound SETH CANALES DO July 12, 2022 08:27
[2022-07-12] MEDS: PANTOPRAZOLE 40 MG (PROTONIX) VIAL IV SCH (08:35)
[2022-07-12] MEDS: levETIRAcetam 1000 mg/NS 100ml 100 ML IV SCH ×2 (08:36→20:48)
[2022-07-12 09:36] LABS: ALBUMIN 2.5 GM/DL (3.2-4.5); POTASSIUM 4.9 MMOL/L (3.6-5.0)
[2022-07-12 09:38] LABS: CALCIUM 8.5 MG/DL (8.5-10.1)
[2022-07-12 09:39] LABS: TOTAL PROTEIN 6.1 GM/DL (6.4-8.2)
[2022-07-12 09:40] LABS: BILIRUBIN,TOTAL 0.4 MG/DL (0.1-1.0)
[2022-07-12 09:42] LABS: CREATININE SERUM 0.7 MG/DL (0.60-1.30); PHOSPHORUS 3.7 MG/DL (2.3-4.7)
[2022-07-12 09:45] LABS: MAGNESIUM 1.8 MG/DL (1.6-2.4)
--- NOTE | 2022-07-12 10:18 | Diagnostic Imaging Report ---
INDICATION: Pneumonia, follow-up. Frontal chest obtained at 0853 a.m. compared to 07/09/2022. There is mild cardiomegaly. There is central vascular congestion with patchy bibasilar infiltrates, similar to the previous study. There is no pneumothorax or gross pleural fluid. Right-sided PICC line is seen with tip overlying low SVC. IMPRESSION: Cardiomegaly with central vascular congestion with unchanged bibasilar infiltrates right greater than left. There is no pneumothorax or significant sized pleural effusion. Dictated by: Dictated on workstation # [id number]
--- NOTE | 2022-07-12 10:41 | ST Dysphagia Evaluation ---
Speech Evaluation-General Medical Diagnosis Respiratory Failure Onset Date: July 03, 2022 Therapy Diagnosis Therapy Diagnosis: Oropharyngeal Dysphagia (Baseline) Precautions Precautions: Pressure Ulcer, Aspiration Precautions/Isolations: Contact Isolation, Aspiration, Pressure Ulcer Referral Referring Physician: Dr. Noe Reason for Referral: Evaluation/Treatment Medical History Reviewed History: Yes Speech PLF/Current-Dysphagia Prior Level of Function The clinician does not have information regarding the patient's prior level of function. The patient did complete a modified barium swallow in January 2022 wh ich revealed silent aspiration of mildly thick (nectar) liquid and no aspiration of moderately thick (honey) liquid. Following the most recent video swallow, speech pathology recommended MM5 with moderately thick liquids. The clinician does not have information regarding compliance of recommendations following the video swallow. Due to the patient's prior video swallow, the only liquid consistency the clinician will be able to safety trial is moderately thick liquids. Subjective The patient was reclined in bed, awake and alert, upon entrance to the patient's room by the clinician. The patient makes immediate eye contact with the clinician when his name was spoken and smiles in response to a verbal greeting. The patient's head of bed is elevated for safe swallowing position. To note, the patient displays posturing of a right head tilt. The patient is unable to co rrect posture during gentle tactile cues of verbal clinician prompting/direct modeling. As the patient laughs, audible hypopharyngeal secretions are present. The patient's vocal quality is clear at rest. Prior to the initial P.O. trial, the patient displays a rigorous, productive cough. Cognitive Status The patient does not respond to verbal or nonverbal orientation questions provided by the clinician. The patient remains cooperative and pleasant throughout the evaluation. Oral Motor Skills Dentition: Natural Ability to Follow Directions: Poor Oral Expression Ability: Severe Impairment Voice Voice Phonatory-Based Quality: Normal Voice Pitch: Normal Voice Loudness: Normal Face Facial Symmetry: Symmetrical (Grossly symmetrical.) Oral-Facial Assessment Oral-Facial Dentition: Normal Labial Seal Description: Normal Smile: Normal Volitional Dry Swallow: No Voluntary Cough: No Can Clear Throat Volitionally: No Productive Cough: Yes Productive Throat Clear: No Dysphagia Evaluation Consistencies Presented: Honey Thick Liquid (Via teaspoon, straw.), Pureed Mildly reduced oral and lingual coordination was present with all consistencies, however, complete posterior transfer was present. Anterior spillage was visualized from the right labial side (mild) with moderately-thick liquids.. Laryngeal elevation was present to palpation. The patient does not display s/s of suspected aspiration with honey-thick liquids via teaspoon or straw (eight ounces) or puree (four ounces). The patient was challenged with subsequent straw drinks of honey-thick liquids and s/s of suspected aspiration were not displayed. The patient's vocal quality remained clear following each swallow. Dietary Recommendations: Pureed Liquid Recommendations: Honey Consistancy Recommendations: - PU4 and moderately thick liquids (honey-thick liquids), as tolerated. - Fully upright and alert for all P.O. intake. - Full, 1:1 feeding and supervision throughout P.O. - Crush medication and place in puree for administration. - Monitor for medical and clinical s/s of suspected aspiration with P.O. intake. If demonstrated, the patient should be made N.P.O. and speech pathology should be contacted. - As the patient has a history of silent aspiration with mildly thick liquids, an upgrade in diet consistency cannot safely occur without completion of a modified barium swallow. Regardless of the absence of s/s of suspected aspiration with puree and moderately thick liquids, the patient remains at an elevated risk for aspiration due to natural posture displayed. If concerns continue or the patient's respiratory status does not improve, the clinician highly recommends completion of a modified barium swallow study. Speech Short Term Goals Short Term Goals Short Term Goals 1. Staff, caregivers, and family will display safe swallowing strategies with 80% accuracy, independently. Time Frame-STG: Three Days. Speech Shelter Goals Shelter Goals 1. The patient will tolerate the least restrictive diet consistency without s/s of suspected aspiration. Time Frame: One Week. Speech-Plan Treatment Plan Speech Therapy Treatment Plan: Continue Plan of Care Treatment Duration: July 19, 2022 Frequency: 3 times per week Estimated Hrs Per Day: .25 hour per day Rehab Potential: Poor Safety Risks/Education Teaching Recipient: Patient Teaching Methods: Demonstration, Discussion Response to Teaching: Reinforcement Needed Education Topics Provided: Results, Recommendations, Plan of Care, Safe Swallowing Strategies Time Speech Therapy Time In: 09:45 Speech Therapy Time Out: 10:05 DATE: July 12, 2022 Total Billed Time: 20 Billed Treatment Time 1, GT ESCALANTE [facility] ST July 12, 2022 10:41
--- NOTE | 2022-07-12 13:45 | Diagnostic Imaging Report ---
ABDOMEN/KUB 1VIEW INDICATION: Abdominal pain. COMPARISON: 07/09/2022. TECHNIQUE: AP view of the abdomen. FINDINGS: Nonobstructive bowel gas pattern. Mild gaseous distention of the colon is noted. Small right pleural effusion. Stable degenerative dextrocurvature of the thoracolumbar spine. Vascular calcifications are noted. Dysplastic right hip with chronic superior migration of the femoral head is stable in appearance. IMPRESSION: 1. Mild gaseous distention of the colon likely relates to resolving ileus. Dictated by: Dictated on workstation # [id number]
[2022-07-12] MEDS: [UNRECOGNIZED DRUG - OTHER] IV SCH ×11 (17:09)
[2022-07-12] MEDS: SODIUM ACETATE IV SCH ×11 (17:09)
[2022-07-12] MEDS: SODIUM CHLORIDE IV SCH ×11 (17:09)
[2022-07-12] MEDS: ENOXAPARIN 40 MG/0.4 ML (LOVENOX) SYR SC SCH (17:10)
[2022-07-12] MEDS: 1/2 NS IV SOLUTION 1,000 ML IV SCH (17:41)
[2022-07-13] MEDS: MEROPENEM 1,000 MG in NS (IVPB) 100 ML IV SCH ×3 (01:40→16:23)
[2022-07-13 03:34] VITALS: BP 110/58
[2022-07-13 05:54] LABS: ALBUMIN 2.2 GM/DL (3.2-4.5); BILIRUBIN,TOTAL 0.3 MG/DL (0.1-1.0); CALCIUM 8.6 MG/DL (8.5-10.1); CREATININE SERUM 0.68 MG/DL (0.60-1.30); PHOSPHORUS 4.5 MG/DL (2.3-4.7); POTASSIUM 4.8 MMOL/L (3.6-5.0); TOTAL PROTEIN 5.4 GM/DL (6.4-8.2)
[2022-07-13 08:13] VITALS: BP 110/55
[2022-07-13] MEDS: PANTOPRAZOLE 40 MG (PROTONIX) VIAL IV SCH (08:44)
[2022-07-13] MEDS: levETIRAcetam 1000 mg/NS 100ml 100 ML IV SCH ×2 (08:45→20:25)
[2022-07-13 11:12] VITALS: BP 113/56
--- NOTE | 2022-07-13 15:00 | Progress Note - Hospitalist ---
Subjective HPI/CC On Admission Date Seen by Provider: July 13, 2022 Time Seen by Provider: 11:15 Subjective/Events-last exam He is sitting in his bed. He appears comfortable. He does not express any needs or concerns. Objective Exam Vital Signs Vital Signs Date Time Temp Pulse Resp B/P (MAP) Pulse Ox O2 Delivery O2 Flow Rate FiO2 07/13/22 11:12 36.2 75 18 113/56 (75) 94 Room Air 07/13/22 08:00 4.00 Capillary Refill : Less Than 3 Seconds General Appearance: No Apparent Distress, WD/WN Respiratory: Lungs Clear, No Respiratory Distress Cardiovascular: Regular Rate, Rhythm, No Murmur Gastrointestinal: Normal Bowel Sounds, Soft Extremity: Normal Inspection, No Pedal Edema Neurologic/Psychiatric: Alert, No Motor/Sensory Deficits Skin: Normal Color, Warm/Dry Results/Procedures Lab Laboratory Tests 07/13/22 05:24 Patient resulted labs reviewed. Assessment/Plan Assessment and Plan Assess & Plan/Chief Complaint Acute respiratory failure with hypoxia Sepsis ESBL UTI Chronic indwelling winchester Seizure Dysphagia Cerebral palsy Merrem Keppra TPN Diet advanced, monitor intake DVT prophylaxis: Lovenox Diagnosis/Problems Diagnosis/Problems (1) Sepsis Status: Acute Qualifiers: Sepsis type: sepsis due to unspecified organism Sepsis acute organ dysfunction status: without acute organ dysfunction Qualified Codes: A41.9 - Sepsis, unspecified organism (2) Urinary tract infection Status: Acute Qualifiers: Urinary tract infection type: site unspecified Hematuria presence: without hematuria Qualified Codes: N39.0 - Urinary tract infection, site not specified (3) Urinary tract infection due to extended-spectrum beta lactamase (ESBL) pr oducing Escherichia coli Status: Acute (4) Chronic indwelling Winchester catheter Status: Chronic (5) Seizure Status: Acute (6) Developmental disability Status: Chronic BUTCH AMBRIZ MD July 13, 2022 15:00
[2022-07-13 15:24] VITALS: BP 108/66
[2022-07-13] MEDS: [UNRECOGNIZED DRUG - OTHER] IV SCH ×11 (16:27)
[2022-07-13] MEDS: SODIUM ACETATE IV SCH ×11 (16:27)
[2022-07-13] MEDS: SODIUM CHLORIDE IV SCH ×11 (16:27)
[2022-07-13] MEDS: ENOXAPARIN 40 MG/0.4 ML (LOVENOX) SYR SC SCH (17:09)
[2022-07-13] MEDS: 1/2 NS IV SOLUTION 1,000 ML IV SCH ×2 (17:10→20:25)
[2022-07-13 19:45] VITALS: BP 102/63
[2022-07-14] VITALS (7 sets, daily range): BP systolic 100–134; BP diastolic 54–68
[2022-07-14] MEDS: MEROPENEM 1,000 MG in NS (IVPB) 100 ML IV SCH ×3 (01:04→17:05)
[2022-07-14] MEDS: PANTOPRAZOLE 40 MG (PROTONIX) VIAL IV SCH (08:40)
[2022-07-14] MEDS: levETIRAcetam 1000 mg/NS 100ml 100 ML IV SCH ×2 (08:40→20:02)
[2022-07-14] MEDS: [UNRECOGNIZED DRUG - OTHER] IV SCH ×11 (17:06)
[2022-07-14] MEDS: ENOXAPARIN 40 MG/0.4 ML (LOVENOX) SYR SC SCH (17:06)
[2022-07-14] MEDS: SODIUM ACETATE IV SCH ×11 (17:06)
[2022-07-14] MEDS: SODIUM CHLORIDE IV SCH ×11 (17:06)
--- NOTE | 2022-07-14 17:17 | Progress Note - Hospitalist ---
Subjective HPI/CC On Admission Date Seen by Provider: July 14, 2022 Time Seen by Provider: 11:40 Subjective/Events-last exam He is doing well. He is smiling and appears comfortable. He is speaking to me but his speech is difficult to understand. Objective Exam Vital Signs Vital Signs Date Time Temp Pulse Resp B/P (MAP) Pulse Ox O2 Delivery O2 Flow Rate FiO2 07/14/22 16:35 36.5 84 20 131/63 (85) 94 Room Air 07/14/22 08:00 4.00 Capillary Refill : Less Than 3 Seconds General Appearance: No Apparent Distress, WD/WN Respiratory: Lungs Clear, No Respiratory Distress Cardiovascular: Regular Rate, Rhythm, No Murmur Gastrointestinal: Normal Bowel Sounds, Soft Extremity: Normal Inspection, No Pedal Edema Neurologic/Psychiatric: Alert, Normal Mood/Affect Results/Procedures Lab Patient resulted labs reviewed. Assessment/Plan Assessment and Plan Assess & Plan/Chief Complaint Acute respiratory failure with hypoxia Sepsis ESBL UTI Chronic indwelling w[place]ster Seizure Dysphagia Cerebral palsy Merrem Keppra TPN Diet advanced, monitor intake DVT prophylaxis: Lovenox Diagnosis/Problems Diagnosis/Problems (1) Sepsis Status: Acute Qualifiers: Sepsis type: sepsis due to unspecified organism Sepsis acute organ dysfunction status: without acute organ dysfunction Qualified Codes: A41.9 - Sepsis, unspecified organism (2) Urinary tract infection Status: Acute Qualifiers: Urinary tract infection type: site unspecified Hematuria presence: without hematuria Qualified Codes: N39.0 - Urinary tract infection, site not specified (3) Urinary tract infection due to extended-spectrum beta lactamase (ESBL) producing Escherichia coli Status: Acute (4) Chronic indwelling Winchester catheter Status: Chronic (5) Seizure Status: Acute (6) Developmental disability Status: Chronic BUTCH AMBRIZ MD July 14, 2022 17:17
[2022-07-14] MEDS: 1/2 NS IV SOLUTION 1,000 ML IV SCH (20:03)
[2022-07-15] MEDS: LORazepam INJ 2 MG/ML (ATIVAN) VIAL IV PRN (00:01)
[2022-07-15] MEDS: levETIRAcetam 1000 mg/NS 100ml 100 ML IV SCH (08:03)
[2022-07-15] MEDS: PANTOPRAZOLE 40 MG (PROTONIX) VIAL IV SCH (08:03)
[2022-07-15 08:07] VITALS: BP 100/64
[2022-07-15] MEDS: SENNA W/DOCUSATE (SENOKOT S) TABLET PO SCH ×2 (09:16→19:56)
[2022-07-15 15:42] VITALS: BP 103/64
[2022-07-15] MEDS ORDERED: [UNRECOGNIZED DRUG - OTHER] IV SCH ×10 (17:00)
[2022-07-15] MEDS ORDERED: SODIUM CHLORIDE IV SCH ×10 (17:00)
[2022-07-15] MEDS ORDERED: SODIUM ACETATE IV SCH ×10 (17:00)
[2022-07-15] MEDS: ENOXAPARIN 40 MG/0.4 ML (LOVENOX) SYR SC SCH (17:31)
--- NOTE | 2022-07-15 17:33 | Progress Note ---
Subjective Date Seen by a Provider: July 15, 2022 Time Seen by a Provider: 08:35 Subjective/Events-last exam Fwup acute respiratory failure, UTI with sepsis, seizure with postictal state. Awake and asking to go home. ST did start diet. Objective Exam Vital Signs Date Time Temp Pulse Resp B/P (MAP) Pulse Ox O2 Delivery O2 Flow Rate FiO2 07/15/22 15:42 36.2 96 17 103/64 (77) 96 Nasal Cannula 2.00 07/15/22 08:07 36.6 92 20 100/64 (76) 94 Nasal Cannula 2.00 07/15/22 08:00 High Flow N/C 1.00 07/14/22 23:54 36.4 96 18 134/63 (86) 93 Room Air 07/14/22 20:00 94 Room Air 07/14/22 19:48 36.2 80 18 117/68 (84) 94 Room Air 07/14/22 19:07 High Flow N/C 4.00 I & O 07/15/22 07:00 Intake Total 1770 ml Output Total 3080 ml Balance -1310 ml Capillary Refill : Less Than 3 Seconds General Appearance: No Apparent Distress Neck: Supple Respiratory: Lungs Clear, Decreased Breath Sounds Cardiovascular: Regular Rate, Rhythm Gastrointestinal: normal bowel sounds, soft, distended Extremity: No Calf Tenderness, No Pedal Edema Neurologic/Psychiatric: Alert Results Lab Laboratory Tests 07/15/22 05:19: Glucometer 134H Microbiology 07/03/22 Urine Culture - Final, Complete Escherichia coli See Comments 07/03/22 Blood Culture - Final, Complete No growth Assessment/Plan Assessment/Plan Assess & Plan/Chief Complaint 1. Acute Respiratory Failure with Hypoxia--on NC 2. Acute UTI with Sepsis--on IV meropenem, TPN started 3. Seizure with Postictal state--switch to oral keppra 4. Hypokalemia-on TPN 5. Hypomagnesemia--on TPN 6. Coarse lungs/Distended Abdomen--last x-ray showed improving ileus, start oral senokot-S 7. Lethargy--CT of head shows no acute process 8. Has started oral intake per ST but needs assistance with meals Clinical Quality Measures Admission Status Admission Dx 1. Acute Respiratory Failure with Hypoxia--on vapotherm 2. Seizure with Post-Ictal State--IV keppra 3. UTI with Sepsis--on IV rocephin and IVFs 4. 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 History of cerebral palsy--wheelchair bound SETH CANALES DO July 15, 2022 17:33
[2022-07-15 23:48] VITALS: BP 114/68
[2022-07-16 04:34] LABS: HEMATOCRIT 27 % (40-54); HEMOGLOBIN 8.9 g/dL (13.3-17.7); MEAN CORPUSCULAR HEMOGLOBIN 32 pg (25-34); MEAN CORPUSCULAR HGB CONC 33 g/dL (32-36); MEAN CORPUSCULAR VOLUME 97 fL (80-99); MEAN PLATELET VOLUME 9.6 fL (9.0-12.2); PLATELET COUNT 521 10^3/uL (130-400); WHITE BLOOD COUNT 6.5 10^3/uL (4.3-11.0)
[2022-07-16 04:55] LABS: ALBUMIN 2.6 GM/DL (3.2-4.5); POTASSIUM 4.9 MMOL/L (3.6-5.0)
[2022-07-16 04:57] LABS: CALCIUM 8.6 MG/DL (8.5-10.1)
[2022-07-16 04:58] LABS: TOTAL PROTEIN 6.1 GM/DL (6.4-8.2)
[2022-07-16 05:00] LABS: BILIRUBIN,TOTAL 0.4 MG/DL (0.1-1.0)
[2022-07-16 05:01] LABS: PHOSPHORUS 4.5 MG/DL (2.3-4.7)
[2022-07-16 05:02] LABS: CREATININE SERUM 0.72 MG/DL (0.60-1.30)
[2022-07-16 05:04] LABS: MAGNESIUM 2.1 MG/DL (1.6-2.4)
[2022-07-16] MEDS: 1/2 NS IV SOLUTION 1,000 ML IV SCH (05:39)
[2022-07-16 07:59] VITALS: BP 116/65
[2022-07-16] MEDS: PANTOPRAZOLE 40 MG (PROTONIX) VIAL IV SCH (08:57)
[2022-07-16] MEDS: SENNA W/DOCUSATE (SENOKOT S) TABLET PO SCH (08:57)
[2022-07-16] MEDS ORDERED: NITR-65 PO (10:03)
--- NOTE | 2022-07-16 12:43 | Discharge Summary ---
Diagnosis/Chief Complaint Date of Admission July 03, 2022 at 12:55 Date of Discharge Discharge Date: July 16, 2022 Discharge Diagnosis 1. Acute Respiratory Failure with Hypoxia--resolved 2. Acute UTI with Sepsis--resolved, ESBL positive E. coli 3. Seizure with Postictal state--back on keppra 4. Hypokalemia-resolved 5. Hypomagnesemia--resolved 6. Ileus--improved 7. Lethargy--improved 8. Dysphagia/Aspiration Risk--on pureed 4 diet with honey consistency liquids, was on TPN Reason Hospital Visit This is a 62 year old mentally and developly disabled male with a history of seizure disorder and recurrent UTIs due to a chronic indwelling winchester catheter who was brought to the emergency room via EMS after sustaining a seizure and then becoming hypoxic. He was found to be in a postictal state with oxygen saturation in the 80s. He has been placed on vapotherm and given IV keppra. He also has a UTI. He will be admitted to the medical floor with vapotherm, IVFs, IV antibiotics and IV keppra. Discharge Summary Hospital Course Was the Problem List Reviewed?: Yes Hospital Course This is a 62 year old mentally and developly disabled male with a history of seizure disorder and recurrent UTIs due to a chronic indwelling winchester catheter who was brought to the emergency room via EMS after sustaining a seizure and then becoming hypoxic. He was found to be in a postictal state with oxygen saturation in the 80s. He was placed on vapotherm and given IV keppra. He also has a UTI. He will be admitted to the medical floor with vapotherm, IVFs, IV antibiotics and IV keppra. He was initially given IV rocephin but this was changed to meropenem due to his history of ESBL positive UTIs--his urine culture did grow out ESBL E coli so his meropenem was extended for a full 10 day course. He was able to weaned from vapotherm to oxygen via NC and on discharge he does not qualify for home oxygen. He remained lethargic with no oral intake the first week so a PICC line was placed and TPN was started. Once he was more awake and alert, a bedside swallow evaluation with ST was done and he was started on pureed 4 diet with nectar consistency liquids. He is doing well with this diet as long as he is fed. He was originally on IV keppra but once his diet was started he was switched to oral keppra. He was also noted to have distended abdomen and a KUB revealed an ileus. He was given dulcolax suppositories and his repeat KUB revealed resolving ileus. He is much more awake and alert and is asking to go home. He is completely wheelchair bound at his detention with use of a lift to transport. He will be discharged back to his detention with some change in his meds and on prophylactic macrobid for UTI prevention. I will see him in follow up in 1 week. Labs Laboratory Tests 07/14/22 04:56: Glucometer 130H 07/15/22 05:19: Glucometer 134H 07/16/22 04:24: Red Blood Count 2.79L, Hemoglobin 8.9L, Hematocrit 27L, Red Cell Distribution Width 15.0H, Platelet Count 521H, Blood Urea Nitrogen 48H, Alkaline Phosphatase 331H, Total Protein 6.1L, Albumin 2.6L, Triglycerides Level 193H Procedures None. Discharge Physical Examination Allergies: Coded Allergies: lorazepam (Verified Adverse Reaction, Intermediate, HYPERACTIVITY, 12/07/21) Vitals & I&Os Vital Signs Date Time Temp Pulse Resp B/P (MAP) Pulse Ox O2 Delivery O2 Flow Rate FiO2 07/16/22 11:01 93 Room Air 0.00 07/16/22 07:59 36.6 93 20 116/65 (82) General Appearance: Alert Respiratory: Clear to Auscultation Cardiovascular: Regular Rate Abdominal: Normal Bowel Sounds, Soft Extremities: No Clubbing, No Cyanosis, No Edema Psych/Mental Status: Other (asking to go home) Discharge Home Medications Reviewed and agree with Discharge Medication list on patient's Discharge Instruction sheet Instructions to Patient/Family Please see electronic discharge instructions given to patient. SETH CANALES DO July 16, 2022 12:43
[2022-07-16 13:36] VITALS: BP 116/65
[2022-07-16] MEDS ORDERED: 1/2 NS IV SOLUTION 1,000 ML IV SCH (17:00)
[2022-07-16] MEDS ORDERED: [UNRECOGNIZED DRUG - OTHER] IV SCH ×10 (17:00)
[2022-07-16] MEDS ORDERED: SODIUM ACETATE IV SCH ×10 (17:00)
[2022-07-16] MEDS ORDERED: SODIUM CHLORIDE IV SCH ×10 (17:00)
== END 2022-07-16 13:38 | disposition home or self-care (01) | DRG 698 ==
LOC: EDUNIT# 07:06 → ER 07:08 → CSD 12:55 → 4TH 07-06 09:34
PROVIDERS: ADMIT Family Medicine; ATTEND Family Medicine
PROC: 5A0945A Assistance with Respiratory Ventilation, 24-96 Consecutive Hours, High Flow/Velocity Cannula (ICD-10-PCS; principal; 2022-07-10)
DX: T83.511A Infection and inflammatory reaction due to indwelling urethral catheter, initial encounter (principal); A41.51 Sepsis due to Escherichia coli [E. coli]; J96.01 Acute respiratory failure with hypoxia; Z16.12 Extended spectrum beta lactamase (ESBL) resistance; K56.7 Ileus, unspecified; N39.0 Urinary tract infection, site not specified; G40.909 Epilepsy, unspecified, not intractable, without status epilepticus; G80.9 Cerebral palsy, unspecified; F41.9 Anxiety disorder, unspecified; F79 Unspecified intellectual disabilities; G14 Postpolio syndrome; M24.542 Contracture, left hand; M24.541 Contracture, right hand; M24.575 Contracture, left foot; M24.574 Contracture, right foot; R13.10 Dysphagia, unspecified; F91.8 Other conduct disorders; F22 Delusional disorders; N32.0 Bladder-neck obstruction; E87.6 Hypokalemia; E83.42 Hypomagnesemia; Z79.899 Other long term (current) drug therapy; Z91.09 Other allergy status, other than to drugs and biological substances; Z99.3 Dependence on wheelchair
CPT/HCPCS: 36415; 36569; 70450; 71045; 71275; 74018; 76937; 80053; 81000; 82947; 83605; 83735; 83880; 84100; 84134; 84478; 85007; 85025; 85027; 85379; 85610; 85730; 86141; 87040; 87077; 87088; 87186; 94640; 94760; 94761; 96365; 96367

== ENCOUNTER 2022-09-09 13:34 | Inpatient (IN) | payer MEDICARE, MEDICAID ==
[~2022-09-09] VITALS: Ht 175.3 cm; Wt 76.5 kg
[~2022-09-09 13:34] MED LIST changes: +AMOX1TAB11 PO; +DIPH25TA65 PO; +LEVE100S16 PO; +PNV PO
--- NOTE | 2022-09-09 14:23 | ED GU-Male ---
General Chief Complaint: - Reproductive Stated Complaint: ANTIBIOTICS Nursing Triage Note: PT TO ED WITH CAREGIVER WITH C/O UTI. PT HAD OUTPT UA THAT WAS ESBL POSITIVE AND INSTRUCTED BY PCP TO COME TO ED TO BE ADMITTED FOR IV ANTIBIOTICS. CAREGIVER DENIES FEVER, REPORTS PT HAS BEEN MORE AGGRESSIVE WHICH IS COMMON WHEN PT HAS UTIS. Source: patient Exam Limitations: no limitations (FIFI WILKERSON) History of Present Illness Date Seen by Provider: Sep 09, 2022 Time Seen by Provider: 14:20 Initial Comments Patient has a history of mood disorders, depression, seizures, childhood polio, MR, constipation, CHF who presents the ED with caregiver from [facility] for IV antibiotics for UTI. Patient was diagnosed with a UTI last week. Culture returned positive for ESBL. Currently on Keflex 250 mg prophylactically. Increased agitation over the past 3 to 4 days which is typical with his UTIs. Denies of any fever, vomiting, cough, shortness of breath. Reports mild diarrhea. Patient Was sent by her primary care physician Dr. Starks for IV antibiotics. Patient has been eating at home. Does have a suprapubic catheter. Changed out last . History of frequent UTIs. Staff reports urine in his catheter bag. Patient takes Keppra for seizures. No seizure-like activity. (FIFI WILKERSON) Allergies and Home Medications Allergies Coded Allergies: lorazepam (Verified Adverse Reaction, Intermediate, HYPERACTIVITY, 12/07/21) Patient Home Medication List Home Medication List Reviewed: Yes (FIFI WILKERSON) Acetaminophen (Acetaminophen) 500 Mg Tablet, 500 MG PO Q6H PRN for PAIN-MILD (1- 4) OR TEMPATURE, (Reported) Entered as Reported by: HAROLDO STONE on 06/03/16 1413 Aripiprazole (Aripiprazole) 10 Mg Tablet, 10 MG PO HS, (Reported) Entered as Reported by: MAHENDRA SANTOS on 12/21/21 1542 Calamine/Zinc Oxide (Calamine Lotion) 177 Ml Lotion, TP UD PRN for RASH, (Reported) Entered as Reported by: SREE MICHELLE on 07/01/17 0845 Ciclopirox (Ciclopirox) 8 % Solution, 1 APPLIC TP HS, (Reported) Entered as Reported by: MAHENDRA SANTOS on 12/21/21 154 Citalopram Hydrobromide (Citalopram HBr) 40 Mg Tablet, 40 MG PO DAILY, (Reported) Entered as Reported by: MAHENDRA SANTOS on 12/21/21 154 Cranberry Extract (Cranberry) 425 Mg Capsule, 425 MG PO BID, (Reported) Entered as Reported by: MAHENDRA SANTOS on 12/21/21 154 Hydrocortisone (Hydrocortisone) 1 % Cream..g., 1 APPLIC TP UD PRN for RASH AND ITCHING, (Reported) Entered as Reported by: MAHENDRA SANTOS on 12/21/21 154 Ketoconazole (Ketoconazole) 2 % Shampoo, 1 APPLIC TOP GROSSMAN,WE, (Reported) Entered as Reported by: MAHENDRA SANTOS on 12/21/21 154 Levetiracetam (Keppra) 100 Mg/Ml Solution, 15 ML PO BID, (Reported) Entered as Reported by: MAHENDRA SANTOS on 07/03/22 1604 Menthol (Gold Rosario Medicated Body) 0.8 % Powder, 1 APPLIC TP UD PRN for FOOT ODOR AND WETNESS, (Reported) Entered as Reported by: MAHENDRA SANTOS on 12/21/21 154 Metronidazole (Metronidazole) 0.75 % Lotion, 1 APPLIC TOP HS, (Reported) Entered as Reported by: MAHENDRA SANTOS on 12/21/21 154 Naphazoline HCl/Pheniramine (Opcon-A Eye Drops) 0.84493 %-0.315 % Drops, 1-2 DROPS OU UD PRN for REDNESS/SWELLING FROM ALLERGY, (Reported) Entered as Reported by: SREE MICHELLE on 07/01/17 0852 Nitrofurantoin Monohyd/M-Cryst (Macrobid 100 mg Capsule) 100 Mg Capsule, 1 TAB PO DAILY Prescribed by: SETH CANALES on 07/16/22 1003 Nystatin (Nystatin) 100,000 Unit/Gram Cream..g., 1 APPLIC TOP BID PRN for SCALING RASH, (Reported) Entered as Reported by: MAHENDRA SANTOS on 12/21/21 154 Omeprazole (Omeprazole) 40 Mg Capsule.dr, 40 MG PO DAILY, (Reported) Entered as Reported by: MAHENDRA SANTOS on 03/18/22 1143 Pnv,Calcium 72/Iron/Folic Acid (Westab Plus Tablet) 27 Mg Iron-1 Mg Tablet, 1 EACH PO DAILY, (Reported) Entered as Reported by: MAHENDRA SANTOS on 07/03/22 1604 Polyethylene Glycol 3350 (Polyethylene Glycol 3350) 17 Gm Powd.pack, 17 GM PO BID, (Reported) Entered as Reported by: IRASEMA HUMPHREY on 09/28/18 1428 Sennosides/Docusate Sodium (Stimulant Laxative Plus Tablet) 8.6 Mg-50 Mg Tablet, 2 EA PO BID, (Reported) Entered as Reported by: MAHENDRA SANTOS on 12/21/21 1542 Witch Cornelia (Tucks) 50 % Med..pad, 1 EACH TP QID PRN for HEMMORRHOID DISCOMFORT, (Reported) Entered as Reported by: MAHENDRA SANTOS on 01/08/22 1133 Review of Systems Review of Systems Constitutional: No chills, No diaphoresis, No fever; malaise, weakness EENTM: No hearing loss, No ear pain, No blurred vision Respiratory: No cough, No dyspnea on exertion Cardiovascular: No chest pain Gastrointestinal: No abdominal pain; diarrhea; No nausea Genitourinary: denies burning, denies discharge, denies dysuria, denies frequency Musculoskeletal: No back pain, No joint pain Skin: No change in color Psychiatric/Neurological: Denies Anxiety, Denies Depressed; Other (agitation) (FFII WILKERSON) All Other Systemes Reviewed Negative Unless Noted: Yes (FIFI WILKERSON) Past Bunmenk-Fxiemc-Wvrplr Hx Patient Social History Tobacco Use?: No Use of E-Cig and/or Vaping dev: No Substance use?: No Alcohol Use?: No Pt feels they are or have been: No (FIFI WILKERSON) Immunizations Up To Date Tetanus Booster (TDap): Less than 5yrs PED Vaccines UTD: No (FIFI WILKERSON) Seasonal Allergies Seasonal Allergies: Yes (FIFI WILKERSON) Past Medical History Surgery/Hospitalization HX: PMH: MOOD DISORDER, DEPRESSION, SLEEP DISORDER, SEIZURES, CHILDHOOD POLIO, KYRGYZ MEASLES, MR, CONSTIPATION, CHF Surgeries: Yes Eye Surgery, Gallbladder, Orthopedic Respiratory: No Currently Using CPAP: No Currently Using BIPAP: No Neurological: Yes (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;MR; POST POLIO) Developmental Disorder, Seizure Disorder Sexually Transmitted Disease: No HIV/AIDS: No Genitourinary: Yes Prostate Problems, UTI-Chronic Gastrointestinal: Yes (S/P MATILDE) Chronic Constipation, Chronic Diarrhea, Gall Bladder Disease Musculoskeletal: Yes (CONTRACTURES OF HANDS AND FEET; NON-AMBULATORY) Fractures, Contracture Endocrine: No HEENT: No Loss of Vision: Denies Hearing Impairment: Denies Cancer: No Psychosocial: Yes (MR, SEVERE ADAPTIVE BEHAVIOR DISORDER, CONVULSIONS, DELUSIONAL DISORDER) Anxiety Integumentary: No Blood Disorders: Yes (ANEMIA) Adverse Reaction/Blood Tranf: No (FIFI WILKERSON) Family Medical History PAST SURGICAL HISTORY: -SURGERY ON ALL LEFT TOES -EGD'S/COLONSCOPIES -RIGHT FEMUR FX/ORIF -PROSTATE SURGERY ADDITIONAL PMH: -POST POLIO SYNDROME WITH LEFT SIDED CONTRACTURES, 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--PT IS NON-AMBULATORY -RIGHT FEMUR FX/ORIF WITH 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 OF HIP -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, MINIMAL VERBAL SKILLS -SEVERE ADAPTIVE BEHAVIOR DISORDER -DELUSIONAL DISORDER -CHRONIC INDWELLING SUPRAPUBIC CATHETER FOR BLADDER OUTLET OBSTRUCTION (FIFI WILKERSON) Physical Exam Vital Signs Vital Signs - First Documented 09/09/22 13:45 Temp 36.3 Pulse 69 Resp 14 B/P (MAP) 152/90 (110) Pulse Ox 99 O2 Delivery Room Air (CARMEN PAVON MD) Vital Signs Capillary Refill : Less Than 3 Seconds (FIFI WILKERSON) Height, Weight, BMI Height: 5'9.00" Weight: 180lbs. 1.0oz. 81.935260ed; 25.00 BMI Method:Stated General Appearance: WD/WN, no apparent distress HEENT: PERRL/EOMI, normal ENT inspection, TMs normal, pharynx normal Neck: non-tender, full range of motion, supple Cardiovascular: regular rate, rhythm, no edema, no gallop, no JVD Respiratory: chest non-tender, lungs clear, normal breath sounds, no respiratory distress, no accessory muscle use Gastrointestinal: normal bowel sounds, non tender, soft, no organomegaly, other (Suprapubic) Extremities: normal range of motion, non-tender, normal inspection Neurologic/Psychiatric: alert, other Skin: normal color, warm/dry (FIFI WILKERSON) Procedures/Interventions Date of ETT Placement: Apr 01, 2022 Time of ETT Placement: 2126 (FIFI WILKERSON) Progress/Results/Core Measures Suspected Sepsis SIRS Temperature: Pulse: 69 Respiratory Rate: 14 Laboratory Tests 09/09/22 14:15: White Blood Count 4.8 Blood Pressure 152 /90 Mean: 110 Laboratory Tests 09/09/22 14:15: Creatinine 0.74, Platelet Count 205, Total Bilirubin 0.3 (FIFI WILKERSON) Results/Orders Lab Results Laboratory Tests Test 09/09/22 14:15 Range/Units White Blood Count 4.8 4.3-11.0 10^3/uL Red Blood Count 3.45 L 4.30-5.52 10^6/uL Hemoglobin 10.9 L 13.3-17.7 g/dL Hematocrit 33 L 40-54 % Mean Corpuscular Volume 95 80-99 fL Mean Corpuscular Hemoglobin 32 25-34 pg Mean Corpuscular Hemoglobin Concent 33 32-36 g/dL Red Cell Distribution Width 15.9 H 10.0-14.5 % Platelet Count 205 130-400 10^3/uL Mean Platelet Volume 10.0 9.0-12.2 fL Immature Granulocyte % (Auto) 0 % Neutrophils (%) (Auto) 66 42-75 % Lymphocytes (%) (Auto) 24 12-44 % Monocytes (%) (Auto) 8 0-12 % Eosinophils (%) (Auto) 2 0-10 % Basophils (%) (Auto) 0 0-10 % Neutrophils # (Auto) 3.2 1.8-7.8 X 10^3 Lymphocytes # (Auto) 1.1 1.0-4.0 X 10^3 Monocytes # (Auto) 0.4 0.0-1.0 X 10^3 Eosinophils # (Auto) 0.1 0.0-0.3 10^3/uL Basophils # (Auto) 0.0 0.0-0.1 10^3/uL Immature Granulocyte # (Auto) 0.0 0.0-0.1 10^3/uL Sodium Level 136 135-145 MMOL/L Potassium Level 4.7 3.6-5.0 MMOL/L Chloride Level 103 98-107 MMOL/L Carbon Dioxide Level 24 21-32 MMOL/L Anion Gap 9 5-14 MMOL/L Blood Urea Nitrogen 18 7-18 MG/DL Creatinine 0.74 0.60-1.30 MG/DL Estimat Glomerular Filtration Rate 104 BUN/Creatinine Ratio 24 Glucose Level 123 H 70-105 MG/DL Calcium Level 8.7 8.5-10.1 MG/DL Corrected Calcium 9.1 8.5-10.1 MG/DL Total Bilirubin 0.3 0.1-1.0 MG/DL Aspartate Amino Transf (AST/SGOT) 29 5-34 U/L Alanine Aminotransferase (ALT/SGPT) 53 0-55 U/L Alkaline Phosphatase 350 H 40-136 U/L Total Protein 7.0 6.4-8.2 GM/DL Albumin 3.5 3.2-4.5 GM/DL (CARMEN PAVON MD) Medications Given in ED Current Medications Medications Dose Ordered Sig/Ewelina Route Start Time Stop Time Status Last Admin Dose Admin Meropenem 1000 mg/ Sodium Chloride 100 ml @ 200 mls/hr ONCE ONCE IV 09/09/22 14:30 09/09/22 14:59 DC 09/09/22 14:37 200 MLS/HR (CARMEN PAVON MD) Vital Signs/I&O 09/09/22 13:45 Temp 36.3 Pulse 69 Resp 14 B/P (MAP) 152/90 (110) Pulse Ox 99 O2 Delivery Room Air (CARMEN PAVON MD) Vital Signs/I&O Capillary Refill : Less Than 3 Seconds (FIFI WILKERSON) Blood Pressure Mean: 110 Departure Communication (PCP) Reviewed previous ER visits, H&P, lab testing. History of mood disorders, depression, seizure currently on Keppra, childhood polio, MR, CHF who presents ED from senior living with [place] support system for UTI. Follows Dr. Kendall his primary care physician. Tested positive for ESBL. Does take Keflex 250 mg prophylactically daily which is not susceptible to ESBL. After reviewing previous visits urine cultures from July 03, 2022 susceptible to meropenem which was given here. Increased agitation which is typically associated to his UTI. Few episodes of diarrhea. No fever. Otherwise at his normal baseline. Patient was afebrile and nontachycardic. General lab work with urinalysis was ordered. Normal white blood count, kidney function. Provided meropenem. Did not meet SIRS criteria. Patient was discussed with Dr. Alejandro hospitalist on-call for Dr. CANALES's patients. Agreed to admission. Patient had his suprapubic catheter replaced last . Gets this changed out every 2 weeks. (FIFI WILKERSON) Impression Primary Impression: Urinary tract infection Disposition: ADMITTED INPATIENT Condition: Stable Admissions Decision to Admit Reason: Admit from ER (General) Decision to Admit/Date: Sep 09, 2022 Time/Decision to Admit Time: 14:51 (FIFI WILKERSON) Departure-Patient Inst. Referrals: SETH CANALES DO (PCP/Family) Primary Care Physician ATTENDING PHYSICIAN NOTE: I was physically present as attending physician in the emergency department during the care of this patient, but I was not directly involved in the decision making or delivery of care for this patient. (CARMEN PAVON MD) FIFI WILKERSON Sep 09, 2022 14:23 CARMEN PAVON MD Sep 09, 2022 21:12
[2022-09-09] MEDS ORDERED: MEROPENEM 1,000 MG in NS (IVPB) 100 ML IV ONE (14:30)
[2022-09-09 14:39] LABS: ALBUMIN 3.5 GM/DL (3.2-4.5)
[2022-09-09 14:40] LABS: POTASSIUM 4.7 MMOL/L (3.6-5.0)
[2022-09-09 14:41] LABS: BASOPHILS % (AUTO) 0 % (0-10); CALCIUM 8.7 MG/DL (8.5-10.1); EOSINOPHILS # (AUTO) 0.1 10^3/uL (0.0-0.3); EOSINOPHILS % (AUTO) 2 % (0-10); HEMATOCRIT 33 % (40-54); HEMOGLOBIN 10.9 g/dL (13.3-17.7); LYMPHOCYTES # (AUTO) 1.1 X 10^3 (1.0-4.0); LYMPHOCYTES % (AUTO) 24 % (12-44); MEAN CORPUSCULAR HEMOGLOBIN 32 pg (25-34); MEAN CORPUSCULAR HGB CONC 33 g/dL (32-36); MEAN CORPUSCULAR VOLUME 95 fL (80-99); MONOCYTES # (AUTO) 0.4 X 10^3 (0.0-1.0); MONOCYTES % (AUTO) 8 % (0-12); NEUTROPHILS # (AUTO) 3.2 X 10^3 (1.8-7.8); NEUTROPHILS % (AUTO) 66 % (42-75); PLATELET COUNT 205 10^3/uL (130-400); WHITE BLOOD COUNT 4.8 10^3/uL (4.3-11.0)
[2022-09-09 14:44] LABS: BILIRUBIN,TOTAL 0.3 MG/DL (0.1-1.0)
[2022-09-09 14:46] LABS: CREATININE SERUM 0.74 MG/DL (0.60-1.30)
--- NOTE | 2022-09-09 15:31 | History & Physical ---
History of Present Illness HPI/Chief Complaint CC: ESBL UTI with suprapubic catheter HPI: This is a 62yoWM [place] patient of Dr Noe who presented to the ER wit h confusion and ESBL on urine culture per primary care provider. Patient was placed on meropenem in the ER and will continue that regimen. Currently he is doing much better and his caregiver is at the bedside. Home medication will be restarted. Source: caregiver Exam Limitations: other (Intellectual delay) Date Seen 09/09/22 Time Seen by a Provider: 18:15 Attending Physician Tish Noe DO PCP Admitting Physician: Attending Physician: Referring Physician Date of Admission Home Medications & Allergies Home Medications Reviewed patient Home Medication Reconciliation performed by pharmacy medication reconciliations registered pharmacy technician and/or nursing. Patients Allergies have been reviewed. Allergies Allergies Coded Allergies lorazepam (Verified Adverse Reaction, Intermediate, HYPERACTIVITY, 12/07/21) Past Crnkcys-Diwuom-Impvwa Hx Past Med/Social Hx: Reviewed Nursing Past Med/Soc Hx, Reviewed and Corrections made Patient Social History Marrital Status: single Employed/Student: unemployed Alcohol Use: Denies Use Smoking Status: Never a Smoker 2nd Hand Smoke Exposure: No Recent Hopitalizations: No Immunizations Up To Date Tetanus Booster (TDap): Less than 5yrs Pediatric: No Date of Pneumonia Vaccine: Jan 23, 2015 Date of Influenza Vaccine: Dec 24, 2021 Seasonal Allergies Seasonal Allergies: Yes Past Medical History Surgeries: Eye Surgery, Gallbladder, Orthopedic Currently Using CPAP: No Currently Using BIPAP: No Neurological: Developmental Disorder, Seizure Disorder Sexually Transmitted Disease: No HIV/AIDS: No Genitourinary: Prostate Problems, UTI-Chronic Gastrointestinal: Chronic Constipation, Chronic Diarrhea, Gall Bladder Disease Musculoskeletal: Fractures, Contracture Loss of Vision: Denies Hearing Impairment: Denies Psychosocial: Anxiety History of Blood Disorders: Yes (ANEMIA) Adverse Reaction to Blood Olmos: No Family History PAST SURGICAL HISTORY: -SURGERY ON ALL LEFT TOES -EGD'S/COLONSCOPIES -RIGHT FEMUR FX/ORIF -PROSTATE SURGERY ADDITIONAL PMH: -POST POLIO SYNDROME WITH LEFT SIDED CONTRACTURES, 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--PT IS NON-AMBULATORY -RIGHT FEMUR FX/ORIF WITH 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 OF HIP -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, MINIMAL VERBAL SKILLS -SEVERE ADAPTIVE BEHAVIOR DISORDER -DELUSIONAL DISORDER -CHRONIC INDWELLING SUPRAPUBIC CATHETER FOR BLADDER OUTLET OBSTRUCTION Review of Systems Constitutional: see HPI Physical Exam Physical Exam Vital Signs Vital Signs - First Documented 09/09/22 13:45 Temp 36.3 Pulse 69 Resp 14 B/P (MAP) 152/90 (110) Pulse Ox 99 O2 Delivery Room Air Capillary Refill : Less Than 3 Seconds Height, Weight, BMI Height: 5'9.00" Weight: 180lbs. 1.0oz. 81.564459sb; 25.00 BMI Method:Stated General Appearance: No Apparent Distress, WD/WN Eyes: Bilateral Eye Normal Inspection, Bilateral Eye PERRL HEENT: PERRL/EOMI, TMs Normal, Normal ENT Inspection, Pharynx Normal Neck: Full Range of Motion, Normal Inspection, Non Tender, Supple, Carotid Bruit Respiratory: Chest Non Tender, Lungs Clear, Normal Breath Sounds, No Accessory Muscle Use, No Respiratory Distress Cardiovascular: Regular Rate, Rhythm, No Edema, No Gallop, No JVD, No Murmur, Normal Peripheral Pulses Gastrointestinal: Normal Bowel Sounds, No Organomegaly, No Pulsatile Mass, Non Tender, Soft Back: Normal Inspection, No CVA Tenderness, No Vertebral Tenderness Extremity: Normal Capillary Refill, Normal Inspection, Normal Range of Motion, Non Tender, No Calf Tenderness, No Pedal Edema Neurologic/Psychiatric: Alert, No Motor/Sensory Deficits, infant babysitter II-XII Norm as Tested, Disoriented Skin: Normal Color, Warm/Dry Lymphatic: No Adenopathy Results Results/Procedures Labs Laboratory Tests 09/09/22 14:15 Patient resulted labs reviewed. Assessment/Plan Admission Diagnosis Assessment: ESBL UTI Confusion Intellectual delay Suprapubic catheter Seizure disorder Plan: Supportive care Meropenem Home meds Admission Status: Inpatient Order (span 2 midnights) Reason for Inpatient Admission: ESBL UTI with intellectual delay with suprapubic catheter SAMANTHA HANLEY DO Sep 09, 2022 15:31
[2022-09-09] MEDS ORDERED: CALCIUM CARBONATE 500 MG (TUMS) TAB.CHEW PO PRN (16:30)
[2022-09-09] MEDS ORDERED: MELATONIN 3 MG TABLET PO PRN (16:30)
[2022-09-09] MEDS ORDERED: LACTULOSE SYRUP 10GM/15ML (ENULOSE) 30ML UDC PO PRN (16:30)
[2022-09-09] MEDS ORDERED: BISACODYL 10 MG SUPP (DULCOLAX) PR PRN (16:30)
[2022-09-09] MEDS ORDERED: ONDANSETRON 4 MG (ZOFRAN) ORAL DISSOLVE TAB PO PRN (16:30)
[2022-09-09] MEDS ORDERED: ONDANSETRON 4 MG/2 ML (SDV) Z0FRAN IV PRN (16:30)
[2022-09-09] MEDS ORDERED: diphenhydrAMINE 50 MG/ML INJ (BENADRYL) IVP PRN (16:30)
[2022-09-09] MEDS ORDERED: MILK OF MAGNESIA 400 MG/5 ML 30 ML UDC PO PRN (16:30)
[2022-09-09] MEDS ORDERED: ACETAMINOPHEN 325 MG TABLET PO PRN (16:30)
[2022-09-09] MEDS ORDERED: polyethylene glycoL POWDER 17 GM (MIRALAX) PACK PO PRN (16:30)
[2022-09-09] MEDS ORDERED: diphenhydrAMINE 25 MG TAB (BENADRYL) PO PRN (16:30)
[2022-09-09] MEDS ORDERED: ANTACID SUSP 30 ML UDC (MYLANTA) PO PRN (16:30)
[2022-09-09 16:35] VITALS: BP 126/84
[2022-09-09 16:49] LABS: BILIRUBIN,URINE NEGATIVE (NEGATIVE); CLARITY,URINE CLEAR; COLOR,URINE YELLOW; GLUCOSE, URINE (UA) NEGATIVE (NEGATIVE); KETONES,URINE NEGATIVE (NEGATIVE); LEUKOCYTE ESTERASE ,URINE 3+ (NEGATIVE); NITRITE,URINE POSITIVE (NEGATIVE); PROTEIN,URINE NEGATIVE (NEGATIVE)
[2022-09-09 16:58] VITALS: BP 126/84
[2022-09-09 16:58] LABS: BACTERIA,URINE TRACE /HPF; RBC,URINE RARE /HPF; WBC,URINE 25-50 /HPF
[2022-09-09] MEDS: NS IV 1000 ML 1,000 ML IV SCH (17:02)
[2022-09-09] MEDS: ENOXAPARIN 40 MG/0.4 ML (LOVENOX) SYR SC SCH (17:02)
[2022-09-09] MEDS ORDERED: RT-ALBUTEROL SULF 2.5 MG/3 ML PRE-MIX VIAL INH PRN (17:15)
[2022-09-09] MEDS ORDERED: MEROPENEM 1,000 MG in NS (IVPB) 100 ML IV SCH (19:00)
[2022-09-09 20:05] VITALS: BP 134/83
[2022-09-09] MEDS: MEROPENEM 500 MG/NS 100 ML IVPB IV SCH ×2 (20:51)
[2022-09-09] MEDS: SENNOSIDES 8.6 MG (SENOKOT) TAB PO SCH (20:51)
[2022-09-09] MEDS: DOCUSATE SODIUM 100 MG (COLACE) CAP PO SCH (20:51)
[2022-09-10] VITALS (7 sets, daily range): BP systolic 102–156; BP diastolic 52–88
[2022-09-10] MEDS: MEROPENEM 500 MG/NS 100 ML IVPB IV SCH ×8 (03:43→19:57)
--- NOTE | 2022-09-10 05:39 | Progress Note ---
Subjective Date Seen by a Provider: Sep 10, 2022 Time Seen by a Provider: 11:00 Subjective/Events-last exam No major issues Home meds reviewed and restarted NO fever Review of Systems General: Fatigue, Malaise Objective Exam Last Set of Vital Signs Vital Signs Date Time Temp Pulse Resp B/P (MAP) Pulse Ox O2 Delivery O2 Flow Rate FiO2 09/10/22 03:45 36.7 75 15 156/72 (100) 97 Room Air Capillary Refill : Less Than 3 Seconds I&O Intake and Output 09/10/22 00:00 Intake Total 780 ml Output Total 2100 ml Balance -1320 ml Intake Oral 680 ml IV Total 100 ml Output Urine Total 2100 ml Daily Weight Change No General: Alert, Other (intellectually delayed) Lungs: Clear to Auscultation Heart: Regular Rate Results Lab Laboratory Tests 09/09/22 14:15: White Blood Count 4.8, Red Blood Count 3.45L, Hemoglobin 10.9L, Hematocrit 33L, Mean Corpuscular Volume 95, Mean Corpuscular Hemoglobin 32, Mean Corpuscular Hemoglobin Concent 33, Red Cell Distribution Width 15.9H, Platelet Count 205, Mean Platelet Volume 10.0, Immature Granulocyte % (Auto) 0, Neutrophils (%) (Auto) 66, Lymphocytes (%) (Auto) 24, Monocytes (%) (Auto) 8, Eosinophils (%) (Auto) 2, Basophils (%) (Auto) 0, Neutrophils # (Auto) 3.2, Lymphocytes # (Auto) 1.1, Monocytes # (Auto) 0.4, Eosinophils # (Auto) 0.1, Basophils # (Auto) 0.0, Immature Granulocyte # (Auto) 0.0, Sodium Level 136, Potassium Level 4.7, Chloride Level 103, Carbon Dioxide Level 24, Anion Gap 9, Blood Urea Nitrogen 18, Creatinine 0.74, Estimat Glomerular Filtration Rate 104, BUN/Creatinine Ratio 24, Glucose Level 123H, Calcium Level 8.7, Corrected Calcium 9.1, Total Bilirubin 0.3, Aspartate Amino Transf (AST/SGOT) 29, Alanine Aminotransferase (ALT/SGPT) 53, Alkaline Phosphatase 350H, Total Protein 7.0, Albumin 3.5 09/09/22 16:40: Urine Color YELLOW, Urine Clarity CLEAR, Urine pH 6.0, Urine Specific [place] <=1.005, Urine Protein NEGATIVE, Urine Glucose (UA) NEGATIVE, Urine Ketones NEGATIVE, Urine Nitrite POSITIVEH, Urine Bilirubin NEGATIVE, Urine Urobilinogen 0.2, Urine Leukocyte Esterase 3+H, Urine RBC (Auto) 1+H, Urine RBC RARE, Urine WBC 25-50H, Urine Squamous Epithelial Cells NONE, Urine Crystals NONE, Urine Bacteria TRACE, Urine Casts NONE, Urine Mucus NEGATIVE, Urine Culture Indicated YES Assessment/Plan Assessment/Plan Assess & Plan/Chief Complaint Assessment: ESBL UTI Confusion Intellectual delay Suprapubic catheter Seizure disorder Plan: Supportive care Meropenem [facility] SAMANTHA HANLEY DO Sep 10, 2022 05:39
[2022-09-10 06:12] LABS: BASOPHILS % (AUTO) 0 % (0-10); EOSINOPHILS # (AUTO) 0.1 10^3/uL (0.0-0.3); EOSINOPHILS % (AUTO) 3 % (0-10); HEMATOCRIT 32 % (40-54); HEMOGLOBIN 10.9 g/dL (13.3-17.7); LYMPHOCYTES # (AUTO) 1.2 10^3/uL (1.0-4.0); LYMPHOCYTES % (AUTO) 34 % (12-44); MEAN CORPUSCULAR HEMOGLOBIN 32 pg (25-34); MEAN CORPUSCULAR HGB CONC 34 g/dL (32-36); MEAN CORPUSCULAR VOLUME 95 fL (80-99); MEAN PLATELET VOLUME 9.7 fL (9.0-12.2); MONOCYTES # (AUTO) 0.3 10^3/uL (0.0-1.0); MONOCYTES % (AUTO) 9 % (0-12); NEUTROPHILS % (AUTO) 54 % (42-75); PLATELET COUNT 180 10^3/uL (130-400); WHITE BLOOD COUNT 3.6 10^3/uL (4.3-11.0)
[2022-09-10] MEDS: NS IV 1000 ML 1,000 ML IV SCH ×2 (06:14→17:57)
[2022-09-10 06:23] LABS: ALBUMIN 3.5 GM/DL (3.2-4.5); POTASSIUM 4.7 MMOL/L (3.6-5.0)
[2022-09-10 06:24] LABS: CALCIUM 9.1 MG/DL (8.5-10.1)
[2022-09-10 06:26] LABS: TOTAL PROTEIN 6.8 GM/DL (6.4-8.2)
[2022-09-10 06:27] LABS: BILIRUBIN,TOTAL 0.3 MG/DL (0.1-1.0)
[2022-09-10 06:29] LABS: CREATININE SERUM 0.74 MG/DL (0.60-1.30)
[2022-09-10] MEDS: SENNOSIDES 8.6 MG (SENOKOT) TAB PO SCH (09:11)
[2022-09-10] MEDS: DOCUSATE SODIUM 100 MG (COLACE) CAP PO SCH ×2 (09:11→19:57)
[2022-09-10] MEDS ORDERED: MENT113P8 TP (10:27)
[2022-09-10] MEDS ORDERED: CEPH250C PO (10:27)
[2022-09-10] MEDS ORDERED: LEVE100S16 PO (10:27)
[2022-09-10] MEDS ORDERED: ACETAMINOPHEN 500 MG TAB (TYLENOL) PO PRN (12:15)
[2022-09-10] MEDS ORDERED: CALAMINE LOTION 6 OZ. BOTTLE TP PRN (12:15)
[2022-09-10] MEDS ORDERED: MENTHOL TP PRN (12:15)
[2022-09-10] MEDS ORDERED: NYSTATIN CREAM (MYCOSTATIN) 30 GM TUBE TP PRN (12:15)
[2022-09-10] MEDS ORDERED: [UNRECOGNIZED DRUG - OTHER] OU PRN (12:15)
[2022-09-10] MEDS ORDERED: NON-FORMULARY MEDICATION 1 EA EA (Ketoconazole 1 APPLIC) TOP SCH (12:15)
[2022-09-10] MEDS ORDERED: HYDROCORTISONE 1% CREAM 30 GM TUBE TP PRN (12:15)
[2022-09-10] MEDS ORDERED: WITCH HAZEL(TUCKS) 40 EA JAR TOP PRN (12:45)
[2022-09-10] MEDS: ENOXAPARIN 40 MG/0.4 ML (LOVENOX) SYR SC SCH (14:54)
[2022-09-10] MEDS: polyethylene glycoL POWDER 17 GM (MIRALAX) PACK PO SCH (19:57)
[2022-09-10] MEDS: SENNA W/DOCUSATE (SENOKOT S) TABLET PO SCH (19:58)
[2022-09-10] MEDS: CRANBERRY EXTRACT 425 MG PO SCH (22:13)
[2022-09-10] MEDS: NON-FORMULARY MEDICATION 1 EA EA (Metronidazole 1 APPLIC) TOP SCH (22:13)
[2022-09-10] MEDS: CICLOPIROX TP SCH (22:13)
[2022-09-11] MEDS: MEROPENEM 500 MG/NS 100 ML IVPB IV SCH ×8 (03:33→22:05)
[2022-09-11 03:37] VITALS: BP 116/71
[2022-09-11 05:33] LABS: BASOPHILS % (AUTO) 1 % (0-10); EOSINOPHILS # (AUTO) 0.1 10^3/uL (0.0-0.3); EOSINOPHILS % (AUTO) 2 % (0-10); HEMATOCRIT 29 % (40-54); HEMOGLOBIN 9.3 g/dL (13.3-17.7); LYMPHOCYTES # (AUTO) 1.3 10^3/uL (1.0-4.0); LYMPHOCYTES % (AUTO) 34 % (12-44); MEAN CORPUSCULAR HEMOGLOBIN 31 pg (25-34); MEAN CORPUSCULAR HGB CONC 32 g/dL (32-36); MEAN CORPUSCULAR VOLUME 97 fL (80-99); MEAN PLATELET VOLUME 9.7 fL (9.0-12.2); MONOCYTES # (AUTO) 0.4 10^3/uL (0.0-1.0); MONOCYTES % (AUTO) 10 % (0-12); NEUTROPHILS % (AUTO) 53 % (42-75); PLATELET COUNT 173 10^3/uL (130-400); WHITE BLOOD COUNT 3.8 10^3/uL (4.3-11.0)
[2022-09-11 05:55] LABS: ALBUMIN 3.1 GM/DL (3.2-4.5); BILIRUBIN,TOTAL 0.3 MG/DL (0.1-1.0); CALCIUM 8.9 MG/DL (8.5-10.1); CREATININE SERUM 0.79 MG/DL (0.60-1.30); POTASSIUM 4.4 MMOL/L (3.6-5.0)
[2022-09-11] MEDS: NS IV 1000 ML 1,000 ML IV SCH ×2 (08:01→22:07)
[2022-09-11] MEDS: DOCUSATE SODIUM 100 MG (COLACE) CAP PO SCH ×2 (08:03→22:07)
[2022-09-11] MEDS: SENNA W/DOCUSATE (SENOKOT S) TABLET PO SCH ×2 (08:03→22:05)
[2022-09-11] MEDS: PRENATAL VITAMIN 1 EA TAB PO SCH (08:03)
[2022-09-11] MEDS: PANTOPRAZOLE 40 MG (PROTONIX) TAB PO SCH (08:03)
[2022-09-11] MEDS: polyethylene glycoL POWDER 17 GM (MIRALAX) PACK PO SCH ×2 (08:04→22:07)
[2022-09-11] MEDS: CRANBERRY EXTRACT 425 MG PO SCH ×2 (08:16→22:06)
[2022-09-11 08:49] VITALS: BP 147/91
[2022-09-11] MEDS ORDERED: NON-FORMULARY MEDICATION 1 EA EA (Omeprazole 40 MG) PO SCH (09:00)
--- NOTE | 2022-09-11 11:28 | Progress Note ---
Subjective Date Seen by a Provider: Sep 11, 2022 Time Seen by a Provider: 11:30 Subjective/Events-last exam Patient doing about the same No other concerns No pain Objective Exam Last Set of Vital Signs Vital Signs Date Time Temp Pulse Resp B/P (MAP) Pulse Ox O2 Delivery O2 Flow Rate FiO2 09/11/22 08:49 36.2 86 18 147/91 (109) 91 Room Air 09/11/22 08:00 0.00 Capillary Refill : Less Than 3 Seconds I&O Intake and Output 09/11/22 00:00 Intake Total 2760 ml Output Total 2700 ml Balance 60 ml Intake Oral 1660 ml IV Total 1100 ml Output Urine Total 2700 ml General: Alert, Oriented X3, Cooperative, No Acute Distress Lungs: Clear to Auscultation, Normal Air Movement Heart: Regular Rate, Normal S1, Normal S2, No Murmurs Results Lab Laboratory Tests 09/11/22 05:21: White Blood Count 3.8L, Red Blood Count 2.98L, Hemoglobin 9.3L, Hematocrit 29L, Mean Corpuscular Volume 97, Mean Corpuscular Hemoglobin 31, Mean Corpuscular Hemoglobin Concent 32, Red Cell Distribution Width 16.1H, Platelet Count 173, M [place] Platelet Volume 9.7, Immature Granulocyte % (Auto) 0, Neutrophils (%) (Auto) 53, Lymphocytes (%) (Auto) 34, Monocytes (%) (Auto) 10, Eosinophils (%) (Auto) 2, Basophils (%) (Auto) 1, Neutrophils # (Auto) 2.0, Lymphocytes # (Auto) 1.3, Monocytes # (Auto) 0.4, Eosinophils # (Auto) 0.1, Basophils # (Auto) 0.0, Immature Granulocyte # (Auto) 0.0, Sodium Level 141, Potassium Level 4.4, Chloride Level 109H, Carbon Dioxide Level 25, Anion Gap 7, Blood Urea Nitrogen 24H, Creatinine 0.79, Estimat Glomerular Filtration Rate 102, BUN/Creatinine Ratio 30, Glucose Level 70, Calcium Level 8.9, Corrected Calcium 9.6, Total Bilirubin 0.3, Aspartate Amino Transf (AST/SGOT) 25, Alanine Aminotransferase (ALT/SGPT) 41, Alkaline Phosphatase 363H, Total Protein 6.0L, Albumin 3.1L Microbiology 09/09/22 Urine Culture - Preliminary, Resulted Pseudomonas aeruginosa Assessment/Plan Assessment/Plan Assess & Plan/Chief Complaint Assessment: ESBL UTI Confusion Intellectual delay Suprapubic catheter Seizure disorder Plan: Supportive care Meropenem Home meds SAMANTHA HANLEY DO Sep 11, 2022 11:28
[2022-09-11 11:38] VITALS: BP 151/92
[2022-09-11] MEDS: ENOXAPARIN 40 MG/0.4 ML (LOVENOX) SYR SC SCH (15:11)
[2022-09-11 15:38] VITALS: BP 145/84
--- NOTE | 2022-09-11 18:13 | Physician Query-Final Dx ---
ALIX JEFFERY 09/11/221812: Final Diagnosis Give Final Diagnosis Please give Final Diagnosis The medical record reflects the following clinical scenario: The patient, in the setting of History/Risk factors, chronic suprapubic catheter for bladder outlet obstruction, chronic UTIs, current UTI, intellectual delay, Confusion, incontinent of bowel Clinical Findings urine culture positive for ESBL, suprapubic catheter present on admission Treatment IV antibiotics, routine cath care Question: Can you specify if the UTI is due to/associated with suprapubic urinary catheter ? Yes - UTI is due to/associated with suprapubic urinary catheter No - UTI is not due to/associated with suprapubic urinary catheter Other, with explanation of the clinical findings Clinically undetermined, no explanation for the clinical findings Please clarify and document your clinical opinion in the Progress Notes and Discharge Summary including the definitive and/or presumptive diagnosis, (gibbs spected or probable), related to the above clinical findings. Please include clinical findings supporting your diagnosis. In responding to this query, please exercise your independent professional judgment. The purpose of this communication is to more accurately reflect the complexity of your patients condition. The fact that a question is asked does not imply that any particular answer is desired or expected. Thank you for timely response to this clarification. Alix Jeffery, MSN, RN Clinical Information Clerk [employer] [phone] [email or web address] SAMANTHA HANLEY DO 09/11/229: Final Diagnosis Give Final Diagnosis Yes - UTI is due to/associated with suprapubic urinary catheter ALIX JEFFERY Sep 11, 2022 18:13 SAMANTHA HANLEY DO Sep 11, 2022 19:19
[2022-09-11 20:17] VITALS: BP 142/75
[2022-09-11] MEDS ORDERED: HYDROCORTISONE 1% CREAM 30 GM TUBE TP SCH (21:00)
[2022-09-11] MEDS: NON-FORMULARY MEDICATION 1 EA EA (Metronidazole 1 APPLIC) TOP SCH (22:06)
[2022-09-11] MEDS: CICLOPIROX TP SCH (22:07)
[2022-09-11 23:15] VITALS: BP 145/85
[2022-09-12 03:04] VITALS: BP 134/77
[2022-09-12] MEDS: MEROPENEM 500 MG/NS 100 ML IVPB IV SCH ×4 (03:06→08:20)
[2022-09-12 05:54] LABS: BASOPHILS % (AUTO) 0 % (0-10); EOSINOPHILS # (AUTO) 0.1 10^3/uL (0.0-0.3); EOSINOPHILS % (AUTO) 2 % (0-10); HEMATOCRIT 29 % (40-54); HEMOGLOBIN 9.6 g/dL (13.3-17.7); LYMPHOCYTES # (AUTO) 1.6 10^3/uL (1.0-4.0); LYMPHOCYTES % (AUTO) 37 % (12-44); MEAN CORPUSCULAR HEMOGLOBIN 31 pg (25-34); MEAN CORPUSCULAR HGB CONC 33 g/dL (32-36); MEAN CORPUSCULAR VOLUME 95 fL (80-99); MEAN PLATELET VOLUME 9.4 fL (9.0-12.2); MONOCYTES # (AUTO) 0.4 10^3/uL (0.0-1.0); MONOCYTES % (AUTO) 9 % (0-12); NEUTROPHILS # (AUTO) 2.2 10^3/uL (1.8-7.8); NEUTROPHILS % (AUTO) 52 % (42-75); PLATELET COUNT 156 10^3/uL (130-400); WHITE BLOOD COUNT 4.3 10^3/uL (4.3-11.0)
--- NOTE | 2022-09-12 05:56 | Progress Note ---
Subjective Date Seen by a Provider: Sep 12, 2022 Time Seen by a Provider: 11:00 Objective Exam Last Set of Vital Signs Vital Signs Date Time Temp Pulse Resp B/P (MAP) Pulse Ox O2 Delivery O2 Flow Rate FiO2 09/12/22 03:04 36.4 85 19 134/77 (96) 97 Room Air 0.00 0.00 Capillary Refill : Less Than 3 Seconds I&O Intake and Output 09/12/22 00:00 Intake Total 1695 ml Output Total 2800 ml Balance -1105 ml Intake Oral 1695 ml Output Urine Total 2800 ml # Bowel Movements 1 Results Lab Laboratory Tests 09/12/22 05:45: White Blood Count 4.3, Red Blood Count 3.07L, Hemoglobin 9.6L, Hematocrit 29L, Mean Corpuscular Volume 95, Mean Corpuscular Hemoglobin 31, Mean Corpuscular Hemoglobin Concent 33, Red Cell Distribution Width 15.9H, Platelet Count 156, Mean Platelet Volume 9.4, Immature Granulocyte % (Auto) 0, Neutrophils (%) (Auto) 52, Lymphocytes (%) (Auto) 37, Monocytes (%) (Auto) 9, Eosinophils (%) (Auto) 2, Basophils (%) (Auto) 0, Neutrophils # (Auto) 2.2, Lymphocytes # (Auto) 1.6, Monocytes # (Auto) 0.4, Eosinophils # (Auto) 0.1, Basophils # (Auto) 0.0, Immature Granulocyte # (Auto) 0.0 Microbiology 09/09/22 Urine Culture - Preliminary, Resulted Pseudomonas aeruginosa Assessment/Plan Assessment/Plan Assess & Plan/Chief Complaint Assessment: ESBL UTI Confusion Intellectual delay Suprapubic catheter Seizure disorder Plan: Supportive care Meropenem Home [facility] SAMANTHA HANLEY DO Sep 12, 2022 05:56
[2022-09-12 06:06] LABS: POTASSIUM 4.8 MMOL/L (3.6-5.0)
[2022-09-12 06:07] LABS: CALCIUM 8.8 MG/DL (8.5-10.1)
[2022-09-12 06:09] LABS: TOTAL PROTEIN 6.1 GM/DL (6.4-8.2)
[2022-09-12 06:11] LABS: BILIRUBIN,TOTAL 0.3 MG/DL (0.1-1.0)
[2022-09-12 06:12] LABS: CREATININE SERUM 0.79 MG/DL (0.60-1.30)
[2022-09-12 08:16] VITALS: BP 155/89
[2022-09-12] MEDS: DOCUSATE SODIUM 100 MG (COLACE) CAP PO SCH (08:20)
[2022-09-12] MEDS: PRENATAL VITAMIN 1 EA TAB PO SCH (08:20)
[2022-09-12] MEDS: SENNA W/DOCUSATE (SENOKOT S) TABLET PO SCH (08:20)
[2022-09-12] MEDS: polyethylene glycoL POWDER 17 GM (MIRALAX) PACK PO SCH (08:21)
[2022-09-12] MEDS: PANTOPRAZOLE 40 MG (PROTONIX) TAB PO SCH (08:21)
[2022-09-12] MEDS: CRANBERRY EXTRACT 425 MG PO SCH (08:21)
[2022-09-12 11:57] VITALS: BP 157/91
[2022-09-12] MEDS: NS IV 1000 ML 1,000 ML IV SCH (12:30)
--- NOTE | 2022-09-12 13:43 | Physical Therapy Progress Note ---
Therapy Progress Note PT talked to caregiver present and reports patient is a total assist of 2 to pivot to w/c PLOF. Patient is non ambulatory PLOF. No skilled PT indicated. JOCELYN PRESSLEY PT Sep 12, 2022 13:43
[2022-09-12] MEDS ORDERED: CEPH250C PO (14:50)
[2022-09-12] MEDS ORDERED: LEVO750T PO ×2 (14:50→15:07)
--- NOTE | 2022-09-12 14:51 | Discharge Summary ---
Diagnosis/Chief Complaint Date of Admission Sep 09, 2022 at 15:58 Date of Discharge Discharge Date: Sep 12, 2022 Discharge Diagnosis Pseudomonas UTI Catheter associated Discharge Summary Discharge Physical Examination Allergies: Coded Allergies: lorazepam (Verified Adverse Reaction, Intermediate, HYPERACTIVITY, 12/07/21) Vitals & I&Os Vital Signs Date Time Temp Pulse Resp B/P (MAP) Pulse Ox O2 Delivery O2 Flow Rate FiO2 09/12/22 15:56 36.3 86 18 157/91 93 Room Air 0.00 General Appearance: Alert, Oriented X3, Cooperative Hospital Course Was the Problem List Reviewed?: Yes Uneventful hospital course after he was admitted from the ER for reported ESBL UTI suprapubic catheter associated. Meropenem initiated empirically. Intellectual delay prevented additional details. He was deemed stable for discharge after Pseudomonas pansensitive was noted so he was placed on Levaquin and discharged home. Labs (last 24 hrs) Laboratory Tests 09/09/22 14:15: White Blood Count 4.8, Red Blood Count 3.45L, Hemoglobin 10.9L, Hematocrit 33L, Mean Corpuscular Volume 95, Mean Corpuscular Hemoglobin 32, Mean Corpuscular Hemoglobin Concent 33, Red Cell Distribution Width 15.9H, Platelet Count 205, Mean Platelet Volume 10.0, Immature Granulocyte % (Auto) 0, Neutrophils (%) (Auto) 66, Lymphocytes (%) (Auto) 24, Monocytes (%) (Auto) 8, Eosinophils (%) (Auto) 2, Basophils (%) (Auto) 0, Neutrophils # (Auto) 3.2, Lymphocytes # (Auto) 1.1, Monocytes # (Auto) 0.4, Eosinophils # (Auto) 0.1, Basophils # (Auto) 0.0, Immature Granulocyte # (Auto) 0.0, Sodium Level 136, Potassium Level 4.7, Chloride Level 103, Carbon Dioxide Level 24, Anion Gap 9, Blood Urea Nitrogen 18, Creatinine 0.74, Estimat Glomerular Filtration Rate 104, BUN/Creatinine Ratio 24, Glucose Level 123H, Calcium Level 8.7, Corrected Calcium 9.1, Total Bilirubin 0.3, Aspartate Amino Transf (AST/SGOT) 29, Alanine Aminotransferase (ALT/SGPT) 53, Alkaline Phosphatase 350H, Total Protein 7.0, Albumin 3.5 09/09/22 16:40: Urine Color YELLOW, Urine Clarity CLEAR, Urine pH 6.0, Urine Specific [place] <=1.005, Urine Protein NEGATIVE, Urine Glucose (UA) NEGATIVE, Urine Ketones NEGATIVE, Urine Nitrite POSITIVEH, Urine Bilirubin NEGATIVE, Urine Urobilinogen 0.2, Urine Leukocyte Esterase 3+H, Urine RBC (Auto) 1+H, Urine RBC RARE, Urine WBC 25-50H, Urine Squamous Epithelial Cells NONE, Urine Crystals NONE, Urine Bacteria TRACE, Urine Casts NONE, Urine Mucus NEGATIVE, Urine Culture Indicated YES 09/10/22 05:53: White Blood Count 3.6L, Red Blood Count 3.39L, Hemoglobin 10.9L, Hematocrit 32L, Mean Corpuscular Volume 95, Mean Corpuscular Hemoglobin 32, Mean Corpuscular Hemoglobin Concent 34, Red Cell Distribution Width 15.8H, Platelet Count 180, Mean Platelet Volume 9.7, Immature Granulocyte % (Auto) 1, Neutrophils (%) (Auto) 54, Lymphocytes (%) (Auto) 34, Monocytes (%) (Auto) 9, Eosinophils (%) (Auto) 3, Basophils (%) (Auto) 0, Neutrophils # (Auto) 2.0, Lymphocytes # (Auto) 1.2, Monocytes # (Auto) 0.3, Eosinophils # (Auto) 0.1, Basophils # (Auto) 0.0, Immature Granulocyte # (Auto) 0.0, Sodium Level 142, Potassium Level 4.7, Chl oride Level 108H, Carbon Dioxide Level 27, Anion Gap 7, Blood Urea Nitrogen 17, Creatinine 0.74, Estimat Glomerular Filtration Rate 104, BUN/Creatinine Ratio 23, Glucose Level 69L, Calcium Level 9.1, Corrected Calcium 9.5, Total Bilirubin 0.3, Aspartate Amino Transf (AST/SGOT) 27, Alanine Aminotransferase (ALT/SGPT) 49, Alkaline Phosphatase 391H, Total Protein 6.8, Albumin 3.5 09/11/22 05:21: White Blood Count 3.8L, Red Blood Count 2.98L, Hemoglobin 9.3L, Hematocrit 29L, Mean Corpuscular Volume 97, Mean Corpuscular Hemoglobin 31, Mean Corpuscular Hemoglobin Concent 32, Red Cell Distribution Width 16.1H, Platelet Count 173, Mean Platelet Volume 9.7, Immature Granulocyte % (Auto) 0, Neutrophils (%) (Auto) 53, Lymphocytes (%) (Auto) 34, Monocytes (%) (Auto) 10, Eosinophils (%) (Auto) 2, Basophils (%) (Auto) 1, Neutrophils # (Auto) 2.0, Lymphocytes # (Auto) 1.3, Monocytes # (Auto) 0.4, Eosinophils # (Auto) 0.1, Basophils # (Auto) 0.0, Immature Granulocyte # (Auto) 0.0, Sodium Level 141, Potassium Level 4.4, Chloride Level 109H, Carbon Dioxide Level 25, Anion Gap 7, Blood Urea Nitrogen 24H, Creatinine 0.79, Estimat Glomerular Filtration Rate 102, BUN/Creatinine Ratio 30, Glucose Level 70, Calcium Level 8.9, Corrected Calcium 9.6, Total Bilirubin 0.3, Aspartate Amino Transf (AST/SGOT) 25, Alanine Aminotransferase (ALT/SGPT) 41, Alkaline Phosphatase 363H, Total Protein 6.0L, Albumin 3.1L 09/12/22 05:45: White Blood Count 4.3, Red Blood Count 3.07L, Hemoglobin 9.6L, Hematocrit 29L, Mean Corpuscular Volume 95, Mean Corpuscular Hemoglobin 31, Mean Corpuscular Hemoglobin Concent 33, Red Cell Distribution Width 15.9H, Platelet Count 156, Mean Platelet Volume 9.4, Immature Granulocyte % (Auto) 0, Neutrophils (%) (Auto) 52, Lymphocytes (%) (Auto) 37, Monocytes (%) (Auto) 9, Eosinophils (%) (Auto) 2, Basophils (%) (Auto) 0, Neutrophils # (Auto) 2.2, Lymphocytes # (Auto) 1.6, Monocytes # (Auto) 0.4, Eosinophils # (Auto) 0.1, Basophils # (Auto) 0.0, Immature Granulocyte # (Auto) 0.0, Sodium Level 138, Potassium Level 4.8, Chloride Level 105, Carbon Dioxide Level 26, Anion Gap 7, Blood Urea Nitrogen 25H, Creatinine 0.79, Estimat Glomerular Filtration Rate 102, BUN/Creatinine Ratio 32, Glucose Level 73, Calcium Level 8.8, Corrected Calcium 9.6, Total Bilirubin 0.3, Aspartate Amino Transf (AST/SGOT) 37H, Alanine Aminotransferase (ALT/SGPT) 45, Alkaline Phosphatase 416H, Total Protein 6.1L, Albumin 3.0L Microbiology 09/09/22 Urine Culture - Final, Complete Pseudomonas aeruginosa Pending Labs Microbiology Date/Time Source Procedure Growth Status 09/09/22 16:40 Urine U Cath,Nos Urine Culture - Final Pseudomonas aeruginosa Complete Laboratory Tests 09/09/22 14:15: White Blood Count 4.8, Red Blood Count 3.45, Hemoglobin 10.9, Hematocrit 33, Mean Corpuscular Volume 95, Mean Corpuscular Hemoglobin 32, Mean Corpuscular Hemoglobin Concent 33, Red Cell Distribution Width 15.9, Platelet Count 205, Mean Platelet Volume 10.0, Immature Granulocyte % (Auto) 0, Neutrophils (%) (Auto) 66, Lymphocytes (%) (Auto) 24, Monocytes (%) (Auto) 8, Eosinophils (%) (Auto) 2, Basophils (%) (Auto) 0, Neutrophils # (Auto) 3.2, Lymphocytes # (Auto) 1.1, Monocytes # (Auto) 0.4, Eosinophils # (Auto) 0.1, Basophils # (Auto) 0.0, Immature Granulocyte # (Auto) 0.0, Sodium Level 136, Potassium Level 4.7, Chloride Level 103, Carbon Dioxide Level 24, Anion Gap 9, Blood Urea Nitrogen 18, Creatinine 0.74, Estimat Glomerular Filtration Rate 104, BUN/Creatinine Ratio 24, Glucose Level 123, Calcium Level 8.7, Corrected Calcium 9.1, Total Eduardo irubin 0.3, Aspartate Amino Transf (AST/SGOT) 29, Alanine Aminotransferase (ALT/SGPT) 53, Alkaline Phosphatase 350, Total Protein 7.0, Albumin 3.5 09/09/22 16:40: Urine Color YELLOW, Urine Clarity CLEAR, Urine pH 6.0, Urine Specific [place] <=1.005, Urine Protein NEGATIVE, Urine Glucose (UA) NEGATIVE, Urine Ketones NEGATIVE, Urine Nitrite POSITIVE, Urine Bilirubin NEGATIVE, Urine Urobilinogen 0.2, Urine Leukocyte Esterase 3+, Urine RBC (Auto) 1+, Urine RBC RARE, Urine WBC 25-50, Urine Squamous Epithelial Cells NONE, Urine Crystals NONE, Urine Bacteria TRACE, Urine Casts NONE, Urine Mucus NEGATIVE, Urine Culture Indicated YES 09/10/22 05:53: White Blood Count 3.6, Red Blood Count 3.39, Hemoglobin 10.9, Hematocrit 32, Mean Corpuscular Volume 95, Mean Corpuscular Hemoglobin 32, Mean Corpuscular Hemoglobin Concent 34, Red Cell Distribution Width 15.8, Platelet Count 180, Mean Platelet Volume 9.7, Immature Granulocyte % (Auto) 1, Neutrophils (%) (Auto) 54, Lymphocytes (%) (Auto) 34, Monocytes (%) (Auto) 9, Eosinophils (%) (Auto) 3, Basophils (%) (Auto) 0, Neutrophils # (Auto) 2.0, Lymphocytes # (Auto) 1.2, Monocytes # (Auto) 0.3, Eosinophils # (Auto) 0.1, Basophils # (Auto) 0.0, Immature Granulocyte # (Auto) 0.0, Sodium Level 142, Potassium Level 4.7, Chloride Level 108, Carbon Dioxide Level 27, Anion Gap 7, Blood Urea Nitrogen 17, Creatinine 0.74, Estimat Glomerular Filtration Rate 104, BUN/Creatinine Ratio 23, Glucose Level 69, Calcium Level 9.1, Corrected Calcium 9.5, Total Bilirubin 0.3, Aspartate Amino Transf (AST/SGOT) 27, Alanine Aminotransferase (ALT/SGPT) 49, Alkaline Phosphatase 391, Total Protein 6.8, Albumin 3.5 09/11/22 05:21: White Blood Count 3.8, Red Blood Count 2.98, Hemoglobin 9.3, Hematocrit 29, Mean Corpuscular Volume 97, Mean Corpuscular Hemoglobin 31, Mean Corpuscular Hemoglobin Concent 32, Red Cell Distribution Width 16.1, Platelet Count 173, Mean Platelet Volume 9.7, Immature Granulocyte % (Auto) 0, Neutrophils (%) (Auto) 53, Lymphocytes (%) (Auto) 34, Monocytes (%) (Auto) 10, Eosinophils (%) (Auto) 2, Basophils (%) (Auto) 1, Neutrophils # (Auto) 2.0, Lymphocytes # (Auto) 1.3, Monocytes # (Auto) 0.4, Eosinophils # (Auto) 0.1, Basophils # (Auto) 0.0, Immature Granulocyte # (Auto) 0.0, Sodium Level 141, Potassium Level 4.4, Chloride Level 109, Carbon Dioxide Level 25, Anion Gap 7, Blood Urea Nitrogen 24, Creatinine 0.79, Estimat Glomerular Filtration Rate 102, BUN/Creatinine Ratio 30, Glucose Level 70, Calcium Level 8.9, Corrected Calcium 9.6, Total Bilirubin 0.3, Aspartate Amino Transf (AST/SGOT) 25, Alanine Aminotransferase (ALT/SGPT) 41, Alkaline Phosphatase 363, Total Protein 6.0, Albumin 3.1 09/12/22 05:45: White Blood Count 4.3, Red Blood Count 3.07, Hemoglobin 9.6, Hematocrit 29, Mean Corpuscular Volume 95, Mean Corpuscular Hemoglobin 31, Mean Corpuscular Hemoglobin Concent 33, Red Cell Distribution Width 15.9, Platelet Count 156, Mean Platelet Volume 9.4, Immature Granulocyte % (Auto) 0, Neutrophils (%) (Auto) 52, Lymphocytes (%) (Auto) 37, Monocytes (%) (Auto) 9, Eosinophils (%) (Auto) 2, Basophils (%) (Auto) 0, Neutrophils # (Auto) 2.2, Lymphocytes # (Auto) 1.6, Monocytes # (Auto) 0.4, Eosinophils # (Auto) 0.1, Basophils # (Auto) 0.0, Immature Granulocyte # (Auto) 0.0, Sodium Level 138, Potassium Level 4.8, Chloride Level 105, Carbon Dioxide Level 26, Anion Gap 7, Blood Urea Nitrogen 25, Creatinine 0.79, Estimat Glomerular Filtration Rate 102, BUN/Creatinine Ratio 32, Glucose Level 73, Calcium Level 8.8, Corrected Calcium 9.6, Total Bilirubin 0.3, Aspartate Amino Transf (AST/SGOT) 37, Alanine Aminotransferase (ALT/SGPT) 45, Alkaline Phosphatase 416, Total Protein 6.1, Albumin 3.0 Discharge Home Medications: Active Scripts Active Levofloxacin 750 Mg Tablet 750 Mg PO DAILY Cephalexin 250 Mg Capsule 250 Mg PO DAILY 7 Days restart on 09/20/22 Reported Gold Rosario Medicated Body (Menthol) 0.8 % Powder 1 Applic TP UD PRN Keppra (Levetiracetam) 100 Mg/Ml Solution 15 Ml PO BID Westab Plus Tablet (Pnv,Calcium 72/Iron/Folic Acid) 27 Mg Iron-1 Mg Tablet 1 Ea ch PO DAILY Omeprazole 40 Mg Capsule.dr 40 Mg PO DAILY Tucks (Witch Cornelia) 50 % Med..pad 1 Each TP QID PRN Nystatin 100,000 Unit/Gram Cream..g. 1 Applic TOP BID PRN Hydrocortisone 1 % Cream..g. 1 Applic TP UD PRN Stimulant Laxative Plus Tablet (Sennosides/Docusate Sodium) 8.6 Mg-50 Mg Tablet 2 Ea PO BID Metronidazole 0.75 % Lotion 1 Applic TOP HS APPLY TO FACE Ketoconazole 2 % Shampoo 1 Applic TOP GROSSMAN,WE APPLY TO FACE Cranberry (Cranberry Extract) 425 Mg Capsule 425 Mg PO BID Citalopram HBr (Citalopram Hydrobromide) 40 Mg Tablet 40 Mg PO DAILY Ciclopirox 8 % Solution 1 Applic TP HS APPLY TO AFFECTED TOENAILS Aripiprazole 10 Mg Tablet 10 Mg PO HS Polyethylene Glycol 3350 17 Gm Powd.pack 17 Gm PO BID Opcon-A Eye Drops (Naphazoline HCl/Pheniramine) 0.40752 %-0.315 % Drops 2 Drops OU UD PRN Calamine Lotion (Calamine/Zinc Oxide) 177 Ml Lotion TP UD PRN Acetaminophen 500 Mg Tablet 500 Mg PO Q6H PRN Instructions to patient/family Please see electronic discharge instructions given to patient. SAMANTHA HANLEY DO Sep 12, 2022 14:51
[2022-09-12 15:56] VITALS: BP 157/91
[2022-09-12] MEDS ORDERED: ENOXAPARIN 40 MG/0.4 ML (LOVENOX) SYR SC SCH (16:30)
[2022-09-12] MEDS ORDERED: CEFEPIME 2,000 MG/NS 50 ML IVPB IV SCH ×2 (21:00)
== END 2022-09-12 16:30 | disposition home or self-care (01) | DRG 699 ==
LOC: EDUNIT# 13:34 → ER 13:36 → 4TH 15:58
PROVIDERS: ADMIT Internal Medicine; ATTEND Internal Medicine
DX: T83.510A Infection and inflammatory reaction due to cystostomy catheter, initial encounter (principal); N39.0 Urinary tract infection, site not specified; B96.5 Pseudomonas (aeruginosa) (mallei) (pseudomallei) as the cause of diseases classified elsewhere; R41.0 Disorientation, unspecified; F32.A Depression, unspecified; F41.9 Anxiety disorder, unspecified; G40.909 Epilepsy, unspecified, not intractable, without status epilepticus; R15.9 Full incontinence of feces; F79 Unspecified intellectual disabilities; F91.8 Other conduct disorders; F22 Delusional disorders; M24.542 Contracture, left hand; M24.541 Contracture, right hand; B91 Sequelae of poliomyelitis; M24.575 Contracture, left foot; M24.574 Contracture, right foot; N32.0 Bladder-neck obstruction; M16.9 Osteoarthritis of hip, unspecified; Z79.899 Other long term (current) drug therapy; Z91.09 Other allergy status, other than to drugs and biological substances
CPT/HCPCS: 36415; 80053; 81000; 85025; 87077; 87088; 87186; 94760

== ENCOUNTER 2022-09-16 07:57 | Emergency (ER) | payer MEDICARE, MEDICAID ==
[~2022-09-16] VITALS: Ht 175 cm; Wt 80.7 kg
[~2022-09-16 07:57] MED LIST changes: +CEPH250C PO; +LEVO750T PO
--- NOTE | 2022-09-16 08:06 | ED General ---
General Chief Complaint: General Problems/Pain Stated Complaint: FALL FROM BED | CATHETER ISSUES History of Present Illness Date Seen by Provider: Sep 16, 2022 Time Seen by Provider: 08:06 Initial Comments 62-year-old male brought in by caregiver. Patient fell out of his bed around 530 this morning. He just cannot rolled over in mechanical fall. He has underlying developmental delay. Has a suprapubic catheter. Noticed that since the fall there was just some mild blood around catheter site and then a little bit of blood in the urine. Otherwise no complaints. Allergies and Home Medications Allergies Coded Allergies: lorazepam (Verified Adverse Reaction, Intermediate, HYPERACTIVITY, 12/07/21) Patient Home Medication List Home Medication List Reviewed: Yes Acetaminophen (Acetaminophen) 500 Mg Tablet, 500 MG PO Q6H PRN for PAIN-MILD (1- 4) OR TEMPATURE, (Reported) Entered as Reported by: HAROLDO STONE on 06/03/16 1413 Aripiprazole (Aripiprazole) 10 Mg Tablet, 10 MG PO HS, (Reported) Entered as Reported by: MAHENDRA SANTOS on 12/21/21 1542 Calamine/Zinc Oxide (Calamine Lotion) 177 Ml Lotion, TP UD PRN for RASH, (Reported) Entered as Reported by: SREE MICHELLE on 07/01/17 0845 Cephalexin (Cephalexin) 250 Mg Capsule, 250 MG PO DAILY Prescribed by: SAMANTHA HANLEY on 09/12/22 1450 Ciclopirox (Ciclopirox) 8 % Solution, 1 APPLIC TP HS, (Reported) Entered as Reported by: MAHENDRA SANTOS on 12/21/21 154 Citalopram Hydrobromide (Citalopram HBr) 40 Mg Tablet, 40 MG PO DAILY, (Repor gilda) Entered as Reported by: MAHENDRA SANTOS on 12/21/21 154 Cranberry Extract (Cranberry) 425 Mg Capsule, 425 MG PO BID, (Reported) Entered as Reported by: MAHENDRA SANTOS on 12/21/21 154 Hydrocortisone (Hydrocortisone) 1 % Cream..g., 1 APPLIC TP UD PRN for RASH AND ITCHING, (Reported) Entered as Reported by: MAHENDRA SANTOS on 12/21/21 154 Ketoconazole (Ketoconazole) 2 % Shampoo, 1 APPLIC TOP GROSSMAN,WE, (Reported) Entered as Reported by: MAHENDRA SANTOS on 12/21/21 1542 Levetiracetam (Keppra) 100 Mg/Ml Solution, 15 ML PO BID, (Reported) Entered as Reported by: MAHENDRA SANTOS on 09/10/22 1027 Levofloxacin (Levofloxacin) 750 Mg Tablet, 750 MG PO DAILY Prescribed by: SAMANTHA HANLEY on 09/12/22 1507 Menthol (Gold Rossi Medicated Body) 0.8 % Powder, 1 APPLIC TP UD PRN for FOOT ODOR & WETNESS, (Reported) Entered as Reported by: MAHENDRA SANTOS on 09/10/22 1027 Metronidazole (Metronidazole) 0.75 % Lotion, 1 APPLIC TOP HS, (Reported) Entered as Reported by: MAHENDRA SANTOS on 12/21/21 1542 Naphazoline HCl/Pheniramine (Opcon-A Eye Drops) 0.71941 %-0.315 % Drops, 2 DROPS OU UD PRN for REDNESS/SWELLING FROM ALLERGY, (Reported) Entered as Reported by: SREE MICHELLE on 07/01/17 0852 Nystatin (Nystatin) 100,000 Unit/Gram Cream..g., 1 APPLIC TOP BID PRN for SCALING RASH, (Reported) Entered as Reported by: MAHENDRA SANTOS on 12/21/21 1542 Omeprazole (Omeprazole) 40 Mg Capsule.dr, 40 MG PO DAILY, (Reported) Entered as Reported by: MAHENDRA SANTOS on 03/18/22 1143 Pnv,Calcium 72/Iron/Folic Acid (Westab Plus Tablet) 27 Mg Iron-1 Mg Tablet, 1 EACH PO DAILY, (Reported) Entered as Reported by: MAHENDRA SANTOS on 07/03/22 1604 Polyethylene Glycol 3350 (Polyethylene Glycol 3350) 17 Gm Powd.pack, 17 GM PO BID, (Reported) Entered as Reported by: IRASEMA HUMPHREY on 09/28/18 1428 Sennosides/Docusate Sodium (Stimulant Laxative Plus Tablet) 8.6 Mg-50 Mg Tablet, 2 EA PO BID, (Reported) Entered as Reported by: MAHENDRA SANTOS on 12/21/21 1542 Witch Cornelia (Tucks) 50 % Med..pad, 1 EACH TP QID PRN for HEMMORRHOID DISCOMFORT, (Reported) Entered as Reported by: MAHENDRA SANTOS on 01/08/22 1133 Discontinued Medications Levetiracetam (Keppra) 100 Mg/Ml Solution, 15 ML PO BID, (Reported) Discontinued Reason: Duplicate Order Entered as Reported by: MAHENDRA SANTOS on 07/03/22 1604 Menthol (Gold Rossi Medicated Body) 0.8 % Powder, 1 APPLIC TP UD PRN for FOOT ODOR AND WETNESS, (Reported) Discontinued Reason: Duplicate Order Entered as Reported by: MAHENDRA SANTOS on 12/21/21 1542 Nitrofurantoin Monohyd/M-Cryst (Macrobid 100 mg Capsule) 100 Mg Capsule, 1 TAB PO DAILY Discontinued Reason: No Longer Taking Prescribed by: SETH CANALES on 07/16/22 1003 Review of Systems Review of Systems Constitutional: see HPI EENTM: no symptoms reported Respiratory: no symptoms reported Cardiovascular: no symptoms reported Gastrointestinal: no symptoms reported Genitourinary: see HPI Musculoskeletal: no symptoms reported Skin: see HPI Psychiatric/Neurological: No Symptoms Reported Hematologic/Lymphatic: No Symptoms Reported Past Vhmxjzd-[id number]-Uhlisi Hx Immunizations Up To Date Tetanus Booster (TDap): Less than 5yrs PED Vaccines UTD: No Seasonal Allergies Seasonal Allergies: Yes Past Medical History Surgery/Hospitalization HX: See history Resp. 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;MR; POST POLIO) Developmental Disorder, Seizure Disorder Sexually Transmitted Disease: No HIV/AIDS: No Genitourinary: Yes Prostate Problems, UTI-Chronic Gastrointestinal: Yes (S/P MATILDE) Chronic Constipation, Chronic Diarrhea, Gall Bladder Disease Musculoskeletal: Yes (CONTRACTURES OF HANDS AND FEET; NON-AMBULATORY) Fractures, Contracture Endocrine: No HEENT: No Loss of Vision: Denies Hearing Impairment: Denies Cancer: No Psychosocial: Yes (MR, SEVERE ADAPTIVE BEHAVIOR DISORDER, CONVULSIONS, DELUSIONAL DISORDER) Anxiety Integumentary: No Blood Disorders: Yes (ANEMIA) Adverse Reaction/Blood Tranf: No Family Medical History PAST SURGICAL HISTORY: -SURGERY ON ALL LEFT TOES -EGD'S/COLONSCOPIES -RIGHT FEMUR FX/ORIF -PROSTATE SURGERY ADDITIONAL PMH: -POST POLIO SYNDROME WITH LEFT SIDED CONTRACTURES, 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 1.0oz. [id number]; 24.89 BMI Method:Stated General Appearance: No Apparent Distress, WD/WN, Other (At baseline, developmental delay) Respiratory: Lungs Clear, Normal Breath Sounds Cardiovascular: Regular Rate, Rhythm, Normal Peripheral Pulses Gastrointestinal: Non Tender, Soft, Other (Suprapubic catheter in place with mild bleeding around catheter site. Draining appropriately, mild hematuria) Extremity: Normal Capillary Refill Neurologic/Psychiatric: Other (At baseline) Procedures/Interventions Date of ETT Placement: Apr 01, 2022 Time of ETT Placement: 2126 Progress/Results/Core Measures Suspected Sepsis SIRS Temperature: Pulse: Respiratory Rate: Blood Pressure / Mean: Results/Orders Vital Signs/I&O Capillary Refill : Progress Note : Progress Note Patient with mechanical fall from bed but no complaints besides urinary catheter. There is some small amount of dried blood around the catheter entry site but it is in place. There is no active bleeding. Patient's catheter is working appropriately. It was flushed to ensure proper work. There is some mild hematuria. Discussed with caregiver to just monitor to ensure that continues to work properly and not clot off. At this time no imaging or other indications for testing. They are to return if it develops clots or obstruction. Patient was stable and discharged Departure Impression Primary Impression: Encounter for suprapubic catheter care Disposition: HOME, SELF-CARE Condition: Stable Departure-Patient Inst. Referrals: SETH CANALES DO (PCP/Family) Primary Care Physician Patient Instructions: How to Care for Your Ostomy, Adult Add. Discharge Instructions: Please monitor ostomy site to ensure no further bleeding or changes. Keep clean with warm soapy water. Monitor catheter to ensure that continues to work properly. Return to the ER with any concerns. Follow-up with your primary care provider as needed All discharge instructions reviewed with patient and/or family. Voiced understanding. ISAI ROSSI DO Sep 16, 2022 08:06
[2022-09-16 08:18] VITALS: BP 108/54
== END 2022-09-16 08:18 | disposition home or self-care (01) ==
LOC: EDUNIT# 07:57 → ER 07:59
DX: Z46.6 Encounter for fitting and adjustment of urinary device (principal); R31.9 Hematuria, unspecified; W06.XXXA Fall from bed, initial encounter
CPT/HCPCS: 99282